=== PATIENT | female | born 1940 | race Caucasian/White ===

== ENCOUNTER 2018-09-03 10:21 | Inpatient (IN) | payer MEDICARE, OTHER ==
[2018-09-03] MEDS ORDERED: Metoprolol Tartrate 25 MG Tab PO ONE (10:40)
[2018-09-03] MEDS ORDERED: HYDROmorphone 0.5 MG/0.5 ML Syringe IVPUSH ONE ×4 (10:47→12:39)
--- NOTE | 2018-09-03 10:53 | EDM.PDOC ---
ED HPI GENERAL MEDICAL PROBLEM - General Chief Complaint: Abdominal Pain Stated Complaint: STOMACH PAIN Time Seen by Provider: 09/03/18 10:35 Source of Information: Reports: Patient, Old Records, RN History Limitations: Reports: No Limitations - History of Present Illness INITIAL COMMENTS - FREE TEXT/NARRATIVE: 77 yo female presents with fairly constant low abd pain for the past ~36 hrs. No fever or nausea. Pain is worse with movement. No hx of any abdominal surgeries. Has tried Peptobismol and LEE ANN's without relief. No urinary sx's. Got partial relief with IV analgesia in the ambulance. Onset: Sudden Onset Date: 09/02/18 Duration: Day(s): (1.5), Constant Location: Reports: Abdomen Quality: Reports: Ache Severity: Severe Improves with: Reports: Medication Worsens with: Reports: Movement Context: Reports: Other (See HPI) Associated Symptoms: Reports: Fever/Chills (chills, no fever). Denies: Nausea/ Vomiting Treatments KNIFER UP: Reports: Other (see below) (antacids with no relief) abd Pain Score (Numeric/FACES): 7 - Related Data Allergies Allergy/AdvReac Type Severity Reaction Status Date / Time naproxen [From Aleve] Allergy Nausea and Verified 09/03/18 10:51 Vomiting Home Meds: Home Meds Alendronate Sodium 70 mg PO DAILY 09/03/18 [History] Benazepril [Lotensin] 40 mg PO ASDIRECTED 09/03/18 [History] Citalopram [Citalopram HBr] 20 mg PO DAILY 09/03/18 [History] Metoprolol Tartrate 25 mg PO BID 09/03/18 [History] Past Medical History Cardiovascular History: Reports: Hypertension 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 Denies: Fever HEENT: Reports: No Symptoms Respiratory: Reports: No Symptoms Cardiovascular: Reports: No Symptoms Endocrine: Reports: No Symptoms GI/Abdominal: Reports: Abdominal Pain. Denies: Black Stool, Bloody Stool, Constipation, Diarrhea, Distension, Hematemesis, Hematochezia, Melena, Vomiting : Reports: No Symptoms Musculoskeletal: Reports: No Symptoms Skin: Reports: No Symptoms Neurological: Reports: No Symptoms ED EXAM, GI/ABD - Physical Exam Exam: See Below Exam Limited By: No Limitations General Appearance: Alert, WD/WN, Mild Distress, Thin Eyes: Bilateral: Normal Appearance Ears: Normal External Exam, Normal Canal, Hearing Grossly Normal Nose: Normal Inspection, No Blood Throat/Mouth: Normal Inspection, Normal Lips, Normal Oropharynx, Normal Voice, No Airway Compromise Head: Atraumatic, Normocephalic Neck: Normal Inspection Respiratory/Chest: No Respiratory Distress, Lungs Clear, Normal Breath Sounds, No Accessory Muscle Use Cardiovascular: Regular Rate, Rhythm, No Edema GI/Abdominal Exam: Soft, Tender (lower abdominal tenderness.), Abnormal Bowel Sounds (decreased). No: Non-Tender, No Distention, Distended, Guarding, Rigid, Rebound Back Exam: Normal Inspection. No: CVA Tenderness (R), CVA Tenderness (L) Extremities: Normal Inspection, Normal Range of Motion, Non-Tender, No Pedal Edema Neurological: Alert, Oriented, CN II-XII Intact, Normal Cognition, No Motor/ Sensory Deficits Psychiatric: Normal Affect, Normal Mood Skin Exam: Warm, Dry, Intact, Normal Color, No Rash Course - Vital Signs Text/Narrative:: Dr. Estrada called @ 12:35p Dr. Cunningham called @ 12:44p Last Recorded V/S: Last Vital Signs Temp 35.8 C 09/03/18 10:27 Pulse 106 H 09/03/18 11:00 Resp 16 09/03/18 11:12 BP 141/64 H 09/03/18 11:12 Pulse Ox 98 09/03/18 11:12 - Orders/Labs/Meds Orders: Active Orders 24 hr Category Date Time Status Abdomen Pelvis wo Cont [CT] Stat Exams 09/03/18 11:19 Taken CULTURE BLOOD [BC] Stat Lab 09/03/18 12:10 Received CULTURE BLOOD [BC] Stat Lab 09/03/18 12:20 Received Piperacillin/Tazobactam [Zosyn] 4.5 gm Med 09/03/18 12:37 Ordered Sodium Chloride 0.9% [Normal Saline] 100 ml IV ONETIME Labs: Laboratory Tests 09/03/18 09/03/18 09/03/18 Range/Units 10:57 10:57 12:10 WBC 1.9 L (4.5-11.0) K/uL RBC 3.19 L (3.30-5.50) M/uL Hgb 11.2 L (12.0-15.0) g/dL Hct 33.0 L (36.0-48.0) % MCV 103 H (80-98) fL MCH 35 H (27-31) pg MCHC 34 (32-36) % Plt Count 285 (150-400) K/uL Sodium 130 L (140-148) mmol/L Potassium 3.9 (3.6-5.2) mmol/L Chloride 91 L (100-108) mmol/L Carbon Dioxide 24 (21-32) mmol/L Anion Gap 18.9 H (5.0-14.0) mmol/L BUN 24 H (7-18) mg/dL Creatinine 1.6 H (0.6-1.0) mg/dL Est Cr Clr Drug Dosing 20.75 mL/min Estimated GFR (MDRD) 31 L (>60) Glucose 111 H (74-106) mg/dL Lactic Acid 4.3 H (0.7-2.1) mmol/L Calcium 9.5 (8.5-10.1) mg/dL C-Reactive Protein 27.96 H (0.0-0.3) mg/dL Meds: Medications Discontinued Medications Generic Name Dose Route Start Last Admin Trade Name Freq PRN Reason Stop Dose Admin Benazepril HCl 40 mg 09/03/18 10:40 09/03/18 11:00 Lotensin PO 09/03/18 10:41 40 mg ONETIME ONE Administration Hydromorphone HCl 0.5 mg 09/03/18 10:47 09/03/18 11:00 Dilaudid IVPUSH 09/03/18 10:48 0.5 mg ONETIME ONE Administration Hydromorphone HCl 0.5 mg 09/03/18 11:21 09/03/18 11:25 Dilaudid IVPUSH 09/03/18 11:22 0.5 mg ONETIME ONE Administration Hydromorphone HCl 0.5 mg 09/03/18 12:09 09/03/18 12:12 Dilaudid IVPUSH 09/03/18 12:10 0.5 mg ONETIME ONE Administration Sodium Chloride 1,000 mls @ 1,000 mls/hr 09/03/18 11:18 09/03/18 11:25 Normal Saline IV 09/03/18 12:17 1,000 mls/hr .BOLUS ONE Administration Metoprolol Tartrate 25 mg 09/03/18 10:40 09/03/18 11:00 Lopressor PO 09/03/18 10:41 25 mg ONETIME ONE Administration - Radiology Interpretation Free Text/Narrative:: CT abd/pelvis with IV contrast-small amt of free air LUQ, stranding diffusely. CT Results Date: 09/03/18 Departure - Departure Time of Disposition: 13:00 Disposition: Admitted As Inpatient 65 Condition: Serious Clinical Impression: Hyponatremia Diverticulitis of colon with perforation Qualifiers: Diverticulitis bleeding: without bleeding Qualified Code(s): K57.20 - Diverticulitis of large intestine with perforation and abscess without bleeding Sepsis Qualifiers: Sepsis type: sepsis due to unspecified organism Qualified Code(s): A41.9 - Sepsis, unspecified organism Leukopenia Qualifiers: Leukopenia type: neutropenia Neutropenia type: other Qualified Code(s): D70.8 - Other neutropenia - Discharge Information *PRESCRIPTION DRUG MONITORING PROGRAM REVIEWED*: No *COPY OF PRESCRIPTION DRUG MONITORING REPORT IN PATIENT ESTIVEN: No Referrals: PCP,None [Primary Care Provider] - Forms: ED Department Discharge - My Orders Last 24 Hours: My Active Orders 09/03/18 11:19 Abdomen Pelvis wo Cont [CT] Stat 09/03/18 12:10 CULTURE BLOOD [BC] Stat 09/03/18 12:20 CULTURE BLOOD [BC] Stat 09/03/18 12:37 Piperacillin/Tazobactam [Zosyn] 4.5 gm Sodium Chloride 0.9% [Normal Saline] 100 ml IV ONETIME - Assessment/Plan Last 24 Hours: My Active Orders 09/03/18 11:19 Abdomen Pelvis wo Cont [CT] Stat 09/03/18 12:10 CULTURE BLOOD [BC] Stat 09/03/18 12:20 CULTURE BLOOD [BC] Stat 09/03/18 12:37 Piperacillin/Tazobactam [Zosyn] 4.5 gm Sodium Chloride 0.9% [Normal Saline] 100 ml IV ONETIME
[2018-09-03] MEDS ORDERED: Sodium Chloride 0.9% 1,000 ML IV ONE (11:18)
[2018-09-03] MEDS ORDERED: Piperacillin/Tazobactam 4.5 GM in Sodium Chloride 0.9% 100 ML IV ONE (12:37)
--- NOTE | 2018-09-03 12:44 | CRLCT ---
Examination / Procedure: CT Abdomen/Pelvis Indication: Lower abdominal pain. Comparison: None available Technique: Contiguous axial CT images of the abdomen and pelvis were acquired without IV contrast. Coronal and sagittal reformations generated and reviewed. Findings: Small volume ascites. There is a few foci of free air are identified in the left upper quadrant (axial images 35-42). A few additional foci of free air are noted in the mesentery anterior to the duodenum (images 65-70). There is diverticulosis noted in the sigmoid colon. There is extensive fat stranding in the pelvis with wall thickening of the rectum and sigmoid colon (especially images 109-112). In the cul-de-sac (axial image 118 and coronal image 47), there is a small fluid collection noted. This could be a small amount of ascites. An abscess is not excluded. No pneumatosis is identified. No portal venous gas. Lack of IV contrast limits evaluation of solid abdominal organs. Liver, gallbladder, spleen, pancreas, adrenal glands, and kidneys are unremarkable for noncontrast technique. Extensive aortic atherosclerosis without aneurysm. No definite adenopathy by CT size criteria. Presence of ascites limits evaluation for subtle mesenteric lymphadenopathy. Urinary bladder is unremarkable. Uterus is normal. Limited images of the lung bases demonstrate mild bibasilar atelectasis. A few old fractures are noted in the 12, 11, and 10 posterior right ribs. There is a mild compression deformity of the T12 vertebral body which appears to be chronic. L4-L5 and L5-S1 degenerative disc disease. No acute or aggressive osseous abnormality. Impression: 1. Multiple foci of pneumoperitoneum and small volume free fluid. This is concerning for a perforated viscus. The site of perforation is not clearly identified. There is some bowel wall thickening in the rectum/sigmoid colon suggesting that this could be due to a perforated diverticulitis. 2. Small collection of fluid in the cul-de-sac. While this could be ascites, an abscess is another consideration especially considering concern for perforated diverticulitis. 3. Free air discussed with Dr. Blood at 1235. Please note that all CT scans at this facility use dose modulation, iterative reconstruction, and/or weight-based dosing when appropriate to reduce radiation dose to as low as reasonably achievable. Dictated by Kevin Cerna MD @ Sep 03 2018 12:27PM Signed by Dr. Kevin Cerna @ Sep 03 2018 12:42PM
[2018-09-03] MEDS ORDERED: HYDROmorphone 1 MG/ML Syringe IVPUSH ONE (12:56)
[2018-09-03] MEDS ORDERED: Piperacillin/Tazobactam/Dext 4.5 GM in Premix Bag 1 BAG IV ONE (13:00)
[2018-09-03] MEDS ORDERED: Sodium Chloride 0.9% 1,000 ML IV SCH (13:00)
[2018-09-03] MEDS ORDERED: fentaNYL 100 MCG/2 ML SDV IVPUSH ONE (13:56)
--- NOTE | 2018-09-03 14:09 | PCM.HP ---
H&P History of Present Illness - General Date of Service: 09/03/18 Admit Problem/Dx: Admission Diagnosis/Problem Admission Diagnosis/Problem Perforation of intestine Source of Information: Patient, Family, Provider History Limitations: Reports: No Limitations - History of Present Illness Initial Comments - Free Text/Narative: Tina presents to the emergency room via ambulance with abdominal pain. She reports 36 hours of progressive continuous achy lower abdominal pain. Initially started out as fairly mild but has progressed to the point that it's severe. The pain radiates throughout her abdomen. It is worse with any sort of movement and was worse when the ambulance was hitting bumps. She did try Tums and Pepto- Bismol without any relief. She has never had pain like this in the past. She reports associated fevers as well as shaking chills. She has had nausea and dry heaving. She's had diarrhea for the past day and a half. She hasn't had anything to eat for 2 days. No complaints of chest pain or shortness of breath. No obvious sick contacts. No history of diverticulitis. She has had surgery in the past has never had difficulty with anesthesia. Workup in the emergency room was suggestive of sepsis with tachycardia, acute kidney injury and CT scan suggested perforated abdominal viscus. She will be admitted to the intensive care unit with surgery planned for later in the day. 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: Reports: Chronic Constipation 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 Pertinent positives and negatives are noted in the history of present illness. All other systems were reviewed and were negative except as noted. Exam - Exam Exam: See Below - Vital Signs Vital Signs: Last Vital Signs Temp 35.8 C 09/03/18 10:27 Pulse 107 H 09/03/18 13:09 Resp 18 09/03/18 13:09 BP 93/54 L 09/03/18 13:09 Pulse Ox 92 L 09/03/18 13:09 Weight: 45.359 kg - Exam Quality Assessment: Supplemental Oxygen General: Alert, Oriented, Cooperative, Mild Distress HEENT: Conjunctiva Clear. No: Mucosa Moist & Glide (dry), Scleral Icterus Neck: Supple, Trachea Midline. No: Lymphadenopathy Lungs: Clear to Auscultation, Normal Respiratory Effort Cardiovascular: Regular Rate, Regular Rhythm. No: Systolic Murmur GI/Abdominal Exam: Guarding, Tender, Abnormal Bowel Sounds (hypoactive). No: Distended Back Exam: Normal Inspection, Full Range of Motion Extremities: No Pedal Edema. No: Increased Warmth Peripheral Pulses: 2+: Dorsalis Pedis (L), Dorsalis Pedis (R) Skin: Warm, Dry Neuro Extensive - Mental Status: Alert, Oriented x3, Nl Response to Commands Neuro Extensive - Motor, Sensory, Reflexes: No: Dysarthria, Abnormal Motor, Tremor Psychiatric: Alert, Normal Affect - Patient Data Lab Results Last 24 hrs: Laboratory Results - last 24 hr 09/03/18 09/03/18 09/03/18 Range/Units 10:57 10:57 12:10 WBC 1.9 L (4.5-11.0) K/uL RBC 3.19 L (3.30-5.50) M/uL Hgb 11.2 L (12.0-15.0) g/dL Hct 33.0 L (36.0-48.0) % MCV 103 H (80-98) fL MCH 35 H (27-31) pg MCHC 34 (32-36) % Plt Count 285 (150-400) K/uL Sodium 130 L (140-148) mmol/L Potassium 3.9 (3.6-5.2) mmol/L Chloride 91 L (100-108) mmol/L Carbon Dioxide 24 (21-32) mmol/L Anion Gap 18.9 H (5.0-14.0) mmol/L BUN 24 H (7-18) mg/dL Creatinine 1.6 H (0.6-1.0) mg/dL Est Cr Clr Drug Dosing 20.75 mL/min Estimated GFR (MDRD) 31 L (>60) Glucose 111 H (74-106) mg/dL Lactic Acid 4.3 H (0.7-2.1) mmol/L Calcium 9.5 (8.5-10.1) mg/dL C-Reactive Protein 27.96 H (0.0-0.3) mg/dL Result Diagrams: 09/03/18 10:57 09/03/18 10:57 Joseph Results Last 24 hrs: Microbiology 09/03/18 10:47 Stool Occult Blood (JOSEPH) - Final Stool / Feces - Stool, Formed NEGATIVE OCCULT BLOOD Imaging Impressions Last 24 hrs: CT scan of the abdomen and pelvis - these images were personally reviewed - there is evidence for pneumoperitoneum with multiple air bubbles noted in the left upper quadrant area. There is stranding around the rectum and sigmoid colon in the left lower abdomen. There is a small amount of fluid in the cul-de- sac. *Q Meaningful Use (ADM) - VTE *Q VTE Pharmacological Contraindications *Q: Patient Scheduled Surgery - VTE Risk Assess *Q Each Risk Factor Represents 1 Point: None Total Score 1 Point Risk Factors: 0 Each Risk Factor Represents 2 Points: Malignancy (present or previous), Major surgery greater than 45 minutes Total Score 2 Point Risk Factors: 4 Each Risk Factor Represents 3 Points: Age 75 Years or Greater Total Score 3 Point Risk Factors: 3 Each Risk Factor Represents 5 Points: None Total Score 5 Point Risk Factors: 0 Venous Thromboembolism Risk Factor Score *Q: 7 - Problem List (1) Diverticulitis of colon with perforation SNOMED Code(s): 16585450 ICD Code: K57.20 - DVTRCLI OF LG INT W PERFORATION AND ABSCESS W/O BLEEDING Status: Acute Current Visit: Yes Qualifiers: Diverticulitis bleeding: without bleeding Qualified Code(s): K57.20 - Diverticulitis of large intestine with perforation and abscess without bleeding (2) Sepsis SNOMED Code(s): 68490060 ICD Code: A41.9 - SEPSIS, UNSPECIFIED ORGANISM Status: Acute Current Visit: Yes Qualifiers: Sepsis type: sepsis due to unspecified organism Qualified Code(s): A41.9 - Sepsis, unspecified organism (3) Acute kidney injury SNOMED Code(s): 29504688 ICD Code: N17.9 - ACUTE KIDNEY FAILURE, UNSPECIFIED Status: Acute Current Visit: Yes (4) Leukopenia SNOMED Code(s): 40676946, 673270999 ICD Code: D72.819 - DECREASED WHITE BLOOD CELL COUNT, UNSPECIFIED Status: Acute Current Visit: Yes Qualifiers: Leukopenia type: neutropenia Neutropenia type: other Qualified Code(s): D70.8 - Other neutropenia Problem List Initiated/Reviewed/Updated: Yes Orders Last 24hrs: Active Orders 24 hr Category Date Time Status Patient Status Manage Transfer [TRANSFER] Routine ADT 09/03/18 13:57 Ordered CULTURE BLOOD [BC] Stat Lab 09/03/18 12:10 Received CULTURE BLOOD [BC] Stat Lab 09/03/18 12:20 Received UA W/MICROSCOPIC [URIN] Stat Lab 09/03/18 13:14 Ordered Sodium Chloride 0.9% [Normal Saline] 1,000 ml Med 09/03/18 13:00 Active IV ASDIRECTED Resuscitation Status Routine Resus Stat 09/03/18 13:59 Ordered Medication Orders Sodium Chloride (Normal Saline) 1,000 mls @ 500 mls/hr IV ASDIRECTED NAHED Last Admin: 09/03/18 13:00 Dose: 500 mls/hr Assessment/Plan Comment:: ASSESSMENT AND PLAN - Perforated abdominal viscus with sepsis - perforated diverticulitis is suspected. Evidence for sepsis includes tachycardia, lactic acidosis and acute kidney injury. With the ruptured viscus somewhat urgent surgery will be required. She has received her 30 mL/kg bolus of IV fluids and has received broad-spectrum antibiotics. Cultures have been obtained. -Continue Pip/Tazo -Continue IV fluids -Repeat lactic acid level -Surgical consultation for intervention later this afternoon -Pain control with fentanyl -Follow-up cultures Acute kidney injury - likely related to sepsis and should improve with IV fluids. -Repeat labs in the morning Leukopenia - probably related to sepsis. 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 Maintenance issues - - DVT prophylaxis - mechanical - GI prophylaxis - PPI - Nutrition - nothing by mouth - Rubin catheter - will be placed for strict intake and output monitoring and a critical patient CODE STATUS - full code Admission justification - This patient will be admitted for inpatient services and is medically appropriate meeting medical necessity for inpatient admission as outlined in my documentation. I reasonably expect the patient will require inpatient services that span a period time over 2 midnights. I reasonably expect this patient to be discharged or transferred within 96 hours [address] admission to the [facility]. Disposition - I would anticipate discharge home after the hospital stay Primary care physician - Suzanne Cunningham M.D.
[2018-09-03] MEDS ORDERED: Acetaminophen 650 MG Supp RECTAL PRN (14:37)
[2018-09-03] MEDS ORDERED: Albuterol 0.083% 2.5 MG/3 ML Neb Soln NEB PRN (14:37)
[2018-09-03] MEDS ORDERED: Ondansetron 4 MG Tab.DIS PO PRN (14:37)
[2018-09-03] MEDS ORDERED: Acetaminophen 325 MG Tab PO PRN (14:37)
[2018-09-03] MEDS ORDERED: LORazepam 2 MG/ML SDV IVPUSH PRN (14:37)
[2018-09-03] MEDS ORDERED: Lactated Ringers 1,000 ML IV SCH ×2 (14:37→22:00)
[2018-09-03] MEDS ORDERED: Ondansetron 4 MG/2 ML SDV IV PRN (14:37)
[2018-09-03] MEDS ORDERED: fentaNYL 100 MCG/2 ML SDV IVPUSH PRN (14:37)
[2018-09-03] MEDS ORDERED: Succinylcholine 200 MG/10 ML MDV ONE (14:40)
[2018-09-03] MEDS ORDERED: Ondansetron 4 MG/2 ML SDV ONE (14:40)
[2018-09-03] MEDS ORDERED: fentaNYL 250 MCG/5 ML SDV ONE (14:40)
[2018-09-03] MEDS ORDERED: Glycopyrrolate 0.2 MG/ML 5 ML MDV ONE (14:40)
[2018-09-03] MEDS ORDERED: Propofol 200 MG/20 ML SDV ONE (14:40)
[2018-09-03] MEDS ORDERED: Rocuronium 50 MG/5 ML Vial ONE (14:40)
[2018-09-03] MEDS ORDERED: Dexamethasone 4 MG/ML SDV ONE (14:40)
[2018-09-03] MEDS ORDERED: Neostigmine Methylsulfate 1 MG/ML 5 ML Syringe ONE (14:40)
[2018-09-03] MEDS ORDERED: Aztreonam 2 GM in Sodium Chloride 0.9% 100 ML IV ONE (15:00)
[2018-09-03] MEDS ORDERED: Naloxone 0.4 MG/ML SDV IV PRN (15:15)
[2018-09-03] MEDS: HYDROmorphone/Normal Saline 15 MG/30 ML PCA IV PRN (15:28)
[2018-09-03] MEDS ORDERED: Pantoprazole 40 MG Vial IV SCH (16:00)
[2018-09-03] MEDS ORDERED: Meropenem 500 MG in Sodium Chloride 0.9% 50 ML IV ONE (17:00)
[2018-09-03] MEDS ORDERED: Albuterol/Ipratropium 3.0-0.5 MG/3 ML Neb Soln INH ONE (17:00)
[2018-09-03] MEDS ORDERED: Ropivacaine 22 ML, dexAMETHasone 8 MG, EPINEPHrine 0.4 MG, Sodium Chloride 0.9% 55.6 ML NERVRT SCH ×4 (17:00)
[2018-09-03] MEDS ORDERED: Meropenem 500 MG SDV ONE ×3 (17:53→18:17)
[2018-09-03] MEDS ORDERED: Heparin Sodium 5,000 Units/ML Vial ONE (18:31)
[2018-09-03] MEDS ORDERED: Sodium Chloride 0.9% 500 ML ONE (18:32)
[2018-09-03] MEDS ORDERED: Piperacillin/Tazobactam 3.375 GM in Sodium Chloride 0.9% 50 ML IV SCH (20:00)
[2018-09-03] MEDS ORDERED: Piperacillin/Tazobactam/Dext 3.375 GM in Premix Bag 1 BAG IV SCH (20:00)
--- NOTE | 2018-09-03 21:19 | CRLCR ---
INDICATION: assess ett [facility] INDICATION: Assess ET tube position TECHNIQUE: Chest 1 view. 8:44 p.m. COMPARISON: 11:51 a.m. FINDINGS: Cardiovascular and mediastinum: Heart size and vasculature are normal in caliber and appearance. Mediastinum is within normal limits. Lungs and pleural space: Lungs are clear. No sign of infiltrate or mass. Small bilateral pleural effusions. No pneumothorax. Bones and soft tissues: No significant findings. Lines and tubes: ET tube in place with the tip 2.5 centimeters from the pham. Enteric tube courses past the GE junction, the tip is not seen. IMPRESSION: ETT in place with the tip 2.5 centimeters from the pham. Small bilateral pleural effusions. Dictated by Vlad Kline MD @ 09/03/2018 9:17:33 PM Dictated by: Vlad Kline MD @ 09/03/2018 21:17:52 (Electronically Signed)
[2018-09-03] MEDS ORDERED: hydrOXYzine HCl 100 MG/2 ML SDV IM PRN (21:38)
[2018-09-03] MEDS ORDERED: Aztreonam/Dextrose-Water 1 GM in Premix Bag 1 BAG IV SCH (22:00)
[2018-09-03] MEDS ORDERED: Sodium Chloride 0.9% 50 ML ONE (22:00)
[2018-09-03] MEDS: Aztreonam/Dextrose-Water 1 GM in Premix Bag 1 BAG IV SCH (22:18)
[2018-09-03] MEDS ORDERED: Dextrose 5%-Lactated Ringers 1,000 ML IV PRN (22:41)
[2018-09-03] MEDS: Meropenem 500 MG in Sodium Chloride 0.9% 50 ML IV SCH (22:50)
[2018-09-03] MEDS: Pantoprazole 40 MG Vial IV SCH (22:50)
[2018-09-04] MEDS ORDERED: Lactated Ringers 500 ML IV SCH ×4 (01:15→16:45)
[2018-09-04] MEDS: Dextrose 5%-Lactated Ringers 1,000 ML IV SCH (04:19)
--- NOTE | 2018-09-04 05:21 | CRLCR ---
INDICATION: Intubation TECHNIQUE: Chest 1 views COMPARISON: Chest x-ray 09/03/2018 FINDINGS: Cardiovascular and mediastinum: Normal heart size with atherosclerotic calcification. Endotracheal tube at the mid to distal trachea. Nasogastric tube extends below the hemidiaphragm. Lungs and pleural spaces: Trace bilateral pleural fluid with minimal bibasilar airspace disease. Bones and soft tissues: Old right-sided rib fractures. IMPRESSION: 1. Endotracheal tube at the mid to distal trachea. Nasogastric tube extends below the hemidiaphragm. 2. Trace bilateral pleural effusions with minimal bibasilar airspace disease. Dictated by Keven Cronin MD @ Sep 04 2018 5:14AM Signed by Dr. Keven Cronin @ Sep 04 2018 5:19AM
[2018-09-04] MEDS: Meropenem 500 MG in Sodium Chloride 0.9% 50 ML IV SCH ×3 (05:23→21:09)
[2018-09-04] MEDS: Aztreonam/Dextrose-Water 1 GM in Premix Bag 1 BAG IV SCH ×3 (07:30→17:05)
--- NOTE | 2018-09-04 09:07 | PCM.PN ---
- General Info Date of Service: 09/04/18 Subjective Update: The patient underwent exploratory laparotomy and had a sigmoid colon resection and colostomy formation last night for perforated diverticulitis. She remained intubated overnight and is alert and interactive but disoriented. She appears to be uncomfortable with abdominal pain. She did not have fevers overnight. Gram stain from the fluid sampled from her abdomen has a few gram-positive cocci and gram-negative rods. She is currently requiring minimal ventilatory support. She is mildly tachycardic. Blood pressure stable. Functional Status: Reports: Pain Controlled - Review of Systems General: Reports: Other (intubated ). Denies: Fever - Patient Data Vitals - Most Recent: Last Vital Signs Temp 37.2 C 09/04/18 08:00 Pulse 113 H 09/04/18 08:00 Resp 14 09/04/18 08:00 BP 108/39 L 09/04/18 08:00 Pulse Ox 97 09/04/18 08:00 Weight - Most Recent: 45.359 kg I&O - Last 24 Hours: Intake & Output 09/03/18 09/04/18 09/04/18 22:59 06:59 14:59 Intake Total 1200 2810 Output Total 125 135 25 Balance 1075 2675 -25 Lab Results Last 24 Hours: Laboratory Results - last 24 hr 09/03/18 09/03/18 09/03/18 Range/Units 10:57 10:57 12:10 WBC 1.9 L (4.5-11.0) K/uL RBC 3.19 L (3.30-5.50) M/uL Hgb 11.2 L (12.0-15.0) g/dL Hct 33.0 L (36.0-48.0) % MCV 103 H (80-98) fL MCH 35 H (27-31) pg MCHC 34 (32-36) % Plt Count 285 (150-400) K/uL Puncture Site ABG pH (7.350-7.450) ABG pCO2 (35.0-42.0) mmHg ABG pO2 (75.0-100.0) mmHg ABG HCO3 (22.0-26.0) mmol/L ABG Total CO2 (21.0-25.0) mmol/L ABG O2 Saturation (95.0-98.0) % ABG O2 Content (15.0-23.0) %vol ABG Base Excess mm/L ABG Hemoglobin (12.0-16.0) g/dL ABG Oxyhemoglobin % ABG Carboxyhemoglobin (0.0-1.6) % ABG Methemoglobin % Woody Test O2 Delivery Device Oxygen Flow Rate L Sodium 130 L (140-148) mmol/L Potassium 3.9 (3.6-5.2) mmol/L Chloride 91 L (100-108) mmol/L Carbon Dioxide 24 (21-32) mmol/L Anion Gap 18.9 H (5.0-14.0) mmol/L BUN 24 H (7-18) mg/dL Creatinine 1.6 H (0.6-1.0) mg/dL Est Cr Clr Drug Dosing 20.75 mL/min Estimated GFR (MDRD) 31 L (>60) Glucose 111 H (74-106) mg/dL Lactic Acid 4.3 H (0.7-2.1) mmol/L Calcium 9.5 (8.5-10.1) mg/dL Phosphorus (2.5-4.9) mg/dL Magnesium (1.8-2.4) mg/dL Total Bilirubin (0.2-1.0) mg/dL Direct Bilirubin (0.0-0.2) mg/dL Indirect Bilirubin AST (15-37) U/L ALT (12-78) U/L Alkaline Phosphatase (46-116) U/L Lactate Dehydrogenase (82-234) U/L C-Reactive Protein 27.96 H (0.0-0.3) mg/dL NT-Pro-B Natriuret Pep (5-450) pg/mL Total Protein (6.4-8.2) g/dL Albumin (3.4-5.0) g/dL Globulin (2.3-3.5) g/dL Albumin/Globulin Ratio (1.2-2.2) 09/03/18 09/03/18 09/03/18 Range/Units 15:54 20:40 22:00 WBC (4.5-11.0) K/uL RBC (3.30-5.50) M/uL Hgb (12.0-15.0) g/dL Hct (36.0-48.0) % MCV (80-98) fL MCH (27-31) pg MCHC (32-36) % Plt Count (150-400) K/uL Puncture Site A-line ABG pH 7.331 L (7.350-7.450) ABG pCO2 39.2 (35.0-42.0) mmHg ABG pO2 103.0 H (75.0-100.0) mmHg ABG HCO3 20.2 L (22.0-26.0) mmol/L ABG Total CO2 18.7 L (21.0-25.0) mmol/L ABG O2 Saturation 97.0 (95.0-98.0) % ABG O2 Content 15.1 (15.0-23.0) %vol ABG Base Excess -4.8 mm/L ABG Hemoglobin 11.1 L (12.0-16.0) g/dL ABG Oxyhemoglobin 95.9 % ABG Carboxyhemoglobin 0.6 (0.0-1.6) % ABG Methemoglobin 0.5 % Woody Test Passed O2 Delivery Device Ventilator Oxygen Flow Rate L Sodium (140-148) mmol/L Potassium (3.6-5.2) mmol/L Chloride (100-108) mmol/L Carbon Dioxide (21-32) mmol/L Anion Gap (5.0-14.0) mmol/L BUN (7-18) mg/dL Creatinine (0.6-1.0) mg/dL Est Cr Clr Drug Dosing mL/min Estimated GFR (MDRD) (>60) Glucose (74-106) mg/dL Lactic Acid 2.4 H 2.0 (0.7-2.1) mmol/L Calcium (8.5-10.1) mg/dL Phosphorus (2.5-4.9) mg/dL Magnesium (1.8-2.4) mg/dL Total Bilirubin (0.2-1.0) mg/dL Direct Bilirubin (0.0-0.2) mg/dL Indirect Bilirubin AST (15-37) U/L ALT (12-78) U/L Alkaline Phosphatase (46-116) U/L Lactate Dehydrogenase (82-234) U/L C-Reactive Protein (0.0-0.3) mg/dL NT-Pro-B Natriuret Pep (5-450) pg/mL Total Protein (6.4-8.2) g/dL Albumin (3.4-5.0) g/dL Globulin (2.3-3.5) g/dL Albumin/Globulin Ratio (1.2-2.2) 09/04/18 09/04/18 09/04/18 Range/Units 04:59 04:59 04:59 WBC 2.9 L (4.5-11.0) K/uL RBC 2.65 L (3.30-5.50) M/uL Hgb 9.3 L (12.0-15.0) g/dL Hct 27.6 L (36.0-48.0) % MCV 104 H (80-98) fL MCH 35 H (27-31) pg MCHC 34 (32-36) % Plt Count 244 (150-400) K/uL Puncture Site ABG pH (7.350-7.450) ABG pCO2 (35.0-42.0) mmHg ABG pO2 (75.0-100.0) mmHg ABG HCO3 (22.0-26.0) mmol/L ABG Total CO2 (21.0-25.0) mmol/L ABG O2 Saturation (95.0-98.0) % ABG O2 Content (15.0-23.0) %vol ABG Base Excess mm/L ABG Hemoglobin (12.0-16.0) g/dL ABG Oxyhemoglobin % ABG Carboxyhemoglobin (0.0-1.6) % ABG Methemoglobin % Woody Test O2 Delivery Device Oxygen Flow Rate L Sodium 133 L (140-148) mmol/L Potassium 3.7 (3.6-5.2) mmol/L Chloride 101 (100-108) mmol/L Carbon Dioxide 20 L (21-32) mmol/L Anion Gap 15.7 H (5.0-14.0) mmol/L BUN 30 H (7-18) mg/dL Creatinine 1.6 H (0.6-1.0) mg/dL Est Cr Clr Drug Dosing 20.75 mL/min Estimated GFR (MDRD) 31 L (>60) Glucose 97 (74-106) mg/dL Lactic Acid (0.7-2.1) mmol/L Calcium 7.8 L D (8.5-10.1) mg/dL Phosphorus (2.5-4.9) mg/dL Magnesium (1.8-2.4) mg/dL Total Bilirubin (0.2-1.0) mg/dL Direct Bilirubin (0.0-0.2) mg/dL Indirect Bilirubin AST (15-37) U/L ALT (12-78) U/L Alkaline Phosphatase (46-116) U/L Lactate Dehydrogenase 131 (82-234) U/L C-Reactive Protein (0.0-0.3) mg/dL NT-Pro-B Natriuret Pep (5-450) pg/mL Total Protein (6.4-8.2) g/dL Albumin (3.4-5.0) g/dL Globulin (2.3-3.5) g/dL Albumin/Globulin Ratio (1.2-2.2) 09/04/18 09/04/18 09/04/18 Range/Units 04:59 05:54 05:55 WBC (4.5-11.0) K/uL RBC (3.30-5.50) M/uL Hgb (12.0-15.0) g/dL Hct (36.0-48.0) % MCV (80-98) fL MCH (27-31) pg MCHC (32-36) % Plt Count (150-400) K/uL Puncture Site A-line ABG pH 7.365 (7.350-7.450) ABG pCO2 36.5 (35.0-42.0) mmHg ABG pO2 91.2 (75.0-100.0) mmHg ABG HCO3 20.4 L (22.0-26.0) mmol/L ABG Total CO2 18.7 L (21.0-25.0) mmol/L ABG O2 Saturation 96.7 (95.0-98.0) % ABG O2 Content 15.6 (15.0-23.0) %vol ABG Base Excess -3.9 mm/L ABG Hemoglobin 11.5 L (12.0-16.0) g/dL ABG Oxyhemoglobin 95.5 % ABG Carboxyhemoglobin 0.5 (0.0-1.6) % ABG Methemoglobin 0.7 % Woody Test A-line O2 Delivery Device Ventilator Oxygen Flow Rate L Sodium (140-148) mmol/L Potassium (3.6-5.2) mmol/L Chloride (100-108) mmol/L Carbon Dioxide (21-32) mmol/L Anion Gap (5.0-14.0) mmol/L BUN (7-18) mg/dL Creatinine (0.6-1.0) mg/dL Est Cr Clr Drug Dosing mL/min Estimated GFR (MDRD) (>60) Glucose (74-106) mg/dL Lactic Acid (0.7-2.1) mmol/L Calcium (8.5-10.1) mg/dL Phosphorus 3.1 (2.5-4.9) mg/dL Magnesium 1.0 L (1.8-2.4) mg/dL Total Bilirubin 0.4 (0.2-1.0) mg/dL Direct Bilirubin 0.16 (0.0-0.2) mg/dL Indirect Bilirubin 0.24 AST 42 H (15-37) U/L ALT 18 (12-78) U/L Alkaline Phosphatase 64 (46-116) U/L Lactate Dehydrogenase (82-234) U/L C-Reactive Protein (0.0-0.3) mg/dL NT-Pro-B Natriuret Pep (5-450) pg/mL Total Protein 5.0 L (6.4-8.2) g/dL Albumin 1.7 L (3.4-5.0) g/dL Globulin 3.3 (2.3-3.5) g/dL Albumin/Globulin Ratio 0.5 L (1.2-2.2) 09/04/18 09/04/18 Range/Units 05:55 05:59 WBC (4.5-11.0) K/uL RBC (3.30-5.50) M/uL Hgb (12.0-15.0) g/dL Hct (36.0-48.0) % MCV (80-98) fL MCH (27-31) pg MCHC (32-36) % Plt Count (150-400) K/uL Puncture Site ABG pH (7.350-7.450) ABG pCO2 (35.0-42.0) mmHg ABG pO2 (75.0-100.0) mmHg ABG HCO3 (22.0-26.0) mmol/L ABG Total CO2 (21.0-25.0) mmol/L ABG O2 Saturation (95.0-98.0) % ABG O2 Content (15.0-23.0) %vol ABG Base Excess mm/L ABG Hemoglobin (12.0-16.0) g/dL ABG Oxyhemoglobin % ABG Carboxyhemoglobin (0.0-1.6) % ABG Methemoglobin % Woody Test O2 Delivery Device Oxygen Flow Rate L Sodium (140-148) mmol/L Potassium (3.6-5.2) mmol/L Chloride (100-108) mmol/L Carbon Dioxide (21-32) mmol/L Anion Gap (5.0-14.0) mmol/L BUN (7-18) mg/dL Creatinine (0.6-1.0) mg/dL Est Cr Clr Drug Dosing mL/min Estimated GFR (MDRD) (>60) Glucose (74-106) mg/dL Lactic Acid 3.0 H (0.7-2.1) mmol/L Calcium (8.5-10.1) mg/dL Phosphorus (2.5-4.9) mg/dL Magnesium (1.8-2.4) mg/dL Total Bilirubin (0.2-1.0) mg/dL Direct Bilirubin (0.0-0.2) mg/dL Indirect Bilirubin AST (15-37) U/L ALT (12-78) U/L Alkaline Phosphatase (46-116) U/L Lactate Dehydrogenase (82-234) U/L C-Reactive Protein (0.0-0.3) mg/dL NT-Pro-B Natriuret Pep 01788 H (5-450) pg/mL Total Protein (6.4-8.2) g/dL Albumin (3.4-5.0) g/dL Globulin (2.3-3.5) g/dL Albumin/Globulin Ratio (1.2-2.2) Joseph Results Last 24 Hours: Microbiology 09/03/18 18:31 Gram Stain - Final Peritoneal Fluid 09/03/18 18:31 Gram Stain - Final Peritoneal Fluid 09/03/18 10:47 Stool Occult Blood (JOSEPH) - Final Stool / Feces - Stool, Formed NEGATIVE OCCULT BLOOD Med Orders - Current: Current Medications Ropivacaine 22 ml/Dexamethasone 8 mg/Epinephrine HCl 0.4 mg/ Sodium Chloride 55.6 ml 0 ml NERVRT ASDIRECTED NAHED Hydromorphone HCl (Dilaudid Staff Pharmacist 15 Mg In Ns 30 Ml) 0 mg IV ASDIRECTED PRN; Protocol PRN Reason: [employer]OURCE [employer]IST 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 Last Admin: 09/03/18 15:28 Dose: 15 mg Hydroxyzine HCl (Vistaril) 50 mg IM Q4H PRN PRN Reason: Pain Meropenem 500 mg/ Sodium (Chloride) 50 mls @ 100 mls/hr IV Q8H [facility] Last Admin: 09/04/18 05:23 Dose: 100 mls/hr Dextrose/Lactated Ringer's (Dextrose 5%-Lactated Ringers) 1,000 mls @ 100 mls/ hr IV ASDIRECTED NAHED Last Admin: 09/04/18 04:19 Dose: 100 mls/hr Lactated Ringer's (Ringers, Lactated) 1,000 mls @ 100 mls/hr IV ASDIRECTED [facility] Last Admin: 09/04/18 04:20 Dose: 100 mls/hr Propofol (Diprivan 100 Ml) 100 mls @ 1.361 mls/hr IV TITRATE [facility]; Protocol Last Titration: 09/04/18 07:52 Dose: 14 mcg/kg/min, 3.81 mls/hr Lactated Ringer's (Ringers, Lactated) 500 mls @ 999 mls/hr IV .BOLUS [facility] Last Admin: 09/04/18 06:10 Dose: 999 mls/hr Aztreonam/Dextrose 1 gm/ (Premix) 50 mls @ 100 mls/hr IV Q8H [facility] Last Admin: 09/04/18 08:29 Dose: 100 mls/hr Naloxone HCl (Narcan) 0.1 mg IV ASDIRECTED PRN PRN Reason: decreased respiratory rate Pantoprazole Sodium (Protonix Iv) 40 mg IV Q24H [facility] Last Admin: 09/03/18 22:50 Dose: 40 mg Discontinued Medications Acetaminophen (Tylenol) 650 mg PO Q4H PRN PRN Reason: Pain (Mild 1-3)/fever Acetaminophen (Tylenol) 650 mg RECTAL Q4H PRN PRN Reason: Mild pain/fever Albuterol (Proventil Neb Soln) 2.5 mg NEB Q4H PRN PRN Reason: Shortness Of Breath/wheezing Albuterol/Ipratropium (Duoneb 3.0-0.5 Mg/3 Ml) 3 ml INH PREPRO ONE Stop: 09/03/18 17:01 Last Admin: 09/03/18 16:25 Dose: 3 ml Aztreonam (Azactam) Confirm Administered Dose 1 gm .ROUTE .STK-MED ONE Stop: 09/03/18 21:44 Last Admin: 09/03/18 22:15 Dose: Not Given Benazepril HCl (Lotensin) 40 mg PO ONETIME ONE Stop: 09/03/18 10:41 Last Admin: 09/03/18 11:00 Dose: 40 mg Ropivacaine 22 ml/Dexamethasone 8 mg/Epinephrine HCl 0.4 mg/ Sodium Chloride 55.6 ml 0 ml NERVRT ASDIRECTED [facility] Last Admin: 09/03/18 18:00 Dose: 80 syringe Dexamethasone (Dexamethasone) Confirm Administered Dose 4 mg .ROUTE .STK-MED ONE Stop: 09/03/18 14:41 Fentanyl (Sublimaze) 25 mcg IVPUSH ONETIME ONE Stop: 09/03/18 13:57 Last Admin: 09/03/18 14:16 Dose: 25 mcg Fentanyl (Sublimaze) 25 mcg IVPUSH Q2H PRN PRN Reason: Pain (severe 7-10) Fentanyl (Sublimaze) Confirm Administered Dose 250 mcg .ROUTE .STK-MED ONE Stop: 09/03/18 14:41 Glycopyrrolate (Robinul) Confirm Administered Dose 1 mg .ROUTE .STK-MED ONE Stop: 09/03/18 14:41 Heparin Sodium (Porcine) (Heparin Sodium) Confirm Administered Dose 5,000 units .ROUTE .STK-MED ONE Stop: 09/03/18 18:32 Hydromorphone HCl (Dilaudid) 0.5 mg IVPUSH ONETIME ONE Stop: 09/03/18 10:48 Last Admin: 09/03/18 11:00 Dose: 0.5 mg Hydromorphone HCl (Dilaudid) 0.5 mg IVPUSH ONETIME ONE Stop: 09/03/18 11:22 Last Admin: 09/03/18 11:25 Dose: 0.5 mg Hydromorphone HCl (Dilaudid) 0.5 mg IVPUSH ONETIME ONE Stop: 09/03/18 12:10 Last Admin: 09/03/18 12:12 Dose: 0.5 mg Hydromorphone HCl (Dilaudid) 0.5 mg IVPUSH ONETIME ONE Stop: 09/03/18 12:40 Last Admin: 09/03/18 12:44 Dose: 0.5 mg Hydromorphone HCl (Dilaudid) 1 mg IVPUSH ONETIME ONE Stop: 09/03/18 12:57 Last Admin: 09/03/18 13:00 Dose: 1 mg Sodium Chloride (Normal Saline) 1,000 mls @ 1,000 mls/hr IV .BOLUS ONE Stop: 09/03/18 12:17 Last Admin: 09/03/18 11:25 Dose: 1,000 mls/hr Piperacillin/Tazobactam/ (Dextrose 4.5 gm/ Premix) 100 mls @ 200 mls/hr IV ONETIME ONE Stop: 09/03/18 13:29 Last Admin: 09/03/18 13:04 Dose: 200 mls/hr Sodium Chloride (Normal Saline) 1,000 mls @ 500 mls/hr IV ASDIRECTED [facility] Last Admin: 09/03/18 13:00 Dose: 500 mls/hr Lactated Ringer's (Ringers, Lactated) 1,000 mls @ 125 mls/hr IV ASDIRECTED [facility] Last Admin: 09/03/18 16:07 Dose: 125 mls/hr Aztreonam 2 gm/ Sodium (Chloride) 100 mls @ 200 mls/hr IV NOW ONE Stop: 09/03/18 15:29 Last Admin: 09/03/18 14:56 Dose: 200 mls/hr Meropenem 500 mg/ Sodium (Chloride) 50 mls @ 100 mls/hr IV ONCALL ONE Stop: 09/03/18 17:29 Last Admin: 09/03/18 16:25 Dose: 100 mls/hr Piperacillin/Tazobactam/ (Dextrose 3.375 gm/ Premix) 50 mls @ 100 mls/hr IV Q6H [facility] Last Admin: 09/03/18 22:15 Dose: Not Given Sodium Chloride (Normal Saline) Confirm Administered Dose 500 mls @ as directed .ROUTE .STK-MED ONE Stop: 09/03/18 18:33 Aztreonam/Dextrose 1 gm/ (Premix) 50 mls @ 100 mls/hr IV Q8HR [facility]HED Sodium Chloride (Normal Saline) Confirm Administered Dose 50 mls @ as directed .ROUTE .STK-MED ONE Stop: 09/03/18 22:01 Last Admin: 09/03/18 22:21 Dose: Not Given Aztreonam/Dextrose 1 gm/ (Premix) 50 mls @ 100 mls/hr IV Q8H [facility] Last Admin: 09/04/18 07:30 Dose: Not Given Dextrose/Lactated Ringer's (Dextrose 5%-Lactated Ringers) 1,000 mls @ 100 mls/ hr IV ASDIRECTED PRN PRN Reason: Hypotension Lactated Ringer's (Ringers, Lactated) 500 mls @ 500 mls/hr IV .BOLUS NAHED Last Admin: 09/04/18 01:10 Dose: 500 mls/hr Lactated Ringer's (Ringers, Lactated) 500 mls @ 500 mls/hr IV .BOLUS NAHED Last Admin: 09/04/18 03:13 Dose: 500 mls/hr Propofol (Diprivan 100 Ml) Confirm Administered Dose 100 mls @ as directed .ROUTE .STK-MED ONE Stop: 09/04/18 03:45 Last Admin: 09/04/18 03:59 Dose: Not Given Lorazepam (Ativan) 0.5 mg IVPUSH Q4H PRN PRN Reason: Nausea/Vomiting Meropenem (Merrem) Confirm Administered Dose 1,000 mg .ROUTE .STK-MED ONE Stop: 09/03/18 17:54 Last Admin: 09/03/18 18:32 Dose: 3,500 mg Meropenem (Merrem) Confirm Administered Dose 1,000 mg .ROUTE .STK-MED ONE Stop: 09/03/18 18:04 Meropenem (Merrem) Confirm Administered Dose 2,000 mg .ROUTE .STK-MED ONE Stop: 09/03/18 18:18 Metoprolol Tartrate (Lopressor) 25 mg PO ONETIME ONE Stop: 09/03/18 10:41 Last Admin: 09/03/18 11:00 Dose: 25 mg Neostigmine Methylsulfate (Neostigmine) Confirm Administered Dose 5 mg .ROUTE .STK-MED ONE Stop: 09/03/18 14:41 Ondansetron HCl (Zofran Odt) 4 mg PO Q6H PRN PRN Reason: Nausea able to take PO Ondansetron HCl (Zofran) 4 mg IV Q6H PRN PRN Reason: Nausea/Vomiting Ondansetron HCl (Zofran) Confirm Administered Dose 4 mg .ROUTE .STK-MED ONE Stop: 09/03/18 14:41 Pantoprazole Sodium (Protonix Iv) 40 mg IV Q12H NAH[facility] Last Admin: 09/03/18 16:07 Dose: 40 mg Propofol (Diprivan 20 Ml) Confirm Administered Dose 200 mg .ROUTE .STK-MED ONE Stop: 09/03/18 14:41 Rocuronium [place] (Zemuron) Confirm Administered Dose 50 mg .ROUTE .STK-MED ONE Stop: 09/03/18 14:41 Succinylcholine Chloride (Quelicin) Confirm Administered Dose 200 mg .ROUTE .STK -MED ONE Stop: 09/03/18 14:41 - Exam Quality Assessment: Supplemental Oxygen, Urine Catheter, DVT Prophylaxis, Restraints General: Alert, Cooperative, No Acute Distress HEENT: Pupils Equal Lungs: Clear to Auscultation, Normal Respiratory Effort Cardiovascular: Regular Rhythm, Tachycardia GI/Abdominal Exam: No Distention, Abnormal Bowel Sounds Extremities: No Pedal Edema. No: Increased Warmth Skin: Warm, Dry Psy/Mental Status: Alert, Normal Affect - Problem List & Annotations (1) Diverticulitis of colon with perforation SNOMED Code(s): 89118265 Code(s): K57.20 - DVTRCLI OF LG INT W PERFORATION AND ABSCESS W/O BLEEDING Status: Acute Current Visit: Yes Qualifiers: Diverticulitis bleeding: without bleeding Qualified Code(s): K57.20 - Diverticulitis of large intestine with perforation and abscess without bleeding (2) Sepsis SNOMED Code(s): 86348928 Code(s): A41.9 - SEPSIS, UNSPECIFIED ORGANISM Status: Acute Current Visit : Yes Qualifiers: Sepsis type: sepsis due to unspecified organism Qualified Code(s): A41.9 - Sepsis, unspecified organism (3) Acute kidney injury SNOMED Code(s): 84035737 Code(s): N17.9 - ACUTE KIDNEY FAILURE, UNSPECIFIED Status: Acute Current Visit: Yes (4) Leukopenia SNOMED Code(s): 85901824, 577740428 Code(s): D72.819 - DECREASED WHITE BLOOD CELL COUNT, UNSPECIFIED Status: Acute Current Visit: Yes Qualifiers: Leukopenia type: neutropenia Neutropenia type: other Qualified Code(s): D70.8 - Other neutropenia - Problem List Review Problem List Initiated/Reviewed/Updated: Yes - My Orders Last 24 Hours: My Active Orders 09/03/18 13:59 Resuscitation Status Routine 09/03/18 14:37 Patient Status [ADT] Routine Antiembolic Devices [RC] .Routine Cardiac Monitoring [RC] Q6H Notify Provider Vital Signs [RC] ASDIRECTED RT Aerosol Therapy [RC] ASDIRECTED Consult to Physician [CONS] Routine Sequential Compression Device [OM.PC] Per Unit Routine VTE Pharmacological Contraindications [AST] Per Unit Routine 09/03/18 20:00 Intake and Output [RC] Q1H 09/03/18 21:38 hydrOXYzine HCl [Vistaril] 50 mg IM Q4H PRN 09/03/18 22:00 Lactated Ringers [Ringers, Lactated] 1,000 ml IV ASDIRECTED Meropenem [Merrem] 500 mg Sodium Chloride 0.9% [Normal Saline] 50 ml IV Q8H Pantoprazole [ProTONIX IV] 40 mg IV Q24H 09/03/18 22:45 Dextrose 5%-Lactated Ringers 1,000 ml IV ASDIRECTED 09/03/18 Lunch Nothing per Oral Now Diet [DIET] 09/04/18 09:00 Aztreonam/Dextrose-Water [Azactam in Dextrose,Iso-Osmotic 1 GM/50 ML] 1 gm Premix Bag 1 bag IV Q8H - Plan Plan:: ASSESSMENT AND PLAN - Perforated sigmoid colon with sepsis - sepsis has been improving with surgical intervention last night lactic acid level remains mildly elevated this morning. She is mildly tachycardic. Urine output has been on the low side of normal. Gram stain of intra-abdominal fluid showed gram-positive cocci in small quantities and moderate gram-negative rods. Patient has been intubated and sedated postoperatively. Plan to maintain intubation at least until her second look surgery today. She is currently requiring minimal support from the ventilator. -Continue Pip/Tazo -Continue IV fluids -Repeat lactic acid level -Second Look laparotomy planned for today -Pain control with fentanyl -Follow-up cultures Acute kidney injury - likely related to sepsis and function has remained stable but urine output is borderline. -Management as above -Repeat labs in the morning Leukopenia - probably related to sepsis and level is slightly better today. Maintenance issues - - DVT prophylaxis - mechanical - GI prophylaxis - PPI - Nutrition - nothing by mouth - Rubin catheter - placed for strict intake and output monitoring and a critical patient Disposition - I would anticipate discharge home after the hospital stay Santana Cunningham M.D.
[2018-09-04] MEDS ORDERED: fentaNYL 250 MCG/5 ML SDV ONE ×2 (09:45→13:56)
[2018-09-04] MEDS ORDERED: Ondansetron 4 MG/2 ML SDV ONE (09:46)
[2018-09-04] MEDS ORDERED: Rocuronium 50 MG/5 ML Vial ONE (09:46)
[2018-09-04] MEDS ORDERED: Propofol 200 MG/20 ML SDV ONE (09:46)
[2018-09-04] MEDS ORDERED: Glycopyrrolate 0.2 MG/ML 5 ML MDV ONE (09:46)
[2018-09-04] MEDS ORDERED: Dexamethasone 4 MG/ML SDV ONE (09:46)
[2018-09-04] MEDS ORDERED: Succinylcholine 200 MG/10 ML MDV ONE (09:46)
[2018-09-04] MEDS ORDERED: Neostigmine Methylsulfate 1 MG/ML 5 ML Syringe ONE (09:46)
[2018-09-04] MEDS: Lactated Ringers 500 ML IV SCH ×2 (10:29→21:04)
[2018-09-04] MEDS ORDERED: Ropivacaine 22 ML, dexAMETHasone 8 MG, EPINEPHrine 0.4 MG, Sodium Chloride 0.9% 55.6 ML NERVRT SCH ×4 (11:00)
[2018-09-04] MEDS ORDERED: Lactated Ringers 1,000 ML ONE ×2 (13:10)
[2018-09-04] MEDS ORDERED: Sodium Chloride 0.9% 10 ML ONE (13:14)
[2018-09-04] MEDS ORDERED: Furosemide 20 MG/2 ML VIAL IVPUSH ONE (15:09)
[2018-09-04] MEDS: Metoprolol Tartrate 5 MG/5 ML SDV IVPUSH SCH ×2 (15:26→21:08)
--- NOTE | 2018-09-04 15:32 | CRLCR ---
INDICATION: Line placement COMPARISON: Portable chest performed on 09/04/2018 at 4:04 a.m. TECHNIQUE: Portable AP semi-erect chest performed at 2:54 p.m. FINDINGS: There has been insertion of a left subclavian central venous catheter which deflects superiorly into the internal jugular vein with the tip beyond the superior margin of the image. The patient has been extubated. The NG tube remains in place. The heart and pulmonary vessels are within normal range in size. There is no evidence of pneumothorax or mediastinal hematoma. IMPRESSION: Abnormal positioning of the new left subclavian venous catheter which has deflected superiorly into the internal jugular vein. No pneumothorax. Dictated by Yg Meneses MD @ 09/04/2018 3:30:54 PM Dictated by: Yg Meneses MD @ 09/04/2018 15:31:01 (Electronically Signed)
[2018-09-04] MEDS: LORazepam 2 MG/ML SDV IVPUSH PRN ×3 (16:30→23:39)
[2018-09-04] MEDS: Magnesium Sulfate/Water 2 GM in Premix Bag 1 BAG IV SCH ×2 (17:02→21:09)
[2018-09-04] MEDS: Heparin Sodium 5,000 UNITS in Sodium Chloride 0.9% 500 ML IV SCH (17:08)
[2018-09-04] MEDS ORDERED: Lactated Ringers 500 ML IV ONE ×2 (18:30→23:01)
[2018-09-04] MEDS: Pantoprazole 40 MG Vial IV SCH (21:09)
[2018-09-05] MEDS: Aztreonam/Dextrose-Water 1 GM in Premix Bag 1 BAG IV SCH ×3 (00:58→17:09)
[2018-09-05] MEDS ORDERED: Lactated Ringers 500 ML IV ONE ×2 (01:15→03:09)
[2018-09-05] MEDS: Lactated Ringers 1,000 ML IV SCH ×2 (01:35→02:13)
[2018-09-05] MEDS: Dextrose 5%-Lactated Ringers 1,000 ML IV SCH (02:13)
[2018-09-05] MEDS: Metoprolol Tartrate 5 MG/5 ML SDV IVPUSH SCH ×4 (03:20→21:31)
[2018-09-05] MEDS: Magnesium Sulfate/Water 2 GM in Premix Bag 1 BAG IV SCH ×4 (03:26→21:31)
[2018-09-05] MEDS: LORazepam 2 MG/ML SDV IVPUSH PRN (03:50)
[2018-09-05] MEDS: Meropenem 500 MG in Sodium Chloride 0.9% 50 ML IV SCH ×3 (05:17→21:31)
--- NOTE | 2018-09-05 10:00 | PCM.PN ---
- General Info Date of Service: 09/05/18 Subjective Update: Overnight the patient had some difficulty with hypotension and low urine output. Central venous pressures were around 5 so she has responded to fluid challenges though her urine output remains on the low side. She is alert and somewhat agitated but not interactive this morning. She does not appear to be in significant pain. She has not had fevers. She does have blood cultures which are positive for gram-negative rods and gram-positive rods. Second look laparotomy yesterday revealed additional area of necrosis in the small intestine and a small bowel resection was performed in addition to a washout. Lactic acid level has been trending down. Hemoglobin is on the low side today and she will be receiving a unit of blood. Functional Status: Denies: Pain Controlled - Review of Systems General: Reports: Fever Gastrointestinal: Reports: Abdominal Pain Neurological: Reports: Confusion - Patient Data Vitals - Most Recent: Last Vital Signs Temp 35.8 C 09/05/18 09:45 Pulse 112 H 09/05/18 09:23 Resp 9 L 09/05/18 09:45 BP 119/50 L 09/05/18 09:45 Pulse Ox 95 09/05/18 09:45 Weight - Most Recent: 45.359 kg I&O - Last 24 Hours: Intake & Output 09/04/18 09/05/18 09/05/18 22:59 06:59 14:59 Intake Total 2896 4664 0 Output Total 237 286 15 Balance 2659 4378 -15 Lab Results Last 24 Hours: Laboratory Results - last 24 hr 09/04/18 09/04/18 09/04/18 Range/Units 15:00 16:00 16:01 WBC (4.5-11.0) K/uL RBC (3.30-5.50) M/uL Hgb (12.0-15.0) g/dL Hct (36.0-48.0) % MCV (80-98) fL MCH (27-31) pg MCHC (32-36) % Plt Count (150-400) K/uL Puncture Site Line Line ABG pH 7.202 L* 7.284 L (7.350-7.450) ABG pCO2 56.6 H 44.9 H (35.0-42.0) mmHg ABG pO2 71.3 L 104.0 H (75.0-100.0) mmHg ABG HCO3 21.4 L 20.6 L (22.0-26.0) mmol/L ABG Total CO2 20.9 L 20.0 L (21.0-25.0) mmol/L ABG O2 Saturation 89.2 L 97.1 (95.0-98.0) % ABG O2 Content 11.7 L 11.9 L (15.0-23.0) %vol ABG Base Excess -6.2 -5.2 mm/L ABG Hemoglobin 9.4 L 8.7 L (12.0-16.0) g/dL ABG Oxyhemoglobin 88.4 95.4 % ABG Carboxyhemoglobin 0.2 1.0 (0.0-1.6) % ABG Methemoglobin 0.7 0.7 % Woody Test TNP TNP O2 Delivery Device Nasal cannula Nasal cannula Oxygen Flow Rate 6 3 L Sodium 135 L (140-148) mmol/L Potassium 4.2 (3.6-5.2) mmol/L Chloride 103 (100-108) mmol/L Carbon Dioxide 22 (21-32) mmol/L Anion Gap 14.2 H (5.0-14.0) mmol/L BUN 31 H (7-18) mg/dL Creatinine 1.7 H (0.6-1.0) mg/dL Est Cr Clr Drug Dosing 19.53 mL/min Estimated GFR (MDRD) 29 L (>60) Glucose 84 (74-106) mg/dL Lactic Acid (0.4-2.0) mmol/L Calcium 7.6 L (8.5-10.1) mg/dL Phosphorus (2.5-4.9) mg/dL Total Bilirubin (0.2-1.0) mg/dL AST (15-37) U/L ALT (12-78) U/L Alkaline Phosphatase (46-116) U/L NT-Pro-B Natriuret Pep 54923 H (5-450) pg/mL Total Protein (6.4-8.2) g/dL Albumin (3.4-5.0) g/dL Globulin (2.3-3.5) g/dL Albumin/Globulin Ratio (1.2-2.2) Blood Type Gel Antibody Screen Crossmatch 09/04/18 09/04/18 09/05/18 Range/Units 16:01 18:00 04:25 WBC 11.5 H (4.5-11.0) K/uL RBC 2.26 L (3.30-5.50) M/uL Hgb 7.8 L (12.0-15.0) g/dL Hct 23.6 L (36.0-48.0) % MCV 104 H (80-98) fL MCH 35 H (27-31) pg MCHC 33 (32-36) % Plt Count 231 (150-400) K/uL Puncture Site Line ABG pH 7.317 L (7.350-7.450) ABG pCO2 42.8 H (35.0-42.0) mmHg ABG pO2 78.2 (75.0-100.0) mmHg ABG HCO3 21.2 L (22.0-26.0) mmol/L ABG Total CO2 20.6 L (21.0-25.0) mmol/L ABG O2 Saturation 95.1 (95.0-98.0) % ABG O2 Content 10.6 L (15.0-23.0) %vol ABG Base Excess -4.0 mm/L ABG Hemoglobin 8.0 L (12.0-16.0) g/dL ABG Oxyhemoglobin 93.7 % ABG Carboxyhemoglobin 1.0 (0.0-1.6) % ABG Methemoglobin 0.5 % Woody Test TNP O2 Delivery Device Nasal cannula Oxygen Flow Rate 3 L Sodium (140-148) mmol/L Potassium (3.6-5.2) mmol/L Chloride (100-108) mmol/L Carbon Dioxide (21-32) mmol/L Anion Gap (5.0-14.0) mmol/L BUN (7-18) mg/dL Creatinine (0.6-1.0) mg/dL Est Cr Clr Drug Dosing mL/min Estimated GFR (MDRD) (>60) Glucose (74-106) mg/dL Lactic Acid 2.7 H (0.4-2.0) mmol/L Calcium (8.5-10.1) mg/dL Phosphorus (2.5-4.9) mg/dL Total Bilirubin (0.2-1.0) mg/dL AST (15-37) U/L ALT (12-78) U/L Alkaline Phosphatase (46-116) U/L NT-Pro-B Natriuret Pep (5-450) pg/mL Total Protein (6.4-8.2) g/dL Albumin (3.4-5.0) g/dL Globulin (2.3-3.5) g/dL Albumin/Globulin Ratio (1.2-2.2) Blood Type Gel Antibody Screen Crossmatch 09/05/18 09/05/18 09/05/18 Range/Units 04:25 04:25 06:36 WBC (4.5-11.0) K/uL RBC (3.30-5.50) M/uL Hgb (12.0-15.0) g/dL Hct (36.0-48.0) % MCV (80-98) fL MCH (27-31) pg MCHC (32-36) % Plt Count (150-400) K/uL Puncture Site A-line ABG pH 7.323 L (7.350-7.450) ABG pCO2 43.7 H (35.0-42.0) mmHg ABG pO2 71.9 L (75.0-100.0) mmHg ABG HCO3 22.1 (22.0-26.0) mmol/L ABG Total CO2 21.3 (21.0-25.0) mmol/L ABG O2 Saturation 93.1 L (95.0-98.0) % ABG O2 Content 10.6 L (15.0-23.0) %vol ABG Base Excess -3.2 mm/L ABG Hemoglobin 8.2 L (12.0-16.0) g/dL ABG Oxyhemoglobin 91.8 % ABG Carboxyhemoglobin 0.7 (0.0-1.6) % ABG Methemoglobin 0.7 % Woody Test A-line O2 Delivery Device Nasal cannula Oxygen Flow Rate 3 L Sodium 134 L (140-148) mmol/L Potassium 4.0 (3.6-5.2) mmol/L Chloride 102 (100-108) mmol/L Carbon Dioxide 22 (21-32) mmol/L Anion Gap 14.0 (5.0-14.0) mmol/L BUN 32 H (7-18) mg/dL Creatinine 1.6 H (0.6-1.0) mg/dL Est Cr Clr Drug Dosing 20.75 mL/min Estimated GFR (MDRD) 31 L (>60) Glucose 116 H (74-106) mg/dL Lactic Acid 2.0 (0.4-2.0) mmol/L Calcium 7.7 L (8.5-10.1) mg/dL Phosphorus 3.2 (2.5-4.9) mg/dL Total Bilirubin 0.3 (0.2-1.0) mg/dL AST 64 H (15-37) U/L ALT 21 (12-78) U/L Alkaline Phosphatase 74 (46-116) U/L NT-Pro-B Natriuret Pep 05727 H (5-450) pg/mL Total Protein 5.0 L (6.4-8.2) g/dL Albumin 1.5 L (3.4-5.0) g/dL Globulin 3.5 (2.3-3.5) g/dL Albumin/Globulin Ratio 0.4 L (1.2-2.2) Blood Type Gel Antibody Screen Crossmatch 09/05/18 Range/Units 07:04 WBC (4.5-11.0) K/uL RBC (3.30-5.50) M/uL Hgb (12.0-15.0) g/dL Hct (36.0-48.0) % MCV (80-98) fL MCH (27-31) pg MCHC (32-36) % Plt Count (150-400) K/uL Puncture Site ABG pH (7.350-7.450) ABG pCO2 (35.0-42.0) mmHg ABG pO2 (75.0-100.0) mmHg ABG HCO3 (22.0-26.0) mmol/L ABG Total CO2 (21.0-25.0) mmol/L ABG O2 Saturation (95.0-98.0) % ABG O2 Content (15.0-23.0) %vol ABG Base Excess mm/L ABG Hemoglobin (12.0-16.0) g/dL ABG Oxyhemoglobin % ABG Carboxyhemoglobin (0.0-1.6) % ABG Methemoglobin % Woody Test O2 Delivery Device Oxygen Flow Rate L Sodium (140-148) mmol/L Potassium (3.6-5.2) mmol/L Chloride (100-108) mmol/L Carbon Dioxide (21-32) mmol/L Anion Gap (5.0-14.0) mmol/L BUN (7-18) mg/dL Creatinine (0.6-1.0) mg/dL Est Cr Clr Drug Dosing mL/min Estimated GFR (MDRD) (>60) Glucose (74-106) mg/dL Lactic Acid (0.4-2.0) mmol/L Calcium (8.5-10.1) mg/dL Phosphorus (2.5-4.9) mg/dL Total Bilirubin (0.2-1.0) mg/dL AST (15-37) U/L ALT (12-78) U/L Alkaline Phosphatase (46-116) U/L NT-Pro-B Natriuret Pep (5-450) pg/mL Total Protein (6.4-8.2) g/dL Albumin (3.4-5.0) g/dL Globulin (2.3-3.5) g/dL Albumin/Globulin Ratio (1.2-2.2) Blood Type O POSITIVE Gel Antibody Screen Negative Crossmatch See Detail Joseph Results Last 24 Hours: Microbiology 09/03/18 12:20 Aerobic Blood Culture - Preliminary Blood - Arm, Left NO GROWTH AFTER 1 DAY Anaerobic Blood Culture - Preliminary 09/03/18 12:10 Aerobic Blood Culture - Preliminary Blood - Venous NO GROWTH AFTER 1 DAY Anaerobic Blood Culture - Preliminary 09/04/18 13:32 Gram Stain - Final Abdomen - Drainage Wound Culture - Preliminary 09/04/18 13:33 Gram Stain - Final Abdominal Fluid - Drainage Wound Culture - Preliminary 09/03/18 18:31 Gram Stain - Final Peritoneal Fluid Wound Culture - Preliminary 09/03/18 18:31 Gram Stain - Final Peritoneal Fluid Wound Culture - Preliminary Med Orders - Current: Current Medications Hydromorphone HCl (Dilaudid [employer] 15 Mg In Ns 30 Ml) 0 mg IV ASDIRECTED PRN; Protocol PRN Reason: CLINICAL DATA ABSTRACTOR 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 Last Admin: 09/03/18 15:28 Dose: 15 mg Hydroxyzine HCl (Vistaril) 50 mg IM Q4H PRN PRN Reason: Pain Meropenem 500 mg/ Sodium (Chloride) 50 mls @ 100 mls/hr IV Q8H [facility]HED Last Admin: 09/05/18 05:17 Dose: 100 mls/hr Dextrose/Lactated Ringer's (Dextrose 5%-Lactated Ringers) 1,000 mls @ 100 mls/ hr IV ASDIRECTED [facility] Last Admin: 09/05/18 02:13 Dose: 100 mls/hr Aztreonam/Dextrose 1 gm/ (Premix) 50 mls @ 100 mls/hr IV Q8H [facility] Last Admin: 09/05/18 09:30 Dose: 100 mls/hr Lactated Ringer's (Ringers, Lactated) 500 mls @ 500 mls/hr IV ASDIRECTED [facility] Last Admin: 09/04/18 21:04 Dose: 500 mls/hr Magnesium Sulfate 2 gm/ Premix 50 mls @ 25 mls/hr IV Q6H [facility] Stop: 09/06/18 11:59 Last Admin: 09/05/18 09:31 Dose: 25 mls/hr Heparin Sodium (Porcine) 5,000 (units/ Sodium Chloride) 501 mls @ 5 mls/hr IV ASDIRECTED [facility] Last Admin: 09/04/18 17:08 Dose: 5 mls/hr Lactated Ringer's (Ringers, Lactated) 1,000 mls @ 150 mls/hr IV ASDIRECTED [facility] Last Admin: 09/05/18 02:13 Dose: 150 mls/hr Multivitamins/Minerals 10 ml/Chromium/Copper/Manganese/Seleni/Zn 1 ml/ Amino Ac/ Electrol/Dextrose/Calcium 2,011 mls @ 82 mls/hr IV .BY DURATION [facility] Amino Ac/Electrol/Dextrose/Calcium (Clinimix E 15) 2,000 mls @ 82 mls/hr IV .BY DURATION [facility] Lorazepam (Ativan) 0.5 mg IVPUSH Q3H PRN PRN Reason: AGITATION Last Admin: 09/05/18 03:50 Dose: 0.25 mg Metoprolol Tartrate (Lopressor) 5 mg IVPUSH Q6H [facility] Last Admin: 09/05/18 09:23 Dose: 5 mg Naloxone HCl (Narcan) 0.1 mg IV ASDIRECTED PRN PRN Reason: decreased respiratory rate Pantoprazole Sodium (Protonix Iv) 40 mg IV Q24H [facility] Last Admin: 09/04/18 21:09 Dose: 40 mg Discontinued Medications Acetaminophen (Tylenol) 650 mg PO Q4H PRN PRN Reason: Pain (Mild 1-3)/fever Acetaminophen (Tylenol) 650 mg RECTAL Q4H PRN PRN Reason: Mild pain/fever Albuterol (Proventil Neb Soln) 2.5 mg NEB Q4H PRN PRN Reason: Shortness Of Breath/wheezing Albuterol/Ipratropium (Duoneb 3.0-0.5 Mg/3 Ml) 3 ml INH PREPRO ONE Stop: 09/03/18 17:01 Last Admin: 09/03/18 16:25 Dose: 3 ml Aztreonam (Azactam) Confirm Administered Dose 1 gm .ROUTE .STK-MED ONE Stop: 09/03/18 21:44 Last Admin: 09/03/18 22:15 Dose: Not Given Benazepril HCl (Lotensin) 40 mg PO ONETIME ONE Stop: 09/03/18 10:41 Last Admin: 09/03/18 11:00 Dose: 40 mg Ropivacaine 22 ml/Dexamethasone 8 mg/Epinephrine HCl 0.4 mg/ Sodium Chloride 55.6 ml 0 ml NERVRT ASDIRECTED [facility] Ropivacaine 22 ml/Dexamethasone 8 mg/Epinephrine HCl 0.4 mg/ Sodium Chloride 55.6 ml 0 ml NERVRT ASDIRECTED [facility] Last Admin: 09/04/18 14:03 Dose: 80 syringe Dexamethasone (Dexamethasone) Confirm Administered Dose 4 mg .ROUTE .STK-MED ONE Stop: 09/03/18 14:41 Dexamethasone (Dexamethasone) Confirm Administered Dose 4 mg .ROUTE .STK-MED ONE Stop: 09/04/18 09:47 Fentanyl (Sublimaze) 25 mcg IVPUSH ONETIME ONE Stop: 09/03/18 13:57 Last Admin: 09/03/18 14:16 Dose: 25 mcg Fentanyl (Sublimaze) 25 mcg IVPUSH Q2H PRN PRN Reason: Pain (severe 7-10) Fentanyl (Sublimaze) Confirm Administered Dose 250 mcg .ROUTE .STK-MED ONE Stop: 09/03/18 14:41 Fentanyl (Sublimaze) Confirm Administered Dose 250 mcg .ROUTE .STK-MED ONE Stop: 09/04/18 09:46 Fentanyl (Sublimaze) Confirm Administered Dose 250 mcg .ROUTE .STK-MED ONE Stop: 09/04/18 13:57 Furosemide (Lasix) 20 mg IVPUSH ONETIME ONE Stop: 09/04/18 15:10 Last Admin: 09/04/18 15:18 Dose: 20 mg Glycopyrrolate (Robinul) Confirm Administered Dose 1 mg .ROUTE .STK-MED ONE Stop: 09/03/18 14:41 Glycopyrrolate (Robinul) Confirm Administered Dose 1 mg .ROUTE .STK-MED ONE Stop: 09/04/18 09:47 Heparin Sodium (Porcine) (Heparin Sodium) Confirm Administered Dose 5,000 units .ROUTE .STK-MED ONE Stop: 09/03/18 18:32 Heparin Sodium (Porcine) (Heparin Lock Flush 100 Units/Ml) Confirm Administered Dose 500 units .ROUTE .STK-MED ONE Stop: 09/04/18 13:14 Hydromorphone HCl (Dilaudid) 0.5 mg IVPUSH ONETIME ONE Stop: 09/03/18 10:48 Last Admin: 09/03/18 11:00 Dose: 0.5 mg Hydromorphone HCl (Dilaudid) 0.5 mg IVPUSH ONETIME ONE Stop: 09/03/18 11:22 Last Admin: 09/03/18 11:25 Dose: 0.5 mg Hydromorphone HCl (Dilaudid) 0.5 mg IVPUSH ONETIME ONE Stop: 09/03/18 12:10 Last Admin: 09/03/18 12:12 Dose: 0.5 mg Hydromorphone HCl (Dilaudid) 0.5 mg IVPUSH ONETIME ONE Stop: 09/03/18 12:40 Last Admin: 09/03/18 12:44 Dose: 0.5 mg Hydromorphone HCl (Dilaudid) 1 mg IVPUSH ONETIME ONE Stop: 09/03/18 12:57 Last Admin: 09/03/18 13:00 Dose: 1 mg Sodium Chloride (Normal Saline) 1,000 mls @ 1,000 mls/hr IV .BOLUS ONE Stop: 09/03/18 12:17 Last Admin: 09/03/18 11:25 Dose: 1,000 mls/hr Piperacillin/Tazobactam/ (Dextrose 4.5 gm/ Premix) 100 mls @ 200 mls/hr IV ONETIME ONE Stop: 09/03/18 13:29 Last Admin: 09/03/18 13:04 Dose: 200 mls/hr Sodium Chloride (Normal Saline) 1,000 mls @ 500 mls/hr IV ASDIRECTED [facility] Last Admin: 09/03/18 13:00 Dose: 500 mls/hr Lactated Ringer's (Ringers, Lactated) 1,000 mls @ 125 mls/hr IV ASDIRECTED [facility] Last Admin: 09/03/18 16:07 Dose: 125 mls/hr Aztreonam 2 gm/ Sodium (Chloride) 100 mls @ 200 mls/hr IV NOW ONE Stop: 09/03/18 15:29 Last Admin: 09/03/18 14:56 Dose: 200 mls/hr Meropenem 500 mg/ Sodium (Chloride) 50 mls @ 100 mls/hr IV ONCALL ONE Stop: 09/03/18 17:29 Last Admin: 09/03/18 16:25 Dose: 100 mls/hr Piperacillin/Tazobactam/ (Dextrose 3.375 gm/ Premix) 50 mls @ 100 mls/hr IV Q6H [facility] Last Admin: 09/03/18 22:15 Dose: Not Given Sodium Chloride (Normal Saline) Confirm Administered Dose 500 mls @ as directed .ROUTE .STK-MED ONE Stop: 09/03/18 18:33 Aztreonam/Dextrose 1 gm/ (Premix) 50 mls @ 100 mls/hr IV Q8HR [facility] Sodium Chloride (Normal Saline) Confirm Administered Dose 50 mls @ as directed .ROUTE .STK-MED ONE Stop: 09/03/18 22:01 Last Admin: 09/03/18 22:21 Dose: Not Given Aztreonam/Dextrose 1 gm/ (Premix) 50 mls @ 100 mls/hr IV Q8H [facility] Last Admin: 09/04/18 07:30 Dose: Not Given Dextrose/Lactated Ringer's (Dextrose 5%-Lactated Ringers) 1,000 mls @ 100 mls/ hr IV ASDIRECTED PRN PRN Reason: Hypotension Lactated Ringer's (Ringers, Lactated) 1,000 mls @ 100 mls/hr IV ASDIRECTED [facility] Last Admin: 09/04/18 04:20 Dose: 100 mls/hr Lactated Ringer's (Ringers, Lactated) 500 mls @ 500 mls/hr IV .BOLUS NAHED Last Admin: 09/04/18 01:10 Dose: 500 mls/hr Lactated Ringer's (Ringers, Lactated) 500 mls @ 500 mls/hr IV .BOLUS NAHED Last Admin: 09/04/18 03:13 Dose: 500 mls/hr Propofol (Diprivan 100 Ml) 100 mls @ 1.361 mls/hr IV TITRATE NAHED; Protocol Last Titration: 09/04/18 07:52 Dose: 14 mcg/kg/min, 3.81 mls/hr Propofol (Diprivan 100 Ml) Confirm Administered Dose 100 mls @ as directed .ROUTE .[facility] ONE Stop: 09/04/18 03:45 Last Admin: 09/04/18 03:59 Dose: Not Given Lactated Ringer's (Ringers, Lactated) 500 mls @ 999 mls/hr IV .BOLUS NAHED Last Admin: 09/04/18 06:10 Dose: 999 mls/hr Lactated Ringer's (Ringers, Lactated) Confirm Administered Dose 1,000 mls @ as directed .ROUTE .[facility] ONE Stop: 09/04/18 13:11 Lactated Ringer's (Ringers, Lactated) Confirm Administered Dose 1,000 mls @ as directed .ROUTE .[facility] ONE Stop: 09/04/18 13:11 Sodium Chloride (Normal Saline) Confirm Administered Dose 10 mls @ as directed .ROUTE .[facility] ONE Stop: 09/04/18 13:15 Lactated Ringer's (Ringers, Lactated) 500 mls @ 500 mls/hr IV ASDIRECTED [facility] Stop: 09/04/18 17:46 Lactated Ringer's (Ringers, Lactated) 500 mls @ 500 mls/hr IV ONETIME ONE Stop: 09/04/18 19:29 Last Admin: 09/04/18 18:37 Dose: 500 mls/hr Lactated Ringer's (Ringers, Lactated) 500 mls @ 1,000 mls/hr IV ONETIME ONE Stop: 09/04/18 23:30 Last Admin: 09/04/18 23:18 Dose: 1,000 mls/hr Lactated Ringer's (Ringers, Lactated) 500 mls @ 1,000 mls/hr IV ONETIME ONE Stop: 09/05/18 01:44 Last Admin: 09/05/18 01:15 Dose: 1,000 mls/hr Lactated Ringer's (Ringers, Lactated) 500 mls @ 1,000 mls/hr IV ONETIME ONE Stop: 09/05/18 03:38 Last Admin: 09/05/18 03:15 Dose: 1,000 mls/hr Lorazepam (Ativan) 0.5 mg IVPUSH Q4H PRN PRN Reason: Nausea/Vomiting Meropenem (Merrem) Confirm Administered Dose 1,000 mg .ROUTE .STK-MED ONE Stop: 09/03/18 17:54 Last Admin: 09/03/18 18:32 Dose: 3,500 mg Meropenem (Merrem) Confirm Administered Dose 1,000 mg .ROUTE .STK-MED ONE Stop: 09/03/18 18:04 Meropenem (Merrem) Confirm Administered Dose 2,000 mg .ROUTE .STK-MED ONE Stop: 09/03/18 18:18 Metoprolol Tartrate (Lopressor) 25 mg PO ONETIME ONE Stop: 09/03/18 10:41 Last Admin: 09/03/18 11:00 Dose: 25 mg Neostigmine Methylsulfate (Neostigmine) Confirm Administered Dose 5 mg .ROUTE .STK-MED ONE Stop: 09/03/18 14:41 Neostigmine Methylsulfate (Neostigmine) Confirm Administered Dose 5 mg .ROUTE .STK-MED ONE Stop: 09/04/18 09:47 Ondansetron HCl (Zofran Odt) 4 mg PO Q6H PRN PRN Reason: Nausea able to take PO Ondansetron HCl (Zofran) 4 mg IV Q6H PRN PRN Reason: Nausea/Vomiting Ondansetron HCl (Zofran) Confirm Administered Dose 4 mg .ROUTE .STK-MED ONE Stop: 09/03/18 14:41 Ondansetron HCl (Zofran) Confirm Administered Dose 4 mg .ROUTE .STK-MED ONE Stop: 09/04/18 09:47 Pantoprazole Sodium (Protonix Iv) 40 mg IV Q12H [facility] Last Admin: 09/03/18 16:07 Dose: 40 mg Piperacillin Sod/Tazobactam Sod (Zosyn) 10.125 gm .XX ASDIRECTED [facility] Stop: 09/04/18 15:00 Last Admin: 09/04/18 14:04 Dose: 10.125 gm Propofol (Diprivan 20 Ml) Confirm Administered Dose 200 mg .ROUTE .STK-MED ONE Stop: 09/03/18 14:41 Propofol (Diprivan 20 Ml) Confirm Administered Dose 200 mg .ROUTE .STK-MED ONE Stop: 09/04/18 09:47 Rocuronium [place] (Zemuron) Confirm Administered Dose 50 mg .ROUTE .STK-MED ONE Stop: 09/03/18 14:41 Rocuronium [place] (Zemuron) Confirm Administered Dose 50 mg .ROUTE .STK-MED ONE Stop: 09/04/18 09:47 Succinylcholine Chloride (Quelicin) Confirm Administered Dose 200 mg .ROUTE .STK -MED ONE Stop: 09/03/18 14:41 Succinylcholine Chloride (Quelicin) Confirm Administered Dose 200 mg .ROUTE .STK -MED ONE Stop: 09/04/18 09:47 - Exam Quality Assessment: Supplemental Oxygen General: Mild Distress. No: Alert, Oriented Lungs: Clear to Auscultation, Normal Respiratory Effort Cardiovascular: Regular Rhythm, Tachycardia GI/Abdominal Exam: No Distention, Guarding Extremities: No Pedal Edema. No: Increased Warmth Skin: Warm, Dry Psy/Mental Status: Agitated. No: Alert - Problem List & Annotations (1) Diverticulitis of colon with perforation SNOMED Code(s): 24585662 Code(s): K57.20 - DVTRCLI OF LG INT W PERFORATION AND ABSCESS W/O BLEEDING Status: Acute Current Visit: Yes Qualifiers: Diverticulitis bleeding: without bleeding Qualified Code(s): K57.20 - Diverticulitis of large intestine with perforation and abscess without bleeding (2) Sepsis SNOMED Code(s): 44607136 Code(s): A41.9 - SEPSIS, UNSPECIFIED ORGANISM Status: Acute Current Visit : Yes Qualifiers: Sepsis type: sepsis due to unspecified organism Qualified Code(s): A41.9 - Sepsis, unspecified organism (3) Acute kidney injury SNOMED Code(s): 25108165 Code(s): N17.9 - ACUTE KIDNEY FAILURE, UNSPECIFIED Status: Acute Current Visit: Yes (4) Leukopenia SNOMED Code(s): 09349777, 668721599 Code(s): D72.819 - DECREASED WHITE BLOOD CELL COUNT, UNSPECIFIED Status: Acute Current Visit: Yes Qualifiers: Leukopenia type: neutropenia Neutropenia type: other Qualified Code(s): D70.8 - Other neutropenia - Problem List Review Problem List Initiated/Reviewed/Updated: Yes - My Orders Last 24 Hours: My Active Orders 09/04/18 09:00 Aztreonam/Dextrose-Water [Azactam in Dextrose,Iso-Osmotic 1 GM/50 ML] 1 gm Premix Bag 1 bag IV Q8H 09/04/18 10:30 Lactated Ringers [Ringers, Lactated] 500 ml IV ASDIRECTED 09/04/18 16:52 CVP Monitoring [Monitor Central Venous Pressure] [OM.PC] Routine 09/04/18 17:00 Heparin Sodium 5,000 units Sodium Chloride 0.9% [Normal Saline] 500 ml IV ASDIRECTED 09/05/18 10:00 Vancomycin 0.75 gm Sodium Chloride 0.9% [Normal Saline] 250 ml IV Q24H - Plan Plan:: ASSESSMENT AND PLAN - Perforated sigmoid colon with sepsis - sepsis has been improving. Initial surgical resection on 09/03 and Second Look laparotomy on 09/04. Sepsis seems to be improving but has not quite resolved. She has positive blood cultures and wound cultures are also pending but we don't have identification of any organisms at this time. Cultures currently growing gram negative rods and gram- positive rods. Central venous pressures now are around 9. Bedside ultrasound shows normal to borderline hyperdynamic left ventricle. She is now on TPN. -Continue Meropenem, aztreonam and add vancomycin until cultures are complete -Continue IV fluids -Repeat lactic acid in the morning -Pain control with CLINICAL DATA ABSTRACTOR -Follow-up cultures Acute kidney injury - likely related to sepsis and function has remained stable but not improved as expected. Urine output is borderline/low. -Management as above -Repeat labs in the morning Hyperactive delirium - probably combination of infection and anesthesia as well as a medications. Patient has not been able to communicate very effectively and is somewhat agitated. -Symptomatically management and treatment of the above conditions Leukopenia - probably related to sepsis and level has been improving. Maintenance issues - - DVT prophylaxis - mechanical - GI prophylaxis - PPI - Nutrition - nothing by mouth - Rubin catheter - placed for strict intake and output monitoring and a critical patient Disposition - I would anticipate discharge home after the hospital stay Santana Cunningham M.D.
[2018-09-05] MEDS: 1: AA 5%/Calcium/D15W/Lytes 2,000 ML with MVI, Adult with Vitamin K 10 ML, Chromium/Copp IV SCH ×9 (10:50→13:32)
[2018-09-05] MEDS ORDERED: Sodium Chloride 0.9% 1,000 ML IV SCH (12:15)
[2018-09-05] MEDS ORDERED: Sodium Chloride 0.9% 500 ML IV ONE (15:30)
[2018-09-05] MEDS: HYDROmorphone/Normal Saline 15 MG/30 ML PCA IV PRN (16:37)
[2018-09-05] MEDS: Pantoprazole 40 MG Vial IV SCH (21:31)
[2018-09-06] MEDS: Metoprolol Tartrate 5 MG/5 ML SDV IVPUSH SCH ×4 (03:00→21:36)
[2018-09-06] MEDS: Sodium Chloride 0.9% 1,000 ML IV SCH (03:30)
[2018-09-06] MEDS: Meropenem 500 MG in Sodium Chloride 0.9% 50 ML IV SCH ×3 (05:30→21:37)
--- NOTE | 2018-09-06 06:39 | CRLCR ---
INDICATION: Lobe PH and blood gases. TECHNIQUE: Chest 1 views COMPARISON: Chest x-ray 09/04/2018 FINDINGS: Cardiovascular and mediastinum: Cardiomegaly with atherosclerotic calcification and nasogastric tube extending below the hemidiaphragm. Left subclavian line with tip extending into the left jugular vein. Lungs and pleural spaces: Small bilateral pleural effusions with mild patchy bilateral airspace disease. Bones and soft tissues: No significant findings. IMPRESSION: 1. Left subclavian line, abnormal position, with tip extending into the left jugular vein, similar to the prior exam. 2. Small bilateral pleural effusions and bibasilar patchy airspace disease, worsened compared to the prior exam. Dictated by Keven Cronin MD @ Sep 06 2018 6:34AM Signed by Dr. Keven Cronin @ Sep 06 2018 6:38AM
[2018-09-06] MEDS ORDERED: Propofol 200 MG/20 ML SDV ONE (07:00)
[2018-09-06] MEDS ORDERED: Succinylcholine 200 MG/10 ML MDV ONE (07:00)
--- NOTE | 2018-09-06 08:11 | CRLCR ---
INDICATION: Post intubation. TECHNIQUE: Semi upright portable AP image of the chest. COMPARISON: X-ray from 6:18 a.m. today. FINDINGS: Endotracheal tube now in place with tip at the pham. NG tube again in place and runs off the field of view. Lungs better inflated than on the previous exam but patchy opacity in both lungs and pleural effusions bilaterally. IMPRESSION: Interval endotracheal tube placement with tip at the pham. Dictated by Kevin Chao MD @ Sep 06 2018 8:07AM Signed by Dr. Kevin Chao @ Sep 06 2018 8:09AM
[2018-09-06] MEDS ORDERED: Ropivacaine 22 ML, dexAMETHasone 8 MG, EPINEPHrine 0.4 MG, Sodium Chloride 0.9% 55.6 ML NERVRT SCH ×4 (08:15)
[2018-09-06] MEDS ORDERED: Furosemide 40 MG/4 ML VIAL IV ONE (08:15)
[2018-09-06] MEDS: Heparin Sodium 5,000 UNITS in Sodium Chloride 0.9% 500 ML IV SCH ×2 (08:23→08:24)
[2018-09-06] MEDS: Aztreonam/Dextrose-Water 1 GM in Premix Bag 1 BAG IV SCH ×3 (08:45→16:58)
[2018-09-06] MEDS: Magnesium Sulfate/Water 2 GM in Premix Bag 1 BAG IV SCH ×2 (08:49→10:17)
--- NOTE | 2018-09-06 10:01 | PCM.PN ---
- General Info Date of Service: 09/06/18 Subjective Update: Overnight there were difficulties with tachycardia and some agitation. Blood gases this morning showed significant respiratory acidosis and CO2 retention. The patient was intubated this morning. She is resting calmly with the ventilator at this time. Blood gases steadily improving and respiratory status stable. Mild agitation responds well to administration of pain medication. Kidney function slightly better today. Blood pressure has been stable. No fevers. Wound cultures are growing Klebsiella and Escherichia coli as well as an anaerobic gram-negative cuco and anaerobic gram-negative cocci. - Review of Systems General: Denies: Fever - Patient Data Vitals - Most Recent: Last Vital Signs Temp 35.4 C 09/06/18 07:00 Pulse 95 09/06/18 09:35 Resp 16 09/06/18 09:00 BP 157/79 H 09/06/18 09:35 Pulse Ox 97 09/06/18 09:00 Weight - Most Recent: 45.359 kg I&O - Last 24 Hours: Intake & Output 09/05/18 09/06/18 09/06/18 22:59 06:59 14:59 Intake Total 2808 Output Total 344 150 515 Balance -344 2658 -515 Lab Results Last 24 Hours: Laboratory Results - last 24 hr 09/05/18 09/06/18 09/06/18 Range/Units 07:04 04:40 05:00 WBC 18.7 H (4.5-11.0) K/uL RBC 3.07 L (3.30-5.50) M/uL Hgb 10.5 L D (12.0-15.0) g/dL Hct 31.4 L (36.0-48.0) % MCV 102 H (80-98) fL MCH 34 H (27-31) pg MCHC 33 (32-36) % Plt Count 222 (150-400) K/uL Puncture Site ABG pH (7.350-7.450) ABG pCO2 (35.0-42.0) mmHg ABG pO2 (75.0-100.0) mmHg ABG HCO3 (22.0-26.0) mmol/L ABG Total CO2 (21.0-25.0) mmol/L ABG O2 Saturation (95.0-98.0) % ABG O2 Content (15.0-23.0) %vol ABG Base Excess mm/L ABG Hemoglobin (12.0-16.0) g/dL ABG Oxyhemoglobin % ABG Carboxyhemoglobin (0.0-1.6) % ABG Methemoglobin % Woody Test O2 Delivery Device Oxygen Flow Rate L Sodium 136 L (140-148) mmol/L Potassium 4.3 (3.6-5.2) mmol/L Chloride 104 (100-108) mmol/L Carbon Dioxide 23 (21-32) mmol/L Anion Gap 13.3 (5.0-14.0) mmol/L BUN 43 H (7-18) mg/dL Creatinine 1.4 H (0.6-1.0) mg/dL Est Cr Clr Drug Dosing 23.71 mL/min Estimated GFR (MDRD) 36 L (>60) Glucose 141 H (74-106) mg/dL Lactic Acid (0.4-2.0) mmol/L Calcium 7.9 L (8.5-10.1) mg/dL Phosphorus 3.8 (2.5-4.9) mg/dL Total Bilirubin 0.2 (0.2-1.0) mg/dL AST 49 H (15-37) U/L ALT 26 (12-78) U/L Alkaline Phosphatase 105 (46-116) U/L NT-Pro-B Natriuret Pep 15292 H (5-450) pg/mL Total Protein 5.5 L (6.4-8.2) g/dL Albumin 1.6 L (3.4-5.0) g/dL Globulin 3.9 H (2.3-3.5) g/dL Albumin/Globulin Ratio 0.4 L (1.2-2.2) Crossmatch See Detail 09/06/18 09/06/18 09/06/18 Range/Units 05:00 05:40 07:30 WBC (4.5-11.0) K/uL RBC (3.30-5.50) M/uL Hgb (12.0-15.0) g/dL Hct (36.0-48.0) % MCV (80-98) fL MCH (27-31) pg MCHC (32-36) % Plt Count (150-400) K/uL Puncture Site L radial Lt radial ABG pH 7.174 L* 7.274 L (7.350-7.450) ABG pCO2 65.6 H 48.1 H (35.0-42.0) mmHg ABG pO2 64.3 L 107.0 H (75.0-100.0) mmHg ABG HCO3 23.2 21.5 L (22.0-26.0) mmol/L ABG Total CO2 22.5 20.5 L (21.0-25.0) mmol/L ABG O2 Saturation 88.1 L 97.8 (95.0-98.0) % ABG O2 Content 13.4 L 14.2 L (15.0-23.0) %vol ABG Base Excess -5.6 -4.7 mm/L ABG Hemoglobin 10.9 L 10.4 L (12.0-16.0) g/dL ABG Oxyhemoglobin 87.0 96.1 % ABG Carboxyhemoglobin 0.5 1.2 (0.0-1.6) % ABG Methemoglobin 0.7 0.5 % Woody Test Ok Passed O2 Delivery Device Nasal cannula Ventilator Oxygen Flow Rate 4 L Sodium (140-148) mmol/L Potassium (3.6-5.2) mmol/L Chloride (100-108) mmol/L Carbon Dioxide (21-32) mmol/L Anion Gap (5.0-14.0) mmol/L BUN (7-18) mg/dL Creatinine (0.6-1.0) mg/dL Est Cr Clr Drug Dosing mL/min Estimated GFR (MDRD) (>60) Glucose (74-106) mg/dL Lactic Acid 1.0 (0.4-2.0) mmol/L Calcium (8.5-10.1) mg/dL Phosphorus (2.5-4.9) mg/dL Total Bilirubin (0.2-1.0) mg/dL AST (15-37) U/L ALT (12-78) U/L Alkaline Phosphatase (46-116) U/L NT-Pro-B Natriuret Pep (5-450) pg/mL Total Protein (6.4-8.2) g/dL Albumin (3.4-5.0) g/dL Globulin (2.3-3.5) g/dL Albumin/Globulin Ratio (1.2-2.2) Crossmatch 09/06/18 Range/Units 09:00 WBC (4.5-11.0) K/uL RBC (3.30-5.50) M/uL Hgb (12.0-15.0) g/dL Hct (36.0-48.0) % MCV (80-98) fL MCH (27-31) pg MCHC (32-36) % Plt Count (150-400) K/uL Puncture Site Lt radial ABG pH 7.333 L (7.350-7.450) ABG pCO2 40.9 (35.0-42.0) mmHg ABG pO2 87.3 (75.0-100.0) mmHg ABG HCO3 21.1 L (22.0-26.0) mmol/L ABG Total CO2 19.7 L (21.0-25.0) mmol/L ABG O2 Saturation 97.0 (95.0-98.0) % ABG O2 Content 14.6 L (15.0-23.0) %vol ABG Base Excess -3.9 mm/L ABG Hemoglobin 10.8 L (12.0-16.0) g/dL ABG Oxyhemoglobin 95.4 % ABG Carboxyhemoglobin 1.2 (0.0-1.6) % ABG Methemoglobin 0.4 % Woody Test Passed O2 Delivery Device Ventilator Oxygen Flow Rate L Sodium (140-148) mmol/L Potassium (3.6-5.2) mmol/L Chloride (100-108) mmol/L Carbon Dioxide (21-32) mmol/L Anion Gap (5.0-14.0) mmol/L BUN (7-18) mg/dL Creatinine (0.6-1.0) mg/dL Est Cr Clr Drug Dosing mL/min Estimated GFR (MDRD) (>60) Glucose (74-106) mg/dL Lactic Acid (0.4-2.0) mmol/L Calcium (8.5-10.1) mg/dL Phosphorus (2.5-4.9) mg/dL Total Bilirubin (0.2-1.0) mg/dL AST (15-37) U/L ALT (12-78) U/L Alkaline Phosphatase (46-116) U/L NT-Pro-B Natriuret Pep (5-450) pg/mL Total Protein (6.4-8.2) g/dL Albumin (3.4-5.0) g/dL Globulin (2.3-3.5) g/dL Albumin/Globulin Ratio (1.2-2.2) Crossmatch Joseph Results Last 24 Hours: Microbiology 09/03/18 12:10 Aerobic Blood Culture - Preliminary Blood - Venous NO GROWTH AFTER 2 DAYS Anaerobic Blood Culture - Preliminary Anaerobic Gram Negative Cuco 09/03/18 12:20 Aerobic Blood Culture - Preliminary Blood - Arm, Left NO GROWTH AFTER 2 DAYS Anaerobic Blood Culture - Preliminary Anaerobic Gram Negative Cuco 09/03/18 18:31 Anaerobic Culture - Preliminary Peritoneal Fluid Anaerobic Gram Negative Cuco Anaerobic Gram Negative Cocci 09/03/18 18:31 Anaerobic Culture - Preliminary Peritoneal Fluid Anaerobic Gram Negative Cuco Anaerobic Gram Negative Cocci 09/04/18 13:33 Gram Stain - Final Abdominal Fluid - Drainage Wound Culture - Final Klebsiella Pneumonia Ss Pneumo Anaerobic Culture - Preliminary NO GROWTH AFTER 2 DAYS 09/04/18 13:32 Gram Stain - Final Abdomen - Drainage Wound Culture - Final Klebsiella Pneumonia Ss Pneumo Anaerobic Culture - Preliminary NO GROWTH AFTER 2 DAYS 09/03/18 18:31 Gram Stain - Final Peritoneal Fluid Wound Culture - Final Escherichia Coli Klebsiella Pneumoniae 09/03/18 18:31 Gram Stain - Final Peritoneal Fluid Wound Culture - Final Escherichia Coli Klebsiella Pneumonia Ss Pneumo Med Orders - Current: Current Medications Ropivacaine 22 ml/Dexamethasone 8 mg/Epinephrine HCl 0.4 mg/ Sodium Chloride 55.6 ml 0 ml NERVRT ASDIRECTED NAHED Hydromorphone HCl (Dilaudid Development Technician 15 Mg In Ns 30 Ml) 0 mg IV ASDIRECTED PRN; Protocol PRN Reason: MECH[employer] 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 [employer] 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 Last Admin: 09/05/18 16:37 Dose: 15 mg Hydroxyzine HCl (Vistaril) 50 mg IM Q4H PRN PRN Reason: Pain Meropenem 500 mg/ Sodium (Chloride) 50 mls @ 100 mls/hr IV Q8H [facility] Last Admin: 09/06/18 05:30 Dose: 100 mls/hr Aztreonam/Dextrose 1 gm/ (Premix) 50 mls @ 100 mls/hr IV Q8H [facility] Last Admin: 09/06/18 09:35 Dose: 100 mls/hr Magnesium Sulfate 2 gm/ Premix 50 mls @ 25 mls/hr IV Q6H [facility] Stop: 09/06/18 11:59 Last Admin: 09/06/18 08:49 Dose: 25 mls/hr Heparin Sodium (Porcine) 5,000 (units/ Sodium Chloride) 501 mls @ 5 mls/hr IV ASDIRECTED [facility] Last Admin: 09/06/18 08:23 Dose: 5 mls/hr Multivitamins/Minerals 10 ml/Chromium/Copper/Manganese/Seleni/Zn 1 ml/ Amino Ac/ Electrol/Dextrose/Calcium 2,011 mls @ 82 mls/hr IV .BY DURATION [facility] Last Admin: 09/05/18 13:32 Dose: 82 mls/hr Amino Ac/Electrol/Dextrose/Calcium (Clinimix E 15) 2,000 mls @ 82 mls/hr IV .BY DURATION [facility] Vancomycin HCl 1 gm/ Sodium (Chloride) 250 mls @ 167 mls/hr IV Q24H [facility] Sodium Chloride (Normal Saline) 1,000 mls @ 100 mls/hr IV ASDIRECTED [facility] Last Admin: 09/06/18 03:30 Dose: 100 mls/hr Heparin Sodium (Porcine) 5,000 (units/ Sodium Chloride) 501 mls @ 5 mls/hr IV ASDIRECTED [facility] Last Admin: 09/06/18 08:24 Dose: 5 mls/hr Propofol (Diprivan 100 Ml) 100 mls @ 1.361 mls/hr IV TITRATE [facility]; Protocol Last Admin: 09/06/18 09:48 Dose: 5 mcg/kg/min, 1.361 mls/hr Lorazepam (Ativan) 0.5 mg IVPUSH Q3H PRN PRN Reason: AGITATION Last Admin: 09/05/18 03:50 Dose: 0.25 mg Metoprolol Tartrate (Lopressor) 5 mg IVPUSH Q6H [facility] Last Admin: 09/06/18 09:35 Dose: 5 mg Naloxone HCl (Narcan) 0.1 mg IV ASDIRECTED PRN PRN Reason: decreased respiratory rate Pantoprazole Sodium (Protonix Iv) 40 mg IV Q24H [facility] Last Admin: 09/05/18 21:31 Dose: 40 mg Discontinued Medications Acetaminophen (Tylenol) 650 mg PO Q4H PRN PRN Reason: Pain (Mild 1-3)/fever Acetaminophen (Tylenol) 650 mg RECTAL Q4H PRN PRN Reason: Mild pain/fever Albuterol (Proventil Neb Soln) 2.5 mg NEB Q4H PRN PRN Reason: Shortness Of Breath/wheezing Albuterol/Ipratropium (Duoneb 3.0-0.5 Mg/3 Ml) 3 ml INH PREPRO ONE Stop: 09/03/18 17:01 Last Admin: 09/03/18 16:25 Dose: 3 ml Aztreonam (Azactam) Confirm Administered Dose 1 gm .ROUTE .STK-MED ONE Stop: 09/03/18 21:44 Last Admin: 09/03/18 22:15 Dose: Not Given Benazepril HCl (Lotensin) 40 mg PO ONETIME ONE Stop: 09/03/18 10:41 Last Admin: 09/03/18 11:00 Dose: 40 mg Ropivacaine 22 ml/Dexamethasone 8 mg/Epinephrine HCl 0.4 mg/ Sodium Chloride 55.6 ml 0 ml NERVRT ASDIRECTED NAHED Ropivacaine 22 ml/Dexamethasone 8 mg/Epinephrine HCl 0.4 mg/ Sodium Chloride 55.6 ml 0 ml NERVRT ASDIRECTED NAHED Last Admin: 09/04/18 14:03 Dose: 80 syringe Dexamethasone (Dexamethasone) Confirm Administered Dose 4 mg .ROUTE .STK-MED ONE Stop: 09/03/18 14:41 Dexamethasone (Dexamethasone) Confirm Administered Dose 4 mg .ROUTE .STK-MED ONE Stop: 09/04/18 09:47 Fentanyl (Sublimaze) 25 mcg IVPUSH ONETIME ONE Stop: 09/03/18 13:57 Last Admin: 09/03/18 14:16 Dose: 25 mcg Fentanyl (Sublimaze) 25 mcg IVPUSH Q2H PRN PRN Reason: Pain (severe 7-10) Fentanyl (Sublimaze) Confirm Administered Dose 250 mcg .ROUTE .STK-MED ONE Stop: 09/03/18 14:41 Fentanyl (Sublimaze) Confirm Administered Dose 250 mcg .ROUTE .STK-MED ONE Stop: 09/04/18 09:46 Fentanyl (Sublimaze) Confirm Administered Dose 250 mcg .ROUTE .STK-MED ONE Stop: 09/04/18 13:57 Furosemide (Lasix) 20 mg IVPUSH ONETIME ONE Stop: 09/04/18 15:10 Last Admin: 09/04/18 15:18 Dose: 20 mg Furosemide (Lasix) 40 mg IV ONETIME ONE Stop: 09/06/18 08:16 Last Admin: 09/06/18 08:26 Dose: 40 mg Glycopyrrolate (Robinul) Confirm Administered Dose 1 mg .ROUTE .STK-MED ONE Stop: 09/03/18 14:41 Glycopyrrolate (Robinul) Confirm Administered Dose 1 mg .ROUTE .STK-MED ONE Stop: 09/04/18 09:47 Heparin Sodium (Porcine) (Heparin Sodium) Confirm Administered Dose 5,000 units .ROUTE .STK-MED ONE Stop: 09/03/18 18:32 Heparin Sodium (Porcine) (Heparin Lock Flush 100 Units/Ml) Confirm Administered Dose 500 units .ROUTE .STK-MED ONE Stop: 09/04/18 13:14 Hydromorphone HCl (Dilaudid) 0.5 mg IVPUSH ONETIME ONE Stop: 09/03/18 10:48 Last Admin: 09/03/18 11:00 Dose: 0.5 mg Hydromorphone HCl (Dilaudid) 0.5 mg IVPUSH ONETIME ONE Stop: 09/03/18 11:22 Last Admin: 09/03/18 11:25 Dose: 0.5 mg Hydromorphone HCl (Dilaudid) 0.5 mg IVPUSH ONETIME ONE Stop: 09/03/18 12:10 Last Admin: 09/03/18 12:12 Dose: 0.5 mg Hydromorphone HCl (Dilaudid) 0.5 mg IVPUSH ONETIME ONE Stop: 09/03/18 12:40 Last Admin: 09/03/18 12:44 Dose: 0.5 mg Hydromorphone HCl (Dilaudid) 1 mg IVPUSH ONETIME ONE Stop: 09/03/18 12:57 Last Admin: 09/03/18 13:00 Dose: 1 mg Sodium Chloride (Normal Saline) 1,000 mls @ 1,000 mls/hr IV .BOLUS ONE Stop: 09/03/18 12:17 Last Admin: 09/03/18 11:25 Dose: 1,000 mls/hr Piperacillin/Tazobactam/ (Dextrose 4.5 gm/ Premix) 100 mls @ 200 mls/hr IV ONETIME ONE Stop: 09/03/18 13:29 Last Admin: 09/03/18 13:04 Dose: 200 mls/hr Sodium Chloride (Normal Saline) 1,000 mls @ 500 mls/hr IV ASDIRECTED [facility] Last Admin: 09/03/18 13:00 Dose: 500 mls/hr Lactated Ringer's (Ringers, Lactated) 1,000 mls @ 125 mls/hr IV ASDIRECTED [facility] Last Admin: 09/03/18 16:07 Dose: 125 mls/hr Aztreonam 2 gm/ Sodium (Chloride) 100 mls @ 200 mls/hr IV NOW ONE Stop: 09/03/18 15:29 Last Admin: 09/03/18 14:56 Dose: 200 mls/hr Meropenem 500 mg/ Sodium (Chloride) 50 mls @ 100 mls/hr IV ONCALL ONE Stop: 09/03/18 17:29 Last Admin: 09/03/18 16:25 Dose: 100 mls/hr Piperacillin/Tazobactam/ (Dextrose 3.375 gm/ Premix) 50 mls @ 100 mls/hr IV Q6H [facility] Last Admin: 09/03/18 22:15 Dose: Not Given Sodium Chloride (Normal Saline) Confirm Administered Dose 500 mls @ as directed .ROUTE .STK-MED ONE Stop: 09/03/18 18:33 Aztreonam/Dextrose 1 gm/ (Premix) 50 mls @ 100 mls/hr IV Q8HR [facility] Sodium Chloride (Normal Saline) Confirm Administered Dose 50 mls @ as directed .ROUTE .STK-MED ONE Stop: 09/03/18 22:01 Last Admin: 09/03/18 22:21 Dose: Not Given Aztreonam/Dextrose 1 gm/ (Premix) 50 mls @ 100 mls/hr IV Q8H [facility] Last Admin: 09/04/18 07:30 Dose: Not Given Dextrose/Lactated Ringer's (Dextrose 5%-Lactated Ringers) 1,000 mls @ 100 mls/ hr IV ASDIRECTED PRN PRN Reason: Hypotension Dextrose/Lactated Ringer's (Dextrose 5%-Lactated Ringers) 1,000 mls @ 100 mls/ hr IV ASDIRECTED [facility] Last Admin: 09/05/18 02:13 Dose: 100 mls/hr Lactated Ringer's (Ringers, Lactated) 1,000 mls @ 100 mls/hr IV ASDIRECTED NAHED Last Admin: 09/04/18 04:20 Dose: 100 mls/hr Lactated Ringer's (Ringers, Lactated) 500 mls @ 500 mls/hr IV .BOLUS NAHED Last Admin: 09/04/18 01:10 Dose: 500 mls/hr Lactated Ringer's (Ringers, Lactated) 500 mls @ 500 mls/hr IV .BOLUS NAHED Last Admin: 09/04/18 03:13 Dose: 500 mls/hr Propofol (Diprivan 100 Ml) 100 mls @ 1.361 mls/hr IV TITRATE NAHED; Protocol Last Titration: 09/04/18 07:52 Dose: 14 mcg/kg/min, 3.81 mls/hr Propofol (Diprivan 100 Ml) Confirm Administered Dose 100 mls @ as directed .ROUTE .STK-MED ONE Stop: 09/04/18 03:45 Last Admin: 09/04/18 03:59 Dose: Not Given Lactated Ringer's (Ringers, Lactated) 500 mls @ 999 mls/hr IV .BOLUS NAHED Last Admin: 09/04/18 06:10 Dose: 999 mls/hr Lactated Ringer's (Ringers, Lactated) 500 mls @ 500 mls/hr IV ASDIRECTED NAHED Last Admin: 09/04/18 21:04 Dose: 500 mls/hr Lactated Ringer's (Ringers, Lactated) Confirm Administered Dose 1,000 mls @ as directed .ROUTE .STK-MED ONE Stop: 09/04/18 13:11 Lactated Ringer's (Ringers, Lactated) Confirm Administered Dose 1,000 mls @ as directed .ROUTE .STK-MED ONE Stop: 09/04/18 13:11 Sodium Chloride (Normal Saline) Confirm Administered Dose 10 mls @ as directed .ROUTE .STK-MED ONE Stop: 09/04/18 13:15 Lactated Ringer's (Ringers, Lactated) 500 mls @ 500 mls/hr IV ASDIRECTED NAHED Stop: 09/04/18 17:46 Lactated Ringer's (Ringers, Lactated) 500 mls @ 500 mls/hr IV ONETIME ONE Stop: 09/04/18 19:29 Last Admin: 09/04/18 18:37 Dose: 500 mls/hr Lactated Ringer's (Ringers, Lactated) 500 mls @ 1,000 mls/hr IV ONETIME ONE Stop: 09/04/18 23:30 Last Admin: 09/04/18 23:18 Dose: 1,000 mls/hr Lactated Ringer's (Ringers, Lactated) 500 mls @ 1,000 mls/hr IV ONETIME ONE Stop: 09/05/18 01:44 Last Admin: 09/05/18 01:15 Dose: 1,000 mls/hr Lactated Ringer's (Ringers, Lactated) 1,000 mls @ 150 mls/hr IV ASDIRECTED [facility] Last Admin: 09/05/18 02:13 Dose: 150 mls/hr Lactated Ringer's (Ringers, Lactated) 500 mls @ 1,000 mls/hr IV ONETIME ONE Stop: 09/05/18 03:38 Last Admin: 09/05/18 03:15 Dose: 1,000 mls/hr Multivitamins/Minerals 10 ml/Chromium/Copper/Manganese/Seleni/Zn 1 ml/ Amino Ac/ Electrol/Dextrose/Calcium 2,011 mls @ 82 mls/hr IV .BY DURATION [facility] Stop: 09/05/18 13:25 Last Admin: 09/05/18 13:32 Dose: Not Given Amino Ac/Electrol/Dextrose/Calcium (Clinimix E 5/15) 2,000 mls @ 82 mls/hr IV .BY DURATION [facility] Stop: 09/05/18 13:25 Vancomycin HCl 1 gm/ Sodium (Chloride) 250 mls @ 167 mls/hr IV Q24H [facility] Last Admin: 09/05/18 12:34 Dose: 167 mls/hr Sodium Chloride (Normal Saline) 1,000 mls @ 50 mls/hr IV ASDIRECTED [facility] Last Admin: 09/05/18 12:51 Dose: 50 mls/hr Sodium Chloride (Normal Saline) 500 mls @ 500 mls/hr IV ASDIRECTED ONE Stop: 09/05/18 16:29 Last Admin: 09/05/18 15:40 Dose: 500 mls/hr Lorazepam (Ativan) 0.5 mg IVPUSH Q4H PRN PRN Reason: Nausea/Vomiting Meropenem (Merrem) Confirm Administered Dose 1,000 mg .ROUTE .STK-MED ONE Stop: 09/03/18 17:54 Last Admin: 09/03/18 18:32 Dose: 3,500 mg Meropenem (Merrem) Confirm Administered Dose 1,000 mg .ROUTE .STK-MED ONE Stop: 09/03/18 18:04 Meropenem (Merrem) Confirm Administered Dose 2,000 mg .ROUTE .STK-MED ONE Stop: 09/03/18 18:18 Metoprolol Tartrate (Lopressor) 25 mg PO ONETIME ONE Stop: 09/03/18 10:41 Last Admin: 09/03/18 11:00 Dose: 25 mg Neostigmine Methylsulfate (Neostigmine) Confirm Administered Dose 5 mg .ROUTE .STK-MED ONE Stop: 09/03/18 14:41 Neostigmine Methylsulfate (Neostigmine) Confirm Administered Dose 5 mg .ROUTE .STK-MED ONE Stop: 09/04/18 09:47 Ondansetron HCl (Zofran Odt) 4 mg PO Q6H PRN PRN Reason: Nausea able to take PO Ondansetron HCl (Zofran) 4 mg IV Q6H PRN PRN Reason: Nausea/Vomiting Ondansetron HCl (Zofran) Confirm Administered Dose 4 mg .ROUTE .STK-MED ONE Stop: 09/03/18 14:41 Ondansetron HCl (Zofran) Confirm Administered Dose 4 mg .ROUTE .STK-MED ONE Stop: 09/04/18 09:47 Pantoprazole Sodium (Protonix Iv) 40 mg IV Q12H [facility] Last Admin: 09/03/18 16:07 Dose: 40 mg Piperacillin Sod/Tazobactam Sod (Zosyn) 10.125 gm .XX ASDIRECTED [facility] Stop: 09/04/18 15:00 Last Admin: 09/04/18 14:04 Dose: 10.125 gm Propofol (Diprivan 20 Ml) Confirm Administered Dose 200 mg .ROUTE .STK-MED ONE Stop: 09/03/18 14:41 Propofol (Diprivan 20 Ml) Confirm Administered Dose 200 mg .ROUTE .STK-MED ONE Stop: 09/04/18 09:47 Propofol (Diprivan 20 Ml) Confirm Administered Dose 200 mg .ROUTE .STK-MED ONE Stop: 09/06/18 07:01 Rocuronium [place] (Zemuron) Confirm Administered Dose 50 mg .ROUTE .STK-MED ONE Stop: 09/03/18 14:41 Rocuronium [place] (Zemuron) Confirm Administered Dose 50 mg .ROUTE .STK-MED ONE Stop: 09/04/18 09:47 Succinylcholine Chloride (Quelicin) Confirm Administered Dose 200 mg .ROUTE .STK -MED ONE Stop: 09/03/18 14:41 Succinylcholine Chloride (Quelicin) Confirm Administered Dose 200 mg .ROUTE .STK -MED ONE Stop: 09/04/18 09:47 Succinylcholine Chloride (Quelicin) Confirm Administered Dose 200 mg .ROUTE .STK -MED ONE Stop: 09/06/18 07:01 - Exam Quality Assessment: Supplemental Oxygen General: Alert, No Acute Distress, Sedated HEENT: Pupils Equal Lungs: Normal Respiratory Effort, Decreased Breath Sounds (both bases), Crackles (both bases) Cardiovascular: Regular Rate, Regular Rhythm GI/Abdominal Exam: No Distention, Guarding, Abnormal Bowel Sounds (hypoactive) Extremities: Pedal Edema, Other (edema both arms) Skin: Warm, Dry Psy/Mental Status: Alert. No: Agitated - Problem List & Annotations (1) Diverticulitis of colon with perforation SNOMED Code(s): 02751136 Code(s): K57.20 - DVTRCLI OF LG INT W PERFORATION AND ABSCESS W/O BLEEDING Status: Acute Current Visit: Yes Qualifiers: Diverticulitis bleeding: without bleeding Qualified Code(s): K57.20 - Diverticulitis of large intestine with perforation and abscess without bleeding (2) Sepsis SNOMED Code(s): 87661415 Code(s): A41.9 - SEPSIS, UNSPECIFIED ORGANISM Status: Acute Current Visit : Yes Qualifiers: Sepsis type: sepsis due to unspecified organism Qualified Code(s): A41.9 - Sepsis, unspecified organism (3) Acute kidney injury SNOMED Code(s): 38916701 Code(s): N17.9 - ACUTE KIDNEY FAILURE, UNSPECIFIED Status: Acute Current Visit: Yes (4) Leukopenia SNOMED Code(s): 13707629, 578441757 Code(s): D72.819 - DECREASED WHITE BLOOD CELL COUNT, UNSPECIFIED Status: Acute Current Visit: Yes Qualifiers: Leukopenia type: neutropenia Neutropenia type: other Qualified Code(s): D70.8 - Other neutropenia - Problem List Review Problem List Initiated/Reviewed/Updated: Yes - My Orders Last 24 Hours: My Active Orders 09/05/18 15:30 Sodium Chloride 0.9% [Normal Saline] 1,000 ml IV ASDIRECTED 09/06/18 09:12 RASS Sedation Scale [RC] ASDIRECTED Desired Level of Sedation (RASS) [AST] Click to Edit 09/06/18 09:14 Nrsg Assess Restraint Init/Mon [RC] Q1H 09/06/18 09:15 Initiate/Renew Non-Violent Restraints (All Ages) Q24H 09/06/18 09:45 Propofol [Diprivan 100 ML] 100 ml IV TITRATE 09/06/18 12:30 Vancomycin 1 gm Sodium Chloride 0.9% [Normal Saline] 250 ml IV Q24H 09/07/18 09:14 Nrsg NV Restr Reassessment [RC] Q24H - Plan Plan:: ASSESSMENT AND PLAN - Perforated sigmoid colon with sepsis - Initial surgical resection on 09/03 and Second Look laparotomy on 09/04. Sepsis has resolved. Cultures growing Klebsiella , Escherichia coli and anaerobic bacteria. No fevers. No return of bowel function as of yet. -Continue Meropenem, aztreonam and add vancomycin until cultures are complete -Continue IV fluids -Pain control with [employer] DRAWING [employer] -Follow-up cultures Acute respiratory failure with hypoxia and hypercapnia - likely multifactorial with fatigue, hypoventilation and possible component of fluid. She is now intubated and mechanically ventilated. She is stable with mechanical ventilation. CVP is currently 18 and she will be receiving furosemide. BNP is quite elevated but there is no history of congestive heart failure. -Continue mechanical ventilation -Sedation is needed to avoid significant agitation -Soft wrist restraints -Optimize volume status -Echo in the morning Acute kidney injury - likely related to sepsis and function has finally started to improve. -Management as above -Repeat labs in the morning Hyperactive delirium - probably combination of infection and anesthesia as well as a medications. She is now lightly sedated with her intubation. -Symptomatically management and treatment of the above conditions Leukopenia - probably related to sepsis and level has been improving. Maintenance issues - - DVT prophylaxis - mechanical - GI prophylaxis - PPI - Nutrition - nothing by mouth - Rubin catheter - placed for strict intake and output monitoring and a critical patient Disposition - I would anticipate discharge home after the hospital stay Santana Cunningham M.D.
[2018-09-06] MEDS: 1: AA 5%/Calcium/D15W/Lytes 2,000 ML with MVI, Adult with Vitamin K 10 ML, Chromium/Copp IV SCH ×3 (14:19)
--- NOTE | 2018-09-06 16:40 | PN ---
CORRECTED REPORT DATE OF SERVICE: 09/04/2018 The patient has been doing clinically reasonably stable. Overnight, she has required some additional IV fluids for lower urine outputs. She appeared to be comfortable and ventilating well without development of ARDS or significant oxygenation issues. The blood pressures have been satisfactory. Generally, urine output has been reasonably good. Blood gases look satisfactory. There is a little bit concerning with regard to low white count and some slight elevation of lactate. We will plan to proceed with second-look laparotomy with additional washout. The patient also remained inflammatory fluid collection in the abdomen then we will check bowel status at that point as well. Central line will be inserted as we likely want to begin some TPN probably by Friday i.e., tomorrow and certainly the operation will be done earlier this afternoon. Potential risks of the procedure were reviewed with the and earlier with son last night and wishes to proceed. Otherwise, we will continue the present antibiotic regimen. Christiano Estrada MD /[id number]
--- NOTE | 2018-09-06 17:26 | ANES ---
DATE OF SERVICE: 09/06/2018 INDICATION: Tina is a 77-year-old female, patient of Dr. Santana Cunningham, in our intensive care unit. I was requested to intubate the patient in a stat manner. On arrival to the room, I found a 77-year-old female, who has well aware with history and allergies and lab work, in respiratory distress. DESCRIPTION OF PROCEDURE: I oxygenated her with an Ambu bag. Saturations were 97%, blood pressure 137/80, heart rate 110. After 100 mg of propofol, I was able to access her oral cavity. I was able to visualize the posterior oropharynx as well as the epiglottis, and I found some exudate over the vocal cords. Throughout the procedure, I had cricoid pressure being held. 7.5 endotracheal tube was then placed between the vocal cords after suction and ventilated per Ambu bag. Equal chest rise, a fog in the tube. Bilateral lung sounds per auscultation and saturation 200%, and vitals within normal limits. Please refer to nurse's notes. I reported off to nurse. The tube was secured by [facility], and the patient was started on the ventilator, tolerated it quite well. Haile Doe CRNA /[id number]
--- NOTE | 2018-09-06 18:04 | PN ---
DATE OF SERVICE: 09/06/2018 The patient appeared to have reasonably stable night. On blood gases this morning, she was noted to be markedly acidotic with pH of 7.17 and pCO2 of 65, and she remained afebrile. did intubate the patient. She has a patchy airspace disease on the chest x-ray with small bilateral pleural effusions. The secretions appeared to be very scant, so I think we are probably dealing with ARDS. Of note, her BNP is down somewhat from previous levels although it has remained 22,600 mL. Otherwise, urine output has been satisfactory, level of consciousness remains somewhat impaired related to probably the pain medications and such. Otherwise, we are planning to close her wound tomorrow and we are planning to do that tomorrow morning at the bedside as we are allowing the things settle down somewhat today. We will continue present antibiotics and TPN. Christiano Estrada MD /[id number]
--- NOTE | 2018-09-06 19:49 | ANES ---
DATE OF SERVICE: 09/06/2018 INDICATION: A 77-year-old female, patient of Dr. Santana Cunningham in our intensive care unit. I was requested to replace the arterial line, I guess it was removed on positioning patient. Upon arrival, the patient is intubated. Vitals within normal limits. Please refer to nurse's notes for vital signs and neuro status, which were unchanged. With sterile prep to the left radial art line, it was noted there were multiple access attempts prior to my arrival. On third attempt, I was able to access the left radial artery. I had significant blood flow and good waveform on the art line after catheter was secured. It was sutured in place, again it was done with sterile technique. She tolerated the procedure quite well. I informed the nurse how I secured it. Haile Doe CRNA /[id number]
[2018-09-06] MEDS: Pantoprazole 40 MG Vial IV SCH (21:36)
[2018-09-07] MEDS: Aztreonam/Dextrose-Water 1 GM in Premix Bag 1 BAG IV SCH ×2 (01:13→08:15)
[2018-09-07] MEDS: Metoprolol Tartrate 5 MG/5 ML SDV IVPUSH SCH ×4 (03:30→21:46)
--- NOTE | 2018-09-07 04:57 | CRLCR ---
INDICATION: Intubated TECHNIQUE: Chest 1 views COMPARISON: Chest x-ray 09/06/2018 FINDINGS: Cardiovascular and mediastinum: Normal heart size with atherosclerotic calcification. Endotracheal tube at the midtrachea level. Nasogastric tube extends below the hemidiaphragm. Left subclavian line with tip extending cephalad into the jugular vein. Lungs and pleural spaces: Small bilateral pleural effusions with patchy bilateral airspace opacities. Bones and soft tissues: No significant findings. IMPRESSION: 1. Small bilateral pleural effusions with patchy airspace disease fairly similar to the prior exam. 2. Life support devices as described above with note again made of abnormal position of a left subclavian line with tip extending into the jugular vein. Dictated by Keven Cronin MD @ Sep 07 2018 4:52AM Signed by Dr. Keven Cronin @ Sep 07 2018 4:54AM
[2018-09-07] MEDS: Meropenem 500 MG in Sodium Chloride 0.9% 50 ML IV SCH ×3 (05:34→21:47)
[2018-09-07] MEDS ORDERED: Meropenem 500 MG SDV ONE (06:47)
[2018-09-07] MEDS ORDERED: Lidocaine 1% with EPINEPHrine 1:100,000 50 ML MDV ONE (06:47)
[2018-09-07] MEDS ORDERED: Bupivacaine 0.5% 50 ML MDV ONE (06:47)
[2018-09-07] MEDS: Sodium Chloride 0.9% 1,000 ML IV SCH (07:31)
[2018-09-07] MEDS ORDERED: Ropivacaine 22 ML, dexAMETHasone 8 MG, EPINEPHrine 0.4 MG, Sodium Chloride 0.9% 55.6 ML NERVRT SCH ×4 (08:00)
[2018-09-07] MEDS: Furosemide 20 MG/2 ML VIAL IV SCH ×2 (08:25→20:10)
[2018-09-07] MEDS: Potassium Phosphates 20 MMOLE in Sodium Chloride 0.9% 100 ML IV SCH ×3 (09:03→15:01)
--- NOTE | 2018-09-07 10:30 | PCM.PN ---
- General Info Date of Service: 09/07/18 Subjective Update: Ms. Muniz is a 77-year-old woman who was admitted through the emergency department with sigmoid colon perforation requiring surgery with partial colon resection and creation of a colostomy. Postoperative course complicated by hypercapnic respiratory failure, requiring reintubation yesterday morning. She' s been relatively stable since then, continues to have an elevated white blood cell count. Currently undergoing delayed primary closure. Echocardiogram obtained this morning shows low normal left ventricular function. She is unable to provide significant information concerning symptoms or review of systems because respiratory failure with intubation and mechanical ventilation. - Patient Data Vitals - Most Recent: Last Vital Signs Temp 97.2 F 09/07/18 07:57 Pulse 113 H 09/07/18 07:57 Resp 20 09/07/18 07:57 BP 154/88 H 09/07/18 07:57 Pulse Ox 95 09/07/18 07:57 Weight - Most Recent: 100 lb I&O - Last 24 Hours: Intake & Output 09/06/18 09/07/18 09/07/18 22:59 06:59 14:59 Intake Total 2419 2451 156 Output Total 1200 760 500 Balance 1219 1691 -344 Lab Results Last 24 Hours: Laboratory Results - last 24 hr 09/06/18 09/06/18 09/07/18 Range/Units 16:59 17:00 04:50 WBC 21.9 H (4.5-11.0) K/uL RBC 2.87 L (3.30-5.50) M/uL Hgb 9.7 L (12.0-15.0) g/dL Hct 28.0 L (36.0-48.0) % MCV 98 (80-98) fL MCH 34 H (27-31) pg MCHC 35 (32-36) % Plt Count 215 (150-400) K/uL Puncture Site Line ABG pH 7.412 (7.350-7.450) ABG pCO2 37.9 (35.0-42.0) mmHg ABG pO2 92.7 (75.0-100.0) mmHg ABG HCO3 23.6 (22.0-26.0) mmol/L ABG Total CO2 21.9 (21.0-25.0) mmol/L ABG O2 Saturation 97.6 (95.0-98.0) % ABG O2 Content 13.5 L (15.0-23.0) %vol ABG Base Excess -0.3 mm/L ABG Hemoglobin 10.0 L (12.0-16.0) g/dL ABG Oxyhemoglobin 95.8 % ABG Carboxyhemoglobin 1.3 (0.0-1.6) % ABG Methemoglobin 0.5 % Woody Test TNP O2 Delivery Device Ventilator Oxygen Flow Rate L Sodium 137 L (140-148) mmol/L Potassium 3.7 (3.6-5.2) mmol/L Chloride 105 (100-108) mmol/L Carbon Dioxide 24 (21-32) mmol/L Anion Gap 11.7 (5.0-14.0) mmol/L BUN 49 H (7-18) mg/dL Creatinine 1.2 H (0.6-1.0) mg/dL Est Cr Clr Drug Dosing 27.67 mL/min Estimated GFR (MDRD) 43 L (>60) Glucose 148 H (74-106) mg/dL Calcium 7.7 L (8.5-10.1) mg/dL Phosphorus 2.5 (2.5-4.9) mg/dL Total Bilirubin (0.2-1.0) mg/dL AST (15-37) U/L ALT (12-78) U/L Alkaline Phosphatase (46-116) U/L NT-Pro-B Natriuret Pep 53448 H (5-450) pg/mL Total Protein (6.4-8.2) g/dL Albumin (3.4-5.0) g/dL Globulin (2.3-3.5) g/dL Albumin/Globulin Ratio (1.2-2.2) 09/07/18 09/07/18 Range/Units 04:50 04:50 WBC (4.5-11.0) K/uL RBC (3.30-5.50) M/uL Hgb (12.0-15.0) g/dL Hct (36.0-48.0) % MCV (80-98) fL MCH (27-31) pg MCHC (32-36) % Plt Count (150-400) K/uL Puncture Site Line ABG pH 7.428 (7.350-7.450) ABG pCO2 38.3 (35.0-42.0) mmHg ABG pO2 103.0 H (75.0-100.0) mmHg ABG HCO3 24.9 (22.0-26.0) mmol/L ABG Total CO2 23.0 (21.0-25.0) mmol/L ABG O2 Saturation 98.2 H (95.0-98.0) % ABG O2 Content 13.5 L (15.0-23.0) %vol ABG Base Excess 1.1 mm/L ABG Hemoglobin 9.8 L (12.0-16.0) g/dL ABG Oxyhemoglobin 96.5 % ABG Carboxyhemoglobin 1.1 (0.0-1.6) % ABG Methemoglobin 0.6 % Woody Test O2 Delivery Device Ventilator Oxygen Flow Rate L Sodium 139 L (140-148) mmol/L Potassium 3.3 L (3.6-5.2) mmol/L Chloride 106 (100-108) mmol/L Carbon Dioxide 25 (21-32) mmol/L Anion Gap 11.3 (5.0-14.0) mmol/L BUN 49 H (7-18) mg/dL Creatinine 1.0 (0.6-1.0) mg/dL Est Cr Clr Drug Dosing 33.20 mL/min Estimated GFR (MDRD) 54 L (>60) Glucose 129 H (74-106) mg/dL Calcium 7.5 L (8.5-10.1) mg/dL Phosphorus 2.3 L (2.5-4.9) mg/dL Total Bilirubin 0.2 (0.2-1.0) mg/dL AST 29 (15-37) U/L ALT 20 (12-78) U/L Alkaline Phosphatase 108 (46-116) U/L NT-Pro-B Natriuret Pep 15238 H (5-450) pg/mL Total Protein 4.7 L (6.4-8.2) g/dL Albumin 1.2 L (3.4-5.0) g/dL Globulin 3.5 (2.3-3.5) g/dL Albumin/Globulin Ratio 0.3 L (1.2-2.2) Joseph Results Last 24 Hours: Microbiology 09/04/18 13:33 Gram Stain - Final Abdominal Fluid - Drainage Wound Culture - Final Klebsiella Pneumonia Ss Pneumo Anaerobic Culture - Final NO GROWTH AFTER 3 DAYS 09/04/18 13:32 Gram Stain - Final Abdomen - Drainage Wound Culture - Final Klebsiella Pneumonia Ss Pneumo Anaerobic Culture - Final NO GROWTH AFTER 3 DAYS 09/03/18 18:31 Anaerobic Culture - Final Peritoneal Fluid Anaerobic Gram Negative Cuco Anaerobic Gram Negative Cocci 09/03/18 18:31 Anaerobic Culture - Final Peritoneal Fluid Anaerobic Gram Negative Cuco Anaerobic Gram Negative Cocci 09/03/18 12:10 Aerobic Blood Culture - Preliminary Blood - Venous NO GROWTH AFTER 3 DAYS Anaerobic Blood Culture - Final Anaerobic Gram Negative Cuco 09/03/18 12:20 Aerobic Blood Culture - Preliminary Blood - Arm, Left NO GROWTH AFTER 3 DAYS Anaerobic Blood Culture - Final Anaerobic Gram Negative Cuco 09/07/18 05:22 Gram Stain - Final Endotrachial Tube 09/03/18 18:31 Gram Stain - Final Peritoneal Fluid Wound Culture - Final Escherichia Coli Klebsiella Pneumoniae 09/03/18 18:31 Gram Stain - Final Peritoneal Fluid Wound Culture - Final Escherichia Coli Klebsiella Pneumonia Ss Pneumo Med Orders - Current: Current Medications Ropivacaine 22 ml/Dexamethasone 8 mg/Epinephrine HCl 0.4 mg/ Sodium Chloride 55.6 ml 0 ml NERVRT ASDIRECTED [facility] Furosemide (Lasix) 20 mg IV Q12H [facility] Stop: 09/07/18 20:01 Last Admin: 09/07/18 08:25 Dose: 20 mg Hydromorphone HCl (Dilaudid Plant Control Aide 15 Mg In Ns 30 Ml) 0 mg IV ASDIRECTED PRN; Protocol PRN Reason: DATA ANALYTICS ANALYST 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 Last Admin: 09/05/18 16:37 Dose: 15 mg Hydroxyzine HCl (Vistaril) 50 mg IM Q4H PRN PRN Reason: Pain Meropenem 500 mg/ Sodium (Chloride) 50 mls @ 100 mls/hr IV Q8H [facility] Last Admin: 09/07/18 05:34 Dose: 100 mls/hr Aztreonam/Dextrose 1 gm/ (Premix) 50 mls @ 100 mls/hr IV Q8H [facility] Last Admin: 09/07/18 08:15 Dose: 100 mls/hr Heparin Sodium (Porcine) 5,000 (units/ Sodium Chloride) 501 mls @ 5 mls/hr IV ASDIRECTED [facility] Last Admin: 09/06/18 08:23 Dose: 5 mls/hr Multivitamins/Minerals 10 ml/Chromium/Copper/Manganese/Seleni/Zn 1 ml/ Amino Ac/ Electrol/Dextrose/Calcium 2,011 mls @ 82 mls/hr IV .BY DURATION [facility] Last Admin: 09/06/18 14:19 Dose: 82 mls/hr Amino Ac/Electrol/Dextrose/Calcium (Clinimix E 09/23) 2,000 mls @ 82 mls/hr IV .BY DURATION [facility] Vancomycin HCl 1 gm/ Sodium (Chloride) 250 mls @ 167 mls/hr IV Q24H [facility] Last Admin: 09/06/18 12:00 Dose: 167 mls/hr Heparin Sodium (Porcine) 5,000 (units/ Sodium Chloride) 501 mls @ 5 mls/hr IV ASDIRECTED [facility] Last Admin: 09/06/18 08:24 Dose: 5 mls/hr Propofol (Diprivan 100 Ml) 100 mls @ 1.361 mls/hr IV TITRATE [facility]; Protocol Last Admin: 09/07/18 10:06 Dose: 35 mcg/kg/min, 9.525 mls/hr Potassium Phosphate 20 mmole/ (Sodium Chloride) 106.6667 mls @ 35 mls/hr IV Q3H [facility] Stop: 09/07/18 17:29 Last Admin: 09/07/18 09:03 Dose: 35 mls/hr Albumin Human (Albumin 25%) 25 gm in 100 mls @ 25 mls/hr IV DAILY [facility] Stop: 09/09/18 12:59 Albumin Human (Albumin 25%) 25 gm in 100 mls @ 25 mls/hr IV Q24H [facility] Stop: 09/09/18 17:59 Sodium Chloride (Normal Saline) 1,000 mls @ 0 mls/hr IV ASDIRECTED [facility] Lorazepam (Ativan) 0.5 mg IVPUSH Q3H PRN PRN Reason: AGITATION Last Admin: 09/05/18 03:50 Dose: 0.25 mg Metoprolol Tartrate (Lopressor) 5 mg IVPUSH Q6H [facility] Last Admin: 09/07/18 03:30 Dose: 5 mg Naloxone HCl (Narcan) 0.1 mg IV ASDIRECTED PRN PRN Reason: decreased respiratory rate Pantoprazole Sodium (Protonix Iv) 40 mg IV Q24H [facility] Last Admin: 09/06/18 21:36 Dose: 40 mg Discontinued Medications Acetaminophen (Tylenol) 650 mg PO Q4H PRN PRN Reason: Pain (Mild 1-3)/fever Acetaminophen (Tylenol) 650 mg RECTAL Q4H PRN PRN Reason: Mild pain/fever Albuterol (Proventil Neb Soln) 2.5 mg NEB Q4H PRN PRN Reason: Shortness Of Breath/wheezing Albuterol/Ipratropium (Duoneb 3.0-0.5 Mg/3 Ml) 3 ml INH PREPRO ONE Stop: 09/03/18 17:01 Last Admin: 09/03/18 16:25 Dose: 3 ml Aztreonam (Azactam) Confirm Administered Dose 1 gm .ROUTE .STK-MED ONE Stop: 09/03/18 21:44 Last Admin: 09/03/18 22:15 Dose: Not Given Benazepril HCl (Lotensin) 40 mg PO ONETIME ONE Stop: 09/03/18 10:41 Last Admin: 09/03/18 11:00 Dose: 40 mg Bupivacaine HCl (Marcaine 0.5%) Confirm Administered Dose 50 ml .ROUTE .STK-MED ONE Stop: 09/07/18 06:48 Ropivacaine 22 ml/Dexamethasone 8 mg/Epinephrine HCl 0.4 mg/ Sodium Chloride 55.6 ml 0 ml NERVRT ASDIRECTED [facility] Ropivacaine 22 ml/Dexamethasone 8 mg/Epinephrine HCl 0.4 mg/ Sodium Chloride 55.6 ml 0 ml NERVRT ASDIRECTED [facility] Last Admin: 09/04/18 14:03 Dose: 80 syringe Dexamethasone (Dexamethasone) Confirm Administered Dose 4 mg .ROUTE .STK-MED ONE Stop: 09/03/18 14:41 Dexamethasone (Dexamethasone) Confirm Administered Dose 4 mg .ROUTE .STK-MED ONE Stop: 09/04/18 09:47 Fentanyl (Sublimaze) 25 mcg IVPUSH ONETIME ONE Stop: 09/03/18 13:57 Last Admin: 09/03/18 14:16 Dose: 25 mcg Fentanyl (Sublimaze) 25 mcg IVPUSH Q2H PRN PRN Reason: Pain (severe 7-10) Fentanyl (Sublimaze) Confirm Administered Dose 250 mcg .ROUTE .STK-MED ONE Stop: 09/03/18 14:41 Fentanyl (Sublimaze) Confirm Administered Dose 250 mcg .ROUTE .STK-MED ONE Stop: 09/04/18 09:46 Fentanyl (Sublimaze) Confirm Administered Dose 250 mcg .ROUTE .STK-MED ONE Stop: 09/04/18 13:57 Furosemide (Lasix) 20 mg IVPUSH ONETIME ONE Stop: 09/04/18 15:10 Last Admin: 09/04/18 15:18 Dose: 20 mg Furosemide (Lasix) 40 mg IV ONETIME ONE Stop: 09/06/18 08:16 Last Admin: 09/06/18 08:26 Dose: 40 mg Glycopyrrolate (Robinul) Confirm Administered Dose 1 mg .ROUTE .STK-MED ONE Stop: 09/03/18 14:41 Glycopyrrolate (Robinul) Confirm Administered Dose 1 mg .ROUTE .STK-MED ONE Stop: 09/04/18 09:47 Heparin Sodium (Porcine) (Heparin Sodium) Confirm Administered Dose 5,000 units .ROUTE .STK-MED ONE Stop: 09/03/18 18:32 Heparin Sodium (Porcine) (Heparin Lock Flush 100 Units/Ml) Confirm Administered Dose 500 units .ROUTE .STK-MED ONE Stop: 09/04/18 13:14 Hydromorphone HCl (Dilaudid) 0.5 mg IVPUSH ONETIME ONE Stop: 09/03/18 10:48 Last Admin: 09/03/18 11:00 Dose: 0.5 mg Hydromorphone HCl (Dilaudid) 0.5 mg IVPUSH ONETIME ONE Stop: 09/03/18 11:22 Last Admin: 09/03/18 11:25 Dose: 0.5 mg Hydromorphone HCl (Dilaudid) 0.5 mg IVPUSH ONETIME ONE Stop: 09/03/18 12:10 Last Admin: 09/03/18 12:12 Dose: 0.5 mg Hydromorphone HCl (Dilaudid) 0.5 mg IVPUSH ONETIME ONE Stop: 09/03/18 12:40 Last Admin: 09/03/18 12:44 Dose: 0.5 mg Hydromorphone HCl (Dilaudid) 1 mg IVPUSH ONETIME ONE Stop: 09/03/18 12:57 Last Admin: 09/03/18 13:00 Dose: 1 mg Sodium Chloride (Normal Saline) 1,000 mls @ 1,000 mls/hr IV .BOLUS ONE Stop: 09/03/18 12:17 Last Admin: 09/03/18 11:25 Dose: 1,000 mls/hr Piperacillin/Tazobactam/ (Dextrose 4.5 gm/ Premix) 100 mls @ 200 mls/hr IV ONETIME ONE Stop: 09/03/18 13:29 Last Admin: 09/03/18 13:04 Dose: 200 mls/hr Sodium Chloride (Normal Saline) 1,000 mls @ 500 mls/hr IV ASDIRECTED [facility] Last Admin: 09/03/18 13:00 Dose: 500 mls/hr Lactated Ringer's (Ringers, Lactated) 1,000 mls @ 125 mls/hr IV ASDIRECTED [facility] Last Admin: 09/03/18 16:07 Dose: 125 mls/hr Aztreonam 2 gm/ Sodium (Chloride) 100 mls @ 200 mls/hr IV NOW ONE Stop: 09/03/18 15:29 Last Admin: 09/03/18 14:56 Dose: 200 mls/hr Meropenem 500 mg/ Sodium (Chloride) 50 mls @ 100 mls/hr IV ONCALL ONE Stop: 09/03/18 17:29 Last Admin: 09/03/18 16:25 Dose: 100 mls/hr Piperacillin/Tazobactam/ (Dextrose 3.375 gm/ Premix) 50 mls @ 100 mls/hr IV Q6H [facility] Last Admin: 09/03/18 22:15 Dose: Not Given Sodium Chloride (Normal Saline) Confirm Administered Dose 500 mls @ as directed .ROUTE .STK-MED ONE Stop: 09/03/18 18:33 Aztreonam/Dextrose 1 gm/ (Premix) 50 mls @ 100 mls/hr IV Q8HR [facility] Sodium Chloride (Normal Saline) Confirm Administered Dose 50 mls @ as directed .ROUTE .STK-MED ONE Stop: 09/03/18 22:01 Last Admin: 09/03/18 22:21 Dose: Not Given Aztreonam/Dextrose 1 gm/ (Premix) 50 mls @ 100 mls/hr IV Q8H [facility] Last Admin: 09/04/18 07:30 Dose: Not Given Dextrose/Lactated Ringer's (Dextrose 5%-Lactated Ringers) 1,000 mls @ 100 mls/ hr IV ASDIRECTED PRN PRN Reason: Hypotension Dextrose/Lactated Ringer's (Dextrose 5%-Lactated Ringers) 1,000 mls @ 100 mls/ hr IV ASDIRECTED [facility] Last Admin: 09/05/18 02:13 Dose: 100 mls/hr Lactated Ringer's (Ringers, Lactated) 1,000 mls @ 100 mls/hr IV ASDIRECTED [facility] Last Admin: 09/04/18 04:20 Dose: 100 mls/hr Lactated Ringer's (Ringers, Lactated) 500 mls @ 500 mls/hr IV .BOLUS [facility] Last Admin: 09/04/18 01:10 Dose: 500 mls/hr Lactated Ringer's (Ringers, Lactated) 500 mls @ 500 mls/hr IV .BOLUS [facility] Last Admin: 09/04/18 03:13 Dose: 500 mls/hr Propofol (Diprivan 100 Ml) 100 mls @ 1.361 mls/hr IV TITRATE [facility]; Protocol Last Titration: 09/04/18 07:52 Dose: 14 mcg/kg/min, 3.81 mls/hr Propofol (Diprivan 100 Ml) Confirm Administered Dose 100 mls @ as directed .ROUTE .[facility]-MED ONE Stop: 09/04/18 03:45 Last Admin: 09/04/18 03:59 Dose: Not Given Lactated Ringer's (Ringers, Lactated) 500 mls @ 999 mls/hr IV .BOLUS [facility] Last Admin: 09/04/18 06:10 Dose: 999 mls/hr Lactated Ringer's (Ringers, Lactated) 500 mls @ 500 mls/hr IV ASDIRECTED [facility] Last Admin: 09/04/18 21:04 Dose: 500 mls/hr Lactated Ringer's (Ringers, Lactated) Confirm Administered Dose 1,000 mls @ as directed .ROUTE .ST-MED ONE Stop: 09/04/18 13:11 Lactated Ringer's (Ringers, Lactated) Confirm Administered Dose 1,000 mls @ as directed .ROUTE .STK-MED ONE Stop: 09/04/18 13:11 Sodium Chloride (Normal Saline) Confirm Administered Dose 10 mls @ as directed .ROUTE .STK-MED ONE Stop: 09/04/18 13:15 Magnesium Sulfate 2 gm/ Premix 50 mls @ 25 mls/hr IV Q6H [facility] Stop: 09/06/18 11:59 Last Admin: 09/06/18 10:17 Dose: 25 mls/hr Lactated Ringer's (Ringers, Lactated) 500 mls @ 500 mls/hr IV ASDIRECTED [facility] Stop: 09/04/18 17:46 Lactated Ringer's (Ringers, Lactated) 500 mls @ 500 mls/hr IV ONETIME ONE Stop: 09/04/18 19:29 Last Admin: 09/04/18 18:37 Dose: 500 mls/hr Lactated Ringer's (Ringers, Lactated) 500 mls @ 1,000 mls/hr IV ONETIME ONE Stop: 09/04/18 23:30 Last Admin: 09/04/18 23:18 Dose: 1,000 mls/hr Lactated Ringer's (Ringers, Lactated) 500 mls @ 1,000 mls/hr IV ONETIME ONE Stop: 09/05/18 01:44 Last Admin: 09/05/18 01:15 Dose: 1,000 mls/hr Lactated Ringer's (Ringers, Lactated) 1,000 mls @ 150 mls/hr IV ASDIRECTED [facility] Last Admin: 09/05/18 02:13 Dose: 150 mls/hr Lactated Ringer's (Ringers, Lactated) 500 mls @ 1,000 mls/hr IV ONETIME ONE Stop: 09/05/18 03:38 Last Admin: 09/05/18 03:15 Dose: 1,000 mls/hr Multivitamins/Minerals 10 ml/Chromium/Copper/Manganese/Seleni/Zn 1 ml/ Amino Ac/ Electrol/Dextrose/Calcium 2,011 mls @ 82 mls/hr IV .BY DURATION [facility] Stop: 09/05/18 13:25 Last Admin: 09/05/18 13:32 Dose: Not Given Amino Ac/Electrol/Dextrose/Calcium (Clinimix E 15) 2,000 mls @ 82 mls/hr IV .BY DURATION [facility] Stop: 09/05/18 13:25 Vancomycin HCl 1 gm/ Sodium (Chloride) 250 mls @ 167 mls/hr IV Q24H [facility] Last Admin: 09/05/18 12:34 Dose: 167 mls/hr Sodium Chloride (Normal Saline) 1,000 mls @ 50 mls/hr IV ASDIRECTED [facility] Last Admin: 09/05/18 12:51 Dose: 50 mls/hr Sodium Chloride (Normal Saline) 500 mls @ 500 mls/hr IV ASDIRECTED ONE Stop: 09/05/18 16:29 Last Admin: 09/05/18 15:40 Dose: 500 mls/hr Sodium Chloride (Normal Saline) 1,000 mls @ 100 mls/hr IV ASDIRECTED [facility] Last Admin: 09/07/18 07:31 Dose: 100 mls/hr Lidocaine/Epinephrine (Xylocaine 1% With Epinephrine 1:100,000) Confirm Administered Dose 50 ml .ROUTE .STK-MED ONE Stop: 09/07/18 06:48 Lorazepam (Ativan) 0.5 mg IVPUSH Q4H PRN PRN Reason: Nausea/Vomiting Meropenem (Merrem) Confirm Administered Dose 1,000 mg .ROUTE .STK-MED ONE Stop: 09/03/18 17:54 Last Admin: 09/03/18 18:32 Dose: 3,500 mg Meropenem (Merrem) Confirm Administered Dose 1,000 mg .ROUTE .STK-MED ONE Stop: 09/03/18 18:04 Meropenem (Merrem) Confirm Administered Dose 2,000 mg .ROUTE .STK-MED ONE Stop: 09/03/18 18:18 Meropenem (Merrem) Confirm Administered Dose 500 mg .ROUTE .STK-MED ONE Stop: 09/07/18 06:48 Metoprolol Tartrate (Lopressor) 25 mg PO ONETIME ONE Stop: 09/03/18 10:41 Last Admin: 09/03/18 11:00 Dose: 25 mg Neostigmine Methylsulfate (Neostigmine) Confirm Administered Dose 5 mg .ROUTE .STK-MED ONE Stop: 09/03/18 14:41 Neostigmine Methylsulfate (Neostigmine) Confirm Administered Dose 5 mg .ROUTE .STK-MED ONE Stop: 09/04/18 09:47 Ondansetron HCl (Zofran Odt) 4 mg PO Q6H PRN PRN Reason: Nausea able to take PO Ondansetron HCl (Zofran) 4 mg IV Q6H PRN PRN Reason: Nausea/Vomiting Ondansetron HCl (Zofran) Confirm Administered Dose 4 mg .ROUTE .STK-MED ONE Stop: 09/03/18 14:41 Ondansetron HCl (Zofran) Confirm Administered Dose 4 mg .ROUTE .STK-MED ONE Stop: 09/04/18 09:47 Pantoprazole Sodium (Protonix Iv) 40 mg IV Q12H [facility] Last Admin: 09/03/18 16:07 Dose: 40 mg Piperacillin Sod/Tazobactam Sod (Zosyn) 10.125 gm .XX ASDIRECTED [facility] Stop: 09/04/18 15:00 Last Admin: 09/04/18 14:04 Dose: 10.125 gm Propofol (Diprivan 20 Ml) Confirm Administered Dose 200 mg .ROUTE .STK-MED ONE Stop: 09/03/18 14:41 Propofol (Diprivan 20 Ml) Confirm Administered Dose 200 mg .ROUTE .STK-MED ONE Stop: 09/04/18 09:47 Propofol (Diprivan 20 Ml) Confirm Administered Dose 200 mg .ROUTE .STK-MED ONE Stop: 09/06/18 07:01 Rocuronium [place] (Zemuron) Confirm Administered Dose 50 mg .ROUTE .STK-MED ONE Stop: 09/03/18 14:41 Rocuronium [place] (Zemuron) Confirm Administered Dose 50 mg .ROUTE .STK-MED ONE Stop: 09/04/18 09:47 Succinylcholine Chloride (Quelicin) Confirm Administered Dose 200 mg .ROUTE .STK -MED ONE Stop: 09/03/18 14:41 Succinylcholine Chloride (Quelicin) Confirm Administered Dose 200 mg .ROUTE .STK -MED ONE Stop: 09/04/18 09:47 Succinylcholine Chloride (Quelicin) Confirm Administered Dose 200 mg .ROUTE .STK -MED ONE Stop: 09/06/18 07:01 - Exam Quality Assessment: Supplemental Oxygen (Ventilator), Central Line/PICC, Urine Catheter, DVT Prophylaxis General: Sedated Neck: Supple Lungs: Clear to Auscultation, Normal Respiratory Effort Cardiovascular: Regular Rate, Regular Rhythm, No Murmurs GI/Abdominal Exam: Soft, No Organomegaly Extremities: Non-Tender - Problem List Review Problem List Initiated/Reviewed/Updated: Yes - My Orders Last 24 Hours: My Active Orders 09/07/18 10:19 Mechanical Ventilation [RT Ventilator, Adult] [RC] ASDIRECTED - Plan Plan:: ASSESSMENT AND PLAN - Perforated sigmoid colon with sepsis - Initial surgical resection on 09/03 and Second Look laparotomy on 09/04. Sepsis has resolved. Cultures growing Klebsiella , Escherichia coli and anaerobic bacteria. No fevers. No return of bowel function as of yet. White blood cell count remains elevated at 20,000 -Continue Meropenem, aztreonam and add vancomycin until cultures are complete -Continue IV fluids -Pain control with DATA ANALYTICS ANALYST -Follow-up cultures Acute respiratory failure with hypoxia and hypercapnia - likely multifactorial with fatigue, hypoventilation and possible component of fluid. She is now intubated and mechanically ventilated. She is stable with mechanical ventilation. BNP is quite elevated but there is no history of congestive heart failure. Echocardiogram shows low normal left ventricular function, mild LVH. -Continue mechanical ventilation -Sedation is needed to avoid significant agitation -Soft wrist restraints -Optimize volume status -Spontaneous breathing trial in a.m. Acute kidney injury - likely related to sepsis and function has finally started to improve. -Management as above -Repeat labs in the morning Hyperactive delirium - probably combination of infection and anesthesia as well as a medications. She is now lightly sedated with her intubation. -Symptomatically management and treatment of the above conditions Maintenance issues - - DVT prophylaxis - mechanical - GI prophylaxis - PPI - Nutrition - nothing by mouth - Rubin catheter - placed for strict intake and output monitoring and a critical patient Disposition - I would anticipate discharge home after the hospital stay
--- NOTE | 2018-09-07 12:30 | PCM.PN ---
- General Info Date of Service: 09/08/18 Admission Dx/Problem (Free Text): Tina Muniz is a 77 year old female who is currently postoperatively intubated with mechanical ventilation. She is not able to discuss new symptoms or review of systems. Her total intake is 4870 mL and output is 3970 mL. IV intake is 4870 mL. Urine output through Ruibn catheter is 3670 mL. REMY drain 1 output is 40 mL, REMY drain 2 output is 150 mL. Gastric output is 75 mL. She is currently tachycardic. She is sedated. - Patient Data Vitals - Most Recent: Last Vital Signs Temp 36.2 C 09/07/18 07:57 Pulse 109 H 09/07/18 11:39 Resp 17 09/07/18 11:00 BP 130/64 09/07/18 11:39 Pulse Ox 94 L 09/07/18 11:00 Weight - Most Recent: 45.359 kg I&O - Last 24 Hours: Intake & Output 09/06/18 09/07/18 09/07/18 22:59 06:59 14:59 Intake Total 2419 2451 362 Output Total 5458 462 8517 Balance 1219 1691 -948 Lab Results Last 24 Hours: Laboratory Results - last 24 hr 09/06/18 09/06/18 09/07/18 Range/Units 16:59 17:00 04:50 WBC 21.9 H (4.5-11.0) K/uL RBC 2.87 L (3.30-5.50) M/uL Hgb 9.7 L (12.0-15.0) g/dL Hct 28.0 L (36.0-48.0) % MCV 98 (80-98) fL MCH 34 H (27-31) pg MCHC 35 (32-36) % Plt Count 215 (150-400) K/uL Puncture Site Line ABG pH 7.412 (7.350-7.450) ABG pCO2 37.9 (35.0-42.0) mmHg ABG pO2 92.7 (75.0-100.0) mmHg ABG HCO3 23.6 (22.0-26.0) mmol/L ABG Total CO2 21.9 (21.0-25.0) mmol/L ABG O2 Saturation 97.6 (95.0-98.0) % ABG O2 Content 13.5 L (15.0-23.0) %vol ABG Base Excess -0.3 mm/L ABG Hemoglobin 10.0 L (12.0-16.0) g/dL ABG Oxyhemoglobin 95.8 % ABG Carboxyhemoglobin 1.3 (0.0-1.6) % ABG Methemoglobin 0.5 % Woody Test TNP O2 Delivery Device Ventilator Oxygen Flow Rate L Sodium 137 L (140-148) mmol/L Potassium 3.7 (3.6-5.2) mmol/L Chloride 105 (100-108) mmol/L Carbon Dioxide 24 (21-32) mmol/L Anion Gap 11.7 (5.0-14.0) mmol/L BUN 49 H (7-18) mg/dL Creatinine 1.2 H (0.6-1.0) mg/dL Est Cr Clr Drug Dosing 27.67 mL/min Estimated GFR (MDRD) 43 L (>60) Glucose 148 H (74-106) mg/dL Calcium 7.7 L (8.5-10.1) mg/dL Phosphorus 2.5 (2.5-4.9) mg/dL Total Bilirubin (0.2-1.0) mg/dL AST (15-37) U/L ALT (12-78) U/L Alkaline Phosphatase (46-116) U/L NT-Pro-B Natriuret Pep 53140 H (5-450) pg/mL Total Protein (6.4-8.2) g/dL Albumin (3.4-5.0) g/dL Globulin (2.3-3.5) g/dL Albumin/Globulin Ratio (1.2-2.2) 09/07/18 09/07/18 Range/Units 04:50 04:50 WBC (4.5-11.0) K/uL RBC (3.30-5.50) M/uL Hgb (12.0-15.0) g/dL Hct (36.0-48.0) % MCV (80-98) fL MCH (27-31) pg MCHC (32-36) % Plt Count (150-400) K/uL Puncture Site Line ABG pH 7.428 (7.350-7.450) ABG pCO2 38.3 (35.0-42.0) mmHg ABG pO2 103.0 H (75.0-100.0) mmHg ABG HCO3 24.9 (22.0-26.0) mmol/L ABG Total CO2 23.0 (21.0-25.0) mmol/L ABG O2 Saturation 98.2 H (95.0-98.0) % ABG O2 Content 13.5 L (15.0-23.0) %vol ABG Base Excess 1.1 mm/L ABG Hemoglobin 9.8 L (12.0-16.0) g/dL ABG Oxyhemoglobin 96.5 % ABG Carboxyhemoglobin 1.1 (0.0-1.6) % ABG Methemoglobin 0.6 % Woody Test O2 Delivery Device Ventilator Oxygen Flow Rate L Sodium 139 L (140-148) mmol/L Potassium 3.3 L (3.6-5.2) mmol/L Chloride 106 (100-108) mmol/L Carbon Dioxide 25 (21-32) mmol/L Anion Gap 11.3 (5.0-14.0) mmol/L BUN 49 H (7-18) mg/dL Creatinine 1.0 (0.6-1.0) mg/dL Est Cr Clr Drug Dosing 33.20 mL/min Estimated GFR (MDRD) 54 L (>60) Glucose 129 H (74-106) mg/dL Calcium 7.5 L (8.5-10.1) mg/dL Phosphorus 2.3 L (2.5-4.9) mg/dL Total Bilirubin 0.2 (0.2-1.0) mg/dL AST 29 (15-37) U/L ALT 20 (12-78) U/L Alkaline Phosphatase 108 (46-116) U/L NT-Pro-B Natriuret Pep 19684 H (5-450) pg/mL Total Protein 4.7 L (6.4-8.2) g/dL Albumin 1.2 L (3.4-5.0) g/dL Globulin 3.5 (2.3-3.5) g/dL Albumin/Globulin Ratio 0.3 L (1.2-2.2) Joseph Results Last 24 Hours: Microbiology 09/03/18 12:10 Aerobic Blood Culture - Preliminary Blood - Venous NO GROWTH AFTER 4 DAYS Anaerobic Blood Culture - Final Anaerobic Gram Negative Cuco 09/03/18 12:20 Aerobic Blood Culture - Preliminary Blood - Arm, Left NO GROWTH AFTER 4 DAYS Anaerobic Blood Culture - Final Anaerobic Gram Negative Cuco 09/04/18 13:33 Gram Stain - Final Abdominal Fluid - Drainage Wound Culture - Final Klebsiella Pneumonia Ss Pneumo Anaerobic Culture - Final NO GROWTH AFTER 3 DAYS 09/04/18 13:32 Gram Stain - Final Abdomen - Drainage Wound Culture - Final Klebsiella Pneumonia Ss Pneumo Anaerobic Culture - Final NO GROWTH AFTER 3 DAYS 09/03/18 18:31 Anaerobic Culture - Final Peritoneal Fluid Anaerobic Gram Negative Cuco Anaerobic Gram Negative Cocci 09/03/18 18:31 Anaerobic Culture - Final Peritoneal Fluid Anaerobic Gram Negative Cuco Anaerobic Gram Negative Cocci 09/07/18 05:22 Gram Stain - Final Endotrachial Tube Med Orders - Current: Current Medications Ropivacaine 22 ml/Dexamethasone 8 mg/Epinephrine HCl 0.4 mg/ Sodium Chloride 55.6 ml 0 ml NERVRT ASDIRECTED [facility] Last Admin: 09/07/18 11:07 Dose: 80 syringe Furosemide (Lasix) 20 mg IV Q12H [facility] Stop: 09/07/18 20:01 Last Admin: 09/07/18 08:25 Dose: 20 mg Hydromorphone HCl (Dilaudid Custodial Aide 15 Mg In Ns 30 Ml) 0 mg IV ASDIRECTED PRN; Protocol 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 Last Admin: 09/05/18 16:37 Dose: 15 mg Hydroxyzine HCl (Vistaril) 50 mg IM Q4H PRN PRN Reason: Pain Meropenem 500 mg/ Sodium (Chloride) 50 mls @ 100 mls/hr IV Q8H [facility] Last Admin: 09/07/18 05:34 Dose: 100 mls/hr Aztreonam/Dextrose 1 gm/ (Premix) 50 mls @ 100 mls/hr IV Q8H [facility] Last Admin: 09/07/18 08:15 Dose: 100 mls/hr Heparin Sodium (Porcine) 5,000 (units/ Sodium Chloride) 501 mls @ 5 mls/hr IV ASDIRECTED [facility] Last Admin: 09/06/18 08:23 Dose: 5 mls/hr Multivitamins/Minerals 10 ml/Chromium/Copper/Manganese/Seleni/Zn 1 ml/ Amino Ac/ Electrol/Dextrose/Calcium 2,011 mls @ 82 mls/hr IV .BY DURATION [facility] Last Admin: 09/06/18 14:19 Dose: 82 mls/hr Amino Ac/Electrol/Dextrose/Calcium (Clinimix E 09/23) 2,000 mls @ 82 mls/hr IV .BY DURATION [facility] Vancomycin HCl 1 gm/ Sodium (Chloride) 250 mls @ 167 mls/hr IV Q24H [facility] Last Admin: 09/06/18 12:00 Dose: 167 mls/hr Heparin Sodium (Porcine) 5,000 (units/ Sodium Chloride) 501 mls @ 5 mls/hr IV ASDIRECTED [facility] Last Admin: 09/06/18 08:24 Dose: 5 mls/hr Propofol (Diprivan 100 Ml) 100 mls @ 1.361 mls/hr IV TITRATE [facility]; Protocol Last Admin: 09/07/18 10:06 Dose: 35 mcg/kg/min, 9.525 mls/hr Potassium Phosphate 20 mmole/ (Sodium Chloride) 106.6667 mls @ 35 mls/hr IV Q3H [facility] Stop: 09/07/18 17:29 Last Admin: 09/07/18 11:57 Dose: 35 mls/hr Albumin Human (Albumin 25%) 25 gm in 100 mls @ 25 mls/hr IV DAILY [facility] Stop: 09/09/18 12:59 Last Admin: 09/07/18 11:03 Dose: 25 mls/hr Albumin Human (Albumin 25%) 25 gm in 100 mls @ 25 mls/hr IV Q24H [facility] Stop: 09/09/18 17:59 Sodium Chloride (Normal Saline) 1,000 mls @ 0 mls/hr IV ASDIRECTED [facility] Lorazepam (Ativan) 0.5 mg IVPUSH Q3H PRN PRN Reason: AGITATION Last Admin: 09/05/18 03:50 Dose: 0.25 mg Metoprolol Tartrate (Lopressor) 5 mg IVPUSH Q6H [facility] Last Admin: 09/07/18 11:39 Dose: 5 mg Naloxone HCl (Narcan) 0.1 mg IV ASDIRECTED PRN PRN Reason: decreased respiratory rate Pantoprazole Sodium (Protonix Iv) 40 mg IV Q24H [facility] Last Admin: 09/06/18 21:36 Dose: 40 mg Discontinued Medications Acetaminophen (Tylenol) 650 mg PO Q4H PRN PRN Reason: Pain (Mild 1-3)/fever Acetaminophen (Tylenol) 650 mg RECTAL Q4H PRN PRN Reason: Mild pain/fever Albuterol (Proventil Neb Soln) 2.5 mg NEB Q4H PRN PRN Reason: Shortness Of Breath/wheezing Albuterol/Ipratropium (Duoneb 3.0-0.5 Mg/3 Ml) 3 ml INH PREPRO ONE Stop: 09/03/18 17:01 Last Admin: 09/03/18 16:25 Dose: 3 ml Aztreonam (Azactam) Confirm Administered Dose 1 gm .ROUTE .STK-MED ONE Stop: 09/03/18 21:44 Last Admin: 09/03/18 22:15 Dose: Not Given Benazepril HCl (Lotensin) 40 mg PO ONETIME ONE Stop: 09/03/18 10:41 Last Admin: 09/03/18 11:00 Dose: 40 mg Bupivacaine HCl (Marcaine 0.5%) Confirm Administered Dose 50 ml .ROUTE .STK-MED ONE Stop: 09/07/18 06:48 Last Admin: 09/07/18 10:53 Dose: 18 ml Ropivacaine 22 ml/Dexamethasone 8 mg/Epinephrine HCl 0.4 mg/ Sodium Chloride 55.6 ml 0 ml NERVRT ASDIRECTED [facility] Ropivacaine 22 ml/Dexamethasone 8 mg/Epinephrine HCl 0.4 mg/ Sodium Chloride 55.6 ml 0 ml NERVRT ASDIRECTED [facility] Last Admin: 09/04/18 14:03 Dose: 80 syringe Dexamethasone (Dexamethasone) Confirm Administered Dose 4 mg .ROUTE .STK-MED ONE Stop: 09/03/18 14:41 Dexamethasone (Dexamethasone) Confirm Administered Dose 4 mg .ROUTE .STK-MED ONE Stop: 09/04/18 09:47 Fentanyl (Sublimaze) 25 mcg IVPUSH ONETIME ONE Stop: 09/03/18 13:57 Last Admin: 09/03/18 14:16 Dose: 25 mcg Fentanyl (Sublimaze) 25 mcg IVPUSH Q2H PRN PRN Reason: Pain (severe 7-10) Fentanyl (Sublimaze) Confirm Administered Dose 250 mcg .ROUTE .STK-MED ONE Stop: 09/03/18 14:41 Fentanyl (Sublimaze) Confirm Administered Dose 250 mcg .ROUTE .STK-MED ONE Stop: 09/04/18 09:46 Fentanyl (Sublimaze) Confirm Administered Dose 250 mcg .ROUTE .STK-MED ONE Stop: 09/04/18 13:57 Furosemide (Lasix) 20 mg IVPUSH ONETIME ONE Stop: 09/04/18 15:10 Last Admin: 09/04/18 15:18 Dose: 20 mg Furosemide (Lasix) 40 mg IV ONETIME ONE Stop: 09/06/18 08:16 Last Admin: 09/06/18 08:26 Dose: 40 mg Glycopyrrolate (Robinul) Confirm Administered Dose 1 mg .ROUTE .STK-MED ONE Stop: 09/03/18 14:41 Glycopyrrolate (Robinul) Confirm Administered Dose 1 mg .ROUTE .STK-MED ONE Stop: 09/04/18 09:47 Heparin Sodium (Porcine) (Heparin Sodium) Confirm Administered Dose 5,000 units .ROUTE .STK-MED ONE Stop: 09/03/18 18:32 Heparin Sodium (Porcine) (Heparin Lock Flush 100 Units/Ml) Confirm Administered Dose 500 units .ROUTE .STK-MED ONE Stop: 09/04/18 13:14 Hydromorphone HCl (Dilaudid) 0.5 mg IVPUSH ONETIME ONE Stop: 09/03/18 10:48 Last Admin: 09/03/18 11:00 Dose: 0.5 mg Hydromorphone HCl (Dilaudid) 0.5 mg IVPUSH ONETIME ONE Stop: 09/03/18 11:22 Last Admin: 09/03/18 11:25 Dose: 0.5 mg Hydromorphone HCl (Dilaudid) 0.5 mg IVPUSH ONETIME ONE Stop: 09/03/18 12:10 Last Admin: 09/03/18 12:12 Dose: 0.5 mg Hydromorphone HCl (Dilaudid) 0.5 mg IVPUSH ONETIME ONE Stop: 09/03/18 12:40 Last Admin: 09/03/18 12:44 Dose: 0.5 mg Hydromorphone HCl (Dilaudid) 1 mg IVPUSH ONETIME ONE Stop: 09/03/18 12:57 Last Admin: 09/03/18 13:00 Dose: 1 mg Sodium Chloride (Normal Saline) 1,000 mls @ 1,000 mls/hr IV .BOLUS ONE Stop: 09/03/18 12:17 Last Admin: 09/03/18 11:25 Dose: 1,000 mls/hr Piperacillin/Tazobactam/ (Dextrose 4.5 gm/ Premix) 100 mls @ 200 mls/hr IV ONETIME ONE Stop: 09/03/18 13:29 Last Admin: 09/03/18 13:04 Dose: 200 mls/hr Sodium Chloride (Normal Saline) 1,000 mls @ 500 mls/hr IV ASDIRECTED [facility] Last Admin: 09/03/18 13:00 Dose: 500 mls/hr Lactated Ringer's (Ringers, Lactated) 1,000 mls @ 125 mls/hr IV ASDIRECTED [facility] Last Admin: 09/03/18 16:07 Dose: 125 mls/hr Aztreonam 2 gm/ Sodium (Chloride) 100 mls @ 200 mls/hr IV NOW ONE Stop: 09/03/18 15:29 Last Admin: 09/03/18 14:56 Dose: 200 mls/hr Meropenem 500 mg/ Sodium (Chloride) 50 mls @ 100 mls/hr IV ONCALL ONE Stop: 09/03/18 17:29 Last Admin: 09/03/18 16:25 Dose: 100 mls/hr Piperacillin/Tazobactam/ (Dextrose 3.375 gm/ Premix) 50 mls @ 100 mls/hr IV Q6H [facility] Last Admin: 09/03/18 22:15 Dose: Not Given Sodium Chloride (Normal Saline) Confirm Administered Dose 500 mls @ as directed .ROUTE .STK-MED ONE Stop: 09/03/18 18:33 Aztreonam/Dextrose 1 gm/ (Premix) 50 mls @ 100 mls/hr IV Q8HR [facility] Sodium Chloride (Normal Saline) Confirm Administered Dose 50 mls @ as directed .ROUTE .STK-MED ONE Stop: 09/03/18 22:01 Last Admin: 09/03/18 22:21 Dose: Not Given Aztreonam/Dextrose 1 gm/ (Premix) 50 mls @ 100 mls/hr IV Q8H [facility] Last Admin: 09/04/18 07:30 Dose: Not Given Dextrose/Lactated Ringer's (Dextrose 5%-Lactated Ringers) 1,000 mls @ 100 mls/ hr IV ASDIRECTED PRN PRN Reason: Hypotension Dextrose/Lactated Ringer's (Dextrose 5%-Lactated Ringers) 1,000 mls @ 100 mls/ hr IV ASDIRECTED [facility] Last Admin: 09/05/18 02:13 Dose: 100 mls/hr Lactated Ringer's (Ringers, Lactated) 1,000 mls @ 100 mls/hr IV ASDIRECTED [facility] Last Admin: 09/04/18 04:20 Dose: 100 mls/hr Lactated Ringer's (Ringers, Lactated) 500 mls @ 500 mls/hr IV .BOLUS [facility] Last Admin: 09/04/18 01:10 Dose: 500 mls/hr Lactated Ringer's (Ringers, Lactated) 500 mls @ 500 mls/hr IV .BOLUS [facility] Last Admin: 09/04/18 03:13 Dose: 500 mls/hr Propofol (Diprivan 100 Ml) 100 mls @ 1.361 mls/hr IV TITRATE [facility]; Protocol Last Titration: 09/04/18 07:52 Dose: 14 mcg/kg/min, 3.81 mls/hr Propofol (Diprivan 100 Ml) Confirm Administered Dose 100 mls @ as directed .ROUTE .ST-MED ONE Stop: 09/04/18 03:45 Last Admin: 09/04/18 03:59 Dose: Not Given Lactated Ringer's (Ringers, Lactated) 500 mls @ 999 mls/hr IV .BOLUS [facility] Last Admin: 09/04/18 06:10 Dose: 999 mls/hr Lactated Ringer's (Ringers, Lactated) 500 mls @ 500 mls/hr IV ASDIRECTED [facility] Last Admin: 09/04/18 21:04 Dose: 500 mls/hr Lactated Ringer's (Ringers, Lactated) Confirm Administered Dose 1,000 mls @ as directed .ROUTE .STK-MED ONE Stop: 09/04/18 13:11 Lactated Ringer's (Ringers, Lactated) Confirm Administered Dose 1,000 mls @ as directed .ROUTE .STK-MED ONE Stop: 09/04/18 13:11 Sodium Chloride (Normal Saline) Confirm Administered Dose 10 mls @ as directed .ROUTE .STK-MED ONE Stop: 09/04/18 13:15 Magnesium Sulfate 2 gm/ Premix 50 mls @ 25 mls/hr IV Q6H [facility] Stop: 09/06/18 11:59 Last Admin: 09/06/18 10:17 Dose: 25 mls/hr Lactated Ringer's (Ringers, Lactated) 500 mls @ 500 mls/hr IV ASDIRECTED [facility] Stop: 09/04/18 17:46 Lactated Ringer's (Ringers, Lactated) 500 mls @ 500 mls/hr IV ONETIME ONE Stop: 09/04/18 19:29 Last Admin: 09/04/18 18:37 Dose: 500 mls/hr Lactated Ringer's (Ringers, Lactated) 500 mls @ 1,000 mls/hr IV ONETIME ONE Stop: 09/04/18 23:30 Last Admin: 09/04/18 23:18 Dose: 1,000 mls/hr Lactated Ringer's (Ringers, Lactated) 500 mls @ 1,000 mls/hr IV ONETIME ONE Stop: 09/05/18 01:44 Last Admin: 09/05/18 01:15 Dose: 1,000 mls/hr Lactated Ringer's (Ringers, Lactated) 1,000 mls @ 150 mls/hr IV ASDIRECTED [facility] Last Admin: 09/05/18 02:13 Dose: 150 mls/hr Lactated Ringer's (Ringers, Lactated) 500 mls @ 1,000 mls/hr IV ONETIME ONE Stop: 09/05/18 03:38 Last Admin: 09/05/18 03:15 Dose: 1,000 mls/hr Multivitamins/Minerals 10 ml/Chromium/Copper/Manganese/Seleni/Zn 1 ml/ Amino Ac/ Electrol/Dextrose/Calcium 2,011 mls @ 82 mls/hr IV .BY DURATION [facility] Stop: 09/05/18 13:25 Last Admin: 09/05/18 13:32 Dose: Not Given Amino Ac/Electrol/Dextrose/Calcium (Clinimix E 15) 2,000 mls @ 82 mls/hr IV .BY DURATION [facility] Stop: 09/05/18 13:25 Vancomycin HCl 1 gm/ Sodium (Chloride) 250 mls @ 167 mls/hr IV Q24H [facility] Last Admin: 09/05/18 12:34 Dose: 167 mls/hr Sodium Chloride (Normal Saline) 1,000 mls @ 50 mls/hr IV ASDIRECTED [facility] Last Admin: 09/05/18 12:51 Dose: 50 mls/hr Sodium Chloride (Normal Saline) 500 mls @ 500 mls/hr IV ASDIRECTED ONE Stop: 09/05/18 16:29 Last Admin: 09/05/18 15:40 Dose: 500 mls/hr Sodium Chloride (Normal Saline) 1,000 mls @ 100 mls/hr IV ASDIRECTED [facility] Last Admin: 09/07/18 07:31 Dose: 100 mls/hr Lidocaine/Epinephrine (Xylocaine 1% With Epinephrine 1:100,000) Confirm Administered Dose 50 ml .ROUTE .STK-MED ONE Stop: 09/07/18 06:48 Last Admin: 09/07/18 10:54 Dose: 18 ml Lorazepam (Ativan) 0.5 mg IVPUSH Q4H PRN PRN Reason: Nausea/Vomiting Meropenem (Merrem) Confirm Administered Dose 1,000 mg .ROUTE .STK-MED ONE Stop: 09/03/18 17:54 Last Admin: 09/03/18 18:32 Dose: 3,500 mg Meropenem (Merrem) Confirm Administered Dose 1,000 mg .ROUTE .STK-MED ONE Stop: 09/03/18 18:04 Meropenem (Merrem) Confirm Administered Dose 2,000 mg .ROUTE .STK-MED ONE Stop: 09/03/18 18:18 Meropenem (Merrem) Confirm Administered Dose 500 mg .ROUTE .STK-MED ONE Stop: 09/07/18 06:48 Last Admin: 09/07/18 10:53 Dose: 500 mg Metoprolol Tartrate (Lopressor) 25 mg PO ONETIME ONE Stop: 09/03/18 10:41 Last Admin: 09/03/18 11:00 Dose: 25 mg Neostigmine Methylsulfate (Neostigmine) Confirm Administered Dose 5 mg .ROUTE .STK-MED ONE Stop: 09/03/18 14:41 Neostigmine Methylsulfate (Neostigmine) Confirm Administered Dose 5 mg .ROUTE .STK-MED ONE Stop: 09/04/18 09:47 Ondansetron HCl (Zofran Odt) 4 mg PO Q6H PRN PRN Reason: Nausea able to take PO Ondansetron HCl (Zofran) 4 mg IV Q6H PRN PRN Reason: Nausea/Vomiting Ondansetron HCl (Zofran) Confirm Administered Dose 4 mg .ROUTE .STK-MED ONE Stop: 09/03/18 14:41 Ondansetron HCl (Zofran) Confirm Administered Dose 4 mg .ROUTE .STK-MED ONE Stop: 09/04/18 09:47 Pantoprazole Sodium (Protonix Iv) 40 mg IV Q12H [facility] Last Admin: 09/03/18 16:07 Dose: 40 mg Piperacillin Sod/Tazobactam Sod (Zosyn) 10.125 gm .XX ASDIRECTED [facility] Stop: 09/04/18 15:00 Last Admin: 09/04/18 14:04 Dose: 10.125 gm Propofol (Diprivan 20 Ml) Confirm Administered Dose 200 mg .ROUTE .STK-MED ONE Stop: 09/03/18 14:41 Propofol (Diprivan 20 Ml) Confirm Administered Dose 200 mg .ROUTE .STK-MED ONE Stop: 09/04/18 09:47 Propofol (Diprivan 20 Ml) Confirm Administered Dose 200 mg .ROUTE .STK-MED ONE Stop: 09/06/18 07:01 Rocuronium [place] (Zemuron) Confirm Administered Dose 50 mg .ROUTE .STK-MED ONE Stop: 09/03/18 14:41 Rocuronium [place] (Zemuron) Confirm Administered Dose 50 mg .ROUTE .STK-MED ONE Stop: 09/04/18 09:47 Succinylcholine Chloride (Quelicin) Confirm Administered Dose 200 mg .ROUTE .STK -MED ONE Stop: 09/03/18 14:41 Succinylcholine Chloride (Quelicin) Confirm Administered Dose 200 mg .ROUTE .STK -MED ONE Stop: 09/04/18 09:47 Succinylcholine Chloride (Quelicin) Confirm Administered Dose 200 mg .ROUTE .STK -MED ONE Stop: 09/06/18 07:01 - Exam Quality Assessment: Central Line/PICC, Urine Catheter General: Sedated, Lethargic Neck: Supple Lungs: Clear to Auscultation, Normal Respiratory Effort Cardiovascular: Regular Rate, Regular Rhythm Wound/Incisions: Dressing Dry and Intact, Other (REMY drains show serous fluid) - Problem List Review Problem List Initiated/Reviewed/Updated: Yes - Assessment Assessment:: 1. 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 Exploratory laparotomy with a. sigmoid colon resection with end colotomy plus Rosa procedure b. drainage of pericolonic abscess plus diffuse peritoneal cavity washout c. small bowel resection Date of procedure: 09/03/2018, Surgeon Christiano Estrada MD 3.Indication of central venous access 4. Diffuse feculent perforation with second look laparotomy showing: a. pelvic right subphrenic with fluid collection b. segment small bowel with increasing necrosis adjacent mesentery 5. Insertion Left subclavian triple-lumen catheter 6. Second look laparotomy with: a. drainage peritoneal inflammatory fluid collection b. drainage right subphrenic inflammatory fluid collection d. plus small bowel resection 7. Date of procedure: 09/04/2018, Surgeon, Christiano Estrada MD 8. Hypoalbuminemia 9. Ventilator dependence - Plan Plan:: 1. Initiate Albumin 50 g daily for 3 days. Recheck. 2. Continue current rate and content of TPN. 3. Initiate Lasix 20 mg IV push every [address] Vazquez to manage ventilation 5. Administer 60 millimoles of potassium phosphate through proximal central line. 6. Restraints PRN 7. Labs: CBC, CMP, Phosphate, ABG in the AM 8. Will recheck as needed or in the AM 9. Assess for possible weaning trial of ventilator
[2018-09-07] MEDS: 1: AA 5%/Calcium/D15W/Lytes 2,000 ML with MVI, Adult with Vitamin K 10 ML, Chromium/Copp IV SCH ×3 (15:09)
[2018-09-07] MEDS: Sodium Chloride 0.9% 1,000 ML IV ONE ×2 (16:45→17:26)
[2018-09-07] MEDS: Pantoprazole 40 MG Vial IV SCH (21:47)
[2018-09-08] MEDS: Metoprolol Tartrate 5 MG/5 ML SDV IVPUSH SCH ×3 (03:02→21:55)
--- NOTE | 2018-09-08 04:29 | CRLCR ---
Indication: Respiratory Technique: Chest 1 view Comparison: September 07, 2018 Findings/Impression: A left subclavian central venous catheter extends along the course of the left internal jugular vein and will need to be adjusted. Endotracheal tube tip terminates 3.8 cm above the level of the pham. A gastric drainage tube tip courses below the level of the left hemidiaphragm. The cardiac size is stable. There are small bilateral pleural effusions, unchanged. Increased scattered opacities in the right upper lobe, left perihilar region, and retrocardiac region may represent atelectasis or infection. There is no pneumothorax. These findings were discussed with Eliu Cheng RN, at 4:28 a.m. on September 08, 2018. Dictated by Suzanne Melendez MD @ Sep 08 2018 4:20AM (Electronically Signed)
[2018-09-08] MEDS: Meropenem 500 MG in Sodium Chloride 0.9% 50 ML IV SCH ×3 (05:06→21:33)
--- NOTE | 2018-09-08 08:08 | PN ---
DATE OF SERVICE: 09/05/2018 The patient has been afebrile, and vital signs generally have been stable. Her lactate has normalized overnight down to 2.0, and she is less restless than previously. We had to give her quite a bit of extra fluid overnight. Her hemoglobin this morning is 7.8, and we will give her a unit of packed RBCs, which closely in the blood streaming quite a bit better than the crystalloids. Otherwise, we will begin some TPN today and plan delayed primary closure. The NG tube will stay in for today. Christiano Estrada MD /[id number]
[2018-09-08] MEDS: Furosemide 20 MG/2 ML VIAL IVPUSH SCH ×2 (08:35→19:50)
--- NOTE | 2018-09-08 10:57 | PCM.PN ---
- General Info Date of Service: 09/08/18 Subjective Update: Ms. Muniz did undergo spontaneous breathing trial earlier this morning and failed. CT scan abdomen and pelvis has been obtained showing no obvious intra- abdominal abscess, CT scan did document bilateral pulmonary infiltrates consistent with pneumonia. Patient is currently unable to provide information concerning symptoms or review of systems because of sedation and intubation. - Patient Data Vitals - Most Recent: Last Vital Signs Temp 96.4 F 09/08/18 08:00 Pulse 64 09/08/18 10:51 Resp 17 09/08/18 10:51 BP 67/26 L 09/08/18 10:51 Pulse Ox 93 L 09/08/18 10:51 Weight - Most Recent: 100 lb I&O - Last 24 Hours: Intake & Output 09/07/18 09/08/18 09/08/18 22:59 06:59 14:59 Intake Total 2761 1706 270 Output Total 1475 1175 1020 Balance 1286 531 -750 Lab Results Last 24 Hours: Laboratory Results - last 24 hr 09/07/18 09/08/18 09/08/18 Range/Units 12:10 03:40 03:40 WBC 23.5 H (4.5-11.0) K/uL RBC 2.71 L (3.30-5.50) M/uL Hgb 9.0 L (12.0-15.0) g/dL Hct 26.5 L (36.0-48.0) % MCV 98 (80-98) fL MCH 33 H (27-31) pg MCHC 34 (32-36) % Plt Count 229 (150-400) K/uL Puncture Site A-line ABG pH 7.415 (7.350-7.450) ABG pCO2 42.3 H (35.0-42.0) mmHg ABG pO2 125.0 H (75.0-100.0) mmHg ABG HCO3 26.6 H (22.0-26.0) mmol/L ABG Total CO2 24.8 (21.0-25.0) mmol/L ABG O2 Saturation 98.6 H (95.0-98.0) % ABG O2 Content 13.1 L (15.0-23.0) %vol ABG Base Excess 2.3 mm/L ABG Hemoglobin 9.5 L (12.0-16.0) g/dL ABG Oxyhemoglobin 96.6 % ABG Carboxyhemoglobin 1.7 H (0.0-1.6) % ABG Methemoglobin 0.3 % Woody Test A-line O2 Delivery Device Ventilator Oxygen Flow Rate L Sodium (140-148) mmol/L Potassium (3.6-5.2) mmol/L Chloride (100-108) mmol/L Carbon Dioxide (21-32) mmol/L Anion Gap (5.0-14.0) mmol/L BUN (7-18) mg/dL Creatinine (0.6-1.0) mg/dL Est Cr Clr Drug Dosing mL/min Estimated GFR (MDRD) (>60) Glucose (74-106) mg/dL Calcium (8.5-10.1) mg/dL Phosphorus (2.5-4.9) mg/dL Total Bilirubin (0.2-1.0) mg/dL AST (15-37) U/L ALT (12-78) U/L Alkaline Phosphatase (46-116) U/L NT-Pro-B Natriuret Pep (5-450) pg/mL Total Protein (6.4-8.2) g/dL Albumin (3.4-5.0) g/dL Globulin (2.3-3.5) g/dL Albumin/Globulin Ratio (1.2-2.2) Vancomycin Trough 12.8 (10.0-20.0) ug/mL 09/08/18 Range/Units 03:40 WBC (4.5-11.0) K/uL RBC (3.30-5.50) M/uL Hgb (12.0-15.0) g/dL Hct (36.0-48.0) % MCV (80-98) fL MCH (27-31) pg MCHC (32-36) % Plt Count (150-400) K/uL Puncture Site ABG pH (7.350-7.450) ABG pCO2 (35.0-42.0) mmHg ABG pO2 (75.0-100.0) mmHg ABG HCO3 (22.0-26.0) mmol/L ABG Total CO2 (21.0-25.0) mmol/L ABG O2 Saturation (95.0-98.0) % ABG O2 Content (15.0-23.0) %vol ABG Base Excess mm/L ABG Hemoglobin (12.0-16.0) g/dL ABG Oxyhemoglobin % ABG Carboxyhemoglobin (0.0-1.6) % ABG Methemoglobin % Woody Test O2 Delivery Device Oxygen Flow Rate L Sodium 143 (140-148) mmol/L Potassium 4.0 (3.6-5.2) mmol/L Chloride 106 (100-108) mmol/L Carbon Dioxide 27 (21-32) mmol/L Anion Gap 9.8 (5.0-14.0) mmol/L BUN 51 H (7-18) mg/dL Creatinine 0.9 (0.6-1.0) mg/dL Est Cr Clr Drug Dosing 36.89 mL/min Estimated GFR (MDRD) > 60 (>60) Glucose 163 H (74-106) mg/dL Calcium 7.6 L (8.5-10.1) mg/dL Phosphorus 5.0 H (2.5-4.9) mg/dL Total Bilirubin 0.4 D (0.2-1.0) mg/dL AST 20 (15-37) U/L ALT 20 (12-78) U/L Alkaline Phosphatase 130 H (46-116) U/L NT-Pro-B Natriuret Pep 87810 H (5-450) pg/mL Total Protein 5.5 L (6.4-8.2) g/dL Albumin 2.1 L (3.4-5.0) g/dL Globulin 3.4 (2.3-3.5) g/dL Albumin/Globulin Ratio 0.6 L (1.2-2.2) Vancomycin Trough (10.0-20.0) ug/mL Joseph Results Last 24 Hours: Microbiology 09/07/18 05:22 Gram Stain - Final Endotrachial Tube Respiratory Culture - Preliminary 09/03/18 12:10 Aerobic Blood Culture - Preliminary Blood - Venous NO GROWTH AFTER 4 DAYS Anaerobic Blood Culture - Final Anaerobic Gram Negative Cuco 09/03/18 12:20 Aerobic Blood Culture - Preliminary Blood - Arm, Left NO GROWTH AFTER 4 DAYS Anaerobic Blood Culture - Final Anaerobic Gram Negative Cuco 09/04/18 13:33 Gram Stain - Final Abdominal Fluid - Drainage Wound Culture - Final Klebsiella Pneumonia Ss Pneumo Anaerobic Culture - Final NO GROWTH AFTER 3 DAYS 09/04/18 13:32 Gram Stain - Final Abdomen - Drainage Wound Culture - Final Klebsiella Pneumonia Ss Pneumo Anaerobic Culture - Final NO GROWTH AFTER 3 DAYS 09/03/18 18:31 Anaerobic Culture - Final Peritoneal Fluid Anaerobic Gram Negative Cuco Anaerobic Gram Negative Cocci 09/03/18 18:31 Anaerobic Culture - Final Peritoneal Fluid Anaerobic Gram Negative Cuco Anaerobic Gram Negative Cocci Med Orders - Current: Current Medications Furosemide (Lasix) 20 mg IVPUSH Q12H [facility] Stop: 09/08/18 19:01 Last Admin: 09/08/18 08:35 Dose: 20 mg Hydralazine HCl (Apresoline) 5 mg IVPUSH Q4H PRN PRN Reason: Hypertension Hydromorphone HCl (Dilaudid Blockman 15 Mg In Ns 30 Ml) 0 mg IV ASDIRECTED PRN; Protocol PRN 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: INVESTOR 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 Last Admin: 09/05/18 16:37 Dose: 15 mg Hydroxyzine HCl (Vistaril) 50 mg IM Q4H PRN PRN Reason: Pain Meropenem 500 mg/ Sodium (Chloride) 50 mls @ 100 mls/hr IV Q8H [facility] Last Admin: 09/08/18 05:06 Dose: 100 mls/hr Heparin Sodium (Porcine) 5,000 (units/ Sodium Chloride) 501 mls @ 5 mls/hr IV ASDIRECTED [facility] Last Admin: 09/06/18 08:23 Dose: 5 mls/hr Multivitamins/Minerals 10 ml/Chromium/Copper/Manganese/Seleni/Zn 1 ml/ Amino Ac/ Electrol/Dextrose/Calcium 2,011 mls @ 82 mls/hr IV .BY DURATION [facility] Stop: 09/08/18 13:20 Last Admin: 09/07/18 15:09 Dose: 82 mls/hr Amino Ac/Electrol/Dextrose/Calcium (Clinimix E 5/15) 2,000 mls @ 82 mls/hr IV .BY DURATION [facility] Stop: 09/08/18 13:20 Heparin Sodium (Porcine) 5,000 (units/ Sodium Chloride) 501 mls @ 5 mls/hr IV ASDIRECTED [facility] Last Admin: 09/06/18 08:24 Dose: 5 mls/hr Propofol (Diprivan 100 Ml) 100 mls @ 1.361 mls/hr IV TITRATE [facility]; Protocol Last Admin: 09/08/18 07:47 Dose: 35 mcg/kg/min, 9.525 mls/hr Albumin Human (Albumin 25%) 25 gm in 100 mls @ 25 mls/hr IV DAILY [facility] Stop: 09/09/18 12:59 Last Admin: 09/08/18 09:31 Dose: 25 mls/hr Albumin Human (Albumin 25%) 25 gm in 100 mls @ 25 mls/hr IV Q24H [facility] Stop: 09/09/18 17:59 Last Admin: 09/07/18 14:30 Dose: 25 mls/hr Sodium Chloride (Normal Saline) 1,000 mls @ 0 mls/hr IV ASDIRECTED [facility] Aztreonam 1 gm/ Sodium (Chloride) 50 mls @ 100 mls/hr IV Q8H [facility] Last Admin: 09/08/18 09:41 Dose: 100 mls/hr Vancomycin HCl 1 gm/ Sodium (Chloride) 250 mls @ 167 mls/hr IV Q18H [facility] Last Admin: 09/08/18 06:03 Dose: 167 mls/hr Potassium Acetate 40 meq/ (Sodium Chloride) 120 mls @ 30 mls/hr IV ONETIME ONE Stop: 09/08/18 13:59 Last Admin: 09/08/18 09:44 Dose: 30 mls/hr Multivitamins/Minerals 10 ml/Chromium/Copper/Manganese/Seleni/Zn 1 ml/ Amino Ac/ Electrol/Dextrose/Calcium 1,011 mls @ 62 mls/hr IV .BY D[facility]ATION [facility] Amino Ac/Electrol/Dextrose/Calcium (Clinimix E 20) 1,000 mls @ 62 mls/hr IV .BY DURATION [facility] Lorazepam (Ativan) 0.5 mg IVPUSH Q3H PRN PRN Reason: AGITATION Last Admin: 09/05/18 03:50 Dose: 0.25 mg Naloxone HCl (Narcan) 0.1 mg IV ASDIRECTED PRN PRN Reason: decreased respiratory rate Pantoprazole Sodium (Protonix Iv) 40 mg IV Q24H [facility] Last Admin: 09/07/18 21:47 Dose: 40 mg Discontinued Medications Acetaminophen (Tylenol) 650 mg PO Q4H PRN PRN Reason: Pain (Mild 1-3)/fever Acetaminophen (Tylenol) 650 mg RECTAL Q4H PRN PRN Reason: Mild pain/fever Albuterol (Proventil Neb Soln) 2.5 mg NEB Q4H PRN PRN Reason: Shortness Of Breath/wheezing Albuterol/Ipratropium (Duoneb 3.0-0.5 Mg/3 Ml) 3 ml INH PREPRO ONE Stop: 09/03/18 17:01 Last Admin: 09/03/18 16:25 Dose: 3 ml Aztreonam (Azactam) Confirm Administered Dose 1 gm .ROUTE .STK-MED ONE Stop: 09/03/18 21:44 Last Admin: 09/03/18 22:15 Dose: Not Given Benazepril HCl (Lotensin) 40 mg PO ONETIME ONE Stop: 09/03/18 10:41 Last Admin: 09/03/18 11:00 Dose: 40 mg Bupivacaine HCl (Marcaine 0.5%) Confirm Administered Dose 50 ml .ROUTE .STK-MED ONE Stop: 09/07/18 06:48 Last Admin: 09/07/18 10:53 Dose: 18 ml Ropivacaine 22 ml/Dexamethasone 8 mg/Epinephrine HCl 0.4 mg/ Sodium Chloride 55.6 ml 0 ml NERVRT ASDIRECTED [facility] Ropivacaine 22 ml/Dexamethasone 8 mg/Epinephrine HCl 0.4 mg/ Sodium Chloride 55.6 ml 0 ml NERVRT ASDIRECTED [facility] Last Admin: 09/04/18 14:03 Dose: 80 syringe Ropivacaine 22 ml/Dexamethasone 8 mg/Epinephrine HCl 0.4 mg/ Sodium Chloride 55.6 ml 0 ml NERVRT ASDIRECTED [facility] Last Admin: 09/07/18 11:07 Dose: 80 syringe Dexamethasone (Dexamethasone) Confirm Administered Dose 4 mg .ROUTE .STK-MED ONE Stop: 09/03/18 14:41 Dexamethasone (Dexamethasone) Confirm Administered Dose 4 mg .ROUTE .STK-MED ONE Stop: 09/04/18 09:47 Fentanyl (Sublimaze) 25 mcg IVPUSH ONETIME ONE Stop: 09/03/18 13:57 Last Admin: 09/03/18 14:16 Dose: 25 mcg Fentanyl (Sublimaze) 25 mcg IVPUSH Q2H PRN PRN Reason: Pain (severe 7-10) Fentanyl (Sublimaze) Confirm Administered Dose 250 mcg .ROUTE .STK-MED ONE Stop: 09/03/18 14:41 Fentanyl (Sublimaze) Confirm Administered Dose 250 mcg .ROUTE .STK-MED ONE Stop: 09/04/18 09:46 Fentanyl (Sublimaze) Confirm Administered Dose 250 mcg .ROUTE .STK-MED ONE Stop: 09/04/18 13:57 Furosemide (Lasix) 20 mg IVPUSH ONETIME ONE Stop: 09/04/18 15:10 Last Admin: 09/04/18 15:18 Dose: 20 mg Furosemide (Lasix) 40 mg IV ONETIME ONE Stop: 09/06/18 08:16 Last Admin: 09/06/18 08:26 Dose: 40 mg Furosemide (Lasix) 20 mg IV Q12H [facility] Stop: 09/07/18 20:01 Last Admin: 09/07/18 20:10 Dose: 20 mg Glycopyrrolate (Robinul) Confirm Administered Dose 1 mg .ROUTE .STK-MED ONE Stop: 09/03/18 14:41 Glycopyrrolate (Robinul) Confirm Administered Dose 1 mg .ROUTE .STK-MED ONE Stop: 09/04/18 09:47 Heparin Sodium (Porcine) (Heparin Sodium) Confirm Administered Dose 5,000 units .ROUTE .STK-MED ONE Stop: 09/03/18 18:32 Heparin Sodium (Porcine) (Heparin Lock Flush 100 Units/Ml) Confirm Administered Dose 500 units .ROUTE .STK-MED ONE Stop: 09/04/18 13:14 Hydromorphone HCl (Dilaudid) 0.5 mg IVPUSH ONETIME ONE Stop: 09/03/18 10:48 Last Admin: 09/03/18 11:00 Dose: 0.5 mg Hydromorphone HCl (Dilaudid) 0.5 mg IVPUSH ONETIME ONE Stop: 09/03/18 11:22 Last Admin: 09/03/18 11:25 Dose: 0.5 mg Hydromorphone HCl (Dilaudid) 0.5 mg IVPUSH ONETIME ONE Stop: 09/03/18 12:10 Last Admin: 09/03/18 12:12 Dose: 0.5 mg Hydromorphone HCl (Dilaudid) 0.5 mg IVPUSH ONETIME ONE Stop: 09/03/18 12:40 Last Admin: 09/03/18 12:44 Dose: 0.5 mg Hydromorphone HCl (Dilaudid) 1 mg IVPUSH ONETIME ONE Stop: 09/03/18 12:57 Last Admin: 09/03/18 13:00 Dose: 1 mg Sodium Chloride (Normal Saline) 1,000 mls @ 1,000 mls/hr IV .BOLUS ONE Stop: 09/03/18 12:17 Last Admin: 09/03/18 11:25 Dose: 1,000 mls/hr Piperacillin/Tazobactam/ (Dextrose 4.5 gm/ Premix) 100 mls @ 200 mls/hr IV ONETIME ONE Stop: 09/03/18 13:29 Last Admin: 09/03/18 13:04 Dose: 200 mls/hr Sodium Chloride (Normal Saline) 1,000 mls @ 500 mls/hr IV ASDIRECTED [facility] Last Admin: 09/03/18 13:00 Dose: 500 mls/hr Lactated Ringer's (Ringers, Lactated) 1,000 mls @ 125 mls/hr IV ASDIRECTED [facility] Last Admin: 09/03/18 16:07 Dose: 125 mls/hr Aztreonam 2 gm/ Sodium (Chloride) 100 mls @ 200 mls/hr IV NOW ONE Stop: 09/03/18 15:29 Last Admin: 09/03/18 14:56 Dose: 200 mls/hr Meropenem 500 mg/ Sodium (Chloride) 50 mls @ 100 mls/hr IV ONCALL ONE Stop: 09/03/18 17:29 Last Admin: 09/03/18 16:25 Dose: 100 mls/hr Piperacillin/Tazobactam/ (Dextrose 3.375 gm/ Premix) 50 mls @ 100 mls/hr IV Q6H [facility] Last Admin: 09/03/18 22:15 Dose: Not Given Sodium Chloride (Normal Saline) Confirm Administered Dose 500 mls @ as directed .ROUTE .STK-MED ONE Stop: 09/03/18 18:33 Aztreonam/Dextrose 1 gm/ (Premix) 50 mls @ 100 mls/hr IV Q8HR [facility] Sodium Chloride (Normal Saline) Confirm Administered Dose 50 mls @ as directed .ROUTE .STK-MED ONE Stop: 09/03/18 22:01 Last Admin: 09/03/18 22:21 Dose: Not Given Aztreonam/Dextrose 1 gm/ (Premix) 50 mls @ 100 mls/hr IV Q8H [facility] Last Admin: 09/04/18 07:30 Dose: Not Given Dextrose/Lactated Ringer's (Dextrose 5%-Lactated Ringers) 1,000 mls @ 100 mls/ hr IV ASDIRECTED PRN PRN Reason: Hypotension Dextrose/Lactated Ringer's (Dextrose 5%-Lactated Ringers) 1,000 mls @ 100 mls/ hr IV ASDIRECTED [facility] Last Admin: 09/05/18 02:13 Dose: 100 mls/hr Lactated Ringer's (Ringers, Lactated) 1,000 mls @ 100 mls/hr IV ASDIRECTED [facility] Last Admin: 09/04/18 04:20 Dose: 100 mls/hr Lactated Ringer's (Ringers, Lactated) 500 mls @ 500 mls/hr IV .BOLUS [facility] Last Admin: 09/04/18 01:10 Dose: 500 mls/hr Lactated Ringer's (Ringers, Lactated) 500 mls @ 500 mls/hr IV .BOLUS NAHED Last Admin: 09/04/18 03:13 Dose: 500 mls/hr Propofol (Diprivan 100 Ml) 100 mls @ 1.361 mls/hr IV TITRATE [facility]; Protocol Last Titration: 09/04/18 07:52 Dose: 14 mcg/kg/min, 3.81 mls/hr Propofol (Diprivan 100 Ml) Confirm Administered Dose 100 mls @ as directed .ROUTE .K-MED ONE Stop: 09/04/18 03:45 Last Admin: 09/04/18 03:59 Dose: Not Given Lactated Ringer's (Ringers, Lactated) 500 mls @ 999 mls/hr IV .BOLUS [facility]HED Last Admin: 09/04/18 06:10 Dose: 999 mls/hr Aztreonam/Dextrose 1 gm/ (Premix) 50 mls @ 100 mls/hr IV Q8H [facility] Last Admin: 09/07/18 08:15 Dose: 100 mls/hr Lactated Ringer's (Ringers, Lactated) 500 mls @ 500 mls/hr IV ASDIRECTED [facility] Last Admin: 09/04/18 21:04 Dose: 500 mls/hr Lactated Ringer's (Ringers, Lactated) Confirm Administered Dose 1,000 mls @ as directed .ROUTE .[facility] ONE Stop: 09/04/18 13:11 Lactated Ringer's (Ringers, Lactated) Confirm Administered Dose 1,000 mls @ as directed .ROUTE .[facility] ONE Stop: 09/04/18 13:11 Sodium Chloride (Normal Saline) Confirm Administered Dose 10 mls @ as directed .ROUTE .[facility] ONE Stop: 09/04/18 13:15 Magnesium Sulfate 2 gm/ Premix 50 mls @ 25 mls/hr IV Q6H [facility] Stop: 09/06/18 11:59 Last Admin: 09/06/18 10:17 Dose: 25 mls/hr Lactated Ringer's (Ringers, Lactated) 500 mls @ 500 mls/hr IV ASDIRECTED [facility] Stop: 09/04/18 17:46 Lactated Ringer's (Ringers, Lactated) 500 mls @ 500 mls/hr IV ONETIME ONE Stop: 09/04/18 19:29 Last Admin: 09/04/18 18:37 Dose: 500 mls/hr Lactated Ringer's (Ringers, Lactated) 500 mls @ 1,000 mls/hr IV ONETIME ONE Stop: 09/04/18 23:30 Last Admin: 09/04/18 23:18 Dose: 1,000 mls/hr Lactated Ringer's (Ringers, Lactated) 500 mls @ 1,000 mls/hr IV ONETIME ONE Stop: 09/05/18 01:44 Last Admin: 09/05/18 01:15 Dose: 1,000 mls/hr Lactated Ringer's (Ringers, Lactated) 1,000 mls @ 150 mls/hr IV ASDIRECTED [facility] Last Admin: 09/05/18 02:13 Dose: 150 mls/hr Lactated Ringer's (Ringers, Lactated) 500 mls @ 1,000 mls/hr IV ONETIME ONE Stop: 09/05/18 03:38 Last Admin: 09/05/18 03:15 Dose: 1,000 mls/hr Multivitamins/Minerals 10 ml/Chromium/Copper/Manganese/Seleni/Zn 1 ml/ Amino Ac/ Electrol/Dextrose/Calcium 2,011 mls @ 82 mls/hr IV .BY DURATION [facility] Stop: 09/05/18 13:25 Last Admin: 09/05/18 13:32 Dose: Not Given Amino Ac/Electrol/Dextrose/Calcium (Clinimix E 15) 2,000 mls @ 82 mls/hr IV .BY DURATION [facility] Stop: 09/05/18 13:25 Vancomycin HCl 1 gm/ Sodium (Chloride) 250 mls @ 167 mls/hr IV Q24H [facility] Last Admin: 09/05/18 12:34 Dose: 167 mls/hr Sodium Chloride (Normal Saline) 1,000 mls @ 50 mls/hr IV ASDIRECTED [facility] Last Admin: 09/05/18 12:51 Dose: 50 mls/hr Vancomycin HCl 1 gm/ Sodium (Chloride) 250 mls @ 167 mls/hr IV Q24H [facility] Last Admin: 09/06/18 12:00 Dose: 167 mls/hr Sodium Chloride (Normal Saline) 500 mls @ 500 mls/hr IV ASDIRECTED ONE Stop: 09/05/18 16:29 Last Admin: 09/05/18 15:40 Dose: 500 mls/hr Sodium Chloride (Normal Saline) 1,000 mls @ 100 mls/hr IV ASDIRECTED [facility] Last Admin: 09/07/18 07:31 Dose: 100 mls/hr Potassium Phosphate 20 mmole/ (Sodium Chloride) 106.6667 mls @ 35 mls/hr IV Q3H [facility] Stop: 09/07/18 17:29 Last Admin: 09/07/18 15:01 Dose: 35 mls/hr Sodium Chloride (Normal Saline) 1,000 mls @ 999 mls/hr IV .BOLUS ONE Stop: 09/07/18 17:39 Last Admin: 09/07/18 17:26 Dose: 999 mls/hr Lidocaine/Epinephrine (Xylocaine 1% With Epinephrine 1:100,000) Confirm Administered Dose 50 ml .ROUTE .STK-MED ONE Stop: 09/07/18 06:48 Last Admin: 09/07/18 10:54 Dose: 18 ml Lorazepam (Ativan) 0.5 mg IVPUSH Q4H PRN PRN Reason: Nausea/Vomiting Meropenem (Merrem) Confirm Administered Dose 1,000 mg .ROUTE .STK-MED ONE Stop: 09/03/18 17:54 Last Admin: 09/03/18 18:32 Dose: 3,500 mg Meropenem (Merrem) Confirm Administered Dose 1,000 mg .ROUTE .STK-MED ONE Stop: 09/03/18 18:04 Meropenem (Merrem) Confirm Administered Dose 2,000 mg .ROUTE .STK-MED ONE Stop: 09/03/18 18:18 Meropenem (Merrem) Confirm Administered Dose 500 mg .ROUTE .STK-MED ONE Stop: 09/07/18 06:48 Last Admin: 09/07/18 10:53 Dose: 500 mg Metoprolol Tartrate (Lopressor) 25 mg PO ONETIME ONE Stop: 09/03/18 10:41 Last Admin: 09/03/18 11:00 Dose: 25 mg Metoprolol Tartrate (Lopressor) 5 mg IVPUSH Q6H [facility] Last Admin: 09/08/18 09:25 Dose: 5 mg Neostigmine Methylsulfate (Neostigmine) Confirm Administered Dose 5 mg .ROUTE .STK-MED ONE Stop: 09/03/18 14:41 Neostigmine Methylsulfate (Neostigmine) Confirm Administered Dose 5 mg .ROUTE .STK-MED ONE Stop: 09/04/18 09:47 Ondansetron HCl (Zofran Odt) 4 mg PO Q6H PRN PRN Reason: Nausea able to take PO Ondansetron HCl (Zofran) 4 mg IV Q6H PRN PRN Reason: Nausea/Vomiting Ondansetron HCl (Zofran) Confirm Administered Dose 4 mg .ROUTE .STK-MED ONE Stop: 09/03/18 14:41 Ondansetron HCl (Zofran) Confirm Administered Dose 4 mg .ROUTE .STK-MED ONE Stop: 09/04/18 09:47 Pantoprazole Sodium (Protonix Iv) 40 mg IV Q12H [facility] Last Admin: 09/03/18 16:07 Dose: 40 mg Piperacillin Sod/Tazobactam Sod (Zosyn) 10.125 gm .XX ASDIRECTED [facility] Stop: 09/04/18 15:00 Last Admin: 09/04/18 14:04 Dose: 10.125 gm Propofol (Diprivan 20 Ml) Confirm Administered Dose 200 mg .ROUTE .STK-MED ONE Stop: 09/03/18 14:41 Propofol (Diprivan 20 Ml) Confirm Administered Dose 200 mg .ROUTE .STK-MED ONE Stop: 09/04/18 09:47 Propofol (Diprivan 20 Ml) Confirm Administered Dose 200 mg .ROUTE .STK-MED ONE Stop: 09/06/18 07:01 Rocuronium Lynch (Zemuron) Confirm Administered Dose 50 mg .ROUTE .STK-MED ONE Stop: 09/03/18 14:41 Rocuronium Lynch (Zemuron) Confirm Administered Dose 50 mg .ROUTE .STK-MED ONE Stop: 09/04/18 09:47 Succinylcholine Chloride (Quelicin) Confirm Administered Dose 200 mg .ROUTE .STK -MED ONE Stop: 09/03/18 14:41 Succinylcholine Chloride (Quelicin) Confirm Administered Dose 200 mg .ROUTE .STK -MED ONE Stop: 09/04/18 09:47 Succinylcholine Chloride (Quelicin) Confirm Administered Dose 200 mg .ROUTE .STK -MED ONE Stop: 09/06/18 07:01 - Exam Quality Assessment: Supplemental Oxygen (Ventilator), DVT Prophylaxis General: Sedated, Lethargic Lungs: Decreased Breath Sounds, Rales. No: Rhonchi, Rub, Wheezing Cardiovascular: Regular Rate, No Murmurs, Tachycardia GI/Abdominal Exam: Soft, No Organomegaly, Tender. No: Distended, Guarding, Rigid, Rebound Extremities: Non-Tender, Pedal Edema Skin: Warm, Dry - Problem List Review Problem List Initiated/Reviewed/Updated: Yes - My Orders Last 24 Hours: My Active Orders 09/07/18 10:19 Mechanical Ventilation [RT Ventilator, Adult] [RC] Q2H 09/08/18 10:53 hydrALAZINE [Apresoline] 5 mg IVPUSH Q4H PRN 09/08/18 10:55 Abdomen Pelvis w Cont [CT] Stat - Plan Plan:: ASSESSMENT AND PLAN - Perforated sigmoid colon with sepsis - Initial surgical resection on 09/03 and Second Look laparotomy on 09/04. Sepsis has resolved. Cultures growing Klebsiella , Escherichia coli and anaerobic bacteria. No fevers white blood cell count elevated at 23,000. CT scan abdomen and pelvis shows no evidence of abscess present. -Continue Meropenem, and vancomycin, pending culture results -Pain control with INVESTOR -Follow-up cultures Acute respiratory failure with hypoxia and hypercapnia - likely multifactorial with fatigue, hypoventilation and possible component of fluid. She is now intubated and mechanically ventilated. She is stable with mechanical ventilation. BNP is quite elevated but there is no history of congestive heart failure. Echocardiogram shows low normal left ventricular function, mild LVH. CT scan obtained today does show evidence of bilateral pulmonary infiltrates consistent with pneumonia. She failed spontaneous breathing trial earlier today. -Discontinue aztreonam -Add gentamicin and azithromycin to current regimen -Continue mechanical ventilation -Sedation is needed to avoid significant agitation -Soft wrist restraints -Optimize volume status -Spontaneous breathing trial in a.m. Acute kidney injury - renal function improved over the past few days -Management as above -Repeat labs in the morning Hyperactive delirium - probably combination of infection and anesthesia as well as a medications. She is now lightly sedated with her intubation. -Symptomatically management and treatment of the above conditions Maintenance issues - - DVT prophylaxis - mechanical - GI prophylaxis - PPI - Nutrition - nothing by mouth - Rubin catheter - placed for strict intake and output monitoring and a critical patient Disposition - I would anticipate discharge home after the hospital stay
[2018-09-08] MEDS ORDERED: Iopamidol 612 MG/ML 100 ML Bottle IV PRN (11:02)
[2018-09-08] MEDS ORDERED: Sodium Chloride 0.9% 100 ML IV SCH (11:15)
[2018-09-08] MEDS: Sodium Chloride 0.9% 1,000 ML IV SCH (11:20)
--- NOTE | 2018-09-08 11:48 | PCM.SURGPN ---
- General Info Date of Service: 09/08/18 POD#: other (From original exploratory laparotomy) - Review of Systems Systems Review Comment:: Tina Muniz is currently on postoperative day #5 from the original exploratory laparotomy surgery. She is currently on a mechanical ventilator. Vital signs show a pulse rate of 105, blood pressure of 172/76, and a respiratory rate of 22. She has not produced anything from the ostomy. She is oxygenating well on the ventilator. Her output on a Rubin catheter is 4310 mL. Nasogastric output amount is 50 mL. 2 REMY drains totals 100. There is mild shadowing on the Aquacel. The REMY drains are producing serous fluid. Incision sites appear to be healing well. - Patient Data Vitals - Most Recent: Last Vital Signs Temp 35.8 C 09/08/18 08:00 Pulse 98 09/08/18 11:06 Resp 19 09/08/18 11:06 BP 134/76 09/08/18 11:06 Pulse Ox 95 09/08/18 11:06 Weight - Most Recent: 45.359 kg I&O - Last 24 Hours: Intake & Output 09/07/18 09/08/18 09/08/18 22:59 06:59 14:59 Intake Total 2761 1706 270 Output Total 1475 1175 1020 Balance 1286 531 -750 Lab Results Last 24 Hrs: Laboratory Results - last 24 hr 09/07/18 09/08/18 09/08/18 Range/Units 12:10 03:40 03:40 WBC 23.5 H (4.5-11.0) K/uL RBC 2.71 L (3.30-5.50) M/uL Hgb 9.0 L (12.0-15.0) g/dL Hct 26.5 L (36.0-48.0) % MCV 98 (80-98) fL MCH 33 H (27-31) pg MCHC 34 (32-36) % Plt Count 229 (150-400) K/uL Puncture Site A-line ABG pH 7.415 (7.350-7.450) ABG pCO2 42.3 H (35.0-42.0) mmHg ABG pO2 125.0 H (75.0-100.0) mmHg ABG HCO3 26.6 H (22.0-26.0) mmol/L ABG Total CO2 24.8 (21.0-25.0) mmol/L ABG O2 Saturation 98.6 H (95.0-98.0) % ABG O2 Content 13.1 L (15.0-23.0) %vol ABG Base Excess 2.3 mm/L ABG Hemoglobin 9.5 L (12.0-16.0) g/dL ABG Oxyhemoglobin 96.6 % ABG Carboxyhemoglobin 1.7 H (0.0-1.6) % ABG Methemoglobin 0.3 % Woody Test A-line O2 Delivery Device Ventilator Oxygen Flow Rate L Sodium (140-148) mmol/L Potassium (3.6-5.2) mmol/L Chloride (100-108) mmol/L Carbon Dioxide (21-32) mmol/L Anion Gap (5.0-14.0) mmol/L BUN (7-18) mg/dL Creatinine (0.6-1.0) mg/dL Est Cr Clr Drug Dosing mL/min Estimated GFR (MDRD) (>60) Glucose (74-106) mg/dL Calcium (8.5-10.1) mg/dL Phosphorus (2.5-4.9) mg/dL Total Bilirubin (0.2-1.0) mg/dL AST (15-37) U/L ALT (12-78) U/L Alkaline Phosphatase (46-116) U/L NT-Pro-B Natriuret Pep (5-450) pg/mL Total Protein (6.4-8.2) g/dL Albumin (3.4-5.0) g/dL Globulin (2.3-3.5) g/dL Albumin/Globulin Ratio (1.2-2.2) Vancomycin Trough 12.8 (10.0-20.0) ug/mL 09/08/18 Range/Units 03:40 WBC (4.5-11.0) K/uL RBC (3.30-5.50) M/uL Hgb (12.0-15.0) g/dL Hct (36.0-48.0) % MCV (80-98) fL MCH (27-31) pg MCHC (32-36) % Plt Count (150-400) K/uL Puncture Site ABG pH (7.350-7.450) ABG pCO2 (35.0-42.0) mmHg ABG pO2 (75.0-100.0) mmHg ABG HCO3 (22.0-26.0) mmol/L ABG Total CO2 (21.0-25.0) mmol/L ABG O2 Saturation (95.0-98.0) % ABG O2 Content (15.0-23.0) %vol ABG Base Excess mm/L ABG Hemoglobin (12.0-16.0) g/dL ABG Oxyhemoglobin % ABG Carboxyhemoglobin (0.0-1.6) % ABG Methemoglobin % Woody Test O2 Delivery Device Oxygen Flow Rate L Sodium 143 (140-148) mmol/L Potassium 4.0 (3.6-5.2) mmol/L Chloride 106 (100-108) mmol/L Carbon Dioxide 27 (21-32) mmol/L Anion Gap 9.8 (5.0-14.0) mmol/L BUN 51 H (7-18) mg/dL Creatinine 0.9 (0.6-1.0) mg/dL Est Cr Clr Drug Dosing 36.89 mL/min Estimated GFR (MDRD) > 60 (>60) Glucose 163 H (74-106) mg/dL Calcium 7.6 L (8.5-10.1) mg/dL Phosphorus 5.0 H (2.5-4.9) mg/dL Total Bilirubin 0.4 D (0.2-1.0) mg/dL AST 20 (15-37) U/L ALT 20 (12-78) U/L Alkaline Phosphatase 130 H (46-116) U/L NT-Pro-B Natriuret Pep 66319 H (5-450) pg/mL Total Protein 5.5 L (6.4-8.2) g/dL Albumin 2.1 L (3.4-5.0) g/dL Globulin 3.4 (2.3-3.5) g/dL Albumin/Globulin Ratio 0.6 L (1.2-2.2) Vancomycin Trough (10.0-20.0) ug/mL Joseph Results Last 24 Hrs: Microbiology 09/07/18 05:22 Gram Stain - Final Endotrachial Tube Respiratory Culture - Preliminary 09/03/18 12:10 Aerobic Blood Culture - Preliminary Blood - Venous NO GROWTH AFTER 4 DAYS Anaerobic Blood Culture - Final Anaerobic Gram Negative Cuco 09/03/18 12:20 Aerobic Blood Culture - Preliminary Blood - Arm, Left NO GROWTH AFTER 4 DAYS Anaerobic Blood Culture - Final Anaerobic Gram Negative Cuco Med Orders - Current: Current Medications Furosemide (Lasix) 20 mg IVPUSH Q12H [facility] Stop: 09/08/18 19:01 Last Admin: 09/08/18 08:35 Dose: 20 mg Hydralazine HCl (Apresoline) 5 mg IVPUSH Q4H PRN PRN Reason: Hypertension Hydromorphone HCl (Dilaudid Economic Research Assistant 15 Mg In Ns 30 Ml) 0 mg IV ASDIRECTED PRN; Protocol PRN Reason: COOKING IN[employer] 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 Last Admin: 09/05/18 16:37 Dose: 15 mg Hydroxyzine HCl (Vistaril) 50 mg IM Q4H PRN PRN Reason: Pain Meropenem 500 mg/ Sodium (Chloride) 50 mls @ 100 mls/hr IV Q8H [facility] Last Admin: 09/08/18 05:06 Dose: 100 mls/hr Heparin Sodium (Porcine) 5,000 (units/ Sodium Chloride) 501 mls @ 5 mls/hr IV ASDIRECTED [facility] Last Admin: 09/06/18 08:23 Dose: 5 mls/hr Multivitamins/Minerals 10 ml/Chromium/Copper/Manganese/Seleni/Zn 1 ml/ Amino Ac/ Electrol/Dextrose/Calcium 2,011 mls @ 82 mls/hr IV .BY DURATION [facility] Stop: 09/08/18 13:20 Last Admin: 09/07/18 15:09 Dose: 82 mls/hr Amino Ac/Electrol/Dextrose/Calcium (Clinimix E 15) 2,000 mls @ 82 mls/hr IV .BY DURATION [facility] Stop: 09/08/18 13:20 Heparin Sodium (Porcine) 5,000 (units/ Sodium Chloride) 501 mls @ 5 mls/hr IV ASDIRECTED [facility] Last Admin: 09/06/18 08:24 Dose: 5 mls/hr Propofol (Diprivan 100 Ml) 100 mls @ 1.361 mls/hr IV TITRATE NAHED; Protocol Last Titration: 09/08/18 11:08 Dose: 35 mcg/kg/min, 9.525 mls/hr Albumin Human (Albumin 25%) 25 gm in 100 mls @ 25 mls/hr IV DAILY [facility] Stop: 09/09/18 12:59 Last Admin: 09/08/18 09:31 Dose: 25 mls/hr Albumin Human (Albumin 25%) 25 gm in 100 mls @ 25 mls/hr IV Q24H [facility] Stop: 09/09/18 17:59 Last Admin: 09/07/18 14:30 Dose: 25 mls/hr Sodium Chloride (Normal Saline) 1,000 mls @ 0 mls/hr IV ASDIRECTED [facility] Last Admin: 09/08/18 11:20 Dose: 12.5 mls/hr Aztreonam 1 gm/ Sodium (Chloride) 50 mls @ 100 mls/hr IV Q8H [facility] Last Admin: 09/08/18 09:41 Dose: 100 mls/hr Vancomycin HCl 1 gm/ Sodium (Chloride) 250 mls @ 167 mls/hr IV Q18H [facility] Last Admin: 09/08/18 06:03 Dose: 167 mls/hr Potassium Acetate 40 meq/ (Sodium Chloride) 120 mls @ 30 mls/hr IV ONETIME ONE Stop: 09/08/18 13:59 Last Admin: 09/08/18 09:44 Dose: 30 mls/hr Multivitamins/Minerals 10 ml/Chromium/Copper/Manganese/Seleni/Zn 1 ml/ Amino Ac/ Electrol/Dextrose/Calcium 1,011 mls @ 62 mls/hr IV .BY DURATION [facility] Amino Ac/Electrol/Dextrose/Calcium (Clinimix E 5/20) 1,000 mls @ 62 mls/hr IV .BY DURATION [facility] Sodium Chloride (Normal Saline) 100 mls @ 3 mls/sec IV ASDIRECTED [facility] Stop: 09/08/18 15:00 Iopamidol (Isovue-300 (61%)) 100 ml IV . DIRECTED PRN PRN Reason: RADIOLOGY EXAM Stop: 09/09/18 11:03 Lorazepam (Ativan) 0.5 mg IVPUSH Q3H PRN PRN Reason: AGITATION Last Admin: 09/05/18 03:50 Dose: 0.25 mg Naloxone HCl (Narcan) 0.1 mg IV ASDIRECTED PRN PRN Reason: decreased respiratory rate Pantoprazole Sodium (Protonix Iv) 40 mg IV Q24H [facility] Last Admin: 09/07/18 21:47 Dose: 40 mg Discontinued Medications Acetaminophen (Tylenol) 650 mg PO Q4H PRN PRN Reason: Pain (Mild 1-3)/fever Acetaminophen (Tylenol) 650 mg RECTAL Q4H PRN PRN Reason: Mild pain/fever Albuterol (Proventil Neb Soln) 2.5 mg NEB Q4H PRN PRN Reason: Shortness Of Breath/wheezing Albuterol/Ipratropium (Duoneb 3.0-0.5 Mg/3 Ml) 3 ml INH PREPRO ONE Stop: 09/03/18 17:01 Last Admin: 09/03/18 16:25 Dose: 3 ml Aztreonam (Azactam) Confirm Administered Dose 1 gm .ROUTE .STK-MED ONE Stop: 09/03/18 21:44 Last Admin: 09/03/18 22:15 Dose: Not Given Benazepril HCl (Lotensin) 40 mg PO ONETIME ONE Stop: 09/03/18 10:41 Last Admin: 09/03/18 11:00 Dose: 40 mg Bupivacaine HCl (Marcaine 0.5%) Confirm Administered Dose 50 ml .ROUTE .STK-MED ONE Stop: 09/07/18 06:48 Last Admin: 09/07/18 10:53 Dose: 18 ml Ropivacaine 22 ml/Dexamethasone 8 mg/Epinephrine HCl 0.4 mg/ Sodium Chloride 55.6 ml 0 ml NERVRT ASDIRECTED [facility] Ropivacaine 22 ml/Dexamethasone 8 mg/Epinephrine HCl 0.4 mg/ Sodium Chloride 55.6 ml 0 ml NERVRT ASDIRECTED [facility] Last Admin: 09/04/18 14:03 Dose: 80 syringe Ropivacaine 22 ml/Dexamethasone 8 mg/Epinephrine HCl 0.4 mg/ Sodium Chloride 55.6 ml 0 ml NERVRT ASDIRECTED [facility] Last Admin: 09/07/18 11:07 Dose: 80 syringe Dexamethasone (Dexamethasone) Confirm Administered Dose 4 mg .ROUTE .STK-MED ONE Stop: 09/03/18 14:41 Dexamethasone (Dexamethasone) Confirm Administered Dose 4 mg .ROUTE .STK-MED ONE Stop: 09/04/18 09:47 Fentanyl (Sublimaze) 25 mcg IVPUSH ONETIME ONE Stop: 09/03/18 13:57 Last Admin: 09/03/18 14:16 Dose: 25 mcg Fentanyl (Sublimaze) 25 mcg IVPUSH Q2H PRN PRN Reason: Pain (severe 7-10) Fentanyl (Sublimaze) Confirm Administered Dose 250 mcg .ROUTE .STK-MED ONE Stop: 09/03/18 14:41 Fentanyl (Sublimaze) Confirm Administered Dose 250 mcg .ROUTE .STK-MED ONE Stop: 09/04/18 09:46 Fentanyl (Sublimaze) Confirm Administered Dose 250 mcg .ROUTE .STK-MED ONE Stop: 09/04/18 13:57 Furosemide (Lasix) 20 mg IVPUSH ONETIME ONE Stop: 09/04/18 15:10 Last Admin: 09/04/18 15:18 Dose: 20 mg Furosemide (Lasix) 40 mg IV ONETIME ONE Stop: 09/06/18 08:16 Last Admin: 09/06/18 08:26 Dose: 40 mg Furosemide (Lasix) 20 mg IV Q12H NAHED Stop: 09/07/18 20:01 Last Admin: 09/07/18 20:10 Dose: 20 mg Glycopyrrolate (Robinul) Confirm Administered Dose 1 mg .ROUTE .STK-MED ONE Stop: 09/03/18 14:41 Glycopyrrolate (Robinul) Confirm Administered Dose 1 mg .ROUTE .STK-MED ONE Stop: 09/04/18 09:47 Heparin Sodium (Porcine) (Heparin Sodium) Confirm Administered Dose 5,000 units .ROUTE .STK-MED ONE Stop: 09/03/18 18:32 Heparin Sodium (Porcine) (Heparin Lock Flush 100 Units/Ml) Confirm Administered Dose 500 units .ROUTE .STK-MED ONE Stop: 09/04/18 13:14 Hydromorphone HCl (Dilaudid) 0.5 mg IVPUSH ONETIME ONE Stop: 09/03/18 10:48 Last Admin: 09/03/18 11:00 Dose: 0.5 mg Hydromorphone HCl (Dilaudid) 0.5 mg IVPUSH ONETIME ONE Stop: 09/03/18 11:22 Last Admin: 09/03/18 11:25 Dose: 0.5 mg Hydromorphone HCl (Dilaudid) 0.5 mg IVPUSH ONETIME ONE Stop: 09/03/18 12:10 Last Admin: 09/03/18 12:12 Dose: 0.5 mg Hydromorphone HCl (Dilaudid) 0.5 mg IVPUSH ONETIME ONE Stop: 09/03/18 12:40 Last Admin: 09/03/18 12:44 Dose: 0.5 mg Hydromorphone HCl (Dilaudid) 1 mg IVPUSH ONETIME ONE Stop: 09/03/18 12:57 Last Admin: 09/03/18 13:00 Dose: 1 mg Sodium Chloride (Normal Saline) 1,000 mls @ 1,000 mls/hr IV .BOLUS ONE Stop: 09/03/18 12:17 Last Admin: 09/03/18 11:25 Dose: 1,000 mls/hr Piperacillin/Tazobactam/ (Dextrose 4.5 gm/ Premix) 100 mls @ 200 mls/hr IV ONETIME ONE Stop: 09/03/18 13:29 Last Admin: 09/03/18 13:04 Dose: 200 mls/hr Sodium Chloride (Normal Saline) 1,000 mls @ 500 mls/hr IV ASDIRECTED [facility] Last Admin: 09/03/18 13:00 Dose: 500 mls/hr Lactated Ringer's (Ringers, Lactated) 1,000 mls @ 125 mls/hr IV ASDIRECTED [facility] Last Admin: 09/03/18 16:07 Dose: 125 mls/hr Aztreonam 2 gm/ Sodium (Chloride) 100 mls @ 200 mls/hr IV NOW ONE Stop: 09/03/18 15:29 Last Admin: 09/03/18 14:56 Dose: 200 mls/hr Meropenem 500 mg/ Sodium (Chloride) 50 mls @ 100 mls/hr IV ONCALL ONE Stop: 09/03/18 17:29 Last Admin: 09/03/18 16:25 Dose: 100 mls/hr Piperacillin/Tazobactam/ (Dextrose 3.375 gm/ Premix) 50 mls @ 100 mls/hr IV Q6H [facility] Last Admin: 09/03/18 22:15 Dose: Not Given Sodium Chloride (Normal Saline) Confirm Administered Dose 500 mls @ as directed .ROUTE .STK-MED ONE Stop: 09/03/18 18:33 Aztreonam/Dextrose 1 gm/ (Premix) 50 mls @ 100 mls/hr IV Q8HR NAHED Sodium Chloride (Normal Saline) Confirm Administered Dose 50 mls @ as directed .ROUTE .K-MED ONE Stop: 09/03/18 22:01 Last Admin: 09/03/18 22:21 Dose: Not Given Aztreonam/Dextrose 1 gm/ (Premix) 50 mls @ 100 mls/hr IV Q8H NAHED Last Admin: 09/04/18 07:30 Dose: Not Given Dextrose/Lactated Ringer's (Dextrose 5%-Lactated Ringers) 1,000 mls @ 100 mls/ hr IV ASDIRECTED PRN PRN Reason: Hypotension Dextrose/Lactated Ringer's (Dextrose 5%-Lactated Ringers) 1,000 mls @ 100 mls/ hr IV ASDIRECTED NAHED Last Admin: 09/05/18 02:13 Dose: 100 mls/hr Lactated Ringer's (Ringers, Lactated) 1,000 mls @ 100 mls/hr IV ASDIRECTED NAHED Last Admin: 09/04/18 04:20 Dose: 100 mls/hr Lactated Ringer's (Ringers, Lactated) 500 mls @ 500 mls/hr IV .BOLUS NAHED Last Admin: 09/04/18 01:10 Dose: 500 mls/hr Lactated Ringer's (Ringers, Lactated) 500 mls @ 500 mls/hr IV .BOLUS NAHED Last Admin: 09/04/18 03:13 Dose: 500 mls/hr Propofol (Diprivan 100 Ml) 100 mls @ 1.361 mls/hr IV TITRATE NAHED; Protocol Last Titration: 09/04/18 07:52 Dose: 14 mcg/kg/min, 3.81 mls/hr Propofol (Diprivan 100 Ml) Confirm Administered Dose 100 mls @ as directed .ROUTE .[facility] ONE Stop: 09/04/18 03:45 Last Admin: 09/04/18 03:59 Dose: Not Given Lactated Ringer's (Ringers, Lactated) 500 mls @ 999 mls/hr IV .BOLUS NAHED Last Admin: 09/04/18 06:10 Dose: 999 mls/hr Aztreonam/Dextrose 1 gm/ (Premix) 50 mls @ 100 mls/hr IV Q8H NAHED Last Admin: 09/07/18 08:15 Dose: 100 mls/hr Lactated Ringer's (Ringers, Lactated) 500 mls @ 500 mls/hr IV ASDIRECTED [facility] Last Admin: 09/04/18 21:04 Dose: 500 mls/hr Lactated Ringer's (Ringers, Lactated) Confirm Administered Dose 1,000 mls @ as directed .ROUTE .STK-MED ONE Stop: 09/04/18 13:11 Lactated Ringer's (Ringers, Lactated) Confirm Administered Dose 1,000 mls @ as directed .ROUTE .STK-[facility] ONE Stop: 09/04/18 13:11 Sodium Chloride (Normal Saline) Confirm Administered Dose 10 mls @ as directed .ROUTE .K-[facility] ONE Stop: 09/04/18 13:15 Magnesium Sulfate 2 gm/ Premix 50 mls @ 25 mls/hr IV Q6H [facility] Stop: 09/06/18 11:59 Last Admin: 09/06/18 10:17 Dose: 25 mls/hr Lactated Ringer's (Ringers, Lactated) 500 mls @ 500 mls/hr IV ASDIRECTED [facility] Stop: 09/04/18 17:46 Lactated Ringer's (Ringers, Lactated) 500 mls @ 500 mls/hr IV ONETIME ONE Stop: 09/04/18 19:29 Last Admin: 09/04/18 18:37 Dose: 500 mls/hr Lactated Ringer's (Ringers, Lactated) 500 mls @ 1,000 mls/hr IV ONETIME ONE Stop: 09/04/18 23:30 Last Admin: 09/04/18 23:18 Dose: 1,000 mls/hr Lactated Ringer's (Ringers, Lactated) 500 mls @ 1,000 mls/hr IV ONETIME ONE Stop: 09/05/18 01:44 Last Admin: 09/05/18 01:15 Dose: 1,000 mls/hr Lactated Ringer's (Ringers, Lactated) 1,000 mls @ 150 mls/hr IV ASDIRECTED [facility] Last Admin: 09/05/18 02:13 Dose: 150 mls/hr Lactated Ringer's (Ringers, Lactated) 500 mls @ 1,000 mls/hr IV ONETIME ONE Stop: 09/05/18 03:38 Last Admin: 09/05/18 03:15 Dose: 1,000 mls/hr Multivitamins/Minerals 10 ml/Chromium/Copper/Manganese/Seleni/Zn 1 ml/ Amino Ac/ Electrol/Dextrose/Calcium 2,011 mls @ 82 mls/hr IV .BY DURATION [facility] Stop: 09/05/18 13:25 Last Admin: 09/05/18 13:32 Dose: Not Given Amino Ac/Electrol/Dextrose/Calcium (Clinimix E 09/23) 2,000 mls @ 82 mls/hr IV .BY DURATION [facility] Stop: 09/05/18 13:25 Vancomycin HCl 1 gm/ Sodium (Chloride) 250 mls @ 167 mls/hr IV Q24H [facility] Last Admin: 09/05/18 12:34 Dose: 167 mls/hr Sodium Chloride (Normal Saline) 1,000 mls @ 50 mls/hr IV ASDIRECTED [facility] Last Admin: 09/05/18 12:51 Dose: 50 mls/hr Vancomycin HCl 1 gm/ Sodium (Chloride) 250 mls @ 167 mls/hr IV Q24H [facility] Last Admin: 09/06/18 12:00 Dose: 167 mls/hr Sodium Chloride (Normal Saline) 500 mls @ 500 mls/hr IV ASDIRECTED ONE Stop: 09/05/18 16:29 Last Admin: 09/05/18 15:40 Dose: 500 mls/hr Sodium Chloride (Normal Saline) 1,000 mls @ 100 mls/hr IV ASDIRECTED [facility] Last Admin: 09/07/18 07:31 Dose: 100 mls/hr Potassium Phosphate 20 mmole/ (Sodium Chloride) 106.6667 mls @ 35 mls/hr IV Q3H [facility] Stop: 09/07/18 17:29 Last Admin: 09/07/18 15:01 Dose: 35 mls/hr Sodium Chloride (Normal Saline) 1,000 mls @ 999 mls/hr IV .BOLUS ONE Stop: 09/07/18 17:39 Last Admin: 09/07/18 17:26 Dose: 999 mls/hr Lidocaine/Epinephrine (Xylocaine 1% With Epinephrine 1:100,000) Confirm Administered Dose 50 ml .ROUTE .STK-MED ONE Stop: 09/07/18 06:48 Last Admin: 09/07/18 10:54 Dose: 18 ml Lorazepam (Ativan) 0.5 mg IVPUSH Q4H PRN PRN Reason: Nausea/Vomiting Meropenem (Merrem) Confirm Administered Dose 1,000 mg .ROUTE .STK-MED ONE Stop: 09/03/18 17:54 Last Admin: 09/03/18 18:32 Dose: 3,500 mg Meropenem (Merrem) Confirm Administered Dose 1,000 mg .ROUTE .STK-MED ONE Stop: 09/03/18 18:04 Meropenem (Merrem) Confirm Administered Dose 2,000 mg .ROUTE .STK-MED ONE Stop: 09/03/18 18:18 Meropenem (Merrem) Confirm Administered Dose 500 mg .ROUTE .STK-MED ONE Stop: 09/07/18 06:48 Last Admin: 09/07/18 10:53 Dose: 500 mg Metoprolol Tartrate (Lopressor) 25 mg PO ONETIME ONE Stop: 09/03/18 10:41 Last Admin: 09/03/18 11:00 Dose: 25 mg Metoprolol Tartrate (Lopressor) 5 mg IVPUSH Q6H [facility] Last Admin: 09/08/18 09:25 Dose: 5 mg Neostigmine Methylsulfate (Neostigmine) Confirm Administered Dose 5 mg .ROUTE .STK-MED ONE Stop: 09/03/18 14:41 Neostigmine Methylsulfate (Neostigmine) Confirm Administered Dose 5 mg .ROUTE .STK-MED ONE Stop: 09/04/18 09:47 Ondansetron HCl (Zofran Odt) 4 mg PO Q6H PRN PRN Reason: Nausea able to take PO Ondansetron HCl (Zofran) 4 mg IV Q6H PRN PRN Reason: Nausea/Vomiting Ondansetron HCl (Zofran) Confirm Administered Dose 4 mg .ROUTE .STK-MED ONE Stop: 09/03/18 14:41 Ondansetron HCl (Zofran) Confirm Administered Dose 4 mg .ROUTE .STK-MED ONE Stop: 09/04/18 09:47 Pantoprazole Sodium (Protonix Iv) 40 mg IV Q12H NAHED Last Admin: 09/03/18 16:07 Dose: 40 mg Piperacillin Sod/Tazobactam Sod (Zosyn) 10.125 gm .XX ASDIRECTED [facility] Stop: 09/04/18 15:00 Last Admin: 09/04/18 14:04 Dose: 10.125 gm Propofol (Diprivan 20 Ml) Confirm Administered Dose 200 mg .ROUTE .STK-MED ONE Stop: 09/03/18 14:41 Propofol (Diprivan 20 Ml) Confirm Administered Dose 200 mg .ROUTE .STK-MED ONE Stop: 09/04/18 09:47 Propofol (Diprivan 20 Ml) Confirm Administered Dose 200 mg .ROUTE .STK-MED ONE Stop: 09/06/18 07:01 Rocuronium [place] (Zemuron) Confirm Administered Dose 50 mg .ROUTE .STK-MED ONE Stop: 09/03/18 14:41 Rocuronium [place] (Zemuron) Confirm Administered Dose 50 mg .ROUTE .STK-MED ONE Stop: 09/04/18 09:47 Succinylcholine Chloride (Quelicin) Confirm Administered Dose 200 mg .ROUTE .STK -MED ONE Stop: 09/03/18 14:41 Succinylcholine Chloride (Quelicin) Confirm Administered Dose 200 mg .ROUTE .STK -MED ONE Stop: 09/04/18 09:47 Succinylcholine Chloride (Quelicin) Confirm Administered Dose 200 mg .ROUTE .STK -MED ONE Stop: 09/06/18 07:01 - Exam Wound/Incisions: Other (Mild shadowing of Aquacel) Quality Assessment: Supplemental Oxygen, Central Line/PICC, Urine Catheter General: Sedated, Lethargic Neck: Supple Lungs: Normal Respiratory Effort Cardiovascular: Regular Rate, Regular Rhythm GI/Abdominal Exam: No Distention Extremities: Other (Mild edema) Skin: Warm - Problem List Review Problem List Initiated/Reviewed/Updated: Yes - My Orders Last 24 Hours: Active Orders 24 hr Category Date Time Status Abdomen Pelvis w Cont [CT] Stat Exams 09/08/18 10:55 Ordered Chest 1V Frontal [CR] DAILY Exams 09/08/18 22:45 Stop Req Chest 1V Frontal [CR] DAILY Exams 09/09/18 04:00 Ordered Chest 1V Frontal [CR] DAILY Exams 09/09/18 22:45 Stop Req Chest 1V Frontal [CR] DAILY Exams 09/10/18 04:00 Ordered Chest 1V Frontal [CR] DAILY Exams 09/11/18 04:00 Ordered Chest 1V Frontal [CR] DAILY Exams 09/12/18 04:00 Ordered Chest 1V Frontal [CR] DAILY Exams 09/13/18 04:00 Ordered Chest 1V Frontal [CR] DAILY Exams 09/14/18 04:00 Ordered ABG [BLOOD GAS ARTERIAL] [BG] Routine Lab 09/09/18 04:00 Ordered CBC W/O DIFF,HEMOGRAM [HEME] Routine Lab 09/09/18 04:00 Ordered COMPREHENSIVE METABOLIC PN,CMP [CHEM] Routine Lab 09/09/18 04:00 Ordered MAGNESIUM [CHEM] Routine Lab 09/09/18 04:00 Ordered PHOSPHORUS [CHEM] Routine Lab 09/09/18 04:00 Ordered PRO B-TYPE NATRIUR PEPT,BNPPRO [CHEM] Routine Lab 09/09/18 04:00 Ordered RED BLOOD CELLS LP [BBK] Routine Lab 09/09/18 04:00 Ordered ALT Order Med 09/08/18 13:30 Active Albumin Human [Albumin 25%] Med 09/07/18 14:00 Active 25 gm in 100 ml IV Q24H Aztreonam [Azactam] 1 gm Med 09/07/18 17:00 Active Sodium Chloride 0.9% [Normal Saline] 50 ml IV Q8H Furosemide [Lasix] Med 09/08/18 07:00 Active 20 mg IVPUSH Q12H Iopamidol [Isovue-300 (61%)] Med 09/08/18 11:02 Active 100 ml IV . DIRECTED PRN Potassium Acetate 40 meq Med 09/08/18 10:00 Active Sodium Chloride 0.9% [Normal Saline] 100 ml IV ONETIME Sodium Chloride 0.9% [Normal Saline] 100 ml Med 09/08/18 11:15 Active IV ASDIRECTED Vancomycin 1 gm Med 09/07/18 13:00 Active Sodium Chloride 0.9% [Normal Saline] 250 ml IV Q18H hydrALAZINE [Apresoline] Med 09/08/18 10:53 Active 5 mg IVPUSH Q4H PRN Medication Orders Furosemide (Lasix) 20 mg IVPUSH Q12H NAHED Stop: 09/08/18 19:01 Last Admin: 09/08/18 08:35 Dose: 20 mg Hydralazine HCl (Apresoline) 5 mg IVPUSH Q4H PRN PRN Reason: Hypertension Hydromorphone HCl (Dilaudid [employer] Research Assistant 15 Mg In Ns 30 Ml) 0 mg IV ASDIRECTED PRN; Protocol PRN Reason: [employer]ING IN[employer] 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 Last Admin: 09/05/18 16:37 Dose: 15 mg Admin: 09/03/18 15:28 Dose: 15 mg Hydroxyzine HCl (Vistaril) 50 mg IM Q4H PRN PRN Reason: Pain Meropenem 500 mg/ Sodium (Chloride) 50 mls @ 100 mls/hr IV Q8H [facility] Last Admin: 09/08/18 05:06 Dose: 100 mls/hr Admin: 09/07/18 21:47 Dose: 100 mls/hr Admin: 09/07/18 14:17 Dose: 100 mls/hr Admin: 09/07/18 05:34 Dose: 100 mls/hr Admin: 09/06/18 21:37 Dose: 100 mls/hr Admin: 09/06/18 13:42 Dose: 100 mls/hr Admin: 09/06/18 05:30 Dose: 100 mls/hr Admin: 09/05/18 21:31 Dose: 100 mls/hr Admin: 09/05/18 14:59 Dose: 100 mls/hr Admin: 09/05/18 05:17 Dose: 100 mls/hr Admin: 09/04/18 21:09 Dose: 100 mls/hr Admin: 09/04/18 16:31 Dose: 100 mls/hr Admin: 09/04/18 05:23 Dose: 100 mls/hr Admin: 09/03/18 22:50 Dose: 100 mls/hr Heparin Sodium (Porcine) 5,000 (units/ Sodium Chloride) 501 mls @ 5 mls/hr IV ASDIRECTED [facility] Last Admin: 09/06/18 08:23 Dose: 5 mls/hr Infusion: 09/06/18 08:23 Dose: 5 mls/hr Admin: 09/04/18 17:08 Dose: 5 mls/hr Multivitamins/Minerals 10 ml/Chromium/Copper/Manganese/Seleni/Zn 1 ml/ Amino Ac/ Electrol/Dextrose/Calcium 2,011 mls @ 82 mls/hr IV .BY DURATION [facility] Stop: 09/08/18 13:20 Last Admin: 09/07/18 15:09 Dose: 82 mls/hr Infusion: 09/07/18 14:51 Dose: 82 mls/hr Admin: 09/06/18 14:19 Dose: 82 mls/hr Infusion: 09/06/18 14:04 Dose: 82 mls/hr Admin: 09/05/18 13:32 Dose: 82 mls/hr Amino Ac/Electrol/Dextrose/Calcium (Clinimix E 5/15) 2,000 mls @ 82 mls/hr IV .BY DURATION NAHED Stop: 09/08/18 13:20 Heparin Sodium (Porcine) 5,000 (units/ Sodium Chloride) 501 mls @ 5 mls/hr IV ASDIRECTED NAHED Last Admin: 09/06/18 08:24 Dose: 5 mls/hr Propofol (Diprivan 100 Ml) 100 mls @ 1.361 mls/hr IV TITRATE NAHED; Protocol Last Titration: 09/08/18 11:08 Dose: 35 mcg/kg/min, 9.525 mls/hr Titration: 09/08/18 11:05 Dose: 15 mcg/kg/min, 4.082 mls/hr Admin: 09/08/18 07:47 Dose: 35 mcg/kg/min, 9.525 mls/hr Titration: 09/08/18 07:47 Dose: 35 mcg/kg/min, 9.525 mls/hr Admin: 09/08/18 03:23 Dose: 35 mcg/kg/min, 9.525 mls/hr Titration: 09/08/18 03:23 Dose: 35 mcg/kg/min, 9.525 mls/hr Admin: 09/07/18 18:34 Dose: 35 mcg/kg/min, 9.525 mls/hr Titration: 09/07/18 18:34 Dose: 25 mcg/kg/min, 6.804 mls/hr Titration: 09/07/18 18:00 Dose: 25 mcg/kg/min, 6.804 mls/hr Titration: 09/07/18 17:15 Dose: 0 mcg/kg/min, 0 mls/hr Admin: 09/07/18 10:06 Dose: 35 mcg/kg/min, 9.525 mls/hr Titration: 09/07/18 10:06 Dose: 35 mcg/kg/min, 9.525 mls/hr Titration: 09/07/18 06:01 Dose: 35 mcg/kg/min, 9.525 mls/hr Titration: 09/07/18 04:43 Dose: 30 mcg/kg/min, 8.165 mls/hr Titration: 09/07/18 04:30 Dose: 35 mcg/kg/min, 9.525 mls/hr Titration: 09/07/18 03:14 Dose: 40 mcg/kg/min, 10.886 mls/hr Admin: 09/07/18 01:13 Dose: 35 mcg/kg/min, 9.525 mls/hr Titration: 09/07/18 01:13 Dose: 35 mcg/kg/min, 9.525 mls/hr Titration: 09/07/18 01:09 Dose: 35 mcg/kg/min, 9.525 mls/hr Titration: 09/06/18 22:02 Dose: 30 mcg/kg/min, 8.165 mls/hr Titration: 09/06/18 21:05 Dose: 35 mcg/kg/min, 9.525 mls/hr Titration: 09/06/18 20:11 Dose: 30 mcg/kg/min, 8.165 mls/hr Titration: 09/06/18 20:02 Dose: 25 mcg/kg/min, 6.804 mls/hr Titration: 09/06/18 17:52 Dose: 20 mcg/kg/min, 5.443 mls/hr Titration: 09/06/18 13:43 Dose: 15 mcg/kg/min, 4.082 mls/hr Titration: 09/06/18 13:32 Dose: 10 mcg/kg/min, 2.722 mls/hr Titration: 09/06/18 12:04 Dose: 7 mcg/kg/min, 1.905 mls/hr Admin: 09/06/18 09:48 Dose: 5 mcg/kg/min, 1.361 mls/hr Albumin Human (Albumin 25%) 25 gm in 100 mls @ 25 mls/hr IV DAILY NAHED Stop: 09/09/18 12:59 Last Admin: 09/08/18 09:31 Dose: 25 mls/hr Infusion: 09/07/18 15:03 Dose: 25 mls/hr Admin: 09/07/18 11:03 Dose: 25 mls/hr Albumin Human (Albumin 25%) 25 gm in 100 mls @ 25 mls/hr IV Q24H [facility] Stop: 09/09/18 17:59 Last Admin: 09/07/18 14:30 Dose: 25 mls/hr Sodium Chloride (Normal Saline) 1,000 mls @ 0 mls/hr IV ASDIRECTED [facility] Last Admin: 09/08/18 11:20 Dose: 12.5 mls/hr Aztreonam 1 gm/ Sodium (Chloride) 50 mls @ 100 mls/hr IV Q8H [facility] Last Admin: 09/08/18 09:41 Dose: 100 mls/hr Infusion: 09/08/18 01:33 Dose: 100 mls/hr Admin: 09/08/18 01:03 Dose: 100 mls/hr Infusion: 09/07/18 17:33 Dose: 100 mls/hr Admin: 09/07/18 17:03 Dose: 100 mls/hr Vancomycin HCl 1 gm/ Sodium (Chloride) 250 mls @ 167 mls/hr IV Q18H [facility] Last Admin: 09/08/18 06:03 Dose: 167 mls/hr Admin: 09/07/18 13:35 Dose: 167 mls/hr Potassium Acetate 40 meq/ (Sodium Chloride) 120 mls @ 30 mls/hr IV ONETIME ONE Stop: 09/08/18 13:59 Last Admin: 09/08/18 09:44 Dose: 30 mls/hr Multivitamins/Minerals 10 ml/Chromium/Copper/Manganese/Seleni/Zn 1 ml/ Amino Ac/ Electrol/Dextrose/Calcium 1,011 mls @ 62 mls/hr IV .BY DURATION [facility] Amino Ac/Electrol/Dextrose/Calcium (Clinimix E 5/20) 1,000 mls @ 62 mls/hr IV .BY DURATION [facility] Sodium Chloride (Normal Saline) 100 mls @ 3 mls/sec IV ASDIRECTED [facility] Stop: 09/08/18 15:00 Iopamidol (Isovue-300 (61%)) 100 ml IV . DIRECTED PRN PRN Reason: RADIOLOGY EXAM Stop: 09/09/18 11:03 Lorazepam (Ativan) 0.5 mg IVPUSH Q3H PRN PRN Reason: AGITATION Last Admin: 09/05/18 03:50 Dose: 0.25 mg Admin: 09/04/18 23:39 Dose: 0.25 mg Admin: 09/04/18 20:15 Dose: 0.25 mg Admin: 09/04/18 16:30 Dose: 0.5 mg Naloxone HCl (Narcan) 0.1 mg IV ASDIRECTED PRN PRN Reason: decreased respiratory rate Pantoprazole Sodium (Protonix Iv) 40 mg IV Q24H NAHED Last Admin: 09/07/18 21:47 Dose: 40 mg Admin: 09/06/18 21:36 Dose: 40 mg Admin: 09/05/18 21:31 Dose: 40 mg Admin: 09/04/18 21:09 Dose: 40 mg Admin: 09/03/18 22:50 Dose: 40 mg - Assessment Assessment (Free Text/Narrative):: 1. 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 Exploratory laparotomy with a. sigmoid colon resection with end colotomy plus Rosa procedure b. drainage of pericolonic abscess plus diffuse peritoneal cavity washout c. small bowel resection Date of procedure: 09/03/2018, Surgeon Christiano Estrada MD 3.Indication of central venous access 4. Diffuse feculent perforation with second look laparotomy showing: a. pelvic right subphrenic with fluid collection b. segment small bowel with increasing necrosis adjacent mesentery 5. Insertion Left subclavian triple-lumen catheter 6. Second look laparotomy with: a. drainage peritoneal inflammatory fluid collection b. drainage right subphrenic inflammatory fluid collection d. plus small bowel resection 7. Date of procedure: 09/04/2018, Surgeon, Christiano Estrada MD 8. Hypoalbuminemia 9. Ventilator dependence - Plan Plan (Free Text/Narrative):: 1. Type and cross- 2 unites packed red blood cells 2. Administer Lasix 20 mg IV push at 7 AM and 7 PM to facilitate diuresis 3. Decrease TPN to 62 cc/hr 4. Administer 40 milliequivalents of potassium acetate IVF 5. CBC, CMP, Phosphorus, BNP and ABG in the AM 6. Recheck in AM or as needed 7. Daily assessment for ventilator weaning trial; maintain sedation for avoidance of agitation secondary to ventilation/ET tube
--- NOTE | 2018-09-08 14:09 | CRLCT ---
INDICATION: Status post exploratory laparotomy for colonic perforation; increasing white blood cell count; further assessment. COMPARISON: CT abdomen and pelvis September 03, 2018. TECHNIQUE: CT abdomen and pelvis with intravenous contrast; coronal and sagittal reformats. FINDINGS: Bilateral pleural effusion with compression atelectasis both lower lobes more on the left. Normal size cardiac silhouette without any evidence of pericardial effusion. Patchy area of consolidation right middle lobe and left lingula; relatively new. No focal hepatic or splenic pathology. No pancreatic pathology. Gallbladder is distended without any obvious de la torre cholecystic fluid collections or inflammatory changes. No adrenal pathology. No kidney stones or obstructive uropathy. No retroperitoneal lymphadenopathy. Anasarca. 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 Surgical drains identified in the pelvis. No discrete abnormal intra-abdominal fluid collections are identified. No pneumoperitoneum. total hip arthroplasty on the left. Impression : 1. 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 2. Postop changes abdomen and pelvis with surgical drains in the pelvis. 3. No discrete intra-abdominal or pelvic abscess. 4. Anasarca. 5. Distended gallbladder without any pericholecystic fluid collections. 6. Small amount of abdominal ascites. 7. Total hip arthroplasty on the left. 8. Bilateral pleural effusion with compression atelectasis both lower lobes. 9. Infiltrates right middle lobe and left lingula. Please note that all CT scans at this facility use dose modulation, iterative reconstruction, and/or weight-based dosing when appropriate to reduce radiation dose to as low as reasonably achievable. Dictated by Lorelei Dominguez MD @ Sep 08 2018 2:00PM Signed by Dr. Lorelei Dominguez @ Sep 08 2018 2:07PM
[2018-09-08] MEDS ORDERED: Gentamicin 40 MG/ML 2 ML Vial IV SCH (14:30)
[2018-09-08] MEDS: Azithromycin 500 MG in Sodium Chloride 0.9% 250 ML IV SCH (15:06)
[2018-09-08] MEDS: 1: AA 5%/Calcium/D20W/Lytes 1,000 ML with MVI, Adult with Vitamin K 10 ML, Chromium/Copp IV SCH ×3 (15:49)
[2018-09-08] MEDS ORDERED: GENTAMICIN IV ONE (16:00)
[2018-09-08] MEDS ORDERED: SODIUM CHLORIDE 0.9% IV ONE (16:00)
[2018-09-08] MEDS: hydrALAZINE 20 MG/ML SDV IVPUSH PRN (21:26)
[2018-09-08] MEDS: Pantoprazole 40 MG Vial IV SCH (21:33)
[2018-09-08] MEDS ORDERED: Metoprolol Tartrate 5 MG/5 ML SDV ONE (21:52)
--- NOTE | 2018-09-09 03:55 | CRLCR ---
Indication: Intubation Technique: Chest 1 view Comparison: September 08, 2018 Findings/Impression: Endotracheal tube tip terminates 4.7 cm above the level of the pham. A left subclavian central venous catheter tip courses along the left internal jugular vein. This needs to be adjusted. There is no pneumothorax. Patchy bilateral lung infiltrates are unchanged. Likely small bilateral pleural effusions, stable. A gastric drainage tube has been removed. These findings were discussed with Officer at 3:52 a.m. on September 09, 2018. Dictated by Suzanne Melendez MD @ Sep 09 2018 3:47AM (Electronically Signed)
[2018-09-09] MEDS: Metoprolol Tartrate 5 MG/5 ML SDV IVPUSH SCH ×4 (04:16→21:04)
[2018-09-09] MEDS: Meropenem 500 MG in Sodium Chloride 0.9% 50 ML IV SCH ×3 (05:10→21:10)
[2018-09-09] MEDS: HYDROmorphone/Normal Saline 15 MG/30 ML PCA IV PRN (05:52)
[2018-09-09] MEDS ORDERED: Furosemide 20 MG/2 ML VIAL IVPUSH ONE ×3 (07:00→20:00)
[2018-09-09] MEDS: 1: AA 5%/Calcium/D20W/Lytes 1,000 ML with MVI, Adult with Vitamin K 10 ML, Chromium/Copp IV SCH ×6 (08:13→22:36)
--- NOTE | 2018-09-09 08:56 | PCM.SURGPN ---
- General Info Date of Service: 09/09/18 POD#: 6 - Review of Systems Systems Review Comment:: Tina Muniz is currently on postoperative day #6 from the original exploratory laparotomy surgery. She continues to be on a mechanical ventilator. BP continues to be around 181/84. REMY drain 1 produced 90 mL, REMY drain 2 produced 70 mL. Central venous pressures are around 18-19. She is sedated and not able to provide symptoms or review of systems. Total intake has been 4390 mL, total output was 3800 mL, total intake through IV was 4390 mL. Urine output through Rubin catheter is 3405 mL. Nasogastric tube produced 175 mL. - Patient Data Vitals - Most Recent: Last Vital Signs Temp 36.0 C 09/09/18 07:00 Pulse 133 H 09/09/18 08:00 Resp 22 H 09/09/18 08:00 BP 170/88 H 09/09/18 08:00 Pulse Ox 93 L 09/09/18 08:00 Weight - Most Recent: 45.359 kg I&O - Last 24 Hours: Intake & Output 09/08/18 09/09/18 09/09/18 22:59 06:59 14:59 Intake Total 2625 1345 100 Output Total 1350 1195 295 Balance 1275 150 -195 Lab Results Last 24 Hrs: Laboratory Results - last 24 hr 09/05/18 09/09/18 09/09/18 Range/Units 07:04 03:00 04:00 WBC 22.0 H (4.5-11.0) K/uL RBC 2.57 L (3.30-5.50) M/uL Hgb 8.5 L (12.0-15.0) g/dL Hct 25.5 L (36.0-48.0) % MCV 99 H (80-98) fL MCH 33 H (27-31) pg MCHC 33 (32-36) % Plt Count 268 (150-400) K/uL Puncture Site ABG pH (7.350-7.450) ABG pCO2 (35.0-42.0) mmHg ABG pO2 (75.0-100.0) mmHg ABG HCO3 (22.0-26.0) mmol/L ABG Total CO2 (21.0-25.0) mmol/L ABG O2 Saturation (95.0-98.0) % ABG O2 Content (15.0-23.0) %vol ABG Base Excess mm/L ABG Hemoglobin (12.0-16.0) g/dL ABG Oxyhemoglobin % ABG Carboxyhemoglobin (0.0-1.6) % ABG Methemoglobin % Woody Test O2 Delivery Device Sodium (140-148) mmol/L Potassium (3.6-5.2) mmol/L Chloride (100-108) mmol/L Carbon Dioxide (21-32) mmol/L Anion Gap (5.0-14.0) mmol/L BUN (7-18) mg/dL Creatinine (0.6-1.0) mg/dL Est Cr Clr Drug Dosing mL/min Estimated GFR (MDRD) (>60) Glucose (74-106) mg/dL Calcium (8.5-10.1) mg/dL Phosphorus (2.5-4.9) mg/dL Magnesium (1.8-2.4) mg/dL Total Bilirubin (0.2-1.0) mg/dL AST (15-37) U/L ALT (12-78) U/L Alkaline Phosphatase (46-116) U/L NT-Pro-B Natriuret Pep (5-450) pg/mL Total Protein (6.4-8.2) g/dL Albumin (3.4-5.0) g/dL Globulin (2.3-3.5) g/dL Albumin/Globulin Ratio (1.2-2.2) Random Gentamicin 4.4 (0.0-12.0) ug/mL Blood Type Gel Antibody Screen Crossmatch See Detail 09/09/18 09/09/18 09/09/18 Range/Units 04:00 04:00 04:00 WBC (4.5-11.0) K/uL RBC (3.30-5.50) M/uL Hgb (12.0-15.0) g/dL Hct (36.0-48.0) % MCV (80-98) fL MCH (27-31) pg MCHC (32-36) % Plt Count (150-400) K/uL Puncture Site A-line ABG pH 7.512 H (7.350-7.450) ABG pCO2 36.0 (35.0-42.0) mmHg ABG pO2 104.0 H (75.0-100.0) mmHg ABG HCO3 28.7 H (22.0-26.0) mmol/L ABG Total CO2 26.6 H (21.0-25.0) mmol/L ABG O2 Saturation 98.2 H (95.0-98.0) % ABG O2 Content 11.8 L (15.0-23.0) %vol ABG Base Excess 5.6 mm/L ABG Hemoglobin 8.6 L (12.0-16.0) g/dL ABG Oxyhemoglobin 95.5 % ABG Carboxyhemoglobin 2.1 H (0.0-1.6) % ABG Methemoglobin 0.6 % Woody Test Not performed O2 Delivery Device Ventilator Sodium 146 (140-148) mmol/L Potassium 3.9 (3.6-5.2) mmol/L Chloride 109 H (100-108) mmol/L Carbon Dioxide 29 (21-32) mmol/L Anion Gap 11.9 (5.0-14.0) mmol/L BUN 51 H (7-18) mg/dL Creatinine 0.8 (0.6-1.0) mg/dL Est Cr Clr Drug Dosing 41.50 mL/min Estimated GFR (MDRD) > 60 (>60) Glucose 135 H (74-106) mg/dL Calcium 7.9 L (8.5-10.1) mg/dL Phosphorus 3.7 (2.5-4.9) mg/dL Magnesium 2.3 D (1.8-2.4) mg/dL Total Bilirubin 0.6 (0.2-1.0) mg/dL AST 24 (15-37) U/L ALT 24 (12-78) U/L Alkaline Phosphatase 128 H (46-116) U/L NT-Pro-B Natriuret Pep 32092 H (5-450) pg/mL Total Protein 5.3 L (6.4-8.2) g/dL Albumin 2.3 L (3.4-5.0) g/dL Globulin 3.0 (2.3-3.5) g/dL Albumin/Globulin Ratio 0.8 L (1.2-2.2) Random Gentamicin (0.0-12.0) ug/mL Blood Type O POSITIVE Gel Antibody Screen Negative Crossmatch See Detail Joseph Results Last 24 Hrs: Microbiology 09/07/18 05:22 Gram Stain - Final Endotrachial Tube Respiratory Culture - Final Yeast 09/03/18 12:20 Aerobic Blood Culture - Final Blood - Arm, Left NO GROWTH AFTER 5 DAYS Anaerobic Blood Culture - Final Anaerobic Gram Negative Cuco 09/03/18 12:10 Aerobic Blood Culture - Final Blood - Venous NO GROWTH AFTER 5 DAYS Anaerobic Blood Culture - Final Anaerobic Gram Negative Cuco Med Orders - Current: Current Medications Furosemide (Lasix) 20 mg IVPUSH ONETIME ONE Stop: 09/09/18 11:01 Furosemide (Lasix) 20 mg IVPUSH ONETIME ONE Stop: 09/09/18 20:01 Hydralazine HCl (Apresoline) 5 mg IVPUSH Q4H PRN PRN Reason: Hypertension Last Admin: 09/08/18 21:26 Dose: 5 mg Hydromorphone HCl (Dilaudid Typing Teacher 15 Mg In Ns 30 Ml) 0 mg IV ASDIRECTED PRN; Protocol PRN 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 Last Admin: 09/09/18 05:52 Dose: 15 mg Hydroxyzine HCl (Vistaril) 50 mg IM Q4H PRN PRN Reason: Pain Meropenem 500 mg/ Sodium (Chloride) 50 mls @ 100 mls/hr IV Q8H [facility] Last Admin: 09/09/18 05:10 Dose: 100 mls/hr Heparin Sodium (Porcine) 5,000 (units/ Sodium Chloride) 501 mls @ 5 mls/hr IV ASDIRECTED [facility] Last Admin: 09/06/18 08:23 Dose: 5 mls/hr Heparin Sodium (Porcine) 5,000 (units/ Sodium Chloride) 501 mls @ 5 mls/hr IV ASDIRECTED [facility] Last Admin: 09/06/18 08:24 Dose: 5 mls/hr Propofol (Diprivan 100 Ml) 100 mls @ 1.361 mls/hr IV TITRATE [facility]; Protocol Last Admin: 09/09/18 03:14 Dose: 35 mcg/kg/min, 9.525 mls/hr Albumin Human (Albumin 25%) 25 gm in 100 mls @ 25 mls/hr IV DAILY [facility] Stop: 09/09/18 12:59 Last Admin: 09/09/18 08:25 Dose: 25 mls/hr Albumin Human (Albumin 25%) 25 gm in 100 mls @ 25 mls/hr IV Q24H [facility] Stop: 09/09/18 17:59 Last Admin: 09/08/18 14:11 Dose: 25 mls/hr Sodium Chloride (Normal Saline) 1,000 mls @ 0 mls/hr IV ASDIRECTED [facility] Last Admin: 09/08/18 11:20 Dose: 12.5 mls/hr Vancomycin HCl 1 gm/ Sodium (Chloride) 250 mls @ 167 mls/hr IV Q18H [facility] Last Admin: 09/09/18 00:03 Dose: 167 mls/hr Multivitamins/Minerals 10 ml/Chromium/Copper/Manganese/Seleni/Zn 1 ml/ Amino Ac/ Electrol/Dextrose/Calcium 1,011 mls @ 62 mls/hr IV .BY DURATION [facility] Last Admin: 09/08/18 15:49 Dose: 62 mls/hr Amino Ac/Electrol/Dextrose/Calcium (Clinimix E 5/20) 1,000 mls @ 62 mls/hr IV .BY DURATION [facility] Last Admin: 09/09/18 08:13 Dose: 62 mls/hr Azithromycin 500 mg/ Sodium (Chloride) 250 mls @ 250 mls/hr IV Q24H [facility] Last Admin: 09/08/18 15:06 Dose: 250 mls/hr Potassium Phosphate 15 mmole/ (Sodium Chloride) 105 mls @ 55 mls/hr IV Q2H [facility] Stop: 09/09/18 12:55 Gentamicin Sulfate 228 mg/ (Sodium Chloride) 105.7 mls @ 100 mls/hr IV Q36H [facility] Lorazepam (Ativan) 0.5 mg IVPUSH Q3H PRN PRN Reason: AGITATION Last Admin: 09/05/18 03:50 Dose: 0.25 mg Metoprolol Tartrate (Lopressor) 2.5 mg IVPUSH Q6H [facility] Last Admin: 09/09/18 04:16 Dose: 2.5 mg Naloxone HCl (Narcan) 0.1 mg IV ASDIRECTED PRN PRN Reason: decreased respiratory rate Pantoprazole Sodium (Protonix Iv) 40 mg IV Q24H [facility] Last Admin: 09/08/18 21:33 Dose: 40 mg Discontinued Medications Acetaminophen (Tylenol) 650 mg PO Q4H PRN PRN Reason: Pain (Mild 1-3)/fever Acetaminophen (Tylenol) 650 mg RECTAL Q4H PRN PRN Reason: Mild pain/fever Albuterol (Proventil Neb Soln) 2.5 mg NEB Q4H PRN PRN Reason: Shortness Of Breath/wheezing Albuterol/Ipratropium (Duoneb 3.0-0.5 Mg/3 Ml) 3 ml INH PREPRO ONE Stop: 09/03/18 17:01 Last Admin: 09/03/18 16:25 Dose: 3 ml Aztreonam (Azactam) Confirm Administered Dose 1 gm .ROUTE .STK-MED ONE Stop: 09/03/18 21:44 Last Admin: 09/03/18 22:15 Dose: Not Given Benazepril HCl (Lotensin) 40 mg PO ONETIME ONE Stop: 09/03/18 10:41 Last Admin: 09/03/18 11:00 Dose: 40 mg Bupivacaine HCl (Marcaine 0.5%) Confirm Administered Dose 50 ml .ROUTE .STK-MED ONE Stop: 09/07/18 06:48 Last Admin: 09/07/18 10:53 Dose: 18 ml Ropivacaine 22 ml/Dexamethasone 8 mg/Epinephrine HCl 0.4 mg/ Sodium Chloride 55.6 ml 0 ml NERVRT ASDIRECTED [facility] Ropivacaine 22 ml/Dexamethasone 8 mg/Epinephrine HCl 0.4 mg/ Sodium Chloride 55.6 ml 0 ml NERVRT ASDIRECTED [facility] Last Admin: 09/04/18 14:03 Dose: 80 syringe Ropivacaine 22 ml/Dexamethasone 8 mg/Epinephrine HCl 0.4 mg/ Sodium Chloride 55.6 ml 0 ml NERVRT ASDIRECTED [facility] Last Admin: 09/07/18 11:07 Dose: 80 syringe Dexamethasone (Dexamethasone) Confirm Administered Dose 4 mg .ROUTE .STK-MED ONE Stop: 09/03/18 14:41 Dexamethasone (Dexamethasone) Confirm Administered Dose 4 mg .ROUTE .STK-MED ONE Stop: 09/04/18 09:47 Fentanyl (Sublimaze) 25 mcg IVPUSH ONETIME ONE Stop: 09/03/18 13:57 Last Admin: 09/03/18 14:16 Dose: 25 mcg Fentanyl (Sublimaze) 25 mcg IVPUSH Q2H PRN PRN Reason: Pain (severe 7-10) Fentanyl (Sublimaze) Confirm Administered Dose 250 mcg .ROUTE .STK-MED ONE Stop: 09/03/18 14:41 Fentanyl (Sublimaze) Confirm Administered Dose 250 mcg .ROUTE .[facility] ONE Stop: 09/04/18 09:46 Fentanyl (Sublimaze) Confirm Administered Dose 250 mcg .ROUTE .[facility] ONE Stop: 09/04/18 13:57 Furosemide (Lasix) 20 mg IVPUSH ONETIME ONE Stop: 09/04/18 15:10 Last Admin: 09/04/18 15:18 Dose: 20 mg Furosemide (Lasix) 40 mg IV ONETIME ONE Stop: 09/06/18 08:16 Last Admin: 09/06/18 08:26 Dose: 40 mg Furosemide (Lasix) 20 mg IV Q12H [facility] Stop: 09/07/18 20:01 Last Admin: 09/07/18 20:10 Dose: 20 mg Furosemide (Lasix) 20 mg IVPUSH Q12H [facility] Stop: 09/08/18 19:01 Last Admin: 09/08/18 19:50 Dose: 20 mg Furosemide (Lasix) 20 mg IVPUSH ONETIME ONE Stop: 09/09/18 07:01 Last Admin: 09/09/18 08:14 Dose: 20 mg Gentamicin Sulfate (Gentamicin) 1 mg IV .Pharmacy to Dose [facility] Stop: 09/08/18 14:31 Glycopyrrolate (Robinul) Confirm Administered Dose 1 mg .ROUTE .[facility] ONE Stop: 09/03/18 14:41 Glycopyrrolate (Robinul) Confirm Administered Dose 1 mg .ROUTE .[facility] ONE Stop: 09/04/18 09:47 Heparin Sodium (Porcine) (Heparin Sodium) Confirm Administered Dose 5,000 units .ROUTE .STK-MED ONE Stop: 09/03/18 18:32 Heparin Sodium (Porcine) (Heparin Lock Flush 100 Units/Ml) Confirm Administered Dose 500 units .ROUTE .STK-MED ONE Stop: 09/04/18 13:14 Hydromorphone HCl (Dilaudid) 0.5 mg IVPUSH ONETIME ONE Stop: 09/03/18 10:48 Last Admin: 09/03/18 11:00 Dose: 0.5 mg Hydromorphone HCl (Dilaudid) 0.5 mg IVPUSH ONETIME ONE Stop: 09/03/18 11:22 Last Admin: 09/03/18 11:25 Dose: 0.5 mg Hydromorphone HCl (Dilaudid) 0.5 mg IVPUSH ONETIME ONE Stop: 09/03/18 12:10 Last Admin: 09/03/18 12:12 Dose: 0.5 mg Hydromorphone HCl (Dilaudid) 0.5 mg IVPUSH ONETIME ONE Stop: 09/03/18 12:40 Last Admin: 09/03/18 12:44 Dose: 0.5 mg Hydromorphone HCl (Dilaudid) 1 mg IVPUSH ONETIME ONE Stop: 09/03/18 12:57 Last Admin: 09/03/18 13:00 Dose: 1 mg Sodium Chloride (Normal Saline) 1,000 mls @ 1,000 mls/hr IV .BOLUS ONE Stop: 09/03/18 12:17 Last Admin: 09/03/18 11:25 Dose: 1,000 mls/hr Piperacillin/Tazobactam/ (Dextrose 4.5 gm/ Premix) 100 mls @ 200 mls/hr IV ONETIME ONE Stop: 09/03/18 13:29 Last Admin: 09/03/18 13:04 Dose: 200 mls/hr Sodium Chloride (Normal Saline) 1,000 mls @ 500 mls/hr IV ASDIRECTED [facility] Last Admin: 09/03/18 13:00 Dose: 500 mls/hr Lactated Ringer's (Ringers, Lactated) 1,000 mls @ 125 mls/hr IV ASDIRECTED [facility] Last Admin: 09/03/18 16:07 Dose: 125 mls/hr Aztreonam 2 gm/ Sodium (Chloride) 100 mls @ 200 mls/hr IV NOW ONE Stop: 09/03/18 15:29 Last Admin: 09/03/18 14:56 Dose: 200 mls/hr Meropenem 500 mg/ Sodium (Chloride) 50 mls @ 100 mls/hr IV ONCALL ONE Stop: 09/03/18 17:29 Last Admin: 09/03/18 16:25 Dose: 100 mls/hr Piperacillin/Tazobactam/ (Dextrose 3.375 gm/ Premix) 50 mls @ 100 mls/hr IV Q6H [facility] Last Admin: 09/03/18 22:15 Dose: Not Given Sodium Chloride (Normal Saline) Confirm Administered Dose 500 mls @ as directed .ROUTE .[facility] ONE Stop: 09/03/18 18:33 Aztreonam/Dextrose 1 gm/ (Premix) 50 mls @ 100 mls/hr IV Q8HR NAHED Sodium Chloride (Normal Saline) Confirm Administered Dose 50 mls @ as directed .ROUTE .[facility] ONE Stop: 09/03/18 22:01 Last Admin: 09/03/18 22:21 Dose: Not Given Aztreonam/Dextrose 1 gm/ (Premix) 50 mls @ 100 mls/hr IV Q8H NAHED Last Admin: 09/04/18 07:30 Dose: Not Given Dextrose/Lactated Ringer's (Dextrose 5%-Lactated Ringers) 1,000 mls @ 100 mls/ hr IV ASDIRECTED PRN PRN Reason: Hypotension Dextrose/Lactated Ringer's (Dextrose 5%-Lactated Ringers) 1,000 mls @ 100 mls/ hr IV ASDIRECTED NAHED Last Admin: 09/05/18 02:13 Dose: 100 mls/hr Lactated Ringer's (Ringers, Lactated) 1,000 mls @ 100 mls/hr IV ASDIRECTED NAHED Last Admin: 09/04/18 04:20 Dose: 100 mls/hr Lactated Ringer's (Ringers, Lactated) 500 mls @ 500 mls/hr IV .BOLUS NAHED Last Admin: 09/04/18 01:10 Dose: 500 mls/hr Lactated Ringer's (Ringers, Lactated) 500 mls @ 500 mls/hr IV .BOLUS NAHED Last Admin: 09/04/18 03:13 Dose: 500 mls/hr Propofol (Diprivan 100 Ml) 100 mls @ 1.361 mls/hr IV TITRATE NAHED; Protocol Last Titration: 09/04/18 07:52 Dose: 14 mcg/kg/min, 3.81 mls/hr Propofol (Diprivan 100 Ml) Confirm Administered Dose 100 mls @ as directed .ROUTE .[facility] ONE Stop: 09/04/18 03:45 Last Admin: 09/04/18 03:59 Dose: Not Given Lactated Ringer's (Ringers, Lactated) 500 mls @ 999 mls/hr IV .[facility] Last Admin: 09/04/18 06:10 Dose: 999 mls/hr Aztreonam/Dextrose 1 gm/ (Premix) 50 mls @ 100 mls/hr IV Q8H [facility] Last Admin: 09/07/18 08:15 Dose: 100 mls/hr Lactated Ringer's (Ringers, Lactated) 500 mls @ 500 mls/hr IV ASDIRECTED [facility] Last Admin: 09/04/18 21:04 Dose: 500 mls/hr Lactated Ringer's (Ringers, Lactated) Confirm Administered Dose 1,000 mls @ as directed .ROUTE .[facility] ONE Stop: 09/04/18 13:11 Lactated Ringer's (Ringers, Lactated) Confirm Administered Dose 1,000 mls @ as directed .ROUTE .[facility] ONE Stop: 09/04/18 13:11 Sodium Chloride (Normal Saline) Confirm Administered Dose 10 mls @ as directed .ROUTE .[facility] ONE Stop: 09/04/18 13:15 Magnesium Sulfate 2 gm/ Premix 50 mls @ 25 mls/hr IV Q6H [facility] Stop: 09/06/18 11:59 Last Admin: 09/06/18 10:17 Dose: 25 mls/hr Lactated Ringer's (Ringers, Lactated) 500 mls @ 500 mls/hr IV ASDIRECTED [facility] Stop: 09/04/18 17:46 Lactated Ringer's (Ringers, Lactated) 500 mls @ 500 mls/hr IV ONETIME ONE Stop: 09/04/18 19:29 Last Admin: 09/04/18 18:37 Dose: 500 mls/hr Lactated Ringer's (Ringers, Lactated) 500 mls @ 1,000 mls/hr IV ONETIME ONE Stop: 09/04/18 23:30 Last Admin: 09/04/18 23:18 Dose: 1,000 mls/hr Lactated Ringer's (Ringers, Lactated) 500 mls @ 1,000 mls/hr IV ONETIME ONE Stop: 09/05/18 01:44 Last Admin: 09/05/18 01:15 Dose: 1,000 mls/hr Lactated Ringer's (Ringers, Lactated) 1,000 mls @ 150 mls/hr IV ASDIRECTED [facility] Last Admin: 09/05/18 02:13 Dose: 150 mls/hr Lactated Ringer's (Ringers, Lactated) 500 mls @ 1,000 mls/hr IV ONETIME ONE Stop: 09/05/18 03:38 Last Admin: 09/05/18 03:15 Dose: 1,000 mls/hr Multivitamins/Minerals 10 ml/Chromium/Copper/Manganese/Seleni/Zn 1 ml/ Amino Ac/ Electrol/Dextrose/Calcium 2,011 mls @ 82 mls/hr IV .BY DURATION [facility] Stop: 09/05/18 13:25 Last Admin: 09/05/18 13:32 Dose: Not Given Amino Ac/Electrol/Dextrose/Calcium (Clinimix E 5/15) 2,000 mls @ 82 mls/hr IV .BY DURATION [facility] Stop: 09/05/18 13:25 Vancomycin HCl 1 gm/ Sodium (Chloride) 250 mls @ 167 mls/hr IV Q24H [facility] Last Admin: 09/05/18 12:34 Dose: 167 mls/hr Sodium Chloride (Normal Saline) 1,000 mls @ 50 mls/hr IV ASDIRECTED [facility] Last Admin: 09/05/18 12:51 Dose: 50 mls/hr Multivitamins/Minerals 10 ml/Chromium/Copper/Manganese/Seleni/Zn 1 ml/ Amino Ac/ Electrol/Dextrose/Calcium 2,011 mls @ 82 mls/hr IV .BY DURATION [facility] Stop: 09/08/18 13:20 Last Admin: 09/07/18 15:09 Dose: 82 mls/hr Amino Ac/Electrol/Dextrose/Calcium (Clinimix E 5/15) 2,000 mls @ 82 mls/hr IV .BY DURATION [facility] Stop: 09/08/18 13:20 Vancomycin HCl 1 gm/ Sodium (Chloride) 250 mls @ 167 mls/hr IV Q24H [facility] Last Admin: 09/06/18 12:00 Dose: 167 mls/hr Sodium Chloride (Normal Saline) 500 mls @ 500 mls/hr IV ASDIRECTED ONE Stop: 09/05/18 16:29 Last Admin: 09/05/18 15:40 Dose: 500 mls/hr Sodium Chloride (Normal Saline) 1,000 mls @ 100 mls/hr IV ASDIRECTED [facility] Last Admin: 09/07/18 07:31 Dose: 100 mls/hr Potassium Phosphate 20 mmole/ (Sodium Chloride) 106.6667 mls @ 35 mls/hr IV Q3H [facility] Stop: 09/07/18 17:29 Last Admin: 09/07/18 15:01 Dose: 35 mls/hr Aztreonam 1 gm/ Sodium (Chloride) 50 mls @ 100 mls/hr IV Q8H [facility] Last Admin: 09/08/18 09:41 Dose: 100 mls/hr Sodium Chloride (Normal Saline) 1,000 mls @ 999 mls/hr IV .BOLUS ONE Stop: 09/07/18 17:39 Last Admin: 09/07/18 17:26 Dose: 999 mls/hr Potassium Acetate 40 meq/ (Sodium Chloride) 120 mls @ 30 mls/hr IV ONETIME ONE Stop: 09/08/18 13:59 Last Admin: 09/08/18 09:44 Dose: 30 mls/hr Sodium Chloride (Normal Saline) 100 mls @ 3 mls/sec IV ASDIRECTED [facility] Stop: 09/08/18 15:00 Last Admin: 09/08/18 14:17 Dose: 3 mls/sec Gentamicin Sulfate 228 mg/ (Sodium Chloride) 105.7 mls @ 100 mls/hr IV ONETIME ONE Stop: 09/08/18 17:03 Last Admin: 09/08/18 16:19 Dose: 100 mls/hr Iopamidol (Isovue-300 (61%)) 100 ml IV . DIRECTED PRN PRN Reason: RADIOLOGY EXAM Stop: 09/09/18 11:03 Last Admin: 09/08/18 14:16 Dose: 100 ml Lidocaine/Epinephrine (Xylocaine 1% With Epinephrine 1:100,000) Confirm Administered Dose 50 ml .ROUTE .STK-MED ONE Stop: 09/07/18 06:48 Last Admin: 09/07/18 10:54 Dose: 18 ml Lorazepam (Ativan) 0.5 mg IVPUSH Q4H PRN PRN Reason: Nausea/Vomiting Meropenem (Merrem) Confirm Administered Dose 1,000 mg .ROUTE .STK-MED ONE Stop: 09/03/18 17:54 Last Admin: 09/03/18 18:32 Dose: 3,500 mg Meropenem (Merrem) Confirm Administered Dose 1,000 mg .ROUTE .STK-MED ONE Stop: 09/03/18 18:04 Meropenem (Merrem) Confirm Administered Dose 2,000 mg .ROUTE .STK-MED ONE Stop: 09/03/18 18:18 Meropenem (Merrem) Confirm Administered Dose 500 mg .ROUTE .STK-MED ONE Stop: 09/07/18 06:48 Last Admin: 09/07/18 10:53 Dose: 500 mg Metoprolol Tartrate (Lopressor) 25 mg PO ONETIME ONE Stop: 09/03/18 10:41 Last Admin: 09/03/18 11:00 Dose: 25 mg Metoprolol Tartrate (Lopressor) 5 mg IVPUSH Q6H [facility] Last Admin: 09/08/18 09:25 Dose: 5 mg Metoprolol Tartrate (Lopressor) Confirm Administered Dose 5 mg .ROUTE .STK-MED ONE Stop: 09/08/18 21:53 Last Admin: 09/08/18 22:19 Dose: Not Given Neostigmine Methylsulfate (Neostigmine) Confirm Administered Dose 5 mg .ROUTE .STK-MED ONE Stop: 09/03/18 14:41 Neostigmine Methylsulfate (Neostigmine) Confirm Administered Dose 5 mg .ROUTE .STK-MED ONE Stop: 09/04/18 09:47 Ondansetron HCl (Zofran Odt) 4 mg PO Q6H PRN PRN Reason: Nausea able to take PO Ondansetron HCl (Zofran) 4 mg IV Q6H PRN PRN Reason: Nausea/Vomiting Ondansetron HCl (Zofran) Confirm Administered Dose 4 mg .ROUTE .STK-MED ONE Stop: 09/03/18 14:41 Ondansetron HCl (Zofran) Confirm Administered Dose 4 mg .ROUTE .STK-MED ONE Stop: 09/04/18 09:47 Pantoprazole Sodium (Protonix Iv) 40 mg IV Q12H [facility] Last Admin: 09/03/18 16:07 Dose: 40 mg Piperacillin Sod/Tazobactam Sod (Zosyn) 10.125 gm .XX ASDIRECTED [facility] Stop: 09/04/18 15:00 Last Admin: 09/04/18 14:04 Dose: 10.125 gm Propofol (Diprivan 20 Ml) Confirm Administered Dose 200 mg .ROUTE .STK-MED ONE Stop: 09/03/18 14:41 Propofol (Diprivan 20 Ml) Confirm Administered Dose 200 mg .ROUTE .STK-MED ONE Stop: 09/04/18 09:47 Propofol (Diprivan 20 Ml) Confirm Administered Dose 200 mg .ROUTE .STK-MED ONE Stop: 09/06/18 07:01 Rocuronium [place] (Zemuron) Confirm Administered Dose 50 mg .ROUTE .STK-MED ONE Stop: 09/03/18 14:41 Rocuronium [place] (Zemuron) Confirm Administered Dose 50 mg .ROUTE .STK-MED ONE Stop: 09/04/18 09:47 Succinylcholine Chloride (Quelicin) Confirm Administered Dose 200 mg .ROUTE .STK -MED ONE Stop: 09/03/18 14:41 Succinylcholine Chloride (Quelicin) Confirm Administered Dose 200 mg .ROUTE .STK -MED ONE Stop: 09/04/18 09:47 Succinylcholine Chloride (Quelicin) Confirm Administered Dose 200 mg .ROUTE .STK -MED ONE Stop: 09/06/18 07:01 - Exam Wound/Incisions: Dressing Dry and Intact, Other (Moderate shadowing of aquacel bandage) Quality Assessment: Central Line/PICC, Urine Catheter General: Sedated Neck: Supple Lungs: Normal Respiratory Effort, Other (mild crackles in lung keyes) Cardiovascular: Regular Rate, Regular Rhythm, No Murmurs GI/Abdominal Exam: No Distention Extremities: Other (mild bilateral lower leg edema) Skin: Warm - Problem List Review Problem List Initiated/Reviewed/Updated: Yes - My Orders Last 24 Hours: Active Orders 24 hr Category Date Time Status Communication Order [RC] Q4H Care 09/09/18 06:33 Active Dietary Supplements [RC] BIDMEALS Care 09/08/18 14:24 Active Chest 1V Frontal [CR] DAILY Exams 09/10/18 04:00 Ordered Chest 1V Frontal [CR] DAILY Exams 09/10/18 04:00 Stop Req Chest 1V Frontal [CR] DAILY Exams 09/11/18 04:00 Ordered Chest 1V Frontal [CR] DAILY Exams 09/11/18 04:00 Stop Req Chest 1V Frontal [CR] DAILY Exams 09/12/18 04:00 Ordered Chest 1V Frontal [CR] DAILY Exams 09/12/18 04:00 Stop Req Chest 1V Frontal [CR] DAILY Exams 09/13/18 04:00 Ordered Chest 1V Frontal [CR] DAILY Exams 09/13/18 04:00 Stop Req Chest 1V Frontal [CR] DAILY Exams 09/14/18 04:00 Ordered Chest 1V Frontal [CR] DAILY Exams 09/14/18 04:00 Stop Req ABG [BLOOD GAS ARTERIAL] [BG] Routine Lab 09/10/18 04:00 Ordered CBC W/O DIFF,HEMOGRAM [HEME] Routine Lab 09/10/18 04:00 Ordered COMPREHENSIVE METABOLIC PN,CMP [CHEM] Routine Lab 09/10/18 04:00 Ordered MAGNESIUM [CHEM] Routine Lab 09/10/18 04:00 Ordered PHOSPHORUS [CHEM] Routine Lab 09/10/18 04:00 Ordered RED BLOOD CELLS LP [BBK] Routine Lab 09/09/18 04:00 Results TYPE AND SCREEN [BBK] Routine Lab 09/09/18 04:00 Results ALT Order Med 09/08/18 13:30 Active Azithromycin [Zithromax] 500 mg Med 09/08/18 15:00 Active Sodium Chloride 0.9% [Normal Saline] 250 ml IV Q24H Furosemide [Lasix] Med 09/09/18 11:00 Once 20 mg IVPUSH ONETIME ONE Furosemide [Lasix] Med 09/09/18 20:00 Once 20 mg IVPUSH ONETIME ONE Gentamicin 228 mg Med 09/10/18 04:00 Active Sodium Chloride 0.9% [Normal Saline] 100 ml IV Q36H Metoprolol Tartrate [Lopressor] Med 09/08/18 22:00 Active 2.5 mg IVPUSH Q6H Potassium Phosphates 15 mmole Med 09/09/18 09:00 Active Sodium Chloride 0.9% [Normal Saline] 100 ml IV Q2H hydrALAZINE [Apresoline] Med 09/08/18 10:53 Active 5 mg IVPUSH Q4H PRN Transfuse Red Blood Cells [COMM] Routine Oth 09/09/18 06:29 Ordered Medication Orders Furosemide (Lasix) 20 mg IVPUSH ONETIME ONE Stop: 09/09/18 11:01 Furosemide (Lasix) 20 mg IVPUSH ONETIME ONE Stop: 09/09/18 20:01 Hydralazine HCl (Apresoline) 5 mg IVPUSH Q4H PRN PRN Reason: Hypertension Last Admin: 09/08/18 21:26 Dose: 5 mg Hydromorphone HCl (Dilaudid Typing Teacher 15 Mg In Ns 30 Ml) 0 mg IV ASDIRECTED PRN; Protocol PRN 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 Last Admin: 09/09/18 05:52 Dose: 15 mg Admin: 09/05/18 16:37 Dose: 15 mg Admin: 09/03/18 15:28 Dose: 15 mg Hydroxyzine HCl (Vistaril) 50 mg IM Q4H PRN PRN Reason: Pain Meropenem 500 mg/ Sodium (Chloride) 50 mls @ 100 mls/hr IV Q8H [facility] Last Admin: 09/09/18 05:10 Dose: 100 mls/hr Admin: 09/08/18 21:33 Dose: 100 mls/hr Admin: 09/08/18 14:05 Dose: 100 mls/hr Admin: 09/08/18 05:06 Dose: 100 mls/hr Admin: 09/07/18 21:47 Dose: 100 mls/hr Admin: 09/07/18 14:17 Dose: 100 mls/hr Admin: 09/07/18 05:34 Dose: 100 mls/hr Admin: 09/06/18 21:37 Dose: 100 mls/hr Admin: 09/06/18 13:42 Dose: 100 mls/hr Admin: 09/06/18 05:30 Dose: 100 mls/hr Admin: 09/05/18 21:31 Dose: 100 mls/hr Admin: 09/05/18 14:59 Dose: 100 mls/hr Admin: 09/05/18 05:17 Dose: 100 mls/hr Admin: 09/04/18 21:09 Dose: 100 mls/hr Admin: 09/04/18 16:31 Dose: 100 mls/hr Admin: 09/04/18 05:23 Dose: 100 mls/hr Admin: 09/03/18 22:50 Dose: 100 mls/hr Heparin Sodium (Porcine) 5,000 (units/ Sodium Chloride) 501 mls @ 5 mls/hr IV ASDIRECTED [facility] Last Admin: 09/06/18 08:23 Dose: 5 mls/hr Infusion: 09/06/18 08:23 Dose: 5 mls/hr Admin: 09/04/18 17:08 Dose: 5 mls/hr Heparin Sodium (Porcine) 5,000 (units/ Sodium Chloride) 501 mls @ 5 mls/hr IV ASDIRECTED NAHED Last Admin: 09/06/18 08:24 Dose: 5 mls/hr Propofol (Diprivan 100 Ml) 100 mls @ 1.361 mls/hr IV TITRATE NAH[facility]; Protocol Last Admin: 09/09/18 03:14 Dose: 35 mcg/kg/min, 9.525 mls/hr Titration: 09/09/18 03:14 Dose: 35 mcg/kg/min, 9.525 mls/hr Admin: 09/08/18 18:39 Dose: 35 mcg/kg/min, 9.525 mls/hr Titration: 09/08/18 18:23 Dose: 35 mcg/kg/min, 9.525 mls/hr Titration: 09/08/18 11:08 Dose: 35 mcg/kg/min, 9.525 mls/hr Titration: 09/08/18 11:05 Dose: 15 mcg/kg/min, 4.082 mls/hr Admin: 09/08/18 07:47 Dose: 35 mcg/kg/min, 9.525 mls/hr Titration: 09/08/18 07:47 Dose: 35 mcg/kg/min, 9.525 mls/hr Admin: 09/08/18 03:23 Dose: 35 mcg/kg/min, 9.525 mls/hr Titration: 09/08/18 03:23 Dose: 35 mcg/kg/min, 9.525 mls/hr Admin: 09/07/18 18:34 Dose: 35 mcg/kg/min, 9.525 mls/hr Titration: 09/07/18 18:34 Dose: 25 mcg/kg/min, 6.804 mls/hr Titration: 09/07/18 18:00 Dose: 25 mcg/kg/min, 6.804 mls/hr Titration: 09/07/18 17:15 Dose: 0 mcg/kg/min, 0 mls/hr Admin: 09/07/18 10:06 Dose: 35 mcg/kg/min, 9.525 mls/hr Titration: 09/07/18 10:06 Dose: 35 mcg/kg/min, 9.525 mls/hr Titration: 09/07/18 06:01 Dose: 35 mcg/kg/min, 9.525 mls/hr Titration: 09/07/18 04:43 Dose: 30 mcg/kg/min, 8.165 mls/hr Titration: 09/07/18 04:30 Dose: 35 mcg/kg/min, 9.525 mls/hr Titration: 09/07/18 03:14 Dose: 40 mcg/kg/min, 10.886 mls/hr Admin: 09/07/18 01:13 Dose: 35 mcg/kg/min, 9.525 mls/hr Titration: 09/07/18 01:13 Dose: 35 mcg/kg/min, 9.525 mls/hr Titration: 09/07/18 01:09 Dose: 35 mcg/kg/min, 9.525 mls/hr Titration: 09/06/18 22:02 Dose: 30 mcg/kg/min, 8.165 mls/hr Titration: 09/06/18 21:05 Dose: 35 mcg/kg/min, 9.525 mls/hr Titration: 09/06/18 20:11 Dose: 30 mcg/kg/min, 8.165 mls/hr Titration: 09/06/18 20:02 Dose: 25 mcg/kg/min, 6.804 mls/hr Titration: 09/06/18 17:52 Dose: 20 mcg/kg/min, 5.443 mls/hr Titration: 09/06/18 13:43 Dose: 15 mcg/kg/min, 4.082 mls/hr Titration: 09/06/18 13:32 Dose: 10 mcg/kg/min, 2.722 mls/hr Titration: 09/06/18 12:04 Dose: 7 mcg/kg/min, 1.905 mls/hr Admin: 09/06/18 09:48 Dose: 5 mcg/kg/min, 1.361 mls/hr Albumin Human (Albumin 25%) 25 gm in 100 mls @ 25 mls/hr IV DAILY NAHED Stop: 09/09/18 12:59 Last Admin: 09/09/18 08:25 Dose: 25 mls/hr Infusion: 09/08/18 13:31 Dose: 25 mls/hr Admin: 09/08/18 09:31 Dose: 25 mls/hr Infusion: 09/07/18 15:03 Dose: 25 mls/hr Admin: 09/07/18 11:03 Dose: 25 mls/hr Albumin Human (Albumin 25%) 25 gm in 100 mls @ 25 mls/hr IV Q24H [facility] Stop: 09/09/18 17:59 Last Admin: 09/08/18 14:11 Dose: 25 mls/hr Infusion: 09/07/18 18:30 Dose: 25 mls/hr Admin: 09/07/18 14:30 Dose: 25 mls/hr Sodium Chloride (Normal Saline) 1,000 mls @ 0 mls/hr IV ASDIRECTED [facility] Last Admin: 09/08/18 11:20 Dose: 12.5 mls/hr Vancomycin HCl 1 gm/ Sodium (Chloride) 250 mls @ 167 mls/hr IV Q18H [facility] Last Admin: 09/09/18 00:03 Dose: 167 mls/hr Admin: 09/08/18 06:03 Dose: 167 mls/hr Admin: 09/07/18 13:35 Dose: 167 mls/hr Multivitamins/Minerals 10 ml/Chromium/Copper/Manganese/Seleni/Zn 1 ml/ Amino Ac/ Electrol/Dextrose/Calcium 1,011 mls @ 62 mls/hr IV .BY DURATION [facility] Last Admin: 09/08/18 15:49 Dose: 62 mls/hr Amino Ac/Electrol/Dextrose/Calcium (Clinimix E 20) 1,000 mls @ 62 mls/hr IV .BY DURATION [facility] Last Admin: 09/09/18 08:13 Dose: 62 mls/hr Azithromycin 500 mg/ Sodium (Chloride) 250 mls @ 250 mls/hr IV Q24H [facility] Last Admin: 09/08/18 15:06 Dose: 250 mls/hr Potassium Phosphate 15 mmole/ (Sodium Chloride) 105 mls @ 55 mls/hr IV Q2H [facility] Stop: 09/09/18 12:55 Gentamicin Sulfate 228 mg/ (Sodium Chloride) 105.7 mls @ 100 mls/hr IV Q36H [facility] Lorazepam (Ativan) 0.5 mg IVPUSH Q3H PRN PRN Reason: AGITATION Last Admin: 09/05/18 03:50 Dose: 0.25 mg Admin: 09/04/18 23:39 Dose: 0.25 mg Admin: 09/04/18 20:15 Dose: 0.25 mg Admin: 09/04/18 16:30 Dose: 0.5 mg Metoprolol Tartrate (Lopressor) 2.5 mg IVPUSH Q6H NAH[facility] Last Admin: 09/09/18 04:16 Dose: 2.5 mg Admin: 09/08/18 21:55 Dose: 2.5 mg Naloxone HCl (Narcan) 0.1 mg IV ASDIRECTED PRN PRN Reason: decreased respiratory rate Pantoprazole Sodium (Protonix Iv) 40 mg IV Q24H [facility] Last Admin: 09/08/18 21:33 Dose: 40 mg Admin: 09/07/18 21:47 Dose: 40 mg Admin: 09/06/18 21:36 Dose: 40 mg Admin: 09/05/18 21:31 Dose: 40 mg Admin: 09/04/18 21:09 Dose: 40 mg Admin: 09/03/18 22:50 Dose: 40 mg - Assessment Assessment (Free Text/Narrative):: 1. 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 Exploratory laparotomy with a. sigmoid colon resection with end colotomy plus Rosa procedure b. drainage of pericolonic abscess plus diffuse peritoneal cavity washout c. small bowel resection Date of procedure: 09/03/2018, Surgeon Christiano Estrada MD 3.Indication of central venous access 4. Diffuse feculent perforation with second look laparotomy showing: a. pelvic right subphrenic with fluid collection b. segment small bowel with increasing necrosis adjacent mesentery 5. Insertion Left subclavian triple-lumen catheter 6. Second look laparotomy with: a. drainage peritoneal inflammatory fluid collection b. drainage right subphrenic inflammatory fluid collection d. plus small bowel resection 7. Date of procedure: 09/04/2018, Surgeon, Christiano Estrada MD 8. Ventilator dependence - Plan Plan (Free Text/Narrative):: 1. Administer 1 unit of packed red blood cells this AM 2. Administer Lasix 20 mg IV push now, then another dose after transfusion to facilitate diuresis and another at 8 PM. 3. Administer 30 millimoles of potassium phosphate now 4. Continue current TPN rate and content 5. Perform range of motion on upper and lower extremities 6. Labs: CBC, CMP, Mg, BNP, ABG in AM 7. Will recheck in AM or as needed 8. Patient does not look ready for ventilator weaning; extensive daily assessments and weaning trial as indicated; continue sedation as needed for ventilator tolerance
--- NOTE | 2018-09-09 10:00 | PCM.PN ---
- General Info Date of Service: 09/09/18 Subjective Update: Ms. Muniz has been somewhat less stable over the past 24 hours with persistent tachycardia and progressive decline in oxygenation. She quickly failed spontaneous breathing trial earlier this morning. She is required increased FiO2 as well as PEEP to maintain adequate oxygenation. She is currently intubated and sedated, unable to provide meaningful information concerning symptoms or review of systems. - Patient Data Vitals - Most Recent: Last Vital Signs Temp 96.8 F 09/09/18 07:00 Pulse 121 H 09/09/18 09:00 Resp 20 09/09/18 09:00 BP 169/81 H 09/09/18 09:00 Pulse Ox 90 L 09/09/18 09:00 Weight - Most Recent: 100 lb I&O - Last 24 Hours: Intake & Output 09/08/18 09/09/18 09/09/18 22:59 06:59 14:59 Intake Total 2625 1345 100 Output Total 1350 1195 620 Balance 1275 150 -520 Lab Results Last 24 Hours: Laboratory Results - last 24 hr 09/05/18 09/09/18 09/09/18 Range/Units 07:04 03:00 04:00 WBC 22.0 H (4.5-11.0) K/uL RBC 2.57 L (3.30-5.50) M/uL Hgb 8.5 L (12.0-15.0) g/dL Hct 25.5 L (36.0-48.0) % MCV 99 H (80-98) fL MCH 33 H (27-31) pg MCHC 33 (32-36) % Plt Count 268 (150-400) K/uL Puncture Site ABG pH (7.350-7.450) ABG pCO2 (35.0-42.0) mmHg ABG pO2 (75.0-100.0) mmHg ABG HCO3 (22.0-26.0) mmol/L ABG Total CO2 (21.0-25.0) mmol/L ABG O2 Saturation (95.0-98.0) % ABG O2 Content (15.0-23.0) %vol ABG Base Excess mm/L ABG Hemoglobin (12.0-16.0) g/dL ABG Oxyhemoglobin % ABG Carboxyhemoglobin (0.0-1.6) % ABG Methemoglobin % Woody Test O2 Delivery Device Sodium (140-148) mmol/L Potassium (3.6-5.2) mmol/L Chloride (100-108) mmol/L Carbon Dioxide (21-32) mmol/L Anion Gap (5.0-14.0) mmol/L BUN (7-18) mg/dL Creatinine (0.6-1.0) mg/dL Est Cr Clr Drug Dosing mL/min Estimated GFR (MDRD) (>60) Glucose (74-106) mg/dL Calcium (8.5-10.1) mg/dL Phosphorus (2.5-4.9) mg/dL Magnesium (1.8-2.4) mg/dL Total Bilirubin (0.2-1.0) mg/dL AST (15-37) U/L ALT (12-78) U/L Alkaline Phosphatase (46-116) U/L NT-Pro-B Natriuret Pep (5-450) pg/mL Total Protein (6.4-8.2) g/dL Albumin (3.4-5.0) g/dL Globulin (2.3-3.5) g/dL Albumin/Globulin Ratio (1.2-2.2) Random Gentamicin 4.4 (0.0-12.0) ug/mL Blood Type Gel Antibody Screen Crossmatch See Detail 09/09/18 09/09/18 09/09/18 Range/Units 04:00 04:00 04:00 WBC (4.5-11.0) K/uL RBC (3.30-5.50) M/uL Hgb (12.0-15.0) g/dL Hct (36.0-48.0) % MCV (80-98) fL MCH (27-31) pg MCHC (32-36) % Plt Count (150-400) K/uL Puncture Site A-line ABG pH 7.512 H (7.350-7.450) ABG pCO2 36.0 (35.0-42.0) mmHg ABG pO2 104.0 H (75.0-100.0) mmHg ABG HCO3 28.7 H (22.0-26.0) mmol/L ABG Total CO2 26.6 H (21.0-25.0) mmol/L ABG O2 Saturation 98.2 H (95.0-98.0) % ABG O2 Content 11.8 L (15.0-23.0) %vol ABG Base Excess 5.6 mm/L ABG Hemoglobin 8.6 L (12.0-16.0) g/dL ABG Oxyhemoglobin 95.5 % ABG Carboxyhemoglobin 2.1 H (0.0-1.6) % ABG Methemoglobin 0.6 % Woody Test Not performed O2 Delivery Device Ventilator Sodium 146 (140-148) mmol/L Potassium 3.9 (3.6-5.2) mmol/L Chloride 109 H (100-108) mmol/L Carbon Dioxide 29 (21-32) mmol/L Anion Gap 11.9 (5.0-14.0) mmol/L BUN 51 H (7-18) mg/dL Creatinine 0.8 (0.6-1.0) mg/dL Est Cr Clr Drug Dosing 41.50 mL/min Estimated GFR (MDRD) > 60 (>60) Glucose 135 H (74-106) mg/dL Calcium 7.9 L (8.5-10.1) mg/dL Phosphorus 3.7 (2.5-4.9) mg/dL Magnesium 2.3 D (1.8-2.4) mg/dL Total Bilirubin 0.6 (0.2-1.0) mg/dL AST 24 (15-37) U/L ALT 24 (12-78) U/L Alkaline Phosphatase 128 H (46-116) U/L NT-Pro-B Natriuret Pep 60086 H (5-450) pg/mL Total Protein 5.3 L (6.4-8.2) g/dL Albumin 2.3 L (3.4-5.0) g/dL Globulin 3.0 (2.3-3.5) g/dL Albumin/Globulin Ratio 0.8 L (1.2-2.2) Random Gentamicin (0.0-12.0) ug/mL Blood Type O POSITIVE Gel Antibody Screen Negative Crossmatch See Detail Joseph Results Last 24 Hours: Microbiology 09/07/18 05:22 Gram Stain - Final Endotrachial Tube Respiratory Culture - Final Yeast 09/03/18 12:20 Aerobic Blood Culture - Final Blood - Arm, Left NO GROWTH AFTER 5 DAYS Anaerobic Blood Culture - Final Anaerobic Gram Negative Cuco 09/03/18 12:10 Aerobic Blood Culture - Final Blood - Venous NO GROWTH AFTER 5 DAYS Anaerobic Blood Culture - Final Anaerobic Gram Negative Cuco Med Orders - Current: Current Medications Furosemide (Lasix) 20 mg IVPUSH ONETIME ONE Stop: 09/09/18 11:01 Furosemide (Lasix) 20 mg IVPUSH ONETIME ONE Stop: 09/09/18 20:01 Hydralazine HCl (Apresoline) 5 mg IVPUSH Q4H PRN PRN Reason: Hypertension Last Admin: 09/08/18 21:26 Dose: 5 mg Hydromorphone HCl (Dilaudid Booking Supervisor 15 Mg In Ns 30 Ml) 0 mg IV ASDIRECTED PRN; Protocol PRN Reason: EPIT[employer]OR [employer] 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 Last Admin: 09/09/18 05:52 Dose: 15 mg Hydroxyzine HCl (Vistaril) 50 mg IM Q4H PRN PRN Reason: Pain Meropenem 500 mg/ Sodium (Chloride) 50 mls @ 100 mls/hr IV Q8H [facility] Last Admin: 09/09/18 05:10 Dose: 100 mls/hr Heparin Sodium (Porcine) 5,000 (units/ Sodium Chloride) 501 mls @ 5 mls/hr IV ASDIRECTED NAHED Last Admin: 09/06/18 08:23 Dose: 5 mls/hr Heparin Sodium (Porcine) 5,000 (units/ Sodium Chloride) 501 mls @ 5 mls/hr IV ASDIRECTED NAHED Last Admin: 09/06/18 08:24 Dose: 5 mls/hr Propofol (Diprivan 100 Ml) 100 mls @ 1.361 mls/hr IV TITRATE NAHED; Protocol Last Admin: 09/09/18 03:14 Dose: 35 mcg/kg/min, 9.525 mls/hr Albumin Human (Albumin 25%) 25 gm in 100 mls @ 25 mls/hr IV DAILY NAHED Stop: 09/09/18 12:59 Last Admin: 09/09/18 08:25 Dose: 25 mls/hr Albumin Human (Albumin 25%) 25 gm in 100 mls @ 25 mls/hr IV Q24H NAHED Stop: 09/09/18 17:59 Last Admin: 09/08/18 14:11 Dose: 25 mls/hr Sodium Chloride (Normal Saline) 1,000 mls @ 0 mls/hr IV ASDIRECTED [facility] Last Admin: 09/08/18 11:20 Dose: 12.5 mls/hr Vancomycin HCl 1 gm/ Sodium (Chloride) 250 mls @ 167 mls/hr IV Q18H [facility] Last Admin: 09/09/18 00:03 Dose: 167 mls/hr Multivitamins/Minerals 10 ml/Chromium/Copper/Manganese/Seleni/Zn 1 ml/ Amino Ac/ Electrol/Dextrose/Calcium 1,011 mls @ 62 mls/hr IV .BY DURATION [facility] Last Admin: 09/08/18 15:49 Dose: 62 mls/hr Amino Ac/Electrol/Dextrose/Calcium (Clinimix E 09/28) 1,000 mls @ 62 mls/hr IV .BY DURATION [facility] Last Admin: 09/09/18 08:13 Dose: 62 mls/hr Azithromycin 500 mg/ Sodium (Chloride) 250 mls @ 250 mls/hr IV Q24H [facility] Last Admin: 09/08/18 15:06 Dose: 250 mls/hr Potassium Phosphate 15 mmole/ (Sodium Chloride) 105 mls @ 55 mls/hr IV Q2H [facility] Stop: 09/09/18 12:55 Gentamicin Sulfate 228 mg/ (Sodium Chloride) 105.7 mls @ 100 mls/hr IV Q36H [facility] Lorazepam (Ativan) 0.5 mg IVPUSH Q3H PRN PRN Reason: AGITATION Last Admin: 09/05/18 03:50 Dose: 0.25 mg Metoprolol Tartrate (Lopressor) 2.5 mg IVPUSH Q6H [facility] Last Admin: 09/09/18 04:16 Dose: 2.5 mg Naloxone HCl (Narcan) 0.1 mg IV ASDIRECTED PRN PRN Reason: decreased respiratory rate Pantoprazole Sodium (Protonix Iv) 40 mg IV Q24H [facility] Last Admin: 09/08/18 21:33 Dose: 40 mg Discontinued Medications Acetaminophen (Tylenol) 650 mg PO Q4H PRN PRN Reason: Pain (Mild 1-3)/fever Acetaminophen (Tylenol) 650 mg RECTAL Q4H PRN PRN Reason: Mild pain/fever Albuterol (Proventil Neb Soln) 2.5 mg NEB Q4H PRN PRN Reason: Shortness Of Breath/wheezing Albuterol/Ipratropium (Duoneb 3.0-0.5 Mg/3 Ml) 3 ml INH PREPRO ONE Stop: 09/03/18 17:01 Last Admin: 09/03/18 16:25 Dose: 3 ml Aztreonam (Azactam) Confirm Administered Dose 1 gm .ROUTE .STK-MED ONE Stop: 09/03/18 21:44 Last Admin: 09/03/18 22:15 Dose: Not Given Benazepril HCl (Lotensin) 40 mg PO ONETIME ONE Stop: 09/03/18 10:41 Last Admin: 09/03/18 11:00 Dose: 40 mg Bupivacaine HCl (Marcaine 0.5%) Confirm Administered Dose 50 ml .ROUTE .STK-MED ONE Stop: 09/07/18 06:48 Last Admin: 09/07/18 10:53 Dose: 18 ml Ropivacaine 22 ml/Dexamethasone 8 mg/Epinephrine HCl 0.4 mg/ Sodium Chloride 55.6 ml 0 ml NERVRT ASDIRECTED [facility] Ropivacaine 22 ml/Dexamethasone 8 mg/Epinephrine HCl 0.4 mg/ Sodium Chloride 55.6 ml 0 ml NERVRT ASDIRECTED [facility] Last Admin: 09/04/18 14:03 Dose: 80 syringe Ropivacaine 22 ml/Dexamethasone 8 mg/Epinephrine HCl 0.4 mg/ Sodium Chloride 55.6 ml 0 ml NERVRT ASDIRECTED [facility] Last Admin: 09/07/18 11:07 Dose: 80 syringe Dexamethasone (Dexamethasone) Confirm Administered Dose 4 mg .ROUTE .STK-MED ONE Stop: 09/03/18 14:41 Dexamethasone (Dexamethasone) Confirm Administered Dose 4 mg .ROUTE .STK-MED ONE Stop: 09/04/18 09:47 Fentanyl (Sublimaze) 25 mcg IVPUSH ONETIME ONE Stop: 09/03/18 13:57 Last Admin: 09/03/18 14:16 Dose: 25 mcg Fentanyl (Sublimaze) 25 mcg IVPUSH Q2H PRN PRN Reason: Pain (severe 7-10) Fentanyl (Sublimaze) Confirm Administered Dose 250 mcg .ROUTE .STK-MED ONE Stop: 09/03/18 14:41 Fentanyl (Sublimaze) Confirm Administered Dose 250 mcg .ROUTE .STK-MED ONE Stop: 09/04/18 09:46 Fentanyl (Sublimaze) Confirm Administered Dose 250 mcg .ROUTE .STK-MED ONE Stop: 09/04/18 13:57 Furosemide (Lasix) 20 mg IVPUSH ONETIME ONE Stop: 09/04/18 15:10 Last Admin: 09/04/18 15:18 Dose: 20 mg Furosemide (Lasix) 40 mg IV ONETIME ONE Stop: 09/06/18 08:16 Last Admin: 09/06/18 08:26 Dose: 40 mg Furosemide (Lasix) 20 mg IV Q12H NAHED Stop: 09/07/18 20:01 Last Admin: 09/07/18 20:10 Dose: 20 mg Furosemide (Lasix) 20 mg IVPUSH Q12H NAHED Stop: 09/08/18 19:01 Last Admin: 09/08/18 19:50 Dose: 20 mg Furosemide (Lasix) 20 mg IVPUSH ONETIME ONE Stop: 09/09/18 07:01 Last Admin: 09/09/18 08:14 Dose: 20 mg Gentamicin Sulfate (Gentamicin) 1 mg IV .Pharmacy to Dose [facility] Stop: 09/08/18 14:31 Glycopyrrolate (Robinul) Confirm Administered Dose 1 mg .ROUTE .STK-MED ONE Stop: 09/03/18 14:41 Glycopyrrolate (Robinul) Confirm Administered Dose 1 mg .ROUTE .STK-MED ONE Stop: 09/04/18 09:47 Heparin Sodium (Porcine) (Heparin Sodium) Confirm Administered Dose 5,000 units .ROUTE .STK-MED ONE Stop: 09/03/18 18:32 Heparin Sodium (Porcine) (Heparin Lock Flush 100 Units/Ml) Confirm Administered Dose 500 units .ROUTE .STK-MED ONE Stop: 09/04/18 13:14 Hydromorphone HCl (Dilaudid) 0.5 mg IVPUSH ONETIME ONE Stop: 09/03/18 10:48 Last Admin: 09/03/18 11:00 Dose: 0.5 mg Hydromorphone HCl (Dilaudid) 0.5 mg IVPUSH ONETIME ONE Stop: 09/03/18 11:22 Last Admin: 09/03/18 11:25 Dose: 0.5 mg Hydromorphone HCl (Dilaudid) 0.5 mg IVPUSH ONETIME ONE Stop: 09/03/18 12:10 Last Admin: 09/03/18 12:12 Dose: 0.5 mg Hydromorphone HCl (Dilaudid) 0.5 mg IVPUSH ONETIME ONE Stop: 09/03/18 12:40 Last Admin: 09/03/18 12:44 Dose: 0.5 mg Hydromorphone HCl (Dilaudid) 1 mg IVPUSH ONETIME ONE Stop: 09/03/18 12:57 Last Admin: 09/03/18 13:00 Dose: 1 mg Sodium Chloride (Normal Saline) 1,000 mls @ 1,000 mls/hr IV .BOLUS ONE Stop: 09/03/18 12:17 Last Admin: 09/03/18 11:25 Dose: 1,000 mls/hr Piperacillin/Tazobactam/ (Dextrose 4.5 gm/ Premix) 100 mls @ 200 mls/hr IV ONETIME ONE Stop: 09/03/18 13:29 Last Admin: 09/03/18 13:04 Dose: 200 mls/hr Sodium Chloride (Normal Saline) 1,000 mls @ 500 mls/hr IV ASDIRECTED [facility] Last Admin: 09/03/18 13:00 Dose: 500 mls/hr Lactated Ringer's (Ringers, Lactated) 1,000 mls @ 125 mls/hr IV ASDIRECTED [facility] Last Admin: 09/03/18 16:07 Dose: 125 mls/hr Aztreonam 2 gm/ Sodium (Chloride) 100 mls @ 200 mls/hr IV NOW ONE Stop: 09/03/18 15:29 Last Admin: 09/03/18 14:56 Dose: 200 mls/hr Meropenem 500 mg/ Sodium (Chloride) 50 mls @ 100 mls/hr IV ONCALL ONE Stop: 09/03/18 17:29 Last Admin: 09/03/18 16:25 Dose: 100 mls/hr Piperacillin/Tazobactam/ (Dextrose 3.375 gm/ Premix) 50 mls @ 100 mls/hr IV Q6H [facility] Last Admin: 09/03/18 22:15 Dose: Not Given Sodium Chloride (Normal Saline) Confirm Administered Dose 500 mls @ as directed .ROUTE .STK-MED ONE Stop: 09/03/18 18:33 Aztreonam/Dextrose 1 gm/ (Premix) 50 mls @ 100 mls/hr IV Q8HR NAHED Sodium Chloride (Normal Saline) Confirm Administered Dose 50 mls @ as directed .ROUTE .RUST-MED ONE Stop: 09/03/18 22:01 Last Admin: 09/03/18 22:21 Dose: Not Given Aztreonam/Dextrose 1 gm/ (Premix) 50 mls @ 100 mls/hr IV Q8H NAHED Last Admin: 09/04/18 07:30 Dose: Not Given Dextrose/Lactated Ringer's (Dextrose 5%-Lactated Ringers) 1,000 mls @ 100 mls/ hr IV ASDIRECTED PRN PRN Reason: Hypotension Dextrose/Lactated Ringer's (Dextrose 5%-Lactated Ringers) 1,000 mls @ 100 mls/ hr IV ASDIRECTED NAHED Last Admin: 09/05/18 02:13 Dose: 100 mls/hr Lactated Ringer's (Ringers, Lactated) 1,000 mls @ 100 mls/hr IV ASDIRECTED NAHED Last Admin: 09/04/18 04:20 Dose: 100 mls/hr Lactated Ringer's (Ringers, Lactated) 500 mls @ 500 mls/hr IV .BOLUS NAHED Last Admin: 09/04/18 01:10 Dose: 500 mls/hr Lactated Ringer's (Ringers, Lactated) 500 mls @ 500 mls/hr IV .BOLUS NAHED Last Admin: 09/04/18 03:13 Dose: 500 mls/hr Propofol (Diprivan 100 Ml) 100 mls @ 1.361 mls/hr IV TITRATE NAHED; Protocol Last Titration: 09/04/18 07:52 Dose: 14 mcg/kg/min, 3.81 mls/hr Propofol (Diprivan 100 Ml) Confirm Administered Dose 100 mls @ as directed .ROUTE .RUST-MED ONE Stop: 09/04/18 03:45 Last Admin: 09/04/18 03:59 Dose: Not Given Lactated Ringer's (Ringers, Lactated) 500 mls @ 999 mls/hr IV .BOLUS NAHED Last Admin: 09/04/18 06:10 Dose: 999 mls/hr Aztreonam/Dextrose 1 gm/ (Premix) 50 mls @ 100 mls/hr IV Q8H NAHED Last Admin: 09/07/18 08:15 Dose: 100 mls/hr Lactated Ringer's (Ringers, Lactated) 500 mls @ 500 mls/hr IV ASDIRECTED [facility] Last Admin: 09/04/18 21:04 Dose: 500 mls/hr Lactated Ringer's (Ringers, Lactated) Confirm Administered Dose 1,000 mls @ as directed .ROUTE .STK-[facility] ONE Stop: 09/04/18 13:11 Lactated Ringer's (Ringers, Lactated) Confirm Administered Dose 1,000 mls @ as directed .ROUTE .RUST-[facility] ONE Stop: 09/04/18 13:11 Sodium Chloride (Normal Saline) Confirm Administered Dose 10 mls @ as directed .ROUTE .RUST-[facility] ONE Stop: 09/04/18 13:15 Magnesium Sulfate 2 gm/ Premix 50 mls @ 25 mls/hr IV Q6H [facility] Stop: 09/06/18 11:59 Last Admin: 09/06/18 10:17 Dose: 25 mls/hr Lactated Ringer's (Ringers, Lactated) 500 [facility]ls [facility] Stop: 09/04/18 17:46 Lactated Ringer's (Ringers, Lactated) 500 mls @ 500 mls/hr IV ONETIME ONE Stop: 09/04/18 19:29 Last Admin: 09/04/18 18:37 Dose: 500 mls/hr Lactated Ringer's (Ringers, Lactated) 500 mls @ 1,000 mls/hr IV ONETIME ONE Stop: 09/04/18 23:30 Last Admin: 09/04/18 23:18 Dose: 1,000 mls/hr Lactated Ringer's (Ringers, Lactated) 500 mls @ 1,000 mls/hr IV ONETIME ONE Stop: 09/05/18 01:44 Last Admin: 09/05/18 01:15 Dose: 1,000 mls/hr Lactated Ringer's (Ringers, Lactated) 1,000 mls @ 150 mls/hr IV ASDIRECTED [facility] Last Admin: 09/05/18 02:13 Dose: 150 mls/hr Lactated Ringer's (Ringers, Lactated) 500 mls @ 1,000 mls/hr IV ONETIME ONE Stop: 09/05/18 03:38 Last Admin: 09/05/18 03:15 Dose: 1,000 mls/hr Multivitamins/Minerals 10 ml/Chromium/Copper/Manganese/Seleni/Zn 1 ml/ Amino Ac/ Electrol/Dextrose/Calcium 2,011 mls @ 82 mls/hr IV .BY DURATION NAHED Stop: 09/05/18 13:25 Last Admin: 09/05/18 13:32 Dose: Not Given Amino Ac/Electrol/Dextrose/Calcium (Clinimix E 5/15) 2,000 mls @ 82 mls/hr IV .BY DURATION [facility] Stop: 09/05/18 13:25 Vancomycin HCl 1 gm/ Sodium (Chloride) 250 mls @ 167 mls/hr IV Q24H [facility] Last Admin: 09/05/18 12:34 Dose: 167 mls/hr Sodium Chloride (Normal Saline) 1,000 mls @ 50 mls/hr IV ASDIRECTED [facility] Last Admin: 09/05/18 12:51 Dose: 50 mls/hr Multivitamins/Minerals 10 ml/Chromium/Copper/Manganese/Seleni/Zn 1 ml/ Amino Ac/ Electrol/Dextrose/Calcium 2,011 mls @ 82 mls/hr IV .BY DURATION [facility] Stop: 09/08/18 13:20 Last Admin: 09/07/18 15:09 Dose: 82 mls/hr Amino Ac/Electrol/Dextrose/Calcium (Clinimix E 5/15) 2,000 mls @ 82 mls/hr IV .BY DURATION [facility] Stop: 09/08/18 13:20 Vancomycin HCl 1 gm/ Sodium (Chloride) 250 mls @ 167 mls/hr IV Q24H [facility] Last Admin: 09/06/18 12:00 Dose: 167 mls/hr Sodium Chloride (Normal Saline) 500 mls @ 500 mls/hr IV ASDIRECTED ONE Stop: 09/05/18 16:29 Last Admin: 09/05/18 15:40 Dose: 500 mls/hr Sodium Chloride (Normal Saline) 1,000 mls @ 100 mls/hr IV ASDIRECTED [facility] Last Admin: 09/07/18 07:31 Dose: 100 mls/hr Potassium Phosphate 20 mmole/ (Sodium Chloride) 106.6667 mls @ 35 mls/hr IV Q3H NAHED Stop: 09/07/18 17:29 Last Admin: 09/07/18 15:01 Dose: 35 mls/hr Aztreonam 1 gm/ Sodium (Chloride) 50 mls @ 100 mls/hr IV Q8H [facility] Last Admin: 09/08/18 09:41 Dose: 100 mls/hr Sodium Chloride (Normal Saline) 1,000 mls @ 999 mls/hr IV .BOLUS ONE Stop: 09/07/18 17:39 Last Admin: 09/07/18 17:26 Dose: 999 mls/hr Potassium Acetate 40 meq/ (Sodium Chloride) 120 mls @ 30 mls/hr IV ONETIME ONE Stop: 09/08/18 13:59 Last Admin: 09/08/18 09:44 Dose: 30 mls/hr Sodium Chloride (Normal Saline) 100 mls @ 3 mls/sec IV ASDIRECTED [facility] Stop: 09/08/18 15:00 Last Admin: 09/08/18 14:17 Dose: 3 mls/sec Gentamicin Sulfate 228 mg/ (Sodium Chloride) 105.7 mls @ 100 mls/hr IV ONETIME ONE Stop: 09/08/18 17:03 Last Admin: 09/08/18 16:19 Dose: 100 mls/hr Iopamidol (Isovue-300 (61%)) 100 ml IV . DIRECTED PRN PRN Reason: RADIOLOGY EXAM Stop: 09/09/18 11:03 Last Admin: 09/08/18 14:16 Dose: 100 ml Lidocaine/Epinephrine (Xylocaine 1% With Epinephrine 1:100,000) Confirm Administered Dose 50 ml .ROUTE .STK-MED ONE Stop: 09/07/18 06:48 Last Admin: 09/07/18 10:54 Dose: 18 ml Lorazepam (Ativan) 0.5 mg IVPUSH Q4H PRN PRN Reason: Nausea/Vomiting Meropenem (Merrem) Confirm Administered Dose 1,000 mg .ROUTE .STK-MED ONE Stop: 09/03/18 17:54 Last Admin: 09/03/18 18:32 Dose: 3,500 mg Meropenem (Merrem) Confirm Administered Dose 1,000 mg .ROUTE .STK-MED ONE Stop: 09/03/18 18:04 Meropenem (Merrem) Confirm Administered Dose 2,000 mg .ROUTE .STK-MED ONE Stop: 09/03/18 18:18 Meropenem (Merrem) Confirm Administered Dose 500 mg .ROUTE .STK-MED ONE Stop: 09/07/18 06:48 Last Admin: 09/07/18 10:53 Dose: 500 mg Metoprolol Tartrate (Lopressor) 25 mg PO ONETIME ONE Stop: 09/03/18 10:41 Last Admin: 09/03/18 11:00 Dose: 25 mg Metoprolol Tartrate (Lopressor) 5 mg IVPUSH Q6H [facility] Last Admin: 09/08/18 09:25 Dose: 5 mg Metoprolol Tartrate (Lopressor) Confirm Administered Dose 5 mg .ROUTE .STK-MED ONE Stop: 09/08/18 21:53 Last Admin: 09/08/18 22:19 Dose: Not Given Neostigmine Methylsulfate (Neostigmine) Confirm Administered Dose 5 mg .ROUTE .STK-MED ONE Stop: 09/03/18 14:41 Neostigmine Methylsulfate (Neostigmine) Confirm Administered Dose 5 mg .ROUTE .STK-MED ONE Stop: 09/04/18 09:47 Ondansetron HCl (Zofran Odt) 4 mg PO Q6H PRN PRN Reason: Nausea able to take PO Ondansetron HCl (Zofran) 4 mg IV Q6H PRN PRN Reason: Nausea/Vomiting Ondansetron HCl (Zofran) Confirm Administered Dose 4 mg .ROUTE .STK-MED ONE Stop: 09/03/18 14:41 Ondansetron HCl (Zofran) Confirm Administered Dose 4 mg .ROUTE .STK-MED ONE Stop: 09/04/18 09:47 Pantoprazole Sodium (Protonix Iv) 40 mg IV Q12H [facility] Last Admin: 09/03/18 16:07 Dose: 40 mg Piperacillin Sod/Tazobactam Sod (Zosyn) 10.125 gm .XX ASDIRECTED [facility] Stop: 09/04/18 15:00 Last Admin: 09/04/18 14:04 Dose: 10.125 gm Propofol (Diprivan 20 Ml) Confirm Administered Dose 200 mg .ROUTE .STK-MED ONE Stop: 09/03/18 14:41 Propofol (Diprivan 20 Ml) Confirm Administered Dose 200 mg .ROUTE .STK-MED ONE Stop: 09/04/18 09:47 Propofol (Diprivan 20 Ml) Confirm Administered Dose 200 mg .ROUTE .RUST-MED ONE Stop: 09/06/18 07:01 Rocuronium [place] (Zemuron) Confirm Administered Dose 50 mg .ROUTE .RUST-MED ONE Stop: 09/03/18 14:41 Rocuronium [place] (Zemuron) Confirm Administered Dose 50 mg .ROUTE .RUST-MED ONE Stop: 09/04/18 09:47 Succinylcholine Chloride (Quelicin) Confirm Administered Dose 200 mg .ROUTE .RUST -MED ONE Stop: 09/03/18 14:41 Succinylcholine Chloride (Quelicin) Confirm Administered Dose 200 mg .ROUTE .RUST -[facility] ONE Stop: 09/04/18 09:47 Succinylcholine Chloride (Quelicin) Confirm Administered Dose 200 mg .ROUTE .[facility] ONE Stop: 09/06/18 07:01 - Exam Quality Assessment: Supplemental Oxygen (Ventilator), Central Line/PICC, Urine Catheter, DVT Prophylaxis General: Sedated, Lethargic Lungs: Decreased Breath Sounds, Rales Cardiovascular: Regular Rhythm, No Murmurs, Tachycardia GI/Abdominal Exam: Soft, No Organomegaly. No: Distended, Rigid Extremities: Non-Tender, Pedal Edema Skin: Warm, Dry - Problem List Review Problem List Initiated/Reviewed/Updated: Yes - My Orders Last 24 Hours: My Active Orders 09/08/18 10:53 hydrALAZINE [Apresoline] 5 mg IVPUSH Q4H PRN 09/08/18 14:24 Dietary Supplements [RC] BIDMEALS 09/08/18 15:00 Azithromycin [Zithromax] 500 mg Sodium Chloride 0.9% [Normal Saline] 250 ml IV Q24H 09/08/18 22:00 Metoprolol Tartrate [Lopressor] 2.5 mg IVPUSH Q6H 09/10/18 04:00 Chest 1V Frontal [CR] DAILY Gentamicin 228 mg Sodium Chloride 0.9% [Normal Saline] 100 ml IV Q36H 09/11/18 04:00 Chest 1V Frontal [CR] DAILY 09/12/18 04:00 Chest 1V Frontal [CR] DAILY 09/13/18 04:00 Chest 1V Frontal [CR] DAILY 09/14/18 04:00 Chest 1V Frontal [CR] DAILY - Plan Plan:: ASSESSMENT AND PLAN - Perforated sigmoid colon with sepsis - Initial surgical resection on 09/03 and Second Look laparotomy on 09/04. Sepsis has resolved. Cultures growing Klebsiella , Escherichia coli and anaerobic bacteria. No fevers white blood cell count elevated at 22,000. CT scan abdomen and pelvis shows no evidence of abscess present. -Continue Meropenem, and vancomycin, pending culture results -Pain control with [employer] -Follow-up cultures Acute respiratory failure with hypoxia and hypercapnia - CT scan abdomen and pelvis obtained yesterday shows evidence of bilateral pulmonary infiltrates consistent with infection, antibiotics have been changed to cover for pulmonary infection. There may also be component of ARDS developing. -Continue gentamicin and azithromycin to current regimen -Continue mechanical ventilation, she has required increased level of supplemental oxygen as well as PEEP maintain adequate oxygenation -Sedation is needed to avoid significant agitation -Soft wrist restraints -Optimize volume status -Old and further spontaneous breathing trials until respiratory status has stabilized Acute kidney injury - renal function improved and stable -Management as above -Repeat labs in the morning Hyperactive delirium - probably combination of infection and anesthesia as well as a medications. She is now lightly sedated with her intubation. -Symptomatically management and treatment of the above conditions Maintenance issues - - DVT prophylaxis - mechanical - GI prophylaxis - PPI - Nutrition - nothing by mouth - Rubin catheter - placed for strict intake and output monitoring and a critical patient Disposition - I would anticipate discharge home after the hospital stay
[2018-09-09] MEDS: Potassium Phosphates 15 MMOLE in Sodium Chloride 0.9% 100 ML IV SCH ×2 (12:54→15:27)
[2018-09-09] MEDS: Azithromycin 500 MG in Sodium Chloride 0.9% 250 ML IV SCH (15:27)
[2018-09-09] MEDS ORDERED: Sodium Chloride 0.9% 500 ML IV ONE ×2 (16:04→17:05)
[2018-09-09] MEDS: Sodium Chloride 0.9% 1,000 ML IV SCH (17:51)
[2018-09-09] MEDS: Pantoprazole 40 MG Vial IV SCH (21:04)
[2018-09-10] MEDS: Sodium Chloride 0.9% 1,000 ML IV SCH ×2 (01:41→14:57)
[2018-09-10] MEDS: Metoprolol Tartrate 5 MG/5 ML SDV IVPUSH SCH ×6 (03:55→23:51)
[2018-09-10] MEDS ORDERED: GENTAMICIN IV SCH (04:00)
[2018-09-10] MEDS ORDERED: SODIUM CHLORIDE 0.9% IV SCH (04:00)
--- NOTE | 2018-09-10 04:20 | CRLCR ---
Indication: Intubation Technique: Chest 1 view Comparison: September 09, 2018 Findings/Impression: Endotracheal tube tip terminates 2.2 cm above the level of the pham. A gastric drainage tube tip courses below the level of the left hemidiaphragm. No change in position of a left-sided subclavian central venous catheter with the tip coursing into the left neck. This has been discussed with the clinical service on two occasions and the provider is aware of the abnormal position of the central line. Patchy bilateral infiltrates again noted, increased in the left lower lobe compared to the prior study. Small bilateral pleural effusions. No pneumothorax. Dictated by Suzanne Melendez MD @ Sep 10 2018 4:19AM Signed by Dr. Suzanne Melendez @ Sep 10 2018 4:19AM
[2018-09-10] MEDS: Meropenem 500 MG in Sodium Chloride 0.9% 50 ML IV SCH (05:17)
--- NOTE | 2018-09-10 07:24 | PCM.SURGPN ---
- General Info Date of Service: 09/10/18 POD#: 7 - Review of Systems Systems Review Comment:: Tina Muniz is currently on postoperative day #7 from the original exploratory laparotomy surgery. She continues to be on a mechanical ventilator. She has failed previous weaning trials. Central venous pressures are around 23-25. She is sedated in order to tolerate ventilation and is not able to provide symptoms or a review of systems. Labs show ALT 126, AST 203 and total bilirubin at 1.2. Chloride is 112. Total intake was 6267 mL, total output was 3544 mL. Output through Rubin catheter 2639 mL. Output through NG tube was 450 mL. Vital signs show tachycardia and hypertension. - Patient Data Vitals - Most Recent: Last Vital Signs Temp 35.5 C 09/10/18 04:00 Pulse 119 H 09/10/18 05:55 Resp 27 H 09/10/18 05:55 BP 182/91 H 09/10/18 05:55 Pulse Ox 91 L 09/10/18 05:55 Weight - Most Recent: 45.359 kg I&O - Last 24 Hours: Intake & Output 09/09/18 09/10/18 09/10/18 22:59 06:59 14:59 Intake Total 2919 2603 Output Total 955 759 Balance 1964 1844 Lab Results Last 24 Hrs: Laboratory Results - last 24 hr 09/09/18 09/10/18 09/10/18 Range/Units 04:00 04:25 04:25 WBC 22.5 H (4.5-11.0) K/uL RBC 3.20 L (3.30-5.50) M/uL Hgb 10.4 L (12.0-15.0) g/dL Hct 31.5 L (36.0-48.0) % MCV 98 (80-98) fL MCH 33 H (27-31) pg MCHC 33 (32-36) % Plt Count 298 (150-400) K/uL Puncture Site Line ABG pH 7.442 (7.350-7.450) ABG pCO2 37.6 (35.0-42.0) mmHg ABG pO2 81.3 (75.0-100.0) mmHg ABG HCO3 25.3 (22.0-26.0) mmol/L ABG Total CO2 23.1 (21.0-25.0) mmol/L ABG O2 Saturation 95.6 (95.0-98.0) % ABG O2 Content 14.0 L (15.0-23.0) %vol ABG Base Excess 1.7 mm/L ABG Hemoglobin 10.6 L (12.0-16.0) g/dL ABG Oxyhemoglobin 93.8 % ABG Carboxyhemoglobin 1.4 (0.0-1.6) % ABG Methemoglobin 0.5 % O2 Delivery Device Ventilator Oxygen Flow Rate L Sodium (140-148) mmol/L Potassium (3.6-5.2) mmol/L Chloride (100-108) mmol/L Carbon Dioxide (21-32) mmol/L Anion Gap (5.0-14.0) mmol/L BUN (7-18) mg/dL Creatinine (0.6-1.0) mg/dL Est Cr Clr Drug Dosing mL/min Estimated GFR (MDRD) (>60) Glucose (74-106) mg/dL Calcium (8.5-10.1) mg/dL Phosphorus (2.5-4.9) mg/dL Magnesium (1.8-2.4) mg/dL Total Bilirubin (0.2-1.0) mg/dL AST (15-37) U/L ALT (12-78) U/L Alkaline Phosphatase (46-116) U/L Total Protein (6.4-8.2) g/dL Albumin (3.4-5.0) g/dL Globulin (2.3-3.5) g/dL Albumin/Globulin Ratio (1.2-2.2) Blood Type O POSITIVE Gel Antibody Screen Negative Crossmatch See Detail 09/10/18 Range/Units 04:25 WBC (4.5-11.0) K/uL RBC (3.30-5.50) M/uL Hgb (12.0-15.0) g/dL Hct (36.0-48.0) % MCV (80-98) fL MCH (27-31) pg MCHC (32-36) % Plt Count (150-400) K/uL Puncture Site ABG pH (7.350-7.450) ABG pCO2 (35.0-42.0) mmHg ABG pO2 (75.0-100.0) mmHg ABG HCO3 (22.0-26.0) mmol/L ABG Total CO2 (21.0-25.0) mmol/L ABG O2 Saturation (95.0-98.0) % ABG O2 Content (15.0-23.0) %vol ABG Base Excess mm/L ABG Hemoglobin (12.0-16.0) g/dL ABG Oxyhemoglobin % ABG Carboxyhemoglobin (0.0-1.6) % ABG Methemoglobin % O2 Delivery Device Oxygen Flow Rate L Sodium 148 (140-148) mmol/L Potassium 4.2 (3.6-5.2) mmol/L Chloride 112 H (100-108) mmol/L Carbon Dioxide 25 (21-32) mmol/L Anion Gap 15.2 H (5.0-14.0) mmol/L BUN 49 H (7-18) mg/dL Creatinine 0.8 (0.6-1.0) mg/dL Est Cr Clr Drug Dosing 41.50 mL/min Estimated GFR (MDRD) > 60 (>60) Glucose 160 H (74-106) mg/dL Calcium 7.8 L (8.5-10.1) mg/dL Phosphorus 4.4 (2.5-4.9) mg/dL Magnesium 1.8 (1.8-2.4) mg/dL Total Bilirubin 1.2 H D (0.2-1.0) mg/dL AST 203 H D (15-37) U/L ALT 126 H (12-78) U/L Alkaline Phosphatase 125 H (46-116) U/L Total Protein 5.6 L (6.4-8.2) g/dL Albumin 2.5 L (3.4-5.0) g/dL Globulin 3.1 (2.3-3.5) g/dL Albumin/Globulin Ratio 0.8 L (1.2-2.2) Blood Type Gel Antibody Screen Crossmatch Joseph Results Last 24 Hrs: Microbiology 09/07/18 05:22 Gram Stain - Final Endotrachial Tube Respiratory Culture - Final Yeast Med Orders - Current: Current Medications Hydralazine HCl (Apresoline) 5 mg IVPUSH Q4H PRN PRN Reason: Hypertension Last Admin: 09/08/18 21:26 Dose: 5 mg Hydromorphone HCl (Dilaudid Painter Tumbling Barrel 15 Mg In Ns 30 Ml) 0 mg IV ASDIRECTED PRN; Protocol PRN 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 Last Admin: 09/09/18 05:52 Dose: 15 mg Hydroxyzine HCl (Vistaril) 50 mg IM Q4H PRN PRN Reason: Pain Meropenem 500 mg/ Sodium (Chloride) 50 mls @ 100 mls/hr IV Q8H [facility] Last Admin: 09/10/18 05:17 Dose: 100 mls/hr Heparin Sodium (Porcine) 5,000 (units/ Sodium Chloride) 501 mls @ 5 mls/hr IV ASDIRECTED [facility] Last Admin: 09/06/18 08:23 Dose: 5 mls/hr Heparin Sodium (Porcine) 5,000 (units/ Sodium Chloride) 501 mls @ 5 mls/hr IV ASDIRECTED [facility] Last Admin: 09/06/18 08:24 Dose: 5 mls/hr Propofol (Diprivan 100 Ml) 100 mls @ 1.361 mls/hr IV TITRATE [facility]; Protocol Last Admin: 09/09/18 23:55 Dose: 30 mcg/kg/min, 8.165 mls/hr Sodium Chloride (Normal Saline) 1,000 mls @ 0 mls/hr IV ASDIRECTED [facility] Last Admin: 09/08/18 11:20 Dose: 12.5 mls/hr Vancomycin HCl 1 gm/ Sodium (Chloride) 250 mls @ 167 mls/hr IV Q18H [facility] Last Admin: 09/09/18 18:42 Dose: 167 mls/hr Multivitamins/Minerals 10 ml/Chromium/Copper/Manganese/Seleni/Zn 1 ml/ Amino Ac/ Electrol/Dextrose/Calcium 1,011 mls @ 62 mls/hr IV .BY DURATION [facility] Last Admin: 09/09/18 22:36 Dose: 62 mls/hr Amino Ac/Electrol/Dextrose/Calcium (Clinimix E 09/28) 1,000 mls @ 62 mls/hr IV .BY DURATION [facility] Last Admin: 09/09/18 08:13 Dose: 62 mls/hr Azithromycin 500 mg/ Sodium (Chloride) 250 mls @ 250 mls/hr IV Q24H [facility] Last Admin: 09/09/18 15:27 Dose: 250 mls/hr Gentamicin Sulfate 228 mg/ (Sodium Chloride) 105.7 mls @ 100 mls/hr IV Q36H [facility] Last Admin: 09/10/18 03:55 Dose: 100 mls/hr Sodium Chloride (Normal Saline) 1,000 mls @ 125 mls/hr IV ASDIRECTED [facility] Last Admin: 09/10/18 01:41 Dose: 125 mls/hr Lorazepam (Ativan) 0.5 mg IVPUSH Q3H PRN PRN Reason: AGITATION Last Admin: 09/05/18 03:50 Dose: 0.25 mg Metoprolol Tartrate (Lopressor) 2.5 mg IVPUSH Q6H [facility] Last Admin: 09/10/18 03:55 Dose: 2.5 mg Naloxone HCl (Narcan) 0.1 mg IV ASDIRECTED PRN PRN Reason: decreased respiratory rate Pantoprazole Sodium (Protonix Iv) 40 mg IV Q24H [facility] Last Admin: 09/09/18 21:04 Dose: 40 mg Discontinued Medications Acetaminophen (Tylenol) 650 mg PO Q4H PRN PRN Reason: Pain (Mild 1-3)/fever Acetaminophen (Tylenol) 650 mg RECTAL Q4H PRN PRN Reason: Mild pain/fever Albuterol (Proventil Neb Soln) 2.5 mg NEB Q4H PRN PRN Reason: Shortness Of Breath/wheezing Albuterol/Ipratropium (Duoneb 3.0-0.5 Mg/3 Ml) 3 ml INH PREPRO ONE Stop: 09/03/18 17:01 Last Admin: 09/03/18 16:25 Dose: 3 ml Aztreonam (Azactam) Confirm Administered Dose 1 gm .ROUTE .STK-MED ONE Stop: 09/03/18 21:44 Last Admin: 09/03/18 22:15 Dose: Not Given Benazepril HCl (Lotensin) 40 mg PO ONETIME ONE Stop: 09/03/18 10:41 Last Admin: 09/03/18 11:00 Dose: 40 mg Bupivacaine HCl (Marcaine 0.5%) Confirm Administered Dose 50 ml .ROUTE .STK-MED ONE Stop: 09/07/18 06:48 Last Admin: 09/07/18 10:53 Dose: 18 ml Ropivacaine 22 ml/Dexamethasone 8 mg/Epinephrine HCl 0.4 mg/ Sodium Chloride 55.6 ml 0 ml NERVRT ASDIRECTED [facility] Ropivacaine 22 ml/Dexamethasone 8 mg/Epinephrine HCl 0.4 mg/ Sodium Chloride 55.6 ml 0 ml NERVRT ASDIRECTED [facility] Last Admin: 09/04/18 14:03 Dose: 80 syringe Ropivacaine 22 ml/Dexamethasone 8 mg/Epinephrine HCl 0.4 mg/ Sodium Chloride 55.6 ml 0 ml NERVRT ASDIRECTED [facility] Last Admin: 09/07/18 11:07 Dose: 80 syringe Dexamethasone (Dexamethasone) Confirm Administered Dose 4 mg .ROUTE .STK-MED ONE Stop: 09/03/18 14:41 Dexamethasone (Dexamethasone) Confirm Administered Dose 4 mg .ROUTE .STK-MED ONE Stop: 09/04/18 09:47 Fentanyl (Sublimaze) 25 mcg IVPUSH ONETIME ONE Stop: 09/03/18 13:57 Last Admin: 09/03/18 14:16 Dose: 25 mcg Fentanyl (Sublimaze) 25 mcg IVPUSH Q2H PRN PRN Reason: Pain (severe 7-10) Fentanyl (Sublimaze) Confirm Administered Dose 250 mcg .ROUTE .STK-MED ONE Stop: 09/03/18 14:41 Fentanyl (Sublimaze) Confirm Administered Dose 250 mcg .ROUTE .STK-MED ONE Stop: 09/04/18 09:46 Fentanyl (Sublimaze) Confirm Administered Dose 250 mcg .ROUTE .STK-MED ONE Stop: 09/04/18 13:57 Furosemide (Lasix) 20 mg IVPUSH ONETIME ONE Stop: 09/04/18 15:10 Last Admin: 09/04/18 15:18 Dose: 20 mg Furosemide (Lasix) 40 mg IV ONETIME ONE Stop: 09/06/18 08:16 Last Admin: 09/06/18 08:26 Dose: 40 mg Furosemide (Lasix) 20 mg IV Q12H [facility] Stop: 09/07/18 20:01 Last Admin: 09/07/18 20:10 Dose: 20 mg Furosemide (Lasix) 20 mg IVPUSH Q12H [facility] Stop: 09/08/18 19:01 Last Admin: 09/08/18 19:50 Dose: 20 mg Furosemide (Lasix) 20 mg IVPUSH ONETIME ONE Stop: 09/09/18 07:01 Last Admin: 09/09/18 08:14 Dose: 20 mg Furosemide (Lasix) 20 mg IVPUSH ONETIME ONE Stop: 09/09/18 11:01 Last Admin: 09/09/18 12:38 Dose: 20 mg Furosemide (Lasix) 20 mg IVPUSH ONETIME ONE Stop: 09/09/18 20:01 Gentamicin Sulfate (Gentamicin) 1 mg IV .Pharmacy to Dose [facility] Stop: 09/08/18 14:31 Glycopyrrolate (Robinul) Confirm Administered Dose 1 mg .ROUTE .STK-MED ONE Stop: 09/03/18 14:41 Glycopyrrolate (Robinul) Confirm Administered Dose 1 mg .ROUTE .STK-MED ONE Stop: 09/04/18 09:47 Heparin Sodium (Porcine) (Heparin Sodium) Confirm Administered Dose 5,000 units .ROUTE .STK-MED ONE Stop: 09/03/18 18:32 Heparin Sodium (Porcine) (Heparin Lock Flush 100 Units/Ml) Confirm Administered Dose 500 units .ROUTE .STK-MED ONE Stop: 09/04/18 13:14 Hydromorphone HCl (Dilaudid) 0.5 mg IVPUSH ONETIME ONE Stop: 09/03/18 10:48 Last Admin: 09/03/18 11:00 Dose: 0.5 mg Hydromorphone HCl (Dilaudid) 0.5 mg IVPUSH ONETIME ONE Stop: 09/03/18 11:22 Last Admin: 09/03/18 11:25 Dose: 0.5 mg Hydromorphone HCl (Dilaudid) 0.5 mg IVPUSH ONETIME ONE Stop: 09/03/18 12:10 Last Admin: 09/03/18 12:12 Dose: 0.5 mg Hydromorphone HCl (Dilaudid) 0.5 mg IVPUSH ONETIME ONE Stop: 09/03/18 12:40 Last Admin: 09/03/18 12:44 Dose: 0.5 mg Hydromorphone HCl (Dilaudid) 1 mg IVPUSH ONETIME ONE Stop: 09/03/18 12:57 Last Admin: 09/03/18 13:00 Dose: 1 mg Sodium Chloride (Normal Saline) 1,000 mls @ 1,000 mls/hr IV .BOLUS ONE Stop: 09/03/18 12:17 Last Admin: 09/03/18 11:25 Dose: 1,000 mls/hr Piperacillin/Tazobactam/ (Dextrose 4.5 gm/ Premix) 100 mls @ 200 mls/hr IV ONETIME ONE Stop: 09/03/18 13:29 Last Admin: 09/03/18 13:04 Dose: 200 mls/hr Sodium Chloride (Normal Saline) 1,000 mls @ 500 mls/hr IV ASDIRECTED [facility] Last Admin: 09/03/18 13:00 Dose: 500 mls/hr Lactated Ringer's (Ringers, Lactated) 1,000 mls @ 125 mls/hr IV ASDIRECTED [facility] Last Admin: 09/03/18 16:07 Dose: 125 mls/hr Aztreonam 2 gm/ Sodium (Chloride) 100 mls @ 200 mls/hr IV NOW ONE Stop: 09/03/18 15:29 Last Admin: 09/03/18 14:56 Dose: 200 mls/hr Meropenem 500 mg/ Sodium (Chloride) 50 mls @ 100 mls/hr IV ONCALL ONE Stop: 09/03/18 17:29 Last Admin: 09/03/18 16:25 Dose: 100 mls/hr Piperacillin/Tazobactam/ (Dextrose 3.375 gm/ Premix) 50 mls @ 100 mls/hr IV Q6H [facility] Last Admin: 09/03/18 22:15 Dose: Not Given Sodium Chloride (Normal Saline) Confirm Administered Dose 500 mls @ as directed .ROUTE .STK-MED ONE Stop: 09/03/18 18:33 Aztreonam/Dextrose 1 gm/ (Premix) 50 mls @ 100 mls/hr IV Q8HR [facility] Sodium Chloride (Normal Saline) Confirm Administered Dose 50 mls @ as directed .ROUTE .STK-MED ONE Stop: 09/03/18 22:01 Last Admin: 09/03/18 22:21 Dose: Not Given Aztreonam/Dextrose 1 gm/ (Premix) 50 mls @ 100 mls/hr IV Q8H [facility] Last Admin: 09/04/18 07:30 Dose: Not Given Dextrose/Lactated Ringer's (Dextrose 5%-Lactated Ringers) 1,000 mls @ 100 mls/ hr IV ASDIRECTED PRN PRN Reason: Hypotension Dextrose/Lactated Ringer's (Dextrose 5%-Lactated Ringers) 1,000 mls @ 100 mls/ hr IV ASDIRECTED [facility] Last Admin: 09/05/18 02:13 Dose: 100 mls/hr Lactated Ringer's (Ringers, Lactated) 1,000 mls @ 100 mls/hr IV ASDIRECTED [facility] Last Admin: 09/04/18 04:20 Dose: 100 mls/hr Lactated Ringer's (Ringers, Lactated) 500 mls @ 500 mls/hr IV .BOLUS [facility] Last Admin: 09/04/18 01:10 Dose: 500 mls/hr Lactated Ringer's (Ringers, Lactated) 500 mls @ 500 mls/hr IV .BOLUS [facility] Last Admin: 09/04/18 03:13 Dose: 500 mls/hr Propofol (Diprivan 100 Ml) 100 mls @ 1.361 mls/hr IV TITRATE [facility]; Protocol Last Titration: 09/04/18 07:52 Dose: 14 mcg/kg/min, 3.81 mls/hr Propofol (Diprivan 100 Ml) Confirm Administered Dose 100 mls @ as directed .ROUTE .STK-MED ONE Stop: 09/04/18 03:45 Last Admin: 09/04/18 03:59 Dose: Not Given Lactated Ringer's (Ringers, Lactated) 500 mls @ 999 mls/hr IV .BOLUS [facility] Last Admin: 09/04/18 06:10 Dose: 999 mls/hr Aztreonam/Dextrose 1 gm/ (Premix) 50 mls @ 100 mls/hr IV Q8H [facility] Last Admin: 09/07/18 08:15 Dose: 100 mls/hr Lactated Ringer's (Ringers, Lactated) 500 mls @ 500 mls/hr IV ASDIRECTED [facility] Last Admin: 09/04/18 21:04 Dose: 500 mls/hr Lactated Ringer's (Ringers, Lactated) Confirm Administered Dose 1,000 mls @ as directed .ROUTE .STK-MED ONE Stop: 09/04/18 13:11 Lactated Ringer's (Ringers, Lactated) Confirm Administered Dose 1,000 mls @ as directed .ROUTE .STK-MED ONE Stop: 09/04/18 13:11 Sodium Chloride (Normal Saline) Confirm Administered Dose 10 mls @ as directed .ROUTE .STK-MED ONE Stop: 09/04/18 13:15 Magnesium Sulfate 2 gm/ Premix 50 mls @ 25 mls/hr IV Q6H [facility] Stop: 09/06/18 11:59 Last Admin: 09/06/18 10:17 Dose: 25 mls/hr Lactated Ringer's (Ringers, Lactated) 500 mls @ 500 mls/hr IV ASDIRECTED [facility] Stop: 09/04/18 17:46 Lactated Ringer's (Ringers, Lactated) 500 mls @ 500 mls/hr IV ONETIME ONE Stop: 09/04/18 19:29 Last Admin: 09/04/18 18:37 Dose: 500 mls/hr Lactated Ringer's (Ringers, Lactated) 500 mls @ 1,000 mls/hr IV ONETIME ONE Stop: 09/04/18 23:30 Last Admin: 09/04/18 23:18 Dose: 1,000 mls/hr Lactated Ringer's (Ringers, Lactated) 500 mls @ 1,000 mls/hr IV ONETIME ONE Stop: 09/05/18 01:44 Last Admin: 09/05/18 01:15 Dose: 1,000 mls/hr Lactated Ringer's (Ringers, Lactated) 1,000 mls @ 150 mls/hr IV ASDIRECTED [facility] Last Admin: 09/05/18 02:13 Dose: 150 mls/hr Lactated Ringer's (Ringers, Lactated) 500 mls @ 1,000 mls/hr IV ONETIME ONE Stop: 09/05/18 03:38 Last Admin: 09/05/18 03:15 Dose: 1,000 mls/hr Multivitamins/Minerals 10 ml/Chromium/Copper/Manganese/Seleni/Zn 1 ml/ Amino Ac/ Electrol/Dextrose/Calcium 2,011 mls @ 82 mls/hr IV .BY DURATION [facility] Stop: 09/05/18 13:25 Last Admin: 09/05/18 13:32 Dose: Not Given Amino Ac/Electrol/Dextrose/Calcium (Clinimix E 15) 2,000 mls @ 82 mls/hr IV .BY DURATION [facility] Stop: 09/05/18 13:25 Vancomycin HCl 1 gm/ Sodium (Chloride) 250 mls @ 167 mls/hr IV Q24H [facility] Last Admin: 09/05/18 12:34 Dose: 167 mls/hr Sodium Chloride (Normal Saline) 1,000 mls @ 50 mls/hr IV ASDIRECTED [facility] Last Admin: 09/05/18 12:51 Dose: 50 mls/hr Multivitamins/Minerals 10 ml/Chromium/Copper/Manganese/Seleni/Zn 1 ml/ Amino Ac/ Electrol/Dextrose/Calcium 2,011 mls @ 82 mls/hr IV .BY DURATION [facility] Stop: 09/08/18 13:20 Last Admin: 09/07/18 15:09 Dose: 82 mls/hr Amino Ac/Electrol/Dextrose/Calcium (Clinimix E 09/23) 2,000 mls @ 82 mls/hr IV .BY DURATION [facility] Stop: 09/08/18 13:20 Vancomycin HCl 1 gm/ Sodium (Chloride) 250 mls @ 167 mls/hr IV Q24H [facility] Last Admin: 09/06/18 12:00 Dose: 167 mls/hr Sodium Chloride (Normal Saline) 500 mls @ 500 mls/hr IV ASDIRECTED ONE Stop: 09/05/18 16:29 Last Admin: 09/05/18 15:40 Dose: 500 mls/hr Sodium Chloride (Normal Saline) 1,000 mls @ 100 mls/hr IV ASDIRECTED [facility] Last Admin: 09/07/18 07:31 Dose: 100 mls/hr Potassium Phosphate 20 mmole/ (Sodium Chloride) 106.6667 mls @ 35 mls/hr IV Q3H [facility] Stop: 09/07/18 17:29 Last Admin: 09/07/18 15:01 Dose: 35 mls/hr Albumin Human (Albumin 25%) 25 gm in 100 mls @ 25 mls/hr IV DAILY [facility] Stop: 09/09/18 12:59 Last Admin: 09/09/18 08:25 Dose: 25 mls/hr Albumin Human (Albumin 25%) 25 gm in 100 mls @ 25 mls/hr IV Q24H [facility] Stop: 09/09/18 17:59 Last Admin: 09/09/18 14:32 Dose: 25 mls/hr Aztreonam 1 gm/ Sodium (Chloride) 50 mls @ 100 mls/hr IV Q8H [facility] Last Admin: 09/08/18 09:41 Dose: 100 mls/hr Sodium Chloride (Normal Saline) 1,000 mls @ 999 mls/hr IV .BOLUS ONE Stop: 09/07/18 17:39 Last Admin: 09/07/18 17:26 Dose: 999 mls/hr Potassium Acetate 40 meq/ (Sodium Chloride) 120 mls @ 30 mls/hr IV ONETIME ONE Stop: 09/08/18 13:59 Last Admin: 09/08/18 09:44 Dose: 30 mls/hr Sodium Chloride (Normal Saline) 100 mls @ 3 mls/sec IV ASDIRECTED [facility] Stop: 09/08/18 15:00 Last Admin: 09/08/18 14:17 Dose: 3 mls/sec Gentamicin Sulfate 228 mg/ (Sodium Chloride) 105.7 mls @ 100 mls/hr IV ONETIME ONE Stop: 09/08/18 17:03 Last Admin: 09/08/18 16:19 Dose: 100 mls/hr Potassium Phosphate 15 mmole/ (Sodium Chloride) 105 mls @ 55 mls/hr IV Q2H [facility] Stop: 09/09/18 12:55 Last Admin: 09/09/18 15:27 Dose: 55 mls/hr Sodium Chloride (Normal Saline) 500 mls @ 999 mls/hr IV .BOLUS ONE Stop: 09/09/18 16:34 Last Admin: 09/09/18 16:18 Dose: 999 mls/hr Sodium Chloride (Normal Saline) 500 mls @ 999 mls/hr IV .BOLUS ONE Stop: 09/09/18 17:35 Last Admin: 09/09/18 17:18 Dose: 999 mls/hr Iopamidol (Isovue-300 (61%)) 100 ml IV . DIRECTED PRN PRN Reason: RADIOLOGY EXAM Stop: 09/09/18 11:03 Last Admin: 09/08/18 14:16 Dose: 100 ml Lidocaine/Epinephrine (Xylocaine 1% With Epinephrine 1:100,000) Confirm Administered Dose 50 ml .ROUTE .STK-MED ONE Stop: 09/07/18 06:48 Last Admin: 09/07/18 10:54 Dose: 18 ml Lorazepam (Ativan) 0.5 mg IVPUSH Q4H PRN PRN Reason: Nausea/Vomiting Meropenem (Merrem) Confirm Administered Dose 1,000 mg .ROUTE .STK-MED ONE Stop: 09/03/18 17:54 Last Admin: 09/03/18 18:32 Dose: 3,500 mg Meropenem (Merrem) Confirm Administered Dose 1,000 mg .ROUTE .STK-MED ONE Stop: 09/03/18 18:04 Meropenem (Merrem) Confirm Administered Dose 2,000 mg .ROUTE .STK-MED ONE Stop: 09/03/18 18:18 Meropenem (Merrem) Confirm Administered Dose 500 mg .ROUTE .STK-MED ONE Stop: 09/07/18 06:48 Last Admin: 09/07/18 10:53 Dose: 500 mg Metoprolol Tartrate (Lopressor) 25 mg PO ONETIME ONE Stop: 09/03/18 10:41 Last Admin: 09/03/18 11:00 Dose: 25 mg Metoprolol Tartrate (Lopressor) 5 mg IVPUSH Q6H [facility] Last Admin: 09/08/18 09:25 Dose: 5 mg Metoprolol Tartrate (Lopressor) Confirm Administered Dose 5 mg .ROUTE .STK-MED ONE Stop: 09/08/18 21:53 Last Admin: 09/08/18 22:19 Dose: Not Given Neostigmine Methylsulfate (Neostigmine) Confirm Administered Dose 5 mg .ROUTE .STK-MED ONE Stop: 09/03/18 14:41 Neostigmine Methylsulfate (Neostigmine) Confirm Administered Dose 5 mg .ROUTE .STK-MED ONE Stop: 09/04/18 09:47 Ondansetron HCl (Zofran Odt) 4 mg PO Q6H PRN PRN Reason: Nausea able to take PO Ondansetron HCl (Zofran) 4 mg IV Q6H PRN PRN Reason: Nausea/Vomiting Ondansetron HCl (Zofran) Confirm Administered Dose 4 mg .ROUTE .STK-MED ONE Stop: 09/03/18 14:41 Ondansetron HCl (Zofran) Confirm Administered Dose 4 mg .ROUTE .STK-MED ONE Stop: 09/04/18 09:47 Pantoprazole Sodium (Protonix Iv) 40 mg IV Q12H [facility] Last Admin: 09/03/18 16:07 Dose: 40 mg Piperacillin Sod/Tazobactam Sod (Zosyn) 10.125 gm .XX ASDIRECTED [facility] Stop: 09/04/18 15:00 Last Admin: 09/04/18 14:04 Dose: 10.125 gm Propofol (Diprivan 20 Ml) Confirm Administered Dose 200 mg .ROUTE .STK-MED ONE Stop: 09/03/18 14:41 Propofol (Diprivan 20 Ml) Confirm Administered Dose 200 mg .ROUTE .STK-MED ONE Stop: 09/04/18 09:47 Propofol (Diprivan 20 Ml) Confirm Administered Dose 200 mg .ROUTE .STK-MED ONE Stop: 09/06/18 07:01 Rocuronium [place] (Zemuron) Confirm Administered Dose 50 mg .ROUTE .STK-MED ONE Stop: 09/03/18 14:41 Rocuronium [place] (Zemuron) Confirm Administered Dose 50 mg .ROUTE .STK-MED ONE Stop: 09/04/18 09:47 Succinylcholine Chloride (Quelicin) Confirm Administered Dose 200 mg .ROUTE .STK -MED ONE Stop: 09/03/18 14:41 Succinylcholine Chloride (Quelicin) Confirm Administered Dose 200 mg .ROUTE .STK -MED ONE Stop: 09/04/18 09:47 Succinylcholine Chloride (Quelicin) Confirm Administered Dose 200 mg .ROUTE .STK -MED ONE Stop: 09/06/18 07:01 - Exam Wound/Incisions: Other (Aquacel has shadowing on the lower 3/4 of bandage. Asked to put on a new aquacel. REMY drain sites are leaking serous fluid) Quality Assessment: Central Line/PICC, Urine Catheter, DVT Prophylaxis General: Sedated, Lethargic Neck: Supple Lungs: Normal Respiratory Effort, Other (mild crackles in lung keyes ) Cardiovascular: Regular Rhythm, Tachycardia GI/Abdominal Exam: Soft, No Distention Extremities: Other (bilateral lower extremity edema) - Problem List Review Problem List Initiated/Reviewed/Updated: Yes - My Orders Last 24 Hours: Active Orders 24 hr Category Date Time Status Communication Order [RC] Q4H Care 09/09/18 06:33 Active Chest 1V Frontal [CR] DAILY Exams 09/10/18 04:00 Stop Req Chest 1V Frontal [CR] DAILY Exams 09/11/18 04:00 Ordered Chest 1V Frontal [CR] DAILY Exams 09/11/18 04:00 Stop Req Chest 1V Frontal [CR] DAILY Exams 09/12/18 04:00 Ordered Chest 1V Frontal [CR] DAILY Exams 09/12/18 04:00 Stop Req Chest 1V Frontal [CR] DAILY Exams 09/13/18 04:00 Ordered Chest 1V Frontal [CR] DAILY Exams 09/13/18 04:00 Stop Req Chest 1V Frontal [CR] DAILY Exams 09/14/18 04:00 Ordered Chest 1V Frontal [CR] DAILY Exams 09/14/18 04:00 Stop Req ABG [BLOOD GAS ARTERIAL] [BG] Routine Lab 09/11/18 04:00 Ordered CBC W/O DIFF,HEMOGRAM [HEME] Timed Lab 09/11/18 04:00 Ordered COMPREHENSIVE METABOLIC PN,CMP [CHEM] Timed Lab 09/11/18 04:00 Ordered MAGNESIUM [CHEM] Timed Lab 09/11/18 04:00 Ordered PHOSPHORUS [CHEM] Timed Lab 09/11/18 04:00 Ordered PRO B-TYPE NATRIUR PEPT,BNPPRO [CHEM] Timed Lab 09/11/18 04:00 Ordered Gentamicin 228 mg Med 09/10/18 04:00 Active Sodium Chloride 0.9% [Normal Saline] 100 ml IV Q36H Sodium Chloride 0.9% [Normal Saline] 1,000 ml Med 09/09/18 17:15 Active IV ASDIRECTED Drain Removal [OM.PC] Routine Oth 09/10/18 06:53 Ordered Transfuse Red Blood Cells [COMM] Routine Oth 09/09/18 06:29 Ordered Medication Orders Hydralazine HCl (Apresoline) 5 mg IVPUSH Q4H PRN PRN Reason: Hypertension Last Admin: 09/08/18 21:26 Dose: 5 mg Hydromorphone HCl (Dilaudid Painter Tumbling Barrel 15 Mg In Ns 30 Ml) 0 mg IV ASDIRECTED PRN; Protocol PRN 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 Last Admin: 09/09/18 05:52 Dose: 15 mg Admin: 09/05/18 16:37 Dose: 15 mg Admin: 09/03/18 15:28 Dose: 15 mg Hydroxyzine HCl (Vistaril) 50 mg IM Q4H PRN PRN Reason: Pain Meropenem 500 mg/ Sodium (Chloride) 50 mls @ 100 mls/hr IV Q8H NAHED Last Admin: 09/10/18 05:17 Dose: 100 mls/hr Admin: 09/09/18 21:10 Dose: 100 mls/hr Admin: 09/09/18 14:31 Dose: 100 mls/hr Admin: 09/09/18 05:10 Dose: 100 mls/hr Admin: 09/08/18 21:33 Dose: 100 mls/hr Admin: 09/08/18 14:05 Dose: 100 mls/hr Admin: 09/08/18 05:06 Dose: 100 mls/hr Admin: 09/07/18 21:47 Dose: 100 mls/hr Admin: 09/07/18 14:17 Dose: 100 mls/hr Admin: 09/07/18 05:34 Dose: 100 mls/hr Admin: 09/06/18 21:37 Dose: 100 mls/hr Admin: 09/06/18 13:42 Dose: 100 mls/hr Admin: 09/06/18 05:30 Dose: 100 mls/hr Admin: 09/05/18 21:31 Dose: 100 mls/hr Admin: 09/05/18 14:59 Dose: 100 mls/hr Admin: 09/05/18 05:17 Dose: 100 mls/hr Admin: 09/04/18 21:09 Dose: 100 mls/hr Admin: 09/04/18 16:31 Dose: 100 mls/hr Admin: 09/04/18 05:23 Dose: 100 mls/hr Admin: 09/03/18 22:50 Dose: 100 mls/hr Heparin Sodium (Porcine) 5,000 (units/ Sodium Chloride) 501 mls @ 5 mls/hr IV ASDIRECTED NAHED Last Admin: 09/06/18 08:23 Dose: 5 mls/hr Infusion: 09/06/18 08:23 Dose: 5 mls/hr Admin: 09/04/18 17:08 Dose: 5 mls/hr Heparin Sodium (Porcine) 5,000 (units/ Sodium Chloride) 501 mls @ 5 mls/hr IV ASDIRECTED NAHED Last Admin: 09/06/18 08:24 Dose: 5 mls/hr Propofol (Diprivan 100 Ml) 100 mls @ 1.361 mls/hr IV TITRATE NAHED; Protocol Last Admin: 09/09/18 23:55 Dose: 30 mcg/kg/min, 8.165 mls/hr Titration: 09/09/18 23:46 Dose: 30 mcg/kg/min, 8.165 mls/hr Titration: 09/09/18 23:31 Dose: 30 mcg/kg/min, 8.165 mls/hr Titration: 09/09/18 21:53 Dose: 25 mcg/kg/min, 6.804 mls/hr Titration: 09/09/18 21:00 Dose: 30 mcg/kg/min, 8.165 mls/hr Admin: 09/09/18 12:34 Dose: 35 mcg/kg/min, 9.525 mls/hr Titration: 09/09/18 12:34 Dose: 35 mcg/kg/min, 9.525 mls/hr Admin: 09/09/18 03:14 Dose: 35 mcg/kg/min, 9.525 mls/hr Titration: 09/09/18 03:14 Dose: 35 mcg/kg/min, 9.525 mls/hr Admin: 09/08/18 18:39 Dose: 35 mcg/kg/min, 9.525 mls/hr Titration: 09/08/18 18:23 Dose: 35 mcg/kg/min, 9.525 mls/hr Titration: 09/08/18 11:08 Dose: 35 mcg/kg/min, 9.525 mls/hr Titration: 09/08/18 11:05 Dose: 15 mcg/kg/min, 4.082 mls/hr Admin: 09/08/18 07:47 Dose: 35 mcg/kg/min, 9.525 mls/hr Titration: 09/08/18 07:47 Dose: 35 mcg/kg/min, 9.525 mls/hr Admin: 09/08/18 03:23 Dose: 35 mcg/kg/min, 9.525 mls/hr Titration: 09/08/18 03:23 Dose: 35 mcg/kg/min, 9.525 mls/hr Admin: 09/07/18 18:34 Dose: 35 mcg/kg/min, 9.525 mls/hr Titration: 09/07/18 18:34 Dose: 25 mcg/kg/min, 6.804 mls/hr Titration: 09/07/18 18:00 Dose: 25 mcg/kg/min, 6.804 mls/hr Titration: 09/07/18 17:15 Dose: 0 mcg/kg/min, 0 mls/hr Admin: 09/07/18 10:06 Dose: 35 mcg/kg/min, 9.525 mls/hr Titration: 09/07/18 10:06 Dose: 35 mcg/kg/min, 9.525 mls/hr Titration: 09/07/18 06:01 Dose: 35 mcg/kg/min, 9.525 mls/hr Titration: 09/07/18 04:43 Dose: 30 mcg/kg/min, 8.165 mls/hr Titration: 09/07/18 04:30 Dose: 35 mcg/kg/min, 9.525 mls/hr Titration: 09/07/18 03:14 Dose: 40 mcg/kg/min, 10.886 mls/hr Admin: 09/07/18 01:13 Dose: 35 mcg/kg/min, 9.525 mls/hr Titration: 09/07/18 01:13 Dose: 35 mcg/kg/min, 9.525 mls/hr Titration: 09/07/18 01:09 Dose: 35 mcg/kg/min, 9.525 mls/hr Titration: 09/06/18 22:02 Dose: 30 mcg/kg/min, 8.165 mls/hr Titration: 09/06/18 21:05 Dose: 35 mcg/kg/min, 9.525 mls/hr Titration: 09/06/18 20:11 Dose: 30 mcg/kg/min, 8.165 mls/hr Titration: 09/06/18 20:02 Dose: 25 mcg/kg/min, 6.804 mls/hr Titration: 09/06/18 17:52 Dose: 20 mcg/kg/min, 5.443 mls/hr Titration: 09/06/18 13:43 Dose: 15 mcg/kg/min, 4.082 mls/hr Titration: 09/06/18 13:32 Dose: 10 mcg/kg/min, 2.722 mls/hr Titration: 09/06/18 12:04 Dose: 7 mcg/kg/min, 1.905 mls/hr Admin: 09/06/18 09:48 Dose: 5 mcg/kg/min, 1.361 mls/hr Sodium Chloride (Normal Saline) 1,000 mls @ 0 mls/hr IV ASDIRECTED [facility] Last Admin: 09/08/18 11:20 Dose: 12.5 mls/hr Vancomycin HCl 1 gm/ Sodium (Chloride) 250 mls @ 167 mls/hr IV Q18H [facility] Last Admin: 09/09/18 18:42 Dose: 167 mls/hr Admin: 09/09/18 00:03 Dose: 167 mls/hr Admin: 09/08/18 06:03 Dose: 167 mls/hr Admin: 09/07/18 13:35 Dose: 167 mls/hr Multivitamins/Minerals 10 ml/Chromium/Copper/Manganese/Seleni/Zn 1 ml/ Amino Ac/ Electrol/Dextrose/Calcium 1,011 mls @ 62 mls/hr IV .BY DURATION [facility] Last Admin: 09/09/18 22:36 Dose: 62 mls/hr Infusion: 09/09/18 08:08 Dose: 62 mls/hr Admin: 09/08/18 15:49 Dose: 62 mls/hr Amino Ac/Electrol/Dextrose/Calcium (Clinimix E 09/28) 1,000 mls @ 62 mls/hr IV .BY DURATION [facility] Last Admin: 09/09/18 08:13 Dose: 62 mls/hr Azithromycin 500 mg/ Sodium (Chloride) 250 mls @ 250 mls/hr IV Q24H [facility] Last Admin: 09/09/18 15:27 Dose: 250 mls/hr Admin: 09/08/18 15:06 Dose: 250 mls/hr Gentamicin Sulfate 228 mg/ (Sodium Chloride) 105.7 mls @ 100 mls/hr IV Q36H [facility] Last Admin: 09/10/18 03:55 Dose: 100 mls/hr Sodium Chloride (Normal Saline) 1,000 mls @ 125 mls/hr IV ASDIRECTED [facility] Last Admin: 09/10/18 01:41 Dose: 125 mls/hr Infusion: 09/10/18 01:41 Dose: 125 mls/hr Admin: 09/09/18 17:51 Dose: 125 mls/hr Lorazepam (Ativan) 0.5 mg IVPUSH Q3H PRN PRN Reason: AGITATION Last Admin: 09/05/18 03:50 Dose: 0.25 mg Admin: 09/04/18 23:39 Dose: 0.25 mg Admin: 09/04/18 20:15 Dose: 0.25 mg Admin: 09/04/18 16:30 Dose: 0.5 mg Metoprolol Tartrate (Lopressor) 2.5 mg IVPUSH Q6H [facility] Last Admin: 09/10/18 03:55 Dose: 2.5 mg Admin: 09/09/18 21:04 Dose: 2.5 mg Admin: 09/09/18 16:19 Dose: Not Given Admin: 09/09/18 11:08 Dose: 2.5 mg Admin: 09/09/18 04:16 Dose: 2.5 mg Admin: 09/08/18 21:55 Dose: 2.5 mg Naloxone HCl (Narcan) 0.1 mg IV ASDIRECTED PRN PRN Reason: decreased respiratory rate Pantoprazole Sodium (Protonix Iv) 40 mg IV Q24H [facility] Last Admin: 09/09/18 21:04 Dose: 40 mg Admin: 09/08/18 21:33 Dose: 40 mg Admin: 09/07/18 21:47 Dose: 40 mg Admin: 09/06/18 21:36 Dose: 40 mg Admin: 09/05/18 21:31 Dose: 40 mg Admin: 09/04/18 21:09 Dose: 40 mg Admin: 09/03/18 22:50 Dose: 40 mg - Assessment Assessment (Free Text/Narrative):: 1. 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 Exploratory laparotomy with a. sigmoid colon resection with end colostomy plus Rosa procedure b. drainage of pericolonic abscess plus diffuse peritoneal cavity washout c. small bowel resection Date of procedure: 09/03/2018, Surgeon Christiano Estrada MD 3.Indication of central venous access 4. Diffuse feculent peritonitis with second look laparotomy showing: a. pelvic right subphrenic with fluid collection b. segment small bowel with increasing necrosis adjacent mesentery 5. Insertion Left subclavian triple-lumen catheter 6. Second look laparotomy with: a. drainage peritoneal inflammatory fluid collection b. drainage right subphrenic inflammatory fluid collection d. plus small bowel resection 7. Date of procedure: 09/04/2018, Surgeon, Christiano Estrada MD 8. Ventilator dependence 9. Hypoalbuminemia 10. REMY drains show clear but are leaking from skin incision 11. Sputum culture showing yeast - Plan Plan (Free Text/Narrative):: 1. Discontinue the 3 REMY drains 2. Consult pharmacy to control TPN to minimize chloride content and substitute it with acetate; otherwise continue current TPN rate 3. Pharmacy consult to minimize IV fluid volume 4. Initiate Lasix 20 mg IV push now and every 8 hours to facilitate diuresis; ask in AM 5. Labs: CBC, CMP, Mg, Phosphors, ABG, BNP in AM 6. Add Diflucan 200 mg IV every day for sputum growing yeast 7. Recheck as needed or in AM
[2018-09-10] MEDS: Furosemide 20 MG/2 ML VIAL IV SCH ×3 (08:45→23:50)
[2018-09-10] MEDS: Lactated Ringers 1,000 ML IV SCH (09:10)
--- NOTE | 2018-09-10 09:36 | PCM.PN ---
- General Info Date of Service: 09/10/18 Subjective Update: Ms. Muniz is been fairly stable since yesterday, no significant worsening or significant improvement. Continues to require high level ventilatory support to maintain adequate oxygenation. Continues to experience a resting sinus tachycardia, blood pressure has been high, with intermittent episodes of hypotension. White blood cell count remains elevated, renal function has been stable. She is unable to provide meaningful history concerning symptoms or review systems because of intubation and sedation. - Patient Data Vitals - Most Recent: Last Vital Signs Temp 98.1 F 09/10/18 07:15 Pulse 123 H 09/10/18 09:18 Resp 25 H 09/10/18 08:00 BP 182/93 H 09/10/18 09:18 Pulse Ox 92 L 09/10/18 08:00 Weight - Most Recent: 100 lb I&O - Last 24 Hours: Intake & Output 09/09/18 09/10/18 09/10/18 22:59 06:59 14:59 Intake Total 2919 2603 Output Total 955 759 Balance 1964 1844 Lab Results Last 24 Hours: Laboratory Results - last 24 hr 09/09/18 09/10/18 09/10/18 Range/Units 04:00 04:25 04:25 WBC 22.5 H (4.5-11.0) K/uL RBC 3.20 L (3.30-5.50) M/uL Hgb 10.4 L (12.0-15.0) g/dL Hct 31.5 L (36.0-48.0) % MCV 98 (80-98) fL MCH 33 H (27-31) pg MCHC 33 (32-36) % Plt Count 298 (150-400) K/uL Puncture Site Line ABG pH 7.442 (7.350-7.450) ABG pCO2 37.6 (35.0-42.0) mmHg ABG pO2 81.3 (75.0-100.0) mmHg ABG HCO3 25.3 (22.0-26.0) mmol/L ABG Total CO2 23.1 (21.0-25.0) mmol/L ABG O2 Saturation 95.6 (95.0-98.0) % ABG O2 Content 14.0 L (15.0-23.0) %vol ABG Base Excess 1.7 mm/L ABG Hemoglobin 10.6 L (12.0-16.0) g/dL ABG Oxyhemoglobin 93.8 % ABG Carboxyhemoglobin 1.4 (0.0-1.6) % ABG Methemoglobin 0.5 % O2 Delivery Device Ventilator Oxygen Flow Rate L Sodium (140-148) mmol/L Potassium (3.6-5.2) mmol/L Chloride (100-108) mmol/L Carbon Dioxide (21-32) mmol/L Anion Gap (5.0-14.0) mmol/L BUN (7-18) mg/dL Creatinine (0.6-1.0) mg/dL Est Cr Clr Drug Dosing mL/min Estimated GFR (MDRD) (>60) Glucose (74-106) mg/dL Calcium (8.5-10.1) mg/dL Phosphorus (2.5-4.9) mg/dL Magnesium (1.8-2.4) mg/dL Total Bilirubin (0.2-1.0) mg/dL AST (15-37) U/L ALT (12-78) U/L Alkaline Phosphatase (46-116) U/L Total Protein (6.4-8.2) g/dL Albumin (3.4-5.0) g/dL Globulin (2.3-3.5) g/dL Albumin/Globulin Ratio (1.2-2.2) Blood Type O POSITIVE Gel Antibody Screen Negative Crossmatch See Detail 09/10/18 Range/Units 04:25 WBC (4.5-11.0) K/uL RBC (3.30-5.50) M/uL Hgb (12.0-15.0) g/dL Hct (36.0-48.0) % MCV (80-98) fL MCH (27-31) pg MCHC (32-36) % Plt Count (150-400) K/uL Puncture Site ABG pH (7.350-7.450) ABG pCO2 (35.0-42.0) mmHg ABG pO2 (75.0-100.0) mmHg ABG HCO3 (22.0-26.0) mmol/L ABG Total CO2 (21.0-25.0) mmol/L ABG O2 Saturation (95.0-98.0) % ABG O2 Content (15.0-23.0) %vol ABG Base Excess mm/L ABG Hemoglobin (12.0-16.0) g/dL ABG Oxyhemoglobin % ABG Carboxyhemoglobin (0.0-1.6) % ABG Methemoglobin % O2 Delivery Device Oxygen Flow Rate L Sodium 148 (140-148) mmol/L Potassium 4.2 (3.6-5.2) mmol/L Chloride 112 H (100-108) mmol/L Carbon Dioxide 25 (21-32) mmol/L Anion Gap 15.2 H (5.0-14.0) mmol/L BUN 49 H (7-18) mg/dL Creatinine 0.8 (0.6-1.0) mg/dL Est Cr Clr Drug Dosing 41.50 mL/min Estimated GFR (MDRD) > 60 (>60) Glucose 160 H (74-106) mg/dL Calcium 7.8 L (8.5-10.1) mg/dL Phosphorus 4.4 (2.5-4.9) mg/dL Magnesium 1.8 (1.8-2.4) mg/dL Total Bilirubin 1.2 H D (0.2-1.0) mg/dL AST 203 H D (15-37) U/L ALT 126 H (12-78) U/L Alkaline Phosphatase 125 H (46-116) U/L Total Protein 5.6 L (6.4-8.2) g/dL Albumin 2.5 L (3.4-5.0) g/dL Globulin 3.1 (2.3-3.5) g/dL Albumin/Globulin Ratio 0.8 L (1.2-2.2) Blood Type Gel Antibody Screen Crossmatch Joseph Results Last 24 Hours: Microbiology 09/07/18 05:22 Gram Stain - Final Endotrachial Tube Respiratory Culture - Final Yeast Med Orders - Current: Current Medications Furosemide (Lasix) 20 mg IV Q8H NAHED Stop: 09/11/18 00:31 Last Admin: 09/10/18 08:45 Dose: 20 mg Hydralazine HCl (Apresoline) 5 mg IVPUSH Q4H PRN PRN Reason: Hypertension Last Admin: 09/08/18 21:26 Dose: 5 mg Hydromorphone HCl (Dilaudid [employer] 15 Mg In Ns 30 Ml) 0 mg IV ASDIRECTED PRN; Protocol 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 Last Admin: 09/09/18 05:52 Dose: 15 mg Hydroxyzine HCl (Vistaril) 50 mg IM Q4H PRN PRN Reason: Pain Heparin Sodium (Porcine) 5,000 (units/ Sodium Chloride) 501 mls @ 5 mls/hr IV ASDIRECTED [facility] Last Admin: 09/06/18 08:23 Dose: 5 mls/hr Heparin Sodium (Porcine) 5,000 (units/ Sodium Chloride) 501 mls @ 5 mls/hr IV ASDIRECTED [facility] Last Admin: 09/06/18 08:24 Dose: 5 mls/hr Propofol (Diprivan 100 Ml) 100 mls @ 1.361 mls/hr IV TITRATE [facility]; Protocol Last Admin: 09/09/18 23:55 Dose: 30 mcg/kg/min, 8.165 mls/hr Sodium Chloride (Normal Saline) 1,000 mls @ 0 mls/hr IV ASDIRECTED [facility] Last Admin: 09/08/18 11:20 Dose: 12.5 mls/hr Vancomycin HCl 1 gm/ Sodium (Chloride) 250 mls @ 167 mls/hr IV Q18H [facility] Last Admin: 09/09/18 18:42 Dose: 167 mls/hr Multivitamins/Minerals 10 ml/Chromium/Copper/Manganese/Seleni/Zn 1 ml/ Amino Ac/ Electrol/Dextrose/Calcium 1,011 mls @ 62 mls/hr IV .BY DURATION [facility] Last Admin: 09/09/18 22:36 Dose: 62 mls/hr Amino Ac/Electrol/Dextrose/Calcium (Clinimix E 09/28) 1,000 mls @ 62 mls/hr IV .BY DURATION [facility] Last Admin: 09/09/18 08:13 Dose: 62 mls/hr Lactated Ringer's (Ringers, Lactated) 1,000 mls @ 125 mls/hr IV ASDIRECTED [facility] Last Admin: 09/10/18 09:10 Dose: 125 mls/hr Meropenem 500 mg/ Sodium (Chloride) 25 mls @ 50 mls/hr IV Q8H NAHED Gentamicin Sulfate 228 mg/ (Sodium Chloride) 55.7 mls @ 55 mls/hr IV Q36H [facility] Azithromycin 500 mg/ Dextrose/ (Water) 250 mls @ 250 mls/hr IV Q24H [facility] Lorazepam (Ativan) 0.5 mg IVPUSH Q3H PRN PRN Reason: AGITATION Last Admin: 09/05/18 03:50 Dose: 0.25 mg Metoprolol Tartrate (Lopressor) 2.5 mg IVPUSH Q4H [facility] Last Admin: 09/10/18 09:18 Dose: 2.5 mg Naloxone HCl (Narcan) 0.1 mg IV ASDIRECTED PRN PRN Reason: decreased respiratory rate Pantoprazole Sodium (Protonix Iv) 40 mg IV Q24H [facility] Last Admin: 09/09/18 21:04 Dose: 40 mg Discontinued Medications Acetaminophen (Tylenol) 650 mg PO Q4H PRN PRN Reason: Pain (Mild 1-3)/fever Acetaminophen (Tylenol) 650 mg RECTAL Q4H PRN PRN Reason: Mild pain/fever Albuterol (Proventil Neb Soln) 2.5 mg NEB Q4H PRN PRN Reason: Shortness Of Breath/wheezing Albuterol/Ipratropium (Duoneb 3.0-0.5 Mg/3 Ml) 3 ml INH PREPRO ONE Stop: 09/03/18 17:01 Last Admin: 09/03/18 16:25 Dose: 3 ml Aztreonam (Azactam) Confirm Administered Dose 1 gm .ROUTE .STK-MED ONE Stop: 09/03/18 21:44 Last Admin: 09/03/18 22:15 Dose: Not Given Benazepril HCl (Lotensin) 40 mg PO ONETIME ONE Stop: 09/03/18 10:41 Last Admin: 09/03/18 11:00 Dose: 40 mg Bupivacaine HCl (Marcaine 0.5%) Confirm Administered Dose 50 ml .ROUTE .STK-MED ONE Stop: 09/07/18 06:48 Last Admin: 09/07/18 10:53 Dose: 18 ml Ropivacaine 22 ml/Dexamethasone 8 mg/Epinephrine HCl 0.4 mg/ Sodium Chloride 55.6 ml 0 ml NERVRT ASDIRECTED [facility] Ropivacaine 22 ml/Dexamethasone 8 mg/Epinephrine HCl 0.4 mg/ Sodium Chloride 55.6 ml 0 ml NERVRT ASDIRECTED [facility] Last Admin: 09/04/18 14:03 Dose: 80 syringe Ropivacaine 22 ml/Dexamethasone 8 mg/Epinephrine HCl 0.4 mg/ Sodium Chloride 55.6 ml 0 ml NERVRT ASDIRECTED [facility] Last Admin: 09/07/18 11:07 Dose: 80 syringe Dexamethasone (Dexamethasone) Confirm Administered Dose 4 mg .ROUTE .STK-MED ONE Stop: 09/03/18 14:41 Dexamethasone (Dexamethasone) Confirm Administered Dose 4 mg .ROUTE .STK-MED ONE Stop: 09/04/18 09:47 Fentanyl (Sublimaze) 25 mcg IVPUSH ONETIME ONE Stop: 09/03/18 13:57 Last Admin: 09/03/18 14:16 Dose: 25 mcg Fentanyl (Sublimaze) 25 mcg IVPUSH Q2H PRN PRN Reason: Pain (severe 7-10) Fentanyl (Sublimaze) Confirm Administered Dose 250 mcg .ROUTE .STK-MED ONE Stop: 09/03/18 14:41 Fentanyl (Sublimaze) Confirm Administered Dose 250 mcg .ROUTE .STK-MED ONE Stop: 09/04/18 09:46 Fentanyl (Sublimaze) Confirm Administered Dose 250 mcg .ROUTE .STK-MED ONE Stop: 09/04/18 13:57 Furosemide (Lasix) 20 mg IVPUSH ONETIME ONE Stop: 09/04/18 15:10 Last Admin: 09/04/18 15:18 Dose: 20 mg Furosemide (Lasix) 40 mg IV ONETIME ONE Stop: 09/06/18 08:16 Last Admin: 09/06/18 08:26 Dose: 40 mg Furosemide (Lasix) 20 mg IV Q12H [facility] Stop: 09/07/18 20:01 Last Admin: 09/07/18 20:10 Dose: 20 mg Furosemide (Lasix) 20 mg IVPUSH Q12H [facility] Stop: 09/08/18 19:01 Last Admin: 09/08/18 19:50 Dose: 20 mg Furosemide (Lasix) 20 mg IVPUSH ONETIME ONE Stop: 09/09/18 07:01 Last Admin: 09/09/18 08:14 Dose: 20 mg Furosemide (Lasix) 20 mg IVPUSH ONETIME ONE Stop: 09/09/18 11:01 Last Admin: 09/09/18 12:38 Dose: 20 mg Furosemide (Lasix) 20 mg IVPUSH ONETIME ONE Stop: 09/09/18 20:01 Gentamicin Sulfate (Gentamicin) 1 mg IV .Pharmacy to Dose NAHED Stop: 09/08/18 14:31 Glycopyrrolate (Robinul) Confirm Administered Dose 1 mg .ROUTE .STK-MED ONE Stop: 09/03/18 14:41 Glycopyrrolate (Robinul) Confirm Administered Dose 1 mg .ROUTE .STK-MED ONE Stop: 09/04/18 09:47 Heparin Sodium (Porcine) (Heparin Sodium) Confirm Administered Dose 5,000 units .ROUTE .STK-MED ONE Stop: 09/03/18 18:32 Heparin Sodium (Porcine) (Heparin Lock Flush 100 Units/Ml) Confirm Administered Dose 500 units .ROUTE .STK-MED ONE Stop: 09/04/18 13:14 Hydromorphone HCl (Dilaudid) 0.5 mg IVPUSH ONETIME ONE Stop: 09/03/18 10:48 Last Admin: 09/03/18 11:00 Dose: 0.5 mg Hydromorphone HCl (Dilaudid) 0.5 mg IVPUSH ONETIME ONE Stop: 09/03/18 11:22 Last Admin: 09/03/18 11:25 Dose: 0.5 mg Hydromorphone HCl (Dilaudid) 0.5 mg IVPUSH ONETIME ONE Stop: 09/03/18 12:10 Last Admin: 09/03/18 12:12 Dose: 0.5 mg Hydromorphone HCl (Dilaudid) 0.5 mg IVPUSH ONETIME ONE Stop: 09/03/18 12:40 Last Admin: 09/03/18 12:44 Dose: 0.5 mg Hydromorphone HCl (Dilaudid) 1 mg IVPUSH ONETIME ONE Stop: 09/03/18 12:57 Last Admin: 09/03/18 13:00 Dose: 1 mg Sodium Chloride (Normal Saline) 1,000 mls @ 1,000 mls/hr IV .BOLUS ONE Stop: 09/03/18 12:17 Last Admin: 09/03/18 11:25 Dose: 1,000 mls/hr Piperacillin/Tazobactam/ (Dextrose 4.5 gm/ Premix) 100 mls @ 200 mls/hr IV ONETIME ONE Stop: 09/03/18 13:29 Last Admin: 09/03/18 13:04 Dose: 200 mls/hr Sodium Chloride (Normal Saline) 1,000 mls @ 500 mls/hr IV ASDIRECTED [facility] Last Admin: 09/03/18 13:00 Dose: 500 mls/hr Lactated Ringer's (Ringers, Lactated) 1,000 mls @ 125 mls/hr IV ASDIRECTED [facility] Last Admin: 09/03/18 16:07 Dose: 125 mls/hr Aztreonam 2 gm/ Sodium (Chloride) 100 mls @ 200 mls/hr IV NOW ONE Stop: 09/03/18 15:29 Last Admin: 09/03/18 14:56 Dose: 200 mls/hr Meropenem 500 mg/ Sodium (Chloride) 50 mls @ 100 mls/hr IV ONCALL ONE Stop: 09/03/18 17:29 Last Admin: 09/03/18 16:25 Dose: 100 mls/hr Piperacillin/Tazobactam/ (Dextrose 3.375 gm/ Premix) 50 mls @ 100 mls/hr IV Q6H [facility] Last Admin: 09/03/18 22:15 Dose: Not Given Sodium Chloride (Normal Saline) Confirm Administered Dose 500 mls @ as directed .ROUTE .STK-MED ONE Stop: 09/03/18 18:33 Aztreonam/Dextrose 1 gm/ (Premix) 50 mls @ 100 mls/hr IV Q8HR [facility] Meropenem 500 mg/ Sodium (Chloride) 50 mls @ 100 mls/hr IV Q8H [facility] Last Admin: 09/10/18 05:17 Dose: 100 mls/hr Sodium Chloride (Normal Saline) Confirm Administered Dose 50 mls @ as directed .ROUTE .STK-MED ONE Stop: 09/03/18 22:01 Last Admin: 09/03/18 22:21 Dose: Not Given Aztreonam/Dextrose 1 gm/ (Premix) 50 mls @ 100 mls/hr IV Q8H [facility] Last Admin: 09/04/18 07:30 Dose: Not Given Dextrose/Lactated Ringer's (Dextrose 5%-Lactated Ringers) 1,000 mls @ 100 mls/ hr IV ASDIRECTED PRN PRN Reason: Hypotension Dextrose/Lactated Ringer's (Dextrose 5%-Lactated Ringers) 1,000 mls @ 100 mls/ hr IV ASDIRECTED [facility] Last Admin: 09/05/18 02:13 Dose: 100 mls/hr Lactated Ringer's (Ringers, Lactated) 1,000 mls @ 100 mls/hr IV ASDIRECTED NAHED Last Admin: 09/04/18 04:20 Dose: 100 mls/hr Lactated Ringer's (Ringers, Lactated) 500 mls @ 500 mls/hr IV .BOLUS NAHED Last Admin: 09/04/18 01:10 Dose: 500 mls/hr Lactated Ringer's (Ringers, Lactated) 500 mls @ 500 mls/hr IV .BOLUS NAHED Last Admin: 09/04/18 03:13 Dose: 500 mls/hr Propofol (Diprivan 100 Ml) 100 mls @ 1.361 mls/hr IV TITRATE NAHED; Protocol Last Titration: 09/04/18 07:52 Dose: 14 mcg/kg/min, 3.81 mls/hr Propofol (Diprivan 100 Ml) Confirm Administered Dose 100 mls @ as directed .ROUTE .[facility]-MED ONE Stop: 09/04/18 03:45 Last Admin: 09/04/18 03:59 Dose: Not Given Lactated Ringer's (Ringers, Lactated) 500 mls @ 999 mls/hr IV .BOLUS NAHED Last Admin: 09/04/18 06:10 Dose: 999 mls/hr Aztreonam/Dextrose 1 gm/ (Premix) 50 mls @ 100 mls/hr IV Q8H NAHED Last Admin: 09/07/18 08:15 Dose: 100 mls/hr Lactated Ringer's (Ringers, Lactated) 500 mls @ 500 mls/hr IV ASDIRECTED NAHED Last Admin: 09/04/18 21:04 Dose: 500 mls/hr Lactated Ringer's (Ringers, Lactated) Confirm Administered Dose 1,000 mls @ as directed .ROUTE .[facility]-MED ONE Stop: 09/04/18 13:11 Lactated Ringer's (Ringers, Lactated) Confirm Administered Dose 1,000 mls @ as directed .ROUTE .STK-MED ONE Stop: 09/04/18 13:11 Sodium Chloride (Normal Saline) Confirm Administered Dose 10 mls @ as directed .ROUTE .[facility]-MED ONE Stop: 09/04/18 13:15 Magnesium Sulfate 2 gm/ Premix 50 mls @ 25 mls/hr IV Q6H [facility] Stop: 09/06/18 11:59 Last Admin: 09/06/18 10:17 Dose: 25 mls/hr Lactated Ringer's (Ringers, Lactated) 500 mls @ 500 mls/hr IV ASDIRECTED [facility] Stop: 09/04/18 17:46 Lactated Ringer's (Ringers, Lactated) 500 mls @ 500 mls/hr IV ONETIME ONE Stop: 09/04/18 19:29 Last Admin: 09/04/18 18:37 Dose: 500 mls/hr Lactated Ringer's (Ringers, Lactated) 500 mls @ 1,000 mls/hr IV ONETIME ONE Stop: 09/04/18 23:30 Last Admin: 09/04/18 23:18 Dose: 1,000 mls/hr Lactated Ringer's (Ringers, Lactated) 500 mls @ 1,000 mls/hr IV ONETIME ONE Stop: 09/05/18 01:44 Last Admin: 09/05/18 01:15 Dose: 1,000 mls/hr Lactated Ringer's (Ringers, Lactated) 1,000 mls @ 150 mls/hr IV ASDIRECTED [facility] Last Admin: 09/05/18 02:13 Dose: 150 mls/hr Lactated Ringer's (Ringers, Lactated) 500 mls @ 1,000 mls/hr IV ONETIME ONE Stop: 09/05/18 03:38 Last Admin: 09/05/18 03:15 Dose: 1,000 mls/hr Multivitamins/Minerals 10 ml/Chromium/Copper/Manganese/Seleni/Zn 1 ml/ Amino Ac/ Electrol/Dextrose/Calcium 2,011 mls @ 82 mls/hr IV .BY DURATION [facility] Stop: 09/05/18 13:25 Last Admin: 09/05/18 13:32 Dose: Not Given Amino Ac/Electrol/Dextrose/Calcium (Clinimix E 09/23) 2,000 mls @ 82 mls/hr IV .BY DURATION [facility] Stop: 09/05/18 13:25 Vancomycin HCl 1 gm/ Sodium (Chloride) 250 mls @ 167 mls/hr IV Q24H [facility] Last Admin: 09/05/18 12:34 Dose: 167 mls/hr Sodium Chloride (Normal Saline) 1,000 mls @ 50 mls/hr IV ASDIRECTED [facility] Last Admin: 09/05/18 12:51 Dose: 50 mls/hr Multivitamins/Minerals 10 ml/Chromium/Copper/Manganese/Seleni/Zn 1 ml/ Amino Ac/ Electrol/Dextrose/Calcium 2,011 mls @ 82 mls/hr IV .BY DURATION NAHED Stop: 09/08/18 13:20 Last Admin: 09/07/18 15:09 Dose: 82 mls/hr Amino Ac/Electrol/Dextrose/Calcium (Clinimix E 09/23) 2,000 mls @ 82 mls/hr IV .BY DURATION [facility] Stop: 09/08/18 13:20 Vancomycin HCl 1 gm/ Sodium (Chloride) 250 mls @ 167 mls/hr IV Q24H [facility] Last Admin: 09/06/18 12:00 Dose: 167 mls/hr Sodium Chloride (Normal Saline) 500 mls @ 500 mls/hr IV ASDIRECTED ONE Stop: 09/05/18 16:29 Last Admin: 09/05/18 15:40 Dose: 500 mls/hr Sodium Chloride (Normal Saline) 1,000 mls @ 100 mls/hr IV ASDIRECTED [facility] Last Admin: 09/07/18 07:31 Dose: 100 mls/hr Potassium Phosphate 20 mmole/ (Sodium Chloride) 106.6667 mls @ 35 mls/hr IV Q3H NAHED Stop: 09/07/18 17:29 Last Admin: 09/07/18 15:01 Dose: 35 mls/hr Albumin Human (Albumin 25%) 25 gm in 100 mls @ 25 mls/hr IV DAILY NAHED Stop: 09/09/18 12:59 Last Admin: 09/09/18 08:25 Dose: 25 mls/hr Albumin Human (Albumin 25%) 25 gm in 100 mls @ 25 mls/hr IV Q24H NAHED Stop: 09/09/18 17:59 Last Admin: 09/09/18 14:32 Dose: 25 mls/hr Aztreonam 1 gm/ Sodium (Chloride) 50 mls @ 100 mls/hr IV Q8H [facility] Last Admin: 09/08/18 09:41 Dose: 100 mls/hr Sodium Chloride (Normal Saline) 1,000 mls @ 999 mls/hr IV .BOLUS ONE Stop: 09/07/18 17:39 Last Admin: 09/07/18 17:26 Dose: 999 mls/hr Potassium Acetate 40 meq/ (Sodium Chloride) 120 mls @ 30 mls/hr IV ONETIME ONE Stop: 09/08/18 13:59 Last Admin: 09/08/18 09:44 Dose: 30 mls/hr Sodium Chloride (Normal Saline) 100 mls @ 3 mls/sec IV ASDIRECTED [facility] Stop: 09/08/18 15:00 Last Admin: 09/08/18 14:17 Dose: 3 mls/sec Azithromycin 500 mg/ Sodium (Chloride) 250 mls @ 250 mls/hr IV Q24H [facility] Last Admin: 09/09/18 15:27 Dose: 250 mls/hr Gentamicin Sulfate 228 mg/ (Sodium Chloride) 105.7 mls @ 100 mls/hr IV ONETIME ONE Stop: 09/08/18 17:03 Last Admin: 09/08/18 16:19 Dose: 100 mls/hr Potassium Phosphate 15 mmole/ (Sodium Chloride) 105 mls @ 55 mls/hr IV Q2H [facility] Stop: 09/09/18 12:55 Last Admin: 09/09/18 15:27 Dose: 55 mls/hr Gentamicin Sulfate 228 mg/ (Sodium Chloride) 105.7 mls @ 100 mls/hr IV Q36H [facility] Last Admin: 09/10/18 03:55 Dose: 100 mls/hr Sodium Chloride (Normal Saline) 500 mls @ 999 mls/hr IV .BOLUS ONE Stop: 09/09/18 16:34 Last Admin: 09/09/18 16:18 Dose: 999 mls/hr Sodium Chloride (Normal Saline) 500 mls @ 999 mls/hr IV .BOLUS ONE Stop: 09/09/18 17:35 Last Admin: 09/09/18 17:18 Dose: 999 mls/hr Sodium Chloride (Normal Saline) 1,000 mls @ 125 mls/hr IV ASDIRECTED [facility] Last Admin: 09/10/18 01:41 Dose: 125 mls/hr Iopamidol (Isovue-300 (61%)) 100 ml IV . DIRECTED PRN PRN Reason: RADIOLOGY EXAM Stop: 09/09/18 11:03 Last Admin: 09/08/18 14:16 Dose: 100 ml Lidocaine/Epinephrine (Xylocaine 1% With Epinephrine 1:100,000) Confirm Administered Dose 50 ml .ROUTE .STK-MED ONE Stop: 09/07/18 06:48 Last Admin: 09/07/18 10:54 Dose: 18 ml Lorazepam (Ativan) 0.5 mg IVPUSH Q4H PRN PRN Reason: Nausea/Vomiting Meropenem (Merrem) Confirm Administered Dose 1,000 mg .ROUTE .STK-MED ONE Stop: 09/03/18 17:54 Last Admin: 09/03/18 18:32 Dose: 3,500 mg Meropenem (Merrem) Confirm Administered Dose 1,000 mg .ROUTE .STK-MED ONE Stop: 09/03/18 18:04 Meropenem (Merrem) Confirm Administered Dose 2,000 mg .ROUTE .STK-MED ONE Stop: 09/03/18 18:18 Meropenem (Merrem) Confirm Administered Dose 500 mg .ROUTE .STK-MED ONE Stop: 09/07/18 06:48 Last Admin: 09/07/18 10:53 Dose: 500 mg Metoprolol Tartrate (Lopressor) 25 mg PO ONETIME ONE Stop: 09/03/18 10:41 Last Admin: 09/03/18 11:00 Dose: 25 mg Metoprolol Tartrate (Lopressor) 5 mg IVPUSH Q6H [facility] Last Admin: 09/08/18 09:25 Dose: 5 mg Metoprolol Tartrate (Lopressor) 2.5 mg IVPUSH Q6H [facility] Last Admin: 09/10/18 03:55 Dose: 2.5 mg Metoprolol Tartrate (Lopressor) Confirm Administered Dose 5 mg .ROUTE .STK-MED ONE Stop: 09/08/18 21:53 Last Admin: 09/08/18 22:19 Dose: Not Given Neostigmine Methylsulfate (Neostigmine) Confirm Administered Dose 5 mg .ROUTE .STK-MED ONE Stop: 09/03/18 14:41 Neostigmine Methylsulfate (Neostigmine) Confirm Administered Dose 5 mg .ROUTE .STK-MED ONE Stop: 09/04/18 09:47 Ondansetron HCl (Zofran Odt) 4 mg PO Q6H PRN PRN Reason: Nausea able to take PO Ondansetron HCl (Zofran) 4 mg IV Q6H PRN PRN Reason: Nausea/Vomiting Ondansetron HCl (Zofran) Confirm Administered Dose 4 mg .ROUTE .STK-MED ONE Stop: 09/03/18 14:41 Ondansetron HCl (Zofran) Confirm Administered Dose 4 mg .ROUTE .STK-MED ONE Stop: 09/04/18 09:47 Pantoprazole Sodium (Protonix Iv) 40 mg IV Q12H [facility] Last Admin: 09/03/18 16:07 Dose: 40 mg Piperacillin Sod/Tazobactam Sod (Zosyn) 10.125 gm .XX ASDIRECTED [facility] Stop: 09/04/18 15:00 Last Admin: 09/04/18 14:04 Dose: 10.125 gm Propofol (Diprivan 20 Ml) Confirm Administered Dose 200 mg .ROUTE .STK-MED ONE Stop: 09/03/18 14:41 Propofol (Diprivan 20 Ml) Confirm Administered Dose 200 mg .ROUTE .STK-MED ONE Stop: 09/04/18 09:47 Propofol (Diprivan 20 Ml) Confirm Administered Dose 200 mg .ROUTE .STK-MED ONE Stop: 09/06/18 07:01 Rocuronium [place] (Zemuron) Confirm Administered Dose 50 mg .ROUTE .STK-MED ONE Stop: 09/03/18 14:41 Rocuronium [place] (Zemuron) Confirm Administered Dose 50 mg .ROUTE .STK-MED ONE Stop: 09/04/18 09:47 Succinylcholine Chloride (Quelicin) Confirm Administered Dose 200 mg .ROUTE .STK -MED ONE Stop: 09/03/18 14:41 Succinylcholine Chloride (Quelicin) Confirm Administered Dose 200 mg .ROUTE .STK -MED ONE Stop: 09/04/18 09:47 Succinylcholine Chloride (Quelicin) Confirm Administered Dose 200 mg .ROUTE .STK -MED ONE Stop: 09/06/18 07:01 - Exam Quality Assessment: Supplemental Oxygen (Ventilator), Central Line/PICC, Urine Catheter, DVT Prophylaxis Lungs: Decreased Breath Sounds, Rales, Rhonchi Cardiovascular: Regular Rhythm, No Murmurs, Tachycardia GI/Abdominal Exam: Soft, No Organomegaly. No: Distended, Guarding, Rigid Extremities: Pedal Edema - Problem List Review Problem List Initiated/Reviewed/Updated: Yes - My Orders Last 24 Hours: My Active Orders 09/10/18 08:30 Metoprolol Tartrate [Lopressor] 2.5 mg IVPUSH Q4H 09/10/18 12:30 VANCOMYCIN TROUGH [CHEM] Routine 09/10/18 15:00 Azithromycin [Zithromax] 500 mg Dextrose 5% in Water 250 ml IV Q24H 09/11/18 04:00 Chest 1V Frontal [CR] DAILY 09/11/18 16:00 Gentamicin 228 mg Sodium Chloride 0.9% [Normal Saline] 50 ml IV Q36H 09/12/18 04:00 Chest 1V Frontal [CR] DAILY 09/13/18 04:00 Chest 1V Frontal [CR] DAILY 09/14/18 04:00 Chest 1V Frontal [CR] DAILY - Plan Plan:: ASSESSMENT AND PLAN Perforated sigmoid colon with sepsis - Initial surgical resection on 09/03 and Second Look laparotomy on 09/04. Sepsis has resolved. Cultures growing Klebsiella , Escherichia coli and anaerobic bacteria. No fevers white blood cell count elevated at 22,500. CT scan abdomen and pelvis shows no evidence of abscess present. -Continue Meropenem, and vancomycin, pending culture results -Pain control with POSITION DESCRIPTION MANAGER -Follow-up cultures Acute respiratory failure with hypoxia and hypercapnia - CT scan abdomen and pelvis obtained 09/08 shows evidence of bilateral pulmonary infiltrates consistent with infection, antibiotics have been changed to cover for pulmonary infection. There may also be component of ARDS developing. -Continue gentamicin and azithromycin -Continue mechanical ventilation, she has required increased level of supplemental oxygen as well as PEEP maintain adequate oxygenation -Sedation is needed to avoid significant agitation -Soft wrist restraints -Optimize volume status -Old and further spontaneous breathing trials until respiratory status has stabilized Acute kidney injury - renal function improved and stable -Management as above -Repeat labs in the morning Hyperactive delirium -She is now sedated with her intubation. -Symptomatically management and treatment of the above conditions Maintenance issues - - DVT prophylaxis - mechanical - GI prophylaxis - PPI - Nutrition - nothing by mouth - Rubin catheter - placed for strict intake and output monitoring and a critical patient Disposition - I would anticipate discharge home after the hospital stay
[2018-09-10] MEDS: SODIUM CHLORIDE 0.9% IV SCH ×2 (14:44→21:58)
[2018-09-10] MEDS: MEROPENEM IV SCH ×2 (14:44→21:58)
[2018-09-10] MEDS: 1: AA 5%/Calcium/D20W/Lytes 1,000 ML with MVI, Adult with Vitamin K 10 ML, Chromium/Copp IV SCH ×3 (14:48)
[2018-09-10] MEDS: hydrALAZINE 20 MG/ML SDV IVPUSH PRN (15:44)
[2018-09-10] MEDS: Heparin Sodium 5,000 UNITS in Sodium Chloride 0.9% 500 ML IV SCH ×2 (17:25→17:26)
[2018-09-10] MEDS: Fluconazole/Normal Saline 200 MG in Premix Bag 1 BAG IV SCH (20:03)
[2018-09-10] MEDS: Pantoprazole 40 MG Vial IV SCH (21:58)
[2018-09-11] MEDS: Lactated Ringers 1,000 ML IV SCH ×2 (01:06→17:33)
[2018-09-11] MEDS: Metoprolol Tartrate 5 MG/5 ML SDV IVPUSH SCH ×5 (04:04→21:25)
--- NOTE | 2018-09-11 05:14 | CRLCR ---
Indication: Respiratory failure Technique: Chest 1 view Comparison: September 10, 2028 Findings/Impression: Endotracheal tube tip terminates 5.6 cm above the level of the pham. A left subclavian central venous catheter tip courses along the expected location of the left internal jugular vein. This has been discussed with the provider. A gastric drainage tube tip courses below the level of the left hemidiaphragm. Slight improvement in right upper lobe patchy infiltrate. Persistent bibasilar infiltrates and small left pleural effusion. No pneumothorax. Stable cardiac size. Dictated by Suzanne Melendez MD @ Sep 11 2018 5:12AM Signed by Dr. Suzanne Melendez @ Sep 11 2018 5:12AM
[2018-09-11] MEDS: MEROPENEM IV SCH ×3 (05:36→22:45)
[2018-09-11] MEDS: SODIUM CHLORIDE 0.9% IV SCH ×4 (05:36→22:45)
[2018-09-11] MEDS: 1: AA 5%/Calcium/D20W/Lytes 1,000 ML with MVI, Adult with Vitamin K 10 ML, Chromium/Copp IV SCH ×6 (06:40→22:56)
[2018-09-11] MEDS: Furosemide 20 MG/2 ML VIAL IV SCH ×3 (08:29→23:34)
[2018-09-11] MEDS ORDERED: Bupivacaine 0.5% 50 ML MDV ONE (09:06)
[2018-09-11] MEDS ORDERED: Lidocaine 1% with EPINEPHrine 1:100,000 50 ML MDV ONE (09:06)
--- NOTE | 2018-09-11 09:43 | PCM.SURGPN ---
- General Info Date of Service: 09/11/18 POD#: 8 - Review of Systems Systems Review Comment:: Tina Muniz is currently on postoperative day #8 from the original exploratory laparotomy surgery. She is sedated in order to tolerate ventilation and is not able to provide symptoms or a review of systems. She has failed previous weaning trials. Central venous pressures are around 20. Labs show total bilirubin is stable at 1.2. Chloride is 111. Total intake was 4244 mL, total output was 3856 mL. Total intake through IV was 4244 mL. Output through Rubin catheter 3006 mL. Output through NG tube was 350 mL. Vital signs show continue to show tachycardia. - Patient Data Vitals - Most Recent: Last Vital Signs Temp 35.9 C 09/11/18 08:00 Pulse 102 H 09/11/18 09:00 Resp 24 H 09/11/18 09:00 BP 142/69 H 09/11/18 09:00 Pulse Ox 100 09/11/18 09:00 Weight - Most Recent: 45.359 kg I&O - Last 24 Hours: Intake & Output 09/10/18 09/11/18 09/11/18 22:59 06:59 14:59 Intake Total 1765 2479 Output Total 956 1840 320 Balance 809 639 -320 Lab Results Last 24 Hrs: Laboratory Results - last 24 hr 09/10/18 09/11/18 09/11/18 Range/Units 12:26 04:24 04:24 WBC 25.6 H (4.5-11.0) K/uL RBC 3.21 L (3.30-5.50) M/uL Hgb 10.4 L (12.0-15.0) g/dL Hct 31.8 L (36.0-48.0) % MCV 99 H (80-98) fL MCH 32 H (27-31) pg MCHC 33 (32-36) % Plt Count 343 (150-400) K/uL Puncture Site Line ABG pH 7.500 H (7.350-7.450) ABG pCO2 36.1 (35.0-42.0) mmHg ABG pO2 77.5 (75.0-100.0) mmHg ABG HCO3 27.9 H (22.0-26.0) mmol/L ABG Total CO2 25.2 H (21.0-25.0) mmol/L ABG O2 Saturation 95.4 (95.0-98.0) % ABG O2 Content 14.2 L (15.0-23.0) %vol ABG Base Excess 4.9 mm/L ABG Hemoglobin 10.8 L (12.0-16.0) g/dL ABG Oxyhemoglobin 93.6 % ABG Carboxyhemoglobin 1.3 (0.0-1.6) % ABG Methemoglobin 0.6 % O2 Delivery Device Ventilator Oxygen Flow Rate L Sodium (140-148) mmol/L Potassium (3.6-5.2) mmol/L Chloride (100-108) mmol/L Carbon Dioxide (21-32) mmol/L Anion Gap (5.0-14.0) mmol/L BUN (7-18) mg/dL Creatinine (0.6-1.0) mg/dL Est Cr Clr Drug Dosing mL/min Estimated GFR (MDRD) (>60) Glucose (74-106) mg/dL Calcium (8.5-10.1) mg/dL Phosphorus (2.5-4.9) mg/dL Magnesium (1.8-2.4) mg/dL Total Bilirubin (0.2-1.0) mg/dL AST (15-37) U/L ALT (12-78) U/L Alkaline Phosphatase (46-116) U/L NT-Pro-B Natriuret Pep (5-450) pg/mL Total Protein (6.4-8.2) g/dL Albumin (3.4-5.0) g/dL Globulin (2.3-3.5) g/dL Albumin/Globulin Ratio (1.2-2.2) Vancomycin Trough 19.5 (10.0-20.0) ug/mL 09/11/18 Range/Units 04:24 WBC (4.5-11.0) K/uL RBC (3.30-5.50) M/uL Hgb (12.0-15.0) g/dL Hct (36.0-48.0) % MCV (80-98) fL MCH (27-31) pg MCHC (32-36) % Plt Count (150-400) K/uL Puncture Site ABG pH (7.350-7.450) ABG pCO2 (35.0-42.0) mmHg ABG pO2 (75.0-100.0) mmHg ABG HCO3 (22.0-26.0) mmol/L ABG Total CO2 (21.0-25.0) mmol/L ABG O2 Saturation (95.0-98.0) % ABG O2 Content (15.0-23.0) %vol ABG Base Excess mm/L ABG Hemoglobin (12.0-16.0) g/dL ABG Oxyhemoglobin % ABG Carboxyhemoglobin (0.0-1.6) % ABG Methemoglobin % O2 Delivery Device Oxygen Flow Rate L Sodium 148 (140-148) mmol/L Potassium 3.6 (3.6-5.2) mmol/L Chloride 111 H (100-108) mmol/L Carbon Dioxide 28 (21-32) mmol/L Anion Gap 12.6 (5.0-14.0) mmol/L BUN 51 H (7-18) mg/dL Creatinine 0.8 (0.6-1.0) mg/dL Est Cr Clr Drug Dosing 41.50 mL/min Estimated GFR (MDRD) > 60 (>60) Glucose 145 H (74-106) mg/dL Calcium 8.5 (8.5-10.1) mg/dL Phosphorus 3.5 (2.5-4.9) mg/dL Magnesium 1.6 L (1.8-2.4) mg/dL Total Bilirubin 1.2 H (0.2-1.0) mg/dL AST 99 H (15-37) U/L ALT 124 H (12-78) U/L Alkaline Phosphatase 117 H (46-116) U/L NT-Pro-B Natriuret Pep 08821 H (5-450) pg/mL Total Protein 5.4 L (6.4-8.2) g/dL Albumin 2.0 L (3.4-5.0) g/dL Globulin 3.4 (2.3-3.5) g/dL Albumin/Globulin Ratio 0.6 L (1.2-2.2) Vancomycin Trough (10.0-20.0) ug/mL Med Orders - Current: Current Medications Furosemide (Lasix) 20 mg IV Q8H [facility] Stop: 09/12/18 00:01 Last Admin: 09/11/18 08:29 Dose: 20 mg Hydralazine HCl (Apresoline) 5 mg IVPUSH Q4H PRN PRN Reason: Hypertension Last Admin: 09/10/18 15:44 Dose: 5 mg Hydromorphone HCl (Dilaudid [employer] Aide 15 Mg In Ns 30 Ml) 0 mg IV ASDIRECTED PRN; Protocol 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 Last Admin: 09/09/18 05:52 Dose: 15 mg Hydroxyzine HCl (Vistaril) 50 mg IM Q4H PRN PRN Reason: Pain Heparin Sodium (Porcine) 5,000 (units/ Sodium Chloride) 501 mls @ 5 mls/hr IV ASDIRECTED [facility] Last Admin: 09/10/18 17:25 Dose: 5 mls/hr Heparin Sodium (Porcine) 5,000 (units/ Sodium Chloride) 501 mls @ 5 mls/hr IV ASDIRECTED [facility] Last Admin: 09/10/18 17:26 Dose: 5 mls/hr Propofol (Diprivan 100 Ml) 100 mls @ 1.361 mls/hr IV TITRATE [facility]; Protocol Last Admin: 09/11/18 01:15 Dose: 20 mcg/kg/min, 5.443 mls/hr Sodium Chloride (Normal Saline) 1,000 mls @ 0 mls/hr IV ASDIRECTED [facility] Last Admin: 09/10/18 14:57 Dose: 12.5 mls/hr Multivitamins/Minerals 10 ml/Chromium/Copper/Manganese/Seleni/Zn 1 ml/ Amino Ac/ Electrol/Dextrose/Calcium 1,011 mls @ 62 mls/hr IV .BY DURATION [facility] Last Admin: 09/11/18 06:40 Dose: 62 mls/hr Amino Ac/Electrol/Dextrose/Calcium (Clinimix E 5/20) 1,000 mls @ 62 mls/hr IV .BY DURATION [facility] Last Admin: 09/10/18 14:48 Dose: 62 mls/hr Lactated Ringer's (Ringers, Lactated) 1,000 mls @ 125 mls/hr IV ASDIRECTED [facility] Last Admin: 09/11/18 01:06 Dose: 125 mls/hr Meropenem 500 mg/ Sodium (Chloride) 25 mls @ 50 mls/hr IV Q8H [facility] Last Admin: 09/11/18 05:36 Dose: 50 mls/hr Gentamicin Sulfate 228 mg/ (Sodium Chloride) 55.7 mls @ 55 mls/hr IV Q36H [facility] Azithromycin 500 mg/ Dextrose/ (Water) 250 mls @ 250 mls/hr IV Q24H [facility] Last Admin: 09/10/18 15:33 Dose: 250 mls/hr Vancomycin HCl 1 gm/ Dextrose/ (Water) 250 mls @ 167 mls/hr IV Q24H [facility] Last Admin: 09/10/18 18:18 Dose: 167 mls/hr Fluconazole/Sodium Chloride (200 mg/ Premix) 100 mls @ 100 mls/hr IV Q24H [facility] Last Admin: 09/10/18 20:03 Dose: 100 mls/hr Magnesium Sulfate 2 gm/ Premix 50 mls @ 25 mls/hr IV Q6H [facility] Stop: 09/13/18 05:59 Potassium Phosphate 22.5 mmole (/ Dextrose/Water) 107.5 mls @ 27 mls/hr IV Q4H [facility] Stop: 09/11/18 17:29 Lorazepam (Ativan) 0.5 mg IVPUSH Q3H PRN PRN Reason: AGITATION Last Admin: 09/05/18 03:50 Dose: 0.25 mg Metoprolol Tartrate (Lopressor) 2.5 mg IVPUSH Q4H [facility] Last Admin: 09/11/18 08:41 Dose: 2.5 mg Naloxone HCl (Narcan) 0.1 mg IV ASDIRECTED PRN PRN Reason: decreased respiratory rate Pantoprazole Sodium (Protonix Iv) 40 mg IV Q24H [facility] Last Admin: 09/10/18 21:58 Dose: 40 mg Discontinued Medications Acetaminophen (Tylenol) 650 mg PO Q4H PRN PRN Reason: Pain (Mild 1-3)/fever Acetaminophen (Tylenol) 650 mg RECTAL Q4H PRN PRN Reason: Mild pain/fever Albuterol (Proventil Neb Soln) 2.5 mg NEB Q4H PRN PRN Reason: Shortness Of Breath/wheezing Albuterol/Ipratropium (Duoneb 3.0-0.5 Mg/3 Ml) 3 ml INH PREPRO ONE Stop: 09/03/18 17:01 Last Admin: 09/03/18 16:25 Dose: 3 ml Aztreonam (Azactam) Confirm Administered Dose 1 gm .ROUTE .STK-MED ONE Stop: 09/03/18 21:44 Last Admin: 09/03/18 22:15 Dose: Not Given Benazepril HCl (Lotensin) 40 mg PO ONETIME ONE Stop: 09/03/18 10:41 Last Admin: 09/03/18 11:00 Dose: 40 mg Bupivacaine HCl (Marcaine 0.5%) Confirm Administered Dose 50 ml .ROUTE .STK-MED ONE Stop: 09/07/18 06:48 Last Admin: 09/07/18 10:53 Dose: 18 ml Bupivacaine HCl (Marcaine 0.5%) Confirm Administered Dose 50 ml .ROUTE .STK-MED ONE Stop: 09/11/18 09:07 Ropivacaine 22 ml/Dexamethasone 8 mg/Epinephrine HCl 0.4 mg/ Sodium Chloride 55.6 ml 0 ml NERVRT ASDIRECTED [facility] Ropivacaine 22 ml/Dexamethasone 8 mg/Epinephrine HCl 0.4 mg/ Sodium Chloride 55.6 ml 0 ml NERVRT ASDIRECTED [facility] Last Admin: 09/04/18 14:03 Dose: 80 syringe Ropivacaine 22 ml/Dexamethasone 8 mg/Epinephrine HCl 0.4 mg/ Sodium Chloride 55.6 ml 0 ml NERVRT ASDIRECTED [facility] Last Admin: 09/07/18 11:07 Dose: 80 syringe Dexamethasone (Dexamethasone) Confirm Administered Dose 4 mg .ROUTE .STK-MED ONE Stop: 09/03/18 14:41 Dexamethasone (Dexamethasone) Confirm Administered Dose 4 mg .ROUTE .STK-MED ONE Stop: 09/04/18 09:47 Fentanyl (Sublimaze) 25 mcg IVPUSH ONETIME ONE Stop: 09/03/18 13:57 Last Admin: 09/03/18 14:16 Dose: 25 mcg Fentanyl (Sublimaze) 25 mcg IVPUSH Q2H PRN PRN Reason: Pain (severe 7-10) Fentanyl (Sublimaze) Confirm Administered Dose 250 mcg .ROUTE .STK-MED ONE Stop: 09/03/18 14:41 Fentanyl (Sublimaze) Confirm Administered Dose 250 mcg .ROUTE .STK-MED ONE Stop: 09/04/18 09:46 Fentanyl (Sublimaze) Confirm Administered Dose 250 mcg .ROUTE .STK-MED ONE Stop: 09/04/18 13:57 Furosemide (Lasix) 20 mg IVPUSH ONETIME ONE Stop: 09/04/18 15:10 Last Admin: 09/04/18 15:18 Dose: 20 mg Furosemide (Lasix) 40 mg IV ONETIME ONE Stop: 09/06/18 08:16 Last Admin: 09/06/18 08:26 Dose: 40 mg Furosemide (Lasix) 20 mg IV Q12H [facility] Stop: 09/07/18 20:01 Last Admin: 09/07/18 20:10 Dose: 20 mg Furosemide (Lasix) 20 mg IVPUSH Q12H [facility] Stop: 09/08/18 19:01 Last Admin: 09/08/18 19:50 Dose: 20 mg Furosemide (Lasix) 20 mg IVPUSH ONETIME ONE Stop: 09/09/18 07:01 Last Admin: 09/09/18 08:14 Dose: 20 mg Furosemide (Lasix) 20 mg IVPUSH ONETIME ONE Stop: 09/09/18 11:01 Last Admin: 09/09/18 12:38 Dose: 20 mg Furosemide (Lasix) 20 mg IVPUSH ONETIME ONE Stop: 09/09/18 20:01 Furosemide (Lasix) 20 mg IV Q8H [facility] Stop: 09/11/18 00:31 Last Admin: 09/10/18 23:50 Dose: 20 mg Gentamicin Sulfate (Gentamicin) 1 mg IV .Pharmacy to Dose [facility] Stop: 09/08/18 14:31 Glycopyrrolate (Robinul) Confirm Administered Dose 1 mg .ROUTE .STK-MED ONE Stop: 09/03/18 14:41 Glycopyrrolate (Robinul) Confirm Administered Dose 1 mg .ROUTE .STK-MED ONE Stop: 09/04/18 09:47 Heparin Sodium (Porcine) (Heparin Sodium) Confirm Administered Dose 5,000 units .ROUTE .STK-MED ONE Stop: 09/03/18 18:32 Heparin Sodium (Porcine) (Heparin Lock Flush 100 Units/Ml) Confirm Administered Dose 500 units .ROUTE .STK-MED ONE Stop: 09/04/18 13:14 Heparin Sodium (Porcine) (Heparin Lock Flush 100 Units/Ml) Confirm Administered Dose 1,000 units .ROUTE .STK-MED ONE Stop: 09/11/18 09:07 Hydromorphone HCl (Dilaudid) 0.5 mg IVPUSH ONETIME ONE Stop: 09/03/18 10:48 Last Admin: 09/03/18 11:00 Dose: 0.5 mg Hydromorphone HCl (Dilaudid) 0.5 mg IVPUSH ONETIME ONE Stop: 09/03/18 11:22 Last Admin: 09/03/18 11:25 Dose: 0.5 mg Hydromorphone HCl (Dilaudid) 0.5 mg IVPUSH ONETIME ONE Stop: 09/03/18 12:10 Last Admin: 09/03/18 12:12 Dose: 0.5 mg Hydromorphone HCl (Dilaudid) 0.5 mg IVPUSH ONETIME ONE Stop: 09/03/18 12:40 Last Admin: 09/03/18 12:44 Dose: 0.5 mg Hydromorphone HCl (Dilaudid) 1 mg IVPUSH ONETIME ONE Stop: 09/03/18 12:57 Last Admin: 09/03/18 13:00 Dose: 1 mg Sodium Chloride (Normal Saline) 1,000 mls @ 1,000 mls/hr IV .BOLUS ONE Stop: 09/03/18 12:17 Last Admin: 09/03/18 11:25 Dose: 1,000 mls/hr Piperacillin/Tazobactam/ (Dextrose 4.5 gm/ Premix) 100 mls @ 200 mls/hr IV ONETIME ONE Stop: 09/03/18 13:29 Last Admin: 09/03/18 13:04 Dose: 200 mls/hr Sodium Chloride (Normal Saline) 1,000 mls @ 500 mls/hr IV ASDIRECTED [facility] Last Admin: 09/03/18 13:00 Dose: 500 mls/hr Lactated Ringer's (Ringers, Lactated) 1,000 mls @ 125 mls/hr IV ASDIRECTED [facility] Last Admin: 09/03/18 16:07 Dose: 125 mls/hr Aztreonam 2 gm/ Sodium (Chloride) 100 mls @ 200 mls/hr IV NOW ONE Stop: 09/03/18 15:29 Last Admin: 09/03/18 14:56 Dose: 200 mls/hr Meropenem 500 mg/ Sodium (Chloride) 50 mls @ 100 mls/hr IV ONCALL ONE Stop: 09/03/18 17:29 Last Admin: 09/03/18 16:25 Dose: 100 mls/hr Piperacillin/Tazobactam/ (Dextrose 3.375 gm/ Premix) 50 mls @ 100 mls/hr IV Q6H [facility] Last Admin: 09/03/18 22:15 Dose: Not Given Sodium Chloride (Normal Saline) Confirm Administered Dose 500 mls @ as directed .ROUTE .STK-MED ONE Stop: 09/03/18 18:33 Aztreonam/Dextrose 1 gm/ (Premix) 50 mls @ 100 mls/hr IV Q8HR [facility] Meropenem 500 mg/ Sodium (Chloride) 50 mls @ 100 mls/hr IV Q8H [facility] Last Admin: 09/10/18 05:17 Dose: 100 mls/hr Sodium Chloride (Normal Saline) Confirm Administered Dose 50 mls @ as directed .ROUTE .[facility]-MED ONE Stop: 09/03/18 22:01 Last Admin: 09/03/18 22:21 Dose: Not Given Aztreonam/Dextrose 1 gm/ (Premix) 50 mls @ 100 mls/hr IV Q8H [facility] Last Admin: 09/04/18 07:30 Dose: Not Given Dextrose/Lactated Ringer's (Dextrose 5%-Lactated Ringers) 1,000 mls @ 100 mls/ hr IV ASDIRECTED PRN PRN Reason: Hypotension Dextrose/Lactated Ringer's (Dextrose 5%-Lactated Ringers) 1,000 mls @ 100 mls/ hr IV ASDIRECTED [facility] Last Admin: 09/05/18 02:13 Dose: 100 mls/hr Lactated Ringer's (Ringers, Lactated) 1,000 mls @ 100 mls/hr IV ASDIRECTED [facility] Last Admin: 09/04/18 04:20 Dose: 100 mls/hr Lactated Ringer's (Ringers, Lactated) 500 mls @ 500 mls/hr IV .BOLUS [facility] Last Admin: 09/04/18 01:10 Dose: 500 mls/hr Lactated Ringer's (Ringers, Lactated) 500 mls @ 500 mls/hr IV .BOLUS [facility] Last Admin: 09/04/18 03:13 Dose: 500 mls/hr Propofol (Diprivan 100 Ml) 100 mls @ 1.361 mls/hr IV TITRATE [facility]; Protocol Last Titration: 09/04/18 07:52 Dose: 14 mcg/kg/min, 3.81 mls/hr Propofol (Diprivan 100 Ml) Confirm Administered Dose 100 mls @ as directed .ROUTE .STK-MED ONE Stop: 09/04/18 03:45 Last Admin: 09/04/18 03:59 Dose: Not Given Lactated Ringer's (Ringers, Lactated) 500 mls @ 999 mls/hr IV .BOLUS [facility] Last Admin: 09/04/18 06:10 Dose: 999 mls/hr Aztreonam/Dextrose 1 gm/ (Premix) 50 mls @ 100 mls/hr IV Q8H [facility] Last Admin: 09/07/18 08:15 Dose: 100 mls/hr Lactated Ringer's (Ringers, Lactated) 500 mls @ 500 mls/hr IV ASDIRECTED [facility] Last Admin: 09/04/18 21:04 Dose: 500 mls/hr Lactated Ringer's (Ringers, Lactated) Confirm Administered Dose 1,000 mls @ as directed .ROUTE .[facility]-MED ONE Stop: 09/04/18 13:11 Lactated Ringer's (Ringers, Lactated) Confirm Administered Dose 1,000 mls @ as directed .ROUTE .K-MED ONE Stop: 09/04/18 13:11 Sodium Chloride (Normal Saline) Confirm Administered Dose 10 mls @ as directed .ROUTE .K-MED ONE Stop: 09/04/18 13:15 Magnesium Sulfate 2 gm/ Premix 50 mls @ 25 mls/hr IV Q6H [facility] Stop: 09/06/18 11:59 Last Admin: 09/06/18 10:17 Dose: 25 mls/hr Lactated Ringer's (Ringers, Lactated) 500 mls @ 500 mls/hr IV ASDIRECTED [facility] Stop: 09/04/18 17:46 Lactated Ringer's (Ringers, Lactated) 500 mls @ 500 mls/hr IV ONETIME ONE Stop: 09/04/18 19:29 Last Admin: 09/04/18 18:37 Dose: 500 mls/hr Lactated Ringer's (Ringers, Lactated) 500 mls @ 1,000 mls/hr IV ONETIME ONE Stop: 09/04/18 23:30 Last Admin: 09/04/18 23:18 Dose: 1,000 mls/hr Lactated Ringer's (Ringers, Lactated) 500 mls @ 1,000 mls/hr IV ONETIME ONE Stop: 09/05/18 01:44 Last Admin: 09/05/18 01:15 Dose: 1,000 mls/hr Lactated Ringer's (Ringers, Lactated) 1,000 mls @ 150 mls/hr IV ASDIRECTED [facility] Last Admin: 09/05/18 02:13 Dose: 150 mls/hr Lactated Ringer's (Ringers, Lactated) 500 mls @ 1,000 mls/hr IV ONETIME ONE Stop: 09/05/18 03:38 Last Admin: 09/05/18 03:15 Dose: 1,000 mls/hr Multivitamins/Minerals 10 ml/Chromium/Copper/Manganese/Seleni/Zn 1 ml/ Amino Ac/ Electrol/Dextrose/Calcium 2,011 mls @ 82 mls/hr IV .BY DURATION [facility] Stop: 09/05/18 13:25 Last Admin: 09/05/18 13:32 Dose: Not Given Amino Ac/Electrol/Dextrose/Calcium (Clinimix E 5/15) 2,000 mls @ 82 mls/hr IV .BY DURATION [facility] Stop: 09/05/18 13:25 Vancomycin HCl 1 gm/ Sodium (Chloride) 250 mls @ 167 mls/hr IV Q24H [facility] Last Admin: 09/05/18 12:34 Dose: 167 mls/hr Sodium Chloride (Normal Saline) 1,000 mls @ 50 mls/hr IV ASDIRECTED [facility] Last Admin: 09/05/18 12:51 Dose: 50 mls/hr Multivitamins/Minerals 10 ml/Chromium/Copper/Manganese/Seleni/Zn 1 ml/ Amino Ac/ Electrol/Dextrose/Calcium 2,011 mls @ 82 mls/hr IV .BY DURATION [facility] Stop: 09/08/18 13:20 Last Admin: 09/07/18 15:09 Dose: 82 mls/hr Amino Ac/Electrol/Dextrose/Calcium (Clinimix E 5/15) 2,000 mls @ 82 mls/hr IV .BY DURATION [facility] Stop: 09/08/18 13:20 Vancomycin HCl 1 gm/ Sodium (Chloride) 250 mls @ 167 mls/hr IV Q24H [facility] Last Admin: 09/06/18 12:00 Dose: 167 mls/hr Sodium Chloride (Normal Saline) 500 mls @ 500 mls/hr IV ASDIRECTED ONE Stop: 09/05/18 16:29 Last Admin: 09/05/18 15:40 Dose: 500 mls/hr Sodium Chloride (Normal Saline) 1,000 mls @ 100 mls/hr IV ASDIRECTED [facility] Last Admin: 09/07/18 07:31 Dose: 100 mls/hr Potassium Phosphate 20 mmole/ (Sodium Chloride) 106.6667 mls @ 35 mls/hr IV Q3H [facility] Stop: 09/07/18 17:29 Last Admin: 09/07/18 15:01 Dose: 35 mls/hr Albumin Human (Albumin 25%) 25 gm in 100 mls @ 25 mls/hr IV DAILY [facility] Stop: 09/09/18 12:59 Last Admin: 09/09/18 08:25 Dose: 25 mls/hr Albumin Human (Albumin 25%) 25 gm in 100 mls @ 25 mls/hr IV Q24H [facility] Stop: 09/09/18 17:59 Last Admin: 09/09/18 14:32 Dose: 25 mls/hr Aztreonam 1 gm/ Sodium (Chloride) 50 mls @ 100 mls/hr IV Q8H [facility] Last Admin: 09/08/18 09:41 Dose: 100 mls/hr Vancomycin HCl 1 gm/ Sodium (Chloride) 250 mls @ 167 mls/hr IV Q18H [facility] Last Admin: 09/09/18 18:42 Dose: 167 mls/hr Sodium Chloride (Normal Saline) 1,000 mls @ 999 mls/hr IV .BOLUS ONE Stop: 09/07/18 17:39 Last Admin: 09/07/18 17:26 Dose: 999 mls/hr Potassium Acetate 40 meq/ (Sodium Chloride) 120 mls @ 30 mls/hr IV ONETIME ONE Stop: 09/08/18 13:59 Last Admin: 09/08/18 09:44 Dose: 30 mls/hr Sodium Chloride (Normal Saline) 100 mls @ 3 mls/sec IV ASDIRECTED [facility] Stop: 09/08/18 15:00 Last Admin: 09/08/18 14:17 Dose: 3 mls/sec Azithromycin 500 mg/ Sodium (Chloride) 250 mls @ 250 mls/hr IV Q24H [facility] Last Admin: 09/09/18 15:27 Dose: 250 mls/hr Gentamicin Sulfate 228 mg/ (Sodium Chloride) 105.7 mls @ 100 mls/hr IV ONETIME ONE Stop: 09/08/18 17:03 Last Admin: 09/08/18 16:19 Dose: 100 mls/hr Potassium Phosphate 15 mmole/ (Sodium Chloride) 105 mls @ 55 mls/hr IV Q2H [facility] Stop: 09/09/18 12:55 Last Admin: 09/09/18 15:27 Dose: 55 mls/hr Gentamicin Sulfate 228 mg/ (Sodium Chloride) 105.7 mls @ 100 mls/hr IV Q36H [facility] Last Admin: 09/10/18 03:55 Dose: 100 mls/hr Sodium Chloride (Normal Saline) 500 mls @ 999 mls/hr IV .BOLUS ONE Stop: 09/09/18 16:34 Last Admin: 09/09/18 16:18 Dose: 999 mls/hr Sodium Chloride (Normal Saline) 500 mls @ 999 mls/hr IV .BOLUS ONE Stop: 09/09/18 17:35 Last Admin: 09/09/18 17:18 Dose: 999 mls/hr Sodium Chloride (Normal Saline) 1,000 mls @ 125 mls/hr IV ASDIRECTED [facility] Last Admin: 09/10/18 01:41 Dose: 125 mls/hr Iopamidol (Isovue-300 (61%)) 100 ml IV . DIRECTED PRN PRN Reason: RADIOLOGY EXAM Stop: 09/09/18 11:03 Last Admin: 09/08/18 14:16 Dose: 100 ml Lidocaine/Epinephrine (Xylocaine 1% With Epinephrine 1:100,000) Confirm Administered Dose 50 ml .ROUTE .STK-MED ONE Stop: 09/07/18 06:48 Last Admin: 09/07/18 10:54 Dose: 18 ml Lidocaine/Epinephrine (Xylocaine 1% With Epinephrine 1:100,000) Confirm Administered Dose 50 ml .ROUTE .STK-MED ONE Stop: 09/11/18 09:07 Lorazepam (Ativan) 0.5 mg IVPUSH Q4H PRN PRN Reason: Nausea/Vomiting Meropenem (Merrem) Confirm Administered Dose 1,000 mg .ROUTE .STK-MED ONE Stop: 09/03/18 17:54 Last Admin: 09/03/18 18:32 Dose: 3,500 mg Meropenem (Merrem) Confirm Administered Dose 1,000 mg .ROUTE .STK-MED ONE Stop: 09/03/18 18:04 Meropenem (Merrem) Confirm Administered Dose 2,000 mg .ROUTE .STK-MED ONE Stop: 09/03/18 18:18 Meropenem (Merrem) Confirm Administered Dose 500 mg .ROUTE .STK-MED ONE Stop: 09/07/18 06:48 Last Admin: 09/07/18 10:53 Dose: 500 mg Metoprolol Tartrate (Lopressor) 25 mg PO ONETIME ONE Stop: 09/03/18 10:41 Last Admin: 09/03/18 11:00 Dose: 25 mg Metoprolol Tartrate (Lopressor) 5 mg IVPUSH Q6H NAHED Last Admin: 09/08/18 09:25 Dose: 5 mg Metoprolol Tartrate (Lopressor) 2.5 mg IVPUSH Q6H NAHED Last Admin: 09/10/18 03:55 Dose: 2.5 mg Metoprolol Tartrate (Lopressor) Confirm Administered Dose 5 mg .ROUTE .STK-MED ONE Stop: 09/08/18 21:53 Last Admin: 09/08/18 22:19 Dose: Not Given Neostigmine Methylsulfate (Neostigmine) Confirm Administered Dose 5 mg .ROUTE .STK-MED ONE Stop: 09/03/18 14:41 Neostigmine Methylsulfate (Neostigmine) Confirm Administered Dose 5 mg .ROUTE .STK-MED ONE Stop: 09/04/18 09:47 Ondansetron HCl (Zofran Odt) 4 mg PO Q6H PRN PRN Reason: Nausea able to take PO Ondansetron HCl (Zofran) 4 mg IV Q6H PRN PRN Reason: Nausea/Vomiting Ondansetron HCl (Zofran) Confirm Administered Dose 4 mg .ROUTE .STK-MED ONE Stop: 09/03/18 14:41 Ondansetron HCl (Zofran) Confirm Administered Dose 4 mg .ROUTE .STK-MED ONE Stop: 09/04/18 09:47 Pantoprazole Sodium (Protonix Iv) 40 mg IV Q12H [facility] Last Admin: 09/03/18 16:07 Dose: 40 mg Piperacillin Sod/Tazobactam Sod (Zosyn) 10.125 gm .XX ASDIRECTED [facility] Stop: 09/04/18 15:00 Last Admin: 09/04/18 14:04 Dose: 10.125 gm Propofol (Diprivan 20 Ml) Confirm Administered Dose 200 mg .ROUTE .STK-MED ONE Stop: 09/03/18 14:41 Propofol (Diprivan 20 Ml) Confirm Administered Dose 200 mg .ROUTE .STK-MED ONE Stop: 09/04/18 09:47 Propofol (Diprivan 20 Ml) Confirm Administered Dose 200 mg .ROUTE .STK-MED ONE Stop: 09/06/18 07:01 Rocuronium [place] (Zemuron) Confirm Administered Dose 50 mg .ROUTE .STK-MED ONE Stop: 09/03/18 14:41 Rocuronium [place] (Zemuron) Confirm Administered Dose 50 mg .ROUTE .STK-MED ONE Stop: 09/04/18 09:47 Succinylcholine Chloride (Quelicin) Confirm Administered Dose 200 mg .ROUTE .STK -MED ONE Stop: 09/03/18 14:41 Succinylcholine Chloride (Quelicin) Confirm Administered Dose 200 mg .ROUTE .STK -MED ONE Stop: 09/04/18 09:47 Succinylcholine Chloride (Quelicin) Confirm Administered Dose 200 mg .ROUTE .STK -MED ONE Stop: 09/06/18 07:01 - Exam Wound/Incisions: Other (Aquacel bandage was soaked, but a new aquacel was applied and is clean/intact. REMY sites are leaking serous fluid.) Quality Assessment: Central Line/PICC, Urine Catheter, DVT Prophylaxis General: Sedated, Lethargic, Other (continues to be on mechanical ventilation ) Neck: Supple Lungs: Normal Respiratory Effort, Rhonchi Cardiovascular: Regular Rhythm, No Murmurs, Tachycardia GI/Abdominal Exam: No Distention Extremities: Other (bilateral lower extremity edema) - Problem List Review Problem List Initiated/Reviewed/Updated: Yes - My Orders Last 24 Hours: Active Orders 24 hr Category Date Time Status Chest 1V Frontal [CR] DAILY Exams 09/12/18 04:00 Ordered Chest 1V Frontal [CR] DAILY Exams 09/12/18 04:00 Stop Req Chest 1V Frontal [CR] DAILY Exams 09/13/18 04:00 Ordered Chest 1V Frontal [CR] DAILY Exams 09/13/18 04:00 Stop Req Chest 1V Frontal [CR] DAILY Exams 09/14/18 04:00 Ordered Chest 1V Frontal [CR] DAILY Exams 09/14/18 04:00 Stop Req OR [id number] Filter [CR] Routine Exams 09/11/18 10:00 Ordered ABG [BLOOD GAS ARTERIAL] [BG] Routine Lab 09/12/18 04:00 Ordered CBC W/O DIFF,HEMOGRAM [HEME] Timed Lab 09/12/18 04:00 Ordered COMPREHENSIVE METABOLIC PN,CMP [CHEM] Timed Lab 09/12/18 04:00 Ordered PHOSPHORUS [CHEM] Timed Lab 09/12/18 04:00 Ordered PRO B-TYPE NATRIUR PEPT,BNPPRO [CHEM] Timed Lab 09/12/18 04:00 Ordered Azithromycin [Zithromax] 500 mg Med 09/10/18 15:00 Active Dextrose 5% in Water 250 ml IV Q24H Fluconazole/Normal Saline [Diflucan in NS 200 MG/100 ML Med 09/10/18 20:00 Active ] 200 mg Premix Bag 1 bag IV Q24H Furosemide [Lasix] Med 09/11/18 08:00 Active 20 mg IV Q8H Gentamicin 228 mg Med 09/11/18 16:00 Active Sodium Chloride 0.9% [Normal Saline] 50 ml IV Q36H Magnesium Sulfate/Water [Magnesium Sulfate 2 GM in Med 09/11/18 10:00 Active Water 50 ML] 2 gm Premix Bag 1 bag IV Q6H Meropenem [Merrem] 500 mg Med 09/10/18 14:00 Active Sodium Chloride 0.9% [Normal Saline] 25 ml IV Q8H Potassium Phosphates 22.5 mmole Med 09/11/18 09:30 Active Dextrose 5% in Water 100 ml IV Q4H Vancomycin 1 gm Med 09/10/18 18:00 Active Dextrose 5% in Water 250 ml IV Q24H Medication Orders Furosemide (Lasix) 20 mg IV Q8H [facility] Stop: 09/12/18 00:01 Last Admin: 09/11/18 08:29 Dose: 20 mg Hydralazine HCl (Apresoline) 5 mg IVPUSH Q4H PRN PRN Reason: Hypertension Last Admin: 09/10/18 15:44 Dose: 5 mg Admin: 09/08/18 21:26 Dose: 5 mg Hydromorphone HCl (Dilaudid Kennel Aide 15 Mg In Ns 30 Ml) 0 mg IV ASDIRECTED PRN; Protocol 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 Last Admin: 09/09/18 05:52 Dose: 15 mg Admin: 09/05/18 16:37 Dose: 15 mg Admin: 09/03/18 15:28 Dose: 15 mg Hydroxyzine HCl (Vistaril) 50 mg IM Q4H PRN PRN Reason: Pain Heparin Sodium (Porcine) 5,000 (units/ Sodium Chloride) 501 mls @ 5 mls/hr IV ASDIRECTED [facility] Last Admin: 09/10/18 17:25 Dose: 5 mls/hr Infusion: 09/10/18 12:35 Dose: 5 mls/hr Admin: 09/06/18 08:23 Dose: 5 mls/hr Infusion: 09/06/18 08:23 Dose: 5 mls/hr Admin: 09/04/18 17:08 Dose: 5 mls/hr Heparin Sodium (Porcine) 5,000 (units/ Sodium Chloride) 501 mls @ 5 mls/hr IV ASDIRECTED [facility] Last Admin: 09/10/18 17:26 Dose: 5 mls/hr Infusion: 09/10/18 12:36 Dose: 5 mls/hr Admin: 09/06/18 08:24 Dose: 5 mls/hr Propofol (Diprivan 100 Ml) 100 mls @ 1.361 mls/hr IV TITRATE [facility]; Protocol Last Admin: 09/11/18 01:15 Dose: 20 mcg/kg/min, 5.443 mls/hr Titration: 09/11/18 01:15 Dose: 20 mcg/kg/min, 5.443 mls/hr Admin: 09/10/18 13:20 Dose: 20 mcg/kg/min, 5.443 mls/hr Titration: 09/10/18 13:20 Dose: 20 mcg/kg/min, 5.443 mls/hr Titration: 09/10/18 09:50 Dose: 20 mcg/kg/min, 5.443 mls/hr Admin: 09/09/18 23:55 Dose: 30 mcg/kg/min, 8.165 mls/hr Titration: 09/09/18 23:46 Dose: 30 mcg/kg/min, 8.165 mls/hr Titration: 09/09/18 23:31 Dose: 30 mcg/kg/min, 8.165 mls/hr Titration: 09/09/18 21:53 Dose: 25 mcg/kg/min, 6.804 mls/hr Titration: 09/09/18 21:00 Dose: 30 mcg/kg/min, 8.165 mls/hr Admin: 09/09/18 12:34 Dose: 35 mcg/kg/min, 9.525 mls/hr Titration: 09/09/18 12:34 Dose: 35 mcg/kg/min, 9.525 mls/hr Admin: 09/09/18 03:14 Dose: 35 mcg/kg/min, 9.525 mls/hr Titration: 09/09/18 03:14 Dose: 35 mcg/kg/min, 9.525 mls/hr Admin: 09/08/18 18:39 Dose: 35 mcg/kg/min, 9.525 mls/hr Titration: 09/08/18 18:23 Dose: 35 mcg/kg/min, 9.525 mls/hr Titration: 09/08/18 11:08 Dose: 35 mcg/kg/min, 9.525 mls/hr Titration: 09/08/18 11:05 Dose: 15 mcg/kg/min, 4.082 mls/hr Admin: 09/08/18 07:47 Dose: 35 mcg/kg/min, 9.525 mls/hr Titration: 09/08/18 07:47 Dose: 35 mcg/kg/min, 9.525 mls/hr Admin: 09/08/18 03:23 Dose: 35 mcg/kg/min, 9.525 mls/hr Titration: 09/08/18 03:23 Dose: 35 mcg/kg/min, 9.525 mls/hr Admin: 09/07/18 18:34 Dose: 35 mcg/kg/min, 9.525 mls/hr Titration: 09/07/18 18:34 Dose: 25 mcg/kg/min, 6.804 mls/hr Titration: 09/07/18 18:00 Dose: 25 mcg/kg/min, 6.804 mls/hr Titration: 09/07/18 17:15 Dose: 0 mcg/kg/min, 0 mls/hr Admin: 09/07/18 10:06 Dose: 35 mcg/kg/min, 9.525 mls/hr Titration: 09/07/18 10:06 Dose: 35 mcg/kg/min, 9.525 mls/hr Titration: 09/07/18 06:01 Dose: 35 mcg/kg/min, 9.525 mls/hr Titration: 09/07/18 04:43 Dose: 30 mcg/kg/min, 8.165 mls/hr Titration: 09/07/18 04:30 Dose: 35 mcg/kg/min, 9.525 mls/hr Titration: 09/07/18 03:14 Dose: 40 mcg/kg/min, 10.886 mls/hr Admin: 09/07/18 01:13 Dose: 35 mcg/kg/min, 9.525 mls/hr Titration: 09/07/18 01:13 Dose: 35 mcg/kg/min, 9.525 mls/hr Titration: 09/07/18 01:09 Dose: 35 mcg/kg/min, 9.525 mls/hr Titration: 09/06/18 22:02 Dose: 30 mcg/kg/min, 8.165 mls/hr Titration: 09/06/18 21:05 Dose: 35 mcg/kg/min, 9.525 mls/hr Titration: 09/06/18 20:11 Dose: 30 mcg/kg/min, 8.165 mls/hr Titration: 09/06/18 20:02 Dose: 25 mcg/kg/min, 6.804 mls/hr Titration: 09/06/18 17:52 Dose: 20 mcg/kg/min, 5.443 mls/hr Titration: 09/06/18 13:43 Dose: 15 mcg/kg/min, 4.082 mls/hr Titration: 09/06/18 13:32 Dose: 10 mcg/kg/min, 2.722 mls/hr Titration: 09/06/18 12:04 Dose: 7 mcg/kg/min, 1.905 mls/hr Admin: 09/06/18 09:48 Dose: 5 mcg/kg/min, 1.361 mls/hr Sodium Chloride (Normal Saline) 1,000 mls @ 0 mls/hr IV ASDIRECTED [facility] Last Admin: 09/10/18 14:57 Dose: 12.5 mls/hr Infusion: 09/10/18 14:57 Dose: 12.5 mls/hr Admin: 09/08/18 11:20 Dose: 12.5 mls/hr Multivitamins/Minerals 10 ml/Chromium/Copper/Manganese/Seleni/Zn 1 ml/ Amino Ac/ Electrol/Dextrose/Calcium 1,011 mls @ 62 mls/hr IV .BY DURATION [facility] Last Admin: 09/11/18 06:40 Dose: 62 mls/hr Infusion: 09/10/18 14:55 Dose: 62 mls/hr Admin: 09/09/18 22:36 Dose: 62 mls/hr Infusion: 09/09/18 08:08 Dose: 62 mls/hr Admin: 09/08/18 15:49 Dose: 62 mls/hr Amino Ac/Electrol/Dextrose/Calcium (Clinimix E 09/28) 1,000 mls @ 62 mls/hr IV .BY DURATION [facility] Last Admin: 09/10/18 14:48 Dose: 62 mls/hr Infusion: 09/10/18 00:21 Dose: 62 mls/hr Admin: 09/09/18 08:13 Dose: 62 mls/hr Lactated Ringer's (Ringers, Lactated) 1,000 mls @ 125 mls/hr IV ASDIRECTED [facility] Last Admin: 09/11/18 01:06 Dose: 125 mls/hr Infusion: 09/10/18 17:10 Dose: 125 mls/hr Admin: 09/10/18 09:10 Dose: 125 mls/hr Meropenem 500 mg/ Sodium (Chloride) 25 mls @ 50 mls/hr IV Q8H [facility] Last Admin: 09/11/18 05:36 Dose: 50 mls/hr Admin: 09/10/18 21:58 Dose: 50 mls/hr Admin: 09/10/18 14:44 Dose: 50 mls/hr Gentamicin Sulfate 228 mg/ (Sodium Chloride) 55.7 mls @ 55 mls/hr IV Q36H [facility] Azithromycin 500 mg/ Dextrose/ (Water) 250 mls @ 250 mls/hr IV Q24H [facility] Last Admin: 09/10/18 15:33 Dose: 250 mls/hr Vancomycin HCl 1 gm/ Dextrose/ (Water) 250 mls @ 167 mls/hr IV Q24H [facility] Last Admin: 09/10/18 18:18 Dose: 167 mls/hr Fluconazole/Sodium Chloride (200 mg/ Premix) 100 mls @ 100 mls/hr IV Q24H [facility] Last Admin: 09/10/18 20:03 Dose: 100 mls/hr Magnesium Sulfate 2 gm/ Premix 50 mls @ 25 mls/hr IV Q6H [facility] Stop: 09/13/18 05:59 Potassium Phosphate 22.5 mmole (/ Dextrose/Water) 107.5 mls @ 27 mls/hr IV Q4H [facility] Stop: 09/11/18 17:29 Lorazepam (Ativan) 0.5 mg IVPUSH Q3H PRN PRN Reason: AGITATION Last Admin: 09/05/18 03:50 Dose: 0.25 mg Admin: 09/04/18 23:39 Dose: 0.25 mg Admin: 09/04/18 20:15 Dose: 0.25 mg Admin: 09/04/18 16:30 Dose: 0.5 mg Metoprolol Tartrate (Lopressor) 2.5 mg IVPUSH Q4H [facility] Last Admin: 09/11/18 08:41 Dose: 2.5 mg Admin: 09/11/18 04:04 Dose: 2.5 mg Admin: 09/10/18 23:51 Dose: 2.5 mg Admin: 09/10/18 20:03 Dose: 2.5 mg Admin: 09/10/18 17:00 Dose: 2.5 mg Admin: 09/10/18 11:54 Dose: 2.5 mg Admin: 09/10/18 09:18 Dose: 2.5 mg Naloxone HCl (Narcan) 0.1 mg IV ASDIRECTED PRN PRN Reason: decreased respiratory rate Pantoprazole Sodium (Protonix Iv) 40 mg IV Q24H [facility] Last Admin: 09/10/18 21:58 Dose: 40 mg Admin: 09/09/18 21:04 Dose: 40 mg Admin: 09/08/18 21:33 Dose: 40 mg Admin: 09/07/18 21:47 Dose: 40 mg Admin: 09/06/18 21:36 Dose: 40 mg Admin: 09/05/18 21:31 Dose: 40 mg Admin: 09/04/18 21:09 Dose: 40 mg Admin: 09/03/18 22:50 Dose: 40 mg - Assessment Assessment (Free Text/Narrative):: 1. 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 Exploratory laparotomy with a. sigmoid colon resection with end colostomy plus Rosa procedure b. drainage of pericolonic abscess plus diffuse peritoneal cavity washout c. small bowel resection Date of procedure: 09/03/2018, Surgeon Christiano Estrada MD 3.Indication of central venous access 4. Diffuse feculent peritonitis with second look laparotomy showing: a. pelvic right subphrenic with fluid collection b. segment small bowel with increasing necrosis adjacent mesentery 5. Insertion Left subclavian triple-lumen catheter 6. Second look laparotomy with: a. drainage peritoneal inflammatory fluid collection b. drainage right subphrenic inflammatory fluid collection d. plus small bowel resection 7. Date of procedure: 09/04/2018, Surgeon, Christiano Estrada MD 8. Ventilator dependence 9. Hypoalbuminemia 10. Hypomagnesemia 11. REMY drains show clear but are leaking from skin incision: removed REMY drains; serous fluid continues to leak, will suture in OR today 09/11/2018 12. Sputum culture showing yeast - Plan Plan (Free Text/Narrative):: 1. Continue current TPN rate and content 2. Administer Lasix 20 mg every 8 hours, IV push, to facilitate diuresis 3. Administer potassium phosphorous 45 millimoles IV piggyback; minimize IV fluids in central line 4. Administer magnesium sulfate, 2 g, IV piggyback every 6 hours for 48 hours 5. AM labs: CBC, CMP, Phosphorous, BNP, ABGs 6. Will recheck in AM or as needed 7. Daily assessment for ventilator weaning; maintain sedation for avoidance secondary to ventilation
[2018-09-11] MEDS: WATER IV SCH ×4 (09:53→14:45)
[2018-09-11] MEDS: POTASSIUM PHOSPHATES IV SCH ×4 (09:53→14:45)
[2018-09-11] MEDS: DEXTROSE IV SCH ×4 (09:53→14:45)
--- NOTE | 2018-09-11 10:14 | PCM.PN ---
- General Info Date of Service: 09/11/18 Subjective Update: Ms. Muniz is showing modest improvement since yesterday, improved oxygenation allowing decrease in FiO2. Tachycardia has been under better control and she has been more dynamically stable. White blood cell count up from yesterday, she remains afebrile. Unable to provide meaningful information concerning symptoms or review systems because of sedation and intubation. - Patient Data Vitals - Most Recent: Last Vital Signs Temp 96.7 F 09/11/18 08:00 Pulse 102 H 09/11/18 09:00 Resp 24 H 09/11/18 09:00 BP 142/69 H 09/11/18 09:00 Pulse Ox 100 09/11/18 09:00 Weight - Most Recent: 100 lb I&O - Last 24 Hours: Intake & Output 09/10/18 09/11/18 09/11/18 22:59 06:59 14:59 Intake Total 1765 2479 Output Total 956 1840 320 Balance 809 639 -320 Lab Results Last 24 Hours: Laboratory Results - last 24 hr 09/10/18 09/11/18 09/11/18 Range/Units 12:26 04:24 04:24 WBC 25.6 H (4.5-11.0) K/uL RBC 3.21 L (3.30-5.50) M/uL Hgb 10.4 L (12.0-15.0) g/dL Hct 31.8 L (36.0-48.0) % MCV 99 H (80-98) fL MCH 32 H (27-31) pg MCHC 33 (32-36) % Plt Count 343 (150-400) K/uL Puncture Site Line ABG pH 7.500 H (7.350-7.450) ABG pCO2 36.1 (35.0-42.0) mmHg ABG pO2 77.5 (75.0-100.0) mmHg ABG HCO3 27.9 H (22.0-26.0) mmol/L ABG Total CO2 25.2 H (21.0-25.0) mmol/L ABG O2 Saturation 95.4 (95.0-98.0) % ABG O2 Content 14.2 L (15.0-23.0) %vol ABG Base Excess 4.9 mm/L ABG Hemoglobin 10.8 L (12.0-16.0) g/dL ABG Oxyhemoglobin 93.6 % ABG Carboxyhemoglobin 1.3 (0.0-1.6) % ABG Methemoglobin 0.6 % O2 Delivery Device Ventilator Oxygen Flow Rate L Sodium (140-148) mmol/L Potassium (3.6-5.2) mmol/L Chloride (100-108) mmol/L Carbon Dioxide (21-32) mmol/L Anion Gap (5.0-14.0) mmol/L BUN (7-18) mg/dL Creatinine (0.6-1.0) mg/dL Est Cr Clr Drug Dosing mL/min Estimated GFR (MDRD) (>60) Glucose (74-106) mg/dL Calcium (8.5-10.1) mg/dL Phosphorus (2.5-4.9) mg/dL Magnesium (1.8-2.4) mg/dL Total Bilirubin (0.2-1.0) mg/dL AST (15-37) U/L ALT (12-78) U/L Alkaline Phosphatase (46-116) U/L NT-Pro-B Natriuret Pep (5-450) pg/mL Total Protein (6.4-8.2) g/dL Albumin (3.4-5.0) g/dL Globulin (2.3-3.5) g/dL Albumin/Globulin Ratio (1.2-2.2) Vancomycin Trough 19.5 (10.0-20.0) ug/mL 09/11/18 Range/Units 04:24 WBC (4.5-11.0) K/uL RBC (3.30-5.50) M/uL Hgb (12.0-15.0) g/dL Hct (36.0-48.0) % MCV (80-98) fL MCH (27-31) pg MCHC (32-36) % Plt Count (150-400) K/uL Puncture Site ABG pH (7.350-7.450) ABG pCO2 (35.0-42.0) mmHg ABG pO2 (75.0-100.0) mmHg ABG HCO3 (22.0-26.0) mmol/L ABG Total CO2 (21.0-25.0) mmol/L ABG O2 Saturation (95.0-98.0) % ABG O2 Content (15.0-23.0) %vol ABG Base Excess mm/L ABG Hemoglobin (12.0-16.0) g/dL ABG Oxyhemoglobin % ABG Carboxyhemoglobin (0.0-1.6) % ABG Methemoglobin % O2 Delivery Device Oxygen Flow Rate L Sodium 148 (140-148) mmol/L Potassium 3.6 (3.6-5.2) mmol/L Chloride 111 H (100-108) mmol/L Carbon Dioxide 28 (21-32) mmol/L Anion Gap 12.6 (5.0-14.0) mmol/L BUN 51 H (7-18) mg/dL Creatinine 0.8 (0.6-1.0) mg/dL Est Cr Clr Drug Dosing 41.50 mL/min Estimated GFR (MDRD) > 60 (>60) Glucose 145 H (74-106) mg/dL Calcium 8.5 (8.5-10.1) mg/dL Phosphorus 3.5 (2.5-4.9) mg/dL Magnesium 1.6 L (1.8-2.4) mg/dL Total Bilirubin 1.2 H (0.2-1.0) mg/dL AST 99 H (15-37) U/L ALT 124 H (12-78) U/L Alkaline Phosphatase 117 H (46-116) U/L NT-Pro-B Natriuret Pep 18804 H (5-450) pg/mL Total Protein 5.4 L (6.4-8.2) g/dL Albumin 2.0 L (3.4-5.0) g/dL Globulin 3.4 (2.3-3.5) g/dL Albumin/Globulin Ratio 0.6 L (1.2-2.2) Vancomycin Trough (10.0-20.0) ug/mL Med Orders - Current: Current Medications Furosemide (Lasix) 20 mg IV Q8H [facility] Stop: 09/12/18 00:01 Last Admin: 09/11/18 08:29 Dose: 20 mg Hydralazine HCl (Apresoline) 5 mg IVPUSH Q4H PRN PRN Reason: Hypertension Last Admin: 09/10/18 15:44 Dose: 5 mg Hydromorphone HCl (Dilaudid Functional Director 15 Mg In Ns 30 Ml) 0 mg IV ASDIRECTED PRN; Protocol PRN Reason: PATIENT PARTNER 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 Last Admin: 09/09/18 05:52 Dose: 15 mg Hydroxyzine HCl (Vistaril) 50 mg IM Q4H PRN PRN Reason: Pain Heparin Sodium (Porcine) 5,000 (units/ Sodium Chloride) 501 mls @ 5 mls/hr IV ASDIRECTED [facility] Last Admin: 09/10/18 17:25 Dose: 5 mls/hr Heparin Sodium (Porcine) 5,000 (units/ Sodium Chloride) 501 mls @ 5 mls/hr IV ASDIRECTED [facility] Last Admin: 09/10/18 17:26 Dose: 5 mls/hr Propofol (Diprivan 100 Ml) 100 mls @ 1.361 mls/hr IV TITRATE [facility]; Protocol Last Admin: 09/11/18 01:15 Dose: 20 mcg/kg/min, 5.443 mls/hr Sodium Chloride (Normal Saline) 1,000 mls @ 0 mls/hr IV ASDIRECTED [facility] Last Admin: 09/10/18 14:57 Dose: 12.5 mls/hr Multivitamins/Minerals 10 ml/Chromium/Copper/Manganese/Seleni/Zn 1 ml/ Amino Ac/ Electrol/Dextrose/Calcium 1,011 mls @ 62 mls/hr IV .BY DURATION [facility] Last Admin: 09/11/18 06:40 Dose: 62 mls/hr Amino Ac/Electrol/Dextrose/Calcium (Clinimix E 5/20) 1,000 mls @ 62 mls/hr IV .BY DURATION [facility] Last Admin: 09/10/18 14:48 Dose: 62 mls/hr Meropenem 500 mg/ Sodium (Chloride) 25 mls @ 50 mls/hr IV Q8H [facility] Last Admin: 09/11/18 05:36 Dose: 50 mls/hr Gentamicin Sulfate 228 mg/ (Sodium Chloride) 55.7 mls @ 55 mls/hr IV Q36H [facility] Azithromycin 500 mg/ Dextrose/ (Water) 250 mls @ 250 mls/hr IV Q24H [facility] Last Admin: 09/10/18 15:33 Dose: 250 mls/hr Vancomycin HCl 1 gm/ Dextrose/ (Water) 250 mls @ 167 mls/hr IV Q24H [facility] Last Admin: 09/10/18 18:18 Dose: 167 mls/hr Fluconazole/Sodium Chloride (200 mg/ Premix) 100 mls @ 100 mls/hr IV Q24H [facility] Last Admin: 09/10/18 20:03 Dose: 100 mls/hr Magnesium Sulfate 2 gm/ Premix 50 mls @ 25 mls/hr IV Q6H [facility] Stop: 09/13/18 05:59 Potassium Phosphate 22.5 mmole (/ Dextrose/Water) 107.5 mls @ 27 mls/hr IV Q4H [facility] Stop: 09/11/18 17:29 Last Admin: 09/11/18 09:53 Dose: 27 mls/hr Lactated Ringer's (Ringers, Lactated) 1,000 mls @ 75 mls/hr IV ASDIRECTED [facility] Lorazepam (Ativan) 0.5 mg IVPUSH Q3H PRN PRN Reason: AGITATION Last Admin: 09/05/18 03:50 Dose: 0.25 mg Metoprolol Tartrate (Lopressor) 2.5 mg IVPUSH Q4H [facility] Last Admin: 09/11/18 08:41 Dose: 2.5 mg Naloxone HCl (Narcan) 0.1 mg IV ASDIRECTED PRN PRN Reason: decreased respiratory rate Pantoprazole Sodium (Protonix Iv) 40 mg IV Q24H [facility] Last Admin: 09/10/18 21:58 Dose: 40 mg Discontinued Medications Acetaminophen (Tylenol) 650 mg PO Q4H PRN PRN Reason: Pain (Mild 1-3)/fever Acetaminophen (Tylenol) 650 mg RECTAL Q4H PRN PRN Reason: Mild pain/fever Albuterol (Proventil Neb Soln) 2.5 mg NEB Q4H PRN PRN Reason: Shortness Of Breath/wheezing Albuterol/Ipratropium (Duoneb 3.0-0.5 Mg/3 Ml) 3 ml INH PREPRO ONE Stop: 09/03/18 17:01 Last Admin: 09/03/18 16:25 Dose: 3 ml Aztreonam (Azactam) Confirm Administered Dose 1 gm .ROUTE .STK-MED ONE Stop: 09/03/18 21:44 Last Admin: 09/03/18 22:15 Dose: Not Given Benazepril HCl (Lotensin) 40 mg PO ONETIME ONE Stop: 09/03/18 10:41 Last Admin: 09/03/18 11:00 Dose: 40 mg Bupivacaine HCl (Marcaine 0.5%) Confirm Administered Dose 50 ml .ROUTE .STK-MED ONE Stop: 09/07/18 06:48 Last Admin: 09/07/18 10:53 Dose: 18 ml Bupivacaine HCl (Marcaine 0.5%) Confirm Administered Dose 50 ml .ROUTE .STK-MED ONE Stop: 09/11/18 09:07 Ropivacaine 22 ml/Dexamethasone 8 mg/Epinephrine HCl 0.4 mg/ Sodium Chloride 55.6 ml 0 ml NERVRT ASDIRECTED [facility] Ropivacaine 22 ml/Dexamethasone 8 mg/Epinephrine HCl 0.4 mg/ Sodium Chloride 55.6 ml 0 ml NERVRT ASDIRECTED [facility] Last Admin: 09/04/18 14:03 Dose: 80 syringe Ropivacaine 22 ml/Dexamethasone 8 mg/Epinephrine HCl 0.4 mg/ Sodium Chloride 55.6 ml 0 ml NERVRT ASDIRECTED [facility] Last Admin: 09/07/18 11:07 Dose: 80 syringe Dexamethasone (Dexamethasone) Confirm Administered Dose 4 mg .ROUTE .STK-MED ONE Stop: 09/03/18 14:41 Dexamethasone (Dexamethasone) Confirm Administered Dose 4 mg .ROUTE .STK-MED ONE Stop: 09/04/18 09:47 Fentanyl (Sublimaze) 25 mcg IVPUSH ONETIME ONE Stop: 09/03/18 13:57 Last Admin: 09/03/18 14:16 Dose: 25 mcg Fentanyl (Sublimaze) 25 mcg IVPUSH Q2H PRN PRN Reason: Pain (severe 7-10) Fentanyl (Sublimaze) Confirm Administered Dose 250 mcg .ROUTE .STK-MED ONE Stop: 09/03/18 14:41 Fentanyl (Sublimaze) Confirm Administered Dose 250 mcg .ROUTE .STK-MED ONE Stop: 09/04/18 09:46 Fentanyl (Sublimaze) Confirm Administered Dose 250 mcg .ROUTE .STK-MED ONE Stop: 09/04/18 13:57 Furosemide (Lasix) 20 mg IVPUSH ONETIME ONE Stop: 09/04/18 15:10 Last Admin: 09/04/18 15:18 Dose: 20 mg Furosemide (Lasix) 40 mg IV ONETIME ONE Stop: 09/06/18 08:16 Last Admin: 09/06/18 08:26 Dose: 40 mg Furosemide (Lasix) 20 mg IV Q12H [facility] Stop: 09/07/18 20:01 Last Admin: 09/07/18 20:10 Dose: 20 mg Furosemide (Lasix) 20 mg IVPUSH Q12H [facility] Stop: 09/08/18 19:01 Last Admin: 09/08/18 19:50 Dose: 20 mg Furosemide (Lasix) 20 mg IVPUSH ONETIME ONE Stop: 09/09/18 07:01 Last Admin: 09/09/18 08:14 Dose: 20 mg Furosemide (Lasix) 20 mg IVPUSH ONETIME ONE Stop: 09/09/18 11:01 Last Admin: 09/09/18 12:38 Dose: 20 mg Furosemide (Lasix) 20 mg IVPUSH ONETIME ONE Stop: 09/09/18 20:01 Furosemide (Lasix) 20 mg IV Q8H [facility] Stop: 09/11/18 00:31 Last Admin: 09/10/18 23:50 Dose: 20 mg Gentamicin Sulfate (Gentamicin) 1 mg IV .Pharmacy to Dose [facility] Stop: 09/08/18 14:31 Glycopyrrolate (Robinul) Confirm Administered Dose 1 mg .ROUTE .STK-MED ONE Stop: 09/03/18 14:41 Glycopyrrolate (Robinul) Confirm Administered Dose 1 mg .ROUTE .STK-MED ONE Stop: 09/04/18 09:47 Heparin Sodium (Porcine) (Heparin Sodium) Confirm Administered Dose 5,000 units .ROUTE .STK-MED ONE Stop: 09/03/18 18:32 Heparin Sodium (Porcine) (Heparin Lock Flush 100 Units/Ml) Confirm Administered Dose 500 units .ROUTE .STK-MED ONE Stop: 09/04/18 13:14 Heparin Sodium (Porcine) (Heparin Lock Flush 100 Units/Ml) Confirm Administered Dose 1,000 units .ROUTE .STK-MED ONE Stop: 09/11/18 09:07 Hydromorphone HCl (Dilaudid) 0.5 mg IVPUSH ONETIME ONE Stop: 09/03/18 10:48 Last Admin: 09/03/18 11:00 Dose: 0.5 mg Hydromorphone HCl (Dilaudid) 0.5 mg IVPUSH ONETIME ONE Stop: 09/03/18 11:22 Last Admin: 09/03/18 11:25 Dose: 0.5 mg Hydromorphone HCl (Dilaudid) 0.5 mg IVPUSH ONETIME ONE Stop: 09/03/18 12:10 Last Admin: 09/03/18 12:12 Dose: 0.5 mg Hydromorphone HCl (Dilaudid) 0.5 mg IVPUSH ONETIME ONE Stop: 09/03/18 12:40 Last Admin: 09/03/18 12:44 Dose: 0.5 mg Hydromorphone HCl (Dilaudid) 1 mg IVPUSH ONETIME ONE Stop: 09/03/18 12:57 Last Admin: 09/03/18 13:00 Dose: 1 mg Sodium Chloride (Normal Saline) 1,000 mls @ 1,000 mls/hr IV .BOLUS ONE Stop: 09/03/18 12:17 Last Admin: 09/03/18 11:25 Dose: 1,000 mls/hr Piperacillin/Tazobactam/ (Dextrose 4.5 gm/ Premix) 100 mls @ 200 mls/hr IV ONETIME ONE Stop: 09/03/18 13:29 Last Admin: 09/03/18 13:04 Dose: 200 mls/hr Sodium Chloride (Normal Saline) 1,000 mls @ 500 mls/hr IV ASDIRECTED [facility] Last Admin: 09/03/18 13:00 Dose: 500 mls/hr Lactated Ringer's (Ringers, Lactated) 1,000 mls @ 125 mls/hr IV ASDIRECTED [facility] Last Admin: 09/03/18 16:07 Dose: 125 mls/hr Aztreonam 2 gm/ Sodium (Chloride) 100 mls @ 200 mls/hr IV NOW ONE Stop: 09/03/18 15:29 Last Admin: 09/03/18 14:56 Dose: 200 mls/hr Meropenem 500 mg/ Sodium (Chloride) 50 mls @ 100 mls/hr IV ONCALL ONE Stop: 09/03/18 17:29 Last Admin: 09/03/18 16:25 Dose: 100 mls/hr Piperacillin/Tazobactam/ (Dextrose 3.375 gm/ Premix) 50 mls @ 100 mls/hr IV Q6H [facility] Last Admin: 09/03/18 22:15 Dose: Not Given Sodium Chloride (Normal Saline) Confirm Administered Dose 500 mls @ as directed .ROUTE .STK-MED ONE Stop: 09/03/18 18:33 Aztreonam/Dextrose 1 gm/ (Premix) 50 mls @ 100 mls/hr IV Q8HR [facility] Meropenem 500 mg/ Sodium (Chloride) 50 mls @ 100 mls/hr IV Q8H [facility] Last Admin: 09/10/18 05:17 Dose: 100 mls/hr Sodium Chloride (Normal Saline) Confirm Administered Dose 50 mls @ as directed .ROUTE .STK-MED ONE Stop: 09/03/18 22:01 Last Admin: 09/03/18 22:21 Dose: Not Given Aztreonam/Dextrose 1 gm/ (Premix) 50 mls @ 100 mls/hr IV Q8H [facility] Last Admin: 09/04/18 07:30 Dose: Not Given Dextrose/Lactated Ringer's (Dextrose 5%-Lactated Ringers) 1,000 mls @ 100 mls/ hr IV ASDIRECTED PRN PRN Reason: Hypotension Dextrose/Lactated Ringer's (Dextrose 5%-Lactated Ringers) 1,000 mls @ 100 mls/ hr IV ASDIRECTED [facility] Last Admin: 09/05/18 02:13 Dose: 100 mls/hr Lactated Ringer's (Ringers, Lactated) 1,000 mls @ 100 mls/hr IV ASDIRECTED [facility] Last Admin: 09/04/18 04:20 Dose: 100 mls/hr Lactated Ringer's (Ringers, Lactated) 500 mls @ 500 mls/hr IV .BOLUS [facility] Last Admin: 09/04/18 01:10 Dose: 500 mls/hr Lactated Ringer's (Ringers, Lactated) 500 mls @ 500 mls/hr IV .BOLUS [facility] Last Admin: 09/04/18 03:13 Dose: 500 mls/hr Propofol (Diprivan 100 Ml) 100 mls @ 1.361 mls/hr IV TITRATE [facility]; Protocol Last Titration: 09/04/18 07:52 Dose: 14 mcg/kg/min, 3.81 mls/hr Propofol (Diprivan 100 Ml) Confirm Administered Dose 100 mls @ as directed .ROUTE .STK-MED ONE Stop: 09/04/18 03:45 Last Admin: 09/04/18 03:59 Dose: Not Given Lactated Ringer's (Ringers, Lactated) 500 mls @ 999 mls/hr IV .BOLUS [facility] Last Admin: 09/04/18 06:10 Dose: 999 mls/hr Aztreonam/Dextrose 1 gm/ (Premix) 50 mls @ 100 mls/hr IV Q8H [facility] Last Admin: 09/07/18 08:15 Dose: 100 mls/hr Lactated Ringer's (Ringers, Lactated) 500 mls @ 500 mls/hr IV ASDIRECTED [facility] Last Admin: 09/04/18 21:04 Dose: 500 mls/hr Lactated Ringer's (Ringers, Lactated) Confirm Administered Dose 1,000 mls @ as directed .ROUTE .STK-MED ONE Stop: 09/04/18 13:11 Lactated Ringer's (Ringers, Lactated) Confirm Administered Dose 1,000 mls @ as directed .ROUTE .STK-MED ONE Stop: 09/04/18 13:11 Sodium Chloride (Normal Saline) Confirm Administered Dose 10 mls @ as directed .ROUTE .STK-MED ONE Stop: 09/04/18 13:15 Magnesium Sulfate 2 gm/ Premix 50 mls @ 25 mls/hr IV Q6H [facility] Stop: 09/06/18 11:59 Last Admin: 09/06/18 10:17 Dose: 25 mls/hr Lactated Ringer's (Ringers, Lactated) 500 mls @ 500 mls/hr IV ASDIRECTED [facility] Stop: 09/04/18 17:46 Lactated Ringer's (Ringers, Lactated) 500 mls @ 500 mls/hr IV ONETIME ONE Stop: 09/04/18 19:29 Last Admin: 09/04/18 18:37 Dose: 500 mls/hr Lactated Ringer's (Ringers, Lactated) 500 mls @ 1,000 mls/hr IV ONETIME ONE Stop: 09/04/18 23:30 Last Admin: 09/04/18 23:18 Dose: 1,000 mls/hr Lactated Ringer's (Ringers, Lactated) 500 mls @ 1,000 mls/hr IV ONETIME ONE Stop: 09/05/18 01:44 Last Admin: 09/05/18 01:15 Dose: 1,000 mls/hr Lactated Ringer's (Ringers, Lactated) 1,000 mls @ 150 mls/hr IV ASDIRECTED [facility] Last Admin: 09/05/18 02:13 Dose: 150 mls/hr Lactated Ringer's (Ringers, Lactated) 500 mls @ 1,000 mls/hr IV ONETIME ONE Stop: 09/05/18 03:38 Last Admin: 09/05/18 03:15 Dose: 1,000 mls/hr Multivitamins/Minerals 10 ml/Chromium/Copper/Manganese/Seleni/Zn 1 ml/ Amino Ac/ Electrol/Dextrose/Calcium 2,011 mls @ 82 mls/hr IV .BY DURATION [facility] Stop: 09/05/18 13:25 Last Admin: 09/05/18 13:32 Dose: Not Given Amino Ac/Electrol/Dextrose/Calcium (Clinimix E 5/15) 2,000 mls @ 82 mls/hr IV .BY DURATION [facility] Stop: 09/05/18 13:25 Vancomycin HCl 1 gm/ Sodium (Chloride) 250 mls @ 167 mls/hr IV Q24H [facility] Last Admin: 09/05/18 12:34 Dose: 167 mls/hr Sodium Chloride (Normal Saline) 1,000 mls @ 50 mls/hr IV ASDIRECTED [facility] Last Admin: 09/05/18 12:51 Dose: 50 mls/hr Multivitamins/Minerals 10 ml/Chromium/Copper/Manganese/Seleni/Zn 1 ml/ Amino Ac/ Electrol/Dextrose/Calcium 2,011 mls @ 82 mls/hr IV .BY DURATION [facility] Stop: 09/08/18 13:20 Last Admin: 09/07/18 15:09 Dose: 82 mls/hr Amino Ac/Electrol/Dextrose/Calcium (Clinimix E 5/15) 2,000 mls @ 82 mls/hr IV .BY DURATION [facility] Stop: 09/08/18 13:20 Vancomycin HCl 1 gm/ Sodium (Chloride) 250 mls @ 167 mls/hr IV Q24H [facility] Last Admin: 09/06/18 12:00 Dose: 167 mls/hr Sodium Chloride (Normal Saline) 500 mls @ 500 mls/hr IV ASDIRECTED ONE Stop: 09/05/18 16:29 Last Admin: 09/05/18 15:40 Dose: 500 mls/hr Sodium Chloride (Normal Saline) 1,000 mls @ 100 mls/hr IV ASDIRECTED [facility] Last Admin: 09/07/18 07:31 Dose: 100 mls/hr Potassium Phosphate 20 mmole/ (Sodium Chloride) 106.6667 mls @ 35 mls/hr IV Q3H [facility] Stop: 09/07/18 17:29 Last Admin: 09/07/18 15:01 Dose: 35 mls/hr Albumin Human (Albumin 25%) 25 gm in 100 mls @ 25 mls/hr IV DAILY [facility] Stop: 09/09/18 12:59 Last Admin: 09/09/18 08:25 Dose: 25 mls/hr Albumin Human (Albumin 25%) 25 gm in 100 mls @ 25 mls/hr IV Q24H [facility] Stop: 09/09/18 17:59 Last Admin: 09/09/18 14:32 Dose: 25 mls/hr Aztreonam 1 gm/ Sodium (Chloride) 50 mls @ 100 mls/hr IV Q8H [facility] Last Admin: 09/08/18 09:41 Dose: 100 mls/hr Vancomycin HCl 1 gm/ Sodium (Chloride) 250 mls @ 167 mls/hr IV Q18H [facility] Last Admin: 09/09/18 18:42 Dose: 167 mls/hr Sodium Chloride (Normal Saline) 1,000 mls @ 999 mls/hr IV .BOLUS ONE Stop: 09/07/18 17:39 Last Admin: 09/07/18 17:26 Dose: 999 mls/hr Potassium Acetate 40 meq/ (Sodium Chloride) 120 mls @ 30 mls/hr IV ONETIME ONE Stop: 09/08/18 13:59 Last Admin: 09/08/18 09:44 Dose: 30 mls/hr Sodium Chloride (Normal Saline) 100 mls @ 3 mls/sec IV ASDIRECTED [facility] Stop: 09/08/18 15:00 Last Admin: 09/08/18 14:17 Dose: 3 mls/sec Azithromycin 500 mg/ Sodium (Chloride) 250 mls @ 250 mls/hr IV Q24H [facility] Last Admin: 09/09/18 15:27 Dose: 250 mls/hr Gentamicin Sulfate 228 mg/ (Sodium Chloride) 105.7 mls @ 100 mls/hr IV ONETIME ONE Stop: 09/08/18 17:03 Last Admin: 09/08/18 16:19 Dose: 100 mls/hr Potassium Phosphate 15 mmole/ (Sodium Chloride) 105 mls @ 55 mls/hr IV Q2H [facility] Stop: 09/09/18 12:55 Last Admin: 09/09/18 15:27 Dose: 55 mls/hr Gentamicin Sulfate 228 mg/ (Sodium Chloride) 105.7 mls @ 100 mls/hr IV Q36H [facility] Last Admin: 09/10/18 03:55 Dose: 100 mls/hr Sodium Chloride (Normal Saline) 500 mls @ 999 mls/hr IV .BOLUS ONE Stop: 09/09/18 16:34 Last Admin: 09/09/18 16:18 Dose: 999 mls/hr Sodium Chloride (Normal Saline) 500 mls @ 999 mls/hr IV .BOLUS ONE Stop: 09/09/18 17:35 Last Admin: 09/09/18 17:18 Dose: 999 mls/hr Sodium Chloride (Normal Saline) 1,000 mls @ 125 mls/hr IV ASDIRECTED [facility] Last Admin: 09/10/18 01:41 Dose: 125 mls/hr Lactated Ringer's (Ringers, Lactated) 1,000 mls @ 125 mls/hr IV ASDIRECTED [facility] Last Admin: 09/11/18 01:06 Dose: 125 mls/hr Iopamidol (Isovue-300 (61%)) 100 ml IV . DIRECTED PRN PRN Reason: RADIOLOGY EXAM Stop: 09/09/18 11:03 Last Admin: 09/08/18 14:16 Dose: 100 ml Lidocaine/Epinephrine (Xylocaine 1% With Epinephrine 1:100,000) Confirm Administered Dose 50 ml .ROUTE .STK-MED ONE Stop: 09/07/18 06:48 Last Admin: 09/07/18 10:54 Dose: 18 ml Lidocaine/Epinephrine (Xylocaine 1% With Epinephrine 1:100,000) Confirm Administered Dose 50 ml .ROUTE .STK-MED ONE Stop: 09/11/18 09:07 Lorazepam (Ativan) 0.5 mg IVPUSH Q4H PRN PRN Reason: Nausea/Vomiting Meropenem (Merrem) Confirm Administered Dose 1,000 mg .ROUTE .STK-MED ONE Stop: 09/03/18 17:54 Last Admin: 09/03/18 18:32 Dose: 3,500 mg Meropenem (Merrem) Confirm Administered Dose 1,000 mg .ROUTE .STK-MED ONE Stop: 09/03/18 18:04 Meropenem (Merrem) Confirm Administered Dose 2,000 mg .ROUTE .STK-MED ONE Stop: 09/03/18 18:18 Meropenem (Merrem) Confirm Administered Dose 500 mg .ROUTE .STK-MED ONE Stop: 09/07/18 06:48 Last Admin: 09/07/18 10:53 Dose: 500 mg Metoprolol Tartrate (Lopressor) 25 mg PO ONETIME ONE Stop: 09/03/18 10:41 Last Admin: 09/03/18 11:00 Dose: 25 mg Metoprolol Tartrate (Lopressor) 5 mg IVPUSH Q6H [facility] Last Admin: 09/08/18 09:25 Dose: 5 mg Metoprolol Tartrate (Lopressor) 2.5 mg IVPUSH Q6H [facility] Last Admin: 09/10/18 03:55 Dose: 2.5 mg Metoprolol Tartrate (Lopressor) Confirm Administered Dose 5 mg .ROUTE .STK-MED ONE Stop: 09/08/18 21:53 Last Admin: 09/08/18 22:19 Dose: Not Given Neostigmine Methylsulfate (Neostigmine) Confirm Administered Dose 5 mg .ROUTE .STK-MED ONE Stop: 09/03/18 14:41 Neostigmine Methylsulfate (Neostigmine) Confirm Administered Dose 5 mg .ROUTE .STK-MED ONE Stop: 09/04/18 09:47 Ondansetron HCl (Zofran Odt) 4 mg PO Q6H PRN PRN Reason: Nausea able to take PO Ondansetron HCl (Zofran) 4 mg IV Q6H PRN PRN Reason: Nausea/Vomiting Ondansetron HCl (Zofran) Confirm Administered Dose 4 mg .ROUTE .STK-MED ONE Stop: 09/03/18 14:41 Ondansetron HCl (Zofran) Confirm Administered Dose 4 mg .ROUTE .STK-MED ONE Stop: 09/04/18 09:47 Pantoprazole Sodium (Protonix Iv) 40 mg IV Q12H [facility] Last Admin: 09/03/18 16:07 Dose: 40 mg Piperacillin Sod/Tazobactam Sod (Zosyn) 10.125 gm .XX ASDIRECTED [facility] Stop: 09/04/18 15:00 Last Admin: 09/04/18 14:04 Dose: 10.125 gm Propofol (Diprivan 20 Ml) Confirm Administered Dose 200 mg .ROUTE .STK-MED ONE Stop: 09/03/18 14:41 Propofol (Diprivan 20 Ml) Confirm Administered Dose 200 mg .ROUTE .STK-MED ONE Stop: 09/04/18 09:47 Propofol (Diprivan 20 Ml) Confirm Administered Dose 200 mg .ROUTE .STK-MED ONE Stop: 09/06/18 07:01 Rocuronium [place] (Zemuron) Confirm Administered Dose 50 mg .ROUTE .STK-MED ONE Stop: 09/03/18 14:41 Rocuronium [place] (Zemuron) Confirm Administered Dose 50 mg .ROUTE .STK-MED ONE Stop: 09/04/18 09:47 Succinylcholine Chloride (Quelicin) Confirm Administered Dose 200 mg .ROUTE .STK -MED ONE Stop: 09/03/18 14:41 Succinylcholine Chloride (Quelicin) Confirm Administered Dose 200 mg .ROUTE .STK -MED ONE Stop: 09/04/18 09:47 Succinylcholine Chloride (Quelicin) Confirm Administered Dose 200 mg .ROUTE .STK -MED ONE Stop: 09/06/18 07:01 - Exam Quality Assessment: Supplemental Oxygen (Ventilator), Central Line/PICC, Urine Catheter, DVT Prophylaxis General: Sedated, Lethargic Lungs: Clear to Auscultation, Decreased Breath Sounds. No: Rhonchi, Wheezing Cardiovascular: Regular Rhythm, No Murmurs, Tachycardia GI/Abdominal Exam: Soft, No Organomegaly, No Distention Extremities: Non-Tender, Pedal Edema - Problem List Review Problem List Initiated/Reviewed/Updated: Yes - My Orders Last 24 Hours: My Active Orders 09/10/18 15:00 Azithromycin [Zithromax] 500 mg Dextrose 5% in Water 250 ml IV Q24H 09/11/18 10:15 Lactated Ringers [Ringers, Lactated] 1,000 ml IV ASDIRECTED 09/11/18 16:00 Gentamicin 228 mg Sodium Chloride 0.9% [Normal Saline] 50 ml IV Q36H 09/12/18 04:00 Chest 1V Frontal [CR] DAILY 09/13/18 04:00 Chest 1V Frontal [CR] DAILY 09/14/18 04:00 Chest 1V Frontal [CR] DAILY - Plan Plan:: ASSESSMENT AND PLAN Perforated sigmoid colon with sepsis - Initial surgical resection on 09/03 and Second Look laparotomy on 09/04. Sepsis has resolved. Cultures growing Klebsiella , Escherichia coli and anaerobic bacteria. No fevers white blood cell count elevated at 25,000. CT scan abdomen and pelvis shows no evidence of abscess present. -Continue Meropenem, and vancomycin, culture results of the grown out Klebsiella -Pain control with PATIENT PARTNER -Follow-up cultures Acute respiratory failure with hypoxia and hypercapnia - CT scan abdomen and pelvis obtained 09/08 shows evidence of bilateral pulmonary infiltrates consistent with infection, antibiotics have been changed to cover for pulmonary infection. Oxygenation modestly improved over the last 24 hours, allowing decrease in FiO2 -Continue gentamicin and azithromycin -Continue mechanical ventilation -Sedation is needed to avoid significant agitation -Soft wrist restraints -Optimize volume status -Hold on further spontaneous breathing trials until respiratory status has stabilized Acute kidney injury - renal function improved and stable -Management as above -Repeat labs in the morning Hyperactive delirium -She is now sedated with her intubation. -Symptomatically management and treatment of the above conditions Maintenance issues - - DVT prophylaxis - mechanical - GI prophylaxis - PPI - Nutrition - nothing by mouth - Rubin catheter - placed for strict intake and output monitoring and a critical patient Disposition - I would anticipate discharge home after the hospital stayASSESSMENT AND PLAN
[2018-09-11] MEDS ORDERED: fentaNYL 100 MCG/2 ML SDV ONE (10:35)
[2018-09-11] MEDS ORDERED: Sodium Chloride 0.9% 10 ML ONE (10:40)
[2018-09-11] MEDS: Magnesium Sulfate/Water 2 GM in Premix Bag 1 BAG IV SCH ×3 (11:10→22:45)
[2018-09-11] MEDS: GENTAMICIN IV SCH (16:35)
[2018-09-11] MEDS: Fluconazole/Normal Saline 200 MG in Premix Bag 1 BAG IV SCH (20:21)
[2018-09-11] MEDS: Pantoprazole 40 MG Vial IV SCH (22:57)
[2018-09-12] MEDS: Metoprolol Tartrate 5 MG/5 ML SDV IVPUSH PRN (02:33)
--- NOTE | 2018-09-12 03:39 | CRLCR ---
Indication: Intubation Technique: Chest 1 view Comparison: September 11, 2018 Findings/Impression: Endotracheal tube tip terminates 3.8 cm above the level of the pham. Right subclavian central venous catheter tip terminates at the level of the cavoatrial junction. No pneumothorax. Gastric drainage tube tip courses below the level of the left hemidiaphragm. Persistent patchy opacity at the left lung base likely reflects a combination of atelectasis/infiltrate and pleural fluid, slightly increased compared to the prior study. Persistent atelectasis or infiltrate at the right lung base. Cardiac size appears grossly stable. Dictated by Suzanne Melendez MD @ Sep 12 2018 3:22AM Signed by Dr. Suzanne Melendez @ Sep 12 2018 3:23AM
[2018-09-12] MEDS: Magnesium Sulfate/Water 2 GM in Premix Bag 1 BAG IV SCH ×4 (03:42→22:29)
[2018-09-12] MEDS: MEROPENEM IV SCH ×3 (05:50→22:31)
[2018-09-12] MEDS: SODIUM CHLORIDE 0.9% IV SCH ×3 (05:50→22:31)
[2018-09-12] MEDS: Lactated Ringers 1,000 ML IV SCH ×2 (06:50→19:51)
--- NOTE | 2018-09-12 08:01 | PN ---
DATE OF SERVICE: 09/12/2018 SUBJECTIVE: Tina is managed by Haile Vazquez MD. She has been sleepy during the night, has increased amount of subcutaneous fluid which has kept her dressing moist, over edematous. Blood pressure has been low. Afebrile. Urine output via Rubin catheter is 3007. LABORATORY DATA: White count is 23.4, hemoglobin is 9.5, and BNP 7779 down from [address]11. OBJECTIVE: GENERAL: Tina is a 77-year-old female. VITAL SIGNS: TPR 94.9, 88, 18. Blood pressure 100/44. Overall edematous. HEART: Regular rate and rhythm. LUNGS: Clear. ABDOMEN: Dressings are dry and intact, recently changed by nursing staff. ASSESSMENT: 1. Perforated sigmoid colon diverticulitis with pericolonic abscess plus diffuse abdomen and diffuse soilage peritonitis area, partially necrotic small bowel. 2. Exploratory laparotomy with: a. 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 b. Drainage of pericolonic abscess plus diffuse peritoneal cavity washout. c. Small bowel resection. Date of procedure 09/03/2018. Surgeon, Christiano Estrada MD. Diffuse feculent peritonitis with second-look laparotomy showing: A. Pelvic right subphrenic with fluid collection. B. Segment small bowel with increasing necrosis adjacent mesentery. 1. Insertion of left subclavian triple lumen. 2. Ventilator dependence. 3. Hypoalbuminemia. 4. Hypomagnesium. PLAN: Orders to be written per Haile Vazquez MD. Aleta Harper PA-C /[id number]
--- NOTE | 2018-09-12 10:25 | PCM.PN ---
- General Info Date of Service: 09/12/18 Subjective Update: Ms. Muniz is had a modest increase in respiratory compromise since yesterday although her PEEP was decreased from 8 to 5. PEEP was increased back up to eat this morning and oxygenation has improved, increased infiltrate noted in the left lung. Hemodynamically she has been fairly stable and has remained afebrile. Unable to provide meaningful information concerning symptoms or review of systems because of sedation and intubation. - Patient Data Vitals - Most Recent: Last Vital Signs Temp 95 F L 09/12/18 07:30 Pulse 105 H 09/12/18 09:45 Resp 26 H 09/12/18 09:45 BP 139/66 09/12/18 09:45 Pulse Ox 92 L 09/12/18 09:45 Weight - Most Recent: 100 lb I&O - Last 24 Hours: Intake & Output 09/11/18 09/12/18 09/12/18 22:59 06:59 14:59 Intake Total 4560 Output Total 980 1417 180 Balance -980 3143 -180 Lab Results Last 24 Hours: Laboratory Results - last 24 hr 09/12/18 09/12/18 09/12/18 Range/Units 03:50 03:50 03:50 WBC 23.3 H (4.5-11.0) K/uL RBC 2.84 L (3.30-5.50) M/uL Hgb 9.0 L (12.0-15.0) g/dL Hct 28.4 L (36.0-48.0) % MCV 100 H (80-98) fL MCH 32 H (27-31) pg MCHC 32 (32-36) % Plt Count 291 (150-400) K/uL Puncture Site A-line ABG pH 7.466 H (7.350-7.450) ABG pCO2 41.4 (35.0-42.0) mmHg ABG pO2 132.0 H (75.0-100.0) mmHg ABG HCO3 29.5 H (22.0-26.0) mmol/L ABG Total CO2 27.3 H (21.0-25.0) mmol/L ABG O2 Saturation 98.7 H (95.0-98.0) % ABG O2 Content 13.1 L (15.0-23.0) %vol ABG Base Excess 5.7 mm/L ABG Hemoglobin 9.5 L (12.0-16.0) g/dL ABG Oxyhemoglobin 96.3 % ABG Carboxyhemoglobin 1.7 H (0.0-1.6) % ABG Methemoglobin 0.7 % Woody Test A-line O2 Delivery Device Ventilator Sodium 146 (140-148) mmol/L Potassium 3.9 (3.6-5.2) mmol/L Chloride 110 H (100-108) mmol/L Carbon Dioxide 30 (21-32) mmol/L Anion Gap 9.9 (5.0-14.0) mmol/L BUN 56 H (7-18) mg/dL Creatinine 0.8 (0.6-1.0) mg/dL Est Cr Clr Drug Dosing 41.50 mL/min Estimated GFR (MDRD) > 60 (>60) Glucose 128 H (74-106) mg/dL Calcium 8.2 L (8.5-10.1) mg/dL Phosphorus 5.2 H (2.5-4.9) mg/dL Total Bilirubin 0.7 (0.2-1.0) mg/dL AST 115 H (15-37) U/L ALT 150 H (12-78) U/L Alkaline Phosphatase 110 (46-116) U/L NT-Pro-B Natriuret Pep 7779 H (5-450) pg/mL Total Protein 4.5 L (6.4-8.2) g/dL Albumin 1.5 L (3.4-5.0) g/dL Globulin 3.0 (2.3-3.5) g/dL Albumin/Globulin Ratio 0.5 L (1.2-2.2) Med Orders - Current: Current Medications Furosemide (Lasix) 20 mg IVPUSH Q8H [facility] Stop: 09/13/18 02:16 Hydralazine HCl (Apresoline) 5 mg IVPUSH Q4H PRN PRN Reason: Hypertension Last Admin: 09/10/18 15:44 Dose: 5 mg Hydromorphone HCl (Dilaudid Nick Setter 15 Mg In Ns 30 Ml) 0 mg IV ASDIRECTED PRN; Protocol PRN Reason: COMPONENT LAB TECH 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 Last Admin: 09/09/18 05:52 Dose: 15 mg Hydroxyzine HCl (Vistaril) 50 mg IM Q4H PRN PRN Reason: Pain Heparin Sodium (Porcine) 5,000 (units/ Sodium Chloride) 501 mls @ 5 mls/hr IV ASDIRECTED [facility] Last Admin: 09/10/18 17:25 Dose: 5 mls/hr Heparin Sodium (Porcine) 5,000 (units/ Sodium Chloride) 501 mls @ 5 mls/hr IV ASDIRECTED [facility] Last Admin: 09/10/18 17:26 Dose: 5 mls/hr Propofol (Diprivan 100 Ml) 100 mls @ 1.361 mls/hr IV TITRATE [facility]; Protocol Last Admin: 09/12/18 03:40 Dose: 30 mcg/kg/min, 8.165 mls/hr Sodium Chloride (Normal Saline) 1,000 mls @ 0 mls/hr IV ASDIRECTED [facility] Last Admin: 09/10/18 14:57 Dose: 12.5 mls/hr Multivitamins/Minerals 10 ml/Chromium/Copper/Manganese/Seleni/Zn 1 ml/ Amino Ac/ Electrol/Dextrose/Calcium 1,011 mls @ 62 mls/hr IV .BY DURATION [facility] Last Admin: 09/11/18 06:40 Dose: 62 mls/hr Amino Ac/Electrol/Dextrose/Calcium (Clinimix E 09/28) 1,000 mls @ 62 mls/hr IV .BY DURATION [facility] Last Admin: 09/11/18 22:56 Dose: 62 mls/hr Meropenem 500 mg/ Sodium (Chloride) 25 mls @ 50 mls/hr IV Q8H [facility] Last Admin: 09/12/18 05:50 Dose: 50 mls/hr Gentamicin Sulfate 228 mg/ (Sodium Chloride) 55.7 mls @ 55 mls/hr IV Q36H [facility] Last Admin: 09/11/18 16:35 Dose: 55 mls/hr Azithromycin 500 mg/ Dextrose/ (Water) 250 mls @ 250 mls/hr IV Q24H [facility] Last Admin: 09/11/18 15:07 Dose: 250 mls/hr Vancomycin HCl 1 gm/ Dextrose/ (Water) 250 mls @ 167 mls/hr IV Q24H [facility] Last Admin: 09/11/18 18:06 Dose: 167 mls/hr Fluconazole/Sodium Chloride (200 mg/ Premix) 100 mls @ 100 mls/hr IV Q24H [facility] Last Admin: 09/11/18 20:21 Dose: 100 mls/hr Magnesium Sulfate 2 gm/ Premix 50 mls @ 25 mls/hr IV Q6H [facility] Stop: 09/13/18 05:59 Last Admin: 09/12/18 09:24 Dose: 25 mls/hr Lactated Ringer's (Ringers, Lactated) 1,000 mls @ 75 mls/hr IV ASDIRECTED [facility] Last Admin: 09/12/18 06:50 Dose: 75 mls/hr Lorazepam (Ativan) 0.5 mg IVPUSH Q3H PRN PRN Reason: AGITATION Last Admin: 09/05/18 03:50 Dose: 0.25 mg Metoprolol Tartrate (Lopressor) 2.5 mg IVPUSH Q4H PRN PRN Reason: Hypertension Last Admin: 09/12/18 02:33 Dose: 2.5 mg Naloxone HCl (Narcan) 0.1 mg IV ASDIRECTED PRN PRN Reason: decreased respiratory rate Pantoprazole Sodium (Protonix Iv) 40 mg IV Q24H [facility] Last Admin: 09/11/18 22:57 Dose: 40 mg Discontinued Medications Acetaminophen (Tylenol) 650 mg PO Q4H PRN PRN Reason: Pain (Mild 1-3)/fever Acetaminophen (Tylenol) 650 mg RECTAL Q4H PRN PRN Reason: Mild pain/fever Albuterol (Proventil Neb Soln) 2.5 mg NEB Q4H PRN PRN Reason: Shortness Of Breath/wheezing Albuterol/Ipratropium (Duoneb 3.0-0.5 Mg/3 Ml) 3 ml INH PREPRO ONE Stop: 09/03/18 17:01 Last Admin: 09/03/18 16:25 Dose: 3 ml Aztreonam (Azactam) Confirm Administered Dose 1 gm .ROUTE .STK-MED ONE Stop: 09/03/18 21:44 Last Admin: 09/03/18 22:15 Dose: Not Given Benazepril HCl (Lotensin) 40 mg PO ONETIME ONE Stop: 09/03/18 10:41 Last Admin: 09/03/18 11:00 Dose: 40 mg Bupivacaine HCl (Marcaine 0.5%) Confirm Administered Dose 50 ml .ROUTE .STK-MED ONE Stop: 09/07/18 06:48 Last Admin: 09/07/18 10:53 Dose: 18 ml Bupivacaine HCl (Marcaine 0.5%) Confirm Administered Dose 50 ml .ROUTE .STK-MED ONE Stop: 09/11/18 09:07 Last Admin: 09/11/18 10:49 Dose: 2 ml Ropivacaine 22 ml/Dexamethasone 8 mg/Epinephrine HCl 0.4 mg/ Sodium Chloride 55.6 ml 0 ml NERVRT ASDIRECTED [facility] Ropivacaine 22 ml/Dexamethasone 8 mg/Epinephrine HCl 0.4 mg/ Sodium Chloride 55.6 ml 0 ml NERVRT ASDIRECTED [facility] Last Admin: 09/04/18 14:03 Dose: 80 syringe Ropivacaine 22 ml/Dexamethasone 8 mg/Epinephrine HCl 0.4 mg/ Sodium Chloride 55.6 ml 0 ml NERVRT ASDIRECTED [facility] Last Admin: 09/07/18 11:07 Dose: 80 syringe Dexamethasone (Dexamethasone) Confirm Administered Dose 4 mg .ROUTE .STK-MED ONE Stop: 09/03/18 14:41 Dexamethasone (Dexamethasone) Confirm Administered Dose 4 mg .ROUTE .STK-MED ONE Stop: 09/04/18 09:47 Fentanyl (Sublimaze) 25 mcg IVPUSH ONETIME ONE Stop: 09/03/18 13:57 Last Admin: 09/03/18 14:16 Dose: 25 mcg Fentanyl (Sublimaze) 25 mcg IVPUSH Q2H PRN PRN Reason: Pain (severe 7-10) Fentanyl (Sublimaze) Confirm Administered Dose 250 mcg .ROUTE .STK-MED ONE Stop: 09/03/18 14:41 Fentanyl (Sublimaze) Confirm Administered Dose 250 mcg .ROUTE .STK-MED ONE Stop: 09/04/18 09:46 Fentanyl (Sublimaze) Confirm Administered Dose 250 mcg .ROUTE .STK-MED ONE Stop: 09/04/18 13:57 Fentanyl (Sublimaze) Confirm Administered Dose 100 mcg .ROUTE .STK-MED ONE Stop: 09/11/18 10:36 Furosemide (Lasix) 20 mg IVPUSH ONETIME ONE Stop: 09/04/18 15:10 Last Admin: 09/04/18 15:18 Dose: 20 mg Furosemide (Lasix) 40 mg IV ONETIME ONE Stop: 09/06/18 08:16 Last Admin: 09/06/18 08:26 Dose: 40 mg Furosemide (Lasix) 20 mg IV Q12H [facility] Stop: 09/07/18 20:01 Last Admin: 09/07/18 20:10 Dose: 20 mg Furosemide (Lasix) 20 mg IVPUSH Q12H [facility] Stop: 09/08/18 19:01 Last Admin: 09/08/18 19:50 Dose: 20 mg Furosemide (Lasix) 20 mg IVPUSH ONETIME ONE Stop: 09/09/18 07:01 Last Admin: 09/09/18 08:14 Dose: 20 mg Furosemide (Lasix) 20 mg IVPUSH ONETIME ONE Stop: 09/09/18 11:01 Last Admin: 09/09/18 12:38 Dose: 20 mg Furosemide (Lasix) 20 mg IVPUSH ONETIME ONE Stop: 09/09/18 20:01 Furosemide (Lasix) 20 mg IV Q8H [facility] Stop: 09/11/18 00:31 Last Admin: 09/10/18 23:50 Dose: 20 mg Furosemide (Lasix) 20 mg IV Q8H [facility] Stop: 09/12/18 00:01 Last Admin: 09/11/18 23:34 Dose: 20 mg Gentamicin Sulfate (Gentamicin) 1 mg IV .Pharmacy to Dose [facility] Stop: 09/08/18 14:31 Glycopyrrolate (Robinul) Confirm Administered Dose 1 mg .ROUTE .STK-MED ONE Stop: 09/03/18 14:41 Glycopyrrolate (Robinul) Confirm Administered Dose 1 mg .ROUTE .STK-MED ONE Stop: 09/04/18 09:47 Heparin Sodium (Porcine) (Heparin Sodium) Confirm Administered Dose 5,000 units .ROUTE .STK-MED ONE Stop: 09/03/18 18:32 Heparin Sodium (Porcine) (Heparin Lock Flush 100 Units/Ml) Confirm Administered Dose 500 units .ROUTE .STK-MED ONE Stop: 09/04/18 13:14 Heparin Sodium (Porcine) (Heparin Lock Flush 100 Units/Ml) Confirm Administered Dose 1,000 units .ROUTE .STK-MED ONE Stop: 09/11/18 09:07 Last Admin: 09/11/18 10:58 Dose: 1,000 units Heparin Sodium (Porcine) (Heparin Lock Flush 100 Units/Ml) Confirm Administered Dose 500 units .ROUTE .STK-MED ONE Stop: 09/11/18 10:44 Last Admin: 09/11/18 10:58 Dose: 500 units Hydromorphone HCl (Dilaudid) 0.5 mg IVPUSH ONETIME ONE Stop: 09/03/18 10:48 Last Admin: 09/03/18 11:00 Dose: 0.5 mg Hydromorphone HCl (Dilaudid) 0.5 mg IVPUSH ONETIME ONE Stop: 09/03/18 11:22 Last Admin: 09/03/18 11:25 Dose: 0.5 mg Hydromorphone HCl (Dilaudid) 0.5 mg IVPUSH ONETIME ONE Stop: 09/03/18 12:10 Last Admin: 09/03/18 12:12 Dose: 0.5 mg Hydromorphone HCl (Dilaudid) 0.5 mg IVPUSH ONETIME ONE Stop: 09/03/18 12:40 Last Admin: 09/03/18 12:44 Dose: 0.5 mg Hydromorphone HCl (Dilaudid) 1 mg IVPUSH ONETIME ONE Stop: 09/03/18 12:57 Last Admin: 09/03/18 13:00 Dose: 1 mg Sodium Chloride (Normal Saline) 1,000 mls @ 1,000 mls/hr IV .BOLUS ONE Stop: 09/03/18 12:17 Last Admin: 09/03/18 11:25 Dose: 1,000 mls/hr Piperacillin/Tazobactam/ (Dextrose 4.5 gm/ Premix) 100 mls @ 200 mls/hr IV ONETIME ONE Stop: 09/03/18 13:29 Last Admin: 09/03/18 13:04 Dose: 200 mls/hr Sodium Chloride (Normal Saline) 1,000 mls @ 500 mls/hr IV ASDIRECTED [facility] Last Admin: 09/03/18 13:00 Dose: 500 mls/hr Lactated Ringer's (Ringers, Lactated) 1,000 mls @ 125 mls/hr IV ASDIRECTED [facility] Last Admin: 09/03/18 16:07 Dose: 125 mls/hr Aztreonam 2 gm/ Sodium (Chloride) 100 mls @ 200 mls/hr IV NOW ONE Stop: 09/03/18 15:29 Last Admin: 09/03/18 14:56 Dose: 200 mls/hr Meropenem 500 mg/ Sodium (Chloride) 50 mls @ 100 mls/hr IV ONCALL ONE Stop: 09/03/18 17:29 Last Admin: 09/03/18 16:25 Dose: 100 mls/hr Piperacillin/Tazobactam/ (Dextrose 3.375 gm/ Premix) 50 mls @ 100 mls/hr IV Q6H [facility] Last Admin: 09/03/18 22:15 Dose: Not Given Sodium Chloride (Normal Saline) Confirm Administered Dose 500 mls @ as directed .ROUTE .STK-MED ONE Stop: 09/03/18 18:33 Aztreonam/Dextrose 1 gm/ (Premix) 50 mls @ 100 mls/hr IV Q8HR [facility] Meropenem 500 mg/ Sodium (Chloride) 50 mls @ 100 mls/hr IV Q8H [facility] Last Admin: 09/10/18 05:17 Dose: 100 mls/hr Sodium Chloride (Normal Saline) Confirm Administered Dose 50 mls @ as directed .ROUTE .STK-MED ONE Stop: 09/03/18 22:01 Last Admin: 09/03/18 22:21 Dose: Not Given Aztreonam/Dextrose 1 gm/ (Premix) 50 mls @ 100 mls/hr IV Q8H [facility] Last Admin: 09/04/18 07:30 Dose: Not Given Dextrose/Lactated Ringer's (Dextrose 5%-Lactated Ringers) 1,000 mls @ 100 mls/ hr IV ASDIRECTED PRN PRN Reason: Hypotension Dextrose/Lactated Ringer's (Dextrose 5%-Lactated Ringers) 1,000 mls @ 100 mls/ hr IV ASDIRECTED [facility] Last Admin: 09/05/18 02:13 Dose: 100 mls/hr Lactated Ringer's (Ringers, Lactated) 1,000 mls @ 100 mls/hr IV ASDIRECTED [facility] Last Admin: 09/04/18 04:20 Dose: 100 mls/hr Lactated Ringer's (Ringers, Lactated) 500 mls @ 500 mls/hr IV .BOLUS [facility] Last Admin: 09/04/18 01:10 Dose: 500 mls/hr Lactated Ringer's (Ringers, Lactated) 500 mls @ 500 mls/hr IV .BOLUS [facility] Last Admin: 09/04/18 03:13 Dose: 500 mls/hr Propofol (Diprivan 100 Ml) 100 mls @ 1.361 mls/hr IV TITRATE [facility]; Protocol Last Titration: 09/04/18 07:52 Dose: 14 mcg/kg/min, 3.81 mls/hr Propofol (Diprivan 100 Ml) Confirm Administered Dose 100 mls @ as directed .ROUTE .[facility] ONE Stop: 09/04/18 03:45 Last Admin: 09/04/18 03:59 Dose: Not Given Lactated Ringer's (Ringers, Lactated) 500 mls @ 999 mls/hr IV .BOLUS [facility] Last Admin: 09/04/18 06:10 Dose: 999 mls/hr Aztreonam/Dextrose 1 gm/ (Premix) 50 mls @ 100 mls/hr IV Q8H [facility] Last Admin: 09/07/18 08:15 Dose: 100 mls/hr Lactated Ringer's (Ringers, Lactated) 500 mls @ 500 mls/hr IV ASDIRECTED [facility] Last Admin: 09/04/18 21:04 Dose: 500 mls/hr Lactated Ringer's (Ringers, Lactated) Confirm Administered Dose 1,000 mls @ as directed .ROUTE .[facility] ONE Stop: 09/04/18 13:11 Lactated Ringer's (Ringers, Lactated) Confirm Administered Dose 1,000 mls @ as directed .ROUTE .[facility] ONE Stop: 09/04/18 13:11 Sodium Chloride (Normal Saline) Confirm Administered Dose 10 mls @ as directed .ROUTE .[facility] ONE Stop: 09/04/18 13:15 Magnesium Sulfate 2 gm/ Premix 50 mls @ 25 mls/hr IV Q6H [facility] Stop: 09/06/18 11:59 Last Admin: 09/06/18 10:17 Dose: 25 mls/hr Lactated Ringer's (Ringers, Lactated) 500 mls @ 500 mls/hr IV ASDIRECTED [facility] Stop: 09/04/18 17:46 Lactated Ringer's (Ringers, Lactated) 500 mls @ 500 mls/hr IV ONETIME ONE Stop: 09/04/18 19:29 Last Admin: 09/04/18 18:37 Dose: 500 mls/hr Lactated Ringer's (Ringers, Lactated) 500 mls @ 1,000 mls/hr IV ONETIME ONE Stop: 09/04/18 23:30 Last Admin: 09/04/18 23:18 Dose: 1,000 mls/hr Lactated Ringer's (Ringers, Lactated) 500 mls @ 1,000 mls/hr IV ONETIME ONE Stop: 09/05/18 01:44 Last Admin: 09/05/18 01:15 Dose: 1,000 mls/hr Lactated Ringer's (Ringers, Lactated) 1,000 mls @ 150 mls/hr IV ASDIRECTED [facility] Last Admin: 09/05/18 02:13 Dose: 150 mls/hr Lactated Ringer's (Ringers, Lactated) 500 mls @ 1,000 mls/hr IV ONETIME ONE Stop: 09/05/18 03:38 Last Admin: 09/05/18 03:15 Dose: 1,000 mls/hr Multivitamins/Minerals 10 ml/Chromium/Copper/Manganese/Seleni/Zn 1 ml/ Amino Ac/ Electrol/Dextrose/Calcium 2,011 mls @ 82 mls/hr IV .BY DURATION [facility] Stop: 09/05/18 13:25 Last Admin: 09/05/18 13:32 Dose: Not Given Amino Ac/Electrol/Dextrose/Calcium (Clinimix E 09/23) 2,000 mls @ 82 mls/hr IV .BY DURATION [facility] Stop: 09/05/18 13:25 Vancomycin HCl 1 gm/ Sodium (Chloride) 250 mls @ 167 mls/hr IV Q24H [facility] Last Admin: 09/05/18 12:34 Dose: 167 mls/hr Sodium Chloride (Normal Saline) 1,000 mls @ 50 mls/hr IV ASDIRECTED [facility] Last Admin: 09/05/18 12:51 Dose: 50 mls/hr Multivitamins/Minerals 10 ml/Chromium/Copper/Manganese/Seleni/Zn 1 ml/ Amino Ac/ Electrol/Dextrose/Calcium 2,011 mls @ 82 mls/hr IV .BY DURATION [facility] Stop: 09/08/18 13:20 Last Admin: 09/07/18 15:09 Dose: 82 mls/hr Amino Ac/Electrol/Dextrose/Calcium (Clinimix E /15) 2,000 mls @ 82 mls/hr IV .BY DURATION [facility] Stop: 09/08/18 13:20 Vancomycin HCl 1 gm/ Sodium (Chloride) 250 mls @ 167 mls/hr IV Q24H [facility] Last Admin: 09/06/18 12:00 Dose: 167 mls/hr Sodium Chloride (Normal Saline) 500 mls @ 500 mls/hr IV ASDIRECTED ONE Stop: 09/05/18 16:29 Last Admin: 09/05/18 15:40 Dose: 500 mls/hr Sodium Chloride (Normal Saline) 1,000 mls @ 100 mls/hr IV ASDIRECTED [facility] Last Admin: 09/07/18 07:31 Dose: 100 mls/hr Potassium Phosphate 20 mmole/ (Sodium Chloride) 106.6667 mls @ 35 mls/hr IV Q3H [facility] Stop: 09/07/18 17:29 Last Admin: 09/07/18 15:01 Dose: 35 mls/hr Albumin Human (Albumin 25%) 25 gm in 100 mls @ 25 mls/hr IV DAILY [facility] Stop: 09/09/18 12:59 Last Admin: 09/09/18 08:25 Dose: 25 mls/hr Albumin Human (Albumin 25%) 25 gm in 100 mls @ 25 mls/hr IV Q24H [facility] Stop: 09/09/18 17:59 Last Admin: 09/09/18 14:32 Dose: 25 mls/hr Aztreonam 1 gm/ Sodium (Chloride) 50 mls @ 100 mls/hr IV Q8H [facility] Last Admin: 09/08/18 09:41 Dose: 100 mls/hr Vancomycin HCl 1 gm/ Sodium (Chloride) 250 mls @ 167 mls/hr IV Q18H [facility] Last Admin: 09/09/18 18:42 Dose: 167 mls/hr Sodium Chloride (Normal Saline) 1,000 mls @ 999 mls/hr IV .BOLUS ONE Stop: 09/07/18 17:39 Last Admin: 09/07/18 17:26 Dose: 999 mls/hr Potassium Acetate 40 meq/ (Sodium Chloride) 120 mls @ 30 mls/hr IV ONETIME ONE Stop: 09/08/18 13:59 Last Admin: 09/08/18 09:44 Dose: 30 mls/hr Sodium Chloride (Normal Saline) 100 mls @ 3 mls/sec IV ASDIRECTED [facility] Stop: 09/08/18 15:00 Last Admin: 09/08/18 14:17 Dose: 3 mls/sec Azithromycin 500 mg/ Sodium (Chloride) 250 mls @ 250 mls/hr IV Q24H [facility] Last Admin: 09/09/18 15:27 Dose: 250 mls/hr Gentamicin Sulfate 228 mg/ (Sodium Chloride) 105.7 mls @ 100 mls/hr IV ONETIME ONE Stop: 09/08/18 17:03 Last Admin: 09/08/18 16:19 Dose: 100 mls/hr Potassium Phosphate 15 mmole/ (Sodium Chloride) 105 mls @ 55 mls/hr IV Q2H [facility] Stop: 09/09/18 12:55 Last Admin: 09/09/18 15:27 Dose: 55 mls/hr Gentamicin Sulfate 228 mg/ (Sodium Chloride) 105.7 mls @ 100 mls/hr IV Q36H [facility] Last Admin: 09/10/18 03:55 Dose: 100 mls/hr Sodium Chloride (Normal Saline) 500 mls @ 999 mls/hr IV .BOLUS ONE Stop: 09/09/18 16:34 Last Admin: 09/09/18 16:18 Dose: 999 mls/hr Sodium Chloride (Normal Saline) 500 mls @ 999 mls/hr IV .BOLUS ONE Stop: 09/09/18 17:35 Last Admin: 09/09/18 17:18 Dose: 999 mls/hr Sodium Chloride (Normal Saline) 1,000 mls @ 125 mls/hr IV ASDIRECTED [facility] Last Admin: 09/10/18 01:41 Dose: 125 mls/hr Lactated Ringer's (Ringers, Lactated) 1,000 mls @ 125 mls/hr IV ASDIRECTED [facility] Last Admin: 09/11/18 01:06 Dose: 125 mls/hr Potassium Phosphate 22.5 mmole (/ Dextrose/Water) 107.5 mls @ 27 mls/hr IV Q4H [facility] Stop: 09/11/18 17:29 Last Admin: 09/11/18 14:45 Dose: 27 mls/hr Sodium Chloride (Normal Saline) Confirm Administered Dose 10 mls @ as directed .ROUTE .STK-MED ONE Stop: 09/11/18 10:41 Iopamidol (Isovue-300 (61%)) 100 ml IV . DIRECTED PRN PRN Reason: RADIOLOGY EXAM Stop: 09/09/18 11:03 Last Admin: 09/08/18 14:16 Dose: 100 ml Lidocaine/Epinephrine (Xylocaine 1% With Epinephrine 1:100,000) Confirm Administered Dose 50 ml .ROUTE .STK-MED ONE Stop: 09/07/18 06:48 Last Admin: 09/07/18 10:54 Dose: 18 ml Lidocaine/Epinephrine (Xylocaine 1% With Epinephrine 1:100,000) Confirm Administered Dose 50 ml .ROUTE .STK-MED ONE Stop: 09/11/18 09:07 Last Admin: 09/11/18 10:49 Dose: 2 ml Lorazepam (Ativan) 0.5 mg IVPUSH Q4H PRN PRN Reason: Nausea/Vomiting Meropenem (Merrem) Confirm Administered Dose 1,000 mg .ROUTE .STK-MED ONE Stop: 09/03/18 17:54 Last Admin: 09/03/18 18:32 Dose: 3,500 mg Meropenem (Merrem) Confirm Administered Dose 1,000 mg .ROUTE .STK-MED ONE Stop: 09/03/18 18:04 Meropenem (Merrem) Confirm Administered Dose 2,000 mg .ROUTE .STK-MED ONE Stop: 09/03/18 18:18 Meropenem (Merrem) Confirm Administered Dose 500 mg .ROUTE .STK-MED ONE Stop: 09/07/18 06:48 Last Admin: 09/07/18 10:53 Dose: 500 mg Metoprolol Tartrate (Lopressor) 25 mg PO ONETIME ONE Stop: 09/03/18 10:41 Last Admin: 09/03/18 11:00 Dose: 25 mg Metoprolol Tartrate (Lopressor) 5 mg IVPUSH Q6H [facility] Last Admin: 09/08/18 09:25 Dose: 5 mg Metoprolol Tartrate (Lopressor) 2.5 mg IVPUSH Q6H [facility] Last Admin: 09/10/18 03:55 Dose: 2.5 mg Metoprolol Tartrate (Lopressor) Confirm Administered Dose 5 mg .ROUTE .STK-MED ONE Stop: 09/08/18 21:53 Last Admin: 09/08/18 22:19 Dose: Not Given Metoprolol Tartrate (Lopressor) 2.5 mg IVPUSH Q4H [facility] Last Admin: 09/11/18 21:25 Dose: Not Given Neostigmine Methylsulfate (Neostigmine) Confirm Administered Dose 5 mg .ROUTE .STK-MED ONE Stop: 09/03/18 14:41 Neostigmine Methylsulfate (Neostigmine) Confirm Administered Dose 5 mg .ROUTE .STK-MED ONE Stop: 09/04/18 09:47 Ondansetron HCl (Zofran Odt) 4 mg PO Q6H PRN PRN Reason: Nausea able to take PO Ondansetron HCl (Zofran) 4 mg IV Q6H PRN PRN Reason: Nausea/Vomiting Ondansetron HCl (Zofran) Confirm Administered Dose 4 mg .ROUTE .STK-MED ONE Stop: 09/03/18 14:41 Ondansetron HCl (Zofran) Confirm Administered Dose 4 mg .ROUTE .STK-MED ONE Stop: 09/04/18 09:47 Pantoprazole Sodium (Protonix Iv) 40 mg IV Q12H [facility] Last Admin: 09/03/18 16:07 Dose: 40 mg Piperacillin Sod/Tazobactam Sod (Zosyn) 10.125 gm .XX ASDIRECTED [facility] Stop: 09/04/18 15:00 Last Admin: 09/04/18 14:04 Dose: 10.125 gm Propofol (Diprivan 20 Ml) Confirm Administered Dose 200 mg .ROUTE .STK-MED ONE Stop: 09/03/18 14:41 Propofol (Diprivan 20 Ml) Confirm Administered Dose 200 mg .ROUTE .STK-MED ONE Stop: 09/04/18 09:47 Propofol (Diprivan 20 Ml) Confirm Administered Dose 200 mg .ROUTE .STK-MED ONE Stop: 09/06/18 07:01 Rocuronium [place] (Zemuron) Confirm Administered Dose 50 mg .ROUTE .STK-MED ONE Stop: 09/03/18 14:41 Rocuronium [place] (Zemuron) Confirm Administered Dose 50 mg .ROUTE .STK-MED ONE Stop: 09/04/18 09:47 Succinylcholine Chloride (Quelicin) Confirm Administered Dose 200 mg .ROUTE .STK -MED ONE Stop: 09/03/18 14:41 Succinylcholine Chloride (Quelicin) Confirm Administered Dose 200 mg .ROUTE .STK -MED ONE Stop: 09/04/18 09:47 Succinylcholine Chloride (Quelicin) Confirm Administered Dose 200 mg .ROUTE .STK -MED ONE Stop: 09/06/18 07:01 - Exam Quality Assessment: Supplemental Oxygen (Ventilator), Central Line/PICC, Urine Catheter, DVT Prophylaxis General: Sedated, Lethargic Lungs: Rales, Rhonchi. No: Crackles, Wheezing Cardiovascular: Regular Rate, Regular Rhythm, No Murmurs GI/Abdominal Exam: Soft, No Organomegaly, Tender. No: Distended, Guarding, Rigid, Rebound Extremities: Non-Tender, Pedal Edema - Problem List Review Problem List Initiated/Reviewed/Updated: Yes - My Orders Last 24 Hours: My Active Orders 09/11/18 10:15 Lactated Ringers [Ringers, Lactated] 1,000 ml IV ASDIRECTED 09/11/18 16:00 Gentamicin 228 mg Sodium Chloride 0.9% [Normal Saline] 50 ml IV Q36H 09/11/18 21:27 Metoprolol Tartrate [Lopressor] 2.5 mg IVPUSH Q4H PRN 09/12/18 10:15 Furosemide [Lasix] 20 mg IVPUSH Q8H 09/13/18 04:00 Chest 1V Frontal [CR] DAILY 09/13/18 05:00 BLOOD GAS ARTERIAL [BG] Timed CBC WITH AUTO DIFF [HEME] Timed COMPREHENSIVE METABOLIC PN,CMP [CHEM] Timed MAGNESIUM [CHEM] Timed 09/14/18 04:00 Chest 1V Frontal [CR] DAILY - Plan Plan:: ASSESSMENT AND PLAN Perforated sigmoid colon with sepsis - Initial surgical resection on 09/03 and Second Look laparotomy on 09/04. Sepsis has resolved. Cultures growing Klebsiella , Escherichia coli and anaerobic bacteria. No fevers white blood cell count elevated at 23,000. CT scan abdomen and pelvis shows no evidence of abscess present. -Continue Meropenem -Discontinue IV vancomycin -Pain control with COMPONENT LAB TECH -Follow-up cultures Acute respiratory failure with hypoxia and hypercapnia - CT scan abdomen and pelvis obtained 09/08 shows evidence of bilateral pulmonary infiltrates consistent with infection, antibiotics have been changed to cover for pulmonary infection. Oxygenation modestly worse this morning, mild increase in left lung infiltrate. -Therapeutic bronchoscopy this morning by Dr. Julian off -Continue gentamicin and azithromycin -Continue mechanical ventilation -Sedation is needed to avoid significant agitation -Soft wrist restraints -Optimize volume status -Hold on further spontaneous breathing trials until respiratory status has stabilized Acute kidney injury - renal function improved and stable -Management as above -Repeat labs in the morning Hyperactive delirium -She is now sedated with her intubation. -Symptomatically management and treatment of the above conditions Maintenance issues - - DVT prophylaxis - mechanical - GI prophylaxis - PPI - Nutrition - nothing by mouth - Rubin catheter - placed for strict intake and output monitoring and a critical patient Disposition - I would anticipate discharge home after the hospital stay
[2018-09-12] MEDS: Furosemide 20 MG/2 ML VIAL IVPUSH SCH ×2 (10:41→19:11)
[2018-09-12] MEDS ORDERED: Lidocaine 2% Viscous Solution 15 ML Cup ONE (11:14)
[2018-09-12] MEDS ORDERED: Lidocaine 4% Top Soln 50 ML Bottle ONE (11:14)
[2018-09-12] MEDS ORDERED: Central Total Parenteral Nutrition Bag IV SCH (13:30)
[2018-09-12] MEDS: 1: AA 5%/Calcium/D20W/Lytes 1,000 ML with MVI, Adult with Vitamin K 10 ML, Chromium/Copp IV SCH ×3 (15:38)
[2018-09-12] MEDS: Fluconazole/Normal Saline 200 MG in Premix Bag 1 BAG IV SCH (20:48)
[2018-09-12] MEDS: Pantoprazole 40 MG Vial IV SCH (22:30)
[2018-09-13] MEDS: Furosemide 20 MG/2 ML VIAL IVPUSH SCH ×3 (02:39→17:54)
[2018-09-13] MEDS: Magnesium Sulfate/Water 2 GM in Premix Bag 1 BAG IV SCH (03:31)
[2018-09-13] MEDS: GENTAMICIN IV SCH (03:33)
[2018-09-13] MEDS: SODIUM CHLORIDE 0.9% IV SCH ×4 (03:33→23:59)
--- NOTE | 2018-09-13 05:30 | CRLCR ---
Indication: Intubation Technique: Chest 1 view Comparison: September 12, 2018 Findings/Impression: Endotracheal tube tip terminates 4.8 cm above the level of the pham. A gastric drainage tube tip courses below the level of the left hemidiaphragm. Right subclavian central venous catheter tip terminates at the level of the cavoatrial junction. Stable cardiac size. Persistent patchy opacities at both lung bases and in the right upper lobe concerning for atelectasis or infection. There is some improvement in aeration of the left upper lobe. Likely small bilateral pleural effusions. No pneumothorax. Dictated by Suzanne Melendez MD @ Sep 13 2018 5:27AM Signed by Dr. Suzanne Melendez @ Sep 13 2018 5:27AM
[2018-09-13] MEDS: MEROPENEM IV SCH ×3 (05:39→23:59)
[2018-09-13] MEDS: 1: AA 5%/Calcium/D20W/Lytes 1,000 ML with MVI, Adult with Vitamin K 10 ML, Chromium/Copp IV SCH ×3 (08:11)
[2018-09-13] MEDS ORDERED: Potassium Chloride Riders 40 MEQ in Premix Bag 1 BAG IV ONE ×2 (09:00→14:00)
[2018-09-13] MEDS: Lactated Ringers 1,000 ML IV SCH ×2 (09:14→22:27)
--- NOTE | 2018-09-13 09:53 | PN ---
DATE OF SERVICE: 09/13/2018 SUBJECTIVE: Tina had a very good night. She had a bronchoscopy yesterday and has been breathing better since that time. Her incision looks good. Dressings dry and intact. She does have some stool in her colostomy and is resting much more comfortably. REVIEW OF SYSTEMS: Remainder of review of systems negative for any pertinent positives and negatives. OBJECTIVE: GENERAL: Tina Muniz is a 77-year-old female. She is not alert or she is not able to converse. VITAL SIGNS: TPR is 95.2, 92, 20, blood pressure 128/44. HEART: Regular rate and rhythm. LUNGS: Continue to reveal decreased breath sounds, but difficult to auscultate fully. ABDOMEN: Dressings dry and intact. Rubin catheter in place. EXTREMITIES: Remains to have overall generalized edema. Urine output was 3215. ASSESSMENT: 1. SP bronchoscopy. Vicente Olson MD on 09/12/2018. a. 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 b. Drainage of pericolonic abscess plus diffuse peritoneal cavity washout. c. Small bowel resection. Date of procedure 09/03/2018. Surgeon, Christiano Estrada MD. 2. Laparotomy showing right pelvic subphrenic fluid collection, segment small bowel with increasing necrosis adjacent to mesentery and insertion of left subclavian triple- lumen. 3. Ventilator dependent. 4. Hypoalbuminemia. 5. Hypomagnesemia. PLAN: 1. Orders to be written per Haile Vazquez MD. 2. We will evaluate p.r.n. or in a.m. Aleta Harper PA-C /[id number]
[2018-09-13] MEDS ORDERED: Furosemide 40 MG/4 ML VIAL IVPUSH SCH (10:45)
--- NOTE | 2018-09-13 10:51 | PCM.PN ---
- General Info Date of Service: 09/13/18 Subjective Update: Ms. Muniz has shown modest improvement since yesterday with improved oxygenation and modest improvement in infiltrates on chest x-ray. She has been more hemodynamically stable and has remained afebrile. Currently unable to provide significant information concerning symptoms or review of systems because of intubation and sedation. - Patient Data Vitals - Most Recent: Last Vital Signs Temp 95.2 F L 09/13/18 05:51 Pulse 92 09/13/18 05:51 Resp 20 09/13/18 05:51 BP 128/44 L 09/13/18 05:51 Pulse Ox 98 09/13/18 05:51 Weight - Most Recent: 100 lb I&O - Last 24 Hours: Intake & Output 09/12/18 09/13/18 09/13/18 22:59 06:59 14:59 Intake Total 3522 Output Total 1040 1802 270 Balance -1040 1717 -270 Lab Results Last 24 Hours: Laboratory Results - last 24 hr 09/09/18 09/13/18 09/13/18 Range/Units 04:00 05:40 05:40 WBC 20.0 H (4.5-11.0) K/uL RBC 2.75 L (3.30-5.50) M/uL Hgb 9.0 L (12.0-15.0) g/dL Hct 27.2 L (36.0-48.0) % MCV 99 H (80-98) fL MCH 33 H (27-31) pg MCHC 33 (32-36) % Plt Count 319 (150-400) K/uL Neut % (Auto) 94 H (36-66) % Lymph % (Auto) 2 L (24-44) % Gillespie % (Auto) 4 (2-6) % Eos % (Auto) 1 L (2-4) % Baso % (Auto) 0 (0-1) % Puncture Site A-line ABG pH 7.509 H (7.350-7.450) ABG pCO2 38.9 (35.0-42.0) mmHg ABG pO2 104.0 H (75.0-100.0) mmHg ABG HCO3 30.7 H (22.0-26.0) mmol/L ABG Total CO2 28.3 H (21.0-25.0) mmol/L ABG O2 Saturation 98.0 (95.0-98.0) % ABG O2 Content 12.6 L (15.0-23.0) %vol ABG Base Excess 7.4 mm/L ABG Hemoglobin 9.2 L (12.0-16.0) g/dL ABG Oxyhemoglobin 95.8 % ABG Carboxyhemoglobin 1.6 (0.0-1.6) % ABG Methemoglobin 0.6 % Woody Test A-line O2 Delivery Device Ventilator Oxygen Flow Rate L Sodium (140-148) mmol/L Potassium (3.6-5.2) mmol/L Chloride (100-108) mmol/L Carbon Dioxide (21-32) mmol/L Anion Gap (5.0-14.0) mmol/L BUN (7-18) mg/dL Creatinine (0.6-1.0) mg/dL Est Cr Clr Drug Dosing mL/min Estimated GFR (MDRD) (>60) Glucose (74-106) mg/dL Calcium (8.5-10.1) mg/dL Magnesium (1.8-2.4) mg/dL Total Bilirubin (0.2-1.0) mg/dL AST (15-37) U/L ALT (12-78) U/L Alkaline Phosphatase (46-116) U/L Total Protein (6.4-8.2) g/dL Albumin (3.4-5.0) g/dL Globulin (2.3-3.5) g/dL Albumin/Globulin Ratio (1.2-2.2) Crossmatch See Detail 09/13/18 Range/Units 05:40 WBC (4.5-11.0) K/uL RBC (3.30-5.50) M/uL Hgb (12.0-15.0) g/dL Hct (36.0-48.0) % MCV (80-98) fL MCH (27-31) pg MCHC (32-36) % Plt Count (150-400) K/uL Neut % (Auto) (36-66) % Lymph % (Auto) (24-44) % Gillespie % (Auto) (2-6) % Eos % (Auto) (2-4) % Baso % (Auto) (0-1) % Puncture Site ABG pH (7.350-7.450) ABG pCO2 (35.0-42.0) mmHg ABG pO2 (75.0-100.0) mmHg ABG HCO3 (22.0-26.0) mmol/L ABG Total CO2 (21.0-25.0) mmol/L ABG O2 Saturation (95.0-98.0) % ABG O2 Content (15.0-23.0) %vol ABG Base Excess mm/L ABG Hemoglobin (12.0-16.0) g/dL ABG Oxyhemoglobin % ABG Carboxyhemoglobin (0.0-1.6) % ABG Methemoglobin % Woody Test O2 Delivery Device Oxygen Flow Rate L Sodium 144 (140-148) mmol/L Potassium 3.5 L (3.6-5.2) mmol/L Chloride 108 (100-108) mmol/L Carbon Dioxide 29 (21-32) mmol/L Anion Gap 10.5 (5.0-14.0) mmol/L BUN 53 H (7-18) mg/dL Creatinine 0.8 (0.6-1.0) mg/dL Est Cr Clr Drug Dosing 41.50 mL/min Estimated GFR (MDRD) > 60 (>60) Glucose 115 H (74-106) mg/dL Calcium 8.3 L (8.5-10.1) mg/dL Magnesium 3.9 H D (1.8-2.4) mg/dL Total Bilirubin 0.6 (0.2-1.0) mg/dL AST 60 H (15-37) U/L ALT 125 H (12-78) U/L Alkaline Phosphatase 113 (46-116) U/L Total Protein 4.7 L (6.4-8.2) g/dL Albumin 1.3 L (3.4-5.0) g/dL Globulin 3.4 (2.3-3.5) g/dL Albumin/Globulin Ratio 0.4 L (1.2-2.2) Crossmatch Joseph Results Last 24 Hours: Microbiology 09/13/18 10:20 Gram Stain - Final Other - Bronchial 09/12/18 12:57 ADRY Preparation - Final Other - Bronchial 09/12/18 12:57 Gram Stain - Final Bronchial Aspirate - Mixed Med Orders - Current: Current Medications Furosemide (Lasix) 20 mg IVPUSH Q8H [facility] Stop: 09/14/18 02:46 Hydralazine HCl (Apresoline) 5 mg IVPUSH Q4H PRN PRN Reason: Hypertension Last Admin: 09/10/18 15:44 Dose: 5 mg Hydromorphone HCl (Dilaudid [employer] Services Case Manager 15 Mg In Ns 30 Ml) 0 mg IV ASDIRECTED PRN; Protocol PRN Reason: 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 Last Admin: 09/09/18 05:52 Dose: 15 mg Hydroxyzine HCl (Vistaril) 50 mg IM Q4H PRN PRN Reason: Pain Heparin Sodium (Porcine) 5,000 (units/ Sodium Chloride) 501 mls @ 5 mls/hr IV ASDIRECTED [facility] Last Admin: 09/10/18 17:25 Dose: 5 mls/hr Heparin Sodium (Porcine) 5,000 (units/ Sodium Chloride) 501 mls @ 5 mls/hr IV ASDIRECTED [facility] Last Admin: 09/10/18 17:26 Dose: 5 mls/hr Propofol (Diprivan 100 Ml) 100 mls @ 1.361 mls/hr IV TITRATE [facility]; Protocol Last Admin: 09/13/18 05:05 Dose: 22 mcg/kg/min, 5.987 mls/hr Sodium Chloride (Normal Saline) 1,000 mls @ 0 mls/hr IV ASDIRECTED [facility] Last Admin: 09/10/18 14:57 Dose: 12.5 mls/hr Multivitamins/Minerals 10 ml/Chromium/Copper/Manganese/Seleni/Zn 1 ml/ Amino Ac/ Electrol/Dextrose/Calcium 1,011 mls @ 62 mls/hr IV .BY DURATION [facility] Last Admin: 09/12/18 15:38 Dose: 62 mls/hr Amino Ac/Electrol/Dextrose/Calcium (Clinimix E 20) 1,000 mls @ 62 mls/hr IV .BY DURATION [facility] Last Admin: 09/13/18 08:11 Dose: 62 mls/hr Meropenem 500 mg/ Sodium (Chloride) 25 mls @ 50 mls/hr IV Q8H [facility] Last Admin: 09/13/18 05:39 Dose: 50 mls/hr Gentamicin Sulfate 228 mg/ (Sodium Chloride) 55.7 mls @ 55 mls/hr IV Q36H [facility] Last Admin: 09/13/18 03:33 Dose: 55 mls/hr Azithromycin 500 mg/ Dextrose/ (Water) 250 mls @ 250 mls/hr IV Q24H [facility] Last Admin: 09/12/18 15:15 Dose: 250 mls/hr Vancomycin HCl 1 gm/ Dextrose/ (Water) 250 mls @ 167 mls/hr IV Q24H [facility] Last Admin: 09/12/18 19:05 Dose: 167 mls/hr Fluconazole/Sodium Chloride (200 mg/ Premix) 100 mls @ 100 mls/hr IV Q24H [facility] Last Admin: 09/12/18 20:48 Dose: 100 mls/hr Lactated Ringer's (Ringers, Lactated) 1,000 mls @ 75 mls/hr IV ASDIRECTED [facility] Last Admin: 09/13/18 09:14 Dose: 75 mls/hr Potassium Chloride 40 meq/ (Premix) 100 mls @ 25 mls/hr IV ONETIME ONE Stop: 09/13/18 12:59 Last Admin: 09/13/18 09:31 Dose: 25 mls/hr Potassium Chloride 40 meq/ (Premix) 100 mls @ 25 mls/hr IV ONETIME ONE Stop: 09/13/18 17:59 Lorazepam (Ativan) 0.5 mg IVPUSH Q3H PRN PRN Reason: AGITATION Last Admin: 09/05/18 03:50 Dose: 0.25 mg Metoprolol Tartrate (Lopressor) 2.5 mg IVPUSH Q4H PRN PRN Reason: Hypertension Last Admin: 09/12/18 02:33 Dose: 2.5 mg Naloxone HCl (Narcan) 0.1 mg IV ASDIRECTED PRN PRN Reason: decreased respiratory rate Pantoprazole Sodium (Protonix Iv) 40 mg IV Q24H [facility] Last Admin: 09/12/18 22:30 Dose: 40 mg Discontinued Medications Acetaminophen (Tylenol) 650 mg PO Q4H PRN PRN Reason: Pain (Mild 1-3)/fever Acetaminophen (Tylenol) 650 mg RECTAL Q4H PRN PRN Reason: Mild pain/fever Albuterol (Proventil Neb Soln) 2.5 mg NEB Q4H PRN PRN Reason: Shortness Of Breath/wheezing Albuterol/Ipratropium (Duoneb 3.0-0.5 Mg/3 Ml) 3 ml INH PREPRO ONE Stop: 09/03/18 17:01 Last Admin: 09/03/18 16:25 Dose: 3 ml Aztreonam (Azactam) Confirm Administered Dose 1 gm .ROUTE .STK-MED ONE Stop: 09/03/18 21:44 Last Admin: 09/03/18 22:15 Dose: Not Given Benazepril HCl (Lotensin) 40 mg PO ONETIME ONE Stop: 09/03/18 10:41 Last Admin: 09/03/18 11:00 Dose: 40 mg Bupivacaine HCl (Marcaine 0.5%) Confirm Administered Dose 50 ml .ROUTE .STK-MED ONE Stop: 09/07/18 06:48 Last Admin: 09/07/18 10:53 Dose: 18 ml Bupivacaine HCl (Marcaine 0.5%) Confirm Administered Dose 50 ml .ROUTE .STK-MED ONE Stop: 09/11/18 09:07 Last Admin: 09/11/18 10:49 Dose: 2 ml Ropivacaine 22 ml/Dexamethasone 8 mg/Epinephrine HCl 0.4 mg/ Sodium Chloride 55.6 ml 0 ml NERVRT ASDIRECTED [facility] Ropivacaine 22 ml/Dexamethasone 8 mg/Epinephrine HCl 0.4 mg/ Sodium Chloride 55.6 ml 0 ml NERVRT ASDIRECTED [facility] Last Admin: 09/04/18 14:03 Dose: 80 syringe Ropivacaine 22 ml/Dexamethasone 8 mg/Epinephrine HCl 0.4 mg/ Sodium Chloride 55.6 ml 0 ml NERVRT ASDIRECTED [facility] Last Admin: 09/07/18 11:07 Dose: 80 syringe Dexamethasone (Dexamethasone) Confirm Administered Dose 4 mg .ROUTE .STK-MED ONE Stop: 09/03/18 14:41 Dexamethasone (Dexamethasone) Confirm Administered Dose 4 mg .ROUTE .STK-MED ONE Stop: 09/04/18 09:47 Fentanyl (Sublimaze) 25 mcg IVPUSH ONETIME ONE Stop: 09/03/18 13:57 Last Admin: 09/03/18 14:16 Dose: 25 mcg Fentanyl (Sublimaze) 25 mcg IVPUSH Q2H PRN PRN Reason: Pain (severe 7-10) Fentanyl (Sublimaze) Confirm Administered Dose 250 mcg .ROUTE .STK-MED ONE Stop: 09/03/18 14:41 Fentanyl (Sublimaze) Confirm Administered Dose 250 mcg .ROUTE .STK-MED ONE Stop: 09/04/18 09:46 Fentanyl (Sublimaze) Confirm Administered Dose 250 mcg .ROUTE .STK-MED ONE Stop: 09/04/18 13:57 Fentanyl (Sublimaze) Confirm Administered Dose 100 mcg .ROUTE .STK-MED ONE Stop: 09/11/18 10:36 Furosemide (Lasix) 20 mg IVPUSH ONETIME ONE Stop: 09/04/18 15:10 Last Admin: 09/04/18 15:18 Dose: 20 mg Furosemide (Lasix) 40 mg IV ONETIME ONE Stop: 09/06/18 08:16 Last Admin: 09/06/18 08:26 Dose: 40 mg Furosemide (Lasix) 20 mg IV Q12H [facility] Stop: 09/07/18 20:01 Last Admin: 09/07/18 20:10 Dose: 20 mg Furosemide (Lasix) 20 mg IVPUSH Q12H [facility] Stop: 09/08/18 19:01 Last Admin: 09/08/18 19:50 Dose: 20 mg Furosemide (Lasix) 20 mg IVPUSH ONETIME ONE Stop: 09/09/18 07:01 Last Admin: 09/09/18 08:14 Dose: 20 mg Furosemide (Lasix) 20 mg IVPUSH ONETIME ONE Stop: 09/09/18 11:01 Last Admin: 09/09/18 12:38 Dose: 20 mg Furosemide (Lasix) 20 mg IVPUSH ONETIME ONE Stop: 09/09/18 20:01 Furosemide (Lasix) 20 mg IV Q8H [facility] Stop: 09/11/18 00:31 Last Admin: 09/10/18 23:50 Dose: 20 mg Furosemide (Lasix) 20 mg IV Q8H [facility] Stop: 09/12/18 00:01 Last Admin: 09/11/18 23:34 Dose: 20 mg Furosemide (Lasix) 20 mg IVPUSH Q8H [facility] Stop: 09/13/18 02:31 Last Admin: 09/13/18 02:39 Dose: 20 mg Gentamicin Sulfate (Gentamicin) 1 mg IV .Pharmacy to Dose [facility] Stop: 09/08/18 14:31 Glycopyrrolate (Robinul) Confirm Administered Dose 1 mg .ROUTE .STK-MED ONE Stop: 09/03/18 14:41 Glycopyrrolate (Robinul) Confirm Administered Dose 1 mg .ROUTE .STK-MED ONE Stop: 09/04/18 09:47 Heparin Sodium (Porcine) (Heparin Sodium) Confirm Administered Dose 5,000 units .ROUTE .STK-MED ONE Stop: 09/03/18 18:32 Heparin Sodium (Porcine) (Heparin Lock Flush 100 Units/Ml) Confirm Administered Dose 500 units .ROUTE .STK-MED ONE Stop: 09/04/18 13:14 Heparin Sodium (Porcine) (Heparin Lock Flush 100 Units/Ml) Confirm Administered Dose 1,000 units .ROUTE .STK-MED ONE Stop: 09/11/18 09:07 Last Admin: 09/11/18 10:58 Dose: 1,000 units Heparin Sodium (Porcine) (Heparin Lock Flush 100 Units/Ml) Confirm Administered Dose 500 units .ROUTE .STK-MED ONE Stop: 09/11/18 10:44 Last Admin: 09/11/18 10:58 Dose: 500 units Hydromorphone HCl (Dilaudid) 0.5 mg IVPUSH ONETIME ONE Stop: 09/03/18 10:48 Last Admin: 09/03/18 11:00 Dose: 0.5 mg Hydromorphone HCl (Dilaudid) 0.5 mg IVPUSH ONETIME ONE Stop: 09/03/18 11:22 Last Admin: 09/03/18 11:25 Dose: 0.5 mg Hydromorphone HCl (Dilaudid) 0.5 mg IVPUSH ONETIME ONE Stop: 09/03/18 12:10 Last Admin: 09/03/18 12:12 Dose: 0.5 mg Hydromorphone HCl (Dilaudid) 0.5 mg IVPUSH ONETIME ONE Stop: 09/03/18 12:40 Last Admin: 09/03/18 12:44 Dose: 0.5 mg Hydromorphone HCl (Dilaudid) 1 mg IVPUSH ONETIME ONE Stop: 09/03/18 12:57 Last Admin: 09/03/18 13:00 Dose: 1 mg Sodium Chloride (Normal Saline) 1,000 mls @ 1,000 mls/hr IV .BOLUS ONE Stop: 09/03/18 12:17 Last Admin: 09/03/18 11:25 Dose: 1,000 mls/hr Piperacillin/Tazobactam/ (Dextrose 4.5 gm/ Premix) 100 mls @ 200 mls/hr IV ONETIME ONE Stop: 09/03/18 13:29 Last Admin: 09/03/18 13:04 Dose: 200 mls/hr Sodium Chloride (Normal Saline) 1,000 mls @ 500 mls/hr IV ASDIRECTED [facility] Last Admin: 09/03/18 13:00 Dose: 500 mls/hr Lactated Ringer's (Ringers, Lactated) 1,000 mls @ 125 mls/hr IV ASDIRECTED [facility] Last Admin: 09/03/18 16:07 Dose: 125 mls/hr Aztreonam 2 gm/ Sodium (Chloride) 100 mls @ 200 mls/hr IV NOW ONE Stop: 09/03/18 15:29 Last Admin: 09/03/18 14:56 Dose: 200 mls/hr Meropenem 500 mg/ Sodium (Chloride) 50 mls @ 100 mls/hr IV ONCALL ONE Stop: 09/03/18 17:29 Last Admin: 09/03/18 16:25 Dose: 100 mls/hr Piperacillin/Tazobactam/ (Dextrose 3.375 gm/ Premix) 50 mls @ 100 mls/hr IV Q6H [facility] Last Admin: 09/03/18 22:15 Dose: Not Given Sodium Chloride (Normal Saline) Confirm Administered Dose 500 mls @ as directed .ROUTE .STK-MED ONE Stop: 09/03/18 18:33 Aztreonam/Dextrose 1 gm/ (Premix) 50 mls @ 100 mls/hr IV Q8HR [facility] Meropenem 500 mg/ Sodium (Chloride) 50 mls @ 100 mls/hr IV Q8H [facility] Last Admin: 09/10/18 05:17 Dose: 100 mls/hr Sodium Chloride (Normal Saline) Confirm Administered Dose 50 mls @ as directed .ROUTE .STK-MED ONE Stop: 09/03/18 22:01 Last Admin: 09/03/18 22:21 Dose: Not Given Aztreonam/Dextrose 1 gm/ (Premix) 50 mls @ 100 mls/hr IV Q8H [facility] Last Admin: 09/04/18 07:30 Dose: Not Given Dextrose/Lactated Ringer's (Dextrose 5%-Lactated Ringers) 1,000 mls @ 100 mls/ hr IV ASDIRECTED PRN PRN Reason: Hypotension Dextrose/Lactated Ringer's (Dextrose 5%-Lactated Ringers) 1,000 mls @ 100 mls/ hr IV ASDIRECTED [facility] Last Admin: 09/05/18 02:13 Dose: 100 mls/hr Lactated Ringer's (Ringers, Lactated) 1,000 mls @ 100 mls/hr IV ASDIRECTED [facility] Last Admin: 09/04/18 04:20 Dose: 100 mls/hr Lactated Ringer's (Ringers, Lactated) 500 mls @ 500 mls/hr IV .BOLUS [facility] Last Admin: 09/04/18 01:10 Dose: 500 mls/hr Lactated Ringer's (Ringers, Lactated) 500 mls @ 500 mls/hr IV .BOLUS [facility] Last Admin: 09/04/18 03:13 Dose: 500 mls/hr Propofol (Diprivan 100 Ml) 100 mls @ 1.361 mls/hr IV TITRATE [facility]; Protocol Last Titration: 09/04/18 07:52 Dose: 14 mcg/kg/min, 3.81 mls/hr Propofol (Diprivan 100 Ml) Confirm Administered Dose 100 mls @ as directed .ROUTE .STK-MED ONE Stop: 09/04/18 03:45 Last Admin: 09/04/18 03:59 Dose: Not Given Lactated Ringer's (Ringers, Lactated) 500 mls @ 999 mls/hr IV .BOLUS [facility] Last Admin: 09/04/18 06:10 Dose: 999 mls/hr Aztreonam/Dextrose 1 gm/ (Premix) 50 mls @ 100 mls/hr IV Q8H [facility] Last Admin: 09/07/18 08:15 Dose: 100 mls/hr Lactated Ringer's (Ringers, Lactated) 500 mls @ 500 mls/hr IV ASDIRECTED [facility] Last Admin: 09/04/18 21:04 Dose: 500 mls/hr Lactated Ringer's (Ringers, Lactated) Confirm Administered Dose 1,000 mls @ as directed .ROUTE .STK-MED ONE Stop: 09/04/18 13:11 Lactated Ringer's (Ringers, Lactated) Confirm Administered Dose 1,000 mls @ as directed .ROUTE .STK-MED ONE Stop: 09/04/18 13:11 Sodium Chloride (Normal Saline) Confirm Administered Dose 10 mls @ as directed .ROUTE .STK-MED ONE Stop: 09/04/18 13:15 Magnesium Sulfate 2 gm/ Premix 50 mls @ 25 mls/hr IV Q6H [facility] Stop: 09/06/18 11:59 Last Admin: 09/06/18 10:17 Dose: 25 mls/hr Lactated Ringer's (Ringers, Lactated) 500 mls @ 500 mls/hr IV ASDIRECTED [facility] Stop: 09/04/18 17:46 Lactated Ringer's (Ringers, Lactated) 500 mls @ 500 mls/hr IV ONETIME ONE Stop: 09/04/18 19:29 Last Admin: 09/04/18 18:37 Dose: 500 mls/hr Lactated Ringer's (Ringers, Lactated) 500 mls @ 1,000 mls/hr IV ONETIME ONE Stop: 09/04/18 23:30 Last Admin: 09/04/18 23:18 Dose: 1,000 mls/hr Lactated Ringer's (Ringers, Lactated) 500 mls @ 1,000 mls/hr IV ONETIME ONE Stop: 09/05/18 01:44 Last Admin: 09/05/18 01:15 Dose: 1,000 mls/hr Lactated Ringer's (Ringers, Lactated) 1,000 mls @ 150 mls/hr IV ASDIRECTED [facility] Last Admin: 09/05/18 02:13 Dose: 150 mls/hr Lactated Ringer's (Ringers, Lactated) 500 mls @ 1,000 mls/hr IV ONETIME ONE Stop: 09/05/18 03:38 Last Admin: 09/05/18 03:15 Dose: 1,000 mls/hr Multivitamins/Minerals 10 ml/Chromium/Copper/Manganese/Seleni/Zn 1 ml/ Amino Ac/ Electrol/Dextrose/Calcium 2,011 mls @ 82 mls/hr IV .BY DURATION [facility] Stop: 09/05/18 13:25 Last Admin: 09/05/18 13:32 Dose: Not Given Amino Ac/Electrol/Dextrose/Calcium (Clinimix E 5/15) 2,000 mls @ 82 mls/hr IV .BY DURATION [facility] Stop: 09/05/18 13:25 Vancomycin HCl 1 gm/ Sodium (Chloride) 250 mls @ 167 mls/hr IV Q24H [facility] Last Admin: 09/05/18 12:34 Dose: 167 mls/hr Sodium Chloride (Normal Saline) 1,000 mls @ 50 mls/hr IV ASDIRECTED [facility] Last Admin: 09/05/18 12:51 Dose: 50 mls/hr Multivitamins/Minerals 10 ml/Chromium/Copper/Manganese/Seleni/Zn 1 ml/ Amino Ac/ Electrol/Dextrose/Calcium 2,011 mls @ 82 mls/hr IV .BY DURATION [facility] Stop: 09/08/18 13:20 Last Admin: 09/07/18 15:09 Dose: 82 mls/hr Amino Ac/Electrol/Dextrose/Calcium (Clinimix E 5/15) 2,000 mls @ 82 mls/hr IV .BY DURATION [facility] Stop: 09/08/18 13:20 Vancomycin HCl 1 gm/ Sodium (Chloride) 250 mls @ 167 mls/hr IV Q24H [facility] Last Admin: 09/06/18 12:00 Dose: 167 mls/hr Sodium Chloride (Normal Saline) 500 mls @ 500 mls/hr IV ASDIRECTED ONE Stop: 09/05/18 16:29 Last Admin: 09/05/18 15:40 Dose: 500 mls/hr Sodium Chloride (Normal Saline) 1,000 mls @ 100 mls/hr IV ASDIRECTED [facility] Last Admin: 09/07/18 07:31 Dose: 100 mls/hr Potassium Phosphate 20 mmole/ (Sodium Chloride) 106.6667 mls @ 35 mls/hr IV Q3H [facility] Stop: 09/07/18 17:29 Last Admin: 09/07/18 15:01 Dose: 35 mls/hr Albumin Human (Albumin 25%) 25 gm in 100 mls @ 25 mls/hr IV DAILY [facility] Stop: 09/09/18 12:59 Last Admin: 09/09/18 08:25 Dose: 25 mls/hr Albumin Human (Albumin 25%) 25 gm in 100 mls @ 25 mls/hr IV Q24H [facility] Stop: 09/09/18 17:59 Last Admin: 09/09/18 14:32 Dose: 25 mls/hr Aztreonam 1 gm/ Sodium (Chloride) 50 mls @ 100 mls/hr IV Q8H [facility] Last Admin: 09/08/18 09:41 Dose: 100 mls/hr Vancomycin HCl 1 gm/ Sodium (Chloride) 250 mls @ 167 mls/hr IV Q18H [facility] Last Admin: 09/09/18 18:42 Dose: 167 mls/hr Sodium Chloride (Normal Saline) 1,000 mls @ 999 mls/hr IV .BOLUS ONE Stop: 09/07/18 17:39 Last Admin: 09/07/18 17:26 Dose: 999 mls/hr Potassium Acetate 40 meq/ (Sodium Chloride) 120 mls @ 30 mls/hr IV ONETIME ONE Stop: 09/08/18 13:59 Last Admin: 09/08/18 09:44 Dose: 30 mls/hr Sodium Chloride (Normal Saline) 100 mls @ 3 mls/sec IV ASDIRECTED [facility] Stop: 09/08/18 15:00 Last Admin: 09/08/18 14:17 Dose: 3 mls/sec Azithromycin 500 mg/ Sodium (Chloride) 250 mls @ 250 mls/hr IV Q24H [facility] Last Admin: 09/09/18 15:27 Dose: 250 mls/hr Gentamicin Sulfate 228 mg/ (Sodium Chloride) 105.7 mls @ 100 mls/hr IV ONETIME ONE Stop: 09/08/18 17:03 Last Admin: 09/08/18 16:19 Dose: 100 mls/hr Potassium Phosphate 15 mmole/ (Sodium Chloride) 105 mls @ 55 mls/hr IV Q2H [facility] Stop: 09/09/18 12:55 Last Admin: 09/09/18 15:27 Dose: 55 mls/hr Gentamicin Sulfate 228 mg/ (Sodium Chloride) 105.7 mls @ 100 mls/hr IV Q36H [facility] Last Admin: 09/10/18 03:55 Dose: 100 mls/hr Sodium Chloride (Normal Saline) 500 mls @ 999 mls/hr IV .BOLUS ONE Stop: 09/09/18 16:34 Last Admin: 09/09/18 16:18 Dose: 999 mls/hr Sodium Chloride (Normal Saline) 500 mls @ 999 mls/hr IV .BOLUS ONE Stop: 09/09/18 17:35 Last Admin: 09/09/18 17:18 Dose: 999 mls/hr Sodium Chloride (Normal Saline) 1,000 mls @ 125 mls/hr IV ASDIRECTED [facility] Last Admin: 09/10/18 01:41 Dose: 125 mls/hr Lactated Ringer's (Ringers, Lactated) 1,000 mls @ 125 mls/hr IV ASDIRECTED [facility] Last Admin: 09/11/18 01:06 Dose: 125 mls/hr Magnesium Sulfate 2 gm/ Premix 50 mls @ 25 mls/hr IV Q6H [facility] Stop: 09/13/18 05:59 Last Admin: 09/13/18 03:31 Dose: 25 mls/hr Potassium Phosphate 22.5 mmole (/ Dextrose/Water) 107.5 mls @ 27 mls/hr IV Q4H [facility] Stop: 09/11/18 17:29 Last Admin: 09/11/18 14:45 Dose: 27 mls/hr Sodium Chloride (Normal Saline) Confirm Administered Dose 10 mls @ as directed .ROUTE .STK-MED ONE Stop: 09/11/18 10:41 Iopamidol (Isovue-300 (61%)) 100 ml IV . DIRECTED PRN PRN Reason: RADIOLOGY EXAM Stop: 09/09/18 11:03 Last Admin: 09/08/18 14:16 Dose: 100 ml Lidocaine HCl (Xylocaine 2% Viscous) Confirm Administered Dose 15 ml .ROUTE .STK -MED ONE Stop: 09/12/18 11:15 Lidocaine HCl (Xylocaine 4% Top Soln) Confirm Administered Dose 50 ml .ROUTE .STK-MED ONE Stop: 09/12/18 11:15 Lidocaine/Epinephrine (Xylocaine 1% With Epinephrine 1:100,000) Confirm Administered Dose 50 ml .ROUTE .STK-MED ONE Stop: 09/07/18 06:48 Last Admin: 09/07/18 10:54 Dose: 18 ml Lidocaine/Epinephrine (Xylocaine 1% With Epinephrine 1:100,000) Confirm Administered Dose 50 ml .ROUTE .STK-MED ONE Stop: 09/11/18 09:07 Last Admin: 09/11/18 10:49 Dose: 2 ml Lorazepam (Ativan) 0.5 mg IVPUSH Q4H PRN PRN Reason: Nausea/Vomiting Meropenem (Merrem) Confirm Administered Dose 1,000 mg .ROUTE .STK-MED ONE Stop: 09/03/18 17:54 Last Admin: 09/03/18 18:32 Dose: 3,500 mg Meropenem (Merrem) Confirm Administered Dose 1,000 mg .ROUTE .STK-MED ONE Stop: 09/03/18 18:04 Meropenem (Merrem) Confirm Administered Dose 2,000 mg .ROUTE .STK-MED ONE Stop: 09/03/18 18:18 Meropenem (Merrem) Confirm Administered Dose 500 mg .ROUTE .STK-MED ONE Stop: 09/07/18 06:48 Last Admin: 09/07/18 10:53 Dose: 500 mg Metoprolol Tartrate (Lopressor) 25 mg PO ONETIME ONE Stop: 09/03/18 10:41 Last Admin: 09/03/18 11:00 Dose: 25 mg Metoprolol Tartrate (Lopressor) 5 mg IVPUSH Q6H [facility] Last Admin: 09/08/18 09:25 Dose: 5 mg Metoprolol Tartrate (Lopressor) 2.5 mg IVPUSH Q6H [facility] Last Admin: 09/10/18 03:55 Dose: 2.5 mg Metoprolol Tartrate (Lopressor) Confirm Administered Dose 5 mg .ROUTE .STK-MED ONE Stop: 09/08/18 21:53 Last Admin: 09/08/18 22:19 Dose: Not Given Metoprolol Tartrate (Lopressor) 2.5 mg IVPUSH Q4H [facility] Last Admin: 09/11/18 21:25 Dose: Not Given Neostigmine Methylsulfate (Neostigmine) Confirm Administered Dose 5 mg .ROUTE .STK-MED ONE Stop: 09/03/18 14:41 Neostigmine Methylsulfate (Neostigmine) Confirm Administered Dose 5 mg .ROUTE .STK-MED ONE Stop: 09/04/18 09:47 Non-Formulary Medication (Total Parenteral Nutrition, Central) 0 ml IV ASDIRECTED [facility] Stop: 09/12/18 13:31 Ondansetron HCl (Zofran Odt) 4 mg PO Q6H PRN PRN Reason: Nausea able to take PO Ondansetron HCl (Zofran) 4 mg IV Q6H PRN PRN Reason: Nausea/Vomiting Ondansetron HCl (Zofran) Confirm Administered Dose 4 mg .ROUTE .STK-MED ONE Stop: 09/03/18 14:41 Ondansetron HCl (Zofran) Confirm Administered Dose 4 mg .ROUTE .STK-MED ONE Stop: 09/04/18 09:47 Pantoprazole Sodium (Protonix Iv) 40 mg IV Q12H [facility] Last Admin: 09/03/18 16:07 Dose: 40 mg Piperacillin Sod/Tazobactam Sod (Zosyn) 10.125 gm .XX ASDIRECTED [facility] Stop: 09/04/18 15:00 Last Admin: 09/04/18 14:04 Dose: 10.125 gm Propofol (Diprivan 20 Ml) Confirm Administered Dose 200 mg .ROUTE .STK-MED ONE Stop: 09/03/18 14:41 Propofol (Diprivan 20 Ml) Confirm Administered Dose 200 mg .ROUTE .STK-MED ONE Stop: 09/04/18 09:47 Propofol (Diprivan 20 Ml) Confirm Administered Dose 200 mg .ROUTE .STK-MED ONE Stop: 09/06/18 07:01 Rocuronium Lyman (Zemuron) Confirm Administered Dose 50 mg .ROUTE .STK-MED ONE Stop: 09/03/18 14:41 Rocuronium Lyman (Zemuron) Confirm Administered Dose 50 mg .ROUTE .STK-MED ONE Stop: 09/04/18 09:47 Succinylcholine Chloride (Quelicin) Confirm Administered Dose 200 mg .ROUTE .STK -MED ONE Stop: 09/03/18 14:41 Succinylcholine Chloride (Quelicin) Confirm Administered Dose 200 mg .ROUTE .STK -MED ONE Stop: 09/04/18 09:47 Succinylcholine Chloride (Quelicin) Confirm Administered Dose 200 mg .ROUTE .STK -MED ONE Stop: 09/06/18 07:01 - Exam General: Sedated, Lethargic Lungs: Decreased Breath Sounds. No: Rales, Rhonchi, Wheezing Cardiovascular: Regular Rate, Regular Rhythm, No Murmurs GI/Abdominal Exam: Soft, No Organomegaly, No Distention Extremities: Non-Tender, Pedal Edema Skin: Warm, Dry - Problem List Review Problem List Initiated/Reviewed/Updated: Yes - My Orders Last 24 Hours: My Active Orders 05/05/19 04:00 Chest 1V Frontal [CR] DAILY 09/13/18 09:00 Potassium Chloride Riders [KCL 40 MEQ in Water 100 ML] 40 meq Premix Bag 1 bag IV ONETIME 09/13/18 10:45 Furosemide [Lasix] 20 mg IVPUSH Q8H 09/13/18 14:00 GENTAMICIN RANDOM [CHEM] Routine Potassium Chloride Riders [KCL 40 MEQ in Water 100 ML] 40 meq Premix Bag 1 bag IV ONETIME 09/14/18 04:00 Chest 1V Frontal [CR] DAILY 09/14/18 05:00 BLOOD GAS ARTERIAL [BG] Timed CBC WITH AUTO DIFF [HEME] Timed COMPREHENSIVE METABOLIC PN,CMP [CHEM] Timed MAGNESIUM [CHEM] Timed PHOSPHORUS [CHEM] Timed - Plan Plan:: ASSESSMENT AND PLAN Perforated sigmoid colon with sepsis - Initial surgical resection on 09/03 and Second Look laparotomy on 09/04. Sepsis has resolved. Cultures growing Klebsiella , Escherichia coli and anaerobic bacteria. No fevers white blood cell count elevated at 20,000. CT scan abdomen and pelvis from earlier in the week, shows no evidence of abscess present. -Continue Meropenem -Pain control with [employer] -Follow-up cultures Acute respiratory failure with hypoxia and hypercapnia - CT scan abdomen and pelvis obtained 09/08 shows evidence of bilateral pulmonary infiltrates consistent with infection, antibiotics have been changed to cover for pulmonary infection. Oxygenation is improved over the past 24 hours. Follow-up bronchoscopy performed this morning by Dr. Olson showed improvement in degree of mucous plugging -Therapeutic bronchoscopy, repeat in a.m. -Continue gentamicin and azithromycin -Continue mechanical ventilation -Sedation is needed to avoid significant agitation -Soft wrist restraints -Optimize volume status -Hold on further spontaneous breathing trials until respiratory status has stabilized Acute kidney injury - renal function improved and stable -Management as above -Repeat labs in the morning Hyperactive delirium -She is now sedated with her intubation. -Symptomatically management and treatment of the above conditions Maintenance issues - - DVT prophylaxis - mechanical - GI prophylaxis - PPI - Nutrition - nothing by mouth - Rubin catheter - placed for strict intake and output monitoring and a critical patient Disposition - discharge plan depending on needs at the time of discharge
[2018-09-13] MEDS ORDERED: Central Total Parenteral Nutrition Bag IV SCH (12:00)
[2018-09-13] MEDS: Heparin Sodium 5,000 UNITS in Sodium Chloride 0.9% 500 ML IV SCH ×2 (13:59→14:03)
[2018-09-13] MEDS ORDERED: Albuterol 0.083% 2.5 MG/3 ML Neb Soln NEB PRN (18:08)
[2018-09-13] MEDS: Fluconazole/Normal Saline 200 MG in Premix Bag 1 BAG IV SCH (20:23)
[2018-09-13] MEDS: Acetylcysteine 20% 200 MG/ML 4 ML Nebulizer Soln SDV NEB SCH (21:10)
[2018-09-13] MEDS ORDERED: Albuterol/Ipratropium 3.0-0.5 MG/3 ML Neb Soln NEB SCH (22:00)
[2018-09-14] MEDS: Pantoprazole 40 MG Vial IV SCH ×2 (00:02→21:27)
[2018-09-14] MEDS: 1: AA 5%/Calcium/D20W/Lytes 1,000 ML with MVI, Adult with Vitamin K 10 ML, Chromium/Copp IV SCH ×6 (00:30→16:24)
[2018-09-14] MEDS: Furosemide 20 MG/2 ML VIAL IVPUSH SCH (02:29)
--- NOTE | 2018-09-14 04:58 | CRLCR ---
Indication: Intubation Technique: Chest 1 view Comparison: September 13, 2018 Findings/Impression: Endotracheal tube tip terminates 6.1 cm above the level of the pham. Right subclavian central venous catheter tip terminates at the level of the cavoatrial junction. No significant interval change in patchy bibasilar infiltrates. No pneumothorax. Likely small bilateral pleural effusions. Stable cardiac size. Dictated by Suzanne Melendez MD @ Sep 14 2018 4:55AM Signed by Dr. Suzanne Melendez @ Sep 14 2018 4:56AM
[2018-09-14] MEDS: SODIUM CHLORIDE 0.9% IV SCH ×4 (05:18→21:24)
[2018-09-14] MEDS: MEROPENEM IV SCH ×3 (05:18→21:24)
[2018-09-14] MEDS ORDERED: Lidocaine 4% Top Soln 50 ML Bottle ONE (06:56)
--- NOTE | 2018-09-14 07:13 | PCM.PN ---
- General Info Date of Service: 09/14/18 Admission Dx/Problem (Free Text): Tina Muniz is a 77 year old female who is on postoperative day #11 from the original exploratory laparotomy surgery. Mental status: Sedated and on mechanical ventilation. She has shown slight improvement being that she opens her eyes when she hears her name. She is not able to provide symptoms or a review of systems. She has failed previous weaning trials. Central venous pressures are around 13. Labs show that albumin continues to be low at 1.3, and alkaline phosphatase at 191. Total intake was 4823 mL, total output was 3685 mL. Total intake through IV was 4823 mL. Output through Rubin catheter 3230 mL. Vital signs are stable. Incision site appears to be healing well with yassine intact. She will have a bronchoscopy today and sputum will be sent in for a gram stain, culture and sensitivity. - Patient Data Vitals - Most Recent: Last Vital Signs Temp 36.8 C 09/14/18 06:00 Pulse 97 09/14/18 06:00 Resp 22 H 09/14/18 06:00 BP 104/39 L 09/14/18 06:00 Pulse Ox 99 09/14/18 06:00 Weight - Most Recent: 45.359 kg I&O - Last 24 Hours: Intake & Output 09/13/18 09/14/18 09/14/18 22:59 06:59 14:59 Intake Total 2686 2137 Output Total 1625 1180 Balance 1061 957 Lab Results Last 24 Hours: Laboratory Results - last 24 hr 09/13/18 09/14/18 09/14/18 Range/Units 14:00 04:40 05:00 WBC 17.0 H (4.5-11.0) K/uL RBC 2.52 L (3.30-5.50) M/uL Hgb 8.2 L (12.0-15.0) g/dL Hct 25.2 L (36.0-48.0) % MCV 100 H (80-98) fL MCH 33 H (27-31) pg MCHC 33 (32-36) % Plt Count 310 (150-400) K/uL Neut % (Auto) 92 H (36-66) % Lymph % (Auto) 2 L (24-44) % [place] % (Auto) 5 (2-6) % Eos % (Auto) 1 L (2-4) % Baso % (Auto) 0 (0-1) % Puncture Site Line ABG pH 7.499 H (7.350-7.450) ABG pCO2 37.6 (35.0-42.0) mmHg ABG pO2 94.8 (75.0-100.0) mmHg ABG HCO3 29.1 H (22.0-26.0) mmol/L ABG Total CO2 27.1 H (21.0-25.0) mmol/L ABG O2 Saturation 97.6 (95.0-98.0) % ABG O2 Content 11.5 L (15.0-23.0) %vol ABG Base Excess 5.8 mm/L ABG Hemoglobin 8.5 L (12.0-16.0) g/dL ABG Oxyhemoglobin 95.4 % ABG Carboxyhemoglobin 1.6 (0.0-1.6) % ABG Methemoglobin 0.7 % O2 Delivery Device Ventilator Oxygen Flow Rate L Sodium (140-148) mmol/L Potassium (3.6-5.2) mmol/L Chloride (100-108) mmol/L Carbon Dioxide (21-32) mmol/L Anion Gap (5.0-14.0) mmol/L BUN (7-18) mg/dL Creatinine (0.6-1.0) mg/dL Est Cr Clr Drug Dosing mL/min Estimated GFR (MDRD) (>60) Glucose (74-106) mg/dL Calcium (8.5-10.1) mg/dL Phosphorus (2.5-4.9) mg/dL Magnesium (1.8-2.4) mg/dL Total Bilirubin (0.2-1.0) mg/dL AST (15-37) U/L ALT (12-78) U/L Alkaline Phosphatase (46-116) U/L Total Protein (6.4-8.2) g/dL Albumin (3.4-5.0) g/dL Globulin (2.3-3.5) g/dL Albumin/Globulin Ratio (1.2-2.2) Random Gentamicin 4.9 (0.0-12.0) ug/mL 09/14/18 Range/Units 05:00 WBC (4.5-11.0) K/uL RBC (3.30-5.50) M/uL Hgb (12.0-15.0) g/dL Hct (36.0-48.0) % MCV (80-98) fL MCH (27-31) pg MCHC (32-36) % Plt Count (150-400) K/uL Neut % (Auto) (36-66) % Lymph % (Auto) (24-44) % [place] % (Auto) (2-6) % Eos % (Auto) (2-4) % Baso % (Auto) (0-1) % Puncture Site ABG pH (7.350-7.450) ABG pCO2 (35.0-42.0) mmHg ABG pO2 (75.0-100.0) mmHg ABG HCO3 (22.0-26.0) mmol/L ABG Total CO2 (21.0-25.0) mmol/L ABG O2 Saturation (95.0-98.0) % ABG O2 Content (15.0-23.0) %vol ABG Base Excess mm/L ABG Hemoglobin (12.0-16.0) g/dL ABG Oxyhemoglobin % ABG Carboxyhemoglobin (0.0-1.6) % ABG Methemoglobin % O2 Delivery Device Oxygen Flow Rate L Sodium 142 (140-148) mmol/L Potassium 4.7 (3.6-5.2) mmol/L Chloride 107 (100-108) mmol/L Carbon Dioxide 30 (21-32) mmol/L Anion Gap 4.7 L (5.0-14.0) mmol/L BUN 50 H (7-18) mg/dL Creatinine 0.8 (0.6-1.0) mg/dL Est Cr Clr Drug Dosing 41.50 mL/min Estimated GFR (MDRD) > 60 (>60) Glucose 111 H (74-106) mg/dL Calcium 8.3 L (8.5-10.1) mg/dL Phosphorus 4.4 (2.5-4.9) mg/dL Magnesium 2.6 H D (1.8-2.4) mg/dL Total Bilirubin 0.6 (0.2-1.0) mg/dL AST 65 H (15-37) U/L ALT 104 H (12-78) U/L Alkaline Phosphatase 191 H (46-116) U/L Total Protein 4.7 L (6.4-8.2) g/dL Albumin 1.3 L (3.4-5.0) g/dL Globulin 3.4 (2.3-3.5) g/dL Albumin/Globulin Ratio 0.4 L (1.2-2.2) Random Gentamicin (0.0-12.0) ug/mL Joseph Results Last 24 Hours: Microbiology 09/12/18 12:57 Gram Stain - Final Bronchial Aspirate - Mixed Respiratory Culture - Preliminary Yeast Isolated 09/13/18 10:20 Gram Stain - Final Other - Bronchial Wound Culture - Preliminary NO GROWTH AFTER 1 DAY Anaerobic Culture - Preliminary NO GROWTH AFTER 1 DAY Med Orders - Current: Current Medications Acetylcysteine (Mucomyst 20%) 200 mg NEB QIDRT NAHED Last Admin: 09/13/18 21:10 Dose: 200 mg Albuterol (Proventil Neb Soln) 2.5 mg NEB Q4H PRN PRN Reason: Dyspnea Albuterol/Ipratropium (Duoneb 3.0-0.5 Mg/3 Ml) 3 ml NEB QIDRT NAHED Hydralazine HCl (Apresoline) 5 mg IVPUSH Q4H PRN PRN Reason: Hypertension Last Admin: 09/10/18 15:44 Dose: 5 mg Hydromorphone HCl (Dilaudid Senior Manager 15 Mg In Ns 30 Ml) 0 mg IV ASDIRECTED PRN; Protocol PRN Reason: [employer] 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 Last Admin: 09/09/18 05:52 Dose: 15 mg Hydroxyzine HCl (Vistaril) 50 mg IM Q4H PRN PRN Reason: Pain Heparin Sodium (Porcine) 5,000 (units/ Sodium Chloride) 501 mls @ 5 mls/hr IV ASDIRECTED NAHED Last Admin: 09/13/18 14:03 Dose: 5 mls/hr Heparin Sodium (Porcine) 5,000 (units/ Sodium Chloride) 501 mls @ 5 mls/hr IV ASDIRECTED NAHED Last Admin: 09/13/18 13:59 Dose: 5 mls/hr Propofol (Diprivan 100 Ml) 100 mls @ 1.361 mls/hr IV TITRATE NAHED; Protocol Last Titration: 09/14/18 00:05 Dose: 25 mcg/kg/min, 6.804 mls/hr Sodium Chloride (Normal Saline) 1,000 mls @ 0 mls/hr IV ASDIRECTED [facility] Last Admin: 09/10/18 14:57 Dose: 12.5 mls/hr Multivitamins/Minerals 10 ml/Chromium/Copper/Manganese/Seleni/Zn 1 ml/ Amino Ac/ Electrol/Dextrose/Calcium 1,011 mls @ 62 mls/hr IV .BY DURATION [facility] Last Admin: 09/14/18 00:30 Dose: 62 mls/hr Amino Ac/Electrol/Dextrose/Calcium (Clinimix E 09/28) 1,000 mls @ 62 mls/hr IV .BY DURATION [facility] Last Admin: 09/13/18 08:11 Dose: 62 mls/hr Meropenem 500 mg/ Sodium (Chloride) 25 mls @ 50 mls/hr IV Q8H [facility] Last Admin: 09/14/18 05:18 Dose: 50 mls/hr Gentamicin Sulfate 228 mg/ (Sodium Chloride) 55.7 mls @ 55 mls/hr IV Q36H [facility] Last Admin: 09/13/18 03:33 Dose: 55 mls/hr Azithromycin 500 mg/ Dextrose/ (Water) 250 mls @ 250 mls/hr IV Q24H [facility] Last Admin: 09/13/18 15:55 Dose: 250 mls/hr Vancomycin HCl 1 gm/ Dextrose/ (Water) 250 mls @ 167 mls/hr IV Q24H [facility] Last Admin: 09/13/18 17:48 Dose: 167 mls/hr Fluconazole/Sodium Chloride (200 mg/ Premix) 100 mls @ 100 mls/hr IV Q24H [facility] Last Admin: 09/13/18 20:23 Dose: 100 mls/hr Lactated Ringer's (Ringers, Lactated) 1,000 mls @ 75 mls/hr IV ASDIRECTED [facility] Last Admin: 09/13/18 22:27 Dose: 75 mls/hr Lorazepam (Ativan) 0.5 mg IVPUSH Q3H PRN PRN Reason: AGITATION Last Admin: 09/05/18 03:50 Dose: 0.25 mg Metoprolol Tartrate (Lopressor) 2.5 mg IVPUSH Q4H PRN PRN Reason: Hypertension Last Admin: 09/12/18 02:33 Dose: 2.5 mg Naloxone HCl (Narcan) 0.1 mg IV ASDIRECTED PRN PRN Reason: decreased respiratory rate Pantoprazole Sodium (Protonix Iv) 40 mg IV Q24H [facility] Last Admin: 09/14/18 00:02 Dose: 40 mg Discontinued Medications Acetaminophen (Tylenol) 650 mg PO Q4H PRN PRN Reason: Pain (Mild 1-3)/fever Acetaminophen (Tylenol) 650 mg RECTAL Q4H PRN PRN Reason: Mild pain/fever Albuterol (Proventil Neb Soln) 2.5 mg NEB Q4H PRN PRN Reason: Shortness Of Breath/wheezing Albuterol/Ipratropium (Duoneb 3.0-0.5 Mg/3 Ml) 3 ml INH PREPRO ONE Stop: 09/03/18 17:01 Last Admin: 09/03/18 16:25 Dose: 3 ml Albuterol/Ipratropium (Duoneb 3.0-0.5 Mg/3 Ml) 3 ml NEB QID [facility] Last Admin: 09/13/18 21:11 Dose: 3 ml Aztreonam (Azactam) Confirm Administered Dose 1 gm .ROUTE .STK-MED ONE Stop: 09/03/18 21:44 Last Admin: 09/03/18 22:15 Dose: Not Given Benazepril HCl (Lotensin) 40 mg PO ONETIME ONE Stop: 09/03/18 10:41 Last Admin: 09/03/18 11:00 Dose: 40 mg Bupivacaine HCl (Marcaine 0.5%) Confirm Administered Dose 50 ml .ROUTE .STK-MED ONE Stop: 09/07/18 06:48 Last Admin: 09/07/18 10:53 Dose: 18 ml Bupivacaine HCl (Marcaine 0.5%) Confirm Administered Dose 50 ml .ROUTE .STK-MED ONE Stop: 09/11/18 09:07 Last Admin: 09/11/18 10:49 Dose: 2 ml Ropivacaine 22 ml/Dexamethasone 8 mg/Epinephrine HCl 0.4 mg/ Sodium Chloride 55.6 ml 0 ml NERVRT ASDIRECTED [facility] Ropivacaine 22 ml/Dexamethasone 8 mg/Epinephrine HCl 0.4 mg/ Sodium Chloride 55.6 ml 0 ml NERVRT ASDIRECTED [facility] Last Admin: 09/04/18 14:03 Dose: 80 syringe Ropivacaine 22 ml/Dexamethasone 8 mg/Epinephrine HCl 0.4 mg/ Sodium Chloride 55.6 ml 0 ml NERVRT ASDIRECTED [facility] Last Admin: 09/07/18 11:07 Dose: 80 syringe Dexamethasone (Dexamethasone) Confirm Administered Dose 4 mg .ROUTE .STK-MED ONE Stop: 09/03/18 14:41 Dexamethasone (Dexamethasone) Confirm Administered Dose 4 mg .ROUTE .STK-MED ONE Stop: 09/04/18 09:47 Fentanyl (Sublimaze) 25 mcg IVPUSH ONETIME ONE Stop: 09/03/18 13:57 Last Admin: 09/03/18 14:16 Dose: 25 mcg Fentanyl (Sublimaze) 25 mcg IVPUSH Q2H PRN PRN Reason: Pain (severe 7-10) Fentanyl (Sublimaze) Confirm Administered Dose 250 mcg .ROUTE .STK-MED ONE Stop: 09/03/18 14:41 Fentanyl (Sublimaze) Confirm Administered Dose 250 mcg .ROUTE .STK-MED ONE Stop: 09/04/18 09:46 Fentanyl (Sublimaze) Confirm Administered Dose 250 mcg .ROUTE .STK-MED ONE Stop: 09/04/18 13:57 Fentanyl (Sublimaze) Confirm Administered Dose 100 mcg .ROUTE .STK-MED ONE Stop: 09/11/18 10:36 Furosemide (Lasix) 20 mg IVPUSH ONETIME ONE Stop: 09/04/18 15:10 Last Admin: 09/04/18 15:18 Dose: 20 mg Furosemide (Lasix) 40 mg IV ONETIME ONE Stop: 09/06/18 08:16 Last Admin: 09/06/18 08:26 Dose: 40 mg Furosemide (Lasix) 20 mg IV Q12H [facility] Stop: 09/07/18 20:01 Last Admin: 09/07/18 20:10 Dose: 20 mg Furosemide (Lasix) 20 mg IVPUSH Q12H [facility] Stop: 09/08/18 19:01 Last Admin: 09/08/18 19:50 Dose: 20 mg Furosemide (Lasix) 20 mg IVPUSH ONETIME ONE Stop: 09/09/18 07:01 Last Admin: 09/09/18 08:14 Dose: 20 mg Furosemide (Lasix) 20 mg IVPUSH ONETIME ONE Stop: 09/09/18 11:01 Last Admin: 09/09/18 12:38 Dose: 20 mg Furosemide (Lasix) 20 mg IVPUSH ONETIME ONE Stop: 09/09/18 20:01 Furosemide (Lasix) 20 mg IV Q8H [facility] Stop: 09/11/18 00:31 Last Admin: 09/10/18 23:50 Dose: 20 mg Furosemide (Lasix) 20 mg IV Q8H [facility] Stop: 09/12/18 00:01 Last Admin: 09/11/18 23:34 Dose: 20 mg Furosemide (Lasix) 20 mg IVPUSH Q8H [facility] Stop: 09/13/18 02:31 Last Admin: 09/13/18 02:39 Dose: 20 mg Furosemide (Lasix) 20 mg IVPUSH Q8H [facility] Stop: 09/14/18 02:31 Last Admin: 09/14/18 02:29 Dose: 20 mg Gentamicin Sulfate (Gentamicin) 1 mg IV .Pharmacy to Dose [facility] Stop: 09/08/18 14:31 Glycopyrrolate (Robinul) Confirm Administered Dose 1 mg .ROUTE .STK-MED ONE Stop: 09/03/18 14:41 Glycopyrrolate (Robinul) Confirm Administered Dose 1 mg .ROUTE .STK-MED ONE Stop: 09/04/18 09:47 Heparin Sodium (Porcine) (Heparin Sodium) Confirm Administered Dose 5,000 units .ROUTE .STK-MED ONE Stop: 09/03/18 18:32 Heparin Sodium (Porcine) (Heparin Lock Flush 100 Units/Ml) Confirm Administered Dose 500 units .ROUTE .STK-MED ONE Stop: 09/04/18 13:14 Heparin Sodium (Porcine) (Heparin Lock Flush 100 Units/Ml) Confirm Administered Dose 1,000 units .ROUTE .STK-MED ONE Stop: 09/11/18 09:07 Last Admin: 09/11/18 10:58 Dose: 1,000 units Heparin Sodium (Porcine) (Heparin Lock Flush 100 Units/Ml) Confirm Administered Dose 500 units .ROUTE .STK-MED ONE Stop: 09/11/18 10:44 Last Admin: 09/11/18 10:58 Dose: 500 units Hydromorphone HCl (Dilaudid) 0.5 mg IVPUSH ONETIME ONE Stop: 09/03/18 10:48 Last Admin: 09/03/18 11:00 Dose: 0.5 mg Hydromorphone HCl (Dilaudid) 0.5 mg IVPUSH ONETIME ONE Stop: 09/03/18 11:22 Last Admin: 09/03/18 11:25 Dose: 0.5 mg Hydromorphone HCl (Dilaudid) 0.5 mg IVPUSH ONETIME ONE Stop: 09/03/18 12:10 Last Admin: 09/03/18 12:12 Dose: 0.5 mg Hydromorphone HCl (Dilaudid) 0.5 mg IVPUSH ONETIME ONE Stop: 09/03/18 12:40 Last Admin: 09/03/18 12:44 Dose: 0.5 mg Hydromorphone HCl (Dilaudid) 1 mg IVPUSH ONETIME ONE Stop: 09/03/18 12:57 Last Admin: 09/03/18 13:00 Dose: 1 mg Sodium Chloride (Normal Saline) 1,000 mls @ 1,000 mls/hr IV .BOLUS ONE Stop: 09/03/18 12:17 Last Admin: 09/03/18 11:25 Dose: 1,000 mls/hr Piperacillin/Tazobactam/ (Dextrose 4.5 gm/ Premix) 100 mls @ 200 mls/hr IV ONETIME ONE Stop: 09/03/18 13:29 Last Admin: 09/03/18 13:04 Dose: 200 mls/hr Sodium Chloride (Normal Saline) 1,000 mls @ 500 mls/hr IV ASDIRECTED [facility] Last Admin: 09/03/18 13:00 Dose: 500 mls/hr Lactated Ringer's (Ringers, Lactated) 1,000 mls @ 125 mls/hr IV ASDIRECTED [facility] Last Admin: 09/03/18 16:07 Dose: 125 mls/hr Aztreonam 2 gm/ Sodium (Chloride) 100 mls @ 200 mls/hr IV NOW ONE Stop: 09/03/18 15:29 Last Admin: 09/03/18 14:56 Dose: 200 mls/hr Meropenem 500 mg/ Sodium (Chloride) 50 mls @ 100 mls/hr IV ONCALL ONE Stop: 09/03/18 17:29 Last Admin: 09/03/18 16:25 Dose: 100 mls/hr Piperacillin/Tazobactam/ (Dextrose 3.375 gm/ Premix) 50 mls @ 100 mls/hr IV Q6H NAHED Last Admin: 09/03/18 22:15 Dose: Not Given Sodium Chloride (Normal Saline) Confirm Administered Dose 500 mls @ as directed .ROUTE .ST-MED ONE Stop: 09/03/18 18:33 Aztreonam/Dextrose 1 gm/ (Premix) 50 mls @ 100 mls/hr IV Q8HR NAHED Meropenem 500 mg/ Sodium (Chloride) 50 mls @ 100 mls/hr IV Q8H NAHED Last Admin: 09/10/18 05:17 Dose: 100 mls/hr Sodium Chloride (Normal Saline) Confirm Administered Dose 50 mls @ as directed .ROUTE .[facility] ONE Stop: 09/03/18 22:01 Last Admin: 09/03/18 22:21 Dose: Not Given Aztreonam/Dextrose 1 gm/ (Premix) 50 mls @ 100 mls/hr IV Q8H NAHED Last Admin: 09/04/18 07:30 Dose: Not Given Dextrose/Lactated Ringer's (Dextrose 5%-Lactated Ringers) 1,000 mls @ 100 mls/ hr IV ASDIRECTED PRN PRN Reason: Hypotension Dextrose/Lactated Ringer's (Dextrose 5%-Lactated Ringers) 1,000 mls @ 100 mls/ hr IV ASDIRECTED NAHED Last Admin: 09/05/18 02:13 Dose: 100 mls/hr Lactated Ringer's (Ringers, Lactated) 1,000 mls @ 100 mls/hr IV ASDIRECTED NAHED Last Admin: 09/04/18 04:20 Dose: 100 mls/hr Lactated Ringer's (Ringers, Lactated) 500 mls @ 500 mls/hr IV .BOLUS NAHED Last Admin: 09/04/18 01:10 Dose: 500 mls/hr Lactated Ringer's (Ringers, Lactated) 500 mls @ 500 mls/hr IV .BOLUS NAHED Last Admin: 09/04/18 03:13 Dose: 500 mls/hr Propofol (Diprivan 100 Ml) 100 mls @ 1.361 mls/hr IV TITRATE NAHED; Protocol Last Titration: 09/04/18 07:52 Dose: 14 mcg/kg/min, 3.81 mls/hr Propofol (Diprivan 100 Ml) Confirm Administered Dose 100 mls @ as directed .ROUTE .[facility] ONE Stop: 09/04/18 03:45 Last Admin: 09/04/18 03:59 Dose: Not Given Lactated Ringer's (Ringers, Lactated) 500 mls @ 999 mls/hr IV .BOLUS [facility] Last Admin: 09/04/18 06:10 Dose: 999 mls/hr Aztreonam/Dextrose 1 gm/ (Premix) 50 mls @ 100 mls/hr IV Q8H [facility] Last Admin: 09/07/18 08:15 Dose: 100 mls/hr Lactated Ringer's (Ringers, Lactated) 500 mls @ 500 mls/hr IV ASDIRECTED [facility] Last Admin: 09/04/18 21:04 Dose: 500 mls/hr Lactated Ringer's (Ringers, Lactated) Confirm Administered Dose 1,000 mls @ as directed .ROUTE .[facility] ONE Stop: 09/04/18 13:11 Lactated Ringer's (Ringers, Lactated) Confirm Administered Dose 1,000 mls @ as directed .ROUTE .[facility] ONE Stop: 09/04/18 13:11 Sodium Chloride (Normal Saline) Confirm Administered Dose 10 mls @ as directed .ROUTE .[facility] ONE Stop: 09/04/18 13:15 Magnesium Sulfate 2 gm/ Premix 50 mls @ 25 mls/hr IV Q6H [facility] Stop: 09/06/18 11:59 Last Admin: 09/06/18 10:17 Dose: 25 mls/hr Lactated Ringer's (Ringers, Lactated) 500 mls @ 500 mls/hr IV ASDIRECTED [facility] Stop: 09/04/18 17:46 Lactated Ringer's (Ringers, Lactated) 500 mls @ 500 mls/hr IV ONETIME ONE Stop: 09/04/18 19:29 Last Admin: 09/04/18 18:37 Dose: 500 mls/hr Lactated Ringer's (Ringers, Lactated) 500 mls @ 1,000 mls/hr IV ONETIME ONE Stop: 09/04/18 23:30 Last Admin: 09/04/18 23:18 Dose: 1,000 mls/hr Lactated Ringer's (Ringers, Lactated) 500 mls @ 1,000 mls/hr IV ONETIME ONE Stop: 09/05/18 01:44 Last Admin: 09/05/18 01:15 Dose: 1,000 mls/hr Lactated Ringer's (Ringers, Lactated) 1,000 mls @ 150 mls/hr IV ASDIRECTED [facility] Last Admin: 09/05/18 02:13 Dose: 150 mls/hr Lactated Ringer's (Ringers, Lactated) 500 mls @ 1,000 mls/hr IV ONETIME ONE Stop: 09/05/18 03:38 Last Admin: 09/05/18 03:15 Dose: 1,000 mls/hr Multivitamins/Minerals 10 ml/Chromium/Copper/Manganese/Seleni/Zn 1 ml/ Amino Ac/ Electrol/Dextrose/Calcium 2,011 mls @ 82 mls/hr IV .BY DURATION [facility] Stop: 09/05/18 13:25 Last Admin: 09/05/18 13:32 Dose: Not Given Amino Ac/Electrol/Dextrose/Calcium (Clinimix E 5/15) 2,000 mls @ 82 mls/hr IV .BY DURATION [facility] Stop: 09/05/18 13:25 Vancomycin HCl 1 gm/ Sodium (Chloride) 250 mls @ 167 mls/hr IV Q24H [facility] Last Admin: 09/05/18 12:34 Dose: 167 mls/hr Sodium Chloride (Normal Saline) 1,000 mls @ 50 mls/hr IV ASDIRECTED [facility] Last Admin: 09/05/18 12:51 Dose: 50 mls/hr Multivitamins/Minerals 10 ml/Chromium/Copper/Manganese/Seleni/Zn 1 ml/ Amino Ac/ Electrol/Dextrose/Calcium 2,011 mls @ 82 mls/hr IV .BY DURATION [facility] Stop: 09/08/18 13:20 Last Admin: 09/07/18 15:09 Dose: 82 mls/hr Amino Ac/Electrol/Dextrose/Calcium (Clinimix E 5/15) 2,000 mls @ 82 mls/hr IV .BY DURATION [facility] Stop: 09/08/18 13:20 Vancomycin HCl 1 gm/ Sodium (Chloride) 250 mls @ 167 mls/hr IV Q24H [facility] Last Admin: 09/06/18 12:00 Dose: 167 mls/hr Sodium Chloride (Normal Saline) 500 mls @ 500 mls/hr IV ASDIRECTED ONE Stop: 09/05/18 16:29 Last Admin: 09/05/18 15:40 Dose: 500 mls/hr Sodium Chloride (Normal Saline) 1,000 mls @ 100 mls/hr IV ASDIRECTED [facility] Last Admin: 09/07/18 07:31 Dose: 100 mls/hr Potassium Phosphate 20 mmole/ (Sodium Chloride) 106.6667 mls @ 35 mls/hr IV Q3H [facility] Stop: 09/07/18 17:29 Last Admin: 09/07/18 15:01 Dose: 35 mls/hr Albumin Human (Albumin 25%) 25 gm in 100 mls @ 25 mls/hr IV DAILY [facility] Stop: 09/09/18 12:59 Last Admin: 09/09/18 08:25 Dose: 25 mls/hr Albumin Human (Albumin 25%) 25 gm in 100 mls @ 25 mls/hr IV Q24H [facility] Stop: 09/09/18 17:59 Last Admin: 09/09/18 14:32 Dose: 25 mls/hr Aztreonam 1 gm/ Sodium (Chloride) 50 mls @ 100 mls/hr IV Q8H [facility] Last Admin: 09/08/18 09:41 Dose: 100 mls/hr Vancomycin HCl 1 gm/ Sodium (Chloride) 250 mls @ 167 mls/hr IV Q18H [facility] Last Admin: 09/09/18 18:42 Dose: 167 mls/hr Sodium Chloride (Normal Saline) 1,000 mls @ 999 mls/hr IV .BOLUS ONE Stop: 09/07/18 17:39 Last Admin: 09/07/18 17:26 Dose: 999 mls/hr Potassium Acetate 40 meq/ (Sodium Chloride) 120 mls @ 30 mls/hr IV ONETIME ONE Stop: 09/08/18 13:59 Last Admin: 09/08/18 09:44 Dose: 30 mls/hr Sodium Chloride (Normal Saline) 100 mls @ 3 mls/sec IV ASDIRECTED NAHED Stop: 09/08/18 15:00 Last Admin: 09/08/18 14:17 Dose: 3 mls/sec Azithromycin 500 mg/ Sodium (Chloride) 250 mls @ 250 mls/hr IV Q24H [facility] Last Admin: 09/09/18 15:27 Dose: 250 mls/hr Gentamicin Sulfate 228 mg/ (Sodium Chloride) 105.7 mls @ 100 mls/hr IV ONETIME ONE Stop: 09/08/18 17:03 Last Admin: 09/08/18 16:19 Dose: 100 mls/hr Potassium Phosphate 15 mmole/ (Sodium Chloride) 105 mls @ 55 mls/hr IV Q2H [facility] Stop: 09/09/18 12:55 Last Admin: 09/09/18 15:27 Dose: 55 mls/hr Gentamicin Sulfate 228 mg/ (Sodium Chloride) 105.7 mls @ 100 mls/hr IV Q36H [facility] Last Admin: 09/10/18 03:55 Dose: 100 mls/hr Sodium Chloride (Normal Saline) 500 mls @ 999 mls/hr IV .BOLUS ONE Stop: 09/09/18 16:34 Last Admin: 09/09/18 16:18 Dose: 999 mls/hr Sodium Chloride (Normal Saline) 500 mls @ 999 mls/hr IV .BOLUS ONE Stop: 09/09/18 17:35 Last Admin: 09/09/18 17:18 Dose: 999 mls/hr Sodium Chloride (Normal Saline) 1,000 mls @ 125 mls/hr IV ASDIRECTED [facility] Last Admin: 09/10/18 01:41 Dose: 125 mls/hr Lactated Ringer's (Ringers, Lactated) 1,000 mls @ 125 mls/hr IV ASDIRECTED [facility] Last Admin: 09/11/18 01:06 Dose: 125 mls/hr Magnesium Sulfate 2 gm/ Premix 50 mls @ 25 mls/hr IV Q6H [facility] Stop: 09/13/18 05:59 Last Admin: 09/13/18 03:31 Dose: 25 mls/hr Potassium Phosphate 22.5 mmole (/ Dextrose/Water) 107.5 mls @ 27 mls/hr IV Q4H [facility] Stop: 09/11/18 17:29 Last Admin: 09/11/18 14:45 Dose: 27 mls/hr Sodium Chloride (Normal Saline) Confirm Administered Dose 10 mls @ as directed .ROUTE .STK-MED ONE Stop: 09/11/18 10:41 Potassium Chloride 40 meq/ (Premix) 100 mls @ 25 mls/hr IV ONETIME ONE Stop: 09/13/18 12:59 Last Admin: 09/13/18 09:31 Dose: 25 mls/hr Potassium Chloride 40 meq/ (Premix) 100 mls @ 25 mls/hr IV ONETIME ONE Stop: 09/13/18 17:59 Last Admin: 09/13/18 13:11 Dose: 25 mls/hr Iopamidol (Isovue-300 (61%)) 100 ml IV . DIRECTED PRN PRN Reason: RADIOLOGY EXAM Stop: 09/09/18 11:03 Last Admin: 09/08/18 14:16 Dose: 100 ml Lidocaine HCl (Xylocaine 2% Viscous) Confirm Administered Dose 15 ml .ROUTE .STK -MED ONE Stop: 09/12/18 11:15 Lidocaine HCl (Xylocaine 4% Top Soln) Confirm Administered Dose 50 ml .ROUTE .STK-MED ONE Stop: 09/12/18 11:15 Lidocaine HCl (Xylocaine 4% Top Soln) Confirm Administered Dose 50 ml .ROUTE .STK-MED ONE Stop: 09/14/18 06:57 Lidocaine/Epinephrine (Xylocaine 1% With Epinephrine 1:100,000) Confirm Administered Dose 50 ml .ROUTE .STK-MED ONE Stop: 09/07/18 06:48 Last Admin: 09/07/18 10:54 Dose: 18 ml Lidocaine/Epinephrine (Xylocaine 1% With Epinephrine 1:100,000) Confirm Administered Dose 50 ml .ROUTE .STK-MED ONE Stop: 09/11/18 09:07 Last Admin: 09/11/18 10:49 Dose: 2 ml Lorazepam (Ativan) 0.5 mg IVPUSH Q4H PRN PRN Reason: Nausea/Vomiting Meropenem (Merrem) Confirm Administered Dose 1,000 mg .ROUTE .STK-MED ONE Stop: 09/03/18 17:54 Last Admin: 09/03/18 18:32 Dose: 3,500 mg Meropenem (Merrem) Confirm Administered Dose 1,000 mg .ROUTE .STK-MED ONE Stop: 09/03/18 18:04 Meropenem (Merrem) Confirm Administered Dose 2,000 mg .ROUTE .STK-MED ONE Stop: 09/03/18 18:18 Meropenem (Merrem) Confirm Administered Dose 500 mg .ROUTE .STK-MED ONE Stop: 09/07/18 06:48 Last Admin: 09/07/18 10:53 Dose: 500 mg Metoprolol Tartrate (Lopressor) 25 mg PO ONETIME ONE Stop: 09/03/18 10:41 Last Admin: 09/03/18 11:00 Dose: 25 mg Metoprolol Tartrate (Lopressor) 5 mg IVPUSH Q6H [facility] Last Admin: 09/08/18 09:25 Dose: 5 mg Metoprolol Tartrate (Lopressor) 2.5 mg IVPUSH Q6H [facility] Last Admin: 09/10/18 03:55 Dose: 2.5 mg Metoprolol Tartrate (Lopressor) Confirm Administered Dose 5 mg .ROUTE .STK-MED ONE Stop: 09/08/18 21:53 Last Admin: 09/08/18 22:19 Dose: Not Given Metoprolol Tartrate (Lopressor) 2.5 mg IVPUSH Q4H [facility] Last Admin: 09/11/18 21:25 Dose: Not Given Neostigmine Methylsulfate (Neostigmine) Confirm Administered Dose 5 mg .ROUTE .STK-MED ONE Stop: 09/03/18 14:41 Neostigmine Methylsulfate (Neostigmine) Confirm Administered Dose 5 mg .ROUTE .STK-MED ONE Stop: 09/04/18 09:47 Non-Formulary Medication (Total Parenteral Nutrition, Central) 0 ml IV ASDIRECTED [facility] Stop: 09/12/18 13:31 Non-Formulary Medication (Total Parenteral Nutrition, Central) 0 ml IV ASDIRECTED [facility] Stop: 09/13/18 13:00 Ondansetron HCl (Zofran Odt) 4 mg PO Q6H PRN PRN Reason: Nausea able to take PO Ondansetron HCl (Zofran) 4 mg IV Q6H PRN PRN Reason: Nausea/Vomiting Ondansetron HCl (Zofran) Confirm Administered Dose 4 mg .ROUTE .STK-MED ONE Stop: 09/03/18 14:41 Ondansetron HCl (Zofran) Confirm Administered Dose 4 mg .ROUTE .STK-MED ONE Stop: 09/04/18 09:47 Pantoprazole Sodium (Protonix Iv) 40 mg IV Q12H [facility] Last Admin: 09/03/18 16:07 Dose: 40 mg Piperacillin Sod/Tazobactam Sod (Zosyn) 10.125 gm .XX ASDIRECTED NAHED Stop: 09/04/18 15:00 Last Admin: 09/04/18 14:04 Dose: 10.125 gm Propofol (Diprivan 20 Ml) Confirm Administered Dose 200 mg .ROUTE .STK-MED ONE Stop: 09/03/18 14:41 Propofol (Diprivan 20 Ml) Confirm Administered Dose 200 mg .ROUTE .STK-MED ONE Stop: 09/04/18 09:47 Propofol (Diprivan 20 Ml) Confirm Administered Dose 200 mg .ROUTE .STK-MED ONE Stop: 09/06/18 07:01 Rocuronium [place] (Zemuron) Confirm Administered Dose 50 mg .ROUTE .STK-MED ONE Stop: 09/03/18 14:41 Rocuronium [place] (Zemuron) Confirm Administered Dose 50 mg .ROUTE .STK-MED ONE Stop: 09/04/18 09:47 Succinylcholine Chloride (Quelicin) Confirm Administered Dose 200 mg .ROUTE .STK -MED ONE Stop: 09/03/18 14:41 Succinylcholine Chloride (Quelicin) Confirm Administered Dose 200 mg .ROUTE .STK -MED ONE Stop: 09/04/18 09:47 Succinylcholine Chloride (Quelicin) Confirm Administered Dose 200 mg .ROUTE .STK -MED ONE Stop: 09/06/18 07:01 - Exam Quality Assessment: Central Line/PICC, Urine Catheter, DVT Prophylaxis General: Sedated, Lethargic Neck: Supple Lungs: Normal Respiratory Effort, Decreased Breath Sounds Cardiovascular: Regular Rate, Regular Rhythm GI/Abdominal Exam: No Distention, Other (Colostomy bag produced an output of 205 mL) Extremities: Other (peripheral edema present) Skin: Warm Wound/Incisions: Dressing Dry and Intact - Problem List Review Problem List Initiated/Reviewed/Updated: Yes - Assessment Assessment:: 1. 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 Exploratory laparotomy with a. sigmoid colon resection with end colotomy plus Rosa procedure b. drainage of pericolonic abscess plus diffuse peritoneal cavity washout c. small bowel resection Date of procedure: 09/03/2018, Surgeon Christiano Estrada MD 3.Indication of central venous access 4. Diffuse feculent perforation with second look laparotomy showing: a. pelvic right subphrenic with fluid collection b. segment small bowel with increasing necrosis adjacent mesentery 5. Insertion Left subclavian triple-lumen catheter 6. Second look laparotomy with: a. drainage peritoneal inflammatory fluid collection b. drainage right subphrenic inflammatory fluid collection d. plus small bowel resection 7. Date of procedure: 09/04/2018, Surgeon, Christiano Estrada MD 8. Hypoalbuminemia 9. Ventilator dependence 10. SP Bronchoscopy. Bony Olson MD on 09/12/2018 11. Large volume mucoid pulmonary secretions, cleaned by bronchoscopy; Mucomyst started yesterday - Plan Plan:: 1. Type and cross, 2 unit packed red blood cells, transfuse 1 unit today 2. Continue current TPN rate and content 3. Administer Lasix 20 mg IV push 2 times a day, give 1 dose after transfusion 4. Administer Albumin 50g IV piggyback 1 time a day for 3 days 5. Obtain a sputum gram stain and culture + sensitivity on a bronchoscopy specimen 6. Continue present antibiotics while awaiting culture + sensitivity results 7. AM labs: CBC, CMP, Mg, Phosphorous, BNP and ABG in AM 8. Continue Mucomyst; consider re-bronchoscopy tomorrow AM 9. Weaning trial today
[2018-09-14] MEDS: Acetylcysteine 20% 200 MG/ML 4 ML Nebulizer Soln SDV NEB SCH ×4 (07:38→21:17)
[2018-09-14] MEDS: Albuterol/Ipratropium 3.0-0.5 MG/3 ML Neb Soln NEB SCH ×4 (07:38→21:17)
--- NOTE | 2018-09-14 09:31 | PCM.PN ---
- General Info Date of Service: 09/14/18 Subjective Update: there were no acute events overnight. She remains intubated and sedated. FiO2 is down to 35%. She is alert but not able to track movement around the room or interact. She has not had any fevers. No new positive culture results. Urine output has been acceptable. Functional Status: Reports: Pain Controlled - Review of Systems General: Denies: Fever - Patient Data Vitals - Most Recent: Last Vital Signs Temp 36.0 C 09/14/18 08:00 Pulse 139 H 09/14/18 08:00 Resp 30 H 09/14/18 08:00 BP 104/39 L 09/14/18 06:00 Pulse Ox 97 09/14/18 08:00 Weight - Most Recent: 45.359 kg I&O - Last 24 Hours: Intake & Output 09/13/18 09/14/18 09/14/18 22:59 06:59 14:59 Intake Total 2686 2137 100 Output Total 1625 1180 110 Balance 1061 957 -10 Lab Results Last 24 Hours: Laboratory Results - last 24 hr 09/13/18 09/14/18 09/14/18 Range/Units 14:00 04:40 05:00 WBC 17.0 H (4.5-11.0) K/uL RBC 2.52 L (3.30-5.50) M/uL Hgb 8.2 L (12.0-15.0) g/dL Hct 25.2 L (36.0-48.0) % MCV 100 H (80-98) fL MCH 33 H (27-31) pg MCHC 33 (32-36) % Plt Count 310 (150-400) K/uL Neut % (Auto) 92 H (36-66) % Lymph % (Auto) 2 L (24-44) % Cache % (Auto) 5 (2-6) % Eos % (Auto) 1 L (2-4) % Baso % (Auto) 0 (0-1) % Puncture Site Line ABG pH 7.499 H (7.350-7.450) ABG pCO2 37.6 (35.0-42.0) mmHg ABG pO2 94.8 (75.0-100.0) mmHg ABG HCO3 29.1 H (22.0-26.0) mmol/L ABG Total CO2 27.1 H (21.0-25.0) mmol/L ABG O2 Saturation 97.6 (95.0-98.0) % ABG O2 Content 11.5 L (15.0-23.0) %vol ABG Base Excess 5.8 mm/L ABG Hemoglobin 8.5 L (12.0-16.0) g/dL ABG Oxyhemoglobin 95.4 % ABG Carboxyhemoglobin 1.6 (0.0-1.6) % ABG Methemoglobin 0.7 % O2 Delivery Device Ventilator Oxygen Flow Rate L Sodium (140-148) mmol/L Potassium (3.6-5.2) mmol/L Chloride (100-108) mmol/L Carbon Dioxide (21-32) mmol/L Anion Gap (5.0-14.0) mmol/L BUN (7-18) mg/dL Creatinine (0.6-1.0) mg/dL Est Cr Clr Drug Dosing mL/min Estimated GFR (MDRD) (>60) Glucose (74-106) mg/dL Calcium (8.5-10.1) mg/dL Phosphorus (2.5-4.9) mg/dL Magnesium (1.8-2.4) mg/dL Total Bilirubin (0.2-1.0) mg/dL AST (15-37) U/L ALT (12-78) U/L Alkaline Phosphatase (46-116) U/L Total Protein (6.4-8.2) g/dL Albumin (3.4-5.0) g/dL Globulin (2.3-3.5) g/dL Albumin/Globulin Ratio (1.2-2.2) Random Gentamicin 4.9 (0.0-12.0) ug/mL Blood Type Gel Antibody Screen Crossmatch 09/14/18 09/14/18 Range/Units 05:00 06:45 WBC (4.5-11.0) K/uL RBC (3.30-5.50) M/uL Hgb (12.0-15.0) g/dL Hct (36.0-48.0) % MCV (80-98) fL MCH (27-31) pg MCHC (32-36) % Plt Count (150-400) K/uL Neut % (Auto) (36-66) % Lymph % (Auto) (24-44) % Cache % (Auto) (2-6) % Eos % (Auto) (2-4) % Baso % (Auto) (0-1) % Puncture Site ABG pH (7.350-7.450) ABG pCO2 (35.0-42.0) mmHg ABG pO2 (75.0-100.0) mmHg ABG HCO3 (22.0-26.0) mmol/L ABG Total CO2 (21.0-25.0) mmol/L ABG O2 Saturation (95.0-98.0) % ABG O2 Content (15.0-23.0) %vol ABG Base Excess mm/L ABG Hemoglobin (12.0-16.0) g/dL ABG Oxyhemoglobin % ABG Carboxyhemoglobin (0.0-1.6) % ABG Methemoglobin % O2 Delivery Device Oxygen Flow Rate L Sodium 142 (140-148) mmol/L Potassium 4.7 (3.6-5.2) mmol/L Chloride 107 (100-108) mmol/L Carbon Dioxide 30 (21-32) mmol/L Anion Gap 4.7 L (5.0-14.0) mmol/L BUN 50 H (7-18) mg/dL Creatinine 0.8 (0.6-1.0) mg/dL Est Cr Clr Drug Dosing 41.50 mL/min Estimated GFR (MDRD) > 60 (>60) Glucose 111 H (74-106) mg/dL Calcium 8.3 L (8.5-10.1) mg/dL Phosphorus 4.4 (2.5-4.9) mg/dL Magnesium 2.6 H D (1.8-2.4) mg/dL Total Bilirubin 0.6 (0.2-1.0) mg/dL AST 65 H (15-37) U/L ALT 104 H (12-78) U/L Alkaline Phosphatase 191 H (46-116) U/L Total Protein 4.7 L (6.4-8.2) g/dL Albumin 1.3 L (3.4-5.0) g/dL Globulin 3.4 (2.3-3.5) g/dL Albumin/Globulin Ratio 0.4 L (1.2-2.2) Random Gentamicin (0.0-12.0) ug/mL Blood Type O POSITIVE Gel Antibody Screen Negative Crossmatch See Detail Joseph Results Last 24 Hours: Microbiology 09/14/18 08:06 ADRY Preparation - Final Other 09/14/18 07:40 Gram Stain - Final Bronchial Aspirate 09/12/18 12:57 Gram Stain - Final Bronchial Aspirate - Mixed Respiratory Culture - Preliminary Yeast Isolated 09/13/18 10:20 Gram Stain - Final Other - Bronchial Wound Culture - Preliminary NO GROWTH AFTER 1 DAY Anaerobic Culture - Preliminary NO GROWTH AFTER 1 DAY Med Orders - Current: Current Medications Acetylcysteine (Mucomyst 20%) 200 mg NEB QIDRT NAHED Last Admin: 09/14/18 07:38 Dose: 200 mg Albuterol (Proventil Neb Soln) 2.5 mg NEB Q4H PRN PRN Reason: Dyspnea Albuterol/Ipratropium (Duoneb 3.0-0.5 Mg/3 Ml) 3 ml NEB QIDRT NAHED Last Admin: 09/14/18 07:38 Dose: 3 ml Furosemide (Lasix) 40 mg IVPUSH ONETIME ONE Stop: 09/14/18 09:29 Hydralazine HCl (Apresoline) 5 mg IVPUSH Q4H PRN PRN Reason: Hypertension Last Admin: 09/10/18 15:44 Dose: 5 mg Hydromorphone HCl (Dilaudid [employer]ill [employer] 15 Mg In Ns 30 Ml) 0 mg IV ASDIRECTED PRN; 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 Last Admin: 09/09/18 05:52 Dose: 15 mg Hydroxyzine HCl (Vistaril) 50 mg IM Q4H PRN PRN Reason: Pain Heparin Sodium (Porcine) 5,000 (units/ Sodium Chloride) 501 mls @ 5 mls/hr IV ASDIRECTED NAHED Last Admin: 09/13/18 14:03 Dose: 5 mls/hr Heparin Sodium (Porcine) 5,000 (units/ Sodium Chloride) 501 mls @ 5 mls/hr IV ASDIRECTED [facility]HED Last Admin: 09/13/18 13:59 Dose: 5 mls/hr Propofol (Diprivan 100 Ml) 100 mls @ 1.361 mls/hr IV TITRATE [facility]; Protocol Last Titration: 09/14/18 00:05 Dose: 25 mcg/kg/min, 6.804 mls/hr Sodium Chloride (Normal Saline) 1,000 mls @ 0 mls/hr IV ASDIRECTED [facility] Last Admin: 09/10/18 14:57 Dose: 12.5 mls/hr Multivitamins/Minerals 10 ml/Chromium/Copper/Manganese/Seleni/Zn 1 ml/ Amino Ac/ Electrol/Dextrose/Calcium 1,011 mls @ 62 mls/hr IV .BY DURATION [facility] Last Admin: 09/14/18 00:30 Dose: 62 mls/hr Amino Ac/Electrol/Dextrose/Calcium (Clinimix E 09/28) 1,000 mls @ 62 mls/hr IV .BY DURATION [facility] Last Admin: 09/13/18 08:11 Dose: 62 mls/hr Meropenem 500 mg/ Sodium (Chloride) 25 mls @ 50 mls/hr IV Q8H [facility] Last Admin: 09/14/18 05:18 Dose: 50 mls/hr Gentamicin Sulfate 228 mg/ (Sodium Chloride) 55.7 mls @ 55 mls/hr IV Q36H [facility] Last Admin: 09/13/18 03:33 Dose: 55 mls/hr Azithromycin 500 mg/ Dextrose/ (Water) 250 mls @ 250 mls/hr IV Q24H [facility] Last Admin: 09/13/18 15:55 Dose: 250 mls/hr Vancomycin HCl 1 gm/ Dextrose/ (Water) 250 mls @ 167 mls/hr IV Q24H [facility] Last Admin: 09/13/18 17:48 Dose: 167 mls/hr Fluconazole/Sodium Chloride (200 mg/ Premix) 100 mls @ 100 mls/hr IV Q24H [facility] Last Admin: 09/13/18 20:23 Dose: 100 mls/hr Albumin Human (Albumin 25%) 25 gm in 100 mls @ 25 mls/hr IV Q24H [facility] Stop: 09/16/18 11:59 Last Admin: 09/14/18 08:19 Dose: 25 mls/hr Albumin Human (Albumin 25%) 25 gm in 100 mls @ 25 mls/hr IV Q24H [facility] Stop: 09/16/18 15:59 Lactated Ringer's (Ringers, Lactated) 1,000 mls @ 25 mls/hr IV ASDIRECTED [facility] Lorazepam (Ativan) 0.5 mg IVPUSH Q3H PRN PRN Reason: AGITATION Last Admin: 09/05/18 03:50 Dose: 0.25 mg Metoprolol Tartrate (Lopressor) 2.5 mg IVPUSH Q4H PRN PRN Reason: Hypertension Last Admin: 09/12/18 02:33 Dose: 2.5 mg Naloxone HCl (Narcan) 0.1 mg IV ASDIRECTED PRN PRN Reason: decreased respiratory rate Pantoprazole Sodium (Protonix Iv) 40 mg IV Q24H [facility] Last Admin: 09/14/18 00:02 Dose: 40 mg Discontinued Medications Acetaminophen (Tylenol) 650 mg PO Q4H PRN PRN Reason: Pain (Mild 1-3)/fever Acetaminophen (Tylenol) 650 mg RECTAL Q4H PRN PRN Reason: Mild pain/fever Albuterol (Proventil Neb Soln) 2.5 mg NEB Q4H PRN PRN Reason: Shortness Of Breath/wheezing Albuterol/Ipratropium (Duoneb 3.0-0.5 Mg/3 Ml) 3 ml INH PREPRO ONE Stop: 09/03/18 17:01 Last Admin: 09/03/18 16:25 Dose: 3 ml Albuterol/Ipratropium (Duoneb 3.0-0.5 Mg/3 Ml) 3 ml NEB QID NAHED Last Admin: 09/13/18 21:11 Dose: 3 ml Aztreonam (Azactam) Confirm Administered Dose 1 gm .ROUTE .STK-MED ONE Stop: 09/03/18 21:44 Last Admin: 09/03/18 22:15 Dose: Not Given Benazepril HCl (Lotensin) 40 mg PO ONETIME ONE Stop: 09/03/18 10:41 Last Admin: 09/03/18 11:00 Dose: 40 mg Bupivacaine HCl (Marcaine 0.5%) Confirm Administered Dose 50 ml .ROUTE .STK-MED ONE Stop: 09/07/18 06:48 Last Admin: 09/07/18 10:53 Dose: 18 ml Bupivacaine HCl (Marcaine 0.5%) Confirm Administered Dose 50 ml .ROUTE .STK-MED ONE Stop: 09/11/18 09:07 Last Admin: 09/11/18 10:49 Dose: 2 ml Ropivacaine 22 ml/Dexamethasone 8 mg/Epinephrine HCl 0.4 mg/ Sodium Chloride 55.6 ml 0 ml NERVRT ASDIRECTED [facility] Ropivacaine 22 ml/Dexamethasone 8 mg/Epinephrine HCl 0.4 mg/ Sodium Chloride 55.6 ml 0 ml NERVRT ASDIRECTED [facility] Last Admin: 09/04/18 14:03 Dose: 80 syringe Ropivacaine 22 ml/Dexamethasone 8 mg/Epinephrine HCl 0.4 mg/ Sodium Chloride 55.6 ml 0 ml NERVRT ASDIRECTED [facility] Last Admin: 09/07/18 11:07 Dose: 80 syringe Dexamethasone (Dexamethasone) Confirm Administered Dose 4 mg .ROUTE .STK-MED ONE Stop: 09/03/18 14:41 Dexamethasone (Dexamethasone) Confirm Administered Dose 4 mg .ROUTE .STK-MED ONE Stop: 09/04/18 09:47 Fentanyl (Sublimaze) 25 mcg IVPUSH ONETIME ONE Stop: 09/03/18 13:57 Last Admin: 09/03/18 14:16 Dose: 25 mcg Fentanyl (Sublimaze) 25 mcg IVPUSH Q2H PRN PRN Reason: Pain (severe 7-10) Fentanyl (Sublimaze) Confirm Administered Dose 250 mcg .ROUTE .STK-MED ONE Stop: 09/03/18 14:41 Fentanyl (Sublimaze) Confirm Administered Dose 250 mcg .ROUTE .STK-MED ONE Stop: 09/04/18 09:46 Fentanyl (Sublimaze) Confirm Administered Dose 250 mcg .ROUTE .STK-MED ONE Stop: 09/04/18 13:57 Fentanyl (Sublimaze) Confirm Administered Dose 100 mcg .ROUTE .STK-MED ONE Stop: 09/11/18 10:36 Furosemide (Lasix) 20 mg IVPUSH ONETIME ONE Stop: 09/04/18 15:10 Last Admin: 09/04/18 15:18 Dose: 20 mg Furosemide (Lasix) 40 mg IV ONETIME ONE Stop: 09/06/18 08:16 Last Admin: 09/06/18 08:26 Dose: 40 mg Furosemide (Lasix) 20 mg IV Q12H [facility] Stop: 09/07/18 20:01 Last Admin: 09/07/18 20:10 Dose: 20 mg Furosemide (Lasix) 20 mg IVPUSH Q12H [facility] Stop: 09/08/18 19:01 Last Admin: 09/08/18 19:50 Dose: 20 mg Furosemide (Lasix) 20 mg IVPUSH ONETIME ONE Stop: 09/09/18 07:01 Last Admin: 09/09/18 08:14 Dose: 20 mg Furosemide (Lasix) 20 mg IVPUSH ONETIME ONE Stop: 09/09/18 11:01 Last Admin: 09/09/18 12:38 Dose: 20 mg Furosemide (Lasix) 20 mg IVPUSH ONETIME ONE Stop: 09/09/18 20:01 Furosemide (Lasix) 20 mg IV Q8H [facility] Stop: 09/11/18 00:31 Last Admin: 09/10/18 23:50 Dose: 20 mg Furosemide (Lasix) 20 mg IV Q8H [facility] Stop: 09/12/18 00:01 Last Admin: 09/11/18 23:34 Dose: 20 mg Furosemide (Lasix) 20 mg IVPUSH Q8H [facility] Stop: 09/13/18 02:31 Last Admin: 09/13/18 02:39 Dose: 20 mg Furosemide (Lasix) 20 mg IVPUSH Q8H [facility] Stop: 09/14/18 02:31 Last Admin: 09/14/18 02:29 Dose: 20 mg Gentamicin Sulfate (Gentamicin) 1 mg IV .Pharmacy to Dose [facility] Stop: 09/08/18 14:31 Glycopyrrolate (Robinul) Confirm Administered Dose 1 mg .ROUTE .STK-[facility] ONE Stop: 09/03/18 14:41 Glycopyrrolate (Robinul) Confirm Administered Dose 1 mg .ROUTE .[facility] ONE Stop: 09/04/18 09:47 Heparin Sodium (Porcine) (Heparin Sodium) Confirm Administered Dose 5,000 units .ROUTE .[facility] ONE Stop: 09/03/18 18:32 Heparin Sodium (Porcine) (Heparin Lock Flush 100 Units/Ml) Confirm Administered Dose 500 units .ROUTE .[facility] Stop: 09/04/18 13:14 Heparin Sodium (Porcine) (Heparin Lock Flush 100 Units/Ml) Confirm Administered Dose 1,000 units .ROUTE .[facility] ONE Stop: 09/11/18 09:07 Last Admin: 09/11/18 10:58 Dose: 1,000 units Heparin Sodium (Porcine) (Heparin Lock Flush 100 Units/Ml) Confirm Administered Dose 500 units .ROUTE .[facility]-MED ONE Stop: 09/11/18 10:44 Last Admin: 09/11/18 10:58 Dose: 500 units Hydromorphone HCl (Dilaudid) 0.5 mg IVPUSH ONETIME ONE Stop: 09/03/18 10:48 Last Admin: 09/03/18 11:00 Dose: 0.5 mg Hydromorphone HCl (Dilaudid) 0.5 mg IVPUSH ONETIME ONE Stop: 09/03/18 11:22 Last Admin: 09/03/18 11:25 Dose: 0.5 mg Hydromorphone HCl (Dilaudid) 0.5 mg IVPUSH ONETIME ONE Stop: 09/03/18 12:10 Last Admin: 09/03/18 12:12 Dose: 0.5 mg Hydromorphone HCl (Dilaudid) 0.5 mg IVPUSH ONETIME ONE Stop: 09/03/18 12:40 Last Admin: 09/03/18 12:44 Dose: 0.5 mg Hydromorphone HCl (Dilaudid) 1 mg IVPUSH ONETIME ONE Stop: 09/03/18 12:57 Last Admin: 09/03/18 13:00 Dose: 1 mg Sodium Chloride (Normal Saline) 1,000 mls @ 1,000 mls/hr IV .BOLUS ONE Stop: 09/03/18 12:17 Last Admin: 09/03/18 11:25 Dose: 1,000 mls/hr Piperacillin/Tazobactam/ (Dextrose 4.5 gm/ Premix) 100 mls @ 200 mls/hr IV ONETIME ONE Stop: 09/03/18 13:29 Last Admin: 09/03/18 13:04 Dose: 200 mls/hr Sodium Chloride (Normal Saline) 1,000 mls @ 500 mls/hr IV ASDIRECTED [facility] Last Admin: 09/03/18 13:00 Dose: 500 mls/hr Lactated Ringer's (Ringers, Lactated) 1,000 mls @ 125 mls/hr IV ASDIRECTED [facility] Last Admin: 09/03/18 16:07 Dose: 125 mls/hr Aztreonam 2 gm/ Sodium (Chloride) 100 mls @ 200 mls/hr IV NOW ONE Stop: 09/03/18 15:29 Last Admin: 09/03/18 14:56 Dose: 200 mls/hr Meropenem 500 mg/ Sodium (Chloride) 50 mls @ 100 mls/hr IV ONCALL ONE Stop: 09/03/18 17:29 Last Admin: 09/03/18 16:25 Dose: 100 mls/hr Piperacillin/Tazobactam/ (Dextrose 3.375 gm/ Premix) 50 mls @ 100 mls/hr IV Q6H [facility] Last Admin: 09/03/18 22:15 Dose: Not Given Sodium Chloride (Normal Saline) Confirm Administered Dose 500 mls @ as directed .ROUTE .STK-MED ONE Stop: 09/03/18 18:33 Aztreonam/Dextrose 1 gm/ (Premix) 50 mls @ 100 mls/hr IV Q8HR NAHED Meropenem 500 mg/ Sodium (Chloride) 50 mls @ 100 mls/hr IV Q8H [facility] Last Admin: 09/10/18 05:17 Dose: 100 mls/hr Sodium Chloride (Normal Saline) Confirm Administered Dose 50 mls @ as directed .ROUTE .STK-MED ONE Stop: 09/03/18 22:01 Last Admin: 09/03/18 22:21 Dose: Not Given Aztreonam/Dextrose 1 gm/ (Premix) 50 mls @ 100 mls/hr IV Q8H [facility] Last Admin: 09/04/18 07:30 Dose: Not Given Dextrose/Lactated Ringer's (Dextrose 5%-Lactated Ringers) 1,000 mls @ 100 mls/ hr IV ASDIRECTED PRN PRN Reason: Hypotension Dextrose/Lactated Ringer's (Dextrose 5%-Lactated Ringers) 1,000 mls @ 100 mls/ hr IV ASDIRECTED NAHED Last Admin: 09/05/18 02:13 Dose: 100 mls/hr Lactated Ringer's (Ringers, Lactated) 1,000 mls @ 100 mls/hr IV ASDIRECTED [facility] Last Admin: 09/04/18 04:20 Dose: 100 mls/hr Lactated Ringer's (Ringers, Lactated) 500 mls @ 500 mls/hr IV .BOLUS NAHED Last Admin: 09/04/18 01:10 Dose: 500 mls/hr Lactated Ringer's (Ringers, Lactated) 500 mls @ 500 mls/hr IV .BOLUS NAHED Last Admin: 09/04/18 03:13 Dose: 500 mls/hr Propofol (Diprivan 100 Ml) 100 mls @ 1.361 mls/hr IV TITRATE [facility]; Protocol Last Titration: 09/04/18 07:52 Dose: 14 mcg/kg/min, 3.81 mls/hr Propofol (Diprivan 100 Ml) Confirm Administered Dose 100 mls @ as directed .ROUTE .[facility] ONE Stop: 09/04/18 03:45 Last Admin: 09/04/18 03:59 Dose: Not Given Lactated Ringer's (Ringers, Lactated) 500 mls @ 999 mls/hr IV .BOLUS NAHED Last Admin: 09/04/18 06:10 Dose: 999 mls/hr Aztreonam/Dextrose 1 gm/ (Premix) 50 mls @ 100 mls/hr IV Q8H [facility] Last Admin: 09/07/18 08:15 Dose: 100 mls/hr Lactated Ringer's (Ringers, Lactated) 500 mls @ 500 mls/hr IV ASDIRECTED [facility] Last Admin: 09/04/18 21:04 Dose: 500 mls/hr Lactated Ringer's (Ringers, Lactated) Confirm Administered Dose 1,000 mls @ as directed .ROUTE .[facility] ONE Stop: 09/04/18 13:11 Lactated Ringer's (Ringers, Lactated) Confirm Administered Dose 1,000 mls @ as directed .ROUTE .[facility] ONE Stop: 09/04/18 13:11 Sodium Chloride (Normal Saline) Confirm Administered Dose 10 mls @ as directed .ROUTE .[facility] ONE Stop: 09/04/18 13:15 Magnesium Sulfate 2 gm/ Premix 50 mls @ 25 mls/hr IV Q6H [facility] Stop: 09/06/18 11:59 Last Admin: 09/06/18 10:17 Dose: 25 mls/hr Lactated Ringer's (Ringers, Lactated) 500 mls @ 500 mls/hr IV ASDIRECTED [facility] Stop: 09/04/18 17:46 Lactated Ringer's (Ringers, Lactated) 500 mls @ 500 mls/hr IV ONETIME ONE Stop: 09/04/18 19:29 Last Admin: 09/04/18 18:37 Dose: 500 mls/hr Lactated Ringer's (Ringers, Lactated) 500 mls @ 1,000 mls/hr IV ONETIME ONE Stop: 09/04/18 23:30 Last Admin: 09/04/18 23:18 Dose: 1,000 mls/hr Lactated Ringer's (Ringers, Lactated) 500 mls @ 1,000 mls/hr IV ONETIME ONE Stop: 09/05/18 01:44 Last Admin: 09/05/18 01:15 Dose: 1,000 mls/hr Lactated Ringer's (Ringers, Lactated) 1,000 mls @ 150 mls/hr IV ASDIRECTED [facility] Last Admin: 09/05/18 02:13 Dose: 150 mls/hr Lactated Ringer's (Ringers, Lactated) 500 mls @ 1,000 mls/hr IV ONETIME ONE Stop: 09/05/18 03:38 Last Admin: 09/05/18 03:15 Dose: 1,000 mls/hr Multivitamins/Minerals 10 ml/Chromium/Copper/Manganese/Seleni/Zn 1 ml/ Amino Ac/ Electrol/Dextrose/Calcium 2,011 mls @ 82 mls/hr IV .BY DURATION [facility] Stop: 09/05/18 13:25 Last Admin: 09/05/18 13:32 Dose: Not Given Amino Ac/Electrol/Dextrose/Calcium (Clinimix E 15) 2,000 mls @ 82 mls/hr IV .BY DURATION [facility] Stop: 09/05/18 13:25 Vancomycin HCl 1 gm/ Sodium (Chloride) 250 mls @ 167 mls/hr IV Q24H [facility] Last Admin: 09/05/18 12:34 Dose: 167 mls/hr Sodium Chloride (Normal Saline) 1,000 mls @ 50 mls/hr IV ASDIRECTED [facility] Last Admin: 09/05/18 12:51 Dose: 50 mls/hr Multivitamins/Minerals 10 ml/Chromium/Copper/Manganese/Seleni/Zn 1 ml/ Amino Ac/ Electrol/Dextrose/Calcium 2,011 mls @ 82 mls/hr IV .BY DURATION [facility] Stop: 09/08/18 13:20 Last Admin: 09/07/18 15:09 Dose: 82 mls/hr Amino Ac/Electrol/Dextrose/Calcium (Clinimix E 5/15) 2,000 mls @ 82 mls/hr IV .BY DURATION [facility] Stop: 09/08/18 13:20 Vancomycin HCl 1 gm/ Sodium (Chloride) 250 mls @ 167 mls/hr IV Q24H [facility] Last Admin: 09/06/18 12:00 Dose: 167 mls/hr Sodium Chloride (Normal Saline) 500 mls @ 500 mls/hr IV ASDIRECTED ONE Stop: 09/05/18 16:29 Last Admin: 09/05/18 15:40 Dose: 500 mls/hr Sodium Chloride (Normal Saline) 1,000 mls @ 100 mls/hr IV ASDIRECTED [facility] Last Admin: 09/07/18 07:31 Dose: 100 mls/hr Potassium Phosphate 20 mmole/ (Sodium Chloride) 106.6667 mls @ 35 mls/hr IV Q3H [facility] Stop: 09/07/18 17:29 Last Admin: 09/07/18 15:01 Dose: 35 mls/hr Albumin Human (Albumin 25%) 25 gm in 100 mls @ 25 mls/hr IV DAILY [facility] Stop: 09/09/18 12:59 Last Admin: 09/09/18 08:25 Dose: 25 mls/hr Albumin Human (Albumin 25%) 25 gm in 100 mls @ 25 mls/hr IV Q24H [facility] Stop: 09/09/18 17:59 Last Admin: 09/09/18 14:32 Dose: 25 mls/hr Aztreonam 1 gm/ Sodium (Chloride) 50 mls @ 100 mls/hr IV Q8H [facility] Last Admin: 09/08/18 09:41 Dose: 100 mls/hr Vancomycin HCl 1 gm/ Sodium (Chloride) 250 mls @ 167 mls/hr IV Q18H [facility] Last Admin: 09/09/18 18:42 Dose: 167 mls/hr Sodium Chloride (Normal Saline) 1,000 mls @ 999 mls/hr IV .BOLUS ONE Stop: 09/07/18 17:39 Last Admin: 09/07/18 17:26 Dose: 999 mls/hr Potassium Acetate 40 meq/ (Sodium Chloride) 120 mls @ 30 mls/hr IV ONETIME ONE Stop: 09/08/18 13:59 Last Admin: 09/08/18 09:44 Dose: 30 mls/hr Sodium Chloride (Normal Saline) 100 mls @ 3 mls/sec IV ASDIRECTED [facility] Stop: 09/08/18 15:00 Last Admin: 09/08/18 14:17 Dose: 3 mls/sec Azithromycin 500 mg/ Sodium (Chloride) 250 mls @ 250 mls/hr IV Q24H [facility] Last Admin: 09/09/18 15:27 Dose: 250 mls/hr Gentamicin Sulfate 228 mg/ (Sodium Chloride) 105.7 mls @ 100 mls/hr IV ONETIME ONE Stop: 09/08/18 17:03 Last Admin: 09/08/18 16:19 Dose: 100 mls/hr Potassium Phosphate 15 mmole/ (Sodium Chloride) 105 mls @ 55 mls/hr IV Q2H [facility] Stop: 09/09/18 12:55 Last Admin: 09/09/18 15:27 Dose: 55 mls/hr Gentamicin Sulfate 228 mg/ (Sodium Chloride) 105.7 mls @ 100 mls/hr IV Q36H [facility] Last Admin: 09/10/18 03:55 Dose: 100 mls/hr Sodium Chloride (Normal Saline) 500 mls @ 999 mls/hr IV .BOLUS ONE Stop: 09/09/18 16:34 Last Admin: 09/09/18 16:18 Dose: 999 mls/hr Sodium Chloride (Normal Saline) 500 mls @ 999 mls/hr IV .BOLUS ONE Stop: 09/09/18 17:35 Last Admin: 09/09/18 17:18 Dose: 999 mls/hr Sodium Chloride (Normal Saline) 1,000 mls @ 125 mls/hr IV ASDIRECTED [facility] Last Admin: 09/10/18 01:41 Dose: 125 mls/hr Lactated Ringer's (Ringers, Lactated) 1,000 mls @ 125 mls/hr IV ASDIRECTED [facility] Last Admin: 09/11/18 01:06 Dose: 125 mls/hr Magnesium Sulfate 2 gm/ Premix 50 mls @ 25 mls/hr IV Q6H [facility] Stop: 09/13/18 05:59 Last Admin: 09/13/18 03:31 Dose: 25 mls/hr Potassium Phosphate 22.5 mmole (/ Dextrose/Water) 107.5 mls @ 27 mls/hr IV Q4H [facility] Stop: 09/11/18 17:29 Last Admin: 09/11/18 14:45 Dose: 27 mls/hr Lactated Ringer's (Ringers, Lactated) 1,000 mls @ 75 mls/hr IV ASDIRECTED [facility] Last Admin: 09/13/18 22:27 Dose: 75 mls/hr Sodium Chloride (Normal Saline) Confirm Administered Dose 10 mls @ as directed .ROUTE .STK-MED ONE Stop: 09/11/18 10:41 Potassium Chloride 40 meq/ (Premix) 100 mls @ 25 mls/hr IV ONETIME ONE Stop: 09/13/18 12:59 Last Admin: 09/13/18 09:31 Dose: 25 mls/hr Potassium Chloride 40 meq/ (Premix) 100 mls @ 25 mls/hr IV ONETIME ONE Stop: 09/13/18 17:59 Last Admin: 09/13/18 13:11 Dose: 25 mls/hr Iopamidol (Isovue-300 (61%)) 100 ml IV . DIRECTED PRN PRN Reason: RADIOLOGY EXAM Stop: 09/09/18 11:03 Last Admin: 09/08/18 14:16 Dose: 100 ml Lidocaine HCl (Xylocaine 2% Viscous) Confirm Administered Dose 15 ml .ROUTE .STK -MED ONE Stop: 09/12/18 11:15 Lidocaine HCl (Xylocaine 4% Top Soln) Confirm Administered Dose 50 ml .ROUTE .STK-MED ONE Stop: 09/12/18 11:15 Lidocaine HCl (Xylocaine 4% Top Soln) Confirm Administered Dose 50 ml .ROUTE .STK-MED ONE Stop: 09/14/18 06:57 Last Admin: 09/14/18 07:20 Dose: 20 ml Lidocaine/Epinephrine (Xylocaine 1% With Epinephrine 1:100,000) Confirm Administered Dose 50 ml .ROUTE .STK-MED ONE Stop: 09/07/18 06:48 Last Admin: 09/07/18 10:54 Dose: 18 ml Lidocaine/Epinephrine (Xylocaine 1% With Epinephrine 1:100,000) Confirm Administered Dose 50 ml .ROUTE .STK-MED ONE Stop: 09/11/18 09:07 Last Admin: 09/11/18 10:49 Dose: 2 ml Lorazepam (Ativan) 0.5 mg IVPUSH Q4H PRN PRN Reason: Nausea/Vomiting Meropenem (Merrem) Confirm Administered Dose 1,000 mg .ROUTE .STK-MED ONE Stop: 09/03/18 17:54 Last Admin: 09/03/18 18:32 Dose: 3,500 mg Meropenem (Merrem) Confirm Administered Dose 1,000 mg .ROUTE .STK-MED ONE Stop: 09/03/18 18:04 Meropenem (Merrem) Confirm Administered Dose 2,000 mg .ROUTE .STK-MED ONE Stop: 09/03/18 18:18 Meropenem (Merrem) Confirm Administered Dose 500 mg .ROUTE .STK-MED ONE Stop: 09/07/18 06:48 Last Admin: 09/07/18 10:53 Dose: 500 mg Metoprolol Tartrate (Lopressor) 25 mg PO ONETIME ONE Stop: 09/03/18 10:41 Last Admin: 09/03/18 11:00 Dose: 25 mg Metoprolol Tartrate (Lopressor) 5 mg IVPUSH Q6H [facility] Last Admin: 09/08/18 09:25 Dose: 5 mg Metoprolol Tartrate (Lopressor) 2.5 mg IVPUSH Q6H [facility] Last Admin: 09/10/18 03:55 Dose: 2.5 mg Metoprolol Tartrate (Lopressor) Confirm Administered Dose 5 mg .ROUTE .STK-MED ONE Stop: 09/08/18 21:53 Last Admin: 09/08/18 22:19 Dose: Not Given Metoprolol Tartrate (Lopressor) 2.5 mg IVPUSH Q4H [facility] Last Admin: 09/11/18 21:25 Dose: Not Given Neostigmine Methylsulfate (Neostigmine) Confirm Administered Dose 5 mg .ROUTE .STK-MED ONE Stop: 09/03/18 14:41 Neostigmine Methylsulfate (Neostigmine) Confirm Administered Dose 5 mg .ROUTE .STK-MED ONE Stop: 09/04/18 09:47 Non-Formulary Medication (Total Parenteral Nutrition, Central) 0 ml IV ASDIRECTED [facility] Stop: 09/12/18 13:31 Non-Formulary Medication (Total Parenteral Nutrition, Central) 0 ml IV ASDIRECTED [facility] Stop: 09/13/18 13:00 Ondansetron HCl (Zofran Odt) 4 mg PO Q6H PRN PRN Reason: Nausea able to take PO Ondansetron HCl (Zofran) 4 mg IV Q6H PRN PRN Reason: Nausea/Vomiting Ondansetron HCl (Zofran) Confirm Administered Dose 4 mg .ROUTE .STK-MED ONE Stop: 09/03/18 14:41 Ondansetron HCl (Zofran) Confirm Administered Dose 4 mg .ROUTE .STK-MED ONE Stop: 09/04/18 09:47 Pantoprazole Sodium (Protonix Iv) 40 mg IV Q12H [facility] Last Admin: 09/03/18 16:07 Dose: 40 mg Piperacillin Sod/Tazobactam Sod (Zosyn) 10.125 gm .XX ASDIRECTED [facility] Stop: 09/04/18 15:00 Last Admin: 09/04/18 14:04 Dose: 10.125 gm Propofol (Diprivan 20 Ml) Confirm Administered Dose 200 mg .ROUTE .STK-MED ONE Stop: 09/03/18 14:41 Propofol (Diprivan 20 Ml) Confirm Administered Dose 200 mg .ROUTE .STK-MED ONE Stop: 09/04/18 09:47 Propofol (Diprivan 20 Ml) Confirm Administered Dose 200 mg .ROUTE .STK-MED ONE Stop: 09/06/18 07:01 Rocuronium [place] (Zemuron) Confirm Administered Dose 50 mg .ROUTE .STK-MED ONE Stop: 09/03/18 14:41 Rocuronium [place] (Zemuron) Confirm Administered Dose 50 mg .ROUTE .STK-MED ONE Stop: 09/04/18 09:47 Succinylcholine Chloride (Quelicin) Confirm Administered Dose 200 mg .ROUTE .STK -MED ONE Stop: 09/03/18 14:41 Succinylcholine Chloride (Quelicin) Confirm Administered Dose 200 mg .ROUTE .STK -MED ONE Stop: 09/04/18 09:47 Succinylcholine Chloride (Quelicin) Confirm Administered Dose 200 mg .ROUTE .STK -MED ONE Stop: 09/06/18 07:01 - Exam Quality Assessment: Supplemental Oxygen General: Alert, No Acute Distress, Sedated. No: Oriented, Cooperative HEENT: Pupils Equal Lungs: Decreased Breath Sounds (both bases). No: Normal Respiratory Effort ( tachypnea ) Cardiovascular: Regular Rhythm, Tachycardia GI/Abdominal Exam: Soft, No Distention, Abnormal Bowel Sounds Extremities: Pedal Edema (to the waist ). No: Increased Warmth Skin: Warm, Dry Psy/Mental Status: Alert. No: Agitated - Problem List & Annotations (1) Diverticulitis of colon with perforation SNOMED Code(s): 53349320 Code(s): K57.20 - DVTRCLI OF LG INT W PERFORATION AND ABSCESS W/O BLEEDING Status: Acute Current Visit: Yes Qualifiers: Diverticulitis bleeding: without bleeding Qualified Code(s): K57.20 - Diverticulitis of large intestine with perforation and abscess without bleeding (2) Sepsis SNOMED Code(s): 25298036 Code(s): A41.9 - SEPSIS, UNSPECIFIED ORGANISM Status: Acute Current Visit : Yes Qualifiers: Sepsis type: sepsis due to unspecified organism Qualified Code(s): A41.9 - Sepsis, unspecified organism (3) Acute kidney injury SNOMED Code(s): 38802292, 70281955 Code(s): N17.9 - ACUTE KIDNEY FAILURE, UNSPECIFIED Status: Acute Current Visit: Yes (4) Leukopenia SNOMED Code(s): 75614277, 858080197 Code(s): D72.819 - DECREASED WHITE BLOOD CELL COUNT, UNSPECIFIED Status: Acute Current Visit: Yes Qualifiers: Leukopenia type: neutropenia Neutropenia type: other Qualified Code(s): D70.8 - Other neutropenia - Problem List Review Problem List Initiated/Reviewed/Updated: Yes - My Orders Last 24 Hours: My Active Orders 09/14/18 09:26 Weight Daily [Height and Weight] [RC] DAILY 09/14/18 09:28 Furosemide [Lasix] 40 mg IVPUSH ONETIME ONE 09/14/18 09:30 Lactated Ringers [Ringers, Lactated] 1,000 ml IV ASDIRECTED - Plan Plan:: ASSESSMENT AND PLAN Perforated sigmoid colon with sepsis - Initial surgical resection on 09/03 and Second Look laparotomy on 09/04. Sepsis has resolved. Cultures growing Klebsiella , Escherichia coli and anaerobic bacteria. stable from the standpoint. -Continue Meropenem -Pain control with DINING ROOM HOST -Follow-up cultures -TPN Acute respiratory failure with hypoxia and hypercapnia - CT scan abdomen and pelvis obtained 09/08 shows evidence of bilateral pulmonary infiltrates consistent with infection, antibiotics have been changed to cover for pulmonary infection. Oxygenation has continued to improve with serial bronchoscopies. Secretions have been decreasing. mental status seems to be the largest limiting factor for extubation at this time. patient has significant edema and would benefit from more aggressive diuresis. -Therapeutic bronchoscopy completed this morning -furosemide 40 mg 1 and re-dose based on response -Continue gentamicin and azithromycin -Continue mechanical ventilation -Sedation is needed to avoid significant agitation -Soft wrist restraints -repeat weaning trial again in the morning Anemia of critical illness - slow decline in hemoglobin. She is scheduled to receive 1 unit of packed red blood cells this morning. Acute kidney injury - renal function improved and stable. -Management as above -Repeat labs in the morning Hyperactive delirium -She is now sedated with her intubation. -Symptomatically management and treatment of the above conditions Maintenance issues - - DVT prophylaxis - mechanical - GI prophylaxis - PPI - Nutrition - nothing by mouth - Rubin catheter - placed for strict intake and output monitoring and a critical patient Disposition - discharge plan depending on needs at the time of discharge Santana Cunningham M.D.
[2018-09-14] MEDS ORDERED: Furosemide 40 MG/4 ML VIAL IVPUSH ONE (10:00)
[2018-09-14] MEDS: Lactated Ringers 1,000 ML IV SCH (11:48)
--- NOTE | 2018-09-14 13:20 | OR ---
DATE OF PROCEDURE: 09/07/2018 PREOPERATIVE DIAGNOSIS: Open abdominal incision. POSTOPERATIVE DIAGNOSIS: Open abdominal incision. OPERATIVE PROCEDURE: Delayed primary closure of open abdominal incision. ANESTHESIA: IV sedation plus local. INDICATION FOR PROCEDURE: A 77-year-old status post perforated diverticulitis and increased soilage with initial operation followed by second look operation as well as involving some contamination of the underlying subcutaneous tissue. Plan is to proceed with primary closure at this time. Potential risks of the procedure were reviewed with the patient's son, Lito Muniz, and he wishes to proceed. DETAILS OF THE PROCEDURE: The patient was placed in a semi-sitting position in the intensive care unit and being mechanically ventilated. some additional propofol dosing was then initiated and the previous dressing was taken down and wound was found to be intact. The area was then prepped and draped. Anesthetized with 1% lidocaine and irrigated with meropenem-containing saline solution. The incision was then closed with some 2 layers of 3-0 and 4-0 Vicryl stitch deep and yassine for the skin. Bilateral transversus abdominis plane blocks were then placed using ultrasound guidance and procedure was concluded. Dressing was applied. The patient was taken to the recovery room in satisfactory condition. Christiano Estrada MD /[id number]
[2018-09-14] MEDS ORDERED: Furosemide 20 MG/2 ML VIAL IVPUSH SCH (14:00)
--- NOTE | 2018-09-14 14:23 | OR ---
DATE OF PROCEDURE: 09/13/2018 PREOPERATIVE DIAGNOSIS: Bronchial mucus plugging. POSTOPERATIVE DIAGNOSIS: Bronchial mucus plugging. PROCEDURE: Flexible bronchoscopy with aspiration of the mucus. ANESTHESIA: None. SURGEON: Vicente Olson MD INDICATION: This 77-year-old white female is on a ventilator after suffering perforated sigmoid diverticulitis. Yesterday, problems with hypoxia were occurring. A request was made for bronchoscopy. We removed multiple mucus plugs. A request to repeat this today was made. She is doing better than she was. I counseled her son, Lito for this, and he gave his informed consent to proceed with a bronchoscopy. DESCRIPTION OF PROCEDURE: The bronchoscopy access port was attached to the endotracheal tube. Time-out was held. The flexible video Olympus bronchoscope was then passed through the access tube down the endotracheal tube to the pham. The pham was sharp. There was some mucus present. We aspirated this free. The scope was passed down the left mainstem bronchus. Residual mucus was encountered, but we did not see any obvious bronchial plugging. The scope was brought back up into the area of the pham and down the right mainstem bronchus. We encountered more mucus which was removed and there was one segmental bronchus that was plugged. This was aspirated free. When no more mucus could be obtained, the scope was removed. She tolerated the procedure well. We will send this for Gram stain and culture. Vicente Olson MD /[id number] MTDD
--- NOTE | 2018-09-14 14:23 | OR ---
DATE OF PROCEDURE: 09/12/2018 PREOPERATIVE DIAGNOSES: Pneumonia, hypoxia. POSTOPERATIVE DIAGNOSES: Pneumonia, hypoxia, mucus plugging. PROCEDURE: Flexible bronchoscopy with removal of mucus plugging, right greater than left. ANESTHESIA: None. SURGEON: Vicente Olson MD INDICATION: This 77-year-old white female suffered a perforated sigmoid diverticulitis. She had gross stool in her abdomen. She is critically ill. She is on a ventilator. There are problems with hypoxia, a request was made for bronchoscopy to evaluate for pneumonia and to remove any mucus plugging encountered. Informed consent for this was obtained from her son. DESCRIPTION OF PROCEDURE: The ventilator was placed to 100% oxygen from 50. The flexible bronchoscopy access port was attached to the endotracheal tube. The flexible fiberoptic video bronchoscope was passed through the access port down into the trachea. The pham appeared sharp. We went down into the left side first. We encountered some minor mucus plugging which was aspirated free. The scope was then brought back to the pham and down into the right mainstem bronchus with quite extensive mucus plugging encountered with aspiration of the mucus plugging and having to relieve obstruction in the scope by removing it and flushing it. We were able to clear all the mucus plugging on the right side. We then washed with saline on both sides and aspirated this free. The scope was removed. She tolerated the procedure well. She will be placed back on her prior ventilator settings including an 0.5 FiO2. We will send the material for routine bronchoscopy evaluation including cultures. Vicente Olson MD /[id number]
--- NOTE | 2018-09-14 14:50 | OR ---
DATE OF PROCEDURE: 09/03/2018 SURGEON: Christiano Estrada MD PREOPERATIVE DIAGNOSES: Probable perforated sigmoid diverticulitis with free intraperitoneal air. POSTOPERATIVE DIAGNOSES: 1. Perforated sigmoid diverticulitis with pericolonic abscess and diffuse abdominal and pelvic soilage/peritonitis. 2. Area of small bowel and adjacent small bowel mesentery partially necrotic. OPERATIVE PROCEDURES: Exploratory laparotomy with: 1. 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 2. Drainage of pericolonic abscess and diffuse peritoneal cavity washout (97958). 3. Small bowel resection (25387). ANESTHESIA: General. DANCE COACH: PABLO Ross INDICATION FOR PROCEDURE: The patient presents with obvious quite severe sepsis and abdominal pain. The history of this abdominal pain goes back somewhere in the range of 3 days, and on CT scan, she was noted to have what appeared to most likely be a perforated sigmoid diverticulitis and a large amount of fluid and air in the pelvis, as well as to a lesser extent throughout the remaining abdomen. Plan is to proceed with an exploratory laparotomy with bowel resection. The need for colostomy was reviewed with patient, as well as son, who is present. Potential risks otherwise including bleeding, infection, and leaks from various GI tract closures were all reviewed along with possibility of cardiopulmonary, septic, or hemorrhagic complications leading to , and the patient and son wished to proceed. DETAILS OF PROCEDURE: The patient was taken to the operating room and placed in a supine position. After general endotracheal anesthesia was induced, she was converted to a lithotomy position. Rubin catheter was inserted and the abdomen prepped and draped. Nasogastric tube had also been placed at that time. A midline incision, which eventually extended from a handsbreadth above the umbilicus to the pubis, was made and carried down through the full-thickness of the abdominal wall. On entering the peritoneal cavity, there was obviously some green purulent material present. As one dissected downwards further into the pelvis, it revealed more of a well-defined abscess in that location. Cultures of that were obtained and abscess cavity evacuated. Exploration did confirm that the primary pathology appeared to be a perforated sigmoid colon diverticulitis. At that point, a stitch was placed in the site of perforation to avoid any additional soilage, and we then commenced with an extensive washout. There was quite a bit of green staining of the peritoneal surfaces, including the viscera and non-visceral peritoneum, and this extended up to the diaphragms on both sides. In the supracolic area of the abdomen, the intensity of the contamination was certainly quite a bit less than the lower abdomen, but it was present in all areas to some extent. Several liters of meropenem- containing saline solution were used to carefully wash out all areas of the peritoneal cavity. The patient had some omentum present that was not amenable to being washed out, and the soilage was more or less drained, and that portion of the omentum was excised with a GRACE stapler. It was also noted that one area of small bowel had some necrosis of the wall along the adjacent mesentery and that needed to be resected as well. At this point, the junction of the descending and sigmoid colon was divided with a GRACE stapler, as was the upper rectum. Any mesentery between those 2 points was divided with GRACE yassine and the sigmoid colon specimen delivered from the field. Small-bowel resection was then also accomplished, dividing the bowel proximally and distally with GRACE stapler, as was the underlying mesentery, and small bowel was then reconnected using an internal firing of 60 mm followed by a 30 mm GRACE stapler, and the common opening then closed transversely. The angles of anastomosis and mesenteric defect were approximated using 3-0 Vicryl stitch. At this point, it was felt that we would need to do a second-look type procedure on this patient tomorrow to rewash things out to minimize chances of subsequent abscess formation, and therefore, no drains were placed. In the left mid abdomen, in what appeared to be a fairly smooth area, a disk of skin and subcutaneous tissue was incised, and a cross-type incision placed in the rectus sheath, which allowed spreading of the musculature and division and spreading of the underlying peritoneum. The descending colon was then freed up from the lateral peritoneal attachments and then brought out through the colostomy site without difficulty. It was affixed within with some 3-0 Vicryl stitch to the underlying peritoneum and to the fascia as it passed through the rectus sheath. It was also affixed to the colon at that point, and following this, the midline fascia was approximated with #2 Vicryl stitch and packed open with iodoform gauze. Colostomy was then matured using 3-0 Vicryl stitch at the excision of the staple line. Mucosa of the colostomy appeared to be viable. The patient was then returned to the intensive care unit. We did maintain a ventilated state in this case, as there was quite a high risk for developing septic complications, such as ARDS over the ensuing hours, and we will be planning to proceed with a second-look procedure tomorrow with a general anesthetic as well. Christiano Estrada MD /[id number]
--- NOTE | 2018-09-14 15:24 | OR ---
DATE OF PROCEDURE: 09/11/2018 SURGEON: Christiano Estrada MD PREOPERATIVE DIAGNOSIS: Indication for long-term central venous access. POSTOPERATIVE DIAGNOSIS: Indication for long-term central venous access. PROCEDURE: Insertion of double-lumen Wilkinson catheter via right subclavian vein approach ([id number]). ANESTHESIA: Local plus IV sedation. SALES REPRESENTATIVE CONSULTANT: PABLO Ross. INDICATION FOR PROCEDURE: This is a 77-year-old female, presently being treated for critical illness with persistent element of sepsis following a diffuse feculent peritonitis- related perforated diverticulitis. At this point, it appears she is going to need a relatively long-term venous access, and Wilkinson catheter will be placed. This will allow an adequate central venous access and limit problems with infectious issues due to the fibrous cuff of the Wilkinson catheter. Potential risks of the procedure were reviewed with the patient's son, Lito Muniz, and he wishes to proceed. Additionally, the patient is having some leakage from her REMY drain sites, which had been removed yesterday, and these will be sutured to stop that leaking problem. DETAILS OF PROCEDURE: The patient was taken to the operating room and placed in supine position. IV sedation was administered. The patient already had an endotracheal tube in place, and the upper chest and neck areas were prepped and draped. The right subclavian area was then anesthetized with 1% lidocaine. The right subclavian vein was then cannulated and guidewire was manipulated from there into the superior vena cava. The area extending roughly 3 fingerbreadths inferior to the original puncture site was then anesthetized and a second stab wound placed and the Wilkinson catheter then tunneled between those 2 incisions and then cut off, such that the tip would lie in the superior vena cava/right atrial junction. Over the original needle, then introducer and peel-away catheter positioned, and over this, then the Wilkinson catheter deployed without difficulty. Good in and outflow was noted. Ports were flushed with heparinized saline. The Wilkinson catheter was sutured externally with 3-0 Vicryl stitch and the skin closed at the puncture site with a 4-0 Vicryl skin stitch. Dressing was applied. The 2 points of leaking in the abdominal wall, where the REMY drain had been placed, were then also prepped and draped and the [id number] stitches placed with 3-0 Vicryl, which occluded the leakage. These were also reinforced with Dermabond, as was the third REMY site, which at this point was not leaking, and at that point, the patient was taken back to the intensive care unit. There were no evident complications. Christiano Estrada MD /[id number]
[2018-09-14] MEDS: GENTAMICIN IV SCH (16:49)
[2018-09-14] MEDS: Fluconazole/Normal Saline 200 MG in Premix Bag 1 BAG IV SCH (20:06)
[2018-09-14] MEDS ORDERED: Pantoprazole 40 MG Tab.CR PO ONE (22:43)
--- NOTE | 2018-09-15 05:19 | CRLCR ---
INDICATION: Endotracheal tube placement TECHNIQUE: Chest 1 views COMPARISON: Chest x-ray 09/14/2018 FINDINGS: Cardiovascular and mediastinum: The heart size is within normal limits with atherosclerotic calcification. Right subclavian line extends to the mid superior vena cava. Endotracheal tube extends to the distal trachea, 3 centimeters above the pham. Enteric tube extends below the hemidiaphragm. Lungs and pleural spaces: Small left and trace right pleural effusion with bibasilar airspace consolidation. Diffuse bilateral interstitial and alveolar opacities. Bones and soft tissues: Skin yassine at the upper abdomen. IMPRESSION: 1. Endotracheal tube at the distal trachea, 3 centimeters above the pham. Other life support devices as described above. 2. Bilateral pleural effusions with bibasilar atelectasis and pulmonary edema pattern showing interval worsening compared to the study of 1 day prior. Dictated by Keven Cronin MD @ Sep 15 2018 5:16AM Signed by Dr. Keven Cronin @ Sep 15 2018 5:18AM
[2018-09-15] MEDS: SODIUM CHLORIDE 0.9% IV SCH ×3 (05:21→21:41)
[2018-09-15] MEDS: MEROPENEM IV SCH ×3 (05:21→21:41)
[2018-09-15] MEDS ORDERED: Furosemide 20 MG/2 ML VIAL IVPUSH ONE (06:33)
[2018-09-15] MEDS: Albuterol/Ipratropium 3.0-0.5 MG/3 ML Neb Soln NEB SCH ×4 (07:43→21:39)
[2018-09-15] MEDS: Acetylcysteine 20% 200 MG/ML 4 ML Nebulizer Soln SDV NEB SCH ×4 (07:43→21:39)
[2018-09-15] MEDS: 1: AA 5%/Calcium/D20W/Lytes 1,000 ML with MVI, Adult with Vitamin K 10 ML, Chromium/Copp IV SCH ×3 (08:40)
--- NOTE | 2018-09-15 09:27 | PCM.PN ---
- General Info Date of Service: 09/15/18 Subjective Update: There were no acute events overnight. She has remained mildly tachycardic but otherwise stable. Requiring only 35% FiO2 on the ventilator. Secretions little better today. Weaning trial this morning did not go well and she very quickly became tachypneic, tachycardic and hypertensive. She is lightly sedated and has her eyes open but does not interact today. She appears comfortable. Good response to diuresis yesterday but fluid was still on the positive side. - Review of Systems General: Reports: Other (intubated and sedated). Denies: Fever - Patient Data Vitals - Most Recent: Last Vital Signs Temp 37.2 C 09/15/18 09:15 Pulse 99 09/15/18 07:43 Resp 25 H 09/15/18 09:15 BP 168/58 H 09/15/18 09:15 Pulse Ox 98 09/15/18 09:15 Weight - Most Recent: 45.359 kg I&O - Last 24 Hours: Intake & Output 09/14/18 09/15/18 09/15/18 22:59 06:59 14:59 Intake Total 1490 1545 0 Output Total 1530 645 Balance -40 900 0 Lab Results Last 24 Hours: Laboratory Results - last 24 hr 09/14/18 09/15/18 09/15/18 Range/Units 06:45 04:20 04:25 WBC 13.3 H (4.5-11.0) K/uL RBC 2.58 L (3.30-5.50) M/uL Hgb 8.5 L (12.0-15.0) g/dL Hct 25.9 L (36.0-48.0) % MCV 100 H (80-98) fL MCH 33 H (27-31) pg MCHC 33 (32-36) % Plt Count 280 (150-400) K/uL Puncture Site Line ABG pH 7.459 H (7.350-7.450) ABG pCO2 40.7 (35.0-42.0) mmHg ABG pO2 115.0 H (75.0-100.0) mmHg ABG HCO3 28.5 H (22.0-26.0) mmol/L ABG Total CO2 26.7 H (21.0-25.0) mmol/L ABG O2 Saturation 98.7 H (95.0-98.0) % ABG O2 Content 11.9 L (15.0-23.0) %vol ABG Base Excess 4.7 mm/L ABG Hemoglobin 8.6 L (12.0-16.0) g/dL ABG Oxyhemoglobin 96.1 % ABG Carboxyhemoglobin 2.1 H (0.0-1.6) % ABG Methemoglobin 0.5 % O2 Delivery Device Ventilator Oxygen Flow Rate L Sodium (140-148) mmol/L Potassium (3.6-5.2) mmol/L Chloride (100-108) mmol/L Carbon Dioxide (21-32) mmol/L Anion Gap (5.0-14.0) mmol/L BUN (7-18) mg/dL Creatinine (0.6-1.0) mg/dL Est Cr Clr Drug Dosing mL/min Estimated GFR (MDRD) (>60) Glucose (74-106) mg/dL Calcium (8.5-10.1) mg/dL Phosphorus (2.5-4.9) mg/dL Magnesium (1.8-2.4) mg/dL Total Bilirubin (0.2-1.0) mg/dL AST (15-37) U/L ALT (12-78) U/L Alkaline Phosphatase (46-116) U/L NT-Pro-B Natriuret Pep (5-450) pg/mL Total Protein (6.4-8.2) g/dL Albumin (3.4-5.0) g/dL Globulin (2.3-3.5) g/dL Albumin/Globulin Ratio (1.2-2.2) Blood Type O POSITIVE Gel Antibody Screen Negative Crossmatch See Detail 09/15/18 Range/Units 04:25 WBC (4.5-11.0) K/uL RBC (3.30-5.50) M/uL Hgb (12.0-15.0) g/dL Hct (36.0-48.0) % MCV (80-98) fL MCH (27-31) pg MCHC (32-36) % Plt Count (150-400) K/uL Puncture Site ABG pH (7.350-7.450) ABG pCO2 (35.0-42.0) mmHg ABG pO2 (75.0-100.0) mmHg ABG HCO3 (22.0-26.0) mmol/L ABG Total CO2 (21.0-25.0) mmol/L ABG O2 Saturation (95.0-98.0) % ABG O2 Content (15.0-23.0) %vol ABG Base Excess mm/L ABG Hemoglobin (12.0-16.0) g/dL ABG Oxyhemoglobin % ABG Carboxyhemoglobin (0.0-1.6) % ABG Methemoglobin % O2 Delivery Device Oxygen Flow Rate L Sodium 140 (140-148) mmol/L Potassium 4.6 (3.6-5.2) mmol/L Chloride 105 (100-108) mmol/L Carbon Dioxide 29 (21-32) mmol/L Anion Gap 6.5 (5.0-14.0) mmol/L BUN 52 H (7-18) mg/dL Creatinine 0.8 (0.6-1.0) mg/dL Est Cr Clr Drug Dosing 41.50 mL/min Estimated GFR (MDRD) > 60 (>60) Glucose 112 H (74-106) mg/dL Calcium 8.6 (8.5-10.1) mg/dL Phosphorus 5.2 H (2.5-4.9) mg/dL Magnesium 2.1 (1.8-2.4) mg/dL Total Bilirubin 1.1 H D (0.2-1.0) mg/dL AST 42 H (15-37) U/L ALT 73 (12-78) U/L Alkaline Phosphatase 181 H (46-116) U/L NT-Pro-B Natriuret Pep 3759 H (5-450) pg/mL Total Protein 4.9 L (6.4-8.2) g/dL Albumin 1.9 L (3.4-5.0) g/dL Globulin 3.0 (2.3-3.5) g/dL Albumin/Globulin Ratio 0.6 L (1.2-2.2) Blood Type Gel Antibody Screen Crossmatch Joseph Results Last 24 Hours: Microbiology 09/14/18 07:40 Gram Stain - Final Bronchial Aspirate Respiratory Culture - Preliminary 09/13/18 10:20 Gram Stain - Final Other - Bronchial Wound Culture - Preliminary Anaerobic Culture - Preliminary NO GROWTH AFTER 2 DAYS 09/12/18 12:57 Gram Stain - Final Bronchial Aspirate - Mixed Respiratory Culture - Final Yeast Isolated 09/14/18 08:06 ADRY Preparation - Final Other Med Orders - Current: Current Medications Acetylcysteine (Mucomyst 20%) 200 mg NEB QIDRT [facility] Last Admin: 09/15/18 07:43 Dose: 200 mg Albuterol (Proventil Neb Soln) 2.5 mg NEB Q4H PRN PRN Reason: Dyspnea Albuterol/Ipratropium (Duoneb 3.0-0.5 Mg/3 Ml) 3 ml NEB QIDRT [facility] Last Admin: 09/15/18 07:43 Dose: 3 ml Hydralazine HCl (Apresoline) 5 mg IVPUSH Q4H PRN PRN Reason: Hypertension Last Admin: 09/10/18 15:44 Dose: 5 mg Hydromorphone HCl (Dilaudid [employer] 15 Mg In Ns 30 Ml) 0 mg IV ASDIRECTED PRN; Protocol PRN Reason: 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 Last Admin: 09/09/18 05:52 Dose: 15 mg Hydroxyzine HCl (Vistaril) 50 mg IM Q4H PRN PRN Reason: Pain Heparin Sodium (Porcine) 5,000 (units/ Sodium Chloride) 501 mls @ 5 mls/hr IV ASDIRECTED [facility] Last Admin: 09/13/18 14:03 Dose: 5 mls/hr Heparin Sodium (Porcine) 5,000 (units/ Sodium Chloride) 501 mls @ 5 mls/hr IV ASDIRECTED [facility] Last Admin: 09/13/18 13:59 Dose: 5 mls/hr Propofol (Diprivan 100 Ml) 100 mls @ 1.361 mls/hr IV TITRATE [facility]; Protocol Last Admin: 09/14/18 21:16 Dose: 25 mcg/kg/min, 6.804 mls/hr Sodium Chloride (Normal Saline) 1,000 mls @ 0 mls/hr IV ASDIRECTED [facility] Last Admin: 09/10/18 14:57 Dose: 12.5 mls/hr Multivitamins/Minerals 10 ml/Chromium/Copper/Manganese/Seleni/Zn 1 ml/ Amino Ac/ Electrol/Dextrose/Calcium 1,011 mls @ 62 mls/hr IV .BY DURATION [facility] Last Admin: 09/15/18 08:40 Dose: 62 mls/hr Amino Ac/Electrol/Dextrose/Calcium (Clinimix E 09/28) 1,000 mls @ 62 mls/hr IV .BY DURATION [facility] Last Admin: 09/14/18 16:24 Dose: 62 mls/hr Meropenem 500 mg/ Sodium (Chloride) 25 mls @ 50 mls/hr IV Q8H [facility] Last Admin: 09/15/18 05:21 Dose: 50 mls/hr Azithromycin 500 mg/ Dextrose/ (Water) 250 mls @ 250 mls/hr IV Q24H [facility] Stop: 09/17/18 17:00 Last Admin: 09/14/18 15:42 Dose: 250 mls/hr Fluconazole/Sodium Chloride (200 mg/ Premix) 100 mls @ 100 mls/hr IV Q24H [facility] Last Admin: 09/14/18 20:06 Dose: 100 mls/hr Albumin Human (Albumin 25%) 25 gm in 100 mls @ 25 mls/hr IV Q24H [facility] Stop: 09/16/18 11:59 Last Admin: 09/15/18 09:16 Dose: 25 mls/hr Albumin Human (Albumin 25%) 25 gm in 100 mls @ 25 mls/hr IV Q24H [facility] Stop: 09/16/18 15:59 Last Admin: 09/14/18 11:43 Dose: 25 mls/hr Lactated Ringer's (Ringers, Lactated) 1,000 mls @ 25 mls/hr IV ASDIRECTED [facility] Last Admin: 09/14/18 11:48 Dose: 25 mls/hr Lorazepam (Ativan) 0.5 mg IVPUSH Q3H PRN PRN Reason: AGITATION Last Admin: 09/05/18 03:50 Dose: 0.25 mg Metoprolol Tartrate (Lopressor) 2.5 mg IVPUSH Q4H PRN PRN Reason: Hypertension Last Admin: 09/12/18 02:33 Dose: 2.5 mg Naloxone HCl (Narcan) 0.1 mg IV ASDIRECTED PRN PRN Reason: decreased respiratory rate Pantoprazole Sodium (Protonix Iv) 40 mg IV Q24H [facility] Last Admin: 09/14/18 21:27 Dose: 40 mg Discontinued Medications Acetaminophen (Tylenol) 650 mg PO Q4H PRN PRN Reason: Pain (Mild 1-3)/fever Acetaminophen (Tylenol) 650 mg RECTAL Q4H PRN PRN Reason: Mild pain/fever Albuterol (Proventil Neb Soln) 2.5 mg NEB Q4H PRN PRN Reason: Shortness Of Breath/wheezing Albuterol/Ipratropium (Duoneb 3.0-0.5 Mg/3 Ml) 3 ml INH PREPRO ONE Stop: 09/03/18 17:01 Last Admin: 09/03/18 16:25 Dose: 3 ml Albuterol/Ipratropium (Duoneb 3.0-0.5 Mg/3 Ml) 3 ml NEB QID [facility] Last Admin: 09/13/18 21:11 Dose: 3 ml Aztreonam (Azactam) Confirm Administered Dose 1 gm .ROUTE .STK-MED ONE Stop: 09/03/18 21:44 Last Admin: 09/03/18 22:15 Dose: Not Given Benazepril HCl (Lotensin) 40 mg PO ONETIME ONE Stop: 09/03/18 10:41 Last Admin: 09/03/18 11:00 Dose: 40 mg Bupivacaine HCl (Marcaine 0.5%) Confirm Administered Dose 50 ml .ROUTE .STK-MED ONE Stop: 09/07/18 06:48 Last Admin: 09/07/18 10:53 Dose: 18 ml Bupivacaine HCl (Marcaine 0.5%) Confirm Administered Dose 50 ml .ROUTE .STK-MED ONE Stop: 09/11/18 09:07 Last Admin: 09/11/18 10:49 Dose: 2 ml Ropivacaine 22 ml/Dexamethasone 8 mg/Epinephrine HCl 0.4 mg/ Sodium Chloride 55.6 ml 0 ml NERVRT ASDIRECTED [facility] Ropivacaine 22 ml/Dexamethasone 8 mg/Epinephrine HCl 0.4 mg/ Sodium Chloride 55.6 ml 0 ml NERVRT ASDIRECTED [facility] Last Admin: 09/04/18 14:03 Dose: 80 syringe Ropivacaine 22 ml/Dexamethasone 8 mg/Epinephrine HCl 0.4 mg/ Sodium Chloride 55.6 ml 0 ml NERVRT ASDIRECTED [facility] Last Admin: 09/07/18 11:07 Dose: 80 syringe Dexamethasone (Dexamethasone) Confirm Administered Dose 4 mg .ROUTE .STK-MED ONE Stop: 09/03/18 14:41 Dexamethasone (Dexamethasone) Confirm Administered Dose 4 mg .ROUTE .STK-MED ONE Stop: 09/04/18 09:47 Fentanyl (Sublimaze) 25 mcg IVPUSH ONETIME ONE Stop: 09/03/18 13:57 Last Admin: 09/03/18 14:16 Dose: 25 mcg Fentanyl (Sublimaze) 25 mcg IVPUSH Q2H PRN PRN Reason: Pain (severe 7-10) Fentanyl (Sublimaze) Confirm Administered Dose 250 mcg .ROUTE .STK-MED ONE Stop: 09/03/18 14:41 Fentanyl (Sublimaze) Confirm Administered Dose 250 mcg .ROUTE .STK-MED ONE Stop: 09/04/18 09:46 Fentanyl (Sublimaze) Confirm Administered Dose 250 mcg .ROUTE .STK-MED ONE Stop: 09/04/18 13:57 Fentanyl (Sublimaze) Confirm Administered Dose 100 mcg .ROUTE .STK-MED ONE Stop: 09/11/18 10:36 Furosemide (Lasix) 20 mg IVPUSH ONETIME ONE Stop: 09/04/18 15:10 Last Admin: 09/04/18 15:18 Dose: 20 mg Furosemide (Lasix) 40 mg IV ONETIME ONE Stop: 09/06/18 08:16 Last Admin: 09/06/18 08:26 Dose: 40 mg Furosemide (Lasix) 20 mg IV Q12H [facility] Stop: 09/07/18 20:01 Last Admin: 09/07/18 20:10 Dose: 20 mg Furosemide (Lasix) 20 mg IVPUSH Q12H [facility] Stop: 09/08/18 19:01 Last Admin: 09/08/18 19:50 Dose: 20 mg Furosemide (Lasix) 20 mg IVPUSH ONETIME ONE Stop: 09/09/18 07:01 Last Admin: 09/09/18 08:14 Dose: 20 mg Furosemide (Lasix) 20 mg IVPUSH ONETIME ONE Stop: 09/09/18 11:01 Last Admin: 09/09/18 12:38 Dose: 20 mg Furosemide (Lasix) 20 mg IVPUSH ONETIME ONE Stop: 09/09/18 20:01 Furosemide (Lasix) 20 mg IV Q8H [facility] Stop: 09/11/18 00:31 Last Admin: 09/10/18 23:50 Dose: 20 mg Furosemide (Lasix) 20 mg IV Q8H [facility] Stop: 09/12/18 00:01 Last Admin: 09/11/18 23:34 Dose: 20 mg Furosemide (Lasix) 20 mg IVPUSH Q8H [facility] Stop: 09/13/18 02:31 Last Admin: 09/13/18 02:39 Dose: 20 mg Furosemide (Lasix) 20 mg IVPUSH Q8H [facility] Stop: 09/14/18 02:31 Last Admin: 09/14/18 02:29 Dose: 20 mg Furosemide (Lasix) 40 mg IVPUSH ONETIME ONE Stop: 09/14/18 10:01 Last Admin: 09/14/18 13:28 Dose: 40 mg Furosemide (Lasix) 20 mg IVPUSH BID [facility] Furosemide (Lasix) 20 mg IVPUSH ONETIME ONE Stop: 09/15/18 06:34 Last Admin: 09/15/18 06:48 Dose: 20 mg Gentamicin Sulfate (Gentamicin) 1 mg IV .Pharmacy to Dose [facility] Stop: 09/08/18 14:31 Glycopyrrolate (Robinul) Confirm Administered Dose 1 mg .ROUTE .STK-MED ONE Stop: 09/03/18 14:41 Glycopyrrolate (Robinul) Confirm Administered Dose 1 mg .ROUTE .STK-MED ONE Stop: 09/04/18 09:47 Heparin Sodium (Porcine) (Heparin Sodium) Confirm Administered Dose 5,000 units .ROUTE .STK-MED ONE Stop: 09/03/18 18:32 Heparin Sodium (Porcine) (Heparin Lock Flush 100 Units/Ml) Confirm Administered Dose 500 units .ROUTE .STK-MED ONE Stop: 09/04/18 13:14 Heparin Sodium (Porcine) (Heparin Lock Flush 100 Units/Ml) Confirm Administered Dose 1,000 units .ROUTE .STK-MED ONE Stop: 09/11/18 09:07 Last Admin: 09/11/18 10:58 Dose: 1,000 units Heparin Sodium (Porcine) (Heparin Lock Flush 100 Units/Ml) Confirm Administered Dose 500 units .ROUTE .STK-MED ONE Stop: 09/11/18 10:44 Last Admin: 09/11/18 10:58 Dose: 500 units Hydromorphone HCl (Dilaudid) 0.5 mg IVPUSH ONETIME ONE Stop: 09/03/18 10:48 Last Admin: 09/03/18 11:00 Dose: 0.5 mg Hydromorphone HCl (Dilaudid) 0.5 mg IVPUSH ONETIME ONE Stop: 09/03/18 11:22 Last Admin: 09/03/18 11:25 Dose: 0.5 mg Hydromorphone HCl (Dilaudid) 0.5 mg IVPUSH ONETIME ONE Stop: 09/03/18 12:10 Last Admin: 09/03/18 12:12 Dose: 0.5 mg Hydromorphone HCl (Dilaudid) 0.5 mg IVPUSH ONETIME ONE Stop: 09/03/18 12:40 Last Admin: 09/03/18 12:44 Dose: 0.5 mg Hydromorphone HCl (Dilaudid) 1 mg IVPUSH ONETIME ONE Stop: 09/03/18 12:57 Last Admin: 09/03/18 13:00 Dose: 1 mg Sodium Chloride (Normal Saline) 1,000 mls @ 1,000 mls/hr IV .BOLUS ONE Stop: 09/03/18 12:17 Last Admin: 09/03/18 11:25 Dose: 1,000 mls/hr Piperacillin/Tazobactam/ (Dextrose 4.5 gm/ Premix) 100 mls @ 200 mls/hr IV ONETIME ONE Stop: 09/03/18 13:29 Last Admin: 09/03/18 13:04 Dose: 200 mls/hr Sodium Chloride (Normal Saline) 1,000 mls @ 500 mls/hr IV ASDIRECTED [facility] Last Admin: 09/03/18 13:00 Dose: 500 mls/hr Lactated Ringer's (Ringers, Lactated) 1,000 mls @ 125 mls/hr IV ASDIRECTED [facility] Last Admin: 09/03/18 16:07 Dose: 125 mls/hr Aztreonam 2 gm/ Sodium (Chloride) 100 mls @ 200 mls/hr IV NOW ONE Stop: 09/03/18 15:29 Last Admin: 09/03/18 14:56 Dose: 200 mls/hr Meropenem 500 mg/ Sodium (Chloride) 50 mls @ 100 mls/hr IV ONCALL ONE Stop: 09/03/18 17:29 Last Admin: 09/03/18 16:25 Dose: 100 mls/hr Piperacillin/Tazobactam/ (Dextrose 3.375 gm/ Premix) 50 mls @ 100 mls/hr IV Q6H [facility] Last Admin: 09/03/18 22:15 Dose: Not Given Sodium Chloride (Normal Saline) Confirm Administered Dose 500 mls @ as directed .ROUTE .STK-MED ONE Stop: 09/03/18 18:33 Aztreonam/Dextrose 1 gm/ (Premix) 50 mls @ 100 mls/hr IV Q8HR [facility] Meropenem 500 mg/ Sodium (Chloride) 50 mls @ 100 mls/hr IV Q8H [facility] Last Admin: 09/10/18 05:17 Dose: 100 mls/hr Sodium Chloride (Normal Saline) Confirm Administered Dose 50 mls @ as directed .ROUTE .STK-MED ONE Stop: 09/03/18 22:01 Last Admin: 09/03/18 22:21 Dose: Not Given Aztreonam/Dextrose 1 gm/ (Premix) 50 mls @ 100 mls/hr IV Q8H [facility] Last Admin: 09/04/18 07:30 Dose: Not Given Dextrose/Lactated Ringer's (Dextrose 5%-Lactated Ringers) 1,000 mls @ 100 mls/ hr IV ASDIRECTED PRN PRN Reason: Hypotension Dextrose/Lactated Ringer's (Dextrose 5%-Lactated Ringers) 1,000 mls @ 100 mls/ hr IV ASDIRECTED [facility] Last Admin: 09/05/18 02:13 Dose: 100 mls/hr Lactated Ringer's (Ringers, Lactated) 1,000 mls @ 100 mls/hr IV ASDIRECTED [facility] Last Admin: 09/04/18 04:20 Dose: 100 mls/hr Lactated Ringer's (Ringers, Lactated) 500 mls @ 500 mls/hr IV .BOLUS [facility] Last Admin: 09/04/18 01:10 Dose: 500 mls/hr Lactated Ringer's (Ringers, Lactated) 500 mls @ 500 mls/hr IV .BOLUS [facility] Last Admin: 09/04/18 03:13 Dose: 500 mls/hr Propofol (Diprivan 100 Ml) 100 mls @ 1.361 mls/hr IV TITRATE [facility]; Protocol Last Titration: 09/04/18 07:52 Dose: 14 mcg/kg/min, 3.81 mls/hr Propofol (Diprivan 100 Ml) Confirm Administered Dose 100 mls @ as directed .ROUTE .[facility] ONE Stop: 09/04/18 03:45 Last Admin: 09/04/18 03:59 Dose: Not Given Lactated Ringer's (Ringers, Lactated) 500 mls @ 999 mls/hr IV .BOLUS [facility] Last Admin: 09/04/18 06:10 Dose: 999 mls/hr Aztreonam/Dextrose 1 gm/ (Premix) 50 mls @ 100 mls/hr IV Q8H [facility] Last Admin: 09/07/18 08:15 Dose: 100 mls/hr Lactated Ringer's (Ringers, Lactated) 500 mls @ 500 mls/hr IV ASDIRECTED [facility] Last Admin: 09/04/18 21:04 Dose: 500 mls/hr Lactated Ringer's (Ringers, Lactated) Confirm Administered Dose 1,000 mls @ as directed .ROUTE .[facility] ONE Stop: 09/04/18 13:11 Lactated Ringer's (Ringers, Lactated) Confirm Administered Dose 1,000 mls @ as directed .ROUTE .[facility] ONE Stop: 09/04/18 13:11 Sodium Chloride (Normal Saline) Confirm Administered Dose 10 mls @ as directed .ROUTE .[facility] ONE Stop: 09/04/18 13:15 Magnesium Sulfate 2 gm/ Premix 50 mls @ 25 mls/hr IV Q6H [facility] Stop: 09/06/18 11:59 Last Admin: 09/06/18 10:17 Dose: 25 mls/hr Lactated Ringer's (Ringers, Lactated) 500 mls @ 500 mls/hr IV ASDIRECTED [facility] Stop: 09/04/18 17:46 Lactated Ringer's (Ringers, Lactated) 500 mls @ 500 mls/hr IV ONETIME ONE Stop: 09/04/18 19:29 Last Admin: 09/04/18 18:37 Dose: 500 mls/hr Lactated Ringer's (Ringers, Lactated) 500 mls @ 1,000 mls/hr IV ONETIME ONE Stop: 09/04/18 23:30 Last Admin: 09/04/18 23:18 Dose: 1,000 mls/hr Lactated Ringer's (Ringers, Lactated) 500 mls @ 1,000 mls/hr IV ONETIME ONE Stop: 09/05/18 01:44 Last Admin: 09/05/18 01:15 Dose: 1,000 mls/hr Lactated Ringer's (Ringers, Lactated) 1,000 mls @ 150 mls/hr IV ASDIRECTED [facility] Last Admin: 09/05/18 02:13 Dose: 150 mls/hr Lactated Ringer's (Ringers, Lactated) 500 mls @ 1,000 mls/hr IV ONETIME ONE Stop: 09/05/18 03:38 Last Admin: 09/05/18 03:15 Dose: 1,000 mls/hr Multivitamins/Minerals 10 ml/Chromium/Copper/Manganese/Seleni/Zn 1 ml/ Amino Ac/ Electrol/Dextrose/Calcium 2,011 mls @ 82 mls/hr IV .BY DURATION [facility] Stop: 09/05/18 13:25 Last Admin: 09/05/18 13:32 Dose: Not Given Amino Ac/Electrol/Dextrose/Calcium (Clinimix E 5/15) 2,000 mls @ 82 mls/hr IV .BY DURATION [facility] Stop: 09/05/18 13:25 Vancomycin HCl 1 gm/ Sodium (Chloride) 250 mls @ 167 mls/hr IV Q24H [facility] Last Admin: 09/05/18 12:34 Dose: 167 mls/hr Sodium Chloride (Normal Saline) 1,000 mls @ 50 mls/hr IV ASDIRECTED [facility] Last Admin: 09/05/18 12:51 Dose: 50 mls/hr Multivitamins/Minerals 10 ml/Chromium/Copper/Manganese/Seleni/Zn 1 ml/ Amino Ac/ Electrol/Dextrose/Calcium 2,011 mls @ 82 mls/hr IV .BY DURATION [facility] Stop: 09/08/18 13:20 Last Admin: 09/07/18 15:09 Dose: 82 mls/hr Amino Ac/Electrol/Dextrose/Calcium (Clinimix E 5/15) 2,000 mls @ 82 mls/hr IV .BY DURATION [facility] Stop: 09/08/18 13:20 Vancomycin HCl 1 gm/ Sodium (Chloride) 250 mls @ 167 mls/hr IV Q24H [facility] Last Admin: 09/06/18 12:00 Dose: 167 mls/hr Sodium Chloride (Normal Saline) 500 mls @ 500 mls/hr IV ASDIRECTED ONE Stop: 09/05/18 16:29 Last Admin: 09/05/18 15:40 Dose: 500 mls/hr Sodium Chloride (Normal Saline) 1,000 mls @ 100 mls/hr IV ASDIRECTED [facility] Last Admin: 09/07/18 07:31 Dose: 100 mls/hr Potassium Phosphate 20 mmole/ (Sodium Chloride) 106.6667 mls @ 35 mls/hr IV Q3H [facility] Stop: 09/07/18 17:29 Last Admin: 09/07/18 15:01 Dose: 35 mls/hr Albumin Human (Albumin 25%) 25 gm in 100 mls @ 25 mls/hr IV DAILY [facility] Stop: 09/09/18 12:59 Last Admin: 09/09/18 08:25 Dose: 25 mls/hr Albumin Human (Albumin 25%) 25 gm in 100 mls @ 25 mls/hr IV Q24H [facility] Stop: 09/09/18 17:59 Last Admin: 09/09/18 14:32 Dose: 25 mls/hr Aztreonam 1 gm/ Sodium (Chloride) 50 mls @ 100 mls/hr IV Q8H [facility] Last Admin: 09/08/18 09:41 Dose: 100 mls/hr Vancomycin HCl 1 gm/ Sodium (Chloride) 250 mls @ 167 mls/hr IV Q18H [facility] Last Admin: 09/09/18 18:42 Dose: 167 mls/hr Sodium Chloride (Normal Saline) 1,000 mls @ 999 mls/hr IV .BOLUS ONE Stop: 09/07/18 17:39 Last Admin: 09/07/18 17:26 Dose: 999 mls/hr Potassium Acetate 40 meq/ (Sodium Chloride) 120 mls @ 30 mls/hr IV ONETIME ONE Stop: 09/08/18 13:59 Last Admin: 09/08/18 09:44 Dose: 30 mls/hr Sodium Chloride (Normal Saline) 100 mls @ 3 mls/sec IV ASDIRECTED [facility] Stop: 09/08/18 15:00 Last Admin: 09/08/18 14:17 Dose: 3 mls/sec Azithromycin 500 mg/ Sodium (Chloride) 250 mls @ 250 mls/hr IV Q24H [facility] Last Admin: 09/09/18 15:27 Dose: 250 mls/hr Gentamicin Sulfate 228 mg/ (Sodium Chloride) 105.7 mls @ 100 mls/hr IV ONETIME ONE Stop: 09/08/18 17:03 Last Admin: 09/08/18 16:19 Dose: 100 mls/hr Potassium Phosphate 15 mmole/ (Sodium Chloride) 105 mls @ 55 mls/hr IV Q2H [facility] Stop: 09/09/18 12:55 Last Admin: 09/09/18 15:27 Dose: 55 mls/hr Gentamicin Sulfate 228 mg/ (Sodium Chloride) 105.7 mls @ 100 mls/hr IV Q36H [facility] Last Admin: 09/10/18 03:55 Dose: 100 mls/hr Sodium Chloride (Normal Saline) 500 mls @ 999 mls/hr IV .BOLUS ONE Stop: 09/09/18 16:34 Last Admin: 09/09/18 16:18 Dose: 999 mls/hr Sodium Chloride (Normal Saline) 500 mls @ 999 mls/hr IV .BOLUS ONE Stop: 09/09/18 17:35 Last Admin: 09/09/18 17:18 Dose: 999 mls/hr Sodium Chloride (Normal Saline) 1,000 mls @ 125 mls/hr IV ASDIRECTED [facility] Last Admin: 09/10/18 01:41 Dose: 125 mls/hr Lactated Ringer's (Ringers, Lactated) 1,000 mls @ 125 mls/hr IV ASDIRECTED [facility] Last Admin: 09/11/18 01:06 Dose: 125 mls/hr Gentamicin Sulfate 228 mg/ (Sodium Chloride) 55.7 mls @ 55 mls/hr IV Q36H [facility] Last Admin: 09/14/18 16:49 Dose: 55 mls/hr Vancomycin HCl 1 gm/ Dextrose/ (Water) 250 mls @ 167 mls/hr IV Q24H [facility] Last Admin: 09/13/18 17:48 Dose: 167 mls/hr Magnesium Sulfate 2 gm/ Premix 50 mls @ 25 mls/hr IV Q6H [facility] Stop: 09/13/18 05:59 Last Admin: 09/13/18 03:31 Dose: 25 mls/hr Potassium Phosphate 22.5 mmole (/ Dextrose/Water) 107.5 mls @ 27 mls/hr IV Q4H [facility] Stop: 09/11/18 17:29 Last Admin: 09/11/18 14:45 Dose: 27 mls/hr Lactated Ringer's (Ringers, Lactated) 1,000 mls @ 75 mls/hr IV ASDIRECTED [facility] Last Admin: 09/13/18 22:27 Dose: 75 mls/hr Sodium Chloride (Normal Saline) Confirm Administered Dose 10 mls @ as directed .ROUTE .STK-MED ONE Stop: 09/11/18 10:41 Potassium Chloride 40 meq/ (Premix) 100 mls @ 25 mls/hr IV ONETIME ONE Stop: 09/13/18 12:59 Last Admin: 09/13/18 09:31 Dose: 25 mls/hr Potassium Chloride 40 meq/ (Premix) 100 mls @ 25 mls/hr IV ONETIME ONE Stop: 09/13/18 17:59 Last Admin: 09/13/18 13:11 Dose: 25 mls/hr Iopamidol (Isovue-300 (61%)) 100 ml IV . DIRECTED PRN PRN Reason: RADIOLOGY EXAM Stop: 09/09/18 11:03 Last Admin: 09/08/18 14:16 Dose: 100 ml Lidocaine HCl (Xylocaine 2% Viscous) Confirm Administered Dose 15 ml .ROUTE .STK -MED ONE Stop: 09/12/18 11:15 Lidocaine HCl (Xylocaine 4% Top Soln) Confirm Administered Dose 50 ml .ROUTE .STK-MED ONE Stop: 09/12/18 11:15 Lidocaine HCl (Xylocaine 4% Top Soln) Confirm Administered Dose 50 ml .ROUTE .STK-MED ONE Stop: 09/14/18 06:57 Last Admin: 09/14/18 07:20 Dose: 20 ml Lidocaine/Epinephrine (Xylocaine 1% With Epinephrine 1:100,000) Confirm Administered Dose 50 ml .ROUTE .STK-MED ONE Stop: 09/07/18 06:48 Last Admin: 09/07/18 10:54 Dose: 18 ml Lidocaine/Epinephrine (Xylocaine 1% With Epinephrine 1:100,000) Confirm Administered Dose 50 ml .ROUTE .STK-MED ONE Stop: 09/11/18 09:07 Last Admin: 09/11/18 10:49 Dose: 2 ml Lorazepam (Ativan) 0.5 mg IVPUSH Q4H PRN PRN Reason: Nausea/Vomiting Meropenem (Merrem) Confirm Administered Dose 1,000 mg .ROUTE .STK-MED ONE Stop: 09/03/18 17:54 Last Admin: 09/03/18 18:32 Dose: 3,500 mg Meropenem (Merrem) Confirm Administered Dose 1,000 mg .ROUTE .STK-MED ONE Stop: 09/03/18 18:04 Meropenem (Merrem) Confirm Administered Dose 2,000 mg .ROUTE .STK-MED ONE Stop: 09/03/18 18:18 Meropenem (Merrem) Confirm Administered Dose 500 mg .ROUTE .STK-MED ONE Stop: 09/07/18 06:48 Last Admin: 09/07/18 10:53 Dose: 500 mg Metoprolol Tartrate (Lopressor) 25 mg PO ONETIME ONE Stop: 09/03/18 10:41 Last Admin: 09/03/18 11:00 Dose: 25 mg Metoprolol Tartrate (Lopressor) 5 mg IVPUSH Q6H [facility] Last Admin: 09/08/18 09:25 Dose: 5 mg Metoprolol Tartrate (Lopressor) 2.5 mg IVPUSH Q6H [facility] Last Admin: 09/10/18 03:55 Dose: 2.5 mg Metoprolol Tartrate (Lopressor) Confirm Administered Dose 5 mg .ROUTE .STK-MED ONE Stop: 09/08/18 21:53 Last Admin: 09/08/18 22:19 Dose: Not Given Metoprolol Tartrate (Lopressor) 2.5 mg IVPUSH Q4H [facility] Last Admin: 09/11/18 21:25 Dose: Not Given Neostigmine Methylsulfate (Neostigmine) Confirm Administered Dose 5 mg .ROUTE .STK-MED ONE Stop: 09/03/18 14:41 Neostigmine Methylsulfate (Neostigmine) Confirm Administered Dose 5 mg .ROUTE .STK-MED ONE Stop: 09/04/18 09:47 Non-Formulary Medication (Total Parenteral Nutrition, Central) 0 ml IV ASDIRECTED [facility] Stop: 09/12/18 13:31 Non-Formulary Medication (Total Parenteral Nutrition, Central) 0 ml IV ASDIRECTED [facility] Stop: 09/13/18 13:00 Ondansetron HCl (Zofran Odt) 4 mg PO Q6H PRN PRN Reason: Nausea able to take PO Ondansetron HCl (Zofran) 4 mg IV Q6H PRN PRN Reason: Nausea/Vomiting Ondansetron HCl (Zofran) Confirm Administered Dose 4 mg .ROUTE .STK-MED ONE Stop: 09/03/18 14:41 Ondansetron HCl (Zofran) Confirm Administered Dose 4 mg .ROUTE .STK-MED ONE Stop: 09/04/18 09:47 Pantoprazole Sodium (Protonix Iv) 40 mg IV Q12H [facility] Last Admin: 09/03/18 16:07 Dose: 40 mg Piperacillin Sod/Tazobactam Sod (Zosyn) 10.125 gm .XX ASDIRECTED [facility] Stop: 09/04/18 15:00 Last Admin: 09/04/18 14:04 Dose: 10.125 gm Propofol (Diprivan 20 Ml) Confirm Administered Dose 200 mg .ROUTE .STK-MED ONE Stop: 09/03/18 14:41 Propofol (Diprivan 20 Ml) Confirm Administered Dose 200 mg .ROUTE .STK-MED ONE Stop: 09/04/18 09:47 Propofol (Diprivan 20 Ml) Confirm Administered Dose 200 mg .ROUTE .STK-MED ONE Stop: 09/06/18 07:01 Rocuronium [place] (Zemuron) Confirm Administered Dose 50 mg .ROUTE .STK-MED ONE Stop: 09/03/18 14:41 Rocuronium [place] (Zemuron) Confirm Administered Dose 50 mg .ROUTE .STK-MED ONE Stop: 09/04/18 09:47 Succinylcholine Chloride (Quelicin) Confirm Administered Dose 200 mg .ROUTE .STK -MED ONE Stop: 09/03/18 14:41 Succinylcholine Chloride (Quelicin) Confirm Administered Dose 200 mg .ROUTE .STK -MED ONE Stop: 09/04/18 09:47 Succinylcholine Chloride (Quelicin) Confirm Administered Dose 200 mg .ROUTE .STK -MED ONE Stop: 09/06/18 07:01 - Exam Quality Assessment: Supplemental Oxygen, Urine Catheter, Restraints General: Alert, No Acute Distress, Lethargic. No: Oriented, Cooperative HEENT: Pupils Equal Lungs: Normal Respiratory Effort, Rhonchi (mild diffuse rhonchi ) Cardiovascular: Regular Rhythm, Tachycardia GI/Abdominal Exam: Soft, No Distention, Abnormal Bowel Sounds (hypoactive) Extremities: Pedal Edema (from foot to lower abdomen ), Other (edema of both arms) Skin: Warm, Dry Psy/Mental Status: Alert. No: Agitated - Problem List & Annotations (1) Diverticulitis of colon with perforation SNOMED Code(s): 85888538 Code(s): K57.20 - DVTRCLI OF LG INT W PERFORATION AND ABSCESS W/O BLEEDING Status: Acute Current Visit: Yes Qualifiers: Diverticulitis bleeding: without bleeding Qualified Code(s): K57.20 - Diverticulitis of large intestine with perforation and abscess without bleeding (2) Sepsis SNOMED Code(s): 77769767 Code(s): A41.9 - SEPSIS, UNSPECIFIED ORGANISM Status: Acute Current Visit : Yes Qualifiers: Sepsis type: sepsis due to unspecified organism Qualified Code(s): A41.9 - Sepsis, unspecified organism (3) Acute kidney injury SNOMED Code(s): 84420224, 47348657 Code(s): N17.9 - ACUTE KIDNEY FAILURE, UNSPECIFIED Status: Acute Current Visit: Yes (4) Leukopenia SNOMED Code(s): 06224541, 032851835 Code(s): D72.819 - DECREASED WHITE BLOOD CELL COUNT, UNSPECIFIED Status: Acute Current Visit: Yes Qualifiers: Leukopenia type: neutropenia Neutropenia type: other Qualified Code(s): D70.8 - Other neutropenia - Problem List Review Problem List Initiated/Reviewed/Updated: Yes - My Orders Last 24 Hours: My Active Orders 09/14/18 09:26 Weight Daily [Height and Weight] [RC] DAILY 09/14/18 09:30 Lactated Ringers [Ringers, Lactated] 1,000 ml IV ASDIRECTED 09/15/18 12:30 Furosemide [Lasix] 40 mg IVPUSH Q8H - Plan Plan:: ASSESSMENT AND PLAN Acute respiratory failure with hypoxia and hypercapnia - CT scan abdomen and pelvis obtained 09/08 shows evidence of bilateral pulmonary infiltrates consistent with infection, antibiotics have been changed to cover for pulmonary infection. Cultures to date have only grown out yeast from her respiratory specimens. Oxygenation has continued to improve with serial bronchoscopies. Secretions have been decreasing. mental status seems to be the largest limiting factor for extubation at this time. patient has significant edema and would benefit from ongoing diuresis. -furosemide 40 mg 2 doses today -Continue meropenem and fluconazole -Continue mechanical ventilation (changes made to RR, TV and peep) -Sedation is needed to avoid significant agitation -Soft wrist restraints -repeat weaning trial again in the morning (mental status/agitation limiting extubation at this time) Perforated sigmoid colon with sepsis - Initial surgical resection on 09/03 and Second Look laparotomy on 09/04. Sepsis has resolved. Cultures growing Klebsiella , Escherichia coli and anaerobic bacteria. stable from this standpoint. -Patient has completed adequate antibiotics -Pain control with STRUCTURAL TEST ENGINEER -TPN Anemia of critical illness - slow decline in hemoglobin. She is scheduled to receive 1 unit of packed red blood cells again this morning. Acute kidney injury - renal function improved and stable. -Management as above -Repeat labs in the morning Hyperactive delirium - She is now sedated with her intubation. -Symptomatically management and treatment of the above conditions Maintenance issues - - DVT prophylaxis - mechanical - GI prophylaxis - PPI - Nutrition - nothing by mouth - Rubin catheter - placed for strict intake and output monitoring and a critical patient Disposition - discharge plan depending on needs at the time of discharge Santana Cunningham M.D.
--- NOTE | 2018-09-15 11:15 | OR ---
DATE OF PROCEDURE: 09/04/2018 SURGEON: Christiano Estrada MD PREOPERATIVE DIAGNOSES: 1. Indication for central venous access. 2. Status post diffuse feculent peritonitis necessitating a second-look laparotomy and additional washout. POSTOPERATIVE DIAGNOSES: 1. Indication for central venous access. 2. Status post diffuse feculent peritonitis with second-look laparotomy showing: a. Pelvic and right subphrenic inflammatory fluid collections. b. Segment of small bowel with increased necrosis of the adjacent mesentery. OPERATIVE PROCEDURE: 1. Insertion of left subclavian vein triple-lumen catheter (46680). 2. Second-look laparotomy (63359) with: a. Drainage of pelvic peritoneal inflammatory fluid collection (02443). b. Drainage of right subphrenic inflammatory fluid collection (92050). c. Small bowel resection (52187). d. Mobilization of omentum into pelvis to limit adhesion formation between pelvic wall and adjacent viscera (37548). ANESTHESIA: General. ASSISTANTS: 1. Aleta Harper PA-C. 2. PABLO Ross. INDICATION FOR PROCEDURE: Please see the operative note and findings from yesterday. The plan is to proceed with a second-look laparotomy, given the extensive fecal soilage of the entire peritoneal cavity, with irrigation and drainage of any additional collections that might have developed, as well as evaluate the viscera, as there had been some areas of partial necrosis of the small bowel mesentery, at one point, requiring resection yesterday. Central line is also being placed for monitoring purposes, as well as initiation of IV hyperalimentation. Potential risks of procedure including bleeding, infection, leaks from various GI tract closures, and such were reviewed, and the patient's son wishes to proceed. The patient herself was not lucid enough to provide meaningful consent. DESCRIPTION OF PROCEDURE: The patient was taken to the operating room and then placed in a supine position. After general endotracheal anesthesia was induced, the upper chest and neck areas were then prepped and draped. Left subclavian vein was cannulated and guidewire passed. Over the guidewire, a triple-lumen catheter was positioned. Good in and out flow was noted. Ports were flushed with heparinized saline. The catheter sutured to skin with some 3-0 Vicryl stitch. Subsequent chest x-ray showed the catheter passing up into the jugular vein, and the position of the proximal port appeared to be adequate, however, for IV hyperalimentation, as well as monitoring of the central venous pressure, as long as a satisfactory waveform is maintained during those pressure measurements. The abdomen was then prepped and draped and the previous midline fascia then opened. Two fairly well-defined fluid collections had developed overnight. Both were thinly purulent and obviously associated with quite a bit of inflammatory response around them. The first one was in the pelvis more or less centered above the Rosa's pouch at the divided rectum. This was evacuated and cultures were obtained. Further exploration showed another well-defined somewhat walled off fluid collection in the right subphrenic area. This was also thinly purulent, and this was evacuated and cultures likewise obtained. At that point, the abdomen was irrigated with several liters of meropenem and cefazolin containing saline solution. One additional area of small bowel appeared to be not satisfactory to leave in placed, in terms of some of the bowel wall being necrotic in its adjacent mesentery. Additional small bowel resection was then accomplished at that level with the bowel proximally and distally being divided with the GRACE stapler. The common opening then closed likewise with the GRACE stapler as well. The angles were anastomosed and mesenteric defect was approximated with some 3-0 Vicryl stitch, and the anastomosis was reinforced with some fibrin sealant. At that point, 3 Jesus-Chavarria drains, two on the left and one on the right, were then placed, and the omentum was then mobilized downward into the pelvis to displace the viscera away from the pelvic sidewalls, to facilitate separate colostomy closure, as well as in general preventing adhesions between the small bowel and the pelvic structures. The omentum was tacked down there with some 3-0 Vicryl stitch. At that point, the midline fascia was approximated with a #2 Vicryl stitch. TAP blocks were then placed bilaterally, and the skin and subcutaneous tissue were then packed open for a planned delayed primary closure in 48 to 72 hours. The patient was taken back to the intensive care unit in reasonably stable condition. She was extubated at the conclusion of the procedure, then we will initiate some blood gas measurements over the ensuing hours, to make sure that adequate ventilatory function is being maintained. Physician embalmer assistant, Aleta Harper, played an essential role in assisting in this case, helping to position the patient, retract structures as needed, as well as suturing and cutting sutures when indicated. Her presence improved the patient's safety and decreased the operative time. Christiano Estrada MD /[id number]
[2018-09-15] MEDS: Furosemide 40 MG/4 ML VIAL IVPUSH SCH ×2 (12:43→20:39)
--- NOTE | 2018-09-15 13:50 | PCM.PN ---
- General Info Date of Service: 09/15/18 - Review of Systems Systems Review Comment:: Tina Muniz is a 77 year old female who is on postoperative day #12 from the original exploratory laparotomy surgery. Mental status: Sedated and on mechanical ventilation. She is not able to provide symptoms or a review of systems. Central venous pressures are around 16 to 17. Labs show that albumin is 1.9, and alkaline phosphatase at 181. Total intake through IV is 3285 mL, total output was 2863 mL. Output through Rubin catheter 2638 mL. Incision site appears to be healing well. - Patient Data Vitals - Most Recent: Last Vital Signs Temp 36.8 C 09/15/18 11:32 Pulse 90 09/15/18 10:54 Resp 24 H 09/15/18 13:00 BP 164/59 H 09/15/18 13:00 Pulse Ox 98 09/15/18 13:00 Weight - Most Recent: 45.359 kg I&O - Last 24 Hours: Intake & Output 09/14/18 09/15/18 09/15/18 22:59 06:59 14:59 Intake Total 1490 1545 325 Output Total 3657 405 1608 Balance -40 900 -725 Lab Results Last 24 Hours: Laboratory Results - last 24 hr 09/14/18 09/15/18 09/15/18 Range/Units 06:45 04:20 04:25 WBC 13.3 H (4.5-11.0) K/uL RBC 2.58 L (3.30-5.50) M/uL Hgb 8.5 L (12.0-15.0) g/dL Hct 25.9 L (36.0-48.0) % MCV 100 H (80-98) fL MCH 33 H (27-31) pg MCHC 33 (32-36) % Plt Count 280 (150-400) K/uL Puncture Site Line ABG pH 7.459 H (7.350-7.450) ABG pCO2 40.7 (35.0-42.0) mmHg ABG pO2 115.0 H (75.0-100.0) mmHg ABG HCO3 28.5 H (22.0-26.0) mmol/L ABG Total CO2 26.7 H (21.0-25.0) mmol/L ABG O2 Saturation 98.7 H (95.0-98.0) % ABG O2 Content 11.9 L (15.0-23.0) %vol ABG Base Excess 4.7 mm/L ABG Hemoglobin 8.6 L (12.0-16.0) g/dL ABG Oxyhemoglobin 96.1 % ABG Carboxyhemoglobin 2.1 H (0.0-1.6) % ABG Methemoglobin 0.5 % O2 Delivery Device Ventilator Oxygen Flow Rate L Sodium (140-148) mmol/L Potassium (3.6-5.2) mmol/L Chloride (100-108) mmol/L Carbon Dioxide (21-32) mmol/L Anion Gap (5.0-14.0) mmol/L BUN (7-18) mg/dL Creatinine (0.6-1.0) mg/dL Est Cr Clr Drug Dosing mL/min Estimated GFR (MDRD) (>60) Glucose (74-106) mg/dL Calcium (8.5-10.1) mg/dL Phosphorus (2.5-4.9) mg/dL Magnesium (1.8-2.4) mg/dL Total Bilirubin (0.2-1.0) mg/dL AST (15-37) U/L ALT (12-78) U/L Alkaline Phosphatase (46-116) U/L NT-Pro-B Natriuret Pep (5-450) pg/mL Total Protein (6.4-8.2) g/dL Albumin (3.4-5.0) g/dL Globulin (2.3-3.5) g/dL Albumin/Globulin Ratio (1.2-2.2) Blood Type O POSITIVE Gel Antibody Screen Negative Crossmatch See Detail 09/15/18 Range/Units 04:25 WBC (4.5-11.0) K/uL RBC (3.30-5.50) M/uL Hgb (12.0-15.0) g/dL Hct (36.0-48.0) % MCV (80-98) fL MCH (27-31) pg MCHC (32-36) % Plt Count (150-400) K/uL Puncture Site ABG pH (7.350-7.450) ABG pCO2 (35.0-42.0) mmHg ABG pO2 (75.0-100.0) mmHg ABG HCO3 (22.0-26.0) mmol/L ABG Total CO2 (21.0-25.0) mmol/L ABG O2 Saturation (95.0-98.0) % ABG O2 Content (15.0-23.0) %vol ABG Base Excess mm/L ABG Hemoglobin (12.0-16.0) g/dL ABG Oxyhemoglobin % ABG Carboxyhemoglobin (0.0-1.6) % ABG Methemoglobin % O2 Delivery Device Oxygen Flow Rate L Sodium 140 (140-148) mmol/L Potassium 4.6 (3.6-5.2) mmol/L Chloride 105 (100-108) mmol/L Carbon Dioxide 29 (21-32) mmol/L Anion Gap 6.5 (5.0-14.0) mmol/L BUN 52 H (7-18) mg/dL Creatinine 0.8 (0.6-1.0) mg/dL Est Cr Clr Drug Dosing 41.50 mL/min Estimated GFR (MDRD) > 60 (>60) Glucose 112 H (74-106) mg/dL Calcium 8.6 (8.5-10.1) mg/dL Phosphorus 5.2 H (2.5-4.9) mg/dL Magnesium 2.1 (1.8-2.4) mg/dL Total Bilirubin 1.1 H D (0.2-1.0) mg/dL AST 42 H (15-37) U/L ALT 73 (12-78) U/L Alkaline Phosphatase 181 H (46-116) U/L NT-Pro-B Natriuret Pep 3759 H (5-450) pg/mL Total Protein 4.9 L (6.4-8.2) g/dL Albumin 1.9 L (3.4-5.0) g/dL Globulin 3.0 (2.3-3.5) g/dL Albumin/Globulin Ratio 0.6 L (1.2-2.2) Blood Type Gel Antibody Screen Crossmatch Joseph Results Last 24 Hours: Microbiology 09/14/18 07:40 Gram Stain - Final Bronchial Aspirate Respiratory Culture - Preliminary Yeast Isolated 09/13/18 10:20 Gram Stain - Final Other - Bronchial Wound Culture - Preliminary Yeast Isolated Anaerobic Culture - Preliminary NO GROWTH AFTER 2 DAYS 09/12/18 12:57 Gram Stain - Final Bronchial Aspirate - Mixed Respiratory Culture - Final Yeast Isolated Med Orders - Current: Current Medications Acetylcysteine (Mucomyst 20%) 200 mg NEB QIDRT [facility] Last Admin: 09/15/18 10:54 Dose: 200 mg Albuterol (Proventil Neb Soln) 2.5 mg NEB Q4H PRN PRN Reason: Dyspnea Albuterol/Ipratropium (Duoneb 3.0-0.5 Mg/3 Ml) 3 ml NEB QIDRT [facility] Last Admin: 09/15/18 10:54 Dose: 3 ml Furosemide (Lasix) 40 mg IVPUSH Q8H [facility] Stop: 09/15/18 20:31 Last Admin: 09/15/18 12:43 Dose: 40 mg Hydralazine HCl (Apresoline) 5 mg IVPUSH Q4H PRN PRN Reason: Hypertension Last Admin: 09/10/18 15:44 Dose: 5 mg Hydromorphone HCl (Dilaudid [employer] 15 Mg In Ns 30 Ml) 0 mg IV ASDIRECTED PRN; Protocol PRN Reason: UPPER CUTTER 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 Last Admin: 09/09/18 05:52 Dose: 15 mg Hydroxyzine HCl (Vistaril) 50 mg IM Q4H PRN PRN Reason: Pain Heparin Sodium (Porcine) 5,000 (units/ Sodium Chloride) 501 mls @ 5 mls/hr IV ASDIRECTED [facility] Last Admin: 09/13/18 14:03 Dose: 5 mls/hr Heparin Sodium (Porcine) 5,000 (units/ Sodium Chloride) 501 mls @ 5 mls/hr IV ASDIRECTED [facility] Last Admin: 09/13/18 13:59 Dose: 5 mls/hr Propofol (Diprivan 100 Ml) 100 mls @ 1.361 mls/hr IV TITRATE [facility]; Protocol Last Admin: 09/15/18 11:06 Dose: 25 mcg/kg/min, 6.804 mls/hr Sodium Chloride (Normal Saline) 1,000 mls @ 0 mls/hr IV ASDIRECTED [facility] Last Admin: 09/10/18 14:57 Dose: 12.5 mls/hr Multivitamins/Minerals 10 ml/Chromium/Copper/Manganese/Seleni/Zn 1 ml/ Amino Ac/ Electrol/Dextrose/Calcium 1,011 mls @ 62 mls/hr IV .BY DURATION [facility] Last Admin: 09/15/18 08:40 Dose: 62 mls/hr Amino Ac/Electrol/Dextrose/Calcium (Clinimix E 09/28) 1,000 mls @ 62 mls/hr IV .BY DURATION [facility] Last Admin: 09/14/18 16:24 Dose: 62 mls/hr Meropenem 500 mg/ Sodium (Chloride) 25 mls @ 50 mls/hr IV Q8H [facility] Last Admin: 09/15/18 05:21 Dose: 50 mls/hr Azithromycin 500 mg/ Dextrose/ (Water) 250 mls @ 250 mls/hr IV Q24H [facility] Stop: 09/17/18 17:00 Last Admin: 09/14/18 15:42 Dose: 250 mls/hr Fluconazole/Sodium Chloride (200 mg/ Premix) 100 mls @ 100 mls/hr IV Q24H [facility] Last Admin: 09/14/18 20:06 Dose: 100 mls/hr Albumin Human (Albumin 25%) 25 gm in 100 mls @ 25 mls/hr IV Q24H [facility] Stop: 09/16/18 11:59 Last Admin: 09/15/18 09:16 Dose: 25 mls/hr Albumin Human (Albumin 25%) 25 gm in 100 mls @ 25 mls/hr IV Q24H [facility] Stop: 09/16/18 15:59 Last Admin: 09/15/18 12:48 Dose: 25 mls/hr Lactated Ringer's (Ringers, Lactated) 1,000 mls @ 25 mls/hr IV ASDIRECTED [facility] Last Admin: 09/14/18 11:48 Dose: 25 mls/hr Lorazepam (Ativan) 0.5 mg IVPUSH Q3H PRN PRN Reason: AGITATION Last Admin: 09/05/18 03:50 Dose: 0.25 mg Metoprolol Tartrate (Lopressor) 2.5 mg IVPUSH Q4H PRN PRN Reason: Hypertension Last Admin: 09/12/18 02:33 Dose: 2.5 mg Naloxone HCl (Narcan) 0.1 mg IV ASDIRECTED PRN PRN Reason: decreased respiratory rate Pantoprazole Sodium (Protonix Iv) 40 mg IV Q24H [facility] Last Admin: 09/14/18 21:27 Dose: 40 mg Discontinued Medications Acetaminophen (Tylenol) 650 mg PO Q4H PRN PRN Reason: Pain (Mild 1-3)/fever Acetaminophen (Tylenol) 650 mg RECTAL Q4H PRN PRN Reason: Mild pain/fever Albuterol (Proventil Neb Soln) 2.5 mg NEB Q4H PRN PRN Reason: Shortness Of Breath/wheezing Albuterol/Ipratropium (Duoneb 3.0-0.5 Mg/3 Ml) 3 ml INH PREPRO ONE Stop: 09/03/18 17:01 Last Admin: 09/03/18 16:25 Dose: 3 ml Albuterol/Ipratropium (Duoneb 3.0-0.5 Mg/3 Ml) 3 ml NEB QID [facility] Last Admin: 09/13/18 21:11 Dose: 3 ml Aztreonam (Azactam) Confirm Administered Dose 1 gm .ROUTE .STK-MED ONE Stop: 09/03/18 21:44 Last Admin: 09/03/18 22:15 Dose: Not Given Benazepril HCl (Lotensin) 40 mg PO ONETIME ONE Stop: 09/03/18 10:41 Last Admin: 09/03/18 11:00 Dose: 40 mg Bupivacaine HCl (Marcaine 0.5%) Confirm Administered Dose 50 ml .ROUTE .STK-MED ONE Stop: 09/07/18 06:48 Last Admin: 09/07/18 10:53 Dose: 18 ml Bupivacaine HCl (Marcaine 0.5%) Confirm Administered Dose 50 ml .ROUTE .STK-MED ONE Stop: 09/11/18 09:07 Last Admin: 09/11/18 10:49 Dose: 2 ml Ropivacaine 22 ml/Dexamethasone 8 mg/Epinephrine HCl 0.4 mg/ Sodium Chloride 55.6 ml 0 ml NERVRT ASDIRECTED [facility] Ropivacaine 22 ml/Dexamethasone 8 mg/Epinephrine HCl 0.4 mg/ Sodium Chloride 55.6 ml 0 ml NERVRT ASDIRECTED [facility] Last Admin: 09/04/18 14:03 Dose: 80 syringe Ropivacaine 22 ml/Dexamethasone 8 mg/Epinephrine HCl 0.4 mg/ Sodium Chloride 55.6 ml 0 ml NERVRT ASDIRECTED [facility] Last Admin: 09/07/18 11:07 Dose: 80 syringe Dexamethasone (Dexamethasone) Confirm Administered Dose 4 mg .ROUTE .STK-MED ONE Stop: 09/03/18 14:41 Dexamethasone (Dexamethasone) Confirm Administered Dose 4 mg .ROUTE .STK-MED ONE Stop: 09/04/18 09:47 Fentanyl (Sublimaze) 25 mcg IVPUSH ONETIME ONE Stop: 09/03/18 13:57 Last Admin: 09/03/18 14:16 Dose: 25 mcg Fentanyl (Sublimaze) 25 mcg IVPUSH Q2H PRN PRN Reason: Pain (severe 7-10) Fentanyl (Sublimaze) Confirm Administered Dose 250 mcg .ROUTE .STK-MED ONE Stop: 09/03/18 14:41 Fentanyl (Sublimaze) Confirm Administered Dose 250 mcg .ROUTE .STK-MED ONE Stop: 09/04/18 09:46 Fentanyl (Sublimaze) Confirm Administered Dose 250 mcg .ROUTE .STK-MED ONE Stop: 09/04/18 13:57 Fentanyl (Sublimaze) Confirm Administered Dose 100 mcg .ROUTE .STK-MED ONE Stop: 09/11/18 10:36 Furosemide (Lasix) 20 mg IVPUSH ONETIME ONE Stop: 09/04/18 15:10 Last Admin: 09/04/18 15:18 Dose: 20 mg Furosemide (Lasix) 40 mg IV ONETIME ONE Stop: 09/06/18 08:16 Last Admin: 09/06/18 08:26 Dose: 40 mg Furosemide (Lasix) 20 mg IV Q12H [facility] Stop: 09/07/18 20:01 Last Admin: 09/07/18 20:10 Dose: 20 mg Furosemide (Lasix) 20 mg IVPUSH Q12H [facility] Stop: 09/08/18 19:01 Last Admin: 09/08/18 19:50 Dose: 20 mg Furosemide (Lasix) 20 mg IVPUSH ONETIME ONE Stop: 09/09/18 07:01 Last Admin: 09/09/18 08:14 Dose: 20 mg Furosemide (Lasix) 20 mg IVPUSH ONETIME ONE Stop: 09/09/18 11:01 Last Admin: 09/09/18 12:38 Dose: 20 mg Furosemide (Lasix) 20 mg IVPUSH ONETIME ONE Stop: 09/09/18 20:01 Furosemide (Lasix) 20 mg IV Q8H [facility] Stop: 09/11/18 00:31 Last Admin: 09/10/18 23:50 Dose: 20 mg Furosemide (Lasix) 20 mg IV Q8H [facility] Stop: 09/12/18 00:01 Last Admin: 09/11/18 23:34 Dose: 20 mg Furosemide (Lasix) 20 mg IVPUSH Q8H [facility] Stop: 09/13/18 02:31 Last Admin: 09/13/18 02:39 Dose: 20 mg Furosemide (Lasix) 20 mg IVPUSH Q8H [facility] Stop: 09/14/18 02:31 Last Admin: 09/14/18 02:29 Dose: 20 mg Furosemide (Lasix) 40 mg IVPUSH ONETIME ONE Stop: 09/14/18 10:01 Last Admin: 09/14/18 13:28 Dose: 40 mg Furosemide (Lasix) 20 mg IVPUSH BID [facility] Furosemide (Lasix) 20 mg IVPUSH ONETIME ONE Stop: 09/15/18 06:34 Last Admin: 09/15/18 06:48 Dose: 20 mg Gentamicin Sulfate (Gentamicin) 1 mg IV .Pharmacy to Dose [facility] Stop: 09/08/18 14:31 Glycopyrrolate (Robinul) Confirm Administered Dose 1 mg .ROUTE .STK-MED ONE Stop: 09/03/18 14:41 Glycopyrrolate (Robinul) Confirm Administered Dose 1 mg .ROUTE .STK-MED ONE Stop: 09/04/18 09:47 Heparin Sodium (Porcine) (Heparin Sodium) Confirm Administered Dose 5,000 units .ROUTE .STK-MED ONE Stop: 09/03/18 18:32 Heparin Sodium (Porcine) (Heparin Lock Flush 100 Units/Ml) Confirm Administered Dose 500 units .ROUTE .STK-MED ONE Stop: 09/04/18 13:14 Heparin Sodium (Porcine) (Heparin Lock Flush 100 Units/Ml) Confirm Administered Dose 1,000 units .ROUTE .STK-MED ONE Stop: 09/11/18 09:07 Last Admin: 09/11/18 10:58 Dose: 1,000 units Heparin Sodium (Porcine) (Heparin Lock Flush 100 Units/Ml) Confirm Administered Dose 500 units .ROUTE .STK-MED ONE Stop: 09/11/18 10:44 Last Admin: 09/11/18 10:58 Dose: 500 units Hydromorphone HCl (Dilaudid) 0.5 mg IVPUSH ONETIME ONE Stop: 09/03/18 10:48 Last Admin: 09/03/18 11:00 Dose: 0.5 mg Hydromorphone HCl (Dilaudid) 0.5 mg IVPUSH ONETIME ONE Stop: 09/03/18 11:22 Last Admin: 09/03/18 11:25 Dose: 0.5 mg Hydromorphone HCl (Dilaudid) 0.5 mg IVPUSH ONETIME ONE Stop: 09/03/18 12:10 Last Admin: 09/03/18 12:12 Dose: 0.5 mg Hydromorphone HCl (Dilaudid) 0.5 mg IVPUSH ONETIME ONE Stop: 09/03/18 12:40 Last Admin: 09/03/18 12:44 Dose: 0.5 mg Hydromorphone HCl (Dilaudid) 1 mg IVPUSH ONETIME ONE Stop: 09/03/18 12:57 Last Admin: 09/03/18 13:00 Dose: 1 mg Sodium Chloride (Normal Saline) 1,000 mls @ 1,000 mls/hr IV .BOLUS ONE Stop: 09/03/18 12:17 Last Admin: 09/03/18 11:25 Dose: 1,000 mls/hr Piperacillin/Tazobactam/ (Dextrose 4.5 gm/ Premix) 100 mls @ 200 mls/hr IV ONETIME ONE Stop: 09/03/18 13:29 Last Admin: 09/03/18 13:04 Dose: 200 mls/hr Sodium Chloride (Normal Saline) 1,000 mls @ 500 mls/hr IV ASDIRECTED [facility] Last Admin: 09/03/18 13:00 Dose: 500 mls/hr Lactated Ringer's (Ringers, Lactated) 1,000 mls @ 125 mls/hr IV ASDIRECTED [facility] Last Admin: 09/03/18 16:07 Dose: 125 mls/hr Aztreonam 2 gm/ Sodium (Chloride) 100 mls @ 200 mls/hr IV NOW ONE Stop: 09/03/18 15:29 Last Admin: 09/03/18 14:56 Dose: 200 mls/hr Meropenem 500 mg/ Sodium (Chloride) 50 mls @ 100 mls/hr IV ONCALL ONE Stop: 09/03/18 17:29 Last Admin: 09/03/18 16:25 Dose: 100 mls/hr Piperacillin/Tazobactam/ (Dextrose 3.375 gm/ Premix) 50 mls @ 100 mls/hr IV Q6H [facility] Last Admin: 09/03/18 22:15 Dose: Not Given Sodium Chloride (Normal Saline) Confirm Administered Dose 500 mls @ as directed .ROUTE .STK-MED ONE Stop: 09/03/18 18:33 Aztreonam/Dextrose 1 gm/ (Premix) 50 mls @ 100 mls/hr IV Q8HR [facility] Meropenem 500 mg/ Sodium (Chloride) 50 mls @ 100 mls/hr IV Q8H [facility] Last Admin: 09/10/18 05:17 Dose: 100 mls/hr Sodium Chloride (Normal Saline) Confirm Administered Dose 50 mls @ as directed .ROUTE .STK-MED ONE Stop: 09/03/18 22:01 Last Admin: 09/03/18 22:21 Dose: Not Given Aztreonam/Dextrose 1 gm/ (Premix) 50 mls @ 100 mls/hr IV Q8H [facility] Last Admin: 09/04/18 07:30 Dose: Not Given Dextrose/Lactated Ringer's (Dextrose 5%-Lactated Ringers) 1,000 mls @ 100 mls/ hr IV ASDIRECTED PRN PRN Reason: Hypotension Dextrose/Lactated Ringer's (Dextrose 5%-Lactated Ringers) 1,000 mls @ 100 mls/ hr IV ASDIRECTED [facility] Last Admin: 09/05/18 02:13 Dose: 100 mls/hr Lactated Ringer's (Ringers, Lactated) 1,000 mls @ 100 mls/hr IV ASDIRECTED [facility] Last Admin: 09/04/18 04:20 Dose: 100 mls/hr Lactated Ringer's (Ringers, Lactated) 500 mls @ 500 mls/hr IV .BOLUS [facility] Last Admin: 09/04/18 01:10 Dose: 500 mls/hr Lactated Ringer's (Ringers, Lactated) 500 mls @ 500 mls/hr IV .BOLUS [facility] Last Admin: 09/04/18 03:13 Dose: 500 mls/hr Propofol (Diprivan 100 Ml) 100 mls @ 1.361 mls/hr IV TITRATE [facility]; Protocol Last Titration: 09/04/18 07:52 Dose: 14 mcg/kg/min, 3.81 mls/hr Propofol (Diprivan 100 Ml) Confirm Administered Dose 100 mls @ as directed .ROUTE .STK-MED ONE Stop: 09/04/18 03:45 Last Admin: 09/04/18 03:59 Dose: Not Given Lactated Ringer's (Ringers, Lactated) 500 mls @ 999 mls/hr IV .BOLUS NAHED Last Admin: 09/04/18 06:10 Dose: 999 mls/hr Aztreonam/Dextrose 1 gm/ (Premix) 50 mls @ 100 mls/hr IV Q8H [facility] Last Admin: 09/07/18 08:15 Dose: 100 mls/hr Lactated Ringer's (Ringers, Lactated) 500 mls @ 500 mls/hr IV ASDIRECTED [facility] Last Admin: 09/04/18 21:04 Dose: 500 mls/hr Lactated Ringer's (Ringers, Lactated) Confirm Administered Dose 1,000 mls @ as directed .ROUTE .ST-MED ONE Stop: 09/04/18 13:11 Lactated Ringer's (Ringers, Lactated) Confirm Administered Dose 1,000 mls @ as directed .ROUTE .ST-MED ONE Stop: 09/04/18 13:11 Sodium Chloride (Normal Saline) Confirm Administered Dose 10 mls @ as directed .ROUTE .[facility]-MED ONE Stop: 09/04/18 13:15 Magnesium Sulfate 2 gm/ Premix 50 mls @ 25 mls/hr IV Q6H [facility] Stop: 09/06/18 11:59 Last Admin: 09/06/18 10:17 Dose: 25 mls/hr Lactated Ringer's (Ringers, Lactated) 500 mls @ 500 mls/hr IV ASDIRECTED [facility] Stop: 09/04/18 17:46 Lactated Ringer's (Ringers, Lactated) 500 mls @ 500 mls/hr IV ONETIME ONE Stop: 09/04/18 19:29 Last Admin: 09/04/18 18:37 Dose: 500 mls/hr Lactated Ringer's (Ringers, Lactated) 500 mls @ 1,000 mls/hr IV ONETIME ONE Stop: 09/04/18 23:30 Last Admin: 09/04/18 23:18 Dose: 1,000 mls/hr Lactated Ringer's (Ringers, Lactated) 500 mls @ 1,000 mls/hr IV ONETIME ONE Stop: 09/05/18 01:44 Last Admin: 09/05/18 01:15 Dose: 1,000 mls/hr Lactated Ringer's (Ringers, Lactated) 1,000 mls @ 150 mls/hr IV ASDIRECTED [facility] Last Admin: 09/05/18 02:13 Dose: 150 mls/hr Lactated Ringer's (Ringers, Lactated) 500 mls @ 1,000 mls/hr IV ONETIME ONE Stop: 09/05/18 03:38 Last Admin: 09/05/18 03:15 Dose: 1,000 mls/hr Multivitamins/Minerals 10 ml/Chromium/Copper/Manganese/Seleni/Zn 1 ml/ Amino Ac/ Electrol/Dextrose/Calcium 2,011 mls @ 82 mls/hr IV .BY DURATION [facility] Stop: 09/05/18 13:25 Last Admin: 09/05/18 13:32 Dose: Not Given Amino Ac/Electrol/Dextrose/Calcium (Clinimix E 5/15) 2,000 mls @ 82 mls/hr IV .BY DURATION [facility] Stop: 09/05/18 13:25 Vancomycin HCl 1 gm/ Sodium (Chloride) 250 mls @ 167 mls/hr IV Q24H [facility] Last Admin: 09/05/18 12:34 Dose: 167 mls/hr Sodium Chloride (Normal Saline) 1,000 mls @ 50 mls/hr IV ASDIRECTED [facility] Last Admin: 09/05/18 12:51 Dose: 50 mls/hr Multivitamins/Minerals 10 ml/Chromium/Copper/Manganese/Seleni/Zn 1 ml/ Amino Ac/ Electrol/Dextrose/Calcium 2,011 mls @ 82 mls/hr IV .BY DURATION [facility] Stop: 09/08/18 13:20 Last Admin: 09/07/18 15:09 Dose: 82 mls/hr Amino Ac/Electrol/Dextrose/Calcium (Clinimix E 5/15) 2,000 mls @ 82 mls/hr IV .BY DURATION [facility] Stop: 09/08/18 13:20 Vancomycin HCl 1 gm/ Sodium (Chloride) 250 mls @ 167 mls/hr IV Q24H [facility] Last Admin: 09/06/18 12:00 Dose: 167 mls/hr Sodium Chloride (Normal Saline) 500 mls @ 500 mls/hr IV ASDIRECTED ONE Stop: 09/05/18 16:29 Last Admin: 09/05/18 15:40 Dose: 500 mls/hr Sodium Chloride (Normal Saline) 1,000 mls @ 100 mls/hr IV ASDIRECTED [facility] Last Admin: 09/07/18 07:31 Dose: 100 mls/hr Potassium Phosphate 20 mmole/ (Sodium Chloride) 106.6667 mls @ 35 mls/hr IV Q3H [facility] Stop: 09/07/18 17:29 Last Admin: 09/07/18 15:01 Dose: 35 mls/hr Albumin Human (Albumin 25%) 25 gm in 100 mls @ 25 mls/hr IV DAILY [facility] Stop: 09/09/18 12:59 Last Admin: 09/09/18 08:25 Dose: 25 mls/hr Albumin Human (Albumin 25%) 25 gm in 100 mls @ 25 mls/hr IV Q24H [facility] Stop: 09/09/18 17:59 Last Admin: 09/09/18 14:32 Dose: 25 mls/hr Aztreonam 1 gm/ Sodium (Chloride) 50 mls @ 100 mls/hr IV Q8H [facility] Last Admin: 09/08/18 09:41 Dose: 100 mls/hr Vancomycin HCl 1 gm/ Sodium (Chloride) 250 mls @ 167 mls/hr IV Q18H [facility] Last Admin: 09/09/18 18:42 Dose: 167 mls/hr Sodium Chloride (Normal Saline) 1,000 mls @ 999 mls/hr IV .BOLUS ONE Stop: 09/07/18 17:39 Last Admin: 09/07/18 17:26 Dose: 999 mls/hr Potassium Acetate 40 meq/ (Sodium Chloride) 120 mls @ 30 mls/hr IV ONETIME ONE Stop: 09/08/18 13:59 Last Admin: 09/08/18 09:44 Dose: 30 mls/hr Sodium Chloride (Normal Saline) 100 mls @ 3 mls/sec IV ASDIRECTED [facility] Stop: 09/08/18 15:00 Last Admin: 09/08/18 14:17 Dose: 3 mls/sec Azithromycin 500 mg/ Sodium (Chloride) 250 mls @ 250 mls/hr IV Q24H [facility] Last Admin: 09/09/18 15:27 Dose: 250 mls/hr Gentamicin Sulfate 228 mg/ (Sodium Chloride) 105.7 mls @ 100 mls/hr IV ONETIME ONE Stop: 09/08/18 17:03 Last Admin: 09/08/18 16:19 Dose: 100 mls/hr Potassium Phosphate 15 mmole/ (Sodium Chloride) 105 mls @ 55 mls/hr IV Q2H [facility] Stop: 09/09/18 12:55 Last Admin: 09/09/18 15:27 Dose: 55 mls/hr Gentamicin Sulfate 228 mg/ (Sodium Chloride) 105.7 mls @ 100 mls/hr IV Q36H [facility] Last Admin: 09/10/18 03:55 Dose: 100 mls/hr Sodium Chloride (Normal Saline) 500 mls @ 999 mls/hr IV .BOLUS ONE Stop: 09/09/18 16:34 Last Admin: 09/09/18 16:18 Dose: 999 mls/hr Sodium Chloride (Normal Saline) 500 mls @ 999 mls/hr IV .BOLUS ONE Stop: 09/09/18 17:35 Last Admin: 09/09/18 17:18 Dose: 999 mls/hr Sodium Chloride (Normal Saline) 1,000 mls @ 125 mls/hr IV ASDIRECTED [facility] Last Admin: 09/10/18 01:41 Dose: 125 mls/hr Lactated Ringer's (Ringers, Lactated) 1,000 mls @ 125 mls/hr IV ASDIRECTED [facility] Last Admin: 09/11/18 01:06 Dose: 125 mls/hr Gentamicin Sulfate 228 mg/ (Sodium Chloride) 55.7 mls @ 55 mls/hr IV Q36H [facility] Last Admin: 09/14/18 16:49 Dose: 55 mls/hr Vancomycin HCl 1 gm/ Dextrose/ (Water) 250 mls @ 167 mls/hr IV Q24H [facility] Last Admin: 09/13/18 17:48 Dose: 167 mls/hr Magnesium Sulfate 2 gm/ Premix 50 mls @ 25 mls/hr IV Q6H [facility] Stop: 09/13/18 05:59 Last Admin: 09/13/18 03:31 Dose: 25 mls/hr Potassium Phosphate 22.5 mmole (/ Dextrose/Water) 107.5 mls @ 27 mls/hr IV Q4H [facility] Stop: 09/11/18 17:29 Last Admin: 09/11/18 14:45 Dose: 27 mls/hr Lactated Ringer's (Ringers, Lactated) 1,000 mls @ 75 mls/hr IV ASDIRECTED [facility] Last Admin: 09/13/18 22:27 Dose: 75 mls/hr Sodium Chloride (Normal Saline) Confirm Administered Dose 10 mls @ as directed .ROUTE .STK-MED ONE Stop: 09/11/18 10:41 Potassium Chloride 40 meq/ (Premix) 100 mls @ 25 mls/hr IV ONETIME ONE Stop: 09/13/18 12:59 Last Admin: 09/13/18 09:31 Dose: 25 mls/hr Potassium Chloride 40 meq/ (Premix) 100 mls @ 25 mls/hr IV ONETIME ONE Stop: 09/13/18 17:59 Last Admin: 09/13/18 13:11 Dose: 25 mls/hr Iopamidol (Isovue-300 (61%)) 100 ml IV . DIRECTED PRN PRN Reason: RADIOLOGY EXAM Stop: 09/09/18 11:03 Last Admin: 09/08/18 14:16 Dose: 100 ml Lidocaine HCl (Xylocaine 2% Viscous) Confirm Administered Dose 15 ml .ROUTE .STK -MED ONE Stop: 09/12/18 11:15 Lidocaine HCl (Xylocaine 4% Top Soln) Confirm Administered Dose 50 ml .ROUTE .STK-MED ONE Stop: 09/12/18 11:15 Lidocaine HCl (Xylocaine 4% Top Soln) Confirm Administered Dose 50 ml .ROUTE .STK-MED ONE Stop: 09/14/18 06:57 Last Admin: 09/14/18 07:20 Dose: 20 ml Lidocaine/Epinephrine (Xylocaine 1% With Epinephrine 1:100,000) Confirm Administered Dose 50 ml .ROUTE .STK-MED ONE Stop: 09/07/18 06:48 Last Admin: 09/07/18 10:54 Dose: 18 ml Lidocaine/Epinephrine (Xylocaine 1% With Epinephrine 1:100,000) Confirm Administered Dose 50 ml .ROUTE .STK-MED ONE Stop: 09/11/18 09:07 Last Admin: 09/11/18 10:49 Dose: 2 ml Lorazepam (Ativan) 0.5 mg IVPUSH Q4H PRN PRN Reason: Nausea/Vomiting Meropenem (Merrem) Confirm Administered Dose 1,000 mg .ROUTE .STK-MED ONE Stop: 09/03/18 17:54 Last Admin: 09/03/18 18:32 Dose: 3,500 mg Meropenem (Merrem) Confirm Administered Dose 1,000 mg .ROUTE .STK-MED ONE Stop: 09/03/18 18:04 Meropenem (Merrem) Confirm Administered Dose 2,000 mg .ROUTE .STK-MED ONE Stop: 09/03/18 18:18 Meropenem (Merrem) Confirm Administered Dose 500 mg .ROUTE .STK-MED ONE Stop: 09/07/18 06:48 Last Admin: 09/07/18 10:53 Dose: 500 mg Metoprolol Tartrate (Lopressor) 25 mg PO ONETIME ONE Stop: 09/03/18 10:41 Last Admin: 09/03/18 11:00 Dose: 25 mg Metoprolol Tartrate (Lopressor) 5 mg IVPUSH Q6H [facility] Last Admin: 09/08/18 09:25 Dose: 5 mg Metoprolol Tartrate (Lopressor) 2.5 mg IVPUSH Q6H [facility] Last Admin: 09/10/18 03:55 Dose: 2.5 mg Metoprolol Tartrate (Lopressor) Confirm Administered Dose 5 mg .ROUTE .STK-MED ONE Stop: 09/08/18 21:53 Last Admin: 09/08/18 22:19 Dose: Not Given Metoprolol Tartrate (Lopressor) 2.5 mg IVPUSH Q4H [facility] Last Admin: 09/11/18 21:25 Dose: Not Given Neostigmine Methylsulfate (Neostigmine) Confirm Administered Dose 5 mg .ROUTE .STK-MED ONE Stop: 09/03/18 14:41 Neostigmine Methylsulfate (Neostigmine) Confirm Administered Dose 5 mg .ROUTE .STK-MED ONE Stop: 09/04/18 09:47 Non-Formulary Medication (Total Parenteral Nutrition, Central) 0 ml IV ASDIRECTED [facility] Stop: 09/12/18 13:31 Non-Formulary Medication (Total Parenteral Nutrition, Central) 0 ml IV ASDIRECTED [facility] Stop: 09/13/18 13:00 Ondansetron HCl (Zofran Odt) 4 mg PO Q6H PRN PRN Reason: Nausea able to take PO Ondansetron HCl (Zofran) 4 mg IV Q6H PRN PRN Reason: Nausea/Vomiting Ondansetron HCl (Zofran) Confirm Administered Dose 4 mg .ROUTE .STK-MED ONE Stop: 09/03/18 14:41 Ondansetron HCl (Zofran) Confirm Administered Dose 4 mg .ROUTE .STK-MED ONE Stop: 09/04/18 09:47 Pantoprazole Sodium (Protonix Iv) 40 mg IV Q12H [facility] Last Admin: 09/03/18 16:07 Dose: 40 mg Piperacillin Sod/Tazobactam Sod (Zosyn) 10.125 gm [facility] Stop: 09/04/18 15:00 Last Admin: 09/04/18 14:04 Dose: 10.125 gm Propofol (Diprivan 20 Ml) Confirm Administered Dose 200 mg .ROUTE .STK-MED ONE Stop: 09/03/18 14:41 Propofol (Diprivan 20 Ml) Confirm Administered Dose 200 mg .ROUTE .STK-MED ONE Stop: 09/04/18 09:47 Propofol (Diprivan 20 Ml) Confirm Administered Dose 200 mg .ROUTE .STK-MED ONE Stop: 09/06/18 07:01 Rocuronium [place] (Zemuron) Confirm Administered Dose 50 mg .ROUTE .STK-MED ONE Stop: 09/03/18 14:41 Rocuronium [place] (Zemuron) Confirm Administered Dose 50 mg .ROUTE .STK-MED ONE Stop: 09/04/18 09:47 Succinylcholine Chloride (Quelicin) Confirm Administered Dose 200 mg .ROUTE .STK -MED ONE Stop: 09/03/18 14:41 Succinylcholine Chloride (Quelicin) Confirm Administered Dose 200 mg .ROUTE .STK -MED ONE Stop: 09/04/18 09:47 Succinylcholine Chloride (Quelicin) Confirm Administered Dose 200 mg .ROUTE .STK -MED ONE Stop: 09/06/18 07:01 - Exam Quality Assessment: Supplemental Oxygen, Central Line/PICC, Urine Catheter General: Sedated Lungs: Normal Respiratory Effort, Rhonchi Cardiovascular: Regular Rhythm, Tachycardia GI/Abdominal Exam: No Distention Skin: Warm Wound/Incisions: Dressing Dry and Intact, No Drainage - Problem List Review Problem List Initiated/Reviewed/Updated: Yes - Assessment Assessment:: 1. 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 Exploratory laparotomy with a. sigmoid colon resection with end colotomy plus Rosa procedure b. drainage of pericolonic abscess plus diffuse peritoneal cavity washout c. small bowel resection Date of procedure: 09/03/2018, Surgeon Christiano Estrada MD 3.Indication of central venous access 4. Diffuse feculent perforation with second look laparotomy showing: a. pelvic right subphrenic with fluid collection b. segment small bowel with increasing necrosis adjacent mesentery 5. Insertion Left subclavian triple-lumen catheter 6. Second look laparotomy with: a. drainage peritoneal inflammatory fluid collection b. drainage right subphrenic inflammatory fluid collection d. plus small bowel resection 7. Date of procedure: 09/04/2018, Surgeon, Christiano Estrada MD 8. Hypoalbuminemia 9. Ventilator dependence 10. SP Bronchoscopy. Bony Olson MD on 09/12/2018 11. Large volume mucoid pulmonary secretions, cleaned by bronchoscopy; Mucomyst started yesterday - Plan Plan:: 1. Transfuse 1 unit of packed red blood cells today 2. Administer Lasix 20 mg at 8 AM and after transfusion to facilitate diuresis 3. Continue current TPN rate and content 4. AM labs: CBC, CMP, Phosphorous and ABG 5. Recheck in AM or as needed 6. Weaning trial later today
[2018-09-15] MEDS: Lactated Ringers 1,000 ML IV SCH (16:06)
[2018-09-15] MEDS: Sodium Chloride 0.9% 1,000 ML IV SCH (16:07)
[2018-09-15] MEDS: Fluconazole/Normal Saline 200 MG in Premix Bag 1 BAG IV SCH (20:38)
[2018-09-15] MEDS: Pantoprazole 40 MG Vial IV SCH (21:51)
[2018-09-15] MEDS: HYDROmorphone 0.5 MG/0.5 ML Syringe IVPUSH PRN (23:30)
[2018-09-16] MEDS: 1: AA 5%/Calcium/D20W/Lytes 1,000 ML with MVI, Adult with Vitamin K 10 ML, Chromium/Copp IV SCH ×6 (01:02→17:32)
--- NOTE | 2018-09-16 05:19 | CRLCR ---
INDICATION: Endotracheal tube TECHNIQUE: Chest 1 views COMPARISON: Chest x-ray 09/15/2018 FINDINGS: Cardiovascular and mediastinum: Normal heart size with endotracheal tube at the mid to distal trachea. Nasogastric tube extends below the hemidiaphragm. Right subclavian line extends to the cavoatrial junction. Atherosclerosis. Lungs and pleural spaces: Small right pleural effusion with the linear pocket of air overlying the right midlung. Patchy bibasilar airspace disease with trace left pleural effusion. Mild pulmonary cephalization. Bones and soft tissues: Skin yassine overlie the pelvis. IMPRESSION: 1. Trace left and small right pleural effusion with bibasilar atelectasis and bilateral interstitial opacities. Compared to the prior examination this is mildly improved. Dictated by Keven Cronin MD @ Sep 16 2018 5:14AM Signed by Dr. Keven Cronin @ Sep 16 2018 5:16AM
[2018-09-16] MEDS: SODIUM CHLORIDE 0.9% IV SCH ×3 (05:45→22:20)
[2018-09-16] MEDS: MEROPENEM IV SCH ×3 (05:45→22:20)
[2018-09-16] MEDS: Acetylcysteine 20% 200 MG/ML 4 ML Nebulizer Soln SDV NEB SCH ×4 (07:30→21:10)
[2018-09-16] MEDS: Albuterol/Ipratropium 3.0-0.5 MG/3 ML Neb Soln NEB SCH ×4 (07:30→21:10)
[2018-09-16] MEDS ORDERED: Potassium Chloride Riders 40 MEQ in Premix Bag 1 BAG IV ONE (08:00)
--- NOTE | 2018-09-16 08:15 | PCM.PN ---
- General Info Date of Service: 09/16/18 - Review of Systems Systems Review Comment:: Tina Muniz is a 77 year old female who is on postoperative day #13 from the original exploratory laparotomy surgery. Mental status: Sedated and on mechanical ventilation. She is not able to provide symptoms or a review of systems. Central venous pressures are around 8 to 12. Labs show that albumin is 2.4, and alkaline phosphatase at 235. Potassium is 3.9 and Phosphorous is 5.2. Total intake is 3354 mL, total output was 5825 mL. Output through Rubin catheter 5750 mL. Incision site appears to be healing well. - Patient Data Vitals - Most Recent: Last Vital Signs Temp 36.6 C 09/16/18 05:00 Pulse 99 09/16/18 07:30 Resp 24 H 09/16/18 06:00 BP 156/67 H 09/16/18 06:00 Pulse Ox 99 09/16/18 07:30 Weight - Most Recent: 78.471 kg I&O - Last 24 Hours: Intake & Output 09/15/18 09/16/18 09/16/18 22:59 06:59 14:59 Intake Total 1625 1404 Output Total 2475 2300 Balance -850 -896 Lab Results Last 24 Hours: Laboratory Results - last 24 hr 09/14/18 09/16/18 09/16/18 Range/Units 06:45 04:20 04:20 WBC 12.4 H (4.5-11.0) K/uL RBC 3.18 L (3.30-5.50) M/uL Hgb 9.9 L (12.0-15.0) g/dL Hct 30.9 L (36.0-48.0) % MCV 97 (80-98) fL MCH 31 (27-31) pg MCHC 32 (32-36) % Plt Count 286 (150-400) K/uL Puncture Site Line ABG pH 7.499 H (7.350-7.450) ABG pCO2 37.9 (35.0-42.0) mmHg ABG pO2 83.9 (75.0-100.0) mmHg ABG HCO3 29.2 H (22.0-26.0) mmol/L ABG Total CO2 26.6 H (21.0-25.0) mmol/L ABG O2 Saturation 97.1 (95.0-98.0) % ABG O2 Content 13.4 L (15.0-23.0) %vol ABG Base Excess 6.0 mm/L ABG Hemoglobin 10.1 L (12.0-16.0) g/dL ABG Oxyhemoglobin 94.1 % ABG Carboxyhemoglobin 2.5 H (0.0-1.6) % ABG Methemoglobin 0.6 % O2 Delivery Device Ventilator Oxygen Flow Rate L Sodium (140-148) mmol/L Potassium (3.6-5.2) mmol/L Chloride (100-108) mmol/L Carbon Dioxide (21-32) mmol/L Anion Gap (5.0-14.0) mmol/L BUN (7-18) mg/dL Creatinine (0.6-1.0) mg/dL Est Cr Clr Drug Dosing mL/min Estimated GFR (MDRD) (>60) Glucose (74-106) mg/dL Calcium (8.5-10.1) mg/dL Phosphorus (2.5-4.9) mg/dL Magnesium (1.8-2.4) mg/dL Total Bilirubin (0.2-1.0) mg/dL AST (15-37) U/L ALT (12-78) U/L Alkaline Phosphatase (46-116) U/L NT-Pro-B Natriuret Pep (5-450) pg/mL Total Protein (6.4-8.2) g/dL Albumin (3.4-5.0) g/dL Globulin (2.3-3.5) g/dL Albumin/Globulin Ratio (1.2-2.2) Blood Type O POSITIVE Gel Antibody Screen Negative Crossmatch See Detail 09/16/18 Range/Units 05:00 WBC (4.5-11.0) K/uL RBC (3.30-5.50) M/uL Hgb (12.0-15.0) g/dL Hct (36.0-48.0) % MCV (80-98) fL MCH (27-31) pg MCHC (32-36) % Plt Count (150-400) K/uL Puncture Site ABG pH (7.350-7.450) ABG pCO2 (35.0-42.0) mmHg ABG pO2 (75.0-100.0) mmHg ABG HCO3 (22.0-26.0) mmol/L ABG Total CO2 (21.0-25.0) mmol/L ABG O2 Saturation (95.0-98.0) % ABG O2 Content (15.0-23.0) %vol ABG Base Excess mm/L ABG Hemoglobin (12.0-16.0) g/dL ABG Oxyhemoglobin % ABG Carboxyhemoglobin (0.0-1.6) % ABG Methemoglobin % O2 Delivery Device Oxygen Flow Rate L Sodium 140 (140-148) mmol/L Potassium 3.9 (3.6-5.2) mmol/L Chloride 102 (100-108) mmol/L Carbon Dioxide 31 (21-32) mmol/L Anion Gap 7.4 (5.0-14.0) mmol/L BUN 51 H (7-18) mg/dL Creatinine 0.8 (0.6-1.0) mg/dL Est Cr Clr Drug Dosing 41.50 mL/min Estimated GFR (MDRD) > 60 (>60) Glucose 112 H (74-106) mg/dL Calcium 9.0 (8.5-10.1) mg/dL Phosphorus 5.2 H (2.5-4.9) mg/dL Magnesium 1.8 (1.8-2.4) mg/dL Total Bilirubin 1.1 H (0.2-1.0) mg/dL AST 53 H (15-37) U/L ALT 79 H (12-78) U/L Alkaline Phosphatase 235 H (46-116) U/L NT-Pro-B Natriuret Pep 5711 H (5-450) pg/mL Total Protein 5.4 L (6.4-8.2) g/dL Albumin 2.4 L (3.4-5.0) g/dL Globulin 3.0 (2.3-3.5) g/dL Albumin/Globulin Ratio 0.8 L (1.2-2.2) Blood Type Gel Antibody Screen Crossmatch Joseph Results Last 24 Hours: Microbiology 09/14/18 07:40 Gram Stain - Final Bronchial Aspirate Respiratory Culture - Final Yeast Isolated 09/13/18 10:20 Gram Stain - Final Other - Bronchial Wound Culture - Final Yeast Isolated Anaerobic Culture - Final NO GROWTH AFTER 3 DAYS Med Orders - Current: Current Medications Acetylcysteine (Mucomyst 20%) 200 mg NEB QIDRT [facility] Last Admin: 09/16/18 07:30 Dose: 200 mg Albuterol (Proventil Neb Soln) 2.5 mg NEB Q4H PRN PRN Reason: Dyspnea Albuterol/Ipratropium (Duoneb 3.0-0.5 Mg/3 Ml) 3 ml NEB QIDRT [facility] Last Admin: 09/16/18 07:30 Dose: 3 ml Furosemide (Lasix) 40 mg IV BID [facility] Stop: 09/16/18 21:01 Hydralazine HCl (Apresoline) 5 mg IVPUSH Q4H PRN PRN Reason: Hypertension Last Admin: 09/10/18 15:44 Dose: 5 mg Hydromorphone HCl (Dilaudid) 0.5 mg IVPUSH Q2H PRN PRN Reason: Pain Last Admin: 09/15/18 23:30 Dose: 0.5 mg Hydroxyzine HCl (Vistaril) 50 mg IM Q4H PRN PRN Reason: Pain Heparin Sodium (Porcine) 5,000 (units/ Sodium Chloride) 501 mls @ 5 mls/hr IV ASDIRECTED [facility] Last Admin: 09/13/18 14:03 Dose: 5 mls/hr Heparin Sodium (Porcine) 5,000 (units/ Sodium Chloride) 501 mls @ 5 mls/hr IV ASDIRECTED [facility] Last Admin: 09/13/18 13:59 Dose: 5 mls/hr Propofol (Diprivan 100 Ml) 100 mls @ 1.361 mls/hr IV TITRATE [facility]; Protocol Last Titration: 09/16/18 05:51 Dose: 45 mcg/kg/min, 12.247 mls/hr Sodium Chloride (Normal Saline) 1,000 mls @ 0 mls/hr IV ASDIRECTED [facility] Last Admin: 09/15/18 16:07 Dose: 12.5 mls/hr Multivitamins/Minerals 10 ml/Chromium/Copper/Manganese/Seleni/Zn 1 ml/ Amino Ac/ Electrol/Dextrose/Calcium 1,011 mls @ 62 mls/hr IV .BY DURATION [facility] Last Admin: 09/15/18 08:40 Dose: 62 mls/hr Amino Ac/Electrol/Dextrose/Calcium (Clinimix E 5/20) 1,000 mls @ 62 mls/hr IV .BY DURATION [facility] Last Admin: 09/16/18 01:02 Dose: 62 mls/hr Meropenem 500 mg/ Sodium (Chloride) 25 mls @ 50 mls/hr IV Q8H [facility] Last Admin: 09/16/18 05:45 Dose: 50 mls/hr Albumin Human (Albumin 25%) 25 gm in 100 mls @ 25 mls/hr IV Q24H [facility] Stop: 09/16/18 11:59 Last Admin: 09/15/18 09:16 Dose: 25 mls/hr Albumin Human (Albumin 25%) 25 gm in 100 mls @ 25 mls/hr IV Q24H [facility] Stop: 09/16/18 15:59 Last Admin: 09/15/18 12:48 Dose: 25 mls/hr Lactated Ringer's (Ringers, Lactated) 1,000 mls @ 25 mls/hr IV ASDIRECTED [facility] Last Admin: 09/15/18 16:06 Dose: 25 mls/hr Fluconazole/Sodium Chloride (400 mg/ Premix) 200 mls @ 100 mls/hr IV Q24H [facility] Potassium Chloride 40 meq/ (Premix) 100 mls @ 25 mls/hr IV ONETIME ONE Stop: 09/16/18 11:59 Last Admin: 09/16/18 08:02 Dose: 25 mls/hr Potassium Chloride 20 meq/ (Premix) 100 mls @ 50 mls/hr IV ONETIME ONE Stop: 09/16/18 13:59 Lorazepam (Ativan) 0.5 mg IVPUSH Q3H PRN PRN Reason: AGITATION Last Admin: 09/05/18 03:50 Dose: 0.25 mg Metoprolol Tartrate (Lopressor) 2.5 mg IVPUSH Q4H PRN PRN Reason: Hypertension Last Admin: 09/12/18 02:33 Dose: 2.5 mg Naloxone HCl (Narcan) 0.1 mg IV ASDIRECTED PRN PRN Reason: decreased respiratory rate Pantoprazole Sodium (Protonix Iv) 40 mg IV Q24H [facility] Last Admin: 09/15/18 21:51 Dose: 40 mg Discontinued Medications Acetaminophen (Tylenol) 650 mg PO Q4H PRN PRN Reason: Pain (Mild 1-3)/fever Acetaminophen (Tylenol) 650 mg RECTAL Q4H PRN PRN Reason: Mild pain/fever Albuterol (Proventil Neb Soln) 2.5 mg NEB Q4H PRN PRN Reason: Shortness Of Breath/wheezing Albuterol/Ipratropium (Duoneb 3.0-0.5 Mg/3 Ml) 3 ml INH PREPRO ONE Stop: 09/03/18 17:01 Last Admin: 09/03/18 16:25 Dose: 3 ml Albuterol/Ipratropium (Duoneb 3.0-0.5 Mg/3 Ml) 3 ml NEB QID NAHED Last Admin: 09/13/18 21:11 Dose: 3 ml Aztreonam (Azactam) Confirm Administered Dose 1 gm .ROUTE .STK-MED ONE Stop: 09/03/18 21:44 Last Admin: 09/03/18 22:15 Dose: Not Given Benazepril HCl (Lotensin) 40 mg PO ONETIME ONE Stop: 09/03/18 10:41 Last Admin: 09/03/18 11:00 Dose: 40 mg Bupivacaine HCl (Marcaine 0.5%) Confirm Administered Dose 50 ml .ROUTE .STK-MED ONE Stop: 09/07/18 06:48 Last Admin: 09/07/18 10:53 Dose: 18 ml Bupivacaine HCl (Marcaine 0.5%) Confirm Administered Dose 50 ml .ROUTE .STK-MED ONE Stop: 09/11/18 09:07 Last Admin: 09/11/18 10:49 Dose: 2 ml Ropivacaine 22 ml/Dexamethasone 8 mg/Epinephrine HCl 0.4 mg/ Sodium Chloride 55.6 ml 0 ml NERVRT ASDIRECTED [facility] Ropivacaine 22 ml/Dexamethasone 8 mg/Epinephrine HCl 0.4 mg/ Sodium Chloride 55.6 ml 0 ml NERVRT ASDIRECTED [facility] Last Admin: 09/04/18 14:03 Dose: 80 syringe Ropivacaine 22 ml/Dexamethasone 8 mg/Epinephrine HCl 0.4 mg/ Sodium Chloride 55.6 ml 0 ml NERVRT ASDIRECTED [facility] Last Admin: 09/07/18 11:07 Dose: 80 syringe Dexamethasone (Dexamethasone) Confirm Administered Dose 4 mg .ROUTE .STK-MED ONE Stop: 09/03/18 14:41 Dexamethasone (Dexamethasone) Confirm Administered Dose 4 mg .ROUTE .STK-MED ONE Stop: 09/04/18 09:47 Fentanyl (Sublimaze) 25 mcg IVPUSH ONETIME ONE Stop: 09/03/18 13:57 Last Admin: 09/03/18 14:16 Dose: 25 mcg Fentanyl (Sublimaze) 25 mcg IVPUSH Q2H PRN PRN Reason: Pain (severe 7-10) Fentanyl (Sublimaze) Confirm Administered Dose 250 mcg .ROUTE .STK-MED ONE Stop: 09/03/18 14:41 Fentanyl (Sublimaze) Confirm Administered Dose 250 mcg .ROUTE .STK-MED ONE Stop: 09/04/18 09:46 Fentanyl (Sublimaze) Confirm Administered Dose 250 mcg .ROUTE .STK-MED ONE Stop: 09/04/18 13:57 Fentanyl (Sublimaze) Confirm Administered Dose 100 mcg .ROUTE .STK-MED ONE Stop: 09/11/18 10:36 Furosemide (Lasix) 20 mg IVPUSH ONETIME ONE Stop: 09/04/18 15:10 Last Admin: 09/04/18 15:18 Dose: 20 mg Furosemide (Lasix) 40 mg IV ONETIME ONE Stop: 09/06/18 08:16 Last Admin: 09/06/18 08:26 Dose: 40 mg Furosemide (Lasix) 20 mg IV Q12H [facility] Stop: 09/07/18 20:01 Last Admin: 09/07/18 20:10 Dose: 20 mg Furosemide (Lasix) 20 mg IVPUSH Q12H [facility] Stop: 09/08/18 19:01 Last Admin: 09/08/18 19:50 Dose: 20 mg Furosemide (Lasix) 20 mg IVPUSH ONETIME ONE Stop: 09/09/18 07:01 Last Admin: 09/09/18 08:14 Dose: 20 mg Furosemide (Lasix) 20 mg IVPUSH ONETIME ONE Stop: 09/09/18 11:01 Last Admin: 09/09/18 12:38 Dose: 20 mg Furosemide (Lasix) 20 mg IVPUSH ONETIME ONE Stop: 09/09/18 20:01 Furosemide (Lasix) 20 mg IV Q8H [facility] Stop: 09/11/18 00:31 Last Admin: 09/10/18 23:50 Dose: 20 mg Furosemide (Lasix) 20 mg IV Q8H NAHED Stop: 09/12/18 00:01 Last Admin: 09/11/18 23:34 Dose: 20 mg Furosemide (Lasix) 20 mg IVPUSH Q8H [facility] Stop: 09/13/18 02:31 Last Admin: 09/13/18 02:39 Dose: 20 mg Furosemide (Lasix) 20 mg IVPUSH Q8H [facility] Stop: 09/14/18 02:31 Last Admin: 09/14/18 02:29 Dose: 20 mg Furosemide (Lasix) 40 mg IVPUSH ONETIME ONE Stop: 09/14/18 10:01 Last Admin: 09/14/18 13:28 Dose: 40 mg Furosemide (Lasix) 20 mg IVPUSH BID [facility] Furosemide (Lasix) 20 mg IVPUSH ONETIME ONE Stop: 09/15/18 06:34 Last Admin: 09/15/18 06:48 Dose: 20 mg Furosemide (Lasix) 40 mg IVPUSH Q8H [facility] Stop: 09/15/18 20:31 Last Admin: 09/15/18 20:39 Dose: 40 mg Gentamicin Sulfate (Gentamicin) 1 mg IV .Pharmacy to Dose [facility] Stop: 09/08/18 14:31 Glycopyrrolate (Robinul) Confirm Administered Dose 1 mg .ROUTE .STK-MED ONE Stop: 09/03/18 14:41 Glycopyrrolate (Robinul) Confirm Administered Dose 1 mg .ROUTE .STK-MED ONE Stop: 09/04/18 09:47 Heparin Sodium (Porcine) (Heparin Sodium) Confirm Administered Dose 5,000 units .ROUTE .STK-MED ONE Stop: 09/03/18 18:32 Heparin Sodium (Porcine) (Heparin Lock Flush 100 Units/Ml) Confirm Administered Dose 500 units .ROUTE .STK-MED ONE Stop: 09/04/18 13:14 Heparin Sodium (Porcine) (Heparin Lock Flush 100 Units/Ml) Confirm Administered Dose 1,000 units .ROUTE .STK-MED ONE Stop: 09/11/18 09:07 Last Admin: 09/11/18 10:58 Dose: 1,000 units Heparin Sodium (Porcine) (Heparin Lock Flush 100 Units/Ml) Confirm Administered Dose 500 units .ROUTE .STK-MED ONE Stop: 09/11/18 10:44 Last Admin: 09/11/18 10:58 Dose: 500 units Hydromorphone HCl (Dilaudid) 0.5 mg IVPUSH ONETIME ONE Stop: 09/03/18 10:48 Last Admin: 09/03/18 11:00 Dose: 0.5 mg Hydromorphone HCl (Dilaudid) 0.5 mg IVPUSH ONETIME ONE Stop: 09/03/18 11:22 Last Admin: 09/03/18 11:25 Dose: 0.5 mg Hydromorphone HCl (Dilaudid) 0.5 mg IVPUSH ONETIME ONE Stop: 09/03/18 12:10 Last Admin: 09/03/18 12:12 Dose: 0.5 mg Hydromorphone HCl (Dilaudid) 0.5 mg IVPUSH ONETIME ONE Stop: 09/03/18 12:40 Last Admin: 09/03/18 12:44 Dose: 0.5 mg Hydromorphone HCl (Dilaudid) 1 mg IVPUSH ONETIME ONE Stop: 09/03/18 12:57 Last Admin: 09/03/18 13:00 Dose: 1 mg Hydromorphone HCl (Dilaudid [employer] 15 Mg In Ns 30 Ml) 0 mg IV ASDIRECTED PRN; Protocol 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 Last Admin: 09/09/18 05:52 Dose: 15 mg Sodium Chloride (Normal Saline) 1,000 mls @ 1,000 mls/hr IV .BOLUS ONE Stop: 09/03/18 12:17 Last Admin: 09/03/18 11:25 Dose: 1,000 mls/hr Piperacillin/Tazobactam/ (Dextrose 4.5 gm/ Premix) 100 mls @ 200 mls/hr IV ONETIME ONE Stop: 09/03/18 13:29 Last Admin: 09/03/18 13:04 Dose: 200 mls/hr Sodium Chloride (Normal Saline) 1,000 mls @ 500 mls/hr IV ASDIRECTED [facility] Last Admin: 09/03/18 13:00 Dose: 500 mls/hr Lactated Ringer's (Ringers, Lactated) 1,000 mls @ 125 mls/hr IV ASDIRECTED [facility] Last Admin: 09/03/18 16:07 Dose: 125 mls/hr Aztreonam 2 gm/ Sodium (Chloride) 100 mls @ 200 mls/hr IV NOW ONE Stop: 09/03/18 15:29 Last Admin: 09/03/18 14:56 Dose: 200 mls/hr Meropenem 500 mg/ Sodium (Chloride) 50 mls @ 100 mls/hr IV ONCALL ONE Stop: 09/03/18 17:29 Last Admin: 09/03/18 16:25 Dose: 100 mls/hr Piperacillin/Tazobactam/ (Dextrose 3.375 gm/ Premix) 50 mls @ 100 mls/hr IV Q6H [facility] Last Admin: 09/03/18 22:15 Dose: Not Given Sodium Chloride (Normal Saline) Confirm Administered Dose 500 mls @ as directed .ROUTE .STK-MED ONE Stop: 09/03/18 18:33 Aztreonam/Dextrose 1 gm/ (Premix) 50 mls @ 100 mls/hr IV Q8HR [facility] Meropenem 500 mg/ Sodium (Chloride) 50 mls @ 100 mls/hr IV Q8H [facility] Last Admin: 09/10/18 05:17 Dose: 100 mls/hr Sodium Chloride (Normal Saline) Confirm Administered Dose 50 mls @ as directed .ROUTE .STK-MED ONE Stop: 09/03/18 22:01 Last Admin: 09/03/18 22:21 Dose: Not Given Aztreonam/Dextrose 1 gm/ (Premix) 50 mls @ 100 mls/hr IV Q8H [facility] Last Admin: 09/04/18 07:30 Dose: Not Given Dextrose/Lactated Ringer's (Dextrose 5%-Lactated Ringers) 1,000 mls @ 100 mls/ hr IV ASDIRECTED PRN PRN Reason: Hypotension Dextrose/Lactated Ringer's (Dextrose 5%-Lactated Ringers) 1,000 mls @ 100 mls/ hr IV ASDIRECTED [facility] Last Admin: 09/05/18 02:13 Dose: 100 mls/hr Lactated Ringer's (Ringers, Lactated) 1,000 mls @ 100 mls/hr IV ASDIRECTED [facility] Last Admin: 09/04/18 04:20 Dose: 100 mls/hr Lactated Ringer's (Ringers, Lactated) 500 mls @ 500 mls/hr IV .BOLUS [facility] Last Admin: 09/04/18 01:10 Dose: 500 mls/hr Lactated Ringer's (Ringers, Lactated) 500 mls @ 500 mls/hr IV .BOLUS NAHED Last Admin: 09/04/18 03:13 Dose: 500 mls/hr Propofol (Diprivan 100 Ml) 100 mls @ 1.361 mls/hr IV TITRATE NAHED; Protocol Last Titration: 09/04/18 07:52 Dose: 14 mcg/kg/min, 3.81 mls/hr Propofol (Diprivan 100 Ml) Confirm Administered Dose 100 mls @ as directed .ROUTE .STK-MED ONE Stop: 09/04/18 03:45 Last Admin: 09/04/18 03:59 Dose: Not Given Lactated Ringer's (Ringers, Lactated) 500 mls @ 999 mls/hr IV .BOLUS NAHED Last Admin: 09/04/18 06:10 Dose: 999 mls/hr Aztreonam/Dextrose 1 gm/ (Premix) 50 mls @ 100 mls/hr IV Q8H NAHED Last Admin: 09/07/18 08:15 Dose: 100 mls/hr Lactated Ringer's (Ringers, Lactated) 500 mls @ 500 mls/hr IV ASDIRECTED [facility] Last Admin: 09/04/18 21:04 Dose: 500 mls/hr Lactated Ringer's (Ringers, Lactated) Confirm Administered Dose 1,000 mls @ as directed .ROUTE .STK-MED ONE Stop: 09/04/18 13:11 Lactated Ringer's (Ringers, Lactated) Confirm Administered Dose 1,000 mls @ as directed .ROUTE .STK-MED ONE Stop: 09/04/18 13:11 Sodium Chloride (Normal Saline) Confirm Administered Dose 10 mls @ as directed .ROUTE .STK-MED ONE Stop: 09/04/18 13:15 Magnesium Sulfate 2 gm/ Premix 50 mls @ 25 mls/hr IV Q6H NAHED Stop: 09/06/18 11:59 Last Admin: 09/06/18 10:17 Dose: 25 mls/hr Lactated Ringer's (Ringers, Lactated) 500 mls @ 500 mls/hr IV ASDIRECTED NAHED Stop: 09/04/18 17:46 Lactated Ringer's (Ringers, Lactated) 500 mls @ 500 mls/hr IV ONETIME ONE Stop: 09/04/18 19:29 Last Admin: 09/04/18 18:37 Dose: 500 mls/hr Lactated Ringer's (Ringers, Lactated) 500 mls @ 1,000 mls/hr IV ONETIME ONE Stop: 09/04/18 23:30 Last Admin: 09/04/18 23:18 Dose: 1,000 mls/hr Lactated Ringer's (Ringers, Lactated) 500 mls @ 1,000 mls/hr IV ONETIME ONE Stop: 09/05/18 01:44 Last Admin: 09/05/18 01:15 Dose: 1,000 mls/hr Lactated Ringer's (Ringers, Lactated) 1,000 mls @ 150 mls/hr IV ASDIRECTED [facility] Last Admin: 09/05/18 02:13 Dose: 150 mls/hr Lactated Ringer's (Ringers, Lactated) 500 mls @ 1,000 mls/hr IV ONETIME ONE Stop: 09/05/18 03:38 Last Admin: 09/05/18 03:15 Dose: 1,000 mls/hr Multivitamins/Minerals 10 ml/Chromium/Copper/Manganese/Seleni/Zn 1 ml/ Amino Ac/ Electrol/Dextrose/Calcium 2,011 mls @ 82 mls/hr IV .BY DURATION [facility] Stop: 09/05/18 13:25 Last Admin: 09/05/18 13:32 Dose: Not Given Amino Ac/Electrol/Dextrose/Calcium (Clinimix E 15) 2,000 mls @ 82 mls/hr IV .BY DURATION [facility] Stop: 09/05/18 13:25 Vancomycin HCl 1 gm/ Sodium (Chloride) 250 mls @ 167 mls/hr IV Q24H [facility] Last Admin: 09/05/18 12:34 Dose: 167 mls/hr Sodium Chloride (Normal Saline) 1,000 mls @ 50 mls/hr IV ASDIRECTED [facility] Last Admin: 09/05/18 12:51 Dose: 50 mls/hr Multivitamins/Minerals 10 ml/Chromium/Copper/Manganese/Seleni/Zn 1 ml/ Amino Ac/ Electrol/Dextrose/Calcium 2,011 mls @ 82 mls/hr IV .BY DURATION [facility] Stop: 09/08/18 13:20 Last Admin: 09/07/18 15:09 Dose: 82 mls/hr Amino Ac/Electrol/Dextrose/Calcium (Clinimix E 09/23) 2,000 mls @ 82 mls/hr IV .BY DURATION [facility] Stop: 09/08/18 13:20 Vancomycin HCl 1 gm/ Sodium (Chloride) 250 mls @ 167 mls/hr IV Q24H [facility] Last Admin: 09/06/18 12:00 Dose: 167 mls/hr Sodium Chloride (Normal Saline) 500 mls @ 500 mls/hr IV ASDIRECTED ONE Stop: 09/05/18 16:29 Last Admin: 09/05/18 15:40 Dose: 500 mls/hr Sodium Chloride (Normal Saline) 1,000 mls @ 100 mls/hr IV ASDIRECTED [facility] Last Admin: 09/07/18 07:31 Dose: 100 mls/hr Potassium Phosphate 20 mmole/ (Sodium Chloride) 106.6667 mls @ 35 mls/hr IV Q3H [facility] Stop: 09/07/18 17:29 Last Admin: 09/07/18 15:01 Dose: 35 mls/hr Albumin Human (Albumin 25%) 25 gm in 100 mls @ 25 mls/hr IV DAILY NAHED Stop: 09/09/18 12:59 Last Admin: 09/09/18 08:25 Dose: 25 mls/hr Albumin Human (Albumin 25%) 25 gm in 100 mls @ 25 mls/hr IV Q24H [facility] Stop: 09/09/18 17:59 Last Admin: 09/09/18 14:32 Dose: 25 mls/hr Aztreonam 1 gm/ Sodium (Chloride) 50 mls @ 100 mls/hr IV Q8H [facility] Last Admin: 09/08/18 09:41 Dose: 100 mls/hr Vancomycin HCl 1 gm/ Sodium (Chloride) 250 mls @ 167 mls/hr IV Q18H [facility] Last Admin: 09/09/18 18:42 Dose: 167 mls/hr Sodium Chloride (Normal Saline) 1,000 mls @ 999 mls/hr IV .BOLUS ONE Stop: 09/07/18 17:39 Last Admin: 09/07/18 17:26 Dose: 999 mls/hr Potassium Acetate 40 meq/ (Sodium Chloride) 120 mls @ 30 mls/hr IV ONETIME ONE Stop: 09/08/18 13:59 Last Admin: 09/08/18 09:44 Dose: 30 mls/hr Sodium Chloride (Normal Saline) 100 mls @ 3 mls/sec IV ASDIRECTED [facility] Stop: 09/08/18 15:00 Last Admin: 09/08/18 14:17 Dose: 3 mls/sec Azithromycin 500 mg/ Sodium (Chloride) 250 mls @ 250 mls/hr IV Q24H [facility] Last Admin: 09/09/18 15:27 Dose: 250 mls/hr Gentamicin Sulfate 228 mg/ (Sodium Chloride) 105.7 mls @ 100 mls/hr IV ONETIME ONE Stop: 09/08/18 17:03 Last Admin: 09/08/18 16:19 Dose: 100 mls/hr Potassium Phosphate 15 mmole/ (Sodium Chloride) 105 mls @ 55 mls/hr IV Q2H [facility] Stop: 09/09/18 12:55 Last Admin: 09/09/18 15:27 Dose: 55 mls/hr Gentamicin Sulfate 228 mg/ (Sodium Chloride) 105.7 mls @ 100 mls/hr IV Q36H [facility] Last Admin: 09/10/18 03:55 Dose: 100 mls/hr Sodium Chloride (Normal Saline) 500 mls @ 999 mls/hr IV .BOLUS ONE Stop: 09/09/18 16:34 Last Admin: 09/09/18 16:18 Dose: 999 mls/hr Sodium Chloride (Normal Saline) 500 mls @ 999 mls/hr IV .BOLUS ONE Stop: 09/09/18 17:35 Last Admin: 09/09/18 17:18 Dose: 999 mls/hr Sodium Chloride (Normal Saline) 1,000 mls @ 125 mls/hr IV ASDIRECTED [facility] Last Admin: 09/10/18 01:41 Dose: 125 mls/hr Lactated Ringer's (Ringers, Lactated) 1,000 mls @ 125 mls/hr IV ASDIRECTED [facility] Last Admin: 09/11/18 01:06 Dose: 125 mls/hr Gentamicin Sulfate 228 mg/ (Sodium Chloride) 55.7 mls @ 55 mls/hr IV Q36H [facility] Last Admin: 09/14/18 16:49 Dose: 55 mls/hr Azithromycin 500 mg/ Dextrose/ (Water) 250 mls @ 250 mls/hr IV Q24H [facility] Stop: 09/17/18 17:00 Last Admin: 09/14/18 15:42 Dose: 250 mls/hr Vancomycin HCl 1 gm/ Dextrose/ (Water) 250 mls @ 167 mls/hr IV Q24H [facility] Last Admin: 09/13/18 17:48 Dose: 167 mls/hr Fluconazole/Sodium Chloride (200 mg/ Premix) 100 mls @ 100 mls/hr IV Q24H [facility] Last Admin: 09/15/18 20:38 Dose: 100 mls/hr Magnesium Sulfate 2 gm/ Premix 50 mls @ 25 mls/hr IV Q6H [facility] Stop: 09/13/18 05:59 Last Admin: 09/13/18 03:31 Dose: 25 mls/hr Potassium Phosphate 22.5 mmole (/ Dextrose/Water) 107.5 mls @ 27 mls/hr IV Q4H [facility] Stop: 09/11/18 17:29 Last Admin: 09/11/18 14:45 Dose: 27 mls/hr Lactated Ringer's (Ringers, Lactated) 1,000 mls @ 75 mls/hr IV ASDIRECTED [facility] Last Admin: 09/13/18 22:27 Dose: 75 mls/hr Sodium Chloride (Normal Saline) Confirm Administered Dose 10 mls @ as directed .ROUTE .STK-MED ONE Stop: 09/11/18 10:41 Potassium Chloride 40 meq/ (Premix) 100 mls @ 25 mls/hr IV ONETIME ONE Stop: 09/13/18 12:59 Last Admin: 09/13/18 09:31 Dose: 25 mls/hr Potassium Chloride 40 meq/ (Premix) 100 mls @ 25 mls/hr IV ONETIME ONE Stop: 09/13/18 17:59 Last Admin: 09/13/18 13:11 Dose: 25 mls/hr Iopamidol (Isovue-300 (61%)) 100 ml IV . DIRECTED PRN PRN Reason: RADIOLOGY EXAM Stop: 09/09/18 11:03 Last Admin: 09/08/18 14:16 Dose: 100 ml Lidocaine HCl (Xylocaine 2% Viscous) Confirm Administered Dose 15 ml .ROUTE .STK -MED ONE Stop: 09/12/18 11:15 Lidocaine HCl (Xylocaine 4% Top Soln) Confirm Administered Dose 50 ml .ROUTE .STK-MED ONE Stop: 09/12/18 11:15 Lidocaine HCl (Xylocaine 4% Top Soln) Confirm Administered Dose 50 ml .ROUTE .STK-MED ONE Stop: 09/14/18 06:57 Last Admin: 09/14/18 07:20 Dose: 20 ml Lidocaine/Epinephrine (Xylocaine 1% With Epinephrine 1:100,000) Confirm Administered Dose 50 ml .ROUTE .STK-MED ONE Stop: 09/07/18 06:48 Last Admin: 09/07/18 10:54 Dose: 18 ml Lidocaine/Epinephrine (Xylocaine 1% With Epinephrine 1:100,000) Confirm Administered Dose 50 ml .ROUTE .STK-MED ONE Stop: 09/11/18 09:07 Last Admin: 09/11/18 10:49 Dose: 2 ml Lorazepam (Ativan) 0.5 mg IVPUSH Q4H PRN PRN Reason: Nausea/Vomiting Meropenem (Merrem) Confirm Administered Dose 1,000 mg .ROUTE .STK-MED ONE Stop: 09/03/18 17:54 Last Admin: 09/03/18 18:32 Dose: 3,500 mg Meropenem (Merrem) Confirm Administered Dose 1,000 mg .ROUTE .STK-MED ONE Stop: 09/03/18 18:04 Meropenem (Merrem) Confirm Administered Dose 2,000 mg .ROUTE .STK-MED ONE Stop: 09/03/18 18:18 Meropenem (Merrem) Confirm Administered Dose 500 mg .ROUTE .STK-MED ONE Stop: 09/07/18 06:48 Last Admin: 09/07/18 10:53 Dose: 500 mg Metoprolol Tartrate (Lopressor) 25 mg PO ONETIME ONE Stop: 09/03/18 10:41 Last Admin: 09/03/18 11:00 Dose: 25 mg Metoprolol Tartrate (Lopressor) 5 mg IVPUSH Q6H NAHED Last Admin: 09/08/18 09:25 Dose: 5 mg Metoprolol Tartrate (Lopressor) 2.5 mg IVPUSH Q6H NAHED Last Admin: 09/10/18 03:55 Dose: 2.5 mg Metoprolol Tartrate (Lopressor) Confirm Administered Dose 5 mg .ROUTE .STK-MED ONE Stop: 09/08/18 21:53 Last Admin: 09/08/18 22:19 Dose: Not Given Metoprolol Tartrate (Lopressor) 2.5 mg IVPUSH Q4H [facility] Last Admin: 09/11/18 21:25 Dose: Not Given Neostigmine Methylsulfate (Neostigmine) Confirm Administered Dose 5 mg .ROUTE .STK-MED ONE Stop: 09/03/18 14:41 Neostigmine Methylsulfate (Neostigmine) Confirm Administered Dose 5 mg .ROUTE .STK-MED ONE Stop: 09/04/18 09:47 Non-Formulary Medication (Total Parenteral Nutrition, Central) 0 ml IV ASDIRECTED [facility] Stop: 09/12/18 13:31 Non-Formulary Medication (Total Parenteral Nutrition, Central) [facility] Stop: 09/13/18 13:00 Ondansetron HCl (Zofran Odt) 4 mg PO Q6H PRN PRN Reason: Nausea able to take PO Ondansetron HCl (Zofran) 4 mg IV Q6H PRN PRN Reason: Nausea/Vomiting Ondansetron HCl (Zofran) Confirm Administered Dose 4 mg .ROUTE .STK-MED ONE Stop: 09/03/18 14:41 Ondansetron HCl (Zofran) Confirm Administered Dose 4 mg .ROUTE .STK-MED ONE Stop: 09/04/18 09:47 Pantoprazole Sodium (Protonix Iv) 40 mg IV Q12H [facility] Last Admin: 09/03/18 16:07 Dose: 40 mg Piperacillin Sod/Tazobactam Sod (Zosyn) 10.125 gm .XX ASDIRECTED [facility] Stop: 09/04/18 15:00 Last Admin: 09/04/18 14:04 Dose: 10.125 gm Propofol (Diprivan 20 Ml) Confirm Administered Dose 200 mg .ROUTE .STK-MED ONE Stop: 09/03/18 14:41 Propofol (Diprivan 20 Ml) Confirm Administered Dose 200 mg .ROUTE .STK-MED ONE Stop: 09/04/18 09:47 Propofol (Diprivan 20 Ml) Confirm Administered Dose 200 mg .ROUTE .STK-MED ONE Stop: 09/06/18 07:01 Rocuronium [place] (Zemuron) Confirm Administered Dose 50 mg .ROUTE .STK-MED ONE Stop: 09/03/18 14:41 Rocuronium [place] (Zemuron) Confirm Administered Dose 50 mg .ROUTE .STK-MED ONE Stop: 09/04/18 09:47 Succinylcholine Chloride (Quelicin) Confirm Administered Dose 200 mg .ROUTE .STK -MED ONE Stop: 09/03/18 14:41 Succinylcholine Chloride (Quelicin) Confirm Administered Dose 200 mg .ROUTE .STK -MED ONE Stop: 09/04/18 09:47 Succinylcholine Chloride (Quelicin) Confirm Administered Dose 200 mg .ROUTE .STK -MED ONE Stop: 09/06/18 07:01 - Exam General: Sedated, Lethargic Lungs: Normal Respiratory Effort, Decreased Breath Sounds Cardiovascular: Regular Rate, Regular Rhythm GI/Abdominal Exam: No Distention Extremities: Other (Edema of bilateral arms, Erythematous, pitting edema of bilateral thigh area, edema of bilateral feet ) Wound/Incisions: Dressing Dry and Intact - Problem List Review Problem List Initiated/Reviewed/Updated: Yes - Assessment Assessment:: 1. 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 Exploratory laparotomy with a. sigmoid colon resection with end colotomy plus Rosa procedure b. drainage of pericolonic abscess plus diffuse peritoneal cavity washout c. small bowel resection Date of procedure: 09/03/2018, Surgeon Christiano Estrada MD 3.Indication of central venous access 4. Diffuse feculent perforation with second look laparotomy showing: a. pelvic right subphrenic with fluid collection b. segment small bowel with increasing necrosis adjacent mesentery 5. Insertion Left subclavian triple-lumen catheter 6. Second look laparotomy with: a. drainage peritoneal inflammatory fluid collection b. drainage right subphrenic inflammatory fluid collection d. plus small bowel resection 7. Date of procedure: 09/04/2018, Surgeon, Christiano Estrada MD 8. Hypoalbuminemia 9. Ventilator dependence: appears close to be weaned from ventilator 10. SP Bronchoscopy. Bony Olson MD on 09/12/2018 11. Large volume mucoid pulmonary secretions, cleaned by bronchoscopy; Mucomyst started yesterday 12. Bronchial sputum culture: yeast isolated - Plan Plan:: 1. Continue current TPN content and rate 2. Administer Lasix 40 mg IV push every 12 hours to facilitate diuresis 3. Administer Potassium Chloride, 60 milliequivalents; minimize IV fluid via central line 4. AM labs: CBC, CMP, Mg, Phosphorous, BNP and ABG 5. Increase Fluconazole/Sodium Chloride to 400 mg for bronchial culture that showed yeast 6. Check a sputum culture tomorrow 7. Recheck as needed or in the AM 9. Weaning trial; if fails to be liberated from ventilation, may need to consider tracheostomy
[2018-09-16] MEDS: LORazepam 2 MG/ML SDV IVPUSH PRN (09:09)
--- NOTE | 2018-09-16 09:16 | PCM.PN ---
- General Info Date of Service: 09/16/18 Subjective Update: There were no acute events overnight. She has remained stable on the ventilator. No new culture results. Cultures are showing yeast and she is on fluconazole. Urine output has been good. Blood pressures have been stable. Weaning trial went better today and was terminated after about 1 hour because of tachypnea, tachycardia and hypertension. Hemoglobin improved today after transfusion with no evidence for active bleeding. - Review of Systems General: Reports: Other (intubated. Sedation is off but not interactive ). Denies: Fever - Patient Data Vitals - Most Recent: Last Vital Signs Temp 37.1 C 09/16/18 08:00 Pulse 100 09/16/18 08:00 Resp 18 09/16/18 07:00 BP 160/70 H 09/16/18 08:00 Pulse Ox 99 09/16/18 07:30 Weight - Most Recent: 78.471 kg I&O - Last 24 Hours: Intake & Output 09/15/18 09/16/18 09/16/18 22:59 06:59 14:59 Intake Total 1625 1404 Output Total 2475 2300 270 Balance -852 -896 -270 Lab Results Last 24 Hours: Laboratory Results - last 24 hr 09/14/18 09/16/18 09/16/18 Range/Units 06:45 04:20 04:20 WBC 12.4 H (4.5-11.0) K/uL RBC 3.18 L (3.30-5.50) M/uL Hgb 9.9 L (12.0-15.0) g/dL Hct 30.9 L (36.0-48.0) % MCV 97 (80-98) fL MCH 31 (27-31) pg MCHC 32 (32-36) % Plt Count 286 (150-400) K/uL Puncture Site Line ABG pH 7.499 H (7.350-7.450) ABG pCO2 37.9 (35.0-42.0) mmHg ABG pO2 83.9 (75.0-100.0) mmHg ABG HCO3 29.2 H (22.0-26.0) mmol/L ABG Total CO2 26.6 H (21.0-25.0) mmol/L ABG O2 Saturation 97.1 (95.0-98.0) % ABG O2 Content 13.4 L (15.0-23.0) %vol ABG Base Excess 6.0 mm/L ABG Hemoglobin 10.1 L (12.0-16.0) g/dL ABG Oxyhemoglobin 94.1 % ABG Carboxyhemoglobin 2.5 H (0.0-1.6) % ABG Methemoglobin 0.6 % O2 Delivery Device Ventilator Oxygen Flow Rate L Sodium (140-148) mmol/L Potassium (3.6-5.2) mmol/L Chloride (100-108) mmol/L Carbon Dioxide (21-32) mmol/L Anion Gap (5.0-14.0) mmol/L BUN (7-18) mg/dL Creatinine (0.6-1.0) mg/dL Est Cr Clr Drug Dosing mL/min Estimated GFR (MDRD) (>60) Glucose (74-106) mg/dL Calcium (8.5-10.1) mg/dL Phosphorus (2.5-4.9) mg/dL Magnesium (1.8-2.4) mg/dL Total Bilirubin (0.2-1.0) mg/dL AST (15-37) U/L ALT (12-78) U/L Alkaline Phosphatase (46-116) U/L NT-Pro-B Natriuret Pep (5-450) pg/mL Total Protein (6.4-8.2) g/dL Albumin (3.4-5.0) g/dL Globulin (2.3-3.5) g/dL Albumin/Globulin Ratio (1.2-2.2) Blood Type O POSITIVE Gel Antibody Screen Negative Crossmatch See Detail 09/16/18 Range/Units 05:00 WBC (4.5-11.0) K/uL RBC (3.30-5.50) M/uL Hgb (12.0-15.0) g/dL Hct (36.0-48.0) % MCV (80-98) fL MCH (27-31) pg MCHC (32-36) % Plt Count (150-400) K/uL Puncture Site ABG pH (7.350-7.450) ABG pCO2 (35.0-42.0) mmHg ABG pO2 (75.0-100.0) mmHg ABG HCO3 (22.0-26.0) mmol/L ABG Total CO2 (21.0-25.0) mmol/L ABG O2 Saturation (95.0-98.0) % ABG O2 Content (15.0-23.0) %vol ABG Base Excess mm/L ABG Hemoglobin (12.0-16.0) g/dL ABG Oxyhemoglobin % ABG Carboxyhemoglobin (0.0-1.6) % ABG Methemoglobin % O2 Delivery Device Oxygen Flow Rate L Sodium 140 (140-148) mmol/L Potassium 3.9 (3.6-5.2) mmol/L Chloride 102 (100-108) mmol/L Carbon Dioxide 31 (21-32) mmol/L Anion Gap 7.4 (5.0-14.0) mmol/L BUN 51 H (7-18) mg/dL Creatinine 0.8 (0.6-1.0) mg/dL Est Cr Clr Drug Dosing 41.50 mL/min Estimated GFR (MDRD) > 60 (>60) Glucose 112 H (74-106) mg/dL Calcium 9.0 (8.5-10.1) mg/dL Phosphorus 5.2 H (2.5-4.9) mg/dL Magnesium 1.8 (1.8-2.4) mg/dL Total Bilirubin 1.1 H (0.2-1.0) mg/dL AST 53 H (15-37) U/L ALT 79 H (12-78) U/L Alkaline Phosphatase 235 H (46-116) U/L NT-Pro-B Natriuret Pep 5711 H (5-450) pg/mL Total Protein 5.4 L (6.4-8.2) g/dL Albumin 2.4 L (3.4-5.0) g/dL Globulin 3.0 (2.3-3.5) g/dL Albumin/Globulin Ratio 0.8 L (1.2-2.2) Blood Type Gel Antibody Screen Crossmatch Joseph Results Last 24 Hours: Microbiology 09/14/18 07:40 Gram Stain - Final Bronchial Aspirate Respiratory Culture - Final Yeast Isolated 09/13/18 10:20 Gram Stain - Final Other - Bronchial Wound Culture - Final Yeast Isolated Anaerobic Culture - Final NO GROWTH AFTER 3 DAYS Med Orders - Current: Current Medications Acetylcysteine (Mucomyst 20%) 200 mg NEB QIDRT NAHED Last Admin: 09/16/18 07:30 Dose: 200 mg Albuterol (Proventil Neb Soln) 2.5 mg NEB Q4H PRN PRN Reason: Dyspnea Albuterol/Ipratropium (Duoneb 3.0-0.5 Mg/3 Ml) 3 ml NEB QIDRT [facility] Last Admin: 09/16/18 07:30 Dose: 3 ml Furosemide (Lasix) 40 mg IV BID NAHED Stop: 09/16/18 21:01 Hydralazine HCl (Apresoline) 5 mg IVPUSH Q4H PRN PRN Reason: Hypertension Last Admin: 09/10/18 15:44 Dose: 5 mg Hydromorphone HCl (Dilaudid) 0.5 mg IVPUSH Q2H PRN PRN Reason: Pain Last Admin: 09/15/18 23:30 Dose: 0.5 mg Hydroxyzine HCl (Vistaril) 50 mg IM Q4H PRN PRN Reason: Pain Heparin Sodium (Porcine) 5,000 (units/ Sodium Chloride) 501 mls @ 5 mls/hr IV ASDIRECTED [facility] Last Admin: 09/13/18 14:03 Dose: 5 mls/hr Heparin Sodium (Porcine) 5,000 (units/ Sodium Chloride) 501 mls @ 5 mls/hr IV ASDIRECTED [facility] Last Admin: 09/13/18 13:59 Dose: 5 mls/hr Propofol (Diprivan 100 Ml) 100 mls @ 1.361 mls/hr IV TITRATE [facility]; Protocol Last Titration: 09/16/18 05:51 Dose: 45 mcg/kg/min, 12.247 mls/hr Sodium Chloride (Normal Saline) 1,000 mls @ 0 mls/hr IV ASDIRECTED [facility] Last Admin: 09/15/18 16:07 Dose: 12.5 mls/hr Multivitamins/Minerals 10 ml/Chromium/Copper/Manganese/Seleni/Zn 1 ml/ Amino Ac/ Electrol/Dextrose/Calcium 1,011 mls @ 62 mls/hr IV .BY DURATION [facility] Last Admin: 09/15/18 08:40 Dose: 62 mls/hr Amino Ac/Electrol/Dextrose/Calcium (Clinimix E 09/28) 1,000 mls @ 62 mls/hr IV .BY DURATION [facility] Last Admin: 09/16/18 01:02 Dose: 62 mls/hr Meropenem 500 mg/ Sodium (Chloride) 25 mls @ 50 mls/hr IV Q8H [facility] Last Admin: 09/16/18 05:45 Dose: 50 mls/hr Albumin Human (Albumin 25%) 25 gm in 100 mls @ 25 mls/hr IV Q24H [facility] Stop: 09/16/18 11:59 Last Admin: 09/16/18 09:02 Dose: 25 mls/hr Albumin Human (Albumin 25%) 25 gm in 100 mls @ 25 mls/hr IV Q24H [facility] Stop: 09/16/18 15:59 Last Admin: 09/15/18 12:48 Dose: 25 mls/hr Lactated Ringer's (Ringers, Lactated) 1,000 mls @ 25 mls/hr IV ASDIRECTED [facility] Last Admin: 09/15/18 16:06 Dose: 25 mls/hr Fluconazole/Sodium Chloride (400 mg/ Premix) 200 mls @ 100 mls/hr IV Q24H [facility] Potassium Chloride 40 meq/ (Premix) 100 mls @ 25 mls/hr IV ONETIME ONE Stop: 09/16/18 11:59 Last Admin: 09/16/18 08:02 Dose: 25 mls/hr Potassium Chloride 20 meq/ (Premix) 100 mls @ 50 mls/hr IV ONETIME ONE Stop: 09/16/18 13:59 Lorazepam (Ativan) 0.5 mg IVPUSH Q3H PRN PRN Reason: AGITATION Last Admin: 09/05/18 03:50 Dose: 0.25 mg Metoprolol Tartrate (Lopressor) 2.5 mg IVPUSH Q4H PRN PRN Reason: Hypertension Last Admin: 09/12/18 02:33 Dose: 2.5 mg Naloxone HCl (Narcan) 0.1 mg IV ASDIRECTED PRN PRN Reason: decreased respiratory rate Pantoprazole Sodium (Protonix Iv) 40 mg IV Q24H [facility] Last Admin: 09/15/18 21:51 Dose: 40 mg Discontinued Medications Acetaminophen (Tylenol) 650 mg PO Q4H PRN PRN Reason: Pain (Mild 1-3)/fever Acetaminophen (Tylenol) 650 mg RECTAL Q4H PRN PRN Reason: Mild pain/fever Albuterol (Proventil Neb Soln) 2.5 mg NEB Q4H PRN PRN Reason: Shortness Of Breath/wheezing Albuterol/Ipratropium (Duoneb 3.0-0.5 Mg/3 Ml) 3 ml INH PREPRO ONE Stop: 09/03/18 17:01 Last Admin: 09/03/18 16:25 Dose: 3 ml Albuterol/Ipratropium (Duoneb 3.0-0.5 Mg/3 Ml) 3 ml NEB QID NAHED Last Admin: 09/13/18 21:11 Dose: 3 ml Aztreonam (Azactam) Confirm Administered Dose 1 gm .ROUTE .STK-MED ONE Stop: 09/03/18 21:44 Last Admin: 09/03/18 22:15 Dose: Not Given Benazepril HCl (Lotensin) 40 mg PO ONETIME ONE Stop: 09/03/18 10:41 Last Admin: 09/03/18 11:00 Dose: 40 mg Bupivacaine HCl (Marcaine 0.5%) Confirm Administered Dose 50 ml .ROUTE .STK-MED ONE Stop: 09/07/18 06:48 Last Admin: 09/07/18 10:53 Dose: 18 ml Bupivacaine HCl (Marcaine 0.5%) Confirm Administered Dose 50 ml .ROUTE .STK-MED ONE Stop: 09/11/18 09:07 Last Admin: 09/11/18 10:49 Dose: 2 ml Ropivacaine 22 ml/Dexamethasone 8 mg/Epinephrine HCl 0.4 mg/ Sodium Chloride 55.6 ml 0 ml NERVRT ASDIRECTED [facility] Ropivacaine 22 ml/Dexamethasone 8 mg/Epinephrine HCl 0.4 mg/ Sodium Chloride 55.6 ml 0 ml NERVRT ASDIRECTED [facility] Last Admin: 09/04/18 14:03 Dose: 80 syringe Ropivacaine 22 ml/Dexamethasone 8 mg/Epinephrine HCl 0.4 mg/ Sodium Chloride 55.6 ml 0 ml NERVRT ASDIRECTED [facility] Last Admin: 09/07/18 11:07 Dose: 80 syringe Dexamethasone (Dexamethasone) Confirm Administered Dose 4 mg .ROUTE .STK-MED ONE Stop: 09/03/18 14:41 Dexamethasone (Dexamethasone) Confirm Administered Dose 4 mg .ROUTE .STK-MED ONE Stop: 09/04/18 09:47 Fentanyl (Sublimaze) 25 mcg IVPUSH ONETIME ONE Stop: 09/03/18 13:57 Last Admin: 09/03/18 14:16 Dose: 25 mcg Fentanyl (Sublimaze) 25 mcg IVPUSH Q2H PRN PRN Reason: Pain (severe 7-10) Fentanyl (Sublimaze) Confirm Administered Dose 250 mcg .ROUTE .STK-MED ONE Stop: 09/03/18 14:41 Fentanyl (Sublimaze) Confirm Administered Dose 250 mcg .ROUTE .STK-MED ONE Stop: 09/04/18 09:46 Fentanyl (Sublimaze) Confirm Administered Dose 250 mcg .ROUTE .STK-MED ONE Stop: 09/04/18 13:57 Fentanyl (Sublimaze) Confirm Administered Dose 100 mcg .ROUTE .STK-MED ONE Stop: 09/11/18 10:36 Furosemide (Lasix) 20 mg IVPUSH ONETIME ONE Stop: 09/04/18 15:10 Last Admin: 09/04/18 15:18 Dose: 20 mg Furosemide (Lasix) 40 mg IV ONETIME ONE Stop: 09/06/18 08:16 Last Admin: 09/06/18 08:26 Dose: 40 mg Furosemide (Lasix) 20 mg IV Q12H [facility] Stop: 09/07/18 20:01 Last Admin: 09/07/18 20:10 Dose: 20 mg Furosemide (Lasix) 20 mg IVPUSH Q12H [facility] Stop: 09/08/18 19:01 Last Admin: 09/08/18 19:50 Dose: 20 mg Furosemide (Lasix) 20 mg IVPUSH ONETIME ONE Stop: 09/09/18 07:01 Last Admin: 09/09/18 08:14 Dose: 20 mg Furosemide (Lasix) 20 mg IVPUSH ONETIME ONE Stop: 09/09/18 11:01 Last Admin: 09/09/18 12:38 Dose: 20 mg Furosemide (Lasix) 20 mg IVPUSH ONETIME ONE Stop: 09/09/18 20:01 Furosemide (Lasix) 20 mg IV Q8H [facility] Stop: 09/11/18 00:31 Last Admin: 09/10/18 23:50 Dose: 20 mg Furosemide (Lasix) 20 mg IV Q8H [facility] Stop: 09/12/18 00:01 Last Admin: 09/11/18 23:34 Dose: 20 mg Furosemide (Lasix) 20 mg IVPUSH Q8H [facility] Stop: 09/13/18 02:31 Last Admin: 09/13/18 02:39 Dose: 20 mg Furosemide (Lasix) 20 mg IVPUSH Q8H [facility] Stop: 09/14/18 02:31 Last Admin: 09/14/18 02:29 Dose: 20 mg Furosemide (Lasix) 40 mg IVPUSH ONETIME ONE Stop: 09/14/18 10:01 Last Admin: 09/14/18 13:28 Dose: 40 mg Furosemide (Lasix) 20 mg IVPUSH BID [facility] Furosemide (Lasix) 20 mg IVPUSH ONETIME ONE Stop: 09/15/18 06:34 Last Admin: 09/15/18 06:48 Dose: 20 mg Furosemide (Lasix) 40 mg IVPUSH Q8H [facility] Stop: 09/15/18 20:31 Last Admin: 09/15/18 20:39 Dose: 40 mg Gentamicin Sulfate (Gentamicin) 1 mg IV .Pharmacy to Dose [facility] Stop: 09/08/18 14:31 Glycopyrrolate (Robinul) Confirm Administered Dose 1 mg .ROUTE .STK-MED ONE Stop: 09/03/18 14:41 Glycopyrrolate (Robinul) Confirm Administered Dose 1 mg .ROUTE .STK-MED ONE Stop: 09/04/18 09:47 Heparin Sodium (Porcine) (Heparin Sodium) Confirm Administered Dose 5,000 units .ROUTE .STK-MED ONE Stop: 09/03/18 18:32 Heparin Sodium (Porcine) (Heparin Lock Flush 100 Units/Ml) Confirm Administered Dose 500 units .ROUTE .STK-MED ONE Stop: 09/04/18 13:14 Heparin Sodium (Porcine) (Heparin Lock Flush 100 Units/Ml) Confirm Administered Dose 1,000 units .ROUTE .STK-MED ONE Stop: 09/11/18 09:07 Last Admin: 09/11/18 10:58 Dose: 1,000 units Heparin Sodium (Porcine) (Heparin Lock Flush 100 Units/Ml) Confirm Administered Dose 500 units .ROUTE .STK-MED ONE Stop: 09/11/18 10:44 Last Admin: 09/11/18 10:58 Dose: 500 units Hydromorphone HCl (Dilaudid) 0.5 mg IVPUSH ONETIME ONE Stop: 09/03/18 10:48 Last Admin: 09/03/18 11:00 Dose: 0.5 mg Hydromorphone HCl (Dilaudid) 0.5 mg IVPUSH ONETIME ONE Stop: 09/03/18 11:22 Last Admin: 09/03/18 11:25 Dose: 0.5 mg Hydromorphone HCl (Dilaudid) 0.5 mg IVPUSH ONETIME ONE Stop: 09/03/18 12:10 Last Admin: 09/03/18 12:12 Dose: 0.5 mg Hydromorphone HCl (Dilaudid) 0.5 mg IVPUSH ONETIME ONE Stop: 09/03/18 12:40 Last Admin: 09/03/18 12:44 Dose: 0.5 mg Hydromorphone HCl (Dilaudid) 1 mg IVPUSH ONETIME ONE Stop: 09/03/18 12:57 Last Admin: 09/03/18 13:00 Dose: 1 mg Hydromorphone HCl (Dilaudid Draw Frame Tender 15 Mg In Ns 30 Ml) 0 mg IV ASDIRECTED PRN; Protocol PRN Reason: 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 Last Admin: 09/09/18 05:52 Dose: 15 mg Sodium Chloride (Normal Saline) 1,000 mls @ 1,000 mls/hr IV .BOLUS ONE Stop: 09/03/18 12:17 Last Admin: 09/03/18 11:25 Dose: 1,000 mls/hr Piperacillin/Tazobactam/ (Dextrose 4.5 gm/ Premix) 100 mls @ 200 mls/hr IV ONETIME ONE Stop: 09/03/18 13:29 Last Admin: 09/03/18 13:04 Dose: 200 mls/hr Sodium Chloride (Normal Saline) 1,000 mls @ 500 mls/hr IV ASDIRECTED NAHED Last Admin: 09/03/18 13:00 Dose: 500 mls/hr Lactated Ringer's (Ringers, Lactated) 1,000 mls @ 125 mls/hr IV ASDIRECTED NAHED Last Admin: 09/03/18 16:07 Dose: 125 mls/hr Aztreonam 2 gm/ Sodium (Chloride) 100 mls @ 200 mls/hr IV NOW ONE Stop: 09/03/18 15:29 Last Admin: 09/03/18 14:56 Dose: 200 mls/hr Meropenem 500 mg/ Sodium (Chloride) 50 mls @ 100 mls/hr IV ONCALL ONE Stop: 09/03/18 17:29 Last Admin: 09/03/18 16:25 Dose: 100 mls/hr Piperacillin/Tazobactam/ (Dextrose 3.375 gm/ Premix) 50 mls @ 100 mls/hr IV Q6H [facility] Last Admin: 09/03/18 22:15 Dose: Not Given Sodium Chloride (Normal Saline) Confirm Administered Dose 500 mls @ as directed .ROUTE .STK-MED ONE Stop: 09/03/18 18:33 Aztreonam/Dextrose 1 gm/ (Premix) 50 mls @ 100 mls/hr IV Q8HR NAHED Meropenem 500 mg/ Sodium (Chloride) 50 mls @ 100 mls/hr IV Q8H [facility] Last Admin: 09/10/18 05:17 Dose: 100 mls/hr Sodium Chloride (Normal Saline) Confirm Administered Dose 50 mls @ as directed .ROUTE .STK-MED ONE Stop: 09/03/18 22:01 Last Admin: 09/03/18 22:21 Dose: Not Given Aztreonam/Dextrose 1 gm/ (Premix) 50 mls @ 100 mls/hr IV Q8H [facility] Last Admin: 09/04/18 07:30 Dose: Not Given Dextrose/Lactated Ringer's (Dextrose 5%-Lactated Ringers) 1,000 mls @ 100 mls/ hr IV ASDIRECTED PRN PRN Reason: Hypotension Dextrose/Lactated Ringer's (Dextrose 5%-Lactated Ringers) 1,000 mls @ 100 mls/ hr IV ASDIRECTED [facility] Last Admin: 09/05/18 02:13 Dose: 100 mls/hr Lactated Ringer's (Ringers, Lactated) 1,000 mls @ 100 mls/hr IV ASDIRECTED [facility] Last Admin: 09/04/18 04:20 Dose: 100 mls/hr Lactated Ringer's (Ringers, Lactated) 500 mls @ 500 mls/hr IV .BOLUS [facility] Last Admin: 09/04/18 01:10 Dose: 500 mls/hr Lactated Ringer's (Ringers, Lactated) 500 mls @ 500 mls/hr IV .BOLUS NAHED Last Admin: 09/04/18 03:13 Dose: 500 mls/hr Propofol (Diprivan 100 Ml) 100 mls @ 1.361 mls/hr IV TITRATE NAHED; Protocol Last Titration: 09/04/18 07:52 Dose: 14 mcg/kg/min, 3.81 mls/hr Propofol (Diprivan 100 Ml) Confirm Administered Dose 100 mls @ as directed .ROUTE .[facility] ONE Stop: 09/04/18 03:45 Last Admin: 09/04/18 03:59 Dose: Not Given Lactated Ringer's (Ringers, Lactated) 500 mls @ 999 mls/hr IV .BOLUS NAHDE Last Admin: 09/04/18 06:10 Dose: 999 mls/hr Aztreonam/Dextrose 1 gm/ (Premix) 50 mls @ 100 mls/hr IV Q8H NAHED Last Admin: 09/07/18 08:15 Dose: 100 mls/hr Lactated Ringer's (Ringers, Lactated) 500 mls @ 500 mls/hr IV ASDIRECTED [facility] Last Admin: 09/04/18 21:04 Dose: 500 mls/hr Lactated Ringer's (Ringers, Lactated) Confirm Administered Dose 1,000 mls @ as directed .ROUTE .[facility] ONE Stop: 09/04/18 13:11 Lactated Ringer's (Ringers, Lactated) Confirm Administered Dose 1,000 mls @ as directed .ROUTE .[facility] ONE Stop: 09/04/18 13:11 Sodium Chloride (Normal Saline) Confirm Administered Dose 10 mls @ as directed .ROUTE .[facility] ONE Stop: 09/04/18 13:15 Magnesium Sulfate 2 gm/ Premix 50 mls @ 25 mls/hr IV Q6H NAHED Stop: 09/06/18 11:59 Last Admin: 09/06/18 10:17 Dose: 25 mls/hr Lactated Ringer's (Ringers, Lactated) 500 mls @ 500 mls/hr IV ASDIRECTED NAHED Stop: 09/04/18 17:46 Lactated Ringer's (Ringers, Lactated) 500 mls @ 500 mls/hr IV ONETIME ONE Stop: 09/04/18 19:29 Last Admin: 09/04/18 18:37 Dose: 500 mls/hr Lactated Ringer's (Ringers, Lactated) 500 mls @ 1,000 mls/hr IV ONETIME ONE Stop: 09/04/18 23:30 Last Admin: 09/04/18 23:18 Dose: 1,000 mls/hr Lactated Ringer's (Ringers, Lactated) 500 mls @ 1,000 mls/hr IV ONETIME ONE Stop: 09/05/18 01:44 Last Admin: 09/05/18 01:15 Dose: 1,000 mls/hr Lactated Ringer's (Ringers, Lactated) 1,000 mls @ 150 mls/hr IV ASDIRECTED [facility] Last Admin: 09/05/18 02:13 Dose: 150 mls/hr Lactated Ringer's (Ringers, Lactated) 500 mls @ 1,000 mls/hr IV ONETIME ONE Stop: 09/05/18 03:38 Last Admin: 09/05/18 03:15 Dose: 1,000 mls/hr Multivitamins/Minerals 10 ml/Chromium/Copper/Manganese/Seleni/Zn 1 ml/ Amino Ac/ Electrol/Dextrose/Calcium 2,011 mls @ 82 mls/hr IV .BY DURATION [facility] Stop: 09/05/18 13:25 Last Admin: 09/05/18 13:32 Dose: Not Given Amino Ac/Electrol/Dextrose/Calcium (Clinimix E 09/23) 2,000 mls @ 82 mls/hr IV .BY DURATION [facility] Stop: 09/05/18 13:25 Vancomycin HCl 1 gm/ Sodium (Chloride) 250 mls @ 167 mls/hr IV Q24H [facility] Last Admin: 09/05/18 12:34 Dose: 167 mls/hr Sodium Chloride (Normal Saline) 1,000 mls @ 50 mls/hr IV ASDIRECTED [facility] Last Admin: 09/05/18 12:51 Dose: 50 mls/hr Multivitamins/Minerals 10 ml/Chromium/Copper/Manganese/Seleni/Zn 1 ml/ Amino Ac/ Electrol/Dextrose/Calcium 2,011 mls @ 82 mls/hr IV .BY DURATION [facility] Stop: 09/08/18 13:20 Last Admin: 09/07/18 15:09 Dose: 82 mls/hr Amino Ac/Electrol/Dextrose/Calcium (Clinimix E /15) 2,000 mls @ 82 mls/hr IV .BY DURATION [facility] Stop: 09/08/18 13:20 Vancomycin HCl 1 gm/ Sodium (Chloride) 250 mls @ 167 mls/hr IV Q24H [facility] Last Admin: 09/06/18 12:00 Dose: 167 mls/hr Sodium Chloride (Normal Saline) 500 mls @ 500 mls/hr IV ASDIRECTED ONE Stop: 09/05/18 16:29 Last Admin: 09/05/18 15:40 Dose: 500 mls/hr Sodium Chloride (Normal Saline) 1,000 mls @ 100 mls/hr IV ASDIRECTED [facility] Last Admin: 09/07/18 07:31 Dose: 100 mls/hr Potassium Phosphate 20 mmole/ (Sodium Chloride) 106.6667 mls @ 35 mls/hr IV Q3H [facility] Stop: 09/07/18 17:29 Last Admin: 09/07/18 15:01 Dose: 35 mls/hr Albumin Human (Albumin 25%) 25 gm in 100 mls @ 25 mls/hr IV DAILY NAHED Stop: 09/09/18 12:59 Last Admin: 09/09/18 08:25 Dose: 25 mls/hr Albumin Human (Albumin 25%) 25 gm in 100 mls @ 25 mls/hr IV Q24H [facility] Stop: 09/09/18 17:59 Last Admin: 09/09/18 14:32 Dose: 25 mls/hr Aztreonam 1 gm/ Sodium (Chloride) 50 mls @ 100 mls/hr IV Q8H [facility] Last Admin: 09/08/18 09:41 Dose: 100 mls/hr Vancomycin HCl 1 gm/ Sodium (Chloride) 250 mls @ 167 mls/hr IV Q18H [facility] Last Admin: 09/09/18 18:42 Dose: 167 mls/hr Sodium Chloride (Normal Saline) 1,000 mls @ 999 mls/hr IV .BOLUS ONE Stop: 09/07/18 17:39 Last Admin: 09/07/18 17:26 Dose: 999 mls/hr Potassium Acetate 40 meq/ (Sodium Chloride) 120 mls @ 30 mls/hr IV ONETIME ONE Stop: 09/08/18 13:59 Last Admin: 09/08/18 09:44 Dose: 30 mls/hr Sodium Chloride (Normal Saline) 100 mls @ 3 mls/sec IV ASDIRECTED [facility] Stop: 09/08/18 15:00 Last Admin: 09/08/18 14:17 Dose: 3 mls/sec Azithromycin 500 mg/ Sodium (Chloride) 250 mls @ 250 mls/hr IV Q24H [facility] Last Admin: 09/09/18 15:27 Dose: 250 mls/hr Gentamicin Sulfate 228 mg/ (Sodium Chloride) 105.7 mls @ 100 mls/hr IV ONETIME ONE Stop: 09/08/18 17:03 Last Admin: 09/08/18 16:19 Dose: 100 mls/hr Potassium Phosphate 15 mmole/ (Sodium Chloride) 105 mls @ 55 mls/hr IV Q2H [facility] Stop: 09/09/18 12:55 Last Admin: 09/09/18 15:27 Dose: 55 mls/hr Gentamicin Sulfate 228 mg/ (Sodium Chloride) 105.7 mls @ 100 mls/hr IV Q36H [facility] Last Admin: 09/10/18 03:55 Dose: 100 mls/hr Sodium Chloride (Normal Saline) 500 mls @ 999 mls/hr IV .BOLUS ONE Stop: 09/09/18 16:34 Last Admin: 09/09/18 16:18 Dose: 999 mls/hr Sodium Chloride (Normal Saline) 500 mls @ 999 mls/hr IV .BOLUS ONE Stop: 09/09/18 17:35 Last Admin: 09/09/18 17:18 Dose: 999 mls/hr Sodium Chloride (Normal Saline) 1,000 mls @ 125 mls/hr IV ASDIRECTED [facility] Last Admin: 09/10/18 01:41 Dose: 125 mls/hr Lactated Ringer's (Ringers, Lactated) 1,000 mls @ 125 mls/hr IV ASDIRECTED [facility] Last Admin: 09/11/18 01:06 Dose: 125 mls/hr Gentamicin Sulfate 228 mg/ (Sodium Chloride) 55.7 mls @ 55 mls/hr IV Q36H [facility] Last Admin: 09/14/18 16:49 Dose: 55 mls/hr Azithromycin 500 mg/ Dextrose/ (Water) 250 mls @ 250 mls/hr IV Q24H [facility] Stop: 09/17/18 17:00 Last Admin: 09/14/18 15:42 Dose: 250 mls/hr Vancomycin HCl 1 gm/ Dextrose/ (Water) 250 mls @ 167 mls/hr IV Q24H [facility] Last Admin: 09/13/18 17:48 Dose: 167 mls/hr Fluconazole/Sodium Chloride (200 mg/ Premix) 100 mls @ 100 mls/hr IV Q24H [facility] Last Admin: 09/15/18 20:38 Dose: 100 mls/hr Magnesium Sulfate 2 gm/ Premix 50 mls @ 25 mls/hr IV Q6H [facility] Stop: 09/13/18 05:59 Last Admin: 09/13/18 03:31 Dose: 25 mls/hr Potassium Phosphate 22.5 mmole (/ Dextrose/Water) 107.5 mls @ 27 mls/hr IV Q4H [facility] Stop: 09/11/18 17:29 Last Admin: 09/11/18 14:45 Dose: 27 mls/hr Lactated Ringer's (Ringers, Lactated) 1,000 mls @ 75 mls/hr IV ASDIRECTED [facility] Last Admin: 09/13/18 22:27 Dose: 75 mls/hr Sodium Chloride (Normal Saline) Confirm Administered Dose 10 mls @ as directed .ROUTE .STK-MED ONE Stop: 09/11/18 10:41 Potassium Chloride 40 meq/ (Premix) 100 mls @ 25 mls/hr IV ONETIME ONE Stop: 09/13/18 12:59 Last Admin: 09/13/18 09:31 Dose: 25 mls/hr Potassium Chloride 40 meq/ (Premix) 100 mls @ 25 mls/hr IV ONETIME ONE Stop: 09/13/18 17:59 Last Admin: 09/13/18 13:11 Dose: 25 mls/hr Iopamidol (Isovue-300 (61%)) 100 ml IV . DIRECTED PRN PRN Reason: RADIOLOGY EXAM Stop: 09/09/18 11:03 Last Admin: 09/08/18 14:16 Dose: 100 ml Lidocaine HCl (Xylocaine 2% Viscous) Confirm Administered Dose 15 ml .ROUTE .STK -MED ONE Stop: 09/12/18 11:15 Lidocaine HCl (Xylocaine 4% Top Soln) Confirm Administered Dose 50 ml .ROUTE .STK-MED ONE Stop: 09/12/18 11:15 Lidocaine HCl (Xylocaine 4% Top Soln) Confirm Administered Dose 50 ml .ROUTE .STK-MED ONE Stop: 09/14/18 06:57 Last Admin: 09/14/18 07:20 Dose: 20 ml Lidocaine/Epinephrine (Xylocaine 1% With Epinephrine 1:100,000) Confirm Administered Dose 50 ml .ROUTE .STK-MED ONE Stop: 09/07/18 06:48 Last Admin: 09/07/18 10:54 Dose: 18 ml Lidocaine/Epinephrine (Xylocaine 1% With Epinephrine 1:100,000) Confirm Administered Dose 50 ml .ROUTE .STK-MED ONE Stop: 09/11/18 09:07 Last Admin: 09/11/18 10:49 Dose: 2 ml Lorazepam (Ativan) 0.5 mg IVPUSH Q4H PRN PRN Reason: Nausea/Vomiting Meropenem (Merrem) Confirm Administered Dose 1,000 mg .ROUTE .STK-MED ONE Stop: 09/03/18 17:54 Last Admin: 09/03/18 18:32 Dose: 3,500 mg Meropenem (Merrem) Confirm Administered Dose 1,000 mg .ROUTE .STK-MED ONE Stop: 09/03/18 18:04 Meropenem (Merrem) Confirm Administered Dose 2,000 mg .ROUTE .STK-MED ONE Stop: 09/03/18 18:18 Meropenem (Merrem) Confirm Administered Dose 500 mg .ROUTE .STK-MED ONE Stop: 09/07/18 06:48 Last Admin: 09/07/18 10:53 Dose: 500 mg Metoprolol Tartrate (Lopressor) 25 mg PO ONETIME ONE Stop: 09/03/18 10:41 Last Admin: 09/03/18 11:00 Dose: 25 mg Metoprolol Tartrate (Lopressor) 5 mg IVPUSH Q6H NAHED Last Admin: 09/08/18 09:25 Dose: 5 mg Metoprolol Tartrate (Lopressor) 2.5 mg IVPUSH Q6H NAHED Last Admin: 09/10/18 03:55 Dose: 2.5 mg Metoprolol Tartrate (Lopressor) Confirm Administered Dose 5 mg .ROUTE .STK-MED ONE Stop: 09/08/18 21:53 Last Admin: 09/08/18 22:19 Dose: Not Given Metoprolol Tartrate (Lopressor) 2.5 mg IVPUSH Q4H [facility] Last Admin: 09/11/18 21:25 Dose: Not Given Neostigmine Methylsulfate (Neostigmine) Confirm Administered Dose 5 mg .ROUTE .STK-MED ONE Stop: 09/03/18 14:41 Neostigmine Methylsulfate (Neostigmine) Confirm Administered Dose 5 mg .ROUTE .STK-MED ONE Stop: 09/04/18 09:47 Non-Formulary Medication (Total Parenteral Nutrition, Central) 0 ml IV ASDIRECTED [facility] Stop: 09/12/18 13:31 Non-Formulary Medication (Total Parenteral Nutrition, Central) [facility] Stop: 09/13/18 13:00 Ondansetron HCl (Zofran Odt) 4 mg PO Q6H PRN PRN Reason: Nausea able to take PO Ondansetron HCl (Zofran) 4 mg IV Q6H PRN PRN Reason: Nausea/Vomiting Ondansetron HCl (Zofran) Confirm Administered Dose 4 mg .ROUTE .STK-MED ONE Stop: 09/03/18 14:41 Ondansetron HCl (Zofran) Confirm Administered Dose 4 mg .ROUTE .STK-MED ONE Stop: 09/04/18 09:47 Pantoprazole Sodium (Protonix Iv) 40 mg IV Q12H [facility] Last Admin: 09/03/18 16:07 Dose: 40 mg Piperacillin Sod/Tazobactam Sod (Zosyn) 10.125 gm .XX ASDIRECTED [facility] Stop: 09/04/18 15:00 Last Admin: 09/04/18 14:04 Dose: 10.125 gm Propofol (Diprivan 20 Ml) Confirm Administered Dose 200 mg .ROUTE .STK-MED ONE Stop: 09/03/18 14:41 Propofol (Diprivan 20 Ml) Confirm Administered Dose 200 mg .ROUTE .STK-MED ONE Stop: 09/04/18 09:47 Propofol (Diprivan 20 Ml) Confirm Administered Dose 200 mg .ROUTE .STK-MED ONE Stop: 09/06/18 07:01 Rocuronium Irrigon (Zemuron) Confirm Administered Dose 50 mg .ROUTE .STK-MED ONE Stop: 09/03/18 14:41 Rocuronium Irrigon (Zemuron) Confirm Administered Dose 50 mg .ROUTE .STK-MED ONE Stop: 09/04/18 09:47 Succinylcholine Chloride (Quelicin) Confirm Administered Dose 200 mg .ROUTE .STK -MED ONE Stop: 09/03/18 14:41 Succinylcholine Chloride (Quelicin) Confirm Administered Dose 200 mg .ROUTE .STK -MED ONE Stop: 09/04/18 09:47 Succinylcholine Chloride (Quelicin) Confirm Administered Dose 200 mg .ROUTE .STK -MED ONE Stop: 09/06/18 07:01 - Exam Quality Assessment: Supplemental Oxygen, Central Line/PICC, Urine Catheter, Restraints General: Alert, Lethargic. No: Oriented, Cooperative HEENT: Pupils Equal Lungs: Clear to Auscultation, Normal Respiratory Effort Cardiovascular: Regular Rhythm, Tachycardia GI/Abdominal Exam: Soft, No Distention, Abnormal Bowel Sounds (hypoactive) Extremities: Pedal Edema, Other (arm edema) Skin: Warm, Dry Psy/Mental Status: Alert, Anxious. No: Agitated - Problem List & Annotations (1) Diverticulitis of colon with perforation SNOMED Code(s): 55028987 Code(s): K57.20 - DVTRCLI OF LG INT W PERFORATION AND ABSCESS W/O BLEEDING Status: Acute Current Visit: Yes Qualifiers: Diverticulitis bleeding: without bleeding Qualified Code(s): K57.20 - Diverticulitis of large intestine with perforation and abscess without bleeding (2) Sepsis SNOMED Code(s): 32807287 Code(s): A41.9 - SEPSIS, UNSPECIFIED ORGANISM Status: Acute Current Visit : Yes Qualifiers: Sepsis type: sepsis due to unspecified organism Qualified Code(s): A41.9 - Sepsis, unspecified organism (3) Acute kidney injury SNOMED Code(s): 36835354, 29601481 Code(s): N17.9 - ACUTE KIDNEY FAILURE, UNSPECIFIED Status: Acute Current Visit: Yes (4) Leukopenia SNOMED Code(s): 75438895, 596975374 Code(s): D72.819 - DECREASED WHITE BLOOD CELL COUNT, UNSPECIFIED Status: Acute Current Visit: Yes Qualifiers: Leukopenia type: neutropenia Neutropenia type: other Qualified Code(s): D70.8 - Other neutropenia - Problem List Review Problem List Initiated/Reviewed/Updated: Yes - My Orders Last 24 Hours: My Active Orders 09/15/18 17:41 HYDROmorphone [Dilaudid] 0.5 mg IVPUSH Q2H PRN - Plan Plan:: ASSESSMENT AND PLAN Acute respiratory failure with hypoxia and hypercapnia - CT scan abdomen and pelvis obtained 09/08 shows evidence of bilateral pulmonary infiltrates consistent with infection. Cultures to date have only grown out yeast from her respiratory specimens. Oxygenation has continued to improve with serial bronchoscopies. Secretions have been decreasing. she did better with her weaning trial today but is still not ready for extubation. Good diuresis yesterday. Hopefully with a little more diuresis we will be able to extubate the patient in the next day or 2. -furosemide 40 mg 2 doses today -Continue meropenem and fluconazole -Continue mechanical ventilation (no changes made today) -Sedation is needed to avoid significant agitation -Soft wrist restraints -repeat weaning trial again in the morning (mental status/agitation limiting extubation at this time) Perforated sigmoid colon with sepsis - Initial surgical resection on 09/03 and Second Look laparotomy on 09/04. Sepsis has resolved. Cultures growing Klebsiella , Escherichia coli and anaerobic bacteria. stable from this standpoint and she has completed adequate anabiotic for this infection. -Pain control as indicated -TPN Anemia of critical illness - slow decline in hemoglobin with good response to transfusion yesterday. -Transfuse if less than 7 since she is currently hemodynamically stable and oxygenating well Acute kidney injury - renal function back to normal and stable. She does have an elevated BUN out of proportion to her creatinine. -Management as above -Repeat labs in the morning Hyperactive delirium - She is now sedated with her intubation. -Symptomatically management and treatment of the above conditions Maintenance issues - - DVT prophylaxis - mechanical - GI prophylaxis - PPI - Nutrition - nothing by mouth - Rubin catheter - placed for strict intake and output monitoring and a critical patient Disposition - discharge plan depending on needs at the time of discharge Santana Cunningham M.D.
[2018-09-16] MEDS: Furosemide 40 MG/4 ML VIAL IV SCH ×2 (09:30→21:19)
[2018-09-16] MEDS ORDERED: Potassium Chloride 20 MEQ in Premix Bag 1 BAG IV ONE (12:00)
[2018-09-16] MEDS: Heparin Sodium 5,000 UNITS in Sodium Chloride 0.9% 500 ML IV SCH ×2 (14:00→14:02)
[2018-09-16] MEDS: HYDROmorphone 0.5 MG/0.5 ML Syringe IVPUSH PRN ×2 (15:53→21:28)
[2018-09-16] MEDS: Fluconazole/Normal Saline 400 MG in Premix Bag 1 BAG IV SCH (20:01)
[2018-09-16] MEDS: Pantoprazole 40 MG Vial IV SCH (22:21)
[2018-09-17] MEDS: Metoprolol Tartrate 5 MG/5 ML SDV IVPUSH PRN (01:24)
[2018-09-17] MEDS: HYDROmorphone 0.5 MG/0.5 ML Syringe IVPUSH PRN ×5 (04:17→22:14)
[2018-09-17] MEDS: Lactated Ringers 1,000 ML IV SCH (05:17)
[2018-09-17] MEDS: SODIUM CHLORIDE 0.9% IV SCH ×3 (06:29→22:06)
[2018-09-17] MEDS: MEROPENEM IV SCH ×3 (06:29→22:06)
[2018-09-17] MEDS: Albuterol/Ipratropium 3.0-0.5 MG/3 ML Neb Soln NEB SCH ×4 (07:19→21:11)
[2018-09-17] MEDS: Acetylcysteine 20% 200 MG/ML 4 ML Nebulizer Soln SDV NEB SCH ×4 (07:19→21:11)
--- NOTE | 2018-09-17 07:28 | CRLCR ---
Final Report: INDICATION: Endotracheal tube TECHNIQUE: Chest 1 views COMPARISON: Chest x-ray 09/16/2018 FINDINGS: Cardiovascular and mediastinum: Normal heart size with endotracheal tube at the midtrachea level. Right-sided central line with tip at the distal superior vena cava. Enteric tube extends below the hemidiaphragm. Lungs and pleural spaces: Trace bilateral pleural effusions with slight interstitial prominence as well as bibasilar airspace disease. Bones and soft tissues: No significant findings. IMPRESSION: Trace bilateral pleural effusions with interstitial prominence and bibasilar airspace disease, similar to the prior exam. Dictated by Keven Cronin MD @ Sep 17 2018 4:17AM Signed by: Keven Cronin MD @09/17/2018 4:19:17 AM (Electronic Signature) [facility]USLuis
[2018-09-17] MEDS ORDERED: Potassium Chloride Riders 40 MEQ in Premix Bag 1 BAG IV ONE (08:00)
--- NOTE | 2018-09-17 08:35 | PCM.PN ---
- General Info Date of Service: 09/17/18 - Review of Systems Systems Review Comment:: Tina Muniz is a 77 year old female who is on postoperative day #14 from the original exploratory laparotomy surgery. Mental status: Sedated and on mechanical ventilation. She is able to open her eyes and indicated yes/no answers. She is not able to provide symptoms or a review of systems. Labs show that albumin is 2.6, and alkaline phosphatase at 221. Potassium is 3.8 and BNP is 7777. Total intake through IV is 2727 mL, total output was 5445 mL. Output through Rubin catheter 5370 mL. Gastrointestinal ostomy output it 25 mL. Incision site appears to be healing well. - Patient Data Vitals - Most Recent: Last Vital Signs Temp 36.9 C 09/17/18 05:56 Pulse 92 09/17/18 07:19 Resp 17 09/17/18 05:56 BP 119/46 L 09/17/18 05:56 Pulse Ox 98 09/17/18 05:56 Weight - Most Recent: 78.471 kg I&O - Last 24 Hours: Intake & Output 09/16/18 09/17/18 09/17/18 22:59 06:59 14:59 Intake Total 1392 1335 Output Total 1425 1890 Balance -33 -555 Lab Results Last 24 Hours: Laboratory Results - last 24 hr 09/17/18 09/17/18 09/17/18 Range/Units 04:00 04:00 04:00 WBC 10.2 (4.5-11.0) K/uL RBC 3.05 L (3.30-5.50) M/uL Hgb 9.6 L (12.0-15.0) g/dL Hct 30.0 L (36.0-48.0) % MCV 98 (80-98) fL MCH 32 H (27-31) pg MCHC 32 (32-36) % Plt Count 297 (150-400) K/uL Puncture Site A-line ABG pH 7.221 L (7.350-7.450) ABG pCO2 62.0 H (35.0-42.0) mmHg ABG pO2 120.0 H (75.0-100.0) mmHg ABG HCO3 24.5 (22.0-26.0) mmol/L ABG Total CO2 23.7 (21.0-25.0) mmol/L ABG O2 Saturation 97.1 (95.0-98.0) % ABG O2 Content 13.2 L (15.0-23.0) %vol ABG Base Excess -3.3 mm/L ABG Hemoglobin 9.8 L (12.0-16.0) g/dL ABG Oxyhemoglobin 94.4 % ABG Carboxyhemoglobin 2.1 H (0.0-1.6) % ABG Methemoglobin 0.7 % Woody Test Not performed O2 Delivery Device Ventilator Oxygen Flow Rate L Sodium 141 (140-148) mmol/L Potassium 3.8 (3.6-5.2) mmol/L Chloride 103 (100-108) mmol/L Carbon Dioxide 32 (21-32) mmol/L Anion Gap 6.4 (5.0-14.0) mmol/L BUN 47 H (7-18) mg/dL Creatinine 0.8 (0.6-1.0) mg/dL Est Cr Clr Drug Dosing 44.61 mL/min Estimated GFR (MDRD) > 60 (>60) Glucose 122 H (74-106) mg/dL Calcium 9.2 (8.5-10.1) mg/dL Phosphorus 4.5 (2.5-4.9) mg/dL Magnesium 1.6 L (1.8-2.4) mg/dL Total Bilirubin 1.2 H (0.2-1.0) mg/dL AST 48 H (15-37) U/L ALT 71 (12-78) U/L Alkaline Phosphatase 221 H (46-116) U/L NT-Pro-B Natriuret Pep 7777 H (5-450) pg/mL Total Protein 5.6 L (6.4-8.2) g/dL Albumin 2.6 L (3.4-5.0) g/dL Globulin 3.0 (2.3-3.5) g/dL Albumin/Globulin Ratio 0.9 L (1.2-2.2) 09/17/18 Range/Units 06:24 WBC (4.5-11.0) K/uL RBC (3.30-5.50) M/uL Hgb (12.0-15.0) g/dL Hct (36.0-48.0) % MCV (80-98) fL MCH (27-31) pg MCHC (32-36) % Plt Count (150-400) K/uL Puncture Site A-line ABG pH 7.452 H (7.350-7.450) ABG pCO2 43.8 H (35.0-42.0) mmHg ABG pO2 89.5 (75.0-100.0) mmHg ABG HCO3 30.1 H (22.0-26.0) mmol/L ABG Total CO2 27.8 H (21.0-25.0) mmol/L ABG O2 Saturation 97.0 (95.0-98.0) % ABG O2 Content 13.1 L (15.0-23.0) %vol ABG Base Excess 5.9 mm/L ABG Hemoglobin 9.7 L (12.0-16.0) g/dL ABG Oxyhemoglobin 95.3 % ABG Carboxyhemoglobin 1.1 (0.0-1.6) % ABG Methemoglobin 0.7 % Woody Test A-line O2 Delivery Device Ventilator Oxygen Flow Rate L Sodium (140-148) mmol/L Potassium (3.6-5.2) mmol/L Chloride (100-108) mmol/L Carbon Dioxide (21-32) mmol/L Anion Gap (5.0-14.0) mmol/L BUN (7-18) mg/dL Creatinine (0.6-1.0) mg/dL Est Cr Clr Drug Dosing mL/min Estimated GFR (MDRD) (>60) Glucose (74-106) mg/dL Calcium (8.5-10.1) mg/dL Phosphorus (2.5-4.9) mg/dL Magnesium (1.8-2.4) mg/dL Total Bilirubin (0.2-1.0) mg/dL AST (15-37) U/L ALT (12-78) U/L Alkaline Phosphatase (46-116) U/L NT-Pro-B Natriuret Pep (5-450) pg/mL Total Protein (6.4-8.2) g/dL Albumin (3.4-5.0) g/dL Globulin (2.3-3.5) g/dL Albumin/Globulin Ratio (1.2-2.2) Joseph Results Last 24 Hours: Microbiology 09/17/18 05:06 Gram Stain - Final Endotrachael Aspirate 09/12/18 12:57 AFB Specimen Processing Tissue - Final Bronchial Aspirate - Mixed Acid Fast Bacilli Smear - Final Acid Fast Bacilli Culture - Preliminary 09/14/18 07:25 AFB Specimen Processing Tissue - Final Transbronchial Aspirate Acid Fast Bacilli Smear - Final Acid Fast Bacilli Culture - Preliminary 09/14/18 07:40 Gram Stain - Final Bronchial Aspirate Respiratory Culture - Final Yeast Isolated 09/13/18 10:20 Gram Stain - Final Other - Bronchial Wound Culture - Final Yeast Isolated Anaerobic Culture - Final NO GROWTH AFTER 3 DAYS Med Orders - Current: Current Medications Acetylcysteine (Mucomyst 20%) 200 mg NEB QIDRT [facility] Last Admin: 09/17/18 07:19 Dose: 200 mg Albuterol (Proventil Neb Soln) 2.5 mg NEB Q4H PRN PRN Reason: Dyspnea Albuterol/Ipratropium (Duoneb 3.0-0.5 Mg/3 Ml) 3 ml NEB QIDRT [facility] Last Admin: 09/17/18 07:19 Dose: 3 ml Furosemide (Lasix) 40 mg IV Q12H [facility] Stop: 09/17/18 21:01 Hydralazine HCl (Apresoline) 5 mg IVPUSH Q4H PRN PRN Reason: Hypertension Last Admin: 09/10/18 15:44 Dose: 5 mg Hydromorphone HCl (Dilaudid) 0.5 mg IVPUSH Q2H PRN PRN Reason: Pain Last Admin: 09/17/18 04:17 Dose: 0.5 mg Hydroxyzine HCl (Vistaril) 50 mg IM Q4H PRN PRN Reason: Pain Heparin Sodium (Porcine) 5,000 (units/ Sodium Chloride) 501 mls @ 5 mls/hr IV ASDIRECTED [facility] Last Admin: 09/16/18 14:00 Dose: 5 mls/hr Heparin Sodium (Porcine) 5,000 (units/ Sodium Chloride) 501 mls @ 5 mls/hr IV ASDIRECTED [facility] Last Admin: 09/16/18 14:02 Dose: 5 mls/hr Propofol (Diprivan 100 Ml) 100 mls @ 1.361 mls/hr IV TITRATE [facility]; Protocol Last Titration: 09/17/18 03:30 Dose: 25 mcg/kg/min, 6.804 mls/hr Sodium Chloride (Normal Saline) 1,000 mls @ 0 mls/hr IV ASDIRECTED [facility] Last Admin: 09/15/18 16:07 Dose: 12.5 mls/hr Multivitamins/Minerals 10 ml/Chromium/Copper/Manganese/Seleni/Zn 1 ml/ Amino Ac/ Electrol/Dextrose/Calcium 1,011 mls @ 62 mls/hr IV .BY DURATION [facility] Last Admin: 09/16/18 17:32 Dose: 62 mls/hr Amino Ac/Electrol/Dextrose/Calcium (Clinimix E 09/28) 1,000 mls @ 62 mls/hr IV .BY DURATION [facility] Last Admin: 09/16/18 01:02 Dose: 62 mls/hr Meropenem 500 mg/ Sodium (Chloride) 25 mls @ 50 mls/hr IV Q8H [facility] Last Admin: 09/17/18 06:29 Dose: 50 mls/hr Lactated Ringer's (Ringers, Lactated) 1,000 mls @ 25 mls/hr IV ASDIRECTED [facility] Last Admin: 09/17/18 05:17 Dose: 25 mls/hr Fluconazole/Sodium Chloride (400 mg/ Premix) 200 mls @ 100 mls/hr IV Q24H [facility] Last Admin: 09/16/18 20:01 Dose: 100 mls/hr Potassium Chloride 40 meq/ (Premix) 100 mls @ 25 mls/hr IV ONETIME ONE Stop: 09/17/18 11:59 Magnesium Sulfate 2 gm/ Premix 50 mls @ 25 mls/hr IV Q6H [facility] Stop: 09/19/18 05:59 Ketoconazole (Nizoral 2% Crm) 0 gm TOP TID [facility] Lorazepam (Ativan) 0.5 mg IVPUSH Q3H PRN PRN Reason: AGITATION Last Admin: 09/05/18 03:50 Dose: 0.25 mg Metoprolol Tartrate (Lopressor) 2.5 mg IVPUSH Q4H PRN PRN Reason: Hypertension Last Admin: 09/17/18 01:24 Dose: 2.5 mg Naloxone HCl (Narcan) 0.1 mg IV ASDIRECTED PRN PRN Reason: decreased respiratory rate Pantoprazole Sodium (Protonix Iv) 40 mg IV Q24H [facility] Last Admin: 09/16/18 22:21 Dose: 40 mg Discontinued Medications Acetaminophen (Tylenol) 650 mg PO Q4H PRN PRN Reason: Pain (Mild 1-3)/fever Acetaminophen (Tylenol) 650 mg RECTAL Q4H PRN PRN Reason: Mild pain/fever Albuterol (Proventil Neb Soln) 2.5 mg NEB Q4H PRN PRN Reason: Shortness Of Breath/wheezing Albuterol/Ipratropium (Duoneb 3.0-0.5 Mg/3 Ml) 3 ml INH PREPRO ONE Stop: 09/03/18 17:01 Last Admin: 09/03/18 16:25 Dose: 3 ml Albuterol/Ipratropium (Duoneb 3.0-0.5 Mg/3 Ml) 3 ml NEB QID [facility] Last Admin: 09/13/18 21:11 Dose: 3 ml Aztreonam (Azactam) Confirm Administered Dose 1 gm .ROUTE .STK-MED ONE Stop: 09/03/18 21:44 Last Admin: 09/03/18 22:15 Dose: Not Given Benazepril HCl (Lotensin) 40 mg PO ONETIME ONE Stop: 09/03/18 10:41 Last Admin: 09/03/18 11:00 Dose: 40 mg Bupivacaine HCl (Marcaine 0.5%) Confirm Administered Dose 50 ml .ROUTE .STK-MED ONE Stop: 09/07/18 06:48 Last Admin: 09/07/18 10:53 Dose: 18 ml Bupivacaine HCl (Marcaine 0.5%) Confirm Administered Dose 50 ml .ROUTE .STK-MED ONE Stop: 09/11/18 09:07 Last Admin: 09/11/18 10:49 Dose: 2 ml Ropivacaine 22 ml/Dexamethasone 8 mg/Epinephrine HCl 0.4 mg/ Sodium Chloride 55.6 ml 0 ml NERVRT ASDIRECTED [facility] Ropivacaine 22 ml/Dexamethasone 8 mg/Epinephrine HCl 0.4 mg/ Sodium Chloride 55.6 ml 0 ml NERVRT ASDIRECTED [facility] Last Admin: 09/04/18 14:03 Dose: 80 syringe Ropivacaine 22 ml/Dexamethasone 8 mg/Epinephrine HCl 0.4 mg/ Sodium Chloride 55.6 ml 0 ml NERVRT ASDIRECTED [facility] Last Admin: 09/07/18 11:07 Dose: 80 syringe Dexamethasone (Dexamethasone) Confirm Administered Dose 4 mg .ROUTE .STK-MED ONE Stop: 09/03/18 14:41 Dexamethasone (Dexamethasone) Confirm Administered Dose 4 mg .ROUTE .STK-MED ONE Stop: 09/04/18 09:47 Fentanyl (Sublimaze) 25 mcg IVPUSH ONETIME ONE Stop: 09/03/18 13:57 Last Admin: 09/03/18 14:16 Dose: 25 mcg Fentanyl (Sublimaze) 25 mcg IVPUSH Q2H PRN PRN Reason: Pain (severe 7-10) Fentanyl (Sublimaze) Confirm Administered Dose 250 mcg .ROUTE .STK-MED ONE Stop: 09/03/18 14:41 Fentanyl (Sublimaze) Confirm Administered Dose 250 mcg .ROUTE .STK-MED ONE Stop: 09/04/18 09:46 Fentanyl (Sublimaze) Confirm Administered Dose 250 mcg .ROUTE .STK-MED ONE Stop: 09/04/18 13:57 Fentanyl (Sublimaze) Confirm Administered Dose 100 mcg .ROUTE .STK-MED ONE Stop: 09/11/18 10:36 Furosemide (Lasix) 20 mg IVPUSH ONETIME ONE Stop: 09/04/18 15:10 Last Admin: 09/04/18 15:18 Dose: 20 mg Furosemide (Lasix) 40 mg IV ONETIME ONE Stop: 09/06/18 08:16 Last Admin: 09/06/18 08:26 Dose: 40 mg Furosemide (Lasix) 20 mg IV Q12H [facility] Stop: 09/07/18 20:01 Last Admin: 09/07/18 20:10 Dose: 20 mg Furosemide (Lasix) 20 mg IVPUSH Q12H [facility] Stop: 09/08/18 19:01 Last Admin: 09/08/18 19:50 Dose: 20 mg Furosemide (Lasix) 20 mg IVPUSH ONETIME ONE Stop: 09/09/18 07:01 Last Admin: 09/09/18 08:14 Dose: 20 mg Furosemide (Lasix) 20 mg IVPUSH ONETIME ONE Stop: 09/09/18 11:01 Last Admin: 09/09/18 12:38 Dose: 20 mg Furosemide (Lasix) 20 mg IVPUSH ONETIME ONE Stop: 09/09/18 20:01 Furosemide (Lasix) 20 mg IV Q8H [facility] Stop: 09/11/18 00:31 Last Admin: 09/10/18 23:50 Dose: 20 mg Furosemide (Lasix) 20 mg IV Q8H [facility] Stop: 09/12/18 00:01 Last Admin: 09/11/18 23:34 Dose: 20 mg Furosemide (Lasix) 20 mg IVPUSH Q8H [facility] Stop: 09/13/18 02:31 Last Admin: 09/13/18 02:39 Dose: 20 mg Furosemide (Lasix) 20 mg IVPUSH Q8H [facility] Stop: 09/14/18 02:31 Last Admin: 09/14/18 02:29 Dose: 20 mg Furosemide (Lasix) 40 mg IVPUSH ONETIME ONE Stop: 09/14/18 10:01 Last Admin: 09/14/18 13:28 Dose: 40 mg Furosemide (Lasix) 20 mg IVPUSH BID [facility] Furosemide (Lasix) 20 mg IVPUSH ONETIME ONE Stop: 09/15/18 06:34 Last Admin: 09/15/18 06:48 Dose: 20 mg Furosemide (Lasix) 40 mg IVPUSH Q8H [facility] Stop: 09/15/18 20:31 Last Admin: 09/15/18 20:39 Dose: 40 mg Furosemide (Lasix) 40 mg IV BID [facility] Stop: 09/16/18 21:01 Last Admin: 09/16/18 21:19 Dose: 40 mg Gentamicin Sulfate (Gentamicin) 1 mg IV .Pharmacy to Dose [facility] Stop: 09/08/18 14:31 Glycopyrrolate (Robinul) Confirm Administered Dose 1 mg .ROUTE .STK-MED ONE Stop: 09/03/18 14:41 Glycopyrrolate (Robinul) Confirm Administered Dose 1 mg .ROUTE .STK-MED ONE Stop: 09/04/18 09:47 Heparin Sodium (Porcine) (Heparin Sodium) Confirm Administered Dose 5,000 units .ROUTE .STK-MED ONE Stop: 09/03/18 18:32 Heparin Sodium (Porcine) (Heparin Lock Flush 100 Units/Ml) Confirm Administered Dose 500 units .ROUTE .STK-MED ONE Stop: 09/04/18 13:14 Heparin Sodium (Porcine) (Heparin Lock Flush 100 Units/Ml) Confirm Administered Dose 1,000 units .ROUTE .STK-MED ONE Stop: 09/11/18 09:07 Last Admin: 09/11/18 10:58 Dose: 1,000 units Heparin Sodium (Porcine) (Heparin Lock Flush 100 Units/Ml) Confirm Administered Dose 500 units .ROUTE .STK-MED ONE Stop: 09/11/18 10:44 Last Admin: 09/11/18 10:58 Dose: 500 units Hydromorphone HCl (Dilaudid) 0.5 mg IVPUSH ONETIME ONE Stop: 09/03/18 10:48 Last Admin: 09/03/18 11:00 Dose: 0.5 mg Hydromorphone HCl (Dilaudid) 0.5 mg IVPUSH ONETIME ONE Stop: 09/03/18 11:22 Last Admin: 09/03/18 11:25 Dose: 0.5 mg Hydromorphone HCl (Dilaudid) 0.5 mg IVPUSH ONETIME ONE Stop: 09/03/18 12:10 Last Admin: 09/03/18 12:12 Dose: 0.5 mg Hydromorphone HCl (Dilaudid) 0.5 mg IVPUSH ONETIME ONE Stop: 09/03/18 12:40 Last Admin: 09/03/18 12:44 Dose: 0.5 mg Hydromorphone HCl (Dilaudid) 1 mg IVPUSH ONETIME ONE Stop: 09/03/18 12:57 Last Admin: 09/03/18 13:00 Dose: 1 mg Hydromorphone HCl (Dilaudid [employer] 15 Mg In Ns 30 Ml) 0 mg IV ASDIRECTED PRN; Protocol PRN Reason: 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 Last Admin: 09/09/18 05:52 Dose: 15 mg Sodium Chloride (Normal Saline) 1,000 mls @ 1,000 mls/hr IV .BOLUS ONE Stop: 09/03/18 12:17 Last Admin: 09/03/18 11:25 Dose: 1,000 mls/hr Piperacillin/Tazobactam/ (Dextrose 4.5 gm/ Premix) 100 mls @ 200 mls/hr IV ONETIME ONE Stop: 09/03/18 13:29 Last Admin: 09/03/18 13:04 Dose: 200 mls/hr Sodium Chloride (Normal Saline) 1,000 mls @ 500 mls/hr IV ASDIRECTED [facility] Last Admin: 09/03/18 13:00 Dose: 500 mls/hr Lactated Ringer's (Ringers, Lactated) 1,000 mls @ 125 mls/hr IV ASDIRECTED [facility] Last Admin: 09/03/18 16:07 Dose: 125 mls/hr Aztreonam 2 gm/ Sodium (Chloride) 100 mls @ 200 mls/hr IV NOW ONE Stop: 09/03/18 15:29 Last Admin: 09/03/18 14:56 Dose: 200 mls/hr Meropenem 500 mg/ Sodium (Chloride) 50 mls @ 100 mls/hr IV ONCALL ONE Stop: 09/03/18 17:29 Last Admin: 09/03/18 16:25 Dose: 100 mls/hr Piperacillin/Tazobactam/ (Dextrose 3.375 gm/ Premix) 50 mls @ 100 mls/hr IV Q6H [facility] Last Admin: 09/03/18 22:15 Dose: Not Given Sodium Chloride (Normal Saline) Confirm Administered Dose 500 mls @ as directed .ROUTE .STK-MED ONE Stop: 09/03/18 18:33 Aztreonam/Dextrose 1 gm/ (Premix) 50 mls @ 100 mls/hr IV Q8HR [facility] Meropenem 500 mg/ Sodium (Chloride) 50 mls @ 100 mls/hr IV Q8H [facility] Last Admin: 09/10/18 05:17 Dose: 100 mls/hr Sodium Chloride (Normal Saline) Confirm Administered Dose 50 mls @ as directed .ROUTE .STK-MED ONE Stop: 09/03/18 22:01 Last Admin: 09/03/18 22:21 Dose: Not Given Aztreonam/Dextrose 1 gm/ (Premix) 50 mls @ 100 mls/hr IV Q8H [facility] Last Admin: 09/04/18 07:30 Dose: Not Given Dextrose/Lactated Ringer's (Dextrose 5%-Lactated Ringers) 1,000 mls @ 100 mls/ hr IV ASDIRECTED PRN PRN Reason: Hypotension Dextrose/Lactated Ringer's (Dextrose 5%-Lactated Ringers) 1,000 mls @ 100 mls/ hr IV ASDIRECTED [facility] Last Admin: 09/05/18 02:13 Dose: 100 mls/hr Lactated Ringer's (Ringers, Lactated) 1,000 mls @ 100 mls/hr IV ASDIRECTED [facility] Last Admin: 09/04/18 04:20 Dose: 100 mls/hr Lactated Ringer's (Ringers, Lactated) 500 mls @ 500 mls/hr IV .BOLUS [facility] Last Admin: 09/04/18 01:10 Dose: 500 mls/hr Lactated Ringer's (Ringers, Lactated) 500 mls @ 500 mls/hr IV .BOLUS [facility] Last Admin: 09/04/18 03:13 Dose: 500 mls/hr Propofol (Diprivan 100 Ml) 100 mls @ 1.361 mls/hr IV TITRATE [facility]; Protocol Last Titration: 09/04/18 07:52 Dose: 14 mcg/kg/min, 3.81 mls/hr Propofol (Diprivan 100 Ml) Confirm Administered Dose 100 mls @ as directed .ROUTE .STK-MED ONE Stop: 09/04/18 03:45 Last Admin: 09/04/18 03:59 Dose: Not Given Lactated Ringer's (Ringers, Lactated) 500 mls @ 999 mls/hr IV .BOLUS [facility] Last Admin: 09/04/18 06:10 Dose: 999 mls/hr Aztreonam/Dextrose 1 gm/ (Premix) 50 mls @ 100 mls/hr IV Q8H [facility] Last Admin: 09/07/18 08:15 Dose: 100 mls/hr Lactated Ringer's (Ringers, Lactated) 500 mls @ 500 mls/hr IV ASDIRECTED [facility] Last Admin: 09/04/18 21:04 Dose: 500 mls/hr Lactated Ringer's (Ringers, Lactated) Confirm Administered Dose 1,000 mls @ as directed .ROUTE .STK-MED ONE Stop: 09/04/18 13:11 Lactated Ringer's (Ringers, Lactated) Confirm Administered Dose 1,000 mls @ as directed .ROUTE .STK-MED ONE Stop: 09/04/18 13:11 Sodium Chloride (Normal Saline) Confirm Administered Dose 10 mls @ as directed .ROUTE .STK-MED ONE Stop: 09/04/18 13:15 Magnesium Sulfate 2 gm/ Premix 50 mls @ 25 mls/hr IV Q6H [facility] Stop: 09/06/18 11:59 Last Admin: 09/06/18 10:17 Dose: 25 mls/hr Lactated Ringer's (Ringers, Lactated) 500 mls @ 500 mls/hr IV ASDIRECTED [facility] Stop: 09/04/18 17:46 Lactated Ringer's (Ringers, Lactated) 500 mls @ 500 mls/hr IV ONETIME ONE Stop: 09/04/18 19:29 Last Admin: 09/04/18 18:37 Dose: 500 mls/hr Lactated Ringer's (Ringers, Lactated) 500 mls @ 1,000 mls/hr IV ONETIME ONE Stop: 09/04/18 23:30 Last Admin: 09/04/18 23:18 Dose: 1,000 mls/hr Lactated Ringer's (Ringers, Lactated) 500 mls @ 1,000 mls/hr IV ONETIME ONE Stop: 09/05/18 01:44 Last Admin: 09/05/18 01:15 Dose: 1,000 mls/hr Lactated Ringer's (Ringers, Lactated) 1,000 mls @ 150 mls/hr IV ASDIRECTED [facility] Last Admin: 09/05/18 02:13 Dose: 150 mls/hr Lactated Ringer's (Ringers, Lactated) 500 mls @ 1,000 mls/hr IV ONETIME ONE Stop: 09/05/18 03:38 Last Admin: 09/05/18 03:15 Dose: 1,000 mls/hr Multivitamins/Minerals 10 ml/Chromium/Copper/Manganese/Seleni/Zn 1 ml/ Amino Ac/ Electrol/Dextrose/Calcium 2,011 mls @ 82 mls/hr IV .BY DURATION [facility] Stop: 09/05/18 13:25 Last Admin: 09/05/18 13:32 Dose: Not Given Amino Ac/Electrol/Dextrose/Calcium (Clinimix E 09/23) 2,000 mls @ 82 mls/hr IV .BY DURATION [facility] Stop: 09/05/18 13:25 Vancomycin HCl 1 gm/ Sodium (Chloride) 250 mls @ 167 mls/hr IV Q24H [facility] Last Admin: 09/05/18 12:34 Dose: 167 mls/hr Sodium Chloride (Normal Saline) 1,000 mls @ 50 mls/hr IV ASDIRECTED [facility] Last Admin: 09/05/18 12:51 Dose: 50 mls/hr Multivitamins/Minerals 10 ml/Chromium/Copper/Manganese/Seleni/Zn 1 ml/ Amino Ac/ Electrol/Dextrose/Calcium 2,011 mls @ 82 mls/hr IV .BY DURATION [facility] Stop: 09/08/18 13:20 Last Admin: 09/07/18 15:09 Dose: 82 mls/hr Amino Ac/Electrol/Dextrose/Calcium (Clinimix E 15) 2,000 mls @ 82 mls/hr IV .BY DURATION [facility] Stop: 09/08/18 13:20 Vancomycin HCl 1 gm/ Sodium (Chloride) 250 mls @ 167 mls/hr IV Q24H [facility] Last Admin: 09/06/18 12:00 Dose: 167 mls/hr Sodium Chloride (Normal Saline) 500 mls @ 500 mls/hr IV ASDIRECTED ONE Stop: 09/05/18 16:29 Last Admin: 09/05/18 15:40 Dose: 500 mls/hr Sodium Chloride (Normal Saline) 1,000 mls @ 100 mls/hr IV ASDIRECTED [facility] Last Admin: 09/07/18 07:31 Dose: 100 mls/hr Potassium Phosphate 20 mmole/ (Sodium Chloride) 106.6667 mls @ 35 mls/hr IV Q3H [facility] Stop: 09/07/18 17:29 Last Admin: 09/07/18 15:01 Dose: 35 mls/hr Albumin Human (Albumin 25%) 25 gm in 100 mls @ 25 mls/hr IV DAILY [facility] Stop: 09/09/18 12:59 Last Admin: 09/09/18 08:25 Dose: 25 mls/hr Albumin Human (Albumin 25%) 25 gm in 100 mls @ 25 mls/hr IV Q24H [facility] Stop: 09/09/18 17:59 Last Admin: 09/09/18 14:32 Dose: 25 mls/hr Aztreonam 1 gm/ Sodium (Chloride) 50 mls @ 100 mls/hr IV Q8H [facility] Last Admin: 09/08/18 09:41 Dose: 100 mls/hr Vancomycin HCl 1 gm/ Sodium (Chloride) 250 mls @ 167 mls/hr IV Q18H [facility] Last Admin: 09/09/18 18:42 Dose: 167 mls/hr Sodium Chloride (Normal Saline) 1,000 mls @ 999 mls/hr IV .BOLUS ONE Stop: 09/07/18 17:39 Last Admin: 09/07/18 17:26 Dose: 999 mls/hr Potassium Acetate 40 meq/ (Sodium Chloride) 120 mls @ 30 mls/hr IV ONETIME ONE Stop: 09/08/18 13:59 Last Admin: 09/08/18 09:44 Dose: 30 mls/hr Sodium Chloride (Normal Saline) 100 mls @ 3 mls/sec IV ASDIRECTED [facility] Stop: 09/08/18 15:00 Last Admin: 09/08/18 14:17 Dose: 3 mls/sec Azithromycin 500 mg/ Sodium (Chloride) 250 mls @ 250 mls/hr IV Q24H [facility] Last Admin: 09/09/18 15:27 Dose: 250 mls/hr Gentamicin Sulfate 228 mg/ (Sodium Chloride) 105.7 mls @ 100 mls/hr IV ONETIME ONE Stop: 09/08/18 17:03 Last Admin: 09/08/18 16:19 Dose: 100 mls/hr Potassium Phosphate 15 mmole/ (Sodium Chloride) 105 mls @ 55 mls/hr IV Q2H [facility] Stop: 09/09/18 12:55 Last Admin: 09/09/18 15:27 Dose: 55 mls/hr Gentamicin Sulfate 228 mg/ (Sodium Chloride) 105.7 mls @ 100 mls/hr IV Q36H [facility] Last Admin: 09/10/18 03:55 Dose: 100 mls/hr Sodium Chloride (Normal Saline) 500 mls @ 999 mls/hr IV .BOLUS ONE Stop: 09/09/18 16:34 Last Admin: 09/09/18 16:18 Dose: 999 mls/hr Sodium Chloride (Normal Saline) 500 mls @ 999 mls/hr IV .BOLUS ONE Stop: 09/09/18 17:35 Last Admin: 09/09/18 17:18 Dose: 999 mls/hr Sodium Chloride (Normal Saline) 1,000 mls @ 125 mls/hr IV ASDIRECTED [facility] Last Admin: 09/10/18 01:41 Dose: 125 mls/hr Lactated Ringer's (Ringers, Lactated) 1,000 mls @ 125 mls/hr IV ASDIRECTED [facility] Last Admin: 09/11/18 01:06 Dose: 125 mls/hr Gentamicin Sulfate 228 mg/ (Sodium Chloride) 55.7 mls @ 55 mls/hr IV Q36H [facility] Last Admin: 09/14/18 16:49 Dose: 55 mls/hr Azithromycin 500 mg/ Dextrose/ (Water) 250 mls @ 250 mls/hr IV Q24H [facility] Stop: 09/17/18 17:00 Last Admin: 09/14/18 15:42 Dose: 250 mls/hr Vancomycin HCl 1 gm/ Dextrose/ (Water) 250 mls @ 167 mls/hr IV Q24H [facility] Last Admin: 09/13/18 17:48 Dose: 167 mls/hr Fluconazole/Sodium Chloride (200 mg/ Premix) 100 mls @ 100 mls/hr IV Q24H [facility] Last Admin: 09/15/18 20:38 Dose: 100 mls/hr Magnesium Sulfate 2 gm/ Premix 50 mls @ 25 mls/hr IV Q6H [facility] Stop: 09/13/18 05:59 Last Admin: 09/13/18 03:31 Dose: 25 mls/hr Potassium Phosphate 22.5 mmole (/ Dextrose/Water) 107.5 mls @ 27 mls/hr IV Q4H [facility] Stop: 09/11/18 17:29 Last Admin: 09/11/18 14:45 Dose: 27 mls/hr Lactated Ringer's (Ringers, Lactated) 1,000 mls @ 75 mls/hr IV ASDIRECTED [facility] Last Admin: 09/13/18 22:27 Dose: 75 mls/hr Sodium Chloride (Normal Saline) Confirm Administered Dose 10 mls @ as directed .ROUTE .STK-MED ONE Stop: 09/11/18 10:41 Potassium Chloride 40 meq/ (Premix) 100 mls @ 25 mls/hr IV ONETIME ONE Stop: 09/13/18 12:59 Last Admin: 09/13/18 09:31 Dose: 25 mls/hr Potassium Chloride 40 meq/ (Premix) 100 mls @ 25 mls/hr IV ONETIME ONE Stop: 09/13/18 17:59 Last Admin: 09/13/18 13:11 Dose: 25 mls/hr Albumin Human (Albumin 25%) 25 gm in 100 mls @ 25 mls/hr IV Q24H [facility] Stop: 09/16/18 11:59 Last Admin: 09/16/18 09:02 Dose: 25 mls/hr Albumin Human (Albumin 25%) 25 gm in 100 mls @ 25 mls/hr IV Q24H [facility] Stop: 09/16/18 15:59 Last Admin: 09/16/18 12:33 Dose: 25 mls/hr Potassium Chloride 40 meq/ (Premix) 100 mls @ 25 mls/hr IV ONETIME ONE Stop: 09/16/18 11:59 Last Admin: 09/16/18 08:02 Dose: 25 mls/hr Potassium Chloride 20 meq/ (Premix) 100 mls @ 50 mls/hr IV ONETIME ONE Stop: 09/16/18 13:59 Last Admin: 09/16/18 11:36 Dose: 50 mls/hr Iopamidol (Isovue-300 (61%)) 100 ml IV . DIRECTED PRN PRN Reason: RADIOLOGY EXAM Stop: 09/09/18 11:03 Last Admin: 09/08/18 14:16 Dose: 100 ml Lidocaine HCl (Xylocaine 2% Viscous) Confirm Administered Dose 15 ml .ROUTE .STK -MED ONE Stop: 09/12/18 11:15 Lidocaine HCl (Xylocaine 4% Top Soln) Confirm Administered Dose 50 ml .ROUTE .STK-MED ONE Stop: 09/12/18 11:15 Lidocaine HCl (Xylocaine 4% Top Soln) Confirm Administered Dose 50 ml .ROUTE .STK-MED ONE Stop: 09/14/18 06:57 Last Admin: 09/14/18 07:20 Dose: 20 ml Lidocaine HCl (Xylocaine-Mpf 1%) 5 ml INJECT ONETIME ONE Stop: 09/17/18 06:31 Last Admin: 09/17/18 06:52 Dose: 5 ml Lidocaine/Epinephrine (Xylocaine 1% With Epinephrine 1:100,000) Confirm Administered Dose 50 ml .ROUTE .STK-MED ONE Stop: 09/07/18 06:48 Last Admin: 09/07/18 10:54 Dose: 18 ml Lidocaine/Epinephrine (Xylocaine 1% With Epinephrine 1:100,000) Confirm Administered Dose 50 ml .ROUTE .STK-MED ONE Stop: 09/11/18 09:07 Last Admin: 09/11/18 10:49 Dose: 2 ml Lorazepam (Ativan) 0.5 mg IVPUSH Q4H PRN PRN Reason: Nausea/Vomiting Meropenem (Merrem) Confirm Administered Dose 1,000 mg .ROUTE .STK-MED ONE Stop: 09/03/18 17:54 Last Admin: 09/03/18 18:32 Dose: 3,500 mg Meropenem (Merrem) Confirm Administered Dose 1,000 mg .ROUTE .STK-MED ONE Stop: 09/03/18 18:04 Meropenem (Merrem) Confirm Administered Dose 2,000 mg .ROUTE .STK-MED ONE Stop: 09/03/18 18:18 Meropenem (Merrem) Confirm Administered Dose 500 mg .ROUTE .STK-MED ONE Stop: 09/07/18 06:48 Last Admin: 09/07/18 10:53 Dose: 500 mg Metoprolol Tartrate (Lopressor) 25 mg PO ONETIME ONE Stop: 09/03/18 10:41 Last Admin: 09/03/18 11:00 Dose: 25 mg Metoprolol Tartrate (Lopressor) 5 mg IVPUSH Q6H [facility] Last Admin: 09/08/18 09:25 Dose: 5 mg Metoprolol Tartrate (Lopressor) 2.5 mg IVPUSH Q6H [facility] Last Admin: 09/10/18 03:55 Dose: 2.5 mg Metoprolol Tartrate (Lopressor) Confirm Administered Dose 5 mg .ROUTE .STK-MED ONE Stop: 09/08/18 21:53 Last Admin: 09/08/18 22:19 Dose: Not Given Metoprolol Tartrate (Lopressor) 2.5 mg IVPUSH Q4H [facility] Last Admin: 09/11/18 21:25 Dose: Not Given Neostigmine Methylsulfate (Neostigmine) Confirm Administered Dose 5 mg .ROUTE .STK-MED ONE Stop: 09/03/18 14:41 Neostigmine Methylsulfate (Neostigmine) Confirm Administered Dose 5 mg .ROUTE .STK-MED ONE Stop: 09/04/18 09:47 Non-Formulary Medication (Total Parenteral Nutrition, Central) 0 ml IV ASDIRECTED NAHED Stop: 09/12/18 13:31 Non-Formulary Medication (Total Parenteral Nutrition, Central) 0 ml IV ASDIRECTED NAHED Stop: 09/13/18 13:00 Ondansetron HCl (Zofran Odt) 4 mg PO Q6H PRN PRN Reason: Nausea able to take PO Ondansetron HCl (Zofran) 4 mg IV Q6H PRN PRN Reason: Nausea/Vomiting Ondansetron HCl (Zofran) Confirm Administered Dose 4 mg .ROUTE .STK-MED ONE Stop: 09/03/18 14:41 Ondansetron HCl (Zofran) Confirm Administered Dose 4 mg .ROUTE .STK-MED ONE Stop: 09/04/18 09:47 Pantoprazole Sodium (Protonix Iv) 40 mg IV Q12H [facility] Last Admin: 09/03/18 16:07 Dose: 40 mg Piperacillin Sod/Tazobactam Sod (Zosyn) 10.125 gm .XX ASDIRECTED [facility] Stop: 09/04/18 15:00 Last Admin: 09/04/18 14:04 Dose: 10.125 gm Propofol (Diprivan 20 Ml) Confirm Administered Dose 200 mg .ROUTE .STK-MED ONE Stop: 09/03/18 14:41 Propofol (Diprivan 20 Ml) Confirm Administered Dose 200 mg .ROUTE .STK-MED ONE Stop: 09/04/18 09:47 Propofol (Diprivan 20 Ml) Confirm Administered Dose 200 mg .ROUTE .STK-MED ONE Stop: 09/06/18 07:01 Rocuronium Whitman (Zemuron) Confirm Administered Dose 50 mg .ROUTE .STK-MED ONE Stop: 09/03/18 14:41 Rocuronium Whitman (Zemuron) Confirm Administered Dose 50 mg .ROUTE .STK-MED ONE Stop: 09/04/18 09:47 Succinylcholine Chloride (Quelicin) Confirm Administered Dose 200 mg .ROUTE .STK -MED ONE Stop: 09/03/18 14:41 Succinylcholine Chloride (Quelicin) Confirm Administered Dose 200 mg .ROUTE .STK -MED ONE Stop: 09/04/18 09:47 Succinylcholine Chloride (Quelicin) Confirm Administered Dose 200 mg .ROUTE .STK -MED ONE Stop: 09/06/18 07:01 - Exam General: Sedated, Lethargic Lungs: Clear to Auscultation, Normal Respiratory Effort Cardiovascular: Regular Rhythm GI/Abdominal Exam: Soft, No Distention Extremities: Other (Lower extremity edema, marked erythema on bilateral thighs and pelvis area) Skin: Warm Wound/Incisions: Other Neurological: No New Focal Deficit - Problem List Review Problem List Initiated/Reviewed/Updated: Yes - Assessment Assessment:: 1. 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 Exploratory laparotomy with a. sigmoid colon resection with end colotomy plus Rosa procedure b. drainage of pericolonic abscess plus diffuse peritoneal cavity washout c. small bowel resection Date of procedure: 09/03/2018, Surgeon Christiano Estrada MD 3.Indication of central venous access 4. Diffuse feculent perforation with second look laparotomy showing: a. pelvic right subphrenic with fluid collection b. segment small bowel with increasing necrosis adjacent mesentery 5. Insertion Left subclavian triple-lumen catheter 6. Second look laparotomy with: a. drainage peritoneal inflammatory fluid collection b. drainage right subphrenic inflammatory fluid collection d. plus small bowel resection 7. Date of procedure: 09/04/2018, Surgeon, Christiano Estrada MD 8. Hypoalbuminemia 9. Ventilator dependence: appears close to be weaned from ventilator 10. SP Bronchoscopy. Brain MD Wesley on 09/12/2018 11. Large volume mucoid pulmonary secretions, cleaned by bronchoscopy; Mucomyst started yesterday 12. Bronchial sputum culture: yeast isolated 13. Hypomagnesemia - Plan Plan:: 1. Continue current TPN content and rate 2. Administer Lasix 40 mg IV push at 9AM and 9PM to facilitate diuresis 3. Administer Potassium Chloride, 40 milliequivalents; minimize IV fluid via central line 4. AM labs: CBC, CMP, Mg, Phosphorous, BNP and ABG 5. Administer Ketoconazole cream to affected erythematous areas of the pelvis perineum area and bilateral thighs, three times a day for presumed fungal skin infection 6. Administer Magnesium Sulfate, 2 gm IV piggyback every 6 hours for 48 hours 7. Recheck as needed or in the AM 8. Weaning trial today; change to SIMV ventilator mode as tolerated
--- NOTE | 2018-09-17 08:50 | PCM.PN ---
- General Info Date of Service: 09/17/18 Subjective Update: There were no acute events overnight. The patient rested well on the ventilator. She did not have any fevers. Excellent response to diuresis again yesterday. So far this morning she has done well with her breathing trial. She had good weaning parameters and did not develop significant tachypnea or tachycardia but she did have some hypertension. She has been on SIMV and has been doing quite well with this throughout the morning and into the afternoon. She is alert and will follow you with her eyes and her head. She is wiggling toes but does not follow commands such as squeeze my fingers or wiggle your toes. Functional Status: Denies: Ambulating - Review of Systems General: Denies: Fever - Patient Data Vitals - Most Recent: Last Vital Signs Temp 36.9 C 09/17/18 05:56 Pulse 92 09/17/18 07:19 Resp 17 09/17/18 05:56 BP 119/46 L 09/17/18 05:56 Pulse Ox 98 09/17/18 05:56 Weight - Most Recent: 78.471 kg I&O - Last 24 Hours: Intake & Output 09/16/18 09/17/18 09/17/18 22:59 06:59 14:59 Intake Total 1392 1335 Output Total 1425 1890 Balance -33 -555 Lab Results Last 24 Hours: Laboratory Results - last 24 hr 09/17/18 09/17/18 09/17/18 Range/Units 04:00 04:00 04:00 WBC 10.2 (4.5-11.0) K/uL RBC 3.05 L (3.30-5.50) M/uL Hgb 9.6 L (12.0-15.0) g/dL Hct 30.0 L (36.0-48.0) % MCV 98 (80-98) fL MCH 32 H (27-31) pg MCHC 32 (32-36) % Plt Count 297 (150-400) K/uL Puncture Site A-line ABG pH 7.221 L (7.350-7.450) ABG pCO2 62.0 H (35.0-42.0) mmHg ABG pO2 120.0 H (75.0-100.0) mmHg ABG HCO3 24.5 (22.0-26.0) mmol/L ABG Total CO2 23.7 (21.0-25.0) mmol/L ABG O2 Saturation 97.1 (95.0-98.0) % ABG O2 Content 13.2 L (15.0-23.0) %vol ABG Base Excess -3.3 mm/L ABG Hemoglobin 9.8 L (12.0-16.0) g/dL ABG Oxyhemoglobin 94.4 % ABG Carboxyhemoglobin 2.1 H (0.0-1.6) % ABG Methemoglobin 0.7 % Woody Test Not performed O2 Delivery Device Ventilator Oxygen Flow Rate L Sodium 141 (140-148) mmol/L Potassium 3.8 (3.6-5.2) mmol/L Chloride 103 (100-108) mmol/L Carbon Dioxide 32 (21-32) mmol/L Anion Gap 6.4 (5.0-14.0) mmol/L BUN 47 H (7-18) mg/dL Creatinine 0.8 (0.6-1.0) mg/dL Est Cr Clr Drug Dosing 44.61 mL/min Estimated GFR (MDRD) > 60 (>60) Glucose 122 H (74-106) mg/dL Calcium 9.2 (8.5-10.1) mg/dL Phosphorus 4.5 (2.5-4.9) mg/dL Magnesium 1.6 L (1.8-2.4) mg/dL Total Bilirubin 1.2 H (0.2-1.0) mg/dL AST 48 H (15-37) U/L ALT 71 (12-78) U/L Alkaline Phosphatase 221 H (46-116) U/L NT-Pro-B Natriuret Pep 7777 H (5-450) pg/mL Total Protein 5.6 L (6.4-8.2) g/dL Albumin 2.6 L (3.4-5.0) g/dL Globulin 3.0 (2.3-3.5) g/dL Albumin/Globulin Ratio 0.9 L (1.2-2.2) 09/17/18 Range/Units 06:24 WBC (4.5-11.0) K/uL RBC (3.30-5.50) M/uL Hgb (12.0-15.0) g/dL Hct (36.0-48.0) % MCV (80-98) fL MCH (27-31) pg MCHC (32-36) % Plt Count (150-400) K/uL Puncture Site A-line ABG pH 7.452 H (7.350-7.450) ABG pCO2 43.8 H (35.0-42.0) mmHg ABG pO2 89.5 (75.0-100.0) mmHg ABG HCO3 30.1 H (22.0-26.0) mmol/L ABG Total CO2 27.8 H (21.0-25.0) mmol/L ABG O2 Saturation 97.0 (95.0-98.0) % ABG O2 Content 13.1 L (15.0-23.0) %vol ABG Base Excess 5.9 mm/L ABG Hemoglobin 9.7 L (12.0-16.0) g/dL ABG Oxyhemoglobin 95.3 % ABG Carboxyhemoglobin 1.1 (0.0-1.6) % ABG Methemoglobin 0.7 % Woody Test A-line O2 Delivery Device Ventilator Oxygen Flow Rate L Sodium (140-148) mmol/L Potassium (3.6-5.2) mmol/L Chloride (100-108) mmol/L Carbon Dioxide (21-32) mmol/L Anion Gap (5.0-14.0) mmol/L BUN (7-18) mg/dL Creatinine (0.6-1.0) mg/dL Est Cr Clr Drug Dosing mL/min Estimated GFR (MDRD) (>60) Glucose (74-106) mg/dL Calcium (8.5-10.1) mg/dL Phosphorus (2.5-4.9) mg/dL Magnesium (1.8-2.4) mg/dL Total Bilirubin (0.2-1.0) mg/dL AST (15-37) U/L ALT (12-78) U/L Alkaline Phosphatase (46-116) U/L NT-Pro-B Natriuret Pep (5-450) pg/mL Total Protein (6.4-8.2) g/dL Albumin (3.4-5.0) g/dL Globulin (2.3-3.5) g/dL Albumin/Globulin Ratio (1.2-2.2) Joseph Results Last 24 Hours: Microbiology 09/17/18 05:06 Gram Stain - Final Endotrachael Aspirate 09/12/18 12:57 AFB Specimen Processing Tissue - Final Bronchial Aspirate - Mixed Acid Fast Bacilli Smear - Final Acid Fast Bacilli Culture - Preliminary 09/14/18 07:25 AFB Specimen Processing Tissue - Final Transbronchial Aspirate Acid Fast Bacilli Smear - Final Acid Fast Bacilli Culture - Preliminary 09/14/18 07:40 Gram Stain - Final Bronchial Aspirate Respiratory Culture - Final Yeast Isolated 09/13/18 10:20 Gram Stain - Final Other - Bronchial Wound Culture - Final Yeast Isolated Anaerobic Culture - Final NO GROWTH AFTER 3 DAYS Med Orders - Current: Current Medications Acetylcysteine (Mucomyst 20%) 200 mg NEB QIDRT [facility] Last Admin: 09/17/18 07:19 Dose: 200 mg Albuterol (Proventil Neb Soln) 2.5 mg NEB Q4H PRN PRN Reason: Dyspnea Albuterol/Ipratropium (Duoneb 3.0-0.5 Mg/3 Ml) 3 ml NEB QIDRT [facility] Last Admin: 09/17/18 07:19 Dose: 3 ml Furosemide (Lasix) 40 mg IV Q12H [facility] Stop: 09/17/18 21:01 Hydralazine HCl (Apresoline) 5 mg IVPUSH Q4H PRN PRN Reason: Hypertension Last Admin: 09/10/18 15:44 Dose: 5 mg Hydromorphone HCl (Dilaudid) 0.5 mg IVPUSH Q2H PRN PRN Reason: Pain Last Admin: 09/17/18 04:17 Dose: 0.5 mg Hydroxyzine HCl (Vistaril) 50 mg IM Q4H PRN PRN Reason: Pain Heparin Sodium (Porcine) 5,000 (units/ Sodium Chloride) 501 mls @ 5 mls/hr IV ASDIRECTED [facility] Last Admin: 09/16/18 14:00 Dose: 5 mls/hr Heparin Sodium (Porcine) 5,000 (units/ Sodium Chloride) 501 mls @ 5 mls/hr IV ASDIRECTED [facility] Last Admin: 09/16/18 14:02 Dose: 5 mls/hr Propofol (Diprivan 100 Ml) 100 mls @ 1.361 mls/hr IV TITRATE [facility]; Protocol Last Titration: 09/17/18 03:30 Dose: 25 mcg/kg/min, 6.804 mls/hr Sodium Chloride (Normal Saline) 1,000 mls @ 0 mls/hr IV ASDIRECTED [facility] Last Admin: 09/15/18 16:07 Dose: 12.5 mls/hr Multivitamins/Minerals 10 ml/Chromium/Copper/Manganese/Seleni/Zn 1 ml/ Amino Ac/ Electrol/Dextrose/Calcium 1,011 mls @ 62 mls/hr IV .BY DURATION [facility] Last Admin: 09/16/18 17:32 Dose: 62 mls/hr Amino Ac/Electrol/Dextrose/Calcium (Clinimix E 09/28) 1,000 mls @ 62 mls/hr IV .BY DURATION [facility] Last Admin: 09/16/18 01:02 Dose: 62 mls/hr Meropenem 500 mg/ Sodium (Chloride) 25 mls @ 50 mls/hr IV Q8H [facility] Last Admin: 09/17/18 06:29 Dose: 50 mls/hr Lactated Ringer's (Ringers, Lactated) 1,000 mls @ 25 mls/hr IV ASDIRECTED [facility] Last Admin: 09/17/18 05:17 Dose: 25 mls/hr Fluconazole/Sodium Chloride (400 mg/ Premix) 200 mls @ 100 mls/hr IV Q24H [facility] Last Admin: 09/16/18 20:01 Dose: 100 mls/hr Potassium Chloride 40 meq/ (Premix) 100 mls @ 25 mls/hr IV ONETIME ONE Stop: 09/17/18 11:59 Last Admin: 09/17/18 08:43 Dose: 25 mls/hr Magnesium Sulfate 2 gm/ Premix 50 mls @ 25 mls/hr IV Q6H [facility] Stop: 09/19/18 05:59 Ketoconazole (Nizoral 2% Crm) 0 gm TOP TID [facility] Lorazepam (Ativan) 0.5 mg IVPUSH Q3H PRN PRN Reason: AGITATION Last Admin: 09/05/18 03:50 Dose: 0.25 mg Metoprolol Tartrate (Lopressor) 2.5 mg IVPUSH Q4H PRN PRN Reason: Hypertension Last Admin: 09/17/18 01:24 Dose: 2.5 mg Naloxone HCl (Narcan) 0.1 mg IV ASDIRECTED PRN PRN Reason: decreased respiratory rate Pantoprazole Sodium (Protonix Iv) 40 mg IV Q24H [facility] Last Admin: 09/16/18 22:21 Dose: 40 mg Discontinued Medications Acetaminophen (Tylenol) 650 mg PO Q4H PRN PRN Reason: Pain (Mild 1-3)/fever Acetaminophen (Tylenol) 650 mg RECTAL Q4H PRN PRN Reason: Mild pain/fever Albuterol (Proventil Neb Soln) 2.5 mg NEB Q4H PRN PRN Reason: Shortness Of Breath/wheezing Albuterol/Ipratropium (Duoneb 3.0-0.5 Mg/3 Ml) 3 ml INH PREPRO ONE Stop: 09/03/18 17:01 Last Admin: 09/03/18 16:25 Dose: 3 ml Albuterol/Ipratropium (Duoneb 3.0-0.5 Mg/3 Ml) 3 ml NEB QID [facility] Last Admin: 09/13/18 21:11 Dose: 3 ml Aztreonam (Azactam) Confirm Administered Dose 1 gm .ROUTE .STK-MED ONE Stop: 09/03/18 21:44 Last Admin: 09/03/18 22:15 Dose: Not Given Benazepril HCl (Lotensin) 40 mg PO ONETIME ONE Stop: 09/03/18 10:41 Last Admin: 09/03/18 11:00 Dose: 40 mg Bupivacaine HCl (Marcaine 0.5%) Confirm Administered Dose 50 ml .ROUTE .STK-MED ONE Stop: 09/07/18 06:48 Last Admin: 09/07/18 10:53 Dose: 18 ml Bupivacaine HCl (Marcaine 0.5%) Confirm Administered Dose 50 ml .ROUTE .STK-MED ONE Stop: 09/11/18 09:07 Last Admin: 09/11/18 10:49 Dose: 2 ml Ropivacaine 22 ml/Dexamethasone 8 mg/Epinephrine HCl 0.4 mg/ Sodium Chloride 55.6 ml 0 ml NERVRT ASDIRECTED [facility] Ropivacaine 22 ml/Dexamethasone 8 mg/Epinephrine HCl 0.4 mg/ Sodium Chloride 55.6 ml 0 ml NERVRT ASDIRECTED [facility] Last Admin: 09/04/18 14:03 Dose: 80 syringe Ropivacaine 22 ml/Dexamethasone 8 mg/Epinephrine HCl 0.4 mg/ Sodium Chloride 55.6 ml 0 ml NERVRT ASDIRECTED [facility] Last Admin: 09/07/18 11:07 Dose: 80 syringe Dexamethasone (Dexamethasone) Confirm Administered Dose 4 mg .ROUTE .STK-MED ONE Stop: 09/03/18 14:41 Dexamethasone (Dexamethasone) Confirm Administered Dose 4 mg .ROUTE .STK-MED ONE Stop: 09/04/18 09:47 Fentanyl (Sublimaze) 25 mcg IVPUSH ONETIME ONE Stop: 09/03/18 13:57 Last Admin: 09/03/18 14:16 Dose: 25 mcg Fentanyl (Sublimaze) 25 mcg IVPUSH Q2H PRN PRN Reason: Pain (severe 7-10) Fentanyl (Sublimaze) Confirm Administered Dose 250 mcg .ROUTE .STK-MED ONE Stop: 09/03/18 14:41 Fentanyl (Sublimaze) Confirm Administered Dose 250 mcg .ROUTE .STK-MED ONE Stop: 09/04/18 09:46 Fentanyl (Sublimaze) Confirm Administered Dose 250 mcg .ROUTE .STK-MED ONE Stop: 09/04/18 13:57 Fentanyl (Sublimaze) Confirm Administered Dose 100 mcg .ROUTE .STK-MED ONE Stop: 09/11/18 10:36 Furosemide (Lasix) 20 mg IVPUSH ONETIME ONE Stop: 09/04/18 15:10 Last Admin: 09/04/18 15:18 Dose: 20 mg Furosemide (Lasix) 40 mg IV ONETIME ONE Stop: 09/06/18 08:16 Last Admin: 09/06/18 08:26 Dose: 40 mg Furosemide (Lasix) 20 mg IV Q12H [facility] Stop: 09/07/18 20:01 Last Admin: 09/07/18 20:10 Dose: 20 mg Furosemide (Lasix) 20 mg IVPUSH Q12H [facility] Stop: 09/08/18 19:01 Last Admin: 09/08/18 19:50 Dose: 20 mg Furosemide (Lasix) 20 mg IVPUSH ONETIME ONE Stop: 09/09/18 07:01 Last Admin: 09/09/18 08:14 Dose: 20 mg Furosemide (Lasix) 20 mg IVPUSH ONETIME ONE Stop: 09/09/18 11:01 Last Admin: 09/09/18 12:38 Dose: 20 mg Furosemide (Lasix) 20 mg IVPUSH ONETIME ONE Stop: 09/09/18 20:01 Furosemide (Lasix) 20 mg IV Q8H [facility] Stop: 09/11/18 00:31 Last Admin: 09/10/18 23:50 Dose: 20 mg Furosemide (Lasix) 20 mg IV Q8H [facility] Stop: 09/12/18 00:01 Last Admin: 09/11/18 23:34 Dose: 20 mg Furosemide (Lasix) 20 mg IVPUSH Q8H [facility] Stop: 09/13/18 02:31 Last Admin: 09/13/18 02:39 Dose: 20 mg Furosemide (Lasix) 20 mg IVPUSH Q8H [facility] Stop: 09/14/18 02:31 Last Admin: 09/14/18 02:29 Dose: 20 mg Furosemide (Lasix) 40 mg IVPUSH ONETIME ONE Stop: 09/14/18 10:01 Last Admin: 09/14/18 13:28 Dose: 40 mg Furosemide (Lasix) 20 mg IVPUSH BID [facility] Furosemide (Lasix) 20 mg IVPUSH ONETIME ONE Stop: 09/15/18 06:34 Last Admin: 09/15/18 06:48 Dose: 20 mg Furosemide (Lasix) 40 mg IVPUSH Q8H [facility] Stop: 09/15/18 20:31 Last Admin: 09/15/18 20:39 Dose: 40 mg Furosemide (Lasix) 40 mg IV BID [facility] Stop: 09/16/18 21:01 Last Admin: 09/16/18 21:19 Dose: 40 mg Gentamicin Sulfate (Gentamicin) 1 mg IV .Pharmacy to Dose [facility] Stop: 09/08/18 14:31 Glycopyrrolate (Robinul) Confirm Administered Dose 1 mg .ROUTE .STK-MED ONE Stop: 09/03/18 14:41 Glycopyrrolate (Robinul) Confirm Administered Dose 1 mg .ROUTE .STK-MED ONE Stop: 09/04/18 09:47 Heparin Sodium (Porcine) (Heparin Sodium) Confirm Administered Dose 5,000 units .ROUTE .STK-MED ONE Stop: 09/03/18 18:32 Heparin Sodium (Porcine) (Heparin Lock Flush 100 Units/Ml) Confirm Administered Dose 500 units .ROUTE .STK-MED ONE Stop: 09/04/18 13:14 Heparin Sodium (Porcine) (Heparin Lock Flush 100 Units/Ml) Confirm Administered Dose 1,000 units .ROUTE .STK-MED ONE Stop: 09/11/18 09:07 Last Admin: 09/11/18 10:58 Dose: 1,000 units Heparin Sodium (Porcine) (Heparin Lock Flush 100 Units/Ml) Confirm Administered Dose 500 units .ROUTE .STK-MED ONE Stop: 09/11/18 10:44 Last Admin: 09/11/18 10:58 Dose: 500 units Hydromorphone HCl (Dilaudid) 0.5 mg IVPUSH ONETIME ONE Stop: 09/03/18 10:48 Last Admin: 09/03/18 11:00 Dose: 0.5 mg Hydromorphone HCl (Dilaudid) 0.5 mg IVPUSH ONETIME ONE Stop: 09/03/18 11:22 Last Admin: 09/03/18 11:25 Dose: 0.5 mg Hydromorphone HCl (Dilaudid) 0.5 mg IVPUSH ONETIME ONE Stop: 09/03/18 12:10 Last Admin: 09/03/18 12:12 Dose: 0.5 mg Hydromorphone HCl (Dilaudid) 0.5 mg IVPUSH ONETIME ONE Stop: 09/03/18 12:40 Last Admin: 09/03/18 12:44 Dose: 0.5 mg Hydromorphone HCl (Dilaudid) 1 mg IVPUSH ONETIME ONE Stop: 09/03/18 12:57 Last Admin: 09/03/18 13:00 Dose: 1 mg Hydromorphone HCl (Dilaudid Dismantler 15 Mg In Ns 30 Ml) 0 mg IV ASDIRECTED PRN; Protocol PRN Reason: 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 Last Admin: 09/09/18 05:52 Dose: 15 mg Sodium Chloride (Normal Saline) 1,000 mls @ 1,000 mls/hr IV .BOLUS ONE Stop: 09/03/18 12:17 Last Admin: 09/03/18 11:25 Dose: 1,000 mls/hr Piperacillin/Tazobactam/ (Dextrose 4.5 gm/ Premix) 100 mls @ 200 mls/hr IV ONETIME ONE Stop: 09/03/18 13:29 Last Admin: 09/03/18 13:04 Dose: 200 mls/hr Sodium Chloride (Normal Saline) 1,000 mls @ 500 mls/hr IV ASDIRECTED [facility] Last Admin: 09/03/18 13:00 Dose: 500 mls/hr Lactated Ringer's (Ringers, Lactated) 1,000 mls @ 125 mls/hr IV ASDIRECTED [facility] Last Admin: 09/03/18 16:07 Dose: 125 mls/hr Aztreonam 2 gm/ Sodium (Chloride) 100 mls @ 200 mls/hr IV NOW ONE Stop: 09/03/18 15:29 Last Admin: 09/03/18 14:56 Dose: 200 mls/hr Meropenem 500 mg/ Sodium (Chloride) 50 mls @ 100 mls/hr IV ONCALL ONE Stop: 09/03/18 17:29 Last Admin: 09/03/18 16:25 Dose: 100 mls/hr Piperacillin/Tazobactam/ (Dextrose 3.375 gm/ Premix) 50 mls @ 100 mls/hr IV Q6H [facility] Last Admin: 09/03/18 22:15 Dose: Not Given Sodium Chloride (Normal Saline) Confirm Administered Dose 500 mls @ as directed .ROUTE .STK-MED ONE Stop: 09/03/18 18:33 Aztreonam/Dextrose 1 gm/ (Premix) 50 mls @ 100 mls/hr IV Q8HR [facility] Meropenem 500 mg/ Sodium (Chloride) 50 mls @ 100 mls/hr IV Q8H [facility] Last Admin: 09/10/18 05:17 Dose: 100 mls/hr Sodium Chloride (Normal Saline) Confirm Administered Dose 50 mls @ as directed .ROUTE .STK-MED ONE Stop: 09/03/18 22:01 Last Admin: 09/03/18 22:21 Dose: Not Given Aztreonam/Dextrose 1 gm/ (Premix) 50 mls @ 100 mls/hr IV Q8H [facility] Last Admin: 09/04/18 07:30 Dose: Not Given Dextrose/Lactated Ringer's (Dextrose 5%-Lactated Ringers) 1,000 mls @ 100 mls/ hr IV ASDIRECTED PRN PRN Reason: Hypotension Dextrose/Lactated Ringer's (Dextrose 5%-Lactated Ringers) 1,000 mls @ 100 mls/ hr IV ASDIRECTED [facility] Last Admin: 09/05/18 02:13 Dose: 100 mls/hr Lactated Ringer's (Ringers, Lactated) 1,000 mls @ 100 mls/hr IV ASDIRECTED [facility] Last Admin: 09/04/18 04:20 Dose: 100 mls/hr Lactated Ringer's (Ringers, Lactated) 500 mls @ 500 mls/hr IV .BOLUS [facility] Last Admin: 09/04/18 01:10 Dose: 500 mls/hr Lactated Ringer's (Ringers, Lactated) 500 mls @ 500 mls/hr IV .BOLUS [facility] Last Admin: 09/04/18 03:13 Dose: 500 mls/hr Propofol (Diprivan 100 Ml) 100 mls @ 1.361 mls/hr IV TITRATE [facility]; Protocol Last Titration: 09/04/18 07:52 Dose: 14 mcg/kg/min, 3.81 mls/hr Propofol (Diprivan 100 Ml) Confirm Administered Dose 100 mls @ as directed .ROUTE .ST-MED ONE Stop: 09/04/18 03:45 Last Admin: 09/04/18 03:59 Dose: Not Given Lactated Ringer's (Ringers, Lactated) 500 mls @ 999 mls/hr IV .BOLUS [facility]ED Last Admin: 09/04/18 06:10 Dose: 999 mls/hr Aztreonam/Dextrose 1 gm/ (Premix) 50 mls @ 100 mls/hr IV Q8H [facility] Last Admin: 09/07/18 08:15 Dose: 100 mls/hr Lactated Ringer's (Ringers, Lactated) 500 mls @ 500 mls/hr IV ASDIRECTED [facility] Last Admin: 09/04/18 21:04 Dose: 500 mls/hr Lactated Ringer's (Ringers, Lactated) Confirm Administered Dose 1,000 mls @ as directed .ROUTE .ST-MED ONE Stop: 09/04/18 13:11 Lactated Ringer's (Ringers, Lactated) Confirm Administered Dose 1,000 mls @ as directed .ROUTE .STK-MED ONE Stop: 09/04/18 13:11 Sodium Chloride (Normal Saline) Confirm Administered Dose 10 mls @ as directed .ROUTE .[facility]-MED ONE Stop: 09/04/18 13:15 Magnesium Sulfate 2 gm/ Premix 50 mls @ 25 mls/hr IV Q6H [facility] Stop: 09/06/18 11:59 Last Admin: 09/06/18 10:17 Dose: 25 mls/hr Lactated Ringer's (Ringers, Lactated) 500 mls @ 500 mls/hr IV ASDIRECTED [facility] Stop: 09/04/18 17:46 Lactated Ringer's (Ringers, Lactated) 500 mls @ 500 mls/hr IV ONETIME ONE Stop: 09/04/18 19:29 Last Admin: 09/04/18 18:37 Dose: 500 mls/hr Lactated Ringer's (Ringers, Lactated) 500 mls @ 1,000 mls/hr IV ONETIME ONE Stop: 09/04/18 23:30 Last Admin: 09/04/18 23:18 Dose: 1,000 mls/hr Lactated Ringer's (Ringers, Lactated) 500 mls @ 1,000 mls/hr IV ONETIME ONE Stop: 09/05/18 01:44 Last Admin: 09/05/18 01:15 Dose: 1,000 mls/hr Lactated Ringer's (Ringers, Lactated) 1,000 mls @ 150 mls/hr IV ASDIRECTED [facility] Last Admin: 09/05/18 02:13 Dose: 150 mls/hr Lactated Ringer's (Ringers, Lactated) 500 mls @ 1,000 mls/hr IV ONETIME ONE Stop: 09/05/18 03:38 Last Admin: 09/05/18 03:15 Dose: 1,000 mls/hr Multivitamins/Minerals 10 ml/Chromium/Copper/Manganese/Seleni/Zn 1 ml/ Amino Ac/ Electrol/Dextrose/Calcium 2,011 mls @ 82 mls/hr IV .BY DURATION [facility] Stop: 09/05/18 13:25 Last Admin: 09/05/18 13:32 Dose: Not Given Amino Ac/Electrol/Dextrose/Calcium (Clinimix E 09/23) 2,000 mls @ 82 mls/hr IV .BY DURATION [facility] Stop: 09/05/18 13:25 Vancomycin HCl 1 gm/ Sodium (Chloride) 250 mls @ 167 mls/hr IV Q24H [facility] Last Admin: 09/05/18 12:34 Dose: 167 mls/hr Sodium Chloride (Normal Saline) 1,000 mls @ 50 mls/hr IV ASDIRECTED [facility] Last Admin: 09/05/18 12:51 Dose: 50 mls/hr Multivitamins/Minerals 10 ml/Chromium/Copper/Manganese/Seleni/Zn 1 ml/ Amino Ac/ Electrol/Dextrose/Calcium 2,011 mls @ 82 mls/hr IV .BY DURATION [facility] Stop: 09/08/18 13:20 Last Admin: 09/07/18 15:09 Dose: 82 mls/hr Amino Ac/Electrol/Dextrose/Calcium (Clinimix E 09/23) 2,000 mls @ 82 mls/hr IV .BY DURATION [facility] Stop: 09/08/18 13:20 Vancomycin HCl 1 gm/ Sodium (Chloride) 250 mls @ 167 mls/hr IV Q24H [facility] Last Admin: 09/06/18 12:00 Dose: 167 mls/hr Sodium Chloride (Normal Saline) 500 mls @ 500 mls/hr IV ASDIRECTED ONE Stop: 09/05/18 16:29 Last Admin: 09/05/18 15:40 Dose: 500 mls/hr Sodium Chloride (Normal Saline) 1,000 mls @ 100 mls/hr IV ASDIRECTED [facility] Last Admin: 09/07/18 07:31 Dose: 100 mls/hr Potassium Phosphate 20 mmole/ (Sodium Chloride) 106.6667 mls @ 35 mls/hr IV Q3H [facility] Stop: 09/07/18 17:29 Last Admin: 09/07/18 15:01 Dose: 35 mls/hr Albumin Human (Albumin 25%) 25 gm in 100 mls @ 25 mls/hr IV DAILY [facility] Stop: 09/09/18 12:59 Last Admin: 09/09/18 08:25 Dose: 25 mls/hr Albumin Human (Albumin 25%) 25 gm in 100 mls @ 25 mls/hr IV Q24H [facility] Stop: 09/09/18 17:59 Last Admin: 09/09/18 14:32 Dose: 25 mls/hr Aztreonam 1 gm/ Sodium (Chloride) 50 mls @ 100 mls/hr IV Q8H [facility] Last Admin: 09/08/18 09:41 Dose: 100 mls/hr Vancomycin HCl 1 gm/ Sodium (Chloride) 250 mls @ 167 mls/hr IV Q18H [facility] Last Admin: 09/09/18 18:42 Dose: 167 mls/hr Sodium Chloride (Normal Saline) 1,000 mls @ 999 mls/hr IV .BOLUS ONE Stop: 09/07/18 17:39 Last Admin: 09/07/18 17:26 Dose: 999 mls/hr Potassium Acetate 40 meq/ (Sodium Chloride) 120 mls @ 30 mls/hr IV ONETIME ONE Stop: 09/08/18 13:59 Last Admin: 09/08/18 09:44 Dose: 30 mls/hr Sodium Chloride (Normal Saline) 100 mls @ 3 mls/sec IV ASDIRECTED [facility] Stop: 09/08/18 15:00 Last Admin: 09/08/18 14:17 Dose: 3 mls/sec Azithromycin 500 mg/ Sodium (Chloride) 250 mls @ 250 mls/hr IV Q24H [facility] Last Admin: 09/09/18 15:27 Dose: 250 mls/hr Gentamicin Sulfate 228 mg/ (Sodium Chloride) 105.7 mls @ 100 mls/hr IV ONETIME ONE Stop: 09/08/18 17:03 Last Admin: 09/08/18 16:19 Dose: 100 mls/hr Potassium Phosphate 15 mmole/ (Sodium Chloride) 105 mls @ 55 mls/hr IV Q2H [facility] Stop: 09/09/18 12:55 Last Admin: 09/09/18 15:27 Dose: 55 mls/hr Gentamicin Sulfate 228 mg/ (Sodium Chloride) 105.7 mls @ 100 mls/hr IV Q36H [facility] Last Admin: 09/10/18 03:55 Dose: 100 mls/hr Sodium Chloride (Normal Saline) 500 mls @ 999 mls/hr IV .BOLUS ONE Stop: 09/09/18 16:34 Last Admin: 09/09/18 16:18 Dose: 999 mls/hr Sodium Chloride (Normal Saline) 500 mls @ 999 mls/hr IV .BOLUS ONE Stop: 09/09/18 17:35 Last Admin: 09/09/18 17:18 Dose: 999 mls/hr Sodium Chloride (Normal Saline) 1,000 mls @ 125 mls/hr IV ASDIRECTED [facility] Last Admin: 09/10/18 01:41 Dose: 125 mls/hr Lactated Ringer's (Ringers, Lactated) 1,000 mls @ 125 mls/hr IV ASDIRECTED [facility] Last Admin: 09/11/18 01:06 Dose: 125 mls/hr Gentamicin Sulfate 228 mg/ (Sodium Chloride) 55.7 mls @ 55 mls/hr IV Q36H [facility] Last Admin: 09/14/18 16:49 Dose: 55 mls/hr Azithromycin 500 mg/ Dextrose/ (Water) 250 mls @ 250 mls/hr IV Q24H [facility] Stop: 09/17/18 17:00 Last Admin: 09/14/18 15:42 Dose: 250 mls/hr Vancomycin HCl 1 gm/ Dextrose/ (Water) 250 mls @ 167 mls/hr IV Q24H [facility] Last Admin: 09/13/18 17:48 Dose: 167 mls/hr Fluconazole/Sodium Chloride (200 mg/ Premix) 100 mls @ 100 mls/hr IV Q24H [facility] Last Admin: 09/15/18 20:38 Dose: 100 mls/hr Magnesium Sulfate 2 gm/ Premix 50 mls @ 25 mls/hr IV Q6H [facility] Stop: 09/13/18 05:59 Last Admin: 09/13/18 03:31 Dose: 25 mls/hr Potassium Phosphate 22.5 mmole (/ Dextrose/Water) 107.5 mls @ 27 mls/hr IV Q4H [facility] Stop: 09/11/18 17:29 Last Admin: 09/11/18 14:45 Dose: 27 mls/hr Lactated Ringer's (Ringers, Lactated) 1,000 mls @ 75 mls/hr IV ASDIRECTED [facility] Last Admin: 09/13/18 22:27 Dose: 75 mls/hr Sodium Chloride (Normal Saline) Confirm Administered Dose 10 mls @ as directed .ROUTE .STK-MED ONE Stop: 09/11/18 10:41 Potassium Chloride 40 meq/ (Premix) 100 mls @ 25 mls/hr IV ONETIME ONE Stop: 09/13/18 12:59 Last Admin: 09/13/18 09:31 Dose: 25 mls/hr Potassium Chloride 40 meq/ (Premix) 100 mls @ 25 mls/hr IV ONETIME ONE Stop: 09/13/18 17:59 Last Admin: 09/13/18 13:11 Dose: 25 mls/hr Albumin Human (Albumin 25%) 25 gm in 100 mls @ 25 mls/hr IV Q24H [facility] Stop: 09/16/18 11:59 Last Admin: 09/16/18 09:02 Dose: 25 mls/hr Albumin Human (Albumin 25%) 25 gm in 100 mls @ 25 mls/hr IV Q24H [facility] Stop: 09/16/18 15:59 Last Admin: 09/16/18 12:33 Dose: 25 mls/hr Potassium Chloride 40 meq/ (Premix) 100 mls @ 25 mls/hr IV ONETIME ONE Stop: 09/16/18 11:59 Last Admin: 09/16/18 08:02 Dose: 25 mls/hr Potassium Chloride 20 meq/ (Premix) 100 mls @ 50 mls/hr IV ONETIME ONE Stop: 09/16/18 13:59 Last Admin: 09/16/18 11:36 Dose: 50 mls/hr Iopamidol (Isovue-300 (61%)) 100 ml IV . DIRECTED PRN PRN Reason: RADIOLOGY EXAM Stop: 09/09/18 11:03 Last Admin: 09/08/18 14:16 Dose: 100 ml Lidocaine HCl (Xylocaine 2% Viscous) Confirm Administered Dose 15 ml .ROUTE .STK -MED ONE Stop: 09/12/18 11:15 Lidocaine HCl (Xylocaine 4% Top Soln) Confirm Administered Dose 50 ml .ROUTE .STK-MED ONE Stop: 09/12/18 11:15 Lidocaine HCl (Xylocaine 4% Top Soln) Confirm Administered Dose 50 ml .ROUTE .STK-MED ONE Stop: 09/14/18 06:57 Last Admin: 09/14/18 07:20 Dose: 20 ml Lidocaine HCl (Xylocaine-Mpf 1%) 5 ml INJECT ONETIME ONE Stop: 09/17/18 06:31 Last Admin: 09/17/18 06:52 Dose: 5 ml Lidocaine/Epinephrine (Xylocaine 1% With Epinephrine 1:100,000) Confirm Administered Dose 50 ml .ROUTE .STK-MED ONE Stop: 09/07/18 06:48 Last Admin: 09/07/18 10:54 Dose: 18 ml Lidocaine/Epinephrine (Xylocaine 1% With Epinephrine 1:100,000) Confirm Administered Dose 50 ml .ROUTE .STK-MED ONE Stop: 09/11/18 09:07 Last Admin: 09/11/18 10:49 Dose: 2 ml Lorazepam (Ativan) 0.5 mg IVPUSH Q4H PRN PRN Reason: Nausea/Vomiting Meropenem (Merrem) Confirm Administered Dose 1,000 mg .ROUTE .STK-MED ONE Stop: 09/03/18 17:54 Last Admin: 09/03/18 18:32 Dose: 3,500 mg Meropenem (Merrem) Confirm Administered Dose 1,000 mg .ROUTE .STK-MED ONE Stop: 09/03/18 18:04 Meropenem (Merrem) Confirm Administered Dose 2,000 mg .ROUTE .STK-MED ONE Stop: 09/03/18 18:18 Meropenem (Merrem) Confirm Administered Dose 500 mg .ROUTE .STK-MED ONE Stop: 09/07/18 06:48 Last Admin: 09/07/18 10:53 Dose: 500 mg Metoprolol Tartrate (Lopressor) 25 mg PO ONETIME ONE Stop: 09/03/18 10:41 Last Admin: 09/03/18 11:00 Dose: 25 mg Metoprolol Tartrate (Lopressor) 5 mg IVPUSH Q6H [facility] Last Admin: 09/08/18 09:25 Dose: 5 mg Metoprolol Tartrate (Lopressor) 2.5 mg IVPUSH Q6H [facility] Last Admin: 09/10/18 03:55 Dose: 2.5 mg Metoprolol Tartrate (Lopressor) Confirm Administered Dose 5 mg .ROUTE .STK-MED ONE Stop: 09/08/18 21:53 Last Admin: 09/08/18 22:19 Dose: Not Given Metoprolol Tartrate (Lopressor) 2.5 mg IVPUSH Q4H [facility] Last Admin: 09/11/18 21:25 Dose: Not Given Neostigmine Methylsulfate (Neostigmine) Confirm Administered Dose 5 mg .ROUTE .STK-MED ONE Stop: 09/03/18 14:41 Neostigmine Methylsulfate (Neostigmine) Confirm Administered Dose 5 mg .ROUTE .STK-MED ONE Stop: 09/04/18 09:47 Non-Formulary Medication (Total Parenteral Nutrition, Central) [facility] Stop: 09/12/18 13:31 Non-Formulary Medication (Total Parenteral Nutrition, Central) 0 ml IV [facility] Stop: 09/13/18 13:00 Ondansetron HCl (Zofran Odt) 4 mg PO Q6H PRN PRN Reason: Nausea able to take PO Ondansetron HCl (Zofran) 4 mg IV Q6H PRN PRN Reason: Nausea/Vomiting Ondansetron HCl (Zofran) Confirm Administered Dose 4 mg .ROUTE .STK-MED ONE Stop: 09/03/18 14:41 Ondansetron HCl (Zofran) Confirm Administered Dose 4 mg .ROUTE .STK-MED ONE Stop: 09/04/18 09:47 Pantoprazole Sodium (Protonix Iv) 40 mg IV Q12H [facility] Last Admin: 09/03/18 16:07 Dose: 40 mg Piperacillin Sod/Tazobactam Sod (Zosyn) 10.125 gm [facility] Stop: 09/04/18 15:00 Last Admin: 09/04/18 14:04 Dose: 10.125 gm Propofol (Diprivan 20 Ml) Confirm Administered Dose 200 mg .ROUTE .STK-MED ONE Stop: 09/03/18 14:41 Propofol (Diprivan 20 Ml) Confirm Administered Dose 200 mg .ROUTE .STK-MED ONE Stop: 09/04/18 09:47 Propofol (Diprivan 20 Ml) Confirm Administered Dose 200 mg .ROUTE .STK-MED ONE Stop: 09/06/18 07:01 Rocuronium [place] (Zemuron) Confirm Administered Dose 50 mg .ROUTE .STK-MED ONE Stop: 09/03/18 14:41 Rocuronium [place] (Zemuron) Confirm Administered Dose 50 mg .ROUTE .STK-MED ONE Stop: 09/04/18 09:47 Succinylcholine Chloride (Quelicin) Confirm Administered Dose 200 mg .ROUTE .STK -MED ONE Stop: 09/03/18 14:41 Succinylcholine Chloride (Quelicin) Confirm Administered Dose 200 mg .ROUTE .STK -MED ONE Stop: 09/04/18 09:47 Succinylcholine Chloride (Quelicin) Confirm Administered Dose 200 mg .ROUTE .STK -MED ONE Stop: 09/06/18 07:01 - Exam Quality Assessment: Supplemental Oxygen, Central Line/PICC, Urine Catheter, Restraints General: Alert, No Acute Distress. No: Oriented, Cooperative HEENT: Pupils Equal. No: Scleral Icterus Neck: Supple. No: Lymphadenopathy Lungs: Normal Respiratory Effort, Decreased Breath Sounds (both bases), Crackles (few at bases ). No: Wheezing Cardiovascular: Regular Rhythm, No Murmurs, Tachycardia GI/Abdominal Exam: Soft, No Distention, Abnormal Bowel Sounds (hypoactive) Extremities: Pedal Edema. No: Increased Warmth Skin: Warm, Dry Psy/Mental Status: Alert. No: Agitated - Problem List & Annotations (1) Diverticulitis of colon with perforation SNOMED Code(s): 14100637 Code(s): K57.20 - DVTRCLI OF LG INT W PERFORATION AND ABSCESS W/O BLEEDING Status: Acute Current Visit: Yes Qualifiers: Diverticulitis bleeding: without bleeding Qualified Code(s): K57.20 - Diverticulitis of large intestine with perforation and abscess without bleeding (2) Sepsis SNOMED Code(s): 58474547 Code(s): A41.9 - SEPSIS, UNSPECIFIED ORGANISM Status: Acute Current Visit : Yes Qualifiers: Sepsis type: sepsis due to unspecified organism Qualified Code(s): A41.9 - Sepsis, unspecified organism (3) Acute kidney injury SNOMED Code(s): 34284425, 38599400 Code(s): N17.9 - ACUTE KIDNEY FAILURE, UNSPECIFIED Status: Acute Current Visit: Yes (4) Leukopenia SNOMED Code(s): 38041211, 881029775 Code(s): D72.819 - DECREASED WHITE BLOOD CELL COUNT, UNSPECIFIED Status: Acute Current Visit: Yes Qualifiers: Leukopenia type: neutropenia Neutropenia type: other Qualified Code(s): D70.8 - Other neutropenia - Problem List Review Problem List Initiated/Reviewed/Updated: Yes - Plan Plan:: ASSESSMENT AND PLAN Acute respiratory failure with hypoxia and hypercapnia - CT scan abdomen and pelvis obtained 09/08 shows evidence of bilateral pulmonary infiltrates consistent with infection. Cultures to date have only grown out germ tube negative yeast from her respiratory specimens. Oxygenation has continued to improve with serial bronchoscopies. Secretions have nearly resolved. She did excellent with her weaning trial this morning and has been on SIMV much of the day. I would expect that with a little more diuresis we will able to successfully extubate her in one or 2 days. -furosemide 40 mg 2 doses today -Continue meropenem and fluconazole -Continue mechanical ventilation (no changes made today) -Light sedation -Soft wrist restraints -repeat weaning trial again in the morning (fluid limiting extubation at this time) Perforated sigmoid colon with sepsis - Initial surgical resection on 09/03 and Second Look laparotomy on 09/04. Sepsis has resolved. Cultures grew out Klebsiella, Escherichia coli and anaerobic bacteria. stable from this standpoint and she has completed adequate anabiotic for this infection. -Pain control as indicated -TPN Anemia of critical illness - hemoglobin now stable with no evidence for bleeding. -Transfuse if less than 7 since she is currently hemodynamically stable and oxygenating well Acute kidney injury - renal function back to normal and stable. She does have an elevated BUN out of proportion to her creatinine. -Management as above -Repeat labs in the morning Mixed delirium - She is is alert and will track but does not follow commands at this time. -Symptomatically management and treatment of the above conditions -Minimize sedation as able Maintenance issues - - DVT prophylaxis - mechanical - GI prophylaxis - PPI - Nutrition - nothing by mouth - Rubin catheter - placed for strict intake and output monitoring and a critical patient Disposition - discharge plan depending on needs at the time of discharge Santana Cunningham M.D.
[2018-09-17] MEDS: Furosemide 40 MG/4 ML VIAL IV SCH ×2 (08:53→21:11)
[2018-09-17] MEDS: Ketoconazole 2% Crm 30 GM Tube TOP SCH ×3 (08:55→21:17)
[2018-09-17] MEDS: hydrALAZINE 20 MG/ML SDV IVPUSH PRN (09:02)
[2018-09-17] MEDS: Magnesium Sulfate/Water 2 GM in Premix Bag 1 BAG IV SCH ×3 (10:09→22:07)
[2018-09-17] MEDS: 1: AA 5%/Calcium/D20W/Lytes 1,000 ML with MVI, Adult with Vitamin K 10 ML, Chromium/Copp IV SCH ×3 (10:26)
[2018-09-17] MEDS: Dimethicone 20%/Zinc Oxide 25% 56 GM Spray Bottle TOP PRN ×2 (13:50→21:34)
[2018-09-17] MEDS: Fluconazole/Normal Saline 400 MG in Premix Bag 1 BAG IV SCH (19:54)
[2018-09-17] MEDS: Pantoprazole 40 MG Vial IV SCH (22:06)
[2018-09-18] MEDS: HYDROmorphone 0.5 MG/0.5 ML Syringe IVPUSH PRN ×5 (00:51→23:34)
[2018-09-18] MEDS: 1: AA 5%/Calcium/D20W/Lytes 1,000 ML with MVI, Adult with Vitamin K 10 ML, Chromium/Copp IV SCH ×6 (02:08→17:08)
[2018-09-18] MEDS: Magnesium Sulfate/Water 2 GM in Premix Bag 1 BAG IV SCH ×4 (04:24→22:03)
[2018-09-18] MEDS: Dimethicone 20%/Zinc Oxide 25% 56 GM Spray Bottle TOP PRN ×2 (05:01→14:17)
[2018-09-18] MEDS: MEROPENEM IV SCH ×3 (05:10→22:03)
[2018-09-18] MEDS: SODIUM CHLORIDE 0.9% IV SCH ×3 (05:10→22:03)
--- NOTE | 2018-09-18 05:54 | CRLCR ---
Indication: Intubation Technique: Chest 1 view Comparison: September 17, 2018 Findings/Impression: Cardiovascular and mediastinum: Endotracheal tube is 2 cm above the pham. NG tube and central catheter are unchanged. Heart size remains normal. Lungs and pleural space: Stable bilateral pleural effusions with bibasilar atelectasis likely. Small patchy opacities in the upper lobes could represent pneumonia. No pneumothorax. No other changes. Bones and soft tissues: No acute findings. Dictated by Tohm Ramos MD @ 09/18/2018 5:53:22 AM Dictated by: Thom Ramos MD @ 09/18/2018 05:53:28 (Electronically Signed)
[2018-09-18] MEDS: Albuterol/Ipratropium 3.0-0.5 MG/3 ML Neb Soln NEB SCH ×4 (07:09→20:59)
[2018-09-18] MEDS: Acetylcysteine 20% 200 MG/ML 4 ML Nebulizer Soln SDV NEB SCH ×4 (07:09→20:59)
[2018-09-18] MEDS: Furosemide 40 MG/4 ML VIAL IV SCH ×2 (08:13→16:00)
[2018-09-18] MEDS: Ketoconazole 2% Crm 30 GM Tube TOP SCH ×3 (08:16→20:59)
[2018-09-18] MEDS ORDERED: Potassium Chloride Riders 40 MEQ in Premix Bag 1 BAG IV ONE (09:00)
[2018-09-18] MEDS: Metoprolol Tartrate 5 MG/5 ML SDV IVPUSH PRN ×3 (09:09→20:37)
[2018-09-18] MEDS: LORazepam 2 MG/ML SDV IVPUSH PRN ×5 (09:11→23:33)
--- NOTE | 2018-09-18 09:17 | PCM.PN ---
- General Info Date of Service: 09/18/18 Subjective Update: There were no acute events overnight. Patient rested well. She has been on CPAP for 2 hours prior to me evaluating her. She is alert and able to nod her head or shake her head to answer questions. She is able to provide a light squeeze on my fingers when requested today. She is able to wiggle fingers and toes. Heart rate and blood pressure have remained stable. Respiratory rate is only around 20. The patient was extubated this morning and has been stable on room air since that time. Respiratory cultures continued to grow germ tube negative yeast. Functional Status: Reports: Pain Controlled - Review of Systems General: Denies: Fever - Patient Data Vitals - Most Recent: Last Vital Signs Temp 36.3 C 09/18/18 07:00 Pulse 109 H 09/18/18 09:09 Resp 19 09/18/18 08:00 BP 170/77 H 09/18/18 09:09 Pulse Ox 100 09/18/18 08:00 Weight - Most Recent: 78.471 kg I&O - Last 24 Hours: Intake & Output 09/17/18 09/18/18 09/18/18 22:59 06:59 14:59 Intake Total 1743 1054 Output Total 1620 1570 255 Balance 123 -516 -255 Lab Results Last 24 Hours: Laboratory Results - last 24 hr 09/17/18 09/18/18 09/18/18 Range/Units 04:00 04:00 04:00 WBC 11.3 H (4.5-11.0) K/uL RBC 3.27 L (3.30-5.50) M/uL Hgb 10.5 L (12.0-15.0) g/dL Hct 31.9 L (36.0-48.0) % MCV 98 (80-98) fL MCH 32 H (27-31) pg MCHC 33 (32-36) % Plt Count 320 (150-400) K/uL Neut % (Auto) 86 H (36-66) % Lymph % (Auto) 3 L (24-44) % Early % (Auto) 10 H (2-6) % Eos % (Auto) 2 (2-4) % Baso % (Auto) 0 (0-1) % Puncture Site Cancelled ABG pH Cancelled ABG pCO2 Cancelled ABG pO2 Cancelled ABG HCO3 Cancelled ABG Total CO2 Cancelled ABG O2 Saturation Cancelled ABG O2 Content Cancelled ABG Base Excess Cancelled ABG Hemoglobin Cancelled ABG Oxyhemoglobin Cancelled ABG Carboxyhemoglobin Cancelled ABG Methemoglobin Cancelled Woody Test Cancelled O2 Delivery Device Cancelled Oxygen Flow Rate Cancelled Sodium 139 L (140-148) mmol/L Potassium 3.5 L (3.6-5.2) mmol/L Chloride 101 (100-108) mmol/L Carbon Dioxide 30 (21-32) mmol/L Anion Gap 11.5 (5.0-14.0) mmol/L BUN 43 H (7-18) mg/dL Creatinine 0.8 (0.6-1.0) mg/dL Est Cr Clr Drug Dosing 44.61 mL/min Estimated GFR (MDRD) > 60 (>60) Glucose 125 H (74-106) mg/dL Calcium 9.1 (8.5-10.1) mg/dL Phosphorus 4.1 (2.5-4.9) mg/dL Total Bilirubin 1.0 (0.2-1.0) mg/dL AST 62 H (15-37) U/L ALT 96 H (12-78) U/L Alkaline Phosphatase 251 H (46-116) U/L NT-Pro-B Natriuret Pep 9066 H (5-450) pg/mL Total Protein 5.8 L (6.4-8.2) g/dL Albumin 2.3 L (3.4-5.0) g/dL Globulin 3.5 (2.3-3.5) g/dL Albumin/Globulin Ratio 0.7 L (1.2-2.2) 09/18/18 Range/Units 06:10 WBC (4.5-11.0) K/uL RBC (3.30-5.50) M/uL Hgb (12.0-15.0) g/dL Hct (36.0-48.0) % MCV (80-98) fL MCH (27-31) pg MCHC (32-36) % Plt Count (150-400) K/uL Neut % (Auto) (36-66) % Lymph % (Auto) (24-44) % Early % (Auto) (2-6) % Eos % (Auto) (2-4) % Baso % (Auto) (0-1) % Puncture Site A-line ABG pH 7.465 H ABG pCO2 44.3 H ABG pO2 93.3 ABG HCO3 31.5 H ABG Total CO2 28.9 H ABG O2 Saturation 97.3 ABG O2 Content 13.5 L ABG Base Excess 7.3 ABG Hemoglobin 9.9 L ABG Oxyhemoglobin 95.8 ABG Carboxyhemoglobin 0.9 ABG Methemoglobin 0.6 Woody Test A-line O2 Delivery Device Ventilator Oxygen Flow Rate Sodium (140-148) mmol/L Potassium (3.6-5.2) mmol/L Chloride (100-108) mmol/L Carbon Dioxide (21-32) mmol/L Anion Gap (5.0-14.0) mmol/L BUN (7-18) mg/dL Creatinine (0.6-1.0) mg/dL Est Cr Clr Drug Dosing mL/min Estimated GFR (MDRD) (>60) Glucose (74-106) mg/dL Calcium (8.5-10.1) mg/dL Phosphorus (2.5-4.9) mg/dL Total Bilirubin (0.2-1.0) mg/dL AST (15-37) U/L ALT (12-78) U/L Alkaline Phosphatase (46-116) U/L NT-Pro-B Natriuret Pep (5-450) pg/mL Total Protein (6.4-8.2) g/dL Albumin (3.4-5.0) g/dL Globulin (2.3-3.5) g/dL Albumin/Globulin Ratio (1.2-2.2) Joseph Results Last 24 Hours: Microbiology 09/17/18 05:06 Gram Stain - Final Endotrachael Aspirate Respiratory Culture - Preliminary Med Orders - Current: Current Medications Acetylcysteine (Mucomyst 20%) 200 mg NEB QIDRT [facility] Last Admin: 09/18/18 07:09 Dose: 200 mg Albuterol (Proventil Neb Soln) 2.5 mg NEB Q4H PRN PRN Reason: Dyspnea Albuterol/Ipratropium (Duoneb 3.0-0.5 Mg/3 Ml) 3 ml NEB QIDRT [facility] Last Admin: 09/18/18 07:09 Dose: 3 ml Benazepril HCl (Lotensin) 40 mg NGTUBE DAILY [facility] Last Admin: 09/18/18 08:19 Dose: 40 mg Dimethicone/Zinc Oxide (Rash Relief-Zinc Oxide [place]) 0 gm TOP ASDIRECTED PRN PRN Reason: Inflammation Last Admin: 09/18/18 05:01 Dose: 5 spray Furosemide (Lasix) 40 mg IV Q8H [facility] Stop: 09/18/18 16:01 Last Admin: 09/18/18 08:13 Dose: 40 mg Hydralazine HCl (Apresoline) 5 mg IVPUSH Q4H PRN PRN Reason: Hypertension Last Admin: 09/17/18 09:02 Dose: 5 mg Hydromorphone HCl (Dilaudid) 0.5 mg IVPUSH Q2H PRN PRN Reason: Pain Last Admin: 09/18/18 05:10 Dose: 0.5 mg Hydroxyzine HCl (Vistaril) 50 mg IM Q4H PRN PRN Reason: Pain Heparin Sodium (Porcine) 5,000 (units/ Sodium Chloride) 501 mls @ 5 mls/hr IV ASDIRECTED [facility] Last Admin: 09/16/18 14:00 Dose: 5 mls/hr Heparin Sodium (Porcine) 5,000 (units/ Sodium Chloride) 501 mls @ 5 mls/hr IV ASDIRECTED [facility] Last Admin: 09/16/18 14:02 Dose: 5 mls/hr Sodium Chloride (Normal Saline) 1,000 mls @ 0 mls/hr IV ASDIRECTED [facility] Last Admin: 09/15/18 16:07 Dose: 12.5 mls/hr Multivitamins/Minerals 10 ml/Chromium/Copper/Manganese/Seleni/Zn 1 ml/ Amino Ac/ Electrol/Dextrose/Calcium 1,011 mls @ 62 mls/hr IV .BY DURATION [facility] Last Admin: 09/18/18 02:08 Dose: 62 mls/hr Amino Ac/Electrol/Dextrose/Calcium (Clinimix E 09/28) 1,000 mls @ 62 mls/hr IV .BY DURATION [facility] Last Admin: 09/17/18 10:26 Dose: 62 mls/hr Meropenem 500 mg/ Sodium (Chloride) 25 mls @ 50 mls/hr IV Q8H [facility] Last Admin: 09/18/18 05:10 Dose: 50 mls/hr Lactated Ringer's (Ringers, Lactated) 1,000 mls @ 25 mls/hr IV ASDIRECTED [facility] Last Admin: 09/17/18 05:17 Dose: 25 mls/hr Fluconazole/Sodium Chloride (400 mg/ Premix) 200 mls @ 100 mls/hr IV Q24H [facility] Last Admin: 09/17/18 19:54 Dose: 100 mls/hr Magnesium Sulfate 2 gm/ Premix 50 mls @ 25 mls/hr IV Q6H [facility] Stop: 09/19/18 05:59 Last Admin: 09/18/18 09:15 Dose: 25 mls/hr Potassium Chloride 40 meq/ (Premix) 100 mls @ 25 mls/hr IV ONETIME ONE Stop: 09/18/18 12:59 Last Admin: 09/18/18 08:34 Dose: 25 mls/hr Ketoconazole (Nizoral 2% Crm) 0 gm TOP TID [facility] Last Admin: 09/18/18 08:16 Dose: 1 applic Lorazepam (Ativan) 0.5 mg IVPUSH Q3H PRN PRN Reason: AGITATION Last Admin: 09/18/18 09:11 Dose: 0.5 mg Metoprolol Tartrate (Lopressor) 2.5 mg IVPUSH Q4H PRN PRN Reason: Hypertension Last Admin: 09/18/18 09:09 Dose: 2.5 mg Naloxone HCl (Narcan) 0.1 mg IV ASDIRECTED PRN PRN Reason: decreased respiratory rate Pantoprazole Sodium (Protonix Iv) 40 mg IV Q24H [facility] Last Admin: 09/17/18 22:06 Dose: 40 mg Discontinued Medications Acetaminophen (Tylenol) 650 mg PO Q4H PRN PRN Reason: Pain (Mild 1-3)/fever Acetaminophen (Tylenol) 650 mg RECTAL Q4H PRN PRN Reason: Mild pain/fever Albuterol (Proventil Neb Soln) 2.5 mg NEB Q4H PRN PRN Reason: Shortness Of Breath/wheezing Albuterol/Ipratropium (Duoneb 3.0-0.5 Mg/3 Ml) 3 ml INH PREPRO ONE Stop: 09/03/18 17:01 Last Admin: 09/03/18 16:25 Dose: 3 ml Albuterol/Ipratropium (Duoneb 3.0-0.5 Mg/3 Ml) 3 ml NEB QID [facility] Last Admin: 09/13/18 21:11 Dose: 3 ml Aztreonam (Azactam) Confirm Administered Dose 1 gm .ROUTE .STK-MED ONE Stop: 09/03/18 21:44 Last Admin: 09/03/18 22:15 Dose: Not Given Benazepril HCl (Lotensin) 40 mg PO ONETIME ONE Stop: 09/03/18 10:41 Last Admin: 09/03/18 11:00 Dose: 40 mg Bupivacaine HCl (Marcaine 0.5%) Confirm Administered Dose 50 ml .ROUTE .STK-MED ONE Stop: 09/07/18 06:48 Last Admin: 09/07/18 10:53 Dose: 18 ml Bupivacaine HCl (Marcaine 0.5%) Confirm Administered Dose 50 ml .ROUTE .STK-MED ONE Stop: 09/11/18 09:07 Last Admin: 09/11/18 10:49 Dose: 2 ml Ropivacaine 22 ml/Dexamethasone 8 mg/Epinephrine HCl 0.4 mg/ Sodium Chloride 55.6 ml 0 ml NERVRT ASDIRECTED [facility] Ropivacaine 22 ml/Dexamethasone 8 mg/Epinephrine HCl 0.4 mg/ Sodium Chloride 55.6 ml 0 ml NERVRT ASDIRECTED [facility] Last Admin: 09/04/18 14:03 Dose: 80 syringe Ropivacaine 22 ml/Dexamethasone 8 mg/Epinephrine HCl 0.4 mg/ Sodium Chloride 55.6 ml 0 ml NERVRT ASDIRECTED [facility] Last Admin: 09/07/18 11:07 Dose: 80 syringe Dexamethasone (Dexamethasone) Confirm Administered Dose 4 mg .ROUTE .STK-MED ONE Stop: 09/03/18 14:41 Dexamethasone (Dexamethasone) Confirm Administered Dose 4 mg .ROUTE .STK-MED ONE Stop: 09/04/18 09:47 Fentanyl (Sublimaze) 25 mcg IVPUSH ONETIME ONE Stop: 09/03/18 13:57 Last Admin: 09/03/18 14:16 Dose: 25 mcg Fentanyl (Sublimaze) 25 mcg IVPUSH Q2H PRN PRN Reason: Pain (severe 7-10) Fentanyl (Sublimaze) Confirm Administered Dose 250 mcg .ROUTE .STK-MED ONE Stop: 09/03/18 14:41 Fentanyl (Sublimaze) Confirm Administered Dose 250 mcg .ROUTE .STK-MED ONE Stop: 09/04/18 09:46 Fentanyl (Sublimaze) Confirm Administered Dose 250 mcg .ROUTE .STK-MED ONE Stop: 09/04/18 13:57 Fentanyl (Sublimaze) Confirm Administered Dose 100 mcg .ROUTE .STK-MED ONE Stop: 09/11/18 10:36 Furosemide (Lasix) 20 mg IVPUSH ONETIME ONE Stop: 09/04/18 15:10 Last Admin: 09/04/18 15:18 Dose: 20 mg Furosemide (Lasix) 40 mg IV ONETIME ONE Stop: 09/06/18 08:16 Last Admin: 09/06/18 08:26 Dose: 40 mg Furosemide (Lasix) 20 mg IV Q12H [facility] Stop: 09/07/18 20:01 Last Admin: 09/07/18 20:10 Dose: 20 mg Furosemide (Lasix) 20 mg IVPUSH Q12H [facility] Stop: 09/08/18 19:01 Last Admin: 09/08/18 19:50 Dose: 20 mg Furosemide (Lasix) 20 mg IVPUSH ONETIME ONE Stop: 09/09/18 07:01 Last Admin: 09/09/18 08:14 Dose: 20 mg Furosemide (Lasix) 20 mg IVPUSH ONETIME ONE Stop: 09/09/18 11:01 Last Admin: 09/09/18 12:38 Dose: 20 mg Furosemide (Lasix) 20 mg IVPUSH ONETIME ONE Stop: 09/09/18 20:01 Furosemide (Lasix) 20 mg IV Q8H [facility] Stop: 09/11/18 00:31 Last Admin: 09/10/18 23:50 Dose: 20 mg Furosemide (Lasix) 20 mg IV Q8H [facility] Stop: 09/12/18 00:01 Last Admin: 09/11/18 23:34 Dose: 20 mg Furosemide (Lasix) 20 mg IVPUSH Q8H [facility] Stop: 09/13/18 02:31 Last Admin: 09/13/18 02:39 Dose: 20 mg Furosemide (Lasix) 20 mg IVPUSH Q8H [facility] Stop: 09/14/18 02:31 Last Admin: 09/14/18 02:29 Dose: 20 mg Furosemide (Lasix) 40 mg IVPUSH ONETIME ONE Stop: 09/14/18 10:01 Last Admin: 09/14/18 13:28 Dose: 40 mg Furosemide (Lasix) 20 mg IVPUSH BID [facility] Furosemide (Lasix) 20 mg IVPUSH ONETIME ONE Stop: 09/15/18 06:34 Last Admin: 09/15/18 06:48 Dose: 20 mg Furosemide (Lasix) 40 mg IVPUSH Q8H [facility] Stop: 09/15/18 20:31 Last Admin: 09/15/18 20:39 Dose: 40 mg Furosemide (Lasix) 40 mg IV BID [facility] Stop: 09/16/18 21:01 Last Admin: 09/16/18 21:19 Dose: 40 mg Furosemide (Lasix) 40 mg IV Q12H [facility] Stop: 09/17/18 21:01 Last Admin: 09/17/18 21:11 Dose: 40 mg Gentamicin Sulfate (Gentamicin) 1 mg IV .Pharmacy to Dose [facility] Stop: 09/08/18 14:31 Glycopyrrolate (Robinul) Confirm Administered Dose 1 mg .ROUTE .STK-MED ONE Stop: 09/03/18 14:41 Glycopyrrolate (Robinul) Confirm Administered Dose 1 mg .ROUTE .STK-MED ONE Stop: 09/04/18 09:47 Heparin Sodium (Porcine) (Heparin Sodium) Confirm Administered Dose 5,000 units .ROUTE .STK-MED ONE Stop: 09/03/18 18:32 Heparin Sodium (Porcine) (Heparin Lock Flush 100 Units/Ml) Confirm Administered Dose 500 units .ROUTE .STK-MED ONE Stop: 09/04/18 13:14 Heparin Sodium (Porcine) (Heparin Lock Flush 100 Units/Ml) Confirm Administered Dose 1,000 units .ROUTE .STK-MED ONE Stop: 09/11/18 09:07 Last Admin: 09/11/18 10:58 Dose: 1,000 units Heparin Sodium (Porcine) (Heparin Lock Flush 100 Units/Ml) Confirm Administered Dose 500 units .ROUTE .STK-MED ONE Stop: 09/11/18 10:44 Last Admin: 09/11/18 10:58 Dose: 500 units Hydromorphone HCl (Dilaudid) 0.5 mg IVPUSH ONETIME ONE Stop: 09/03/18 10:48 Last Admin: 09/03/18 11:00 Dose: 0.5 mg Hydromorphone HCl (Dilaudid) 0.5 mg IVPUSH ONETIME ONE Stop: 09/03/18 11:22 Last Admin: 09/03/18 11:25 Dose: 0.5 mg Hydromorphone HCl (Dilaudid) 0.5 mg IVPUSH ONETIME ONE Stop: 09/03/18 12:10 Last Admin: 09/03/18 12:12 Dose: 0.5 mg Hydromorphone HCl (Dilaudid) 0.5 mg IVPUSH ONETIME ONE Stop: 09/03/18 12:40 Last Admin: 09/03/18 12:44 Dose: 0.5 mg Hydromorphone HCl (Dilaudid) 1 mg IVPUSH ONETIME ONE Stop: 09/03/18 12:57 Last Admin: 09/03/18 13:00 Dose: 1 mg Hydromorphone HCl (Dilaudid Sexer 15 Mg In Ns 30 Ml) 0 mg IV ASDIRECTED PRN; Protocol PRN Reason: 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 Last Admin: 09/09/18 05:52 Dose: 15 mg Sodium Chloride (Normal Saline) 1,000 mls @ 1,000 mls/hr IV .BOLUS ONE Stop: 09/03/18 12:17 Last Admin: 09/03/18 11:25 Dose: 1,000 mls/hr Piperacillin/Tazobactam/ (Dextrose 4.5 gm/ Premix) 100 mls @ 200 mls/hr IV ONETIME ONE Stop: 09/03/18 13:29 Last Admin: 09/03/18 13:04 Dose: 200 mls/hr Sodium Chloride (Normal Saline) 1,000 mls @ 500 mls/hr IV ASDIRECTED [facility] Last Admin: 09/03/18 13:00 Dose: 500 mls/hr Lactated Ringer's (Ringers, Lactated) 1,000 mls @ 125 mls/hr IV ASDIRECTED [facility] Last Admin: 09/03/18 16:07 Dose: 125 mls/hr Aztreonam 2 gm/ Sodium (Chloride) 100 mls @ 200 mls/hr IV NOW ONE Stop: 09/03/18 15:29 Last Admin: 09/03/18 14:56 Dose: 200 mls/hr Meropenem 500 mg/ Sodium (Chloride) 50 mls @ 100 mls/hr IV ONCALL ONE Stop: 09/03/18 17:29 Last Admin: 09/03/18 16:25 Dose: 100 mls/hr Piperacillin/Tazobactam/ (Dextrose 3.375 gm/ Premix) 50 mls @ 100 mls/hr IV Q6H [facility] Last Admin: 09/03/18 22:15 Dose: Not Given Sodium Chloride (Normal Saline) Confirm Administered Dose 500 mls @ as directed .ROUTE .STK-MED ONE Stop: 09/03/18 18:33 Aztreonam/Dextrose 1 gm/ (Premix) 50 mls @ 100 mls/hr IV Q8HR [facility] Meropenem 500 mg/ Sodium (Chloride) 50 mls @ 100 mls/hr IV Q8H [facility] Last Admin: 09/10/18 05:17 Dose: 100 mls/hr Sodium Chloride (Normal Saline) Confirm Administered Dose 50 mls @ as directed .ROUTE .[facility]-MED ONE Stop: 09/03/18 22:01 Last Admin: 09/03/18 22:21 Dose: Not Given Aztreonam/Dextrose 1 gm/ (Premix) 50 mls @ 100 mls/hr IV Q8H [facility] Last Admin: 09/04/18 07:30 Dose: Not Given Dextrose/Lactated Ringer's (Dextrose 5%-Lactated Ringers) 1,000 mls @ 100 mls/ hr IV ASDIRECTED PRN PRN Reason: Hypotension Dextrose/Lactated Ringer's (Dextrose 5%-Lactated Ringers) 1,000 mls @ 100 mls/ hr IV ASDIRECTED [facility] Last Admin: 09/05/18 02:13 Dose: 100 mls/hr Lactated Ringer's (Ringers, Lactated) 1,000 mls @ 100 mls/hr IV ASDIRECTED [facility] Last Admin: 09/04/18 04:20 Dose: 100 mls/hr Lactated Ringer's (Ringers, Lactated) 500 mls @ 500 mls/hr IV .BOLUS [facility] Last Admin: 09/04/18 01:10 Dose: 500 mls/hr Lactated Ringer's (Ringers, Lactated) 500 mls @ 500 mls/hr IV .BOLUS [facility] Last Admin: 09/04/18 03:13 Dose: 500 mls/hr Propofol (Diprivan 100 Ml) 100 mls @ 1.361 mls/hr IV TITRATE [facility]; Protocol Last Titration: 09/04/18 07:52 Dose: 14 mcg/kg/min, 3.81 mls/hr Propofol (Diprivan 100 Ml) Confirm Administered Dose 100 mls @ as directed .ROUTE .K-MED ONE Stop: 09/04/18 03:45 Last Admin: 09/04/18 03:59 Dose: Not Given Lactated Ringer's (Ringers, Lactated) 500 mls @ 999 mls/hr IV .BOLUS [facility] Last Admin: 09/04/18 06:10 Dose: 999 mls/hr Aztreonam/Dextrose 1 gm/ (Premix) 50 mls @ 100 mls/hr IV Q8H [facility] Last Admin: 09/07/18 08:15 Dose: 100 mls/hr Lactated Ringer's (Ringers, Lactated) 500 mls @ 500 mls/hr IV ASDIRECTED [facility] Last Admin: 09/04/18 21:04 Dose: 500 mls/hr Lactated Ringer's (Ringers, Lactated) Confirm Administered Dose 1,000 mls @ as directed .ROUTE .[facility]-MED ONE Stop: 09/04/18 13:11 Lactated Ringer's (Ringers, Lactated) Confirm Administered Dose 1,000 mls @ as directed .ROUTE .[facility]-MED ONE Stop: 09/04/18 13:11 Sodium Chloride (Normal Saline) Confirm Administered Dose 10 mls @ as directed .ROUTE .[facility] ONE Stop: 09/04/18 13:15 Magnesium Sulfate 2 gm/ Premix 50 mls @ 25 mls/hr IV Q6H [facility] Stop: 09/06/18 11:59 Last Admin: 09/06/18 10:17 Dose: 25 mls/hr Lactated Ringer's (Ringers, Lactated) 500 mls @ 500 mls/hr IV ASDIRECTED [facility] Stop: 09/04/18 17:46 Lactated Ringer's (Ringers, Lactated) 500 mls @ 500 mls/hr IV ONETIME ONE Stop: 09/04/18 19:29 Last Admin: 09/04/18 18:37 Dose: 500 mls/hr Lactated Ringer's (Ringers, Lactated) 500 mls @ 1,000 mls/hr IV ONETIME ONE Stop: 09/04/18 23:30 Last Admin: 09/04/18 23:18 Dose: 1,000 mls/hr Lactated Ringer's (Ringers, Lactated) 500 mls @ 1,000 mls/hr IV ONETIME ONE Stop: 09/05/18 01:44 Last Admin: 09/05/18 01:15 Dose: 1,000 mls/hr Lactated Ringer's (Ringers, Lactated) 1,000 mls @ 150 mls/hr IV ASDIRECTED [facility] Last Admin: 09/05/18 02:13 Dose: 150 mls/hr Lactated Ringer's (Ringers, Lactated) 500 mls @ 1,000 mls/hr IV ONETIME ONE Stop: 09/05/18 03:38 Last Admin: 09/05/18 03:15 Dose: 1,000 mls/hr Multivitamins/Minerals 10 ml/Chromium/Copper/Manganese/Seleni/Zn 1 ml/ Amino Ac/ Electrol/Dextrose/Calcium 2,011 mls @ 82 mls/hr IV .BY DURATION [facility] Stop: 09/05/18 13:25 Last Admin: 09/05/18 13:32 Dose: Not Given Amino Ac/Electrol/Dextrose/Calcium (Clinimix E 5/15) 2,000 mls @ 82 mls/hr IV .BY DURATION [facility] Stop: 09/05/18 13:25 Vancomycin HCl 1 gm/ Sodium (Chloride) 250 mls @ 167 mls/hr IV Q24H [facility] Last Admin: 09/05/18 12:34 Dose: 167 mls/hr Sodium Chloride (Normal Saline) 1,000 mls @ 50 mls/hr IV ASDIRECTED [facility] Last Admin: 09/05/18 12:51 Dose: 50 mls/hr Multivitamins/Minerals 10 ml/Chromium/Copper/Manganese/Seleni/Zn 1 ml/ Amino Ac/ Electrol/Dextrose/Calcium 2,011 mls @ 82 mls/hr IV .BY DURATION [facility] Stop: 09/08/18 13:20 Last Admin: 09/07/18 15:09 Dose: 82 mls/hr Amino Ac/Electrol/Dextrose/Calcium (Clinimix E 5/15) 2,000 mls @ 82 mls/hr IV .BY DURATION [facility] Stop: 09/08/18 13:20 Vancomycin HCl 1 gm/ Sodium (Chloride) 250 mls @ 167 mls/hr IV Q24H [facility] Last Admin: 09/06/18 12:00 Dose: 167 mls/hr Sodium Chloride (Normal Saline) 500 mls @ 500 mls/hr IV ASDIRECTED ONE Stop: 09/05/18 16:29 Last Admin: 09/05/18 15:40 Dose: 500 mls/hr Sodium Chloride (Normal Saline) 1,000 mls @ 100 mls/hr IV ASDIRECTED [facility] Last Admin: 09/07/18 07:31 Dose: 100 mls/hr Propofol (Diprivan 100 Ml) 100 mls @ 1.361 mls/hr IV TITRATE [facility]; Protocol Last Titration: 09/17/18 03:30 Dose: 25 mcg/kg/min, 6.804 mls/hr Potassium Phosphate 20 mmole/ (Sodium Chloride) 106.6667 mls @ 35 mls/hr IV Q3H [facility] Stop: 09/07/18 17:29 Last Admin: 09/07/18 15:01 Dose: 35 mls/hr Albumin Human (Albumin 25%) 25 gm in 100 mls @ 25 mls/hr IV DAILY [facility] Stop: 09/09/18 12:59 Last Admin: 09/09/18 08:25 Dose: 25 mls/hr Albumin Human (Albumin 25%) 25 gm in 100 mls @ 25 mls/hr IV Q24H [facility] Stop: 09/09/18 17:59 Last Admin: 09/09/18 14:32 Dose: 25 mls/hr Aztreonam 1 gm/ Sodium (Chloride) 50 mls @ 100 mls/hr IV Q8H [facility] Last Admin: 09/08/18 09:41 Dose: 100 mls/hr Vancomycin HCl 1 gm/ Sodium (Chloride) 250 mls @ 167 mls/hr IV Q18H [facility] Last Admin: 09/09/18 18:42 Dose: 167 mls/hr Sodium Chloride (Normal Saline) 1,000 mls @ 999 mls/hr IV .BOLUS ONE Stop: 09/07/18 17:39 Last Admin: 09/07/18 17:26 Dose: 999 mls/hr Potassium Acetate 40 meq/ (Sodium Chloride) 120 mls @ 30 mls/hr IV ONETIME ONE Stop: 09/08/18 13:59 Last Admin: 09/08/18 09:44 Dose: 30 mls/hr Sodium Chloride (Normal Saline) 100 mls @ 3 mls/sec IV ASDIRECTED [facility] Stop: 09/08/18 15:00 Last Admin: 09/08/18 14:17 Dose: 3 mls/sec Azithromycin 500 mg/ Sodium (Chloride) 250 mls @ 250 mls/hr IV Q24H [facility] Last Admin: 09/09/18 15:27 Dose: 250 mls/hr Gentamicin Sulfate 228 mg/ (Sodium Chloride) 105.7 mls @ 100 mls/hr IV ONETIME ONE Stop: 09/08/18 17:03 Last Admin: 09/08/18 16:19 Dose: 100 mls/hr Potassium Phosphate 15 mmole/ (Sodium Chloride) 105 mls @ 55 mls/hr IV Q2H [facility] Stop: 09/09/18 12:55 Last Admin: 09/09/18 15:27 Dose: 55 mls/hr Gentamicin Sulfate 228 mg/ (Sodium Chloride) 105.7 mls @ 100 mls/hr IV Q36H [facility] Last Admin: 09/10/18 03:55 Dose: 100 mls/hr Sodium Chloride (Normal Saline) 500 mls @ 999 mls/hr IV .BOLUS ONE Stop: 09/09/18 16:34 Last Admin: 09/09/18 16:18 Dose: 999 mls/hr Sodium Chloride (Normal Saline) 500 mls @ 999 mls/hr IV .BOLUS ONE Stop: 09/09/18 17:35 Last Admin: 09/09/18 17:18 Dose: 999 mls/hr Sodium Chloride (Normal Saline) 1,000 mls @ 125 mls/hr IV ASDIRECTED [facility] Last Admin: 09/10/18 01:41 Dose: 125 mls/hr Lactated Ringer's (Ringers, Lactated) 1,000 mls @ 125 mls/hr IV ASDIRECTED [facility] Last Admin: 09/11/18 01:06 Dose: 125 mls/hr Gentamicin Sulfate 228 mg/ (Sodium Chloride) 55.7 mls @ 55 mls/hr IV Q36H [facility] Last Admin: 09/14/18 16:49 Dose: 55 mls/hr Azithromycin 500 mg/ Dextrose/ (Water) 250 mls @ 250 mls/hr IV Q24H [facility] Stop: 09/17/18 17:00 Last Admin: 09/14/18 15:42 Dose: 250 mls/hr Vancomycin HCl 1 gm/ Dextrose/ (Water) 250 mls @ 167 mls/hr IV Q24H [facility] Last Admin: 09/13/18 17:48 Dose: 167 mls/hr Fluconazole/Sodium Chloride (200 mg/ Premix) 100 mls @ 100 mls/hr IV Q24H [facility] Last Admin: 09/15/18 20:38 Dose: 100 mls/hr Magnesium Sulfate 2 gm/ Premix 50 mls @ 25 mls/hr IV Q6H [facility] Stop: 09/13/18 05:59 Last Admin: 09/13/18 03:31 Dose: 25 mls/hr Potassium Phosphate 22.5 mmole (/ Dextrose/Water) 107.5 mls @ 27 mls/hr IV Q4H [facility] Stop: 09/11/18 17:29 Last Admin: 09/11/18 14:45 Dose: 27 mls/hr Lactated Ringer's (Ringers, Lactated) 1,000 mls @ 75 mls/hr IV ASDIRECTED [facility] Last Admin: 09/13/18 22:27 Dose: 75 mls/hr Sodium Chloride (Normal Saline) Confirm Administered Dose 10 mls @ as directed .ROUTE .STK-MED ONE Stop: 09/11/18 10:41 Potassium Chloride 40 meq/ (Premix) 100 mls @ 25 mls/hr IV ONETIME ONE Stop: 09/13/18 12:59 Last Admin: 09/13/18 09:31 Dose: 25 mls/hr Potassium Chloride 40 meq/ (Premix) 100 mls @ 25 mls/hr IV ONETIME ONE Stop: 09/13/18 17:59 Last Admin: 09/13/18 13:11 Dose: 25 mls/hr Albumin Human (Albumin 25%) 25 gm in 100 mls @ 25 mls/hr IV Q24H [facility] Stop: 09/16/18 11:59 Last Admin: 09/16/18 09:02 Dose: 25 mls/hr Albumin Human (Albumin 25%) 25 gm in 100 mls @ 25 mls/hr IV Q24H [facility] Stop: 09/16/18 15:59 Last Admin: 09/16/18 12:33 Dose: 25 mls/hr Potassium Chloride 40 meq/ (Premix) 100 mls @ 25 mls/hr IV ONETIME ONE Stop: 09/16/18 11:59 Last Admin: 09/16/18 08:02 Dose: 25 mls/hr Potassium Chloride 20 meq/ (Premix) 100 mls @ 50 mls/hr IV ONETIME ONE Stop: 09/16/18 13:59 Last Admin: 09/16/18 11:36 Dose: 50 mls/hr Potassium Chloride 40 meq/ (Premix) 100 mls @ 25 mls/hr IV ONETIME ONE Stop: 09/17/18 11:59 Last Admin: 09/17/18 08:43 Dose: 25 mls/hr Iopamidol (Isovue-300 (61%)) 100 ml IV . DIRECTED PRN PRN Reason: RADIOLOGY EXAM Stop: 09/09/18 11:03 Last Admin: 09/08/18 14:16 Dose: 100 ml Lidocaine HCl (Xylocaine 2% Viscous) Confirm Administered Dose 15 ml .ROUTE .STK -MED ONE Stop: 09/12/18 11:15 Lidocaine HCl (Xylocaine 4% Top Soln) Confirm Administered Dose 50 ml .ROUTE .STK-MED ONE Stop: 09/12/18 11:15 Lidocaine HCl (Xylocaine 4% Top Soln) Confirm Administered Dose 50 ml .ROUTE .STK-MED ONE Stop: 09/14/18 06:57 Last Admin: 09/14/18 07:20 Dose: 20 ml Lidocaine HCl (Xylocaine-Mpf 1%) 5 ml INJECT ONETIME ONE Stop: 09/17/18 06:31 Last Admin: 09/17/18 06:52 Dose: 5 ml Lidocaine/Epinephrine (Xylocaine 1% With Epinephrine 1:100,000) Confirm Administered Dose 50 ml .ROUTE .STK-MED ONE Stop: 09/07/18 06:48 Last Admin: 09/07/18 10:54 Dose: 18 ml Lidocaine/Epinephrine (Xylocaine 1% With Epinephrine 1:100,000) Confirm Administered Dose 50 ml .ROUTE .STK-MED ONE Stop: 09/11/18 09:07 Last Admin: 09/11/18 10:49 Dose: 2 ml Lorazepam (Ativan) 0.5 mg IVPUSH Q4H PRN PRN Reason: Nausea/Vomiting Meropenem (Merrem) Confirm Administered Dose 1,000 mg .ROUTE .STK-MED ONE Stop: 09/03/18 17:54 Last Admin: 09/03/18 18:32 Dose: 3,500 mg Meropenem (Merrem) Confirm Administered Dose 1,000 mg .ROUTE .STK-MED ONE Stop: 09/03/18 18:04 Meropenem (Merrem) Confirm Administered Dose 2,000 mg .ROUTE .STK-MED ONE Stop: 09/03/18 18:18 Meropenem (Merrem) Confirm Administered Dose 500 mg .ROUTE .STK-MED ONE Stop: 09/07/18 06:48 Last Admin: 09/07/18 10:53 Dose: 500 mg Metoprolol Tartrate (Lopressor) 25 mg PO ONETIME ONE Stop: 09/03/18 10:41 Last Admin: 09/03/18 11:00 Dose: 25 mg Metoprolol Tartrate (Lopressor) 5 mg IVPUSH Q6H [facility] Last Admin: 09/08/18 09:25 Dose: 5 mg Metoprolol Tartrate (Lopressor) 2.5 mg IVPUSH Q6H [facility] Last Admin: 09/10/18 03:55 Dose: 2.5 mg Metoprolol Tartrate (Lopressor) Confirm Administered Dose 5 mg .ROUTE .STK-MED ONE Stop: 09/08/18 21:53 Last Admin: 09/08/18 22:19 Dose: Not Given Metoprolol Tartrate (Lopressor) 2.5 mg IVPUSH Q4H [facility] Last Admin: 09/11/18 21:25 Dose: Not Given Neostigmine Methylsulfate (Neostigmine) Confirm Administered Dose 5 mg .ROUTE .STK-MED ONE Stop: 09/03/18 14:41 Neostigmine Methylsulfate (Neostigmine) Confirm Administered Dose 5 mg .ROUTE .STK-MED ONE Stop: 09/04/18 09:47 Non-Formulary Medication (Total Parenteral Nutrition, Central) 0 ml IV ASDIRECTED NAHED Stop: 09/12/18 13:31 Non-Formulary Medication (Total Parenteral Nutrition, Central) 0 ml IV ASDIRECTED NAHED Stop: 09/13/18 13:00 Ondansetron HCl (Zofran Odt) 4 mg PO Q6H PRN PRN Reason: Nausea able to take PO Ondansetron HCl (Zofran) 4 mg IV Q6H PRN PRN Reason: Nausea/Vomiting Ondansetron HCl (Zofran) Confirm Administered Dose 4 mg .ROUTE .STK-MED ONE Stop: 09/03/18 14:41 Ondansetron HCl (Zofran) Confirm Administered Dose 4 mg .ROUTE .STK-MED ONE Stop: 09/04/18 09:47 Pantoprazole Sodium (Protonix Iv) 40 mg IV Q12H [facility] Last Admin: 09/03/18 16:07 Dose: 40 mg Piperacillin Sod/Tazobactam Sod (Zosyn) 10.125 gm .XX ASDIRECTED [facility] Stop: 09/04/18 15:00 Last Admin: 09/04/18 14:04 Dose: 10.125 gm Propofol (Diprivan 20 Ml) Confirm Administered Dose 200 mg .ROUTE .STK-MED ONE Stop: 09/03/18 14:41 Propofol (Diprivan 20 Ml) Confirm Administered Dose 200 mg .ROUTE .STK-MED ONE Stop: 09/04/18 09:47 Propofol (Diprivan 20 Ml) Confirm Administered Dose 200 mg .ROUTE .STK-MED ONE Stop: 09/06/18 07:01 Rocuronium [place] (Zemuron) Confirm Administered Dose 50 mg .ROUTE .STK-MED ONE Stop: 09/03/18 14:41 Rocuronium [place] (Zemuron) Confirm Administered Dose 50 mg .ROUTE .STK-MED ONE Stop: 09/04/18 09:47 Succinylcholine Chloride (Quelicin) Confirm Administered Dose 200 mg .ROUTE .STK -MED ONE Stop: 09/03/18 14:41 Succinylcholine Chloride (Quelicin) Confirm Administered Dose 200 mg .ROUTE .STK -MED ONE Stop: 09/04/18 09:47 Succinylcholine Chloride (Quelicin) Confirm Administered Dose 200 mg .ROUTE .STK -MED ONE Stop: 09/06/18 07:01 - Exam Quality Assessment: Supplemental Oxygen General: Alert, Cooperative, No Acute Distress HEENT: Pupils Equal Lungs: Clear to Auscultation, Normal Respiratory Effort, Decreased Breath Sounds (mild both bases) Cardiovascular: Regular Rhythm, Tachycardia GI/Abdominal Exam: Normal Bowel Sounds, Soft, No Distention Extremities: Pedal Edema. No: Increased Warmth Skin: Warm, Dry Psy/Mental Status: Alert, Anxious - Problem List & Annotations (1) Diverticulitis of colon with perforation SNOMED Code(s): 40990002 Code(s): K57.20 - DVTRCLI OF LG INT W PERFORATION AND ABSCESS W/O BLEEDING Status: Acute Current Visit: Yes Qualifiers: Diverticulitis bleeding: without bleeding Qualified Code(s): K57.20 - Diverticulitis of large intestine with perforation and abscess without bleeding (2) Sepsis SNOMED Code(s): 08025301 Code(s): A41.9 - SEPSIS, UNSPECIFIED ORGANISM Status: Acute Current Visit : Yes Qualifiers: Sepsis type: sepsis due to unspecified organism Qualified Code(s): A41.9 - Sepsis, unspecified organism (3) Acute kidney injury SNOMED Code(s): 09191092, 21675122 Code(s): N17.9 - ACUTE KIDNEY FAILURE, UNSPECIFIED Status: Acute Current Visit: Yes (4) Leukopenia SNOMED Code(s): 84823483, 828881364 Code(s): D72.819 - DECREASED WHITE BLOOD CELL COUNT, UNSPECIFIED Status: Acute Current Visit: Yes Qualifiers: Leukopenia type: neutropenia Neutropenia type: other Qualified Code(s): D70.8 - Other neutropenia - Problem List Review Problem List Initiated/Reviewed/Updated: Yes - My Orders Last 24 Hours: My Active Orders 09/17/18 09:00 Benazepril [Lotensin] 40 mg NGTUBE DAILY 09/17/18 13:15 Dimethicone/Zinc Oxide [Rash Relief-Zinc Oxide [place]] 0 gm TOP ASDIRECTED PRN - Plan Plan:: ASSESSMENT AND PLAN Acute respiratory failure with hypoxia and hypercapnia - oxygenation has been stable and weaning parameters were favorable this morning so the patient was extubated. Still evidence for hypervolemia but this has been steadily improving. She has had multiple respiratory cultures positive for a germ tube negative yeast. She is not having fevers. Unclear if this is respiratory contaminant/overgrowth with lots of antibiotics recently or if this represents a true infection. -furosemide 40 mg 2 doses today -Continue meropenem and fluconazole -Supplement oxygen, patient may require noninvasive ventilation if she wears out -Light sedation Perforated sigmoid colon with sepsis - Initial surgical resection on 09/03 and Second Look laparotomy on 09/04. Sepsis has resolved. Cultures grew out Klebsiella, Escherichia coli and anaerobic bacteria. stable from this standpoint and she has completed adequate anabiotic for this infection. Malnourished with essentially no oral intake in the last 2 weeks. -Pain control as indicated -TPN Anemia of critical illness - hemoglobin now stable with no evidence for bleeding. -Transfuse if less than 7 since she is currently hemodynamically stable and oxygenating well Acute kidney injury - renal function back to normal and stable. She does have an elevated BUN out of proportion to her creatinine. -Management as above -Repeat labs in the morning Mixed delirium - She is is alert and able to follow commands but very weak. -Symptomatically management and treatment of the above conditions -Minimize sedation as able Maintenance issues - - DVT prophylaxis - mechanical - GI prophylaxis - PPI - Nutrition - nothing by mouth - Rubin catheter - placed for strict intake and output monitoring and a critical patient Disposition - discharge plan depending on needs at the time of discharge Santana Cunningham M.D.
[2018-09-18] MEDS: hydrALAZINE 20 MG/ML SDV IVPUSH PRN (11:23)
--- NOTE | 2018-09-18 11:35 | PCM.PN ---
- General Info Date of Service: 09/18/18 - Review of Systems Systems Review Comment:: Tina Muniz is a 77 year old female who is on postoperative day #15 from the original exploratory laparotomy surgery. Mental status: Sedated and on mechanical ventilation. She is able to open her eyes and indicated yes/no answers. She is not able to provide symptoms or a review of systems. Labs show that albumin is 2.3 and BNP is 9066. Total intake is 2797 mL, total output through Rubin catheter is 5635 mL. Gastrointestinal ostomy output it 15 mL. Incision site appears to be healing well. - Patient Data Vitals - Most Recent: Last Vital Signs Temp 36.3 C 09/18/18 07:00 Pulse 111 H 09/18/18 11:08 Resp 32 H 09/18/18 11:00 BP 164/79 H 09/18/18 11:00 Pulse Ox 97 09/18/18 11:00 Weight - Most Recent: 78.471 kg I&O - Last 24 Hours: Intake & Output 09/17/18 09/18/18 09/18/18 22:59 06:59 14:59 Intake Total 1743 1054 Output Total 1620 1570 1255 Balance 123 516 -1255 Lab Results Last 24 Hours: Laboratory Results - last 24 hr 09/18/18 09/18/18 09/18/18 Range/Units 04:00 04:00 06:10 WBC 11.3 H (4.5-11.0) K/uL RBC 3.27 L (3.30-5.50) M/uL Hgb 10.5 L (12.0-15.0) g/dL Hct 31.9 L (36.0-48.0) % MCV 98 (80-98) fL MCH 32 H (27-31) pg MCHC 33 (32-36) % Plt Count 320 (150-400) K/uL Neut % (Auto) 86 H (36-66) % Lymph % (Auto) 3 L (24-44) % Gladwin % (Auto) 10 H (2-6) % Eos % (Auto) 2 (2-4) % Baso % (Auto) 0 (0-1) % Puncture Site A-line ABG pH 7.465 H (7.350-7.450) ABG pCO2 44.3 H (35.0-42.0) mmHg ABG pO2 93.3 (75.0-100.0) mmHg ABG HCO3 31.5 H (22.0-26.0) mmol/L ABG Total CO2 28.9 H (21.0-25.0) mmol/L ABG O2 Saturation 97.3 (95.0-98.0) % ABG O2 Content 13.5 L (15.0-23.0) %vol ABG Base Excess 7.3 mm/L ABG Hemoglobin 9.9 L (12.0-16.0) g/dL ABG Oxyhemoglobin 95.8 % ABG Carboxyhemoglobin 0.9 (0.0-1.6) % ABG Methemoglobin 0.6 % Woody Test A-line O2 Delivery Device Ventilator Oxygen Flow Rate L Sodium 139 L (140-148) mmol/L Potassium 3.5 L (3.6-5.2) mmol/L Chloride 101 (100-108) mmol/L Carbon Dioxide 30 (21-32) mmol/L Anion Gap 11.5 (5.0-14.0) mmol/L BUN 43 H (7-18) mg/dL Creatinine 0.8 (0.6-1.0) mg/dL Est Cr Clr Drug Dosing 44.61 mL/min Estimated GFR (MDRD) > 60 (>60) Glucose 125 H (74-106) mg/dL Calcium 9.1 (8.5-10.1) mg/dL Phosphorus 4.1 (2.5-4.9) mg/dL Total Bilirubin 1.0 (0.2-1.0) mg/dL AST 62 H (15-37) U/L ALT 96 H (12-78) U/L Alkaline Phosphatase 251 H (46-116) U/L NT-Pro-B Natriuret Pep 9066 H (5-450) pg/mL Total Protein 5.8 L (6.4-8.2) g/dL Albumin 2.3 L (3.4-5.0) g/dL Globulin 3.5 (2.3-3.5) g/dL Albumin/Globulin Ratio 0.7 L (1.2-2.2) Joseph Results Last 24 Hours: Microbiology 09/17/18 05:06 Gram Stain - Final Endotrachael Aspirate Respiratory Culture - Preliminary Yeast Isolated Med Orders - Current: Current Medications Acetylcysteine (Mucomyst 20%) 200 mg NEB QIDRT [facility] Last Admin: 09/18/18 11:07 Dose: 200 mg Albuterol (Proventil Neb Soln) 2.5 mg NEB Q4H PRN PRN Reason: Dyspnea Albuterol/Ipratropium (Duoneb 3.0-0.5 Mg/3 Ml) 3 ml NEB QIDRT [facility] Last Admin: 09/18/18 11:07 Dose: 3 ml Benazepril HCl (Lotensin) 40 mg NGTUBE DAILY [facility] Last Admin: 09/18/18 08:19 Dose: 40 mg Dimethicone/Zinc Oxide (Rash Relief-Zinc Oxide [place]) 0 gm TOP ASDIRECTED PRN PRN Reason: Inflammation Last Admin: 09/18/18 05:01 Dose: 5 spray Furosemide (Lasix) 40 mg IV Q8H [facility] Stop: 09/18/18 16:01 Last Admin: 09/18/18 08:13 Dose: 40 mg Hydralazine HCl (Apresoline) 5 mg IVPUSH Q4H PRN PRN Reason: Hypertension Last Admin: 09/17/18 09:02 Dose: 5 mg Hydromorphone HCl (Dilaudid) 0.5 mg IVPUSH Q2H PRN PRN Reason: Pain Last Admin: 09/18/18 05:10 Dose: 0.5 mg Hydroxyzine HCl (Vistaril) 50 mg IM Q4H PRN PRN Reason: Pain Heparin Sodium (Porcine) 5,000 (units/ Sodium Chloride) 501 mls @ 5 mls/hr IV ASDIRECTED [facility] Last Admin: 09/16/18 14:00 Dose: 5 mls/hr Heparin Sodium (Porcine) 5,000 (units/ Sodium Chloride) 501 mls @ 5 mls/hr IV ASDIRECTED [facility] Last Admin: 09/16/18 14:02 Dose: 5 mls/hr Sodium Chloride (Normal Saline) 1,000 mls @ 0 mls/hr IV ASDIRECTED [facility] Last Admin: 09/15/18 16:07 Dose: 12.5 mls/hr Multivitamins/Minerals 10 ml/Chromium/Copper/Manganese/Seleni/Zn 1 ml/ Amino Ac/ Electrol/Dextrose/Calcium 1,011 mls @ 62 mls/hr IV .BY DURATION [facility] Last Admin: 09/18/18 02:08 Dose: 62 mls/hr Amino Ac/Electrol/Dextrose/Calcium (Clinimix E 09/28) 1,000 mls @ 62 mls/hr IV .BY DURATION [facility] Last Admin: 09/17/18 10:26 Dose: 62 mls/hr Meropenem 500 mg/ Sodium (Chloride) 25 mls @ 50 mls/hr IV Q8H [facility] Last Admin: 09/18/18 05:10 Dose: 50 mls/hr Lactated Ringer's (Ringers, Lactated) 1,000 mls @ 25 mls/hr IV ASDIRECTED [facility] Last Admin: 09/17/18 05:17 Dose: 25 mls/hr Fluconazole/Sodium Chloride (400 mg/ Premix) 200 mls @ 100 mls/hr IV Q24H [facility] Last Admin: 09/17/18 19:54 Dose: 100 mls/hr Magnesium Sulfate 2 gm/ Premix 50 mls @ 25 mls/hr IV Q6H [facility] Stop: 09/19/18 05:59 Last Admin: 09/18/18 09:15 Dose: 25 mls/hr Potassium Chloride 40 meq/ (Premix) 100 mls @ 25 mls/hr IV ONETIME ONE Stop: 09/18/18 12:59 Last Admin: 09/18/18 08:34 Dose: 25 mls/hr Ketoconazole (Nizoral 2% Crm) 0 gm TOP TID [facility] Last Admin: 09/18/18 08:16 Dose: 1 applic Lorazepam (Ativan) 0.5 mg IVPUSH Q3H PRN PRN Reason: AGITATION Last Admin: 09/18/18 09:11 Dose: 0.5 mg Metoprolol Tartrate (Lopressor) 2.5 mg IVPUSH Q4H PRN PRN Reason: Hypertension Last Admin: 09/18/18 09:09 Dose: 2.5 mg Naloxone HCl (Narcan) 0.1 mg IV ASDIRECTED PRN PRN Reason: decreased respiratory rate Pantoprazole Sodium (Protonix Iv) 40 mg IV Q24H [facility] Last Admin: 09/17/18 22:06 Dose: 40 mg Discontinued Medications Acetaminophen (Tylenol) 650 mg PO Q4H PRN PRN Reason: Pain (Mild 1-3)/fever Acetaminophen (Tylenol) 650 mg RECTAL Q4H PRN PRN Reason: Mild pain/fever Albuterol (Proventil Neb Soln) 2.5 mg NEB Q4H PRN PRN Reason: Shortness Of Breath/wheezing Albuterol/Ipratropium (Duoneb 3.0-0.5 Mg/3 Ml) 3 ml INH PREPRO ONE Stop: 09/03/18 17:01 Last Admin: 09/03/18 16:25 Dose: 3 ml Albuterol/Ipratropium (Duoneb 3.0-0.5 Mg/3 Ml) 3 ml NEB QID [facility] Last Admin: 09/13/18 21:11 Dose: 3 ml Aztreonam (Azactam) Confirm Administered Dose 1 gm .ROUTE .STK-MED ONE Stop: 09/03/18 21:44 Last Admin: 09/03/18 22:15 Dose: Not Given Benazepril HCl (Lotensin) 40 mg PO ONETIME ONE Stop: 09/03/18 10:41 Last Admin: 09/03/18 11:00 Dose: 40 mg Bupivacaine HCl (Marcaine 0.5%) Confirm Administered Dose 50 ml .ROUTE .STK-MED ONE Stop: 09/07/18 06:48 Last Admin: 09/07/18 10:53 Dose: 18 ml Bupivacaine HCl (Marcaine 0.5%) Confirm Administered Dose 50 ml .ROUTE .STK-MED ONE Stop: 09/11/18 09:07 Last Admin: 09/11/18 10:49 Dose: 2 ml Ropivacaine 22 ml/Dexamethasone 8 mg/Epinephrine HCl 0.4 mg/ Sodium Chloride 55.6 ml 0 ml NERVRT ASDIRECTED [facility] Ropivacaine 22 ml/Dexamethasone 8 mg/Epinephrine HCl 0.4 mg/ Sodium Chloride 55.6 ml 0 ml NERVRT ASDIRECTED [facility] Last Admin: 09/04/18 14:03 Dose: 80 syringe Ropivacaine 22 ml/Dexamethasone 8 mg/Epinephrine HCl 0.4 mg/ Sodium Chloride 55.6 ml 0 ml NERVRT ASDIRECTED [facility] Last Admin: 09/07/18 11:07 Dose: 80 syringe Dexamethasone (Dexamethasone) Confirm Administered Dose 4 mg .ROUTE .STK-MED ONE Stop: 09/03/18 14:41 Dexamethasone (Dexamethasone) Confirm Administered Dose 4 mg .ROUTE .STK-MED ONE Stop: 09/04/18 09:47 Fentanyl (Sublimaze) 25 mcg IVPUSH ONETIME ONE Stop: 09/03/18 13:57 Last Admin: 09/03/18 14:16 Dose: 25 mcg Fentanyl (Sublimaze) 25 mcg IVPUSH Q2H PRN PRN Reason: Pain (severe 7-10) Fentanyl (Sublimaze) Confirm Administered Dose 250 mcg .ROUTE .STK-MED ONE Stop: 09/03/18 14:41 Fentanyl (Sublimaze) Confirm Administered Dose 250 mcg .ROUTE .STK-MED ONE Stop: 09/04/18 09:46 Fentanyl (Sublimaze) Confirm Administered Dose 250 mcg .ROUTE .STK-MED ONE Stop: 09/04/18 13:57 Fentanyl (Sublimaze) Confirm Administered Dose 100 mcg .ROUTE .STK-MED ONE Stop: 09/11/18 10:36 Furosemide (Lasix) 20 mg IVPUSH ONETIME ONE Stop: 09/04/18 15:10 Last Admin: 09/04/18 15:18 Dose: 20 mg Furosemide (Lasix) 40 mg IV ONETIME ONE Stop: 09/06/18 08:16 Last Admin: 09/06/18 08:26 Dose: 40 mg Furosemide (Lasix) 20 mg IV Q12H [facility] Stop: 09/07/18 20:01 Last Admin: 09/07/18 20:10 Dose: 20 mg Furosemide (Lasix) 20 mg IVPUSH Q12H [facility] Stop: 09/08/18 19:01 Last Admin: 09/08/18 19:50 Dose: 20 mg Furosemide (Lasix) 20 mg IVPUSH ONETIME ONE Stop: 09/09/18 07:01 Last Admin: 09/09/18 08:14 Dose: 20 mg Furosemide (Lasix) 20 mg IVPUSH ONETIME ONE Stop: 09/09/18 11:01 Last Admin: 09/09/18 12:38 Dose: 20 mg Furosemide (Lasix) 20 mg IVPUSH ONETIME ONE Stop: 09/09/18 20:01 Furosemide (Lasix) 20 mg IV Q8H [facility] Stop: 09/11/18 00:31 Last Admin: 09/10/18 23:50 Dose: 20 mg Furosemide (Lasix) 20 mg IV Q8H [facility] Stop: 09/12/18 00:01 Last Admin: 09/11/18 23:34 Dose: 20 mg Furosemide (Lasix) 20 mg IVPUSH Q8H [facility] Stop: 09/13/18 02:31 Last Admin: 09/13/18 02:39 Dose: 20 mg Furosemide (Lasix) 20 mg IVPUSH Q8H [facility] Stop: 09/14/18 02:31 Last Admin: 09/14/18 02:29 Dose: 20 mg Furosemide (Lasix) 40 mg IVPUSH ONETIME ONE Stop: 09/14/18 10:01 Last Admin: 09/14/18 13:28 Dose: 40 mg Furosemide (Lasix) 20 mg IVPUSH BID [facility] Furosemide (Lasix) 20 mg IVPUSH ONETIME ONE Stop: 09/15/18 06:34 Last Admin: 09/15/18 06:48 Dose: 20 mg Furosemide (Lasix) 40 mg IVPUSH Q8H [facility] Stop: 09/15/18 20:31 Last Admin: 09/15/18 20:39 Dose: 40 mg Furosemide (Lasix) 40 mg IV BID [facility] Stop: 09/16/18 21:01 Last Admin: 09/16/18 21:19 Dose: 40 mg Furosemide (Lasix) 40 mg IV Q12H [facility] Stop: 09/17/18 21:01 Last Admin: 09/17/18 21:11 Dose: 40 mg Gentamicin Sulfate (Gentamicin) 1 mg IV .Pharmacy to Dose [facility] Stop: 09/08/18 14:31 Glycopyrrolate (Robinul) Confirm Administered Dose 1 mg .ROUTE .STK-MED ONE Stop: 09/03/18 14:41 Glycopyrrolate (Robinul) Confirm Administered Dose 1 mg .ROUTE .STK-MED ONE Stop: 09/04/18 09:47 Heparin Sodium (Porcine) (Heparin Sodium) Confirm Administered Dose 5,000 units .ROUTE .STK-MED ONE Stop: 09/03/18 18:32 Heparin Sodium (Porcine) (Heparin Lock Flush 100 Units/Ml) Confirm Administered Dose 500 units .ROUTE .STK-MED ONE Stop: 09/04/18 13:14 Heparin Sodium (Porcine) (Heparin Lock Flush 100 Units/Ml) Confirm Administered Dose 1,000 units .ROUTE .STK-MED ONE Stop: 09/11/18 09:07 Last Admin: 09/11/18 10:58 Dose: 1,000 units Heparin Sodium (Porcine) (Heparin Lock Flush 100 Units/Ml) Confirm Administered Dose 500 units .ROUTE .STK-MED ONE Stop: 09/11/18 10:44 Last Admin: 09/11/18 10:58 Dose: 500 units Hydromorphone HCl (Dilaudid) 0.5 mg IVPUSH ONETIME ONE Stop: 09/03/18 10:48 Last Admin: 09/03/18 11:00 Dose: 0.5 mg Hydromorphone HCl (Dilaudid) 0.5 mg IVPUSH ONETIME ONE Stop: 09/03/18 11:22 Last Admin: 09/03/18 11:25 Dose: 0.5 mg Hydromorphone HCl (Dilaudid) 0.5 mg IVPUSH ONETIME ONE Stop: 09/03/18 12:10 Last Admin: 09/03/18 12:12 Dose: 0.5 mg Hydromorphone HCl (Dilaudid) 0.5 mg IVPUSH ONETIME ONE Stop: 09/03/18 12:40 Last Admin: 09/03/18 12:44 Dose: 0.5 mg Hydromorphone HCl (Dilaudid) 1 mg IVPUSH ONETIME ONE Stop: 09/03/18 12:57 Last Admin: 09/03/18 13:00 Dose: 1 mg Hydromorphone HCl (Dilaudid [facility] 15 Mg In Ns 30 Ml) 0 mg IV ASDIRECTED PRN; Protocol PRN Reason: 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 Last Admin: 09/09/18 05:52 Dose: 15 mg Sodium Chloride (Normal Saline) 1,000 mls @ 1,000 mls/hr IV .BOLUS ONE Stop: 09/03/18 12:17 Last Admin: 09/03/18 11:25 Dose: 1,000 mls/hr Piperacillin/Tazobactam/ (Dextrose 4.5 gm/ Premix) 100 mls @ 200 mls/hr IV ONETIME ONE Stop: 09/03/18 13:29 Last Admin: 09/03/18 13:04 Dose: 200 mls/hr Sodium Chloride (Normal Saline) 1,000 mls @ 500 mls/hr IV ASDIRECTED [facility] Last Admin: 09/03/18 13:00 Dose: 500 mls/hr Lactated Ringer's (Ringers, Lactated) 1,000 mls @ 125 mls/hr IV ASDIRECTED [facility] Last Admin: 09/03/18 16:07 Dose: 125 mls/hr Aztreonam 2 gm/ Sodium (Chloride) 100 mls @ 200 mls/hr IV NOW ONE Stop: 09/03/18 15:29 Last Admin: 09/03/18 14:56 Dose: 200 mls/hr Meropenem 500 mg/ Sodium (Chloride) 50 mls @ 100 mls/hr IV ONCALL ONE Stop: 09/03/18 17:29 Last Admin: 09/03/18 16:25 Dose: 100 mls/hr Piperacillin/Tazobactam/ (Dextrose 3.375 gm/ Premix) 50 mls @ 100 mls/hr IV Q6H [facility] Last Admin: 09/03/18 22:15 Dose: Not Given Sodium Chloride (Normal Saline) Confirm Administered Dose 500 mls @ as directed .ROUTE .[facility]-MED ONE Stop: 09/03/18 18:33 Aztreonam/Dextrose 1 gm/ (Premix) 50 mls @ 100 mls/hr IV Q8HR [facility] Meropenem 500 mg/ Sodium (Chloride) 50 mls @ 100 mls/hr IV Q8H [facility] Last Admin: 09/10/18 05:17 Dose: 100 mls/hr Sodium Chloride (Normal Saline) Confirm Administered Dose 50 mls @ as directed .ROUTE .STK-MED ONE Stop: 09/03/18 22:01 Last Admin: 09/03/18 22:21 Dose: Not Given Aztreonam/Dextrose 1 gm/ (Premix) 50 mls @ 100 mls/hr IV Q8H [facility] Last Admin: 09/04/18 07:30 Dose: Not Given Dextrose/Lactated Ringer's (Dextrose 5%-Lactated Ringers) 1,000 mls @ 100 mls/ hr IV ASDIRECTED PRN PRN Reason: Hypotension Dextrose/Lactated Ringer's (Dextrose 5%-Lactated Ringers) 1,000 mls @ 100 mls/ hr IV ASDIRECTED [facility] Last Admin: 09/05/18 02:13 Dose: 100 mls/hr Lactated Ringer's (Ringers, Lactated) 1,000 mls @ 100 mls/hr IV ASDIRECTED [facility] Last Admin: 09/04/18 04:20 Dose: 100 mls/hr Lactated Ringer's (Ringers, Lactated) 500 mls @ 500 mls/hr IV .BOLUS [facility] Last Admin: 09/04/18 01:10 Dose: 500 mls/hr Lactated Ringer's (Ringers, Lactated) 500 mls @ 500 mls/hr IV .BOLUS [facility] Last Admin: 09/04/18 03:13 Dose: 500 mls/hr Propofol (Diprivan 100 Ml) 100 mls @ 1.361 mls/hr IV TITRATE [facility]; Protocol Last Titration: 09/04/18 07:52 Dose: 14 mcg/kg/min, 3.81 mls/hr Propofol (Diprivan 100 Ml) Confirm Administered Dose 100 mls @ as directed .ROUTE .STK-MED ONE Stop: 09/04/18 03:45 Last Admin: 09/04/18 03:59 Dose: Not Given Lactated Ringer's (Ringers, Lactated) 500 mls @ 999 mls/hr IV .BOLUS [facility] Last Admin: 09/04/18 06:10 Dose: 999 mls/hr Aztreonam/Dextrose 1 gm/ (Premix) 50 mls @ 100 mls/hr IV Q8H [facility] Last Admin: 09/07/18 08:15 Dose: 100 mls/hr Lactated Ringer's (Ringers, Lactated) 500 mls @ 500 mls/hr IV ASDIRECTED [facility] Last Admin: 09/04/18 21:04 Dose: 500 mls/hr Lactated Ringer's (Ringers, Lactated) Confirm Administered Dose 1,000 mls @ as directed .ROUTE .STK-MED ONE Stop: 09/04/18 13:11 Lactated Ringer's (Ringers, Lactated) Confirm Administered Dose 1,000 mls @ as directed .ROUTE .STK-MED ONE Stop: 09/04/18 13:11 Sodium Chloride (Normal Saline) Confirm Administered Dose 10 mls @ as directed .ROUTE .STK-MED ONE Stop: 09/04/18 13:15 Magnesium Sulfate 2 gm/ Premix 50 mls @ 25 mls/hr IV Q6H [facility] Stop: 09/06/18 11:59 Last Admin: 09/06/18 10:17 Dose: 25 mls/hr Lactated Ringer's (Ringers, Lactated) 500 mls @ 500 mls/hr IV ASDIRECTED [facility] Stop: 09/04/18 17:46 Lactated Ringer's (Ringers, Lactated) 500 mls @ 500 mls/hr IV ONETIME ONE Stop: 09/04/18 19:29 Last Admin: 09/04/18 18:37 Dose: 500 mls/hr Lactated Ringer's (Ringers, Lactated) 500 mls @ 1,000 mls/hr IV ONETIME ONE Stop: 09/04/18 23:30 Last Admin: 09/04/18 23:18 Dose: 1,000 mls/hr Lactated Ringer's (Ringers, Lactated) 500 mls @ 1,000 mls/hr IV ONETIME ONE Stop: 09/05/18 01:44 Last Admin: 09/05/18 01:15 Dose: 1,000 mls/hr Lactated Ringer's (Ringers, Lactated) 1,000 mls @ 150 mls/hr IV ASDIRECTED [facility] Last Admin: 09/05/18 02:13 Dose: 150 mls/hr Lactated Ringer's (Ringers, Lactated) 500 mls @ 1,000 mls/hr IV ONETIME ONE Stop: 09/05/18 03:38 Last Admin: 09/05/18 03:15 Dose: 1,000 mls/hr Multivitamins/Minerals 10 ml/Chromium/Copper/Manganese/Seleni/Zn 1 ml/ Amino Ac/ Electrol/Dextrose/Calcium 2,011 mls @ 82 mls/hr IV .BY DURATION [facility] Stop: 09/05/18 13:25 Last Admin: 09/05/18 13:32 Dose: Not Given Amino Ac/Electrol/Dextrose/Calcium (Clinimix E 09/23) 2,000 mls @ 82 mls/hr IV .BY DURATION [facility] Stop: 09/05/18 13:25 Vancomycin HCl 1 gm/ Sodium (Chloride) 250 mls @ 167 mls/hr IV Q24H [facility] Last Admin: 09/05/18 12:34 Dose: 167 mls/hr Sodium Chloride (Normal Saline) 1,000 mls @ 50 mls/hr IV ASDIRECTED [facility] Last Admin: 09/05/18 12:51 Dose: 50 mls/hr Multivitamins/Minerals 10 ml/Chromium/Copper/Manganese/Seleni/Zn 1 ml/ Amino Ac/ Electrol/Dextrose/Calcium 2,011 mls @ 82 mls/hr IV .BY DURATION [facility] Stop: 09/08/18 13:20 Last Admin: 09/07/18 15:09 Dose: 82 mls/hr Amino Ac/Electrol/Dextrose/Calcium (Clinimix E 09/23) 2,000 mls @ 82 mls/hr IV .BY DURATION [facility] Stop: 09/08/18 13:20 Vancomycin HCl 1 gm/ Sodium (Chloride) 250 mls @ 167 mls/hr IV Q24H [facility] Last Admin: 09/06/18 12:00 Dose: 167 mls/hr Sodium Chloride (Normal Saline) 500 mls @ 500 mls/hr IV ASDIRECTED ONE Stop: 09/05/18 16:29 Last Admin: 09/05/18 15:40 Dose: 500 mls/hr Sodium Chloride (Normal Saline) 1,000 mls @ 100 mls/hr IV ASDIRECTED [facility] Last Admin: 09/07/18 07:31 Dose: 100 mls/hr Propofol (Diprivan 100 Ml) 100 mls @ 1.361 mls/hr IV TITRATE [facility]; Protocol Last Titration: 09/17/18 03:30 Dose: 25 mcg/kg/min, 6.804 mls/hr Potassium Phosphate 20 mmole/ (Sodium Chloride) 106.6667 mls @ 35 mls/hr IV Q3H [facility] Stop: 09/07/18 17:29 Last Admin: 09/07/18 15:01 Dose: 35 mls/hr Albumin Human (Albumin 25%) 25 gm in 100 mls @ 25 mls/hr IV DAILY [facility] Stop: 09/09/18 12:59 Last Admin: 09/09/18 08:25 Dose: 25 mls/hr Albumin Human (Albumin 25%) 25 gm in 100 mls @ 25 mls/hr IV Q24H [facility] Stop: 09/09/18 17:59 Last Admin: 09/09/18 14:32 Dose: 25 mls/hr Aztreonam 1 gm/ Sodium (Chloride) 50 mls @ 100 mls/hr IV Q8H [facility] Last Admin: 09/08/18 09:41 Dose: 100 mls/hr Vancomycin HCl 1 gm/ Sodium (Chloride) 250 mls @ 167 mls/hr IV Q18H [facility] Last Admin: 09/09/18 18:42 Dose: 167 mls/hr Sodium Chloride (Normal Saline) 1,000 mls @ 999 mls/hr IV .BOLUS ONE Stop: 09/07/18 17:39 Last Admin: 09/07/18 17:26 Dose: 999 mls/hr Potassium Acetate 40 meq/ (Sodium Chloride) 120 mls @ 30 mls/hr IV ONETIME ONE Stop: 09/08/18 13:59 Last Admin: 09/08/18 09:44 Dose: 30 mls/hr Sodium Chloride (Normal Saline) 100 mls @ 3 mls/sec IV ASDIRECTED [facility] Stop: 09/08/18 15:00 Last Admin: 09/08/18 14:17 Dose: 3 mls/sec Azithromycin 500 mg/ Sodium (Chloride) 250 mls @ 250 mls/hr IV Q24H [facility] Last Admin: 09/09/18 15:27 Dose: 250 mls/hr Gentamicin Sulfate 228 mg/ (Sodium Chloride) 105.7 mls @ 100 mls/hr IV ONETIME ONE Stop: 09/08/18 17:03 Last Admin: 09/08/18 16:19 Dose: 100 mls/hr Potassium Phosphate 15 mmole/ (Sodium Chloride) 105 mls @ 55 mls/hr IV Q2H [facility] Stop: 09/09/18 12:55 Last Admin: 09/09/18 15:27 Dose: 55 mls/hr Gentamicin Sulfate 228 mg/ (Sodium Chloride) 105.7 mls @ 100 mls/hr IV Q36H [facility] Last Admin: 09/10/18 03:55 Dose: 100 mls/hr Sodium Chloride (Normal Saline) 500 mls @ 999 mls/hr IV .BOLUS ONE Stop: 09/09/18 16:34 Last Admin: 09/09/18 16:18 Dose: 999 mls/hr Sodium Chloride (Normal Saline) 500 mls @ 999 mls/hr IV .BOLUS ONE Stop: 09/09/18 17:35 Last Admin: 09/09/18 17:18 Dose: 999 mls/hr Sodium Chloride (Normal Saline) 1,000 mls @ 125 mls/hr IV ASDIRECTED [facility] Last Admin: 09/10/18 01:41 Dose: 125 mls/hr Lactated Ringer's (Ringers, Lactated) 1,000 mls @ 125 mls/hr IV ASDIRECTED [facility] Last Admin: 09/11/18 01:06 Dose: 125 mls/hr Gentamicin Sulfate 228 mg/ (Sodium Chloride) 55.7 mls @ 55 mls/hr IV Q36H [facility] Last Admin: 09/14/18 16:49 Dose: 55 mls/hr Azithromycin 500 mg/ Dextrose/ (Water) 250 mls @ 250 mls/hr IV Q24H [facility] Stop: 09/17/18 17:00 Last Admin: 09/14/18 15:42 Dose: 250 mls/hr Vancomycin HCl 1 gm/ Dextrose/ (Water) 250 mls @ 167 mls/hr IV Q24H [facility] Last Admin: 09/13/18 17:48 Dose: 167 mls/hr Fluconazole/Sodium Chloride (200 mg/ Premix) 100 mls @ 100 mls/hr IV Q24H [facility] Last Admin: 09/15/18 20:38 Dose: 100 mls/hr Magnesium Sulfate 2 gm/ Premix 50 mls @ 25 mls/hr IV Q6H [facility] Stop: 09/13/18 05:59 Last Admin: 09/13/18 03:31 Dose: 25 mls/hr Potassium Phosphate 22.5 mmole (/ Dextrose/Water) 107.5 mls @ 27 mls/hr IV Q4H [facility] Stop: 09/11/18 17:29 Last Admin: 09/11/18 14:45 Dose: 27 mls/hr Lactated Ringer's (Ringers, Lactated) 1,000 mls @ 75 mls/hr IV ASDIRECTED [facility] Last Admin: 09/13/18 22:27 Dose: 75 mls/hr Sodium Chloride (Normal Saline) Confirm Administered Dose 10 mls @ as directed .ROUTE .STK-MED ONE Stop: 09/11/18 10:41 Potassium Chloride 40 meq/ (Premix) 100 mls @ 25 mls/hr IV ONETIME ONE Stop: 09/13/18 12:59 Last Admin: 09/13/18 09:31 Dose: 25 mls/hr Potassium Chloride 40 meq/ (Premix) 100 mls @ 25 mls/hr IV ONETIME ONE Stop: 09/13/18 17:59 Last Admin: 09/13/18 13:11 Dose: 25 mls/hr Albumin Human (Albumin 25%) 25 gm in 100 mls @ 25 mls/hr IV Q24H [facility] Stop: 09/16/18 11:59 Last Admin: 09/16/18 09:02 Dose: 25 mls/hr Albumin Human (Albumin 25%) 25 gm in 100 mls @ 25 mls/hr IV Q24H [facility] Stop: 09/16/18 15:59 Last Admin: 09/16/18 12:33 Dose: 25 mls/hr Potassium Chloride 40 meq/ (Premix) 100 mls @ 25 mls/hr IV ONETIME ONE Stop: 09/16/18 11:59 Last Admin: 09/16/18 08:02 Dose: 25 mls/hr Potassium Chloride 20 meq/ (Premix) 100 mls @ 50 mls/hr IV ONETIME ONE Stop: 09/16/18 13:59 Last Admin: 09/16/18 11:36 Dose: 50 mls/hr Potassium Chloride 40 meq/ (Premix) 100 mls @ 25 mls/hr IV ONETIME ONE Stop: 09/17/18 11:59 Last Admin: 09/17/18 08:43 Dose: 25 mls/hr Iopamidol (Isovue-300 (61%)) 100 ml IV . DIRECTED PRN PRN Reason: RADIOLOGY EXAM Stop: 09/09/18 11:03 Last Admin: 09/08/18 14:16 Dose: 100 ml Lidocaine HCl (Xylocaine 2% Viscous) Confirm Administered Dose 15 ml .ROUTE .STK -MED ONE Stop: 09/12/18 11:15 Lidocaine HCl (Xylocaine 4% Top Soln) Confirm Administered Dose 50 ml .ROUTE .STK-MED ONE Stop: 09/12/18 11:15 Lidocaine HCl (Xylocaine 4% Top Soln) Confirm Administered Dose 50 ml .ROUTE .STK-MED ONE Stop: 09/14/18 06:57 Last Admin: 09/14/18 07:20 Dose: 20 ml Lidocaine HCl (Xylocaine-Mpf 1%) 5 ml INJECT ONETIME ONE Stop: 09/17/18 06:31 Last Admin: 09/17/18 06:52 Dose: 5 ml Lidocaine/Epinephrine (Xylocaine 1% With Epinephrine 1:100,000) Confirm Administered Dose 50 ml .ROUTE .STK-MED ONE Stop: 09/07/18 06:48 Last Admin: 09/07/18 10:54 Dose: 18 ml Lidocaine/Epinephrine (Xylocaine 1% With Epinephrine 1:100,000) Confirm Administered Dose 50 ml .ROUTE .STK-MED ONE Stop: 09/11/18 09:07 Last Admin: 09/11/18 10:49 Dose: 2 ml Lorazepam (Ativan) 0.5 mg IVPUSH Q4H PRN PRN Reason: Nausea/Vomiting Meropenem (Merrem) Confirm Administered Dose 1,000 mg .ROUTE .STK-MED ONE Stop: 09/03/18 17:54 Last Admin: 09/03/18 18:32 Dose: 3,500 mg Meropenem (Merrem) Confirm Administered Dose 1,000 mg .ROUTE .STK-MED ONE Stop: 09/03/18 18:04 Meropenem (Merrem) Confirm Administered Dose 2,000 mg .ROUTE .STK-MED ONE Stop: 09/03/18 18:18 Meropenem (Merrem) Confirm Administered Dose 500 mg .ROUTE .STK-MED ONE Stop: 09/07/18 06:48 Last Admin: 09/07/18 10:53 Dose: 500 mg Metoprolol Tartrate (Lopressor) 25 mg PO ONETIME ONE Stop: 09/03/18 10:41 Last Admin: 09/03/18 11:00 Dose: 25 mg Metoprolol Tartrate (Lopressor) 5 mg IVPUSH Q6H [facility] Last Admin: 09/08/18 09:25 Dose: 5 mg Metoprolol Tartrate (Lopressor) 2.5 mg IVPUSH Q6H [facility] Last Admin: 09/10/18 03:55 Dose: 2.5 mg Metoprolol Tartrate (Lopressor) Confirm Administered Dose 5 mg .ROUTE .STK-MED ONE Stop: 09/08/18 21:53 Last Admin: 09/08/18 22:19 Dose: Not Given Metoprolol Tartrate (Lopressor) 2.5 mg IVPUSH Q4H [facility] Last Admin: 09/11/18 21:25 Dose: Not Given Neostigmine Methylsulfate (Neostigmine) Confirm Administered Dose 5 mg .ROUTE .STK-MED ONE Stop: 09/03/18 14:41 Neostigmine Methylsulfate (Neostigmine) Confirm Administered Dose 5 mg .ROUTE .STK-MED ONE Stop: 09/04/18 09:47 Non-Formulary Medication (Total Parenteral Nutrition, Central) 0 ml IV [facility] Stop: 09/12/18 13:31 Non-Formulary Medication (Total Parenteral Nutrition, Central) 0 ml IV [facility] Stop: 09/13/18 13:00 Ondansetron HCl (Zofran Odt) 4 mg PO Q6H PRN PRN Reason: Nausea able to take PO Ondansetron HCl (Zofran) 4 mg IV Q6H PRN PRN Reason: Nausea/Vomiting Ondansetron HCl (Zofran) Confirm Administered Dose 4 mg .ROUTE .STK-MED ONE Stop: 09/03/18 14:41 Ondansetron HCl (Zofran) Confirm Administered Dose 4 mg .ROUTE .STK-MED ONE Stop: 09/04/18 09:47 Pantoprazole Sodium (Protonix Iv) 40 mg IV Q12H [facility] Last Admin: 09/03/18 16:07 Dose: 40 mg Piperacillin Sod/Tazobactam Sod (Zosyn) 10.125 gm [facility] Stop: 09/04/18 15:00 Last Admin: 09/04/18 14:04 Dose: 10.125 gm Propofol (Diprivan 20 Ml) Confirm Administered Dose 200 mg .ROUTE .STK-MED ONE Stop: 09/03/18 14:41 Propofol (Diprivan 20 Ml) Confirm Administered Dose 200 mg .ROUTE .STK-MED ONE Stop: 09/04/18 09:47 Propofol (Diprivan 20 Ml) Confirm Administered Dose 200 mg .ROUTE .STK-MED ONE Stop: 09/06/18 07:01 Rocuronium [place] (Zemuron) Confirm Administered Dose 50 mg .ROUTE .STK-MED ONE Stop: 09/03/18 14:41 Rocuronium [place] (Zemuron) Confirm Administered Dose 50 mg .ROUTE .STK-MED ONE Stop: 09/04/18 09:47 Succinylcholine Chloride (Quelicin) Confirm Administered Dose 200 mg .ROUTE .STK -MED ONE Stop: 09/03/18 14:41 Succinylcholine Chloride (Quelicin) Confirm Administered Dose 200 mg .ROUTE .STK -MED ONE Stop: 09/04/18 09:47 Succinylcholine Chloride (Quelicin) Confirm Administered Dose 200 mg .ROUTE .STK -MED ONE Stop: 09/06/18 07:01 - Exam General: Sedated, Lethargic Lungs: Clear to Auscultation, Normal Respiratory Effort Cardiovascular: Regular Rate, Regular Rhythm GI/Abdominal Exam: Soft, No Distention Extremities: Other (bilateral lower extremity edema) - Problem List Review Problem List Initiated/Reviewed/Updated: Yes - Assessment Assessment:: 1. 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 Exploratory laparotomy with a. sigmoid colon resection with end colotomy plus Rosa procedure b. drainage of pericolonic abscess plus diffuse peritoneal cavity washout c. small bowel resection Date of procedure: 09/03/2018, Surgeon Christiano Estrada MD 3.Indication of central venous access 4. Diffuse feculent perforation with second look laparotomy showing: a. pelvic right subphrenic with fluid collection b. segment small bowel with increasing necrosis adjacent mesentery 5. Insertion Left subclavian triple-lumen catheter 6. Second look laparotomy with: a. drainage peritoneal inflammatory fluid collection b. drainage right subphrenic inflammatory fluid collection d. plus small bowel resection 7. Date of procedure: 09/04/2018, Surgeon, Christiano Estrada MD 8. Hypoalbuminemia 9. Ventilator dependence: anticipate weaning trial today with extubation 10. SP Bronchoscopy. Bony Olson MD on 09/12/2018 11. Large volume mucoid pulmonary secretions, cleaned by bronchoscopy; Mucomyst started yesterday 12. Bronchial sputum culture: yeast isolated 13. Hypomagnesemia - Plan Plan:: 1. Continue current TPN content and rate 2. Administer Lasix 40 mg IV push now, repeat in 8 hours 3. Administer Potassium Chloride, 40 milliequivalents; minimize IV fluid via central line 4. AM labs: CBC, CMP, Mg, Phosphorous, BNP and ABG 5. Continue to administer Ketoconazole cream to affected erythematous areas of the pelvis perineum area and bilateral thighs, three times a day for presumed fungal skin infection 6. Recheck as needed or in the AM 7. Weaning trial today; change to SIMV ventilator mode as tolerated; anticipate weaning trial today with extubation
[2018-09-18] MEDS: Fluconazole/Normal Saline 400 MG in Premix Bag 1 BAG IV SCH (19:55)
[2018-09-18] MEDS: Lactated Ringers 1,000 ML IV SCH (21:11)
[2018-09-18] MEDS: Pantoprazole 40 MG Vial IV SCH (22:03)
[2018-09-19] MEDS: Dimethicone 20%/Zinc Oxide 25% 56 GM Spray Bottle TOP PRN (01:16)
[2018-09-19] MEDS: LORazepam 2 MG/ML SDV IVPUSH PRN ×3 (01:33→11:20)
[2018-09-19] MEDS: HYDROmorphone 0.5 MG/0.5 ML Syringe IVPUSH PRN ×2 (01:55→04:40)
[2018-09-19] MEDS: Magnesium Sulfate/Water 2 GM in Premix Bag 1 BAG IV SCH (03:26)
[2018-09-19] MEDS: Metoprolol Tartrate 5 MG/5 ML SDV IVPUSH PRN ×2 (04:40→11:44)
[2018-09-19] MEDS: Sodium Chloride 0.9% 1,000 ML IV SCH (05:15)
[2018-09-19] MEDS: MEROPENEM IV SCH ×3 (05:16→21:47)
[2018-09-19] MEDS: SODIUM CHLORIDE 0.9% IV SCH ×3 (05:16→21:47)
[2018-09-19] MEDS: Acetylcysteine 20% 200 MG/ML 4 ML Nebulizer Soln SDV NEB SCH ×4 (07:05→20:38)
[2018-09-19] MEDS: Albuterol/Ipratropium 3.0-0.5 MG/3 ML Neb Soln NEB SCH ×4 (07:05→20:38)
[2018-09-19] MEDS ORDERED: Potassium Chloride Riders 40 MEQ in Premix Bag 1 BAG IV ONE (08:00)
[2018-09-19] MEDS: Furosemide 40 MG/4 ML VIAL IV SCH ×2 (08:22→19:23)
[2018-09-19] MEDS: Ketoconazole 2% Crm 30 GM Tube TOP SCH ×3 (08:28→20:38)
[2018-09-19] MEDS: 1: AA 5%/Calcium/D20W/Lytes 1,000 ML with MVI, Adult with Vitamin K 10 ML, Chromium/Copp IV SCH ×3 (09:10)
--- NOTE | 2018-09-19 10:35 | PCM.PN ---
- General Info Date of Service: 09/19/18 Subjective Update: There were no acute events overnight. The patient did require noninvasive ventilation much of the night with only short rest. Throughout the morning today she became more tachypnea. Oxygen saturations have remained stable. She has had increasing anxiety. Respiratory rate climbed into the 40s. The patient was electively intubated before she developed worsening respiratory failure. She 's been stable since return to the ventilator. She has not had any fevers. Cultures continued to grow a germ tube negative yeast. Functional Status: Reports: Pain Controlled - Review of Systems General: Reports: Weakness Pulmonary: Reports: Shortness of Breath Psychiatric: Reports: Anxiety - Patient Data Vitals - Most Recent: Last Vital Signs Temp 35.8 C 09/19/18 08:00 Pulse 114 H 09/19/18 10:00 Resp 38 H 09/19/18 10:00 BP 157/81 H 09/19/18 10:00 Pulse Ox 98 09/19/18 10:00 Weight - Most Recent: 78.471 kg I&O - Last 24 Hours: Intake & Output 09/18/18 09/19/18 09/19/18 22:59 06:59 14:59 Intake Total 1478 1377 Output Total 2795 1012 Balance -1317 365 Lab Results Last 24 Hours: Laboratory Results - last 24 hr 09/18/18 09/19/18 09/19/18 Range/Units 14:44 04:55 04:55 WBC 10.7 (4.5-11.0) K/uL RBC 3.32 (3.30-5.50) M/uL Hgb 10.3 L (12.0-15.0) g/dL Hct 32.6 L (36.0-48.0) % MCV 98 (80-98) fL MCH 31 (27-31) pg MCHC 32 (32-36) % Plt Count 343 (150-400) K/uL Puncture Site Line Line ABG pH 7.413 7.476 H (7.350-7.450) ABG pCO2 51.0 H 42.9 H (35.0-42.0) mmHg ABG pO2 67.5 L 101.0 H (75.0-100.0) mmHg ABG HCO3 31.9 H 31.3 H (22.0-26.0) mmol/L ABG Total CO2 29.1 H 28.4 H (21.0-25.0) mmol/L ABG O2 Saturation 91.7 L 97.9 (95.0-98.0) % ABG O2 Content 14.4 L 14.7 L (15.0-23.0) %vol ABG Base Excess 6.6 7.3 mm/L ABG Hemoglobin 11.3 L 10.8 L (12.0-16.0) g/dL ABG Oxyhemoglobin 90.0 96.0 % ABG Carboxyhemoglobin 1.0 1.3 (0.0-1.6) % ABG Methemoglobin 0.8 0.6 % Woody Test TNP O2 Delivery Device Nasal cannula Ventilator Oxygen Flow Rate 2 L Sodium (140-148) mmol/L Potassium (3.6-5.2) mmol/L Chloride (100-108) mmol/L Carbon Dioxide (21-32) mmol/L Anion Gap (5.0-14.0) mmol/L BUN (7-18) mg/dL Creatinine (0.6-1.0) mg/dL Est Cr Clr Drug Dosing mL/min Estimated GFR (MDRD) (>60) Glucose (74-106) mg/dL Calcium (8.5-10.1) mg/dL Phosphorus (2.5-4.9) mg/dL Magnesium (1.8-2.4) mg/dL Total Bilirubin (0.2-1.0) mg/dL AST (15-37) U/L ALT (12-78) U/L Alkaline Phosphatase (46-116) U/L NT-Pro-B Natriuret Pep (5-450) pg/mL Total Protein (6.4-8.2) g/dL Albumin (3.4-5.0) g/dL Globulin (2.3-3.5) g/dL Albumin/Globulin Ratio (1.2-2.2) 09/19/18 Range/Units 04:55 WBC (4.5-11.0) K/uL RBC (3.30-5.50) M/uL Hgb (12.0-15.0) g/dL Hct (36.0-48.0) % MCV (80-98) fL MCH (27-31) pg MCHC (32-36) % Plt Count (150-400) K/uL Puncture Site ABG pH (7.350-7.450) ABG pCO2 (35.0-42.0) mmHg ABG pO2 (75.0-100.0) mmHg ABG HCO3 (22.0-26.0) mmol/L ABG Total CO2 (21.0-25.0) mmol/L ABG O2 Saturation (95.0-98.0) % ABG O2 Content (15.0-23.0) %vol ABG Base Excess mm/L ABG Hemoglobin (12.0-16.0) g/dL ABG Oxyhemoglobin % ABG Carboxyhemoglobin (0.0-1.6) % ABG Methemoglobin % Woody Test O2 Delivery Device Oxygen Flow Rate L Sodium 139 L (140-148) mmol/L Potassium 3.4 L (3.6-5.2) mmol/L Chloride 101 (100-108) mmol/L Carbon Dioxide 33 H (21-32) mmol/L Anion Gap 8.4 (5.0-14.0) mmol/L BUN 43 H (7-18) mg/dL Creatinine 0.7 (0.6-1.0) mg/dL Est Cr Clr Drug Dosing 50.98 mL/min Estimated GFR (MDRD) > 60 (>60) Glucose 131 H (74-106) mg/dL Calcium 9.2 (8.5-10.1) mg/dL Phosphorus 4.1 (2.5-4.9) mg/dL Magnesium 4.0 H D (1.8-2.4) mg/dL Total Bilirubin 0.9 (0.2-1.0) mg/dL AST 35 (15-37) U/L ALT 76 (12-78) U/L Alkaline Phosphatase 219 H (46-116) U/L NT-Pro-B Natriuret Pep 7517 H (5-450) pg/mL Total Protein 5.9 L (6.4-8.2) g/dL Albumin 2.2 L (3.4-5.0) g/dL Globulin 3.7 H (2.3-3.5) g/dL Albumin/Globulin Ratio 0.6 L (1.2-2.2) Joseph Results Last 24 Hours: Microbiology 09/17/18 05:06 Gram Stain - Final Endotrachael Aspirate Respiratory Culture - Final Yeast Isolated Med Orders - Current: Current Medications Acetylcysteine (Mucomyst 20%) 200 mg NEB QIDRT [facility] Last Admin: 09/19/18 07:05 Dose: 200 mg Albuterol (Proventil Neb Soln) 2.5 mg NEB Q4H PRN PRN Reason: Dyspnea Albuterol/Ipratropium (Duoneb 3.0-0.5 Mg/3 Ml) 3 ml NEB QIDRT [facility] Last Admin: 09/19/18 07:05 Dose: 3 ml Benazepril HCl (Lotensin) 40 mg NGTUBE DAILY [facility] Last Admin: 09/19/18 08:24 Dose: 40 mg Dimethicone/Zinc Oxide (Rash Relief-Zinc Oxide [place]) 0 gm TOP ASDIRECTED PRN PRN Reason: Inflammation Last Admin: 09/19/18 01:16 Dose: 1 spray Furosemide (Lasix) 40 mg IV Q12H [facility] Stop: 09/19/18 20:01 Last Admin: 09/19/18 08:22 Dose: 40 mg Hydralazine HCl (Apresoline) 5 mg IVPUSH Q4H PRN PRN Reason: Hypertension Last Admin: 09/18/18 11:23 Dose: 5 mg Hydromorphone HCl (Dilaudid) 0.5 mg IVPUSH Q2H PRN PRN Reason: Pain Last Admin: 09/19/18 04:40 Dose: 0.5 mg Hydroxyzine HCl (Vistaril) 50 mg IM Q4H PRN PRN Reason: Pain Heparin Sodium (Porcine) 5,000 (units/ Sodium Chloride) 501 mls @ 5 mls/hr IV ASDIRECTED [facility] Last Admin: 09/16/18 14:00 Dose: 5 mls/hr Heparin Sodium (Porcine) 5,000 (units/ Sodium Chloride) 501 mls @ 5 mls/hr IV ASDIRECTED [facility] Last Admin: 09/16/18 14:02 Dose: 5 mls/hr Sodium Chloride (Normal Saline) 1,000 mls @ 0 mls/hr IV ASDIRECTED [facility] Last Admin: 09/19/18 05:15 Dose: 12.5 mls/hr Multivitamins/Minerals 10 ml/Chromium/Copper/Manganese/Seleni/Zn 1 ml/ Amino Ac/ Electrol/Dextrose/Calcium 1,011 mls @ 62 mls/hr IV .BY DURATION [facility] Last Admin: 09/19/18 09:10 Dose: 62 mls/hr Amino Ac/Electrol/Dextrose/Calcium (Clinimix E 09/28) 1,000 mls @ 62 mls/hr IV .BY DURATION [facility] Last Admin: 09/18/18 17:08 Dose: 62 mls/hr Meropenem 500 mg/ Sodium (Chloride) 25 mls @ 50 mls/hr IV Q8H [facility] Last Admin: 09/19/18 05:16 Dose: 50 mls/hr Lactated Ringer's (Ringers, Lactated) 1,000 mls @ 25 mls/hr IV ASDIRECTED [facility] Last Admin: 09/18/18 21:11 Dose: 25 mls/hr Fluconazole/Sodium Chloride (400 mg/ Premix) 200 mls @ 100 mls/hr IV Q24H [facility] Last Admin: 09/18/18 19:55 Dose: 100 mls/hr Potassium Chloride 40 meq/ (Premix) 100 mls @ 25 mls/hr IV ONETIME ONE Stop: 09/19/18 11:59 Last Admin: 09/19/18 08:19 Dose: 25 mls/hr Potassium Chloride 20 meq/ (Premix) 100 mls @ 50 mls/hr IV ONETIME ONE Stop: 09/19/18 13:59 Ketoconazole (Nizoral 2% Crm) 0 gm TOP TID [facility] Last Admin: 09/19/18 08:28 Dose: 1 applic Lorazepam (Ativan) 0.5 mg IVPUSH Q1H PRN PRN Reason: Anxiety Last Admin: 09/19/18 09:39 Dose: 0.5 mg Metoprolol Tartrate (Lopressor) 2.5 mg IVPUSH Q4H PRN PRN Reason: Hypertension Last Admin: 09/19/18 04:40 Dose: 2.5 mg Naloxone HCl (Narcan) 0.1 mg IV ASDIRECTED PRN PRN Reason: decreased respiratory rate Pantoprazole Sodium (Protonix Iv) 40 mg IV Q24H [facility] Last Admin: 09/18/18 22:03 Dose: 40 mg Discontinued Medications Acetaminophen (Tylenol) 650 mg PO Q4H PRN PRN Reason: Pain (Mild 1-3)/fever Acetaminophen (Tylenol) 650 mg RECTAL Q4H PRN PRN Reason: Mild pain/fever Albuterol (Proventil Neb Soln) 2.5 mg NEB Q4H PRN PRN Reason: Shortness Of Breath/wheezing Albuterol/Ipratropium (Duoneb 3.0-0.5 Mg/3 Ml) 3 ml INH PREPRO ONE Stop: 09/03/18 17:01 Last Admin: 09/03/18 16:25 Dose: 3 ml Albuterol/Ipratropium (Duoneb 3.0-0.5 Mg/3 Ml) 3 ml NEB QID [facility] Last Admin: 09/13/18 21:11 Dose: 3 ml Aztreonam (Azactam) Confirm Administered Dose 1 gm .ROUTE .STK-MED ONE Stop: 09/03/18 21:44 Last Admin: 09/03/18 22:15 Dose: Not Given Benazepril HCl (Lotensin) 40 mg PO ONETIME ONE Stop: 09/03/18 10:41 Last Admin: 09/03/18 11:00 Dose: 40 mg Bupivacaine HCl (Marcaine 0.5%) Confirm Administered Dose 50 ml .ROUTE .STK-MED ONE Stop: 09/07/18 06:48 Last Admin: 09/07/18 10:53 Dose: 18 ml Bupivacaine HCl (Marcaine 0.5%) Confirm Administered Dose 50 ml .ROUTE .STK-MED ONE Stop: 09/11/18 09:07 Last Admin: 09/11/18 10:49 Dose: 2 ml Ropivacaine 22 ml/Dexamethasone 8 mg/Epinephrine HCl 0.4 mg/ Sodium Chloride 55.6 ml 0 ml NERVRT ASDIRECTED [facility] Ropivacaine 22 ml/Dexamethasone 8 mg/Epinephrine HCl 0.4 mg/ Sodium Chloride 55.6 ml 0 ml NERVRT ASDIRECTED [facility] Last Admin: 09/04/18 14:03 Dose: 80 syringe Ropivacaine 22 ml/Dexamethasone 8 mg/Epinephrine HCl 0.4 mg/ Sodium Chloride 55.6 ml 0 ml NERVRT ASDIRECTED [facility] Last Admin: 09/07/18 11:07 Dose: 80 syringe Dexamethasone (Dexamethasone) Confirm Administered Dose 4 mg .ROUTE .STK-MED ONE Stop: 09/03/18 14:41 Dexamethasone (Dexamethasone) Confirm Administered Dose 4 mg .ROUTE .STK-MED ONE Stop: 09/04/18 09:47 Fentanyl (Sublimaze) 25 mcg IVPUSH ONETIME ONE Stop: 09/03/18 13:57 Last Admin: 09/03/18 14:16 Dose: 25 mcg Fentanyl (Sublimaze) 25 mcg IVPUSH Q2H PRN PRN Reason: Pain (severe 7-10) Fentanyl (Sublimaze) Confirm Administered Dose 250 mcg .ROUTE .STK-MED ONE Stop: 09/03/18 14:41 Fentanyl (Sublimaze) Confirm Administered Dose 250 mcg .ROUTE .STK-MED ONE Stop: 09/04/18 09:46 Fentanyl (Sublimaze) Confirm Administered Dose 250 mcg .ROUTE .STK-MED ONE Stop: 09/04/18 13:57 Fentanyl (Sublimaze) Confirm Administered Dose 100 mcg .ROUTE .STK-MED ONE Stop: 09/11/18 10:36 Furosemide (Lasix) 20 mg IVPUSH ONETIME ONE Stop: 09/04/18 15:10 Last Admin: 09/04/18 15:18 Dose: 20 mg Furosemide (Lasix) 40 mg IV ONETIME ONE Stop: 09/06/18 08:16 Last Admin: 09/06/18 08:26 Dose: 40 mg Furosemide (Lasix) 20 mg IV Q12H [facility] Stop: 09/07/18 20:01 Last Admin: 09/07/18 20:10 Dose: 20 mg Furosemide (Lasix) 20 mg IVPUSH Q12H [facility] Stop: 09/08/18 19:01 Last Admin: 09/08/18 19:50 Dose: 20 mg Furosemide (Lasix) 20 mg IVPUSH ONETIME ONE Stop: 09/09/18 07:01 Last Admin: 09/09/18 08:14 Dose: 20 mg Furosemide (Lasix) 20 mg IVPUSH ONETIME ONE Stop: 09/09/18 11:01 Last Admin: 09/09/18 12:38 Dose: 20 mg Furosemide (Lasix) 20 mg IVPUSH ONETIME ONE Stop: 09/09/18 20:01 Furosemide (Lasix) 20 mg IV Q8H [facility] Stop: 09/11/18 00:31 Last Admin: 09/10/18 23:50 Dose: 20 mg Furosemide (Lasix) 20 mg IV Q8H [facility] Stop: 09/12/18 00:01 Last Admin: 09/11/18 23:34 Dose: 20 mg Furosemide (Lasix) 20 mg IVPUSH Q8H [facility] Stop: 09/13/18 02:31 Last Admin: 09/13/18 02:39 Dose: 20 mg Furosemide (Lasix) 20 mg IVPUSH Q8H [facility] Stop: 09/14/18 02:31 Last Admin: 09/14/18 02:29 Dose: 20 mg Furosemide (Lasix) 40 mg IVPUSH ONETIME ONE Stop: 09/14/18 10:01 Last Admin: 09/14/18 13:28 Dose: 40 mg Furosemide (Lasix) 20 mg IVPUSH BID [facility] Furosemide (Lasix) 20 mg IVPUSH ONETIME ONE Stop: 09/15/18 06:34 Last Admin: 09/15/18 06:48 Dose: 20 mg Furosemide (Lasix) 40 mg IVPUSH Q8H [facility] Stop: 09/15/18 20:31 Last Admin: 09/15/18 20:39 Dose: 40 mg Furosemide (Lasix) 40 mg IV BID [facility] Stop: 09/16/18 21:01 Last Admin: 09/16/18 21:19 Dose: 40 mg Furosemide (Lasix) 40 mg IV Q12H [facility] Stop: 09/17/18 21:01 Last Admin: 09/17/18 21:11 Dose: 40 mg Furosemide (Lasix) 40 mg IV Q8H [facility] Stop: 09/18/18 16:01 Last Admin: 09/18/18 16:00 Dose: 40 mg Gentamicin Sulfate (Gentamicin) 1 mg IV .Pharmacy to Dose [facility] Stop: 09/08/18 14:31 Glycopyrrolate (Robinul) Confirm Administered Dose 1 mg .ROUTE .STK-MED ONE Stop: 09/03/18 14:41 Glycopyrrolate (Robinul) Confirm Administered Dose 1 mg .ROUTE .STK-MED ONE Stop: 09/04/18 09:47 Heparin Sodium (Porcine) (Heparin Sodium) Confirm Administered Dose 5,000 units .ROUTE .STK-MED ONE Stop: 09/03/18 18:32 Heparin Sodium (Porcine) (Heparin Lock Flush 100 Units/Ml) Confirm Administered Dose 500 units .ROUTE .STK-MED ONE Stop: 09/04/18 13:14 Heparin Sodium (Porcine) (Heparin Lock Flush 100 Units/Ml) Confirm Administered Dose 1,000 units .ROUTE .STK-MED ONE Stop: 09/11/18 09:07 Last Admin: 09/11/18 10:58 Dose: 1,000 units Heparin Sodium (Porcine) (Heparin Lock Flush 100 Units/Ml) Confirm Administered Dose 500 units .ROUTE .STK-MED ONE Stop: 09/11/18 10:44 Last Admin: 09/11/18 10:58 Dose: 500 units Hydromorphone HCl (Dilaudid) 0.5 mg IVPUSH ONETIME ONE Stop: 09/03/18 10:48 Last Admin: 09/03/18 11:00 Dose: 0.5 mg Hydromorphone HCl (Dilaudid) 0.5 mg IVPUSH ONETIME ONE Stop: 09/03/18 11:22 Last Admin: 09/03/18 11:25 Dose: 0.5 mg Hydromorphone HCl (Dilaudid) 0.5 mg IVPUSH ONETIME ONE Stop: 09/03/18 12:10 Last Admin: 09/03/18 12:12 Dose: 0.5 mg Hydromorphone HCl (Dilaudid) 0.5 mg IVPUSH ONETIME ONE Stop: 09/03/18 12:40 Last Admin: 09/03/18 12:44 Dose: 0.5 mg Hydromorphone HCl (Dilaudid) 1 mg IVPUSH ONETIME ONE Stop: 09/03/18 12:57 Last Admin: 09/03/18 13:00 Dose: 1 mg Hydromorphone HCl (Dilaudid [employer] 15 Mg In Ns 30 Ml) 0 mg IV ASDIRECTED PRN; Protocol PRN 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 [employer] 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 Last Admin: 09/09/18 05:52 Dose: 15 mg Sodium Chloride (Normal Saline) 1,000 mls @ 1,000 mls/hr IV .BOLUS ONE Stop: 09/03/18 12:17 Last Admin: 09/03/18 11:25 Dose: 1,000 mls/hr Piperacillin/Tazobactam/ (Dextrose 4.5 gm/ Premix) 100 mls @ 200 mls/hr IV ONETIME ONE Stop: 09/03/18 13:29 Last Admin: 09/03/18 13:04 Dose: 200 mls/hr Sodium Chloride (Normal Saline) 1,000 mls @ 500 mls/hr IV ASDIRECTED [facility] Last Admin: 09/03/18 13:00 Dose: 500 mls/hr Lactated Ringer's (Ringers, Lactated) 1,000 mls @ 125 mls/hr IV ASDIRECTED [facility] Last Admin: 09/03/18 16:07 Dose: 125 mls/hr Aztreonam 2 gm/ Sodium (Chloride) 100 mls @ 200 mls/hr IV NOW ONE Stop: 09/03/18 15:29 Last Admin: 09/03/18 14:56 Dose: 200 mls/hr Meropenem 500 mg/ Sodium (Chloride) 50 mls @ 100 mls/hr IV ONCALL ONE Stop: 09/03/18 17:29 Last Admin: 09/03/18 16:25 Dose: 100 mls/hr Piperacillin/Tazobactam/ (Dextrose 3.375 gm/ Premix) 50 mls @ 100 mls/hr IV Q6H [facility] Last Admin: 09/03/18 22:15 Dose: Not Given Sodium Chloride (Normal Saline) Confirm Administered Dose 500 mls @ as directed .ROUTE .STK-MED ONE Stop: 09/03/18 18:33 Aztreonam/Dextrose 1 gm/ (Premix) 50 mls @ 100 mls/hr IV Q8HR [facility] Meropenem 500 mg/ Sodium (Chloride) 50 mls @ 100 mls/hr IV Q8H [facility] Last Admin: 09/10/18 05:17 Dose: 100 mls/hr Sodium Chloride (Normal Saline) Confirm Administered Dose 50 mls @ as directed .ROUTE .STK-MED ONE Stop: 09/03/18 22:01 Last Admin: 09/03/18 22:21 Dose: Not Given Aztreonam/Dextrose 1 gm/ (Premix) 50 mls @ 100 mls/hr IV Q8H [facility] Last Admin: 09/04/18 07:30 Dose: Not Given Dextrose/Lactated Ringer's (Dextrose 5%-Lactated Ringers) 1,000 mls @ 100 mls/ hr IV ASDIRECTED PRN PRN Reason: Hypotension Dextrose/Lactated Ringer's (Dextrose 5%-Lactated Ringers) 1,000 mls @ 100 mls/ hr IV ASDIRECTED [facility] Last Admin: 09/05/18 02:13 Dose: 100 mls/hr Lactated Ringer's (Ringers, Lactated) 1,000 mls @ 100 mls/hr IV ASDIRECTED [facility] Last Admin: 09/04/18 04:20 Dose: 100 mls/hr Lactated Ringer's (Ringers, Lactated) 500 mls @ 500 mls/hr IV .BOLUS [facility] Last Admin: 09/04/18 01:10 Dose: 500 mls/hr Lactated Ringer's (Ringers, Lactated) 500 mls @ 500 mls/hr IV .BOLUS [facility] Last Admin: 09/04/18 03:13 Dose: 500 mls/hr Propofol (Diprivan 100 Ml) 100 mls @ 1.361 mls/hr IV TITRATE [facility]; Protocol Last Titration: 09/04/18 07:52 Dose: 14 mcg/kg/min, 3.81 mls/hr Propofol (Diprivan 100 Ml) Confirm Administered Dose 100 mls @ as directed .ROUTE .ST-MED ONE Stop: 09/04/18 03:45 Last Admin: 09/04/18 03:59 Dose: Not Given Lactated Ringer's (Ringers, Lactated) 500 mls @ 999 mls/hr IV .BOLUS [facility] Last Admin: 09/04/18 06:10 Dose: 999 mls/hr Aztreonam/Dextrose 1 gm/ (Premix) 50 mls @ 100 mls/hr IV Q8H [facility] Last Admin: 09/07/18 08:15 Dose: 100 mls/hr Lactated Ringer's (Ringers, Lactated) 500 mls @ 500 mls/hr IV ASDIRECTED [facility] Last Admin: 09/04/18 21:04 Dose: 500 mls/hr Lactated Ringer's (Ringers, Lactated) Confirm Administered Dose 1,000 mls @ as directed .ROUTE .ST-MED ONE Stop: 09/04/18 13:11 Lactated Ringer's (Ringers, Lactated) Confirm Administered Dose 1,000 mls @ as directed .ROUTE .STK-MED ONE Stop: 09/04/18 13:11 Sodium Chloride (Normal Saline) Confirm Administered Dose 10 mls @ as directed .ROUTE .ST-MED ONE Stop: 09/04/18 13:15 Magnesium Sulfate 2 gm/ Premix 50 mls @ 25 mls/hr IV Q6H [facility] Stop: 09/06/18 11:59 Last Admin: 09/06/18 10:17 Dose: 25 mls/hr Lactated Ringer's (Ringers, Lactated) 500 mls @ 500 mls/hr IV ASDIRECTED [facility] Stop: 09/04/18 17:46 Lactated Ringer's (Ringers, Lactated) 500 mls @ 500 mls/hr IV ONETIME ONE Stop: 09/04/18 19:29 Last Admin: 09/04/18 18:37 Dose: 500 mls/hr Lactated Ringer's (Ringers, Lactated) 500 mls @ 1,000 mls/hr IV ONETIME ONE Stop: 09/04/18 23:30 Last Admin: 09/04/18 23:18 Dose: 1,000 mls/hr Lactated Ringer's (Ringers, Lactated) 500 mls @ 1,000 mls/hr IV ONETIME ONE Stop: 09/05/18 01:44 Last Admin: 09/05/18 01:15 Dose: 1,000 mls/hr Lactated Ringer's (Ringers, Lactated) 1,000 mls @ 150 mls/hr IV ASDIRECTED [facility] Last Admin: 09/05/18 02:13 Dose: 150 mls/hr Lactated Ringer's (Ringers, Lactated) 500 mls @ 1,000 mls/hr IV ONETIME ONE Stop: 09/05/18 03:38 Last Admin: 09/05/18 03:15 Dose: 1,000 mls/hr Multivitamins/Minerals 10 ml/Chromium/Copper/Manganese/Seleni/Zn 1 ml/ Amino Ac/ Electrol/Dextrose/Calcium 2,011 mls @ 82 mls/hr IV .BY DURATION [facility] Stop: 09/05/18 13:25 Last Admin: 09/05/18 13:32 Dose: Not Given Amino Ac/Electrol/Dextrose/Calcium (Clinimix E 09/23) 2,000 mls @ 82 mls/hr IV .BY DURATION [facility] Stop: 09/05/18 13:25 Vancomycin HCl 1 gm/ Sodium (Chloride) 250 mls @ 167 mls/hr IV Q24H [facility] Last Admin: 09/05/18 12:34 Dose: 167 mls/hr Sodium Chloride (Normal Saline) 1,000 mls @ 50 mls/hr IV ASDIRECTED [facility] Last Admin: 09/05/18 12:51 Dose: 50 mls/hr Multivitamins/Minerals 10 ml/Chromium/Copper/Manganese/Seleni/Zn 1 ml/ Amino Ac/ Electrol/Dextrose/Calcium 2,011 mls @ 82 mls/hr IV .BY DURATION [facility] Stop: 09/08/18 13:20 Last Admin: 09/07/18 15:09 Dose: 82 mls/hr Amino Ac/Electrol/Dextrose/Calcium (Clinimix E 09/23) 2,000 mls @ 82 mls/hr IV .BY DURATION [facility] Stop: 09/08/18 13:20 Vancomycin HCl 1 gm/ Sodium (Chloride) 250 mls @ 167 mls/hr IV Q24H [facility] Last Admin: 09/06/18 12:00 Dose: 167 mls/hr Sodium Chloride (Normal Saline) 500 mls @ 500 mls/hr IV ASDIRECTED ONE Stop: 09/05/18 16:29 Last Admin: 09/05/18 15:40 Dose: 500 mls/hr Sodium Chloride (Normal Saline) 1,000 mls @ 100 mls/hr IV ASDIRECTED [facility] Last Admin: 09/07/18 07:31 Dose: 100 mls/hr Propofol (Diprivan 100 Ml) 100 mls @ 1.361 mls/hr IV TITRATE [facility]; Protocol Last Titration: 09/17/18 03:30 Dose: 25 mcg/kg/min, 6.804 mls/hr Potassium Phosphate 20 mmole/ (Sodium Chloride) 106.6667 mls @ 35 mls/hr IV Q3H [facility] Stop: 09/07/18 17:29 Last Admin: 09/07/18 15:01 Dose: 35 mls/hr Albumin Human (Albumin 25%) 25 gm in 100 mls @ 25 mls/hr IV DAILY [facility] Stop: 09/09/18 12:59 Last Admin: 09/09/18 08:25 Dose: 25 mls/hr Albumin Human (Albumin 25%) 25 gm in 100 mls @ 25 mls/hr IV Q24H [facility] Stop: 09/09/18 17:59 Last Admin: 09/09/18 14:32 Dose: 25 mls/hr Aztreonam 1 gm/ Sodium (Chloride) 50 mls @ 100 mls/hr IV Q8H [facility] Last Admin: 09/08/18 09:41 Dose: 100 mls/hr Vancomycin HCl 1 gm/ Sodium (Chloride) 250 mls @ 167 mls/hr IV Q18H [facility] Last Admin: 09/09/18 18:42 Dose: 167 mls/hr Sodium Chloride (Normal Saline) 1,000 mls @ 999 mls/hr IV .BOLUS ONE Stop: 09/07/18 17:39 Last Admin: 09/07/18 17:26 Dose: 999 mls/hr Potassium Acetate 40 meq/ (Sodium Chloride) 120 mls @ 30 mls/hr IV ONETIME ONE Stop: 09/08/18 13:59 Last Admin: 09/08/18 09:44 Dose: 30 mls/hr Sodium Chloride (Normal Saline) 100 mls @ 3 mls/sec IV ASDIRECTED [facility] Stop: 09/08/18 15:00 Last Admin: 09/08/18 14:17 Dose: 3 mls/sec Azithromycin 500 mg/ Sodium (Chloride) 250 mls @ 250 mls/hr IV Q24H [facility] Last Admin: 09/09/18 15:27 Dose: 250 mls/hr Gentamicin Sulfate 228 mg/ (Sodium Chloride) 105.7 mls @ 100 mls/hr IV ONETIME ONE Stop: 09/08/18 17:03 Last Admin: 09/08/18 16:19 Dose: 100 mls/hr Potassium Phosphate 15 mmole/ (Sodium Chloride) 105 mls @ 55 mls/hr IV Q2H [facility] Stop: 09/09/18 12:55 Last Admin: 09/09/18 15:27 Dose: 55 mls/hr Gentamicin Sulfate 228 mg/ (Sodium Chloride) 105.7 mls @ 100 mls/hr IV Q36H [facility] Last Admin: 09/10/18 03:55 Dose: 100 mls/hr Sodium Chloride (Normal Saline) 500 mls @ 999 mls/hr IV .BOLUS ONE Stop: 09/09/18 16:34 Last Admin: 09/09/18 16:18 Dose: 999 mls/hr Sodium Chloride (Normal Saline) 500 mls @ 999 mls/hr IV .BOLUS ONE Stop: 09/09/18 17:35 Last Admin: 09/09/18 17:18 Dose: 999 mls/hr Sodium Chloride (Normal Saline) 1,000 mls @ 125 mls/hr IV ASDIRECTED [facility] Last Admin: 09/10/18 01:41 Dose: 125 mls/hr Lactated Ringer's (Ringers, Lactated) 1,000 mls @ 125 mls/hr IV ASDIRECTED [facility] Last Admin: 09/11/18 01:06 Dose: 125 mls/hr Gentamicin Sulfate 228 mg/ (Sodium Chloride) 55.7 mls @ 55 mls/hr IV Q36H [facility] Last Admin: 09/14/18 16:49 Dose: 55 mls/hr Azithromycin 500 mg/ Dextrose/ (Water) 250 mls @ 250 mls/hr IV Q24H [facility] Stop: 09/17/18 17:00 Last Admin: 09/14/18 15:42 Dose: 250 mls/hr Vancomycin HCl 1 gm/ Dextrose/ (Water) 250 mls @ 167 mls/hr IV Q24H [facility] Last Admin: 09/13/18 17:48 Dose: 167 mls/hr Fluconazole/Sodium Chloride (200 mg/ Premix) 100 mls @ 100 mls/hr IV Q24H [facility] Last Admin: 09/15/18 20:38 Dose: 100 mls/hr Magnesium Sulfate 2 gm/ Premix 50 mls @ 25 mls/hr IV Q6H [facility] Stop: 09/13/18 05:59 Last Admin: 09/13/18 03:31 Dose: 25 mls/hr Potassium Phosphate 22.5 mmole (/ Dextrose/Water) 107.5 mls @ 27 mls/hr IV Q4H [facility] Stop: 09/11/18 17:29 Last Admin: 09/11/18 14:45 Dose: 27 mls/hr Lactated Ringer's (Ringers, Lactated) 1,000 mls @ 75 mls/hr IV ASDIRECTED [facility] Last Admin: 09/13/18 22:27 Dose: 75 mls/hr Sodium Chloride (Normal Saline) Confirm Administered Dose 10 mls @ as directed .ROUTE .STK-MED ONE Stop: 09/11/18 10:41 Potassium Chloride 40 meq/ (Premix) 100 mls @ 25 mls/hr IV ONETIME ONE Stop: 09/13/18 12:59 Last Admin: 09/13/18 09:31 Dose: 25 mls/hr Potassium Chloride 40 meq/ (Premix) 100 mls @ 25 mls/hr IV ONETIME ONE Stop: 09/13/18 17:59 Last Admin: 09/13/18 13:11 Dose: 25 mls/hr Albumin Human (Albumin 25%) 25 gm in 100 mls @ 25 mls/hr IV Q24H [facility] Stop: 09/16/18 11:59 Last Admin: 09/16/18 09:02 Dose: 25 mls/hr Albumin Human (Albumin 25%) 25 gm in 100 mls @ 25 mls/hr IV Q24H [facility] Stop: 09/16/18 15:59 Last Admin: 09/16/18 12:33 Dose: 25 mls/hr Potassium Chloride 40 meq/ (Premix) 100 mls @ 25 mls/hr IV ONETIME ONE Stop: 09/16/18 11:59 Last Admin: 09/16/18 08:02 Dose: 25 mls/hr Potassium Chloride 20 meq/ (Premix) 100 mls @ 50 mls/hr IV ONETIME ONE Stop: 09/16/18 13:59 Last Admin: 09/16/18 11:36 Dose: 50 mls/hr Potassium Chloride 40 meq/ (Premix) 100 mls @ 25 mls/hr IV ONETIME ONE Stop: 09/17/18 11:59 Last Admin: 09/17/18 08:43 Dose: 25 mls/hr Magnesium Sulfate 2 gm/ Premix 50 mls @ 25 mls/hr IV Q6H [facility] Stop: 09/19/18 05:59 Last Admin: 09/19/18 03:26 Dose: 25 mls/hr Potassium Chloride 40 meq/ (Premix) 100 mls @ 25 mls/hr IV ONETIME ONE Stop: 09/18/18 12:59 Last Admin: 09/18/18 08:34 Dose: 25 mls/hr Iopamidol (Isovue-300 (61%)) 100 ml IV . DIRECTED PRN PRN Reason: RADIOLOGY EXAM Stop: 09/09/18 11:03 Last Admin: 09/08/18 14:16 Dose: 100 ml Lidocaine HCl (Xylocaine 2% Viscous) Confirm Administered Dose 15 ml .ROUTE .STK -MED ONE Stop: 09/12/18 11:15 Lidocaine HCl (Xylocaine 4% Top Soln) Confirm Administered Dose 50 ml .ROUTE .STK-MED ONE Stop: 09/12/18 11:15 Lidocaine HCl (Xylocaine 4% Top Soln) Confirm Administered Dose 50 ml .ROUTE .STK-MED ONE Stop: 09/14/18 06:57 Last Admin: 09/14/18 07:20 Dose: 20 ml Lidocaine HCl (Xylocaine-Mpf 1%) 5 ml INJECT ONETIME ONE Stop: 09/17/18 06:31 Last Admin: 09/17/18 06:52 Dose: 5 ml Lidocaine/Epinephrine (Xylocaine 1% With Epinephrine 1:100,000) Confirm Administered Dose 50 ml .ROUTE .STK-MED ONE Stop: 09/07/18 06:48 Last Admin: 09/07/18 10:54 Dose: 18 ml Lidocaine/Epinephrine (Xylocaine 1% With Epinephrine 1:100,000) Confirm Administered Dose 50 ml .ROUTE .STK-MED ONE Stop: 09/11/18 09:07 Last Admin: 09/11/18 10:49 Dose: 2 ml Lorazepam (Ativan) 0.5 mg IVPUSH Q4H PRN PRN Reason: Nausea/Vomiting Lorazepam (Ativan) 0.5 mg IVPUSH Q3H PRN PRN Reason: AGITATION Last Admin: 09/18/18 13:47 Dose: 0.5 mg Meropenem (Merrem) Confirm Administered Dose 1,000 mg .ROUTE .STK-MED ONE Stop: 09/03/18 17:54 Last Admin: 09/03/18 18:32 Dose: 3,500 mg Meropenem (Merrem) Confirm Administered Dose 1,000 mg .ROUTE .STK-MED ONE Stop: 09/03/18 18:04 Meropenem (Merrem) Confirm Administered Dose 2,000 mg .ROUTE .STK-MED ONE Stop: 09/03/18 18:18 Meropenem (Merrem) Confirm Administered Dose 500 mg .ROUTE .STK-MED ONE Stop: 09/07/18 06:48 Last Admin: 09/07/18 10:53 Dose: 500 mg Metoprolol Tartrate (Lopressor) 25 mg PO ONETIME ONE Stop: 09/03/18 10:41 Last Admin: 09/03/18 11:00 Dose: 25 mg Metoprolol Tartrate (Lopressor) 5 mg IVPUSH Q6H [facility] Last Admin: 09/08/18 09:25 Dose: 5 mg Metoprolol Tartrate (Lopressor) 2.5 mg IVPUSH Q6H [facility] Last Admin: 09/10/18 03:55 Dose: 2.5 mg Metoprolol Tartrate (Lopressor) Confirm Administered Dose 5 mg .ROUTE .STK-MED ONE Stop: 09/08/18 21:53 Last Admin: 09/08/18 22:19 Dose: Not Given Metoprolol Tartrate (Lopressor) 2.5 mg IVPUSH Q4H [facility] Last Admin: 09/11/18 21:25 Dose: Not Given Neostigmine Methylsulfate (Neostigmine) Confirm Administered Dose 5 mg .ROUTE .STK-MED ONE Stop: 09/03/18 14:41 Neostigmine Methylsulfate (Neostigmine) Confirm Administered Dose 5 mg .ROUTE .STK-MED ONE Stop: 09/04/18 09:47 Non-Formulary Medication (Total Parenteral Nutrition, Central) 0 ml IV [facility] Stop: 09/12/18 13:31 Non-Formulary Medication (Total Parenteral Nutrition, Central) 0 ml IV ASD[facility] Stop: 09/13/18 13:00 Ondansetron HCl (Zofran Odt) 4 mg PO Q6H PRN PRN Reason: Nausea able to take PO Ondansetron HCl (Zofran) 4 mg IV Q6H PRN PRN Reason: Nausea/Vomiting Ondansetron HCl (Zofran) Confirm Administered Dose 4 mg .ROUTE .STK-MED ONE Stop: 09/03/18 14:41 Ondansetron HCl (Zofran) Confirm Administered Dose 4 mg .ROUTE .STK-MED ONE Stop: 09/04/18 09:47 Pantoprazole Sodium (Protonix Iv) 40 mg IV Q12H [facility] Last Admin: 09/03/18 16:07 Dose: 40 mg Piperacillin Sod/Tazobactam Sod (Zosyn) 10.125 gm .XX ASDIRECTED [facility] Stop: 09/04/18 15:00 Last Admin: 09/04/18 14:04 Dose: 10.125 gm Propofol (Diprivan 20 Ml) Confirm Administered Dose 200 mg .ROUTE .STK-MED ONE Stop: 09/03/18 14:41 Propofol (Diprivan 20 Ml) Confirm Administered Dose 200 mg .ROUTE .STK-MED ONE Stop: 09/04/18 09:47 Propofol (Diprivan 20 Ml) Confirm Administered Dose 200 mg .ROUTE .STK-MED ONE Stop: 09/06/18 07:01 Rocuronium Taiban (Zemuron) Confirm Administered Dose 50 mg .ROUTE .STK-MED ONE Stop: 09/03/18 14:41 Rocuronium Taiban (Zemuron) Confirm Administered Dose 50 mg .ROUTE .STK-MED ONE Stop: 09/04/18 09:47 Succinylcholine Chloride (Quelicin) Confirm Administered Dose 200 mg .ROUTE .STK -MED ONE Stop: 09/03/18 14:41 Succinylcholine Chloride (Quelicin) Confirm Administered Dose 200 mg .ROUTE .STK -MED ONE Stop: 09/04/18 09:47 Succinylcholine Chloride (Quelicin) Confirm Administered Dose 200 mg .ROUTE .STK -MED ONE Stop: 09/06/18 07:01 - Exam Quality Assessment: Supplemental Oxygen, Urine Catheter General: Alert, Mild Distress. No: Oriented Lungs: Clear to Auscultation. No: Normal Respiratory Effort (increased work of breathing ) Cardiovascular: Regular Rhythm, Tachycardia GI/Abdominal Exam: Soft, No Distention, Abnormal Bowel Sounds (hypoactive ) Extremities: Pedal Edema. No: Increased Warmth Skin: Warm, Dry, Rash (indurated erythematous rash in the groin and proximal thighs ) Psy/Mental Status: Alert, Anxious - Problem List & Annotations (1) Diverticulitis of colon with perforation SNOMED Code(s): 28853405 Code(s): K57.20 - DVTRCLI OF LG INT W PERFORATION AND ABSCESS W/O BLEEDING Status: Acute Current Visit: Yes Qualifiers: Diverticulitis bleeding: without bleeding Qualified Code(s): K57.20 - Diverticulitis of large intestine with perforation and abscess without bleeding (2) Sepsis SNOMED Code(s): 70591419 Code(s): A41.9 - SEPSIS, UNSPECIFIED ORGANISM Status: Acute Current Visit : Yes Qualifiers: Sepsis type: sepsis due to unspecified organism Qualified Code(s): A41.9 - Sepsis, unspecified organism (3) Acute kidney injury SNOMED Code(s): 87578343, 17716653 Code(s): N17.9 - ACUTE KIDNEY FAILURE, UNSPECIFIED Status: Acute Current Visit: Yes (4) Leukopenia SNOMED Code(s): 02313337, 499249576 Code(s): D72.819 - DECREASED WHITE BLOOD CELL COUNT, UNSPECIFIED Status: Acute Current Visit: Yes Qualifiers: Leukopenia type: neutropenia Neutropenia type: other Qualified Code(s): D70.8 - Other neutropenia - Problem List Review Problem List Initiated/Reviewed/Updated: Yes - My Orders Last 24 Hours: My Active Orders 09/18/18 14:48 BIPAP Adult [RT BiPAP/CPAP] [RC] ASDIRECTED 09/18/18 14:53 LORazepam [Ativan] 0.5 mg IVPUSH Q1H PRN 09/20/18 05:11 CXR [Chest 1V Frontal] [CR] AM - Plan Plan:: ASSESSMENT AND PLAN Acute respiratory failure with hypoxia and hypercapnia - patient was extubated yesterday but those of profound weakness required reintubation today. Fluid status has been steadily improving. Possible contribution from pneumonia though I'm skeptical that the yeast that is isolated is a true pathogen causing her respiratory difficulties. -furosemide 40 mg 2 doses today, reassess volume status tomorrow -Continue meropenem and fluconazole -Mechanical ventilation -Light sedation -Daily chest x-rays -Tracheostomy planned for tomorrow morning with recent prolonged intubation Perforated sigmoid colon with sepsis - Initial surgical resection on 09/03 and Second Look laparotomy on 09/04. Sepsis has resolved. Cultures grew out Klebsiella, Escherichia coli and anaerobic bacteria. stable from this standpoint and she has completed adequate anabiotic for this infection. Malnourished with essentially no oral intake in the last 2 weeks. -Pain control as indicated -TPN Anemia of critical illness - hemoglobin now stable with no evidence for bleeding. -Transfuse if less than 7 since she is currently hemodynamically stable and oxygenating well Acute kidney injury - renal function back to normal and stable. She does have an elevated BUN out of proportion to her creatinine but this is slowly trending down. -Management as above -Repeat labs in the morning Mixed delirium - She was more lethargic this morning. -Symptomatically management and treatment of the above conditions -Minimize sedation as able Maintenance issues - - DVT prophylaxis - mechanical - GI prophylaxis - PPI - Nutrition - nothing by mouth - Rubin catheter - placed for strict intake and output monitoring and a critical patient Disposition - discharge plan depending on needs at the time of discharge Santana Cunningham M.D.
[2018-09-19] MEDS ORDERED: Potassium Chloride 20 MEQ in Premix Bag 1 BAG IV ONE (12:00)
[2018-09-19] MEDS: Morphine 2 MG/ML Syringe IVPUSH PRN ×2 (13:35→16:04)
[2018-09-19] MEDS: hydrALAZINE 20 MG/ML SDV IVPUSH PRN (13:41)
[2018-09-19] MEDS ORDERED: Propofol 200 MG/20 ML SDV ONE (14:21)
--- NOTE | 2018-09-19 15:16 | ANES ---
DATE OF SERVICE: 09/19/2018 TIME: 1430. INDICATIONS: I was called to the intensive care unit by Dr. Cunningham to evaluate Ms. Muniz for an intubation. She had been intubated last week, and I think they extubated her on Friday, and now, she is not doing so well and needs intubation. It was discussed with her son, and he wished to proceed with intubation. TECHNIQUE: I did give her 200 mg propofol, and an 8.0 endotracheal tube was inserted after a good laryngoscopy with a 3 MAC. There was positive breath sounds equally and bilaterally, although diminished. There was positive end-tidal CO2. The endotracheal tube was taped per the respiratory therapy staff, and she was adequately ventilated. She remained stable throughout the procedure. I do believe, they are going to plan on doing a tracheostomy tomorrow at 8 o'clock. Orville Wright CRNA /[id number]
--- NOTE | 2018-09-19 15:46 | CRLCR ---
INDICATION: Intubation. TECHNIQUE: Semi upright portable AP image of the chest. COMPARISON: Portable chest x-ray performed yesterday. FINDINGS: Increased infiltrate in the right upper lobe. No other change. Endotracheal tube tip 2.5 cm above the pham. NG tube running off the field of view. Central line in the SVC. IMPRESSION: Increased right upper lobe infiltrate. Otherwise unchanged. Dictated by Kevin Chao MD @ Sep 19 2018 3:42PM Signed by Dr. Kevin Chao @ Sep 19 2018 3:44PM
[2018-09-19] MEDS: Fluconazole/Normal Saline 400 MG in Premix Bag 1 BAG IV SCH (19:22)
[2018-09-19] MEDS: Heparin Sodium 5,000 UNITS in Sodium Chloride 0.9% 500 ML IV SCH (21:38)
[2018-09-19] MEDS: Pantoprazole 40 MG Vial IV SCH (21:46)
[2018-09-20] MEDS: 1: AA 5%/Calcium/D20W/Lytes 1,000 ML with MVI, Adult with Vitamin K 10 ML, Chromium/Copp IV SCH ×3 (01:21)
[2018-09-20] MEDS: HYDROmorphone 0.5 MG/0.5 ML Syringe IVPUSH PRN ×5 (03:33→22:20)
[2018-09-20] MEDS: Dimethicone 20%/Zinc Oxide 25% 56 GM Spray Bottle TOP PRN (04:02)
[2018-09-20] MEDS: SODIUM CHLORIDE 0.9% IV SCH ×2 (05:35→13:05)
[2018-09-20] MEDS: MEROPENEM IV SCH ×2 (05:35→13:05)
--- NOTE | 2018-09-20 06:03 | CRLCR ---
INDICATION: Intubation follow-up TECHNIQUE: Chest 1 views COMPARISON: Chest x-ray 09/19/2018 FINDINGS: Cardiovascular and mediastinum: Normal heart size with endotracheal tube at the distal trachea. Nasogastric tube extends below the hemidiaphragm. Right subclavian line extends to the distal superior vena cava. Lungs and pleural spaces: Small bilateral pleural effusions with retrocardiac airspace disease as well some patchy right mid-upper lung opacities. Bones and soft tissues: Abdominal skin yassine. IMPRESSION: Small bilateral pleural effusions with retrocardiac and right upper lung airspace opacities. Compared to the prior examination, right upper lung airspace opacities are mildly improved. Dictated by Keven Cronin MD @ Sep 20 2018 5:59AM Signed by Dr. Keven Cronin @ Sep 20 2018 6:01AM
[2018-09-20] MEDS ORDERED: Lidocaine 2% Viscous Solution 15 ML Cup ONE (06:36)
[2018-09-20] MEDS ORDERED: Lidocaine 4% Top Soln 50 ML Bottle ONE (06:37)
[2018-09-20] MEDS ORDERED: Lidocaine 1% with EPINEPHrine 1:100,000 50 ML MDV ONE (06:37)
[2018-09-20] MEDS: Albuterol/Ipratropium 3.0-0.5 MG/3 ML Neb Soln NEB SCH ×4 (07:00→20:53)
[2018-09-20] MEDS: Acetylcysteine 20% 200 MG/ML 4 ML Nebulizer Soln SDV NEB SCH (07:00)
[2018-09-20] MEDS ORDERED: fentaNYL 250 MCG/5 ML SDV ONE (07:49)
[2018-09-20] MEDS ORDERED: Rocuronium 50 MG/5 ML Vial ONE (07:49)
[2018-09-20] MEDS: Ketoconazole 2% Crm 30 GM Tube TOP SCH ×3 (09:54→20:54)
[2018-09-20] MEDS: Furosemide 20 MG/2 ML VIAL IVPUSH SCH ×2 (10:23→21:52)
--- NOTE | 2018-09-20 10:32 | PCM.PN ---
- General Info Date of Service: 09/20/18 Subjective Update: there were no acute events overnight. The patient remains intubated and is lethargic today as she just returned from her tracheostomy procedure. She is not able to follow commands or try to answer questions at this time. She is requiring minimal support from the ventilator. Good response to diuresis yesterday and edema has improved significantly. She has not had any fevers. Seems to be tolerating current medications including antibiotics. Functional Status: Reports: Other (sedated) - Review of Systems General: Denies: Fever - Patient Data Vitals - Most Recent: Last Vital Signs Temp 37.0 C 09/20/18 04:00 Pulse 93 09/20/18 09:00 Resp 16 09/20/18 09:00 BP 135/50 L 09/20/18 09:00 Pulse Ox 99 09/20/18 09:00 Weight - Most Recent: 78.471 kg I&O - Last 24 Hours: Intake & Output 09/19/18 09/20/18 09/20/18 22:59 06:59 14:59 Intake Total 970 1437 Output Total 2580 520 45 Balance -1610 917 -45 Lab Results Last 24 Hours: Laboratory Results - last 24 hr 09/19/18 09/20/18 09/20/18 Range/Units 16:00 04:25 04:25 WBC 9.0 (4.5-11.0) K/uL RBC 2.98 L (3.30-5.50) M/uL Hgb 9.2 L (12.0-15.0) g/dL Hct 29.2 L (36.0-48.0) % MCV 98 (80-98) fL MCH 31 (27-31) pg MCHC 32 (32-36) % Plt Count 335 (150-400) K/uL Puncture Site Line ABG pH 7.498 H (7.350-7.450) ABG pCO2 40.9 (35.0-42.0) mmHg ABG pO2 94.2 (75.0-100.0) mmHg ABG HCO3 31.5 H (22.0-26.0) mmol/L ABG Total CO2 28.5 H (21.0-25.0) mmol/L ABG O2 Saturation 97.5 (95.0-98.0) % ABG O2 Content 14.5 L (15.0-23.0) %vol ABG Base Excess 7.9 mm/L ABG Hemoglobin 10.6 L (12.0-16.0) g/dL ABG Oxyhemoglobin 96.2 % ABG Carboxyhemoglobin 0.7 (0.0-1.6) % ABG Methemoglobin 0.6 % Woody Test TNP O2 Delivery Device Ventilator Oxygen Flow Rate L Sodium 140 (140-148) mmol/L Potassium 3.8 (3.6-5.2) mmol/L Chloride 102 (100-108) mmol/L Carbon Dioxide 32 (21-32) mmol/L Anion Gap 5.6 (5.0-14.0) mmol/L BUN 47 H (7-18) mg/dL Creatinine 0.8 (0.6-1.0) mg/dL Est Cr Clr Drug Dosing 44.61 mL/min Estimated GFR (MDRD) > 60 (>60) Glucose 119 H (74-106) mg/dL Calcium 9.1 (8.5-10.1) mg/dL Phosphorus 4.5 (2.5-4.9) mg/dL Magnesium 2.6 H D (1.8-2.4) mg/dL Total Bilirubin 1.0 (0.2-1.0) mg/dL AST 59 H (15-37) U/L ALT 95 H (12-78) U/L Alkaline Phosphatase 274 H (46-116) U/L NT-Pro-B Natriuret Pep 5631 H (5-450) pg/mL Total Protein 5.6 L (6.4-8.2) g/dL Albumin 1.9 L (3.4-5.0) g/dL Globulin 3.7 H (2.3-3.5) g/dL Albumin/Globulin Ratio 0.5 L (1.2-2.2) 09/20/18 Range/Units 04:25 WBC (4.5-11.0) K/uL RBC (3.30-5.50) M/uL Hgb (12.0-15.0) g/dL Hct (36.0-48.0) % MCV (80-98) fL MCH (27-31) pg MCHC (32-36) % Plt Count (150-400) K/uL Puncture Site Line ABG pH 7.538 H (7.350-7.450) ABG pCO2 36.7 (35.0-42.0) mmHg ABG pO2 114.0 H (75.0-100.0) mmHg ABG HCO3 31.1 H (22.0-26.0) mmol/L ABG Total CO2 28.4 H (21.0-25.0) mmol/L ABG O2 Saturation 98.7 H (95.0-98.0) % ABG O2 Content 13.1 L (15.0-23.0) %vol ABG Base Excess 8.1 mm/L ABG Hemoglobin 9.5 L (12.0-16.0) g/dL ABG Oxyhemoglobin 96.4 % ABG Carboxyhemoglobin 1.9 H (0.0-1.6) % ABG Methemoglobin 0.4 % Woody Test O2 Delivery Device Ventilator Oxygen Flow Rate L Sodium (140-148) mmol/L Potassium (3.6-5.2) mmol/L Chloride (100-108) mmol/L Carbon Dioxide (21-32) mmol/L Anion Gap (5.0-14.0) mmol/L BUN (7-18) mg/dL Creatinine (0.6-1.0) mg/dL Est Cr Clr Drug Dosing mL/min Estimated GFR (MDRD) (>60) Glucose (74-106) mg/dL Calcium (8.5-10.1) mg/dL Phosphorus (2.5-4.9) mg/dL Magnesium (1.8-2.4) mg/dL Total Bilirubin (0.2-1.0) mg/dL AST (15-37) U/L ALT (12-78) U/L Alkaline Phosphatase (46-116) U/L NT-Pro-B Natriuret Pep (5-450) pg/mL Total Protein (6.4-8.2) g/dL Albumin (3.4-5.0) g/dL Globulin (2.3-3.5) g/dL Albumin/Globulin Ratio (1.2-2.2) Joseph Results Last 24 Hours: Microbiology 09/17/18 05:06 Gram Stain - Final Endotrachael Aspirate Respiratory Culture - Final Yeast Isolated Med Orders - Current: Current Medications Albuterol (Proventil Neb Soln) 2.5 mg NEB Q4H PRN PRN Reason: Dyspnea Albuterol/Ipratropium (Duoneb 3.0-0.5 Mg/3 Ml) 3 ml NEB QIDRT [facility] Last Admin: 09/20/18 07:00 Dose: 3 ml Dimethicone/Zinc Oxide (Rash Relief-Zinc Oxide Addison) 0 gm TOP ASDIRECTED PRN PRN Reason: Inflammation Last Admin: 09/20/18 04:02 Dose: 1 spray Furosemide (Lasix) 20 mg IVPUSH Q12H [facility] Stop: 09/20/18 22:01 Last Admin: 09/20/18 10:23 Dose: 20 mg Hydralazine HCl (Apresoline) 5 mg IVPUSH Q4H PRN PRN Reason: Hypertension Last Admin: 09/19/18 13:41 Dose: 5 mg Hydromorphone HCl (Dilaudid) 0.5 mg IVPUSH Q2H PRN PRN Reason: Pain Last Admin: 09/20/18 03:33 Dose: 0.5 mg Hydroxyzine HCl (Vistaril) 50 mg IM Q4H PRN PRN Reason: Pain Heparin Sodium (Porcine) 5,000 (units/ Sodium Chloride) 501 mls @ 5 mls/hr IV ASDIRECTED [facility] Last Admin: 09/16/18 14:00 Dose: 5 mls/hr Heparin Sodium (Porcine) 5,000 (units/ Sodium Chloride) 501 mls @ 5 mls/hr IV ASDIRECTED [facility] Last Admin: 09/19/18 21:38 Dose: 5 mls/hr Sodium Chloride (Normal Saline) 1,000 mls @ 0 mls/hr IV ASDIRECTED [facility] Last Admin: 09/19/18 05:15 Dose: 12.5 mls/hr Multivitamins/Minerals 10 ml/Chromium/Copper/Manganese/Seleni/Zn 1 ml/ Amino Ac/ Electrol/Dextrose/Calcium 1,011 mls @ 62 mls/hr IV .BY DURATION [facility] Last Admin: 09/19/18 09:10 Dose: 62 mls/hr Amino Ac/Electrol/Dextrose/Calcium (Clinimix E 09/28) 1,000 mls @ 62 mls/hr IV .BY DURATION [facility] Last Admin: 09/20/18 01:21 Dose: 62 mls/hr Meropenem 500 mg/ Sodium (Chloride) 25 mls @ 50 mls/hr IV Q8H [facility] Last Admin: 09/20/18 05:35 Dose: 50 mls/hr Lactated Ringer's (Ringers, Lactated) 1,000 mls @ 25 mls/hr IV ASDIRECTED [facility] Last Admin: 09/18/18 21:11 Dose: 25 mls/hr Fluconazole/Sodium Chloride (400 mg/ Premix) 200 mls @ 100 mls/hr IV Q24H [facility] Last Admin: 09/19/18 19:22 Dose: 100 mls/hr Propofol (Diprivan 100 Ml) 100 mls @ 2.354 mls/hr IV TITRATE [facility]; Protocol Last Admin: 09/20/18 05:35 Dose: 15 mcg/kg/min, 7.062 mls/hr Ketoconazole (Nizoral 2% Crm) 0 gm TOP TID [facility] Last Admin: 09/20/18 09:54 Dose: 1 applic Lorazepam (Ativan) 0.5 mg IVPUSH Q1H PRN PRN Reason: Anxiety Last Admin: 09/19/18 11:20 Dose: 0.5 mg Metoprolol Tartrate (Lopressor) 2.5 mg IVPUSH Q4H PRN PRN Reason: Hypertension Last Admin: 09/19/18 11:44 Dose: 2.5 mg Naloxone HCl (Narcan) 0.1 mg IV ASDIRECTED PRN PRN Reason: decreased respiratory rate Pantoprazole Sodium (Protonix Iv) 40 mg IV Q24H [facility] Last Admin: 09/19/18 21:46 Dose: 40 mg Discontinued Medications Acetaminophen (Tylenol) 650 mg PO Q4H PRN PRN Reason: Pain (Mild 1-3)/fever Acetaminophen (Tylenol) 650 mg RECTAL Q4H PRN PRN Reason: Mild pain/fever Acetylcysteine (Mucomyst 20%) 200 mg NEB QIDRT [facility] Last Admin: 09/20/18 07:00 Dose: 200 mg Albuterol (Proventil Neb Soln) 2.5 mg NEB Q4H PRN PRN Reason: Shortness Of Breath/wheezing Albuterol/Ipratropium (Duoneb 3.0-0.5 Mg/3 Ml) 3 ml INH PREPRO ONE Stop: 09/03/18 17:01 Last Admin: 09/03/18 16:25 Dose: 3 ml Albuterol/Ipratropium (Duoneb 3.0-0.5 Mg/3 Ml) 3 ml NEB QID NAHED Last Admin: 09/13/18 21:11 Dose: 3 ml Aztreonam (Azactam) Confirm Administered Dose 1 gm .ROUTE .STK-MED ONE Stop: 09/03/18 21:44 Last Admin: 09/03/18 22:15 Dose: Not Given Benazepril HCl (Lotensin) 40 mg PO ONETIME ONE Stop: 09/03/18 10:41 Last Admin: 09/03/18 11:00 Dose: 40 mg Benazepril HCl (Lotensin) 40 mg NGTUBE DAILY [facility] Last Admin: 09/20/18 09:55 Dose: Not Given Bupivacaine HCl (Marcaine 0.5%) Confirm Administered Dose 50 ml .ROUTE .STK-MED ONE Stop: 09/07/18 06:48 Last Admin: 09/07/18 10:53 Dose: 18 ml Bupivacaine HCl (Marcaine 0.5%) Confirm Administered Dose 50 ml .ROUTE .STK-MED ONE Stop: 09/11/18 09:07 Last Admin: 09/11/18 10:49 Dose: 2 ml Ropivacaine 22 ml/Dexamethasone 8 mg/Epinephrine HCl 0.4 mg/ Sodium Chloride 55.6 ml 0 ml NERVRT ASDIRECTED NAHED Ropivacaine 22 ml/Dexamethasone 8 mg/Epinephrine HCl 0.4 mg/ Sodium Chloride 55.6 ml 0 ml NERVRT ASDIRECTED [facility] Last Admin: 09/04/18 14:03 Dose: 80 syringe Ropivacaine 22 ml/Dexamethasone 8 mg/Epinephrine HCl 0.4 mg/ Sodium Chloride 55.6 ml 0 ml NERVRT ASDIRECTED [facility] Last Admin: 09/07/18 11:07 Dose: 80 syringe Dexamethasone (Dexamethasone) Confirm Administered Dose 4 mg .ROUTE .STK-MED ONE Stop: 09/03/18 14:41 Dexamethasone (Dexamethasone) Confirm Administered Dose 4 mg .ROUTE .STK-MED ONE Stop: 09/04/18 09:47 Fentanyl (Sublimaze) 25 mcg IVPUSH ONETIME ONE Stop: 09/03/18 13:57 Last Admin: 09/03/18 14:16 Dose: 25 mcg Fentanyl (Sublimaze) 25 mcg IVPUSH Q2H PRN PRN Reason: Pain (severe 7-10) Fentanyl (Sublimaze) Confirm Administered Dose 250 mcg .ROUTE .STK-MED ONE Stop: 09/03/18 14:41 Fentanyl (Sublimaze) Confirm Administered Dose 250 mcg .ROUTE .STK-MED ONE Stop: 09/04/18 09:46 Fentanyl (Sublimaze) Confirm Administered Dose 250 mcg .ROUTE .STK-MED ONE Stop: 09/04/18 13:57 Fentanyl (Sublimaze) Confirm Administered Dose 100 mcg .ROUTE .STK-MED ONE Stop: 09/11/18 10:36 Fentanyl (Sublimaze) Confirm Administered Dose 250 mcg .ROUTE .STK-MED ONE Stop: 09/20/18 07:50 Furosemide (Lasix) 20 mg IVPUSH ONETIME ONE Stop: 09/04/18 15:10 Last Admin: 09/04/18 15:18 Dose: 20 mg Furosemide (Lasix) 40 mg IV ONETIME ONE Stop: 09/06/18 08:16 Last Admin: 09/06/18 08:26 Dose: 40 mg Furosemide (Lasix) 20 mg IV Q12H [facility] Stop: 09/07/18 20:01 Last Admin: 09/07/18 20:10 Dose: 20 mg Furosemide (Lasix) 20 mg IVPUSH Q12H [facility] Stop: 09/08/18 19:01 Last Admin: 09/08/18 19:50 Dose: 20 mg Furosemide (Lasix) 20 mg IVPUSH ONETIME ONE Stop: 09/09/18 07:01 Last Admin: 09/09/18 08:14 Dose: 20 mg Furosemide (Lasix) 20 mg IVPUSH ONETIME ONE Stop: 09/09/18 11:01 Last Admin: 09/09/18 12:38 Dose: 20 mg Furosemide (Lasix) 20 mg IVPUSH ONETIME ONE Stop: 09/09/18 20:01 Furosemide (Lasix) 20 mg IV Q8H [facility] Stop: 09/11/18 00:31 Last Admin: 09/10/18 23:50 Dose: 20 mg Furosemide (Lasix) 20 mg IV Q8H NAHED Stop: 09/12/18 00:01 Last Admin: 09/11/18 23:34 Dose: 20 mg Furosemide (Lasix) 20 mg IVPUSH Q8H [facility] Stop: 09/13/18 02:31 Last Admin: 09/13/18 02:39 Dose: 20 mg Furosemide (Lasix) 20 mg IVPUSH Q8H [facility] Stop: 09/14/18 02:31 Last Admin: 09/14/18 02:29 Dose: 20 mg Furosemide (Lasix) 40 mg IVPUSH ONETIME ONE Stop: 09/14/18 10:01 Last Admin: 09/14/18 13:28 Dose: 40 mg Furosemide (Lasix) 20 mg IVPUSH BID [facility] Furosemide (Lasix) 20 mg IVPUSH ONETIME ONE Stop: 09/15/18 06:34 Last Admin: 09/15/18 06:48 Dose: 20 mg Furosemide (Lasix) 40 mg IVPUSH Q8H [facility] Stop: 09/15/18 20:31 Last Admin: 09/15/18 20:39 Dose: 40 mg Furosemide (Lasix) 40 mg IV BID [facility] Stop: 09/16/18 21:01 Last Admin: 09/16/18 21:19 Dose: 40 mg Furosemide (Lasix) 40 mg IV Q12H [facility] Stop: 09/17/18 21:01 Last Admin: 09/17/18 21:11 Dose: 40 mg Furosemide (Lasix) 40 mg IV Q8H [facility] Stop: 09/18/18 16:01 Last Admin: 09/18/18 16:00 Dose: 40 mg Furosemide (Lasix) 40 mg IV Q12H [facility] Stop: 09/19/18 20:01 Last Admin: 09/19/18 19:23 Dose: 40 mg Gentamicin Sulfate (Gentamicin) 1 mg IV .Pharmacy to Dose [facility] Stop: 09/08/18 14:31 Glycopyrrolate (Robinul) Confirm Administered Dose 1 mg .ROUTE .STK-MED [facility] Stop: 09/03/18 14:41 Glycopyrrolate (Robinul) Confirm Administered Dose 1 mg .ROUTE .STK-MED ONE Stop: 09/04/18 09:47 Heparin Sodium (Porcine) (Heparin Sodium) Confirm Administered Dose 5,000 units .ROUTE .STK-MED [facility] Stop: 09/03/18 18:32 Heparin Sodium (Porcine) (Heparin Lock Flush 100 Units/Ml) Confirm Administered Dose 500 units .ROUTE .STK-MED ONE Stop: 09/04/18 13:14 Heparin Sodium (Porcine) (Heparin Lock Flush 100 Units/Ml) Confirm Administered Dose 1,000 units .ROUTE .STK-MED ONE Stop: 09/11/18 09:07 Last Admin: 09/11/18 10:58 Dose: 1,000 units Heparin Sodium (Porcine) (Heparin Lock Flush 100 Units/Ml) Confirm Administered Dose 500 units .ROUTE .STK-MED ONE Stop: 09/11/18 10:44 Last Admin: 09/11/18 10:58 Dose: 500 units Hydromorphone HCl (Dilaudid) 0.5 mg IVPUSH ONETIME ONE Stop: 09/03/18 10:48 Last Admin: 09/03/18 11:00 Dose: 0.5 mg Hydromorphone HCl (Dilaudid) 0.5 mg IVPUSH ONETIME ONE Stop: 09/03/18 11:22 Last Admin: 09/03/18 11:25 Dose: 0.5 mg Hydromorphone HCl (Dilaudid) 0.5 mg IVPUSH ONETIME ONE Stop: 09/03/18 12:10 Last Admin: 09/03/18 12:12 Dose: 0.5 mg Hydromorphone HCl (Dilaudid) 0.5 mg IVPUSH ONETIME ONE Stop: 09/03/18 12:40 Last Admin: 09/03/18 12:44 Dose: 0.5 mg Hydromorphone HCl (Dilaudid) 1 mg IVPUSH ONETIME ONE Stop: 09/03/18 12:57 Last Admin: 09/03/18 13:00 Dose: 1 mg Hydromorphone HCl (Dilaudid [employer] 15 Mg In Ns 30 Ml) 0 mg IV ASDIRECTED PRN; Protocol PRN Reason: 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 Last Admin: 09/09/18 05:52 Dose: 15 mg Sodium Chloride (Normal Saline) 1,000 mls @ 1,000 mls/hr IV .BOLUS ONE Stop: 09/03/18 12:17 Last Admin: 09/03/18 11:25 Dose: 1,000 mls/hr Piperacillin/Tazobactam/ (Dextrose 4.5 gm/ Premix) 100 mls @ 200 mls/hr IV ONETIME ONE Stop: 04/25/19 13:29 Last Admin: 09/03/18 13:04 Dose: 200 mls/hr Sodium Chloride (Normal Saline) 1,000 mls @ 500 mls/hr IV ASDIRECTED [facility] Last Admin: 09/03/18 13:00 Dose: 500 mls/hr Lactated Ringer's (Ringers, Lactated) 1,000 mls @ 125 mls/hr IV ASDIRECTED [facility] Last Admin: 09/03/18 16:07 Dose: 125 mls/hr Aztreonam 2 gm/ Sodium (Chloride) 100 mls @ 200 mls/hr IV NOW ONE Stop: 09/03/18 15:29 Last Admin: 09/03/18 14:56 Dose: 200 mls/hr Meropenem 500 mg/ Sodium (Chloride) 50 mls @ 100 mls/hr IV ONCALL ONE Stop: 09/03/18 17:29 Last Admin: 09/03/18 16:25 Dose: 100 mls/hr Piperacillin/Tazobactam/ (Dextrose 3.375 gm/ Premix) 50 mls @ 100 mls/hr IV Q6H [facility] Last Admin: 09/03/18 22:15 Dose: Not Given Sodium Chloride (Normal Saline) Confirm Administered Dose 500 mls @ as directed .ROUTE .STK-MED ONE Stop: 09/03/18 18:33 Aztreonam/Dextrose 1 gm/ (Premix) 50 mls @ 100 mls/hr IV Q8HR [facility] Meropenem 500 mg/ Sodium (Chloride) 50 mls @ 100 mls/hr IV Q8H [facility] Last Admin: 09/10/18 05:17 Dose: 100 mls/hr Sodium Chloride (Normal Saline) Confirm Administered Dose 50 mls @ as directed .ROUTE .STK-MED ONE Stop: 09/03/18 22:01 Last Admin: 09/03/18 22:21 Dose: Not Given Aztreonam/Dextrose 1 gm/ (Premix) 50 mls @ 100 mls/hr IV Q8H [facility] Last Admin: 09/04/18 07:30 Dose: Not Given Dextrose/Lactated Ringer's (Dextrose 5%-Lactated Ringers) 1,000 mls @ 100 mls/ hr IV ASDIRECTED PRN PRN Reason: Hypotension Dextrose/Lactated Ringer's (Dextrose 5%-Lactated Ringers) 1,000 mls @ 100 mls/ hr IV ASDIRECTED [facility] Last Admin: 09/05/18 02:13 Dose: 100 mls/hr Lactated Ringer's (Ringers, Lactated) 1,000 mls @ 100 mls/hr IV ASDIRECTED ANH[facility] Last Admin: 09/04/18 04:20 Dose: 100 mls/hr Lactated Ringer's (Ringers, Lactated) 500 mls @ 500 mls/hr IV .BOLUS NAHED Last Admin: 09/04/18 01:10 Dose: 500 mls/hr Lactated Ringer's (Ringers, Lactated) 500 mls @ 500 mls/hr IV .BOLUS NAHED Last Admin: 09/04/18 03:13 Dose: 500 mls/hr Propofol (Diprivan 100 Ml) 100 mls @ 1.361 mls/hr IV TITRATE [facility]; Protocol Last Titration: 09/04/18 07:52 Dose: 14 mcg/kg/min, 3.81 mls/hr Propofol (Diprivan 100 Ml) Confirm Administered Dose 100 mls @ as directed .ROUTE .STK-MED ONE Stop: 09/04/18 03:45 Last Admin: 09/04/18 03:59 Dose: Not Given Lactated Ringer's (Ringers, Lactated) 500 mls @ 999 mls/hr IV .BOLUS NAHED Last Admin: 09/04/18 06:10 Dose: 999 mls/hr Aztreonam/Dextrose 1 gm/ (Premix) 50 mls @ 100 mls/hr IV Q8H NA[facility] Last Admin: 09/07/18 08:15 Dose: 100 mls/hr Lactated Ringer's (Ringers, Lactated) 500 mls @ 500 mls/hr IV ASDIRECTED [facility] Last Admin: 09/04/18 21:04 Dose: 500 mls/hr Lactated Ringer's (Ringers, Lactated) Confirm Administered Dose 1,000 mls @ as directed .ROUTE .STK-MED ONE Stop: 09/04/18 13:11 Lactated Ringer's (Ringers, Lactated) Confirm Administered Dose 1,000 mls @ as directed .ROUTE .STK-MED ONE Stop: 09/04/18 13:11 Sodium Chloride (Normal Saline) Confirm Administered Dose 10 mls @ as directed .ROUTE .STK-MED ONE Stop: 09/04/18 13:15 Magnesium Sulfate 2 gm/ Premix 50 mls @ 25 mls/hr IV Q6H [facility] Stop: 09/06/18 11:59 Last Admin: 09/06/18 10:17 Dose: 25 mls/hr Lactated Ringer's (Ringers, Lactated) 500 mls @ 500 mls/hr IV ASDIRECTED [facility] Stop: 09/04/18 17:46 Lactated Ringer's (Ringers, Lactated) 500 mls @ 500 mls/hr IV ONETIME ONE Stop: 09/04/18 19:29 Last Admin: 09/04/18 18:37 Dose: 500 mls/hr Lactated Ringer's (Ringers, Lactated) 500 mls @ 1,000 mls/hr IV ONETIME ONE Stop: 09/04/18 23:30 Last Admin: 09/04/18 23:18 Dose: 1,000 mls/hr Lactated Ringer's (Ringers, Lactated) 500 mls @ 1,000 mls/hr IV ONETIME ONE Stop: 09/05/18 01:44 Last Admin: 09/05/18 01:15 Dose: 1,000 mls/hr Lactated Ringer's (Ringers, Lactated) 1,000 mls @ 150 mls/hr IV ASDIRECTED [facility] Last Admin: 09/05/18 02:13 Dose: 150 mls/hr Lactated Ringer's (Ringers, Lactated) 500 mls @ 1,000 mls/hr IV ONETIME ONE Stop: 09/05/18 03:38 Last Admin: 09/05/18 03:15 Dose: 1,000 mls/hr Multivitamins/Minerals 10 ml/Chromium/Copper/Manganese/Seleni/Zn 1 ml/ Amino Ac/ Electrol/Dextrose/Calcium 2,011 mls @ 82 mls/hr IV .BY DURATION [facility] Stop: 09/05/18 13:25 Last Admin: 09/05/18 13:32 Dose: Not Given Amino Ac/Electrol/Dextrose/Calcium (Clinimix E 15) 2,000 mls @ 82 mls/hr IV .BY DURATION [facility] Stop: 09/05/18 13:25 Vancomycin HCl 1 gm/ Sodium (Chloride) 250 mls @ 167 mls/hr IV Q24H [facility] Last Admin: 09/05/18 12:34 Dose: 167 mls/hr Sodium Chloride (Normal Saline) 1,000 mls @ 50 mls/hr IV ASDIRECTED [facility] Last Admin: 09/05/18 12:51 Dose: 50 mls/hr Multivitamins/Minerals 10 ml/Chromium/Copper/Manganese/Seleni/Zn 1 ml/ Amino Ac/ Electrol/Dextrose/Calcium 2,011 mls @ 82 mls/hr IV .BY DURATION NAHED Stop: 09/08/18 13:20 Last Admin: 09/07/18 15:09 Dose: 82 mls/hr Amino Ac/Electrol/Dextrose/Calcium (Clinimix E 09/23) 2,000 mls @ 82 mls/hr IV .BY DURATION [facility] Stop: 09/08/18 13:20 Vancomycin HCl 1 gm/ Sodium (Chloride) 250 mls @ 167 mls/hr IV Q24H [facility] Last Admin: 09/06/18 12:00 Dose: 167 mls/hr Sodium Chloride (Normal Saline) 500 mls @ 500 mls/hr IV ASDIRECTED ONE Stop: 09/05/18 16:29 Last Admin: 09/05/18 15:40 Dose: 500 mls/hr Sodium Chloride (Normal Saline) 1,000 mls @ 100 mls/hr IV ASDIRECTED [facility] Last Admin: 09/07/18 07:31 Dose: 100 mls/hr Propofol (Diprivan 100 Ml) 100 mls @ 1.361 mls/hr IV TITRATE NAH[facility]; Protocol Last Titration: 09/17/18 03:30 Dose: 25 mcg/kg/min, 6.804 mls/hr Potassium Phosphate 20 mmole/ (Sodium Chloride) 106.6667 mls @ 35 mls/hr IV Q3H [facility] Stop: 09/07/18 17:29 Last Admin: 09/07/18 15:01 Dose: 35 mls/hr Albumin Human (Albumin 25%) 25 gm in 100 mls @ 25 mls/hr IV DAILY NAHED Stop: 09/09/18 12:59 Last Admin: 09/09/18 08:25 Dose: 25 mls/hr Albumin Human (Albumin 25%) 25 gm in 100 mls @ 25 mls/hr IV Q24H [facility] Stop: 09/09/18 17:59 Last Admin: 09/09/18 14:32 Dose: 25 mls/hr Aztreonam 1 gm/ Sodium (Chloride) 50 mls @ 100 mls/hr IV Q8H [facility] Last Admin: 09/08/18 09:41 Dose: 100 mls/hr Vancomycin HCl 1 gm/ Sodium (Chloride) 250 mls @ 167 mls/hr IV Q18H [facility] Last Admin: 09/09/18 18:42 Dose: 167 mls/hr Sodium Chloride (Normal Saline) 1,000 mls @ 999 mls/hr IV .BOLUS ONE Stop: 09/07/18 17:39 Last Admin: 09/07/18 17:26 Dose: 999 mls/hr Potassium Acetate 40 meq/ (Sodium Chloride) 120 mls @ 30 mls/hr IV ONETIME ONE Stop: 09/08/18 13:59 Last Admin: 09/08/18 09:44 Dose: 30 mls/hr Sodium Chloride (Normal Saline) 100 mls @ 3 mls/sec IV [facility] Stop: 09/08/18 15:00 Last Admin: 09/08/18 14:17 Dose: 3 mls/sec Azithromycin 500 mg/ Sodium (Chloride) 250 mls @ 250 mls/hr IV Q24H [facility] Last Admin: 09/09/18 15:27 Dose: 250 mls/hr Gentamicin Sulfate 228 mg/ (Sodium Chloride) 105.7 mls @ 100 mls/hr IV ONETIME ONE Stop: 09/08/18 17:03 Last Admin: 09/08/18 16:19 Dose: 100 mls/hr Potassium Phosphate 15 mmole/ (Sodium Chloride) 105 mls @ 55 mls/hr IV Q2H [facility] Stop: 09/09/18 12:55 Last Admin: 09/09/18 15:27 Dose: 55 mls/hr Gentamicin Sulfate 228 mg/ (Sodium Chloride) 105.7 mls @ 100 mls/hr IV Q36H [facility] Last Admin: 09/10/18 03:55 Dose: 100 mls/hr Sodium Chloride (Normal Saline) 500 mls @ 999 mls/hr IV .BOLUS ONE Stop: 09/09/18 16:34 Last Admin: 09/09/18 16:18 Dose: 999 mls/hr Sodium Chloride (Normal Saline) 500 mls @ 999 mls/hr IV .BOLUS ONE Stop: 09/09/18 17:35 Last Admin: 09/09/18 17:18 Dose: 999 mls/hr Sodium Chloride (Normal Saline) 1,000 mls @ 125 mls/hr IV [facility] Last Admin: 09/10/18 01:41 Dose: 125 mls/hr Lactated Ringer's (Ringers, Lactated) 1,000 mls @ 125 mls/hr IV [facility]RECTED [facility] Last Admin: 09/11/18 01:06 Dose: 125 mls/hr Gentamicin Sulfate 228 mg/ (Sodium Chloride) 55.7 mls @ 55 mls/hr IV Q36H [facility] Last Admin: 09/14/18 16:49 Dose: 55 mls/hr Azithromycin 500 mg/ Dextrose/ (Water) 250 mls @ 250 mls/hr IV Q24H [facility] Stop: 09/17/18 17:00 Last Admin: 09/14/18 15:42 Dose: 250 mls/hr Vancomycin HCl 1 gm/ Dextrose/ (Water) 250 mls @ 167 mls/hr IV Q24H [facility] Last Admin: 09/13/18 17:48 Dose: 167 mls/hr Fluconazole/Sodium Chloride (200 mg/ Premix) 100 mls @ 100 mls/hr IV Q24H [facility] Last Admin: 09/15/18 20:38 Dose: 100 mls/hr Magnesium Sulfate 2 gm/ Premix 50 mls @ 25 mls/hr IV Q6H [facility] Stop: 09/13/18 05:59 Last Admin: 09/13/18 03:31 Dose: 25 mls/hr Potassium Phosphate 22.5 mmole (/ Dextrose/Water) 107.5 mls @ 27 mls/hr IV Q4H [facility] Stop: 09/11/18 17:29 Last Admin: 09/11/18 14:45 Dose: 27 mls/hr Lactated Ringer's (Ringers, Lactated) 1,000 mls @ 75 mls/hr IV [facility]RECTED [facility] Last Admin: 09/13/18 22:27 Dose: 75 mls/hr Sodium Chloride (Normal Saline) Confirm Administered Dose 10 mls @ as directed .ROUTE .STK-MED ONE Stop: 09/11/18 10:41 Potassium Chloride 40 meq/ (Premix) 100 mls @ 25 mls/hr IV ONETIME ONE Stop: 09/13/18 12:59 Last Admin: 09/13/18 09:31 Dose: 25 mls/hr Potassium Chloride 40 meq/ (Premix) 100 mls @ 25 mls/hr IV ONETIME ONE Stop: 09/13/18 17:59 Last Admin: 09/13/18 13:11 Dose: 25 mls/hr Albumin Human (Albumin 25%) 25 gm in 100 mls @ 25 mls/hr IV Q24H [facility] Stop: 09/16/18 11:59 Last Admin: 09/16/18 09:02 Dose: 25 mls/hr Albumin Human (Albumin 25%) 25 gm in 100 mls @ 25 mls/hr IV Q24H [facility] Stop: 09/16/18 15:59 Last Admin: 09/16/18 12:33 Dose: 25 mls/hr Potassium Chloride 40 meq/ (Premix) 100 mls @ 25 mls/hr IV ONETIME ONE Stop: 09/16/18 11:59 Last Admin: 09/16/18 08:02 Dose: 25 mls/hr Potassium Chloride 20 meq/ (Premix) 100 mls @ 50 mls/hr IV ONETIME ONE Stop: 09/16/18 13:59 Last Admin: 09/16/18 11:36 Dose: 50 mls/hr Potassium Chloride 40 meq/ (Premix) 100 mls @ 25 mls/hr IV ONETIME ONE Stop: 09/17/18 11:59 Last Admin: 09/17/18 08:43 Dose: 25 mls/hr Magnesium Sulfate 2 gm/ Premix 50 mls @ 25 mls/hr IV Q6H [facility] Stop: 09/19/18 05:59 Last Admin: 09/19/18 03:26 Dose: 25 mls/hr Potassium Chloride 40 meq/ (Premix) 100 mls @ 25 mls/hr IV ONETIME ONE Stop: 09/18/18 12:59 Last Admin: 09/18/18 08:34 Dose: 25 mls/hr Potassium Chloride 40 meq/ (Premix) 100 mls @ 25 mls/hr IV ONETIME ONE Stop: 09/19/18 11:59 Last Admin: 09/19/18 08:19 Dose: 25 mls/hr Potassium Chloride 20 meq/ (Premix) 100 mls @ 50 mls/hr IV ONETIME ONE Stop: 09/19/18 13:59 Last Admin: 09/19/18 11:05 Dose: 50 mls/hr Iopamidol (Isovue-300 (61%)) 100 ml IV . DIRECTED PRN PRN Reason: RADIOLOGY EXAM Stop: 09/09/18 11:03 Last Admin: 09/08/18 14:16 Dose: 100 ml Lidocaine HCl (Xylocaine 2% Viscous) Confirm Administered Dose 15 ml .ROUTE .STK -MED ONE Stop: 09/12/18 11:15 Lidocaine HCl (Xylocaine 4% Top Soln) Confirm Administered Dose 50 ml .ROUTE .STK-MED ONE Stop: 09/12/18 11:15 Lidocaine HCl (Xylocaine 4% Top Soln) Confirm Administered Dose 50 ml .ROUTE .STK-MED ONE Stop: 09/14/18 06:57 Last Admin: 09/14/18 07:20 Dose: 20 ml Lidocaine HCl (Xylocaine-Mpf 1%) 5 ml INJECT ONETIME ONE Stop: 09/17/18 06:31 Last Admin: 09/17/18 06:52 Dose: 5 ml Lidocaine HCl (Xylocaine 2% Viscous) Confirm Administered Dose 15 ml .ROUTE .STK -MED ONE Stop: 09/20/18 06:37 Lidocaine HCl (Xylocaine 4% Top Soln) Confirm Administered Dose 50 ml .ROUTE .STK-MED ONE Stop: 09/20/18 06:38 Last Admin: 09/20/18 09:05 Dose: 50 ml Lidocaine/Epinephrine (Xylocaine 1% With Epinephrine 1:100,000) Confirm Administered Dose 50 ml .ROUTE .STK-MED ONE Stop: 09/07/18 06:48 Last Admin: 09/07/18 10:54 Dose: 18 ml Lidocaine/Epinephrine (Xylocaine 1% With Epinephrine 1:100,000) Confirm Administered Dose 50 ml .ROUTE .STK-MED ONE Stop: 09/11/18 09:07 Last Admin: 09/11/18 10:49 Dose: 2 ml Lidocaine/Epinephrine (Xylocaine 1% With Epinephrine 1:100,000) Confirm Administered Dose 50 ml .ROUTE .STK-MED ONE Stop: 09/20/18 06:38 Lorazepam (Ativan) 0.5 mg IVPUSH Q4H PRN PRN Reason: Nausea/Vomiting Lorazepam (Ativan) 0.5 mg IVPUSH Q3H PRN PRN Reason: AGITATION Last Admin: 09/18/18 13:47 Dose: 0.5 mg Meropenem (Merrem) Confirm Administered Dose 1,000 mg .ROUTE .STK-MED ONE Stop: 09/03/18 17:54 Last Admin: 09/03/18 18:32 Dose: 3,500 mg Meropenem (Merrem) Confirm Administered Dose 1,000 mg .ROUTE .STK-MED ONE Stop: 09/03/18 18:04 Meropenem (Merrem) Confirm Administered Dose 2,000 mg .ROUTE .STK-MED ONE Stop: 09/03/18 18:18 Meropenem (Merrem) Confirm Administered Dose 500 mg .ROUTE .STK-MED ONE Stop: 09/07/18 06:48 Last Admin: 09/07/18 10:53 Dose: 500 mg Metoprolol Tartrate (Lopressor) 25 mg PO ONETIME ONE Stop: 09/03/18 10:41 Last Admin: 09/03/18 11:00 Dose: 25 mg Metoprolol Tartrate (Lopressor) 5 mg IVPUSH Q6H NAHED Last Admin: 09/08/18 09:25 Dose: 5 mg Metoprolol Tartrate (Lopressor) 2.5 mg IVPUSH Q6H NAHED Last Admin: 09/10/18 03:55 Dose: 2.5 mg Metoprolol Tartrate (Lopressor) Confirm Administered Dose 5 mg .ROUTE .STK-MED ONE Stop: 09/08/18 21:53 Last Admin: 09/08/18 22:19 Dose: Not Given Metoprolol Tartrate (Lopressor) 2.5 mg IVPUSH Q4H NAHED Last Admin: 09/11/18 21:25 Dose: Not Given Morphine Sulfate (Morphine) 2 mg IVPUSH Q1H PRN PRN Reason: Anxiety Last Admin: 09/19/18 16:04 Dose: 2 mg Neostigmine Methylsulfate (Neostigmine) Confirm Administered Dose 5 mg .ROUTE .STK-MED ONE Stop: 09/03/18 14:41 Neostigmine Methylsulfate (Neostigmine) Confirm Administered Dose 5 mg .ROUTE .STK-MED ONE Stop: 09/04/18 09:47 Non-Formulary Medication (Total Parenteral Nutrition, Central) 0 ml IV [facility] Stop: 09/12/18 13:31 Non-Formulary Medication (Total Parenteral Nutrition, Central) 0 ml IV [facility] Stop: 09/13/18 13:00 Ondansetron HCl (Zofran Odt) 4 mg PO Q6H PRN PRN Reason: Nausea able to take PO Ondansetron HCl (Zofran) 4 mg IV Q6H PRN PRN Reason: Nausea/Vomiting Ondansetron HCl (Zofran) Confirm Administered Dose 4 mg .ROUTE .STK-MED ONE Stop: 09/03/18 14:41 Ondansetron HCl (Zofran) Confirm Administered Dose 4 mg .ROUTE .STK-MED ONE Stop: 09/04/18 09:47 Pantoprazole Sodium (Protonix Iv) 40 mg IV Q12H [facility] Last Admin: 09/03/18 16:07 Dose: 40 mg Piperacillin Sod/Tazobactam Sod (Zosyn) 10.125 gm .XX [facility] Stop: 09/04/18 15:00 Last Admin: 09/04/18 14:04 Dose: 10.125 gm Propofol (Diprivan 20 Ml) Confirm Administered Dose 200 mg .ROUTE .STK-MED ONE Stop: 09/03/18 14:41 Propofol (Diprivan 20 Ml) Confirm Administered Dose 200 mg .ROUTE .STK-MED ONE Stop: 09/04/18 09:47 Propofol (Diprivan 20 Ml) Confirm Administered Dose 200 mg .ROUTE .STK-MED ONE Stop: 09/06/18 07:01 Propofol (Diprivan 20 Ml) Confirm Administered Dose 200 mg .ROUTE .STK-MED ONE Stop: 09/19/18 14:22 Rocuronium Christine (Zemuron) Confirm Administered Dose 50 mg .ROUTE .STK-MED ONE Stop: 09/03/18 14:41 Rocuronium Christine (Zemuron) Confirm Administered Dose 50 mg .ROUTE .STK-MED ONE Stop: 09/04/18 09:47 Rocuronium Christine (Zemuron) Confirm Administered Dose 50 mg .ROUTE .STK-MED ONE Stop: 09/20/18 07:50 Succinylcholine Chloride (Quelicin) Confirm Administered Dose 200 mg .ROUTE .STK -MED ONE Stop: 09/03/18 14:41 Succinylcholine Chloride (Quelicin) Confirm Administered Dose 200 mg .ROUTE .STK -MED ONE Stop: 09/04/18 09:47 Succinylcholine Chloride (Quelicin) Confirm Administered Dose 200 mg .ROUTE .STK -MED ONE Stop: 09/06/18 07:01 - Exam Quality Assessment: Supplemental Oxygen, Urine Catheter General: No Acute Distress, Sedated. No: Alert HEENT: Pupils Equal Neck: Supple Lungs: Clear to Auscultation, Normal Respiratory Effort Cardiovascular: Regular Rhythm, Tachycardia GI/Abdominal Exam: Soft, No Distention, Other (ostomy LLQ) Extremities: Other (dependent edema of the posterior thighs ). No: No Pedal Edema Skin: Warm, Dry Psy/Mental Status: No: Alert, Agitated - Problem List & Annotations (1) Diverticulitis of colon with perforation SNOMED Code(s): 16741885 Code(s): K57.20 - DVTRCLI OF LG INT W PERFORATION AND ABSCESS W/O BLEEDING Status: Acute Current Visit: Yes Qualifiers: Diverticulitis bleeding: without bleeding Qualified Code(s): K57.20 - Diverticulitis of large intestine with perforation and abscess without bleeding (2) Sepsis SNOMED Code(s): 53250222 Code(s): A41.9 - SEPSIS, UNSPECIFIED ORGANISM Status: Acute Current Visit : Yes Qualifiers: Sepsis type: sepsis due to unspecified organism Qualified Code(s): A41.9 - Sepsis, unspecified organism (3) Acute kidney injury SNOMED Code(s): 17094810, 30258241 Code(s): N17.9 - ACUTE KIDNEY FAILURE, UNSPECIFIED Status: Acute Current Visit: Yes (4) Leukopenia SNOMED Code(s): 88208097, 656121588 Code(s): D72.819 - DECREASED WHITE BLOOD CELL COUNT, UNSPECIFIED Status: Acute Current Visit: Yes Qualifiers: Leukopenia type: neutropenia Neutropenia type: other Qualified Code(s): D70.8 - Other neutropenia - Problem List Review Problem List Initiated/Reviewed/Updated: Yes - My Orders Last 24 Hours: My Active Orders 09/19/18 13:59 Mechanical Ventilation [RT Ventilator, Adult] [RC] Q2H RASS Sedation Scale [RC] ASDIRECTED Desired Level of Sedation (RASS) [AST] Click to Edit 09/19/18 14:00 Initiate/Renew Non-Violent Restraints (All Ages) Q24H Nrsg Assess Restraint Init/Mon [RC] Q1H Propofol [Diprivan 100 ML] 100 ml IV TITRATE 09/20/18 14:00 Initiate/Renew Non-Violent Restraints (All Ages) Q24H Nrsg NV Restr Reassessment [RC] Q24H 09/21/18 05:11 Chest 1V Frontal [CR] AM 09/22/18 05:11 Chest 1V Frontal [CR] AM - Plan Plan:: ASSESSMENT AND PLAN Acute respiratory failure with hypoxia and hypercapnia - patient was reintubated yesterday with tachypnea. She is now status post tracheostomy. Volume status seems to be improving and we made be nearing the end of diuresis. Respiratory cultures growing yeast but it's not clear if this is a pathogen or just a colonizer with extensive antibiotic use recently. -furosemide 20 mg 2 doses today, reassess volume status tomorrow -Continue fluconazole -discontinue meropenem -Mechanical ventilation with tracheostomy -treat anxiety as indicated -Daily chest x-rays Perforated sigmoid colon with sepsis - Initial surgical resection on 09/03 and Second Look laparotomy on 09/04. Sepsis has resolved. Cultures grew out Klebsiella, Escherichia coli and anaerobic bacteria. stable from this standpoint and she has completed adequate anabiotic for this infection. Malnourished with essentially no oral intake in the last 2 weeks. -Pain control as indicated -TPN Hypertension - no longer has NG. blood pressure has been stable. -discontinue enalapril -PRN meds if SBP >175 Anemia of critical illness - hemoglobin now stable with no evidence for bleeding. -Transfuse if less than 7 since she is currently hemodynamically stable and oxygenating well Acute kidney injury - renal function back to normal and stable. She does have an elevated BUN out of proportion to her creatinine but this is slowly trending down. -Management as above -Repeat labs in the morning Mixed delirium - She remains lethargic with recent sedation but sedation will be off now that she has a tracheostomy. -Symptomatically management and treatment of the above conditions Maintenance issues - - DVT prophylaxis - mechanical - GI prophylaxis - PPI - Nutrition - nothing by mouth - Rubin catheter - placed for strict intake and output monitoring and a critical patient Disposition - I would anticipate discharge to an LTAC for ventilator weaning Santana Cunningham M.D.
[2018-09-20] MEDS ORDERED: LYTES IV SCH ×9 (17:00→17:01)
[2018-09-20] MEDS ORDERED: MVI IV SCH ×9 (17:00→17:01)
[2018-09-20] MEDS ORDERED: VITAMIN K IV SCH ×9 (17:00→17:01)
[2018-09-20] MEDS ORDERED: CALCIUM IV SCH ×9 (17:00→17:01)
[2018-09-20] MEDS ORDERED: [UNRECOGNIZED DRUG - OTHER] IV SCH ×9 (17:00→17:01)
[2018-09-20] MEDS: Fluconazole/Normal Saline 400 MG in Premix Bag 1 BAG IV SCH (19:31)
[2018-09-20] MEDS: Pantoprazole 40 MG Vial IV SCH (21:52)
[2018-09-21] MEDS: HYDROmorphone 0.5 MG/0.5 ML Syringe IVPUSH PRN (02:16)
[2018-09-21] MEDS: Dimethicone 20%/Zinc Oxide 25% 56 GM Spray Bottle TOP PRN ×3 (03:14→15:28)
[2018-09-21] MEDS: Albuterol/Ipratropium 3.0-0.5 MG/3 ML Neb Soln NEB SCH ×4 (07:35→21:03)
--- NOTE | 2018-09-21 08:42 | OR ---
DATE OF PROCEDURE: 09/14/2018 SURGEON: Christiano Estrada MD PREOPERATIVE DIAGNOSIS: Mucoid pulmonary secretions. POSTOPERATIVE DIAGNOSIS: Mucoid pulmonary secretions. OPERATIVE PROCEDURE: Flexible bronchoscopy for clearance of mucoid pulmonary secretions (18227). ANESTHESIA: IV sedation. INDICATION FOR PROCEDURE: The patient remains in a ventilated mode. Over the weekend, she was noted to have some mucoid secretions evacuated by bronchoscopy by Dr. Olson, and she is to have a followup bronchoscopy with tracheobronchial toilet at this time. Potential risks of the procedure were reviewed with the patient's son, and he wishes to proceed. DETAILS TO PROCEDURE: In the intensive care unit, the patient had her Propofol infusion increased somewhat, and the flexible bronchoscope was passed through the endotracheal tube. This was then passed down to the level of the pham. The tube was noted to be somewhat more lobed in the upper lobe and was pulled back up to the point further above the pham. Using topical lidocaine and saline, the mucoid secretions, which were diffusely present, were gradually cleared. These appeared to be somewhat improved from what was reported over the weekend, with the patient having been started on Mucomyst last evening. Otherwise, all of the secretions were quite clear and not likely infected per se. Once all of the mucoid secretions were cleared from the tracheobronchial tree, the procedure was concluded and the patient tolerated the procedure well. Christiano Estrada MD /[id number]
[2018-09-21] MEDS ORDERED: Potassium Chloride Riders 40 MEQ in Premix Bag 1 BAG IV ONE (09:00)
--- NOTE | 2018-09-21 09:02 | PCM.PN ---
- General Info Date of Service: 09/21/18 Subjective Update: Ms. Muniz underwent tracheostomy placement yesterday and has been stable since that time. Currently requiring fairly minimal amount of ventilatory support. Overall weakness seems to be the main problem in her respiratory compromise. Because of current tracheostomy she is unable to communicate concerning symptoms or review of systems. - Patient Data Vitals - Most Recent: Last Vital Signs Temp 96.7 F 09/21/18 08:00 Pulse 117 H 09/21/18 08:00 Resp 8 L 09/21/18 08:00 BP 168/72 H 09/21/18 08:00 Pulse Ox 100 09/21/18 08:00 Weight - Most Recent: 173 lb I&O - Last 24 Hours: Intake & Output 09/20/18 09/21/18 09/21/18 22:59 06:59 14:59 Output Total 268 792 65 Balance -809 -792 -65 Lab Results Last 24 Hours: Laboratory Results - last 24 hr 09/21/18 09/21/18 09/21/18 Range/Units 05:12 05:12 05:12 WBC 7.6 (4.5-11.0) K/uL RBC 2.77 L (3.30-5.50) M/uL Hgb 8.5 L (12.0-15.0) g/dL Hct 27.1 L (36.0-48.0) % MCV 98 (80-98) fL MCH 31 (27-31) pg MCHC 31 L (32-36) % Plt Count 326 (150-400) K/uL Puncture Site Line ABG pH 7.525 H (7.350-7.450) ABG pCO2 37.4 (35.0-42.0) mmHg ABG pO2 121.0 H (75.0-100.0) mmHg ABG HCO3 30.7 H (22.0-26.0) mmol/L ABG Total CO2 28.3 H (21.0-25.0) mmol/L ABG O2 Saturation 98.8 H (95.0-98.0) % ABG O2 Content 12.6 L (15.0-23.0) %vol ABG Base Excess 7.6 mm/L ABG Hemoglobin 9.1 L (12.0-16.0) g/dL ABG Oxyhemoglobin 96.6 % ABG Carboxyhemoglobin 1.6 (0.0-1.6) % ABG Methemoglobin 0.6 % O2 Delivery Device Ventilator Oxygen Flow Rate L Sodium 141 (140-148) mmol/L Potassium 3.7 (3.6-5.2) mmol/L Chloride 102 (100-108) mmol/L Carbon Dioxide 31 (21-32) mmol/L Anion Gap 8.3 (5.0-14.0) mmol/L BUN 48 H (7-18) mg/dL Creatinine 0.9 (0.6-1.0) mg/dL Est Cr Clr Drug Dosing 39.65 mL/min Estimated GFR (MDRD) > 60 (>60) Glucose 118 H (74-106) mg/dL Calcium 9.4 (8.5-10.1) mg/dL Phosphorus 4.8 (2.5-4.9) mg/dL Magnesium 1.9 D (1.8-2.4) mg/dL Total Bilirubin 1.0 (0.2-1.0) mg/dL AST 85 H (15-37) U/L ALT 116 H (12-78) U/L Alkaline Phosphatase 405 H (46-116) U/L NT-Pro-B Natriuret Pep 4146 H (5-450) pg/mL Total Protein 5.7 L (6.4-8.2) g/dL Albumin 1.9 L (3.4-5.0) g/dL Globulin 3.8 H (2.3-3.5) g/dL Albumin/Globulin Ratio 0.5 L (1.2-2.2) Blood Type Gel Antibody Screen Crossmatch 09/21/18 Range/Units 06:48 WBC (4.5-11.0) K/uL RBC (3.30-5.50) M/uL Hgb (12.0-15.0) g/dL Hct (36.0-48.0) % MCV (80-98) fL MCH (27-31) pg MCHC (32-36) % Plt Count (150-400) K/uL Puncture Site ABG pH (7.350-7.450) ABG pCO2 (35.0-42.0) mmHg ABG pO2 (75.0-100.0) mmHg ABG HCO3 (22.0-26.0) mmol/L ABG Total CO2 (21.0-25.0) mmol/L ABG O2 Saturation (95.0-98.0) % ABG O2 Content (15.0-23.0) %vol ABG Base Excess mm/L ABG Hemoglobin (12.0-16.0) g/dL ABG Oxyhemoglobin % ABG Carboxyhemoglobin (0.0-1.6) % ABG Methemoglobin % O2 Delivery Device Oxygen Flow Rate L Sodium (140-148) mmol/L Potassium (3.6-5.2) mmol/L Chloride (100-108) mmol/L Carbon Dioxide (21-32) mmol/L Anion Gap (5.0-14.0) mmol/L BUN (7-18) mg/dL Creatinine (0.6-1.0) mg/dL Est Cr Clr Drug Dosing mL/min Estimated GFR (MDRD) (>60) Glucose (74-106) mg/dL Calcium (8.5-10.1) mg/dL Phosphorus (2.5-4.9) mg/dL Magnesium (1.8-2.4) mg/dL Total Bilirubin (0.2-1.0) mg/dL AST (15-37) U/L ALT (12-78) U/L Alkaline Phosphatase (46-116) U/L NT-Pro-B Natriuret Pep (5-450) pg/mL Total Protein (6.4-8.2) g/dL Albumin (3.4-5.0) g/dL Globulin (2.3-3.5) g/dL Albumin/Globulin Ratio (1.2-2.2) Blood Type O POSITIVE Gel Antibody Screen Negative Crossmatch See Detail Joseph Results Last 24 Hours: Microbiology 09/14/18 08:06 Fungal Culture - Preliminary Transbronchial Aspirate 09/12/18 12:57 Fungal Culture - Preliminary Bronchial Aspirate - Mixed Med Orders - Current: Current Medications Albuterol (Proventil Neb Soln) 2.5 mg NEB Q4H PRN PRN Reason: Dyspnea Albuterol/Ipratropium (Duoneb 3.0-0.5 Mg/3 Ml) 3 ml NEB QIDRT [facility] Last Admin: 09/21/18 07:35 Dose: 3 ml Dimethicone/Zinc Oxide (Rash Relief-Zinc Oxide Moro) 0 gm TOP ASDIRECTED PRN PRN Reason: Inflammation Last Admin: 09/21/18 03:14 Dose: 2 spray Furosemide (Lasix) 20 mg IVPUSH Q8H [facility] Stop: 09/21/18 20:01 Hydralazine HCl (Apresoline) 5 mg IVPUSH Q4H PRN PRN Reason: Hypertension Last Admin: 09/19/18 13:41 Dose: 5 mg Hydromorphone HCl (Dilaudid) 0.5 mg IVPUSH Q2H PRN PRN Reason: Pain Last Admin: 09/21/18 02:16 Dose: 0.5 mg Hydroxyzine HCl (Vistaril) 50 mg IM Q4H PRN PRN Reason: Pain Heparin Sodium (Porcine) 5,000 (units/ Sodium Chloride) 501 mls @ 5 mls/hr IV ASDIRECTED [facility] Last Admin: 09/16/18 14:00 Dose: 5 mls/hr Heparin Sodium (Porcine) 5,000 (units/ Sodium Chloride) 501 mls @ 5 mls/hr IV ASDIRECTED [facility] Last Admin: 09/19/18 21:38 Dose: 5 mls/hr Sodium Chloride (Normal Saline) 1,000 mls @ 0 mls/hr IV ASDIRECTED [facility] Last Admin: 09/19/18 05:15 Dose: 12.5 mls/hr Lactated Ringer's (Ringers, Lactated) 1,000 mls @ 25 mls/hr IV ASDIRECTED [facility] Last Admin: 09/18/18 21:11 Dose: 25 mls/hr Fluconazole/Sodium Chloride (400 mg/ Premix) 200 mls @ 100 mls/hr IV Q24H [facility] Last Admin: 09/20/18 19:31 Dose: 100 mls/hr Propofol (Diprivan 100 Ml) 100 mls @ 2.354 mls/hr IV TITRATE [facility]; Protocol Last Admin: 09/20/18 05:35 Dose: 15 mcg/kg/min, 7.062 mls/hr Multivitamins/Minerals 10 ml/Chromium/Copper/Manganese/Seleni/Zn 1 ml/ Amino Ac/ Electrol/Dextrose/Calcium 2,011 mls @ 62 mls/hr IV .BY DURATION [facility] Last Admin: 09/20/18 17:31 Dose: 62 mls/hr Amino Ac/Electrol/Dextrose/Calcium (Clinimix E 09/28) 2,000 mls @ 62 mls/hr IV .BY DURATION [facility] Potassium Chloride 40 meq/ (Premix) 100 mls @ 25 mls/hr IV ONETIME ONE Stop: 09/21/18 12:59 Ketoconazole (Nizoral 2% Crm) 0 gm TOP TID [facility] Last Admin: 09/20/18 20:54 Dose: 1 applic Lorazepam (Ativan) 0.5 mg IVPUSH Q1H PRN PRN Reason: Anxiety Last Admin: 09/19/18 11:20 Dose: 0.5 mg Metoprolol Tartrate (Lopressor) 2.5 mg IVPUSH Q4H PRN PRN Reason: Hypertension Last Admin: 09/19/18 11:44 Dose: 2.5 mg Naloxone HCl (Narcan) 0.1 mg IV ASDIRECTED PRN PRN Reason: decreased respiratory rate Pantoprazole Sodium (Protonix Iv) 40 mg IV Q24H [facility] Last Admin: 09/20/18 21:52 Dose: 40 mg Discontinued Medications Acetaminophen (Tylenol) 650 mg PO Q4H PRN PRN Reason: Pain (Mild 1-3)/fever Acetaminophen (Tylenol) 650 mg RECTAL Q4H PRN PRN Reason: Mild pain/fever Acetylcysteine (Mucomyst 20%) 200 mg NEB QIDRT [facility] Last Admin: 09/20/18 07:00 Dose: 200 mg Albuterol (Proventil Neb Soln) 2.5 mg NEB Q4H PRN PRN Reason: Shortness Of Breath/wheezing Albuterol/Ipratropium (Duoneb 3.0-0.5 Mg/3 Ml) 3 ml INH PREPRO ONE Stop: 09/03/18 17:01 Last Admin: 09/03/18 16:25 Dose: 3 ml Albuterol/Ipratropium (Duoneb 3.0-0.5 Mg/3 Ml) 3 ml NEB QID [facility] Last Admin: 09/13/18 21:11 Dose: 3 ml Aztreonam (Azactam) Confirm Administered Dose 1 gm .ROUTE .STK-MED ONE Stop: 09/03/18 21:44 Last Admin: 09/03/18 22:15 Dose: Not Given Benazepril HCl (Lotensin) 40 mg PO ONETIME ONE Stop: 09/03/18 10:41 Last Admin: 09/03/18 11:00 Dose: 40 mg Benazepril HCl (Lotensin) 40 mg NGTUBE DAILY [facility] Last Admin: 09/20/18 09:55 Dose: Not Given Bupivacaine HCl (Marcaine 0.5%) Confirm Administered Dose 50 ml .ROUTE .STK-MED ONE Stop: 09/07/18 06:48 Last Admin: 09/07/18 10:53 Dose: 18 ml Bupivacaine HCl (Marcaine 0.5%) Confirm Administered Dose 50 ml .ROUTE .STK-MED ONE Stop: 09/11/18 09:07 Last Admin: 09/11/18 10:49 Dose: 2 ml Ropivacaine 22 ml/Dexamethasone 8 mg/Epinephrine HCl 0.4 mg/ Sodium Chloride 55.6 ml 0 ml NERVRT ASDIRECTED [facility] Ropivacaine 22 ml/Dexamethasone 8 mg/Epinephrine HCl 0.4 mg/ Sodium Chloride 55.6 ml 0 ml NERVRT ASDIRECTED [facility] Last Admin: 09/04/18 14:03 Dose: 80 syringe Ropivacaine 22 ml/Dexamethasone 8 mg/Epinephrine HCl 0.4 mg/ Sodium Chloride 55.6 ml 0 ml NERVRT ASDIRECTED [facility] Last Admin: 09/07/18 11:07 Dose: 80 syringe Dexamethasone (Dexamethasone) Confirm Administered Dose 4 mg .ROUTE .STK-MED ONE Stop: 09/03/18 14:41 Dexamethasone (Dexamethasone) Confirm Administered Dose 4 mg .ROUTE .STK-MED ONE Stop: 09/04/18 09:47 Fentanyl (Sublimaze) 25 mcg IVPUSH ONETIME ONE Stop: 09/03/18 13:57 Last Admin: 09/03/18 14:16 Dose: 25 mcg Fentanyl (Sublimaze) 25 mcg IVPUSH Q2H PRN PRN Reason: Pain (severe 7-10) Fentanyl (Sublimaze) Confirm Administered Dose 250 mcg .ROUTE .STK-MED ONE Stop: 09/03/18 14:41 Fentanyl (Sublimaze) Confirm Administered Dose 250 mcg .ROUTE .STK-MED ONE Stop: 09/04/18 09:46 Fentanyl (Sublimaze) Confirm Administered Dose 250 mcg .ROUTE .STK-MED ONE Stop: 09/04/18 13:57 Fentanyl (Sublimaze) Confirm Administered Dose 100 mcg .ROUTE .STK-MED ONE Stop: 09/11/18 10:36 Fentanyl (Sublimaze) Confirm Administered Dose 250 mcg .ROUTE .STK-MED ONE Stop: 09/20/18 07:50 Furosemide (Lasix) 20 mg IVPUSH ONETIME ONE Stop: 09/04/18 15:10 Last Admin: 09/04/18 15:18 Dose: 20 mg Furosemide (Lasix) 40 mg IV ONETIME ONE Stop: 09/06/18 08:16 Last Admin: 09/06/18 08:26 Dose: 40 mg Furosemide (Lasix) 20 mg IV Q12H [facility] Stop: 09/07/18 20:01 Last Admin: 09/07/18 20:10 Dose: 20 mg Furosemide (Lasix) 20 mg IVPUSH Q12H [facility] Stop: 09/08/18 19:01 Last Admin: 09/08/18 19:50 Dose: 20 mg Furosemide (Lasix) 20 mg IVPUSH ONETIME ONE Stop: 09/09/18 07:01 Last Admin: 09/09/18 08:14 Dose: 20 mg Furosemide (Lasix) 20 mg IVPUSH ONETIME ONE Stop: 09/09/18 11:01 Last Admin: 09/09/18 12:38 Dose: 20 mg Furosemide (Lasix) 20 mg IVPUSH ONETIME ONE Stop: 09/09/18 20:01 Furosemide (Lasix) 20 mg IV Q8H [facility] Stop: 09/11/18 00:31 Last Admin: 09/10/18 23:50 Dose: 20 mg Furosemide (Lasix) 20 mg IV Q8H [facility] Stop: 09/12/18 00:01 Last Admin: 09/11/18 23:34 Dose: 20 mg Furosemide (Lasix) 20 mg IVPUSH Q8H [facility] Stop: 09/13/18 02:31 Last Admin: 09/13/18 02:39 Dose: 20 mg Furosemide (Lasix) 20 mg IVPUSH Q8H [facility] Stop: 09/14/18 02:31 Last Admin: 09/14/18 02:29 Dose: 20 mg Furosemide (Lasix) 40 mg IVPUSH ONETIME ONE Stop: 09/14/18 10:01 Last Admin: 09/14/18 13:28 Dose: 40 mg Furosemide (Lasix) 20 mg IVPUSH BID [facility] Furosemide (Lasix) 20 mg IVPUSH ONETIME ONE Stop: 09/15/18 06:34 Last Admin: 09/15/18 06:48 Dose: 20 mg Furosemide (Lasix) 40 mg IVPUSH Q8H [facility] Stop: 09/15/18 20:31 Last Admin: 09/15/18 20:39 Dose: 40 mg Furosemide (Lasix) 40 mg IV BID [facility] Stop: 09/16/18 21:01 Last Admin: 09/16/18 21:19 Dose: 40 mg Furosemide (Lasix) 40 mg IV Q12H [facility] Stop: 09/17/18 21:01 Last Admin: 09/17/18 21:11 Dose: 40 mg Furosemide (Lasix) 40 mg IV Q8H [facility] Stop: 09/18/18 16:01 Last Admin: 09/18/18 16:00 Dose: 40 mg Furosemide (Lasix) 40 mg IV Q12H [facility] Stop: 09/19/18 20:01 Last Admin: 09/19/18 19:23 Dose: 40 mg Furosemide (Lasix) 20 mg IVPUSH Q12H [facility] Stop: 09/20/18 22:01 Last Admin: 09/20/18 21:52 Dose: 20 mg Gentamicin Sulfate (Gentamicin) 1 mg IV .Pharmacy to Dose [facility] Stop: 09/08/18 14:31 Glycopyrrolate (Robinul) Confirm Administered Dose 1 mg .ROUTE .STK-MED ONE Stop: 09/03/18 14:41 Glycopyrrolate (Robinul) Confirm Administered Dose 1 mg .ROUTE .STK-MED ONE Stop: 09/04/18 09:47 Heparin Sodium (Porcine) (Heparin Sodium) Confirm Administered Dose 5,000 units .ROUTE .STK-MED [facility] Stop: 09/03/18 18:32 Heparin Sodium (Porcine) (Heparin Lock Flush 100 Units/Ml) Confirm Administered Dose 500 units .ROUTE .STK-MED [facility] Stop: 09/04/18 13:14 Heparin Sodium (Porcine) (Heparin Lock Flush 100 Units/Ml) Confirm Administered Dose 1,000 units .ROUTE .STK-MED ONE Stop: 09/11/18 09:07 Last Admin: 09/11/18 10:58 Dose: 1,000 units Heparin Sodium (Porcine) (Heparin Lock Flush 100 Units/Ml) Confirm Administered Dose 500 units .ROUTE .STK-MED ONE Stop: 09/11/18 10:44 Last Admin: 09/11/18 10:58 Dose: 500 units Hydromorphone HCl (Dilaudid) 0.5 mg IVPUSH ONETIME ONE Stop: 09/03/18 10:48 Last Admin: 09/03/18 11:00 Dose: 0.5 mg Hydromorphone HCl (Dilaudid) 0.5 mg IVPUSH ONETIME ONE Stop: 09/03/18 11:22 Last Admin: 09/03/18 11:25 Dose: 0.5 mg Hydromorphone HCl (Dilaudid) 0.5 mg IVPUSH ONETIME ONE Stop: 09/03/18 12:10 Last Admin: 09/03/18 12:12 Dose: 0.5 mg Hydromorphone HCl (Dilaudid) 0.5 mg IVPUSH ONETIME ONE Stop: 09/03/18 12:40 Last Admin: 09/03/18 12:44 Dose: 0.5 mg Hydromorphone HCl (Dilaudid) 1 mg IVPUSH ONETIME ONE Stop: 09/03/18 12:57 Last Admin: 09/03/18 13:00 Dose: 1 mg Hydromorphone HCl (Dilaudid [employer] 15 Mg In Ns 30 Ml) 0 mg IV ASDIRECTED PRN; Protocol PRN Reason: 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 Last Admin: 09/09/18 05:52 Dose: 15 mg Sodium Chloride (Normal Saline) 1,000 mls @ 1,000 mls/hr IV .BOLUS ONE Stop: 09/03/18 12:17 Last Admin: 09/03/18 11:25 Dose: 1,000 mls/hr Piperacillin/Tazobactam/ (Dextrose 4.5 gm/ Premix) 100 mls @ 200 mls/hr IV ONETIME ONE Stop: 09/03/18 13:29 Last Admin: 09/03/18 13:04 Dose: 200 mls/hr Sodium Chloride (Normal Saline) 1,000 mls @ 500 mls/hr IV ASDIRECTED [facility] Last Admin: 09/03/18 13:00 Dose: 500 mls/hr Lactated Ringer's (Ringers, Lactated) 1,000 mls @ 125 mls/hr IV ASDIRECTED [facility] Last Admin: 09/03/18 16:07 Dose: 125 mls/hr Aztreonam 2 gm/ Sodium (Chloride) 100 mls @ 200 mls/hr IV NOW ONE Stop: 09/03/18 15:29 Last Admin: 09/03/18 14:56 Dose: 200 mls/hr Meropenem 500 mg/ Sodium (Chloride) 50 mls @ 100 mls/hr IV ONCALL ONE Stop: 09/03/18 17:29 Last Admin: 09/03/18 16:25 Dose: 100 mls/hr Piperacillin/Tazobactam/ (Dextrose 3.375 gm/ Premix) 50 mls @ 100 mls/hr IV Q6H [facility] Last Admin: 09/03/18 22:15 Dose: Not Given Sodium Chloride (Normal Saline) Confirm Administered Dose 500 mls @ as directed .ROUTE .STK-MED ONE Stop: 09/03/18 18:33 Aztreonam/Dextrose 1 gm/ (Premix) 50 mls @ 100 mls/hr IV Q8HR [facility] Meropenem 500 mg/ Sodium (Chloride) 50 mls @ 100 mls/hr IV Q8H [facility] Last Admin: 09/10/18 05:17 Dose: 100 mls/hr Sodium Chloride (Normal Saline) Confirm Administered Dose 50 mls @ as directed .ROUTE .STK-MED ONE Stop: 09/03/18 22:01 Last Admin: 09/03/18 22:21 Dose: Not Given Aztreonam/Dextrose 1 gm/ (Premix) 50 mls @ 100 mls/hr IV Q8H [facility] Last Admin: 09/04/18 07:30 Dose: Not Given Dextrose/Lactated Ringer's (Dextrose 5%-Lactated Ringers) 1,000 mls @ 100 mls/ hr IV ASDIRECTED PRN PRN Reason: Hypotension Dextrose/Lactated Ringer's (Dextrose 5%-Lactated Ringers) 1,000 mls @ 100 mls/ hr IV ASDIRECTED [facility] Last Admin: 09/05/18 02:13 Dose: 100 mls/hr Lactated Ringer's (Ringers, Lactated) 1,000 mls @ 100 mls/hr IV ASDIRECTED [facility] Last Admin: 09/04/18 04:20 Dose: 100 mls/hr Lactated Ringer's (Ringers, Lactated) 500 mls @ 500 mls/hr IV .BOLUS [facility] Last Admin: 09/04/18 01:10 Dose: 500 mls/hr Lactated Ringer's (Ringers, Lactated) 500 mls @ 500 mls/hr IV .BOLUS [facility] Last Admin: 09/04/18 03:13 Dose: 500 mls/hr Propofol (Diprivan 100 Ml) 100 mls @ 1.361 mls/hr IV TITRATE [facility]; Protocol Last Titration: 09/04/18 07:52 Dose: 14 mcg/kg/min, 3.81 mls/hr Propofol (Diprivan 100 Ml) Confirm Administered Dose 100 mls @ as directed .ROUTE .ST-MED ONE Stop: 09/04/18 03:45 Last Admin: 09/04/18 03:59 Dose: Not Given Lactated Ringer's (Ringers, Lactated) 500 mls @ 999 mls/hr IV .BOLUS [facility] Last Admin: 09/04/18 06:10 Dose: 999 mls/hr Aztreonam/Dextrose 1 gm/ (Premix) 50 mls @ 100 mls/hr IV Q8H [facility] Last Admin: 09/07/18 08:15 Dose: 100 mls/hr Lactated Ringer's (Ringers, Lactated) 500 mls @ 500 mls/hr IV ASDIRECTED [facility] Last Admin: 09/04/18 21:04 Dose: 500 mls/hr Lactated Ringer's (Ringers, Lactated) Confirm Administered Dose 1,000 mls @ as directed .ROUTE .ST-MED ONE Stop: 09/04/18 13:11 Lactated Ringer's (Ringers, Lactated) Confirm Administered Dose 1,000 mls @ as directed .ROUTE .STK-MED ONE Stop: 09/04/18 13:11 Sodium Chloride (Normal Saline) Confirm Administered Dose 10 mls @ as directed .ROUTE .STK-MED ONE Stop: 09/04/18 13:15 Magnesium Sulfate 2 gm/ Premix 50 mls @ 25 mls/hr IV Q6H [facility] Stop: 09/06/18 11:59 Last Admin: 09/06/18 10:17 Dose: 25 mls/hr Lactated Ringer's (Ringers, Lactated) 500 mls @ 500 mls/hr IV ASDIRECTED [facility] Stop: 09/04/18 17:46 Lactated Ringer's (Ringers, Lactated) 500 mls @ 500 mls/hr IV ONETIME ONE Stop: 09/04/18 19:29 Last Admin: 09/04/18 18:37 Dose: 500 mls/hr Lactated Ringer's (Ringers, Lactated) 500 mls @ 1,000 mls/hr IV ONETIME ONE Stop: 09/04/18 23:30 Last Admin: 09/04/18 23:18 Dose: 1,000 mls/hr Lactated Ringer's (Ringers, Lactated) 500 mls @ 1,000 mls/hr IV ONETIME ONE Stop: 09/05/18 01:44 Last Admin: 09/05/18 01:15 Dose: 1,000 mls/hr Lactated Ringer's (Ringers, Lactated) 1,000 mls @ 150 mls/hr IV ASDIRECTED [facility] Last Admin: 09/05/18 02:13 Dose: 150 mls/hr Lactated Ringer's (Ringers, Lactated) 500 mls @ 1,000 mls/hr IV ONETIME ONE Stop: 09/05/18 03:38 Last Admin: 09/05/18 03:15 Dose: 1,000 mls/hr Multivitamins/Minerals 10 ml/Chromium/Copper/Manganese/Seleni/Zn 1 ml/ Amino Ac/ Electrol/Dextrose/Calcium 2,011 mls @ 82 mls/hr IV .BY DURATION [facility] Stop: 09/05/18 13:25 Last Admin: 09/05/18 13:32 Dose: Not Given Amino Ac/Electrol/Dextrose/Calcium (Clinimix E 09/23) 2,000 mls @ 82 mls/hr IV .BY DURATION [facility] Stop: 09/05/18 13:25 Vancomycin HCl 1 gm/ Sodium (Chloride) 250 mls @ 167 mls/hr IV Q24H [facility] Last Admin: 09/05/18 12:34 Dose: 167 mls/hr Sodium Chloride (Normal Saline) 1,000 mls @ 50 mls/hr IV ASDIRECTED [facility] Last Admin: 09/05/18 12:51 Dose: 50 mls/hr Multivitamins/Minerals 10 ml/Chromium/Copper/Manganese/Seleni/Zn 1 ml/ Amino Ac/ Electrol/Dextrose/Calcium 2,011 mls @ 82 mls/hr IV .BY DURATION [facility] Stop: 09/08/18 13:20 Last Admin: 09/07/18 15:09 Dose: 82 mls/hr Amino Ac/Electrol/Dextrose/Calcium (Clinimix E 09/23) 2,000 mls @ 82 mls/hr IV .BY DURATION [facility] Stop: 09/08/18 13:20 Vancomycin HCl 1 gm/ Sodium (Chloride) 250 mls @ 167 mls/hr IV Q24H [facility] Last Admin: 09/06/18 12:00 Dose: 167 mls/hr Sodium Chloride (Normal Saline) 500 mls @ 500 mls/hr IV ASDIRECTED ONE Stop: 09/05/18 16:29 Last Admin: 09/05/18 15:40 Dose: 500 mls/hr Sodium Chloride (Normal Saline) 1,000 mls @ 100 mls/hr IV ASDIRECTED [facility] Last Admin: 09/07/18 07:31 Dose: 100 mls/hr Propofol (Diprivan 100 Ml) 100 mls @ 1.361 mls/hr IV TITRATE [facility]; Protocol Last Titration: 09/17/18 03:30 Dose: 25 mcg/kg/min, 6.804 mls/hr Potassium Phosphate 20 mmole/ (Sodium Chloride) 106.6667 mls @ 35 mls/hr IV Q3H [facility] Stop: 09/07/18 17:29 Last Admin: 09/07/18 15:01 Dose: 35 mls/hr Albumin Human (Albumin 25%) 25 gm in 100 mls @ 25 mls/hr IV DAILY [facility] Stop: 09/09/18 12:59 Last Admin: 09/09/18 08:25 Dose: 25 mls/hr Albumin Human (Albumin 25%) 25 gm in 100 mls @ 25 mls/hr IV Q24H [facility] Stop: 09/09/18 17:59 Last Admin: 09/09/18 14:32 Dose: 25 mls/hr Aztreonam 1 gm/ Sodium (Chloride) 50 mls @ 100 mls/hr IV Q8H [facility] Last Admin: 09/08/18 09:41 Dose: 100 mls/hr Vancomycin HCl 1 gm/ Sodium (Chloride) 250 mls @ 167 mls/hr IV Q18H [facility] Last Admin: 09/09/18 18:42 Dose: 167 mls/hr Sodium Chloride (Normal Saline) 1,000 mls @ 999 mls/hr IV .BOLUS ONE Stop: 09/07/18 17:39 Last Admin: 09/07/18 17:26 Dose: 999 mls/hr Potassium Acetate 40 meq/ (Sodium Chloride) 120 mls @ 30 mls/hr IV ONETIME ONE Stop: 09/08/18 13:59 Last Admin: 09/08/18 09:44 Dose: 30 mls/hr Multivitamins/Minerals 10 ml/Chromium/Copper/Manganese/Seleni/Zn 1 ml/ Amino Ac/ Electrol/Dextrose/Calcium 1,011 mls @ 62 mls/hr IV .BY DURATION [facility] Stop: 09/20/18 17:00 Last Admin: 09/19/18 09:10 Dose: 62 mls/hr Amino Ac/Electrol/Dextrose/Calcium (Clinimix E 20) 1,000 mls @ 62 mls/hr IV .BY DURATION [facility] Stop: 09/20/18 17:00 Last Admin: 09/20/18 01:21 Dose: 62 mls/hr Sodium Chloride (Normal Saline) 100 mls @ 3 mls/sec IV ASDIRECTED [facility] Stop: 09/08/18 15:00 Last Admin: 09/08/18 14:17 Dose: 3 mls/sec Azithromycin 500 mg/ Sodium (Chloride) 250 mls @ 250 mls/hr IV Q24H [facility] Last Admin: 09/09/18 15:27 Dose: 250 mls/hr Gentamicin Sulfate 228 mg/ (Sodium Chloride) 105.7 mls @ 100 mls/hr IV ONETIME ONE Stop: 09/08/18 17:03 Last Admin: 09/08/18 16:19 Dose: 100 mls/hr Potassium Phosphate 15 mmole/ (Sodium Chloride) 105 mls @ 55 mls/hr IV Q2H [facility] Stop: 09/09/18 12:55 Last Admin: 09/09/18 15:27 Dose: 55 mls/hr Gentamicin Sulfate 228 mg/ (Sodium Chloride) 105.7 mls @ 100 mls/hr IV Q36H [facility] Last Admin: 09/10/18 03:55 Dose: 100 mls/hr Sodium Chloride (Normal Saline) 500 mls @ 999 mls/hr IV .BOLUS ONE Stop: 09/09/18 16:34 Last Admin: 09/09/18 16:18 Dose: 999 mls/hr Sodium Chloride (Normal Saline) 500 mls @ 999 mls/hr IV .BOLUS ONE Stop: 09/09/18 17:35 Last Admin: 09/09/18 17:18 Dose: 999 mls/hr Sodium Chloride (Normal Saline) 1,000 mls @ 125 mls/hr IV ASDIRECTED [facility] Last Admin: 09/10/18 01:41 Dose: 125 mls/hr Lactated Ringer's (Ringers, Lactated) 1,000 mls @ 125 mls/hr IV ASDIRECTED [facility] Last Admin: 09/11/18 01:06 Dose: 125 mls/hr Meropenem 500 mg/ Sodium (Chloride) 25 mls @ 50 mls/hr IV Q8H [facility] Last Admin: 09/20/18 13:05 Dose: 50 mls/hr Gentamicin Sulfate 228 mg/ (Sodium Chloride) 55.7 mls @ 55 mls/hr IV Q36H [facility] Last Admin: 09/14/18 16:49 Dose: 55 mls/hr Azithromycin 500 mg/ Dextrose/ (Water) 250 mls @ 250 mls/hr IV Q24H [facility] Stop: 09/17/18 17:00 Last Admin: 09/14/18 15:42 Dose: 250 mls/hr Vancomycin HCl 1 gm/ Dextrose/ (Water) 250 mls @ 167 mls/hr IV Q24H [facility] Last Admin: 09/13/18 17:48 Dose: 167 mls/hr Fluconazole/Sodium Chloride (200 mg/ Premix) 100 mls @ 100 mls/hr IV Q24H [facility] Last Admin: 09/15/18 20:38 Dose: 100 mls/hr Magnesium Sulfate 2 gm/ Premix 50 mls @ 25 mls/hr IV Q6H [facility] Stop: 09/13/18 05:59 Last Admin: 09/13/18 03:31 Dose: 25 mls/hr Potassium Phosphate 22.5 mmole (/ Dextrose/Water) 107.5 mls @ 27 mls/hr IV Q4H [facility] Stop: 09/11/18 17:29 Last Admin: 09/11/18 14:45 Dose: 27 mls/hr Lactated Ringer's (Ringers, Lactated) 1,000 mls @ 75 mls/hr IV ASDIRECTED [facility] Last Admin: 09/13/18 22:27 Dose: 75 mls/hr Sodium Chloride (Normal Saline) Confirm Administered Dose 10 mls @ as directed .ROUTE .STK-MED ONE Stop: 09/11/18 10:41 Potassium Chloride 40 meq/ (Premix) 100 mls @ 25 mls/hr IV ONETIME ONE Stop: 09/13/18 12:59 Last Admin: 09/13/18 09:31 Dose: 25 mls/hr Potassium Chloride 40 meq/ (Premix) 100 mls @ 25 mls/hr IV ONETIME ONE Stop: 09/13/18 17:59 Last Admin: 09/13/18 13:11 Dose: 25 mls/hr Albumin Human (Albumin 25%) 25 gm in 100 mls @ 25 mls/hr IV Q24H [facility] Stop: 09/16/18 11:59 Last Admin: 09/16/18 09:02 Dose: 25 mls/hr Albumin Human (Albumin 25%) 25 gm in 100 mls @ 25 mls/hr IV Q24H [facility] Stop: 09/16/18 15:59 Last Admin: 09/16/18 12:33 Dose: 25 mls/hr Potassium Chloride 40 meq/ (Premix) 100 mls @ 25 mls/hr IV ONETIME ONE Stop: 09/16/18 11:59 Last Admin: 09/16/18 08:02 Dose: 25 mls/hr Potassium Chloride 20 meq/ (Premix) 100 mls @ 50 mls/hr IV ONETIME ONE Stop: 09/16/18 13:59 Last Admin: 09/16/18 11:36 Dose: 50 mls/hr Potassium Chloride 40 meq/ (Premix) 100 mls @ 25 mls/hr IV ONETIME ONE Stop: 09/17/18 11:59 Last Admin: 09/17/18 08:43 Dose: 25 mls/hr Magnesium Sulfate 2 gm/ Premix 50 mls @ 25 mls/hr IV Q6H [facility] Stop: 09/19/18 05:59 Last Admin: 09/19/18 03:26 Dose: 25 mls/hr Potassium Chloride 40 meq/ (Premix) 100 mls @ 25 mls/hr IV ONETIME ONE Stop: 09/18/18 12:59 Last Admin: 09/18/18 08:34 Dose: 25 mls/hr Potassium Chloride 40 meq/ (Premix) 100 mls @ 25 mls/hr IV ONETIME ONE Stop: 09/19/18 11:59 Last Admin: 09/19/18 08:19 Dose: 25 mls/hr Potassium Chloride 20 meq/ (Premix) 100 mls @ 50 mls/hr IV ONETIME ONE Stop: 09/19/18 13:59 Last Admin: 09/19/18 11:05 Dose: 50 mls/hr Multivitamins/Minerals 10 ml/Chromium/Copper/Manganese/Seleni/Zn 1 ml/ Amino Ac/ Electrol/Dextrose/Calcium 2,011 mls @ 100 mls/hr IV .BY DURATION NAHED Amino Ac/Electrol/Dextrose/Calcium (Clinimix E 5/20) 2,000 mls @ 100 mls/hr IV .BY DURATION NAHED Iopamidol (Isovue-300 (61%)) 100 ml IV . DIRECTED PRN PRN Reason: RADIOLOGY EXAM Stop: 09/09/18 11:03 Last Admin: 09/08/18 14:16 Dose: 100 ml Lidocaine HCl (Xylocaine 2% Viscous) Confirm Administered Dose 15 ml .ROUTE .STK -MED ONE Stop: 09/12/18 11:15 Lidocaine HCl (Xylocaine 4% Top Soln) Confirm Administered Dose 50 ml .ROUTE .STK-MED ONE Stop: 09/12/18 11:15 Lidocaine HCl (Xylocaine 4% Top Soln) Confirm Administered Dose 50 ml .ROUTE .STK-MED ONE Stop: 09/14/18 06:57 Last Admin: 09/14/18 07:20 Dose: 20 ml Lidocaine HCl (Xylocaine-Mpf 1%) 5 ml INJECT ONETIME ONE Stop: 09/17/18 06:31 Last Admin: 09/17/18 06:52 Dose: 5 ml Lidocaine HCl (Xylocaine 2% Viscous) Confirm Administered Dose 15 ml .ROUTE .STK -MED ONE Stop: 09/20/18 06:37 Lidocaine HCl (Xylocaine 4% Top Soln) Confirm Administered Dose 50 ml .ROUTE .STK-MED ONE Stop: 09/20/18 06:38 Last Admin: 09/20/18 09:05 Dose: 50 ml Lidocaine/Epinephrine (Xylocaine 1% With Epinephrine 1:100,000) Confirm Administered Dose 50 ml .ROUTE .STK-MED ONE Stop: 09/07/18 06:48 Last Admin: 09/07/18 10:54 Dose: 18 ml Lidocaine/Epinephrine (Xylocaine 1% With Epinephrine 1:100,000) Confirm Administered Dose 50 ml .ROUTE .STK-MED ONE Stop: 09/11/18 09:07 Last Admin: 09/11/18 10:49 Dose: 2 ml Lidocaine/Epinephrine (Xylocaine 1% With Epinephrine 1:100,000) Confirm Administered Dose 50 ml .ROUTE .STK-MED ONE Stop: 09/20/18 06:38 Lorazepam (Ativan) 0.5 mg IVPUSH Q4H PRN PRN Reason: Nausea/Vomiting Lorazepam (Ativan) 0.5 mg IVPUSH Q3H PRN PRN Reason: AGITATION Last Admin: 09/18/18 13:47 Dose: 0.5 mg Meropenem (Merrem) Confirm Administered Dose 1,000 mg .ROUTE .STK-MED ONE Stop: 09/03/18 17:54 Last Admin: 09/03/18 18:32 Dose: 3,500 mg Meropenem (Merrem) Confirm Administered Dose 1,000 mg .ROUTE .STK-MED ONE Stop: 09/03/18 18:04 Meropenem (Merrem) Confirm Administered Dose 2,000 mg .ROUTE .STK-MED ONE Stop: 09/03/18 18:18 Meropenem (Merrem) Confirm Administered Dose 500 mg .ROUTE .STK-MED ONE Stop: 09/07/18 06:48 Last Admin: 09/07/18 10:53 Dose: 500 mg Metoprolol Tartrate (Lopressor) 25 mg PO ONETIME ONE Stop: 09/03/18 10:41 Last Admin: 09/03/18 11:00 Dose: 25 mg Metoprolol Tartrate (Lopressor) 5 mg IVPUSH Q6H [facility] Last Admin: 09/08/18 09:25 Dose: 5 mg Metoprolol Tartrate (Lopressor) 2.5 mg IVPUSH Q6H NAHED Last Admin: 09/10/18 03:55 Dose: 2.5 mg Metoprolol Tartrate (Lopressor) Confirm Administered Dose 5 mg .ROUTE .STK-MED ONE Stop: 09/08/18 21:53 Last Admin: 09/08/18 22:19 Dose: Not Given Metoprolol Tartrate (Lopressor) 2.5 mg IVPUSH Q4H [facility] Last Admin: 09/11/18 21:25 Dose: Not Given Morphine Sulfate (Morphine) 2 mg IVPUSH Q1H PRN PRN Reason: Anxiety Last Admin: 09/19/18 16:04 Dose: 2 mg Neostigmine Methylsulfate (Neostigmine) Confirm Administered Dose 5 mg .ROUTE .STK-MED ONE Stop: 09/03/18 14:41 Neostigmine Methylsulfate (Neostigmine) Confirm Administered Dose 5 mg .ROUTE .STK-MED ONE Stop: 09/04/18 09:47 Non-Formulary Medication (Total Parenteral Nutrition, Central) 0 ml [facility] Stop: 09/12/18 13:31 Non-Formulary Medication (Total Parenteral Nutrition, Central) 0 ml IV [facility] Stop: 09/13/18 13:00 Ondansetron HCl (Zofran Odt) 4 mg PO Q6H PRN PRN Reason: Nausea able to take PO Ondansetron HCl (Zofran) 4 mg IV Q6H PRN PRN Reason: Nausea/Vomiting Ondansetron HCl (Zofran) Confirm Administered Dose 4 mg .ROUTE .STK-MED ONE Stop: 09/03/18 14:41 Ondansetron HCl (Zofran) Confirm Administered Dose 4 mg .ROUTE .STK-MED ONE Stop: 09/04/18 09:47 Pantoprazole Sodium (Protonix Iv) 40 mg IV Q12H [facility] Last Admin: 09/03/18 16:07 Dose: 40 mg Piperacillin Sod/Tazobactam Sod (Zosyn) 10.125 gm .XX ASDIRECTED [facility] Stop: 09/04/18 15:00 Last Admin: 09/04/18 14:04 Dose: 10.125 gm Propofol (Diprivan 20 Ml) Confirm Administered Dose 200 mg .ROUTE .STK-MED ONE Stop: 09/03/18 14:41 Propofol (Diprivan 20 Ml) Confirm Administered Dose 200 mg .ROUTE .STK-MED ONE Stop: 09/04/18 09:47 Propofol (Diprivan 20 Ml) Confirm Administered Dose 200 mg .ROUTE .STK-MED ONE Stop: 09/06/18 07:01 Propofol (Diprivan 20 Ml) Confirm Administered Dose 200 mg .ROUTE .STK-MED ONE Stop: 09/19/18 14:22 Rocuronium [place] (Zemuron) Confirm Administered Dose 50 mg .ROUTE .STK-MED ONE Stop: 09/03/18 14:41 Rocuronium [place] (Zemuron) Confirm Administered Dose 50 mg .ROUTE .STK-MED ONE Stop: 09/04/18 09:47 Rocuronium [place] (Zemuron) Confirm Administered Dose 50 mg .ROUTE .STK-MED ONE Stop: 09/20/18 07:50 Succinylcholine Chloride (Quelicin) Confirm Administered Dose 200 mg .ROUTE .STK -MED ONE Stop: 09/03/18 14:41 Succinylcholine Chloride (Quelicin) Confirm Administered Dose 200 mg .ROUTE .STK -MED ONE Stop: 09/04/18 09:47 Succinylcholine Chloride (Quelicin) Confirm Administered Dose 200 mg .ROUTE .STK -MED ONE Stop: 09/06/18 07:01 - Exam Quality Assessment: Supplemental Oxygen (Ventilator), Central Line/PICC, DVT Prophylaxis General: Alert, Cooperative, Mild Distress Lungs: Clear to Auscultation, Normal Respiratory Effort Cardiovascular: Regular Rhythm, Tachycardia GI/Abdominal Exam: Soft, Non-Tender, No Organomegaly, No Distention Extremities: Non-Tender, No Pedal Edema Skin: Warm, Dry - Problem List Review Problem List Initiated/Reviewed/Updated: Yes - Plan Plan:: ASSESSMENT AND PLAN Acute respiratory failure with hypoxia and hypercapnia - status post placement of tracheostomy yesterday, stable since then, currently requiring fairly minimal ventilatory support. She remains very weak -furosemide 20 mg -Up to chair 4 times daily -Physical therapy -Continue fluconazole -discontinue meropenem -Mechanical ventilation with tracheostomy -treat anxiety as indicated -Daily chest x-rays Perforated sigmoid colon with sepsis - Initial surgical resection on 09/03 and Second Look laparotomy on 09/04. Sepsis has resolved. Cultures grew out Klebsiella, Escherichia coli and anaerobic bacteria. stable from this standpoint and she has completed adequate anabiotic for this infection. Malnourished with essentially no oral intake in the last 2 weeks. -Pain control as indicated -TPN Hypertension - no longer has NG. blood pressure has been stable. -discontinue enalapril -Metoprolol 25 mg by mouth twice a day -PRN meds if SBP >175 Anemia of critical illness - hemoglobin now stable with no evidence for bleeding. -Transfuse if less than 7 since she is currently hemodynamically stable and oxygenating well Acute kidney injury - renal function back to normal and stable. She does have an elevated BUN out of proportion to her creatinine but this is slowly trending down. -Management as above -Repeat labs in the morning Mixed delirium - She remains lethargic with recent sedation but sedation will be off now that she has a tracheostomy. -Symptomatically management and treatment of the above conditions Maintenance issues - - DVT prophylaxis - mechanical - GI prophylaxis - PPI - Nutrition - nothing by mouth - Rubin catheter - placed for strict intake and output monitoring and a critical patient Disposition - I would anticipate discharge to an LTAC for ventilator weaning
--- NOTE | 2018-09-21 09:12 | PN ---
DATE OF SERVICE: 09/19/2018 SUBJECTIVE: The patient has been clinically stable with x-ray yesterday. Through the night has been on BiPAP. She has relatively scant secretions, but appears to be tolerating the BiPAP and has maintained good blood gases and oxygenation on the BiPAP. She continues to diurese nicely with measured diuresis of over 3 L. At this point, ostomy is functioning, but I don't think we would want to feed her anything necessarily at this point. We will continue the TPN and present antibiotics and general support. We will try getting her up in the chair a little bit today. Potassium is marginally low, and that will be supplemented. Christiano Estrada MD /[id number]
[2018-09-21] MEDS: Ketoconazole 2% Crm 30 GM Tube TOP SCH ×3 (09:43→21:13)
[2018-09-21] MEDS: Citalopram 20 MG Tab PO SCH (09:43)
[2018-09-21] MEDS: Metoprolol Tartrate 25 MG Tab PO SCH ×2 (09:44→21:06)
--- NOTE | 2018-09-21 10:42 | PN ---
DATE OF SERVICE: 09/20/2018 The patient has been afebrile with stable vital signs. Blood pressure and heart rate are down somewhat from what they have been running. She eventually started out yesterday on BiPAP, and we will re-intubate. We will plan to proceed with a tracheostomy today. Otherwise, from a cardiovascular standpoint, she would be getting somewhat less in the way of fluid on board. The BNP is down to 5600 from 7500 yesterday, and CVP is running right around around 7. Her I and O over the last 24 hours continues to have a nice diuresis of around 1500 mL measured, which would rate to typically about 2 L given on measured losses. The colostomy seems to have some output. Her NG output has been almost 0. The hemoglobin is down a little bit to 9.2, it may be related to some fluid shifting, and we will recheck that tomorrow and perhaps consider a transfusion at that point. Otherwise, tracheostomy today and continue the present TPN for nutritional status. Christiano Estrada MD /[id number]
[2018-09-21] MEDS: Furosemide 20 MG/2 ML VIAL IVPUSH SCH ×2 (12:25→19:37)
--- NOTE | 2018-09-21 12:55 | OR ---
DATE OF PROCEDURE: 09/20/2018 PREOPERATIVE DIAGNOSIS: Persistent ventilator dependence. POSTOPERATIVE DIAGNOSES: 1. Persistent ventilator dependence. 2. Scattered tracheobronchial secretions. OPERATIVE PROCEDURES: 1. Percutaneous tracheostomy (25064). 2. Bronchoscopy for tracheobronchial toilet (71597). ANESTHESIA: General. INDICATION FOR PROCEDURE: A 77-year-old who has been maintained on ventilator persistently for now over a week. She failed weaning trial yesterday and was re-intubated and after discussion with the family members, the plan is to proceed with a tracheostomy. Potential risks of the procedure have been reviewed with the patient's sons including bleeding, infection, injury to the surrounding area, and possible tracheal stenosis, and they wished to proceed. DETAILS OF PROCEDURE: The patient was taken from the intensive care unit into the operating room and placed in a supine position. The patient already was intubated and initial general anesthetic was then induced. The upper chest and neck areas were then prepped and draped. The endotracheal tube was brought back up to the level of cords and with continuous visualization of the lungs throughout the entirety of the procedure. Initially, the transverse incision was made roughly 1 fingerbreadth above the sternal notch. Through this and the center of the trachea between the 2nd and 3rd tracheal rings, a needle was placed, the area aspirated, and guidewire was then passed. The trachea was then sequentially dilated up to the largest size dilator. Over the largest dilator, then an 8-Faroese Shiley tracheostomy tube was placed, and this was positioned under direct vision without difficulty, and the cuff was then inflated upon removal of the wire and dilator. At this point, the patient was noted to have moderate amount of secretions. Bronchoscopy was then performed through the new tracheostomy, and a small amount of blood along with scattered tracheal secretions were evacuated until everything was cleared. At that point, the tracheostomy was secured to the skin with some 2-0 nylon stitch and along with tracheostomy ties. The patient's procedure was then concluded. There were no evident complications. The patient taken back to the intensive care unit in stable condition. Christiano Estrada MD /[id number]
--- NOTE | 2018-09-21 13:27 | PN ---
DATE OF SERVICE: 09/21/2018 The patient's temperature is running in the 97-98 range, heart rates running around 100-110, blood pressures 140s/60s, and CVPs in the 6 range. She has quite clear lungs and is tolerating the tracheostomy quite well. 35% FiO2 on assist-control mode, pH is 7.52, pCO2 of 37, pO2 of 121, and O2 sats or 98.8. Secretions are quite minimal. Her ostomy continues to function to some extent, and I think we will begin a full liquid diet today. Prior to NG tube removal yesterday, she had very minimal out. She continues to diurese with diuresis of 2.2 L yesterday. She is now quite alert, and with the tracheostomy placed, she does not require any sedation. Her labs show hemoglobin 8.5, potassium marginal at 3.7. We will give some extra KCl today IV in anticipation of some diuresis. We will also give her 1 unit of packed RBCs. Continue present TPN, but she can begin a full liquid diet. We will begin TPN infusion, although take orally if satisfactory tomorrow. Ventilator weaning will be re- commenced with Dr. Kerns later today. We will have her try to stand and get out of bed at least 3 times a day. Christiano Estrada MD /[id number]
[2018-09-21] MEDS: MVI IV SCH ×4 (19:30)
[2018-09-21] MEDS: VITAMIN K IV SCH ×4 (19:30)
[2018-09-21] MEDS: CALCIUM IV SCH ×4 (19:30)
[2018-09-21] MEDS: LYTES IV SCH ×4 (19:30)
[2018-09-21] MEDS: [UNRECOGNIZED DRUG - OTHER] IV SCH ×4 (19:30)
[2018-09-21] MEDS: Fluconazole/Normal Saline 400 MG in Premix Bag 1 BAG IV SCH (19:39)
[2018-09-21] MEDS: Pantoprazole 40 MG Vial IV SCH (21:45)
[2018-09-22] MEDS: HYDROmorphone 0.5 MG/0.5 ML Syringe IVPUSH PRN ×2 (03:29→20:56)
[2018-09-22] MEDS: Albuterol/Ipratropium 3.0-0.5 MG/3 ML Neb Soln NEB SCH ×4 (07:14→20:44)
--- NOTE | 2018-09-22 07:39 | PCM.PN ---
- General Info Date of Service: 09/22/18 Functional Status: Reports: Pain Controlled - Review of Systems Systems Review Comment:: Tina Muniz is a 77 year old female who is on postoperative day #19 from the original exploratory laparotomy surgery. Labs show Hemoglobin at 9.2 and potassium at 3.6. BNP is 5235. Total intake is 2816 mL, intake through IV is 2786 and oral intake is 30 mL, total output through Rubin catheter is 1510 mL. Incision site appears to be healing well. Mental status: Alert and communicative. SpO2 is around 99-100%. CVP was 9 last evening and has increased to 12 now. - Patient Data Vitals - Most Recent: Last Vital Signs Temp 36.3 C 09/22/18 05:52 Pulse 97 09/22/18 07:13 Resp 15 09/22/18 05:52 BP 121/46 L 09/22/18 05:52 Pulse Ox 99 09/22/18 05:52 Weight - Most Recent: 74.843 kg I&O - Last 24 Hours: Intake & Output 09/21/18 09/22/18 09/22/18 22:59 06:59 14:59 Intake Total 1740 1056 Output Total 575 695 Balance 1165 361 Lab Results Last 24 Hours: Laboratory Results - last 24 hr 09/21/18 09/22/18 09/22/18 Range/Units 06:48 04:15 04:15 WBC 6.0 (4.5-11.0) K/uL RBC 2.98 L (3.30-5.50) M/uL Hgb 9.2 L (12.0-15.0) g/dL Hct 29.0 L (36.0-48.0) % MCV 97 (80-98) fL MCH 31 (27-31) pg MCHC 32 (32-36) % Plt Count 298 (150-400) K/uL Puncture Site ABG pH (7.350-7.450) ABG pCO2 (35.0-42.0) mmHg ABG pO2 (75.0-100.0) mmHg ABG HCO3 (22.0-26.0) mmol/L ABG Total CO2 (21.0-25.0) mmol/L ABG O2 Saturation (95.0-98.0) % ABG O2 Content (15.0-23.0) %vol ABG Base Excess mm/L ABG Hemoglobin (12.0-16.0) g/dL ABG Oxyhemoglobin % ABG Carboxyhemoglobin (0.0-1.6) % ABG Methemoglobin % O2 Delivery Device Oxygen Flow Rate L Sodium 142 (140-148) mmol/L Potassium 3.6 (3.6-5.2) mmol/L Chloride 105 (100-108) mmol/L Carbon Dioxide 31 (21-32) mmol/L Anion Gap 5.7 (5.0-14.0) mmol/L BUN 45 H (7-18) mg/dL Creatinine 0.8 (0.6-1.0) mg/dL Est Cr Clr Drug Dosing 44.61 mL/min Estimated GFR (MDRD) > 60 (>60) Glucose 123 H (74-106) mg/dL Calcium 9.4 (8.5-10.1) mg/dL Phosphorus 4.3 (2.5-4.9) mg/dL Magnesium 1.8 (1.8-2.4) mg/dL Total Bilirubin 1.0 (0.2-1.0) mg/dL AST 139 H (15-37) U/L ALT 199 H (12-78) U/L Alkaline Phosphatase 458 H (46-116) U/L NT-Pro-B Natriuret Pep 5235 H (5-450) pg/mL Total Protein 5.7 L (6.4-8.2) g/dL Albumin 1.9 L (3.4-5.0) g/dL Globulin 3.8 H (2.3-3.5) g/dL Albumin/Globulin Ratio 0.5 L (1.2-2.2) Blood Type O POSITIVE Gel Antibody Screen Negative Crossmatch See Detail 09/22/18 Range/Units 04:40 WBC (4.5-11.0) K/uL RBC (3.30-5.50) M/uL Hgb (12.0-15.0) g/dL Hct (36.0-48.0) % MCV (80-98) fL MCH (27-31) pg MCHC (32-36) % Plt Count (150-400) K/uL Puncture Site Line ABG pH 7.472 H (7.350-7.450) ABG pCO2 42.2 H (35.0-42.0) mmHg ABG pO2 102.0 H (75.0-100.0) mmHg ABG HCO3 30.5 H (22.0-26.0) mmol/L ABG Total CO2 28.2 H (21.0-25.0) mmol/L ABG O2 Saturation 98.0 (95.0-98.0) % ABG O2 Content 12.8 L (15.0-23.0) %vol ABG Base Excess 6.6 mm/L ABG Hemoglobin 9.4 L (12.0-16.0) g/dL ABG Oxyhemoglobin 95.6 % ABG Carboxyhemoglobin 1.7 H (0.0-1.6) % ABG Methemoglobin 0.7 % O2 Delivery Device Ventilator Oxygen Flow Rate L Sodium (140-148) mmol/L Potassium (3.6-5.2) mmol/L Chloride (100-108) mmol/L Carbon Dioxide (21-32) mmol/L Anion Gap (5.0-14.0) mmol/L BUN (7-18) mg/dL Creatinine (0.6-1.0) mg/dL Est Cr Clr Drug Dosing mL/min Estimated GFR (MDRD) (>60) Glucose (74-106) mg/dL Calcium (8.5-10.1) mg/dL Phosphorus (2.5-4.9) mg/dL Magnesium (1.8-2.4) mg/dL Total Bilirubin (0.2-1.0) mg/dL AST (15-37) U/L ALT (12-78) U/L Alkaline Phosphatase (46-116) U/L NT-Pro-B Natriuret Pep (5-450) pg/mL Total Protein (6.4-8.2) g/dL Albumin (3.4-5.0) g/dL Globulin (2.3-3.5) g/dL Albumin/Globulin Ratio (1.2-2.2) Blood Type Gel Antibody Screen Crossmatch Joseph Results Last 24 Hours: Microbiology 09/12/18 12:57 Fungal Culture - Preliminary Bronchial Aspirate - Mixed YEAST 09/14/18 08:06 Fungal Culture - Preliminary Transbronchial Aspirate YEAST Med Orders - Current: Current Medications Albuterol (Proventil Neb Soln) 2.5 mg NEB Q4H PRN PRN Reason: Dyspnea Albuterol/Ipratropium (Duoneb 3.0-0.5 Mg/3 Ml) 3 ml NEB QIDRT [facility] Last Admin: 09/22/18 07:14 Dose: 3 ml Citalopram Hydrobromide (Celexa) 20 mg PO DAILY [facility] Last Admin: 09/21/18 09:43 Dose: 20 mg Dimethicone/Zinc Oxide (Rash Relief-Zinc Oxide [place]) 0 gm TOP ASDIRECTED PRN PRN Reason: Inflammation Last Admin: 09/21/18 15:28 Dose: 2 spray Furosemide (Lasix) 20 mg IVPUSH Q6H [facility] Stop: 09/22/18 14:01 Hydralazine HCl (Apresoline) 5 mg IVPUSH Q4H PRN PRN Reason: Hypertension Last Admin: 09/19/18 13:41 Dose: 5 mg Hydromorphone HCl (Dilaudid) 0.5 mg IVPUSH Q2H PRN PRN Reason: Pain Last Admin: 09/22/18 03:29 Dose: 0.5 mg Hydroxyzine HCl (Vistaril) 50 mg IM Q4H PRN PRN Reason: Pain Heparin Sodium (Porcine) 5,000 (units/ Sodium Chloride) 501 mls @ 5 mls/hr IV ASDIRECTED [facility] Last Admin: 09/16/18 14:00 Dose: 5 mls/hr Heparin Sodium (Porcine) 5,000 (units/ Sodium Chloride) 501 mls @ 5 mls/hr IV ASDIRECTED [facility] Last Admin: 09/19/18 21:38 Dose: 5 mls/hr Sodium Chloride (Normal Saline) 1,000 mls @ 0 mls/hr IV ASDIRECTED [facility] Last Admin: 09/19/18 05:15 Dose: 12.5 mls/hr Lactated Ringer's (Ringers, Lactated) 1,000 mls @ 25 mls/hr IV ASDIRECTED [facility] Last Admin: 09/18/18 21:11 Dose: 25 mls/hr Fluconazole/Sodium Chloride (400 mg/ Premix) 200 mls @ 100 mls/hr IV Q24H [facility] Last Admin: 09/21/18 19:39 Dose: 100 mls/hr Multivitamins/Minerals 10 ml/Chromium/Copper/Manganese/Seleni/Zn 1 ml/ Amino Ac/ Electrol/Dextrose/Calcium 2,011 mls @ 62 mls/hr IV .BY DURATION [facility] Last Admin: 09/21/18 19:30 Dose: 62 mls/hr Amino Ac/Electrol/Dextrose/Calcium (Clinimix E 09/28) 2,000 mls @ 62 mls/hr IV .BY DURATION [facility] Ketoconazole (Nizoral 2% Crm) 0 gm TOP TID [facility] Last Admin: 09/21/18 21:13 Dose: 1 applic Lorazepam (Ativan) 0.5 mg IVPUSH Q1H PRN PRN Reason: Anxiety Last Admin: 09/19/18 11:20 Dose: 0.5 mg Metoprolol Tartrate (Lopressor) 2.5 mg IVPUSH Q4H PRN PRN Reason: Hypertension Last Admin: 09/19/18 11:44 Dose: 2.5 mg Metoprolol Tartrate (Lopressor) 25 mg PO Q12H [facility] Last Admin: 09/21/18 21:06 Dose: 25 mg Pantoprazole Sodium (Protonix Iv) 40 mg IV Q24H [facility] Last Admin: 09/21/18 21:45 Dose: 40 mg Discontinued Medications Acetaminophen (Tylenol) 650 mg PO Q4H PRN PRN Reason: Pain (Mild 1-3)/fever Acetaminophen (Tylenol) 650 mg RECTAL Q4H PRN PRN Reason: Mild pain/fever Acetylcysteine (Mucomyst 20%) 200 mg NEB QIDRT [facility] Last Admin: 09/20/18 07:00 Dose: 200 mg Albuterol (Proventil Neb Soln) 2.5 mg NEB Q4H PRN PRN Reason: Shortness Of Breath/wheezing Albuterol/Ipratropium (Duoneb 3.0-0.5 Mg/3 Ml) 3 ml INH PREPRO ONE Stop: 09/03/18 17:01 Last Admin: 09/03/18 16:25 Dose: 3 ml Albuterol/Ipratropium (Duoneb 3.0-0.5 Mg/3 Ml) 3 ml NEB QID [facility] Last Admin: 09/13/18 21:11 Dose: 3 ml Aztreonam (Azactam) Confirm Administered Dose 1 gm .ROUTE .STK-MED ONE Stop: 09/03/18 21:44 Last Admin: 09/03/18 22:15 Dose: Not Given Benazepril HCl (Lotensin) 40 mg PO ONETIME ONE Stop: 09/03/18 10:41 Last Admin: 09/03/18 11:00 Dose: 40 mg Benazepril HCl (Lotensin) 40 mg NGTUBE DAILY [facility] Last Admin: 09/20/18 09:55 Dose: Not Given Bupivacaine HCl (Marcaine 0.5%) Confirm Administered Dose 50 ml .ROUTE .STK-MED ONE Stop: 09/07/18 06:48 Last Admin: 09/07/18 10:53 Dose: 18 ml Bupivacaine HCl (Marcaine 0.5%) Confirm Administered Dose 50 ml .ROUTE .STK-MED ONE Stop: 09/11/18 09:07 Last Admin: 09/11/18 10:49 Dose: 2 ml Ropivacaine 22 ml/Dexamethasone 8 mg/Epinephrine HCl 0.4 mg/ Sodium Chloride 55.6 ml 0 ml NERVRT ASDIRECTED [facility] Ropivacaine 22 ml/Dexamethasone 8 mg/Epinephrine HCl 0.4 mg/ Sodium Chloride 55.6 ml 0 ml NERVRT ASDIRECTED [facility] Last Admin: 09/04/18 14:03 Dose: 80 syringe Ropivacaine 22 ml/Dexamethasone 8 mg/Epinephrine HCl 0.4 mg/ Sodium Chloride 55.6 ml 0 ml NERVRT ASDIRECTED [facility] Last Admin: 09/07/18 11:07 Dose: 80 syringe Dexamethasone (Dexamethasone) Confirm Administered Dose 4 mg .ROUTE .STK-MED ONE Stop: 09/03/18 14:41 Dexamethasone (Dexamethasone) Confirm Administered Dose 4 mg .ROUTE .STK-MED ONE Stop: 09/04/18 09:47 Fentanyl (Sublimaze) 25 mcg IVPUSH ONETIME ONE Stop: 09/03/18 13:57 Last Admin: 09/03/18 14:16 Dose: 25 mcg Fentanyl (Sublimaze) 25 mcg IVPUSH Q2H PRN PRN Reason: Pain (severe 7-10) Fentanyl (Sublimaze) Confirm Administered Dose 250 mcg .ROUTE .STK-MED ONE Stop: 09/03/18 14:41 Fentanyl (Sublimaze) Confirm Administered Dose 250 mcg .ROUTE .STK-MED ONE Stop: 09/04/18 09:46 Fentanyl (Sublimaze) Confirm Administered Dose 250 mcg .ROUTE .STK-MED ONE Stop: 09/04/18 13:57 Fentanyl (Sublimaze) Confirm Administered Dose 100 mcg .ROUTE .STK-MED ONE Stop: 09/11/18 10:36 Fentanyl (Sublimaze) Confirm Administered Dose 250 mcg .ROUTE .STK-MED ONE Stop: 09/20/18 07:50 Furosemide (Lasix) 20 mg IVPUSH ONETIME ONE Stop: 09/04/18 15:10 Last Admin: 09/04/18 15:18 Dose: 20 mg Furosemide (Lasix) 40 mg IV ONETIME ONE Stop: 09/06/18 08:16 Last Admin: 09/06/18 08:26 Dose: 40 mg Furosemide (Lasix) 20 mg IV Q12H [facility] Stop: 09/07/18 20:01 Last Admin: 09/07/18 20:10 Dose: 20 mg Furosemide (Lasix) 20 mg IVPUSH Q12H [facility] Stop: 09/08/18 19:01 Last Admin: 09/08/18 19:50 Dose: 20 mg Furosemide (Lasix) 20 mg IVPUSH ONETIME ONE Stop: 09/09/18 07:01 Last Admin: 09/09/18 08:14 Dose: 20 mg Furosemide (Lasix) 20 mg IVPUSH ONETIME ONE Stop: 09/09/18 11:01 Last Admin: 09/09/18 12:38 Dose: 20 mg Furosemide (Lasix) 20 mg IVPUSH ONETIME ONE Stop: 09/09/18 20:01 Furosemide (Lasix) 20 mg IV Q8H [facility] Stop: 09/11/18 00:31 Last Admin: 09/10/18 23:50 Dose: 20 mg Furosemide (Lasix) 20 mg IV Q8H [facility] Stop: 09/12/18 00:01 Last Admin: 09/11/18 23:34 Dose: 20 mg Furosemide (Lasix) 20 mg IVPUSH Q8H [facility] Stop: 09/13/18 02:31 Last Admin: 09/13/18 02:39 Dose: 20 mg Furosemide (Lasix) 20 mg IVPUSH Q8H [facility] Stop: 09/14/18 02:31 Last Admin: 09/14/18 02:29 Dose: 20 mg Furosemide (Lasix) 40 mg IVPUSH ONETIME ONE Stop: 09/14/18 10:01 Last Admin: 09/14/18 13:28 Dose: 40 mg Furosemide (Lasix) 20 mg IVPUSH BID [facility] Furosemide (Lasix) 20 mg IVPUSH ONETIME ONE Stop: 09/15/18 06:34 Last Admin: 09/15/18 06:48 Dose: 20 mg Furosemide (Lasix) 40 mg IVPUSH Q8H [facility] Stop: 09/15/18 20:31 Last Admin: 09/15/18 20:39 Dose: 40 mg Furosemide (Lasix) 40 mg IV BID [facility] Stop: 09/16/18 21:01 Last Admin: 09/16/18 21:19 Dose: 40 mg Furosemide (Lasix) 40 mg IV Q12H [facility] Stop: 09/17/18 21:01 Last Admin: 09/17/18 21:11 Dose: 40 mg Furosemide (Lasix) 40 mg IV Q8H [facility] Stop: 09/18/18 16:01 Last Admin: 09/18/18 16:00 Dose: 40 mg Furosemide (Lasix) 40 mg IV Q12H [facility] Stop: 09/19/18 20:01 Last Admin: 09/19/18 19:23 Dose: 40 mg Furosemide (Lasix) 20 mg IVPUSH Q12H [facility] Stop: 09/20/18 22:01 Last Admin: 09/20/18 21:52 Dose: 20 mg Furosemide (Lasix) 20 mg IVPUSH Q8H [facility] Stop: 09/21/18 20:01 Last Admin: 09/21/18 19:37 Dose: 20 mg Gentamicin Sulfate (Gentamicin) 1 mg IV .Pharmacy to Dose [facility] Stop: 09/08/18 14:31 Glycopyrrolate (Robinul) Confirm Administered Dose 1 mg .ROUTE .STK-MED ONE Stop: 09/03/18 14:41 Glycopyrrolate (Robinul) Confirm Administered Dose 1 mg .ROUTE .STK-MED ONE Stop: 09/04/18 09:47 Heparin Sodium (Porcine) (Heparin Sodium) Confirm Administered Dose 5,000 units .ROUTE .STK-MED ONE Stop: 09/03/18 18:32 Heparin Sodium (Porcine) (Heparin Lock Flush 100 Units/Ml) Confirm Administered Dose 500 units .ROUTE .STK-MED ONE Stop: 09/04/18 13:14 Heparin Sodium (Porcine) (Heparin Lock Flush 100 Units/Ml) Confirm Administered Dose 1,000 units .ROUTE .STK-MED ONE Stop: 09/11/18 09:07 Last Admin: 09/11/18 10:58 Dose: 1,000 units Heparin Sodium (Porcine) (Heparin Lock Flush 100 Units/Ml) Confirm Administered Dose 500 units .ROUTE .STK-MED ONE Stop: 09/11/18 10:44 Last Admin: 09/11/18 10:58 Dose: 500 units Hydromorphone HCl (Dilaudid) 0.5 mg IVPUSH ONETIME ONE Stop: 09/03/18 10:48 Last Admin: 09/03/18 11:00 Dose: 0.5 mg Hydromorphone HCl (Dilaudid) 0.5 mg IVPUSH ONETIME ONE Stop: 09/03/18 11:22 Last Admin: 09/03/18 11:25 Dose: 0.5 mg Hydromorphone HCl (Dilaudid) 0.5 mg IVPUSH ONETIME ONE Stop: 09/03/18 12:10 Last Admin: 09/03/18 12:12 Dose: 0.5 mg Hydromorphone HCl (Dilaudid) 0.5 mg IVPUSH ONETIME ONE Stop: 09/03/18 12:40 Last Admin: 09/03/18 12:44 Dose: 0.5 mg Hydromorphone HCl (Dilaudid) 1 mg IVPUSH ONETIME ONE Stop: 09/03/18 12:57 Last Admin: 09/03/18 13:00 Dose: 1 mg Hydromorphone HCl (Dilaudid [employer] 15 Mg In Ns 30 Ml) 0 mg IV ASDIRECTED PRN; Protocol PRN 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: 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 Last Admin: 09/09/18 05:52 Dose: 15 mg Sodium Chloride (Normal Saline) 1,000 mls @ 1,000 mls/hr IV .BOLUS ONE Stop: 09/03/18 12:17 Last Admin: 09/03/18 11:25 Dose: 1,000 mls/hr Piperacillin/Tazobactam/ (Dextrose 4.5 gm/ Premix) 100 mls @ 200 mls/hr IV ONETIME ONE Stop: 09/03/18 13:29 Last Admin: 09/03/18 13:04 Dose: 200 mls/hr Sodium Chloride (Normal Saline) 1,000 mls @ 500 mls/hr IV ASDIRECTED [facility] Last Admin: 09/03/18 13:00 Dose: 500 mls/hr Lactated Ringer's (Ringers, Lactated) 1,000 mls @ 125 mls/hr IV ASDIRECTED [facility] Last Admin: 09/03/18 16:07 Dose: 125 mls/hr Aztreonam 2 gm/ Sodium (Chloride) 100 mls @ 200 mls/hr IV NOW ONE Stop: 09/03/18 15:29 Last Admin: 09/03/18 14:56 Dose: 200 mls/hr Meropenem 500 mg/ Sodium (Chloride) 50 mls @ 100 mls/hr IV ONCALL ONE Stop: 09/03/18 17:29 Last Admin: 09/03/18 16:25 Dose: 100 mls/hr Piperacillin/Tazobactam/ (Dextrose 3.375 gm/ Premix) 50 mls @ 100 mls/hr IV Q6H [facility] Last Admin: 09/03/18 22:15 Dose: Not Given Sodium Chloride (Normal Saline) Confirm Administered Dose 500 mls @ as directed .ROUTE .STK-MED ONE Stop: 09/03/18 18:33 Aztreonam/Dextrose 1 gm/ (Premix) 50 mls @ 100 mls/hr IV Q8HR [facility] Meropenem 500 mg/ Sodium (Chloride) 50 mls @ 100 mls/hr IV Q8H [facility] Last Admin: 09/10/18 05:17 Dose: 100 mls/hr Sodium Chloride (Normal Saline) Confirm Administered Dose 50 mls @ as directed .ROUTE .STK-MED ONE Stop: 09/03/18 22:01 Last Admin: 09/03/18 22:21 Dose: Not Given Aztreonam/Dextrose 1 gm/ (Premix) 50 mls @ 100 mls/hr IV Q8H [facility] Last Admin: 09/04/18 07:30 Dose: Not Given Dextrose/Lactated Ringer's (Dextrose 5%-Lactated Ringers) 1,000 mls @ 100 mls/ hr IV ASDIRECTED PRN PRN Reason: Hypotension Dextrose/Lactated Ringer's (Dextrose 5%-Lactated Ringers) 1,000 mls @ 100 mls/ hr IV ASDIRECTED [facility] Last Admin: 09/05/18 02:13 Dose: 100 mls/hr Lactated Ringer's (Ringers, Lactated) 1,000 mls @ 100 mls/hr IV ASDIRECTED [facility] Last Admin: 09/04/18 04:20 Dose: 100 mls/hr Lactated Ringer's (Ringers, Lactated) 500 mls @ 500 mls/hr IV .BOLUS [facility] Last Admin: 09/04/18 01:10 Dose: 500 mls/hr Lactated Ringer's (Ringers, Lactated) 500 mls @ 500 mls/hr IV .BOLUS [facility] Last Admin: 09/04/18 03:13 Dose: 500 mls/hr Propofol (Diprivan 100 Ml) 100 mls @ 1.361 mls/hr IV TITRATE [facility]; Protocol Last Titration: 09/04/18 07:52 Dose: 14 mcg/kg/min, 3.81 mls/hr Propofol (Diprivan 100 Ml) Confirm Administered Dose 100 mls @ as directed .ROUTE .[facility]-MED ONE Stop: 09/04/18 03:45 Last Admin: 09/04/18 03:59 Dose: Not Given Lactated Ringer's (Ringers, Lactated) 500 mls @ 999 mls/hr IV .BOLUS [facility] Last Admin: 09/04/18 06:10 Dose: 999 mls/hr Aztreonam/Dextrose 1 gm/ (Premix) 50 mls @ 100 mls/hr IV Q8H [facility] Last Admin: 09/07/18 08:15 Dose: 100 mls/hr Lactated Ringer's (Ringers, Lactated) 500 mls @ 500 mls/hr IV ASDIRECTED [facility] Last Admin: 09/04/18 21:04 Dose: 500 mls/hr Lactated Ringer's (Ringers, Lactated) Confirm Administered Dose 1,000 mls @ as directed .ROUTE .[facility]-MED ONE Stop: 09/04/18 13:11 Lactated Ringer's (Ringers, Lactated) Confirm Administered Dose 1,000 mls @ as directed .ROUTE .STK-MED ONE Stop: 09/04/18 13:11 Sodium Chloride (Normal Saline) Confirm Administered Dose 10 mls @ as directed .ROUTE .[facility]-MED ONE Stop: 09/04/18 13:15 Magnesium Sulfate 2 gm/ Premix 50 mls @ 25 mls/hr IV Q6H [facility] Stop: 09/06/18 11:59 Last Admin: 09/06/18 10:17 Dose: 25 mls/hr Lactated Ringer's (Ringers, Lactated) 500 mls @ 500 mls/hr IV ASDIRECTED [facility] Stop: 09/04/18 17:46 Lactated Ringer's (Ringers, Lactated) 500 mls @ 500 mls/hr IV ONETIME ONE Stop: 09/04/18 19:29 Last Admin: 09/04/18 18:37 Dose: 500 mls/hr Lactated Ringer's (Ringers, Lactated) 500 mls @ 1,000 mls/hr IV ONETIME ONE Stop: 09/04/18 23:30 Last Admin: 09/04/18 23:18 Dose: 1,000 mls/hr Lactated Ringer's (Ringers, Lactated) 500 mls @ 1,000 mls/hr IV ONETIME ONE Stop: 09/05/18 01:44 Last Admin: 09/05/18 01:15 Dose: 1,000 mls/hr Lactated Ringer's (Ringers, Lactated) 1,000 mls @ 150 mls/hr IV ASDIRECTED [facility] Last Admin: 09/05/18 02:13 Dose: 150 mls/hr Lactated Ringer's (Ringers, Lactated) 500 mls @ 1,000 mls/hr IV ONETIME ONE Stop: 09/05/18 03:38 Last Admin: 09/05/18 03:15 Dose: 1,000 mls/hr Multivitamins/Minerals 10 ml/Chromium/Copper/Manganese/Seleni/Zn 1 ml/ Amino Ac/ Electrol/Dextrose/Calcium 2,011 mls @ 82 mls/hr IV .BY DURATION [facility] Stop: 09/05/18 13:25 Last Admin: 09/05/18 13:32 Dose: Not Given Amino Ac/Electrol/Dextrose/Calcium (Clinimix E 09/23) 2,000 mls @ 82 mls/hr IV .BY DURATION [facility] Stop: 09/05/18 13:25 Vancomycin HCl 1 gm/ Sodium (Chloride) 250 mls @ 167 mls/hr IV Q24H [facility] Last Admin: 09/05/18 12:34 Dose: 167 mls/hr Sodium Chloride (Normal Saline) 1,000 mls @ 50 mls/hr IV ASDIRECTED [facility] Last Admin: 09/05/18 12:51 Dose: 50 mls/hr Multivitamins/Minerals 10 ml/Chromium/Copper/Manganese/Seleni/Zn 1 ml/ Amino Ac/ Electrol/Dextrose/Calcium 2,011 mls @ 82 mls/hr IV .BY DURATION [facility] Stop: 09/08/18 13:20 Last Admin: 09/07/18 15:09 Dose: 82 mls/hr Amino Ac/Electrol/Dextrose/Calcium (Clinimix E 09/23) 2,000 mls @ 82 mls/hr IV .BY DURATION [facility] Stop: 09/08/18 13:20 Vancomycin HCl 1 gm/ Sodium (Chloride) 250 mls @ 167 mls/hr IV Q24H [facility] Last Admin: 09/06/18 12:00 Dose: 167 mls/hr Sodium Chloride (Normal Saline) 500 mls @ 500 mls/hr IV ASDIRECTED ONE Stop: 09/05/18 16:29 Last Admin: 09/05/18 15:40 Dose: 500 mls/hr Sodium Chloride (Normal Saline) 1,000 mls @ 100 mls/hr IV ASDIRECTED [facility] Last Admin: 09/07/18 07:31 Dose: 100 mls/hr Propofol (Diprivan 100 Ml) 100 mls @ 1.361 mls/hr IV TITRATE [facility]; Protocol Last Titration: 09/17/18 03:30 Dose: 25 mcg/kg/min, 6.804 mls/hr Potassium Phosphate 20 mmole/ (Sodium Chloride) 106.6667 mls @ 35 mls/hr IV Q3H [facility] Stop: 09/07/18 17:29 Last Admin: 09/07/18 15:01 Dose: 35 mls/hr Albumin Human (Albumin 25%) 25 gm in 100 mls @ 25 mls/hr IV DAILY [facility] Stop: 09/09/18 12:59 Last Admin: 09/09/18 08:25 Dose: 25 mls/hr Albumin Human (Albumin 25%) 25 gm in 100 mls @ 25 mls/hr IV Q24H [facility] Stop: 09/09/18 17:59 Last Admin: 09/09/18 14:32 Dose: 25 mls/hr Aztreonam 1 gm/ Sodium (Chloride) 50 mls @ 100 mls/hr IV Q8H [facility] Last Admin: 09/08/18 09:41 Dose: 100 mls/hr Vancomycin HCl 1 gm/ Sodium (Chloride) 250 mls @ 167 mls/hr IV Q18H [facility] Last Admin: 09/09/18 18:42 Dose: 167 mls/hr Sodium Chloride (Normal Saline) 1,000 mls @ 999 mls/hr IV .BOLUS ONE Stop: 09/07/18 17:39 Last Admin: 09/07/18 17:26 Dose: 999 mls/hr Potassium Acetate 40 meq/ (Sodium Chloride) 120 mls @ 30 mls/hr IV ONETIME ONE Stop: 09/08/18 13:59 Last Admin: 09/08/18 09:44 Dose: 30 mls/hr Multivitamins/Minerals 10 ml/Chromium/Copper/Manganese/Seleni/Zn 1 ml/ Amino Ac/ Electrol/Dextrose/Calcium 1,011 mls @ 62 mls/hr IV .BY DURATION [facility] Stop: 09/20/18 17:00 Last Admin: 09/19/18 09:10 Dose: 62 mls/hr Amino Ac/Electrol/Dextrose/Calcium (Clinimix E 09/28) 1,000 mls @ 62 mls/hr IV .BY DURATION [facility] Stop: 09/20/18 17:00 Last Admin: 09/20/18 01:21 Dose: 62 mls/hr Sodium Chloride (Normal Saline) 100 mls @ 3 mls/sec IV ASDIRECTED [facility] Stop: 09/08/18 15:00 Last Admin: 09/08/18 14:17 Dose: 3 mls/sec Azithromycin 500 mg/ Sodium (Chloride) 250 mls @ 250 mls/hr IV Q24H [facility] Last Admin: 09/09/18 15:27 Dose: 250 mls/hr Gentamicin Sulfate 228 mg/ (Sodium Chloride) 105.7 mls @ 100 mls/hr IV ONETIME ONE Stop: 09/08/18 17:03 Last Admin: 09/08/18 16:19 Dose: 100 mls/hr Potassium Phosphate 15 mmole/ (Sodium Chloride) 105 mls @ 55 mls/hr IV Q2H [facility] Stop: 09/09/18 12:55 Last Admin: 09/09/18 15:27 Dose: 55 mls/hr Gentamicin Sulfate 228 mg/ (Sodium Chloride) 105.7 mls @ 100 mls/hr IV Q36H [facility] Last Admin: 09/10/18 03:55 Dose: 100 mls/hr Sodium Chloride (Normal Saline) 500 mls @ 999 mls/hr IV .BOLUS ONE Stop: 09/09/18 16:34 Last Admin: 09/09/18 16:18 Dose: 999 mls/hr Sodium Chloride (Normal Saline) 500 mls @ 999 mls/hr IV .BOLUS ONE Stop: 09/09/18 17:35 Last Admin: 09/09/18 17:18 Dose: 999 mls/hr Sodium Chloride (Normal Saline) 1,000 mls @ 125 mls/hr IV ASDIRECTED [facility] Last Admin: 09/10/18 01:41 Dose: 125 mls/hr Lactated Ringer's (Ringers, Lactated) 1,000 mls @ 125 mls/hr IV ASDIRECTED [facility] Last Admin: 09/11/18 01:06 Dose: 125 mls/hr Meropenem 500 mg/ Sodium (Chloride) 25 mls @ 50 mls/hr IV Q8H [facility] Last Admin: 09/20/18 13:05 Dose: 50 mls/hr Gentamicin Sulfate 228 mg/ (Sodium Chloride) 55.7 mls @ 55 mls/hr IV Q36H [facility] Last Admin: 09/14/18 16:49 Dose: 55 mls/hr Azithromycin 500 mg/ Dextrose/ (Water) 250 mls @ 250 mls/hr IV Q24H [facility] Stop: 09/17/18 17:00 Last Admin: 09/14/18 15:42 Dose: 250 mls/hr Vancomycin HCl 1 gm/ Dextrose/ (Water) 250 mls @ 167 mls/hr IV Q24H [facility] Last Admin: 09/13/18 17:48 Dose: 167 mls/hr Fluconazole/Sodium Chloride (200 mg/ Premix) 100 mls @ 100 mls/hr IV Q24H [facility] Last Admin: 09/15/18 20:38 Dose: 100 mls/hr Magnesium Sulfate 2 gm/ Premix 50 mls @ 25 mls/hr IV Q6H [facility] Stop: 09/13/18 05:59 Last Admin: 09/13/18 03:31 Dose: 25 mls/hr Potassium Phosphate 22.5 mmole (/ Dextrose/Water) 107.5 mls @ 27 mls/hr IV Q4H [facility] Stop: 09/11/18 17:29 Last Admin: 09/11/18 14:45 Dose: 27 mls/hr Lactated Ringer's (Ringers, Lactated) 1,000 mls @ 75 mls/hr IV ASDIRECTED [facility] Last Admin: 09/13/18 22:27 Dose: 75 mls/hr Sodium Chloride (Normal Saline) Confirm Administered Dose 10 mls @ as directed .ROUTE .STK-MED ONE Stop: 09/11/18 10:41 Potassium Chloride 40 meq/ (Premix) 100 mls @ 25 mls/hr IV ONETIME ONE Stop: 09/13/18 12:59 Last Admin: 09/13/18 09:31 Dose: 25 mls/hr Potassium Chloride 40 meq/ (Premix) 100 mls @ 25 mls/hr IV ONETIME ONE Stop: 09/13/18 17:59 Last Admin: 09/13/18 13:11 Dose: 25 mls/hr Albumin Human (Albumin 25%) 25 gm in 100 mls @ 25 mls/hr IV Q24H [facility] Stop: 09/16/18 11:59 Last Admin: 09/16/18 09:02 Dose: 25 mls/hr Albumin Human (Albumin 25%) 25 gm in 100 mls @ 25 mls/hr IV Q24H [facility] Stop: 09/16/18 15:59 Last Admin: 09/16/18 12:33 Dose: 25 mls/hr Potassium Chloride 40 meq/ (Premix) 100 mls @ 25 mls/hr IV ONETIME ONE Stop: 09/16/18 11:59 Last Admin: 09/16/18 08:02 Dose: 25 mls/hr Potassium Chloride 20 meq/ (Premix) 100 mls @ 50 mls/hr IV ONETIME ONE Stop: 09/16/18 13:59 Last Admin: 09/16/18 11:36 Dose: 50 mls/hr Potassium Chloride 40 meq/ (Premix) 100 mls @ 25 mls/hr IV ONETIME ONE Stop: 09/17/18 11:59 Last Admin: 09/17/18 08:43 Dose: 25 mls/hr Magnesium Sulfate 2 gm/ Premix 50 mls @ 25 mls/hr IV Q6H [facility] Stop: 09/19/18 05:59 Last Admin: 09/19/18 03:26 Dose: 25 mls/hr Potassium Chloride 40 meq/ (Premix) 100 mls @ 25 mls/hr IV ONETIME ONE Stop: 09/18/18 12:59 Last Admin: 09/18/18 08:34 Dose: 25 mls/hr Potassium Chloride 40 meq/ (Premix) 100 mls @ 25 mls/hr IV ONETIME ONE Stop: 09/19/18 11:59 Last Admin: 09/19/18 08:19 Dose: 25 mls/hr Potassium Chloride 20 meq/ (Premix) 100 mls @ 50 mls/hr IV ONETIME ONE Stop: 09/19/18 13:59 Last Admin: 09/19/18 11:05 Dose: 50 mls/hr Propofol (Diprivan 100 Ml) 100 mls @ 2.354 mls/hr IV TITRATE NAHED; Protocol Last Admin: 09/20/18 05:35 Dose: 15 mcg/kg/min, 7.062 mls/hr Multivitamins/Minerals 10 ml/Chromium/Copper/Manganese/Seleni/Zn 1 ml/ Amino Ac/ Electrol/Dextrose/Calcium 2,011 mls @ 100 mls/hr IV .BY DURATION NAHED Amino Ac/Electrol/Dextrose/Calcium (Clinimix E 5/20) 2,000 mls @ 100 mls/hr IV .BY DURATION NA[facility] Multivitamins/Minerals 10 ml/Chromium/Copper/Manganese/Seleni/Zn 1 ml/ Amino Ac/ Electrol/Dextrose/Calcium 2,011 mls @ 62 mls/hr IV .BY DURATION NAHED Stop: 09/21/18 16:50 Last Admin: 09/20/18 17:31 Dose: 62 mls/hr Amino Ac/Electrol/Dextrose/Calcium (Clinimix E 5/20) 2,000 mls @ 62 mls/hr IV .BY DURATION NAHED Stop: 09/21/18 16:50 Potassium Chloride 40 meq/ (Premix) 100 mls @ 25 mls/hr IV ONETIME ONE Stop: 09/21/18 12:59 Last Admin: 09/21/18 09:38 Dose: 25 mls/hr Iopamidol (Isovue-300 (61%)) 100 ml IV . DIRECTED PRN PRN Reason: RADIOLOGY EXAM Stop: 09/09/18 11:03 Last Admin: 09/08/18 14:16 Dose: 100 ml Lidocaine HCl (Xylocaine 2% Viscous) Confirm Administered Dose 15 ml .ROUTE .STK -MED ONE Stop: 09/12/18 11:15 Lidocaine HCl (Xylocaine 4% Top Soln) Confirm Administered Dose 50 ml .ROUTE .STK-MED ONE Stop: 09/12/18 11:15 Lidocaine HCl (Xylocaine 4% Top Soln) Confirm Administered Dose 50 ml .ROUTE .STK-MED ONE Stop: 09/14/18 06:57 Last Admin: 09/14/18 07:20 Dose: 20 ml Lidocaine HCl (Xylocaine-Mpf 1%) 5 ml INJECT ONETIME ONE Stop: 09/17/18 06:31 Last Admin: 09/17/18 06:52 Dose: 5 ml Lidocaine HCl (Xylocaine 2% Viscous) Confirm Administered Dose 15 ml .ROUTE .STK -MED ONE Stop: 09/20/18 06:37 Lidocaine HCl (Xylocaine 4% Top Soln) Confirm Administered Dose 50 ml .ROUTE .STK-MED ONE Stop: 09/20/18 06:38 Last Admin: 09/20/18 09:05 Dose: 50 ml Lidocaine/Epinephrine (Xylocaine 1% With Epinephrine 1:100,000) Confirm Administered Dose 50 ml .ROUTE .STK-MED ONE Stop: 09/07/18 06:48 Last Admin: 09/07/18 10:54 Dose: 18 ml Lidocaine/Epinephrine (Xylocaine 1% With Epinephrine 1:100,000) Confirm Administered Dose 50 ml .ROUTE .STK-MED ONE Stop: 09/11/18 09:07 Last Admin: 09/11/18 10:49 Dose: 2 ml Lidocaine/Epinephrine (Xylocaine 1% With Epinephrine 1:100,000) Confirm Administered Dose 50 ml .ROUTE .STK-MED ONE Stop: 09/20/18 06:38 Lorazepam (Ativan) 0.5 mg IVPUSH Q4H PRN PRN Reason: Nausea/Vomiting Lorazepam (Ativan) 0.5 mg IVPUSH Q3H PRN PRN Reason: AGITATION Last Admin: 09/18/18 13:47 Dose: 0.5 mg Meropenem (Merrem) Confirm Administered Dose 1,000 mg .ROUTE .STK-MED ONE Stop: 09/03/18 17:54 Last Admin: 09/03/18 18:32 Dose: 3,500 mg Meropenem (Merrem) Confirm Administered Dose 1,000 mg .ROUTE .STK-MED ONE Stop: 09/03/18 18:04 Meropenem (Merrem) Confirm Administered Dose 2,000 mg .ROUTE .STK-MED ONE Stop: 09/03/18 18:18 Meropenem (Merrem) Confirm Administered Dose 500 mg .ROUTE .STK-MED ONE Stop: 09/07/18 06:48 Last Admin: 09/07/18 10:53 Dose: 500 mg Metoprolol Tartrate (Lopressor) 25 mg PO ONETIME ONE Stop: 09/03/18 10:41 Last Admin: 09/03/18 11:00 Dose: 25 mg Metoprolol Tartrate (Lopressor) 5 mg IVPUSH Q6H [facility] Last Admin: 09/08/18 09:25 Dose: 5 mg Metoprolol Tartrate (Lopressor) 2.5 mg IVPUSH Q6H [facility] Last Admin: 09/10/18 03:55 Dose: 2.5 mg Metoprolol Tartrate (Lopressor) Confirm Administered Dose 5 mg .ROUTE .STK-MED ONE Stop: 09/08/18 21:53 Last Admin: 09/08/18 22:19 Dose: Not Given Metoprolol Tartrate (Lopressor) 2.5 mg IVPUSH Q4H [facility] Last Admin: 09/11/18 21:25 Dose: Not Given Morphine Sulfate (Morphine) 2 mg IVPUSH Q1H PRN PRN Reason: Anxiety Last Admin: 09/19/18 16:04 Dose: 2 mg Naloxone HCl (Narcan) 0.1 mg IV ASDIRECTED PRN PRN Reason: decreased respiratory rate Neostigmine Methylsulfate (Neostigmine) Confirm Administered Dose 5 mg .ROUTE .STK-MED ONE Stop: 09/03/18 14:41 Neostigmine Methylsulfate (Neostigmine) Confirm Administered Dose 5 mg .ROUTE .STK-MED ONE Stop: 09/04/18 09:47 Non-Formulary Medication (Total Parenteral Nutrition, Central) 0 ml IV ASDIRECTED NAHED Stop: 09/12/18 13:31 Non-Formulary Medication (Total Parenteral Nutrition, Central) 0 ml IV ASDIRECTED [facility] Stop: 09/13/18 13:00 Ondansetron HCl (Zofran Odt) 4 mg PO Q6H PRN PRN Reason: Nausea able to take PO Ondansetron HCl (Zofran) 4 mg IV Q6H PRN PRN Reason: Nausea/Vomiting Ondansetron HCl (Zofran) Confirm Administered Dose 4 mg .ROUTE .STK-MED ONE Stop: 09/03/18 14:41 Ondansetron HCl (Zofran) Confirm Administered Dose 4 mg .ROUTE .STK-MED ONE Stop: 09/04/18 09:47 Pantoprazole Sodium (Protonix Iv) 40 mg IV Q12H [facility] Last Admin: 09/03/18 16:07 Dose: 40 mg Piperacillin Sod/Tazobactam Sod (Zosyn) 10.125 gm .XX ASDIRECTED [facility] Stop: 09/04/18 15:00 Last Admin: 09/04/18 14:04 Dose: 10.125 gm Propofol (Diprivan 20 Ml) Confirm Administered Dose 200 mg .ROUTE .STK-MED ONE Stop: 09/03/18 14:41 Propofol (Diprivan 20 Ml) Confirm Administered Dose 200 mg .ROUTE .STK-MED ONE Stop: 09/04/18 09:47 Propofol (Diprivan 20 Ml) Confirm Administered Dose 200 mg .ROUTE .STK-MED ONE Stop: 09/06/18 07:01 Propofol (Diprivan 20 Ml) Confirm Administered Dose 200 mg .ROUTE .STK-MED ONE Stop: 09/19/18 14:22 Rocuronium [place] (Zemuron) Confirm Administered Dose 50 mg .ROUTE .STK-MED ONE Stop: 09/03/18 14:41 Rocuronium [place] (Zemuron) Confirm Administered Dose 50 mg .ROUTE .STK-MED ONE Stop: 09/04/18 09:47 Rocuronium [place] (Zemuron) Confirm Administered Dose 50 mg .ROUTE .STK-MED ONE Stop: 09/20/18 07:50 Succinylcholine Chloride (Quelicin) Confirm Administered Dose 200 mg .ROUTE .STK -MED ONE Stop: 09/03/18 14:41 Succinylcholine Chloride (Quelicin) Confirm Administered Dose 200 mg .ROUTE .STK -MED ONE Stop: 09/04/18 09:47 Succinylcholine Chloride (Quelicin) Confirm Administered Dose 200 mg .ROUTE .STK -MED ONE Stop: 09/06/18 07:01 - Exam Lungs: Clear to Auscultation, Normal Respiratory Effort Cardiovascular: Regular Rate, Regular Rhythm GI/Abdominal Exam: No Distention Skin: Warm, Dry, Other (Erythematous rash located on bilateral thighs and pelvic area) Wound/Incisions: Healing Well - Problem List Review Problem List Initiated/Reviewed/Updated: Yes - Assessment Assessment:: 1. 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 Exploratory laparotomy with a. sigmoid colon resection with end colotomy plus Rosa procedure b. drainage of pericolonic abscess plus diffuse peritoneal cavity washout c. small bowel resection Date of procedure: 09/03/2018, Surgeon Christiano Estrada MD 3.Indication of central venous access 4. Diffuse feculent perforation with second look laparotomy showing: a. pelvic right subphrenic with fluid collection b. segment small bowel with increasing necrosis adjacent mesentery 5. Insertion Left subclavian triple-lumen catheter 6. Second look laparotomy with: a. drainage peritoneal inflammatory fluid collection b. drainage right subphrenic inflammatory fluid collection d. plus small bowel resection 7. Date of procedure: 09/04/2018, Surgeon, Christiano Estrada MD 8. Hypoalbuminemia 9. Ventilator dependence: remains ventilator dependent 10. SP Bronchoscopy. Bony Olson MD on 09/12/2018 11. Large volume mucoid pulmonary secretions, cleaned by bronchoscopy; scant 12. Bronchial sputum culture: yeast isolated 13. Hypomagnesemia 14. Permanent ventilator dependence with: I. Placement of percutaneous 8 [place] tracheostomy tube. Date of surgery 09/20. Surgeon, Christiano Estrada MD 16. Hyperkalemia - Plan Plan:: 1. Continue current TPN content and rate 2. Transfuse 1 unit of packed red blood cells today due to hemoglobin of 9.2. 3. Administer Lasix 20 mg IV push now and after transfusion to facilitate diuresis 4. Administer Potassium Phosphate, 45 millimoles IV piggyback today to manage hypokalemia. 5. Administer sips of full liquids as tolerated 6. AM labs: CBC, CMP, Phosphorous, BNP and ABG 7. Continue to administer Ketoconazole cream to affected erythematous areas of the pelvis perineum area and bilateral thighs, three times a day for presumed fungal skin infection 8. Recheck in AM or as needed 9. Gradual increase in activity 10. Ventilator weaning as tolerated 11. May benefit from transfer to a environmental programs specialist critical care facility in the near future
[2018-09-22] MEDS: Furosemide 20 MG/2 ML VIAL IVPUSH SCH ×2 (08:23→13:54)
[2018-09-22] MEDS: Citalopram 20 MG Tab PO SCH (08:27)
[2018-09-22] MEDS: Metoprolol Tartrate 25 MG Tab PO SCH ×2 (08:27→20:44)
[2018-09-22] MEDS: Ketoconazole 2% Crm 30 GM Tube TOP SCH ×3 (08:28→21:18)
--- NOTE | 2018-09-22 11:15 | PCM.PN ---
- General Info Date of Service: 09/22/18 Subjective Update: Ms. Muniz has remained stable since yesterday. Respiratory status is essentially unchanged, continues to require moderate level of ventilatory support. Hemodynamics have been stable and she has been afebrile. Oral intake marginal, remains on TPN. Unable to provide meaningful history concerning symptoms or review of systems because of tracheostomy - Patient Data Vitals - Most Recent: Last Vital Signs Temp 97.6 F 09/22/18 10:40 Pulse 88 09/22/18 10:50 Resp 11 L 09/22/18 10:40 BP 155/64 H 09/22/18 10:40 Pulse Ox 17 L 09/22/18 09:40 Weight - Most Recent: 165 lb I&O - Last 24 Hours: Intake & Output 09/21/18 09/22/18 09/22/18 22:59 06:59 14:59 Intake Total 1740 1056 0 Output Total 575 695 Balance 1165 361 0 Lab Results Last 24 Hours: Laboratory Results - last 24 hr 09/21/18 09/22/18 09/22/18 Range/Units 06:48 04:15 04:15 WBC 6.0 (4.5-11.0) K/uL RBC 2.98 L (3.30-5.50) M/uL Hgb 9.2 L (12.0-15.0) g/dL Hct 29.0 L (36.0-48.0) % MCV 97 (80-98) fL MCH 31 (27-31) pg MCHC 32 (32-36) % Plt Count 298 (150-400) K/uL Puncture Site ABG pH (7.350-7.450) ABG pCO2 (35.0-42.0) mmHg ABG pO2 (75.0-100.0) mmHg ABG HCO3 (22.0-26.0) mmol/L ABG Total CO2 (21.0-25.0) mmol/L ABG O2 Saturation (95.0-98.0) % ABG O2 Content (15.0-23.0) %vol ABG Base Excess mm/L ABG Hemoglobin (12.0-16.0) g/dL ABG Oxyhemoglobin % ABG Carboxyhemoglobin (0.0-1.6) % ABG Methemoglobin % O2 Delivery Device Oxygen Flow Rate L Sodium 142 (140-148) mmol/L Potassium 3.6 (3.6-5.2) mmol/L Chloride 105 (100-108) mmol/L Carbon Dioxide 31 (21-32) mmol/L Anion Gap 5.7 (5.0-14.0) mmol/L BUN 45 H (7-18) mg/dL Creatinine 0.8 (0.6-1.0) mg/dL Est Cr Clr Drug Dosing 44.61 mL/min Estimated GFR (MDRD) > 60 (>60) Glucose 123 H (74-106) mg/dL Calcium 9.4 (8.5-10.1) mg/dL Phosphorus 4.3 (2.5-4.9) mg/dL Magnesium 1.8 (1.8-2.4) mg/dL Total Bilirubin 1.0 (0.2-1.0) mg/dL AST 139 H (15-37) U/L ALT 199 H (12-78) U/L Alkaline Phosphatase 458 H (46-116) U/L NT-Pro-B Natriuret Pep 5235 H (5-450) pg/mL Total Protein 5.7 L (6.4-8.2) g/dL Albumin 1.9 L (3.4-5.0) g/dL Globulin 3.8 H (2.3-3.5) g/dL Albumin/Globulin Ratio 0.5 L (1.2-2.2) Blood Type O POSITIVE Gel Antibody Screen Negative Crossmatch See Detail 09/22/18 Range/Units 04:40 WBC (4.5-11.0) K/uL RBC (3.30-5.50) M/uL Hgb (12.0-15.0) g/dL Hct (36.0-48.0) % MCV (80-98) fL MCH (27-31) pg MCHC (32-36) % Plt Count (150-400) K/uL Puncture Site Line ABG pH 7.472 H (7.350-7.450) ABG pCO2 42.2 H (35.0-42.0) mmHg ABG pO2 102.0 H (75.0-100.0) mmHg ABG HCO3 30.5 H (22.0-26.0) mmol/L ABG Total CO2 28.2 H (21.0-25.0) mmol/L ABG O2 Saturation 98.0 (95.0-98.0) % ABG O2 Content 12.8 L (15.0-23.0) %vol ABG Base Excess 6.6 mm/L ABG Hemoglobin 9.4 L (12.0-16.0) g/dL ABG Oxyhemoglobin 95.6 % ABG Carboxyhemoglobin 1.7 H (0.0-1.6) % ABG Methemoglobin 0.7 % O2 Delivery Device Ventilator Oxygen Flow Rate L Sodium (140-148) mmol/L Potassium (3.6-5.2) mmol/L Chloride (100-108) mmol/L Carbon Dioxide (21-32) mmol/L Anion Gap (5.0-14.0) mmol/L BUN (7-18) mg/dL Creatinine (0.6-1.0) mg/dL Est Cr Clr Drug Dosing mL/min Estimated GFR (MDRD) (>60) Glucose (74-106) mg/dL Calcium (8.5-10.1) mg/dL Phosphorus (2.5-4.9) mg/dL Magnesium (1.8-2.4) mg/dL Total Bilirubin (0.2-1.0) mg/dL AST (15-37) U/L ALT (12-78) U/L Alkaline Phosphatase (46-116) U/L NT-Pro-B Natriuret Pep (5-450) pg/mL Total Protein (6.4-8.2) g/dL Albumin (3.4-5.0) g/dL Globulin (2.3-3.5) g/dL Albumin/Globulin Ratio (1.2-2.2) Blood Type Gel Antibody Screen Crossmatch Joseph Results Last 24 Hours: Microbiology 09/12/18 12:57 Fungal Culture - Preliminary Bronchial Aspirate - Mixed YEAST 09/14/18 08:06 Fungal Culture - Preliminary Transbronchial Aspirate YEAST Med Orders - Current: Current Medications Albuterol (Proventil Neb Soln) 2.5 mg NEB Q4H PRN PRN Reason: Dyspnea Albuterol/Ipratropium (Duoneb 3.0-0.5 Mg/3 Ml) 3 ml NEB QIDRT NAHED Last Admin: 09/22/18 10:51 Dose: 3 ml Citalopram Hydrobromide (Celexa) 20 mg PO DAILY [facility] Last Admin: 09/22/18 08:27 Dose: 20 mg Dimethicone/Zinc Oxide (Rash Relief-Zinc Oxide [place]) 0 gm TOP ASDIRECTED PRN PRN Reason: Inflammation Last Admin: 09/21/18 15:28 Dose: 2 spray Furosemide (Lasix) 20 mg IVPUSH Q6H [facility] Stop: 09/22/18 14:01 Last Admin: 09/22/18 08:23 Dose: 20 mg Hydralazine HCl (Apresoline) 5 mg IVPUSH Q4H PRN PRN Reason: Hypertension Last Admin: 09/19/18 13:41 Dose: 5 mg Hydromorphone HCl (Dilaudid) 0.5 mg IVPUSH Q2H PRN PRN Reason: Pain Last Admin: 09/22/18 03:29 Dose: 0.5 mg Hydroxyzine HCl (Vistaril) 50 mg IM Q4H PRN PRN Reason: Pain Heparin Sodium (Porcine) 5,000 (units/ Sodium Chloride) 501 mls @ 5 mls/hr IV ASDIRECTED [facility] Last Admin: 09/19/18 21:38 Dose: 5 mls/hr Sodium Chloride (Normal Saline) 1,000 mls @ 0 mls/hr IV ASDIRECTED [facility] Last Admin: 09/19/18 05:15 Dose: 12.5 mls/hr Lactated Ringer's (Ringers, Lactated) 1,000 mls @ 25 mls/hr IV ASDIRECTED [facility] Last Admin: 09/18/18 21:11 Dose: 25 mls/hr Fluconazole/Sodium Chloride (400 mg/ Premix) 200 mls @ 100 mls/hr IV Q24H [facility] Last Admin: 09/21/18 19:39 Dose: 100 mls/hr Multivitamins/Minerals 10 ml/Chromium/Copper/Manganese/Seleni/Zn 1 ml/ Amino Ac/ Electrol/Dextrose/Calcium 2,011 mls @ 62 mls/hr IV .BY DURATION [facility] Last Admin: 09/21/18 19:30 Dose: 62 mls/hr Amino Ac/Electrol/Dextrose/Calcium (Clinimix E 09/28) 2,000 mls @ 62 mls/hr IV .BY DURATION [facility] Potassium Phosphate 22.5 mmole (/ Sodium Chloride) 257.5 mls @ 86 mls/hr IV Q3H [facility] Stop: 09/22/18 20:59 Ketoconazole (Nizoral 2% Crm) 0 gm TOP TID [facility] Last Admin: 09/22/18 08:28 Dose: 1 applic Lorazepam (Ativan) 0.5 mg IVPUSH Q1H PRN PRN Reason: Anxiety Last Admin: 09/19/18 11:20 Dose: 0.5 mg Metoprolol Tartrate (Lopressor) 2.5 mg IVPUSH Q4H PRN PRN Reason: Hypertension Last Admin: 09/19/18 11:44 Dose: 2.5 mg Metoprolol Tartrate (Lopressor) 25 mg PO Q12H [facility] Last Admin: 09/22/18 08:27 Dose: 25 mg Pantoprazole Sodium (Protonix Iv) 40 mg IV Q24H [facility] Last Admin: 09/21/18 21:45 Dose: 40 mg Discontinued Medications Acetaminophen (Tylenol) 650 mg PO Q4H PRN PRN Reason: Pain (Mild 1-3)/fever Acetaminophen (Tylenol) 650 mg RECTAL Q4H PRN PRN Reason: Mild pain/fever Acetylcysteine (Mucomyst 20%) 200 mg NEB QIDRT [facility] Last Admin: 09/20/18 07:00 Dose: 200 mg Albuterol (Proventil Neb Soln) 2.5 mg NEB Q4H PRN PRN Reason: Shortness Of Breath/wheezing Albuterol/Ipratropium (Duoneb 3.0-0.5 Mg/3 Ml) 3 ml INH PREPRO ONE Stop: 09/03/18 17:01 Last Admin: 09/03/18 16:25 Dose: 3 ml Albuterol/Ipratropium (Duoneb 3.0-0.5 Mg/3 Ml) 3 ml NEB QID [facility] Last Admin: 09/13/18 21:11 Dose: 3 ml Aztreonam (Azactam) Confirm Administered Dose 1 gm .ROUTE .STK-MED ONE Stop: 09/03/18 21:44 Last Admin: 09/03/18 22:15 Dose: Not Given Benazepril HCl (Lotensin) 40 mg PO ONETIME ONE Stop: 09/03/18 10:41 Last Admin: 09/03/18 11:00 Dose: 40 mg Benazepril HCl (Lotensin) 40 mg NGTUBE DAILY [facility] Last Admin: 09/20/18 09:55 Dose: Not Given Bupivacaine HCl (Marcaine 0.5%) Confirm Administered Dose 50 ml .ROUTE .STK-MED ONE Stop: 09/07/18 06:48 Last Admin: 09/07/18 10:53 Dose: 18 ml Bupivacaine HCl (Marcaine 0.5%) Confirm Administered Dose 50 ml .ROUTE .STK-MED ONE Stop: 09/11/18 09:07 Last Admin: 09/11/18 10:49 Dose: 2 ml Ropivacaine 22 ml/Dexamethasone 8 mg/Epinephrine HCl 0.4 mg/ Sodium Chloride 55.6 ml 0 ml NERVRT ASDIRECTED [facility] Ropivacaine 22 ml/Dexamethasone 8 mg/Epinephrine HCl 0.4 mg/ Sodium Chloride 55.6 ml 0 ml NERVRT ASDIRECTED [facility] Last Admin: 09/04/18 14:03 Dose: 80 syringe Ropivacaine 22 ml/Dexamethasone 8 mg/Epinephrine HCl 0.4 mg/ Sodium Chloride 55.6 ml 0 ml NERVRT ASDIRECTED [facility] Last Admin: 09/07/18 11:07 Dose: 80 syringe Dexamethasone (Dexamethasone) Confirm Administered Dose 4 mg .ROUTE .STK-MED ONE Stop: 09/03/18 14:41 Dexamethasone (Dexamethasone) Confirm Administered Dose 4 mg .ROUTE .STK-MED ONE Stop: 09/04/18 09:47 Fentanyl (Sublimaze) 25 mcg IVPUSH ONETIME ONE Stop: 09/03/18 13:57 Last Admin: 09/03/18 14:16 Dose: 25 mcg Fentanyl (Sublimaze) 25 mcg IVPUSH Q2H PRN PRN Reason: Pain (severe 7-10) Fentanyl (Sublimaze) Confirm Administered Dose 250 mcg .ROUTE .STK-MED ONE Stop: 09/03/18 14:41 Fentanyl (Sublimaze) Confirm Administered Dose 250 mcg .ROUTE .STK-MED ONE Stop: 09/04/18 09:46 Fentanyl (Sublimaze) Confirm Administered Dose 250 mcg .ROUTE .STK-MED ONE Stop: 09/04/18 13:57 Fentanyl (Sublimaze) Confirm Administered Dose 100 mcg .ROUTE .STK-MED ONE Stop: 09/11/18 10:36 Fentanyl (Sublimaze) Confirm Administered Dose 250 mcg .ROUTE .STK-MED ONE Stop: 09/20/18 07:50 Furosemide (Lasix) 20 mg IVPUSH ONETIME ONE Stop: 09/04/18 15:10 Last Admin: 09/04/18 15:18 Dose: 20 mg Furosemide (Lasix) 40 mg IV ONETIME ONE Stop: 09/06/18 08:16 Last Admin: 09/06/18 08:26 Dose: 40 mg Furosemide (Lasix) 20 mg IV Q12H [facility] Stop: 09/07/18 20:01 Last Admin: 09/07/18 20:10 Dose: 20 mg Furosemide (Lasix) 20 mg IVPUSH Q12H [facility] Stop: 09/08/18 19:01 Last Admin: 09/08/18 19:50 Dose: 20 mg Furosemide (Lasix) 20 mg IVPUSH ONETIME ONE Stop: 09/09/18 07:01 Last Admin: 09/09/18 08:14 Dose: 20 mg Furosemide (Lasix) 20 mg IVPUSH ONETIME ONE Stop: 09/09/18 11:01 Last Admin: 09/09/18 12:38 Dose: 20 mg Furosemide (Lasix) 20 mg IVPUSH ONETIME ONE Stop: 09/09/18 20:01 Furosemide (Lasix) 20 mg IV Q8H [facility] Stop: 09/11/18 00:31 Last Admin: 09/10/18 23:50 Dose: 20 mg Furosemide (Lasix) 20 mg IV Q8H [facility] Stop: 09/12/18 00:01 Last Admin: 09/11/18 23:34 Dose: 20 mg Furosemide (Lasix) 20 mg IVPUSH Q8H [facility] Stop: 09/13/18 02:31 Last Admin: 09/13/18 02:39 Dose: 20 mg Furosemide (Lasix) 20 mg IVPUSH Q8H [facility] Stop: 09/14/18 02:31 Last Admin: 09/14/18 02:29 Dose: 20 mg Furosemide (Lasix) 40 mg IVPUSH ONETIME ONE Stop: 09/14/18 10:01 Last Admin: 09/14/18 13:28 Dose: 40 mg Furosemide (Lasix) 20 mg IVPUSH BID NAHED Furosemide (Lasix) 20 mg IVPUSH ONETIME ONE Stop: 09/15/18 06:34 Last Admin: 09/15/18 06:48 Dose: 20 mg Furosemide (Lasix) 40 mg IVPUSH Q8H [facility] Stop: 09/15/18 20:31 Last Admin: 09/15/18 20:39 Dose: 40 mg Furosemide (Lasix) 40 mg IV BID [facility] Stop: 09/16/18 21:01 Last Admin: 09/16/18 21:19 Dose: 40 mg Furosemide (Lasix) 40 mg IV Q12H [facility] Stop: 09/17/18 21:01 Last Admin: 09/17/18 21:11 Dose: 40 mg Furosemide (Lasix) 40 mg IV Q8H [facility] Stop: 09/18/18 16:01 Last Admin: 09/18/18 16:00 Dose: 40 mg Furosemide (Lasix) 40 mg IV Q12H [facility] Stop: 09/19/18 20:01 Last Admin: 09/19/18 19:23 Dose: 40 mg Furosemide (Lasix) 20 mg IVPUSH Q12H [facility] Stop: 09/20/18 22:01 Last Admin: 09/20/18 21:52 Dose: 20 mg Furosemide (Lasix) 20 mg IVPUSH Q8H [facility] Stop: 09/21/18 20:01 Last Admin: 09/21/18 19:37 Dose: 20 mg Gentamicin Sulfate (Gentamicin) 1 mg IV .Pharmacy to Dose [facility] Stop: 09/08/18 14:31 Glycopyrrolate (Robinul) Confirm Administered Dose 1 mg .ROUTE .STK-MED [facility] Stop: 09/03/18 14:41 Glycopyrrolate (Robinul) Confirm Administered Dose 1 mg .ROUTE .ST-MED [facility] Stop: 09/04/18 09:47 Heparin Sodium (Porcine) (Heparin Sodium) Confirm Administered Dose 5,000 units .ROUTE .STK-MED [facility] Stop: 09/03/18 18:32 Heparin Sodium (Porcine) (Heparin Lock Flush 100 Units/Ml) Confirm Administered Dose 500 units .ROUTE .STK-MED ONE Stop: 09/04/18 13:14 Heparin Sodium (Porcine) (Heparin Lock Flush 100 Units/Ml) Confirm Administered Dose 1,000 units .ROUTE .STK-MED ONE Stop: 09/11/18 09:07 Last Admin: 09/11/18 10:58 Dose: 1,000 units Heparin Sodium (Porcine) (Heparin Lock Flush 100 Units/Ml) Confirm Administered Dose 500 units .ROUTE .STK-MED ONE Stop: 09/11/18 10:44 Last Admin: 09/11/18 10:58 Dose: 500 units Hydromorphone HCl (Dilaudid) 0.5 mg IVPUSH ONETIME ONE Stop: 09/03/18 10:48 Last Admin: 09/03/18 11:00 Dose: 0.5 mg Hydromorphone HCl (Dilaudid) 0.5 mg IVPUSH ONETIME ONE Stop: 09/03/18 11:22 Last Admin: 09/03/18 11:25 Dose: 0.5 mg Hydromorphone HCl (Dilaudid) 0.5 mg IVPUSH ONETIME ONE Stop: 09/03/18 12:10 Last Admin: 09/03/18 12:12 Dose: 0.5 mg Hydromorphone HCl (Dilaudid) 0.5 mg IVPUSH ONETIME ONE Stop: 09/03/18 12:40 Last Admin: 09/03/18 12:44 Dose: 0.5 mg Hydromorphone HCl (Dilaudid) 1 mg IVPUSH ONETIME ONE Stop: 09/03/18 12:57 Last Admin: 09/03/18 13:00 Dose: 1 mg Hydromorphone HCl (Dilaudid [employer] 15 Mg In Ns 30 Ml) 0 mg IV ASDIRECTED PRN; Protocol PRN Reason: 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 Last Admin: 09/09/18 05:52 Dose: 15 mg Sodium Chloride (Normal Saline) 1,000 mls @ 1,000 mls/hr IV .BOLUS ONE Stop: 09/03/18 12:17 Last Admin: 09/03/18 11:25 Dose: 1,000 mls/hr Piperacillin/Tazobactam/ (Dextrose 4.5 gm/ Premix) 100 mls @ 200 mls/hr IV ONETIME ONE Stop: 09/03/18 13:29 Last Admin: 09/03/18 13:04 Dose: 200 mls/hr Sodium Chloride (Normal Saline) 1,000 mls @ 500 mls/hr IV ASDIRECTED [facility] Last Admin: 09/03/18 13:00 Dose: 500 mls/hr Lactated Ringer's (Ringers, Lactated) 1,000 mls @ 125 mls/hr IV ASDIRECTED [facility] Last Admin: 09/03/18 16:07 Dose: 125 mls/hr Aztreonam 2 gm/ Sodium (Chloride) 100 mls @ 200 mls/hr IV NOW ONE Stop: 09/03/18 15:29 Last Admin: 09/03/18 14:56 Dose: 200 mls/hr Meropenem 500 mg/ Sodium (Chloride) 50 mls @ 100 mls/hr IV ONCALL ONE Stop: 09/03/18 17:29 Last Admin: 09/03/18 16:25 Dose: 100 mls/hr Piperacillin/Tazobactam/ (Dextrose 3.375 gm/ Premix) 50 mls @ 100 mls/hr IV Q6H [facility] Last Admin: 09/03/18 22:15 Dose: Not Given Sodium Chloride (Normal Saline) Confirm Administered Dose 500 mls @ as directed .ROUTE .[facility]-MED ONE Stop: 09/03/18 18:33 Aztreonam/Dextrose 1 gm/ (Premix) 50 mls @ 100 mls/hr IV Q8HR [facility] Meropenem 500 mg/ Sodium (Chloride) 50 mls @ 100 mls/hr IV Q8H [facility] Last Admin: 09/10/18 05:17 Dose: 100 mls/hr Sodium Chloride (Normal Saline) Confirm Administered Dose 50 mls @ as directed .ROUTE .STK-MED ONE Stop: 09/03/18 22:01 Last Admin: 09/03/18 22:21 Dose: Not Given Aztreonam/Dextrose 1 gm/ (Premix) 50 mls @ 100 mls/hr IV Q8H [facility] Last Admin: 09/04/18 07:30 Dose: Not Given Dextrose/Lactated Ringer's (Dextrose 5%-Lactated Ringers) 1,000 mls @ 100 mls/ hr IV ASDIRECTED PRN PRN Reason: Hypotension Dextrose/Lactated Ringer's (Dextrose 5%-Lactated Ringers) 1,000 mls @ 100 mls/ hr IV ASDIRECTED [facility] Last Admin: 09/05/18 02:13 Dose: 100 mls/hr Lactated Ringer's (Ringers, Lactated) 1,000 mls @ 100 mls/hr IV ASDIRECTED [facility] Last Admin: 09/04/18 04:20 Dose: 100 mls/hr Lactated Ringer's (Ringers, Lactated) 500 mls @ 500 mls/hr IV .BOLUS NAHED Last Admin: 09/04/18 01:10 Dose: 500 mls/hr Lactated Ringer's (Ringers, Lactated) 500 mls @ 500 mls/hr IV .BOLUS NAHED Last Admin: 09/04/18 03:13 Dose: 500 mls/hr Propofol (Diprivan 100 Ml) 100 mls @ 1.361 mls/hr IV TITRATE NAH[facility]; Protocol Last Titration: 09/04/18 07:52 Dose: 14 mcg/kg/min, 3.81 mls/hr Propofol (Diprivan 100 Ml) Confirm Administered Dose 100 mls @ as directed .ROUTE .STK-MED ONE Stop: 09/04/18 03:45 Last Admin: 09/04/18 03:59 Dose: Not Given Lactated Ringer's (Ringers, Lactated) 500 mls @ 999 mls/hr IV .BOLUS NAHED Last Admin: 09/04/18 06:10 Dose: 999 mls/hr Aztreonam/Dextrose 1 gm/ (Premix) 50 mls @ 100 mls/hr IV Q8H [facility] Last Admin: 09/07/18 08:15 Dose: 100 mls/hr Lactated Ringer's (Ringers, Lactated) 500 mls @ 500 mls/hr IV ASDIRECTED [facility] Last Admin: 09/04/18 21:04 Dose: 500 mls/hr Lactated Ringer's (Ringers, Lactated) Confirm Administered Dose 1,000 mls @ as directed .ROUTE .STK-MED ONE Stop: 09/04/18 13:11 Lactated Ringer's (Ringers, Lactated) Confirm Administered Dose 1,000 mls @ as directed .ROUTE .STK-MED ONE Stop: 09/04/18 13:11 Sodium Chloride (Normal Saline) Confirm Administered Dose 10 mls @ as directed .ROUTE .STK-MED ONE Stop: 09/04/18 13:15 Magnesium Sulfate 2 gm/ Premix 50 mls @ 25 mls/hr IV Q6H [facility] Stop: 09/06/18 11:59 Last Admin: 09/06/18 10:17 Dose: 25 mls/hr Lactated Ringer's (Ringers, Lactated) 500 mls @ 500 mls/hr IV ASDIRECTED [facility] Stop: 09/04/18 17:46 Heparin Sodium (Porcine) 5,000 (units/ Sodium Chloride) 501 mls @ 5 mls/hr IV ASDIRECTED [facility] Last Admin: 09/16/18 14:00 Dose: 5 mls/hr Lactated Ringer's (Ringers, Lactated) 500 mls @ 500 mls/hr IV ONETIME ONE Stop: 09/04/18 19:29 Last Admin: 09/04/18 18:37 Dose: 500 mls/hr Lactated Ringer's (Ringers, Lactated) 500 mls @ 1,000 mls/hr IV ONETIME ONE Stop: 09/04/18 23:30 Last Admin: 09/04/18 23:18 Dose: 1,000 mls/hr Lactated Ringer's (Ringers, Lactated) 500 mls @ 1,000 mls/hr IV ONETIME ONE Stop: 09/05/18 01:44 Last Admin: 09/05/18 01:15 Dose: 1,000 mls/hr Lactated Ringer's (Ringers, Lactated) 1,000 mls @ 150 mls/hr IV ASDIRECTED [facility] Last Admin: 09/05/18 02:13 Dose: 150 mls/hr Lactated Ringer's (Ringers, Lactated) 500 mls @ 1,000 mls/hr IV ONETIME ONE Stop: 09/05/18 03:38 Last Admin: 09/05/18 03:15 Dose: 1,000 mls/hr Multivitamins/Minerals 10 ml/Chromium/Copper/Manganese/Seleni/Zn 1 ml/ Amino Ac/ Electrol/Dextrose/Calcium 2,011 mls @ 82 mls/hr IV .BY DURATION [facility] Stop: 09/05/18 13:25 Last Admin: 09/05/18 13:32 Dose: Not Given Amino Ac/Electrol/Dextrose/Calcium (Clinimix E 09/23) 2,000 mls @ 82 mls/hr IV .BY DURATION [facility] Stop: 09/05/18 13:25 Vancomycin HCl 1 gm/ Sodium (Chloride) 250 mls @ 167 mls/hr IV Q24H [facility] Last Admin: 09/05/18 12:34 Dose: 167 mls/hr Sodium Chloride (Normal Saline) 1,000 mls @ 50 mls/hr IV ASDIRECTED [facility] Last Admin: 09/05/18 12:51 Dose: 50 mls/hr Multivitamins/Minerals 10 ml/Chromium/Copper/Manganese/Seleni/Zn 1 ml/ Amino Ac/ Electrol/Dextrose/Calcium 2,011 mls @ 82 mls/hr IV .BY DURATION [facility] Stop: 09/08/18 13:20 Last Admin: 09/07/18 15:09 Dose: 82 mls/hr Amino Ac/Electrol/Dextrose/Calcium (Clinimix E 09/23) 2,000 mls @ 82 mls/hr IV .BY DURATION [facility] Stop: 09/08/18 13:20 Vancomycin HCl 1 gm/ Sodium (Chloride) 250 mls @ 167 mls/hr IV Q24H [facility] Last Admin: 09/06/18 12:00 Dose: 167 mls/hr Sodium Chloride (Normal Saline) 500 mls @ 500 mls/hr IV ASDIRECTED ONE Stop: 09/05/18 16:29 Last Admin: 09/05/18 15:40 Dose: 500 mls/hr Sodium Chloride (Normal Saline) 1,000 mls @ 100 mls/hr IV ASDIRECTED [facility] Last Admin: 09/07/18 07:31 Dose: 100 mls/hr Propofol (Diprivan 100 Ml) 100 mls @ 1.361 mls/hr IV TITRATE NAH[facility]; Protocol Last Titration: 09/17/18 03:30 Dose: 25 mcg/kg/min, 6.804 mls/hr Potassium Phosphate 20 mmole/ (Sodium Chloride) 106.6667 mls @ 35 mls/hr IV Q3H [facility] Stop: 09/07/18 17:29 Last Admin: 09/07/18 15:01 Dose: 35 mls/hr Albumin Human (Albumin 25%) 25 gm in 100 mls @ 25 mls/hr IV DAILY [facility] Stop: 09/09/18 12:59 Last Admin: 09/09/18 08:25 Dose: 25 mls/hr Albumin Human (Albumin 25%) 25 gm in 100 mls @ 25 mls/hr IV Q24H [facility] Stop: 09/09/18 17:59 Last Admin: 09/09/18 14:32 Dose: 25 mls/hr Aztreonam 1 gm/ Sodium (Chloride) 50 mls @ 100 mls/hr IV Q8H [facility] Last Admin: 09/08/18 09:41 Dose: 100 mls/hr Vancomycin HCl 1 gm/ Sodium (Chloride) 250 mls @ 167 mls/hr IV Q18H [facility] Last Admin: 09/09/18 18:42 Dose: 167 mls/hr Sodium Chloride (Normal Saline) 1,000 mls @ 999 mls/hr IV .BOLUS ONE Stop: 09/07/18 17:39 Last Admin: 09/07/18 17:26 Dose: 999 mls/hr Potassium Acetate 40 meq/ (Sodium Chloride) 120 mls @ 30 mls/hr IV ONETIME ONE Stop: 09/08/18 13:59 Last Admin: 09/08/18 09:44 Dose: 30 mls/hr Multivitamins/Minerals 10 ml/Chromium/Copper/Manganese/Seleni/Zn 1 ml/ Amino Ac/ Electrol/Dextrose/Calcium 1,011 mls @ 62 mls/hr IV .BY DURATION [facility] Stop: 09/20/18 17:00 Last Admin: 09/19/18 09:10 Dose: 62 mls/hr Amino Ac/Electrol/Dextrose/Calcium (Clinimix E 5/20) 1,000 mls @ 62 mls/hr IV .BY DURATION [facility] Stop: 09/20/18 17:00 Last Admin: 09/20/18 01:21 Dose: 62 mls/hr Sodium Chloride (Normal Saline) 100 mls @ 3 mls/sec IV ASDIRECTED [facility] Stop: 09/08/18 15:00 Last Admin: 09/08/18 14:17 Dose: 3 mls/sec Azithromycin 500 mg/ Sodium (Chloride) 250 mls @ 250 mls/hr IV Q24H [facility] Last Admin: 09/09/18 15:27 Dose: 250 mls/hr Gentamicin Sulfate 228 mg/ (Sodium Chloride) 105.7 mls @ 100 mls/hr IV ONETIME ONE Stop: 09/08/18 17:03 Last Admin: 09/08/18 16:19 Dose: 100 mls/hr Potassium Phosphate 15 mmole/ (Sodium Chloride) 105 mls @ 55 mls/hr IV Q2H [facility] Stop: 09/09/18 12:55 Last Admin: 09/09/18 15:27 Dose: 55 mls/hr Gentamicin Sulfate 228 mg/ (Sodium Chloride) 105.7 mls @ 100 mls/hr IV Q36H [facility] Last Admin: 09/10/18 03:55 Dose: 100 mls/hr Sodium Chloride (Normal Saline) 500 mls @ 999 mls/hr IV .BOLUS ONE Stop: 09/09/18 16:34 Last Admin: 09/09/18 16:18 Dose: 999 mls/hr Sodium Chloride (Normal Saline) 500 mls @ 999 mls/hr IV .BOLUS ONE Stop: 09/09/18 17:35 Last Admin: 09/09/18 17:18 Dose: 999 mls/hr Sodium Chloride (Normal Saline) 1,000 mls @ 125 mls/hr IV ASDIRECTED [facility] Last Admin: 09/10/18 01:41 Dose: 125 mls/hr Lactated Ringer's (Ringers, Lactated) 1,000 mls @ 125 mls/hr IV ASDIRECTED [facility] Last Admin: 09/11/18 01:06 Dose: 125 mls/hr Meropenem 500 mg/ Sodium (Chloride) 25 mls @ 50 mls/hr IV Q8H [facility] Last Admin: 09/20/18 13:05 Dose: 50 mls/hr Gentamicin Sulfate 228 mg/ (Sodium Chloride) 55.7 mls @ 55 mls/hr IV Q36H [facility] Last Admin: 09/14/18 16:49 Dose: 55 mls/hr Azithromycin 500 mg/ Dextrose/ (Water) 250 mls @ 250 mls/hr IV Q24H [facility] Stop: 09/17/18 17:00 Last Admin: 09/14/18 15:42 Dose: 250 mls/hr Vancomycin HCl 1 gm/ Dextrose/ (Water) 250 mls @ 167 mls/hr IV Q24H [facility] Last Admin: 09/13/18 17:48 Dose: 167 mls/hr Fluconazole/Sodium Chloride (200 mg/ Premix) 100 mls @ 100 mls/hr IV Q24H [facility] Last Admin: 09/15/18 20:38 Dose: 100 mls/hr Magnesium Sulfate 2 gm/ Premix 50 mls @ 25 mls/hr IV Q6H [facility] Stop: 09/13/18 05:59 Last Admin: 09/13/18 03:31 Dose: 25 mls/hr Potassium Phosphate 22.5 mmole (/ Dextrose/Water) 107.5 mls @ 27 mls/hr IV Q4H [facility] Stop: 09/11/18 17:29 Last Admin: 09/11/18 14:45 Dose: 27 mls/hr Lactated Ringer's (Ringers, Lactated) 1,000 mls @ 75 mls/hr IV ASDIRECTED [facility] Last Admin: 09/13/18 22:27 Dose: 75 mls/hr Sodium Chloride (Normal Saline) Confirm Administered Dose 10 mls @ as directed .ROUTE .STK-MED ONE Stop: 09/11/18 10:41 Potassium Chloride 40 meq/ (Premix) 100 mls @ 25 mls/hr IV ONETIME ONE Stop: 09/13/18 12:59 Last Admin: 09/13/18 09:31 Dose: 25 mls/hr Potassium Chloride 40 meq/ (Premix) 100 mls @ 25 mls/hr IV ONETIME ONE Stop: 09/13/18 17:59 Last Admin: 09/13/18 13:11 Dose: 25 mls/hr Albumin Human (Albumin 25%) 25 gm in 100 mls @ 25 mls/hr IV Q24H [facility] Stop: 09/16/18 11:59 Last Admin: 09/16/18 09:02 Dose: 25 mls/hr Albumin Human (Albumin 25%) 25 gm in 100 mls @ 25 mls/hr IV Q24H [facility] Stop: 09/16/18 15:59 Last Admin: 09/16/18 12:33 Dose: 25 mls/hr Potassium Chloride 40 meq/ (Premix) 100 mls @ 25 mls/hr IV ONETIME ONE Stop: 09/16/18 11:59 Last Admin: 09/16/18 08:02 Dose: 25 mls/hr Potassium Chloride 20 meq/ (Premix) 100 mls @ 50 mls/hr IV ONETIME ONE Stop: 09/16/18 13:59 Last Admin: 09/16/18 11:36 Dose: 50 mls/hr Potassium Chloride 40 meq/ (Premix) 100 mls @ 25 mls/hr IV ONETIME ONE Stop: 09/17/18 11:59 Last Admin: 09/17/18 08:43 Dose: 25 mls/hr Magnesium Sulfate 2 gm/ Premix 50 mls @ 25 mls/hr IV Q6H NAHED Stop: 09/19/18 05:59 Last Admin: 09/19/18 03:26 Dose: 25 mls/hr Potassium Chloride 40 meq/ (Premix) 100 mls @ 25 mls/hr IV ONETIME ONE Stop: 09/18/18 12:59 Last Admin: 09/18/18 08:34 Dose: 25 mls/hr Potassium Chloride 40 meq/ (Premix) 100 mls @ 25 mls/hr IV ONETIME ONE Stop: 09/19/18 11:59 Last Admin: 09/19/18 08:19 Dose: 25 mls/hr Potassium Chloride 20 meq/ (Premix) 100 mls @ 50 mls/hr IV ONETIME ONE Stop: 09/19/18 13:59 Last Admin: 09/19/18 11:05 Dose: 50 mls/hr Propofol (Diprivan 100 Ml) 100 mls @ 2.354 mls/hr IV TITRATE NAHED; Protocol Last Admin: 09/20/18 05:35 Dose: 15 mcg/kg/min, 7.062 mls/hr Multivitamins/Minerals 10 ml/Chromium/Copper/Manganese/Seleni/Zn 1 ml/ Amino Ac/ Electrol/Dextrose/Calcium 2,011 mls @ 100 mls/hr IV .BY DURATION NAHED Amino Ac/Electrol/Dextrose/Calcium (Clinimix E 5/20) 2,000 mls @ 100 mls/hr IV .BY DURATION NAHED Multivitamins/Minerals 10 ml/Chromium/Copper/Manganese/Seleni/Zn 1 ml/ Amino Ac/ Electrol/Dextrose/Calcium 2,011 mls @ 62 mls/hr IV .BY DURATION NAHED Stop: 09/21/18 16:50 Last Admin: 09/20/18 17:31 Dose: 62 mls/hr Amino Ac/Electrol/Dextrose/Calcium (Clinimix E 5/20) 2,000 mls @ 62 mls/hr IV .BY DURATION NAHED Stop: 09/21/18 16:50 Potassium Chloride 40 meq/ (Premix) 100 mls @ 25 mls/hr IV ONETIME ONE Stop: 09/21/18 12:59 Last Admin: 09/21/18 09:38 Dose: 25 mls/hr Iopamidol (Isovue-300 (61%)) 100 ml IV . DIRECTED PRN PRN Reason: RADIOLOGY EXAM Stop: 09/09/18 11:03 Last Admin: 09/08/18 14:16 Dose: 100 ml Lidocaine HCl (Xylocaine 2% Viscous) Confirm Administered Dose 15 ml .ROUTE .STK -MED ONE Stop: 09/12/18 11:15 Lidocaine HCl (Xylocaine 4% Top Soln) Confirm Administered Dose 50 ml .ROUTE .STK-MED ONE Stop: 09/12/18 11:15 Lidocaine HCl (Xylocaine 4% Top Soln) Confirm Administered Dose 50 ml .ROUTE .STK-MED ONE Stop: 09/14/18 06:57 Last Admin: 09/14/18 07:20 Dose: 20 ml Lidocaine HCl (Xylocaine-Mpf 1%) 5 ml INJECT ONETIME ONE Stop: 09/17/18 06:31 Last Admin: 09/17/18 06:52 Dose: 5 ml Lidocaine HCl (Xylocaine 2% Viscous) Confirm Administered Dose 15 ml .ROUTE .STK -MED ONE Stop: 09/20/18 06:37 Lidocaine HCl (Xylocaine 4% Top Soln) Confirm Administered Dose 50 ml .ROUTE .STK-MED ONE Stop: 09/20/18 06:38 Last Admin: 09/20/18 09:05 Dose: 50 ml Lidocaine/Epinephrine (Xylocaine 1% With Epinephrine 1:100,000) Confirm Administered Dose 50 ml .ROUTE .STK-MED ONE Stop: 09/07/18 06:48 Last Admin: 09/07/18 10:54 Dose: 18 ml Lidocaine/Epinephrine (Xylocaine 1% With Epinephrine 1:100,000) Confirm Administered Dose 50 ml .ROUTE .STK-MED ONE Stop: 09/11/18 09:07 Last Admin: 09/11/18 10:49 Dose: 2 ml Lidocaine/Epinephrine (Xylocaine 1% With Epinephrine 1:100,000) Confirm Administered Dose 50 ml .ROUTE .STK-MED ONE Stop: 09/20/18 06:38 Lorazepam (Ativan) 0.5 mg IVPUSH Q4H PRN PRN Reason: Nausea/Vomiting Lorazepam (Ativan) 0.5 mg IVPUSH Q3H PRN PRN Reason: AGITATION Last Admin: 09/18/18 13:47 Dose: 0.5 mg Meropenem (Merrem) Confirm Administered Dose 1,000 mg .ROUTE .STK-MED ONE Stop: 09/03/18 17:54 Last Admin: 09/03/18 18:32 Dose: 3,500 mg Meropenem (Merrem) Confirm Administered Dose 1,000 mg .ROUTE .STK-MED ONE Stop: 09/03/18 18:04 Meropenem (Merrem) Confirm Administered Dose 2,000 mg .ROUTE .STK-MED ONE Stop: 09/03/18 18:18 Meropenem (Merrem) Confirm Administered Dose 500 mg .ROUTE .STK-MED ONE Stop: 09/07/18 06:48 Last Admin: 09/07/18 10:53 Dose: 500 mg Metoprolol Tartrate (Lopressor) 25 mg PO ONETIME ONE Stop: 09/03/18 10:41 Last Admin: 09/03/18 11:00 Dose: 25 mg Metoprolol Tartrate (Lopressor) 5 mg IVPUSH Q6H [facility] Last Admin: 09/08/18 09:25 Dose: 5 mg Metoprolol Tartrate (Lopressor) 2.5 mg IVPUSH Q6H [facility] Last Admin: 09/10/18 03:55 Dose: 2.5 mg Metoprolol Tartrate (Lopressor) Confirm Administered Dose 5 mg .ROUTE .STK-MED ONE Stop: 09/08/18 21:53 Last Admin: 09/08/18 22:19 Dose: Not Given Metoprolol Tartrate (Lopressor) 2.5 mg IVPUSH Q4H [facility] Last Admin: 09/11/18 21:25 Dose: Not Given Morphine Sulfate (Morphine) 2 mg IVPUSH Q1H PRN PRN Reason: Anxiety Last Admin: 09/19/18 16:04 Dose: 2 mg Naloxone HCl (Narcan) 0.1 mg IV ASDIRECTED PRN PRN Reason: decreased respiratory rate Neostigmine Methylsulfate (Neostigmine) Confirm Administered Dose 5 mg .ROUTE .STK-MED ONE Stop: 09/03/18 14:41 Neostigmine Methylsulfate (Neostigmine) Confirm Administered Dose 5 mg .ROUTE .STK-MED ONE Stop: 09/04/18 09:47 Non-Formulary Medication (Total Parenteral Nutrition, Central) 0 ml IV ASDIRECTED NAHED Stop: 09/12/18 13:31 Non-Formulary Medication (Total Parenteral Nutrition, Central) 0 ml IV ASDIRECTED [facility] Stop: 09/13/18 13:00 Ondansetron HCl (Zofran Odt) 4 mg PO Q6H PRN PRN Reason: Nausea able to take PO Ondansetron HCl (Zofran) 4 mg IV Q6H PRN PRN Reason: Nausea/Vomiting Ondansetron HCl (Zofran) Confirm Administered Dose 4 mg .ROUTE .STK-MED ONE Stop: 09/03/18 14:41 Ondansetron HCl (Zofran) Confirm Administered Dose 4 mg .ROUTE .STK-MED ONE Stop: 09/04/18 09:47 Pantoprazole Sodium (Protonix Iv) 40 mg IV Q12H [facility] Last Admin: 09/03/18 16:07 Dose: 40 mg Piperacillin Sod/Tazobactam Sod (Zosyn) 10.125 gm .XX ASDIRECTED [facility] Stop: 09/04/18 15:00 Last Admin: 09/04/18 14:04 Dose: 10.125 gm Propofol (Diprivan 20 Ml) Confirm Administered Dose 200 mg .ROUTE .STK-MED ONE Stop: 09/03/18 14:41 Propofol (Diprivan 20 Ml) Confirm Administered Dose 200 mg .ROUTE .STK-MED ONE Stop: 09/04/18 09:47 Propofol (Diprivan 20 Ml) Confirm Administered Dose 200 mg .ROUTE .STK-MED ONE Stop: 09/06/18 07:01 Propofol (Diprivan 20 Ml) Confirm Administered Dose 200 mg .ROUTE .STK-MED ONE Stop: 09/19/18 14:22 Rocuronium Rogers (Zemuron) Confirm Administered Dose 50 mg .ROUTE .STK-MED ONE Stop: 09/03/18 14:41 Rocuronium Rogers (Zemuron) Confirm Administered Dose 50 mg .ROUTE .STK-MED ONE Stop: 09/04/18 09:47 Rocuronium Rogers (Zemuron) Confirm Administered Dose 50 mg .ROUTE .STK-MED ONE Stop: 09/20/18 07:50 Succinylcholine Chloride (Quelicin) Confirm Administered Dose 200 mg .ROUTE .STK -MED ONE Stop: 09/03/18 14:41 Succinylcholine Chloride (Quelicin) Confirm Administered Dose 200 mg .ROUTE .STK -MED ONE Stop: 09/04/18 09:47 Succinylcholine Chloride (Quelicin) Confirm Administered Dose 200 mg .ROUTE .STK -MED ONE Stop: 09/06/18 07:01 - Exam Quality Assessment: Supplemental Oxygen (ventilator), Central Line/PICC, Urine Catheter, DVT Prophylaxis General: Alert, Cooperative, Mild Distress Lungs: Clear to Auscultation, Normal Respiratory Effort Cardiovascular: Regular Rate, Regular Rhythm, No Murmurs GI/Abdominal Exam: Soft, Non-Tender, No Organomegaly, No Distention Extremities: Non-Tender, No Pedal Edema - Problem List Review Problem List Initiated/Reviewed/Updated: Yes - Assessment Assessment:: - Plan Plan:: ASSESSMENT AND PLAN Acute respiratory failure with hypoxia and hypercapnia - status post placement of tracheostomy 09/20, stable since then, currently requiring moderate ventilatory support -continue daily furosemide -Up to chair 4 times daily -Physical therapy -Continue fluconazole -Mechanical ventilation with tracheostomy -treat anxiety as indicated -Daily chest x-rays Perforated sigmoid colon with sepsis - Initial surgical resection on 09/03 and Second Look laparotomy on 09/04. Sepsis has resolved. Cultures grew out Klebsiella, Escherichia coli and anaerobic bacteria. stable from this standpoint and she has completed adequate anabiotic for this infection. Malnourished with essentially no oral intake in the last 2 weeks. -Pain control as indicated -TPN Hypertension - no longer has NG. blood pressure has been stable. -Metoprolol 25 mg by mouth twice a day -PRN meds if SBP >175 Anemia of critical illness - hemoglobin now stable with no evidence for bleeding. -Transfuse if less than 7 since she is currently hemodynamically stable and oxygenating well Acute kidney injury - renal function back to normal and stable. She does have an elevated BUN out of proportion to her creatinine but this is slowly trending down. -Management as above -Repeat labs in the morning Mixed delirium - She remains lethargic with recent sedation but sedation will be off now that she has a tracheostomy. -Symptomatically management and treatment of the above conditions Maintenance issues - - DVT prophylaxis - mechanical - GI prophylaxis - PPI - Nutrition - nothing by mouth - Rubin catheter - placed for strict intake and output monitoring and a critical patient Disposition - I would anticipate discharge to an LTAC for ventilator weaning
[2018-09-22] MEDS: Heparin Sodium 5,000 UNITS in Sodium Chloride 0.9% 500 ML IV SCH ×2 (12:58→14:59)
[2018-09-22] MEDS: Potassium Phosphates 22.5 MMOLE in Sodium Chloride 0.9% 250 ML IV SCH ×2 (15:40→17:50)
[2018-09-22] MEDS: CALCIUM IV SCH ×4 (16:14)
[2018-09-22] MEDS: [UNRECOGNIZED DRUG - OTHER] IV SCH ×4 (16:14)
[2018-09-22] MEDS: MVI IV SCH ×4 (16:14)
[2018-09-22] MEDS: LYTES IV SCH ×4 (16:14)
[2018-09-22] MEDS: VITAMIN K IV SCH ×4 (16:14)
[2018-09-22] MEDS: Fluconazole/Normal Saline 400 MG in Premix Bag 1 BAG IV SCH (20:02)
[2018-09-22] MEDS: Pantoprazole 40 MG Vial IV SCH (22:21)
[2018-09-23] MEDS: LORazepam 2 MG/ML SDV IVPUSH PRN ×3 (00:01→07:29)
[2018-09-23] MEDS: HYDROmorphone 0.5 MG/0.5 ML Syringe IVPUSH PRN ×3 (00:20→23:51)
[2018-09-23] MEDS ORDERED: Furosemide 40 MG/4 ML VIAL ONE (06:18)
[2018-09-23] MEDS ORDERED: Furosemide 40 MG/4 ML VIAL IVPUSH ONE ×2 (06:20→18:00)
--- NOTE | 2018-09-23 06:45 | CRLCR ---
INDICATION: Increase shortness of breath. TECHNIQUE: AP portable upright chest. COMPARISON: September 20, 2018. FINDINGS: Tracheostomy tube. The previous identified endotracheal tube has been removed. Interval removal of the enteric tube. Stable right-sided central venous access catheter with its tip in the mid superior vena cava. No pneumothorax. Small bilateral effusions similar to the prior study left minimally greater than the right. Overall heart size is within normal limits. Interstitial edema right lung base greater than left progressed compared to the prior study. IMPRESSION: 1. Mild congestive heart failure/fluid overload. There is more interstitial edema in the lower lobes compared to the prior study. 2. Interval extubation. Tracheostomy tube. Stable right sided central venous access catheter. Dictated by Haile Welch MD @ Sep 23 2018 6:41AM Signed by Dr. Haile Welch @ Sep 23 2018 6:43AM
[2018-09-23] MEDS: Albuterol/Ipratropium 3.0-0.5 MG/3 ML Neb Soln NEB SCH ×4 (07:10→21:13)
--- NOTE | 2018-09-23 08:31 | PCM.PN ---
- General Info Date of Service: 09/23/18 Functional Status: Reports: Pain Controlled - Review of Systems Systems Review Comment:: Tina Muniz is a 77 year old female who is on postoperative day #20 from the original exploratory laparotomy surgery. She has been experiencing an increase of anxiety over the night. CVP has climbed to 15-16. She appears as if she is not getting enough ventilation. She is normothermic and wbc count has stayed relatively the same and is 6.3 today. Magnesium is 1.7, BNP is 5768 and alkaline phosphatase is 427. Incision site appears to be healing well. Vital signs show tachycardia. She is unable to provide symptoms or a review of systems due to her tracheostomy. - Patient Data Vitals - Most Recent: Last Vital Signs Temp 36.4 C 09/23/18 05:32 Pulse 105 H 09/23/18 07:49 Resp 30 H 09/23/18 07:49 BP 143/69 H 09/23/18 07:49 Pulse Ox 94 L 09/23/18 07:49 Weight - Most Recent: 74.843 kg I&O - Last 24 Hours: Intake & Output 09/22/18 09/23/18 09/23/18 22:59 06:59 14:59 Intake Total 1721 1050 Output Total 1325 500 Balance 396 550 Lab Results Last 24 Hours: Laboratory Results - last 24 hr 09/21/18 09/23/18 09/23/18 Range/Units 06:48 04:00 04:32 WBC 6.3 (4.5-11.0) K/uL RBC 3.52 (3.30-5.50) M/uL Hgb 10.9 L (12.0-15.0) g/dL Hct 34.5 L (36.0-48.0) % MCV 98 (80-98) fL MCH 31 (27-31) pg MCHC 32 (32-36) % Plt Count 285 (150-400) K/uL Neut % (Auto) 71 H (36-66) % Lymph % (Auto) 5 L (24-44) % Boyle % (Auto) 13 H (2-6) % Eos % (Auto) 9 H (2-4) % Baso % (Auto) 1 (0-1) % Puncture Site ABG pH (7.350-7.450) ABG pCO2 (35.0-42.0) mmHg ABG pO2 (75.0-100.0) mmHg ABG HCO3 (22.0-26.0) mmol/L ABG Total CO2 (21.0-25.0) mmol/L ABG O2 Saturation (95.0-98.0) % ABG O2 Content (15.0-23.0) %vol ABG Base Excess mm/L ABG Hemoglobin (12.0-16.0) g/dL ABG Oxyhemoglobin % ABG Carboxyhemoglobin (0.0-1.6) % ABG Methemoglobin % Woody Test O2 Delivery Device Oxygen Flow Rate L Sodium 142 (140-148) mmol/L Potassium 3.8 (3.6-5.2) mmol/L Chloride 106 (100-108) mmol/L Carbon Dioxide 32 (21-32) mmol/L Anion Gap 4.1 L (5.0-14.0) mmol/L BUN 44 H (7-18) mg/dL Creatinine 0.8 (0.6-1.0) mg/dL Est Cr Clr Drug Dosing 44.61 mL/min Estimated GFR (MDRD) > 60 (>60) Glucose 132 H (74-106) mg/dL Calcium 9.3 (8.5-10.1) mg/dL Magnesium 1.7 L (1.8-2.4) mg/dL Total Bilirubin 0.8 (0.2-1.0) mg/dL AST 113 H (15-37) U/L ALT 194 H (12-78) U/L Alkaline Phosphatase 427 H (46-116) U/L NT-Pro-B Natriuret Pep 5768 H (5-450) pg/mL Total Protein 6.2 L (6.4-8.2) g/dL Albumin 2.0 L (3.4-5.0) g/dL Globulin 4.2 H (2.3-3.5) g/dL Albumin/Globulin Ratio 0.5 L (1.2-2.2) Blood Type O POSITIVE Gel Antibody Screen Negative Crossmatch See Detail 09/23/18 Range/Units 04:38 WBC (4.5-11.0) K/uL RBC (3.30-5.50) M/uL Hgb (12.0-15.0) g/dL Hct (36.0-48.0) % MCV (80-98) fL MCH (27-31) pg MCHC (32-36) % Plt Count (150-400) K/uL Neut % (Auto) (36-66) % Lymph % (Auto) (24-44) % Boyle % (Auto) (2-6) % Eos % (Auto) (2-4) % Baso % (Auto) (0-1) % Puncture Site Rt radial ABG pH 7.469 H (7.350-7.450) ABG pCO2 40.9 (35.0-42.0) mmHg ABG pO2 73.2 L (75.0-100.0) mmHg ABG HCO3 29.3 H (22.0-26.0) mmol/L ABG Total CO2 26.4 H (21.0-25.0) mmol/L ABG O2 Saturation 95.0 (95.0-98.0) % ABG O2 Content 15.1 (15.0-23.0) %vol ABG Base Excess 5.5 mm/L ABG Hemoglobin 11.4 L (12.0-16.0) g/dL ABG Oxyhemoglobin 93.8 % ABG Carboxyhemoglobin 0.8 (0.0-1.6) % ABG Methemoglobin 0.5 % Woody Test Pass O2 Delivery Device Ventilator Oxygen Flow Rate L Sodium (140-148) mmol/L Potassium (3.6-5.2) mmol/L Chloride (100-108) mmol/L Carbon Dioxide (21-32) mmol/L Anion Gap (5.0-14.0) mmol/L BUN (7-18) mg/dL Creatinine (0.6-1.0) mg/dL Est Cr Clr Drug Dosing mL/min Estimated GFR (MDRD) (>60) Glucose (74-106) mg/dL Calcium (8.5-10.1) mg/dL Magnesium (1.8-2.4) mg/dL Total Bilirubin (0.2-1.0) mg/dL AST (15-37) U/L ALT (12-78) U/L Alkaline Phosphatase (46-116) U/L NT-Pro-B Natriuret Pep (5-450) pg/mL Total Protein (6.4-8.2) g/dL Albumin (3.4-5.0) g/dL Globulin (2.3-3.5) g/dL Albumin/Globulin Ratio (1.2-2.2) Blood Type Gel Antibody Screen Crossmatch Med Orders - Current: Current Medications Albuterol (Proventil Neb Soln) 2.5 mg NEB Q4H PRN PRN Reason: Dyspnea Albuterol/Ipratropium (Duoneb 3.0-0.5 Mg/3 Ml) 3 ml NEB QIDRT [facility] Last Admin: 09/23/18 07:10 Dose: 3 ml Citalopram Hydrobromide (Celexa) 20 mg PO DAILY [facility] Last Admin: 09/22/18 08:27 Dose: 20 mg Dimethicone/Zinc Oxide (Rash Relief-Zinc Oxide [place]) 0 gm TOP ASDIRECTED PRN PRN Reason: Inflammation Last Admin: 09/21/18 15:28 Dose: 2 spray Furosemide (Lasix) 40 mg IV ONETIME ONE Stop: 09/23/18 14:31 Hydralazine HCl (Apresoline) 5 mg IVPUSH Q4H PRN PRN Reason: Hypertension Last Admin: 09/19/18 13:41 Dose: 5 mg Hydromorphone HCl (Dilaudid) 0.5 mg IVPUSH Q2H PRN PRN Reason: Pain Last Admin: 09/23/18 00:20 Dose: 0.5 mg Hydroxyzine HCl (Vistaril) 50 mg IM Q4H PRN PRN Reason: Pain Heparin Sodium (Porcine) 5,000 (units/ Sodium Chloride) 501 mls @ 5 mls/hr IV ASDIRECTED [facility] Last Admin: 09/22/18 14:59 Dose: 5 mls/hr Sodium Chloride (Normal Saline) 1,000 mls @ 0 mls/hr IV ASDIRECTED [facility] Last Admin: 09/19/18 05:15 Dose: 12.5 mls/hr Lactated Ringer's (Ringers, Lactated) 1,000 mls @ 25 mls/hr IV ASDIRECTED [facility] Last Admin: 09/18/18 21:11 Dose: 25 mls/hr Fluconazole/Sodium Chloride (400 mg/ Premix) 200 mls @ 100 mls/hr IV Q24H [facility] Last Admin: 09/22/18 20:02 Dose: 100 mls/hr Multivitamins/Minerals 10 ml/Chromium/Copper/Manganese/Seleni/Zn 1 ml/ Amino Ac/ Electrol/Dextrose/Calcium 2,011 mls @ 62 mls/hr IV .BY DURATION [facility] Last Admin: 09/22/18 16:14 Dose: 62 mls/hr Amino Ac/Electrol/Dextrose/Calcium (Clinimix E 20) 2,000 mls @ 62 mls/hr IV .BY DURATION [facility] Magnesium Sulfate 2 gm/ Premix 50 mls @ 25 mls/hr IV Q6H [facility] Stop: 09/25/18 05:59 Ketoconazole (Nizoral 2% Crm) 0 gm TOP TID [facility] Last Admin: 09/22/18 21:18 Dose: 1 applic Lorazepam (Ativan) 0.5 mg IVPUSH Q1H PRN PRN Reason: Anxiety Last Admin: 09/23/18 07:29 Dose: 0.5 mg Metoprolol Tartrate (Lopressor) 2.5 mg IVPUSH Q4H PRN PRN Reason: Hypertension Last Admin: 09/19/18 11:44 Dose: 2.5 mg Metoprolol Tartrate (Lopressor) 25 mg PO Q12H [facility] Last Admin: 09/22/18 20:44 Dose: 25 mg Pantoprazole Sodium (Protonix Iv) 40 mg IV Q24H [facility] Last Admin: 09/22/18 22:21 Dose: 40 mg Discontinued Medications Acetaminophen (Tylenol) 650 mg PO Q4H PRN PRN Reason: Pain (Mild 1-3)/fever Acetaminophen (Tylenol) 650 mg RECTAL Q4H PRN PRN Reason: Mild pain/fever Acetylcysteine (Mucomyst 20%) 200 mg NEB QIDRT [facility] Last Admin: 09/20/18 07:00 Dose: 200 mg Albuterol (Proventil Neb Soln) 2.5 mg NEB Q4H PRN PRN Reason: Shortness Of Breath/wheezing Albuterol/Ipratropium (Duoneb 3.0-0.5 Mg/3 Ml) 3 ml INH PREPRO ONE Stop: 09/03/18 17:01 Last Admin: 09/03/18 16:25 Dose: 3 ml Albuterol/Ipratropium (Duoneb 3.0-0.5 Mg/3 Ml) 3 ml NEB QID [facility] Last Admin: 09/13/18 21:11 Dose: 3 ml Aztreonam (Azactam) Confirm Administered Dose 1 gm .ROUTE .STK-MED ONE Stop: 09/03/18 21:44 Last Admin: 09/03/18 22:15 Dose: Not Given Benazepril HCl (Lotensin) 40 mg PO ONETIME ONE Stop: 09/03/18 10:41 Last Admin: 09/03/18 11:00 Dose: 40 mg Benazepril HCl (Lotensin) 40 mg NGTUBE DAILY [facility] Last Admin: 09/20/18 09:55 Dose: Not Given Bupivacaine HCl (Marcaine 0.5%) Confirm Administered Dose 50 ml .ROUTE .STK-MED ONE Stop: 09/07/18 06:48 Last Admin: 09/07/18 10:53 Dose: 18 ml Bupivacaine HCl (Marcaine 0.5%) Confirm Administered Dose 50 ml .ROUTE .STK-MED ONE Stop: 09/11/18 09:07 Last Admin: 09/11/18 10:49 Dose: 2 ml Ropivacaine 22 ml/Dexamethasone 8 mg/Epinephrine HCl 0.4 mg/ Sodium Chloride 55.6 ml 0 ml NERVRT ASDIRECTED [facility] Ropivacaine 22 ml/Dexamethasone 8 mg/Epinephrine HCl 0.4 mg/ Sodium Chloride 55.6 ml 0 ml NERVRT ASDIRECTED [facility] Last Admin: 09/04/18 14:03 Dose: 80 syringe Ropivacaine 22 ml/Dexamethasone 8 mg/Epinephrine HCl 0.4 mg/ Sodium Chloride 55.6 ml 0 ml NERVRT ASDIRECTED [facility] Last Admin: 09/07/18 11:07 Dose: 80 syringe Dexamethasone (Dexamethasone) Confirm Administered Dose 4 mg .ROUTE .STK-MED ONE Stop: 09/03/18 14:41 Dexamethasone (Dexamethasone) Confirm Administered Dose 4 mg .ROUTE .STK-MED ONE Stop: 09/04/18 09:47 Fentanyl (Sublimaze) 25 mcg IVPUSH ONETIME ONE Stop: 09/03/18 13:57 Last Admin: 09/03/18 14:16 Dose: 25 mcg Fentanyl (Sublimaze) 25 mcg IVPUSH Q2H PRN PRN Reason: Pain (severe 7-10) Fentanyl (Sublimaze) Confirm Administered Dose 250 mcg .ROUTE .STK-MED ONE Stop: 09/03/18 14:41 Fentanyl (Sublimaze) Confirm Administered Dose 250 mcg .ROUTE .STK-MED ONE Stop: 09/04/18 09:46 Fentanyl (Sublimaze) Confirm Administered Dose 250 mcg .ROUTE .STK-MED ONE Stop: 09/04/18 13:57 Fentanyl (Sublimaze) Confirm Administered Dose 100 mcg .ROUTE .STK-MED ONE Stop: 09/11/18 10:36 Fentanyl (Sublimaze) Confirm Administered Dose 250 mcg .ROUTE .STK-MED ONE Stop: 09/20/18 07:50 Furosemide (Lasix) 20 mg IVPUSH ONETIME ONE Stop: 09/04/18 15:10 Last Admin: 09/04/18 15:18 Dose: 20 mg Furosemide (Lasix) 40 mg IV ONETIME ONE Stop: 09/06/18 08:16 Last Admin: 09/06/18 08:26 Dose: 40 mg Furosemide (Lasix) 20 mg IV Q12H [facility] Stop: 09/07/18 20:01 Last Admin: 09/07/18 20:10 Dose: 20 mg Furosemide (Lasix) 20 mg IVPUSH Q12H [facility] Stop: 09/08/18 19:01 Last Admin: 09/08/18 19:50 Dose: 20 mg Furosemide (Lasix) 20 mg IVPUSH ONETIME ONE Stop: 09/09/18 07:01 Last Admin: 09/09/18 08:14 Dose: 20 mg Furosemide (Lasix) 20 mg IVPUSH ONETIME ONE Stop: 09/09/18 11:01 Last Admin: 09/09/18 12:38 Dose: 20 mg Furosemide (Lasix) 20 mg IVPUSH ONETIME ONE Stop: 09/09/18 20:01 Furosemide (Lasix) 20 mg IV Q8H [facility] Stop: 09/11/18 00:31 Last Admin: 09/10/18 23:50 Dose: 20 mg Furosemide (Lasix) 20 mg IV Q8H [facility] Stop: 09/12/18 00:01 Last Admin: 09/11/18 23:34 Dose: 20 mg Furosemide (Lasix) 20 mg IVPUSH Q8H [facility] Stop: 09/13/18 02:31 Last Admin: 09/13/18 02:39 Dose: 20 mg Furosemide (Lasix) 20 mg IVPUSH Q8H [facility] Stop: 09/14/18 02:31 Last Admin: 09/14/18 02:29 Dose: 20 mg Furosemide (Lasix) 40 mg IVPUSH ONETIME ONE Stop: 09/14/18 10:01 Last Admin: 09/14/18 13:28 Dose: 40 mg Furosemide (Lasix) 20 mg IVPUSH BID [facility] Furosemide (Lasix) 20 mg IVPUSH ONETIME ONE Stop: 09/15/18 06:34 Last Admin: 09/15/18 06:48 Dose: 20 mg Furosemide (Lasix) 40 mg IVPUSH Q8H [facility] Stop: 09/15/18 20:31 Last Admin: 09/15/18 20:39 Dose: 40 mg Furosemide (Lasix) 40 mg IV BID [facility] Stop: 09/16/18 21:01 Last Admin: 09/16/18 21:19 Dose: 40 mg Furosemide (Lasix) 40 mg IV Q12H [facility] Stop: 09/17/18 21:01 Last Admin: 09/17/18 21:11 Dose: 40 mg Furosemide (Lasix) 40 mg IV Q8H [facility] Stop: 09/18/18 16:01 Last Admin: 09/18/18 16:00 Dose: 40 mg Furosemide (Lasix) 40 mg IV Q12H [facility] Stop: 09/19/18 20:01 Last Admin: 09/19/18 19:23 Dose: 40 mg Furosemide (Lasix) 20 mg IVPUSH Q12H [facility] Stop: 09/20/18 22:01 Last Admin: 09/20/18 21:52 Dose: 20 mg Furosemide (Lasix) 20 mg IVPUSH Q8H [facility] Stop: 09/21/18 20:01 Last Admin: 09/21/18 19:37 Dose: 20 mg Furosemide (Lasix) 20 mg IVPUSH Q6H [facility] Stop: 09/22/18 14:01 Last Admin: 09/22/18 13:54 Dose: 20 mg Furosemide (Lasix) Confirm Administered Dose 40 mg .ROUTE .STK-MED ONE Stop: 09/23/18 06:19 Last Admin: 09/23/18 07:04 Dose: Not Given Furosemide (Lasix) 40 mg IVPUSH ONETIME ONE Stop: 09/23/18 06:21 Last Admin: 09/23/18 06:15 Dose: 40 mg Gentamicin Sulfate (Gentamicin) 1 mg IV .Pharmacy to Dose [facility] Stop: 09/08/18 14:31 Glycopyrrolate (Robinul) Confirm Administered Dose 1 mg .ROUTE .STK-MED ONE Stop: 09/03/18 14:41 Glycopyrrolate (Robinul) Confirm Administered Dose 1 mg .ROUTE .STK-MED ONE Stop: 09/04/18 09:47 Heparin Sodium (Porcine) (Heparin Sodium) Confirm Administered Dose 5,000 units .ROUTE .STK-MED ONE Stop: 09/03/18 18:32 Heparin Sodium (Porcine) (Heparin Lock Flush 100 Units/Ml) Confirm Administered Dose 500 units .ROUTE .STK-MED ONE Stop: 09/04/18 13:14 Heparin Sodium (Porcine) (Heparin Lock Flush 100 Units/Ml) Confirm Administered Dose 1,000 units .ROUTE .STK-MED ONE Stop: 09/11/18 09:07 Last Admin: 09/11/18 10:58 Dose: 1,000 units Heparin Sodium (Porcine) (Heparin Lock Flush 100 Units/Ml) Confirm Administered Dose 500 units .ROUTE .STK-MED ONE Stop: 09/11/18 10:44 Last Admin: 09/11/18 10:58 Dose: 500 units Hydromorphone HCl (Dilaudid) 0.5 mg IVPUSH ONETIME ONE Stop: 09/03/18 10:48 Last Admin: 09/03/18 11:00 Dose: 0.5 mg Hydromorphone HCl (Dilaudid) 0.5 mg IVPUSH ONETIME ONE Stop: 09/03/18 11:22 Last Admin: 09/03/18 11:25 Dose: 0.5 mg Hydromorphone HCl (Dilaudid) 0.5 mg IVPUSH ONETIME ONE Stop: 09/03/18 12:10 Last Admin: 09/03/18 12:12 Dose: 0.5 mg Hydromorphone HCl (Dilaudid) 0.5 mg IVPUSH ONETIME ONE Stop: 09/03/18 12:40 Last Admin: 09/03/18 12:44 Dose: 0.5 mg Hydromorphone HCl (Dilaudid) 1 mg IVPUSH ONETIME ONE Stop: 09/03/18 12:57 Last Admin: 09/03/18 13:00 Dose: 1 mg Hydromorphone HCl (Dilaudid Insole Presser 15 Mg In Ns 30 Ml) 0 mg IV ASDIRECTED PRN; Protocol PRN Reason: OBSTETRICS SCRUB NURSE 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 Last Admin: 09/09/18 05:52 Dose: 15 mg Sodium Chloride (Normal Saline) 1,000 mls @ 1,000 mls/hr IV .BOLUS ONE Stop: 09/03/18 12:17 Last Admin: 09/03/18 11:25 Dose: 1,000 mls/hr Piperacillin/Tazobactam/ (Dextrose 4.5 gm/ Premix) 100 mls @ 200 mls/hr IV ONETIME ONE Stop: 09/03/18 13:29 Last Admin: 09/03/18 13:04 Dose: 200 mls/hr Sodium Chloride (Normal Saline) 1,000 mls @ 500 mls/hr IV ASDIRECTED [facility] Last Admin: 09/03/18 13:00 Dose: 500 mls/hr Lactated Ringer's (Ringers, Lactated) 1,000 mls @ 125 mls/hr IV ASDIRECTED [facility] Last Admin: 09/03/18 16:07 Dose: 125 mls/hr Aztreonam 2 gm/ Sodium (Chloride) 100 mls @ 200 mls/hr IV NOW ONE Stop: 09/03/18 15:29 Last Admin: 09/03/18 14:56 Dose: 200 mls/hr Meropenem 500 mg/ Sodium (Chloride) 50 mls @ 100 mls/hr IV ONCALL ONE Stop: 09/03/18 17:29 Last Admin: 09/03/18 16:25 Dose: 100 mls/hr Piperacillin/Tazobactam/ (Dextrose 3.375 gm/ Premix) 50 mls @ 100 mls/hr IV Q6H [facility] Last Admin: 09/03/18 22:15 Dose: Not Given Sodium Chloride (Normal Saline) Confirm Administered Dose 500 mls @ as directed .ROUTE .STK-MED ONE Stop: 09/03/18 18:33 Aztreonam/Dextrose 1 gm/ (Premix) 50 mls @ 100 mls/hr IV Q8HR [facility] Meropenem 500 mg/ Sodium (Chloride) 50 mls @ 100 mls/hr IV Q8H [facility] Last Admin: 09/10/18 05:17 Dose: 100 mls/hr Sodium Chloride (Normal Saline) Confirm Administered Dose 50 mls @ as directed .ROUTE .[facility]-MED ONE Stop: 09/03/18 22:01 Last Admin: 09/03/18 22:21 Dose: Not Given Aztreonam/Dextrose 1 gm/ (Premix) 50 mls @ 100 mls/hr IV Q8H [facility] Last Admin: 09/04/18 07:30 Dose: Not Given Dextrose/Lactated Ringer's (Dextrose 5%-Lactated Ringers) 1,000 mls @ 100 mls/ hr IV ASDIRECTED PRN PRN Reason: Hypotension Dextrose/Lactated Ringer's (Dextrose 5%-Lactated Ringers) 1,000 mls @ 100 mls/ hr IV ASDIRECTED [facility] Last Admin: 09/05/18 02:13 Dose: 100 mls/hr Lactated Ringer's (Ringers, Lactated) 1,000 mls @ 100 mls/hr IV ASDIRECTED [facility] Last Admin: 09/04/18 04:20 Dose: 100 mls/hr Lactated Ringer's (Ringers, Lactated) 500 mls @ 500 mls/hr IV .BOLUS [facility] Last Admin: 09/04/18 01:10 Dose: 500 mls/hr Lactated Ringer's (Ringers, Lactated) 500 mls @ 500 mls/hr IV .BOLUS [facility] Last Admin: 09/04/18 03:13 Dose: 500 mls/hr Propofol (Diprivan 100 Ml) 100 mls @ 1.361 mls/hr IV TITRATE [facility]; Protocol Last Titration: 09/04/18 07:52 Dose: 14 mcg/kg/min, 3.81 mls/hr Propofol (Diprivan 100 Ml) Confirm Administered Dose 100 mls @ as directed .ROUTE .STK-MED ONE Stop: 09/04/18 03:45 Last Admin: 09/04/18 03:59 Dose: Not Given Lactated Ringer's (Ringers, Lactated) 500 mls @ 999 mls/hr IV .BOLUS [facility] Last Admin: 09/04/18 06:10 Dose: 999 mls/hr Aztreonam/Dextrose 1 gm/ (Premix) 50 mls @ 100 mls/hr IV Q8H [facility] Last Admin: 09/07/18 08:15 Dose: 100 mls/hr Lactated Ringer's (Ringers, Lactated) 500 mls @ 500 mls/hr IV ASDIRECTED [facility] Last Admin: 09/04/18 21:04 Dose: 500 mls/hr Lactated Ringer's (Ringers, Lactated) Confirm Administered Dose 1,000 mls @ as directed .ROUTE .[facility] ONE Stop: 09/04/18 13:11 Lactated Ringer's (Ringers, Lactated) Confirm Administered Dose 1,000 mls @ as directed .ROUTE .[facility] ONE Stop: 09/04/18 13:11 Sodium Chloride (Normal Saline) Confirm Administered Dose 10 mls @ as directed .ROUTE .[facility] ONE Stop: 09/04/18 13:15 Magnesium Sulfate 2 gm/ Premix 50 mls @ 25 mls/hr IV Q6H [facility] Stop: 09/06/18 11:59 Last Admin: 09/06/18 10:17 Dose: 25 mls/hr Lactated Ringer's (Ringers, Lactated) 500 mls @ [facility]: 09/04/18 17:46 Heparin Sodium (Porcine) 5,000 (units/ Sodium Chloride) 501 mls @ 5 [facility]ls[facility] Last Admin: 09/22/18 12:58 Dose: 5 mls/hr Lactated Ringer's (Ringers, Lactated) 500 mls @ 500 mls/hr IV ONETIME ONE Stop: 09/04/18 19:29 Last Admin: 09/04/18 18:37 Dose: 500 mls/hr Lactated Ringer's (Ringers, Lactated) 500 mls @ 1,000 mls/hr IV ONETIME ONE Stop: 09/04/18 23:30 Last Admin: 09/04/18 23:18 Dose: 1,000 mls/hr Lactated Ringer's (Ringers, Lactated) 500 mls @ 1,000 mls/hr IV ONETIME ONE Stop: 09/05/18 01:44 Last Admin: 09/05/18 01:15 Dose: 1,000 mls/hr Lactated Ringer's (Ringers, Lactated) 1,000 mls @ 150 [facility] Last Admin: 09/05/18 02:13 Dose: 150 mls/hr Lactated Ringer's (Ringers, Lactated) 500 mls @ 1,000 mls/hr IV ONETIME ONE Stop: 09/05/18 03:38 Last Admin: 09/05/18 03:15 Dose: 1,000 mls/hr Multivitamins/Minerals 10 ml/Chromium/Copper/Manganese/Seleni/Zn 1 ml/ Amino Ac/ Electrol/Dextrose/Calcium 2,011 mls @ 82 mls/hr IV .BY DURATION [facility] Stop: 09/05/18 13:25 Last Admin: 09/05/18 13:32 Dose: Not Given Amino Ac/Electrol/Dextrose/Calcium (Clinimix E 5/15) 2,000 mls @ 82 mls/hr IV .BY DURATION [facility] Stop: 09/05/18 13:25 Vancomycin HCl 1 gm/ Sodium (Chloride) 250 mls @ 167 mls/hr IV Q24H [facility] Last Admin: 09/05/18 12:34 Dose: 167 mls/hr Sodium Chloride (Normal Saline) 1,000 mls @ 50 mls/hr IV ASDIRECTED [facility] Last Admin: 09/05/18 12:51 Dose: 50 mls/hr Multivitamins/Minerals 10 ml/Chromium/Copper/Manganese/Seleni/Zn 1 ml/ Amino Ac/ Electrol/Dextrose/Calcium 2,011 mls @ 82 mls/hr IV .BY DURATION [facility] Stop: 09/08/18 13:20 Last Admin: 09/07/18 15:09 Dose: 82 mls/hr Amino Ac/Electrol/Dextrose/Calcium (Clinimix E 5/15) 2,000 mls @ 82 mls/hr IV .BY DURATION [facility] Stop: 09/08/18 13:20 Vancomycin HCl 1 gm/ Sodium (Chloride) 250 mls @ 167 mls/hr IV Q24H [facility] Last Admin: 09/06/18 12:00 Dose: 167 mls/hr Sodium Chloride (Normal Saline) 500 mls @ 500 mls/hr IV ASDIRECTED ONE Stop: 09/05/18 16:29 Last Admin: 09/05/18 15:40 Dose: 500 mls/hr Sodium Chloride (Normal Saline) 1,000 mls @ 100 mls/hr IV ASDIRECTED [facility] Last Admin: 09/07/18 07:31 Dose: 100 mls/hr Propofol (Diprivan 100 Ml) 100 mls @ 1.361 mls/hr IV TITRATE [facility]; Protocol Last Titration: 09/17/18 03:30 Dose: 25 mcg/kg/min, 6.804 mls/hr Potassium Phosphate 20 mmole/ (Sodium Chloride) 106.6667 mls @ 35 mls/hr IV Q3H [facility] Stop: 09/07/18 17:29 Last Admin: 09/07/18 15:01 Dose: 35 mls/hr Albumin Human (Albumin 25%) 25 gm in 100 mls @ 25 mls/hr IV DAILY [facility] Stop: 09/09/18 12:59 Last Admin: 09/09/18 08:25 Dose: 25 mls/hr Albumin Human (Albumin 25%) 25 gm in 100 mls @ 25 mls/hr IV Q24H [facility] Stop: 09/09/18 17:59 Last Admin: 09/09/18 14:32 Dose: 25 mls/hr Aztreonam 1 gm/ Sodium (Chloride) 50 mls @ 100 mls/hr IV Q8H [facility] Last Admin: 09/08/18 09:41 Dose: 100 mls/hr Vancomycin HCl 1 gm/ Sodium (Chloride) 250 mls @ 167 mls/hr IV Q18H [facility] Last Admin: 09/09/18 18:42 Dose: 167 mls/hr Sodium Chloride (Normal Saline) 1,000 mls @ 999 mls/hr IV .BOLUS ONE Stop: 09/07/18 17:39 Last Admin: 09/07/18 17:26 Dose: 999 mls/hr Potassium Acetate 40 meq/ (Sodium Chloride) 120 mls @ 30 mls/hr IV ONETIME ONE Stop: 09/08/18 13:59 Last Admin: 09/08/18 09:44 Dose: 30 mls/hr Multivitamins/Minerals 10 ml/Chromium/Copper/Manganese/Seleni/Zn 1 ml/ Amino Ac/ Electrol/Dextrose/Calcium 1,011 mls @ 62 mls/hr IV .BY DURATION [facility] Stop: 09/20/18 17:00 Last Admin: 09/19/18 09:10 Dose: 62 mls/hr Amino Ac/Electrol/Dextrose/Calcium (Clinimix E /20) 1,000 mls @ 62 mls/hr IV .BY DURATION [facility] Stop: 09/20/18 17:00 Last Admin: 09/20/18 01:21 Dose: 62 mls/hr Sodium Chloride (Normal Saline) 100 mls @ 3 mls/sec IV ASDIRECTED [facility] Stop: 09/08/18 15:00 Last Admin: 09/08/18 14:17 Dose: 3 mls/sec Azithromycin 500 mg/ Sodium (Chloride) 250 mls @ 250 mls/hr IV Q24H [facility] Last Admin: 09/09/18 15:27 Dose: 250 mls/hr Gentamicin Sulfate 228 mg/ (Sodium Chloride) 105.7 mls @ 100 mls/hr IV ONETIME ONE Stop: 09/08/18 17:03 Last Admin: 09/08/18 16:19 Dose: 100 mls/hr Potassium Phosphate 15 mmole/ (Sodium Chloride) 105 mls @ 55 mls/hr IV Q2H [facility] Stop: 09/09/18 12:55 Last Admin: 09/09/18 15:27 Dose: 55 mls/hr Gentamicin Sulfate 228 mg/ (Sodium Chloride) 105.7 mls @ 100 mls/hr IV Q36H [facility] Last Admin: 09/10/18 03:55 Dose: 100 mls/hr Sodium Chloride (Normal Saline) 500 mls @ 999 mls/hr IV .BOLUS ONE Stop: 09/09/18 16:34 Last Admin: 09/09/18 16:18 Dose: 999 mls/hr Sodium Chloride (Normal Saline) 500 mls @ 999 mls/hr IV .BOLUS ONE Stop: 09/09/18 17:35 Last Admin: 09/09/18 17:18 Dose: 999 mls/hr Sodium Chloride (Normal Saline) 1,000 mls @ 125 mls/hr IV ASDIRECTED [facility] Last Admin: 09/10/18 01:41 Dose: 125 mls/hr Lactated Ringer's (Ringers, Lactated) 1,000 mls @ 125 mls/hr IV ASDIRECTED [facility] Last Admin: 09/11/18 01:06 Dose: 125 mls/hr Meropenem 500 mg/ Sodium (Chloride) 25 mls @ 50 mls/hr IV Q8H [facility] Last Admin: 09/20/18 13:05 Dose: 50 mls/hr Gentamicin Sulfate 228 mg/ (Sodium Chloride) 55.7 mls @ 55 mls/hr IV Q36H [facility] Last Admin: 09/14/18 16:49 Dose: 55 mls/hr Azithromycin 500 mg/ Dextrose/ (Water) 250 mls @ 250 mls/hr IV Q24H [facility] Stop: 09/17/18 17:00 Last Admin: 09/14/18 15:42 Dose: 250 mls/hr Vancomycin HCl 1 gm/ Dextrose/ (Water) 250 mls @ 167 mls/hr IV Q24H [facility] Last Admin: 09/13/18 17:48 Dose: 167 mls/hr Fluconazole/Sodium Chloride (200 mg/ Premix) 100 mls @ 100 mls/hr IV Q24H [facility] Last Admin: 09/15/18 20:38 Dose: 100 mls/hr Magnesium Sulfate 2 gm/ Premix 50 mls @ 25 mls/hr IV Q6H [facility] Stop: 09/13/18 05:59 Last Admin: 09/13/18 03:31 Dose: 25 mls/hr Potassium Phosphate 22.5 mmole (/ Dextrose/Water) 107.5 mls @ 27 mls/hr IV Q4H [facility] Stop: 09/11/18 17:29 Last Admin: 09/11/18 14:45 Dose: 27 mls/hr Lactated Ringer's (Ringers, Lactated) 1,000 mls @ 75 mls/hr IV ASDIRECTED [facility] Last Admin: 09/13/18 22:27 Dose: 75 mls/hr Sodium Chloride (Normal Saline) Confirm Administered Dose 10 mls @ as directed .ROUTE .STK-MED ONE Stop: 09/11/18 10:41 Potassium Chloride 40 meq/ (Premix) 100 mls @ 25 mls/hr IV ONETIME ONE Stop: 09/13/18 12:59 Last Admin: 09/13/18 09:31 Dose: 25 mls/hr Potassium Chloride 40 meq/ (Premix) 100 mls @ 25 mls/hr IV ONETIME ONE Stop: 09/13/18 17:59 Last Admin: 09/13/18 13:11 Dose: 25 mls/hr Albumin Human (Albumin 25%) 25 gm in 100 mls @ 25 mls/hr IV Q24H [facility] Stop: 09/16/18 11:59 Last Admin: 09/16/18 09:02 Dose: 25 mls/hr Albumin Human (Albumin 25%) 25 gm in 100 mls @ 25 mls/hr IV Q24H [facility] Stop: 09/16/18 15:59 Last Admin: 09/16/18 12:33 Dose: 25 mls/hr Potassium Chloride 40 meq/ (Premix) 100 mls @ 25 mls/hr IV ONETIME ONE Stop: 09/16/18 11:59 Last Admin: 09/16/18 08:02 Dose: 25 mls/hr Potassium Chloride 20 meq/ (Premix) 100 mls @ 50 mls/hr IV ONETIME ONE Stop: 09/16/18 13:59 Last Admin: 09/16/18 11:36 Dose: 50 mls/hr Potassium Chloride 40 meq/ (Premix) 100 mls @ 25 mls/hr IV ONETIME ONE Stop: 09/17/18 11:59 Last Admin: 09/17/18 08:43 Dose: 25 mls/hr Magnesium Sulfate 2 gm/ Premix 50 mls @ 25 mls/hr IV Q6H [facility] Stop: 09/19/18 05:59 Last Admin: 09/19/18 03:26 Dose: 25 mls/hr Potassium Chloride 40 meq/ (Premix) 100 mls @ 25 mls/hr IV ONETIME ONE Stop: 09/18/18 12:59 Last Admin: 09/18/18 08:34 Dose: 25 mls/hr Potassium Chloride 40 meq/ (Premix) 100 mls @ 25 mls/hr IV ONETIME ONE Stop: 09/19/18 11:59 Last Admin: 09/19/18 08:19 Dose: 25 mls/hr Potassium Chloride 20 meq/ (Premix) 100 mls @ 50 mls/hr IV ONETIME ONE Stop: 09/19/18 13:59 Last Admin: 09/19/18 11:05 Dose: 50 mls/hr Propofol (Diprivan 100 Ml) 100 mls @ 2.354 mls/hr IV TITRATE NAHED; Protocol Last Admin: 09/20/18 05:35 Dose: 15 mcg/kg/min, 7.062 mls/hr Multivitamins/Minerals 10 ml/Chromium/Copper/Manganese/Seleni/Zn 1 ml/ Amino Ac/ Electrol/Dextrose/Calcium 2,011 mls @ 100 mls/hr IV .BY DURATION [facility] Amino Ac/Electrol/Dextrose/Calcium (Clinimix E 5/20) 2,000 mls @ 100 mls/hr IV .BY DURATION [facility] Multivitamins/Minerals 10 ml/Chromium/Copper/Manganese/Seleni/Zn 1 ml/ Amino Ac/ Electrol/Dextrose/Calcium 2,011 mls @ 62 mls/hr IV .BY DURATION [facility] Stop: 09/21/18 16:50 Last Admin: 09/20/18 17:31 Dose: 62 mls/hr Amino Ac/Electrol/Dextrose/Calcium (Clinimix E 5/20) 2,000 mls @ 62 mls/hr IV .BY DURATION [facility] Stop: 09/21/18 16:50 Potassium Chloride 40 meq/ (Premix) 100 mls @ 25 mls/hr IV ONETIME ONE Stop: 09/21/18 12:59 Last Admin: 09/21/18 09:38 Dose: 25 mls/hr Potassium Phosphate 22.5 mmole (/ Sodium Chloride) 257.5 mls @ 86 mls/hr IV Q3H NAHED Stop: 09/22/18 20:59 Last Admin: 09/22/18 17:50 Dose: 86 mls/hr Iopamidol (Isovue-300 (61%)) 100 ml IV . DIRECTED PRN PRN Reason: RADIOLOGY EXAM Stop: 09/09/18 11:03 Last Admin: 09/08/18 14:16 Dose: 100 ml Lidocaine HCl (Xylocaine 2% Viscous) Confirm Administered Dose 15 ml .ROUTE .STK -MED ONE Stop: 09/12/18 11:15 Lidocaine HCl (Xylocaine 4% Top Soln) Confirm Administered Dose 50 ml .ROUTE .STK-MED ONE Stop: 09/12/18 11:15 Lidocaine HCl (Xylocaine 4% Top Soln) Confirm Administered Dose 50 ml .ROUTE .STK-MED ONE Stop: 09/14/18 06:57 Last Admin: 09/14/18 07:20 Dose: 20 ml Lidocaine HCl (Xylocaine-Mpf 1%) 5 ml INJECT ONETIME ONE Stop: 09/17/18 06:31 Last Admin: 09/17/18 06:52 Dose: 5 ml Lidocaine HCl (Xylocaine 2% Viscous) Confirm Administered Dose 15 ml .ROUTE .STK -MED ONE Stop: 09/20/18 06:37 Lidocaine HCl (Xylocaine 4% Top Soln) Confirm Administered Dose 50 ml .ROUTE .STK-MED ONE Stop: 09/20/18 06:38 Last Admin: 09/20/18 09:05 Dose: 50 ml Lidocaine/Epinephrine (Xylocaine 1% With Epinephrine 1:100,000) Confirm Administered Dose 50 ml .ROUTE .STK-MED ONE Stop: 09/07/18 06:48 Last Admin: 09/07/18 10:54 Dose: 18 ml Lidocaine/Epinephrine (Xylocaine 1% With Epinephrine 1:100,000) Confirm Administered Dose 50 ml .ROUTE .STK-MED ONE Stop: 09/11/18 09:07 Last Admin: 09/11/18 10:49 Dose: 2 ml Lidocaine/Epinephrine (Xylocaine 1% With Epinephrine 1:100,000) Confirm Administered Dose 50 ml .ROUTE .STK-MED ONE Stop: 09/20/18 06:38 Lorazepam (Ativan) 0.5 mg IVPUSH Q4H PRN PRN Reason: Nausea/Vomiting Lorazepam (Ativan) 0.5 mg IVPUSH Q3H PRN PRN Reason: AGITATION Last Admin: 09/18/18 13:47 Dose: 0.5 mg Meropenem (Merrem) Confirm Administered Dose 1,000 mg .ROUTE .STK-MED ONE Stop: 09/03/18 17:54 Last Admin: 09/03/18 18:32 Dose: 3,500 mg Meropenem (Merrem) Confirm Administered Dose 1,000 mg .ROUTE .STK-MED ONE Stop: 09/03/18 18:04 Meropenem (Merrem) Confirm Administered Dose 2,000 mg .ROUTE .STK-MED ONE Stop: 09/03/18 18:18 Meropenem (Merrem) Confirm Administered Dose 500 mg .ROUTE .STK-MED ONE Stop: 09/07/18 06:48 Last Admin: 09/07/18 10:53 Dose: 500 mg Metoprolol Tartrate (Lopressor) 25 mg PO ONETIME ONE Stop: 09/03/18 10:41 Last Admin: 09/03/18 11:00 Dose: 25 mg Metoprolol Tartrate (Lopressor) 5 mg IVPUSH Q6H NAHED Last Admin: 09/08/18 09:25 Dose: 5 mg Metoprolol Tartrate (Lopressor) 2.5 mg IVPUSH Q6H [facility] Last Admin: 09/10/18 03:55 Dose: 2.5 mg Metoprolol Tartrate (Lopressor) Confirm Administered Dose 5 mg .ROUTE .STK-MED ONE Stop: 09/08/18 21:53 Last Admin: 09/08/18 22:19 Dose: Not Given Metoprolol Tartrate (Lopressor) 2.5 mg IVPUSH Q4H [facility] Last Admin: 09/11/18 21:25 Dose: Not Given Morphine Sulfate (Morphine) 2 mg IVPUSH Q1H PRN PRN Reason: Anxiety Last Admin: 09/19/18 16:04 Dose: 2 mg Naloxone HCl (Narcan) 0.1 mg IV ASDIRECTED PRN PRN Reason: decreased respiratory rate Neostigmine Methylsulfate (Neostigmine) Confirm Administered Dose 5 mg .ROUTE .STK-MED ONE Stop: 09/03/18 14:41 Neostigmine Methylsulfate (Neostigmine) Confirm Administered Dose 5 mg .ROUTE .STK-MED ONE Stop: 09/04/18 09:47 Non-Formulary Medication (Total Parenteral Nutrition, Central) 0 ml IV ASDIRECTED [facility] Stop: 09/12/18 13:31 Non-Formulary Medication (Total Parenteral Nutrition, Central) 0 ml IV ASDIRECTED [facility] Stop: 09/13/18 13:00 Ondansetron HCl (Zofran Odt) 4 mg PO Q6H PRN PRN Reason: Nausea able to take PO Ondansetron HCl (Zofran) 4 mg IV Q6H PRN PRN Reason: Nausea/Vomiting Ondansetron HCl (Zofran) Confirm Administered Dose 4 mg .ROUTE .STK-MED ONE Stop: 09/03/18 14:41 Ondansetron HCl (Zofran) Confirm Administered Dose 4 mg .ROUTE .STK-MED ONE Stop: 09/04/18 09:47 Pantoprazole Sodium (Protonix Iv) 40 mg IV Q12H [facility] Last Admin: 09/03/18 16:07 Dose: 40 mg Piperacillin Sod/Tazobactam Sod (Zosyn) 10.125 gm .XX ASDIRECTED [facility] Stop: 09/04/18 15:00 Last Admin: 09/04/18 14:04 Dose: 10.125 gm Propofol (Diprivan 20 Ml) Confirm Administered Dose 200 mg .ROUTE .STK-MED ONE Stop: 09/03/18 14:41 Propofol (Diprivan 20 Ml) Confirm Administered Dose 200 mg .ROUTE .STK-MED ONE Stop: 09/04/18 09:47 Propofol (Diprivan 20 Ml) Confirm Administered Dose 200 mg .ROUTE .STK-MED ONE Stop: 09/06/18 07:01 Propofol (Diprivan 20 Ml) Confirm Administered Dose 200 mg .ROUTE .STK-MED ONE Stop: 09/19/18 14:22 Rocuronium [place] (Zemuron) Confirm Administered Dose 50 mg .ROUTE .STK-MED ONE Stop: 09/03/18 14:41 Rocuronium [place] (Zemuron) Confirm Administered Dose 50 mg .ROUTE .STK-MED ONE Stop: 09/04/18 09:47 Rocuronium [place] (Zemuron) Confirm Administered Dose 50 mg .ROUTE .STK-MED ONE Stop: 09/20/18 07:50 Succinylcholine Chloride (Quelicin) Confirm Administered Dose 200 mg .ROUTE .STK -MED ONE Stop: 09/03/18 14:41 Succinylcholine Chloride (Quelicin) Confirm Administered Dose 200 mg .ROUTE .STK -MED ONE Stop: 09/04/18 09:47 Succinylcholine Chloride (Quelicin) Confirm Administered Dose 200 mg .ROUTE .STK -MED ONE Stop: 09/06/18 07:01 - Exam General: Lethargic Lungs: Normal Respiratory Effort, Decreased Breath Sounds Cardiovascular: Regular Rhythm, No Murmurs, Tachycardia GI/Abdominal Exam: Soft, No Distention Skin: Warm, Other (Marked erythematous area of bilateral upper thighs and pelvis area) Wound/Incisions: Healing Well - Problem List Review Problem List Initiated/Reviewed/Updated: Yes - Assessment Assessment:: 1. 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 Exploratory laparotomy with a. sigmoid colon resection with end colotomy plus Rosa procedure b. drainage of pericolonic abscess plus diffuse peritoneal cavity washout c. small bowel resection Date of procedure: 09/03/2018, Surgeon Christiano Estrada MD 3.Indication of central venous access 4. Diffuse feculent perforation with second look laparotomy showing: a. pelvic right subphrenic with fluid collection b. segment small bowel with increasing necrosis adjacent mesentery 5. Insertion Left subclavian triple-lumen catheter 6. Second look laparotomy with: a. drainage peritoneal inflammatory fluid collection b. drainage right subphrenic inflammatory fluid collection d. plus small bowel resection 7. Date of procedure: 09/04/2018, Surgeon, Christiano Estrada MD 8. Hypoalbuminemia 9. Ventilator dependence: remains ventilator dependent 10. SP Bronchoscopy. Bony Olson MD on 09/12/2018 11. Large volume mucoid pulmonary secretions, cleaned by bronchoscopy; scant 12. Bronchial sputum culture: yeast isolated 13. Hypomagnesemia 14. Permanent ventilator dependence with: I. Placement of percutaneous 8 [place] tracheostomy tube. Date of surgery 09/20. Surgeon, Christiano Estrada MD 16. Hyperkalemia - Plan Plan:: 1. Continue current TPN content and rate 2. Administer Lasix 40 mg IV push now and repeat in 8 hours due to increasing CVP 3. Administer sips of full liquids as tolerated 4. AM labs: CBC, CMP, Mg, Phosphorous and BNP 5. Ventilator weaning as tolerated 6. May benefit from transfer to a [facility] intermedi[facility] critical care facility in the near future 7. Complete a portable chest x-ray this AM due to increasing of shortness of breath 8. Administer Magnesium Sulfate 2 gm IV piggyback every 6 hour for 48 hours
[2018-09-23] MEDS: Magnesium Sulfate/Water 2 GM in Premix Bag 1 BAG IV SCH ×3 (09:16→21:14)
[2018-09-23] MEDS: Metoprolol Tartrate 25 MG Tab PO SCH ×2 (09:23→21:13)
[2018-09-23] MEDS: Ketoconazole 2% Crm 30 GM Tube TOP SCH ×3 (09:24→21:13)
[2018-09-23] MEDS: Citalopram 20 MG Tab PO SCH (09:24)
--- NOTE | 2018-09-23 10:08 | PCM.PN ---
- General Info Date of Service: 09/23/18 Subjective Update: Ms. Muniz developed respiratory compromise during the night, this morning ventilator was changed back to assist control status. Since then she has stabilized with decrease in respiratory rate. Chest x-ray this morning suggest pulmonary edema and she is received furosemide 40 mg IV. Because of tracheostomy she is unable to provide meaningful information concerning symptoms or review of systems. - Patient Data Vitals - Most Recent: Last Vital Signs Temp 97.5 F 09/23/18 05:32 Pulse 93 09/23/18 09:51 Resp 26 H 09/23/18 09:51 BP 164/82 H 09/23/18 09:51 Pulse Ox 98 09/23/18 09:51 Weight - Most Recent: 165 lb I&O - Last 24 Hours: Intake & Output 09/22/18 09/23/18 09/23/18 22:59 06:59 14:59 Intake Total 1721 1050 Output Total 1325 500 800 Balance 396 550 -800 Lab Results Last 24 Hours: Laboratory Results - last 24 hr 09/21/18 09/23/18 09/23/18 Range/Units 06:48 04:00 04:32 WBC 6.3 (4.5-11.0) K/uL RBC 3.52 (3.30-5.50) M/uL Hgb 10.9 L (12.0-15.0) g/dL Hct 34.5 L (36.0-48.0) % MCV 98 (80-98) fL MCH 31 (27-31) pg MCHC 32 (32-36) % Plt Count 285 (150-400) K/uL Neut % (Auto) 71 H (36-66) % Lymph % (Auto) 5 L (24-44) % Dickenson % (Auto) 13 H (2-6) % Eos % (Auto) 9 H (2-4) % Baso % (Auto) 1 (0-1) % Puncture Site ABG pH (7.350-7.450) ABG pCO2 (35.0-42.0) mmHg ABG pO2 (75.0-100.0) mmHg ABG HCO3 (22.0-26.0) mmol/L ABG Total CO2 (21.0-25.0) mmol/L ABG O2 Saturation (95.0-98.0) % ABG O2 Content (15.0-23.0) %vol ABG Base Excess mm/L ABG Hemoglobin (12.0-16.0) g/dL ABG Oxyhemoglobin % ABG Carboxyhemoglobin (0.0-1.6) % ABG Methemoglobin % Woody Test O2 Delivery Device Oxygen Flow Rate L Sodium 142 (140-148) mmol/L Potassium 3.8 (3.6-5.2) mmol/L Chloride 106 (100-108) mmol/L Carbon Dioxide 32 (21-32) mmol/L Anion Gap 4.1 L (5.0-14.0) mmol/L BUN 44 H (7-18) mg/dL Creatinine 0.8 (0.6-1.0) mg/dL Est Cr Clr Drug Dosing 44.61 mL/min Estimated GFR (MDRD) > 60 (>60) Glucose 132 H (74-106) mg/dL Calcium 9.3 (8.5-10.1) mg/dL Magnesium 1.7 L (1.8-2.4) mg/dL Total Bilirubin 0.8 (0.2-1.0) mg/dL AST 113 H (15-37) U/L ALT 194 H (12-78) U/L Alkaline Phosphatase 427 H (46-116) U/L NT-Pro-B Natriuret Pep 5768 H (5-450) pg/mL Total Protein 6.2 L (6.4-8.2) g/dL Albumin 2.0 L (3.4-5.0) g/dL Globulin 4.2 H (2.3-3.5) g/dL Albumin/Globulin Ratio 0.5 L (1.2-2.2) Blood Type O POSITIVE Gel Antibody Screen Negative Crossmatch See Detail 09/23/18 Range/Units 04:38 WBC (4.5-11.0) K/uL RBC (3.30-5.50) M/uL Hgb (12.0-15.0) g/dL Hct (36.0-48.0) % MCV (80-98) fL MCH (27-31) pg MCHC (32-36) % Plt Count (150-400) K/uL Neut % (Auto) (36-66) % Lymph % (Auto) (24-44) % Dickenson % (Auto) (2-6) % Eos % (Auto) (2-4) % Baso % (Auto) (0-1) % Puncture Site Rt radial ABG pH 7.469 H (7.350-7.450) ABG pCO2 40.9 (35.0-42.0) mmHg ABG pO2 73.2 L (75.0-100.0) mmHg ABG HCO3 29.3 H (22.0-26.0) mmol/L ABG Total CO2 26.4 H (21.0-25.0) mmol/L ABG O2 Saturation 95.0 (95.0-98.0) % ABG O2 Content 15.1 (15.0-23.0) %vol ABG Base Excess 5.5 mm/L ABG Hemoglobin 11.4 L (12.0-16.0) g/dL ABG Oxyhemoglobin 93.8 % ABG Carboxyhemoglobin 0.8 (0.0-1.6) % ABG Methemoglobin 0.5 % Woody Test Pass O2 Delivery Device Ventilator Oxygen Flow Rate L Sodium (140-148) mmol/L Potassium (3.6-5.2) mmol/L Chloride (100-108) mmol/L Carbon Dioxide (21-32) mmol/L Anion Gap (5.0-14.0) mmol/L BUN (7-18) mg/dL Creatinine (0.6-1.0) mg/dL Est Cr Clr Drug Dosing mL/min Estimated GFR (MDRD) (>60) Glucose (74-106) mg/dL Calcium (8.5-10.1) mg/dL Magnesium (1.8-2.4) mg/dL Total Bilirubin (0.2-1.0) mg/dL AST (15-37) U/L ALT (12-78) U/L Alkaline Phosphatase (46-116) U/L NT-Pro-B Natriuret Pep (5-450) pg/mL Total Protein (6.4-8.2) g/dL Albumin (3.4-5.0) g/dL Globulin (2.3-3.5) g/dL Albumin/Globulin Ratio (1.2-2.2) Blood Type Gel Antibody Screen Crossmatch Med Orders - Current: Current Medications Albuterol (Proventil Neb Soln) 2.5 mg NEB Q4H PRN PRN Reason: Dyspnea Albuterol/Ipratropium (Duoneb 3.0-0.5 Mg/3 Ml) 3 ml NEB QIDRT NAHED Last Admin: 09/23/18 07:10 Dose: 3 ml Citalopram Hydrobromide (Celexa) 20 mg PO DAILY [facility] Last Admin: 09/23/18 09:24 Dose: 20 mg Dimethicone/Zinc Oxide (Rash Relief-Zinc Oxide Callao) 0 gm TOP ASDIRECTED PRN PRN Reason: Inflammation Last Admin: 09/21/18 15:28 Dose: 2 spray Furosemide (Lasix) 40 mg IV ONETIME ONE Stop: 09/23/18 14:31 Furosemide (Lasix) 40 mg IVPUSH NOW ONE Stop: 09/23/18 18:01 Hydralazine HCl (Apresoline) 5 mg IVPUSH Q4H PRN PRN Reason: Hypertension Last Admin: 09/19/18 13:41 Dose: 5 mg Hydromorphone HCl (Dilaudid) 0.5 mg IVPUSH Q2H PRN PRN Reason: Pain Last Admin: 09/23/18 00:20 Dose: 0.5 mg Hydroxyzine HCl (Vistaril) 50 mg IM Q4H PRN PRN Reason: Pain Heparin Sodium (Porcine) 5,000 (units/ Sodium Chloride) 501 mls @ 5 mls/hr IV ASDIRECTED [facility] Last Admin: 09/22/18 14:59 Dose: 5 mls/hr Sodium Chloride (Normal Saline) 1,000 mls @ 0 mls/hr IV ASDIRECTED [facility] Last Admin: 09/19/18 05:15 Dose: 12.5 mls/hr Lactated Ringer's (Ringers, Lactated) 1,000 mls @ 25 mls/hr IV ASDIRECTED [facility] Last Admin: 09/18/18 21:11 Dose: 25 mls/hr Fluconazole/Sodium Chloride (400 mg/ Premix) 200 mls @ 100 mls/hr IV Q24H [facility] Last Admin: 09/22/18 20:02 Dose: 100 mls/hr Multivitamins/Minerals 10 ml/Chromium/Copper/Manganese/Seleni/Zn 1 ml/ Amino Ac/ Electrol/Dextrose/Calcium 2,011 mls @ 62 mls/hr IV .BY DURATION [facility] Last Admin: 09/22/18 16:14 Dose: 62 mls/hr Amino Ac/Electrol/Dextrose/Calcium (Clinimix E 20) 2,000 mls @ 62 mls/hr IV .BY DURATION [facility] Magnesium Sulfate 2 gm/ Premix 50 mls @ 25 mls/hr IV Q6H [facility] Stop: 09/25/18 05:59 Last Admin: 09/23/18 09:16 Dose: 25 mls/hr Ketoconazole (Nizoral 2% Crm) 0 gm TOP TID [facility] Last Admin: 09/23/18 09:24 Dose: 1 applic Lorazepam (Ativan) 0.5 mg IVPUSH Q1H PRN PRN Reason: Anxiety Last Admin: 09/23/18 07:29 Dose: 0.5 mg Metoprolol Tartrate (Lopressor) 2.5 mg IVPUSH Q4H PRN PRN Reason: Hypertension Last Admin: 09/19/18 11:44 Dose: 2.5 mg Metoprolol Tartrate (Lopressor) 25 mg PO Q12H [facility] Last Admin: 09/23/18 09:23 Dose: 25 mg Pantoprazole Sodium (Protonix Iv) 40 mg IV Q24H [facility] Last Admin: 09/22/18 22:21 Dose: 40 mg Discontinued Medications Acetaminophen (Tylenol) 650 mg PO Q4H PRN PRN Reason: Pain (Mild 1-3)/fever Acetaminophen (Tylenol) 650 mg RECTAL Q4H PRN PRN Reason: Mild pain/fever Acetylcysteine (Mucomyst 20%) 200 mg NEB QIDRT [facility] Last Admin: 09/20/18 07:00 Dose: 200 mg Albuterol (Proventil Neb Soln) 2.5 mg NEB Q4H PRN PRN Reason: Shortness Of Breath/wheezing Albuterol/Ipratropium (Duoneb 3.0-0.5 Mg/3 Ml) 3 ml INH PREPRO ONE Stop: 09/03/18 17:01 Last Admin: 09/03/18 16:25 Dose: 3 ml Albuterol/Ipratropium (Duoneb 3.0-0.5 Mg/3 Ml) 3 ml NEB QID [facility] Last Admin: 09/13/18 21:11 Dose: 3 ml Aztreonam (Azactam) Confirm Administered Dose 1 gm .ROUTE .STK-MED ONE Stop: 09/03/18 21:44 Last Admin: 09/03/18 22:15 Dose: Not Given Benazepril HCl (Lotensin) 40 mg PO ONETIME ONE Stop: 09/03/18 10:41 Last Admin: 09/03/18 11:00 Dose: 40 mg Benazepril HCl (Lotensin) 40 mg NGTUBE DAILY [facility] Last Admin: 09/20/18 09:55 Dose: Not Given Bupivacaine HCl (Marcaine 0.5%) Confirm Administered Dose 50 ml .ROUTE .STK-MED ONE Stop: 09/07/18 06:48 Last Admin: 09/07/18 10:53 Dose: 18 ml Bupivacaine HCl (Marcaine 0.5%) Confirm Administered Dose 50 ml .ROUTE .STK-MED ONE Stop: 09/11/18 09:07 Last Admin: 09/11/18 10:49 Dose: 2 ml Ropivacaine 22 ml/Dexamethasone 8 mg/Epinephrine HCl 0.4 mg/ Sodium Chloride 55.6 ml 0 ml NERVRT ASDIRECTED [facility] Ropivacaine 22 ml/Dexamethasone 8 mg/Epinephrine HCl 0.4 mg/ Sodium Chloride 55.6 ml 0 ml NERVRT ASDIRECTED [facility] Last Admin: 09/04/18 14:03 Dose: 80 syringe Ropivacaine 22 ml/Dexamethasone 8 mg/Epinephrine HCl 0.4 mg/ Sodium Chloride 55.6 ml 0 ml NERVRT ASDIRECTED [facility] Last Admin: 09/07/18 11:07 Dose: 80 syringe Dexamethasone (Dexamethasone) Confirm Administered Dose 4 mg .ROUTE .STK-MED ONE Stop: 09/03/18 14:41 Dexamethasone (Dexamethasone) Confirm Administered Dose 4 mg .ROUTE .STK-MED ONE Stop: 09/04/18 09:47 Fentanyl (Sublimaze) 25 mcg IVPUSH ONETIME ONE Stop: 09/03/18 13:57 Last Admin: 09/03/18 14:16 Dose: 25 mcg Fentanyl (Sublimaze) 25 mcg IVPUSH Q2H PRN PRN Reason: Pain (severe 7-10) Fentanyl (Sublimaze) Confirm Administered Dose 250 mcg .ROUTE .STK-MED ONE Stop: 09/03/18 14:41 Fentanyl (Sublimaze) Confirm Administered Dose 250 mcg .ROUTE .STK-MED ONE Stop: 09/04/18 09:46 Fentanyl (Sublimaze) Confirm Administered Dose 250 mcg .ROUTE .STK-MED ONE Stop: 09/04/18 13:57 Fentanyl (Sublimaze) Confirm Administered Dose 100 mcg .ROUTE .STK-MED ONE Stop: 09/11/18 10:36 Fentanyl (Sublimaze) Confirm Administered Dose 250 mcg .ROUTE .STK-MED ONE Stop: 09/20/18 07:50 Furosemide (Lasix) 20 mg IVPUSH ONETIME ONE Stop: 09/04/18 15:10 Last Admin: 09/04/18 15:18 Dose: 20 mg Furosemide (Lasix) 40 mg IV ONETIME ONE Stop: 09/06/18 08:16 Last Admin: 09/06/18 08:26 Dose: 40 mg Furosemide (Lasix) 20 mg IV Q12H [facility] Stop: 09/07/18 20:01 Last Admin: 09/07/18 20:10 Dose: 20 mg Furosemide (Lasix) 20 mg IVPUSH Q12H [facility] Stop: 09/08/18 19:01 Last Admin: 09/08/18 19:50 Dose: 20 mg Furosemide (Lasix) 20 mg IVPUSH ONETIME ONE Stop: 09/09/18 07:01 Last Admin: 09/09/18 08:14 Dose: 20 mg Furosemide (Lasix) 20 mg IVPUSH ONETIME ONE Stop: 09/09/18 11:01 Last Admin: 09/09/18 12:38 Dose: 20 mg Furosemide (Lasix) 20 mg IVPUSH ONETIME ONE Stop: 09/09/18 20:01 Furosemide (Lasix) 20 mg IV Q8H [facility]HED Stop: 09/11/18 00:31 Last Admin: 09/10/18 23:50 Dose: 20 mg Furosemide (Lasix) 20 mg IV Q8H [facility] Stop: 09/12/18 00:01 Last Admin: 09/11/18 23:34 Dose: 20 mg Furosemide (Lasix) 20 mg IVPUSH Q8H [facility] Stop: 09/13/18 02:31 Last Admin: 09/13/18 02:39 Dose: 20 mg Furosemide (Lasix) 20 mg IVPUSH Q8H [facility] Stop: 09/14/18 02:31 Last Admin: 09/14/18 02:29 Dose: 20 mg Furosemide (Lasix) 40 mg IVPUSH ONETIME ONE Stop: 09/14/18 10:01 Last Admin: 09/14/18 13:28 Dose: 40 mg Furosemide (Lasix) 20 mg IVPUSH BID [facility] Furosemide (Lasix) 20 mg IVPUSH ONETIME ONE Stop: 09/15/18 06:34 Last Admin: 09/15/18 06:48 Dose: 20 mg Furosemide (Lasix) 40 mg IVPUSH Q8H [facility] Stop: 09/15/18 20:31 Last Admin: 09/15/18 20:39 Dose: 40 mg Furosemide (Lasix) 40 mg IV BID NAHED Stop: 09/16/18 21:01 Last Admin: 09/16/18 21:19 Dose: 40 mg Furosemide (Lasix) 40 mg IV Q12H [facility] Stop: 09/17/18 21:01 Last Admin: 09/17/18 21:11 Dose: 40 mg Furosemide (Lasix) 40 mg IV Q8H [facility] Stop: 09/18/18 16:01 Last Admin: 09/18/18 16:00 Dose: 40 mg Furosemide (Lasix) 40 mg IV Q12H [facility] Stop: 09/19/18 20:01 Last Admin: 09/19/18 19:23 Dose: 40 mg Furosemide (Lasix) 20 mg IVPUSH Q12H [facility] Stop: 09/20/18 22:01 Last Admin: 09/20/18 21:52 Dose: 20 mg Furosemide (Lasix) 20 mg IVPUSH Q8H [facility] Stop: 09/21/18 20:01 Last Admin: 09/21/18 19:37 Dose: 20 mg Furosemide (Lasix) 20 mg IVPUSH Q6H [facility] Stop: 09/22/18 14:01 Last Admin: 09/22/18 13:54 Dose: 20 mg Furosemide (Lasix) Confirm Administered Dose 40 mg .ROUTE .STK-MED ONE Stop: 09/23/18 06:19 Last Admin: 09/23/18 07:04 Dose: Not Given Furosemide (Lasix) 40 mg IVPUSH ONETIME ONE Stop: 09/23/18 06:21 Last Admin: 09/23/18 06:15 Dose: 40 mg Gentamicin Sulfate (Gentamicin) 1 mg IV .Pharmacy to Dose [facility] Stop: 09/08/18 14:31 Glycopyrrolate (Robinul) Confirm Administered Dose 1 mg .ROUTE .STK-MED ONE Stop: 09/03/18 14:41 Glycopyrrolate (Robinul) Confirm Administered Dose 1 mg .ROUTE .STK-MED ONE Stop: 09/04/18 09:47 Heparin Sodium (Porcine) (Heparin Sodium) Confirm Administered Dose 5,000 units .ROUTE .STK-MED ONE Stop: 09/03/18 18:32 Heparin Sodium (Porcine) (Heparin Lock Flush 100 Units/Ml) Confirm Administered Dose 500 units .ROUTE .STK-MED ONE Stop: 09/04/18 13:14 Heparin Sodium (Porcine) (Heparin Lock Flush 100 Units/Ml) Confirm Administered Dose 1,000 units .ROUTE .STK-MED ONE Stop: 09/11/18 09:07 Last Admin: 09/11/18 10:58 Dose: 1,000 units Heparin Sodium (Porcine) (Heparin Lock Flush 100 Units/Ml) Confirm Administered Dose 500 units .ROUTE .STK-MED ONE Stop: 09/11/18 10:44 Last Admin: 09/11/18 10:58 Dose: 500 units Hydromorphone HCl (Dilaudid) 0.5 mg IVPUSH ONETIME ONE Stop: 09/03/18 10:48 Last Admin: 09/03/18 11:00 Dose: 0.5 mg Hydromorphone HCl (Dilaudid) 0.5 mg IVPUSH ONETIME ONE Stop: 09/03/18 11:22 Last Admin: 09/03/18 11:25 Dose: 0.5 mg Hydromorphone HCl (Dilaudid) 0.5 mg IVPUSH ONETIME ONE Stop: 09/03/18 12:10 Last Admin: 09/03/18 12:12 Dose: 0.5 mg Hydromorphone HCl (Dilaudid) 0.5 mg IVPUSH ONETIME ONE Stop: 09/03/18 12:40 Last Admin: 09/03/18 12:44 Dose: 0.5 mg Hydromorphone HCl (Dilaudid) 1 mg IVPUSH ONETIME ONE Stop: 09/03/18 12:57 Last Admin: 09/03/18 13:00 Dose: 1 mg Hydromorphone HCl (Dilaudid Stable Cleaner 15 Mg In Ns 30 Ml) 0 mg IV ASDIRECTED PRN; Protocol PRN Reason: 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 Last Admin: 09/09/18 05:52 Dose: 15 mg Sodium Chloride (Normal Saline) 1,000 mls @ 1,000 mls/hr IV .BOLUS ONE Stop: 09/03/18 12:17 Last Admin: 09/03/18 11:25 Dose: 1,000 mls/hr Piperacillin/Tazobactam/ (Dextrose 4.5 gm/ Premix) 100 mls @ 200 mls/hr IV ONETIME ONE Stop: 09/03/18 13:29 Last Admin: 09/03/18 13:04 Dose: 200 mls/hr Sodium Chloride (Normal Saline) 1,000 mls @ 500 mls/hr IV ASDIRECTED NAHED Last Admin: 09/03/18 13:00 Dose: 500 mls/hr Lactated Ringer's (Ringers, Lactated) 1,000 mls @ 125 mls/hr IV ASDIRECTED NAHED Last Admin: 09/03/18 16:07 Dose: 125 mls/hr Aztreonam 2 gm/ Sodium (Chloride) 100 mls @ 200 mls/hr IV NOW ONE Stop: 09/03/18 15:29 Last Admin: 09/03/18 14:56 Dose: 200 mls/hr Meropenem 500 mg/ Sodium (Chloride) 50 mls @ 100 mls/hr IV ONCALL ONE Stop: 09/03/18 17:29 Last Admin: 09/03/18 16:25 Dose: 100 mls/hr Piperacillin/Tazobactam/ (Dextrose 3.375 gm/ Premix) 50 mls @ 100 mls/hr IV Q6H [facility] Last Admin: 09/03/18 22:15 Dose: Not Given Sodium Chloride (Normal Saline) Confirm Administered Dose 500 mls @ as directed .ROUTE .STK-MED ONE Stop: 09/03/18 18:33 Aztreonam/Dextrose 1 gm/ (Premix) 50 mls @ 100 mls/hr IV Q8HR [facility] Meropenem 500 mg/ Sodium (Chloride) 50 mls @ 100 mls/hr IV Q8H [facility] Last Admin: 09/10/18 05:17 Dose: 100 mls/hr Sodium Chloride (Normal Saline) Confirm Administered Dose 50 mls @ as directed .ROUTE .STK-MED ONE Stop: 09/03/18 22:01 Last Admin: 09/03/18 22:21 Dose: Not Given Aztreonam/Dextrose 1 gm/ (Premix) 50 mls @ 100 mls/hr IV Q8H [facility] Last Admin: 09/04/18 07:30 Dose: Not Given Dextrose/Lactated Ringer's (Dextrose 5%-Lactated Ringers) 1,000 mls @ 100 mls/ hr IV ASDIRECTED PRN PRN Reason: Hypotension Dextrose/Lactated Ringer's (Dextrose 5%-Lactated Ringers) 1,000 mls @ 100 mls/ hr IV ASDIRECTED [facility] Last Admin: 09/05/18 02:13 Dose: 100 mls/hr Lactated Ringer's (Ringers, Lactated) 1,000 mls @ 100 mls/hr IV ASDIRECTED [facility] Last Admin: 09/04/18 04:20 Dose: 100 mls/hr Lactated Ringer's (Ringers, Lactated) 500 mls @ 500 mls/hr IV .BOLUS NAHED Last Admin: 09/04/18 01:10 Dose: 500 mls/hr Lactated Ringer's (Ringers, Lactated) 500 mls @ 500 mls/hr IV .BOLUS NAHED Last Admin: 09/04/18 03:13 Dose: 500 mls/hr Propofol (Diprivan 100 Ml) 100 mls @ 1.361 mls/hr IV TITRATE NAHED; Protocol Last Titration: 09/04/18 07:52 Dose: 14 mcg/kg/min, 3.81 mls/hr Propofol (Diprivan 100 Ml) Confirm Administered Dose 100 mls @ as directed .ROUTE .[facility]-MED ONE Stop: 09/04/18 03:45 Last Admin: 09/04/18 03:59 Dose: Not Given Lactated Ringer's (Ringers, Lactated) 500 mls @ 999 mls/hr IV .BOLUS NAHED Last Admin: 09/04/18 06:10 Dose: 999 mls/hr Aztreonam/Dextrose 1 gm/ (Premix) 50 mls @ 100 mls/hr IV Q8H [facility] Last Admin: 09/07/18 08:15 Dose: 100 mls/hr Lactated Ringer's (Ringers, Lactated) 500 mls @ [facility] Last Admin: 09/04/18 21:04 Dose: 500 mls/hr Lactated Ringer's (Ringers, Lactated) Confirm Administered Dose 1,000 mls @ as directed .ROUTE .[facility] ONE Stop: 09/04/18 13:11 Lactated Ringer's (Ringers, Lactated) Confirm Administered Dose 1,000 mls @ as directed .ROUTE .[facility] ONE Stop: 09/04/18 13:11 Sodium Chloride (Normal Saline) Confirm Administered Dose 10 mls @ as directed .ROUTE .[facility] ONE Stop: 09/04/18 13:15 Magnesium Sulfate 2 gm/ Premix 50 mls @ 25 mls/hr IV Q6H [facility] Stop: 09/06/18 11:59 Last Admin: 09/06/18 10:17 Dose: 25 mls/hr Lactated Ringer's (Ringers, Lactated) 500 mls @ 500 [facility]ls[facility] Stop: 09/04/18 17:46 Heparin Sodium (Porcine) 5,000 (units/ Sodium Chloride) 501 mls @ 5 mls/hr [facility] Last Admin: 09/22/18 12:58 Dose: 5 mls/hr Lactated Ringer's (Ringers, Lactated) 500 mls @ 500 mls/hr IV ONETIME ONE Stop: 09/04/18 19:29 Last Admin: 09/04/18 18:37 Dose: 500 mls/hr Lactated Ringer's (Ringers, Lactated) 500 mls @ 1,000 mls/hr IV ONETIME ONE Stop: 09/04/18 23:30 Last Admin: 09/04/18 23:18 Dose: 1,000 mls/hr Lactated Ringer's (Ringers, Lactated) 500 mls @ 1,000 mls/hr IV ONETIME ONE Stop: 09/05/18 01:44 Last Admin: 09/05/18 01:15 Dose: 1,000 mls/hr Lactated Ringer's (Ringers, Lactated) 1,000 mls @ 150 mls/hr IV [facility] Last Admin: 09/05/18 02:13 Dose: 150 mls/hr Lactated Ringer's (Ringers, Lactated) 500 mls @ 1,000 mls/hr IV ONETIME ONE Stop: 09/05/18 03:38 Last Admin: 09/05/18 03:15 Dose: 1,000 mls/hr Multivitamins/Minerals 10 ml/Chromium/Copper/Manganese/Seleni/Zn 1 ml/ Amino Ac/ Electrol/Dextrose/Calcium 2,011 mls @ 82 mls/hr IV .BY DURATION [facility] Stop: 09/05/18 13:25 Last Admin: 09/05/18 13:32 Dose: Not Given Amino Ac/Electrol/Dextrose/Calcium (Clinimix E 5/15) 2,000 mls @ 82 mls/hr IV .BY DURATION [facility] Stop: 09/05/18 13:25 Vancomycin HCl 1 gm/ Sodium (Chloride) 250 mls @ 167 mls/hr IV Q24H [facility] Last Admin: 09/05/18 12:34 Dose: 167 mls/hr Sodium Chloride (Normal Saline) 1,000 mls @ 50 mls/hr IV ASDIRECTED [facility] Last Admin: 09/05/18 12:51 Dose: 50 mls/hr Multivitamins/Minerals 10 ml/Chromium/Copper/Manganese/Seleni/Zn 1 ml/ Amino Ac/ Electrol/Dextrose/Calcium 2,011 mls @ 82 mls/hr IV .BY DURATION [facility] Stop: 09/08/18 13:20 Last Admin: 09/07/18 15:09 Dose: 82 mls/hr Amino Ac/Electrol/Dextrose/Calcium (Clinimix E 515) 2,000 mls @ 82 mls/hr IV .BY DURATION [facility] Stop: 09/08/18 13:20 Vancomycin HCl 1 gm/ Sodium (Chloride) 250 mls @ 167 mls/hr IV Q24H [facility] Last Admin: 09/06/18 12:00 Dose: 167 mls/hr Sodium Chloride (Normal Saline) 500 mls @ 500 mls/hr IV ASDIRECTED ONE Stop: 09/05/18 16:29 Last Admin: 09/05/18 15:40 Dose: 500 mls/hr Sodium Chloride (Normal Saline) 1,000 mls @ 100 mls/hr IV ASDIRECTED [facility] Last Admin: 09/07/18 07:31 Dose: 100 mls/hr Propofol (Diprivan 100 Ml) 100 mls @ 1.361 mls/hr IV TITRATE NAHED; Protocol Last Titration: 09/17/18 03:30 Dose: 25 mcg/kg/min, 6.804 mls/hr Potassium Phosphate 20 mmole/ (Sodium Chloride) 106.6667 mls @ 35 mls/hr IV Q3H NAHED Stop: 09/07/18 17:29 Last Admin: 09/07/18 15:01 Dose: 35 mls/hr Albumin Human (Albumin 25%) 25 gm in 100 mls @ 25 mls/hr IV DAILY NAHED Stop: 09/09/18 12:59 Last Admin: 09/09/18 08:25 Dose: 25 mls/hr Albumin Human (Albumin 25%) 25 gm in 100 mls @ 25 mls/hr IV Q24H [facility] Stop: 09/09/18 17:59 Last Admin: 09/09/18 14:32 Dose: 25 mls/hr Aztreonam 1 gm/ Sodium (Chloride) 50 mls @ 100 mls/hr IV Q8H [facility] Last Admin: 09/08/18 09:41 Dose: 100 mls/hr Vancomycin HCl 1 gm/ Sodium (Chloride) 250 mls @ 167 mls/hr IV Q18H [facility] Last Admin: 09/09/18 18:42 Dose: 167 mls/hr Sodium Chloride (Normal Saline) 1,000 mls @ 999 mls/hr IV .BOLUS ONE Stop: 09/07/18 17:39 Last Admin: 09/07/18 17:26 Dose: 999 mls/hr Potassium Acetate 40 meq/ (Sodium Chloride) 120 mls @ 30 mls/hr IV ONETIME ONE Stop: 09/08/18 13:59 Last Admin: 09/08/18 09:44 Dose: 30 mls/hr Multivitamins/Minerals 10 ml/Chromium/Copper/Manganese/Seleni/Zn 1 ml/ Amino Ac/ Electrol/Dextrose/Calcium 1,011 mls @ 62 mls/hr IV .BY DURATION [facility] Stop: 09/20/18 17:00 Last Admin: 09/19/18 09:10 Dose: 62 mls/hr Amino Ac/Electrol/Dextrose/Calcium (Clinimix E 5/20) 1,000 mls @ 62 mls/hr IV .BY DURATION [facility] Stop: 09/20/18 17:00 Last Admin: 09/20/18 01:21 Dose: 62 mls/hr Sodium Chloride (Normal Saline) 100 mls @ 3 mls/sec IV ASDIRECTED [facility] Stop: 09/08/18 15:00 Last Admin: 09/08/18 14:17 Dose: 3 mls/sec Azithromycin 500 mg/ Sodium (Chloride) 250 mls @ 250 mls/hr IV Q24H [facility] Last Admin: 09/09/18 15:27 Dose: 250 mls/hr Gentamicin Sulfate 228 mg/ (Sodium Chloride) 105.7 mls @ 100 mls/hr IV ONETIME ONE Stop: 09/08/18 17:03 Last Admin: 09/08/18 16:19 Dose: 100 mls/hr Potassium Phosphate 15 mmole/ (Sodium Chloride) 105 mls @ 55 mls/hr IV Q2H [facility] Stop: 09/09/18 12:55 Last Admin: 09/09/18 15:27 Dose: 55 mls/hr Gentamicin Sulfate 228 mg/ (Sodium Chloride) 105.7 mls @ 100 mls/hr IV Q36H [facility] Last Admin: 09/10/18 03:55 Dose: 100 mls/hr Sodium Chloride (Normal Saline) 500 mls @ 999 mls/hr IV .BOLUS ONE Stop: 09/09/18 16:34 Last Admin: 09/09/18 16:18 Dose: 999 mls/hr Sodium Chloride (Normal Saline) 500 mls @ 999 mls/hr IV .BOLUS ONE Stop: 09/09/18 17:35 Last Admin: 09/09/18 17:18 Dose: 999 mls/hr Sodium Chloride (Normal Saline) 1,000 mls @ 125 mls/hr IV ASDIRECTED [facility] Last Admin: 09/10/18 01:41 Dose: 125 mls/hr Lactated Ringer's (Ringers, Lactated) 1,000 mls @ 125 mls/hr IV ASDIRECTED [facility] Last Admin: 09/11/18 01:06 Dose: 125 mls/hr Meropenem 500 mg/ Sodium (Chloride) 25 mls @ 50 mls/hr IV Q8H [facility] Last Admin: 09/20/18 13:05 Dose: 50 mls/hr Gentamicin Sulfate 228 mg/ (Sodium Chloride) 55.7 mls @ 55 mls/hr IV Q36H [facility] Last Admin: 09/14/18 16:49 Dose: 55 mls/hr Azithromycin 500 mg/ Dextrose/ (Water) 250 mls @ 250 mls/hr IV Q24H [facility] Stop: 09/17/18 17:00 Last Admin: 09/14/18 15:42 Dose: 250 mls/hr Vancomycin HCl 1 gm/ Dextrose/ (Water) 250 mls @ 167 mls/hr IV Q24H [facility] Last Admin: 09/13/18 17:48 Dose: 167 mls/hr Fluconazole/Sodium Chloride (200 mg/ Premix) 100 mls @ 100 mls/hr IV Q24H [facility] Last Admin: 09/15/18 20:38 Dose: 100 mls/hr Magnesium Sulfate 2 gm/ Premix 50 mls @ 25 mls/hr IV Q6H [facility] Stop: 09/13/18 05:59 Last Admin: 09/13/18 03:31 Dose: 25 mls/hr Potassium Phosphate 22.5 mmole (/ Dextrose/Water) 107.5 mls @ 27 mls/hr IV Q4H [facility] Stop: 09/11/18 17:29 Last Admin: 09/11/18 14:45 Dose: 27 mls/hr Lactated Ringer's (Ringers, Lactated) 1,000 mls @ 75 mls/hr IV ASDIRECTED [facility] Last Admin: 09/13/18 22:27 Dose: 75 mls/hr Sodium Chloride (Normal Saline) Confirm Administered Dose 10 mls @ as directed .ROUTE .STK-MED ONE Stop: 09/11/18 10:41 Potassium Chloride 40 meq/ (Premix) 100 mls @ 25 mls/hr IV ONETIME ONE Stop: 09/13/18 12:59 Last Admin: 09/13/18 09:31 Dose: 25 mls/hr Potassium Chloride 40 meq/ (Premix) 100 mls @ 25 mls/hr IV ONETIME ONE Stop: 09/13/18 17:59 Last Admin: 09/13/18 13:11 Dose: 25 mls/hr Albumin Human (Albumin 25%) 25 gm in 100 mls @ 25 mls/hr IV Q24H [facility] Stop: 09/16/18 11:59 Last Admin: 09/16/18 09:02 Dose: 25 mls/hr Albumin Human (Albumin 25%) 25 gm in 100 mls @ 25 mls/hr IV Q24H [facility] Stop: 09/16/18 15:59 Last Admin: 09/16/18 12:33 Dose: 25 mls/hr Potassium Chloride 40 meq/ (Premix) 100 mls @ 25 mls/hr IV ONETIME ONE Stop: 09/16/18 11:59 Last Admin: 09/16/18 08:02 Dose: 25 mls/hr Potassium Chloride 20 meq/ (Premix) 100 mls @ 50 mls/hr IV ONETIME ONE Stop: 09/16/18 13:59 Last Admin: 09/16/18 11:36 Dose: 50 mls/hr Potassium Chloride 40 meq/ (Premix) 100 mls @ 25 mls/hr IV ONETIME ONE Stop: 09/17/18 11:59 Last Admin: 09/17/18 08:43 Dose: 25 mls/hr Magnesium Sulfate 2 gm/ Premix 50 mls @ 25 mls/hr IV Q6H [facility] Stop: 09/19/18 05:59 Last Admin: 09/19/18 03:26 Dose: 25 mls/hr Potassium Chloride 40 meq/ (Premix) 100 mls @ 25 mls/hr IV ONETIME ONE Stop: 09/18/18 12:59 Last Admin: 09/18/18 08:34 Dose: 25 mls/hr Potassium Chloride 40 meq/ (Premix) 100 mls @ 25 mls/hr IV ONETIME ONE Stop: 09/19/18 11:59 Last Admin: 09/19/18 08:19 Dose: 25 mls/hr Potassium Chloride 20 meq/ (Premix) 100 mls @ 50 mls/hr IV ONETIME ONE Stop: 09/19/18 13:59 Last Admin: 09/19/18 11:05 Dose: 50 mls/hr Propofol (Diprivan 100 Ml) 100 mls @ 2.354 mls/hr IV TITRATE [facility]; Protocol Last Admin: 09/20/18 05:35 Dose: 15 mcg/kg/min, 7.062 mls/hr Multivitamins/Minerals 10 ml/Chromium/Copper/Manganese/Seleni/Zn 1 ml/ Amino Ac/ Electrol/Dextrose/Calcium 2,011 mls @ 100 mls/hr IV .BY DURATION NAHED Amino Ac/Electrol/Dextrose/Calcium (Clinimix E 5/20) 2,000 mls @ 100 mls/hr IV .BY DURATION [facility] Multivitamins/Minerals 10 ml/Chromium/Copper/Manganese/Seleni/Zn 1 ml/ Amino Ac/ Electrol/Dextrose/Calcium 2,011 mls @ 62 mls/hr IV .BY DURATION [facility] Stop: 09/21/18 16:50 Last Admin: 09/20/18 17:31 Dose: 62 mls/hr Amino Ac/Electrol/Dextrose/Calcium (Clinimix E 09/28) 2,000 mls @ 62 mls/hr IV .BY DURATION [facility] Stop: 09/21/18 16:50 Potassium Chloride 40 meq/ (Premix) 100 mls @ 25 mls/hr IV ONETIME ONE Stop: 09/21/18 12:59 Last Admin: 09/21/18 09:38 Dose: 25 mls/hr Potassium Phosphate 22.5 mmole (/ Sodium Chloride) 257.5 mls @ 86 mls/hr IV Q3H [facility] Stop: 09/22/18 20:59 Last Admin: 09/22/18 17:50 Dose: 86 mls/hr Iopamidol (Isovue-300 (61%)) 100 ml IV . DIRECTED PRN PRN Reason: RADIOLOGY EXAM Stop: 09/09/18 11:03 Last Admin: 09/08/18 14:16 Dose: 100 ml Lidocaine HCl (Xylocaine 2% Viscous) Confirm Administered Dose 15 ml .ROUTE .STK -MED ONE Stop: 09/12/18 11:15 Lidocaine HCl (Xylocaine 4% Top Soln) Confirm Administered Dose 50 ml .ROUTE .STK-MED ONE Stop: 09/12/18 11:15 Lidocaine HCl (Xylocaine 4% Top Soln) Confirm Administered Dose 50 ml .ROUTE .STK-MED ONE Stop: 09/14/18 06:57 Last Admin: 09/14/18 07:20 Dose: 20 ml Lidocaine HCl (Xylocaine-Mpf 1%) 5 ml INJECT ONETIME ONE Stop: 09/17/18 06:31 Last Admin: 09/17/18 06:52 Dose: 5 ml Lidocaine HCl (Xylocaine 2% Viscous) Confirm Administered Dose 15 ml .ROUTE .STK -MED ONE Stop: 09/20/18 06:37 Lidocaine HCl (Xylocaine 4% Top Soln) Confirm Administered Dose 50 ml .ROUTE .STK-MED ONE Stop: 09/20/18 06:38 Last Admin: 09/20/18 09:05 Dose: 50 ml Lidocaine/Epinephrine (Xylocaine 1% With Epinephrine 1:100,000) Confirm Administered Dose 50 ml .ROUTE .STK-MED ONE Stop: 09/07/18 06:48 Last Admin: 09/07/18 10:54 Dose: 18 ml Lidocaine/Epinephrine (Xylocaine 1% With Epinephrine 1:100,000) Confirm Administered Dose 50 ml .ROUTE .STK-MED ONE Stop: 09/11/18 09:07 Last Admin: 09/11/18 10:49 Dose: 2 ml Lidocaine/Epinephrine (Xylocaine 1% With Epinephrine 1:100,000) Confirm Administered Dose 50 ml .ROUTE .STK-MED ONE Stop: 09/20/18 06:38 Lorazepam (Ativan) 0.5 mg IVPUSH Q4H PRN PRN Reason: Nausea/Vomiting Lorazepam (Ativan) 0.5 mg IVPUSH Q3H PRN PRN Reason: AGITATION Last Admin: 09/18/18 13:47 Dose: 0.5 mg Meropenem (Merrem) Confirm Administered Dose 1,000 mg .ROUTE .STK-MED ONE Stop: 09/03/18 17:54 Last Admin: 09/03/18 18:32 Dose: 3,500 mg Meropenem (Merrem) Confirm Administered Dose 1,000 mg .ROUTE .STK-MED ONE Stop: 09/03/18 18:04 Meropenem (Merrem) Confirm Administered Dose 2,000 mg .ROUTE .STK-MED ONE Stop: 09/03/18 18:18 Meropenem (Merrem) Confirm Administered Dose 500 mg .ROUTE .STK-MED ONE Stop: 09/07/18 06:48 Last Admin: 09/07/18 10:53 Dose: 500 mg Metoprolol Tartrate (Lopressor) 25 mg PO ONETIME ONE Stop: 09/03/18 10:41 Last Admin: 09/03/18 11:00 Dose: 25 mg Metoprolol Tartrate (Lopressor) 5 mg IVPUSH Q6H [facility] Last Admin: 09/08/18 09:25 Dose: 5 mg Metoprolol Tartrate (Lopressor) 2.5 mg IVPUSH Q6H [facility] Last Admin: 09/10/18 03:55 Dose: 2.5 mg Metoprolol Tartrate (Lopressor) Confirm Administered Dose 5 mg .ROUTE .STK-MED ONE Stop: 09/08/18 21:53 Last Admin: 09/08/18 22:19 Dose: Not Given Metoprolol Tartrate (Lopressor) 2.5 mg IVPUSH Q4H [facility] Last Admin: 09/11/18 21:25 Dose: Not Given Morphine Sulfate (Morphine) 2 mg IVPUSH Q1H PRN PRN Reason: Anxiety Last Admin: 09/19/18 16:04 Dose: 2 mg Naloxone HCl (Narcan) 0.1 mg IV ASDIRECTED PRN PRN Reason: decreased respiratory rate Neostigmine Methylsulfate (Neostigmine) Confirm Administered Dose 5 mg .ROUTE .STK-MED ONE Stop: 09/03/18 14:41 Neostigmine Methylsulfate (Neostigmine) Confirm Administered Dose 5 mg .ROUTE .STK-MED ONE Stop: 09/04/18 09:47 Non-Formulary Medication (Total Parenteral Nutrition, Central) 0 ml IV ASDIRECTED [facility] Stop: 09/12/18 13:31 Non-Formulary Medication (Total Parenteral Nutrition, Central) 0 ml IV ASDIRECTED [facility] Stop: 09/13/18 13:00 Ondansetron HCl (Zofran Odt) 4 mg PO Q6H PRN PRN Reason: Nausea able to take PO Ondansetron HCl (Zofran) 4 mg IV Q6H PRN PRN Reason: Nausea/Vomiting Ondansetron HCl (Zofran) Confirm Administered Dose 4 mg .ROUTE .STK-MED ONE Stop: 09/03/18 14:41 Ondansetron HCl (Zofran) Confirm Administered Dose 4 mg .ROUTE .STK-MED ONE Stop: 09/04/18 09:47 Pantoprazole Sodium (Protonix Iv) 40 mg IV Q12H [facility] Last Admin: 09/03/18 16:07 Dose: 40 mg Piperacillin Sod/Tazobactam Sod (Zosyn) 10.125 gm .XX ASDIRECTED [facility] Stop: 09/04/18 15:00 Last Admin: 09/04/18 14:04 Dose: 10.125 gm Propofol (Diprivan 20 Ml) Confirm Administered Dose 200 mg .ROUTE .STK-MED ONE Stop: 09/03/18 14:41 Propofol (Diprivan 20 Ml) Confirm Administered Dose 200 mg .ROUTE .STK-MED ONE Stop: 09/04/18 09:47 Propofol (Diprivan 20 Ml) Confirm Administered Dose 200 mg .ROUTE .STK-MED ONE Stop: 09/06/18 07:01 Propofol (Diprivan 20 Ml) Confirm Administered Dose 200 mg .ROUTE .STK-MED ONE Stop: 09/19/18 14:22 Rocuronium [place] (Zemuron) Confirm Administered Dose 50 mg .ROUTE .STK-MED ONE Stop: 09/03/18 14:41 Rocuronium [place] (Zemuron) Confirm Administered Dose 50 mg .ROUTE .STK-MED ONE Stop: 09/04/18 09:47 Rocuronium [place] (Zemuron) Confirm Administered Dose 50 mg .ROUTE .STK-MED ONE Stop: 09/20/18 07:50 Succinylcholine Chloride (Quelicin) Confirm Administered Dose 200 mg .ROUTE .STK -MED ONE Stop: 09/03/18 14:41 Succinylcholine Chloride (Quelicin) Confirm Administered Dose 200 mg .ROUTE .STK -MED ONE Stop: 09/04/18 09:47 Succinylcholine Chloride (Quelicin) Confirm Administered Dose 200 mg .ROUTE .STK -MED ONE Stop: 09/06/18 07:01 - Exam Quality Assessment: Supplemental Oxygen (Ventilator), Central Line/PICC, Urine Catheter, DVT Prophylaxis General: Alert, Cooperative, Mild Distress Lungs: Normal Respiratory Effort, Decreased Breath Sounds, Rales Cardiovascular: Regular Rate, Regular Rhythm, No Murmurs GI/Abdominal Exam: Soft, No Organomegaly, Tender. No: Distended, Guarding, Rigid, Rebound Extremities: Non-Tender, Pedal Edema - Problem List Review Problem List Initiated/Reviewed/Updated: Yes - My Orders Last 24 Hours: My Active Orders 09/23/18 05:51 RT Communication [RC] Click to Edit 09/23/18 18:00 Furosemide [Lasix] 40 mg IVPUSH NOW ONE - Plan Plan:: ASSESSMENT AND PLAN Acute respiratory failure with hypoxia and hypercapnia - status post placement of tracheostomy 09/20, failed IMV trial, now back on assist control -Resume weaning process in a.m. after she is rested for 24 hours -Furosemide 40 mg IV twice daily today -Up to chair 4 times daily -Physical therapy -Continue fluconazole -Mechanical ventilation with tracheostomy -treat anxiety as indicated -Daily chest x-rays Perforated sigmoid colon with sepsis - Initial surgical resection on 09/03 and Second Look laparotomy on 09/04. Sepsis has resolved. Cultures grew out Klebsiella, Escherichia coli and anaerobic bacteria. stable from this standpoint and she has completed adequate anabiotic for this infection. Malnourished with essentially no oral intake in the last 2 weeks. -Pain control as indicated -TPN Hypertension - no longer has NG. blood pressure has been stable. -Metoprolol 25 mg by mouth twice a day -PRN meds if SBP >175 Anemia of critical illness - hemoglobin now stable with no evidence for bleeding. -Transfuse if less than 7 since she is currently hemodynamically stable and oxygenating well Acute kidney injury - renal function back to normal and stable. She does have an elevated BUN out of proportion to her creatinine but this is slowly trending down. -Management as above -Repeat labs in the morning Mixed delirium - She remains lethargic with recent sedation but sedation will be off now that she has a tracheostomy. -Symptomatically management and treatment of the above conditions Maintenance issues - - DVT prophylaxis - mechanical - GI prophylaxis - PPI - Nutrition - nothing by mouth - Rubin catheter - placed for strict intake and output monitoring and a critical patient Disposition - I would anticipate discharge to an LTAC for ventilator weaning
[2018-09-23] MEDS ORDERED: Furosemide 40 MG/4 ML VIAL IV ONE (14:30)
[2018-09-23] MEDS: CALCIUM IV SCH ×4 (16:06)
[2018-09-23] MEDS: [UNRECOGNIZED DRUG - OTHER] IV SCH ×4 (16:06)
[2018-09-23] MEDS: MVI IV SCH ×4 (16:06)
[2018-09-23] MEDS: LYTES IV SCH ×4 (16:06)
[2018-09-23] MEDS: VITAMIN K IV SCH ×4 (16:06)
[2018-09-23] MEDS: Fluconazole/Normal Saline 400 MG in Premix Bag 1 BAG IV SCH (19:28)
[2018-09-23] MEDS: Pantoprazole 40 MG Tab.CR PO SCH (21:13)
[2018-09-24] MEDS: Magnesium Sulfate/Water 2 GM in Premix Bag 1 BAG IV SCH ×4 (04:50→21:38)
--- NOTE | 2018-09-24 07:13 | PCM.PN ---
- General Info Date of Service: 09/24/18 - Review of Systems Systems Review Comment:: Tina Muniz is a 78 year old female who is on postoperative day #21 from the original exploratory laparotomy surgery. On 09/23/2018 she was switched to assist control status due to respiratory compromise and today she appears to be stabilized. She is unable to provide symptoms due to tracheostomy. Total intake is 2208 mL and total output is 4825 mL. Total output through Rubin catheter is 4825 mL. Labs show wbc at 8.3, arterial blood gases show pH at 7.544, pCO2 at 104, HCO3 is 30.5. Potassium is 3.0, Magnesium is 2.9, AST is 179, ALT is 280, BNP is 5334 and Albumin is 2.3. Incision site is healing well and steri strips are intact. Vital signs are stable. - Patient Data Vitals - Most Recent: Last Vital Signs Temp 36.7 C 09/24/18 04:00 Pulse 87 09/24/18 05:58 Resp 23 H 09/24/18 05:58 BP 142/70 H 09/24/18 04:00 Pulse Ox 97 09/24/18 05:58 Weight - Most Recent: 74.843 kg I&O - Last 24 Hours: Intake & Output 09/23/18 09/24/18 09/24/18 22:59 06:59 14:59 Intake Total 1194 1014 Output Total 1550 1725 Balance -356 -711 Lab Results Last 24 Hours: Laboratory Results - last 24 hr 09/24/18 09/24/18 09/24/18 Range/Units 05:00 05:00 05:00 WBC 8.3 (4.5-11.0) K/uL RBC 3.54 (3.30-5.50) M/uL Hgb 11.2 L (12.0-15.0) g/dL Hct 33.4 L (36.0-48.0) % MCV 94 (80-98) fL MCH 32 H (27-31) pg MCHC 34 (32-36) % Plt Count 155 (150-400) K/uL Neut % (Auto) 74 H (36-66) % Lymph % (Auto) 5 L (24-44) % [place] % (Auto) 13 H (2-6) % Eos % (Auto) 7 H (2-4) % Baso % (Auto) 1 (0-1) % Puncture Site R brachial ABG pH 7.610 H* (7.350-7.450) ABG pCO2 28.7 L (35.0-42.0) mmHg ABG pO2 144.0 H (75.0-100.0) mmHg ABG HCO3 29.0 H (22.0-26.0) mmol/L ABG Total CO2 25.5 H (21.0-25.0) mmol/L ABG O2 Saturation 99.2 H (95.0-98.0) % ABG O2 Content 15.8 (15.0-23.0) %vol ABG Base Excess 7.6 mm/L ABG Hemoglobin 11.4 L (12.0-16.0) g/dL ABG Oxyhemoglobin 96.7 % ABG Carboxyhemoglobin 1.9 H (0.0-1.6) % ABG Methemoglobin 0.6 % O2 Delivery Device Ventilator Oxygen Flow Rate L Sodium 141 (140-148) mmol/L Potassium 3.0 L (3.6-5.2) mmol/L Chloride 103 (100-108) mmol/L Carbon Dioxide 31 (21-32) mmol/L Anion Gap 10.0 (5.0-14.0) mmol/L BUN 45 H (7-18) mg/dL Creatinine 0.9 (0.6-1.0) mg/dL Est Cr Clr Drug Dosing 39.01 mL/min Estimated GFR (MDRD) > 60 (>60) Glucose 90 (74-106) mg/dL Calcium 10.2 H (8.5-10.1) mg/dL Phosphorus 3.9 (2.5-4.9) mg/dL Magnesium 2.9 H D (1.8-2.4) mg/dL Total Bilirubin 1.1 H (0.2-1.0) mg/dL AST 179 H (15-37) U/L ALT 280 H (12-78) U/L Alkaline Phosphatase 401 H (46-116) U/L NT-Pro-B Natriuret Pep 5334 H (5-450) pg/mL Total Protein 6.6 (6.4-8.2) g/dL Albumin 2.3 L (3.4-5.0) g/dL Globulin 4.3 H (2.3-3.5) g/dL Albumin/Globulin Ratio 0.5 L (1.2-2.2) 09/24/18 Range/Units 05:24 WBC (4.5-11.0) K/uL RBC (3.30-5.50) M/uL Hgb (12.0-15.0) g/dL Hct (36.0-48.0) % MCV (80-98) fL MCH (27-31) pg MCHC (32-36) % Plt Count (150-400) K/uL Neut % (Auto) (36-66) % Lymph % (Auto) (24-44) % [place] % (Auto) (2-6) % Eos % (Auto) (2-4) % Baso % (Auto) (0-1) % Puncture Site R brachial ABG pH 7.544 H (7.350-7.450) ABG pCO2 35.4 (35.0-42.0) mmHg ABG pO2 104.0 H (75.0-100.0) mmHg ABG HCO3 30.5 H (22.0-26.0) mmol/L ABG Total CO2 27.1 H (21.0-25.0) mmol/L ABG O2 Saturation 98.2 H (95.0-98.0) % ABG O2 Content 15.7 (15.0-23.0) %vol ABG Base Excess 7.7 mm/L ABG Hemoglobin 11.4 L (12.0-16.0) g/dL ABG Oxyhemoglobin 97.2 % ABG Carboxyhemoglobin 0.5 (0.0-1.6) % ABG Methemoglobin 0.5 % O2 Delivery Device Ventilator Oxygen Flow Rate L Sodium (140-148) mmol/L Potassium (3.6-5.2) mmol/L Chloride (100-108) mmol/L Carbon Dioxide (21-32) mmol/L Anion Gap (5.0-14.0) mmol/L BUN (7-18) mg/dL Creatinine (0.6-1.0) mg/dL Est Cr Clr Drug Dosing mL/min Estimated GFR (MDRD) (>60) Glucose (74-106) mg/dL Calcium (8.5-10.1) mg/dL Phosphorus (2.5-4.9) mg/dL Magnesium (1.8-2.4) mg/dL Total Bilirubin (0.2-1.0) mg/dL AST (15-37) U/L ALT (12-78) U/L Alkaline Phosphatase (46-116) U/L NT-Pro-B Natriuret Pep (5-450) pg/mL Total Protein (6.4-8.2) g/dL Albumin (3.4-5.0) g/dL Globulin (2.3-3.5) g/dL Albumin/Globulin Ratio (1.2-2.2) Med Orders - Current: Current Medications Albuterol (Proventil Neb Soln) 2.5 mg NEB Q4H PRN PRN Reason: Dyspnea Albuterol/Ipratropium (Duoneb 3.0-0.5 Mg/3 Ml) 3 ml NEB QIDRT [facility] Last Admin: 09/23/18 21:13 Dose: 3 ml Citalopram Hydrobromide (Celexa) 20 mg PO DAILY [facility] Last Admin: 09/23/18 09:24 Dose: 20 mg Dimethicone/Zinc Oxide (Rash Relief-Zinc Oxide [place]) 0 gm TOP ASDIRECTED PRN PRN Reason: Inflammation Last Admin: 09/21/18 15:28 Dose: 2 spray Hydralazine HCl (Apresoline) 5 mg IVPUSH Q4H PRN PRN Reason: Hypertension Last Admin: 09/19/18 13:41 Dose: 5 mg Hydromorphone HCl (Dilaudid) 0.5 mg IVPUSH Q2H PRN PRN Reason: Pain Last Admin: 09/23/18 23:51 Dose: 0.5 mg Hydroxyzine HCl (Vistaril) 50 mg IM Q4H PRN PRN Reason: Pain Heparin Sodium (Porcine) 5,000 (units/ Sodium Chloride) 501 mls @ 5 mls/hr IV ASDIRECTED [facility] Last Admin: 09/22/18 14:59 Dose: 5 mls/hr Sodium Chloride (Normal Saline) 1,000 mls @ 0 mls/hr IV ASDIRECTED [facility] Last Admin: 09/19/18 05:15 Dose: 12.5 mls/hr Lactated Ringer's (Ringers, Lactated) 1,000 mls @ 25 mls/hr IV ASDIRECTED [facility] Last Admin: 09/18/18 21:11 Dose: 25 mls/hr Fluconazole/Sodium Chloride (400 mg/ Premix) 200 mls @ 100 mls/hr IV Q24H [facility] Last Admin: 09/23/18 19:28 Dose: 100 mls/hr Multivitamins/Minerals 10 ml/Chromium/Copper/Manganese/Seleni/Zn 1 ml/ Amino Ac/ Electrol/Dextrose/Calcium 2,011 mls @ 62 mls/hr IV .BY DURATION [facility] Last Admin: 09/23/18 16:06 Dose: 62 mls/hr Amino Ac/Electrol/Dextrose/Calcium (Clinimix E 09/28) 2,000 mls @ 62 mls/hr IV .BY DURATION [facility] Magnesium Sulfate 2 gm/ Premix 50 mls @ 25 mls/hr IV Q6H [facility] Stop: 09/25/18 05:59 Last Admin: 09/24/18 04:50 Dose: 25 mls/hr Ketoconazole (Nizoral 2% Crm) 0 gm TOP TID [facility] Last Admin: 09/23/18 21:13 Dose: 1 lotion Lorazepam (Ativan) 0.5 mg IVPUSH Q1H PRN PRN Reason: Anxiety Last Admin: 09/23/18 07:29 Dose: 0.5 mg Metoprolol Tartrate (Lopressor) 2.5 mg IVPUSH Q4H PRN PRN Reason: Hypertension Last Admin: 09/19/18 11:44 Dose: 2.5 mg Metoprolol Tartrate (Lopressor) 25 mg PO Q12H [facility] Last Admin: 09/23/18 21:13 Dose: 25 mg Pantoprazole Sodium (Protonix) 40 mg PO BEDTIME [facility] Last Admin: 09/23/18 21:13 Dose: 40 mg Discontinued Medications Acetaminophen (Tylenol) 650 mg PO Q4H PRN PRN Reason: Pain (Mild 1-3)/fever Acetaminophen (Tylenol) 650 mg RECTAL Q4H PRN PRN Reason: Mild pain/fever Acetylcysteine (Mucomyst 20%) 200 mg NEB QIDRT [facility] Last Admin: 09/20/18 07:00 Dose: 200 mg Albuterol (Proventil Neb Soln) 2.5 mg NEB Q4H PRN PRN Reason: Shortness Of Breath/wheezing Albuterol/Ipratropium (Duoneb 3.0-0.5 Mg/3 Ml) 3 ml INH PREPRO ONE Stop: 09/03/18 17:01 Last Admin: 09/03/18 16:25 Dose: 3 ml Albuterol/Ipratropium (Duoneb 3.0-0.5 Mg/3 Ml) 3 ml NEB QID [facility] Last Admin: 09/13/18 21:11 Dose: 3 ml Aztreonam (Azactam) Confirm Administered Dose 1 gm .ROUTE .STK-MED ONE Stop: 09/03/18 21:44 Last Admin: 09/03/18 22:15 Dose: Not Given Benazepril HCl (Lotensin) 40 mg PO ONETIME ONE Stop: 09/03/18 10:41 Last Admin: 09/03/18 11:00 Dose: 40 mg Benazepril HCl (Lotensin) 40 mg NGTUBE DAILY [facility] Last Admin: 09/20/18 09:55 Dose: Not Given Bupivacaine HCl (Marcaine 0.5%) Confirm Administered Dose 50 ml .ROUTE .STK-MED ONE Stop: 09/07/18 06:48 Last Admin: 09/07/18 10:53 Dose: 18 ml Bupivacaine HCl (Marcaine 0.5%) Confirm Administered Dose 50 ml .ROUTE .STK-MED ONE Stop: 09/11/18 09:07 Last Admin: 09/11/18 10:49 Dose: 2 ml Ropivacaine 22 ml/Dexamethasone 8 mg/Epinephrine HCl 0.4 mg/ Sodium Chloride 55.6 ml 0 ml NERVRT ASDIRECTED [facility] Ropivacaine 22 ml/Dexamethasone 8 mg/Epinephrine HCl 0.4 mg/ Sodium Chloride 55.6 ml 0 ml NERVRT ASDIRECTED [facility] Last Admin: 09/04/18 14:03 Dose: 80 syringe Ropivacaine 22 ml/Dexamethasone 8 mg/Epinephrine HCl 0.4 mg/ Sodium Chloride 55.6 ml 0 ml NERVRT ASDIRECTED [facility] Last Admin: 09/07/18 11:07 Dose: 80 syringe Dexamethasone (Dexamethasone) Confirm Administered Dose 4 mg .ROUTE .STK-MED ONE Stop: 09/03/18 14:41 Dexamethasone (Dexamethasone) Confirm Administered Dose 4 mg .ROUTE .STK-MED ONE Stop: 09/04/18 09:47 Fentanyl (Sublimaze) 25 mcg IVPUSH ONETIME ONE Stop: 09/03/18 13:57 Last Admin: 09/03/18 14:16 Dose: 25 mcg Fentanyl (Sublimaze) 25 mcg IVPUSH Q2H PRN PRN Reason: Pain (severe 7-10) Fentanyl (Sublimaze) Confirm Administered Dose 250 mcg .ROUTE .STK-MED ONE Stop: 09/03/18 14:41 Fentanyl (Sublimaze) Confirm Administered Dose 250 mcg .ROUTE .STK-MED ONE Stop: 09/04/18 09:46 Fentanyl (Sublimaze) Confirm Administered Dose 250 mcg .ROUTE .STK-MED ONE Stop: 09/04/18 13:57 Fentanyl (Sublimaze) Confirm Administered Dose 100 mcg .ROUTE .STK-MED ONE Stop: 09/11/18 10:36 Fentanyl (Sublimaze) Confirm Administered Dose 250 mcg .ROUTE .STK-MED ONE Stop: 09/20/18 07:50 Furosemide (Lasix) 20 mg IVPUSH ONETIME ONE Stop: 09/04/18 15:10 Last Admin: 09/04/18 15:18 Dose: 20 mg Furosemide (Lasix) 40 mg IV ONETIME ONE Stop: 09/06/18 08:16 Last Admin: 09/06/18 08:26 Dose: 40 mg Furosemide (Lasix) 20 mg IV Q12H [facility] Stop: 09/07/18 20:01 Last Admin: 09/07/18 20:10 Dose: 20 mg Furosemide (Lasix) 20 mg IVPUSH Q12H [facility] Stop: 09/08/18 19:01 Last Admin: 09/08/18 19:50 Dose: 20 mg Furosemide (Lasix) 20 mg IVPUSH ONETIME ONE Stop: 09/09/18 07:01 Last Admin: 09/09/18 08:14 Dose: 20 mg Furosemide (Lasix) 20 mg IVPUSH ONETIME ONE Stop: 09/09/18 11:01 Last Admin: 09/09/18 12:38 Dose: 20 mg Furosemide (Lasix) 20 mg IVPUSH ONETIME ONE Stop: 09/09/18 20:01 Furosemide (Lasix) 20 mg IV Q8H [facility] Stop: 09/11/18 00:31 Last Admin: 09/10/18 23:50 Dose: 20 mg Furosemide (Lasix) 20 mg IV Q8H [facility] Stop: 09/12/18 00:01 Last Admin: 09/11/18 23:34 Dose: 20 mg Furosemide (Lasix) 20 mg IVPUSH Q8H [facility] Stop: 09/13/18 02:31 Last Admin: 09/13/18 02:39 Dose: 20 mg Furosemide (Lasix) 20 mg IVPUSH Q8H [facility] Stop: 09/14/18 02:31 Last Admin: 09/14/18 02:29 Dose: 20 mg Furosemide (Lasix) 40 mg IVPUSH ONETIME ONE Stop: 09/14/18 10:01 Last Admin: 09/14/18 13:28 Dose: 40 mg Furosemide (Lasix) 20 mg IVPUSH BID [facility] Furosemide (Lasix) 20 mg IVPUSH ONETIME ONE Stop: 09/15/18 06:34 Last Admin: 09/15/18 06:48 Dose: 20 mg Furosemide (Lasix) 40 mg IVPUSH Q8H [facility] Stop: 09/15/18 20:31 Last Admin: 09/15/18 20:39 Dose: 40 mg Furosemide (Lasix) 40 mg IV BID [facility] Stop: 09/16/18 21:01 Last Admin: 09/16/18 21:19 Dose: 40 mg Furosemide (Lasix) 40 mg IV Q12H [facility] Stop: 09/17/18 21:01 Last Admin: 09/17/18 21:11 Dose: 40 mg Furosemide (Lasix) 40 mg IV Q8H [facility] Stop: 09/18/18 16:01 Last Admin: 09/18/18 16:00 Dose: 40 mg Furosemide (Lasix) 40 mg IV Q12H [facility] Stop: 09/19/18 20:01 Last Admin: 09/19/18 19:23 Dose: 40 mg Furosemide (Lasix) 20 mg IVPUSH Q12H [facility] Stop: 09/20/18 22:01 Last Admin: 09/20/18 21:52 Dose: 20 mg Furosemide (Lasix) 20 mg IVPUSH Q8H [facility] Stop: 09/21/18 20:01 Last Admin: 09/21/18 19:37 Dose: 20 mg Furosemide (Lasix) 20 mg IVPUSH Q6H [facility] Stop: 09/22/18 14:01 Last Admin: 09/22/18 13:54 Dose: 20 mg Furosemide (Lasix) Confirm Administered Dose 40 mg .ROUTE .STK-MED ONE Stop: 09/23/18 06:19 Last Admin: 09/23/18 07:04 Dose: Not Given Furosemide (Lasix) 40 mg IVPUSH ONETIME ONE Stop: 09/23/18 06:21 Last Admin: 09/23/18 06:15 Dose: 40 mg Furosemide (Lasix) 40 mg IV ONETIME ONE Stop: 09/23/18 14:31 Last Admin: 09/23/18 14:05 Dose: 40 mg Furosemide (Lasix) 40 mg IVPUSH NOW ONE Stop: 09/23/18 18:01 Last Admin: 09/23/18 17:12 Dose: 40 mg Gentamicin Sulfate (Gentamicin) 1 mg IV .Pharmacy to Dose NAHED Stop: 09/08/18 14:31 Glycopyrrolate (Robinul) Confirm Administered Dose 1 mg .ROUTE .STK-MED ONE Stop: 09/03/18 14:41 Glycopyrrolate (Robinul) Confirm Administered Dose 1 mg .ROUTE .ST-MED ONE Stop: 09/04/18 09:47 Heparin Sodium (Porcine) (Heparin Sodium) Confirm Administered Dose 5,000 units .ROUTE .STK-MED ONE Stop: 09/03/18 18:32 Heparin Sodium (Porcine) (Heparin Lock Flush 100 Units/Ml) Confirm Administered Dose 500 units .ROUTE .STK-MED ONE Stop: 09/04/18 13:14 Heparin Sodium (Porcine) (Heparin Lock Flush 100 Units/Ml) Confirm Administered Dose 1,000 units .ROUTE .STK-MED ONE Stop: 09/11/18 09:07 Last Admin: 09/11/18 10:58 Dose: 1,000 units Heparin Sodium (Porcine) (Heparin Lock Flush 100 Units/Ml) Confirm Administered Dose 500 units .ROUTE .STK-MED ONE Stop: 09/11/18 10:44 Last Admin: 09/11/18 10:58 Dose: 500 units Hydromorphone HCl (Dilaudid) 0.5 mg IVPUSH ONETIME ONE Stop: 09/03/18 10:48 Last Admin: 09/03/18 11:00 Dose: 0.5 mg Hydromorphone HCl (Dilaudid) 0.5 mg IVPUSH ONETIME ONE Stop: 09/03/18 11:22 Last Admin: 09/03/18 11:25 Dose: 0.5 mg Hydromorphone HCl (Dilaudid) 0.5 mg IVPUSH ONETIME ONE Stop: 09/03/18 12:10 Last Admin: 09/03/18 12:12 Dose: 0.5 mg Hydromorphone HCl (Dilaudid) 0.5 mg IVPUSH ONETIME ONE Stop: 09/03/18 12:40 Last Admin: 09/03/18 12:44 Dose: 0.5 mg Hydromorphone HCl (Dilaudid) 1 mg IVPUSH ONETIME ONE Stop: 09/03/18 12:57 Last Admin: 09/03/18 13:00 Dose: 1 mg Hydromorphone HCl (Dilaudid Assistant Pastry Chef 15 Mg In Ns 30 Ml) 0 mg IV ASDIRECTED PRN; Protocol PRN Reason: [employer] 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 Last Admin: 09/09/18 05:52 Dose: 15 mg Sodium Chloride (Normal Saline) 1,000 mls @ 1,000 mls/hr IV .BOLUS ONE Stop: 09/03/18 12:17 Last Admin: 09/03/18 11:25 Dose: 1,000 mls/hr Piperacillin/Tazobactam/ (Dextrose 4.5 gm/ Premix) 100 mls @ 200 mls/hr IV ONETIME ONE Stop: 09/03/18 13:29 Last Admin: 09/03/18 13:04 Dose: 200 mls/hr Sodium Chloride (Normal Saline) 1,000 mls @ 500 mls/hr IV ASDIRECTED [facility] Last Admin: 09/03/18 13:00 Dose: 500 mls/hr Lactated Ringer's (Ringers, Lactated) 1,000 mls @ 125 mls/hr IV ASDIRECTED [facility] Last Admin: 09/03/18 16:07 Dose: 125 mls/hr Aztreonam 2 gm/ Sodium (Chloride) 100 mls @ 200 mls/hr IV NOW ONE Stop: 09/03/18 15:29 Last Admin: 09/03/18 14:56 Dose: 200 mls/hr Meropenem 500 mg/ Sodium (Chloride) 50 mls @ 100 mls/hr IV ONCALL ONE Stop: 09/03/18 17:29 Last Admin: 09/03/18 16:25 Dose: 100 mls/hr Piperacillin/Tazobactam/ (Dextrose 3.375 gm/ Premix) 50 mls @ 100 mls/hr IV Q6H [facility] Last Admin: 09/03/18 22:15 Dose: Not Given Sodium Chloride (Normal Saline) Confirm Administered Dose 500 mls @ as directed .ROUTE .STK-MED ONE Stop: 09/03/18 18:33 Aztreonam/Dextrose 1 gm/ (Premix) 50 mls @ 100 mls/hr IV Q8HR NAHED Meropenem 500 mg/ Sodium (Chloride) 50 mls @ 100 mls/hr IV Q8H [facility] Last Admin: 09/10/18 05:17 Dose: 100 mls/hr Sodium Chloride (Normal Saline) Confirm Administered Dose 50 mls @ as directed .ROUTE .ST-MED ONE Stop: 09/03/18 22:01 Last Admin: 09/03/18 22:21 Dose: Not Given Aztreonam/Dextrose 1 gm/ (Premix) 50 mls @ 100 mls/hr IV Q8H [facility] Last Admin: 09/04/18 07:30 Dose: Not Given Dextrose/Lactated Ringer's (Dextrose 5%-Lactated Ringers) 1,000 mls @ 100 mls/ hr IV ASDIRECTED PRN PRN Reason: Hypotension Dextrose/Lactated Ringer's (Dextrose 5%-Lactated Ringers) 1,000 mls @ 100 mls/ hr IV ASDIRECTED [facility] Last Admin: 09/05/18 02:13 Dose: 100 mls/hr Lactated Ringer's (Ringers, Lactated) 1,000 mls @ 100 mls/hr IV ASDIRECTED [facility] Last Admin: 09/04/18 04:20 Dose: 100 mls/hr Lactated Ringer's (Ringers, Lactated) 500 mls @ 500 mls/hr IV .BOLUS NAHED Last Admin: 09/04/18 01:10 Dose: 500 mls/hr Lactated Ringer's (Ringers, Lactated) 500 mls @ 500 mls/hr IV .BOLUS NAHED Last Admin: 09/04/18 03:13 Dose: 500 mls/hr Propofol (Diprivan 100 Ml) 100 mls @ 1.361 mls/hr IV TITRATE NAHED; Protocol Last Titration: 09/04/18 07:52 Dose: 14 mcg/kg/min, 3.81 mls/hr Propofol (Diprivan 100 Ml) Confirm Administered Dose 100 mls @ as directed .ROUTE .STK-MED ONE Stop: 09/04/18 03:45 Last Admin: 09/04/18 03:59 Dose: Not Given Lactated Ringer's (Ringers, Lactated) 500 mls @ 999 mls/hr IV .BOLUS NAHED Last Admin: 09/04/18 06:10 Dose: 999 mls/hr Aztreonam/Dextrose 1 gm/ (Premix) 50 mls @ 100 mls/hr IV Q8H [facility] Last Admin: 09/07/18 08:15 Dose: 100 mls/hr Lactated Ringer's (Ringers, Lactated) 500 mls @ 500 mls/hr IV ASDIRECTED NAHED Last Admin: 09/04/18 21:04 Dose: 500 mls/hr Lactated Ringer's (Ringers, Lactated) Confirm Administered Dose 1,000 mls @ as directed .ROUTE .STK-MED ONE Stop: 09/04/18 13:11 Lactated Ringer's (Ringers, Lactated) Confirm Administered Dose 1,000 mls @ as directed .ROUTE .STK-MED ONE Stop: 09/04/18 13:11 Sodium Chloride (Normal Saline) Confirm Administered Dose 10 mls @ as directed .ROUTE .STK-MED ONE Stop: 09/04/18 13:15 Magnesium Sulfate 2 gm/ Premix 50 mls @ 25 mls/hr IV Q6H [facility] Stop: 09/06/18 11:59 Last Admin: 09/06/18 10:17 Dose: 25 mls/hr Lactated Ringer's (Ringers, Lactated) 500 mls @ 500 mls/hr IV ASDIRECTED [facility] Stop: 09/04/18 17:46 Heparin Sodium (Porcine) 5,000 (units/ Sodium Chloride) 501 mls @ 5 mls/hr IV ASDIRECTED [facility] Last Admin: 09/22/18 12:58 Dose: 5 mls/hr Lactated Ringer's (Ringers, Lactated) 500 mls @ 500 mls/hr IV ONETIME ONE Stop: 09/04/18 19:29 Last Admin: 09/04/18 18:37 Dose: 500 mls/hr Lactated Ringer's (Ringers, Lactated) 500 mls @ 1,000 mls/hr IV ONETIME ONE Stop: 09/04/18 23:30 Last Admin: 09/04/18 23:18 Dose: 1,000 mls/hr Lactated Ringer's (Ringers, Lactated) 500 mls @ 1,000 mls/hr IV ONETIME ONE Stop: 09/05/18 01:44 Last Admin: 09/05/18 01:15 Dose: 1,000 mls/hr Lactated Ringer's (Ringers, Lactated) 1,000 mls @ 150 mls/hr IV ASDIRECTED [facility] Last Admin: 09/05/18 02:13 Dose: 150 mls/hr Lactated Ringer's (Ringers, Lactated) 500 mls @ 1,000 mls/hr IV ONETIME ONE Stop: 09/05/18 03:38 Last Admin: 09/05/18 03:15 Dose: 1,000 mls/hr Multivitamins/Minerals 10 ml/Chromium/Copper/Manganese/Seleni/Zn 1 ml/ Amino Ac/ Electrol/Dextrose/Calcium 2,011 mls @ 82 mls/hr IV .BY DURATION [facility] Stop: 09/05/18 13:25 Last Admin: 09/05/18 13:32 Dose: Not Given Amino Ac/Electrol/Dextrose/Calcium (Clinimix E 09/23) 2,000 mls @ 82 mls/hr IV .BY DURATION [facility] Stop: 09/05/18 13:25 Vancomycin HCl 1 gm/ Sodium (Chloride) 250 mls @ 167 mls/hr IV Q24H [facility] Last Admin: 09/05/18 12:34 Dose: 167 mls/hr Sodium Chloride (Normal Saline) 1,000 mls @ 50 mls/hr IV ASDIRECTED [facility] Last Admin: 09/05/18 12:51 Dose: 50 mls/hr Multivitamins/Minerals 10 ml/Chromium/Copper/Manganese/Seleni/Zn 1 ml/ Amino Ac/ Electrol/Dextrose/Calcium 2,011 mls @ 82 mls/hr IV .BY DURATION [facility] Stop: 09/08/18 13:20 Last Admin: 09/07/18 15:09 Dose: 82 mls/hr Amino Ac/Electrol/Dextrose/Calcium (Clinimix E 09/23) 2,000 mls @ 82 mls/hr IV .BY DURATION [facility] Stop: 09/08/18 13:20 Vancomycin HCl 1 gm/ Sodium (Chloride) 250 mls @ 167 mls/hr IV Q24H [facility] Last Admin: 09/06/18 12:00 Dose: 167 mls/hr Sodium Chloride (Normal Saline) 500 mls @ 500 mls/hr IV ASDIRECTED ONE Stop: 09/05/18 16:29 Last Admin: 09/05/18 15:40 Dose: 500 mls/hr Sodium Chloride (Normal Saline) 1,000 mls @ 100 mls/hr IV ASDIRECTED NAHED Last Admin: 09/07/18 07:31 Dose: 100 mls/hr Propofol (Diprivan 100 Ml) 100 mls @ 1.361 mls/hr IV TITRATE NAHED; Protocol Last Titration: 09/17/18 03:30 Dose: 25 mcg/kg/min, 6.804 mls/hr Potassium Phosphate 20 mmole/ (Sodium Chloride) 106.6667 mls @ 35 mls/hr IV Q3H NAHED Stop: 09/07/18 17:29 Last Admin: 09/07/18 15:01 Dose: 35 mls/hr Albumin Human (Albumin 25%) 25 gm in 100 mls @ 25 mls/hr IV DAILY NAHED Stop: 09/09/18 12:59 Last Admin: 09/09/18 08:25 Dose: 25 mls/hr Albumin Human (Albumin 25%) 25 gm in 100 mls @ 25 mls/hr IV Q24H [facility] Stop: 09/09/18 17:59 Last Admin: 09/09/18 14:32 Dose: 25 mls/hr Aztreonam 1 gm/ Sodium (Chloride) 50 mls @ 100 mls/hr IV Q8H [facility] Last Admin: 09/08/18 09:41 Dose: 100 mls/hr Vancomycin HCl 1 gm/ Sodium (Chloride) 250 mls @ 167 mls/hr IV Q18H [facility] Last Admin: 09/09/18 18:42 Dose: 167 mls/hr Sodium Chloride (Normal Saline) 1,000 mls @ 999 mls/hr IV .BOLUS ONE Stop: 09/07/18 17:39 Last Admin: 09/07/18 17:26 Dose: 999 mls/hr Potassium Acetate 40 meq/ (Sodium Chloride) 120 mls @ 30 mls/hr IV ONETIME ONE Stop: 09/08/18 13:59 Last Admin: 09/08/18 09:44 Dose: 30 mls/hr Multivitamins/Minerals 10 ml/Chromium/Copper/Manganese/Seleni/Zn 1 ml/ Amino Ac/ Electrol/Dextrose/Calcium 1,011 mls @ 62 mls/hr IV .BY DURATION NAHED Stop: 09/20/18 17:00 Last Admin: 09/19/18 09:10 Dose: 62 mls/hr Amino Ac/Electrol/Dextrose/Calcium (Clinimix E 09/28) 1,000 mls @ 62 mls/hr IV .BY DURATION [facility] Stop: 09/20/18 17:00 Last Admin: 09/20/18 01:21 Dose: 62 mls/hr Sodium Chloride (Normal Saline) 100 mls @ 3 mls/sec IV ASDIRECTED [facility] Stop: 09/08/18 15:00 Last Admin: 09/08/18 14:17 Dose: 3 mls/sec Azithromycin 500 mg/ Sodium (Chloride) 250 mls @ 250 mls/hr IV Q24H [facility] Last Admin: 09/09/18 15:27 Dose: 250 mls/hr Gentamicin Sulfate 228 mg/ (Sodium Chloride) 105.7 mls @ 100 mls/hr IV ONETIME ONE Stop: 09/08/18 17:03 Last Admin: 09/08/18 16:19 Dose: 100 mls/hr Potassium Phosphate 15 mmole/ (Sodium Chloride) 105 mls @ 55 mls/hr IV Q2H [facility] Stop: 09/09/18 12:55 Last Admin: 09/09/18 15:27 Dose: 55 mls/hr Gentamicin Sulfate 228 mg/ (Sodium Chloride) 105.7 mls @ 100 mls/hr IV Q36H [facility] Last Admin: 09/10/18 03:55 Dose: 100 mls/hr Sodium Chloride (Normal Saline) 500 mls @ 999 mls/hr IV .BOLUS ONE Stop: 09/09/18 16:34 Last Admin: 09/09/18 16:18 Dose: 999 mls/hr Sodium Chloride (Normal Saline) 500 mls @ 999 mls/hr IV .BOLUS ONE Stop: 09/09/18 17:35 Last Admin: 09/09/18 17:18 Dose: 999 mls/hr Sodium Chloride (Normal Saline) 1,000 mls @ 125 mls/hr IV ASDIRECTED [facility] Last Admin: 09/10/18 01:41 Dose: 125 mls/hr Lactated Ringer's (Ringers, Lactated) 1,000 mls @ 125 mls/hr IV ASDIRECTED [facility] Last Admin: 09/11/18 01:06 Dose: 125 mls/hr Meropenem 500 mg/ Sodium (Chloride) 25 mls @ 50 mls/hr IV Q8H [facility] Last Admin: 09/20/18 13:05 Dose: 50 mls/hr Gentamicin Sulfate 228 mg/ (Sodium Chloride) 55.7 mls @ 55 mls/hr IV Q36H [facility] Last Admin: 09/14/18 16:49 Dose: 55 mls/hr Azithromycin 500 mg/ Dextrose/ (Water) 250 mls @ 250 mls/hr IV Q24H [facility] Stop: 09/17/18 17:00 Last Admin: 09/14/18 15:42 Dose: 250 mls/hr Vancomycin HCl 1 gm/ Dextrose/ (Water) 250 mls @ 167 mls/hr IV Q24H [facility] Last Admin: 09/13/18 17:48 Dose: 167 mls/hr Fluconazole/Sodium Chloride (200 mg/ Premix) 100 mls @ 100 mls/hr IV Q24H [facility] Last Admin: 09/15/18 20:38 Dose: 100 mls/hr Magnesium Sulfate 2 gm/ Premix 50 mls @ 25 mls/hr IV Q6H [facility] Stop: 09/13/18 05:59 Last Admin: 09/13/18 03:31 Dose: 25 mls/hr Potassium Phosphate 22.5 mmole (/ Dextrose/Water) 107.5 mls @ 27 mls/hr IV Q4H [facility] Stop: 09/11/18 17:29 Last Admin: 09/11/18 14:45 Dose: 27 mls/hr Lactated Ringer's (Ringers, Lactated) 1,000 mls @ 75 mls/hr IV ASDIRECTED [facility] Last Admin: 09/13/18 22:27 Dose: 75 mls/hr Sodium Chloride (Normal Saline) Confirm Administered Dose 10 mls @ as directed .ROUTE .STK-MED ONE Stop: 09/11/18 10:41 Potassium Chloride 40 meq/ (Premix) 100 mls @ 25 mls/hr IV ONETIME ONE Stop: 09/13/18 12:59 Last Admin: 09/13/18 09:31 Dose: 25 mls/hr Potassium Chloride 40 meq/ (Premix) 100 mls @ 25 mls/hr IV ONETIME ONE Stop: 09/13/18 17:59 Last Admin: 09/13/18 13:11 Dose: 25 mls/hr Albumin Human (Albumin 25%) 25 gm in 100 mls @ 25 mls/hr IV Q24H [facility] Stop: 09/16/18 11:59 Last Admin: 09/16/18 09:02 Dose: 25 mls/hr Albumin Human (Albumin 25%) 25 gm in 100 mls @ 25 mls/hr IV Q24H [facility] Stop: 09/16/18 15:59 Last Admin: 09/16/18 12:33 Dose: 25 mls/hr Potassium Chloride 40 meq/ (Premix) 100 mls @ 25 mls/hr IV ONETIME ONE Stop: 09/16/18 11:59 Last Admin: 09/16/18 08:02 Dose: 25 mls/hr Potassium Chloride 20 meq/ (Premix) 100 mls @ 50 mls/hr IV ONETIME ONE Stop: 09/16/18 13:59 Last Admin: 09/16/18 11:36 Dose: 50 mls/hr Potassium Chloride 40 meq/ (Premix) 100 mls @ 25 mls/hr IV ONETIME ONE Stop: 09/17/18 11:59 Last Admin: 09/17/18 08:43 Dose: 25 mls/hr Magnesium Sulfate 2 gm/ Premix 50 mls @ 25 mls/hr IV Q6H [facility] Stop: 09/19/18 05:59 Last Admin: 09/19/18 03:26 Dose: 25 mls/hr Potassium Chloride 40 meq/ (Premix) 100 mls @ 25 mls/hr IV ONETIME ONE Stop: 09/18/18 12:59 Last Admin: 09/18/18 08:34 Dose: 25 mls/hr Potassium Chloride 40 meq/ (Premix) 100 mls @ 25 mls/hr IV ONETIME ONE Stop: 09/19/18 11:59 Last Admin: 09/19/18 08:19 Dose: 25 mls/hr Potassium Chloride 20 meq/ (Premix) 100 mls @ 50 mls/hr IV ONETIME ONE Stop: 09/19/18 13:59 Last Admin: 09/19/18 11:05 Dose: 50 mls/hr Propofol (Diprivan 100 Ml) 100 mls @ 2.354 mls/hr IV TITRATE NAHED; Protocol Last Admin: 09/20/18 05:35 Dose: 15 mcg/kg/min, 7.062 mls/hr Multivitamins/Minerals 10 ml/Chromium/Copper/Manganese/Seleni/Zn 1 ml/ Amino Ac/ Electrol/Dextrose/Calcium 2,011 mls @ 100 mls/hr IV .BY DURATION NAHED Amino Ac/Electrol/Dextrose/Calcium (Clinimix E 5/20) 2,000 mls @ 100 mls/hr IV .BY DURATION NAHED Multivitamins/Minerals 10 ml/Chromium/Copper/Manganese/Seleni/Zn 1 ml/ Amino Ac/ Electrol/Dextrose/Calcium 2,011 mls @ 62 mls/hr IV .BY DURATION NAHED Stop: 09/21/18 16:50 Last Admin: 09/20/18 17:31 Dose: 62 mls/hr Amino Ac/Electrol/Dextrose/Calcium (Clinimix E 5/20) 2,000 mls @ 62 mls/hr IV .BY DURATION NAHED Stop: 09/21/18 16:50 Potassium Chloride 40 meq/ (Premix) 100 mls @ 25 mls/hr IV ONETIME ONE Stop: 09/21/18 12:59 Last Admin: 09/21/18 09:38 Dose: 25 mls/hr Potassium Phosphate 22.5 mmole (/ Sodium Chloride) 257.5 mls @ 86 mls/hr IV Q3H [facility] Stop: 09/22/18 20:59 Last Admin: 09/22/18 17:50 Dose: 86 mls/hr Iopamidol (Isovue-300 (61%)) 100 ml IV . DIRECTED PRN PRN Reason: RADIOLOGY EXAM Stop: 09/09/18 11:03 Last Admin: 09/08/18 14:16 Dose: 100 ml Lidocaine HCl (Xylocaine 2% Viscous) Confirm Administered Dose 15 ml .ROUTE .STK -MED ONE Stop: 09/12/18 11:15 Lidocaine HCl (Xylocaine 4% Top Soln) Confirm Administered Dose 50 ml .ROUTE .STK-MED ONE Stop: 09/12/18 11:15 Lidocaine HCl (Xylocaine 4% Top Soln) Confirm Administered Dose 50 ml .ROUTE .STK-MED ONE Stop: 09/14/18 06:57 Last Admin: 09/14/18 07:20 Dose: 20 ml Lidocaine HCl (Xylocaine-Mpf 1%) 5 ml INJECT ONETIME ONE Stop: 09/17/18 06:31 Last Admin: 09/17/18 06:52 Dose: 5 ml Lidocaine HCl (Xylocaine 2% Viscous) Confirm Administered Dose 15 ml .ROUTE .STK -MED ONE Stop: 09/20/18 06:37 Lidocaine HCl (Xylocaine 4% Top Soln) Confirm Administered Dose 50 ml .ROUTE .STK-MED ONE Stop: 09/20/18 06:38 Last Admin: 09/20/18 09:05 Dose: 50 ml Lidocaine/Epinephrine (Xylocaine 1% With Epinephrine 1:100,000) Confirm Administered Dose 50 ml .ROUTE .STK-MED ONE Stop: 09/07/18 06:48 Last Admin: 09/07/18 10:54 Dose: 18 ml Lidocaine/Epinephrine (Xylocaine 1% With Epinephrine 1:100,000) Confirm Administered Dose 50 ml .ROUTE .STK-MED ONE Stop: 09/11/18 09:07 Last Admin: 09/11/18 10:49 Dose: 2 ml Lidocaine/Epinephrine (Xylocaine 1% With Epinephrine 1:100,000) Confirm Administered Dose 50 ml .ROUTE .STK-MED ONE Stop: 09/20/18 06:38 Lorazepam (Ativan) 0.5 mg IVPUSH Q4H PRN PRN Reason: Nausea/Vomiting Lorazepam (Ativan) 0.5 mg IVPUSH Q3H PRN PRN Reason: AGITATION Last Admin: 09/18/18 13:47 Dose: 0.5 mg Meropenem (Merrem) Confirm Administered Dose 1,000 mg .ROUTE .STK-MED ONE Stop: 09/03/18 17:54 Last Admin: 09/03/18 18:32 Dose: 3,500 mg Meropenem (Merrem) Confirm Administered Dose 1,000 mg .ROUTE .STK-MED ONE Stop: 09/03/18 18:04 Meropenem (Merrem) Confirm Administered Dose 2,000 mg .ROUTE .STK-MED ONE Stop: 09/03/18 18:18 Meropenem (Merrem) Confirm Administered Dose 500 mg .ROUTE .STK-MED ONE Stop: 09/07/18 06:48 Last Admin: 09/07/18 10:53 Dose: 500 mg Metoprolol Tartrate (Lopressor) 25 mg PO ONETIME ONE Stop: 09/03/18 10:41 Last Admin: 09/03/18 11:00 Dose: 25 mg Metoprolol Tartrate (Lopressor) 5 mg IVPUSH Q6H [facility] Last Admin: 09/08/18 09:25 Dose: 5 mg Metoprolol Tartrate (Lopressor) 2.5 mg IVPUSH Q6H [facility] Last Admin: 09/10/18 03:55 Dose: 2.5 mg Metoprolol Tartrate (Lopressor) Confirm Administered Dose 5 mg .ROUTE .STK-MED ONE Stop: 09/08/18 21:53 Last Admin: 09/08/18 22:19 Dose: Not Given Metoprolol Tartrate (Lopressor) 2.5 mg IVPUSH Q4H [facility] Last Admin: 09/11/18 21:25 Dose: Not Given Morphine Sulfate (Morphine) 2 mg IVPUSH Q1H PRN PRN Reason: Anxiety Last Admin: 09/19/18 16:04 Dose: 2 mg Naloxone HCl (Narcan) 0.1 mg IV ASDIRECTED PRN PRN Reason: decreased respiratory rate Neostigmine Methylsulfate (Neostigmine) Confirm Administered Dose 5 mg .ROUTE .STK-MED ONE Stop: 09/03/18 14:41 Neostigmine Methylsulfate (Neostigmine) Confirm Administered Dose 5 mg .ROUTE .STK-MED ONE Stop: 09/04/18 09:47 Non-Formulary Medication (Total Parenteral Nutrition, Central) 0 ml IV ASDIRECTED NAH[facility] Stop: 09/12/18 13:31 Non-Formulary Medication (Total Parenteral Nutrition, Central) 0 ml IV ASDIRECTED NAHED Stop: 09/13/18 13:00 Ondansetron HCl (Zofran Odt) 4 mg PO Q6H PRN PRN Reason: Nausea able to take PO Ondansetron HCl (Zofran) 4 mg IV Q6H PRN PRN Reason: Nausea/Vomiting Ondansetron HCl (Zofran) Confirm Administered Dose 4 mg .ROUTE .STK-MED ONE Stop: 09/03/18 14:41 Ondansetron HCl (Zofran) Confirm Administered Dose 4 mg .ROUTE .STK-MED ONE Stop: 09/04/18 09:47 Pantoprazole Sodium (Protonix Iv) 40 mg IV Q12H [facility] Last Admin: 09/03/18 16:07 Dose: 40 mg Pantoprazole Sodium (Protonix Iv) 40 mg IV Q24H [facility] Last Admin: 09/22/18 22:21 Dose: 40 mg Piperacillin Sod/Tazobactam Sod (Zosyn) 10.125 gm .XX ASDIRECTED [facility] Stop: 09/04/18 15:00 Last Admin: 09/04/18 14:04 Dose: 10.125 gm Propofol (Diprivan 20 Ml) Confirm Administered Dose 200 mg .ROUTE .ST-MED ONE Stop: 09/03/18 14:41 Propofol (Diprivan 20 Ml) Confirm Administered Dose 200 mg .ROUTE .STK-MED ONE Stop: 09/04/18 09:47 Propofol (Diprivan 20 Ml) Confirm Administered Dose 200 mg .ROUTE .STK-MED ONE Stop: 09/06/18 07:01 Propofol (Diprivan 20 Ml) Confirm Administered Dose 200 mg .ROUTE .STK-MED ONE Stop: 09/19/18 14:22 Rocuronium [place] (Zemuron) Confirm Administered Dose 50 mg .ROUTE .STK-MED ONE Stop: 09/03/18 14:41 Rocuronium [place] (Zemuron) Confirm Administered Dose 50 mg .ROUTE .STK-MED ONE Stop: 09/04/18 09:47 Rocuronium [place] (Zemuron) Confirm Administered Dose 50 mg .ROUTE .STK-MED ONE Stop: 09/20/18 07:50 Succinylcholine Chloride (Quelicin) Confirm Administered Dose 200 mg .ROUTE .STK -MED ONE Stop: 09/03/18 14:41 Succinylcholine Chloride (Quelicin) Confirm Administered Dose 200 mg .ROUTE .STK -MED ONE Stop: 09/04/18 09:47 Succinylcholine Chloride (Quelicin) Confirm Administered Dose 200 mg .ROUTE .STK -MED ONE Stop: 09/06/18 07:01 - Exam General: Sedated Lungs: Normal Respiratory Effort, Decreased Breath Sounds Cardiovascular: Regular Rate, Regular Rhythm GI/Abdominal Exam: Soft, No Distention Extremities: Other (mild edema) Wound/Incisions: Healing Well, Other (steri strips in place ) - Problem List Review Problem List Initiated/Reviewed/Updated: Yes - Assessment Assessment:: 1. 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 Exploratory laparotomy with a. sigmoid colon resection with end colotomy plus Rosa procedure b. drainage of pericolonic abscess plus diffuse peritoneal cavity washout c. small bowel resection Date of procedure: 09/03/2018, Surgeon Christiano Estrada MD 3.Indication of central venous access 4. Diffuse feculent perforation with second look laparotomy showing: a. pelvic right subphrenic with fluid collection b. segment small bowel with increasing necrosis adjacent mesentery 5. Insertion Left subclavian triple-lumen catheter 6. Second look laparotomy with: a. drainage peritoneal inflammatory fluid collection b. drainage right subphrenic inflammatory fluid collection d. plus small bowel resection 7. Date of procedure: 09/04/2018, Surgeon, Christiano Estrada MD 8. Hypoalbuminemia 9. Ventilator dependence: remains ventilator dependent 10. SP Bronchoscopy. Bony Olson MD on 09/12/2018 11. Large volume mucoid pulmonary secretions, cleaned by bronchoscopy; scant 12. Bronchial sputum culture: yeast isolated 13. Hypomagnesemia 14. Permanent ventilator dependence with: I. Placement of percutaneous 8 Telugu tracheostomy tube. Date of surgery 09/20. Surgeon, Christiano Estrada MD 16. Hyperkalemia - Plan Plan:: 1. Placement of central double lumen PICC line today, 09/24/2018. Surgeon: Christiano Estrada MD. 2. After placement of PICC line, restart TPN at same rate and content 3. Administer Lasix 40 mg IV push now and repeat in 8 hours to facilitate diuresis 4. AM labs: CBC, CMP, Mg, ABG, Phosphorous and BNP 5. Ventilator weaning as tolerated 6. May benefit from transfer to a termite treater critical care facility in the near future 7. Administer Potassium Phosphorous 45 millimoles IV piggyback today 8. Administer Potassium Chloride 40 milliequivalents, IV piggyback today 9. Recheck in AM or as needed
[2018-09-24] MEDS: Albuterol/Ipratropium 3.0-0.5 MG/3 ML Neb Soln NEB SCH ×4 (07:38→21:36)
[2018-09-24] MEDS ORDERED: Dextrose 5%-Lactated Ringers 1,000 ML IV SCH (07:45)
[2018-09-24] MEDS ORDERED: Furosemide 40 MG/4 ML VIAL IV ONE ×2 (08:00→16:00)
[2018-09-24] MEDS ORDERED: Potassium Chloride Riders 40 MEQ in Premix Bag 1 BAG IV ONE ×2 (09:00→14:00)
[2018-09-24] MEDS: Metoprolol Tartrate 25 MG Tab PO SCH ×2 (09:32→21:13)
[2018-09-24] MEDS: Citalopram 20 MG Tab PO SCH (09:32)
--- NOTE | 2018-09-24 10:07 | PCM.PN ---
- General Info Date of Service: 09/24/18 Subjective Update: Ms. Muniz is remaining fairly stable since yesterday, respiratory status is good and somewhat improved with further diuresis. She seems to be slowly regaining strength on a daily basis although still remains very weak and continues to require mechanical ventilation. Still remains somewhat lethargic with minimal interaction. Unable to provide meaningful information concerning symptoms or review of systems because of tracheostomy and weakness - Patient Data Vitals - Most Recent: Last Vital Signs Temp 97.8 F 09/24/18 08:00 Pulse 80 09/24/18 10:00 Resp 16 09/24/18 10:00 BP 147/55 H 09/24/18 10:00 Pulse Ox 98 09/24/18 10:00 Weight - Most Recent: 165 lb I&O - Last 24 Hours: Intake & Output 09/23/18 09/24/18 09/24/18 22:59 06:59 14:59 Intake Total 1194 1014 Output Total 1550 1725 350 Balance -356 -721 350 Lab Results Last 24 Hours: Laboratory Results - last 24 hr 09/24/18 09/24/18 09/24/18 Range/Units 05:00 05:00 05:00 WBC 8.3 (4.5-11.0) K/uL RBC 3.54 (3.30-5.50) M/uL Hgb 11.2 L (12.0-15.0) g/dL Hct 33.4 L (36.0-48.0) % MCV 94 (80-98) fL MCH 32 H (27-31) pg MCHC 34 (32-36) % Plt Count 155 (150-400) K/uL Neut % (Auto) 74 H (36-66) % Lymph % (Auto) 5 L (24-44) % Crosby % (Auto) 13 H (2-6) % Eos % (Auto) 7 H (2-4) % Baso % (Auto) 1 (0-1) % Puncture Site R brachial ABG pH 7.610 H* (7.350-7.450) ABG pCO2 28.7 L (35.0-42.0) mmHg ABG pO2 144.0 H (75.0-100.0) mmHg ABG HCO3 29.0 H (22.0-26.0) mmol/L ABG Total CO2 25.5 H (21.0-25.0) mmol/L ABG O2 Saturation 99.2 H (95.0-98.0) % ABG O2 Content 15.8 (15.0-23.0) %vol ABG Base Excess 7.6 mm/L ABG Hemoglobin 11.4 L (12.0-16.0) g/dL ABG Oxyhemoglobin 96.7 % ABG Carboxyhemoglobin 1.9 H (0.0-1.6) % ABG Methemoglobin 0.6 % O2 Delivery Device Ventilator Oxygen Flow Rate L Sodium 141 (140-148) mmol/L Potassium 3.0 L (3.6-5.2) mmol/L Chloride 103 (100-108) mmol/L Carbon Dioxide 31 (21-32) mmol/L Anion Gap 10.0 (5.0-14.0) mmol/L BUN 45 H (7-18) mg/dL Creatinine 0.9 (0.6-1.0) mg/dL Est Cr Clr Drug Dosing 39.01 mL/min Estimated GFR (MDRD) > 60 (>60) Glucose 90 (74-106) mg/dL Calcium 10.2 H (8.5-10.1) mg/dL Phosphorus 3.9 (2.5-4.9) mg/dL Magnesium 2.9 H D (1.8-2.4) mg/dL Total Bilirubin 1.1 H (0.2-1.0) mg/dL AST 179 H (15-37) U/L ALT 280 H (12-78) U/L Alkaline Phosphatase 401 H (46-116) U/L NT-Pro-B Natriuret Pep 5334 H (5-450) pg/mL Total Protein 6.6 (6.4-8.2) g/dL Albumin 2.3 L (3.4-5.0) g/dL Globulin 4.3 H (2.3-3.5) g/dL Albumin/Globulin Ratio 0.5 L (1.2-2.2) 09/24/18 Range/Units 05:24 WBC (4.5-11.0) K/uL RBC (3.30-5.50) M/uL Hgb (12.0-15.0) g/dL Hct (36.0-48.0) % MCV (80-98) fL MCH (27-31) pg MCHC (32-36) % Plt Count (150-400) K/uL Neut % (Auto) (36-66) % Lymph % (Auto) (24-44) % Crosby % (Auto) (2-6) % Eos % (Auto) (2-4) % Baso % (Auto) (0-1) % Puncture Site R brachial ABG pH 7.544 H (7.350-7.450) ABG pCO2 35.4 (35.0-42.0) mmHg ABG pO2 104.0 H (75.0-100.0) mmHg ABG HCO3 30.5 H (22.0-26.0) mmol/L ABG Total CO2 27.1 H (21.0-25.0) mmol/L ABG O2 Saturation 98.2 H (95.0-98.0) % ABG O2 Content 15.7 (15.0-23.0) %vol ABG Base Excess 7.7 mm/L ABG Hemoglobin 11.4 L (12.0-16.0) g/dL ABG Oxyhemoglobin 97.2 % ABG Carboxyhemoglobin 0.5 (0.0-1.6) % ABG Methemoglobin 0.5 % O2 Delivery Device Ventilator Oxygen Flow Rate L Sodium (140-148) mmol/L Potassium (3.6-5.2) mmol/L Chloride (100-108) mmol/L Carbon Dioxide (21-32) mmol/L Anion Gap (5.0-14.0) mmol/L BUN (7-18) mg/dL Creatinine (0.6-1.0) mg/dL Est Cr Clr Drug Dosing mL/min Estimated GFR (MDRD) (>60) Glucose (74-106) mg/dL Calcium (8.5-10.1) mg/dL Phosphorus (2.5-4.9) mg/dL Magnesium (1.8-2.4) mg/dL Total Bilirubin (0.2-1.0) mg/dL AST (15-37) U/L ALT (12-78) U/L Alkaline Phosphatase (46-116) U/L NT-Pro-B Natriuret Pep (5-450) pg/mL Total Protein (6.4-8.2) g/dL Albumin (3.4-5.0) g/dL Globulin (2.3-3.5) g/dL Albumin/Globulin Ratio (1.2-2.2) Med Orders - Current: Current Medications Albuterol (Proventil Neb Soln) 2.5 mg NEB Q4H PRN PRN Reason: Dyspnea Albuterol/Ipratropium (Duoneb 3.0-0.5 Mg/3 Ml) 3 ml NEB QIDRT NAHED Last Admin: 09/24/18 07:38 Dose: 3 ml Citalopram Hydrobromide (Celexa) 20 mg PO DAILY [facility] Last Admin: 09/24/18 09:32 Dose: 20 mg Dimethicone/Zinc Oxide (Rash Relief-Zinc Oxide [place]) 0 gm TOP ASDIRECTED PRN PRN Reason: Inflammation Last Admin: 09/21/18 15:28 Dose: 2 spray Furosemide (Lasix) 40 mg IV ONETIME ONE Stop: 09/24/18 16:01 Hydralazine HCl (Apresoline) 5 mg IVPUSH Q4H PRN PRN Reason: Hypertension Last Admin: 09/19/18 13:41 Dose: 5 mg Hydromorphone HCl (Dilaudid) 0.5 mg IVPUSH Q2H PRN PRN Reason: Pain Last Admin: 09/23/18 23:51 Dose: 0.5 mg Hydroxyzine HCl (Vistaril) 50 mg IM Q4H PRN PRN Reason: Pain Heparin Sodium (Porcine) 5,000 (units/ Sodium Chloride) 501 mls @ 5 mls/hr IV ASDIRECTED [facility] Last Admin: 09/22/18 14:59 Dose: 5 mls/hr Lactated Ringer's (Ringers, Lactated) 1,000 mls @ 25 mls/hr IV ASDIRECTED [facility] Last Admin: 09/18/18 21:11 Dose: 25 mls/hr Fluconazole/Sodium Chloride (400 mg/ Premix) 200 mls @ 100 mls/hr IV Q24H [facility] Last Admin: 09/23/18 19:28 Dose: 100 mls/hr Multivitamins/Minerals 10 ml/Chromium/Copper/Manganese/Seleni/Zn 1 ml/ Amino Ac/ Electrol/Dextrose/Calcium 2,011 mls @ 62 mls/hr IV .BY DURATION [facility] Last Admin: 09/23/18 16:06 Dose: 62 mls/hr Amino Ac/Electrol/Dextrose/Calcium (Clinimix E 5/20) 2,000 mls @ 62 mls/hr IV .BY DURATION [facility] Magnesium Sulfate 2 gm/ Premix 50 mls @ 25 mls/hr IV Q6H [facility] Stop: 09/25/18 05:59 Last Admin: 09/24/18 04:50 Dose: 25 mls/hr Dextrose/Lactated Ringer's (Dextrose 5%-Lactated Ringers) 1,000 mls @ 40 mls/ hr IV ASDIRECTED [facility] Last Admin: 09/24/18 07:51 Dose: 40 mls/hr Potassium Chloride 40 meq/ (Premix) 100 mls @ 25 mls/hr IV ONETIME ONE Stop: 09/24/18 17:59 Potassium Phosphate 22.5 mmole (/ Sodium Chloride) 107.5 mls @ 27 mls/hr IV Q4H [facility] Stop: 09/25/18 01:59 Lorazepam (Ativan) 0.5 mg IVPUSH Q1H PRN PRN Reason: Anxiety Last Admin: 09/23/18 07:29 Dose: 0.5 mg Metoprolol Tartrate (Lopressor) 2.5 mg IVPUSH Q4H PRN PRN Reason: Hypertension Last Admin: 09/19/18 11:44 Dose: 2.5 mg Metoprolol Tartrate (Lopressor) 25 mg PO Q12H [facility] Last Admin: 09/24/18 09:32 Dose: 25 mg Nystatin (Nystop) 0 gm TOP QID [facility] Pantoprazole Sodium (Protonix) 40 mg PO BEDTIME [facility] Last Admin: 09/23/18 21:13 Dose: 40 mg Potassium Chloride (Klor-Con M20) 40 meq PO ONETIME ONE Stop: 09/24/18 10:06 Discontinued Medications Acetaminophen (Tylenol) 650 mg PO Q4H PRN PRN Reason: Pain (Mild 1-3)/fever Acetaminophen (Tylenol) 650 mg RECTAL Q4H PRN PRN Reason: Mild pain/fever Acetylcysteine (Mucomyst 20%) 200 mg NEB QIDRT [facility] Last Admin: 09/20/18 07:00 Dose: 200 mg Albuterol (Proventil Neb Soln) 2.5 mg NEB Q4H PRN PRN Reason: Shortness Of Breath/wheezing Albuterol/Ipratropium (Duoneb 3.0-0.5 Mg/3 Ml) 3 ml INH PREPRO ONE Stop: 09/03/18 17:01 Last Admin: 09/03/18 16:25 Dose: 3 ml Albuterol/Ipratropium (Duoneb 3.0-0.5 Mg/3 Ml) 3 ml NEB QID [facility] Last Admin: 09/13/18 21:11 Dose: 3 ml Aztreonam (Azactam) Confirm Administered Dose 1 gm .ROUTE .STK-MED ONE Stop: 09/03/18 21:44 Last Admin: 09/03/18 22:15 Dose: Not Given Benazepril HCl (Lotensin) 40 mg PO ONETIME ONE Stop: 09/03/18 10:41 Last Admin: 09/03/18 11:00 Dose: 40 mg Benazepril HCl (Lotensin) 40 mg NGTUBE DAILY [facility] Last Admin: 09/20/18 09:55 Dose: Not Given Bupivacaine HCl (Marcaine 0.5%) Confirm Administered Dose 50 ml .ROUTE .STK-MED ONE Stop: 09/07/18 06:48 Last Admin: 09/07/18 10:53 Dose: 18 ml Bupivacaine HCl (Marcaine 0.5%) Confirm Administered Dose 50 ml .ROUTE .STK-MED ONE Stop: 09/11/18 09:07 Last Admin: 09/11/18 10:49 Dose: 2 ml Ropivacaine 22 ml/Dexamethasone 8 mg/Epinephrine HCl 0.4 mg/ Sodium Chloride 55.6 ml 0 ml NERVRT ASDIRECTED [facility] Ropivacaine 22 ml/Dexamethasone 8 mg/Epinephrine HCl 0.4 mg/ Sodium Chloride 55.6 ml 0 ml NERVRT ASDIRECTED [facility] Last Admin: 09/04/18 14:03 Dose: 80 syringe Ropivacaine 22 ml/Dexamethasone 8 mg/Epinephrine HCl 0.4 mg/ Sodium Chloride 55.6 ml 0 ml NERVRT ASDIRECTED [facility] Last Admin: 09/07/18 11:07 Dose: 80 syringe Dexamethasone (Dexamethasone) Confirm Administered Dose 4 mg .ROUTE .STK-MED ONE Stop: 09/03/18 14:41 Dexamethasone (Dexamethasone) Confirm Administered Dose 4 mg .ROUTE .STK-MED ONE Stop: 09/04/18 09:47 Fentanyl (Sublimaze) 25 mcg IVPUSH ONETIME ONE Stop: 09/03/18 13:57 Last Admin: 09/03/18 14:16 Dose: 25 mcg Fentanyl (Sublimaze) 25 mcg IVPUSH Q2H PRN PRN Reason: Pain (severe 7-10) Fentanyl (Sublimaze) Confirm Administered Dose 250 mcg .ROUTE .STK-MED ONE Stop: 09/03/18 14:41 Fentanyl (Sublimaze) Confirm Administered Dose 250 mcg .ROUTE .STK-MED ONE Stop: 09/04/18 09:46 Fentanyl (Sublimaze) Confirm Administered Dose 250 mcg .ROUTE .STK-MED ONE Stop: 09/04/18 13:57 Fentanyl (Sublimaze) Confirm Administered Dose 100 mcg .ROUTE .STK-MED ONE Stop: 09/11/18 10:36 Fentanyl (Sublimaze) Confirm Administered Dose 250 mcg .ROUTE .STK-MED ONE Stop: 09/20/18 07:50 Furosemide (Lasix) 20 mg IVPUSH ONETIME ONE Stop: 09/04/18 15:10 Last Admin: 09/04/18 15:18 Dose: 20 mg Furosemide (Lasix) 40 mg IV ONETIME ONE Stop: 09/06/18 08:16 Last Admin: 09/06/18 08:26 Dose: 40 mg Furosemide (Lasix) 20 mg IV Q12H [facility] Stop: 09/07/18 20:01 Last Admin: 09/07/18 20:10 Dose: 20 mg Furosemide (Lasix) 20 mg IVPUSH Q12H [facility] Stop: 09/08/18 19:01 Last Admin: 09/08/18 19:50 Dose: 20 mg Furosemide (Lasix) 20 mg IVPUSH ONETIME ONE Stop: 09/09/18 07:01 Last Admin: 09/09/18 08:14 Dose: 20 mg Furosemide (Lasix) 20 mg IVPUSH ONETIME ONE Stop: 09/09/18 11:01 Last Admin: 09/09/18 12:38 Dose: 20 mg Furosemide (Lasix) 20 mg IVPUSH ONETIME ONE Stop: 09/09/18 20:01 Furosemide (Lasix) 20 mg IV Q8H [facility] Stop: 09/11/18 00:31 Last Admin: 09/10/18 23:50 Dose: 20 mg Furosemide (Lasix) 20 mg IV Q8H [facility] Stop: 09/12/18 00:01 Last Admin: 09/11/18 23:34 Dose: 20 mg Furosemide (Lasix) 20 mg IVPUSH Q8H [facility] Stop: 09/13/18 02:31 Last Admin: 09/13/18 02:39 Dose: 20 mg Furosemide (Lasix) 20 mg IVPUSH Q8H [facility] Stop: 09/14/18 02:31 Last Admin: 09/14/18 02:29 Dose: 20 mg Furosemide (Lasix) 40 mg IVPUSH ONETIME ONE Stop: 09/14/18 10:01 Last Admin: 09/14/18 13:28 Dose: 40 mg Furosemide (Lasix) 20 mg IVPUSH BID [facility] Furosemide (Lasix) 20 mg IVPUSH ONETIME ONE Stop: 09/15/18 06:34 Last Admin: 09/15/18 06:48 Dose: 20 mg Furosemide (Lasix) 40 mg IVPUSH Q8H [facility] Stop: 09/15/18 20:31 Last Admin: 09/15/18 20:39 Dose: 40 mg Furosemide (Lasix) 40 mg IV BID [facility] Stop: 09/16/18 21:01 Last Admin: 09/16/18 21:19 Dose: 40 mg Furosemide (Lasix) 40 mg IV Q12H [facility] Stop: 09/17/18 21:01 Last Admin: 09/17/18 21:11 Dose: 40 mg Furosemide (Lasix) 40 mg IV Q8H NAHED Stop: 09/18/18 16:01 Last Admin: 09/18/18 16:00 Dose: 40 mg Furosemide (Lasix) 40 mg IV Q12H NAHED Stop: 09/19/18 20:01 Last Admin: 09/19/18 19:23 Dose: 40 mg Furosemide (Lasix) 20 mg IVPUSH Q12H [facility] Stop: 09/20/18 22:01 Last Admin: 09/20/18 21:52 Dose: 20 mg Furosemide (Lasix) 20 mg IVPUSH Q8H NAHED Stop: 09/21/18 20:01 Last Admin: 09/21/18 19:37 Dose: 20 mg Furosemide (Lasix) 20 mg IVPUSH Q6H NAHED Stop: 09/22/18 14:01 Last Admin: 09/22/18 13:54 Dose: 20 mg Furosemide (Lasix) Confirm Administered Dose 40 mg .ROUTE .[facility] ONE Stop: 09/23/18 06:19 Last Admin: 09/23/18 07:04 Dose: Not Given Furosemide (Lasix) 40 mg IVPUSH ONETIME ONE Stop: 09/23/18 06:21 Last Admin: 09/23/18 06:15 Dose: 40 mg Furosemide (Lasix) 40 mg IV ONETIME ONE Stop: 09/23/18 14:31 Last Admin: 09/23/18 14:05 Dose: 40 mg Furosemide (Lasix) 40 mg IVPUSH NOW ONE Stop: 09/23/18 18:01 Last Admin: 09/23/18 17:12 Dose: 40 mg Furosemide (Lasix) 40 mg IV NOW ONE Stop: 09/24/18 08:01 Last Admin: 09/24/18 07:57 Dose: 40 mg Gentamicin Sulfate (Gentamicin) 1 mg IV .Pharmacy to Dose NAHED Stop: 09/08/18 14:31 Glycopyrrolate (Robinul) Confirm Administered Dose 1 mg .ROUTE .[facility] ONE Stop: 09/03/18 14:41 Glycopyrrolate (Robinul) Confirm Administered Dose 1 mg .ROUTE .[facility] ONE Stop: 09/04/18 09:47 Heparin Sodium (Porcine) (Heparin Sodium) Confirm Administered Dose 5,000 units .ROUTE .[facility] ONE Stop: 09/03/18 18:32 Heparin Sodium (Porcine) (Heparin Lock Flush 100 Units/Ml) Confirm Administered Dose 500 units .ROUTE .[facility] ONE Stop: 09/04/18 13:14 Heparin Sodium (Porcine) (Heparin Lock Flush 100 Units/Ml) Confirm Administered Dose 1,000 units .ROUTE .[facility] ONE Stop: 09/11/18 09:07 Last Admin: 09/11/18 10:58 Dose: 1,000 units Heparin Sodium (Porcine) (Heparin Lock Flush 100 Units/Ml) Confirm Administered Dose 500 units .ROUTE .[facility] ONE Stop: 09/11/18 10:44 Last Admin: 09/11/18 10:58 Dose: 500 units Hydromorphone HCl (Dilaudid) 0.5 mg IVPUSH ONETIME ONE Stop: 09/03/18 10:48 Last Admin: 09/03/18 11:00 Dose: 0.5 mg Hydromorphone HCl (Dilaudid) 0.5 mg IVPUSH ONETIME ONE Stop: 09/03/18 11:22 Last Admin: 09/03/18 11:25 Dose: 0.5 mg Hydromorphone HCl (Dilaudid) 0.5 mg IVPUSH ONETIME ONE Stop: 09/03/18 12:10 Last Admin: 09/03/18 12:12 Dose: 0.5 mg Hydromorphone HCl (Dilaudid) 0.5 mg IVPUSH ONETIME ONE Stop: 09/03/18 12:40 Last Admin: 09/03/18 12:44 Dose: 0.5 mg Hydromorphone HCl (Dilaudid) 1 mg IVPUSH ONETIME ONE Stop: 09/03/18 12:57 Last Admin: 09/03/18 13:00 Dose: 1 mg Hydromorphone HCl (Dilaudid [employer] 15 Mg In Ns 30 Ml) 0 mg IV ASDIRECTED PRN; Protocol PRN Reason: 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 Last Admin: 09/09/18 05:52 Dose: 15 mg Sodium Chloride (Normal Saline) 1,000 mls @ 1,000 mls/hr IV .BOLUS ONE Stop: 09/03/18 12:17 Last Admin: 09/03/18 11:25 Dose: 1,000 mls/hr Piperacillin/Tazobactam/ (Dextrose 4.5 gm/ Premix) 100 mls @ 200 mls/hr IV ONETIME ONE Stop: 09/03/18 13:29 Last Admin: 09/03/18 13:04 Dose: 200 mls/hr Sodium Chloride (Normal Saline) 1,000 mls @ 500 mls/hr IV ASDIRECTED [facility] Last Admin: 09/03/18 13:00 Dose: 500 mls/hr Lactated Ringer's (Ringers, Lactated) 1,000 mls @ 125 mls/hr IV ASDIRECTED NAHED Last Admin: 09/03/18 16:07 Dose: 125 mls/hr Aztreonam 2 gm/ Sodium (Chloride) 100 mls @ 200 mls/hr IV NOW ONE Stop: 09/03/18 15:29 Last Admin: 09/03/18 14:56 Dose: 200 mls/hr Meropenem 500 mg/ Sodium (Chloride) 50 mls @ 100 mls/hr IV ONCALL ONE Stop: 09/03/18 17:29 Last Admin: 09/03/18 16:25 Dose: 100 mls/hr Piperacillin/Tazobactam/ (Dextrose 3.375 gm/ Premix) 50 mls @ 100 mls/hr IV Q6H [facility] Last Admin: 09/03/18 22:15 Dose: Not Given Sodium Chloride (Normal Saline) Confirm Administered Dose 500 mls @ as directed .ROUTE .STK-MED ONE Stop: 09/03/18 18:33 Aztreonam/Dextrose 1 gm/ (Premix) 50 mls @ 100 mls/hr IV Q8HR NAHED Meropenem 500 mg/ Sodium (Chloride) 50 mls @ 100 mls/hr IV Q8H [facility] Last Admin: 09/10/18 05:17 Dose: 100 mls/hr Sodium Chloride (Normal Saline) Confirm Administered Dose 50 mls @ as directed .ROUTE .STK-MED ONE Stop: 09/03/18 22:01 Last Admin: 09/03/18 22:21 Dose: Not Given Aztreonam/Dextrose 1 gm/ (Premix) 50 mls @ 100 mls/hr IV Q8H [facility] Last Admin: 09/04/18 07:30 Dose: Not Given Dextrose/Lactated Ringer's (Dextrose 5%-Lactated Ringers) 1,000 mls @ 100 mls/ hr IV ASDIRECTED PRN PRN Reason: Hypotension Dextrose/Lactated Ringer's (Dextrose 5%-Lactated Ringers) 1,000 mls @ 100 mls/ hr IV ASDIRECTED [facility] Last Admin: 09/05/18 02:13 Dose: 100 mls/hr Lactated Ringer's (Ringers, Lactated) 1,000 mls @ 100 mls/hr IV ASDIRECTED [facility] Last Admin: 09/04/18 04:20 Dose: 100 mls/hr Lactated Ringer's (Ringers, Lactated) 500 mls @ 500 mls/hr IV .BOLUS [facility] Last Admin: 09/04/18 01:10 Dose: 500 mls/hr Lactated Ringer's (Ringers, Lactated) 500 mls @ 500 mls/hr IV .BOLUS NAHED Last Admin: 09/04/18 03:13 Dose: 500 mls/hr Propofol (Diprivan 100 Ml) 100 mls @ 1.361 mls/hr IV TITRATE NAHED; Protocol Last Titration: 09/04/18 07:52 Dose: 14 mcg/kg/min, 3.81 mls/hr Propofol (Diprivan 100 Ml) Confirm Administered Dose 100 mls @ as directed .ROUTE .[facility] ONE Stop: 09/04/18 03:45 Last Admin: 09/04/18 03:59 Dose: Not Given Lactated Ringer's (Ringers, Lactated) 500 mls @ 999 mls/hr IV .BOLUS NAHED Last Admin: 09/04/18 06:10 Dose: 999 mls/hr Aztreonam/Dextrose 1 gm/ (Premix) 50 mls @ 100 mls/hr IV Q8H NAHED Last Admin: 09/07/18 08:15 Dose: 100 mls/hr Lactated Ringer's (Ringers, Lactated) 500 mls @ 500 mls/hr IV ASDIRECTED [facility] Last Admin: 09/04/18 21:04 Dose: 500 mls/hr Lactated Ringer's (Ringers, Lactated) Confirm Administered Dose 1,000 mls @ as directed .ROUTE .[facility] ONE Stop: 09/04/18 13:11 Lactated Ringer's (Ringers, Lactated) Confirm Administered Dose 1,000 mls @ as directed .ROUTE .[facility] ONE Stop: 09/04/18 13:11 Sodium Chloride (Normal Saline) Confirm Administered Dose 10 mls @ as directed .ROUTE .[facility] ONE Stop: 09/04/18 13:15 Magnesium Sulfate 2 gm/ Premix 50 mls @ 25 mls/hr IV Q6H NAHED Stop: 09/06/18 11:59 Last Admin: 09/06/18 10:17 Dose: 25 mls/hr Lactated Ringer's (Ringers, Lactated) 500 mls @ 500 mls/hr IV ASDIRECTED [facility] Stop: 09/04/18 17:46 Heparin Sodium (Porcine) 5,000 (units/ Sodium Chloride) 501 mls @ 5 mls/hr IV ASDIRECTED [facility] Last Admin: 09/22/18 12:58 Dose: 5 mls/hr Lactated Ringer's (Ringers, Lactated) 500 mls @ 500 mls/hr IV ONETIME ONE Stop: 09/04/18 19:29 Last Admin: 09/04/18 18:37 Dose: 500 mls/hr Lactated Ringer's (Ringers, Lactated) 500 mls @ 1,000 mls/hr IV ONETIME ONE Stop: 09/04/18 23:30 Last Admin: 09/04/18 23:18 Dose: 1,000 mls/hr Lactated Ringer's (Ringers, Lactated) 500 mls @ 1,000 mls/hr IV ONETIME ONE Stop: 09/05/18 01:44 Last Admin: 09/05/18 01:15 Dose: 1,000 mls/hr Lactated Ringer's (Ringers, Lactated) 1,000 mls @ 150 mls/hr IV ASDIRECTED [facility] Last Admin: 09/05/18 02:13 Dose: 150 mls/hr Lactated Ringer's (Ringers, Lactated) 500 mls @ 1,000 mls/hr IV ONETIME ONE Stop: 09/05/18 03:38 Last Admin: 09/05/18 03:15 Dose: 1,000 mls/hr Multivitamins/Minerals 10 ml/Chromium/Copper/Manganese/Seleni/Zn 1 ml/ Amino Ac/ Electrol/Dextrose/Calcium 2,011 mls @ 82 mls/hr IV .BY DURATION [facility] Stop: 09/05/18 13:25 Last Admin: 09/05/18 13:32 Dose: Not Given Amino Ac/Electrol/Dextrose/Calcium (Clinimix E 09/23) 2,000 mls @ 82 mls/hr IV .BY DURATION [facility] Stop: 09/05/18 13:25 Vancomycin HCl 1 gm/ Sodium (Chloride) 250 mls @ 167 mls/hr IV Q24H [facility] Last Admin: 09/05/18 12:34 Dose: 167 mls/hr Sodium Chloride (Normal Saline) 1,000 mls @ 50 mls/hr IV ASDIRECTED [facility] Last Admin: 09/05/18 12:51 Dose: 50 mls/hr Multivitamins/Minerals 10 ml/Chromium/Copper/Manganese/Seleni/Zn 1 ml/ Amino Ac/ Electrol/Dextrose/Calcium 2,011 mls @ 82 mls/hr IV .BY DURATION NAHED Stop: 09/08/18 13:20 Last Admin: 09/07/18 15:09 Dose: 82 mls/hr Amino Ac/Electrol/Dextrose/Calcium (Clinimix E 09/23) 2,000 mls @ 82 mls/hr IV .BY DURATION NAHED Stop: 09/08/18 13:20 Vancomycin HCl 1 gm/ Sodium (Chloride) 250 mls @ 167 mls/hr IV Q24H NAHED Last Admin: 09/06/18 12:00 Dose: 167 mls/hr Sodium Chloride (Normal Saline) 500 mls @ 500 mls/hr IV ASDIRECTED ONE Stop: 09/05/18 16:29 Last Admin: 09/05/18 15:40 Dose: 500 mls/hr Sodium Chloride (Normal Saline) 1,000 mls @ 100 mls/hr IV ASDIRECTED NAHED Last Admin: 09/07/18 07:31 Dose: 100 mls/hr Propofol (Diprivan 100 Ml) 100 mls @ 1.361 mls/hr IV TITRATE NAHED; Protocol Last Titration: 09/17/18 03:30 Dose: 25 mcg/kg/min, 6.804 mls/hr Potassium Phosphate 20 mmole/ (Sodium Chloride) 106.6667 mls @ 35 mls/hr IV Q3H NAHED Stop: 09/07/18 17:29 Last Admin: 09/07/18 15:01 Dose: 35 mls/hr Albumin Human (Albumin 25%) 25 gm in 100 mls @ 25 mls/hr IV DAILY NAHED Stop: 09/09/18 12:59 Last Admin: 09/09/18 08:25 Dose: 25 mls/hr Albumin Human (Albumin 25%) 25 gm in 100 mls @ 25 mls/hr IV Q24H NAHED Stop: 09/09/18 17:59 Last Admin: 09/09/18 14:32 Dose: 25 mls/hr Sodium Chloride (Normal Saline) 1,000 mls @ 0 mls/hr IV ASDIRECTED NAHED Last Admin: 09/19/18 05:15 Dose: 12.5 mls/hr Aztreonam 1 gm/ Sodium (Chloride) 50 mls @ 100 mls/hr IV Q8H NAHED Last Admin: 09/08/18 09:41 Dose: 100 mls/hr Vancomycin HCl 1 gm/ Sodium (Chloride) 250 mls @ 167 mls/hr IV Q18H [facility] Last Admin: 09/09/18 18:42 Dose: 167 mls/hr Sodium Chloride (Normal Saline) 1,000 mls @ 999 mls/hr IV .BOLUS ONE Stop: 09/07/18 17:39 Last Admin: 09/07/18 17:26 Dose: 999 mls/hr Potassium Acetate 40 meq/ (Sodium Chloride) 120 mls @ 30 mls/hr IV ONETIME ONE Stop: 09/08/18 13:59 Last Admin: 09/08/18 09:44 Dose: 30 mls/hr Multivitamins/Minerals 10 ml/Chromium/Copper/Manganese/Seleni/Zn 1 ml/ Amino Ac/ Electrol/Dextrose/Calcium 1,011 mls @ 62 mls/hr IV .BY DURATION [facility] Stop: 09/20/18 17:00 Last Admin: 09/19/18 09:10 Dose: 62 mls/hr Amino Ac/Electrol/Dextrose/Calcium (Clinimix E 20) 1,000 mls @ 62 mls/hr IV .BY DURATION [facility] Stop: 09/20/18 17:00 Last Admin: 09/20/18 01:21 Dose: 62 mls/hr Sodium Chloride (Normal Saline) 100 mls @ 3 mls/sec IV ASDIRECTED [facility] Stop: 09/08/18 15:00 Last Admin: 09/08/18 14:17 Dose: 3 mls/sec Azithromycin 500 mg/ Sodium (Chloride) 250 mls @ 250 mls/hr IV Q24H [facility] Last Admin: 09/09/18 15:27 Dose: 250 mls/hr Gentamicin Sulfate 228 mg/ (Sodium Chloride) 105.7 mls @ 100 mls/hr IV ONETIME ONE Stop: 09/08/18 17:03 Last Admin: 09/08/18 16:19 Dose: 100 mls/hr Potassium Phosphate 15 mmole/ (Sodium Chloride) 105 mls @ 55 mls/hr IV Q2H [facility] Stop: 09/09/18 12:55 Last Admin: 09/09/18 15:27 Dose: 55 mls/hr Gentamicin Sulfate 228 mg/ (Sodium Chloride) 105.7 mls @ 100 mls/hr IV Q36H [facility] Last Admin: 09/10/18 03:55 Dose: 100 mls/hr Sodium Chloride (Normal Saline) 500 mls @ 999 mls/hr IV .BOLUS ONE Stop: 09/09/18 16:34 Last Admin: 09/09/18 16:18 Dose: 999 mls/hr Sodium Chloride (Normal Saline) 500 mls @ 999 mls/hr IV .BOLUS ONE Stop: 09/09/18 17:35 Last Admin: 09/09/18 17:18 Dose: 999 mls/hr Sodium Chloride (Normal Saline) 1,000 mls @ 125 mls/hr IV ASDIRECTED [facility] Last Admin: 09/10/18 01:41 Dose: 125 mls/hr Lactated Ringer's (Ringers, Lactated) 1,000 mls @ 125 mls/hr IV ASDIRECTED [facility] Last Admin: 09/11/18 01:06 Dose: 125 mls/hr Meropenem 500 mg/ Sodium (Chloride) 25 mls @ 50 mls/hr IV Q8H [facility] Last Admin: 09/20/18 13:05 Dose: 50 mls/hr Gentamicin Sulfate 228 mg/ (Sodium Chloride) 55.7 mls @ 55 mls/hr IV Q36H [facility] Last Admin: 09/14/18 16:49 Dose: 55 mls/hr Azithromycin 500 mg/ Dextrose/ (Water) 250 mls @ 250 mls/hr IV Q24H [facility] Stop: 09/17/18 17:00 Last Admin: 09/14/18 15:42 Dose: 250 mls/hr Vancomycin HCl 1 gm/ Dextrose/ (Water) 250 mls @ 167 mls/hr IV Q24H [facility] Last Admin: 09/13/18 17:48 Dose: 167 mls/hr Fluconazole/Sodium Chloride (200 mg/ Premix) 100 mls @ 100 mls/hr IV Q24H [facility] Last Admin: 09/15/18 20:38 Dose: 100 mls/hr Magnesium Sulfate 2 gm/ Premix 50 mls @ 25 mls/hr IV Q6H [facility] Stop: 09/13/18 05:59 Last Admin: 09/13/18 03:31 Dose: 25 mls/hr Potassium Phosphate 22.5 mmole (/ Dextrose/Water) 107.5 mls @ 27 mls/hr IV Q4H [facility] Stop: 09/11/18 17:29 Last Admin: 09/11/18 14:45 Dose: 27 mls/hr Lactated Ringer's (Ringers, Lactated) 1,000 mls @ 75 mls/hr IV ASDIRECTED [facility] Last Admin: 09/13/18 22:27 Dose: 75 mls/hr Sodium Chloride (Normal Saline) Confirm Administered Dose 10 mls @ as directed .ROUTE .STK-MED ONE Stop: 09/11/18 10:41 Potassium Chloride 40 meq/ (Premix) 100 mls @ 25 mls/hr IV ONETIME ONE Stop: 09/13/18 12:59 Last Admin: 09/13/18 09:31 Dose: 25 mls/hr Potassium Chloride 40 meq/ (Premix) 100 mls @ 25 mls/hr IV ONETIME ONE Stop: 09/13/18 17:59 Last Admin: 09/13/18 13:11 Dose: 25 mls/hr Albumin Human (Albumin 25%) 25 gm in 100 mls @ 25 mls/hr IV Q24H [facility] Stop: 09/16/18 11:59 Last Admin: 09/16/18 09:02 Dose: 25 mls/hr Albumin Human (Albumin 25%) 25 gm in 100 mls @ 25 mls/hr IV Q24H [facility] Stop: 09/16/18 15:59 Last Admin: 09/16/18 12:33 Dose: 25 mls/hr Potassium Chloride 40 meq/ (Premix) 100 mls @ 25 mls/hr IV ONETIME ONE Stop: 09/16/18 11:59 Last Admin: 09/16/18 08:02 Dose: 25 mls/hr Potassium Chloride 20 meq/ (Premix) 100 mls @ 50 mls/hr IV ONETIME ONE Stop: 09/16/18 13:59 Last Admin: 09/16/18 11:36 Dose: 50 mls/hr Potassium Chloride 40 meq/ (Premix) 100 mls @ 25 mls/hr IV ONETIME ONE Stop: 09/17/18 11:59 Last Admin: 09/17/18 08:43 Dose: 25 mls/hr Magnesium Sulfate 2 gm/ Premix 50 mls @ 25 mls/hr IV Q6H [facility] Stop: 09/19/18 05:59 Last Admin: 09/19/18 03:26 Dose: 25 mls/hr Potassium Chloride 40 meq/ (Premix) 100 mls @ 25 mls/hr IV ONETIME ONE Stop: 09/18/18 12:59 Last Admin: 09/18/18 08:34 Dose: 25 mls/hr Potassium Chloride 40 meq/ (Premix) 100 mls @ 25 mls/hr IV ONETIME ONE Stop: 09/19/18 11:59 Last Admin: 09/19/18 08:19 Dose: 25 mls/hr Potassium Chloride 20 meq/ (Premix) 100 mls @ 50 mls/hr IV ONETIME ONE Stop: 09/19/18 13:59 Last Admin: 09/19/18 11:05 Dose: 50 mls/hr Propofol (Diprivan 100 Ml) 100 mls @ 2.354 mls/hr IV TITRATE NAHED; Protocol Last Admin: 09/20/18 05:35 Dose: 15 mcg/kg/min, 7.062 mls/hr Multivitamins/Minerals 10 ml/Chromium/Copper/Manganese/Seleni/Zn 1 ml/ Amino Ac/ Electrol/Dextrose/Calcium 2,011 mls @ 100 mls/hr IV .BY DURATION NAHED Amino Ac/Electrol/Dextrose/Calcium (Clinimix E 5/20) 2,000 mls @ 100 mls/hr IV .BY DURATION NAHED Multivitamins/Minerals 10 ml/Chromium/Copper/Manganese/Seleni/Zn 1 ml/ Amino Ac/ Electrol/Dextrose/Calcium 2,011 mls @ 62 mls/hr IV .BY DURATION NAHED Stop: 09/21/18 16:50 Last Admin: 09/20/18 17:31 Dose: 62 mls/hr Amino Ac/Electrol/Dextrose/Calcium (Clinimix E 5/20) 2,000 mls @ 62 mls/hr IV .BY DURATION NAHED Stop: 09/21/18 16:50 Potassium Chloride 40 meq/ (Premix) 100 mls @ 25 mls/hr IV ONETIME ONE Stop: 09/21/18 12:59 Last Admin: 09/21/18 09:38 Dose: 25 mls/hr Potassium Phosphate 22.5 mmole (/ Sodium Chloride) 257.5 mls @ 86 mls/hr IV Q3H NAHED Stop: 09/22/18 20:59 Last Admin: 09/22/18 17:50 Dose: 86 mls/hr Potassium Chloride 40 meq/ (Premix) 100 mls @ 25 mls/hr IV ONETIME ONE Stop: 09/24/18 12:59 Iopamidol (Isovue-300 (61%)) 100 ml IV . DIRECTED PRN PRN Reason: RADIOLOGY EXAM Stop: 09/09/18 11:03 Last Admin: 09/08/18 14:16 Dose: 100 ml Ketoconazole (Nizoral 2% Crm) 0 gm TOP TID NAHED Last Admin: 09/23/18 21:13 Dose: 1 lotion Lidocaine HCl (Xylocaine 2% Viscous) Confirm Administered Dose 15 ml .ROUTE .STK -MED ONE Stop: 09/12/18 11:15 Lidocaine HCl (Xylocaine 4% Top Soln) Confirm Administered Dose 50 ml .ROUTE .STK-MED ONE Stop: 09/12/18 11:15 Lidocaine HCl (Xylocaine 4% Top Soln) Confirm Administered Dose 50 ml .ROUTE .STK-MED ONE Stop: 09/14/18 06:57 Last Admin: 09/14/18 07:20 Dose: 20 ml Lidocaine HCl (Xylocaine-Mpf 1%) 5 ml INJECT ONETIME ONE Stop: 09/17/18 06:31 Last Admin: 09/17/18 06:52 Dose: 5 ml Lidocaine HCl (Xylocaine 2% Viscous) Confirm Administered Dose 15 ml .ROUTE .STK -MED ONE Stop: 09/20/18 06:37 Lidocaine HCl (Xylocaine 4% Top Soln) Confirm Administered Dose 50 ml .ROUTE .STK-MED ONE Stop: 09/20/18 06:38 Last Admin: 09/20/18 09:05 Dose: 50 ml Lidocaine/Epinephrine (Xylocaine 1% With Epinephrine 1:100,000) Confirm Administered Dose 50 ml .ROUTE .STK-MED ONE Stop: 09/07/18 06:48 Last Admin: 09/07/18 10:54 Dose: 18 ml Lidocaine/Epinephrine (Xylocaine 1% With Epinephrine 1:100,000) Confirm Administered Dose 50 ml .ROUTE .STK-MED ONE Stop: 09/11/18 09:07 Last Admin: 09/11/18 10:49 Dose: 2 ml Lidocaine/Epinephrine (Xylocaine 1% With Epinephrine 1:100,000) Confirm Administered Dose 50 ml .ROUTE .STK-MED ONE Stop: 09/20/18 06:38 Lorazepam (Ativan) 0.5 mg IVPUSH Q4H PRN PRN Reason: Nausea/Vomiting Lorazepam (Ativan) 0.5 mg IVPUSH Q3H PRN PRN Reason: AGITATION Last Admin: 09/18/18 13:47 Dose: 0.5 mg Meropenem (Merrem) Confirm Administered Dose 1,000 mg .ROUTE .STK-MED ONE Stop: 09/03/18 17:54 Last Admin: 09/03/18 18:32 Dose: 3,500 mg Meropenem (Merrem) Confirm Administered Dose 1,000 mg .ROUTE .STK-MED ONE Stop: 09/03/18 18:04 Meropenem (Merrem) Confirm Administered Dose 2,000 mg .ROUTE .STK-MED ONE Stop: 09/03/18 18:18 Meropenem (Merrem) Confirm Administered Dose 500 mg .ROUTE .STK-MED ONE Stop: 09/07/18 06:48 Last Admin: 09/07/18 10:53 Dose: 500 mg Metoprolol Tartrate (Lopressor) 25 mg PO ONETIME ONE Stop: 09/03/18 10:41 Last Admin: 09/03/18 11:00 Dose: 25 mg Metoprolol Tartrate (Lopressor) 5 mg IVPUSH Q6H [facility] Last Admin: 09/08/18 09:25 Dose: 5 mg Metoprolol Tartrate (Lopressor) 2.5 mg IVPUSH Q6H [facility] Last Admin: 09/10/18 03:55 Dose: 2.5 mg Metoprolol Tartrate (Lopressor) Confirm Administered Dose 5 mg .ROUTE .STK-MED ONE Stop: 09/08/18 21:53 Last Admin: 09/08/18 22:19 Dose: Not Given Metoprolol Tartrate (Lopressor) 2.5 mg IVPUSH Q4H NAHED Last Admin: 09/11/18 21:25 Dose: Not Given Morphine Sulfate (Morphine) 2 mg IVPUSH Q1H PRN PRN Reason: Anxiety Last Admin: 09/19/18 16:04 Dose: 2 mg Naloxone HCl (Narcan) 0.1 mg IV ASDIRECTED PRN PRN Reason: decreased respiratory rate Neostigmine Methylsulfate (Neostigmine) Confirm Administered Dose 5 mg .ROUTE .STK-MED ONE Stop: 09/03/18 14:41 Neostigmine Methylsulfate (Neostigmine) Confirm Administered Dose 5 mg .ROUTE .STK-MED ONE Stop: 09/04/18 09:47 Non-Formulary Medication (Total Parenteral Nutrition, Central) [facility] Stop: 09/12/18 13:31 Non-Formulary Medication (Total Parenteral Nutrition, Central) 0 ml [facility] Stop: 09/13/18 13:00 Ondansetron HCl (Zofran Odt) 4 mg PO Q6H PRN PRN Reason: Nausea able to take PO Ondansetron HCl (Zofran) 4 mg IV Q6H PRN PRN Reason: Nausea/Vomiting Ondansetron HCl (Zofran) Confirm Administered Dose 4 mg .ROUTE .STK-MED ONE Stop: 09/03/18 14:41 Ondansetron HCl (Zofran) Confirm Administered Dose 4 mg .ROUTE .STK-MED ONE Stop: 09/04/18 09:47 Pantoprazole Sodium (Protonix Iv) 40 mg IV Q12H [facility] Last Admin: 09/03/18 16:07 Dose: 40 mg Pantoprazole Sodium (Protonix Iv) 40 mg IV Q24H [facility] Last Admin: 09/22/18 22:21 Dose: 40 mg Piperacillin Sod/Tazobactam Sod (Zosyn) 10.125 gm .[facility] Stop: 09/04/18 15:00 Last Admin: 09/04/18 14:04 Dose: 10.125 gm Propofol (Diprivan 20 Ml) Confirm Administered Dose 200 mg .ROUTE .STK-MED ONE Stop: 09/03/18 14:41 Propofol (Diprivan 20 Ml) Confirm Administered Dose 200 mg .ROUTE .STK-MED ONE Stop: 09/04/18 09:47 Propofol (Diprivan 20 Ml) Confirm Administered Dose 200 mg .ROUTE .STK-MED ONE Stop: 09/06/18 07:01 Propofol (Diprivan 20 Ml) Confirm Administered Dose 200 mg .ROUTE .STK-MED ONE Stop: 09/19/18 14:22 Rocuronium [place] (Zemuron) Confirm Administered Dose 50 mg .ROUTE .STK-MED ONE Stop: 09/03/18 14:41 Rocuronium [place] (Zemuron) Confirm Administered Dose 50 mg .ROUTE .STK-MED ONE Stop: 09/04/18 09:47 Rocuronium [place] (Zemuron) Confirm Administered Dose 50 mg .ROUTE .STK-MED ONE Stop: 09/20/18 07:50 Succinylcholine Chloride (Quelicin) Confirm Administered Dose 200 mg .ROUTE .STK -MED ONE Stop: 09/03/18 14:41 Succinylcholine Chloride (Quelicin) Confirm Administered Dose 200 mg .ROUTE .STK -MED ONE Stop: 09/04/18 09:47 Succinylcholine Chloride (Quelicin) Confirm Administered Dose 200 mg .ROUTE .STK -MED ONE Stop: 09/06/18 07:01 - Exam Quality Assessment: Supplemental Oxygen (Ventilator), Central Line/PICC, Urine Catheter, DVT Prophylaxis General: Alert, Mild Distress Lungs: Clear to Auscultation, Normal Respiratory Effort, Decreased Breath Sounds Cardiovascular: Regular Rate, Regular Rhythm, No Murmurs GI/Abdominal Exam: Soft, No Organomegaly, Tender. No: Distended, Guarding, Rigid, Rebound Extremities: Non-Tender, Pedal Edema - Problem List Review Problem List Initiated/Reviewed/Updated: Yes - My Orders Last 24 Hours: My Active Orders 09/24/18 10:05 Potassium Chloride [Klor-Con M20] 40 meq PO ONETIME ONE 09/24/18 16:00 Nystatin [Nystop] See Dose Instructions TOP QID - Plan Plan:: ASSESSMENT AND PLAN Acute respiratory failure with hypoxia and hypercapnia - status post placement of tracheostomy 09/20, -To need to work towards weaning from ventilator -Furosemide 40 mg IV twice daily today -Up to chair 4 times daily -Physical therapy -Continue fluconazole -treat anxiety as indicated -Daily chest x-rays Perforated sigmoid colon with sepsis - Initial surgical resection on 09/03 and Second Look laparotomy on 09/04. Sepsis has resolved. Cultures grew out Klebsiella, Escherichia coli and anaerobic bacteria. stable from this standpoint and she has completed adequate anabiotic for this infection. Malnourished with essentially no oral intake in the last 2 weeks. -Pain control as indicated -TPN Hypertension - no longer has NG. blood pressure has been stable. -Metoprolol 25 mg by mouth twice a day -PRN meds if SBP >175 Anemia of critical illness - hemoglobin now stable with no evidence for bleeding. -Transfuse if less than 8 since she is currently hemodynamically stable and oxygenating well Acute kidney injury - renal function back to normal and stable. She does have an elevated BUN out of proportion to her creatinine but this is slowly trending down. -Management as above -Repeat labs in the morning Mixed delirium - She remains lethargic with recent sedation but sedation will be off now that she has a tracheostomy. -Symptomatically management and treatment of the above conditions Maintenance issues - - DVT prophylaxis - mechanical - GI prophylaxis - PPI - Nutrition - nothing by mouth - Rubin catheter - placed for strict intake and output monitoring and a critical patient Disposition - I would anticipate discharge to an LTAC for ventilator weaning
[2018-09-24] MEDS ORDERED: Potassium Chloride 20 MEQ Tab.ER PO ONE (10:30)
[2018-09-24] MEDS: Nystatin Topical Powder 15 GM Bottle TOP SCH ×3 (10:36→21:40)
[2018-09-24] MEDS: Ketoconazole 2% Crm 30 GM Tube TOP SCH (13:53)
[2018-09-24] MEDS ORDERED: 1: AA 5%/Calcium/D20W/Lytes 1,000 ML with MVI, Adult with Vitamin K 10 ML, Chromium/Copp IV SCH ×3 (15:00)
[2018-09-24] MEDS ORDERED: Sodium Chloride 0.9% 1,000 ML IV SCH (16:30)
[2018-09-24] MEDS: HYDROmorphone 0.5 MG/0.5 ML Syringe IVPUSH PRN (20:18)
[2018-09-24] MEDS: Fluconazole/Normal Saline 400 MG in Premix Bag 1 BAG IV SCH (20:22)
[2018-09-24] MEDS: 1: AA 5%/Calcium/D20W/Lytes 1,000 ML with MVI, Adult with Vitamin K 10 ML, Chromium/Copp IV SCH ×3 (21:03)
[2018-09-24] MEDS: Pantoprazole 40 MG Tab.CR PO SCH (21:14)
[2018-09-25] MEDS: Potassium Phosphates 22.5 MMOLE in Sodium Chloride 0.9% 100 ML IV SCH ×2 (00:53→04:43)
[2018-09-25] MEDS: HYDROmorphone 0.5 MG/0.5 ML Syringe IVPUSH PRN ×3 (03:30→21:43)
[2018-09-25] MEDS: Magnesium Sulfate/Water 2 GM in Premix Bag 1 BAG IV SCH (04:29)
[2018-09-25] MEDS: Nystatin Topical Powder 15 GM Bottle TOP SCH ×4 (05:24→21:43)
[2018-09-25] MEDS: Albuterol/Ipratropium 3.0-0.5 MG/3 ML Neb Soln NEB SCH ×4 (07:17→21:05)
--- NOTE | 2018-09-25 07:29 | PCM.PN ---
- General Info Date of Service: 09/25/18 - Review of Systems Systems Review Comment:: Tina Muniz is a 78 year old female who is on postoperative day #22 from the original exploratory laparotomy surgery. She appears to be relatively stable this morning. She is unable to provide symptoms due to tracheostomy, weakness and fatigue. Total intake is 2309 mL and total output is 3050 mL. Total output through Rubin catheter is 3050 mL. Labs show hemoglobin at 9.9, BNP 5664, magnesium 3.7 and albumin 2.2. She has not produced any stool in her ostomy bag showing an ileus. Incision site is healing well. Vital signs are stable. - Patient Data Vitals - Most Recent: Last Vital Signs Temp 35.5 C 09/25/18 00:00 Pulse 76 09/25/18 07:15 Resp 16 09/25/18 06:00 BP 126/61 09/25/18 06:00 Pulse Ox 100 09/25/18 06:00 Weight - Most Recent: 74.843 kg I&O - Last 24 Hours: Intake & Output 09/24/18 09/25/18 09/25/18 22:59 06:59 14:59 Intake Total 893 1416 Output Total 2025 675 Balance -1132 741 Lab Results Last 24 Hours: Laboratory Results - last 24 hr 09/25/18 09/25/18 09/25/18 Range/Units 05:00 05:00 05:00 WBC 7.9 (4.5-11.0) K/uL RBC 3.09 L (3.30-5.50) M/uL Hgb 9.9 L (12.0-15.0) g/dL Hct 29.8 L (36.0-48.0) % MCV 96 (80-98) fL MCH 32 H (27-31) pg MCHC 33 (32-36) % Plt Count 289 (150-400) K/uL Puncture Site R brachial ABG pH 7.462 H (7.350-7.450) ABG pCO2 42.3 H (35.0-42.0) mmHg ABG pO2 116.0 H (75.0-100.0) mmHg ABG HCO3 29.8 H (22.0-26.0) mmol/L ABG Total CO2 27.1 H (21.0-25.0) mmol/L ABG O2 Saturation 98.2 H (95.0-98.0) % ABG O2 Content 14.8 L (15.0-23.0) %vol ABG Base Excess 5.8 mm/L ABG Hemoglobin 10.7 L (12.0-16.0) g/dL ABG Oxyhemoglobin 97.1 % ABG Carboxyhemoglobin 0.5 (0.0-1.6) % ABG Methemoglobin 0.6 % O2 Delivery Device Ventilator Oxygen Flow Rate L Sodium 144 (140-148) mmol/L Potassium 4.5 (3.6-5.2) mmol/L Chloride 106 (100-108) mmol/L Carbon Dioxide 32 (21-32) mmol/L Anion Gap 6.5 (5.0-14.0) mmol/L BUN 42 H (7-18) mg/dL Creatinine 1.0 (0.6-1.0) mg/dL Est Cr Clr Drug Dosing 35.11 mL/min Estimated GFR (MDRD) 53 L (>60) Glucose 132 H (74-106) mg/dL Calcium 9.6 (8.5-10.1) mg/dL Phosphorus 6.9 H (2.5-4.9) mg/dL Magnesium 3.7 H D (1.8-2.4) mg/dL Total Bilirubin 0.7 (0.2-1.0) mg/dL AST 79 H (15-37) U/L ALT 196 H (12-78) U/L Alkaline Phosphatase 323 H (46-116) U/L NT-Pro-B Natriuret Pep 5664 H (5-450) pg/mL Total Protein 6.4 (6.4-8.2) g/dL Albumin 2.2 L (3.4-5.0) g/dL Globulin 4.2 H (2.3-3.5) g/dL Albumin/Globulin Ratio 0.5 L (1.2-2.2) Med Orders - Current: Current Medications Albuterol (Proventil Neb Soln) 2.5 mg NEB Q4H PRN PRN Reason: Dyspnea Albuterol/Ipratropium (Duoneb 3.0-0.5 Mg/3 Ml) 3 ml NEB QIDRT [facility] Last Admin: 09/25/18 07:17 Dose: 3 ml Citalopram Hydrobromide (Celexa) 20 mg PO DAILY [facility] Last Admin: 09/24/18 09:32 Dose: 20 mg Dimethicone/Zinc Oxide (Rash Relief-Zinc Oxide [place]) 0 gm TOP ASDIRECTED PRN PRN Reason: Inflammation Last Admin: 09/21/18 15:28 Dose: 2 spray Hydralazine HCl (Apresoline) 5 mg IVPUSH Q4H PRN PRN Reason: Hypertension Last Admin: 09/19/18 13:41 Dose: 5 mg Hydromorphone HCl (Dilaudid) 0.5 mg IVPUSH Q2H PRN PRN Reason: Pain Last Admin: 09/25/18 03:30 Dose: 0.5 mg Hydroxyzine HCl (Vistaril) 50 mg IM Q4H PRN PRN Reason: Pain Heparin Sodium (Porcine) 5,000 (units/ Sodium Chloride) 501 mls @ 5 mls/hr IV ASDIRECTED [facility] Last Admin: 09/22/18 14:59 Dose: 5 mls/hr Lactated Ringer's (Ringers, Lactated) 1,000 mls @ 25 mls/hr IV ASDIRECTED [facility] Last Admin: 09/18/18 21:11 Dose: 25 mls/hr Fluconazole/Sodium Chloride (400 mg/ Premix) 200 mls @ 100 mls/hr IV Q24H [facility] Last Admin: 09/24/18 20:22 Dose: 100 mls/hr Dextrose/Lactated Ringer's (Dextrose 5%-Lactated Ringers) 1,000 mls @ 40 mls/ hr IV ASDIRECTED [facility] Last Admin: 09/24/18 07:51 Dose: 40 mls/hr Sodium Chloride (Normal Saline) 1,000 mls @ 25 mls/hr IV ASDIRECTED [facility] Multivitamins/Minerals 10 ml/Chromium/Copper/Manganese/Seleni/Zn 1 ml/ Amino Ac/ Electrol/Dextrose/Calcium 1,011 mls @ 62 mls/hr IV .BY DURATION [facility] Amino Ac/Electrol/Dextrose/Calcium (Clinimix E 5/20) 1,000 mls @ 62 mls/hr IV .BY DURATION [facility] Last Admin: 09/24/18 21:03 Dose: 62 mls/hr Lorazepam (Ativan) 0.5 mg IVPUSH Q1H PRN PRN Reason: Anxiety Last Admin: 09/23/18 07:29 Dose: 0.5 mg Metoprolol Tartrate (Lopressor) 2.5 mg IVPUSH Q4H PRN PRN Reason: Hypertension Last Admin: 09/19/18 11:44 Dose: 2.5 mg Metoprolol Tartrate (Lopressor) 25 mg PO Q12H [facility] Last Admin: 09/24/18 21:13 Dose: 25 mg Nystatin (Nystop) 0 gm TOP QID [facility] Last Admin: 09/25/18 05:24 Dose: 1 applic Pantoprazole Sodium (Protonix) 40 mg PO BEDTIME [facility] Last Admin: 09/24/18 21:14 Dose: 40 mg Discontinued Medications Acetaminophen (Tylenol) 650 mg PO Q4H PRN PRN Reason: Pain (Mild 1-3)/fever Acetaminophen (Tylenol) 650 mg RECTAL Q4H PRN PRN Reason: Mild pain/fever Acetylcysteine (Mucomyst 20%) 200 mg NEB QIDRT [facility] Last Admin: 09/20/18 07:00 Dose: 200 mg Albuterol (Proventil Neb Soln) 2.5 mg NEB Q4H PRN PRN Reason: Shortness Of Breath/wheezing Albuterol/Ipratropium (Duoneb 3.0-0.5 Mg/3 Ml) 3 ml INH PREPRO ONE Stop: 09/03/18 17:01 Last Admin: 09/03/18 16:25 Dose: 3 ml Albuterol/Ipratropium (Duoneb 3.0-0.5 Mg/3 Ml) 3 ml NEB QID [facility] Last Admin: 09/13/18 21:11 Dose: 3 ml Aztreonam (Azactam) Confirm Administered Dose 1 gm .ROUTE .STK-MED ONE Stop: 09/03/18 21:44 Last Admin: 09/03/18 22:15 Dose: Not Given Benazepril HCl (Lotensin) 40 mg PO ONETIME ONE Stop: 09/03/18 10:41 Last Admin: 09/03/18 11:00 Dose: 40 mg Benazepril HCl (Lotensin) 40 mg NGTUBE DAILY [facility] Last Admin: 09/20/18 09:55 Dose: Not Given Bupivacaine HCl (Marcaine 0.5%) Confirm Administered Dose 50 ml .ROUTE .STK-MED ONE Stop: 09/07/18 06:48 Last Admin: 09/07/18 10:53 Dose: 18 ml Bupivacaine HCl (Marcaine 0.5%) Confirm Administered Dose 50 ml .ROUTE .STK-MED ONE Stop: 09/11/18 09:07 Last Admin: 09/11/18 10:49 Dose: 2 ml Ropivacaine 22 ml/Dexamethasone 8 mg/Epinephrine HCl 0.4 mg/ Sodium Chloride 55.6 ml 0 ml NERVRT ASDIRECTED [facility] Ropivacaine 22 ml/Dexamethasone 8 mg/Epinephrine HCl 0.4 mg/ Sodium Chloride 55.6 ml 0 ml NERVRT ASDIRECTED [facility] Last Admin: 09/04/18 14:03 Dose: 80 syringe Ropivacaine 22 ml/Dexamethasone 8 mg/Epinephrine HCl 0.4 mg/ Sodium Chloride 55.6 ml 0 ml NERVRT ASDIRECTED [facility] Last Admin: 09/07/18 11:07 Dose: 80 syringe Dexamethasone (Dexamethasone) Confirm Administered Dose 4 mg .ROUTE .STK-MED ONE Stop: 09/03/18 14:41 Dexamethasone (Dexamethasone) Confirm Administered Dose 4 mg .ROUTE .STK-MED ONE Stop: 09/04/18 09:47 Fentanyl (Sublimaze) 25 mcg IVPUSH ONETIME ONE Stop: 09/03/18 13:57 Last Admin: 09/03/18 14:16 Dose: 25 mcg Fentanyl (Sublimaze) 25 mcg IVPUSH Q2H PRN PRN Reason: Pain (severe 7-10) Fentanyl (Sublimaze) Confirm Administered Dose 250 mcg .ROUTE .STK-MED ONE Stop: 09/03/18 14:41 Fentanyl (Sublimaze) Confirm Administered Dose 250 mcg .ROUTE .STK-MED ONE Stop: 09/04/18 09:46 Fentanyl (Sublimaze) Confirm Administered Dose 250 mcg .ROUTE .STK-MED ONE Stop: 09/04/18 13:57 Fentanyl (Sublimaze) Confirm Administered Dose 100 mcg .ROUTE .STK-MED ONE Stop: 09/11/18 10:36 Fentanyl (Sublimaze) Confirm Administered Dose 250 mcg .ROUTE .STK-MED ONE Stop: 09/20/18 07:50 Furosemide (Lasix) 20 mg IVPUSH ONETIME ONE Stop: 09/04/18 15:10 Last Admin: 09/04/18 15:18 Dose: 20 mg Furosemide (Lasix) 40 mg IV ONETIME ONE Stop: 09/06/18 08:16 Last Admin: 09/06/18 08:26 Dose: 40 mg Furosemide (Lasix) 20 mg IV Q12H [facility] Stop: 09/07/18 20:01 Last Admin: 09/07/18 20:10 Dose: 20 mg Furosemide (Lasix) 20 mg IVPUSH Q12H [facility] Stop: 09/08/18 19:01 Last Admin: 09/08/18 19:50 Dose: 20 mg Furosemide (Lasix) 20 mg IVPUSH ONETIME ONE Stop: 09/09/18 07:01 Last Admin: 09/09/18 08:14 Dose: 20 mg Furosemide (Lasix) 20 mg IVPUSH ONETIME ONE Stop: 09/09/18 11:01 Last Admin: 09/09/18 12:38 Dose: 20 mg Furosemide (Lasix) 20 mg IVPUSH ONETIME ONE Stop: 09/09/18 20:01 Furosemide (Lasix) 20 mg IV Q8H [facility] Stop: 09/11/18 00:31 Last Admin: 09/10/18 23:50 Dose: 20 mg Furosemide (Lasix) 20 mg IV Q8H [facility] Stop: 09/12/18 00:01 Last Admin: 09/11/18 23:34 Dose: 20 mg Furosemide (Lasix) 20 mg IVPUSH Q8H [facility] Stop: 09/13/18 02:31 Last Admin: 09/13/18 02:39 Dose: 20 mg Furosemide (Lasix) 20 mg IVPUSH Q8H [facility] Stop: 09/14/18 02:31 Last Admin: 09/14/18 02:29 Dose: 20 mg Furosemide (Lasix) 40 mg IVPUSH ONETIME ONE Stop: 09/14/18 10:01 Last Admin: 09/14/18 13:28 Dose: 40 mg Furosemide (Lasix) 20 mg IVPUSH BID [facility] Furosemide (Lasix) 20 mg IVPUSH ONETIME ONE Stop: 09/15/18 06:34 Last Admin: 09/15/18 06:48 Dose: 20 mg Furosemide (Lasix) 40 mg IVPUSH Q8H [facility] Stop: 09/15/18 20:31 Last Admin: 09/15/18 20:39 Dose: 40 mg Furosemide (Lasix) 40 mg IV BID [facility] Stop: 09/16/18 21:01 Last Admin: 09/16/18 21:19 Dose: 40 mg Furosemide (Lasix) 40 mg IV Q12H [facility] Stop: 09/17/18 21:01 Last Admin: 09/17/18 21:11 Dose: 40 mg Furosemide (Lasix) 40 mg IV Q8H [facility] Stop: 09/18/18 16:01 Last Admin: 09/18/18 16:00 Dose: 40 mg Furosemide (Lasix) 40 mg IV Q12H [facility] Stop: 09/19/18 20:01 Last Admin: 09/19/18 19:23 Dose: 40 mg Furosemide (Lasix) 20 mg IVPUSH Q12H [facility] Stop: 09/20/18 22:01 Last Admin: 09/20/18 21:52 Dose: 20 mg Furosemide (Lasix) 20 mg IVPUSH Q8H [facility] Stop: 09/21/18 20:01 Last Admin: 09/21/18 19:37 Dose: 20 mg Furosemide (Lasix) 20 mg IVPUSH Q6H [facility] Stop: 09/22/18 14:01 Last Admin: 09/22/18 13:54 Dose: 20 mg Furosemide (Lasix) Confirm Administered Dose 40 mg .ROUTE .STK-MED ONE Stop: 09/23/18 06:19 Last Admin: 09/23/18 07:04 Dose: Not Given Furosemide (Lasix) 40 mg IVPUSH ONETIME ONE Stop: 09/23/18 06:21 Last Admin: 09/23/18 06:15 Dose: 40 mg Furosemide (Lasix) 40 mg IV ONETIME ONE Stop: 09/23/18 14:31 Last Admin: 09/23/18 14:05 Dose: 40 mg Furosemide (Lasix) 40 mg IVPUSH NOW ONE Stop: 09/23/18 18:01 Last Admin: 09/23/18 17:12 Dose: 40 mg Furosemide (Lasix) 40 mg IV NOW ONE Stop: 09/24/18 08:01 Last Admin: 09/24/18 07:57 Dose: 40 mg Furosemide (Lasix) 40 mg IV ONETIME ONE Stop: 09/24/18 16:01 Last Admin: 09/24/18 15:49 Dose: 40 mg Gentamicin Sulfate (Gentamicin) 1 mg IV .Pharmacy to Dose [facility] Stop: 09/08/18 14:31 Glycopyrrolate (Robinul) Confirm Administered Dose 1 mg .ROUTE .STK-MED ONE Stop: 09/03/18 14:41 Glycopyrrolate (Robinul) Confirm Administered Dose 1 mg .ROUTE .STK-MED ONE Stop: 09/04/18 09:47 Heparin Sodium (Porcine) (Heparin Sodium) Confirm Administered Dose 5,000 units .ROUTE .STK-MED ONE Stop: 09/03/18 18:32 Heparin Sodium (Porcine) (Heparin Lock Flush 100 Units/Ml) Confirm Administered Dose 500 units .ROUTE .STK-MED ONE Stop: 09/04/18 13:14 Heparin Sodium (Porcine) (Heparin Lock Flush 100 Units/Ml) Confirm Administered Dose 1,000 units .ROUTE .STK-MED ONE Stop: 09/11/18 09:07 Last Admin: 09/11/18 10:58 Dose: 1,000 units Heparin Sodium (Porcine) (Heparin Lock Flush 100 Units/Ml) Confirm Administered Dose 500 units .ROUTE .ST-MED ONE Stop: 09/11/18 10:44 Last Admin: 09/11/18 10:58 Dose: 500 units Hydromorphone HCl (Dilaudid) 0.5 mg IVPUSH ONETIME ONE Stop: 09/03/18 10:48 Last Admin: 09/03/18 11:00 Dose: 0.5 mg Hydromorphone HCl (Dilaudid) 0.5 mg IVPUSH ONETIME ONE Stop: 09/03/18 11:22 Last Admin: 09/03/18 11:25 Dose: 0.5 mg Hydromorphone HCl (Dilaudid) 0.5 mg IVPUSH ONETIME ONE Stop: 09/03/18 12:10 Last Admin: 09/03/18 12:12 Dose: 0.5 mg Hydromorphone HCl (Dilaudid) 0.5 mg IVPUSH ONETIME ONE Stop: 09/03/18 12:40 Last Admin: 09/03/18 12:44 Dose: 0.5 mg Hydromorphone HCl (Dilaudid) 1 mg IVPUSH ONETIME ONE Stop: 09/03/18 12:57 Last Admin: 09/03/18 13:00 Dose: 1 mg Hydromorphone HCl (Dilaudid [employer] 15 Mg In Ns 30 Ml) 0 mg IV ASDIRECTED PRN; Protocol PRN Reason: 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 Last Admin: 09/09/18 05:52 Dose: 15 mg Sodium Chloride (Normal Saline) 1,000 mls @ 1,000 mls/hr IV .BOLUS ONE Stop: 09/03/18 12:17 Last Admin: 09/03/18 11:25 Dose: 1,000 mls/hr Piperacillin/Tazobactam/ (Dextrose 4.5 gm/ Premix) 100 mls @ 200 mls/hr IV ONETIME ONE Stop: 09/03/18 13:29 Last Admin: 09/03/18 13:04 Dose: 200 mls/hr Sodium Chloride (Normal Saline) 1,000 mls @ 500 mls/hr IV ASDIRECTED [facility] Last Admin: 09/03/18 13:00 Dose: 500 mls/hr Lactated Ringer's (Ringers, Lactated) 1,000 mls @ 125 mls/hr IV ASDIRECTED [facility] Last Admin: 09/03/18 16:07 Dose: 125 mls/hr Aztreonam 2 gm/ Sodium (Chloride) 100 mls @ 200 mls/hr IV NOW ONE Stop: 09/03/18 15:29 Last Admin: 09/03/18 14:56 Dose: 200 mls/hr Meropenem 500 mg/ Sodium (Chloride) 50 mls @ 100 mls/hr IV ONCALL ONE Stop: 09/03/18 17:29 Last Admin: 09/03/18 16:25 Dose: 100 mls/hr Piperacillin/Tazobactam/ (Dextrose 3.375 gm/ Premix) 50 mls @ 100 mls/hr IV Q6H [facility] Last Admin: 09/03/18 22:15 Dose: Not Given Sodium Chloride (Normal Saline) Confirm Administered Dose 500 mls @ as directed .ROUTE .STK-MED ONE Stop: 09/03/18 18:33 Aztreonam/Dextrose 1 gm/ (Premix) 50 mls @ 100 mls/hr IV Q8HR [facility] Meropenem 500 mg/ Sodium (Chloride) 50 mls @ 100 mls/hr IV Q8H [facility] Last Admin: 09/10/18 05:17 Dose: 100 mls/hr Sodium Chloride (Normal Saline) Confirm Administered Dose 50 mls @ as directed .ROUTE .STK-MED ONE Stop: 09/03/18 22:01 Last Admin: 09/03/18 22:21 Dose: Not Given Aztreonam/Dextrose 1 gm/ (Premix) 50 mls @ 100 mls/hr IV Q8H [facility] Last Admin: 09/04/18 07:30 Dose: Not Given Dextrose/Lactated Ringer's (Dextrose 5%-Lactated Ringers) 1,000 mls @ 100 mls/ hr IV ASDIRECTED PRN PRN Reason: Hypotension Dextrose/Lactated Ringer's (Dextrose 5%-Lactated Ringers) 1,000 mls @ 100 mls/ hr IV ASDIRECTED [facility] Last Admin: 09/05/18 02:13 Dose: 100 mls/hr Lactated Ringer's (Ringers, Lactated) 1,000 mls @ 100 mls/hr IV ASDIRECTED [facility] Last Admin: 09/04/18 04:20 Dose: 100 mls/hr Lactated Ringer's (Ringers, Lactated) 500 mls @ 500 mls/hr IV .BOLUS [facility] Last Admin: 09/04/18 01:10 Dose: 500 mls/hr Lactated Ringer's (Ringers, Lactated) 500 mls @ 500 mls/hr IV .BOLUS [facility] Last Admin: 09/04/18 03:13 Dose: 500 mls/hr Propofol (Diprivan 100 Ml) 100 mls @ 1.361 mls/hr IV TITRATE [facility]; Protocol Last Titration: 09/04/18 07:52 Dose: 14 mcg/kg/min, 3.81 mls/hr Propofol (Diprivan 100 Ml) Confirm Administered Dose 100 mls @ as directed .ROUTE .[facility] ONE Stop: 09/04/18 03:45 Last Admin: 09/04/18 03:59 Dose: Not Given Lactated Ringer's (Ringers, Lactated) 500 mls @ 999 mls/hr IV .BOLUS [facility] Last Admin: 09/04/18 06:10 Dose: 999 mls/hr Aztreonam/Dextrose 1 gm/ (Premix) 50 mls @ 100 mls/hr IV Q8H [facility] Last Admin: 09/07/18 08:15 Dose: 100 mls/hr Lactated Ringer's (Ringers, Lactated) 500 mls @ 500 mls/hr IV ASDIRECTED [facility] Last Admin: 09/04/18 21:04 Dose: 500 mls/hr Lactated Ringer's (Ringers, Lactated) Confirm Administered Dose 1,000 mls @ as directed .ROUTE .[facility] ONE Stop: 09/04/18 13:11 Lactated Ringer's (Ringers, Lactated) Confirm Administered Dose 1,000 mls @ as directed .ROUTE .[facility] ONE Stop: 09/04/18 13:11 Sodium Chloride (Normal Saline) Confirm Administered Dose 10 mls @ as directed .ROUTE .[facility] ONE Stop: 09/04/18 13:15 Magnesium Sulfate 2 gm/ Premix 50 mls @ 25 mls/hr IV Q6H [facility] Stop: 09/06/18 11:59 Last Admin: 09/06/18 10:17 Dose: 25 mls/hr Lactated Ringer's (Ringers, Lactated) 500 mls @ [facility]: 09/04/18 17:46 Heparin Sodium (Porcine) 5,000 (units/ Sodium Chloride) 501 mls @ 5 mls/hr IV ASDIRECTED [facility] Last Admin: 09/22/18 12:58 Dose: 5 mls/hr Lactated Ringer's (Ringers, Lactated) 500 mls @ 500 mls/hr IV ONETIME ONE Stop: 09/04/18 19:29 Last Admin: 09/04/18 18:37 Dose: 500 mls/hr Lactated Ringer's (Ringers, Lactated) 500 mls @ 1,000 mls/hr IV ONETIME ONE Stop: 09/04/18 23:30 Last Admin: 09/04/18 23:18 Dose: 1,000 mls/hr Lactated Ringer's (Ringers, Lactated) 500 mls @ 1,000 mls/hr IV ONETIME ONE Stop: 09/05/18 01:44 Last Admin: 09/05/18 01:15 Dose: 1,000 mls/hr Lactated Ringer's (Ringers, Lactated) 1,000 mls @ [facility] Last Admin: 09/05/18 02:13 Dose: 150 mls/hr Lactated Ringer's (Ringers, Lactated) 500 mls @ 1,000 mls/hr IV ONETIME ONE Stop: 09/05/18 03:38 Last Admin: 09/05/18 03:15 Dose: 1,000 mls/hr Multivitamins/Minerals 10 ml/Chromium/Copper/Manganese/Seleni/Zn 1 ml/ Amino Ac/ Electrol/Dextrose/Calcium 2,011 mls @ 82 mls/hr IV .BY DURATION [facility] Stop: 09/05/18 13:25 Last Admin: 09/05/18 13:32 Dose: Not Given Amino Ac/Electrol/Dextrose/Calcium (Clinimix E 5/15) 2,000 mls @ 82 mls/hr IV .BY DURATION [facility] Stop: 09/05/18 13:25 Vancomycin HCl 1 gm/ Sodium (Chloride) 250 mls @ 167 mls/hr IV Q24H [facility] Last Admin: 09/05/18 12:34 Dose: 167 mls/hr Sodium Chloride (Normal Saline) 1,000 mls @ 50 mls/hr IV ASDIRECTED [facility] Last Admin: 09/05/18 12:51 Dose: 50 mls/hr Multivitamins/Minerals 10 ml/Chromium/Copper/Manganese/Seleni/Zn 1 ml/ Amino Ac/ Electrol/Dextrose/Calcium 2,011 mls @ 82 mls/hr IV .BY DURATION [facility] Stop: 09/08/18 13:20 Last Admin: 09/07/18 15:09 Dose: 82 mls/hr Amino Ac/Electrol/Dextrose/Calcium (Clinimix E 5/15) 2,000 mls @ 82 mls/hr IV .BY DURATION [facility] Stop: 09/08/18 13:20 Vancomycin HCl 1 gm/ Sodium (Chloride) 250 mls @ 167 mls/hr IV Q24H [facility] Last Admin: 09/06/18 12:00 Dose: 167 mls/hr Sodium Chloride (Normal Saline) 500 mls @ 500 mls/hr IV ASDIRECTED ONE Stop: 09/05/18 16:29 Last Admin: 09/05/18 15:40 Dose: 500 mls/hr Sodium Chloride (Normal Saline) 1,000 mls @ 100 mls/hr IV ASDIRECTED [facility] Last Admin: 09/07/18 07:31 Dose: 100 mls/hr Propofol (Diprivan 100 Ml) 100 mls @ 1.361 mls/hr IV TITRATE [facility]; Protocol Last Titration: 09/17/18 03:30 Dose: 25 mcg/kg/min, 6.804 mls/hr Potassium Phosphate 20 mmole/ (Sodium Chloride) 106.6667 mls @ 35 mls/hr IV Q3H [facility] Stop: 09/07/18 17:29 Last Admin: 09/07/18 15:01 Dose: 35 mls/hr Albumin Human (Albumin 25%) 25 gm in 100 mls @ 25 mls/hr IV DAILY [facility] Stop: 09/09/18 12:59 Last Admin: 09/09/18 08:25 Dose: 25 mls/hr Albumin Human (Albumin 25%) 25 gm in 100 mls @ 25 mls/hr IV Q24H [facility] Stop: 09/09/18 17:59 Last Admin: 09/09/18 14:32 Dose: 25 mls/hr Sodium Chloride (Normal Saline) 1,000 mls @ 0 mls/hr IV ASDIRECTED [facility] Last Admin: 09/19/18 05:15 Dose: 12.5 mls/hr Aztreonam 1 gm/ Sodium (Chloride) 50 mls @ 100 mls/hr IV Q8H [facility] Last Admin: 09/08/18 09:41 Dose: 100 mls/hr Vancomycin HCl 1 gm/ Sodium (Chloride) 250 mls @ 167 mls/hr IV Q18H [facility] Last Admin: 09/09/18 18:42 Dose: 167 mls/hr Sodium Chloride (Normal Saline) 1,000 mls @ 999 mls/hr IV .BOLUS ONE Stop: 09/07/18 17:39 Last Admin: 09/07/18 17:26 Dose: 999 mls/hr Potassium Acetate 40 meq/ (Sodium Chloride) 120 mls @ 30 mls/hr IV ONETIME ONE Stop: 09/08/18 13:59 Last Admin: 09/08/18 09:44 Dose: 30 mls/hr Multivitamins/Minerals 10 ml/Chromium/Copper/Manganese/Seleni/Zn 1 ml/ Amino Ac/ Electrol/Dextrose/Calcium 1,011 mls @ 62 mls/hr IV .BY DURATION NAHED Stop: 09/20/18 17:00 Last Admin: 09/19/18 09:10 Dose: 62 mls/hr Amino Ac/Electrol/Dextrose/Calcium (Clinimix E 09/28) 1,000 mls @ 62 mls/hr IV .BY DURATION [facility] Stop: 09/20/18 17:00 Last Admin: 09/20/18 01:21 Dose: 62 mls/hr Sodium Chloride (Normal Saline) 100 mls @ 3 mls/sec IV ASDIRECTED [facility] Stop: 09/08/18 15:00 Last Admin: 09/08/18 14:17 Dose: 3 mls/sec Azithromycin 500 mg/ Sodium (Chloride) 250 mls @ 250 mls/hr IV Q24H [facility] Last Admin: 09/09/18 15:27 Dose: 250 mls/hr Gentamicin Sulfate 228 mg/ (Sodium Chloride) 105.7 mls @ 100 mls/hr IV ONETIME ONE Stop: 09/08/18 17:03 Last Admin: 09/08/18 16:19 Dose: 100 mls/hr Potassium Phosphate 15 mmole/ (Sodium Chloride) 105 mls @ 55 mls/hr IV Q2H [facility] Stop: 09/09/18 12:55 Last Admin: 09/09/18 15:27 Dose: 55 mls/hr Gentamicin Sulfate 228 mg/ (Sodium Chloride) 105.7 mls @ 100 mls/hr IV Q36H [facility] Last Admin: 09/10/18 03:55 Dose: 100 mls/hr Sodium Chloride (Normal Saline) 500 mls @ 999 mls/hr IV .BOLUS ONE Stop: 09/09/18 16:34 Last Admin: 09/09/18 16:18 Dose: 999 mls/hr Sodium Chloride (Normal Saline) 500 mls @ 999 mls/hr IV .BOLUS ONE Stop: 09/09/18 17:35 Last Admin: 09/09/18 17:18 Dose: 999 mls/hr Sodium Chloride (Normal Saline) 1,000 mls @ 125 mls/hr IV ASDIRECTED [facility] Last Admin: 09/10/18 01:41 Dose: 125 mls/hr Lactated Ringer's (Ringers, Lactated) 1,000 mls @ 125 mls/hr IV ASDIRECTED [facility] Last Admin: 09/11/18 01:06 Dose: 125 mls/hr Meropenem 500 mg/ Sodium (Chloride) 25 mls @ 50 mls/hr IV Q8H [facility] Last Admin: 09/20/18 13:05 Dose: 50 mls/hr Gentamicin Sulfate 228 mg/ (Sodium Chloride) 55.7 mls @ 55 mls/hr IV Q36H [facility] Last Admin: 09/14/18 16:49 Dose: 55 mls/hr Azithromycin 500 mg/ Dextrose/ (Water) 250 mls @ 250 mls/hr IV Q24H [facility] Stop: 09/17/18 17:00 Last Admin: 09/14/18 15:42 Dose: 250 mls/hr Vancomycin HCl 1 gm/ Dextrose/ (Water) 250 mls @ 167 mls/hr IV Q24H [facility] Last Admin: 09/13/18 17:48 Dose: 167 mls/hr Fluconazole/Sodium Chloride (200 mg/ Premix) 100 mls @ 100 mls/hr IV Q24H [facility] Last Admin: 09/15/18 20:38 Dose: 100 mls/hr Magnesium Sulfate 2 gm/ Premix 50 mls @ 25 mls/hr IV Q6H [facility] Stop: 09/13/18 05:59 Last Admin: 09/13/18 03:31 Dose: 25 mls/hr Potassium Phosphate 22.5 mmole (/ Dextrose/Water) 107.5 mls @ 27 mls/hr IV Q4H [facility] Stop: 09/11/18 17:29 Last Admin: 09/11/18 14:45 Dose: 27 mls/hr Lactated Ringer's (Ringers, Lactated) 1,000 mls @ 75 mls/hr IV ASDIRECTED [facility] Last Admin: 09/13/18 22:27 Dose: 75 mls/hr Sodium Chloride (Normal Saline) Confirm Administered Dose 10 mls @ as directed .ROUTE .STK-MED ONE Stop: 09/11/18 10:41 Potassium Chloride 40 meq/ (Premix) 100 mls @ 25 mls/hr IV ONETIME ONE Stop: 09/13/18 12:59 Last Admin: 09/13/18 09:31 Dose: 25 mls/hr Potassium Chloride 40 meq/ (Premix) 100 mls @ 25 mls/hr IV ONETIME ONE Stop: 09/13/18 17:59 Last Admin: 09/13/18 13:11 Dose: 25 mls/hr Albumin Human (Albumin 25%) 25 gm in 100 mls @ 25 mls/hr IV Q24H [facility] Stop: 09/16/18 11:59 Last Admin: 09/16/18 09:02 Dose: 25 mls/hr Albumin Human (Albumin 25%) 25 gm in 100 mls @ 25 mls/hr IV Q24H [facility] Stop: 09/16/18 15:59 Last Admin: 09/16/18 12:33 Dose: 25 mls/hr Potassium Chloride 40 meq/ (Premix) 100 mls @ 25 mls/hr IV ONETIME ONE Stop: 09/16/18 11:59 Last Admin: 09/16/18 08:02 Dose: 25 mls/hr Potassium Chloride 20 meq/ (Premix) 100 mls @ 50 mls/hr IV ONETIME ONE Stop: 09/16/18 13:59 Last Admin: 09/16/18 11:36 Dose: 50 mls/hr Potassium Chloride 40 meq/ (Premix) 100 mls @ 25 mls/hr IV ONETIME ONE Stop: 09/17/18 11:59 Last Admin: 09/17/18 08:43 Dose: 25 mls/hr Magnesium Sulfate 2 gm/ Premix 50 mls @ 25 mls/hr IV Q6H [facility] Stop: 09/19/18 05:59 Last Admin: 09/19/18 03:26 Dose: 25 mls/hr Potassium Chloride 40 meq/ (Premix) 100 mls @ 25 mls/hr IV ONETIME ONE Stop: 09/18/18 12:59 Last Admin: 09/18/18 08:34 Dose: 25 mls/hr Potassium Chloride 40 meq/ (Premix) 100 mls @ 25 mls/hr IV ONETIME ONE Stop: 09/19/18 11:59 Last Admin: 09/19/18 08:19 Dose: 25 mls/hr Potassium Chloride 20 meq/ (Premix) 100 mls @ 50 mls/hr IV ONETIME ONE Stop: 09/19/18 13:59 Last Admin: 09/19/18 11:05 Dose: 50 mls/hr Propofol (Diprivan 100 Ml) 100 mls @ 2.354 mls/hr IV TITRATE NAHED; Protocol Last Admin: 09/20/18 05:35 Dose: 15 mcg/kg/min, 7.062 mls/hr Multivitamins/Minerals 10 ml/Chromium/Copper/Manganese/Seleni/Zn 1 ml/ Amino Ac/ Electrol/Dextrose/Calcium 2,011 mls @ 100 mls/hr IV .BY DURATION [facility] Amino Ac/Electrol/Dextrose/Calcium (Clinimix E 5/20) 2,000 mls @ 100 mls/hr IV .BY DURATION [facility] Multivitamins/Minerals 10 ml/Chromium/Copper/Manganese/Seleni/Zn 1 ml/ Amino Ac/ Electrol/Dextrose/Calcium 2,011 mls @ 62 mls/hr IV .BY DURATION [facility] Stop: 09/21/18 16:50 Last Admin: 09/20/18 17:31 Dose: 62 mls/hr Amino Ac/Electrol/Dextrose/Calcium (Clinimix E 5/20) 2,000 mls @ 62 mls/hr IV .BY DURATION [facility] Stop: 09/21/18 16:50 Potassium Chloride 40 meq/ (Premix) 100 mls @ 25 mls/hr IV ONETIME ONE Stop: 09/21/18 12:59 Last Admin: 09/21/18 09:38 Dose: 25 mls/hr Multivitamins/Minerals 10 ml/Chromium/Copper/Manganese/Seleni/Zn 1 ml/ Amino Ac/ Electrol/Dextrose/Calcium 2,011 mls @ 62 mls/hr IV .BY DURATION [facility] Last Admin: 09/23/18 16:06 Dose: 62 mls/hr Amino Ac/Electrol/Dextrose/Calcium (Clinimix E 5/20) 2,000 mls @ 62 mls/hr IV .BY DURATION [facility] Potassium Phosphate 22.5 mmole (/ Sodium Chloride) 257.5 mls @ 86 mls/hr IV Q3H [facility] Stop: 09/22/18 20:59 Last Admin: 09/22/18 17:50 Dose: 86 mls/hr Magnesium Sulfate 2 gm/ Premix 50 mls @ 25 mls/hr IV Q6H NAHED Stop: 09/25/18 05:59 Last Admin: 09/25/18 04:29 Dose: 25 mls/hr Potassium Chloride 40 meq/ (Premix) 100 mls @ 25 mls/hr IV ONETIME ONE Stop: 09/24/18 12:59 Potassium Chloride 40 meq/ (Premix) 100 mls @ 25 mls/hr IV ONETIME ONE Stop: 09/24/18 17:59 Last Admin: 09/24/18 21:05 Dose: 25 mls/hr Potassium Phosphate 22.5 mmole (/ Sodium Chloride) 107.5 mls @ 27 mls/hr IV Q4H [facility] Stop: 09/25/18 01:59 Last Admin: 09/25/18 04:43 Dose: 27 mls/hr Multivitamins/Minerals 10 ml/Chromium/Copper/Manganese/Seleni/Zn 1 ml/ Amino Ac/ Electrol/Dextrose/Calcium 1,011 mls @ 62 mls/hr IV .BY DURATION [facility] Amino Ac/Electrol/Dextrose/Calcium (Clinimix E 5/20) 1,000 mls @ 62 mls/hr IV .BY DURATION [facility] Iopamidol (Isovue-300 (61%)) 100 ml IV . DIRECTED PRN PRN Reason: RADIOLOGY EXAM Stop: 09/09/18 11:03 Last Admin: 09/08/18 14:16 Dose: 100 ml Ketoconazole (Nizoral 2% Crm) 0 gm TOP TID [facility] Last Admin: 09/24/18 13:53 Dose: Not Given Lidocaine HCl (Xylocaine 2% Viscous) Confirm Administered Dose 15 ml .ROUTE .STK -MED ONE Stop: 09/12/18 11:15 Lidocaine HCl (Xylocaine 4% Top Soln) Confirm Administered Dose 50 ml .ROUTE .STK-MED ONE Stop: 09/12/18 11:15 Lidocaine HCl (Xylocaine 4% Top Soln) Confirm Administered Dose 50 ml .ROUTE .STK-MED ONE Stop: 09/14/18 06:57 Last Admin: 09/14/18 07:20 Dose: 20 ml Lidocaine HCl (Xylocaine-Mpf 1%) 5 ml INJECT ONETIME ONE Stop: 09/17/18 06:31 Last Admin: 09/17/18 06:52 Dose: 5 ml Lidocaine HCl (Xylocaine 2% Viscous) Confirm Administered Dose 15 ml .ROUTE .STK -MED ONE Stop: 09/20/18 06:37 Lidocaine HCl (Xylocaine 4% Top Soln) Confirm Administered Dose 50 ml .ROUTE .STK-MED ONE Stop: 09/20/18 06:38 Last Admin: 09/20/18 09:05 Dose: 50 ml Lidocaine/Epinephrine (Xylocaine 1% With Epinephrine 1:100,000) Confirm Administered Dose 50 ml .ROUTE .STK-MED ONE Stop: 09/07/18 06:48 Last Admin: 09/07/18 10:54 Dose: 18 ml Lidocaine/Epinephrine (Xylocaine 1% With Epinephrine 1:100,000) Confirm Administered Dose 50 ml .ROUTE .STK-MED ONE Stop: 09/11/18 09:07 Last Admin: 09/11/18 10:49 Dose: 2 ml Lidocaine/Epinephrine (Xylocaine 1% With Epinephrine 1:100,000) Confirm Administered Dose 50 ml .ROUTE .STK-MED ONE Stop: 09/20/18 06:38 Lorazepam (Ativan) 0.5 mg IVPUSH Q4H PRN PRN Reason: Nausea/Vomiting Lorazepam (Ativan) 0.5 mg IVPUSH Q3H PRN PRN Reason: AGITATION Last Admin: 09/18/18 13:47 Dose: 0.5 mg Meropenem (Merrem) Confirm Administered Dose 1,000 mg .ROUTE .STK-MED ONE Stop: 09/03/18 17:54 Last Admin: 09/03/18 18:32 Dose: 3,500 mg Meropenem (Merrem) Confirm Administered Dose 1,000 mg .ROUTE .STK-MED ONE Stop: 09/03/18 18:04 Meropenem (Merrem) Confirm Administered Dose 2,000 mg .ROUTE .STK-MED ONE Stop: 09/03/18 18:18 Meropenem (Merrem) Confirm Administered Dose 500 mg .ROUTE .STK-MED ONE Stop: 09/07/18 06:48 Last Admin: 09/07/18 10:53 Dose: 500 mg Metoprolol Tartrate (Lopressor) 25 mg PO ONETIME ONE Stop: 09/03/18 10:41 Last Admin: 09/03/18 11:00 Dose: 25 mg Metoprolol Tartrate (Lopressor) 5 mg IVPUSH Q6H [facility] Last Admin: 09/08/18 09:25 Dose: 5 mg Metoprolol Tartrate (Lopressor) 2.5 mg IVPUSH Q6H NAHED Last Admin: 09/10/18 03:55 Dose: 2.5 mg Metoprolol Tartrate (Lopressor) Confirm Administered Dose 5 mg .ROUTE .STK-MED ONE Stop: 09/08/18 21:53 Last Admin: 09/08/18 22:19 Dose: Not Given Metoprolol Tartrate (Lopressor) 2.5 mg IVPUSH Q4H [facility] Last Admin: 09/11/18 21:25 Dose: Not Given Morphine Sulfate (Morphine) 2 mg IVPUSH Q1H PRN PRN Reason: Anxiety Last Admin: 09/19/18 16:04 Dose: 2 mg Naloxone HCl (Narcan) 0.1 mg IV ASDIRECTED PRN PRN Reason: decreased respiratory rate Neostigmine Methylsulfate (Neostigmine) Confirm Administered Dose 5 mg .ROUTE .STK-MED ONE Stop: 09/03/18 14:41 Neostigmine Methylsulfate (Neostigmine) Confirm Administered Dose 5 mg .ROUTE .STK-MED ONE Stop: 09/04/18 09:47 Non-Formulary Medication (Total Parenteral Nutrition, Central) 0 ml IV ASDIRECTED [facility] Stop: 09/12/18 13:31 Non-Formulary Medication (Total Parenteral Nutrition, Central) 0 ml IV ASDIRECTED [facility] Stop: 09/13/18 13:00 Ondansetron HCl (Zofran Odt) 4 mg PO Q6H PRN PRN Reason: Nausea able to take PO Ondansetron HCl (Zofran) 4 mg IV Q6H PRN PRN Reason: Nausea/Vomiting Ondansetron HCl (Zofran) Confirm Administered Dose 4 mg .ROUTE .STK-MED ONE Stop: 09/03/18 14:41 Ondansetron HCl (Zofran) Confirm Administered Dose 4 mg .ROUTE .STK-MED ONE Stop: 09/04/18 09:47 Pantoprazole Sodium (Protonix Iv) 40 mg IV Q12H [facility] Last Admin: 09/03/18 16:07 Dose: 40 mg Pantoprazole Sodium (Protonix Iv) 40 mg IV Q24H [facility] Last Admin: 09/22/18 22:21 Dose: 40 mg Piperacillin Sod/Tazobactam Sod (Zosyn) 10.125 gm .XX ASDIRECTED [facility] Stop: 09/04/18 15:00 Last Admin: 09/04/18 14:04 Dose: 10.125 gm Potassium Chloride (Klor-Con M20) 40 meq PO ONETIME ONE Stop: 09/24/18 10:31 Last Admin: 09/24/18 10:36 Dose: 40 meq Propofol (Diprivan 20 Ml) Confirm Administered Dose 200 mg .ROUTE .STK-MED ONE Stop: 09/03/18 14:41 Propofol (Diprivan 20 Ml) Confirm Administered Dose 200 mg .ROUTE .STK-MED ONE Stop: 09/04/18 09:47 Propofol (Diprivan 20 Ml) Confirm Administered Dose 200 mg .ROUTE .STK-MED ONE Stop: 09/06/18 07:01 Propofol (Diprivan 20 Ml) Confirm Administered Dose 200 mg .ROUTE .STK-MED ONE Stop: 09/19/18 14:22 Rocuronium [place] (Zemuron) Confirm Administered Dose 50 mg .ROUTE .STK-MED ONE Stop: 09/03/18 14:41 Rocuronium [place] (Zemuron) Confirm Administered Dose 50 mg .ROUTE .STK-MED ONE Stop: 09/04/18 09:47 Rocuronium [place] (Zemuron) Confirm Administered Dose 50 mg .ROUTE .STK-MED ONE Stop: 09/20/18 07:50 Succinylcholine Chloride (Quelicin) Confirm Administered Dose 200 mg .ROUTE .STK -MED ONE Stop: 09/03/18 14:41 Succinylcholine Chloride (Quelicin) Confirm Administered Dose 200 mg .ROUTE .STK -MED ONE Stop: 09/04/18 09:47 Succinylcholine Chloride (Quelicin) Confirm Administered Dose 200 mg .ROUTE .STK -MED ONE Stop: 09/06/18 07:01 - Exam General: Lethargic Lungs: Normal Respiratory Effort, Decreased Breath Sounds Cardiovascular: Regular Rate, Regular Rhythm, No Murmurs GI/Abdominal Exam: Soft, No Distention Extremities: Other (Erythematous rash located on bilateral upper thigh area) Skin: Warm Wound/Incisions: Healing Well - Problem List Review Problem List Initiated/Reviewed/Updated: Yes - Assessment Assessment:: 1. 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 Exploratory laparotomy with a. sigmoid colon resection with end colotomy plus Rosa procedure b. drainage of pericolonic abscess plus diffuse peritoneal cavity washout c. small bowel resection Date of procedure: 09/03/2018, Surgeon Christiano Estrada MD 3.Indication of central venous access 4. Diffuse feculent perforation with second look laparotomy showing: a. pelvic right subphrenic with fluid collection b. segment small bowel with increasing necrosis adjacent mesentery 5. Insertion Left subclavian triple-lumen catheter 6. Second look laparotomy with: a. drainage peritoneal inflammatory fluid collection b. drainage right subphrenic inflammatory fluid collection d. plus small bowel resection 7. Date of procedure: 09/04/2018, Surgeon, Christiano Estrada MD 8. Hypoalbuminemia 9. Ventilator dependence: remains ventilator dependent 10. SP Bronchoscopy. Bony Olson MD on 09/12/2018 11. Large volume mucoid pulmonary secretions, cleaned by bronchoscopy; scant 12. Bronchial sputum culture: yeast isolated 13. Hypomagnesemia 14. Permanent ventilator dependence with: I. Placement of percutaneous 8 [place] tracheostomy tube. Date of surgery 09/20. Surgeon, Christiano Estrada MD 16. Hyperkalemia - Plan Plan:: 1. Administer Lasix 40 mg IV push at 8 AM and 8 PM, to facilitate diuresis 2. AM labs: CBC, CMP, Mg, ABG, Phosphorous and BNP 3. Ventilator weaning as tolerated 4. May benefit from transfer to a senior living critical care facility in the near future 5. Keep D5LR open for IV access 6. Administer Dulcolax suppository through ostomy bag to help resolve ileus 7. Continue TPN; discuss G-tube placement with son; probable placement of G tube tomorrow, 09/26/2018
[2018-09-25] MEDS: Furosemide 40 MG/4 ML VIAL IV SCH ×2 (07:56→20:09)
[2018-09-25] MEDS: Metoprolol Tartrate 25 MG Tab PO SCH ×2 (10:15→21:03)
[2018-09-25] MEDS: Bisacodyl 10 MG Supp SCH ×2 (10:15→21:05)
[2018-09-25] MEDS: Citalopram 20 MG Tab PO SCH (10:15)
--- NOTE | 2018-09-25 10:16 | PCM.PN ---
- General Info Date of Service: 09/25/18 Subjective Update: Ms. Muniz is continued to show slow improvement in overall strength, vital signs have remained stable and she has been afebrile. 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 She is unable to provide meaningful history concerning symptoms or review of systems. - Patient Data Vitals - Most Recent: Last Vital Signs Temp 96.6 F 09/25/18 07:59 Pulse 79 09/25/18 07:59 Resp 16 09/25/18 07:59 BP 126/61 09/25/18 07:59 Pulse Ox 100 09/25/18 07:59 Weight - Most Recent: 165 lb I&O - Last 24 Hours: Intake & Output 09/24/18 09/25/18 09/25/18 22:59 06:59 14:59 Intake Total 893 1416 Output Total 2029 675 Balance -1132 741 Lab Results Last 24 Hours: Laboratory Results - last 24 hr 09/25/18 09/25/18 09/25/18 Range/Units 05:00 05:00 05:00 WBC 7.9 (4.5-11.0) K/uL RBC 3.09 L (3.30-5.50) M/uL Hgb 9.9 L (12.0-15.0) g/dL Hct 29.8 L (36.0-48.0) % MCV 96 (80-98) fL MCH 32 H (27-31) pg MCHC 33 (32-36) % Plt Count 289 (150-400) K/uL Puncture Site R brachial ABG pH 7.462 H (7.350-7.450) ABG pCO2 42.3 H (35.0-42.0) mmHg ABG pO2 116.0 H (75.0-100.0) mmHg ABG HCO3 29.8 H (22.0-26.0) mmol/L ABG Total CO2 27.1 H (21.0-25.0) mmol/L ABG O2 Saturation 98.2 H (95.0-98.0) % ABG O2 Content 14.8 L (15.0-23.0) %vol ABG Base Excess 5.8 mm/L ABG Hemoglobin 10.7 L (12.0-16.0) g/dL ABG Oxyhemoglobin 97.1 % ABG Carboxyhemoglobin 0.5 (0.0-1.6) % ABG Methemoglobin 0.6 % O2 Delivery Device Ventilator Oxygen Flow Rate L Sodium 144 (140-148) mmol/L Potassium 4.5 (3.6-5.2) mmol/L Chloride 106 (100-108) mmol/L Carbon Dioxide 32 (21-32) mmol/L Anion Gap 6.5 (5.0-14.0) mmol/L BUN 42 H (7-18) mg/dL Creatinine 1.0 (0.6-1.0) mg/dL Est Cr Clr Drug Dosing 35.11 mL/min Estimated GFR (MDRD) 53 L (>60) Glucose 132 H (74-106) mg/dL Calcium 9.6 (8.5-10.1) mg/dL Phosphorus 6.9 H (2.5-4.9) mg/dL Magnesium 3.7 H D (1.8-2.4) mg/dL Total Bilirubin 0.7 (0.2-1.0) mg/dL AST 79 H (15-37) U/L ALT 196 H (12-78) U/L Alkaline Phosphatase 323 H (46-116) U/L NT-Pro-B Natriuret Pep 5664 H (5-450) pg/mL Total Protein 6.4 (6.4-8.2) g/dL Albumin 2.2 L (3.4-5.0) g/dL Globulin 4.2 H (2.3-3.5) g/dL Albumin/Globulin Ratio 0.5 L (1.2-2.2) Med Orders - Current: Current Medications Albuterol (Proventil Neb Soln) 2.5 mg NEB Q4H PRN PRN Reason: Dyspnea Albuterol/Ipratropium (Duoneb 3.0-0.5 Mg/3 Ml) 3 ml NEB QIDRT [facility] Last Admin: 09/25/18 07:17 Dose: 3 ml Bisacodyl (Dulcolax) 10 mg .XX BID [facility] Citalopram Hydrobromide (Celexa) 20 mg PO DAILY [facility] Last Admin: 09/24/18 09:32 Dose: 20 mg Dimethicone/Zinc Oxide (Rash Relief-Zinc Oxide [place]) 0 gm TOP ASDIRECTED PRN PRN Reason: Inflammation Last Admin: 09/21/18 15:28 Dose: 2 spray Furosemide (Lasix) 40 mg IV Q12H [facility] Stop: 09/25/18 20:01 Last Admin: 09/25/18 07:56 Dose: 40 mg Hydralazine HCl (Apresoline) 5 mg IVPUSH Q4H PRN PRN Reason: Hypertension Last Admin: 09/19/18 13:41 Dose: 5 mg Hydromorphone HCl (Dilaudid) 0.5 mg IVPUSH Q2H PRN PRN Reason: Pain Last Admin: 09/25/18 07:55 Dose: 0.5 mg Hydroxyzine HCl (Vistaril) 50 mg IM Q4H PRN PRN Reason: Pain Heparin Sodium (Porcine) 5,000 (units/ Sodium Chloride) 501 mls @ 5 mls/hr IV ASDIRECTED [facility] Last Admin: 09/22/18 14:59 Dose: 5 mls/hr Lactated Ringer's (Ringers, Lactated) 1,000 mls @ 25 mls/hr IV ASDIRECTED [facility] Last Admin: 09/18/18 21:11 Dose: 25 mls/hr Multivitamins/Minerals 10 ml/Chromium/Copper/Manganese/Seleni/Zn 1 ml/ Amino Ac/ Electrol/Dextrose/Calcium 1,011 mls @ 62 mls/hr IV .BY DURATION [facility] Amino Ac/Electrol/Dextrose/Calcium (Clinimix E 5/20) 1,000 mls @ 62 mls/hr IV .BY DURATION [facility] Last Admin: 09/24/18 21:03 Dose: 62 mls/hr Dextrose/Lactated Ringer's (Dextrose 5%-Lactated Ringers) 1,000 mls @ 25 mls/ hr IV ASDIRECTED [facility] Lorazepam (Ativan) 0.5 mg IVPUSH Q1H PRN PRN Reason: Anxiety Last Admin: 09/23/18 07:29 Dose: 0.5 mg Metoprolol Tartrate (Lopressor) 2.5 mg IVPUSH Q4H PRN PRN Reason: Hypertension Last Admin: 09/19/18 11:44 Dose: 2.5 mg Metoprolol Tartrate (Lopressor) 25 mg PO Q12H [facility] Last Admin: 09/24/18 21:13 Dose: 25 mg Nystatin (Nystop) 0 gm TOP QID [facility] Last Admin: 09/25/18 05:24 Dose: 1 applic Pantoprazole Sodium (Protonix) 40 mg PO BEDTIME [facility] Last Admin: 09/24/18 21:14 Dose: 40 mg Discontinued Medications Acetaminophen (Tylenol) 650 mg PO Q4H PRN PRN Reason: Pain (Mild 1-3)/fever Acetaminophen (Tylenol) 650 mg RECTAL Q4H PRN PRN Reason: Mild pain/fever Acetylcysteine (Mucomyst 20%) 200 mg NEB QIDRT [facility] Last Admin: 09/20/18 07:00 Dose: 200 mg Albuterol (Proventil Neb Soln) 2.5 mg NEB Q4H PRN PRN Reason: Shortness Of Breath/wheezing Albuterol/Ipratropium (Duoneb 3.0-0.5 Mg/3 Ml) 3 ml INH PREPRO ONE Stop: 09/03/18 17:01 Last Admin: 09/03/18 16:25 Dose: 3 ml Albuterol/Ipratropium (Duoneb 3.0-0.5 Mg/3 Ml) 3 ml NEB QID [facility] Last Admin: 09/13/18 21:11 Dose: 3 ml Aztreonam (Azactam) Confirm Administered Dose 1 gm .ROUTE .STK-MED ONE Stop: 09/03/18 21:44 Last Admin: 09/03/18 22:15 Dose: Not Given Benazepril HCl (Lotensin) 40 mg PO ONETIME ONE Stop: 09/03/18 10:41 Last Admin: 09/03/18 11:00 Dose: 40 mg Benazepril HCl (Lotensin) 40 mg NGTUBE DAILY [facility] Last Admin: 09/20/18 09:55 Dose: Not Given Bupivacaine HCl (Marcaine 0.5%) Confirm Administered Dose 50 ml .ROUTE .STK-MED ONE Stop: 09/07/18 06:48 Last Admin: 09/07/18 10:53 Dose: 18 ml Bupivacaine HCl (Marcaine 0.5%) Confirm Administered Dose 50 ml .ROUTE .STK-MED ONE Stop: 09/11/18 09:07 Last Admin: 09/11/18 10:49 Dose: 2 ml Ropivacaine 22 ml/Dexamethasone 8 mg/Epinephrine HCl 0.4 mg/ Sodium Chloride 55.6 ml 0 ml NERVRT ASDIRECTED NAHED Ropivacaine 22 ml/Dexamethasone 8 mg/Epinephrine HCl 0.4 mg/ Sodium Chloride 55.6 ml 0 ml NERVRT ASDIRECTED [facility] Last Admin: 09/04/18 14:03 Dose: 80 syringe Ropivacaine 22 ml/Dexamethasone 8 mg/Epinephrine HCl 0.4 mg/ Sodium Chloride 55.6 ml 0 ml NERVRT ASDIRECTED [facility] Last Admin: 09/07/18 11:07 Dose: 80 syringe Dexamethasone (Dexamethasone) Confirm Administered Dose 4 mg .ROUTE .STK-MED ONE Stop: 09/03/18 14:41 Dexamethasone (Dexamethasone) Confirm Administered Dose 4 mg .ROUTE .STK-MED ONE Stop: 09/04/18 09:47 Fentanyl (Sublimaze) 25 mcg IVPUSH ONETIME ONE Stop: 09/03/18 13:57 Last Admin: 09/03/18 14:16 Dose: 25 mcg Fentanyl (Sublimaze) 25 mcg IVPUSH Q2H PRN PRN Reason: Pain (severe 7-10) Fentanyl (Sublimaze) Confirm Administered Dose 250 mcg .ROUTE .STK-MED ONE Stop: 09/03/18 14:41 Fentanyl (Sublimaze) Confirm Administered Dose 250 mcg .ROUTE .STK-MED ONE Stop: 09/04/18 09:46 Fentanyl (Sublimaze) Confirm Administered Dose 250 mcg .ROUTE .STK-MED ONE Stop: 09/04/18 13:57 Fentanyl (Sublimaze) Confirm Administered Dose 100 mcg .ROUTE .STK-MED ONE Stop: 09/11/18 10:36 Fentanyl (Sublimaze) Confirm Administered Dose 250 mcg .ROUTE .STK-MED ONE Stop: 09/20/18 07:50 Furosemide (Lasix) 20 mg IVPUSH ONETIME ONE Stop: 09/04/18 15:10 Last Admin: 09/04/18 15:18 Dose: 20 mg Furosemide (Lasix) 40 mg IV ONETIME ONE Stop: 09/06/18 08:16 Last Admin: 09/06/18 08:26 Dose: 40 mg Furosemide (Lasix) 20 mg IV Q12H [facility] Stop: 09/07/18 20:01 Last Admin: 09/07/18 20:10 Dose: 20 mg Furosemide (Lasix) 20 mg IVPUSH Q12H [facility] Stop: 09/08/18 19:01 Last Admin: 09/08/18 19:50 Dose: 20 mg Furosemide (Lasix) 20 mg IVPUSH ONETIME ONE Stop: 09/09/18 07:01 Last Admin: 09/09/18 08:14 Dose: 20 mg Furosemide (Lasix) 20 mg IVPUSH ONETIME ONE Stop: 09/09/18 11:01 Last Admin: 09/09/18 12:38 Dose: 20 mg Furosemide (Lasix) 20 mg IVPUSH ONETIME ONE Stop: 09/09/18 20:01 Furosemide (Lasix) 20 mg IV Q8H NAHED Stop: 09/11/18 00:31 Last Admin: 09/10/18 23:50 Dose: 20 mg Furosemide (Lasix) 20 mg IV Q8H [facility] Stop: 09/12/18 00:01 Last Admin: 09/11/18 23:34 Dose: 20 mg Furosemide (Lasix) 20 mg IVPUSH Q8H [facility] Stop: 09/13/18 02:31 Last Admin: 09/13/18 02:39 Dose: 20 mg Furosemide (Lasix) 20 mg IVPUSH Q8H [facility] Stop: 09/14/18 02:31 Last Admin: 09/14/18 02:29 Dose: 20 mg Furosemide (Lasix) 40 mg IVPUSH ONETIME ONE Stop: 09/14/18 10:01 Last Admin: 09/14/18 13:28 Dose: 40 mg Furosemide (Lasix) 20 mg IVPUSH BID [facility] Furosemide (Lasix) 20 mg IVPUSH ONETIME ONE Stop: 09/15/18 06:34 Last Admin: 09/15/18 06:48 Dose: 20 mg Furosemide (Lasix) 40 mg IVPUSH Q8H [facility] Stop: 09/15/18 20:31 Last Admin: 09/15/18 20:39 Dose: 40 mg Furosemide (Lasix) 40 mg IV BID [facility] Stop: 09/16/18 21:01 Last Admin: 09/16/18 21:19 Dose: 40 mg Furosemide (Lasix) 40 mg IV Q12H [facility] Stop: 09/17/18 21:01 Last Admin: 09/17/18 21:11 Dose: 40 mg Furosemide (Lasix) 40 mg IV Q8H [facility] Stop: 09/18/18 16:01 Last Admin: 09/18/18 16:00 Dose: 40 mg Furosemide (Lasix) 40 mg IV Q12H [facility] Stop: 09/19/18 20:01 Last Admin: 09/19/18 19:23 Dose: 40 mg Furosemide (Lasix) 20 mg IVPUSH Q12H [facility] Stop: 09/20/18 22:01 Last Admin: 09/20/18 21:52 Dose: 20 mg Furosemide (Lasix) 20 mg IVPUSH Q8H [facility] Stop: 09/21/18 20:01 Last Admin: 09/21/18 19:37 Dose: 20 mg Furosemide (Lasix) 20 mg IVPUSH Q6H [facility] Stop: 09/22/18 14:01 Last Admin: 09/22/18 13:54 Dose: 20 mg Furosemide (Lasix) Confirm Administered Dose 40 mg .ROUTE .STK-MED ONE Stop: 09/23/18 06:19 Last Admin: 09/23/18 07:04 Dose: Not Given Furosemide (Lasix) 40 mg IVPUSH ONETIME ONE Stop: 09/23/18 06:21 Last Admin: 09/23/18 06:15 Dose: 40 mg Furosemide (Lasix) 40 mg IV ONETIME ONE Stop: 09/23/18 14:31 Last Admin: 09/23/18 14:05 Dose: 40 mg Furosemide (Lasix) 40 mg IVPUSH NOW ONE Stop: 09/23/18 18:01 Last Admin: 09/23/18 17:12 Dose: 40 mg Furosemide (Lasix) 40 mg IV NOW ONE Stop: 09/24/18 08:01 Last Admin: 09/24/18 07:57 Dose: 40 mg Furosemide (Lasix) 40 mg IV ONETIME ONE Stop: 09/24/18 16:01 Last Admin: 09/24/18 15:49 Dose: 40 mg Gentamicin Sulfate (Gentamicin) 1 mg IV .Pharmacy to Dose [facility] Stop: 09/08/18 14:31 Glycopyrrolate (Robinul) Confirm Administered Dose 1 mg .ROUTE .STK-MED ONE Stop: 09/03/18 14:41 Glycopyrrolate (Robinul) Confirm Administered Dose 1 mg .ROUTE .STK-MED ONE Stop: 09/04/18 09:47 Heparin Sodium (Porcine) (Heparin Sodium) Confirm Administered Dose 5,000 units .ROUTE .STK-MED ONE Stop: 09/03/18 18:32 Heparin Sodium (Porcine) (Heparin Lock Flush 100 Units/Ml) Confirm Administered Dose 500 units .ROUTE .STK-MED ONE Stop: 09/04/18 13:14 Heparin Sodium (Porcine) (Heparin Lock Flush 100 Units/Ml) Confirm Administered Dose 1,000 units .ROUTE .STK-MED ONE Stop: 09/11/18 09:07 Last Admin: 09/11/18 10:58 Dose: 1,000 units Heparin Sodium (Porcine) (Heparin Lock Flush 100 Units/Ml) Confirm Administered Dose 500 units .ROUTE .STK-MED ONE Stop: 09/11/18 10:44 Last Admin: 09/11/18 10:58 Dose: 500 units Hydromorphone HCl (Dilaudid) 0.5 mg IVPUSH ONETIME ONE Stop: 09/03/18 10:48 Last Admin: 09/03/18 11:00 Dose: 0.5 mg Hydromorphone HCl (Dilaudid) 0.5 mg IVPUSH ONETIME ONE Stop: 09/03/18 11:22 Last Admin: 09/03/18 11:25 Dose: 0.5 mg Hydromorphone HCl (Dilaudid) 0.5 mg IVPUSH ONETIME ONE Stop: 09/03/18 12:10 Last Admin: 09/03/18 12:12 Dose: 0.5 mg Hydromorphone HCl (Dilaudid) 0.5 mg IVPUSH ONETIME ONE Stop: 09/03/18 12:40 Last Admin: 09/03/18 12:44 Dose: 0.5 mg Hydromorphone HCl (Dilaudid) 1 mg IVPUSH ONETIME ONE Stop: 09/03/18 12:57 Last Admin: 09/03/18 13:00 Dose: 1 mg Hydromorphone HCl (Dilaudid Plate Glass Polisher 15 Mg In Ns 30 Ml) 0 mg IV ASDIRECTED PRN; Protocol PRN Reason: 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 Last Admin: 09/09/18 05:52 Dose: 15 mg Sodium Chloride (Normal Saline) 1,000 mls @ 1,000 mls/hr IV .BOLUS ONE Stop: 09/03/18 12:17 Last Admin: 09/03/18 11:25 Dose: 1,000 mls/hr Piperacillin/Tazobactam/ (Dextrose 4.5 gm/ Premix) 100 mls @ 200 mls/hr IV ONETIME ONE Stop: 09/03/18 13:29 Last Admin: 09/03/18 13:04 Dose: 200 mls/hr Sodium Chloride (Normal Saline) 1,000 mls @ 500 mls/hr IV ASDIRECTED [facility] Last Admin: 09/03/18 13:00 Dose: 500 mls/hr Lactated Ringer's (Ringers, Lactated) 1,000 mls @ 125 mls/hr IV ASDIRECTED [facility] Last Admin: 09/03/18 16:07 Dose: 125 mls/hr Aztreonam 2 gm/ Sodium (Chloride) 100 mls @ 200 mls/hr IV NOW ONE Stop: 09/03/18 15:29 Last Admin: 09/03/18 14:56 Dose: 200 mls/hr Meropenem 500 mg/ Sodium (Chloride) 50 mls @ 100 mls/hr IV ONCALL ONE Stop: 09/03/18 17:29 Last Admin: 09/03/18 16:25 Dose: 100 mls/hr Piperacillin/Tazobactam/ (Dextrose 3.375 gm/ Premix) 50 mls @ 100 mls/hr IV Q6H [facility] Last Admin: 09/03/18 22:15 Dose: Not Given Sodium Chloride (Normal Saline) Confirm Administered Dose 500 mls @ as directed .ROUTE .STK-MED ONE Stop: 09/03/18 18:33 Aztreonam/Dextrose 1 gm/ (Premix) 50 mls @ 100 mls/hr IV Q8HR [facility] Meropenem 500 mg/ Sodium (Chloride) 50 mls @ 100 mls/hr IV Q8H [facility] Last Admin: 09/10/18 05:17 Dose: 100 mls/hr Sodium Chloride (Normal Saline) Confirm Administered Dose 50 mls @ as directed .ROUTE .STK-MED ONE Stop: 09/03/18 22:01 Last Admin: 09/03/18 22:21 Dose: Not Given Aztreonam/Dextrose 1 gm/ (Premix) 50 mls @ 100 mls/hr IV Q8H [facility] Last Admin: 09/04/18 07:30 Dose: Not Given Dextrose/Lactated Ringer's (Dextrose 5%-Lactated Ringers) 1,000 mls @ 100 mls/ hr IV ASDIRECTED PRN PRN Reason: Hypotension Dextrose/Lactated Ringer's (Dextrose 5%-Lactated Ringers) 1,000 mls @ 100 mls/ hr IV ASDIRECTED NAHED Last Admin: 09/05/18 02:13 Dose: 100 mls/hr Lactated Ringer's (Ringers, Lactated) 1,000 mls @ 100 mls/hr IV ASDIRECTED NAHED Last Admin: 09/04/18 04:20 Dose: 100 mls/hr Lactated Ringer's (Ringers, Lactated) 500 mls @ 500 mls/hr IV .BOLUS NAHED Last Admin: 09/04/18 01:10 Dose: 500 mls/hr Lactated Ringer's (Ringers, Lactated) 500 mls @ 500 mls/hr IV .BOLUS NAHED Last Admin: 09/04/18 03:13 Dose: 500 mls/hr Propofol (Diprivan 100 Ml) 100 mls @ 1.361 mls/hr IV TITRATE NAHED; Protocol Last Titration: 09/04/18 07:52 Dose: 14 mcg/kg/min, 3.81 mls/hr Propofol (Diprivan 100 Ml) Confirm Administered Dose 100 mls @ as directed .ROUTE .STK-MED ONE Stop: 09/04/18 03:45 Last Admin: 09/04/18 03:59 Dose: Not Given Lactated Ringer's (Ringers, Lactated) 500 mls @ 999 mls/hr IV .BOLUS NAHED Last Admin: 09/04/18 06:10 Dose: 999 mls/hr Aztreonam/Dextrose 1 gm/ (Premix) 50 mls @ 100 mls/hr IV Q8H NAHED Last Admin: 09/07/18 08:15 Dose: 100 mls/hr Lactated Ringer's (Ringers, Lactated) 500 mls @ 500 mls/hr IV ASDIRECTED NAHED Last Admin: 09/04/18 21:04 Dose: 500 mls/hr Lactated Ringer's (Ringers, Lactated) Confirm Administered Dose 1,000 mls @ as directed .ROUTE .STK-MED ONE Stop: 09/04/18 13:11 Lactated Ringer's (Ringers, Lactated) Confirm Administered Dose 1,000 mls @ as directed .ROUTE .[email or web address] ONE Stop: 09/04/18 13:11 Sodium Chloride (Normal Saline) Confirm Administered Dose 10 mls @ as directed .ROUTE .K-MED ONE Stop: 09/04/18 13:15 Magnesium Sulfate 2 gm/ Premix 50 mls @ 25 mls/hr IV Q6H [facility] Stop: 09/06/18 11:59 Last Admin: 09/06/18 10:17 Dose: 25 mls/hr Lactated Ringer's (Ringers, Lactated) 500 mls @ 500 mls/hr IV ASDIRECTED [facility] Stop: 09/04/18 17:46 Heparin Sodium (Porcine) 5,000 (units/ Sodium Chloride) 501 mls @ 5 mls/hr IV ASDIRECTED [facility] Last Admin: 09/22/18 12:58 Dose: 5 mls/hr Lactated Ringer's (Ringers, Lactated) 500 mls @ 500 mls/hr IV ONETIME ONE Stop: 09/04/18 19:29 Last Admin: 09/04/18 18:37 Dose: 500 mls/hr Lactated Ringer's (Ringers, Lactated) 500 mls @ 1,000 mls/hr IV ONETIME ONE Stop: 09/04/18 23:30 Last Admin: 09/04/18 23:18 Dose: 1,000 mls/hr Lactated Ringer's (Ringers, Lactated) 500 mls @ 1,000 mls/hr IV ONETIME ONE Stop: 09/05/18 01:44 Last Admin: 09/05/18 01:15 Dose: 1,000 mls/hr Lactated Ringer's (Ringers, Lactated) 1,000 mls @ 150 mls/hr IV ASDIRECTED [facility] Last Admin: 09/05/18 02:13 Dose: 150 mls/hr Lactated Ringer's (Ringers, Lactated) 500 mls @ 1,000 mls/hr IV ONETIME ONE Stop: 09/05/18 03:38 Last Admin: 09/05/18 03:15 Dose: 1,000 mls/hr Multivitamins/Minerals 10 ml/Chromium/Copper/Manganese/Seleni/Zn 1 ml/ Amino Ac/ Electrol/Dextrose/Calcium 2,011 mls @ 82 mls/hr IV .BY DURATION [facility] Stop: 09/05/18 13:25 Last Admin: 09/05/18 13:32 Dose: Not Given Amino Ac/Electrol/Dextrose/Calcium (Clinimix E 515) 2,000 mls @ 82 mls/hr IV .BY DURATION NAHED Stop: 09/05/18 13:25 Vancomycin HCl 1 gm/ Sodium (Chloride) 250 mls @ 167 mls/hr IV Q24H NAH[facility] Last Admin: 09/05/18 12:34 Dose: 167 mls/hr Sodium Chloride (Normal Saline) 1,000 mls @ 50 mls/hr IV ASDIRECTED NAHED Last Admin: 09/05/18 12:51 Dose: 50 mls/hr Multivitamins/Minerals 10 ml/Chromium/Copper/Manganese/Seleni/Zn 1 ml/ Amino Ac/ Electrol/Dextrose/Calcium 2,011 mls @ 82 mls/hr IV .BY DURATION [facility] Stop: 09/08/18 13:20 Last Admin: 09/07/18 15:09 Dose: 82 mls/hr Amino Ac/Electrol/Dextrose/Calcium (Clinimix E 15) 2,000 mls @ 82 mls/hr IV .BY DURATION NAH[facility] Stop: 09/08/18 13:20 Vancomycin HCl 1 gm/ Sodium (Chloride) 250 mls @ 167 mls/hr IV Q24H NAHED Last Admin: 09/06/18 12:00 Dose: 167 mls/hr Sodium Chloride (Normal Saline) 500 mls @ 500 mls/hr IV ASDIRECTED ONE Stop: 09/05/18 16:29 Last Admin: 09/05/18 15:40 Dose: 500 mls/hr Sodium Chloride (Normal Saline) 1,000 mls @ 100 mls/hr IV ASDIRECTED NAHED Last Admin: 09/07/18 07:31 Dose: 100 mls/hr Propofol (Diprivan 100 Ml) 100 mls @ 1.361 mls/hr IV TITRATE NAHED; Protocol Last Titration: 09/17/18 03:30 Dose: 25 mcg/kg/min, 6.804 mls/hr Potassium Phosphate 20 mmole/ (Sodium Chloride) 106.6667 mls @ 35 mls/hr IV Q3H NA[facility] Stop: 09/07/18 17:29 Last Admin: 09/07/18 15:01 Dose: 35 mls/hr Albumin Human (Albumin 25%) 25 gm in 100 mls @ 25 mls/hr IV DAILY NAHED Stop: 09/09/18 12:59 Last Admin: 09/09/18 08:25 Dose: 25 mls/hr Albumin Human (Albumin 25%) 25 gm in 100 mls @ 25 mls/hr IV Q24H NAH[facility] Stop: 09/09/18 17:59 Last Admin: 09/09/18 14:32 Dose: 25 mls/hr Sodium Chloride (Normal Saline) 1,000 mls @ 0 mls/hr IV ASDIRECTED [facility] Last Admin: 09/19/18 05:15 Dose: 12.5 mls/hr Aztreonam 1 gm/ Sodium (Chloride) 50 mls @ 100 mls/hr IV Q8H [facility] Last Admin: 09/08/18 09:41 Dose: 100 mls/hr Vancomycin HCl 1 gm/ Sodium (Chloride) 250 mls @ 167 mls/hr IV Q18H [facility] Last Admin: 09/09/18 18:42 Dose: 167 mls/hr Sodium Chloride (Normal Saline) 1,000 mls @ 999 mls/hr IV .BOLUS ONE Stop: 09/07/18 17:39 Last Admin: 09/07/18 17:26 Dose: 999 mls/hr Potassium Acetate 40 meq/ (Sodium Chloride) 120 mls @ 30 mls/hr IV ONETIME ONE Stop: 09/08/18 13:59 Last Admin: 09/08/18 09:44 Dose: 30 mls/hr Multivitamins/Minerals 10 ml/Chromium/Copper/Manganese/Seleni/Zn 1 ml/ Amino Ac/ Electrol/Dextrose/Calcium 1,011 mls @ 62 mls/hr IV .BY DURATION [facility] Stop: 09/20/18 17:00 Last Admin: 09/19/18 09:10 Dose: 62 mls/hr Amino Ac/Electrol/Dextrose/Calcium (Clinimix E 09/28) 1,000 mls @ 62 mls/hr IV .BY DURATION [facility] Stop: 09/20/18 17:00 Last Admin: 09/20/18 01:21 Dose: 62 mls/hr Sodium Chloride (Normal Saline) 100 mls @ 3 mls/sec IV ASDIRECTED [facility] Stop: 09/08/18 15:00 Last Admin: 09/08/18 14:17 Dose: 3 mls/sec Azithromycin 500 mg/ Sodium (Chloride) 250 mls @ 250 mls/hr IV Q24H [facility] Last Admin: 09/09/18 15:27 Dose: 250 mls/hr Gentamicin Sulfate 228 mg/ (Sodium Chloride) 105.7 mls @ 100 mls/hr IV ONETIME ONE Stop: 09/08/18 17:03 Last Admin: 09/08/18 16:19 Dose: 100 mls/hr Potassium Phosphate 15 mmole/ (Sodium Chloride) 105 mls @ 55 mls/hr IV Q2H [facility] Stop: 09/09/18 12:55 Last Admin: 09/09/18 15:27 Dose: 55 mls/hr Gentamicin Sulfate 228 mg/ (Sodium Chloride) 105.7 mls @ 100 mls/hr IV Q36H [facility] Last Admin: 09/10/18 03:55 Dose: 100 mls/hr Sodium Chloride (Normal Saline) 500 mls @ 999 mls/hr IV .BOLUS ONE Stop: 09/09/18 16:34 Last Admin: 09/09/18 16:18 Dose: 999 mls/hr Sodium Chloride (Normal Saline) 500 mls @ 999 mls/hr IV .BOLUS ONE Stop: 09/09/18 17:35 Last Admin: 09/09/18 17:18 Dose: 999 mls/hr Sodium Chloride (Normal Saline) 1,000 mls @ 125 mls/hr IV ASDIRECTED [facility] Last Admin: 09/10/18 01:41 Dose: 125 mls/hr Lactated Ringer's (Ringers, Lactated) 1,000 mls @ 125 mls/hr IV ASDIRECTED [facility] Last Admin: 09/11/18 01:06 Dose: 125 mls/hr Meropenem 500 mg/ Sodium (Chloride) 25 mls @ 50 mls/hr IV Q8H [facility] Last Admin: 09/20/18 13:05 Dose: 50 mls/hr Gentamicin Sulfate 228 mg/ (Sodium Chloride) 55.7 mls @ 55 mls/hr IV Q36H [facility] Last Admin: 09/14/18 16:49 Dose: 55 mls/hr Azithromycin 500 mg/ Dextrose/ (Water) 250 mls @ 250 mls/hr IV Q24H [facility] Stop: 09/17/18 17:00 Last Admin: 09/14/18 15:42 Dose: 250 mls/hr Vancomycin HCl 1 gm/ Dextrose/ (Water) 250 mls @ 167 mls/hr IV Q24H [facility] Last Admin: 09/13/18 17:48 Dose: 167 mls/hr Fluconazole/Sodium Chloride (200 mg/ Premix) 100 mls @ 100 mls/hr IV Q24H [facility] Last Admin: 09/15/18 20:38 Dose: 100 mls/hr Magnesium Sulfate 2 gm/ Premix 50 mls @ 25 mls/hr IV Q6H [facility] Stop: 09/13/18 05:59 Last Admin: 09/13/18 03:31 Dose: 25 mls/hr Potassium Phosphate 22.5 mmole (/ Dextrose/Water) 107.5 mls @ 27 mls/hr IV Q4H [facility] Stop: 09/11/18 17:29 Last Admin: 09/11/18 14:45 Dose: 27 mls/hr Lactated Ringer's (Ringers, Lactated) 1,000 mls @ 75 mls/hr IV ASDIRECTED [facility] Last Admin: 09/13/18 22:27 Dose: 75 mls/hr Sodium Chloride (Normal Saline) Confirm Administered Dose 10 mls @ as directed .ROUTE .STK-MED ONE Stop: 09/11/18 10:41 Potassium Chloride 40 meq/ (Premix) 100 mls @ 25 mls/hr IV ONETIME ONE Stop: 09/13/18 12:59 Last Admin: 09/13/18 09:31 Dose: 25 mls/hr Potassium Chloride 40 meq/ (Premix) 100 mls @ 25 mls/hr IV ONETIME ONE Stop: 09/13/18 17:59 Last Admin: 09/13/18 13:11 Dose: 25 mls/hr Albumin Human (Albumin 25%) 25 gm in 100 mls @ 25 mls/hr IV Q24H [facility] Stop: 09/16/18 11:59 Last Admin: 09/16/18 09:02 Dose: 25 mls/hr Albumin Human (Albumin 25%) 25 gm in 100 mls @ 25 mls/hr IV Q24H [facility] Stop: 09/16/18 15:59 Last Admin: 09/16/18 12:33 Dose: 25 mls/hr Fluconazole/Sodium Chloride (400 mg/ Premix) 200 mls @ 100 mls/hr IV Q24H [facility] Last Admin: 09/24/18 20:22 Dose: 100 mls/hr Potassium Chloride 40 meq/ (Premix) 100 mls @ 25 mls/hr IV ONETIME ONE Stop: 09/16/18 11:59 Last Admin: 09/16/18 08:02 Dose: 25 mls/hr Potassium Chloride 20 meq/ (Premix) 100 mls @ 50 mls/hr IV ONETIME ONE Stop: 09/16/18 13:59 Last Admin: 09/16/18 11:36 Dose: 50 mls/hr Potassium Chloride 40 meq/ (Premix) 100 mls @ 25 mls/hr IV ONETIME ONE Stop: 09/17/18 11:59 Last Admin: 09/17/18 08:43 Dose: 25 mls/hr Magnesium Sulfate 2 gm/ Premix 50 mls @ 25 mls/hr IV Q6H NAHED Stop: 09/19/18 05:59 Last Admin: 09/19/18 03:26 Dose: 25 mls/hr Potassium Chloride 40 meq/ (Premix) 100 mls @ 25 mls/hr IV ONETIME ONE Stop: 09/18/18 12:59 Last Admin: 09/18/18 08:34 Dose: 25 mls/hr Potassium Chloride 40 meq/ (Premix) 100 mls @ 25 mls/hr IV ONETIME ONE Stop: 09/19/18 11:59 Last Admin: 09/19/18 08:19 Dose: 25 mls/hr Potassium Chloride 20 meq/ (Premix) 100 mls @ 50 mls/hr IV ONETIME ONE Stop: 09/19/18 13:59 Last Admin: 09/19/18 11:05 Dose: 50 mls/hr Propofol (Diprivan 100 Ml) 100 mls @ 2.354 mls/hr IV TITRATE NAHED; Protocol Last Admin: 09/20/18 05:35 Dose: 15 mcg/kg/min, 7.062 mls/hr Multivitamins/Minerals 10 ml/Chromium/Copper/Manganese/Seleni/Zn 1 ml/ Amino Ac/ Electrol/Dextrose/Calcium 2,011 mls @ 100 mls/hr IV .BY DURATION NAHED Amino Ac/Electrol/Dextrose/Calcium (Clinimix E 09/28) 2,000 mls @ 100 mls/hr IV .BY DURATION [facility] Multivitamins/Minerals 10 ml/Chromium/Copper/Manganese/Seleni/Zn 1 ml/ Amino Ac/ Electrol/Dextrose/Calcium 2,011 mls @ 62 mls/hr IV .BY DURATION [facility] Stop: 09/21/18 16:50 Last Admin: 09/20/18 17:31 Dose: 62 mls/hr Amino Ac/Electrol/Dextrose/Calcium (Clinimix E 5/20) 2,000 mls @ 62 mls/hr IV .BY DURATION [facility] Stop: 09/21/18 16:50 Potassium Chloride 40 meq/ (Premix) 100 mls @ 25 mls/hr IV ONETIME ONE Stop: 09/21/18 12:59 Last Admin: 09/21/18 09:38 Dose: 25 mls/hr Multivitamins/Minerals 10 ml/Chromium/Copper/Manganese/Seleni/Zn 1 ml/ Amino Ac/ Electrol/Dextrose/Calcium 2,011 mls @ 62 mls/hr IV .BY DURATION [facility] Last Admin: 09/23/18 16:06 Dose: 62 mls/hr Amino Ac/Electrol/Dextrose/Calcium (Clinimix E 5/20) 2,000 mls @ 62 mls/hr IV .BY DURATION [facility] Potassium Phosphate 22.5 mmole (/ Sodium Chloride) 257.5 mls @ 86 mls/hr IV Q3H [facility] Stop: 09/22/18 20:59 Last Admin: 09/22/18 17:50 Dose: 86 mls/hr Magnesium Sulfate 2 gm/ Premix 50 mls @ 25 mls/hr IV Q6H [facility] Stop: 09/25/18 05:59 Last Admin: 09/25/18 04:29 Dose: 25 mls/hr Dextrose/Lactated Ringer's (Dextrose 5%-Lactated Ringers) 1,000 mls @ 40 mls/ hr IV ASDIRECTED [facility] Last Admin: 09/24/18 07:51 Dose: 40 mls/hr Potassium Chloride 40 meq/ (Premix) 100 mls @ 25 mls/hr IV ONETIME ONE Stop: 09/24/18 12:59 Potassium Chloride 40 meq/ (Premix) 100 mls @ 25 mls/hr IV ONETIME ONE Stop: 09/24/18 17:59 Last Admin: 09/24/18 21:05 Dose: 25 mls/hr Potassium Phosphate 22.5 mmole (/ Sodium Chloride) 107.5 mls @ 27 mls/hr IV Q4H [facility] Stop: 09/25/18 01:59 Last Admin: 09/25/18 04:43 Dose: 27 mls/hr Multivitamins/Minerals 10 ml/Chromium/Copper/Manganese/Seleni/Zn 1 ml/ Amino Ac/ Electrol/Dextrose/Calcium 1,011 mls @ 62 mls/hr IV .BY DURATION [facility] Amino Ac/Electrol/Dextrose/Calcium (Clinimix E 5/20) 1,000 mls @ 62 mls/hr IV .BY DURATION [facility] Sodium Chloride (Normal Saline) 1,000 mls @ 25 mls/hr IV ASDIRECTED [facility] Iopamidol (Isovue-300 (61%)) 100 ml IV . DIRECTED PRN PRN Reason: RADIOLOGY EXAM Stop: 09/09/18 11:03 Last Admin: 09/08/18 14:16 Dose: 100 ml Ketoconazole (Nizoral 2% Crm) 0 gm TOP TID [facility] Last Admin: 09/24/18 13:53 Dose: Not Given Lidocaine HCl (Xylocaine 2% Viscous) Confirm Administered Dose 15 ml .ROUTE .STK -MED ONE Stop: 09/12/18 11:15 Lidocaine HCl (Xylocaine 4% Top Soln) Confirm Administered Dose 50 ml .ROUTE .STK-MED ONE Stop: 09/12/18 11:15 Lidocaine HCl (Xylocaine 4% Top Soln) Confirm Administered Dose 50 ml .ROUTE .STK-MED ONE Stop: 09/14/18 06:57 Last Admin: 09/14/18 07:20 Dose: 20 ml Lidocaine HCl (Xylocaine-Mpf 1%) 5 ml INJECT ONETIME ONE Stop: 09/17/18 06:31 Last Admin: 09/17/18 06:52 Dose: 5 ml Lidocaine HCl (Xylocaine 2% Viscous) Confirm Administered Dose 15 ml .ROUTE .STK -MED ONE Stop: 09/20/18 06:37 Lidocaine HCl (Xylocaine 4% Top Soln) Confirm Administered Dose 50 ml .ROUTE .STK-MED ONE Stop: 09/20/18 06:38 Last Admin: 09/20/18 09:05 Dose: 50 ml Lidocaine/Epinephrine (Xylocaine 1% With Epinephrine 1:100,000) Confirm Administered Dose 50 ml .ROUTE .STK-MED ONE Stop: 09/07/18 06:48 Last Admin: 09/07/18 10:54 Dose: 18 ml Lidocaine/Epinephrine (Xylocaine 1% With Epinephrine 1:100,000) Confirm Administered Dose 50 ml .ROUTE .STK-MED ONE Stop: 09/11/18 09:07 Last Admin: 09/11/18 10:49 Dose: 2 ml Lidocaine/Epinephrine (Xylocaine 1% With Epinephrine 1:100,000) Confirm Administered Dose 50 ml .ROUTE .STK-MED ONE Stop: 09/20/18 06:38 Lorazepam (Ativan) 0.5 mg IVPUSH Q4H PRN PRN Reason: Nausea/Vomiting Lorazepam (Ativan) 0.5 mg IVPUSH Q3H PRN PRN Reason: AGITATION Last Admin: 09/18/18 13:47 Dose: 0.5 mg Meropenem (Merrem) Confirm Administered Dose 1,000 mg .ROUTE .STK-MED ONE Stop: 09/03/18 17:54 Last Admin: 09/03/18 18:32 Dose: 3,500 mg Meropenem (Merrem) Confirm Administered Dose 1,000 mg .ROUTE .STK-MED ONE Stop: 09/03/18 18:04 Meropenem (Merrem) Confirm Administered Dose 2,000 mg .ROUTE .STK-MED ONE Stop: 09/03/18 18:18 Meropenem (Merrem) Confirm Administered Dose 500 mg .ROUTE .STK-MED ONE Stop: 09/07/18 06:48 Last Admin: 09/07/18 10:53 Dose: 500 mg Metoprolol Tartrate (Lopressor) 25 mg PO ONETIME ONE Stop: 09/03/18 10:41 Last Admin: 09/03/18 11:00 Dose: 25 mg Metoprolol Tartrate (Lopressor) 5 mg IVPUSH Q6H NAHED Last Admin: 09/08/18 09:25 Dose: 5 mg Metoprolol Tartrate (Lopressor) 2.5 mg IVPUSH Q6H NAHED Last Admin: 09/10/18 03:55 Dose: 2.5 mg Metoprolol Tartrate (Lopressor) Confirm Administered Dose 5 mg .ROUTE .STK-MED ONE Stop: 09/08/18 21:53 Last Admin: 09/08/18 22:19 Dose: Not Given Metoprolol Tartrate (Lopressor) 2.5 mg IVPUSH Q4H [facility] Last Admin: 09/11/18 21:25 Dose: Not Given Morphine Sulfate (Morphine) 2 mg IVPUSH Q1H PRN PRN Reason: Anxiety Last Admin: 09/19/18 16:04 Dose: 2 mg Naloxone HCl (Narcan) 0.1 mg IV ASDIRECTED PRN PRN Reason: decreased respiratory rate Neostigmine Methylsulfate (Neostigmine) Confirm Administered Dose 5 mg .ROUTE .STK-MED ONE Stop: 09/03/18 14:41 Neostigmine Methylsulfate (Neostigmine) Confirm Administered Dose 5 mg .ROUTE .K-MED ONE Stop: 09/04/18 09:47 Non-Formulary Medication (Total Parenteral Nutrition, Central) 0 ml IV ASDIRECTED [facility] Stop: 09/12/18 13:31 Non-Formulary Medication (Total Parenteral Nutrition, Central) 0 ml IV ASDIRECTED [facility] Stop: 09/13/18 13:00 Ondansetron HCl (Zofran Odt) 4 mg PO Q6H PRN PRN Reason: Nausea able to take PO Ondansetron HCl (Zofran) 4 mg IV Q6H PRN PRN Reason: Nausea/Vomiting Ondansetron HCl (Zofran) Confirm Administered Dose 4 mg .ROUTE .K-MED ONE Stop: 09/03/18 14:41 Ondansetron HCl (Zofran) Confirm Administered Dose 4 mg .ROUTE .STK-MED ONE Stop: 09/04/18 09:47 Pantoprazole Sodium (Protonix Iv) 40 mg IV Q12H [facility] Last Admin: 09/03/18 16:07 Dose: 40 mg Pantoprazole Sodium (Protonix Iv) 40 mg IV Q24H [facility] Last Admin: 09/22/18 22:21 Dose: 40 mg Piperacillin Sod/Tazobactam Sod (Zosyn) 10.125 gm .XX ASDIRECTED [facility] Stop: 09/04/18 15:00 Last Admin: 09/04/18 14:04 Dose: 10.125 gm Potassium Chloride (Klor-Con M20) 40 meq PO ONETIME ONE Stop: 09/24/18 10:31 Last Admin: 09/24/18 10:36 Dose: 40 meq Propofol (Diprivan 20 Ml) Confirm Administered Dose 200 mg .ROUTE .STK-MED ONE Stop: 09/03/18 14:41 Propofol (Diprivan 20 Ml) Confirm Administered Dose 200 mg .ROUTE .STK-MED ONE Stop: 09/04/18 09:47 Propofol (Diprivan 20 Ml) Confirm Administered Dose 200 mg .ROUTE .STK-MED ONE Stop: 09/06/18 07:01 Propofol (Diprivan 20 Ml) Confirm Administered Dose 200 mg .ROUTE .STK-MED ONE Stop: 09/19/18 14:22 Rocuronium Belden (Zemuron) Confirm Administered Dose 50 mg .ROUTE .STK-MED ONE Stop: 09/03/18 14:41 Rocuronium Belden (Zemuron) Confirm Administered Dose 50 mg .ROUTE .STK-MED ONE Stop: 09/04/18 09:47 Rocuronium Belden (Zemuron) Confirm Administered Dose 50 mg .ROUTE .STK-MED ONE Stop: 09/20/18 07:50 Succinylcholine Chloride (Quelicin) Confirm Administered Dose 200 mg .ROUTE .STK -MED ONE Stop: 09/03/18 14:41 Succinylcholine Chloride (Quelicin) Confirm Administered Dose 200 mg .ROUTE .STK -MED ONE Stop: 09/04/18 09:47 Succinylcholine Chloride (Quelicin) Confirm Administered Dose 200 mg .ROUTE .STK -MED ONE Stop: 09/06/18 07:01 - Exam Quality Assessment: Supplemental Oxygen (Ventilator), Central Line/PICC, Urine Catheter, DVT Prophylaxis General: Alert, Cooperative, Mild Distress Lungs: Clear to Auscultation, Decreased Breath Sounds. No: Rales, Rhonchi, Wheezing Cardiovascular: Regular Rate, Regular Rhythm, No Murmurs GI/Abdominal Exam: Soft, No Organomegaly, Tender. No: Distended, Guarding, Rigid, Rebound Extremities: Non-Tender, No Pedal Edema - Problem List Review Problem List Initiated/Reviewed/Updated: Yes - My Orders Last 24 Hours: My Active Orders 09/24/18 10:30 Nystatin [Nystop] See Dose Instructions TOP QID 09/25/18 10:11 Remove Rubin Catheter [Urinary Catheter Removal] [RC] Per Unit Routine - Plan Plan:: ASSESSMENT AND PLAN Acute respiratory failure with hypoxia and hypercapnia - status post placement of tracheostomy 09/20, -To need to work towards weaning from ventilator; IMV with pressure support during the day, assist control at night for rest -Furosemide 40 mg IV twice daily today -Up to chair 4 times daily -Physical therapy twice daily -Discontinue fluconazole -treat anxiety as indicated -Daily chest x-rays Perforated sigmoid colon with sepsis - Initial surgical resection on 09/03 and Second Look laparotomy on 09/04. Sepsis has resolved. Cultures grew out Klebsiella, Escherichia coli and anaerobic bacteria. stable from this standpoint and she has completed adequate anabiotic for this infection. Malnourished with essentially no oral intake in the last 2 weeks. -Pain control as indicated -TPN -PEG feeding tube placement, plan to begin enteral feedings Hypertension - no longer has NG. blood pressure has been stable. -Metoprolol 25 mg by mouth twice a day -PRN meds if SBP >175 Anemia of critical illness - hemoglobin now stable with no evidence for bleeding. -Transfuse if less than 8 since she is currently hemodynamically stable and oxygenating well Acute kidney injury - renal function back to normal and stable. She does have an elevated BUN out of proportion to her creatinine but this is slowly trending down. -Management as above -Repeat labs in the morning Mixed delirium - more alert and interactive off of sedation -Symptomatically management and treatment of the above conditions Maintenance issues - - DVT prophylaxis - mechanical - GI prophylaxis - PPI - Nutrition - nothing by mouth - Rubin catheter -will be removed today Disposition - I would anticipate discharge to an LTAC for ventilator weaning
[2018-09-25] MEDS: 1: AA 5%/Calcium/D20W/Lytes 1,000 ML with MVI, Adult with Vitamin K 10 ML, Chromium/Copp IV SCH ×3 (12:50)
[2018-09-25] MEDS: Dextrose 5%-Lactated Ringers 1,000 ML IV SCH (19:30)
[2018-09-25] MEDS: Pantoprazole 40 MG Tab.CR PO SCH (21:04)
[2018-09-26] MEDS: LORazepam 2 MG/ML SDV IVPUSH PRN (01:30)
[2018-09-26] MEDS: HYDROmorphone 0.5 MG/0.5 ML Syringe IVPUSH PRN ×3 (02:33→23:16)
[2018-09-26] MEDS: Nystatin Topical Powder 15 GM Bottle TOP SCH ×4 (05:29→21:35)
[2018-09-26] MEDS: Albuterol/Ipratropium 3.0-0.5 MG/3 ML Neb Soln NEB SCH ×4 (07:20→21:34)
[2018-09-26] MEDS: 1: AA 5%/Calcium/D20W/Lytes 1,000 ML with MVI, Adult with Vitamin K 10 ML, Chromium/Copp IV SCH ×3 (07:43)
[2018-09-26] MEDS ORDERED: Rocuronium 50 MG/5 ML Vial ONE (08:13)
[2018-09-26] MEDS ORDERED: Loperamide 1 MG/5 ML ML Solution 120 ML Bottle PO PRN (09:18)
--- NOTE | 2018-09-26 09:49 | PCM.PN ---
- General Info Date of Service: 09/26/18 Subjective Update: Ms. Muniz is status post gastrostomy feeding tube placed this morning by Dr. Estrada. 2 feedings will be initiated at 20 mL per hour and we will monitor for tolerance over the next 24 hours. She tolerated IMV of 8 with 10 of pressure support throughout the day yesterday. After she is recovered from sedation for gastrostomy, we'll go back to IMV today through the day and rest on assist control again at night. She continues to experience difficulty with communication because of her tracheostomy and weakness, unable to provide meaningful history concerning symptoms or review of systems. - Patient Data Vitals - Most Recent: Last Vital Signs Temp 97.7 F 09/26/18 07:43 Pulse 86 09/26/18 07:21 Resp 12 09/26/18 07:43 BP 151/59 H 09/26/18 07:43 Pulse Ox 97 09/26/18 07:43 Weight - Most Recent: 165 lb I&O - Last 24 Hours: Intake & Output 09/25/18 09/26/18 09/26/18 22:59 06:59 14:59 Intake Total 1096 989 Balance 1096 989 Lab Results Last 24 Hours: Laboratory Results - last 24 hr 09/26/18 09/26/18 09/26/18 Range/Units 03:55 03:55 04:00 WBC 7.9 (4.5-11.0) K/uL RBC 3.27 L (3.30-5.50) M/uL Hgb 10.0 L (12.0-15.0) g/dL Hct 32.6 L (36.0-48.0) % MCV 100 H (80-98) fL MCH 31 (27-31) pg MCHC 31 L (32-36) % Plt Count 289 (150-400) K/uL Puncture Site Lt radial ABG pH 7.450 (7.350-7.450) ABG pCO2 47.4 H (35.0-42.0) mmHg ABG pO2 94.0 (75.0-100.0) mmHg ABG HCO3 32.5 H (22.0-26.0) mmol/L ABG Total CO2 29.8 H (21.0-25.0) mmol/L ABG O2 Saturation 97.1 (95.0-98.0) % ABG O2 Content 14.1 L (15.0-23.0) %vol ABG Base Excess 7.9 mm/L ABG Hemoglobin 10.4 L (12.0-16.0) g/dL ABG Oxyhemoglobin 95.9 % ABG Carboxyhemoglobin 0.6 (0.0-1.6) % ABG Methemoglobin 0.6 % Woody Test Passed O2 Delivery Device Ventilator Oxygen Flow Rate L Sodium 146 (140-148) mmol/L Potassium 3.6 (3.6-5.2) mmol/L Chloride 106 (100-108) mmol/L Carbon Dioxide 33 H (21-32) mmol/L Anion Gap 10.6 (5.0-14.0) mmol/L BUN 44 H (7-18) mg/dL Creatinine 1.0 (0.6-1.0) mg/dL Est Cr Clr Drug Dosing 35.11 mL/min Estimated GFR (MDRD) 53 L (>60) Glucose 113 H (74-106) mg/dL Calcium 9.3 (8.5-10.1) mg/dL Phosphorus 6.2 H (2.5-4.9) mg/dL Total Bilirubin 0.6 (0.2-1.0) mg/dL AST 64 H (15-37) U/L ALT 158 H (12-78) U/L Alkaline Phosphatase 308 H (46-116) U/L NT-Pro-B Natriuret Pep 3880 H (5-450) pg/mL Total Protein 6.4 (6.4-8.2) g/dL Albumin 2.1 L (3.4-5.0) g/dL Globulin 4.3 H (2.3-3.5) g/dL Albumin/Globulin Ratio 0.5 L (1.2-2.2) Med Orders - Current: Current Medications Albuterol (Proventil Neb Soln) 2.5 mg NEB Q4H PRN PRN Reason: Dyspnea Albuterol/Ipratropium (Duoneb 3.0-0.5 Mg/3 Ml) 3 ml NEB QIDRT [facility] Last Admin: 09/26/18 07:20 Dose: 3 ml Bisacodyl (Dulcolax) 10 mg .XX BID [facility] Last Admin: 09/25/18 21:05 Dose: 10 mg Citalopram Hydrobromide (Celexa) 20 mg PO DAILY [facility] Last Admin: 09/25/18 10:15 Dose: 20 mg Dimethicone/Zinc Oxide (Rash Relief-Zinc Oxide [place]) 0 gm TOP ASDIRECTED PRN PRN Reason: Inflammation Last Admin: 09/21/18 15:28 Dose: 2 spray Erythromycin Ethylsuccinate (Eryped 200) 125 mg GTUBE Q6H [facility] Furosemide (Lasix) 40 mg IVPUSH NOW ONE Stop: 09/26/18 09:44 Hydralazine HCl (Apresoline) 5 mg IVPUSH Q4H PRN PRN Reason: Hypertension Last Admin: 09/19/18 13:41 Dose: 5 mg Hydromorphone HCl (Dilaudid) 0.5 mg IVPUSH Q2H PRN PRN Reason: Pain Last Admin: 09/26/18 02:33 Dose: 0.5 mg Hydroxyzine HCl (Vistaril) 50 mg IM Q4H PRN PRN Reason: Pain Heparin Sodium (Porcine) 5,000 (units/ Sodium Chloride) 501 mls @ 5 mls/hr IV ASDIRECTED [facility] Last Admin: 09/22/18 14:59 Dose: 5 mls/hr Lactated Ringer's (Ringers, Lactated) 1,000 mls @ 25 mls/hr IV ASDIRECTED [facility] Last Admin: 09/18/18 21:11 Dose: 25 mls/hr Multivitamins/Minerals 10 ml/Chromium/Copper/Manganese/Seleni/Zn 1 ml/ Amino Ac/ Electrol/Dextrose/Calcium 1,011 mls @ 62 mls/hr IV .BY DURATION [facility] Last Admin: 09/25/18 12:50 Dose: 62 mls/hr Amino Ac/Electrol/Dextrose/Calcium (Clinimix E 520) 1,000 mls @ 62 mls/hr IV .BY DURATION [facility] Last Admin: 09/26/18 07:43 Dose: 62 mls/hr Dextrose/Lactated Ringer's (Dextrose 5%-Lactated Ringers) 1,000 mls @ 25 mls/ hr IV ASDIRECTED [facility] Last Admin: 09/25/18 19:30 Dose: 25 mls/hr Loperamide HCl (Imodium) 2 mg PO ASDIRECTED PRN PRN Reason: LOOSE STOOLS Lorazepam (Ativan) 0.5 mg IVPUSH Q1H PRN PRN Reason: Anxiety Last Admin: 09/26/18 01:30 Dose: 0.5 mg Metoprolol Tartrate (Lopressor) 2.5 mg IVPUSH Q4H PRN PRN Reason: Hypertension Last Admin: 09/19/18 11:44 Dose: 2.5 mg Metoprolol Tartrate (Lopressor) 25 mg PO Q12H [facility] Last Admin: 09/25/18 21:03 Dose: 25 mg Nystatin (Nystop) 0 gm TOP QID [facility] Last Admin: 09/26/18 05:29 Dose: 1 applic Pantoprazole Sodium (Protonix) 40 mg PO BEDTIME [facility] Last Admin: 09/25/18 21:04 Dose: 40 mg Discontinued Medications Acetaminophen (Tylenol) 650 mg PO Q4H PRN PRN Reason: Pain (Mild 1-3)/fever Acetaminophen (Tylenol) 650 mg RECTAL Q4H PRN PRN Reason: Mild pain/fever Acetylcysteine (Mucomyst 20%) 200 mg NEB QIDRT [facility] Last Admin: 09/20/18 07:00 Dose: 200 mg Albuterol (Proventil Neb Soln) 2.5 mg NEB Q4H PRN PRN Reason: Shortness Of Breath/wheezing Albuterol/Ipratropium (Duoneb 3.0-0.5 Mg/3 Ml) 3 ml INH PREPRO ONE Stop: 09/03/18 17:01 Last Admin: 09/03/18 16:25 Dose: 3 ml Albuterol/Ipratropium (Duoneb 3.0-0.5 Mg/3 Ml) 3 ml NEB QID [facility] Last Admin: 09/13/18 21:11 Dose: 3 ml Aztreonam (Azactam) Confirm Administered Dose 1 gm .ROUTE .STK-MED ONE Stop: 09/03/18 21:44 Last Admin: 09/03/18 22:15 Dose: Not Given Benazepril HCl (Lotensin) 40 mg PO ONETIME ONE Stop: 09/03/18 10:41 Last Admin: 09/03/18 11:00 Dose: 40 mg Benazepril HCl (Lotensin) 40 mg NGTUBE DAILY [facility] Last Admin: 09/20/18 09:55 Dose: Not Given Bupivacaine HCl (Marcaine 0.5%) Confirm Administered Dose 50 ml .ROUTE .STK-MED ONE Stop: 09/07/18 06:48 Last Admin: 09/07/18 10:53 Dose: 18 ml Bupivacaine HCl (Marcaine 0.5%) Confirm Administered Dose 50 ml .ROUTE .STK-MED ONE Stop: 09/11/18 09:07 Last Admin: 09/11/18 10:49 Dose: 2 ml Ropivacaine 22 ml/Dexamethasone 8 mg/Epinephrine HCl 0.4 mg/ Sodium Chloride 55.6 ml 0 ml NERVRT ASDIRECTED [facility] Ropivacaine 22 ml/Dexamethasone 8 mg/Epinephrine HCl 0.4 mg/ Sodium Chloride 55.6 ml 0 ml NERVRT ASDIRECTED [facility] Last Admin: 09/04/18 14:03 Dose: 80 syringe Ropivacaine 22 ml/Dexamethasone 8 mg/Epinephrine HCl 0.4 mg/ Sodium Chloride 55.6 ml 0 ml NERVRT ASDIRECTED [facility] Last Admin: 09/07/18 11:07 Dose: 80 syringe Dexamethasone (Dexamethasone) Confirm Administered Dose 4 mg .ROUTE .STK-MED ONE Stop: 09/03/18 14:41 Dexamethasone (Dexamethasone) Confirm Administered Dose 4 mg .ROUTE .STK-MED ONE Stop: 09/04/18 09:47 Erythromycin Ethylsuccinate (Eryped 200) 125 mg PO Q6H [facility] Fentanyl (Sublimaze) 25 mcg IVPUSH ONETIME ONE Stop: 09/03/18 13:57 Last Admin: 09/03/18 14:16 Dose: 25 mcg Fentanyl (Sublimaze) 25 mcg IVPUSH Q2H PRN PRN Reason: Pain (severe 7-10) Fentanyl (Sublimaze) Confirm Administered Dose 250 mcg .ROUTE .STK-MED ONE Stop: 09/03/18 14:41 Fentanyl (Sublimaze) Confirm Administered Dose 250 mcg .ROUTE .STK-MED ONE Stop: 09/04/18 09:46 Fentanyl (Sublimaze) Confirm Administered Dose 250 mcg .ROUTE .STK-MED ONE Stop: 09/04/18 13:57 Fentanyl (Sublimaze) Confirm Administered Dose 100 mcg .ROUTE .STK-MED ONE Stop: 09/11/18 10:36 Fentanyl (Sublimaze) Confirm Administered Dose 250 mcg .ROUTE .STK-MED ONE Stop: 09/20/18 07:50 Furosemide (Lasix) 20 mg IVPUSH ONETIME ONE Stop: 09/04/18 15:10 Last Admin: 09/04/18 15:18 Dose: 20 mg Furosemide (Lasix) 40 mg IV ONETIME ONE Stop: 09/06/18 08:16 Last Admin: 09/06/18 08:26 Dose: 40 mg Furosemide (Lasix) 20 mg IV Q12H [facility] Stop: 09/07/18 20:01 Last Admin: 09/07/18 20:10 Dose: 20 mg Furosemide (Lasix) 20 mg IVPUSH Q12H [facility] Stop: 09/08/18 19:01 Last Admin: 09/08/18 19:50 Dose: 20 mg Furosemide (Lasix) 20 mg IVPUSH ONETIME ONE Stop: 09/09/18 07:01 Last Admin: 09/09/18 08:14 Dose: 20 mg Furosemide (Lasix) 20 mg IVPUSH ONETIME ONE Stop: 09/09/18 11:01 Last Admin: 09/09/18 12:38 Dose: 20 mg Furosemide (Lasix) 20 mg IVPUSH ONETIME ONE Stop: 09/09/18 20:01 Furosemide (Lasix) 20 mg IV Q8H [facility] Stop: 09/11/18 00:31 Last Admin: 09/10/18 23:50 Dose: 20 mg Furosemide (Lasix) 20 mg IV Q8H [facility] Stop: 09/12/18 00:01 Last Admin: 09/11/18 23:34 Dose: 20 mg Furosemide (Lasix) 20 mg IVPUSH Q8H [facility] Stop: 09/13/18 02:31 Last Admin: 09/13/18 02:39 Dose: 20 mg Furosemide (Lasix) 20 mg IVPUSH Q8H [facility] Stop: 09/14/18 02:31 Last Admin: 09/14/18 02:29 Dose: 20 mg Furosemide (Lasix) 40 mg IVPUSH ONETIME ONE Stop: 09/14/18 10:01 Last Admin: 09/14/18 13:28 Dose: 40 mg Furosemide (Lasix) 20 mg IVPUSH BID [facility] Furosemide (Lasix) 20 mg IVPUSH ONETIME ONE Stop: 09/15/18 06:34 Last Admin: 09/15/18 06:48 Dose: 20 mg Furosemide (Lasix) 40 mg IVPUSH Q8H [facility] Stop: 09/15/18 20:31 Last Admin: 09/15/18 20:39 Dose: 40 mg Furosemide (Lasix) 40 mg IV BID [facility] Stop: 09/16/18 21:01 Last Admin: 09/16/18 21:19 Dose: 40 mg Furosemide (Lasix) 40 mg IV Q12H [facility] Stop: 09/17/18 21:01 Last Admin: 09/17/18 21:11 Dose: 40 mg Furosemide (Lasix) 40 mg IV Q8H [facility] Stop: 09/18/18 16:01 Last Admin: 09/18/18 16:00 Dose: 40 mg Furosemide (Lasix) 40 mg IV Q12H [facility] Stop: 09/19/18 20:01 Last Admin: 09/19/18 19:23 Dose: 40 mg Furosemide (Lasix) 20 mg IVPUSH Q12H [facility] Stop: 09/20/18 22:01 Last Admin: 09/20/18 21:52 Dose: 20 mg Furosemide (Lasix) 20 mg IVPUSH Q8H [facility] Stop: 09/21/18 20:01 Last Admin: 09/21/18 19:37 Dose: 20 mg Furosemide (Lasix) 20 mg IVPUSH Q6H [facility] Stop: 09/22/18 14:01 Last Admin: 09/22/18 13:54 Dose: 20 mg Furosemide (Lasix) Confirm Administered Dose 40 mg .ROUTE .STK-MED ONE Stop: 09/23/18 06:19 Last Admin: 09/23/18 07:04 Dose: Not Given Furosemide (Lasix) 40 mg IVPUSH ONETIME ONE Stop: 09/23/18 06:21 Last Admin: 09/23/18 06:15 Dose: 40 mg Furosemide (Lasix) 40 mg IV ONETIME ONE Stop: 09/23/18 14:31 Last Admin: 09/23/18 14:05 Dose: 40 mg Furosemide (Lasix) 40 mg IVPUSH NOW ONE Stop: 09/23/18 18:01 Last Admin: 09/23/18 17:12 Dose: 40 mg Furosemide (Lasix) 40 mg IV NOW ONE Stop: 09/24/18 08:01 Last Admin: 09/24/18 07:57 Dose: 40 mg Furosemide (Lasix) 40 mg IV ONETIME ONE Stop: 09/24/18 16:01 Last Admin: 09/24/18 15:49 Dose: 40 mg Furosemide (Lasix) 40 mg IV Q12H [facility] Stop: 09/25/18 20:01 Last Admin: 09/25/18 20:09 Dose: 40 mg Gentamicin Sulfate (Gentamicin) 1 mg IV .Pharmacy to Dose [facility] Stop: 09/08/18 14:31 Glycopyrrolate (Robinul) Confirm Administered Dose 1 mg .ROUTE .STK-MED ONE Stop: 09/03/18 14:41 Glycopyrrolate (Robinul) Confirm Administered Dose 1 mg .ROUTE .STK-MED ONE Stop: 09/04/18 09:47 Heparin Sodium (Porcine) (Heparin Sodium) Confirm Administered Dose 5,000 units .ROUTE .STK-MED ONE Stop: 09/03/18 18:32 Heparin Sodium (Porcine) (Heparin Lock Flush 100 Units/Ml) Confirm Administered Dose 500 units .ROUTE .STK-MED ONE Stop: 09/04/18 13:14 Heparin Sodium (Porcine) (Heparin Lock Flush 100 Units/Ml) Confirm Administered Dose 1,000 units .ROUTE .STK-MED ONE Stop: 09/11/18 09:07 Last Admin: 09/11/18 10:58 Dose: 1,000 units Heparin Sodium (Porcine) (Heparin Lock Flush 100 Units/Ml) Confirm Administered Dose 500 units .ROUTE .STK-MED ONE Stop: 09/11/18 10:44 Last Admin: 09/11/18 10:58 Dose: 500 units Hydromorphone HCl (Dilaudid) 0.5 mg IVPUSH ONETIME ONE Stop: 09/03/18 10:48 Last Admin: 09/03/18 11:00 Dose: 0.5 mg Hydromorphone HCl (Dilaudid) 0.5 mg IVPUSH ONETIME ONE Stop: 09/03/18 11:22 Last Admin: 09/03/18 11:25 Dose: 0.5 mg Hydromorphone HCl (Dilaudid) 0.5 mg IVPUSH ONETIME ONE Stop: 09/03/18 12:10 Last Admin: 09/03/18 12:12 Dose: 0.5 mg Hydromorphone HCl (Dilaudid) 0.5 mg IVPUSH ONETIME ONE Stop: 09/03/18 12:40 Last Admin: 09/03/18 12:44 Dose: 0.5 mg Hydromorphone HCl (Dilaudid) 1 mg IVPUSH ONETIME ONE Stop: 09/03/18 12:57 Last Admin: 09/03/18 13:00 Dose: 1 mg Hydromorphone HCl (Dilaudid Director Of [employer] Service 15 Mg In Ns 30 Ml) 0 mg IV ASDIRECTED PRN; Protocol PRN Reason: [facility] DIRECT[facility] 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 Last Admin: 09/09/18 05:52 Dose: 15 mg Sodium Chloride (Normal Saline) 1,000 mls @ 1,000 mls/hr IV .BOLUS ONE Stop: 09/03/18 12:17 Last Admin: 09/03/18 11:25 Dose: 1,000 mls/hr Piperacillin/Tazobactam/ (Dextrose 4.5 gm/ Premix) 100 mls @ 200 mls/hr IV ONETIME ONE Stop: 09/03/18 13:29 Last Admin: 09/03/18 13:04 Dose: 200 mls/hr Sodium Chloride (Normal Saline) 1,000 mls @ 500 mls/hr IV ASDIRECTED [facility] Last Admin: 09/03/18 13:00 Dose: 500 mls/hr Lactated Ringer's (Ringers, Lactated) 1,000 mls @ 125 mls/hr IV ASDIRECTED [facility] Last Admin: 09/03/18 16:07 Dose: 125 mls/hr Aztreonam 2 gm/ Sodium (Chloride) 100 mls @ 200 mls/hr IV NOW ONE Stop: 09/03/18 15:29 Last Admin: 09/03/18 14:56 Dose: 200 mls/hr Meropenem 500 mg/ Sodium (Chloride) 50 mls @ 100 mls/hr IV ONCALL ONE Stop: 09/03/18 17:29 Last Admin: 09/03/18 16:25 Dose: 100 mls/hr Piperacillin/Tazobactam/ (Dextrose 3.375 gm/ Premix) 50 mls @ 100 mls/hr IV Q6H [facility] Last Admin: 09/03/18 22:15 Dose: Not Given Sodium Chloride (Normal Saline) Confirm Administered Dose 500 mls @ as directed .ROUTE .STK-MED ONE Stop: 09/03/18 18:33 Aztreonam/Dextrose 1 gm/ (Premix) 50 mls @ 100 mls/hr IV Q8HR [facility] Meropenem 500 mg/ Sodium (Chloride) 50 mls @ 100 mls/hr IV Q8H [facility] Last Admin: 09/10/18 05:17 Dose: 100 mls/hr Sodium Chloride (Normal Saline) Confirm Administered Dose 50 mls @ as directed .ROUTE .[facility] ONE Stop: 09/03/18 22:01 Last Admin: 09/03/18 22:21 Dose: Not Given Aztreonam/Dextrose 1 gm/ (Premix) 50 mls @ 100 mls/hr IV Q8H [facility] Last Admin: 09/04/18 07:30 Dose: Not Given Dextrose/Lactated Ringer's (Dextrose 5%-Lactated Ringers) 1,000 mls @ 100 mls/ hr IV ASDIRECTED PRN PRN Reason: Hypotension Dextrose/Lactated Ringer's (Dextrose 5%-Lactated Ringers) 1,000 mls @ 100 mls/ hr IV ASDIRECTED [facility] Last Admin: 09/05/18 02:13 Dose: 100 mls/hr Lactated Ringer's (Ringers, Lactated) 1,000 mls @ 100 mls/hr IV ASDIRECTED [facility] Last Admin: 09/04/18 04:20 Dose: 100 mls/hr Lactated Ringer's (Ringers, Lactated) 500 mls @ 500 mls/hr IV .BOLUS [facility] Last Admin: 09/04/18 01:10 Dose: 500 mls/hr Lactated Ringer's (Ringers, Lactated) 500 mls @ 500 mls/hr IV .BOLUS [facility] Last Admin: 09/04/18 03:13 Dose: 500 mls/hr Propofol (Diprivan 100 Ml) 100 mls @ 1.361 mls/hr IV TITRATE [facility]; Protocol Last Titration: 09/04/18 07:52 Dose: 14 mcg/kg/min, 3.81 mls/hr Propofol (Diprivan 100 Ml) Confirm Administered Dose 100 mls @ as directed .ROUTE [email or web address] ONE Stop: 09/04/18 03:45 Last Admin: 09/04/18 03:59 Dose: Not Given Lactated Ringer's (Ringers, Lactated) 500 mls @ 999 mls/hr IV .BOLUS [facility] Last Admin: 09/04/18 06:10 Dose: 999 mls/hr Aztreonam/Dextrose 1 gm/ (Premix) 50 mls @ 100 mls/hr IV Q8H [facility] Last Admin: 09/07/18 08:15 Dose: 100 mls/hr Lactated Ringer's (Ringers, Lactated) 500 mls @ 500 mls/hr IV ASDIRECTED [facility] Last Admin: 09/04/18 21:04 Dose: 500 mls/hr Lactated Ringer's (Ringers, Lactated) Confirm Administered Dose 1,000 mls @ as directed .ROUTE .[facility] ONE Stop: 09/04/18 13:11 Lactated Ringer's (Ringers, Lactated) Confirm Administered Dose 1,000 mls @ as directed .ROUTE .[facility] ONE Stop: 09/04/18 13:11 Sodium Chloride (Normal Saline) Confirm Administered Dose 10 mls @ as directed .ROUTE .[facility] ONE Stop: 09/04/18 13:15 Magnesium Sulfate 2 gm/ Premix 50 mls @ 25 mls/hr IV Q6H [facility] Stop: 09/06/18 11:59 Last Admin: 09/06/18 10:17 Dose: 25 mls/hr Lactated Ringer's (Ringers, Lactated) 500 mls @ 500 mls/hr IV ASDIRECTED [facility] Stop: 09/04/18 17:46 Heparin Sodium (Porcine) 5,000 (units/ Sodium Chloride) 501 mls @ 5 mls/hr IV ASDIRECTED [facility] Last Admin: 09/22/18 12:58 Dose: 5 mls/hr Lactated Ringer's (Ringers, Lactated) 500 mls @ 500 mls/hr IV ONETIME ONE Stop: 09/04/18 19:29 Last Admin: 09/04/18 18:37 Dose: 500 mls/hr Lactated Ringer's (Ringers, Lactated) 500 mls @ 1,000 mls/hr IV ONETIME ONE Stop: 09/04/18 23:30 Last Admin: 09/04/18 23:18 Dose: 1,000 mls/hr Lactated Ringer's (Ringers, Lactated) 500 mls @ 1,000 mls/hr IV ONETIME ONE Stop: 09/05/18 01:44 Last Admin: 09/05/18 01:15 Dose: 1,000 mls/hr Lactated Ringer's (Ringers, Lactated) 1,000 mls @ 150 mls/hr IV ASDIRECTED [facility] Last Admin: 09/05/18 02:13 Dose: 150 mls/hr Lactated Ringer's (Ringers, Lactated) 500 mls @ 1,000 mls/hr IV ONETIME ONE Stop: 09/05/18 03:38 Last Admin: 09/05/18 03:15 Dose: 1,000 mls/hr Multivitamins/Minerals 10 ml/Chromium/Copper/Manganese/Seleni/Zn 1 ml/ Amino Ac/ Electrol/Dextrose/Calcium 2,011 mls @ 82 mls/hr IV .BY DURATION [facility] Stop: 09/05/18 13:25 Last Admin: 09/05/18 13:32 Dose: Not Given Amino Ac/Electrol/Dextrose/Calcium (Clinimix E 5/15) 2,000 mls @ 82 mls/hr IV .BY DURATION [facility] Stop: 09/05/18 13:25 Vancomycin HCl 1 gm/ Sodium (Chloride) 250 mls @ 167 mls/hr IV Q24H [facility] Last Admin: 09/05/18 12:34 Dose: 167 mls/hr Sodium Chloride (Normal Saline) 1,000 mls @ 50 mls/hr IV ASDIRECTED [facility] Last Admin: 09/05/18 12:51 Dose: 50 mls/hr Multivitamins/Minerals 10 ml/Chromium/Copper/Manganese/Seleni/Zn 1 ml/ Amino Ac/ Electrol/Dextrose/Calcium 2,011 mls @ 82 mls/hr IV .BY DURATION [facility] Stop: 09/08/18 13:20 Last Admin: 09/07/18 15:09 Dose: 82 mls/hr Amino Ac/Electrol/Dextrose/Calcium (Clinimix E 5/15) 2,000 mls @ 82 mls/hr IV .BY DURATION [facility] Stop: 09/08/18 13:20 Vancomycin HCl 1 gm/ Sodium (Chloride) 250 mls @ 167 mls/hr IV Q24H [facility] Last Admin: 09/06/18 12:00 Dose: 167 mls/hr Sodium Chloride (Normal Saline) 500 mls @ 500 mls/hr IV ASDIRECTED ONE Stop: 09/05/18 16:29 Last Admin: 09/05/18 15:40 Dose: 500 mls/hr Sodium Chloride (Normal Saline) 1,000 mls @ 100 mls/hr IV ASDIRECTED [facility] Last Admin: 09/07/18 07:31 Dose: 100 mls/hr Propofol (Diprivan 100 Ml) 100 mls @ 1.361 mls/hr IV TITRATE [facility]; Protocol Last Titration: 09/17/18 03:30 Dose: 25 mcg/kg/min, 6.804 mls/hr Potassium Phosphate 20 mmole/ (Sodium Chloride) 106.6667 mls @ 35 mls/hr IV Q3H [facility] Stop: 09/07/18 17:29 Last Admin: 09/07/18 15:01 Dose: 35 mls/hr Albumin Human (Albumin 25%) 25 gm in 100 mls @ 25 mls/hr IV DAILY [facility] Stop: 09/09/18 12:59 Last Admin: 09/09/18 08:25 Dose: 25 mls/hr Albumin Human (Albumin 25%) 25 gm in 100 mls @ 25 mls/hr IV Q24H [facility] Stop: 09/09/18 17:59 Last Admin: 09/09/18 14:32 Dose: 25 mls/hr Sodium Chloride (Normal Saline) 1,000 mls @ 0 mls/hr IV ASDIRECTED [facility] Last Admin: 09/19/18 05:15 Dose: 12.5 mls/hr Aztreonam 1 gm/ Sodium (Chloride) 50 mls @ 100 mls/hr IV Q8H [facility] Last Admin: 09/08/18 09:41 Dose: 100 mls/hr Vancomycin HCl 1 gm/ Sodium (Chloride) 250 mls @ 167 mls/hr IV Q18H [facility] Last Admin: 09/09/18 18:42 Dose: 167 mls/hr Sodium Chloride (Normal Saline) 1,000 mls @ 999 mls/hr IV .BOLUS ONE Stop: 09/07/18 17:39 Last Admin: 09/07/18 17:26 Dose: 999 mls/hr Potassium Acetate 40 meq/ (Sodium Chloride) 120 mls @ 30 mls/hr IV ONETIME ONE Stop: 09/08/18 13:59 Last Admin: 09/08/18 09:44 Dose: 30 mls/hr Multivitamins/Minerals 10 ml/Chromium/Copper/Manganese/Seleni/Zn 1 ml/ Amino Ac/ Electrol/Dextrose/Calcium 1,011 mls @ 62 mls/hr IV .BY DURATION [facility] Stop: 09/20/18 17:00 Last Admin: 09/19/18 09:10 Dose: 62 mls/hr Amino Ac/Electrol/Dextrose/Calcium (Clinimix E 09/28) 1,000 mls @ 62 mls/hr IV .BY DURATION [facility] Stop: 09/20/18 17:00 Last Admin: 09/20/18 01:21 Dose: 62 mls/hr Sodium Chloride (Normal Saline) 100 mls @ 3 mls/sec IV ASDIRECTED [facility] Stop: 09/08/18 15:00 Last Admin: 09/08/18 14:17 Dose: 3 mls/sec Azithromycin 500 mg/ Sodium (Chloride) 250 mls @ 250 mls/hr IV Q24H [facility] Last Admin: 09/09/18 15:27 Dose: 250 mls/hr Gentamicin Sulfate 228 mg/ (Sodium Chloride) 105.7 mls @ 100 mls/hr IV ONETIME ONE Stop: 09/08/18 17:03 Last Admin: 09/08/18 16:19 Dose: 100 mls/hr Potassium Phosphate 15 mmole/ (Sodium Chloride) 105 mls @ 55 mls/hr IV Q2H [facility] Stop: 09/09/18 12:55 Last Admin: 09/09/18 15:27 Dose: 55 mls/hr Gentamicin Sulfate 228 mg/ (Sodium Chloride) 105.7 mls @ 100 mls/hr IV Q36H [facility] Last Admin: 09/10/18 03:55 Dose: 100 mls/hr Sodium Chloride (Normal Saline) 500 mls @ 999 mls/hr IV .BOLUS ONE Stop: 09/09/18 16:34 Last Admin: 09/09/18 16:18 Dose: 999 mls/hr Sodium Chloride (Normal Saline) 500 mls @ 999 mls/hr IV .BOLUS ONE Stop: 09/09/18 17:35 Last Admin: 09/09/18 17:18 Dose: 999 mls/hr Sodium Chloride (Normal Saline) 1,000 mls @ 125 mls/hr IV ASDIRECTED [facility] Last Admin: 09/10/18 01:41 Dose: 125 mls/hr Lactated Ringer's (Ringers, Lactated) 1,000 mls @ 125 mls/hr IV ASDIRECTED [facility] Last Admin: 09/11/18 01:06 Dose: 125 mls/hr Meropenem 500 mg/ Sodium (Chloride) 25 mls @ 50 mls/hr IV Q8H [facility] Last Admin: 09/20/18 13:05 Dose: 50 mls/hr Gentamicin Sulfate 228 mg/ (Sodium Chloride) 55.7 mls @ 55 mls/hr IV Q36H [facility] Last Admin: 09/14/18 16:49 Dose: 55 mls/hr Azithromycin 500 mg/ Dextrose/ (Water) 250 mls @ 250 mls/hr IV Q24H [facility] Stop: 09/17/18 17:00 Last Admin: 09/14/18 15:42 Dose: 250 mls/hr Vancomycin HCl 1 gm/ Dextrose/ (Water) 250 mls @ 167 mls/hr IV Q24H [facility] Last Admin: 09/13/18 17:48 Dose: 167 mls/hr Fluconazole/Sodium Chloride (200 mg/ Premix) 100 mls @ 100 mls/hr IV Q24H [facility] Last Admin: 09/15/18 20:38 Dose: 100 mls/hr Magnesium Sulfate 2 gm/ Premix 50 mls @ 25 mls/hr IV Q6H [facility] Stop: 09/13/18 05:59 Last Admin: 09/13/18 03:31 Dose: 25 mls/hr Potassium Phosphate 22.5 mmole (/ Dextrose/Water) 107.5 mls @ 27 mls/hr IV Q4H [facility] Stop: 09/11/18 17:29 Last Admin: 09/11/18 14:45 Dose: 27 mls/hr Lactated Ringer's (Ringers, Lactated) 1,000 mls @ 75 mls/hr IV ASDIRECTED [facility] Last Admin: 09/13/18 22:27 Dose: 75 mls/hr Sodium Chloride (Normal Saline) Confirm Administered Dose 10 mls @ as directed .ROUTE .STK-MED ONE Stop: 09/11/18 10:41 Potassium Chloride 40 meq/ (Premix) 100 mls @ 25 mls/hr IV ONETIME ONE Stop: 09/13/18 12:59 Last Admin: 09/13/18 09:31 Dose: 25 mls/hr Potassium Chloride 40 meq/ (Premix) 100 mls @ 25 mls/hr IV ONETIME ONE Stop: 09/13/18 17:59 Last Admin: 09/13/18 13:11 Dose: 25 mls/hr Albumin Human (Albumin 25%) 25 gm in 100 mls @ 25 mls/hr IV Q24H [facility] Stop: 09/16/18 11:59 Last Admin: 09/16/18 09:02 Dose: 25 mls/hr Albumin Human (Albumin 25%) 25 gm in 100 mls @ 25 mls/hr IV Q24H [facility] Stop: 09/16/18 15:59 Last Admin: 09/16/18 12:33 Dose: 25 mls/hr Fluconazole/Sodium Chloride (400 mg/ Premix) 200 mls @ 100 mls/hr IV Q24H [facility] Last Admin: 09/24/18 20:22 Dose: 100 mls/hr Potassium Chloride 40 meq/ (Premix) 100 mls @ 25 mls/hr IV ONETIME ONE Stop: 09/16/18 11:59 Last Admin: 09/16/18 08:02 Dose: 25 mls/hr Potassium Chloride 20 meq/ (Premix) 100 mls @ 50 mls/hr IV ONETIME ONE Stop: 09/16/18 13:59 Last Admin: 09/16/18 11:36 Dose: 50 mls/hr Potassium Chloride 40 meq/ (Premix) 100 mls @ 25 mls/hr IV ONETIME ONE Stop: 09/17/18 11:59 Last Admin: 09/17/18 08:43 Dose: 25 mls/hr Magnesium Sulfate 2 gm/ Premix 50 mls @ 25 mls/hr IV Q6H [facility] Stop: 09/19/18 05:59 Last Admin: 09/19/18 03:26 Dose: 25 mls/hr Potassium Chloride 40 meq/ (Premix) 100 mls @ 25 mls/hr IV ONETIME ONE Stop: 09/18/18 12:59 Last Admin: 09/18/18 08:34 Dose: 25 mls/hr Potassium Chloride 40 meq/ (Premix) 100 mls @ 25 mls/hr IV ONETIME ONE Stop: 09/19/18 11:59 Last Admin: 09/19/18 08:19 Dose: 25 mls/hr Potassium Chloride 20 meq/ (Premix) 100 mls @ 50 mls/hr IV ONETIME ONE Stop: 09/19/18 13:59 Last Admin: 09/19/18 11:05 Dose: 50 mls/hr Propofol (Diprivan 100 Ml) 100 mls @ 2.354 mls/hr IV TITRATE NAHED; Protocol Last Admin: 09/20/18 05:35 Dose: 15 mcg/kg/min, 7.062 mls/hr Multivitamins/Minerals 10 ml/Chromium/Copper/Manganese/Seleni/Zn 1 ml/ Amino Ac/ Electrol/Dextrose/Calcium 2,011 mls @ 100 mls/hr IV .BY DURATION NAHED Amino Ac/Electrol/Dextrose/Calcium (Clinimix E 5/20) 2,000 mls @ 100 mls/hr IV .BY DURATION NAHED Multivitamins/Minerals 10 ml/Chromium/Copper/Manganese/Seleni/Zn 1 ml/ Amino Ac/ Electrol/Dextrose/Calcium 2,011 mls @ 62 mls/hr IV .BY DURATION NAHED Stop: 09/21/18 16:50 Last Admin: 09/20/18 17:31 Dose: 62 mls/hr Amino Ac/Electrol/Dextrose/Calcium (Clinimix E 5/20) 2,000 mls @ 62 mls/hr IV .BY DURATION NAHED Stop: 09/21/18 16:50 Potassium Chloride 40 meq/ (Premix) 100 mls @ 25 mls/hr IV ONETIME ONE Stop: 09/21/18 12:59 Last Admin: 09/21/18 09:38 Dose: 25 mls/hr Multivitamins/Minerals 10 ml/Chromium/Copper/Manganese/Seleni/Zn 1 ml/ Amino Ac/ Electrol/Dextrose/Calcium 2,011 mls @ 62 mls/hr IV .BY DURATION NAHED Last Admin: 09/23/18 16:06 Dose: 62 mls/hr Amino Ac/Electrol/Dextrose/Calcium (Clinimix E 5/20) 2,000 mls @ 62 mls/hr IV .BY DURATION NAHED Potassium Phosphate 22.5 mmole (/ Sodium Chloride) 257.5 mls @ 86 mls/hr IV Q3H [facility] Stop: 09/22/18 20:59 Last Admin: 09/22/18 17:50 Dose: 86 mls/hr Magnesium Sulfate 2 gm/ Premix 50 mls @ 25 mls/hr IV Q6H [facility] Stop: 09/25/18 05:59 Last Admin: 09/25/18 04:29 Dose: 25 mls/hr Dextrose/Lactated Ringer's (Dextrose 5%-Lactated Ringers) 1,000 mls @ 40 mls/ hr IV ASDIRECTED [facility] Last Admin: 09/24/18 07:51 Dose: 40 mls/hr Potassium Chloride 40 meq/ (Premix) 100 mls @ 25 mls/hr IV ONETIME ONE Stop: 09/24/18 12:59 Potassium Chloride 40 meq/ (Premix) 100 mls @ 25 mls/hr IV ONETIME ONE Stop: 09/24/18 17:59 Last Admin: 09/24/18 21:05 Dose: 25 mls/hr Potassium Phosphate 22.5 mmole (/ Sodium Chloride) 107.5 mls @ 27 mls/hr IV Q4H [facility] Stop: 09/25/18 01:59 Last Admin: 09/25/18 04:43 Dose: 27 mls/hr Multivitamins/Minerals 10 ml/Chromium/Copper/Manganese/Seleni/Zn 1 ml/ Amino Ac/ Electrol/Dextrose/Calcium 1,011 mls @ 62 mls/hr IV .BY DURATION [facility] Amino Ac/Electrol/Dextrose/Calcium (Clinimix E 5/20) 1,000 mls @ 62 mls/hr IV .BY DURATION [facility] Sodium Chloride (Normal Saline) 1,000 mls @ 25 mls/hr IV ASDIRECTED [facility] Iopamidol (Isovue-300 (61%)) 100 ml IV . DIRECTED PRN PRN Reason: RADIOLOGY EXAM Stop: 09/09/18 11:03 Last Admin: 09/08/18 14:16 Dose: 100 ml Ketoconazole (Nizoral 2% Crm) 0 gm TOP TID [facility] Last Admin: 09/24/18 13:53 Dose: Not Given Lidocaine HCl (Xylocaine 2% Viscous) Confirm Administered Dose 15 ml .ROUTE .STK -MED ONE Stop: 09/12/18 11:15 Lidocaine HCl (Xylocaine 4% Top Soln) Confirm Administered Dose 50 ml .ROUTE .STK-MED ONE Stop: 09/12/18 11:15 Lidocaine HCl (Xylocaine 4% Top Soln) Confirm Administered Dose 50 ml .ROUTE .STK-MED ONE Stop: 09/14/18 06:57 Last Admin: 09/14/18 07:20 Dose: 20 ml Lidocaine HCl (Xylocaine-Mpf 1%) 5 ml INJECT ONETIME ONE Stop: 09/17/18 06:31 Last Admin: 09/17/18 06:52 Dose: 5 ml Lidocaine HCl (Xylocaine 2% Viscous) Confirm Administered Dose 15 ml .ROUTE .STK -MED ONE Stop: 09/20/18 06:37 Lidocaine HCl (Xylocaine 4% Top Soln) Confirm Administered Dose 50 ml .ROUTE .STK-MED ONE Stop: 09/20/18 06:38 Last Admin: 09/20/18 09:05 Dose: 50 ml Lidocaine/Epinephrine (Xylocaine 1% With Epinephrine 1:100,000) Confirm Administered Dose 50 ml .ROUTE .STK-MED ONE Stop: 09/07/18 06:48 Last Admin: 09/07/18 10:54 Dose: 18 ml Lidocaine/Epinephrine (Xylocaine 1% With Epinephrine 1:100,000) Confirm Administered Dose 50 ml .ROUTE .STK-MED ONE Stop: 09/11/18 09:07 Last Admin: 09/11/18 10:49 Dose: 2 ml Lidocaine/Epinephrine (Xylocaine 1% With Epinephrine 1:100,000) Confirm Administered Dose 50 ml .ROUTE .STK-MED ONE Stop: 09/20/18 06:38 Lorazepam (Ativan) 0.5 mg IVPUSH Q4H PRN PRN Reason: Nausea/Vomiting Lorazepam (Ativan) 0.5 mg IVPUSH Q3H PRN PRN Reason: AGITATION Last Admin: 09/18/18 13:47 Dose: 0.5 mg Meropenem (Merrem) Confirm Administered Dose 1,000 mg .ROUTE .STK-MED ONE Stop: 09/03/18 17:54 Last Admin: 09/03/18 18:32 Dose: 3,500 mg Meropenem (Merrem) Confirm Administered Dose 1,000 mg .ROUTE .STK-MED ONE Stop: 09/03/18 18:04 Meropenem (Merrem) Confirm Administered Dose 2,000 mg .ROUTE .STK-MED ONE Stop: 09/03/18 18:18 Meropenem (Merrem) Confirm Administered Dose 500 mg .ROUTE .STK-MED ONE Stop: 09/07/18 06:48 Last Admin: 09/07/18 10:53 Dose: 500 mg Metoprolol Tartrate (Lopressor) 25 mg PO ONETIME ONE Stop: 09/03/18 10:41 Last Admin: 09/03/18 11:00 Dose: 25 mg Metoprolol Tartrate (Lopressor) 5 mg IVPUSH Q6H [facility] Last Admin: 09/08/18 09:25 Dose: 5 mg Metoprolol Tartrate (Lopressor) 2.5 mg IVPUSH Q6H [facility] Last Admin: 09/10/18 03:55 Dose: 2.5 mg Metoprolol Tartrate (Lopressor) Confirm Administered Dose 5 mg .ROUTE .STK-MED ONE Stop: 09/08/18 21:53 Last Admin: 09/08/18 22:19 Dose: Not Given Metoprolol Tartrate (Lopressor) 2.5 mg IVPUSH Q4H [facility] Last Admin: 09/11/18 21:25 Dose: Not Given Morphine Sulfate (Morphine) 2 mg IVPUSH Q1H PRN PRN Reason: Anxiety Last Admin: 09/19/18 16:04 Dose: 2 mg Naloxone HCl (Narcan) 0.1 mg IV ASDIRECTED PRN PRN Reason: decreased respiratory rate Neostigmine Methylsulfate (Neostigmine) Confirm Administered Dose 5 mg .ROUTE .STK-MED ONE Stop: 09/03/18 14:41 Neostigmine Methylsulfate (Neostigmine) Confirm Administered Dose 5 mg .ROUTE .STK-MED ONE Stop: 09/04/18 09:47 Non-Formulary Medication (Total Parenteral Nutrition, Central) 0 ml IV ASDIRECTED [facility] Stop: 09/12/18 13:31 Non-Formulary Medication (Total Parenteral Nutrition, Central) 0 ml IV ASDIRECTED [facility] Stop: 09/13/18 13:00 Ondansetron HCl (Zofran Odt) 4 mg PO Q6H PRN PRN Reason: Nausea able to take PO Ondansetron HCl (Zofran) 4 mg IV Q6H PRN PRN Reason: Nausea/Vomiting Ondansetron HCl (Zofran) Confirm Administered Dose 4 mg .ROUTE .STK-MED ONE Stop: 09/03/18 14:41 Ondansetron HCl (Zofran) Confirm Administered Dose 4 mg .ROUTE .STK-MED ONE Stop: 09/04/18 09:47 Pantoprazole Sodium (Protonix Iv) 40 mg IV Q12H [facility] Last Admin: 09/03/18 16:07 Dose: 40 mg Pantoprazole Sodium (Protonix Iv) 40 mg IV Q24H [facility] Last Admin: 09/22/18 22:21 Dose: 40 mg Piperacillin Sod/Tazobactam Sod (Zosyn) 10.125 gm .XX ASDIRECTED [facility] Stop: 09/04/18 15:00 Last Admin: 09/04/18 14:04 Dose: 10.125 gm Potassium Chloride (Klor-Con M20) 40 meq PO ONETIME ONE Stop: 09/24/18 10:31 Last Admin: 09/24/18 10:36 Dose: 40 meq Propofol (Diprivan 20 Ml) Confirm Administered Dose 200 mg .ROUTE .STK-MED ONE Stop: 09/03/18 14:41 Propofol (Diprivan 20 Ml) Confirm Administered Dose 200 mg .ROUTE .STK-MED ONE Stop: 09/04/18 09:47 Propofol (Diprivan 20 Ml) Confirm Administered Dose 200 mg .ROUTE .STK-MED ONE Stop: 09/06/18 07:01 Propofol (Diprivan 20 Ml) Confirm Administered Dose 200 mg .ROUTE .STK-MED ONE Stop: 09/19/18 14:22 Rocuronium Pedro (Zemuron) Confirm Administered Dose 50 mg .ROUTE .STK-MED ONE Stop: 09/03/18 14:41 Rocuronium Pedro (Zemuron) Confirm Administered Dose 50 mg .ROUTE .STK-MED ONE Stop: 09/04/18 09:47 Rocuronium Pedro (Zemuron) Confirm Administered Dose 50 mg .ROUTE .STK-MED ONE Stop: 09/20/18 07:50 Rocuronium Pedro (Zemuron) Confirm Administered Dose 50 mg .ROUTE .STK-MED ONE Stop: 09/26/18 08:14 Succinylcholine Chloride (Quelicin) Confirm Administered Dose 200 mg .ROUTE .STK -MED ONE Stop: 09/03/18 14:41 Succinylcholine Chloride (Quelicin) Confirm Administered Dose 200 mg .ROUTE .STK -MED ONE Stop: 09/04/18 09:47 Succinylcholine Chloride (Quelicin) Confirm Administered Dose 200 mg .ROUTE .STK -MED ONE Stop: 09/06/18 07:01 - Exam Quality Assessment: Supplemental Oxygen (Ventilator), Central Line/PICC, Urine Catheter, DVT Prophylaxis General: Alert, Cooperative, Mild Distress Lungs: Clear to Auscultation, Normal Respiratory Effort, Decreased Breath Sounds Cardiovascular: Regular Rate, Regular Rhythm, No Murmurs GI/Abdominal Exam: Soft, No Organomegaly, Tender. No: Distended, Guarding, Rigid, Rebound Extremities: Non-Tender, No Pedal Edema - Problem List Review Problem List Initiated/Reviewed/Updated: Yes - My Orders Last 24 Hours: My Active Orders 09/26/18 09:43 Furosemide [Lasix] 40 mg IVPUSH NOW ONE - Plan Plan:: ASSESSMENT AND PLAN Acute respiratory failure with hypoxia and hypercapnia - status post placement of tracheostomy 09/20, she has tolerated IMV with a rate of 8 and 10 of pressure support throughout the day yesterday. Was rested on full ventilatory support during the night. -To need to work towards weaning from ventilator; IMV with pressure support during the day, assist control at night for rest. If she tolerates IMV throughout the day today, consider trial of trach collar during the day tomorrow. -Furosemide 40 mg IV now -Up to chair 4 times daily -Physical therapy twice daily -treat anxiety as indicated -Daily chest x-rays Perforated sigmoid colon with sepsis - Initial surgical resection on 09/03 and Second Look laparotomy on 09/04. Sepsis has resolved. Cultures grew out Klebsiella, Escherichia coli and anaerobic bacteria. stable from this standpoint and she has completed adequate anabiotic for this infection. PEG feeding tube placed earlier today. -TPN-decrease rate with initiation of tube feedings -PEG feeding tube placement, plan to begin enteral feedings today at 20 mL per hour Hypertension - no longer has NG. blood pressure has been stable. -Metoprolol 25 mg by mouth twice a day -PRN meds if SBP >175 Anemia of critical illness - hemoglobin now stable with no evidence for bleeding. -Transfuse if less than 8 since she is currently hemodynamically stable and oxygenating well Acute kidney injury - renal function back to normal and stable. She does have an elevated BUN out of proportion to her creatinine but this is slowly trending down. -Management as above -Repeat labs in the morning Mixed delirium - more alert and interactive off of sedation -Symptomatically management and treatment of the above conditions Maintenance issues - - DVT prophylaxis - mechanical - GI prophylaxis - PPI - Nutrition - TPN/tube feedings - Rubin catheter -will be removed today Disposition - I would anticipate discharge to an LTAC for ventilator weaning
[2018-09-26] MEDS ORDERED: Furosemide 40 MG/4 ML VIAL IVPUSH ONE (09:50)
[2018-09-26] MEDS ORDERED: Erythromycin Ethylsuccinate Susp 200 MG/5 ML 100 ML Bottle PO SCH (10:00)
[2018-09-26] MEDS: Citalopram 20 MG Tab PO SCH (10:09)
[2018-09-26] MEDS: Metoprolol Tartrate 25 MG Tab PO SCH ×2 (10:09→21:34)
[2018-09-26] MEDS: Erythromycin Ethylsuccinate Susp 200 MG/5 ML 100 ML Bottle GTUBE SCH ×3 (10:09→21:35)
[2018-09-26] MEDS: Bisacodyl 10 MG Supp SCH ×2 (10:10→21:35)
--- NOTE | 2018-09-26 17:59 | OR ---
DATE OF PROCEDURE: 09/26/2018 PREOPERATIVE DIAGNOSIS: Indications for enteral feeding. POSTOPERATIVE DIAGNOSIS: Indications for enteral feeding. OPERATIVE PROCEDURE: Percutaneous endoscopic gastrostomy tube placement (52038). ANESTHESIA: Local plus IV sedation. INDICATION FOR PROCEDURE: A 78-year-old chronically ventilated, who thus far has not been reestablishing much in the way of oral intake and has been relying on TPN for her nutritional sustenance. Given this, at this point, a gastrostomy tube is to be placed with initiation of gastrostomy tube feedings thereafter. Potential risks of the procedure including bleeding, infection, injury to the viscera in the area, possible dislodgement of the tube over time were reviewed with the patient's son, and he wishes to proceed. DETAILS OF PROCEDURE: The patient was taken to the operating room and placed in a supine position. IV sedation was administered, after which the upper abdomen was prepped and draped. The upper GI endoscope was passed orally through the length of the esophagus and into the stomach. The patient was noted to have no significant problems with gastritis. A small amount of clear liquid was present in the stomach within no bile per se. The was then identified in the left subcostal area, just to the left of the midline, and the skin overlying that then anesthetized with 1% lidocaine. The aspiration needle was then passed through the abdominal wall and into the stomach. Once that was recovered, guidewire was placed in the stomach. This was then retrieved with the gastroscope, which was then withdrawn, allowing the wire back out of the mouth. A 1 cm incision was then made at the skin puncture site and gastrostomy tube complex was attached to the wire and gastrostomy tube then pulled down into position without difficulty and was secured with some 2-0 nylon stitch. Endoscopic confirmation of adequate placement of the tube was then undertaken. Dressing was applied. The patient was taken to the recovery room in a satisfactory condition. Christiano Estrada MD /[id number]
[2018-09-26] MEDS: Pantoprazole 40 MG Tab.CR PO SCH (21:35)
[2018-09-27] MEDS: Erythromycin Ethylsuccinate Susp 200 MG/5 ML 100 ML Bottle GTUBE SCH ×4 (04:34→21:31)
[2018-09-27] MEDS: Nystatin Topical Powder 15 GM Bottle TOP SCH ×4 (05:49→21:32)
[2018-09-27] MEDS: Dextrose 5%-Lactated Ringers 1,000 ML IV SCH (05:50)
[2018-09-27] MEDS ORDERED: 1: AA 5%/Calcium/D20W/Lytes 1,000 ML with MVI, Adult with Vitamin K 10 ML, Chromium/Copp IV SCH ×6 (06:30)
[2018-09-27] MEDS: Albuterol/Ipratropium 3.0-0.5 MG/3 ML Neb Soln NEB SCH ×4 (07:24→21:33)
[2018-09-27] MEDS: Metoprolol Tartrate 25 MG Tab PO SCH ×2 (09:34→21:31)
[2018-09-27] MEDS: Bisacodyl 10 MG Supp SCH ×2 (09:36→21:33)
[2018-09-27] MEDS: Citalopram 20 MG Tab PO SCH (09:36)
[2018-09-27] MEDS: Potassium Phosphates 22.5 MMOLE in Sodium Chloride 0.9% 100 ML IV SCH ×2 (09:37→13:53)
--- NOTE | 2018-09-27 09:52 | PCM.PN ---
- General Info Date of Service: 09/27/18 Subjective Update: Ms. Muniz failed a trial of trach collar this morning, she became moderately agitated and started to slide out of her chair but did not fall. She is back resting on assist control at the present time and we'll plan to transition back to IMV with a rate of 6 later this morning. She is otherwise remained hemodynamically stable and is afebrile. Urinary catheter was removed yesterday so we currently do not have accurate I's and O's, renal function is stable. She remains unable to provide meaningful information concerning symptoms review systems because of tracheostomy and mechanical ventilation. - Patient Data Vitals - Most Recent: Last Vital Signs Temp 98.8 F 09/27/18 04:00 Pulse 110 H 09/27/18 09:34 Resp 18 09/27/18 08:00 BP 193/98 H 09/27/18 09:34 Pulse Ox 94 L 09/27/18 09:05 Weight - Most Recent: 145 lb 8 oz I&O - Last 24 Hours: Intake & Output 09/26/18 09/27/18 09/27/18 22:59 06:59 14:59 Intake Total 1144 1130 107 Output Total 50 25 Balance 1094 1130 82 Lab Results Last 24 Hours: Laboratory Results - last 24 hr 09/26/18 09/27/18 09/27/18 Range/Units 10:20 03:59 03:59 WBC 9.1 (4.5-11.0) K/uL RBC 3.35 (3.30-5.50) M/uL Hgb 10.4 L (12.0-15.0) g/dL Hct 33.7 L (36.0-48.0) % MCV 101 H (80-98) fL MCH 31 (27-31) pg MCHC 31 L (32-36) % Plt Count 275 (150-400) K/uL Puncture Site Lt brachial ABG pH 7.472 H (7.350-7.450) ABG pCO2 43.9 H (35.0-42.0) mmHg ABG pO2 99.0 (75.0-100.0) mmHg ABG HCO3 31.7 H (22.0-26.0) mmol/L ABG Total CO2 28.8 H (21.0-25.0) mmol/L ABG O2 Saturation 97.4 (95.0-98.0) % ABG O2 Content 14.7 L (15.0-23.0) %vol ABG Base Excess 7.6 mm/L ABG Hemoglobin 10.8 L (12.0-16.0) g/dL ABG Oxyhemoglobin 96.3 % ABG Carboxyhemoglobin 0.4 (0.0-1.6) % ABG Methemoglobin 0.7 % Woody Test N/a O2 Delivery Device Ventilator Oxygen Flow Rate L Sodium 145 (140-148) mmol/L Potassium 3.3 L (3.6-5.2) mmol/L Chloride 105 (100-108) mmol/L Carbon Dioxide 34 H (21-32) mmol/L Anion Gap 9.3 (5.0-14.0) mmol/L BUN 42 H (7-18) mg/dL Creatinine 1.0 (0.6-1.0) mg/dL Est Cr Clr Drug Dosing 35.11 mL/min Estimated GFR (MDRD) 53 L (>60) Glucose 118 H (74-106) mg/dL Calcium 9.2 (8.5-10.1) mg/dL Phosphorus 4.1 (2.5-4.9) mg/dL Magnesium 1.9 D (1.8-2.4) mg/dL Total Bilirubin 0.8 (0.2-1.0) mg/dL AST 171 H D (15-37) U/L ALT 260 H (12-78) U/L Alkaline Phosphatase 355 H (46-116) U/L NT-Pro-B Natriuret Pep 4950 H (5-450) pg/mL Total Protein 6.6 (6.4-8.2) g/dL Albumin 2.2 L (3.4-5.0) g/dL Globulin 4.4 H (2.3-3.5) g/dL Albumin/Globulin Ratio 0.5 L (1.2-2.2) Med Orders - Current: Current Medications Albuterol (Proventil Neb Soln) 2.5 mg NEB Q4H PRN PRN Reason: Dyspnea Albuterol/Ipratropium (Duoneb 3.0-0.5 Mg/3 Ml) 3 ml NEB QIDRT [facility] Last Admin: 09/27/18 07:24 Dose: 3 ml Bisacodyl (Dulcolax) 10 mg .XX BID [facility] Last Admin: 09/27/18 09:36 Dose: 10 mg Citalopram Hydrobromide (Celexa) 20 mg PO DAILY [facility] Last Admin: 09/27/18 09:36 Dose: 20 mg Dimethicone/Zinc Oxide (Rash Relief-Zinc Oxide [place]) 0 gm TOP ASDIRECTED PRN PRN Reason: Inflammation Last Admin: 09/21/18 15:28 Dose: 2 spray Erythromycin Ethylsuccinate (Eryped 200) 125 mg GTUBE Q6H [facility] Last Admin: 09/27/18 09:36 Dose: 125 mg Hydralazine HCl (Apresoline) 5 mg IVPUSH Q4H PRN PRN Reason: Hypertension Last Admin: 09/19/18 13:41 Dose: 5 mg Hydromorphone HCl (Dilaudid) 0.5 mg IVPUSH Q2H PRN PRN Reason: Pain Last Admin: 09/26/18 23:16 Dose: 0.5 mg Hydroxyzine HCl (Vistaril) 50 mg IM Q4H PRN PRN Reason: Pain Heparin Sodium (Porcine) 5,000 (units/ Sodium Chloride) 501 mls @ 5 mls/hr IV ASDIRECTED [facility] Last Admin: 09/22/18 14:59 Dose: 5 mls/hr Lactated Ringer's (Ringers, Lactated) 1,000 mls @ 25 mls/hr IV ASDIRECTED [facility] Last Admin: 09/18/18 21:11 Dose: 25 mls/hr Dextrose/Lactated Ringer's (Dextrose 5%-Lactated Ringers) 1,000 mls @ 25 mls/ hr IV ASDIRECTED [facility] Last Admin: 09/27/18 05:50 Dose: 25 mls/hr Multivitamins/Minerals 10 ml/Chromium/Copper/Manganese/Seleni/Zn 1 ml/ Amino Ac/ Electrol/Dextrose/Calcium 1,011 mls @ 40 mls/hr IV .BY DURATION [facility] Last Admin: 09/27/18 05:54 Dose: 40 mls/hr Amino Ac/Electrol/Dextrose/Calcium (Clinimix E 09/28) 1,000 mls @ 40 mls/hr IV .BY DURATION [facility] Potassium Phosphate 22.5 mmole (/ Sodium Chloride) 107.5 mls @ 27 mls/hr IV Q4H [facility] Stop: 09/27/18 17:29 Last Admin: 09/27/18 09:37 Dose: 27 mls/hr Loperamide HCl (Imodium) 2 mg PO ASDIRECTED PRN PRN Reason: LOOSE STOOLS Lorazepam (Ativan) 0.5 mg IVPUSH Q1H PRN PRN Reason: Anxiety Last Admin: 09/26/18 01:30 Dose: 0.5 mg Metoprolol Tartrate (Lopressor) 2.5 mg IVPUSH Q4H PRN PRN Reason: Hypertension Last Admin: 09/19/18 11:44 Dose: 2.5 mg Metoprolol Tartrate (Lopressor) 25 mg PO Q12H [facility] Last Admin: 09/27/18 09:34 Dose: 25 mg Nystatin (Nystop) 0 gm TOP QID [facility] Last Admin: 09/27/18 09:36 Dose: 1 applic Pantoprazole Sodium (Protonix) 40 mg PO BEDTIME [facility] Last Admin: 09/26/18 21:35 Dose: 40 mg Discontinued Medications Acetaminophen (Tylenol) 650 mg PO Q4H PRN PRN Reason: Pain (Mild 1-3)/fever Acetaminophen (Tylenol) 650 mg RECTAL Q4H PRN PRN Reason: Mild pain/fever Acetylcysteine (Mucomyst 20%) 200 mg NEB QIDRT [facility] Last Admin: 09/20/18 07:00 Dose: 200 mg Albuterol (Proventil Neb Soln) 2.5 mg NEB Q4H PRN PRN Reason: Shortness Of Breath/wheezing Albuterol/Ipratropium (Duoneb 3.0-0.5 Mg/3 Ml) 3 ml INH PREPRO ONE Stop: 09/03/18 17:01 Last Admin: 09/03/18 16:25 Dose: 3 ml Albuterol/Ipratropium (Duoneb 3.0-0.5 Mg/3 Ml) 3 ml NEB QID [facility] Last Admin: 09/13/18 21:11 Dose: 3 ml Aztreonam (Azactam) Confirm Administered Dose 1 gm .ROUTE .STK-MED ONE Stop: 09/03/18 21:44 Last Admin: 09/03/18 22:15 Dose: Not Given Benazepril HCl (Lotensin) 40 mg PO ONETIME ONE Stop: 09/03/18 10:41 Last Admin: 09/03/18 11:00 Dose: 40 mg Benazepril HCl (Lotensin) 40 mg NGTUBE DAILY [facility] Last Admin: 09/20/18 09:55 Dose: Not Given Bupivacaine HCl (Marcaine 0.5%) Confirm Administered Dose 50 ml .ROUTE .STK-MED ONE Stop: 09/07/18 06:48 Last Admin: 09/07/18 10:53 Dose: 18 ml Bupivacaine HCl (Marcaine 0.5%) Confirm Administered Dose 50 ml .ROUTE .STK-MED ONE Stop: 09/11/18 09:07 Last Admin: 09/11/18 10:49 Dose: 2 ml Ropivacaine 22 ml/Dexamethasone 8 mg/Epinephrine HCl 0.4 mg/ Sodium Chloride 55.6 ml 0 ml NERVRT ASDIRECTED [facility] Ropivacaine 22 ml/Dexamethasone 8 mg/Epinephrine HCl 0.4 mg/ Sodium Chloride 55.6 ml 0 ml NERVRT ASDIRECTED [facility] Last Admin: 09/04/18 14:03 Dose: 80 syringe Ropivacaine 22 ml/Dexamethasone 8 mg/Epinephrine HCl 0.4 mg/ Sodium Chloride 55.6 ml 0 ml NERVRT ASDIRECTED [facility] Last Admin: 09/07/18 11:07 Dose: 80 syringe Dexamethasone (Dexamethasone) Confirm Administered Dose 4 mg .ROUTE .STK-MED ONE Stop: 09/03/18 14:41 Dexamethasone (Dexamethasone) Confirm Administered Dose 4 mg .ROUTE .STK-MED ONE Stop: 09/04/18 09:47 Fentanyl (Sublimaze) 25 mcg IVPUSH ONETIME ONE Stop: 09/03/18 13:57 Last Admin: 09/03/18 14:16 Dose: 25 mcg Fentanyl (Sublimaze) 25 mcg IVPUSH Q2H PRN PRN Reason: Pain (severe 7-10) Fentanyl (Sublimaze) Confirm Administered Dose 250 mcg .ROUTE .STK-MED ONE Stop: 09/03/18 14:41 Fentanyl (Sublimaze) Confirm Administered Dose 250 mcg .ROUTE .STK-MED ONE Stop: 09/04/18 09:46 Fentanyl (Sublimaze) Confirm Administered Dose 250 mcg .ROUTE .STK-MED ONE Stop: 09/04/18 13:57 Fentanyl (Sublimaze) Confirm Administered Dose 100 mcg .ROUTE .STK-MED ONE Stop: 09/11/18 10:36 Fentanyl (Sublimaze) Confirm Administered Dose 250 mcg .ROUTE .STK-MED ONE Stop: 09/20/18 07:50 Furosemide (Lasix) 20 mg IVPUSH ONETIME ONE Stop: 09/04/18 15:10 Last Admin: 09/04/18 15:18 Dose: 20 mg Furosemide (Lasix) 40 mg IV ONETIME ONE Stop: 09/06/18 08:16 Last Admin: 09/06/18 08:26 Dose: 40 mg Furosemide (Lasix) 20 mg IV Q12H NAHED Stop: 09/07/18 20:01 Last Admin: 09/07/18 20:10 Dose: 20 mg Furosemide (Lasix) 20 mg IVPUSH Q12H [facility] Stop: 09/08/18 19:01 Last Admin: 09/08/18 19:50 Dose: 20 mg Furosemide (Lasix) 20 mg IVPUSH ONETIME ONE Stop: 09/09/18 07:01 Last Admin: 09/09/18 08:14 Dose: 20 mg Furosemide (Lasix) 20 mg IVPUSH ONETIME ONE Stop: 09/09/18 11:01 Last Admin: 09/09/18 12:38 Dose: 20 mg Furosemide (Lasix) 20 mg IVPUSH ONETIME ONE Stop: 09/09/18 20:01 Furosemide (Lasix) 20 mg IV Q8H NAHED Stop: 09/11/18 00:31 Last Admin: 09/10/18 23:50 Dose: 20 mg Furosemide (Lasix) 20 mg IV Q8H NAHED Stop: 09/12/18 00:01 Last Admin: 09/11/18 23:34 Dose: 20 mg Furosemide (Lasix) 20 mg IVPUSH Q8H NAH[facility] Stop: 09/13/18 02:31 Last Admin: 09/13/18 02:39 Dose: 20 mg Furosemide (Lasix) 20 mg IVPUSH Q8H [facility] Stop: 09/14/18 02:31 Last Admin: 09/14/18 02:29 Dose: 20 mg Furosemide (Lasix) 40 mg IVPUSH ONETIME ONE Stop: 09/14/18 10:01 Last Admin: 09/14/18 13:28 Dose: 40 mg Furosemide (Lasix) 20 mg IVPUSH BID [facility] Furosemide (Lasix) 20 mg IVPUSH ONETIME ONE Stop: 09/15/18 06:34 Last Admin: 09/15/18 06:48 Dose: 20 mg Furosemide (Lasix) 40 mg IVPUSH Q8H [facility] Stop: 09/15/18 20:31 Last Admin: 09/15/18 20:39 Dose: 40 mg Furosemide (Lasix) 40 mg IV BID [facility] Stop: 09/16/18 21:01 Last Admin: 09/16/18 21:19 Dose: 40 mg Furosemide (Lasix) 40 mg IV Q12H [facility] Stop: 09/17/18 21:01 Last Admin: 09/17/18 21:11 Dose: 40 mg Furosemide (Lasix) 40 mg IV Q8H [facility] Stop: 09/18/18 16:01 Last Admin: 09/18/18 16:00 Dose: 40 mg Furosemide (Lasix) 40 mg IV Q12H [facility] Stop: 09/19/18 20:01 Last Admin: 09/19/18 19:23 Dose: 40 mg Furosemide (Lasix) 20 mg IVPUSH Q12H [facility] Stop: 09/20/18 22:01 Last Admin: 09/20/18 21:52 Dose: 20 mg Furosemide (Lasix) 20 mg IVPUSH Q8H [facility] Stop: 09/21/18 20:01 Last Admin: 09/21/18 19:37 Dose: 20 mg Furosemide (Lasix) 20 mg IVPUSH Q6H [facility] Stop: 09/22/18 14:01 Last Admin: 09/22/18 13:54 Dose: 20 mg Furosemide (Lasix) Confirm Administered Dose 40 mg .ROUTE .STK-MED ONE Stop: 09/23/18 06:19 Last Admin: 09/23/18 07:04 Dose: Not Given Furosemide (Lasix) 40 mg IVPUSH ONETIME ONE Stop: 09/23/18 06:21 Last Admin: 09/23/18 06:15 Dose: 40 mg Furosemide (Lasix) 40 mg IV ONETIME ONE Stop: 09/23/18 14:31 Last Admin: 09/23/18 14:05 Dose: 40 mg Furosemide (Lasix) 40 mg IVPUSH NOW ONE Stop: 09/23/18 18:01 Last Admin: 09/23/18 17:12 Dose: 40 mg Furosemide (Lasix) 40 mg IV NOW ONE Stop: 09/24/18 08:01 Last Admin: 09/24/18 07:57 Dose: 40 mg Furosemide (Lasix) 40 mg IV ONETIME ONE Stop: 09/24/18 16:01 Last Admin: 09/24/18 15:49 Dose: 40 mg Furosemide (Lasix) 40 mg IV Q12H NAHED Stop: 09/25/18 20:01 Last Admin: 09/25/18 20:09 Dose: 40 mg Furosemide (Lasix) 40 mg IVPUSH NOW ONE Stop: 09/26/18 09:51 Last Admin: 09/26/18 09:52 Dose: 40 mg Gentamicin Sulfate (Gentamicin) 1 mg IV .Pharmacy to Dose [facility] Stop: 09/08/18 14:31 Glycopyrrolate (Robinul) Confirm Administered Dose 1 mg .ROUTE .STK-MED ONE Stop: 09/03/18 14:41 Glycopyrrolate (Robinul) Confirm Administered Dose 1 mg .ROUTE .STK-MED ONE Stop: 09/04/18 09:47 Heparin Sodium (Porcine) (Heparin Sodium) Confirm Administered Dose 5,000 units .ROUTE .STK-MED ONE Stop: 09/03/18 18:32 Heparin Sodium (Porcine) (Heparin Lock Flush 100 Units/Ml) Confirm Administered Dose 500 units .ROUTE .STK-MED ONE Stop: 09/04/18 13:14 Heparin Sodium (Porcine) (Heparin Lock Flush 100 Units/Ml) Confirm Administered Dose 1,000 units .ROUTE .STK-MED ONE Stop: 09/11/18 09:07 Last Admin: 09/11/18 10:58 Dose: 1,000 units Heparin Sodium (Porcine) (Heparin Lock Flush 100 Units/Ml) Confirm Administered Dose 500 units .ROUTE .STK-MED ONE Stop: 09/11/18 10:44 Last Admin: 09/11/18 10:58 Dose: 500 units Hydromorphone HCl (Dilaudid) 0.5 mg IVPUSH ONETIME ONE Stop: 09/03/18 10:48 Last Admin: 09/03/18 11:00 Dose: 0.5 mg Hydromorphone HCl (Dilaudid) 0.5 mg IVPUSH ONETIME ONE Stop: 09/03/18 11:22 Last Admin: 09/03/18 11:25 Dose: 0.5 mg Hydromorphone HCl (Dilaudid) 0.5 mg IVPUSH ONETIME ONE Stop: 09/03/18 12:10 Last Admin: 09/03/18 12:12 Dose: 0.5 mg Hydromorphone HCl (Dilaudid) 0.5 mg IVPUSH ONETIME ONE Stop: 09/03/18 12:40 Last Admin: 09/03/18 12:44 Dose: 0.5 mg Hydromorphone HCl (Dilaudid) 1 mg IVPUSH ONETIME ONE Stop: 09/03/18 12:57 Last Admin: 09/03/18 13:00 Dose: 1 mg Hydromorphone HCl (Dilaudid Insurance Defense Attorney 15 Mg In Ns 30 Ml) 0 mg IV ASDIRECTED PRN; Protocol PRN Reason: [employer] B[employer]ING 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 Last Admin: 09/09/18 05:52 Dose: 15 mg Sodium Chloride (Normal Saline) 1,000 mls @ 1,000 mls/hr IV .BOLUS ONE Stop: 09/03/18 12:17 Last Admin: 09/03/18 11:25 Dose: 1,000 mls/hr Piperacillin/Tazobactam/ (Dextrose 4.5 gm/ Premix) 100 mls @ 200 mls/hr IV ONETIME ONE Stop: 09/03/18 13:29 Last Admin: 09/03/18 13:04 Dose: 200 mls/hr Sodium Chloride (Normal Saline) 1,000 mls @ 500 mls/hr IV ASDIRECTED [facility] Last Admin: 09/03/18 13:00 Dose: 500 mls/hr Lactated Ringer's (Ringers, Lactated) 1,000 mls @ 125 mls/hr IV ASDIRECTED [facility] Last Admin: 09/03/18 16:07 Dose: 125 mls/hr Aztreonam 2 gm/ Sodium (Chloride) 100 mls @ 200 mls/hr IV NOW ONE Stop: 09/03/18 15:29 Last Admin: 09/03/18 14:56 Dose: 200 mls/hr Meropenem 500 mg/ Sodium (Chloride) 50 mls @ 100 mls/hr IV ONCALL ONE Stop: 09/03/18 17:29 Last Admin: 09/03/18 16:25 Dose: 100 mls/hr Piperacillin/Tazobactam/ (Dextrose 3.375 gm/ Premix) 50 mls @ 100 mls/hr IV Q6H NAHED Last Admin: 09/03/18 22:15 Dose: Not Given Sodium Chloride (Normal Saline) Confirm Administered Dose 500 mls @ as directed .ROUTE .STK-MED ONE Stop: 09/03/18 18:33 Aztreonam/Dextrose 1 gm/ (Premix) 50 mls @ 100 mls/hr IV Q8HR NAHED Meropenem 500 mg/ Sodium (Chloride) 50 mls @ 100 mls/hr IV Q8H NAHED Last Admin: 09/10/18 05:17 Dose: 100 mls/hr Sodium Chloride (Normal Saline) Confirm Administered Dose 50 mls @ as directed .ROUTE .STK-MED ONE Stop: 09/03/18 22:01 Last Admin: 09/03/18 22:21 Dose: Not Given Aztreonam/Dextrose 1 gm/ (Premix) 50 mls @ 100 mls/hr IV Q8H NAHED Last Admin: 09/04/18 07:30 Dose: Not Given Dextrose/Lactated Ringer's (Dextrose 5%-Lactated Ringers) 1,000 mls @ 100 mls/ hr IV ASDIRECTED PRN PRN Reason: Hypotension Dextrose/Lactated Ringer's (Dextrose 5%-Lactated Ringers) 1,000 mls @ 100 mls/ hr IV ASDIRECTED NAHED Last Admin: 09/05/18 02:13 Dose: 100 mls/hr Lactated Ringer's (Ringers, Lactated) 1,000 mls @ 100 mls/hr IV ASDIRECTED NAHED Last Admin: 09/04/18 04:20 Dose: 100 mls/hr Lactated Ringer's (Ringers, Lactated) 500 mls @ 500 mls/hr IV .BOLUS NAHED Last Admin: 09/04/18 01:10 Dose: 500 mls/hr Lactated Ringer's (Ringers, Lactated) 500 mls @ 500 mls/hr IV .BOLUS NAHED Last Admin: 09/04/18 03:13 Dose: 500 mls/hr Propofol (Diprivan 100 Ml) 100 mls @ 1.361 mls/hr IV TITRATE NAHED; Protocol Last Titration: 09/04/18 07:52 Dose: 14 mcg/kg/min, 3.81 mls/hr Propofol (Diprivan 100 Ml) Confirm Administered Dose 100 mls @ as directed .ROUTE .[facility] ONE Stop: 09/04/18 03:45 Last Admin: 09/04/18 03:59 Dose: Not Given Lactated Ringer's (Ringers, Lactated) 500 mls @ 999 mls/hr IV .BOLUS [facility] Last Admin: 09/04/18 06:10 Dose: 999 mls/hr Aztreonam/Dextrose 1 gm/ (Premix) 50 mls @ 100 mls/hr IV Q8H [facility] Last Admin: 09/07/18 08:15 Dose: 100 mls/hr Lactated Ringer's (Ringers, Lactated) 500 mls @ 500 mls/hr IV ASDIRECTED [facility] Last Admin: 09/04/18 21:04 Dose: 500 mls/hr Lactated Ringer's (Ringers, Lactated) Confirm Administered Dose 1,000 mls @ as directed .ROUTE .[facility] ONE Stop: 09/04/18 13:11 Lactated Ringer's (Ringers, Lactated) Confirm Administered Dose 1,000 mls @ as directed .ROUTE .[facility] ONE Stop: 09/04/18 13:11 Sodium Chloride (Normal Saline) Confirm Administered Dose 10 mls @ as directed .ROUTE .[facility] ONE Stop: 09/04/18 13:15 Magnesium Sulfate 2 gm/ Premix 50 mls @ 25 mls/hr IV Q6H [facility] Stop: 09/06/18 11:59 Last Admin: 09/06/18 10:17 Dose: 25 mls/hr Lactated Ringer's (Ringers, Lactated) 500 mls @ 500 mls/hr IV ASDIRECTED [facility] Stop: 09/04/18 17:46 Heparin Sodium (Porcine) 5,000 (units/ Sodium Chloride) 501 mls @ 5 mls/hr IV ASDIRECTED [facility] Last Admin: 09/22/18 12:58 Dose: 5 mls/hr Lactated Ringer's (Ringers, Lactated) 500 mls @ 500 mls/hr IV ONETIME ONE Stop: 09/04/18 19:29 Last Admin: 09/04/18 18:37 Dose: 500 mls/hr Lactated Ringer's (Ringers, Lactated) 500 mls @ 1,000 mls/hr IV ONETIME ONE Stop: 09/04/18 23:30 Last Admin: 09/04/18 23:18 Dose: 1,000 mls/hr Lactated Ringer's (Ringers, Lactated) 500 mls @ 1,000 mls/hr IV ONETIME ONE Stop: 09/05/18 01:44 Last Admin: 09/05/18 01:15 Dose: 1,000 mls/hr Lactated Ringer's (Ringers, Lactated) 1,000 mls @ 150 mls/hr IV ASDIRECTED [facility] Last Admin: 09/05/18 02:13 Dose: 150 mls/hr Lactated Ringer's (Ringers, Lactated) 500 mls @ 1,000 mls/hr IV ONETIME ONE Stop: 09/05/18 03:38 Last Admin: 09/05/18 03:15 Dose: 1,000 mls/hr Multivitamins/Minerals 10 ml/Chromium/Copper/Manganese/Seleni/Zn 1 ml/ Amino Ac/ Electrol/Dextrose/Calcium 2,011 mls @ 82 mls/hr IV .BY DURATION [facility] Stop: 09/05/18 13:25 Last Admin: 09/05/18 13:32 Dose: Not Given Amino Ac/Electrol/Dextrose/Calcium (Clinimix E 5/15) 2,000 mls @ 82 mls/hr IV .BY DURATION [facility] Stop: 09/05/18 13:25 Vancomycin HCl 1 gm/ Sodium (Chloride) 250 mls @ 167 mls/hr IV Q24H [facility] Last Admin: 09/05/18 12:34 Dose: 167 mls/hr Sodium Chloride (Normal Saline) 1,000 mls @ 50 mls/hr IV ASDIRECTED [facility] Last Admin: 09/05/18 12:51 Dose: 50 mls/hr Multivitamins/Minerals 10 ml/Chromium/Copper/Manganese/Seleni/Zn 1 ml/ Amino Ac/ Electrol/Dextrose/Calcium 2,011 mls @ 82 mls/hr IV .BY DURATION [facility] Stop: 09/08/18 13:20 Last Admin: 09/07/18 15:09 Dose: 82 mls/hr Amino Ac/Electrol/Dextrose/Calcium (Clinimix E 5/15) 2,000 mls @ 82 mls/hr IV .BY DURATION NAHED Stop: 09/08/18 13:20 Vancomycin HCl 1 gm/ Sodium (Chloride) 250 mls @ 167 mls/hr IV Q24H NAHED Last Admin: 09/06/18 12:00 Dose: 167 mls/hr Sodium Chloride (Normal Saline) 500 mls @ 500 mls/hr IV ASDIRECTED ONE Stop: 09/05/18 16:29 Last Admin: 09/05/18 15:40 Dose: 500 mls/hr Sodium Chloride (Normal Saline) 1,000 mls @ 100 mls/hr IV ASDIRECTED NAHED Last Admin: 09/07/18 07:31 Dose: 100 mls/hr Propofol (Diprivan 100 Ml) 100 mls @ 1.361 mls/hr IV TITRATE NAHED; Protocol Last Titration: 09/17/18 03:30 Dose: 25 mcg/kg/min, 6.804 mls/hr Potassium Phosphate 20 mmole/ (Sodium Chloride) 106.6667 mls @ 35 mls/hr IV Q3H NAHED Stop: 09/07/18 17:29 Last Admin: 09/07/18 15:01 Dose: 35 mls/hr Albumin Human (Albumin 25%) 25 gm in 100 mls @ 25 mls/hr IV DAILY NAHED Stop: 09/09/18 12:59 Last Admin: 09/09/18 08:25 Dose: 25 mls/hr Albumin Human (Albumin 25%) 25 gm in 100 mls @ 25 mls/hr IV Q24H NAHED Stop: 09/09/18 17:59 Last Admin: 09/09/18 14:32 Dose: 25 mls/hr Sodium Chloride (Normal Saline) 1,000 mls @ 0 mls/hr IV ASDIRECTED NAHED Last Admin: 09/19/18 05:15 Dose: 12.5 mls/hr Aztreonam 1 gm/ Sodium (Chloride) 50 mls @ 100 mls/hr IV Q8H NAHED Last Admin: 09/08/18 09:41 Dose: 100 mls/hr Vancomycin HCl 1 gm/ Sodium (Chloride) 250 mls @ 167 mls/hr IV Q18H NAHED Last Admin: 09/09/18 18:42 Dose: 167 mls/hr Sodium Chloride (Normal Saline) 1,000 mls @ 999 mls/hr IV .BOLUS ONE Stop: 09/07/18 17:39 Last Admin: 09/07/18 17:26 Dose: 999 mls/hr Potassium Acetate 40 meq/ (Sodium Chloride) 120 mls @ 30 mls/hr IV ONETIME ONE Stop: 09/08/18 13:59 Last Admin: 09/08/18 09:44 Dose: 30 mls/hr Multivitamins/Minerals 10 ml/Chromium/Copper/Manganese/Seleni/Zn 1 ml/ Amino Ac/ Electrol/Dextrose/Calcium 1,011 mls @ 62 mls/hr IV .BY DURATION NAHED Stop: 09/20/18 17:00 Last Admin: 09/19/18 09:10 Dose: 62 mls/hr Amino Ac/Electrol/Dextrose/Calcium (Clinimix E 09/28) 1,000 mls @ 62 mls/hr IV .BY DURATION [facility] Stop: 09/20/18 17:00 Last Admin: 09/20/18 01:21 Dose: 62 mls/hr Sodium Chloride (Normal Saline) 100 mls @ 3 mls/sec IV ASDIRECTED [facility] Stop: 09/08/18 15:00 Last Admin: 09/08/18 14:17 Dose: 3 mls/sec Azithromycin 500 mg/ Sodium (Chloride) 250 mls @ 250 mls/hr IV Q24H [facility] Last Admin: 09/09/18 15:27 Dose: 250 mls/hr Gentamicin Sulfate 228 mg/ (Sodium Chloride) 105.7 mls @ 100 mls/hr IV ONETIME ONE Stop: 09/08/18 17:03 Last Admin: 09/08/18 16:19 Dose: 100 mls/hr Potassium Phosphate 15 mmole/ (Sodium Chloride) 105 mls @ 55 mls/hr IV Q2H [facility] Stop: 09/09/18 12:55 Last Admin: 09/09/18 15:27 Dose: 55 mls/hr Gentamicin Sulfate 228 mg/ (Sodium Chloride) 105.7 mls @ 100 mls/hr IV Q36H [facility] Last Admin: 09/10/18 03:55 Dose: 100 mls/hr Sodium Chloride (Normal Saline) 500 mls @ 999 mls/hr IV .BOLUS ONE Stop: 09/09/18 16:34 Last Admin: 09/09/18 16:18 Dose: 999 mls/hr Sodium Chloride (Normal Saline) 500 mls @ 999 mls/hr IV .BOLUS ONE Stop: 09/09/18 17:35 Last Admin: 09/09/18 17:18 Dose: 999 mls/hr Sodium Chloride (Normal Saline) 1,000 mls @ 125 mls/hr IV ASDIRECTED [facility] Last Admin: 09/10/18 01:41 Dose: 125 mls/hr Lactated Ringer's (Ringers, Lactated) 1,000 mls @ 125 mls/hr IV ASDIRECTED [facility] Last Admin: 09/11/18 01:06 Dose: 125 mls/hr Meropenem 500 mg/ Sodium (Chloride) 25 mls @ 50 mls/hr IV Q8H [facility] Last Admin: 09/20/18 13:05 Dose: 50 mls/hr Gentamicin Sulfate 228 mg/ (Sodium Chloride) 55.7 mls @ 55 mls/hr IV Q36H [facility] Last Admin: 09/14/18 16:49 Dose: 55 mls/hr Azithromycin 500 mg/ Dextrose/ (Water) 250 mls @ 250 mls/hr IV Q24H [facility] Stop: 09/17/18 17:00 Last Admin: 09/14/18 15:42 Dose: 250 mls/hr Vancomycin HCl 1 gm/ Dextrose/ (Water) 250 mls @ 167 mls/hr IV Q24H [facility] Last Admin: 09/13/18 17:48 Dose: 167 mls/hr Fluconazole/Sodium Chloride (200 mg/ Premix) 100 mls @ 100 mls/hr IV Q24H [facility] Last Admin: 09/15/18 20:38 Dose: 100 mls/hr Magnesium Sulfate 2 gm/ Premix 50 mls @ 25 mls/hr IV Q6H [facility] Stop: 09/13/18 05:59 Last Admin: 09/13/18 03:31 Dose: 25 mls/hr Potassium Phosphate 22.5 mmole (/ Dextrose/Water) 107.5 mls @ 27 mls/hr IV Q4H [facility] Stop: 09/11/18 17:29 Last Admin: 09/11/18 14:45 Dose: 27 mls/hr Lactated Ringer's (Ringers, Lactated) 1,000 mls @ 75 mls/hr IV ASDIRECTED [facility] Last Admin: 09/13/18 22:27 Dose: 75 mls/hr Sodium Chloride (Normal Saline) Confirm Administered Dose 10 mls @ as directed .ROUTE .STK-MED ONE Stop: 09/11/18 10:41 Potassium Chloride 40 meq/ (Premix) 100 mls @ 25 mls/hr IV ONETIME ONE Stop: 09/13/18 12:59 Last Admin: 09/13/18 09:31 Dose: 25 mls/hr Potassium Chloride 40 meq/ (Premix) 100 mls @ 25 mls/hr IV ONETIME ONE Stop: 09/13/18 17:59 Last Admin: 09/13/18 13:11 Dose: 25 mls/hr Albumin Human (Albumin 25%) 25 gm in 100 mls @ 25 mls/hr IV Q24H [facility] Stop: 09/16/18 11:59 Last Admin: 09/16/18 09:02 Dose: 25 mls/hr Albumin Human (Albumin 25%) 25 gm in 100 mls @ 25 mls/hr IV Q24H [facility] Stop: 09/16/18 15:59 Last Admin: 09/16/18 12:33 Dose: 25 mls/hr Fluconazole/Sodium Chloride (400 mg/ Premix) 200 mls @ 100 mls/hr IV Q24H [facility] Last Admin: 09/24/18 20:22 Dose: 100 mls/hr Potassium Chloride 40 meq/ (Premix) 100 mls @ 25 mls/hr IV ONETIME ONE Stop: 09/16/18 11:59 Last Admin: 09/16/18 08:02 Dose: 25 mls/hr Potassium Chloride 20 meq/ (Premix) 100 mls @ 50 mls/hr IV ONETIME ONE Stop: 09/16/18 13:59 Last Admin: 09/16/18 11:36 Dose: 50 mls/hr Potassium Chloride 40 meq/ (Premix) 100 mls @ 25 mls/hr IV ONETIME ONE Stop: 09/17/18 11:59 Last Admin: 09/17/18 08:43 Dose: 25 mls/hr Magnesium Sulfate 2 gm/ Premix 50 mls @ 25 mls/hr IV Q6H [facility] Stop: 09/19/18 05:59 Last Admin: 09/19/18 03:26 Dose: 25 mls/hr Potassium Chloride 40 meq/ (Premix) 100 mls @ 25 mls/hr IV ONETIME ONE Stop: 09/18/18 12:59 Last Admin: 09/18/18 08:34 Dose: 25 mls/hr Potassium Chloride 40 meq/ (Premix) 100 mls @ 25 mls/hr IV ONETIME ONE Stop: 09/19/18 11:59 Last Admin: 09/19/18 08:19 Dose: 25 mls/hr Potassium Chloride 20 meq/ (Premix) 100 mls @ 50 mls/hr IV ONETIME ONE Stop: 09/19/18 13:59 Last Admin: 09/19/18 11:05 Dose: 50 mls/hr Propofol (Diprivan 100 Ml) 100 mls @ 2.354 mls/hr IV TITRATE NAHED; Protocol Last Admin: 09/20/18 05:35 Dose: 15 mcg/kg/min, 7.062 mls/hr Multivitamins/Minerals 10 ml/Chromium/Copper/Manganese/Seleni/Zn 1 ml/ Amino Ac/ Electrol/Dextrose/Calcium 2,011 mls @ 100 mls/hr IV .BY DURATION NAHED Amino Ac/Electrol/Dextrose/Calcium (Clinimix E 5/20) 2,000 mls @ 100 mls/hr IV .BY DURATION NAHED Multivitamins/Minerals 10 ml/Chromium/Copper/Manganese/Seleni/Zn 1 ml/ Amino Ac/ Electrol/Dextrose/Calcium 2,011 mls @ 62 mls/hr IV .BY DURATION NAHED Stop: 09/21/18 16:50 Last Admin: 09/20/18 17:31 Dose: 62 mls/hr Amino Ac/Electrol/Dextrose/Calcium (Clinimix E 5/20) 2,000 mls @ 62 mls/hr IV .BY DURATION NAHED Stop: 09/21/18 16:50 Potassium Chloride 40 meq/ (Premix) 100 mls @ 25 mls/hr IV ONETIME ONE Stop: 09/21/18 12:59 Last Admin: 09/21/18 09:38 Dose: 25 mls/hr Multivitamins/Minerals 10 ml/Chromium/Copper/Manganese/Seleni/Zn 1 ml/ Amino Ac/ Electrol/Dextrose/Calcium 2,011 mls @ 62 mls/hr IV .BY DURATION NAHED Last Admin: 09/23/18 16:06 Dose: 62 mls/hr Amino Ac/Electrol/Dextrose/Calcium (Clinimix E 5/20) 2,000 mls @ 62 mls/hr IV .BY DURATION [facility] Potassium Phosphate 22.5 mmole (/ Sodium Chloride) 257.5 mls @ 86 mls/hr IV Q3H [facility] Stop: 09/22/18 20:59 Last Admin: 09/22/18 17:50 Dose: 86 mls/hr Magnesium Sulfate 2 gm/ Premix 50 mls @ 25 mls/hr IV Q6H [facility] Stop: 09/25/18 05:59 Last Admin: 09/25/18 04:29 Dose: 25 mls/hr Dextrose/Lactated Ringer's (Dextrose 5%-Lactated Ringers) 1,000 mls @ 40 mls/ hr IV ASDIRECTED [facility] Last Admin: 09/24/18 07:51 Dose: 40 mls/hr Potassium Chloride 40 meq/ (Premix) 100 mls @ 25 mls/hr IV ONETIME ONE Stop: 09/24/18 12:59 Potassium Chloride 40 meq/ (Premix) 100 mls @ 25 mls/hr IV ONETIME ONE Stop: 09/24/18 17:59 Last Admin: 09/24/18 21:05 Dose: 25 mls/hr Potassium Phosphate 22.5 mmole (/ Sodium Chloride) 107.5 mls @ 27 mls/hr IV Q4H [facility] Stop: 09/25/18 01:59 Last Admin: 09/25/18 04:43 Dose: 27 mls/hr Multivitamins/Minerals 10 ml/Chromium/Copper/Manganese/Seleni/Zn 1 ml/ Amino Ac/ Electrol/Dextrose/Calcium 1,011 mls @ 62 mls/hr IV .BY DURATION [facility] Amino Ac/Electrol/Dextrose/Calcium (Clinimix E 5/20) 1,000 mls @ 62 mls/hr IV .BY DURATION [facility] Sodium Chloride (Normal Saline) 1,000 mls @ 25 mls/hr IV ASDIRECTED [facility] Multivitamins/Minerals 10 ml/Chromium/Copper/Manganese/Seleni/Zn 1 ml/ Amino Ac/ Electrol/Dextrose/Calcium 1,011 mls @ 62 mls/hr IV .BY DURATION [facility] Stop: 09/26/18 16:00 Last Admin: 09/25/18 12:50 Dose: 62 mls/hr Amino Ac/Electrol/Dextrose/Calcium (Clinimix E 20) 1,000 mls @ 62 mls/hr IV .BY DURATION [facility] Stop: 09/26/18 16:00 Last Admin: 09/26/18 07:43 Dose: 62 mls/hr Iopamidol (Isovue-300 (61%)) 100 ml IV . DIRECTED PRN PRN Reason: RADIOLOGY EXAM Stop: 09/09/18 11:03 Last Admin: 09/08/18 14:16 Dose: 100 ml Ketoconazole (Nizoral 2% Crm) 0 gm TOP TID [facility] Last Admin: 09/24/18 13:53 Dose: Not Given Lidocaine HCl (Xylocaine 2% Viscous) Confirm Administered Dose 15 ml .ROUTE .STK -MED ONE Stop: 09/12/18 11:15 Lidocaine HCl (Xylocaine 4% Top Soln) Confirm Administered Dose 50 ml .ROUTE .STK-MED ONE Stop: 09/12/18 11:15 Lidocaine HCl (Xylocaine 4% Top Soln) Confirm Administered Dose 50 ml .ROUTE .STK-MED ONE Stop: 09/14/18 06:57 Last Admin: 09/14/18 07:20 Dose: 20 ml Lidocaine HCl (Xylocaine-Mpf 1%) 5 ml INJECT ONETIME ONE Stop: 09/17/18 06:31 Last Admin: 09/17/18 06:52 Dose: 5 ml Lidocaine HCl (Xylocaine 2% Viscous) Confirm Administered Dose 15 ml .ROUTE .STK -MED ONE Stop: 09/20/18 06:37 Lidocaine HCl (Xylocaine 4% Top Soln) Confirm Administered Dose 50 ml .ROUTE .STK-MED ONE Stop: 09/20/18 06:38 Last Admin: 09/20/18 09:05 Dose: 50 ml Lidocaine/Epinephrine (Xylocaine 1% With Epinephrine 1:100,000) Confirm Administered Dose 50 ml .ROUTE .STK-MED ONE Stop: 09/07/18 06:48 Last Admin: 09/07/18 10:54 Dose: 18 ml Lidocaine/Epinephrine (Xylocaine 1% With Epinephrine 1:100,000) Confirm Administered Dose 50 ml .ROUTE .STK-MED ONE Stop: 09/11/18 09:07 Last Admin: 09/11/18 10:49 Dose: 2 ml Lidocaine/Epinephrine (Xylocaine 1% With Epinephrine 1:100,000) Confirm Administered Dose 50 ml .ROUTE .STK-MED ONE Stop: 09/20/18 06:38 Lorazepam (Ativan) 0.5 mg IVPUSH Q4H PRN PRN Reason: Nausea/Vomiting Lorazepam (Ativan) 0.5 mg IVPUSH Q3H PRN PRN Reason: AGITATION Last Admin: 09/18/18 13:47 Dose: 0.5 mg Meropenem (Merrem) Confirm Administered Dose 1,000 mg .ROUTE .STK-MED ONE Stop: 09/03/18 17:54 Last Admin: 09/03/18 18:32 Dose: 3,500 mg Meropenem (Merrem) Confirm Administered Dose 1,000 mg .ROUTE .STK-MED ONE Stop: 09/03/18 18:04 Meropenem (Merrem) Confirm Administered Dose 2,000 mg .ROUTE .STK-MED ONE Stop: 09/03/18 18:18 Meropenem (Merrem) Confirm Administered Dose 500 mg .ROUTE .STK-MED ONE Stop: 09/07/18 06:48 Last Admin: 09/07/18 10:53 Dose: 500 mg Metoprolol Tartrate (Lopressor) 25 mg PO ONETIME ONE Stop: 09/03/18 10:41 Last Admin: 09/03/18 11:00 Dose: 25 mg Metoprolol Tartrate (Lopressor) 5 mg IVPUSH Q6H [facility] Last Admin: 09/08/18 09:25 Dose: 5 mg Metoprolol Tartrate (Lopressor) 2.5 mg IVPUSH Q6H [facility] Last Admin: 09/10/18 03:55 Dose: 2.5 mg Metoprolol Tartrate (Lopressor) Confirm Administered Dose 5 mg .ROUTE .STK-MED ONE Stop: 09/08/18 21:53 Last Admin: 09/08/18 22:19 Dose: Not Given Metoprolol Tartrate (Lopressor) 2.5 mg IVPUSH Q4H [facility] Last Admin: 09/11/18 21:25 Dose: Not Given Morphine Sulfate (Morphine) 2 mg IVPUSH Q1H PRN PRN Reason: Anxiety Last Admin: 09/19/18 16:04 Dose: 2 mg Naloxone HCl (Narcan) 0.1 mg IV ASDIRECTED PRN PRN Reason: decreased respiratory rate Neostigmine Methylsulfate (Neostigmine) Confirm Administered Dose 5 mg .ROUTE .STK-MED ONE Stop: 09/03/18 14:41 Neostigmine Methylsulfate (Neostigmine) Confirm Administered Dose 5 mg .ROUTE .STK-MED ONE Stop: 09/04/18 09:47 Non-Formulary Medication (Total Parenteral Nutrition, Central) 0 ml IV ASDIRECTED [facility] Stop: 09/12/18 13:31 Non-Formulary Medication (Total Parenteral Nutrition, Central) 0 ml IV ASDIRECTED [facility] Stop: 09/13/18 13:00 Ondansetron HCl (Zofran Odt) 4 mg PO Q6H PRN PRN Reason: Nausea able to take PO Ondansetron HCl (Zofran) 4 mg IV Q6H PRN PRN Reason: Nausea/Vomiting Ondansetron HCl (Zofran) Confirm Administered Dose 4 mg .ROUTE .STK-MED ONE Stop: 09/03/18 14:41 Ondansetron HCl (Zofran) Confirm Administered Dose 4 mg .ROUTE .STK-MED ONE Stop: 09/04/18 09:47 Pantoprazole Sodium (Protonix Iv) 40 mg IV Q12H [facility] Last Admin: 09/03/18 16:07 Dose: 40 mg Pantoprazole Sodium (Protonix Iv) 40 mg IV Q24H [facility] Last Admin: 09/22/18 22:21 Dose: 40 mg Piperacillin Sod/Tazobactam Sod (Zosyn) 10.125 gm .XX ASDIRECTED [facility] Stop: 09/04/18 15:00 Last Admin: 09/04/18 14:04 Dose: 10.125 gm Potassium Chloride (Klor-Con M20) 40 meq PO ONETIME ONE Stop: 09/24/18 10:31 Last Admin: 09/24/18 10:36 Dose: 40 meq Propofol (Diprivan 20 Ml) Confirm Administered Dose 200 mg .ROUTE .STK-MED ONE Stop: 09/03/18 14:41 Propofol (Diprivan 20 Ml) Confirm Administered Dose 200 mg .ROUTE .STK-MED ONE Stop: 09/04/18 09:47 Propofol (Diprivan 20 Ml) Confirm Administered Dose 200 mg .ROUTE .STK-MED ONE Stop: 09/06/18 07:01 Propofol (Diprivan 20 Ml) Confirm Administered Dose 200 mg .ROUTE .K-MED ONE Stop: 09/19/18 14:22 Rocuronium Nye (Zemuron) Confirm Administered Dose 50 mg .ROUTE .STK-MED ONE Stop: 09/03/18 14:41 Rocuronium Nye (Zemuron) Confirm Administered Dose 50 mg .ROUTE .K-MED ONE Stop: 09/04/18 09:47 Rocuronium Nye (Zemuron) Confirm Administered Dose 50 mg .ROUTE .STK-MED ONE Stop: 09/20/18 07:50 Rocuronium Nye (Zemuron) Confirm Administered Dose 50 mg .ROUTE .[facility]-MED ONE Stop: 09/26/18 08:14 Succinylcholine Chloride (Quelicin) Confirm Administered Dose 200 mg .ROUTE .STK -MED ONE Stop: 09/03/18 14:41 Succinylcholine Chloride (Quelicin) Confirm Administered Dose 200 mg .ROUTE .[facility] -MED ONE Stop: 09/04/18 09:47 Succinylcholine Chloride (Quelicin) Confirm Administered Dose 200 mg .ROUTE .[facility] -MED ONE Stop: 09/06/18 07:01 - Exam Quality Assessment: Supplemental Oxygen (Mechanical ventilation), Central Line/ PICC, DVT Prophylaxis. No: Urine Catheter General: Alert, Cooperative, Mild Distress Lungs: Normal Respiratory Effort, Decreased Breath Sounds, Rhonchi Cardiovascular: Regular Rate, Regular Rhythm, No Murmurs GI/Abdominal Exam: Soft, No Organomegaly, Tender. No: Distended, Guarding, Rigid, Rebound Extremities: Non-Tender, No Pedal Edema - Problem List Review Problem List Initiated/Reviewed/Updated: Yes - Assessment Assessment:: x - Plan Plan:: ASSESSMENT AND PLAN Acute respiratory failure with hypoxia and hypercapnia - she failed a trial of trach collar this morning. Fluid status ears to be fairly stable -Transition back to IMV later today, rate of 6 and pressure support of 10, plan to rest tonight on before meals, back to IMV in a.m. -Up to chair 4 times daily -Physical therapy twice daily -treat anxiety as indicated Perforated sigmoid colon with sepsis - Initial surgical resection on 09/03 and Second Look laparotomy on 09/04. Sepsis has resolved. Cultures grew out Klebsiella, Escherichia coli and anaerobic bacteria. stable from this standpoint and she has completed adequate anabiotic for this infection. PEG feeding tube placed earlier today. -TPN-decrease rate to 20 mL today -PEG feeding tube placement, intraoral feeding rate increased to 35 mL/h Hypertension - no longer has NG. blood pressure has been stable. -Metoprolol 25 mg by mouth twice a day -PRN meds if SBP >175 Anemia of critical illness - hemoglobin now stable with no evidence for bleeding. -Transfuse if less than 8 since she is currently hemodynamically stable and oxygenating well Acute kidney injury - renal function back to normal and stable. She does have an elevated BUN out of proportion to her creatinine but this is slowly trending down. -Management as above -Repeat labs in the morning Mixed delirium - more alert and interactive off of sedation -Symptomatically management and treatment of the above conditions Maintenance issues - - DVT prophylaxis - mechanical - GI prophylaxis - PPI - Nutrition - TPN/tube feedings - Rubin catheter -will be removed today Disposition - I would anticipate discharge to an LTAC for ventilator weaning on September 29
[2018-09-27] MEDS: LORazepam 2 MG/ML SDV IVPUSH PRN ×3 (11:18→20:30)
[2018-09-27] MEDS ORDERED: Furosemide 40 MG/4 ML VIAL IVPUSH ONE (11:30)
[2018-09-27] MEDS: HYDROmorphone 0.5 MG/0.5 ML Syringe IVPUSH PRN ×2 (15:52→23:29)
[2018-09-27] MEDS: Pantoprazole 40 MG Tab.CR PO SCH (21:31)
[2018-09-28] MEDS: HYDROmorphone 0.5 MG/0.5 ML Syringe IVPUSH PRN ×2 (03:00→20:37)
[2018-09-28] MEDS: Erythromycin Ethylsuccinate Susp 200 MG/5 ML 100 ML Bottle GTUBE SCH ×4 (04:51→21:33)
[2018-09-28] MEDS: Albuterol/Ipratropium 3.0-0.5 MG/3 ML Neb Soln NEB SCH ×4 (07:13→21:30)
[2018-09-28] MEDS: Nystatin Topical Powder 15 GM Bottle TOP SCH ×4 (07:25→21:33)
[2018-09-28] MEDS: Citalopram 20 MG Tab PO SCH (08:18)
[2018-09-28] MEDS: Metoprolol Tartrate 25 MG Tab PO SCH ×2 (08:19→21:31)
[2018-09-28] MEDS: Bisacodyl 10 MG Supp SCH ×2 (08:19→21:34)
[2018-09-28] MEDS ORDERED: Potassium Chloride 10% 20 MEQ/15 ML Soln 15 ML UD Cup GTUBE ONE (09:00)
[2018-09-28] MEDS ORDERED: Furosemide 40 MG/4 ML VIAL IV ONE (09:00)
[2018-09-28] MEDS ORDERED: LORazepam 0.5 MG Tab PO PRN (09:58)
--- NOTE | 2018-09-28 10:00 | PCM.PN ---
- General Info Date of Service: 09/28/18 Subjective Update: There were no acute events overnight. Respiratory status has remained stable. The patient is alert and somewhat interactive. She is able to follow simple commands and nod and shake her head to answer simple questions. She does not report any pain at this time. She remains very weak but is able to move all 4 extremities against gravity. She has not had any fevers. She was recently transitioned to IMV with with the ventilator after resting and using assist control overnight. Functional Status: Reports: Pain Controlled, Tolerating Diet - Review of Systems General: Denies: Fever - Patient Data Vitals - Most Recent: Last Vital Signs Temp 36.5 C 09/28/18 08:00 Pulse 95 09/28/18 08:19 Resp 16 09/28/18 08:00 BP 157/71 H 09/28/18 08:19 Pulse Ox 100 09/28/18 08:00 Weight - Most Recent: 65.998 kg I&O - Last 24 Hours: Intake & Output 09/27/18 09/28/18 09/28/18 22:59 06:59 14:59 Intake Total 535 1163 Output Total 1 Balance 535 1162 Lab Results Last 24 Hours: Laboratory Results - last 24 hr 09/21/18 09/28/18 09/28/18 Range/Units 06:48 04:44 04:45 WBC 12.2 H (4.5-11.0) K/uL RBC 3.13 L (3.30-5.50) M/uL Hgb 10.0 L (12.0-15.0) g/dL Hct 30.6 L (36.0-48.0) % MCV 98 (80-98) fL MCH 32 H (27-31) pg MCHC 33 (32-36) % Plt Count 284 (150-400) K/uL Puncture Site R brachial ABG pH 7.493 H (7.350-7.450) ABG pCO2 40.8 (35.0-42.0) mmHg ABG pO2 91.4 (75.0-100.0) mmHg ABG HCO3 31.0 H (22.0-26.0) mmol/L ABG Total CO2 28.0 H (21.0-25.0) mmol/L ABG O2 Saturation 97.3 (95.0-98.0) % ABG O2 Content 14.6 L (15.0-23.0) %vol ABG Base Excess 7.3 mm/L ABG Hemoglobin 10.7 L (12.0-16.0) g/dL ABG Oxyhemoglobin 96.0 % ABG Carboxyhemoglobin 0.8 (0.0-1.6) % ABG Methemoglobin 0.5 % O2 Delivery Device Ventilator Oxygen Flow Rate L Sodium (140-148) mmol/L Potassium (3.6-5.2) mmol/L Chloride (100-108) mmol/L Carbon Dioxide (21-32) mmol/L Anion Gap (5.0-14.0) mmol/L BUN (7-18) mg/dL Creatinine (0.6-1.0) mg/dL Est Cr Clr Drug Dosing mL/min Estimated GFR (MDRD) (>60) Glucose (74-106) mg/dL Calcium (8.5-10.1) mg/dL Phosphorus (2.5-4.9) mg/dL Magnesium (1.8-2.4) mg/dL Total Bilirubin (0.2-1.0) mg/dL AST (15-37) U/L ALT (12-78) U/L Alkaline Phosphatase (46-116) U/L NT-Pro-B Natriuret Pep (5-450) pg/mL Total Protein (6.4-8.2) g/dL Albumin (3.4-5.0) g/dL Globulin (2.3-3.5) g/dL Albumin/Globulin Ratio (1.2-2.2) TSH, Ultra Sensitive (0.358-3.740) uIU/mL Crossmatch See Detail 09/28/18 Range/Units 04:45 WBC (4.5-11.0) K/uL RBC (3.30-5.50) M/uL Hgb (12.0-15.0) g/dL Hct (36.0-48.0) % MCV (80-98) fL MCH (27-31) pg MCHC (32-36) % Plt Count (150-400) K/uL Puncture Site ABG pH (7.350-7.450) ABG pCO2 (35.0-42.0) mmHg ABG pO2 (75.0-100.0) mmHg ABG HCO3 (22.0-26.0) mmol/L ABG Total CO2 (21.0-25.0) mmol/L ABG O2 Saturation (95.0-98.0) % ABG O2 Content (15.0-23.0) %vol ABG Base Excess mm/L ABG Hemoglobin (12.0-16.0) g/dL ABG Oxyhemoglobin % ABG Carboxyhemoglobin (0.0-1.6) % ABG Methemoglobin % O2 Delivery Device Oxygen Flow Rate L Sodium 144 (140-148) mmol/L Potassium 3.4 L (3.6-5.2) mmol/L Chloride 105 (100-108) mmol/L Carbon Dioxide 32 (21-32) mmol/L Anion Gap 10.4 (5.0-14.0) mmol/L BUN 39 H (7-18) mg/dL Creatinine 1.1 H (0.6-1.0) mg/dL Est Cr Clr Drug Dosing 31.92 mL/min Estimated GFR (MDRD) 48 L (>60) Glucose 115 H (74-106) mg/dL Calcium 9.4 (8.5-10.1) mg/dL Phosphorus 4.8 (2.5-4.9) mg/dL Magnesium 1.7 L (1.8-2.4) mg/dL Total Bilirubin 0.8 (0.2-1.0) mg/dL AST 135 H (15-37) U/L ALT 250 H (12-78) U/L Alkaline Phosphatase 331 H (46-116) U/L NT-Pro-B Natriuret Pep 27719 H (5-450) pg/mL Total Protein 6.6 (6.4-8.2) g/dL Albumin 2.1 L (3.4-5.0) g/dL Globulin 4.5 H (2.3-3.5) g/dL Albumin/Globulin Ratio 0.5 L (1.2-2.2) TSH, Ultra Sensitive 3.414 (0.358-3.740) uIU/mL Crossmatch Joseph Results Last 24 Hours: Microbiology 09/14/18 08:06 Fungal Culture - Preliminary Transbronchial Aspirate YEAST 09/12/18 12:57 Fungal Culture - Preliminary Bronchial Aspirate - Mixed YEAST Med Orders - Current: Current Medications Albuterol (Proventil Neb Soln) 2.5 mg NEB Q4H PRN PRN Reason: Dyspnea Albuterol/Ipratropium (Duoneb 3.0-0.5 Mg/3 Ml) 3 ml NEB QIDRT [facility] Last Admin: 09/28/18 07:13 Dose: 3 ml Bisacodyl (Dulcolax) 10 mg .XX BID [facility] Last Admin: 09/28/18 08:19 Dose: 10 mg Citalopram Hydrobromide (Celexa) 20 mg PO DAILY [facility] Last Admin: 09/28/18 08:18 Dose: 20 mg Dimethicone/Zinc Oxide (Rash Relief-Zinc Oxide Froid) 0 gm TOP ASDIRECTED PRN PRN Reason: Inflammation Last Admin: 09/21/18 15:28 Dose: 2 spray Erythromycin Ethylsuccinate (Eryped 200) 125 mg GTUBE Q6H [facility] Last Admin: 09/28/18 09:35 Dose: 125 mg Hydromorphone HCl (Dilaudid) 0.5 mg IVPUSH Q2H PRN PRN Reason: Pain Last Admin: 09/28/18 03:00 Dose: 0.5 mg Hydroxyzine HCl (Vistaril) 50 mg IM Q4H PRN PRN Reason: Pain Lactated Ringer's (Ringers, Lactated) 1,000 mls @ 25 mls/hr IV ASDIRECTED [facility] Last Admin: 09/18/18 21:11 Dose: 25 mls/hr Dextrose/Lactated Ringer's (Dextrose 5%-Lactated Ringers) 1,000 mls @ 25 mls/ hr IV ASDIRECTED [facility] Last Admin: 09/27/18 05:50 Dose: 25 mls/hr Loperamide HCl (Imodium) 2 mg PO ASDIRECTED PRN PRN Reason: LOOSE STOOLS Metoprolol Tartrate (Lopressor) 25 mg PO Q12H [facility] Last Admin: 09/28/18 08:19 Dose: 25 mg Nystatin (Nystop) 0 gm TOP QID [facility] Last Admin: 09/28/18 09:36 Dose: 1 applic Pantoprazole Sodium (Protonix) 40 mg PO BEDTIME [facility] Last Admin: 09/27/18 21:31 Dose: 40 mg Discontinued Medications Acetaminophen (Tylenol) 650 mg PO Q4H PRN PRN Reason: Pain (Mild 1-3)/fever Acetaminophen (Tylenol) 650 mg RECTAL Q4H PRN PRN Reason: Mild pain/fever Acetylcysteine (Mucomyst 20%) 200 mg NEB QIDRT [facility] Last Admin: 09/20/18 07:00 Dose: 200 mg Albuterol (Proventil Neb Soln) 2.5 mg NEB Q4H PRN PRN Reason: Shortness Of Breath/wheezing Albuterol/Ipratropium (Duoneb 3.0-0.5 Mg/3 Ml) 3 ml INH PREPRO ONE Stop: 09/03/18 17:01 Last Admin: 09/03/18 16:25 Dose: 3 ml Albuterol/Ipratropium (Duoneb 3.0-0.5 Mg/3 Ml) 3 ml NEB QID [facility] Last Admin: 09/13/18 21:11 Dose: 3 ml Aztreonam (Azactam) Confirm Administered Dose 1 gm .ROUTE .STK-MED ONE Stop: 09/03/18 21:44 Last Admin: 09/03/18 22:15 Dose: Not Given Benazepril HCl (Lotensin) 40 mg PO ONETIME ONE Stop: 09/03/18 10:41 Last Admin: 09/03/18 11:00 Dose: 40 mg Benazepril HCl (Lotensin) 40 mg NGTUBE DAILY [facility] Last Admin: 09/20/18 09:55 Dose: Not Given Bupivacaine HCl (Marcaine 0.5%) Confirm Administered Dose 50 ml .ROUTE .STK-MED ONE Stop: 09/07/18 06:48 Last Admin: 09/07/18 10:53 Dose: 18 ml Bupivacaine HCl (Marcaine 0.5%) Confirm Administered Dose 50 ml .ROUTE .STK-MED ONE Stop: 09/11/18 09:07 Last Admin: 09/11/18 10:49 Dose: 2 ml Ropivacaine 22 ml/Dexamethasone 8 mg/Epinephrine HCl 0.4 mg/ Sodium Chloride 55.6 ml 0 ml NERVRT ASDIRECTED [facility] Ropivacaine 22 ml/Dexamethasone 8 mg/Epinephrine HCl 0.4 mg/ Sodium Chloride 55.6 ml 0 ml NERVRT ASDIRECTED [facility] Last Admin: 09/04/18 14:03 Dose: 80 syringe Ropivacaine 22 ml/Dexamethasone 8 mg/Epinephrine HCl 0.4 mg/ Sodium Chloride 55.6 ml 0 ml NERVRT ASDIRECTED [facility] Last Admin: 09/07/18 11:07 Dose: 80 syringe Dexamethasone (Dexamethasone) Confirm Administered Dose 4 mg .ROUTE .STK-MED ONE Stop: 09/03/18 14:41 Dexamethasone (Dexamethasone) Confirm Administered Dose 4 mg .ROUTE .STK-MED ONE Stop: 09/04/18 09:47 Fentanyl (Sublimaze) 25 mcg IVPUSH ONETIME ONE Stop: 09/03/18 13:57 Last Admin: 09/03/18 14:16 Dose: 25 mcg Fentanyl (Sublimaze) 25 mcg IVPUSH Q2H PRN PRN Reason: Pain (severe 7-10) Fentanyl (Sublimaze) Confirm Administered Dose 250 mcg .ROUTE .STK-MED ONE Stop: 09/03/18 14:41 Fentanyl (Sublimaze) Confirm Administered Dose 250 mcg .ROUTE .STK-MED ONE Stop: 09/04/18 09:46 Fentanyl (Sublimaze) Confirm Administered Dose 250 mcg .ROUTE .STK-MED ONE Stop: 09/04/18 13:57 Fentanyl (Sublimaze) Confirm Administered Dose 100 mcg .ROUTE .STK-MED ONE Stop: 09/11/18 10:36 Fentanyl (Sublimaze) Confirm Administered Dose 250 mcg .ROUTE .STK-MED ONE Stop: 09/20/18 07:50 Furosemide (Lasix) 20 mg IVPUSH ONETIME ONE Stop: 09/04/18 15:10 Last Admin: 09/04/18 15:18 Dose: 20 mg Furosemide (Lasix) 40 mg IV ONETIME ONE Stop: 09/06/18 08:16 Last Admin: 09/06/18 08:26 Dose: 40 mg Furosemide (Lasix) 20 mg IV Q12H [facility] Stop: 09/07/18 20:01 Last Admin: 09/07/18 20:10 Dose: 20 mg Furosemide (Lasix) 20 mg IVPUSH Q12H [facility] Stop: 09/08/18 19:01 Last Admin: 09/08/18 19:50 Dose: 20 mg Furosemide (Lasix) 20 mg IVPUSH ONETIME ONE Stop: 09/09/18 07:01 Last Admin: 09/09/18 08:14 Dose: 20 mg Furosemide (Lasix) 20 mg IVPUSH ONETIME ONE Stop: 09/09/18 11:01 Last Admin: 09/09/18 12:38 Dose: 20 mg Furosemide (Lasix) 20 mg IVPUSH ONETIME ONE Stop: 09/09/18 20:01 Furosemide (Lasix) 20 mg IV Q8H [facility] Stop: 09/11/18 00:31 Last Admin: 09/10/18 23:50 Dose: 20 mg Furosemide (Lasix) 20 mg IV Q8H [facility] Stop: 09/12/18 00:01 Last Admin: 09/11/18 23:34 Dose: 20 mg Furosemide (Lasix) 20 mg IVPUSH Q8H [facility] Stop: 09/13/18 02:31 Last Admin: 09/13/18 02:39 Dose: 20 mg Furosemide (Lasix) 20 mg IVPUSH Q8H [facility] Stop: 09/14/18 02:31 Last Admin: 09/14/18 02:29 Dose: 20 mg Furosemide (Lasix) 40 mg IVPUSH ONETIME ONE Stop: 09/14/18 10:01 Last Admin: 09/14/18 13:28 Dose: 40 mg Furosemide (Lasix) 20 mg IVPUSH BID [facility] Furosemide (Lasix) 20 mg IVPUSH ONETIME ONE Stop: 09/15/18 06:34 Last Admin: 09/15/18 06:48 Dose: 20 mg Furosemide (Lasix) 40 mg IVPUSH Q8H [facility] Stop: 09/15/18 20:31 Last Admin: 09/15/18 20:39 Dose: 40 mg Furosemide (Lasix) 40 mg IV BID [facility] Stop: 09/16/18 21:01 Last Admin: 09/16/18 21:19 Dose: 40 mg Furosemide (Lasix) 40 mg IV Q12H [facility] Stop: 09/17/18 21:01 Last Admin: 09/17/18 21:11 Dose: 40 mg Furosemide (Lasix) 40 mg IV Q8H [facility] Stop: 09/18/18 16:01 Last Admin: 09/18/18 16:00 Dose: 40 mg Furosemide (Lasix) 40 mg IV Q12H [facility] Stop: 09/19/18 20:01 Last Admin: 09/19/18 19:23 Dose: 40 mg Furosemide (Lasix) 20 mg IVPUSH Q12H [facility] Stop: 09/20/18 22:01 Last Admin: 09/20/18 21:52 Dose: 20 mg Furosemide (Lasix) 20 mg IVPUSH Q8H [facility] Stop: 09/21/18 20:01 Last Admin: 09/21/18 19:37 Dose: 20 mg Furosemide (Lasix) 20 mg IVPUSH Q6H [facility] Stop: 09/22/18 14:01 Last Admin: 09/22/18 13:54 Dose: 20 mg Furosemide (Lasix) Confirm Administered Dose 40 mg .ROUTE .STK-MED ONE Stop: 09/23/18 06:19 Last Admin: 09/23/18 07:04 Dose: Not Given Furosemide (Lasix) 40 mg IVPUSH ONETIME ONE Stop: 09/23/18 06:21 Last Admin: 09/23/18 06:15 Dose: 40 mg Furosemide (Lasix) 40 mg IV ONETIME ONE Stop: 09/23/18 14:31 Last Admin: 09/23/18 14:05 Dose: 40 mg Furosemide (Lasix) 40 mg IVPUSH NOW ONE Stop: 09/23/18 18:01 Last Admin: 09/23/18 17:12 Dose: 40 mg Furosemide (Lasix) 40 mg IV NOW ONE Stop: 09/24/18 08:01 Last Admin: 09/24/18 07:57 Dose: 40 mg Furosemide (Lasix) 40 mg IV ONETIME ONE Stop: 09/24/18 16:01 Last Admin: 09/24/18 15:49 Dose: 40 mg Furosemide (Lasix) 40 mg IV Q12H [facility] Stop: 09/25/18 20:01 Last Admin: 09/25/18 20:09 Dose: 40 mg Furosemide (Lasix) 40 mg IVPUSH NOW ONE Stop: 09/26/18 09:51 Last Admin: 09/26/18 09:52 Dose: 40 mg Furosemide (Lasix) 40 mg IVPUSH ONETIME ONE Stop: 09/27/18 11:31 Last Admin: 09/27/18 11:53 Dose: 40 mg Furosemide (Lasix) 40 mg IV ONETIME ONE Stop: 09/28/18 09:01 Last Admin: 09/28/18 08:19 Dose: 40 mg Furosemide (Lasix) 20 mg IVPUSH ONETIME ONE Stop: 09/28/18 17:01 Gentamicin Sulfate (Gentamicin) 1 mg IV .Pharmacy to Dose [facility] Stop: 09/08/18 14:31 Glycopyrrolate (Robinul) Confirm Administered Dose 1 mg .ROUTE .STK-MED ONE Stop: 09/03/18 14:41 Glycopyrrolate (Robinul) Confirm Administered Dose 1 mg .ROUTE .STK-MED ONE Stop: 09/04/18 09:47 Heparin Sodium (Porcine) (Heparin Sodium) Confirm Administered Dose 5,000 units .ROUTE .STK-MED ONE Stop: 09/03/18 18:32 Heparin Sodium (Porcine) (Heparin Lock Flush 100 Units/Ml) Confirm Administered Dose 500 units .ROUTE .STK-MED ONE Stop: 09/04/18 13:14 Heparin Sodium (Porcine) (Heparin Lock Flush 100 Units/Ml) Confirm Administered Dose 1,000 units .ROUTE .STK-MED ONE Stop: 09/11/18 09:07 Last Admin: 09/11/18 10:58 Dose: 1,000 units Heparin Sodium (Porcine) (Heparin Lock Flush 100 Units/Ml) Confirm Administered Dose 500 units .ROUTE .STK-MED ONE Stop: 09/11/18 10:44 Last Admin: 09/11/18 10:58 Dose: 500 units Hydralazine HCl (Apresoline) 5 mg IVPUSH Q4H PRN PRN Reason: Hypertension Last Admin: 09/19/18 13:41 Dose: 5 mg Hydromorphone HCl (Dilaudid) 0.5 mg IVPUSH ONETIME ONE Stop: 09/03/18 10:48 Last Admin: 09/03/18 11:00 Dose: 0.5 mg Hydromorphone HCl (Dilaudid) 0.5 mg IVPUSH ONETIME ONE Stop: 09/03/18 11:22 Last Admin: 09/03/18 11:25 Dose: 0.5 mg Hydromorphone HCl (Dilaudid) 0.5 mg IVPUSH ONETIME ONE Stop: 09/03/18 12:10 Last Admin: 09/03/18 12:12 Dose: 0.5 mg Hydromorphone HCl (Dilaudid) 0.5 mg IVPUSH ONETIME ONE Stop: 09/03/18 12:40 Last Admin: 09/03/18 12:44 Dose: 0.5 mg Hydromorphone HCl (Dilaudid) 1 mg IVPUSH ONETIME ONE Stop: 09/03/18 12:57 Last Admin: 09/03/18 13:00 Dose: 1 mg Hydromorphone HCl (Dilaudid [employer] 15 Mg In Ns 30 Ml) 0 mg IV ASDIRECTED PRN; Protocol PRN Reason: [employer] 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 Last Admin: 09/09/18 05:52 Dose: 15 mg Sodium Chloride (Normal Saline) 1,000 mls @ 1,000 mls/hr IV .BOLUS ONE Stop: 09/03/18 12:17 Last Admin: 09/03/18 11:25 Dose: 1,000 mls/hr Piperacillin/Tazobactam/ (Dextrose 4.5 gm/ Premix) 100 mls @ 200 mls/hr IV ONETIME ONE Stop: 09/03/18 13:29 Last Admin: 09/03/18 13:04 Dose: 200 mls/hr Sodium Chloride (Normal Saline) 1,000 mls @ 500 mls/hr IV ASDIRECTED [facility] Last Admin: 09/03/18 13:00 Dose: 500 mls/hr Lactated Ringer's (Ringers, Lactated) 1,000 mls @ 125 mls/hr IV ASDIRECTED [facility] Last Admin: 09/03/18 16:07 Dose: 125 mls/hr Aztreonam 2 gm/ Sodium (Chloride) 100 mls @ 200 mls/hr IV NOW ONE Stop: 09/03/18 15:29 Last Admin: 09/03/18 14:56 Dose: 200 mls/hr Meropenem 500 mg/ Sodium (Chloride) 50 mls @ 100 mls/hr IV ONCALL ONE Stop: 09/03/18 17:29 Last Admin: 09/03/18 16:25 Dose: 100 mls/hr Piperacillin/Tazobactam/ (Dextrose 3.375 gm/ Premix) 50 mls @ 100 mls/hr IV Q6H [facility] Last Admin: 09/03/18 22:15 Dose: Not Given Sodium Chloride (Normal Saline) Confirm Administered Dose 500 mls @ as directed .ROUTE .STK-MED ONE Stop: 09/03/18 18:33 Aztreonam/Dextrose 1 gm/ (Premix) 50 mls @ 100 mls/hr IV Q8HR [facility] Meropenem 500 mg/ Sodium (Chloride) 50 mls @ 100 mls/hr IV Q8H [facility] Last Admin: 09/10/18 05:17 Dose: 100 mls/hr Sodium Chloride (Normal Saline) Confirm Administered Dose 50 mls @ as directed .ROUTE .[facility] ONE Stop: 09/03/18 22:01 Last Admin: 09/03/18 22:21 Dose: Not Given Aztreonam/Dextrose 1 gm/ (Premix) 50 mls @ 100 mls/hr IV Q8H [facility] Last Admin: 09/04/18 07:30 Dose: Not Given Dextrose/Lactated Ringer's (Dextrose 5%-Lactated Ringers) 1,000 mls @ 100 mls/ hr IV ASDIRECTED PRN PRN Reason: Hypotension Dextrose/Lactated Ringer's (Dextrose 5%-Lactated Ringers) 1,000 mls @ 100 mls/ hr IV ASDIRECTED [facility] Last Admin: 09/05/18 02:13 Dose: 100 mls/hr Lactated Ringer's (Ringers, Lactated) 1,000 mls @ 100 mls/hr IV ASDIRECTED [facility] Last Admin: 09/04/18 04:20 Dose: 100 mls/hr Lactated Ringer's (Ringers, Lactated) 500 mls @ 500 mls/hr IV .BOLUS [facility] Last Admin: 09/04/18 01:10 Dose: 500 mls/hr Lactated Ringer's (Ringers, Lactated) 500 mls @ 500 mls/hr IV .BOLUS [facility] Last Admin: 09/04/18 03:13 Dose: 500 mls/hr Propofol (Diprivan 100 Ml) 100 mls @ 1.361 mls/hr IV TITRATE [facility]; Protocol Last Titration: 09/04/18 07:52 Dose: 14 mcg/kg/min, 3.81 mls/hr Propofol (Diprivan 100 Ml) Confirm Administered Dose 100 [facility]ls @ [facility] Stop: 09/04/18 03:45 Last Admin: 09/04/18 03:59 Dose: Not Given Lactated Ringer's (Ringers, Lactated) 500 mls @ 999 mls/hr IV .BOLUS [facility] Last Admin: 09/04/18 06:10 Dose: 999 mls/hr Aztreonam/Dextrose 1 gm/ (Premix) 50 mls @ 100 mls/hr IV Q8H [facility] Last Admin: 09/07/18 08:15 Dose: 100 mls/hr Lactated Ringer's (Ringers, Lactated) 500 mls @ 500 mls/hr IV ASDIRECTED [facility] Last Admin: 09/04/18 21:04 Dose: 500 mls/hr Lactated Ringer's (Ringers, Lactated) Confirm Administered Dose 1,000 mls @ as directed .ROUTE .STK-MED ONE Stop: 09/04/18 13:11 Lactated Ringer's (Ringers, Lactated) Confirm Administered Dose 1,000 mls @ as directed .ROUTE .STK-[facility] ONE Stop: 09/04/18 13:11 Sodium Chloride (Normal Saline) Confirm Administered Dose 10 mls @ as directed .ROUTE .K-[facility] ONE Stop: 09/04/18 13:15 Magnesium Sulfate 2 gm/ Premix 50 mls @ 25 mls/hr IV Q6H [facility] Stop: 09/06/18 11:59 Last Admin: 09/06/18 10:17 Dose: 25 mls/hr Lactated Ringer's (Ringers, Lactated) 500 mls @ 500 mls/hr IV ASDIRECTED [facility] Stop: 09/04/18 17:46 Heparin Sodium (Porcine) 5,000 (units/ Sodium Chloride) 501 [facility]ls [facility] Admin: 09/22/18 12:58 Dose: 5 mls/hr Lactated Ringer's (Ringers, Lactated) 500 mls @ 500 mls/hr IV ONETIME ONE Stop: 09/04/18 19:29 Last Admin: 09/04/18 18:37 Dose: 500 mls/hr Lactated Ringer's (Ringers, Lactated) 500 mls @ 1,000 mls/hr IV ONETIME ONE Stop: 09/04/18 23:30 Last Admin: 09/04/18 23:18 Dose: 1,000 mls/hr Lactated Ringer's (Ringers, Lactated) 500 mls @ 1,000 mls/hr IV ONETIME ONE Stop: 09/05/18 01:44 Last Admin: 09/05/18 01:15 Dose: 1,000 mls/hr Lactated Ringer's (Ringers, Lactated) 1,000 mls @ 150 mls/hr IV ASDIRECTED [facility] Last Admin: 09/05/18 02:13 Dose: 150 mls/hr Lactated Ringer's (Ringers, Lactated) 500 mls @ 1,000 mls/hr IV ONETIME ONE Stop: 09/05/18 03:38 Last Admin: 09/05/18 03:15 Dose: 1,000 mls/hr Multivitamins/Minerals 10 ml/Chromium/Copper/Manganese/Seleni/Zn 1 ml/ Amino Ac/ Electrol/Dextrose/Calcium 2,011 mls @ 82 mls/hr IV .BY DURATION [facility] Stop: 09/05/18 13:25 Last Admin: 09/05/18 13:32 Dose: Not Given Amino Ac/Electrol/Dextrose/Calcium (Clinimix E 5/15) 2,000 mls @ 82 mls/hr IV .BY DURATION [facility] Stop: 09/05/18 13:25 Vancomycin HCl 1 gm/ Sodium (Chloride) 250 mls @ 167 mls/hr IV Q24H [facility] Last Admin: 09/05/18 12:34 Dose: 167 mls/hr Sodium Chloride (Normal Saline) 1,000 mls @ 50 mls/hr IV ASDIRECTED [facility] Last Admin: 09/05/18 12:51 Dose: 50 mls/hr Multivitamins/Minerals 10 ml/Chromium/Copper/Manganese/Seleni/Zn 1 ml/ Amino Ac/ Electrol/Dextrose/Calcium 2,011 mls @ 82 mls/hr IV .BY DURATION [facility] Stop: 09/08/18 13:20 Last Admin: 09/07/18 15:09 Dose: 82 mls/hr Amino Ac/Electrol/Dextrose/Calcium (Clinimix E 5/15) 2,000 mls @ 82 mls/hr IV .BY DURATION [facility] Stop: 09/08/18 13:20 Vancomycin HCl 1 gm/ Sodium (Chloride) 250 mls @ 167 mls/hr IV Q24H [facility] Last Admin: 09/06/18 12:00 Dose: 167 mls/hr Sodium Chloride (Normal Saline) 500 mls @ 500 mls/hr IV ASDIRECTED ONE Stop: 09/05/18 16:29 Last Admin: 09/05/18 15:40 Dose: 500 mls/hr Sodium Chloride (Normal Saline) 1,000 mls @ 100 mls/hr IV ASDIRECTED [facility] Last Admin: 09/07/18 07:31 Dose: 100 mls/hr Heparin Sodium (Porcine) 5,000 (units/ Sodium Chloride) 501 mls @ 5 mls/hr IV ASDIRECTED [facility] Last Admin: 09/22/18 14:59 Dose: 5 mls/hr Propofol (Diprivan 100 Ml) 100 mls @ 1.361 mls/hr IV TITRATE [facility]; Protocol Last Titration: 09/17/18 03:30 Dose: 25 mcg/kg/min, 6.804 mls/hr Potassium Phosphate 20 mmole/ (Sodium Chloride) 106.6667 mls @ 35 mls/hr IV Q3H [facility] Stop: 09/07/18 17:29 Last Admin: 09/07/18 15:01 Dose: 35 mls/hr Albumin Human (Albumin 25%) 25 gm in 100 mls @ 25 mls/hr IV DAILY NAHED Stop: 09/09/18 12:59 Last Admin: 09/09/18 08:25 Dose: 25 mls/hr Albumin Human (Albumin 25%) 25 gm in 100 mls @ 25 mls/hr IV Q24H NAH[facility] Stop: 09/09/18 17:59 Last Admin: 09/09/18 14:32 Dose: 25 mls/hr Sodium Chloride (Normal Saline) 1,000 mls @ 0 mls/hr IV ASDIRECTED [facility] Last Admin: 09/19/18 05:15 Dose: 12.5 mls/hr Aztreonam 1 gm/ Sodium (Chloride) 50 mls @ 100 mls/hr IV Q8H [facility] Last Admin: 09/08/18 09:41 Dose: 100 mls/hr Vancomycin HCl 1 gm/ Sodium (Chloride) 250 mls @ 167 mls/hr IV Q18H [facility] Last Admin: 09/09/18 18:42 Dose: 167 mls/hr Sodium Chloride (Normal Saline) 1,000 mls @ 999 mls/hr IV .BOLUS ONE Stop: 09/07/18 17:39 Last Admin: 09/07/18 17:26 Dose: 999 mls/hr Potassium Acetate 40 meq/ (Sodium Chloride) 120 mls @ 30 mls/hr IV ONETIME ONE Stop: 09/08/18 13:59 Last Admin: 09/08/18 09:44 Dose: 30 mls/hr Multivitamins/Minerals 10 ml/Chromium/Copper/Manganese/Seleni/Zn 1 ml/ Amino Ac/ Electrol/Dextrose/Calcium 1,011 mls @ 62 mls/hr IV .BY DURATION [facility] Stop: 09/20/18 17:00 Last Admin: 09/19/18 09:10 Dose: 62 mls/hr Amino Ac/Electrol/Dextrose/Calcium (Clinimix E /20) 1,000 mls @ 62 mls/hr IV .BY DURATION [facility] Stop: 09/20/18 17:00 Last Admin: 09/20/18 01:21 Dose: 62 mls/hr Sodium Chloride (Normal Saline) 100 mls @ 3 mls/sec IV ASDIRECTED [facility] Stop: 09/08/18 15:00 Last Admin: 09/08/18 14:17 Dose: 3 mls/sec Azithromycin 500 mg/ Sodium (Chloride) 250 mls @ 250 mls/hr IV Q24H [facility] Last Admin: 09/09/18 15:27 Dose: 250 mls/hr Gentamicin Sulfate 228 mg/ (Sodium Chloride) 105.7 mls @ 100 mls/hr IV ONETIME ONE Stop: 09/08/18 17:03 Last Admin: 09/08/18 16:19 Dose: 100 mls/hr Potassium Phosphate 15 mmole/ (Sodium Chloride) 105 mls @ 55 mls/hr IV Q2H [facility] Stop: 09/09/18 12:55 Last Admin: 09/09/18 15:27 Dose: 55 mls/hr Gentamicin Sulfate 228 mg/ (Sodium Chloride) 105.7 mls @ 100 mls/hr IV Q36H [facility] Last Admin: 09/10/18 03:55 Dose: 100 mls/hr Sodium Chloride (Normal Saline) 500 mls @ 999 mls/hr IV .BOLUS ONE Stop: 09/09/18 16:34 Last Admin: 09/09/18 16:18 Dose: 999 mls/hr Sodium Chloride (Normal Saline) 500 mls @ 999 mls/hr IV .BOLUS ONE Stop: 09/09/18 17:35 Last Admin: 09/09/18 17:18 Dose: 999 mls/hr Sodium Chloride (Normal Saline) 1,000 mls @ 125 mls/hr IV ASDIRECTED [facility] Last Admin: 09/10/18 01:41 Dose: 125 mls/hr Lactated Ringer's (Ringers, Lactated) 1,000 mls @ 125 mls/hr IV ASDIRECTED [facility] Last Admin: 09/11/18 01:06 Dose: 125 mls/hr Meropenem 500 mg/ Sodium (Chloride) 25 mls @ 50 mls/hr IV Q8H [facility] Last Admin: 09/20/18 13:05 Dose: 50 mls/hr Gentamicin Sulfate 228 mg/ (Sodium Chloride) 55.7 mls @ 55 mls/hr IV Q36H [facility] Last Admin: 09/14/18 16:49 Dose: 55 mls/hr Azithromycin 500 mg/ Dextrose/ (Water) 250 mls @ 250 mls/hr IV Q24H [facility] Stop: 09/17/18 17:00 Last Admin: 09/14/18 15:42 Dose: 250 mls/hr Vancomycin HCl 1 gm/ Dextrose/ (Water) 250 mls @ 167 mls/hr IV Q24H [facility] Last Admin: 09/13/18 17:48 Dose: 167 mls/hr Fluconazole/Sodium Chloride (200 mg/ Premix) 100 mls @ 100 mls/hr IV Q24H [facility] Last Admin: 09/15/18 20:38 Dose: 100 mls/hr Magnesium Sulfate 2 gm/ Premix 50 mls @ 25 mls/hr IV Q6H [facility] Stop: 09/13/18 05:59 Last Admin: 09/13/18 03:31 Dose: 25 mls/hr Potassium Phosphate 22.5 mmole (/ Dextrose/Water) 107.5 mls @ 27 mls/hr IV Q4H [facility] Stop: 09/11/18 17:29 Last Admin: 09/11/18 14:45 Dose: 27 mls/hr Lactated Ringer's (Ringers, Lactated) 1,000 mls @ 75 mls/hr IV ASDIRECTED [facility] Last Admin: 09/13/18 22:27 Dose: 75 mls/hr Sodium Chloride (Normal Saline) Confirm Administered Dose 10 mls @ as directed .ROUTE .STK-MED ONE Stop: 09/11/18 10:41 Potassium Chloride 40 meq/ (Premix) 100 mls @ 25 mls/hr IV ONETIME ONE Stop: 09/13/18 12:59 Last Admin: 09/13/18 09:31 Dose: 25 mls/hr Potassium Chloride 40 meq/ (Premix) 100 mls @ 25 mls/hr IV ONETIME ONE Stop: 09/13/18 17:59 Last Admin: 09/13/18 13:11 Dose: 25 mls/hr Albumin Human (Albumin 25%) 25 gm in 100 mls @ 25 mls/hr IV Q24H [facility] Stop: 09/16/18 11:59 Last Admin: 09/16/18 09:02 Dose: 25 mls/hr Albumin Human (Albumin 25%) 25 gm in 100 mls @ 25 mls/hr IV Q24H [facility] Stop: 09/16/18 15:59 Last Admin: 09/16/18 12:33 Dose: 25 mls/hr Fluconazole/Sodium Chloride (400 mg/ Premix) 200 mls @ 100 mls/hr IV Q24H [facility] Last Admin: 09/24/18 20:22 Dose: 100 mls/hr Potassium Chloride 40 meq/ (Premix) 100 mls @ 25 mls/hr IV ONETIME ONE Stop: 09/16/18 11:59 Last Admin: 09/16/18 08:02 Dose: 25 mls/hr Potassium Chloride 20 meq/ (Premix) 100 mls @ 50 mls/hr IV ONETIME ONE Stop: 09/16/18 13:59 Last Admin: 09/16/18 11:36 Dose: 50 mls/hr Potassium Chloride 40 meq/ (Premix) 100 mls @ 25 mls/hr IV ONETIME ONE Stop: 09/17/18 11:59 Last Admin: 09/17/18 08:43 Dose: 25 mls/hr Magnesium Sulfate 2 gm/ Premix 50 mls @ 25 mls/hr IV Q6H [facility] Stop: 09/19/18 05:59 Last Admin: 09/19/18 03:26 Dose: 25 mls/hr Potassium Chloride 40 meq/ (Premix) 100 mls @ 25 mls/hr IV ONETIME ONE Stop: 09/18/18 12:59 Last Admin: 09/18/18 08:34 Dose: 25 mls/hr Potassium Chloride 40 meq/ (Premix) 100 mls @ 25 mls/hr IV ONETIME ONE Stop: 09/19/18 11:59 Last Admin: 09/19/18 08:19 Dose: 25 mls/hr Potassium Chloride 20 meq/ (Premix) 100 mls @ 50 mls/hr IV ONETIME ONE Stop: 09/19/18 13:59 Last Admin: 09/19/18 11:05 Dose: 50 mls/hr Propofol (Diprivan 100 Ml) 100 mls @ 2.354 mls/hr IV TITRATE [facility]; Protocol Last Admin: 09/20/18 05:35 Dose: 15 mcg/kg/min, 7.062 mls/hr Multivitamins/Minerals 10 ml/Chromium/Copper/Manganese/Seleni/Zn 1 ml/ Amino Ac/ Electrol/Dextrose/Calcium 2,011 mls @ 100 mls/hr IV .BY DURATION [facility] Amino Ac/Electrol/Dextrose/Calcium (Clinimix E 5/20) 2,000 mls @ 100 mls/hr IV .BY DURATION [facility] Multivitamins/Minerals 10 ml/Chromium/Copper/Manganese/Seleni/Zn 1 ml/ Amino Ac/ Electrol/Dextrose/Calcium 2,011 mls @ 62 mls/hr IV .BY DURATION [facility] Stop: 09/21/18 16:50 Last Admin: 09/20/18 17:31 Dose: 62 mls/hr Amino Ac/Electrol/Dextrose/Calcium (Clinimix E 5/20) 2,000 mls @ 62 mls/hr IV .BY DURATION [facility] Stop: 09/21/18 16:50 Potassium Chloride 40 meq/ (Premix) 100 mls @ 25 mls/hr IV ONETIME ONE Stop: 09/21/18 12:59 Last Admin: 09/21/18 09:38 Dose: 25 mls/hr Multivitamins/Minerals 10 ml/Chromium/Copper/Manganese/Seleni/Zn 1 ml/ Amino Ac/ Electrol/Dextrose/Calcium 2,011 mls @ 62 mls/hr IV .BY DURATION [facility] Last Admin: 09/23/18 16:06 Dose: 62 mls/hr Amino Ac/Electrol/Dextrose/Calcium (Clinimix E 5/20) 2,000 mls @ 62 mls/hr IV .BY DURATION [facility] Potassium Phosphate 22.5 mmole (/ Sodium Chloride) 257.5 mls @ 86 mls/hr IV Q3H [facility] Stop: 09/22/18 20:59 Last Admin: 09/22/18 17:50 Dose: 86 mls/hr Magnesium Sulfate 2 gm/ Premix 50 mls @ 25 mls/hr IV Q6H [facility] Stop: 09/25/18 05:59 Last Admin: 09/25/18 04:29 Dose: 25 mls/hr Dextrose/Lactated Ringer's (Dextrose 5%-Lactated Ringers) 1,000 mls @ 40 mls/ hr IV ASDIRECTED [facility] Last Admin: 09/24/18 07:51 Dose: 40 mls/hr Potassium Chloride 40 meq/ (Premix) 100 mls @ 25 mls/hr IV ONETIME ONE Stop: 09/24/18 12:59 Potassium Chloride 40 meq/ (Premix) 100 mls @ 25 mls/hr IV ONETIME ONE Stop: 09/24/18 17:59 Last Admin: 09/24/18 21:05 Dose: 25 mls/hr Potassium Phosphate 22.5 mmole (/ Sodium Chloride) 107.5 mls @ 27 mls/hr IV Q4H [facility] Stop: 09/25/18 01:59 Last Admin: 09/25/18 04:43 Dose: 27 mls/hr Multivitamins/Minerals 10 ml/Chromium/Copper/Manganese/Seleni/Zn 1 ml/ Amino Ac/ Electrol/Dextrose/Calcium 1,011 mls @ 62 mls/hr IV .BY DURATION [facility] Amino Ac/Electrol/Dextrose/Calcium (Clinimix E 5/20) 1,000 mls @ 62 mls/hr IV .BY DURATION [facility] Sodium Chloride (Normal Saline) 1,000 mls @ 25 mls/hr IV ASDIRECTED [facility] Multivitamins/Minerals 10 ml/Chromium/Copper/Manganese/Seleni/Zn 1 ml/ Amino Ac/ Electrol/Dextrose/Calcium 1,011 mls @ 62 mls/hr IV .BY DURATION [facility] Stop: 09/26/18 16:00 Last Admin: 09/25/18 12:50 Dose: 62 mls/hr Amino Ac/Electrol/Dextrose/Calcium (Clinimix E 5/20) 1,000 mls @ 62 mls/hr IV .BY DURATION [facility] Stop: 09/26/18 16:00 Last Admin: 09/26/18 07:43 Dose: 62 mls/hr Multivitamins/Minerals 10 ml/Chromium/Copper/Manganese/Seleni/Zn 1 ml/ Amino Ac/ Electrol/Dextrose/Calcium 1,011 mls @ 40 mls/hr IV .BY DURATION [facility] Last Admin: 09/27/18 05:54 Dose: 40 mls/hr Amino Ac/Electrol/Dextrose/Calcium (Clinimix E 20) 1,000 mls @ 40 mls/hr IV .BY DURATION [facility] Potassium Phosphate 22.5 mmole (/ Sodium Chloride) 107.5 mls @ 27 mls/hr IV Q4H [facility] Stop: 09/27/18 17:29 Last Admin: 09/27/18 13:53 Dose: 27 mls/hr Iopamidol (Isovue-300 (61%)) 100 ml IV . DIRECTED PRN PRN Reason: RADIOLOGY EXAM Stop: 09/09/18 11:03 Last Admin: 09/08/18 14:16 Dose: 100 ml Ketoconazole (Nizoral 2% Crm) 0 gm TOP TID [facility] Last Admin: 09/24/18 13:53 Dose: Not Given Lidocaine HCl (Xylocaine 2% Viscous) Confirm Administered Dose 15 ml .ROUTE .STK -MED ONE Stop: 09/12/18 11:15 Lidocaine HCl (Xylocaine 4% Top Soln) Confirm Administered Dose 50 ml .ROUTE .STK-MED ONE Stop: 09/12/18 11:15 Lidocaine HCl (Xylocaine 4% Top Soln) Confirm Administered Dose 50 ml .ROUTE .STK-MED ONE Stop: 09/14/18 06:57 Last Admin: 09/14/18 07:20 Dose: 20 ml Lidocaine HCl (Xylocaine-Mpf 1%) 5 ml INJECT ONETIME ONE Stop: 09/17/18 06:31 Last Admin: 09/17/18 06:52 Dose: 5 ml Lidocaine HCl (Xylocaine 2% Viscous) Confirm Administered Dose 15 ml .ROUTE .STK -MED ONE Stop: 09/20/18 06:37 Lidocaine HCl (Xylocaine 4% Top Soln) Confirm Administered Dose 50 ml .ROUTE .STK-MED ONE Stop: 09/20/18 06:38 Last Admin: 09/20/18 09:05 Dose: 50 ml Lidocaine/Epinephrine (Xylocaine 1% With Epinephrine 1:100,000) Confirm Administered Dose 50 ml .ROUTE .STK-MED ONE Stop: 09/07/18 06:48 Last Admin: 09/07/18 10:54 Dose: 18 ml Lidocaine/Epinephrine (Xylocaine 1% With Epinephrine 1:100,000) Confirm Administered Dose 50 ml .ROUTE .STK-MED ONE Stop: 09/11/18 09:07 Last Admin: 09/11/18 10:49 Dose: 2 ml Lidocaine/Epinephrine (Xylocaine 1% With Epinephrine 1:100,000) Confirm Administered Dose 50 ml .ROUTE .STK-MED ONE Stop: 09/20/18 06:38 Lorazepam (Ativan) 0.5 mg IVPUSH Q4H PRN PRN Reason: Nausea/Vomiting Lorazepam (Ativan) 0.5 mg IVPUSH Q3H PRN PRN Reason: AGITATION Last Admin: 09/18/18 13:47 Dose: 0.5 mg Lorazepam (Ativan) 0.5 mg IVPUSH Q1H PRN PRN Reason: Anxiety Last Admin: 09/27/18 20:30 Dose: 0.5 mg Meropenem (Merrem) Confirm Administered Dose 1,000 mg .ROUTE .STK-MED ONE Stop: 09/03/18 17:54 Last Admin: 09/03/18 18:32 Dose: 3,500 mg Meropenem (Merrem) Confirm Administered Dose 1,000 mg .ROUTE .STK-MED ONE Stop: 09/03/18 18:04 Meropenem (Merrem) Confirm Administered Dose 2,000 mg .ROUTE .STK-MED ONE Stop: 09/03/18 18:18 Meropenem (Merrem) Confirm Administered Dose 500 mg .ROUTE .STK-MED ONE Stop: 09/07/18 06:48 Last Admin: 09/07/18 10:53 Dose: 500 mg Metoprolol Tartrate (Lopressor) 25 mg PO ONETIME ONE Stop: 09/03/18 10:41 Last Admin: 09/03/18 11:00 Dose: 25 mg Metoprolol Tartrate (Lopressor) 5 mg IVPUSH Q6H [facility] Last Admin: 09/08/18 09:25 Dose: 5 mg Metoprolol Tartrate (Lopressor) 2.5 mg IVPUSH Q6H [facility] Last Admin: 09/10/18 03:55 Dose: 2.5 mg Metoprolol Tartrate (Lopressor) Confirm Administered Dose 5 mg .ROUTE .STK-MED ONE Stop: 09/08/18 21:53 Last Admin: 09/08/18 22:19 Dose: Not Given Metoprolol Tartrate (Lopressor) 2.5 mg IVPUSH Q4H [facility] Last Admin: 09/11/18 21:25 Dose: Not Given Metoprolol Tartrate (Lopressor) 2.5 mg IVPUSH Q4H PRN PRN Reason: Hypertension Last Admin: 09/19/18 11:44 Dose: 2.5 mg Morphine Sulfate (Morphine) 2 mg IVPUSH Q1H PRN PRN Reason: Anxiety Last Admin: 09/19/18 16:04 Dose: 2 mg Naloxone HCl (Narcan) 0.1 mg IV ASDIRECTED PRN PRN Reason: decreased respiratory rate Neostigmine Methylsulfate (Neostigmine) Confirm Administered Dose 5 mg .ROUTE .STK-MED ONE Stop: 09/03/18 14:41 Neostigmine Methylsulfate (Neostigmine) Confirm Administered Dose 5 mg .ROUTE .STK-MED ONE Stop: 09/04/18 09:47 Non-Formulary Medication (Total Parenteral Nutrition, Central) 0 ml IV ASDIRECTED [facility] Stop: 09/12/18 13:31 Non-Formulary Medication (Total Parenteral Nutrition, Central) 0 ml IV ASDIRECTED [facility] Stop: 09/13/18 13:00 Ondansetron HCl (Zofran Odt) 4 mg PO Q6H PRN PRN Reason: Nausea able to take PO Ondansetron HCl (Zofran) 4 mg IV Q6H PRN PRN Reason: Nausea/Vomiting Ondansetron HCl (Zofran) Confirm Administered Dose 4 mg .ROUTE .STK-MED ONE Stop: 09/03/18 14:41 Ondansetron HCl (Zofran) Confirm Administered Dose 4 mg .ROUTE .STK-MED ONE Stop: 09/04/18 09:47 Pantoprazole Sodium (Protonix Iv) 40 mg IV Q12H [facility] Last Admin: 09/03/18 16:07 Dose: 40 mg Pantoprazole Sodium (Protonix Iv) 40 mg IV Q24H [facility] Last Admin: 09/22/18 22:21 Dose: 40 mg Piperacillin Sod/Tazobactam Sod (Zosyn) 10.125 gm .XX ASDIRECTED [facility] Stop: 09/04/18 15:00 Last Admin: 09/04/18 14:04 Dose: 10.125 gm Potassium Chloride (Klor-Con M20) 40 meq PO ONETIME ONE Stop: 09/24/18 10:31 Last Admin: 09/24/18 10:36 Dose: 40 meq Potassium Chloride (Potassium Chloride Solution) 80 meq GTUBE ONETIME ONE Stop: 09/28/18 09:01 Last Admin: 09/28/18 08:19 Dose: 80 meq Propofol (Diprivan 20 Ml) Confirm Administered Dose 200 mg .ROUTE .STK-MED ONE Stop: 09/03/18 14:41 Propofol (Diprivan 20 Ml) Confirm Administered Dose 200 mg .ROUTE .STK-MED ONE Stop: 09/04/18 09:47 Propofol (Diprivan 20 Ml) Confirm Administered Dose 200 mg .ROUTE .STK-MED ONE Stop: 09/06/18 07:01 Propofol (Diprivan 20 Ml) Confirm Administered Dose 200 mg .ROUTE .STK-MED ONE Stop: 09/19/18 14:22 Rocuronium [place] (Zemuron) Confirm Administered Dose 50 mg .ROUTE .STK-MED ONE Stop: 09/03/18 14:41 Rocuronium [place] (Zemuron) Confirm Administered Dose 50 mg .ROUTE .STK-MED ONE Stop: 09/04/18 09:47 Rocuronium [place] (Zemuron) Confirm Administered Dose 50 mg .ROUTE .STK-MED ONE Stop: 09/20/18 07:50 Rocuronium [place] (Zemuron) Confirm Administered Dose 50 mg .ROUTE .STK-MED ONE Stop: 09/26/18 08:14 Succinylcholine Chloride (Quelicin) Confirm Administered Dose 200 mg .ROUTE .STK -MED ONE Stop: 09/03/18 14:41 Succinylcholine Chloride (Quelicin) Confirm Administered Dose 200 mg .ROUTE .STK -MED ONE Stop: 09/04/18 09:47 Succinylcholine Chloride (Quelicin) Confirm Administered Dose 200 mg .ROUTE .STK -MED ONE Stop: 09/06/18 07:01 - Exam Quality Assessment: Supplemental Oxygen General: Alert, Cooperative, No Acute Distress Neck: Other (trach site clean) Lungs: Clear to Auscultation, Normal Respiratory Effort Cardiovascular: Regular Rate, Regular Rhythm GI/Abdominal Exam: Soft, No Distention, Other (small brown stool in ostomy) Extremities: No Pedal Edema. No: Increased Warmth Skin: Warm, Dry, Rash (mild erythema in the groin ) Psy/Mental Status: Alert. No: Anxious - Problem List & Annotations (1) Diverticulitis of colon with perforation SNOMED Code(s): 54315699 Code(s): K57.20 - DVTRCLI OF LG INT W PERFORATION AND ABSCESS W/O BLEEDING Status: Acute Current Visit: Yes Qualifiers: Diverticulitis bleeding: without bleeding Qualified Code(s): K57.20 - Diverticulitis of large intestine with perforation and abscess without bleeding (2) Sepsis SNOMED Code(s): 08217348 Code(s): A41.9 - SEPSIS, UNSPECIFIED ORGANISM Status: Acute Current Visit : Yes Qualifiers: Sepsis type: sepsis due to unspecified organism Qualified Code(s): A41.9 - Sepsis, unspecified organism (3) Acute kidney injury SNOMED Code(s): 99695854, 38306771 Code(s): N17.9 - ACUTE KIDNEY FAILURE, UNSPECIFIED Status: Acute Current Visit: Yes (4) Leukopenia SNOMED Code(s): 79317370, 167609064 Code(s): D72.819 - DECREASED WHITE BLOOD CELL COUNT, UNSPECIFIED Status: Acute Current Visit: Yes Qualifiers: Leukopenia type: neutropenia Neutropenia type: other Qualified Code(s): D70.8 - Other neutropenia - Problem List Review Problem List Initiated/Reviewed/Updated: Yes - My Orders Last 24 Hours: My Active Orders 09/28/18 09:58 LORazepam [Ativan] 0.5 mg PO Q4H PRN - Plan Plan:: ASSESSMENT AND PLAN Acute respiratory failure with hypoxia and hypercapnia - she did not do with trach collar yesterday but did tolerate IMV. Rested well overnight. -Transition back to IMV today and continue as long as tolerated today before owing back to assist control overnight -Up to chair 4 times daily -Physical therapy twice daily -treat anxiety as indicated Perforated sigmoid colon with sepsis - Initial surgical resection on 09/03 and Second Look laparotomy on 09/04. Sepsis has resolved. Cultures grew out Klebsiella, Escherichia coli and anaerobic bacteria. stable from this standpoint and she has completed adequate anabiotic for this infection. PEG feeding tube placed 09/27 and she is tolerating tube feedings. -Continue tube feedings Hypertension - mild to moderate elevation of blood pressure with some normal readings. -Metoprolol 25 mg by mouth twice a day -Consider restarting her FERNANDA inhibitor if indicated -PRN meds if SBP >175 Anemia of critical illness - hemoglobin now stable with no evidence for bleeding. -Transfuse if less than 8 since she is currently hemodynamically stable and oxygenating well Acute kidney injury - renal function back to normal and stable. -Management as above -Repeat labs in the morning Mixed delirium - more alert and interactive off of sedation -Symptomatically management and treatment of the above conditions Maintenance issues - - DVT prophylaxis - mechanical - GI prophylaxis - PPI - Nutrition - TPN/tube feedings - Rubin catheter -removed 09/27 Disposition - I would anticipate discharge to an LTAC for ventilator weaning on September 29 Santana Cunningham M.D.
--- NOTE | 2018-09-28 10:44 | PN ---
DATE OF SERVICE: 09/26/2018 The patient has been afebrile with stable vital signs. She tolerated IMV of 8 for several hours yesterday and will restart the weaning after she wakes up. She did have a percutaneous gastrostomy tube placed today, and we will begin tube feedings at 20 mL an hour. I don't think we will try to advance from that, as she is not really putting much out of her colostomy and is fairly distended. We will add some erythromycin to the G-tube feedings to try to encourage some GI tract motility. Otherwise, we will back down the TPN rate to 40 mL an hour and continue care with the assistance of Dr. Vazquez. Christiano Estrada MD /[id number]
[2018-09-28] MEDS ORDERED: Furosemide 20 MG/2 ML VIAL IVPUSH ONE (17:00)
[2018-09-28] MEDS: Pantoprazole 40 MG Tab.CR PO SCH (21:33)
[2018-09-29] MEDS: HYDROmorphone 0.5 MG/0.5 ML Syringe IVPUSH PRN ×2 (00:54→04:04)
[2018-09-29] MEDS: Erythromycin Ethylsuccinate Susp 200 MG/5 ML 100 ML Bottle GTUBE SCH ×2 (04:05→11:20)
[2018-09-29] MEDS: Nystatin Topical Powder 15 GM Bottle TOP SCH ×2 (06:13→11:33)
[2018-09-29] MEDS: Albuterol/Ipratropium 3.0-0.5 MG/3 ML Neb Soln NEB SCH ×2 (07:16→10:56)
[2018-09-29] MEDS ORDERED: oxyCODONE 5 MG Tab PO PRN (08:38)
[2018-09-29] MEDS: Citalopram 20 MG Tab PO SCH (08:42)
[2018-09-29] MEDS: Metoprolol Tartrate 25 MG Tab PO SCH (08:42)
[2018-09-29] MEDS: Bisacodyl 10 MG Supp SCH (08:43)
--- NOTE | 2018-09-29 09:27 | PN ---
DATE OF SERVICE: 09/27/2018 The patient has been afebrile with stable vital signs and is much more alert. She is tolerating the tube feedings at 20 mL an hour rate but has only had a limited amount out of her colostomy. She does not appear to be uncomfortable from abdominal standpoint, and we are moving it up 35 mL an hour and continue the ventilator weaning. She had been up in the chair most of the day the last couple of days, and we will plan to transfer her to [facility] on Friday. Christiano Estrada MD /[id number]
--- NOTE | 2018-09-29 10:05 | PCM.DCSUM1 ---
Discharge Summary - Hospital Course Brief History: 78-year-old female with history of hypertension and tonsillar cancer who presented with acute abdominal pain. She was admitted for management of presumed perforated sigmoid diverticulitis with sepsis syndrome. Diagnosis: Stroke: No - Discharge Data Discharge Date: 09/29/18 Discharge Disposition: DC/Tfer to [place] [id number] Condition: Fair - Discharge Diagnosis/Problem(s) (1) Diverticulitis of colon with perforation SNOMED Code(s): 60009256 ICD Code: K57.20 - DVTRCLI OF LG INT W PERFORATION AND ABSCESS W/O BLEEDING Status: Acute Current Visit: Yes Qualifiers: Diverticulitis bleeding: without bleeding Qualified Code(s): K57.20 - Diverticulitis of large intestine with perforation and abscess without bleeding (2) Sepsis SNOMED Code(s): 77822188 ICD Code: A41.9 - SEPSIS, UNSPECIFIED ORGANISM Status: Acute Current Visit: Yes Qualifiers: Sepsis type: Escherichia coli Qualified Code(s): A41.51 - Sepsis due to Escherichia coli [E. coli] (3) Acute kidney injury SNOMED Code(s): 59436986, 71898076 ICD Code: N17.9 - ACUTE KIDNEY FAILURE, UNSPECIFIED Status: Acute Current Visit: Yes (4) Leukopenia SNOMED Code(s): 20795624, 290256461 ICD Code: D72.819 - DECREASED WHITE BLOOD CELL COUNT, UNSPECIFIED Status: Acute Current Visit: Yes Qualifiers: Leukopenia type: neutropenia Neutropenia type: other Qualified Code(s): D70.8 - Other neutropenia (5) Acute respiratory failure with hypoxia and hypercapnia SNOMED Code(s): 594146707 ICD Code: J96.01 - ACUTE RESPIRATORY FAILURE WITH HYPOXIA; J96.02 - ACUTE RESPIRATORY FAILURE WITH HYPERCAPNIA Status: Acute Current Visit: Yes (6) Hypokalemia SNOMED Code(s): 49659288 ICD Code: E87.6 - HYPOKALEMIA Status: Acute Current Visit: Yes (7) Anemia due to blood loss SNOMED Code(s): 972024655 ICD Code: D50.0 - IRON DEFICIENCY ANEMIA SECONDARY TO BLOOD LOSS (CHRONIC) Status: Acute Current Visit: Yes (8) Yeast dermatitis SNOMED Code(s): 92948373 ICD Code: B37.2 - CANDIDIASIS OF SKIN AND NAIL Status: Acute Current Visit: Yes (9) Status post tracheostomy SNOMED Code(s): 982781866, 599763651 ICD Code: Z93.0 - TRACHEOSTOMY STATUS Status: Acute Current Visit: Yes (10) S/P percutaneous endoscopic gastrostomy (PEG) tube placement SNOMED Code(s): 236950766 ICD Code: Z93.1 - GASTROSTOMY STATUS Status: Acute Current Visit: Yes (11) Status post colostomy SNOMED Code(s): 573816473, 836038063, 903558528 ICD Code: Z93.3 - COLOSTOMY STATUS Status: Acute Current Visit: Yes (12) Status post small bowel resection SNOMED Code(s): 405223570545513, 144539189, 109589143381516 ICD Code: Z90.49 - ACQUIRED ABSENCE OF OTHER SPECIFIED PARTS OF DIGESTIVE TRACT Status: Acute Current Visit: Yes (13) Status post colon resection SNOMED Code(s): 866561490, 02256390, 89274988, 893001763 ICD Code: Z90.49 - ACQUIRED ABSENCE OF OTHER SPECIFIED PARTS OF DIGESTIVE TRACT Status: Acute Current Visit: Yes Problem Details: With Omentectomy - Patient Summary/Data Operative Procedure(s) Performed: 09/03 - exploratory laparotomy with sigmoid resection, end colostomy and Rosa pouch formation. There was drainage of a pericolonic abscess and diffuse peritoneal washout as well as a partial small bowel resection. 09/04 - Second Look exploratory laparotomy with drainage of several pockets of inflammatory fluid and a central line placement. / - delayed primary closure. 09/12 - flexible bronchoscopy with mucous plug removal. 09/13 - second bronchoscopy with additional mucous plug removal. 09/14 - third bronchoscopy with additional mucous plug removal. 09/20 - tracheostomy placement. 09/26 - placement of PEG tube for tube feeding Consults: Consultations 09/03/18 14:37 Consult to Physician [CONS] Routine Consulting Provider: Christiano Estrada Courtesy Call Completed to Consulting Physician: Yes Reason for Consult: ruptured viscus Person Notified: MOULTON Date Notified: 09/03/18 Special Instructions: surgery this afternoon 09/03/18 22:19 Respiratory Care Assess and Treatment [CONS] Routine Comment: Physician Instructions: Post -Op Pneumonia Prevention 09/03/18 22:27 Respiratory Care Assess and Treatment [CONS] Routine Comment: Physician Instructions: Post -Op Pneumonia Prevention 09/07/18 06:43 Consult to Physician [CONS] Routine Consulting Provider: Haile Vazquez Call Completed to Consulting Physician: Gloria 09/21/18 11:00 Consult to Physical Therapy [PT Evaluation and Treatment] [CONS] Routine Please Evaluate and Treat. PT Reason for Consult: Strengthening This query below is only for informational purposes and is not editable. Admission Diagnosis/Problem: Perforation of intestine 09/28/18 10:04 OT Evaluation and Treatment [CONS] Routine Please Evaluate and Treat. OT Reason for Consult: Splinting Special Instructions: left wrist This query below is only for informational purposes and is not editable. Admission Diagnosis/Problem: Perforation of intestine Hospital Course: Tina Presented to the emergency room on 09/03 with 36 hours of abdominal pain. Workup in the emergency room was suggestive of sepsis with tachycardia, hypotension and elevated lactic acid. White blood cell count was mildly decreased. Creatinine was elevated at 1.7 with a GFR of 30. The CT scan of the abdomen and pelvis was suggestive of perforated sigmoid diverticulitis with stranding around the sigmoid colon and several small pockets of free air inside the abdomen. She received aggressive IV fluids as well as broad-spectrum antibiotics (Pip/Tazo) and was admitted to the intensive care unit. Lactic acid level trended down initially while we are waiting for the surgical suite to be open. Later in the afternoon after admission she went to the operating room with Dr. Estrada and had an exploratory laparotomy with sigmoid and partial small bowel resection. A colostomy was formed as well as a Rosa pouch. A pericolonic abscess was drained at that time as well. She was left intubated and returned to the intensive care unit. She continued to receive broad- spectrum antibiotics. With additional fluids her lactic acid level continued to decrease and it normalized by the morning after admission. On 09/04 she went back to the operating room with Dr. Estrada for a second look laparotomy. Several pockets of inflammatory fluid were drained and she had a second large volume peritoneal lavage. A central line was placed during that trip to the operating room as well. She returned to the operating room intubated and remained so overnight. She did receive 1 unit of packed red blood cells after the second surgery. Antibiotics were broadened at this point to meropenem, aztreonam and vancomycin. Blood and wound Cultures were showing gram-negative rods and gram- positive cocci. Overnight there were some difficulty with low urine output and low blood pressures and she received several fluid challenges. On 09/05 she was extubated with a favorable weaning parameters. Her sepsis had improved dramatically by this point and her kidney function was starting to improve. Cultures returned on this day with pansensitive Klebsiella and Escherichia coli as well as an anaerobic gram-positive cocci. On 09/06 the patient had difficulty with increased tachycardia and agitation. Blood gases were obtained and showed respiratory acidosis with CO2 retention. She was reintubated. At this point she had a very elevated BNP of more than 30, 000 but examination and bedside ultrasound both suggested intravascular volume depletion. TPN was started for nutritional support. On 09/07 she had a formal echocardiogram which showed a normal ejection fraction and mild LVH but no significant valvular abnormalities or a good reason to explain her very elevated BNP. On 09/08 the patient had increased tachycardia and labile blood pressures. This prompted a CT scan of the abdomen and pelvis with concern may be an infection. Fortunately there is no evidence for abscess or abnormality in the abdomen. We did note bilateral lower lobe infiltrates that were concerning for a developing pneumonia. She was started on gentamicin and azithromycin in addition to the meropenem and vancomycin. Chest x-ray on 09/09 was concerning for ARDS with diffuse bilateral infiltrates. She did have increasing respiratory distress as well as increasing FiO2 needs. On 09/10 she went to the operating room for a delayed primary closure. With ventilator adjustments in the change in antibiotics respiratory status did seem to be slowly improving. There were ongoing improvements and 09/11. On 09/12 she had increasing secretions again and was taken to the operating room for a flexible bronchoscopy. This revealed multiple areas of mucous plugging. These were suctioned and the affected areas that could be reached were irrigated and again suctioned. On 09/13 she had a second bronchoscopy with additional mucous plug removal. The chest x-ray showed some improvements in her infiltrates at this point. She did receive a unit of packed red blood cells on this day as well. On 09/14 she had a third bronchoscopy which did not show much in the way of mucous plugging with only minimal abnormalities noted. Aggressive diuresis was started on this day. The culture from the first bronchoscopy returned with small quantities of a germ tube negative yeast. Fluconazole was initiated though it was suspected that this was a contaminant with recent antibiotics. Most of her antibiotics were discontinued at this point other than the fluconazole. From 09/14 through 09/17 aggressive diuresis was undertaken. Daily weaning trials were undertaken but patient quickly failed them with tachycardia and tachypnea as well as agitation. On 09/17 we had a better day with weaning trials and she tolerated SIMV for a good portion of the day. On 09/18 she had another day with excellent diuresis as well as excellent weaning parameters. Weaning parameters were favorable and she was successfully extubated. She did well with nasal cannula for most of the day but started to [place] towards the end of the day. She was placed on noninvasive positive pressure ventilation that evening. She rested well for part of the night but by the morning of 09/19 she had increased respiratory rate and tachycardia. Unfortunately she was very weak and I believe this was the reason she failed extubation. She was reintubated on 09/19. Diuresis continued at this point. On 09/20 she was taken to the operating room for a tracheostomy placement. For the next 4 days gentle diuresis was continued with ongoing slow respiratory improvement. Peripheral 2 was weaned down and PEEP was able to be decreased to 5. Fluconazole was discontinued on 09/25 after completing adequate treatment. A PEG tube was placed on 09/26 for enteral feedings. She has tolerated tube feeds well with no difficulties. There have been no large volume residuals. We have been making slow progress with vent weaning using SIMV. We did try trach collar one morning which did not go very well and was terminated after she developed tachypnea and tachycardia. This point I believe she is safe for transfer to a long-term acute care facility for additional ventilator weaning. She is off all of her antibiotics and fluconazole. She has been tolerating her tube feedings. She has a PICC line in the right upper arm. She has a colostomy in the left lower quadrant. She has a PEG tube in the left upper quadrant. Tracheostomy is in place. At this time the benefits of transfer outweigh the risks. The patient is stable for transfer but will need [facility] ambulance for mechanical ventilation. - Patient Instructions Diet: Full Liquid Diet Activity: As Tolerated Showering/Bathing: May Shower Wound/Incision Care: Keep Operative Site/Wound Site Clean and Dry, Change Dressing Daily (PEG site) Other/Special Instructions: 1. Tube feeding Osmolite 1.2 lissette, continuous feedings at 55 ml/hr with 100 ml free water flushes every 4 hours. 2. Picc line cares - right upper arm. 3. Colostomy cares. 4. Tracheostomy cares. 5. Mechanical ventilation via trach. We have been using AC at night with. RR 16, TV 450 PEEP +5 and 35% FiO2. During the day we have been using SIMV with rate of 10, TV 450 and PS of 10. 6. PT and OT. 7. FULL CODE. 8. Full liquid diet - Discharge Plan *PRESCRIPTION DRUG MONITORING PROGRAM REVIEWED*: No *COPY OF PRESCRIPTION DRUG MONITORING REPORT IN PATIENT ESTIVEN: No Home Medications: Home Meds Alendronate Sodium 70 mg PO DAILY 09/03/18 [History] Benazepril [Lotensin] 40 mg PO ASDIRECTED 09/03/18 [History] Citalopram [Citalopram HBr] 20 mg PO DAILY 09/03/18 [History] Metoprolol Tartrate 25 mg PO BID 09/03/18 [History] Oxygen Therapy Mode: Mechanical Ventilation Referrals: PCP,None [Primary Care Provider] - - Discharge Summary/Plan Comment DC Time >30 min.: Yes (90 - P2P call, transfer to LTAC, document long hospital stay ) - Patient Data Vitals - Most Recent: Last Vital Signs Temp 36.0 C 09/29/18 04:00 Pulse 95 09/29/18 08:42 Resp 15 09/29/18 08:00 BP 145/60 H 09/29/18 08:42 Pulse Ox 98 09/29/18 08:00 Weight - Most Recent: 65.998 kg I&O - Last 24 hours: Intake & Output 09/28/18 09/29/18 09/29/18 22:59 06:59 14:59 Intake Total 1020 1776 Output Total 1 Balance 1020 1775 Lab Results - Last 24 hrs: Laboratory Results - last 24 hr 09/29/18 09/29/18 09/29/18 Range/Units 05:00 05:00 05:00 WBC 10.1 (4.5-11.0) K/uL RBC 3.08 L (3.30-5.50) M/uL Hgb 9.7 L (12.0-15.0) g/dL Hct 30.5 L (36.0-48.0) % MCV 99 H (80-98) fL MCH 32 H (27-31) pg MCHC 32 (32-36) % Plt Count 257 (150-400) K/uL Puncture Site R brachial ABG pH 7.472 H (7.350-7.450) ABG pCO2 41.9 (35.0-42.0) mmHg ABG pO2 82.0 (75.0-100.0) mmHg ABG HCO3 30.3 H (22.0-26.0) mmol/L ABG Total CO2 27.8 H (21.0-25.0) mmol/L ABG O2 Saturation 96.1 (95.0-98.0) % ABG O2 Content 13.3 L (15.0-23.0) %vol ABG Base Excess 6.4 mm/L ABG Hemoglobin 9.9 L (12.0-16.0) g/dL ABG Oxyhemoglobin 94.8 % ABG Carboxyhemoglobin 0.7 (0.0-1.6) % ABG Methemoglobin 0.7 % O2 Delivery Device Ventilator Oxygen Flow Rate L Sodium 142 (140-148) mmol/L Potassium 4.0 (3.6-5.2) mmol/L Chloride 108 (100-108) mmol/L Carbon Dioxide 29 (21-32) mmol/L Anion Gap 5.5 (5.0-14.0) mmol/L BUN 42 H (7-18) mg/dL Creatinine 1.1 H (0.6-1.0) mg/dL Est Cr Clr Drug Dosing 31.92 mL/min Estimated GFR (MDRD) 48 L (>60) Glucose 117 H (74-106) mg/dL Calcium 7.7 L D (8.5-10.1) mg/dL Phosphorus 4.0 (2.5-4.9) mg/dL Magnesium 1.8 (1.8-2.4) mg/dL Total Bilirubin 0.7 (0.2-1.0) mg/dL AST 157 H (15-37) U/L ALT 290 H (12-78) U/L Alkaline Phosphatase 302 H (46-116) U/L NT-Pro-B Natriuret Pep 8119 H (5-450) pg/mL Total Protein 6.5 (6.4-8.2) g/dL Albumin 2.0 L (3.4-5.0) g/dL Globulin 4.5 H (2.3-3.5) g/dL Albumin/Globulin Ratio 0.4 L (1.2-2.2) DERECK Results - Last 24 hrs: Microbiology 09/14/18 08:06 Fungal Culture - Preliminary Transbronchial Aspirate YEAST 09/12/18 12:57 Fungal Culture - Preliminary Bronchial Aspirate - Mixed YEAST Med Orders - Current: Current Medications Albuterol (Proventil Neb Soln) 2.5 mg NEB Q4H PRN PRN Reason: Dyspnea Albuterol/Ipratropium (Duoneb 3.0-0.5 Mg/3 Ml) 3 ml NEB QIDRT [facility] Last Admin: 09/29/18 07:16 Dose: 3 ml Bisacodyl (Dulcolax) 10 mg .XX BID [facility] Last Admin: 09/29/18 08:43 Dose: Not Given Citalopram Hydrobromide (Celexa) 20 mg PO DAILY [facility] Last Admin: 09/29/18 08:42 Dose: 20 mg Dimethicone/Zinc Oxide (Rash Relief-Zinc Oxide Dilliner) 0 gm TOP ASDIRECTED PRN PRN Reason: Inflammation Last Admin: 09/21/18 15:28 Dose: 2 spray Erythromycin Ethylsuccinate (Eryped 200) 125 mg GTUBE Q6H [facility] Last Admin: 09/29/18 04:05 Dose: 125 mg Hydroxyzine HCl (Vistaril) 50 mg IM Q4H PRN PRN Reason: Pain Lactated Ringer's (Ringers, Lactated) 1,000 mls @ 25 mls/hr IV ASDIRECTED [facility] Last Admin: 09/18/18 21:11 Dose: 25 mls/hr Dextrose/Lactated Ringer's (Dextrose 5%-Lactated Ringers) 1,000 mls @ 25 mls/ hr IV ASDIRECTED [facility] Last Admin: 09/27/18 05:50 Dose: 25 mls/hr Loperamide HCl (Imodium) 2 mg PO ASDIRECTED PRN PRN Reason: LOOSE STOOLS Lorazepam (Ativan) 0.5 mg PO Q4H PRN PRN Reason: Anxiety Last Admin: 09/28/18 20:25 Dose: 0.5 mg Metoprolol Tartrate (Lopressor) 25 mg PO Q12H [facility] Last Admin: 09/29/18 08:42 Dose: 25 mg Nystatin (Nystop) 0 gm TOP QID [facility] Last Admin: 09/29/18 06:13 Dose: 1 applic Oxycodone HCl (Oxycodone) 5 mg PO Q4H PRN PRN Reason: Pain (moderate 4-6) Pantoprazole Sodium (Protonix) 40 mg PO BEDTIME [facility] Last Admin: 09/28/18 21:33 Dose: 40 mg Discontinued Medications Acetaminophen (Tylenol) 650 mg PO Q4H PRN PRN Reason: Pain (Mild 1-3)/fever Acetaminophen (Tylenol) 650 mg RECTAL Q4H PRN PRN Reason: Mild pain/fever Acetylcysteine (Mucomyst 20%) 200 mg NEB QIDRT [facility] Last Admin: 09/20/18 07:00 Dose: 200 mg Albuterol (Proventil Neb Soln) 2.5 mg NEB Q4H PRN PRN Reason: Shortness Of Breath/wheezing Albuterol/Ipratropium (Duoneb 3.0-0.5 Mg/3 Ml) 3 ml INH PREPRO ONE Stop: 09/03/18 17:01 Last Admin: 09/03/18 16:25 Dose: 3 ml Albuterol/Ipratropium (Duoneb 3.0-0.5 Mg/3 Ml) 3 ml NEB QID [facility] Last Admin: 09/13/18 21:11 Dose: 3 ml Aztreonam (Azactam) Confirm Administered Dose 1 gm .ROUTE .STK-MED ONE Stop: 09/03/18 21:44 Last Admin: 09/03/18 22:15 Dose: Not Given Benazepril HCl (Lotensin) 40 mg PO ONETIME ONE Stop: 09/03/18 10:41 Last Admin: 09/03/18 11:00 Dose: 40 mg Benazepril HCl (Lotensin) 40 mg NGTUBE DAILY [facility] Last Admin: 09/20/18 09:55 Dose: Not Given Bupivacaine HCl (Marcaine 0.5%) Confirm Administered Dose 50 ml .ROUTE .STK-MED ONE Stop: 09/07/18 06:48 Last Admin: 09/07/18 10:53 Dose: 18 ml Bupivacaine HCl (Marcaine 0.5%) Confirm Administered Dose 50 ml .ROUTE .STK-MED ONE Stop: 09/11/18 09:07 Last Admin: 09/11/18 10:49 Dose: 2 ml Ropivacaine 22 ml/Dexamethasone 8 mg/Epinephrine HCl 0.4 mg/ Sodium Chloride 55.6 ml 0 ml NERVRT ASDIRECTED NAHED Ropivacaine 22 ml/Dexamethasone 8 mg/Epinephrine HCl 0.4 mg/ Sodium Chloride 55.6 ml 0 ml NERVRT ASDIRECTED NAHED Last Admin: 09/04/18 14:03 Dose: 80 syringe Ropivacaine 22 ml/Dexamethasone 8 mg/Epinephrine HCl 0.4 mg/ Sodium Chloride 55.6 ml 0 ml NERVRT ASDIRECTED NAHED Last Admin: 09/07/18 11:07 Dose: 80 syringe Dexamethasone (Dexamethasone) Confirm Administered Dose 4 mg .ROUTE .STK-MED ONE Stop: 09/03/18 14:41 Dexamethasone (Dexamethasone) Confirm Administered Dose 4 mg .ROUTE .STK-MED ONE Stop: 09/04/18 09:47 Fentanyl (Sublimaze) 25 mcg IVPUSH ONETIME ONE Stop: 09/03/18 13:57 Last Admin: 09/03/18 14:16 Dose: 25 mcg Fentanyl (Sublimaze) 25 mcg IVPUSH Q2H PRN PRN Reason: Pain (severe 7-10) Fentanyl (Sublimaze) Confirm Administered Dose 250 mcg .ROUTE .STK-MED ONE Stop: 09/03/18 14:41 Fentanyl (Sublimaze) Confirm Administered Dose 250 mcg .ROUTE .STK-MED ONE Stop: 09/04/18 09:46 Fentanyl (Sublimaze) Confirm Administered Dose 250 mcg .ROUTE .STK-MED ONE Stop: 09/04/18 13:57 Fentanyl (Sublimaze) Confirm Administered Dose 100 mcg .ROUTE .STK-MED ONE Stop: 09/11/18 10:36 Fentanyl (Sublimaze) Confirm Administered Dose 250 mcg .ROUTE .STK-MED ONE Stop: 09/20/18 07:50 Furosemide (Lasix) 20 mg IVPUSH ONETIME ONE Stop: 09/04/18 15:10 Last Admin: 09/04/18 15:18 Dose: 20 mg Furosemide (Lasix) 40 mg IV ONETIME ONE Stop: 09/06/18 08:16 Last Admin: 09/06/18 08:26 Dose: 40 mg Furosemide (Lasix) 20 mg IV Q12H NAHED Stop: 09/07/18 20:01 Last Admin: 09/07/18 20:10 Dose: 20 mg Furosemide (Lasix) 20 mg IVPUSH Q12H [facility] Stop: 09/08/18 19:01 Last Admin: 09/08/18 19:50 Dose: 20 mg Furosemide (Lasix) 20 mg IVPUSH ONETIME ONE Stop: 09/09/18 07:01 Last Admin: 09/09/18 08:14 Dose: 20 mg Furosemide (Lasix) 20 mg IVPUSH ONETIME ONE Stop: 09/09/18 11:01 Last Admin: 09/09/18 12:38 Dose: 20 mg Furosemide (Lasix) 20 mg IVPUSH ONETIME ONE Stop: 09/09/18 20:01 Furosemide (Lasix) 20 mg IV Q8H [facility] Stop: 09/11/18 00:31 Last Admin: 09/10/18 23:50 Dose: 20 mg Furosemide (Lasix) 20 mg IV Q8H [facility] Stop: 09/12/18 00:01 Last Admin: 09/11/18 23:34 Dose: 20 mg Furosemide (Lasix) 20 mg IVPUSH Q8H [facility] Stop: 09/13/18 02:31 Last Admin: 09/13/18 02:39 Dose: 20 mg Furosemide (Lasix) 20 mg IVPUSH Q8H [facility] Stop: 09/14/18 02:31 Last Admin: 09/14/18 02:29 Dose: 20 mg Furosemide (Lasix) 40 mg IVPUSH ONETIME ONE Stop: 09/14/18 10:01 Last Admin: 09/14/18 13:28 Dose: 40 mg Furosemide (Lasix) 20 mg IVPUSH BID [facility] Furosemide (Lasix) 20 mg IVPUSH ONETIME ONE Stop: 09/15/18 06:34 Last Admin: 09/15/18 06:48 Dose: 20 mg Furosemide (Lasix) 40 mg IVPUSH Q8H [facility] Stop: 09/15/18 20:31 Last Admin: 09/15/18 20:39 Dose: 40 mg Furosemide (Lasix) 40 mg IV BID [facility] Stop: 09/16/18 21:01 Last Admin: 09/16/18 21:19 Dose: 40 mg Furosemide (Lasix) 40 mg IV Q12H [facility] Stop: 09/17/18 21:01 Last Admin: 09/17/18 21:11 Dose: 40 mg Furosemide (Lasix) 40 mg IV Q8H [facility] Stop: 09/18/18 16:01 Last Admin: 09/18/18 16:00 Dose: 40 mg Furosemide (Lasix) 40 mg IV Q12H NAHED Stop: 09/19/18 20:01 Last Admin: 09/19/18 19:23 Dose: 40 mg Furosemide (Lasix) 20 mg IVPUSH Q12H NAHED Stop: 09/20/18 22:01 Last Admin: 09/20/18 21:52 Dose: 20 mg Furosemide (Lasix) 20 mg IVPUSH Q8H [facility] Stop: 09/21/18 20:01 Last Admin: 09/21/18 19:37 Dose: 20 mg Furosemide (Lasix) 20 mg IVPUSH Q6H [facility] Stop: 09/22/18 14:01 Last Admin: 09/22/18 13:54 Dose: 20 mg Furosemide (Lasix) Confirm Administered Dose 40 mg .R[address]TE .[facility] ONE Stop: 09/23/18 06:19 Last Admin: 09/23/18 07:04 Dose: Not Given Furosemide (Lasix) 40 mg IVPUSH ONETIME ONE Stop: 09/23/18 06:21 Last Admin: 09/23/18 06:15 Dose: 40 mg Furosemide (Lasix) 40 mg IV ONETIME ONE Stop: 09/23/18 14:31 Last Admin: 09/23/18 14:05 Dose: 40 mg Furosemide (Lasix) 40 mg IVPUSH NOW ONE Stop: 09/23/18 18:01 Last Admin: 09/23/18 17:12 Dose: 40 mg Furosemide (Lasix) 40 mg IV NOW ONE Stop: 09/24/18 08:01 Last Admin: 09/24/18 07:57 Dose: 40 mg Furosemide (Lasix) 40 mg IV ONETIME ONE Stop: 09/24/18 16:01 Last Admin: 09/24/18 15:49 Dose: 40 mg Furosemide (Lasix) 40 mg IV Q12H [facility] Stop: 09/25/18 20:01 Last Admin: 09/25/18 20:09 Dose: 40 mg Furosemide (Lasix) 40 mg IVPUSH NOW ONE Stop: 09/26/18 09:51 Last Admin: 09/26/18 09:52 Dose: 40 mg Furosemide (Lasix) 40 mg IVPUSH ONETIME ONE Stop: 09/27/18 11:31 Last Admin: 09/27/18 11:53 Dose: 40 mg Furosemide (Lasix) 40 mg IV ONETIME ONE Stop: 09/28/18 09:01 Last Admin: 09/28/18 08:19 Dose: 40 mg Furosemide (Lasix) 20 mg IVPUSH ONETIME ONE Stop: 09/28/18 17:01 Gentamicin Sulfate (Gentamicin) 1 mg IV .Pharmacy to Dose NAHED Stop: 09/08/18 14:31 Glycopyrrolate (Robinul) Confirm Administered Dose 1 mg .ROUTE .STK-MED ONE Stop: 09/03/18 14:41 Glycopyrrolate (Robinul) Confirm Administered Dose 1 mg .ROUTE .STK-MED ONE Stop: 09/04/18 09:47 Heparin Sodium (Porcine) (Heparin Sodium) Confirm Administered Dose 5,000 units .ROUTE .STK-MED ONE Stop: 09/03/18 18:32 Heparin Sodium (Porcine) (Heparin Lock Flush 100 Units/Ml) Confirm Administered Dose 500 units .ROUTE .STK-MED ONE Stop: 09/04/18 13:14 Heparin Sodium (Porcine) (Heparin Lock Flush 100 Units/Ml) Confirm Administered Dose 1,000 units .ROUTE .STK-MED ONE Stop: 09/11/18 09:07 Last Admin: 09/11/18 10:58 Dose: 1,000 units Heparin Sodium (Porcine) (Heparin Lock Flush 100 Units/Ml) Confirm Administered Dose 500 units .ROUTE .STK-MED ONE Stop: 09/11/18 10:44 Last Admin: 09/11/18 10:58 Dose: 500 units Hydralazine HCl (Apresoline) 5 mg IVPUSH Q4H PRN PRN Reason: Hypertension Last Admin: 09/19/18 13:41 Dose: 5 mg Hydromorphone HCl (Dilaudid) 0.5 mg IVPUSH ONETIME ONE Stop: 09/03/18 10:48 Last Admin: 09/03/18 11:00 Dose: 0.5 mg Hydromorphone HCl (Dilaudid) 0.5 mg IVPUSH ONETIME ONE Stop: 09/03/18 11:22 Last Admin: 09/03/18 11:25 Dose: 0.5 mg Hydromorphone HCl (Dilaudid) 0.5 mg IVPUSH ONETIME ONE Stop: 09/03/18 12:10 Last Admin: 09/03/18 12:12 Dose: 0.5 mg Hydromorphone HCl (Dilaudid) 0.5 mg IVPUSH ONETIME ONE Stop: 09/03/18 12:40 Last Admin: 09/03/18 12:44 Dose: 0.5 mg Hydromorphone HCl (Dilaudid) 1 mg IVPUSH ONETIME ONE Stop: 09/03/18 12:57 Last Admin: 09/03/18 13:00 Dose: 1 mg Hydromorphone HCl (Dilaudid Hospice Educator 15 Mg In Ns 30 Ml) 0 mg IV ASDIRECTED PRN; Protocol PRN Reason: [employer] 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 Last Admin: 09/09/18 05:52 Dose: 15 mg Hydromorphone HCl (Dilaudid) 0.5 mg IVPUSH Q2H PRN PRN Reason: Pain Last Admin: 09/29/18 04:04 Dose: 0.5 mg Sodium Chloride (Normal Saline) 1,000 mls @ 1,000 mls/hr IV .BOLUS ONE Stop: 09/03/18 12:17 Last Admin: 09/03/18 11:25 Dose: 1,000 mls/hr Piperacillin/Tazobactam/ (Dextrose 4.5 gm/ Premix) 100 mls @ 200 mls/hr IV ONETIME ONE Stop: 09/03/18 13:29 Last Admin: 09/03/18 13:04 Dose: 200 mls/hr Sodium Chloride (Normal Saline) 1,000 mls @ 500 mls/hr IV ASDIRECTED [facility] Last Admin: 09/03/18 13:00 Dose: 500 mls/hr Lactated Ringer's (Ringers, Lactated) 1,000 mls @ 125 mls/hr IV ASDIRECTED [facility] Last Admin: 09/03/18 16:07 Dose: 125 mls/hr Aztreonam 2 gm/ Sodium (Chloride) 100 mls @ 200 mls/hr IV NOW ONE Stop: 09/03/18 15:29 Last Admin: 09/03/18 14:56 Dose: 200 mls/hr Meropenem 500 mg/ Sodium (Chloride) 50 mls @ 100 mls/hr IV ONCALL ONE Stop: 09/03/18 17:29 Last Admin: 09/03/18 16:25 Dose: 100 mls/hr Piperacillin/Tazobactam/ (Dextrose 3.375 gm/ Premix) 50 mls @ 100 mls/hr IV Q6H [facility] Last Admin: 09/03/18 22:15 Dose: Not Given Sodium Chloride (Normal Saline) Confirm Administered Dose 500 mls @ as directed .ROUTE .STK-MED ONE Stop: 09/03/18 18:33 Aztreonam/Dextrose 1 gm/ (Premix) 50 mls @ 100 mls/hr IV Q8HR NAHED Meropenem 500 mg/ Sodium (Chloride) 50 mls @ 100 mls/hr IV Q8H [facility] Last Admin: 09/10/18 05:17 Dose: 100 mls/hr Sodium Chloride (Normal Saline) Confirm Administered Dose 50 mls @ as directed .ROUTE .STK-MED ONE Stop: 09/03/18 22:01 Last Admin: 09/03/18 22:21 Dose: Not Given Aztreonam/Dextrose 1 gm/ (Premix) 50 mls @ 100 mls/hr IV Q8H [facility] Last Admin: 09/04/18 07:30 Dose: Not Given Dextrose/Lactated Ringer's (Dextrose 5%-Lactated Ringers) 1,000 mls @ 100 mls/ hr IV ASDIRECTED PRN PRN Reason: Hypotension Dextrose/Lactated Ringer's (Dextrose 5%-Lactated Ringers) 1,000 mls @ 100 mls/ hr IV ASDIRECTED NAHED Last Admin: 09/05/18 02:13 Dose: 100 mls/hr Lactated Ringer's (Ringers, Lactated) 1,000 mls @ 100 mls/hr IV ASDIRECTED NAHED Last Admin: 09/04/18 04:20 Dose: 100 mls/hr Lactated Ringer's (Ringers, Lactated) 500 mls @ 500 mls/hr IV .BOLUS NAHED Last Admin: 09/04/18 01:10 Dose: 500 mls/hr Lactated Ringer's (Ringers, Lactated) 500 mls @ 500 mls/hr IV .BOLUS NAHED Last Admin: 09/04/18 03:13 Dose: 500 mls/hr Propofol (Diprivan 100 Ml) 100 mls @ 1.361 mls/hr IV TITRATE NAHED; Protocol Last Titration: 09/04/18 07:52 Dose: 14 mcg/kg/min, 3.81 mls/hr Propofol (Diprivan 100 Ml) Confirm Administered Dose 100 mls @ as directed .ROUTE .[facility] ONE Stop: 09/04/18 03:45 Last Admin: 09/04/18 03:59 Dose: Not Given Lactated Ringer's (Ringers, Lactated) 500 mls @ 999 mls/hr IV .BOLUS NAHED Last Admin: 09/04/18 06:10 Dose: 999 mls/hr Aztreonam/Dextrose 1 gm/ (Premix) 50 mls @ 100 mls/hr IV Q8H NAHED Last Admin: 09/07/18 08:15 Dose: 100 mls/hr Lactated Ringer's (Ringers, Lactated) 500 mls @ 500 mls/hr IV ASDIRECTED [facility] Last Admin: 09/04/18 21:04 Dose: 500 mls/hr Lactated Ringer's (Ringers, Lactated) Confirm Administered Dose 1,000 mls @ as directed .ROUTE .[facility] ONE Stop: 09/04/18 13:11 Lactated Ringer's (Ringers, Lactated) Confirm Administered Dose 1,000 mls @ as directed .ROUTE .[facility] ONE Stop: 09/04/18 13:11 Sodium Chloride (Normal Saline) Confirm Administered Dose 10 mls @ as directed .ROUTE .[facility] ONE Stop: 09/04/18 13:15 Magnesium Sulfate 2 gm/ Premix 50 mls @ 25 mls/hr IV Q6H NAHED Stop: 09/06/18 11:59 Last Admin: 09/06/18 10:17 Dose: 25 mls/hr Lactated Ringer's (Ringers, Lactated) 500 mls @ 500 mls/hr IV ASDIRECTED [facility] Stop: 09/04/18 17:46 Heparin Sodium (Porcine) 5,000 (units/ Sodium Chloride) 501 mls @ 5 mls/hr IV ASDIRECTED [facility] Last Admin: 09/22/18 12:58 Dose: 5 mls/hr Lactated Ringer's (Ringers, Lactated) 500 mls @ 500 mls/hr IV ONETIME ONE Stop: 09/04/18 19:29 Last Admin: 09/04/18 18:37 Dose: 500 mls/hr Lactated Ringer's (Ringers, Lactated) 500 mls @ 1,000 mls/hr IV ONETIME ONE Stop: 09/04/18 23:30 Last Admin: 09/04/18 23:18 Dose: 1,000 mls/hr Lactated Ringer's (Ringers, Lactated) 500 mls @ 1,000 mls/hr IV ONETIME ONE Stop: 09/05/18 01:44 Last Admin: 09/05/18 01:15 Dose: 1,000 mls/hr Lactated Ringer's (Ringers, Lactated) 1,000 mls @ 150 mls/hr IV ASDIRECTED [facility] Last Admin: 09/05/18 02:13 Dose: 150 mls/hr Lactated Ringer's (Ringers, Lactated) 500 mls @ 1,000 mls/hr IV ONETIME ONE Stop: 09/05/18 03:38 Last Admin: 09/05/18 03:15 Dose: 1,000 mls/hr Multivitamins/Minerals 10 ml/Chromium/Copper/Manganese/Seleni/Zn 1 ml/ Amino Ac/ Electrol/Dextrose/Calcium 2,011 mls @ 82 mls/hr IV .BY DURATION [facility] Stop: 09/05/18 13:25 Last Admin: 09/05/18 13:32 Dose: Not Given Amino Ac/Electrol/Dextrose/Calcium (Clinimix E 09/23) 2,000 mls @ 82 mls/hr IV .BY DURATION [facility] Stop: 09/05/18 13:25 Vancomycin HCl 1 gm/ Sodium (Chloride) 250 mls @ 167 mls/hr IV Q24H [facility] Last Admin: 09/05/18 12:34 Dose: 167 mls/hr Sodium Chloride (Normal Saline) 1,000 mls @ 50 mls/hr IV ASDIRECTED [facility] Last Admin: 09/05/18 12:51 Dose: 50 mls/hr Multivitamins/Minerals 10 ml/Chromium/Copper/Manganese/Seleni/Zn 1 ml/ Amino Ac/ Electrol/Dextrose/Calcium 2,011 mls @ 82 mls/hr IV .BY DURATION [facility] Stop: 09/08/18 13:20 Last Admin: 09/07/18 15:09 Dose: 82 mls/hr Amino Ac/Electrol/Dextrose/Calcium (Clinimix E 09/23) 2,000 mls @ 82 mls/hr IV .BY DURATION NAHED Stop: 09/08/18 13:20 Vancomycin HCl 1 gm/ Sodium (Chloride) 250 mls @ 167 mls/hr IV Q24H NAHED Last Admin: 09/06/18 12:00 Dose: 167 mls/hr Sodium Chloride (Normal Saline) 500 mls @ 500 mls/hr IV ASDIRECTED ONE Stop: 09/05/18 16:29 Last Admin: 09/05/18 15:40 Dose: 500 mls/hr Sodium Chloride (Normal Saline) 1,000 mls @ 100 mls/hr IV ASDIRECTED NAHED Last Admin: 09/07/18 07:31 Dose: 100 mls/hr Heparin Sodium (Porcine) 5,000 (units/ Sodium Chloride) 501 mls @ 5 mls/hr IV ASDIRECTED NAHED Last Admin: 09/22/18 14:59 Dose: 5 mls/hr Propofol (Diprivan 100 Ml) 100 mls @ 1.361 mls/hr IV TITRATE NAHED; Protocol Last Titration: 09/17/18 03:30 Dose: 25 mcg/kg/min, 6.804 mls/hr Potassium Phosphate 20 mmole/ (Sodium Chloride) 106.6667 mls @ 35 mls/hr IV Q3H NAHED Stop: 09/07/18 17:29 Last Admin: 09/07/18 15:01 Dose: 35 mls/hr Albumin Human (Albumin 25%) 25 gm in 100 mls @ 25 mls/hr IV DAILY NAHED Stop: 09/09/18 12:59 Last Admin: 09/09/18 08:25 Dose: 25 mls/hr Albumin Human (Albumin 25%) 25 gm in 100 mls @ 25 mls/hr IV Q24H NAHED Stop: 09/09/18 17:59 Last Admin: 09/09/18 14:32 Dose: 25 mls/hr Sodium Chloride (Normal Saline) 1,000 mls @ 0 mls/hr IV ASDIRECTED NAHED Last Admin: 09/19/18 05:15 Dose: 12.5 mls/hr Aztreonam 1 gm/ Sodium (Chloride) 50 mls @ 100 mls/hr IV Q8H [facility] Last Admin: 09/08/18 09:41 Dose: 100 mls/hr Vancomycin HCl 1 gm/ Sodium (Chloride) 250 mls @ 167 mls/hr IV Q18H [facility] Last Admin: 09/09/18 18:42 Dose: 167 mls/hr Sodium Chloride (Normal Saline) 1,000 mls @ 999 mls/hr IV .BOLUS ONE Stop: 09/07/18 17:39 Last Admin: 09/07/18 17:26 Dose: 999 mls/hr Potassium Acetate 40 meq/ (Sodium Chloride) 120 mls @ 30 mls/hr IV ONETIME ONE Stop: 09/08/18 13:59 Last Admin: 09/08/18 09:44 Dose: 30 mls/hr Multivitamins/Minerals 10 ml/Chromium/Copper/Manganese/Seleni/Zn 1 ml/ Amino Ac/ Electrol/Dextrose/Calcium 1,011 mls @ 62 mls/hr IV .BY DURATION [facility] Stop: 09/20/18 17:00 Last Admin: 09/19/18 09:10 Dose: 62 mls/hr Amino Ac/Electrol/Dextrose/Calcium (Clinimix E 09/28) 1,000 mls @ 62 mls/hr IV .BY DURATION [facility] Stop: 09/20/18 17:00 Last Admin: 09/20/18 01:21 Dose: 62 mls/hr Sodium Chloride (Normal Saline) 100 mls @ 3 mls/sec IV ASDIRECTED [facility] Stop: 09/08/18 15:00 Last Admin: 09/08/18 14:17 Dose: 3 mls/sec Azithromycin 500 mg/ Sodium (Chloride) 250 mls @ 250 mls/hr IV Q24H [facility] Last Admin: 09/09/18 15:27 Dose: 250 mls/hr Gentamicin Sulfate 228 mg/ (Sodium Chloride) 105.7 mls @ 100 mls/hr IV ONETIME ONE Stop: 09/08/18 17:03 Last Admin: 09/08/18 16:19 Dose: 100 mls/hr Potassium Phosphate 15 mmole/ (Sodium Chloride) 105 mls @ 55 mls/hr IV Q2H [facility] Stop: 09/09/18 12:55 Last Admin: 09/09/18 15:27 Dose: 55 mls/hr Gentamicin Sulfate 228 mg/ (Sodium Chloride) 105.7 mls @ 100 mls/hr IV Q36H [facility] Last Admin: 09/10/18 03:55 Dose: 100 mls/hr Sodium Chloride (Normal Saline) 500 mls @ 999 mls/hr IV .BOLUS ONE Stop: 09/09/18 16:34 Last Admin: 09/09/18 16:18 Dose: 999 mls/hr Sodium Chloride (Normal Saline) 500 mls @ 999 mls/hr IV .BOLUS ONE Stop: 09/09/18 17:35 Last Admin: 09/09/18 17:18 Dose: 999 mls/hr Sodium Chloride (Normal Saline) 1,000 mls @ 125 mls/hr IV ASDIRECTED [facility] Last Admin: 09/10/18 01:41 Dose: 125 mls/hr Lactated Ringer's (Ringers, Lactated) 1,000 mls @ 125 mls/hr IV ASDIRECTED [facility] Last Admin: 09/11/18 01:06 Dose: 125 mls/hr Meropenem 500 mg/ Sodium (Chloride) 25 mls @ 50 mls/hr IV Q8H [facility] Last Admin: 09/20/18 13:05 Dose: 50 mls/hr Gentamicin Sulfate 228 mg/ (Sodium Chloride) 55.7 mls @ 55 mls/hr IV Q36H [facility] Last Admin: 09/14/18 16:49 Dose: 55 mls/hr Azithromycin 500 mg/ Dextrose/ (Water) 250 mls @ 250 mls/hr IV Q24H [facility] Stop: 09/17/18 17:00 Last Admin: 09/14/18 15:42 Dose: 250 mls/hr Vancomycin HCl 1 gm/ Dextrose/ (Water) 250 mls @ 167 mls/hr IV Q24H [facility] Last Admin: 09/13/18 17:48 Dose: 167 mls/hr Fluconazole/Sodium Chloride (200 mg/ Premix) 100 mls @ 100 mls/hr IV Q24H [facility] Last Admin: 09/15/18 20:38 Dose: 100 mls/hr Magnesium Sulfate 2 gm/ Premix 50 mls @ 25 mls/hr IV Q6H [facility] Stop: 09/13/18 05:59 Last Admin: 09/13/18 03:31 Dose: 25 mls/hr Potassium Phosphate 22.5 mmole (/ Dextrose/Water) 107.5 mls @ 27 mls/hr IV Q4H [facility] Stop: 09/11/18 17:29 Last Admin: 09/11/18 14:45 Dose: 27 mls/hr Lactated Ringer's (Ringers, Lactated) 1,000 mls @ 75 mls/hr IV ASDIRECTED [facility] Last Admin: 09/13/18 22:27 Dose: 75 mls/hr Sodium Chloride (Normal Saline) Confirm Administered Dose 10 mls @ as directed .ROUTE .STK-MED ONE Stop: 09/11/18 10:41 Potassium Chloride 40 meq/ (Premix) 100 mls @ 25 mls/hr IV ONETIME ONE Stop: 09/13/18 12:59 Last Admin: 09/13/18 09:31 Dose: 25 mls/hr Potassium Chloride 40 meq/ (Premix) 100 mls @ 25 mls/hr IV ONETIME ONE Stop: 09/13/18 17:59 Last Admin: 09/13/18 13:11 Dose: 25 mls/hr Albumin Human (Albumin 25%) 25 gm in 100 mls @ 25 mls/hr IV Q24H [facility] Stop: 09/16/18 11:59 Last Admin: 09/16/18 09:02 Dose: 25 mls/hr Albumin Human (Albumin 25%) 25 gm in 100 mls @ 25 mls/hr IV Q24H [facility] Stop: 09/16/18 15:59 Last Admin: 09/16/18 12:33 Dose: 25 mls/hr Fluconazole/Sodium Chloride (400 mg/ Premix) 200 mls @ 100 mls/hr IV Q24H [facility] Last Admin: 09/24/18 20:22 Dose: 100 mls/hr Potassium Chloride 40 meq/ (Premix) 100 mls @ 25 mls/hr IV ONETIME ONE Stop: 09/16/18 11:59 Last Admin: 09/16/18 08:02 Dose: 25 mls/hr Potassium Chloride 20 meq/ (Premix) 100 mls @ 50 mls/hr IV ONETIME ONE Stop: 09/16/18 13:59 Last Admin: 09/16/18 11:36 Dose: 50 mls/hr Potassium Chloride 40 meq/ (Premix) 100 mls @ 25 mls/hr IV ONETIME ONE Stop: 09/17/18 11:59 Last Admin: 09/17/18 08:43 Dose: 25 mls/hr Magnesium Sulfate 2 gm/ Premix 50 mls @ 25 mls/hr IV Q6H NAHED Stop: 09/19/18 05:59 Last Admin: 09/19/18 03:26 Dose: 25 mls/hr Potassium Chloride 40 meq/ (Premix) 100 mls @ 25 mls/hr IV ONETIME ONE Stop: 09/18/18 12:59 Last Admin: 09/18/18 08:34 Dose: 25 mls/hr Potassium Chloride 40 meq/ (Premix) 100 mls @ 25 mls/hr IV ONETIME ONE Stop: 09/19/18 11:59 Last Admin: 09/19/18 08:19 Dose: 25 mls/hr Potassium Chloride 20 meq/ (Premix) 100 mls @ 50 mls/hr IV ONETIME ONE Stop: 09/19/18 13:59 Last Admin: 09/19/18 11:05 Dose: 50 mls/hr Propofol (Diprivan 100 Ml) 100 mls @ 2.354 mls/hr IV TITRATE NAHED; Protocol Last Admin: 09/20/18 05:35 Dose: 15 mcg/kg/min, 7.062 mls/hr Multivitamins/Minerals 10 ml/Chromium/Copper/Manganese/Seleni/Zn 1 ml/ Amino Ac/ Electrol/Dextrose/Calcium 2,011 mls @ 100 mls/hr IV .BY DURATION NAHED Amino Ac/Electrol/Dextrose/Calcium (Clinimix E 5/20) 2,000 mls @ 100 mls/hr IV .BY DURATION NAHED Multivitamins/Minerals 10 ml/Chromium/Copper/Manganese/Seleni/Zn 1 ml/ Amino Ac/ Electrol/Dextrose/Calcium 2,011 mls @ 62 mls/hr IV .BY DURATION NAHED Stop: 09/21/18 16:50 Last Admin: 09/20/18 17:31 Dose: 62 mls/hr Amino Ac/Electrol/Dextrose/Calcium (Clinimix E 5/20) 2,000 mls @ 62 mls/hr IV .BY DURATION NAHED Stop: 09/21/18 16:50 Potassium Chloride 40 meq/ (Premix) 100 mls @ 25 mls/hr IV ONETIME ONE Stop: 09/21/18 12:59 Last Admin: 09/21/18 09:38 Dose: 25 mls/hr Multivitamins/Minerals 10 ml/Chromium/Copper/Manganese/Seleni/Zn 1 ml/ Amino Ac/ Electrol/Dextrose/Calcium 2,011 mls @ 62 mls/hr IV .BY DURATION [facility] Last Admin: 09/23/18 16:06 Dose: 62 mls/hr Amino Ac/Electrol/Dextrose/Calcium (Clinimix E 5/20) 2,000 mls @ 62 mls/hr IV .BY DURATION [facility] Potassium Phosphate 22.5 mmole (/ Sodium Chloride) 257.5 mls @ 86 mls/hr IV Q3H [facility] Stop: 09/22/18 20:59 Last Admin: 09/22/18 17:50 Dose: 86 mls/hr Magnesium Sulfate 2 gm/ Premix 50 mls @ 25 mls/hr IV Q6H [facility] Stop: 09/25/18 05:59 Last Admin: 09/25/18 04:29 Dose: 25 mls/hr Dextrose/Lactated Ringer's (Dextrose 5%-Lactated Ringers) 1,000 mls @ 40 mls/ hr IV ASDIRECTED [facility] Last Admin: 09/24/18 07:51 Dose: 40 mls/hr Potassium Chloride 40 meq/ (Premix) 100 mls @ 25 mls/hr IV ONETIME ONE Stop: 09/24/18 12:59 Potassium Chloride 40 meq/ (Premix) 100 mls @ 25 mls/hr IV ONETIME ONE Stop: 09/24/18 17:59 Last Admin: 09/24/18 21:05 Dose: 25 mls/hr Potassium Phosphate 22.5 mmole (/ Sodium Chloride) 107.5 mls @ 27 mls/hr IV Q4H [facility] Stop: 09/25/18 01:59 Last Admin: 09/25/18 04:43 Dose: 27 mls/hr Multivitamins/Minerals 10 ml/Chromium/Copper/Manganese/Seleni/Zn 1 ml/ Amino Ac/ Electrol/Dextrose/Calcium 1,011 mls @ 62 mls/hr IV .BY DURATION [facility] Amino Ac/Electrol/Dextrose/Calcium (Clinimix E 5/20) 1,000 mls @ 62 mls/hr IV .BY DURATION [facility] Sodium Chloride (Normal Saline) 1,000 mls @ 25 mls/hr IV ASDIRECTED [facility] Multivitamins/Minerals 10 ml/Chromium/Copper/Manganese/Seleni/Zn 1 ml/ Amino Ac/ Electrol/Dextrose/Calcium 1,011 mls @ 62 mls/hr IV .BY DURATION [facility] Stop: 09/26/18 16:00 Last Admin: 09/25/18 12:50 Dose: 62 mls/hr Amino Ac/Electrol/Dextrose/Calcium (Clinimix E 5/20) 1,000 mls @ 62 mls/hr IV .BY DURATION [facility] Stop: 09/26/18 16:00 Last Admin: 09/26/18 07:43 Dose: 62 mls/hr Multivitamins/Minerals 10 ml/Chromium/Copper/Manganese/Seleni/Zn 1 ml/ Amino Ac/ Electrol/Dextrose/Calcium 1,011 mls @ 40 mls/hr IV .BY DURATION [facility] Last Admin: 09/27/18 05:54 Dose: 40 mls/hr Amino Ac/Electrol/Dextrose/Calcium (Clinimix E 5/20) 1,000 mls @ 40 mls/hr IV .BY DURATION [facility] Potassium Phosphate 22.5 mmole (/ Sodium Chloride) 107.5 mls @ 27 mls/hr IV Q4H [facility] Stop: 09/27/18 17:29 Last Admin: 09/27/18 13:53 Dose: 27 mls/hr Iopamidol (Isovue-300 (61%)) 100 ml IV . DIRECTED PRN PRN Reason: RADIOLOGY EXAM Stop: 09/09/18 11:03 Last Admin: 09/08/18 14:16 Dose: 100 ml Ketoconazole (Nizoral 2% Crm) 0 gm TOP TID [facility] Last Admin: 09/24/18 13:53 Dose: Not Given Lidocaine HCl (Xylocaine 2% Viscous) Confirm Administered Dose 15 ml .ROUTE .STK -MED ONE Stop: 09/12/18 11:15 Lidocaine HCl (Xylocaine 4% Top Soln) Confirm Administered Dose 50 ml .ROUTE .STK-MED ONE Stop: 09/12/18 11:15 Lidocaine HCl (Xylocaine 4% Top Soln) Confirm Administered Dose 50 ml .ROUTE .STK-MED ONE Stop: 09/14/18 06:57 Last Admin: 09/14/18 07:20 Dose: 20 ml Lidocaine HCl (Xylocaine-Mpf 1%) 5 ml INJECT ONETIME ONE Stop: 09/17/18 06:31 Last Admin: 09/17/18 06:52 Dose: 5 ml Lidocaine HCl (Xylocaine 2% Viscous) Confirm Administered Dose 15 ml .ROUTE .STK -MED ONE Stop: 09/20/18 06:37 Lidocaine HCl (Xylocaine 4% Top Soln) Confirm Administered Dose 50 ml .ROUTE .STK-MED ONE Stop: 09/20/18 06:38 Last Admin: 09/20/18 09:05 Dose: 50 ml Lidocaine/Epinephrine (Xylocaine 1% With Epinephrine 1:100,000) Confirm Administered Dose 50 ml .ROUTE .STK-MED ONE Stop: 09/07/18 06:48 Last Admin: 09/07/18 10:54 Dose: 18 ml Lidocaine/Epinephrine (Xylocaine 1% With Epinephrine 1:100,000) Confirm Administered Dose 50 ml .ROUTE .STK-MED ONE Stop: 09/11/18 09:07 Last Admin: 09/11/18 10:49 Dose: 2 ml Lidocaine/Epinephrine (Xylocaine 1% With Epinephrine 1:100,000) Confirm Administered Dose 50 ml .ROUTE .STK-MED ONE Stop: 09/20/18 06:38 Lorazepam (Ativan) 0.5 mg IVPUSH Q4H PRN PRN Reason: Nausea/Vomiting Lorazepam (Ativan) 0.5 mg IVPUSH Q3H PRN PRN Reason: AGITATION Last Admin: 09/18/18 13:47 Dose: 0.5 mg Lorazepam (Ativan) 0.5 mg IVPUSH Q1H PRN PRN Reason: Anxiety Last Admin: 09/27/18 20:30 Dose: 0.5 mg Meropenem (Merrem) Confirm Administered Dose 1,000 mg .ROUTE .STK-MED ONE Stop: 09/03/18 17:54 Last Admin: 09/03/18 18:32 Dose: 3,500 mg Meropenem (Merrem) Confirm Administered Dose 1,000 mg .ROUTE .STK-MED ONE Stop: 09/03/18 18:04 Meropenem (Merrem) Confirm Administered Dose 2,000 mg .ROUTE .STK-MED ONE Stop: 09/03/18 18:18 Meropenem (Merrem) Confirm Administered Dose 500 mg .ROUTE .STK-MED ONE Stop: 09/07/18 06:48 Last Admin: 09/07/18 10:53 Dose: 500 mg Metoprolol Tartrate (Lopressor) 25 mg PO ONETIME ONE Stop: 09/03/18 10:41 Last Admin: 09/03/18 11:00 Dose: 25 mg Metoprolol Tartrate (Lopressor) 5 mg IVPUSH Q6H NAHED Last Admin: 09/08/18 09:25 Dose: 5 mg Metoprolol Tartrate (Lopressor) 2.5 mg IVPUSH Q6H NAHED Last Admin: 09/10/18 03:55 Dose: 2.5 mg Metoprolol Tartrate (Lopressor) Confirm Administered Dose 5 mg .ROUTE .STK-MED ONE Stop: 09/08/18 21:53 Last Admin: 09/08/18 22:19 Dose: Not Given Metoprolol Tartrate (Lopressor) 2.5 mg IVPUSH Q4H NAHED Last Admin: 09/11/18 21:25 Dose: Not Given Metoprolol Tartrate (Lopressor) 2.5 mg IVPUSH Q4H PRN PRN Reason: Hypertension Last Admin: 09/19/18 11:44 Dose: 2.5 mg Morphine Sulfate (Morphine) 2 mg IVPUSH Q1H PRN PRN Reason: Anxiety Last Admin: 09/19/18 16:04 Dose: 2 mg Naloxone HCl (Narcan) 0.1 mg IV ASDIRECTED PRN PRN Reason: decreased respiratory rate Neostigmine Methylsulfate (Neostigmine) Confirm Administered Dose 5 mg .ROUTE .STK-MED ONE Stop: 09/03/18 14:41 Neostigmine Methylsulfate (Neostigmine) Confirm Administered Dose 5 mg .ROUTE .STK-MED ONE Stop: 09/04/18 09:47 Non-Formulary Medication (Total Parenteral Nutrition, Central) 0 ml IV ASDIRECTED NAHED Stop: 09/12/18 13:31 Non-Formulary Medication (Total Parenteral Nutrition, Central) 0 ml IV ASDIRECTED NAHED Stop: 09/13/18 13:00 Ondansetron HCl (Zofran Odt) 4 mg PO Q6H PRN PRN Reason: Nausea able to take PO Ondansetron HCl (Zofran) 4 mg IV Q6H PRN PRN Reason: Nausea/Vomiting Ondansetron HCl (Zofran) Confirm Administered Dose 4 mg .ROUTE .STK-MED ONE Stop: 09/03/18 14:41 Ondansetron HCl (Zofran) Confirm Administered Dose 4 mg .ROUTE .STK-MED ONE Stop: 09/04/18 09:47 Pantoprazole Sodium (Protonix Iv) 40 mg IV Q12H [facility] Last Admin: 09/03/18 16:07 Dose: 40 mg Pantoprazole Sodium (Protonix Iv) 40 mg IV Q24H [facility] Last Admin: 09/22/18 22:21 Dose: 40 mg Piperacillin Sod/Tazobactam Sod (Zosyn) 10.125 gm .XX ASDIRECTED [facility] Stop: 09/04/18 15:00 Last Admin: 09/04/18 14:04 Dose: 10.125 gm Potassium Chloride (Klor-Con M20) 40 meq PO ONETIME ONE Stop: 09/24/18 10:31 Last Admin: 09/24/18 10:36 Dose: 40 meq Potassium Chloride (Potassium Chloride Solution) 80 meq GTUBE ONETIME ONE Stop: 09/28/18 09:01 Last Admin: 09/28/18 08:19 Dose: 80 meq Propofol (Diprivan 20 Ml) Confirm Administered Dose 200 mg .ROUTE .STK-MED ONE Stop: 09/03/18 14:41 Propofol (Diprivan 20 Ml) Confirm Administered Dose 200 mg .ROUTE .STK-MED ONE Stop: 09/04/18 09:47 Propofol (Diprivan 20 Ml) Confirm Administered Dose 200 mg .ROUTE .STK-MED ONE Stop: 09/06/18 07:01 Propofol (Diprivan 20 Ml) Confirm Administered Dose 200 mg .ROUTE .STK-MED ONE Stop: 09/19/18 14:22 Rocuronium [place] (Zemuron) Confirm Administered Dose 50 mg .ROUTE .STK-MED ONE Stop: 09/03/18 14:41 Rocuronium [place] (Zemuron) Confirm Administered Dose 50 mg .ROUTE .STK-MED ONE Stop: 09/04/18 09:47 Rocuronium [place] (Zemuron) Confirm Administered Dose 50 mg .ROUTE .STK-MED ONE Stop: 09/20/18 07:50 Rocuronium [place] (Zemuron) Confirm Administered Dose 50 mg .ROUTE .STK-MED ONE Stop: 09/26/18 08:14 Succinylcholine Chloride (Quelicin) Confirm Administered Dose 200 mg .ROUTE .STK -MED ONE Stop: 09/03/18 14:41 Succinylcholine Chloride (Quelicin) Confirm Administered Dose 200 mg .ROUTE .STK -MED ONE Stop: 09/04/18 09:47 Succinylcholine Chloride (Quelicin) Confirm Administered Dose 200 mg .ROUTE .STK -MED ONE Stop: 09/06/18 07:01 - Exam Quality Assessment: Reports: Supplemental Oxygen, Central Line/PICC (right upper arm ) General: Reports: Alert, Cooperative, No Acute Distress HEENT: Reports: Pupils Equal. Denies: Mucous Membr. Moist/Pax (dry) Neck: Reports: Other (tracheostomy ) Lungs: Reports: Clear to Auscultation, Normal Respiratory Effort Cardiovascular: Reports: Regular Rate, Regular Rhythm GI/Abdominal Exam: Soft, No Distention, Other (colostomy with small brown stool in LLQ. PEG with clean site in LUQ) Extremities: No Pedal Edema. No: Increased Warmth Skin: Reports: Warm, Dry Wound/Incisions: Reports: Healing Well, No Drainage Psy/Mental Status: Reports: Alert, Anxious (mild) *Q Meaningful Use (DIS) - VTE *Q VTE Pharmacological Contraindications *Q: Patient Scheduled Surgery
--- NOTE | 2018-09-29 13:27 | PN ---
DATE OF SERVICE: 09/28/2018 The patient has been clinically quite stable overnight, tolerating some weaning with IMV and pressor support today. She did not tolerate the trach mask. Otherwise, G-tube appears to be working satisfactorily and did move her bowels. Labs showed BNP to be quite high at 10,000, up from around 5000 yesterday, so we gave her some Lasix at this point, and we can move the tube feedings up to 55 mL an hour with the TPN now to be discontinued. She is tentatively planned to proceed with a transfer to [facility] tomorrow. Potassium is marginally low at 3.4, and we will supplement that with some KCl through the G-tube today. Christiano Estrada MD /[id number]
== END 2018-09-29 12:01 | DRG 3 ==
LOC: JP.ED 10:21 → JP.ICU 13:57
PROVIDERS: ADMIT Internal Medicine; ATTEND Internal Medicine
PROC: 0DB80ZZ Excision of Small Intestine, Open Approach (ICD-10-PCS; 2018-09-03)
PROC: 0DBU0ZZ Excision of Omentum, Open Approach (ICD-10-PCS; 2018-09-03)
PROC: 0DBV0ZZ Excision of Mesentery, Open Approach (ICD-10-PCS; 2018-09-03)
PROC: 0D1N0Z4 Bypass Sigmoid Colon to Cutaneous, Open Approach (ICD-10-PCS; 2018-09-03)
PROC: 0DBN0ZZ Excision of Sigmoid Colon, Open Approach (ICD-10-PCS; 2018-09-03)
PROC: 0DB80ZZ Excision of Small Intestine, Open Approach (ICD-10-PCS; 2018-09-04)
PROC: 0W9G0ZZ Drainage of Peritoneal Cavity, Open Approach (ICD-10-PCS; 2018-09-04)
PROC: 0DU Gastrointestinal System, Supplement (ICD-10-PCS; 2018-09-04)
PROC: 05HY32Z Insertion of Monitoring Device into Upper Vein, Percutaneous Approach (ICD-10-PCS; 2018-09-04)
PROC: 30233N1 Transfusion of Nonautologous Red Blood Cells into Peripheral Vein, Percutaneous Approach (ICD-10-PCS; 2018-09-05)
PROC: 3E0336Z Introduction of Nutritional Substance into Peripheral Vein, Percutaneous Approach (ICD-10-PCS; 2018-09-05)
PROC: 5A1955Z Respiratory Ventilation, Greater than 96 Consecutive Hours (ICD-10-PCS; 2018-09-06)
PROC: 0BH17EZ Insertion of Endotracheal Airway into Trachea, Via Natural or Artificial Opening (ICD-10-PCS; 2018-09-06)
PROC: 03HY32Z Insertion of Monitoring Device into Upper Artery, Percutaneous Approach (ICD-10-PCS; 2018-09-06)
PROC: 0WQF0ZZ Repair Abdominal Wall, Open Approach (ICD-10-PCS; 2018-09-07)
PROC: 0WQFXZZ Repair Abdominal Wall, External Approach (ICD-10-PCS; 2018-09-11)
PROC: 02HV33Z Insertion of Infusion Device into Superior Vena Cava, Percutaneous Approach (ICD-10-PCS; 2018-09-11)
PROC: 0WCQ8ZZ Extirpation of Matter from Respiratory Tract, Via Natural or Artificial Opening Endoscopic (ICD-10-PCS; 2018-09-12)
PROC: 0BC78ZZ Extirpation of Matter from Left Main Bronchus, Via Natural or Artificial Opening Endoscopic (ICD-10-PCS; 2018-09-13)
PROC: 0BC38ZZ Extirpation of Matter from Right Main Bronchus, Via Natural or Artificial Opening Endoscopic (ICD-10-PCS; 2018-09-13)
PROC: 0WCQ8ZZ Extirpation of Matter from Respiratory Tract, Via Natural or Artificial Opening Endoscopic (ICD-10-PCS; 2018-09-14)
PROC: 0BH17EZ Insertion of Endotracheal Airway into Trachea, Via Natural or Artificial Opening (ICD-10-PCS; 2018-09-19)
PROC: 5A1955Z Respiratory Ventilation, Greater than 96 Consecutive Hours (ICD-10-PCS; 2018-09-19)
PROC: 0B113F4 Bypass Trachea to Cutaneous with Tracheostomy Device, Percutaneous Approach (ICD-10-PCS; principal; 2018-09-20)
PROC: 0B918ZZ Drainage of Trachea, Via Natural or Artificial Opening Endoscopic (ICD-10-PCS; 2018-09-20)
PROC: 05HY33Z Insertion of Infusion Device into Upper Vein, Percutaneous Approach (ICD-10-PCS; 2018-09-24)
PROC: 0DH63UZ Insertion of Feeding Device into Stomach, Percutaneous Approach (ICD-10-PCS; 2018-09-26)
PROC: 3E0G76Z Introduction of Nutritional Substance into Upper GI, Via Natural or Artificial Opening (ICD-10-PCS; 2018-09-26)
DX: A41.9 Sepsis, unspecified organism (principal); J96.01 Acute respiratory failure with hypoxia; J96.02 Acute respiratory failure with hypercapnia; K55.021 Focal (segmental) acute infarction of small intestine; J18.9 Pneumonia, unspecified organism; K57.20 Diverticulitis of large intestine with perforation and abscess without bleeding; E87.1 Hypo-osmolality and hyponatremia; N17.9 Acute kidney failure, unspecified; E87.2 Acidosis; F05 Delirium due to known physiological condition; R50.9 Fever, unspecified; R10.30 Lower abdominal pain, unspecified; D70.9 Neutropenia, unspecified; T17.890A Other foreign object in other parts of respiratory tract causing asphyxiation, initial encounter; B37.89 Other sites of candidiasis; I10 Essential (primary) hypertension; K59.09 Other constipation; F41.9 Anxiety disorder, unspecified; R65.20 Severe sepsis without septic shock; B96.1 Klebsiella pneumoniae [K. pneumoniae] as the cause of diseases classified elsewhere; B96.20 Unspecified Escherichia coli [E. coli] as the cause of diseases classified elsewhere; E88.09 Other disorders of plasma-protein metabolism, not elsewhere classified; E83.42 Hypomagnesemia; D64.89 Other specified anemias; E87.6 Hypokalemia; D50.0 Iron deficiency anemia secondary to blood loss (chronic); E86.9 Volume depletion, unspecified; Z78.1 Physical restraint status; Z88.8 Allergy status to other drugs, medicaments and biological substances; Z79.899 Other long term (current) drug therapy; Z92.3 Personal history of irradiation; Z85.89 Personal history of malignant neoplasm of other organs and systems
CPT/HCPCS: 36415; 74176; 80048; 82272; 83605; 85027; 86140; 87040 ×2; 87077; 96361; 96365; 96375; 96376; 99285 ×2; A9270 ×2; C1751 ×2; J1170 ×5; J2543; J7030 ×2; 36430; 36600; 51702; 71045; 74177; 80053; 80076; 80170; 80202; 82803; 83615; 83735; 83880; 84100; 84443; 85025; 86850; 86900; 86901; 86920; 86922; 87015; 87070; 87075; 87102; 87116; 87186; 87205; 87206; 87220; 88112; 88305; 88307; 93306; 94002; 94003; 94640; 94660; 94799; 97110-GP; 97163-GP; 97165-GO; 97530-GP; 97760-GO; C9113; J0171; J0330; J0360; J0456; J1100; J1450; J1580; J1642; J1644; J1940; J2001; J2060; J2185; J2270; J2405; J2704; J2710; J2795; J3010; J3370; J3475; J3480; J3490; J7040; J7042; J7050; J7060; J7120; J7620-GY; P9016; P9047; Q9967

== ENCOUNTER 2018-11-15 13:20 | Emergency (ER) | payer MEDICARE, OTHER ==
[2018-11-15] MEDS ORDERED: Sodium Chloride 0.9% 1,000 ML IV SCH ×2 (14:15→16:00)
--- NOTE | 2018-11-15 15:07 | EDM.PDOC ---
<Cheyenne Moreira - Last Filed: 11/15/18 17:58> ED HPI GENERAL MEDICAL PROBLEM - General Chief Complaint: Gastrointestinal Problem Stated Complaint: UNABLE TO DEFECATE Time Seen by Provider: 11/15/18 15:04 Source of Information: Reports: Patient History Limitations: Reports: No Limitations - History of Present Illness INITIAL COMMENTS - FREE TEXT/NARRATIVE: pt arrived distended and not having stools in the colostomy bag. She has not been having alot of discomfort. Onset: Other ( this started yesterday -- she did not have any stools either today ofr yesterday. ) Duration: Hour(s): Location: Reports: Abdomen Associated Symptoms: Reports: No Other Symptoms Right Abdominal Pain Score (Numeric/FACES): 4 - Related Data Allergies Allergy/AdvReac Type Severity Reaction Status Date / Time naproxen [From Aleve] Allergy Nausea and Verified 11/15/18 14:19 Vomiting Home Meds: Home Meds Metoprolol Tartrate 25 mg PO BID 09/03/18 [History] Acetaminophen 650 mg PO Q4H 11/15/18 [History] Albuterol Sulfate 1 dose INH Q6H PRN 11/15/18 [History] ClonazePAM [KlonoPIN] 0.25 mg PO BEDTIME 11/15/18 [History] ClonazePAM [KlonoPIN] 1 tab PO BID 11/15/18 [History] Enoxaparin [Lovenox] 40 mg SUBCUT DAILY 11/15/18 [History] Melatonin 5 mg PO BEDTIME 11/15/18 [History] Omeprazole 1 tab PO DAILY 11/15/18 [History] Selenium Sulfide [Selrx] 1 dose TOP ASDIRECTED 11/15/18 [History] amLODIPine [Norvasc] 1 tab PO DAILY 11/15/18 [History] Past Medical History Cardiovascular History: Reports: Hypertension, Other (See Below) Other Cardiovascular History: son reports patient had to be defibrillated after at anti-anxiety medication caused her QR interval to be too long. 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 She has a emopty colostomy bag. She has not had stools for 2 days. ) : Reports: No Symptoms ED EXAM, GI/ABD - Physical Exam Exam: See Below Text/Narrative:: pt arrived with no stools in the colostomy for the past 2 days. She has become mildly distended. Exam Limited By: No Limitations General Appearance: Alert, Moderate Distress Ears: Normal TMs Nose: Normal Inspection Throat/Mouth: Normal Inspection Head: Atraumatic Neck: Normal Inspection Respiratory/Chest: No Respiratory Distress Cardiovascular: Regular Rate, Rhythm GI/Abdominal Exam: Tender (Female) Exam: Deferred Rectal (Female) Exam: Other (pt has a colostomy) Back Exam: Normal Inspection Extremities: Normal Inspection Neurological: Alert, Oriented, Normal Cognition Course - Vital Signs Last Recorded V/S: Last Vital Signs Temp 96.9 F 11/15/18 14:16 Pulse 79 11/15/18 14:45 Resp 20 11/15/18 14:16 BP 166/66 H 11/15/18 14:45 Pulse Ox 96 11/15/18 14:16 - Orders/Labs/Meds Orders: Active Orders 24 hr Category Date Time Status Enema [RC] ASDIRECTED Care 11/15/18 16:24 Active Enema [RC] ASDIRECTED Care 11/15/18 17:15 Active Iopamidol [Isovue-300 (61%)] Med 11/15/18 15:30 Active 77 ml IV . DIRECTED Sodium Chloride 0.9% [Normal Saline] 1,000 ml Med 11/15/18 14:15 Active IV ASDIRECTED Sodium Chloride 0.9% [Normal Saline] 1,000 ml Med 11/15/18 16:00 Active IV ASDIRECTED Medication Orders Sodium Chloride (Normal Saline) 1,000 mls @ 999 mls/hr IV ASDIRECTED [facility] Last Admin: 11/15/18 15:09 Dose: 999 mls/hr Sodium Chloride (Normal Saline) 1,000 mls @ 250 mls/hr IV ASDIRECTED NAHED Last Admin: 11/15/18 16:50 Dose: 250 mls/hr Iopamidol (Isovue-300 (61%)) 77 ml IV . DIRECTED NAHED Last Admin: 11/15/18 16:03 Dose: 100 ml Labs: Laboratory Tests 11/15/18 11/15/18 11/15/18 Range/Units 14:18 14:18 14:18 WBC 5.6 (4.5-11.0) K/uL RBC 2.78 L (3.30-5.50) M/uL Hgb 8.4 L (12.0-15.0) g/dL Hct 26.8 L (36.0-48.0) % MCV 96 (80-98) fL MCH 30 (27-31) pg MCHC 31 L (32-36) % Plt Count 348 (150-400) K/uL Neut % (Auto) 56 (36-66) % Lymph % (Auto) 24 (24-44) % Baker % (Auto) 17 H (2-6) % Eos % (Auto) 3 (2-4) % Baso % (Auto) 1 (0-1) % Sodium 133 L (140-148) mmol/L Potassium 4.5 (3.6-5.2) mmol/L Chloride 98 L (100-108) mmol/L Carbon Dioxide 29 (21-32) mmol/L Anion Gap 10.5 (5.0-14.0) mmol/L BUN 18 (7-18) mg/dL Creatinine 0.9 (0.6-1.0) mg/dL Est Cr Clr Drug Dosing 37.45 mL/min Estimated GFR (MDRD) > 60 (>60) Glucose 95 (74-106) mg/dL Lactic Acid 1.5 (0.4-2.0) mmol/L Calcium 9.3 (8.5-10.1) mg/dL Total Bilirubin 0.5 (0.2-1.0) mg/dL AST 20 D (15-37) U/L ALT 24 D (12-78) U/L Alkaline Phosphatase 99 (46-116) U/L C-Reactive Protein 0.29 (0.0-0.3) mg/dL Total Protein 7.0 (6.4-8.2) g/dL Albumin 2.7 L (3.4-5.0) g/dL Globulin 4.3 H (2.3-3.5) g/dL Albumin/Globulin Ratio 0.6 L (1.2-2.2) Urine Color Urine Appearance Urine pH (4.5-8.0) Ur Specific [place] (1.008-1.030) Urine Protein (NEGATIVE) mg/dL Urine Glucose (UA) (NEGATIVE) mg/dL Urine Ketones (NEGATIVE) mg/dL Urine Occult Blood (NEGATIVE) Urine Nitrite (NEGATIVE) Urine Bilirubin (NEGATIVE) Urine Urobilinogen (NORMAL) mg/dL Ur Leukocyte Esterase (NEGATIVE) Urine RBC (0-5) Urine WBC (0-5) Ur Epithelial Cells Amorphous Sediment Urine Bacteria Urine Mucus 11/15/18 Range/Units 14:46 WBC (4.5-11.0) K/uL RBC (3.30-5.50) M/uL Hgb (12.0-15.0) g/dL Hct (36.0-48.0) % MCV (80-98) fL MCH (27-31) pg MCHC (32-36) % Plt Count (150-400) K/uL Neut % (Auto) (36-66) % Lymph % (Auto) (24-44) % Baker % (Auto) (2-6) % Eos % (Auto) (2-4) % Baso % (Auto) (0-1) % Sodium (140-148) mmol/L Potassium (3.6-5.2) mmol/L Chloride (100-108) mmol/L Carbon Dioxide (21-32) mmol/L Anion Gap (5.0-14.0) mmol/L BUN (7-18) mg/dL Creatinine (0.6-1.0) mg/dL Est Cr Clr Drug Dosing mL/min Estimated GFR (MDRD) (>60) Glucose (74-106) mg/dL Lactic Acid (0.4-2.0) mmol/L Calcium (8.5-10.1) mg/dL Total Bilirubin (0.2-1.0) mg/dL AST (15-37) U/L ALT (12-78) U/L Alkaline Phosphatase (46-116) U/L C-Reactive Protein (0.0-0.3) mg/dL Total Protein (6.4-8.2) g/dL Albumin (3.4-5.0) g/dL Globulin (2.3-3.5) g/dL Albumin/Globulin Ratio (1.2-2.2) Urine Color Yellow Urine Appearance Clear Urine pH 8.0 (4.5-8.0) Ur Specific [place] 1.005 L (1.008-1.030) Urine Protein Negative (NEGATIVE) mg/dL Urine Glucose (UA) Normal (NEGATIVE) mg/dL Urine Ketones Negative (NEGATIVE) mg/dL Urine Occult Blood Negative (NEGATIVE) Urine Nitrite Negative (NEGATIVE) Urine Bilirubin Negative (NEGATIVE) Urine Urobilinogen Normal (NORMAL) mg/dL Ur Leukocyte Esterase Negative (NEGATIVE) Urine RBC Not seen (0-5) Urine WBC Not seen (0-5) Ur Epithelial Cells Rare Amorphous Sediment Not seen Urine Bacteria Rare Urine Mucus Not seen Meds: Medications Generic Name Dose Route Start Last Admin Trade Name Freq PRN Reason Stop Dose Admin Sodium Chloride 1,000 mls @ 999 mls/hr 11/15/18 14:15 11/15/18 15:09 Normal Saline IV 999 mls/hr ASDIRECTED NAHED Administration Sodium Chloride 1,000 mls @ 250 mls/hr 11/15/18 16:00 11/15/18 16:50 Normal Saline IV 250 mls/hr ASDIRECTED NAHED Administration Iopamidol 77 ml 11/15/18 15:30 11/15/18 16:03 Isovue-300 (61%) IV 100 ml . DIRECTED NAHED Administration Discontinued Medications Generic Name Dose Route Start Last Admin Trade Name Freq PRN Reason Stop Dose Admin Sodium Chloride 100 mls @ 3 mls/sec 11/15/18 15:23 11/15/18 16:03 Normal Saline IV 11/15/18 15:24 3 mls/sec ONETIME ONE Administration Magnesium Citrate 296 ml 11/15/18 17:15 11/15/18 17:25 Citrate Of Magnesia PO 11/15/18 17:16 296 ml ONETIME ONE Administration - Re-Assessments/Exams Free Text/Narrative Re-Assessment/Exam: 11/15/18 17:55 lab work looks good except she had persistent anemia . Cat scan showed no obstruction present. Will start enemeas on the pt. Pt was hydrated with 2 liters of fluid. 11/15/18 17:58 Departure - Departure Time of Disposition: 18:00 Disposition: Home, Self-Care 01 Clinical Impression: Constipation due to slow transit - Discharge Information Instructions: Constipation, Adult, [id number] Referrals: PCP,None [Primary Care Provider] - Forms: ED Department Discharge Care Plan Goals: Recheck in 2-3 days if not returning to normal bowel pattern. Return sooner if abdominal distention or pain. Continue regular medications. Stay hydrated with water. <Christophe Rico - Last Filed: 11/15/18 18:39> Course - Re-Assessments/Exams Free Text/Narrative Re-Assessment/Exam: 11/15/18 18:39 Patient care turned over from Dr. Moreira. Waiting results from several enemas. A small amount of return was acquired with the last enema, CT scan was reviewed and appears normal. Patient was relatively asymptomatic. She was discharged to continue with hydration, and return if worsening.
--- NOTE | 2018-11-15 15:10 | CRLCR ---
INDICATION: Pain TECHNIQUE: Frontal radiograph of the chest, and 2 frontal radiographs of the abdomen and pelvis. COMPARISON: None FINDINGS AND IMPRESSION: Chest: Cardiomediastinal silhouette is within normal limits. No focal consolidation. No pleural effusions or pneumothorax. Abdomen: Percutaneous gastrostomy tube projects over the left upper quadrant. Nonobstructive bowel gas pattern. No free air beneath the diaphragm. 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 Degenerative changes of the lower lumbar spine. Dictated by Yeimi Brown MD @ 11/15/2018 3:08:38 PM Dictated by: Yeimi Brown MD @ 11/15/2018 15:08:44 (Electronically Signed)
[2018-11-15] MEDS ORDERED: Sodium Chloride 0.9% 100 ML IV ONE (15:23)
[2018-11-15] MEDS ORDERED: Iopamidol 612 MG/ML 100 ML Bottle IV SCH (15:30)
--- NOTE | 2018-11-15 16:37 | CRLCT ---
INDICATION: Possible bowel obstruction. Abdominal pain TECHNIQUE: 3 mm axial imaging has been performed through the abdomen and pelvis without contrast. Sagittal and coronal reconstructions have been obtained. COMPARISON: 09/08/2018 CT. FINDINGS: Previous infiltrate and pleural fluid in the lung bases has resolved. The enhancement of the liver is within normal limits. Tiny hypodensity right lobe is noted. The gallbladder is relatively decompressed. Borderline prominent extrahepatic bile duct is noted, no filling defect noted. The spleen, pancreas, bilateral adrenal glands are within normal limits. The kidneys demonstrate symmetric enhancement bilaterally. No hydronephrosis is noted. The retrocrural region retroperitoneum demonstrates no lymphadenopathy. Gastrostomy tube is in place. There is postsurgical changes within the midline small bowel. Questionable wall thickening is noted. Colostomy left lower quadrant is identified. Small parastomal hernia noted. Retained stool noted within the colon. No findings to suggest bowel obstruction. No abscess is seen. No free fluid noted. Urinary bladder is fluid filled and unremarkable. Stable mild compression fracture of T12. Degenerative change lumbar spine noted. IMPRESSION: 1. No evidence for acute bowel obstruction. 2. Interval placement gastrostomy tube. 3. Colostomy left lower quadrant is identified. Parastomal hernia noted. Retained stool noted within the colon. 4. Postsurgical changes small bowel midline abdomen. Questionable wall thickening of the small bowel noted. 5. Previous pleural fluid and consolidation lung bases has resolved. Dictated by Cruzito Hobbs MD @ 11/15/2018 4:36:17 PM Please note that all CT scans at this facility use dose modulation, iterative reconstruction, and/or weight-based dosing when appropriate to reduce radiation dose to as low as reasonably achievable. Dictated by: Cruzito Hobbs MD @ 11/15/2018 16:36:23 (Electronically Signed)
[2018-11-15] MEDS ORDERED: Magnesium Citrate Solution 296 ML Bottle PO ONE (17:15)
== END 2018-11-15 19:11 | disposition home or self-care (01) ==
LOC: JP.ED 13:20
DX: K59.01 Slow transit constipation (principal); I10 Essential (primary) hypertension; F41.9 Anxiety disorder, unspecified; Z88.6 Allergy status to analgesic agent; Z79.899 Other long term (current) drug therapy; Z93.3 Colostomy status
CPT/HCPCS: 36415; 74022; 74177; 80053; 81001; 83605; 85025; 86140; 96360; 99284; A9270; J7030; Q9967; 99283

== ENCOUNTER 2018-12-03 12:31 | Emergency (ER) | payer MEDICARE, OTHER ==
--- NOTE | 2018-12-03 13:03 | EDM.PDOC ---
ED HPI GENERAL MEDICAL PROBLEM - General Chief Complaint: Neuro Symptoms/Deficits Stated Complaint: POSSIBLE STROKE Time Seen by Provider: 12/03/18 12:35 Source of Information: Reports: Patient, Family History Limitations: Reports: No Limitations - History of Present Illness INITIAL COMMENTS - FREE TEXT/NARRATIVE: 78-year-old female had an episode of expressive aphasia for about 10-15 minutes this morning. She had no other symptoms. It is completely resolved but they wanted her checked out for a "stroke". She has no peripheral symptoms, no facial weakness, no visual complaints. No fever or chills. No headache. Onset: Sudden Duration: Minutes: (Lasted 10-20 minutes) Associated Symptoms: Reports: No Other Symptoms - Related Data Allergies Allergy/AdvReac Type Severity Reaction Status Date / Time naproxen [From Aleve] Allergy Nausea and Verified 12/03/18 12:37 Vomiting Home Meds: Home Meds Metoprolol Tartrate 25 mg PO BID 09/03/18 [History] Acetaminophen 650 mg PO Q4H 11/15/18 [History] Albuterol Sulfate 1 dose INH Q6H PRN 11/15/18 [History] ClonazePAM [KlonoPIN] 0.25 mg PO BEDTIME 11/15/18 [History] ClonazePAM [KlonoPIN] 1 tab PO BID 11/15/18 [History] Enoxaparin [Lovenox] 40 mg SUBCUT DAILY 11/15/18 [History] Melatonin 5 mg PO BEDTIME 11/15/18 [History] Omeprazole 1 tab PO DAILY 11/15/18 [History] Selenium Sulfide [Selrx] 1 dose TOP ASDIRECTED 11/15/18 [History] amLODIPine [Norvasc] 1 tab PO DAILY 11/15/18 [History] Past Medical History Cardiovascular History: Reports: Hypertension, Other (See Below) Other Cardiovascular History: son reports patient had to be defibrillated after at anti-anxiety medication caused her QR interval to be too long. 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: Psychiatric History: Reports: Anxiety - Past Surgical History Other HEENT Surgeries/Procedures: 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l GI Surgical History: Reports: Other (See Below) Musculoskeletal Surgical History: Reports: Joint Replacement Social & Family History - Family History Oncologic: Reports: Hodgkin's Lymphoma - Tobacco Use Smoking Status *Q: Never Smoker - Caffeine Use Caffeine Use: Reports: Coffee - Recreational Drug Use Recreational Drug Use: No ED ROS GENERAL - Review of Systems Review Of Systems: See Below Constitutional: Denies: Fever, Chills, Malaise HEENT: Denies: Vision Change Respiratory: Denies: Shortness of Breath, Cough Cardiovascular: Denies: Chest Pain, Palpitations GI/Abdominal: Denies: Nausea, Vomiting Neurological: Reports: Trouble Speaking. Denies: Confusion, Dizziness, Headache ED EXAM, NEURO - Physical Exam Exam: See Below Exam Limited By: No Limitations General Appearance: Alert, No Apparent Distress Eye Exam: Bilateral Eye: EOMI Throat/Mouth: Normal Inspection Head Exam: Atraumatic Neck: No: Carotid Bruit Respiratory/Chest: No Respiratory Distress, Lungs Clear Cardiovascular: Regular Rate, Rhythm, Extra Beats (Occasional extra beat) Neurological: Alert, Normal Mood/Affect, No Motor/Sensory Deficits, Oriented x 3 Psychiatric: Normal Affect, Normal Mood Skin Exam: Warm, Dry Course - Vital Signs Last Recorded V/S: Last Vital Signs Temp 97.2 F 12/03/18 12:36 Pulse 71 12/03/18 12:36 Resp 16 12/03/18 12:36 BP 149/60 H 12/03/18 12:36 Pulse Ox 98 12/03/18 12:36 - Re-Assessments/Exams Free Text/Narrative Re-Assessment/Exam: 12/03/18 13:01 This patient had about 10-15 minutes of expressive aphasia as an isolated symptom. This very well may have been central, such as a TIA, but her symptoms are completely resolved, she is in a normal sinus rhythm, and she is on Lovenox daily. She does not want aggressive evaluation. If symptoms recur and are persisting she can return but no further workup is necessary at this time. Departure - Departure Time of Disposition: 13:11 Disposition: DC/Tfer to [facility] Clinical Impression: TIA (transient ischemic attack) - Discharge Information Instructions: Transient Ischemic Attack, [id number] Referrals: Suzanne Moffett MD [Primary Care Provider] - Forms: ED Department Discharge Care Plan Goals: Continue your current medications including Lovenox. If symptoms recur and are persistent return for additional evaluation.
== END 2018-12-03 13:11 ==
LOC: JP.ED 12:31
DX: G45.9 Transient cerebral ischemic attack, unspecified (principal); F41.9 Anxiety disorder, unspecified; I10 Essential (primary) hypertension; Z79.899 Other long term (current) drug therapy; Z88.8 Allergy status to other drugs, medicaments and biological substances
CPT/HCPCS: 99284; 99285

== ENCOUNTER 2019-05-18 07:47 | Inpatient (IN) | payer MEDICARE, OTHER ==
[~2019-05-18 07:47] MED LIST: Dexamethasone 4 MG/ML SDV ONE; Glycopyrrolate 0.2 MG/ML 5 ML MDV ONE; Neostigmine Methylsulfate 1 MG/ML 5 ML Syringe ONE; Ondansetron 4 MG/2 ML SDV ONE; Propofol 200 MG/20 ML SDV ONE; Rocuronium 50 MG/5 ML Vial ONE; Succinylcholine 200 MG/10 ML MDV ONE; fentaNYL 250 MCG/5 ML SDV ONE
[2019-05-18] MEDS ORDERED: Acetaminophen 500 MG Tab PO ONE (08:00)
[2019-05-18] MEDS: POLYMYXIN B SODIUM CHLORIDE ONE ×4 (08:25→15:30)
[2019-05-18] MEDS: Neomycin/Polymyxin B 1 ML, Sodium Chloride 0.9% 750 ML IRR ONE ×4 (08:25→15:30)
[2019-05-18] MEDS: NEOMYCIN ONE ×4 (08:25→15:30)
[2019-05-18] MEDS ORDERED: Meropenem 500 MG SDV ONE (08:53)
[2019-05-18] MEDS ORDERED: Albuterol/Ipratropium 3.0-0.5 MG/3 ML Neb Soln NEB ONE (09:00)
[2019-05-18] MEDS ORDERED: Dextrose 5%-Lactated Ringers 1,000 ML IV SCH ×2 (09:00→15:00)
[2019-05-18] MEDS ORDERED: Naloxone 0.4 MG/ML SDV IVPUSH PRN (09:30)
[2019-05-18] MEDS ORDERED: Sodium Chloride 0.9% 10 ML ONE (10:14)
[2019-05-18] MEDS ORDERED: fentaNYL 100 MCG/2 ML SDV ONE (10:14)
[2019-05-18] MEDS: cefOXitin 2 GM in Sodium Chloride 0.9% 50 ML IV ONE ×2 (11:00→17:37)
[2019-05-18] MEDS ORDERED: Lactated Ringers 1,000 ML ONE (11:49)
[2019-05-18] MEDS ORDERED: hydrOXYzine HCL 100 MG/2 ML SDV IM ONE (13:31)
[2019-05-18] MEDS ORDERED: Albuterol/Ipratropium 3.0-0.5 MG/3 ML Neb Soln INH PRN (14:51)
[2019-05-18] MEDS ORDERED: hydrOXYzine HCL 100 MG/2 ML SDV IM PRN (14:51)
[2019-05-18] MEDS: Albuterol/Ipratropium 3.0-0.5 MG/3 ML Neb Soln INH SCH ×2 (15:10→20:07)
[2019-05-18] MEDS: fentaNYL 2,500 MCG in Sodium Chloride 0.9% 200 ML EPIDUR SCH (15:28)
[2019-05-18] MEDS ORDERED: Naloxone 0.4 MG/ML SDV IVPUSH ONE (15:47)
[2019-05-18] MEDS ORDERED: Lactated Ringers 500 ML IV ONE (16:47)
[2019-05-18] MEDS: Dextrose 5%-Lactated Ringers 1,000 ML with Naloxone 0.4 MG IV SCH ×2 (16:49)
[2019-05-18] MEDS: Acetaminophen 325 MG Tab PO SCH ×2 (16:57→22:46)
[2019-05-18] MEDS: Pantoprazole 40 MG Vial IVPUSH SCH (16:57)
[2019-05-18] MEDS ORDERED: Lactated Ringers 500 ML IV SCH (17:45)
[2019-05-18] MEDS: ClonazePAM 0.5 MG Tab PO SCH (20:06)
[2019-05-18] MEDS: Cyclobenzaprine 10 MG Tab PO PRN (20:07)
[2019-05-18] MEDS: Metoprolol Tartrate 25 MG Tab PO SCH (20:08)
[2019-05-19] MEDS: Dextrose 5%-Lactated Ringers 1,000 ML with Naloxone 0.4 MG IV SCH ×8 (00:35→18:14)
[2019-05-19] MEDS ORDERED: Lactated Ringers 500 ML IV SCH (02:45)
[2019-05-19] MEDS: Acetaminophen 325 MG Tab PO SCH ×4 (04:29→23:23)
[2019-05-19] MEDS: Albuterol/Ipratropium 3.0-0.5 MG/3 ML Neb Soln INH SCH ×4 (06:59→21:36)
[2019-05-19] MEDS: Metoprolol Tartrate 25 MG Tab PO SCH ×2 (08:03→21:29)
[2019-05-19] MEDS: amLODIPine 5 MG Tab PO SCH (08:03)
[2019-05-19] MEDS: Magnesium Sulfate/Water 2 GM in Premix Bag 1 BAG IV SCH ×3 (08:31→21:26)
[2019-05-19] MEDS: Citalopram 10 MG Tab PO SCH (08:33)
--- NOTE | 2019-05-19 08:33 | PN ---
DATE OF SERVICE: 05/19/2019 SUBJECTIVE: Tina is postoperative day #1. She is alert, orientated. States pain is controlled. Vital signs have been stable. Blood pressure diastolic has been running, the last 2 have been 105/39 and 101/31. Pulse is 76 to 90. Oral intake 230. She has a Rbuin catheter in which put out 365 since surgery. She has had 2 boluses of lactated Ringer's. REMY drains have put out 20 and 20 respectively. LABORATORY DATA: Labs this morning, hemoglobin 8.7, and BNP 1890. REVIEW OF SYSTEMS: Remainder of review of systems negative for any pertinent positives and negatives. OBJECTIVE: GENERAL: Tina Muniz is a pleasant 78-year-old female. She is alert, orientated. VITAL SIGNS: TPR is 97.4, 90, 16, blood pressure 101/31. HEENT: Negative. NECK: Supple. HEART: Regular rate and rhythm. LUNGS: Clear. ABDOMEN: Dressings dry and intact. Abdominal binder is on. EXTREMITIES: Without peripheral edema. ASSESSMENT: 1. Exploratory laparotomy with lysis of adhesions. a. Takedown of colostomy. b. Left colon resection, coloproctostomy. c. Left salpingo-oophorectomy. d. Mobilization of splenic flexure. e. Mobilization of omentum into pelvis, supported by Interceed mesh. f. Repair of incarcerated paracolostomy hernia for status endocolostomy, paracolostomy hernia, extensive diverticulum, extensive intraabdominal adhesions, left tube and ovary adherent to pelvic sidewall. 2. Date of surgery: 05/18/2019. 3. Surgeon: Christiano Estrada MD. PLAN: 1. Schedule and have consent signed for delayed primary closure with IV and local sedation, TAP block on May 20 at 07:15. Surgeon: Christiano Estrada MD. 2. TAP block orders, pharmacy to dose. 3. Type and crossmatch 2 units of packed red blood cells. 4. Transfuse 1 unit of packed red blood cells. 5. Give Lasix 10 mg IV 1 time after packed red blood cells are infused. 6. Check CBC after 1 unit of packed red blood cells are infused. 7. Decrease IV to 100 mL per hour when packed red blood cells have been started. 8. Give Lasix 10 mg IV 1 time after packed red blood cells are infused. Check CBC, CMP, phos, and BNP in a.m. 9. Magnesium 2 g IV q.6 hours x72 hours. 10.Dietary supplements, clear Ensure 3 times daily. 11.Good pulmonary toilet. 12.We will evaluate p.r.n. or in a.m. Aleta Harper PA-C /[id number]
[2019-05-19] MEDS ORDERED: Dextrose 5%-Lactated Ringers 1,000 ML IV SCH (10:00)
[2019-05-19] MEDS ORDERED: Furosemide 20 MG/2 ML VIAL IVPUSH ONE (11:30)
[2019-05-19] MEDS: fentaNYL 2,500 MCG in Sodium Chloride 0.9% 200 ML EPIDUR SCH (14:55)
[2019-05-19] MEDS: Pantoprazole 40 MG Vial IVPUSH SCH (15:18)
[2019-05-19] MEDS ORDERED: Dextrose 5%-Lactated Ringers 1,000 ML with Naloxone 0.4 MG IV SCH ×2 (15:40)
[2019-05-19] MEDS: ClonazePAM 0.5 MG Tab PO SCH (21:36)
[2019-05-19] MEDS: Ondansetron 4 MG/2 ML SDV IVPUSH PRN (22:32)
[2019-05-20] MEDS: Magnesium Sulfate/Water 2 GM in Premix Bag 1 BAG IV SCH ×4 (03:00→21:58)
[2019-05-20] MEDS: Dextrose 5%-Lactated Ringers 1,000 ML with Naloxone 0.4 MG IV SCH ×2 (04:31)
[2019-05-20] MEDS: Acetaminophen 325 MG Tab PO SCH ×4 (04:33→22:02)
[2019-05-20] MEDS ORDERED: Meropenem 500 MG SDV ONE (06:40)
[2019-05-20] MEDS ORDERED: Bupivacaine 0.5% 50 ML MDV ONE ×2 (06:40→06:41)
[2019-05-20] MEDS ORDERED: Lidocaine 1% with EPINEPHrine 1:100,000 50 ML MDV ONE (06:41)
[2019-05-20] MEDS ORDERED: Propofol 200 MG/20 ML SDV ONE (07:18)
[2019-05-20] MEDS ORDERED: Furosemide 20 MG/2 ML VIAL IVPUSH ONE ×2 (08:00→14:00)
[2019-05-20] MEDS ORDERED: Ropivacaine 22 ML, dexAMETHasone 8 MG, EPINEPHrine 0.4 MG, Sodium Chloride 0.9% 55.6 ML NERVRT SCH ×4 (08:00)
[2019-05-20] MEDS: Albuterol/Ipratropium 3.0-0.5 MG/3 ML Neb Soln INH SCH ×4 (08:00→22:04)
[2019-05-20] MEDS: Metoprolol Tartrate 25 MG Tab PO SCH ×2 (08:45→22:03)
[2019-05-20] MEDS: Citalopram 10 MG Tab PO SCH (08:45)
[2019-05-20] MEDS: amLODIPine 5 MG Tab PO SCH (08:45)
[2019-05-20] MEDS ORDERED: Potassium Chloride 20 MEQ, Lidocaine 1% 2 ML in Sodium Chloride 0.9% 100 ML IV ONE (10:00)
[2019-05-20] MEDS: DEXTROSE IV SCH ×4 (10:15→22:39)
[2019-05-20] MEDS: KCL IV SCH ×4 (10:15→22:39)
[2019-05-20] MEDS: NACL IV SCH ×4 (10:15→22:39)
[2019-05-20] MEDS: NALOXONE IV SCH ×4 (10:15→22:39)
[2019-05-20] MEDS ORDERED: POTASSIUM CHLORIDE IV SCH ×3 (11:00)
[2019-05-20] MEDS ORDERED: NACL IV SCH ×3 (11:00)
[2019-05-20] MEDS ORDERED: NALOXONE IV SCH ×3 (11:00)
[2019-05-20] MEDS ORDERED: DEXTROSE IV SCH ×3 (11:00)
--- NOTE | 2019-05-20 11:01 | PN ---
DATE OF SERVICE: 05/20/2019 The patient has been afebrile with stable vital signs. Respiratory status is okay. She still has a little nausea and minor emesis. Did have delayed primary closure done of both the colostomy site and the midline incision without incident. Her sodium, chloride, and potassium are all a little low, and we will change the IV to D5 normal saline with 20 mEq of potassium chloride per liter. Otherwise, her BNP is up fairly high today. She did receive 2 units of packed RBCs yesterday and has a hemoglobin of 10.0 this morning. We will give her some IV Lasix in the recovery room and then repeat that in 6 hours. Recheck some labs in the morning. Otherwise, awaiting GI tract to augment gastric emptying. We will add some IV erythromycin as well. This may also facilitate bowel activity. Christiano Estrada MD /[id number]
--- NOTE | 2019-05-20 11:34 | PN ---
DATE OF SERVICE: 05/20/2019 SUBJECTIVE: Tina is n.p.o. She will be having delayed primary closure today. She remains to be on 2 L of O2. Had 1 episode of nausea with small amount of emesis. This morning, hemoglobin is 10. She received 1 unit of packed red blood cells yesterday. Her KCl is 3.4 and BNP is 3316. REVIEW OF SYSTEMS: Remainder of review of systems negative for any pertinent positives and negatives. OBJECTIVE: GENERAL: Tina Muniz is a pleasant 78-year-old female. She is alert and orientated. VITAL SIGNS: TPR is 98.4, 111, 16, blood pressure 118/67. HEENT: Negative. NECK: Supple. HEART: Regular rate and rhythm. LUNGS: Clear. ABDOMEN: Dressings dry and intact. Abdominal binder is on. EXTREMITIES: Without peripheral edema. ASSESSMENT: 1. Exploratory laparotomy with lysis of adhesions. a. Takedown of colostomy. b. Left colon resection, coloproctostomy. c. Left salpingo-oophorectomy. d. Mobilization of splenic flexure. e. Mobilization of omentum into pelvis, supported by Interceed mesh. f. Repair of incarcerated paracolostomy hernia for status endocolostomy, paracolostomy hernia, extensive diverticulum, extensive intraabdominal adhesions, left tube and ovary adherent to pelvic sidewall. 2. Date of surgery: 05/18/2019. Surgeon: Christiano Estrada MD. PLAN: Orders to be written after delayed primary closure, and we will evaluate p.r.n. or in a.m. Aleta Harper PA-C /[id number]
[2019-05-20] MEDS: Azithromycin 125 MG in Sodium Chloride 0.9% 100 ML IV SCH (13:06)
[2019-05-20] MEDS: Pantoprazole 40 MG Vial IVPUSH SCH (16:04)
--- NOTE | 2019-05-20 16:36 | OR ---
DATE OF PROCEDURE: 05/20/2019 SURGEON: Christiano Estrada MD PREOPERATIVE DIAGNOSIS: Open abdominal incision x2. POSTOPERATIVE DIAGNOSIS: Open abdominal incision x2. OPERATIVE PROCEDURE: Delayed primary closure of open abdominal incision x2. ANESTHESIA: Local plus IV sedation. INDICATION FOR PROCEDURE: The patient is status post a takedown of colostomy along with a more extensive colon resection with colorectal anastomosis 48 hours ago. The skin and subcutaneous tissue at both the primary midline incision and colostomy site incision were felt to be a high risk for wound infection if these were closed. These were therefore packed open for primary closure at this time. Potential risks including bleeding and infection were reviewed, and the patient wishes to proceed. DETAILS OF PROCEDURE: The patient was taken to the operating room and placed in a semi- sitting position with the upright posture maintained to minimize chances of aspiration. IV sedation was administered, after which, the operative dressing was taken down and found to be clean. The abdomen was then prepped and draped. Initially, bilateral transversus abdominis plane blocks were placed with ultrasound guidance. Following this then, the incision was anesthetized with 1% lidocaine mixed with Marcaine. This included both the midline and the colostomy site incisions. These were then irrigated with antibiotic- containing saline solution. Both incisions were then closed sequentially with 3-0 Vicryl stitch deep, along with some subdermal 4-0 Vicryl stitches, and then yassine for the skin. Dressings were applied. The patient was taken to the recovery room in satisfactory condition. Christiano Estrada MD /[id number]
[2019-05-20] MEDS: fentaNYL 2,500 MCG in Sodium Chloride 0.9% 200 ML EPIDUR SCH (21:55)
[2019-05-20] MEDS: ClonazePAM 0.5 MG Tab PO SCH (22:02)
[2019-05-21] MEDS: Azithromycin 125 MG in Sodium Chloride 0.9% 100 ML IV SCH ×2 (00:35→13:00)
[2019-05-21] MEDS: Magnesium Sulfate/Water 2 GM in Premix Bag 1 BAG IV SCH ×4 (05:20→20:42)
[2019-05-21] MEDS: Acetaminophen 325 MG Tab PO SCH ×4 (05:21→22:55)
[2019-05-21] MEDS: Albuterol/Ipratropium 3.0-0.5 MG/3 ML Neb Soln INH SCH ×4 (07:08→22:57)
[2019-05-21] MEDS ORDERED: HYDROmorphone 2 MG Tab PO PRN (07:30)
[2019-05-21] MEDS ORDERED: Furosemide 20 MG/2 ML VIAL IVPUSH ONE ×3 (07:45→12:00)
[2019-05-21] MEDS: Bisacodyl 5 MG Tab PO SCH ×2 (09:20→20:41)
[2019-05-21] MEDS: Ibuprofen 400 MG Tab PO SCH ×4 (09:20→20:39)
[2019-05-21] MEDS: Docusate Sodium 100 MG Cap PO SCH ×2 (09:21→20:40)
[2019-05-21] MEDS: Citalopram 10 MG Tab PO SCH (09:21)
[2019-05-21] MEDS: Metoprolol Tartrate 25 MG Tab PO SCH ×2 (09:22→20:41)
[2019-05-21] MEDS: amLODIPine 5 MG Tab PO SCH (09:22)
[2019-05-21] MEDS: DEXTROSE IV SCH ×2 (13:13)
[2019-05-21] MEDS: KCL IV SCH ×2 (13:13)
[2019-05-21] MEDS: NALOXONE IV SCH ×2 (13:13)
[2019-05-21] MEDS: NACL IV SCH ×2 (13:13)
[2019-05-21] MEDS ORDERED: Dextrose 5%-0.9% NaCl with KCl 1,000 ML IV SCH (13:30)
--- NOTE | 2019-05-21 13:56 | OR ---
DATE OF PROCEDURE: 05/18/2019 SURGEON: Christiano Estrada MD PREOPERATIVE DIAGNOSES: 1. Status end colostomy and Rosa's pouch. 2. Paracolostomy hernia. POSTOPERATIVE DIAGNOSES: 1. Status end colostomy and Rosa's pouch. 2. Paracolostomy hernia. 3. Extensive diverticular disease involving descending colon. 4. Extensive intraabdominal adhesions. 5. Left tube and ovary adherent to pelvic sidewall. INDICATIONS: Patient underwent a sigmoid colon resection for perforated diverticulitis last August. She was greatly ill for a period of time and required tracheostomy and was able to get off the ventilator, but did from that point forward do well, and at this point presents for takedown of her colostomy. Potential risks including bleeding, infection, injury to underlying viscera, possible leaks from the colorectal anastomosis that might in turn require another colostomy were all reviewed along with the remote possibility of cardiopulmonary, septic, or hemorrhagic complications leading to , and the patient wishes to proceed. DETAILS OF PROCEDURE: The patient was taken to the operating room, and after an epidural catheter was placed, general endotracheal anesthetic was induced, and the epidural infusion initiated. A Rubin catheter was inserted. The patient was converted to a lithotomy position and the abdomen prepped and draped. The previous midline incision in this case just above the umbilicus to the pubis was made carried down through the skin and subcutaneous tissue, and the peritoneal cavity entered. The patient had fairly extensive adhesions in the lower half of the abdomen including small bowel, the large bowel, and pelvic and abdominal wall. These were actually taken down, and at that point, this was able to be retracted out of the pelvis. The attention was then taken to the colostomy. The peritoneum along the fascial edges from within, where it was initially divided with electrocautery and this then allowed dissection of the peritoneum away from the subcutaneous tissue around the colon circumferentially. That then allowed traction of the colostomy back into the abdomen. As noted, it had been sutured off with Prolene stitch so as to avoid spill into the operative field during the course of the dissection. The colostomy was then amputated with a GRACE purple load and that specimen delivered from the field. The colon proximal to this was quite stenotic and edematous and infected by considerable diverticular disease and it was felt to be not overtly satisfactory to anastomose to the rectum. Given this, the remainder of the sigmoid colon, descending colon, and portion of the splenic flexure were then resected. During the course of the resection, the splenic flexure was taken down. This then allowed what would be basically the junction of the descending colon and distal aspect of the splenic flexure to be mobilized down into the pelvis with absolutely no tension, in fact there was a considerable moderate redundancy mobilizing the neck going down to the level of the divided rectum. Bladder had been at this point dissected free and identified, and some attachments to the uterus and the rectal stump were . During the course of the initial pelvic dissection, the left tube and ovary were densely adherent to the pelvic sidewall. This was more or less where the diverticulitis had perforated. As these were dissected free, it was noted that these were not well vascularized at this point, and the tube and ovary excised with a GRACE stapler and delivered from the field. Of note, the right tube and ovary were unremarkable and with a normal postmenopausal appearance. At this point, the anvil of a 28 mm EEA stapler was passed into an opening made in the end of the divided colon, and this was then re-stapled and the anvil was brought out through the most dependent portion of the colon. The blood supply to this segment of colon appeared to be very good at this point with a well-developed fan of artery and veins coming down toward the end of the divided colon. Main body of the stapler was then brought up through the rectum. The patient did have some remaining stool in there, which was manually disimpacted. With this done, we then brought up the apex of the rectal stump. This was connected to the anvil and fired, thus creating the coloproctostomy. Upon removal of the stapler, double donuts of mucosa were noted within it. While including the more proximal colon, the pelvis was irrigated with antibiotic-containing saline solution, and while the solution was in place, the colonoscope was passed rectally up to the level of the anastomosis. Insufflation showed good blood supply on both sides of an intact anastomosis, and no air bubbles were seen. The scope was then withdrawn. The coloproctostomy was then reinforced with some 3-0 Vicryl seromuscular stitch on its anterior two thirds of the circumference. At this point, the paracolostomy hernia was closed. This was closed with a transverse orientation. Two layers of #1 Vicryl stitch were used, one from inside, including the peritoneum and the deeper layers of the musculature, and then the second layer on the outer aspect of the fascia, again with a running 0 Vicryl stitch. At that point, hernia appeared to be satisfactorily repaired. Two Jesus-Chavarria drains were then placed in stab wounds of the left mid abdomen, one taken up along the area of the paracolic gutter up toward the spleen where the splenic flexure had been taken down, and the other brought down to the area adjacent to the coloproctostomy within the pelvis, so as to limit recurrent adhesion formation. The omentum was then mobilized down in the pelvis. This was somewhat scant and did not completely separate the small bowel from the lower abdominal incision and some of the pelvic sidewall, so an additional Interceed mesh was also placed to supplement the omentum. At this point, the midline fascia was approximated with #2 Vicryl stitch, the skin and subcutaneous tissue were left open at both colostomy site and midline incision for planned delayed primary closure in 48 hours given the high risk for a wound infection if primary closure was undertaken today. At this point, no further problems noted. The patient was taken to the recovery room in satisfactory condition. There were no evident complications. Christiano Estrada MD /[id number]
--- NOTE | 2019-05-21 14:53 | PN ---
DATE OF SERVICE: 05/21/2019 SUBJECTIVE: Tina had a delayed primary closure yesterday. She had no complications. Vital signs have been stable. Pain has been controlled with epidural. Oral intake having sips of clears is 740. Urine output via Rubin catheter 2600. REVIEW OF SYSTEMS: Remainder of review of systems negative for any pertinent positives and negatives. OBJECTIVE: GENERAL: Tina Muniz is a pleasant 78-year-old female. VITAL SIGNS: TPR is 97, 76, 85. Blood pressure 141/57. HEENT: Negative. NECK: Supple. HEART: Regular rate and rhythm. LUNGS: Clear. ABDOMEN: Dressings dry and intact. Abdominal binder is on. EXTREMITIES: Without peripheral edema. ASSESSMENT: 1. Exploratory laparotomy with lysis of adhesions. a. Takedown of colostomy. b. Left colon resection, coloproctostomy. c. Left salpingo-oophorectomy. d. Mobilization of splenic flexure. e. Mobilization of omentum into pelvis, supported by Interceed mesh. f. Repair of incarcerated paracolostomy hernia for status endocolostomy, paracolostomy hernia, extensive diverticulum, extensive intraabdominal adhesions, left tube and ovary adherent to pelvic sidewall. 2. Date of surgery: 05/18/2019. Surgeon: Christiano Estrada MD. 3. Delayed primary closure, 05/20/2019, Christiano Estrada MD. PLAN: 1. Remain to be n.p.o. with sips of clear liquids. 2. Discontinue Ensure. 3. Ibuprofen 400 mg every 6 hours with food scheduled. 4. Dulcolax 5 mg 1 tablet b.i.d. until the patient has bowel movement and then discontinue. 5. Colace 100 mg b.i.d. scheduled. 6. Dilaudid 2 mg every 4 hours p.r.n. severe pain. 7. Discontinue epidural this afternoon. 8. Give Lasix 20 mg IV now. 9. Give Lasix 20 mg IV 12 noon. 10.Discontinue Rubin catheter when the epidural is discontinued. 11.Decrease IV to 60 mL per hour. 12.Check CBC, CMP, phosphorus, and BNP in a.m. 13.Continue good pulmonary toilet. 14.We will evaluate p.r.n. or in a.m. Aleta Harper PA-C /[id number]
[2019-05-21] MEDS: Pantoprazole 40 MG Vial IVPUSH SCH (15:26)
[2019-05-21] MEDS: Ondansetron 4 MG/2 ML SDV IVPUSH PRN (17:45)
[2019-05-21] MEDS: ClonazePAM 0.5 MG Tab PO SCH (22:57)
[2019-05-22] MEDS: Azithromycin 125 MG in Sodium Chloride 0.9% 100 ML IV SCH ×2 (00:30→12:26)
[2019-05-22] MEDS: Ondansetron 4 MG/2 ML SDV IVPUSH PRN ×3 (00:31→20:30)
[2019-05-22] MEDS: Ibuprofen 400 MG Tab PO SCH ×4 (02:25→20:05)
[2019-05-22] MEDS: Magnesium Sulfate/Water 2 GM in Premix Bag 1 BAG IV SCH (02:50)
[2019-05-22] MEDS: Acetaminophen 325 MG Tab PO SCH ×4 (04:17→22:06)
[2019-05-22] MEDS ORDERED: Furosemide 20 MG/2 ML VIAL IVPUSH ONE ×2 (06:41→12:00)
[2019-05-22] MEDS: Albuterol/Ipratropium 3.0-0.5 MG/3 ML Neb Soln INH SCH ×4 (07:25→20:13)
[2019-05-22] MEDS ORDERED: Dextrose 5%-0.9% NaCl with KCl 1,000 ML IV SCH (07:45)
[2019-05-22] MEDS: Potassium Chloride 20 MEQ Tab.ER PO SCH ×3 (08:39→17:38)
[2019-05-22] MEDS: amLODIPine 5 MG Tab PO SCH (08:41)
[2019-05-22] MEDS: Bisacodyl 5 MG Tab PO SCH ×2 (08:42→20:05)
[2019-05-22] MEDS: Metoprolol Tartrate 25 MG Tab PO SCH ×2 (08:42→20:07)
[2019-05-22] MEDS: Citalopram 10 MG Tab PO SCH (08:43)
[2019-05-22] MEDS: Docusate Sodium 100 MG Cap PO SCH ×2 (08:43→20:07)
[2019-05-22] MEDS ORDERED: Potassium Chloride 20 MEQ, Lidocaine 1% 2 ML in Sodium Chloride 0.9% 100 ML IV ONE (10:00)
[2019-05-22] MEDS: Pantoprazole 40 MG Vial IVPUSH SCH (15:21)
[2019-05-22] MEDS: ClonazePAM 0.5 MG Tab PO SCH (20:12)
[2019-05-22] MEDS ORDERED: Metoclopramide 10 MG/2 ML SDV IVPUSH SCH (23:00)
[2019-05-23] MEDS: Azithromycin 125 MG in Sodium Chloride 0.9% 100 ML IV SCH ×2 (00:53→11:48)
[2019-05-23] MEDS: Ibuprofen 400 MG Tab PO SCH ×4 (01:11→20:06)
[2019-05-23] MEDS: Acetaminophen 325 MG Tab PO SCH ×4 (03:23→21:31)
[2019-05-23] MEDS: Albuterol/Ipratropium 3.0-0.5 MG/3 ML Neb Soln INH SCH ×4 (07:28→21:37)
[2019-05-23] MEDS ORDERED: Saliva Substitute Oral Spray 120 ML Bottle MUCMEM PRN (07:59)
[2019-05-23] MEDS: Potassium Chloride 20 MEQ Tab.ER PO SCH ×2 (09:09→16:52)
[2019-05-23] MEDS: Metoclopramide 10 MG/2 ML SDV IVPUSH SCH ×3 (09:09→23:48)
[2019-05-23] MEDS: Furosemide 20 MG/2 ML VIAL IVPUSH SCH ×2 (09:10→16:51)
[2019-05-23] MEDS: Loratadine 10 MG Tab.DIS PO SCH (09:10)
[2019-05-23] MEDS: Citalopram 10 MG Tab PO SCH (09:10)
[2019-05-23] MEDS: amLODIPine 5 MG Tab PO SCH (09:11)
[2019-05-23] MEDS: Docusate Sodium 100 MG Cap PO SCH ×2 (09:11→21:31)
[2019-05-23] MEDS: Metoprolol Tartrate 25 MG Tab PO SCH ×4 (09:11→21:30)
[2019-05-23] MEDS: Potassium Chloride 20 MEQ, Lidocaine 1% 2 ML in Sodium Chloride 0.9% 100 ML IV SCH ×3 (09:25→13:51)
[2019-05-23] MEDS ORDERED: Adenosine 6 MG/2 ML SDV ONE (09:43)
--- NOTE | 2019-05-23 10:35 | PN ---
DATE OF SERVICE: 05/23/2019 The patient has been afebrile with stable vital signs. She did move her bowels, and we will back down on dulcolax tablets at this point. She has been somewhat nauseated overnight, and this appeared to be improving. There seemed to be some gagging on tabs. Her BNP remains quite high. We will give her two doses of Lasix today. Her potassium chloride and sodium are all low, and we will supplement the potassium in normal saline rather than D5 water, and recheck some labs in the morning. We will try a full liquid diet today to see how that goes. Christiano Estrada MD /[id number]
--- NOTE | 2019-05-23 11:59 | PCM.CONS ---
H&P History of Present Illness - General Date of Service: 05/23/19 Admit Problem/Dx: Admission Diagnosis/Problem Admission Diagnosis/Problem Colostomy Source of Information: Patient, Provider, RN Notes Reviewed History Limitations: Reports: No Limitations - History of Present Illness Initial Comments - Free Text/Narative: Ms. Muniz is a 78-year-old woman who I been asked to see by Dr. Estrada for further suggestions concerning evaluation and management of supraventricular tachycardia. She was admitted to this facility on Friday of this past week for surgical reconnection of a colostomy. She is done well during the postoperative period until today when she was noted to have a heart rate of 150 bpm. She was hospitalized at this facility last spring with a perforated diverticuli requiring emergency surgery. Postoperative course was complicated by septic shock and respiratory failure. Since then she is slowly recovered and has been functioning fairly well prior to this surgery. She denies any history of significant cardiac disease and is currently asymptomatic with her rapid heart rate. Denies any symptoms of shortness of breath, chest pain, or lightheadedness. Middle Abdomen Pain Score (Numeric/FACES): 5 - Related Data Allergies/Adverse Reactions: Allergies Allergy/AdvReac Type Severity Reaction Status Date / Time naproxen [From Aleve] AdvReac Nausea and Verified 05/21/19 07:39 Vomiting Home Medications: Home Meds Metoprolol Tartrate 12.5 mg PO BID 09/03/18 [History] Acetaminophen 650 mg PO Q4H PRN 11/15/18 [History] Albuterol Sulfate 3 ml INH Q6H PRN 11/15/18 [History] ClonazePAM [KlonoPIN] 0.25 mg PO BEDTIME 11/15/18 [History] Melatonin 5 mg PO BEDTIME 11/15/18 [History] Omeprazole 20 mg PO DAILY 11/15/18 [History] amLODIPine [Norvasc] 5 mg PO DAILY 11/15/18 [History] Alendronate Sodium [Fosamax] 70 mg PO WEEKLY 05/13/19 [History] Citalopram Hydrobromide [Celexa] 10 mg PO DAILY 05/13/19 [History] Cyanocobalamin/FA/Pyridoxine [B Complex-Folic Acid] 1 each PO DAILY 05/13/19 [ History] Psyllium Husk/Aspartame [Metamucil Fiber Singles Packet] 1 pack PO DAILY [History] Aspirin [Halfprin] 81 mg PO DAILY 05/18/19 [History] Calcium Carbonate/Vitamin D3 [Calcium 600-Vit D3 800 Tablet] 1 each PO DAILY 11/28 [History] Glucosam/Chondr/Collagn/Hyalur [Glucosamine & Chondroitin Cap] 1 each PO BID 11/28 [History] Magnesium Oxide 400 mg PO DAILY 05/18/19 [History] Vit C/E/Zn/Coppr/Lutein/Zeaxan [Preservision Areds 2 Softgel] 1 each PO BID 11/28 [History] Past Medical History HEENT History: Reports: Cataract, Impaired Vision, Macular Degeneration Cardiovascular History: Reports: Hypertension, Other (See Below) Other Cardiovascular History: son reports patient had to be defibrillated after at anti-anxiety medication caused her QR interval to be too long. Gastrointestinal History: Reports: Chronic Constipation, Diverticulosis, Other ( See Below) Other Gastrointestinal History: colostomy, hernia under ostomy Genitourinary History: Reports: None [employer] REPA[employer]ER History: Reports: Musculoskeletal History: Reports: Arthritis, Fracture Psychiatric History: Reports: Anxiety Endocrine/Metabolic History: Reports: Hypothyroidism Hematologic History: Reports: Blood Transfusion(s) Oncologic (Cancer) History: Reports: Other (See Below) Other Oncologic History: tonsil/oral - Infectious Disease History Infectious Disease History: Reports: Chicken Pox, Measles, Mumps - Past Surgical History HEENT Surgical History: Reports: Cataract Surgery Other HEENT Surgeries/Procedures: 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l Cardiovascular Surgical History: Reports: None GI Surgical History: Reports: Colonoscopy, Other (See Below) Female Surgical History: Reports: Breast Biopsy Endocrine Surgical History: Reports: None Musculoskeletal Surgical History: Reports: Other (See Below) Other Musculoskeletal Surgeries/Procedures:: pins in left hip Social & Family History - Family History Oncologic: Reports: Hodgkin's Lymphoma - Tobacco Use Smoking Status *Q: Former Smoker Packs/Tins Daily: 0.4 Used Tobacco, but Quit: Yes Month/Year Tobacco Last Used: 2015 Second Hand Smoke Exposure: No - Caffeine Use Caffeine Use: Reports: Coffee, Soda - Alcohol Use Days Per Week of Alcohol Use: 7 Number of Drinks Per Day: 1 Total Drinks Per Week: 7 Date of Last Drink: 01/06/20 Time of Last Drink: 10:00 - Recreational Drug Use Recreational Drug Use: No H&P Review of Systems - Review of Systems: Review Of Systems: See Below General: Denies: Fever, Chills, Weakness, Fatigue Pulmonary: Reports: No Symptoms Cardiovascular: Reports: No Symptoms Gastrointestinal: Reports: Abdominal Pain. Denies: Constipation, Diarrhea, Difficulty Swallowing, Distension, Hematemesis, Hematochezia, Melena, Nausea, Vomiting Genitourinary: Reports: No Symptoms Exam - Exam Exam: See Below - Vital Signs Vital Signs: Last Vital Signs Temp 99.8 F 05/23/19 07:03 Pulse 116 H 05/23/19 10:15 Resp 18 05/23/19 07:03 BP 154/79 H 05/23/19 10:15 Pulse Ox 94 L 05/23/19 07:30 Weight: 98 lb - Exam Quality Assessment: DVT Prophylaxis General: Alert, Oriented, Cooperative, Mild Distress Neck: Supple, Trachea Midline, +2 Carotid Pulse wo Bruit Lungs: Clear to Auscultation, Normal Respiratory Effort Cardiovascular: Regular Rhythm, Normal S1, Normal S2, Tachycardia. No: Systolic Murmur, Diastolic Murmur GI/Abdominal Exam: Soft, Non-Tender, No Organomegaly, No Distention Extremities: Non-Tender, No Pedal Edema - Patient Data Lab Results Last 24 hrs: Laboratory Results - last 24 hr 05/19/19 05/23/19 05/23/19 Range/Units 07:59 04:20 04:20 WBC 10.1 (4.5-11.0) K/uL RBC 2.99 L (3.30-5.50) M/uL Hgb 10.1 L (12.0-15.0) g/dL Hct 30.2 L (36.0-48.0) % MCV 101 H (80-98) fL MCH 34 H (27-31) pg MCHC 33 (32-36) % Plt Count 228 (150-400) K/uL Sodium 130 L (140-148) mmol/L Potassium 3.1 L (3.6-5.2) mmol/L Chloride 95 L (100-108) mmol/L Carbon Dioxide 28 (21-32) mmol/L Anion Gap 10.1 (5.0-14.0) mmol/L BUN 7 (7-18) mg/dL Creatinine 0.6 (0.6-1.0) mg/dL Est Cr Clr Drug Dosing 53.35 mL/min Estimated GFR (MDRD) > 60 (>60) Glucose 116 H (74-106) mg/dL Calcium 8.4 L (8.5-10.1) mg/dL Phosphorus 2.0 L (2.5-4.9) mg/dL Magnesium (1.8-2.4) mg/dL Total Bilirubin 0.9 (0.2-1.0) mg/dL AST 32 (15-37) U/L ALT 29 (12-78) U/L Alkaline Phosphatase 98 (46-116) U/L NT-Pro-B Natriuret Pep 49698 H (5-450) pg/mL Total Protein 6.6 (6.4-8.2) g/dL Albumin 2.9 L (3.4-5.0) g/dL Globulin 3.7 H (2.3-3.5) g/dL Albumin/Globulin Ratio 0.8 L (1.2-2.2) Crossmatch See Detail 05/23/19 Range/Units 08:44 WBC (4.5-11.0) K/uL RBC (3.30-5.50) M/uL Hgb (12.0-15.0) g/dL Hct (36.0-48.0) % MCV (80-98) fL MCH (27-31) pg MCHC (32-36) % Plt Count (150-400) K/uL Sodium (140-148) mmol/L Potassium (3.6-5.2) mmol/L Chloride (100-108) mmol/L Carbon Dioxide (21-32) mmol/L Anion Gap (5.0-14.0) mmol/L BUN (7-18) mg/dL Creatinine (0.6-1.0) mg/dL Est Cr Clr Drug Dosing mL/min Estimated GFR (MDRD) (>60) Glucose (74-106) mg/dL Calcium (8.5-10.1) mg/dL Phosphorus (2.5-4.9) mg/dL Magnesium 1.8 (1.8-2.4) mg/dL Total Bilirubin (0.2-1.0) mg/dL AST (15-37) U/L ALT (12-78) U/L Alkaline Phosphatase (46-116) U/L NT-Pro-B Natriuret Pep (5-450) pg/mL Total Protein (6.4-8.2) g/dL Albumin (3.4-5.0) g/dL Globulin (2.3-3.5) g/dL Albumin/Globulin Ratio (1.2-2.2) Crossmatch Result Diagrams: 05/23/19 04:20 05/23/19 04:20 Sepsis Event Note - Evaluation Sepsis Screening Result: No Definite Risk - Focused Exam Vital Signs: Vital Signs Temp Pulse Pulse Resp BP BP BP 05/23/19 10:15 116 H 154/79 H 05/23/19 09:11 160 H 151/69 H 05/23/19 07:30 05/23/19 07:29 111 H 05/23/19 07:03 99.8 F 108 H 18 151/69 H 05/23/19 02:52 98.1 F 111 H 18 119/74 05/23/19 01:37 Pulse Ox Pulse Ox 05/23/19 10:15 05/23/19 09:11 05/23/19 07:30 94 L 05/23/19 07:29 97 05/23/19 07:03 94 L 05/23/19 02:52 94 L 05/23/19 01:37 97 Date Exam was Performed: 05/23/19 Time Exam was Performed: 12:07 Consult PN Assessment/Plan Procedures: Procedures AIRWAY INHALATION TREATMENT (09/03/18) ASSAY OF GENTAMICIN (09/03/18) ASSAY OF LACTIC ACID (11/15/18) ASSAY OF MAGNESIUM (09/03/18) ASSAY OF NATRIURETIC PEPTIDE (09/03/18) ASSAY OF PHOSPHORUS (09/03/18) ASSAY OF VANCOMYCIN (09/03/18) ASSAY THYROID STIM HORMONE (09/03/18) BLOOD CULTURE FOR BACTERIA (09/03/18) BLOOD GASES ANY COMBINATION (09/03/18) BLOOD TRANSFUSION SERVICE (09/03/18) BLOOD TYPING SEROLOGIC ABO (09/03/18) BLOOD TYPING SEROLOGIC RH(D) (09/03/18) C-REACTIVE PROTEIN (11/15/18) COMPATIBILITY TEST ANTIGLOB (09/03/18) COMPATIBILITY TEST SPIN (09/03/18) COMPLETE CBC AUTOMATED (11/10/18) COMPLETE CBC W/AUTO DIFF WBC (11/15/18) COMPREHEN METABOLIC PANEL (11/15/18) CT ABD & PELV W/CONTRAST (11/15/18) CT ABD & PELVIS W/O CONTRAST (09/03/18) CULTR BACTERIA EXCEPT BLOOD (09/03/18) CULTURE AEROBIC IDENTIFY (09/03/18) CULTURE OTHR SPECIMN AEROBIC (09/03/18) CYTOPATH CELL ENHANCE TECH (09/03/18) EMERGENCY DEPT VISIT (12/03/18) EMERGENCY DEPT VISIT (11/15/18) EMERGENCY DEPT VISIT (09/03/18) FUNGUS ISOLATION CULTURE (09/03/18) HEPATIC FUNCTION PANEL (09/03/18) HYDRATE IV INFUSION ADD-ON (09/03/18) HYDRATION IV INFUSION INIT (11/15/18) INSERT TEMP BLADDER CATH (09/03/18) LACTATE (LD) (LDH) ENZYME (09/03/18) METABOLIC PANEL TOTAL CA (11/10/18) MICROBE SUSCEPTIBLE DERECK (09/03/18) MYCOBACTERIA CULTURE (09/03/18) OCCULT BLD FECES 1-3 TESTS (09/03/18) ORTHOTIC MGMT&TRAING 1ST ENC (09/03/18) OT EVAL LOW COMPLEX 30 MIN (09/03/18) POS AIRWAY PRESSURE CPAP (09/03/18) PT EVAL HIGH COMPLEX 45 MIN (09/03/18) PULMONARY SERVICE/PROCEDURE (09/03/18) RBC ANTIBODY SCREEN (09/03/18) ROUTINE VENIPUNCTURE (11/15/18) SMEAR FLUORESCENT/ACID STAI (09/03/18) SMEAR GRAM STAIN (09/03/18) SPECIMEN INFECT AGNT CONCNTJ (09/03/18) THER/PROPH/DIAG IV INF INIT (09/03/18) THERAPEUTIC ACTIVITIES (09/03/18) THERAPEUTIC EXERCISES (09/03/18) TISSUE EXAM BY PATHOLOGIST (09/03/18) TISSUE EXAM BY PATHOLOGIST (09/03/18) TISSUE EXAM FOR FUNGI (09/03/18) TTE W/DOPPLER COMPLETE (09/03/18) TX/PRO/DX INJ NEW DRUG ADDON (09/03/18) TX/PRO/DX INJ SAME DRUG SPECIALTY DEPARTMENT SUPERVISOR (09/03/18) URINALYSIS AUTO W/SCOPE (11/15/18) VENT MGMT INPAT INIT DAY (09/03/18) VENT MGMT INPAT SUBQ DAY (09/03/18) WITHDRAWAL OF ARTERIAL BLOOD (09/03/18) X-RAY EXAM CHEST 1 VIEW (09/03/18) X-RAY EXAM COMPLETE ABDOMEN (11/15/18) Problem List Initiated/Reviewed/Updated: Yes My Orders Last 24 Hours: My Active Orders 05/23/19 09:09 Patient Status [ADT] Routine 05/23/19 09:12 Convert IV to Saline Lock [OM.PC] Routine 05/23/19 10:00 Metoprolol Tartrate [Lopressor] 12.5 mg PO Q6H Plan: ASSESSMENT AND RECOMMENDATIONS SUPRAVENTRICULAR TACHYCARDIA-abrupt onset this morning and currently asymptomatic, cannot rule out atrial flutter with 2-1 conduction. Patient was transferred to the intensive care unit with the intention of proceeding with IV Adenocard. The time she was settled in the intensive care unit she had spontaneously converted to sinus rhythm, still mildly tachycardic with heart rates in the 1 10-1 20 range. -Monitor in ICU -Increase metoprolol to 12.5 mg p.o. every 6 hours -Correct hypokalemia -Echocardiogram in a.m. STATUS POST COLOSTOMY TAKEDOWN -Postoperative care per Dr. Estrada HYPOKALEMIA -Potassium replacement as ordered by Dr. Estrada -Assess potassium level in a.m. FLUID OVERLOAD-intake is exceeded output during hospital stay -IV diuretic therapy as ordered by Dr. Estrada Requesting Provider: KENNEY Date Consult Requested: 05/23/19 Reason for Consult: Supraventricular tachycardia Patient History Reviewed: Yes
[2019-05-23] MEDS: Cyclobenzaprine 10 MG Tab PO PRN ×2 (15:09→23:45)
[2019-05-23] MEDS: Pantoprazole 40 MG Tab.CR PO SCH (15:57)
[2019-05-23] MEDS: ClonazePAM 0.5 MG Tab PO SCH (21:31)
[2019-05-24] MEDS: Azithromycin 125 MG in Sodium Chloride 0.9% 100 ML IV SCH ×3 (02:44→22:08)
[2019-05-24] MEDS: Ibuprofen 400 MG Tab PO SCH (02:47)
[2019-05-24] MEDS: Acetaminophen 325 MG Tab PO SCH ×4 (04:23→22:10)
[2019-05-24] MEDS: Metoprolol Tartrate 25 MG Tab PO SCH ×3 (04:24→20:21)
[2019-05-24] MEDS: Albuterol/Ipratropium 3.0-0.5 MG/3 ML Neb Soln INH SCH ×4 (07:04→20:15)
[2019-05-24] MEDS: Metoclopramide 10 MG/2 ML SDV IVPUSH SCH ×2 (07:44→15:59)
[2019-05-24] MEDS: Potassium Phos in 0.9 % NaCl 15 MMOL in Premix Bag 1 BAG IV SCH ×8 (07:46→13:45)
[2019-05-24] MEDS: Magnesium Sulfate/Water 2 GM in Premix Bag 1 BAG IV SCH ×3 (07:50→20:19)
[2019-05-24] MEDS: Potassium Chloride 20 MEQ Tab.ER PO SCH ×2 (07:53→17:11)
[2019-05-24] MEDS: Furosemide 20 MG/2 ML VIAL IVPUSH SCH ×3 (07:58→17:11)
[2019-05-24] MEDS: Docusate Sodium 100 MG Cap PO SCH ×2 (08:06→20:21)
[2019-05-24] MEDS: Citalopram 10 MG Tab PO SCH (08:06)
[2019-05-24] MEDS: Loratadine 10 MG Tab.DIS PO SCH (08:06)
[2019-05-24] MEDS: amLODIPine 5 MG Tab PO SCH (08:06)
--- NOTE | 2019-05-24 08:15 | PN ---
DATE OF SERVICE: 05/22/2019 The patient has been afebrile with stable vital signs. She did move her bowels this morning. She was a little bit nauseated overnight, this appears better today, and will start a clear liquid diet today. If she tolerates this, we will add some Ensure High Protein this afternoon and then progress from there. We will continue to augment the bowel activity with the IV Zithromax. Otherwise, her BNP is quite high. At this point, we will give her some Lasix twice this morning. Potassium is marginally low and that will be supplemented as well. We will back down the IV rate to near keep open. Otherwise, maximize activity and work with pulmonary toilet. Christiano Estrada MD /[id number]
--- NOTE | 2019-05-24 09:17 | PCM.CONSN ---
- General Info Date of Service: 05/24/19 Subjective Update: There were no acute events overnight. The patient has remained in a sinus rhythm with rates in the 90s and 100s. She has not had any fevers. She has not had a recurrence of her SVT. Abdominal pain is well controlled. She is tolerating her diet. Blood pressures have been stable. Functional Status: Reports: Pain Controlled, Tolerating Diet - Review of Systems General: Denies: Fever - Patient Data Vitals - Most Recent: Last Vital Signs Temp 36.4 C 05/24/19 08:00 Pulse 108 H 05/24/19 07:04 Resp 12 05/24/19 08:00 BP 146/78 H 05/24/19 08:06 Pulse Ox 98 05/24/19 08:00 Weight - Most Recent: 44.452 kg I&O - Last 24 Hours: Intake & Output 05/23/19 05/24/19 05/24/19 22:59 06:59 14:59 Intake Total 841 636 Output Total 100 450 Balance 741 186 Lab Results Last 24 Hours: Laboratory Results - last 24 hr 05/24/19 05/24/19 Range/Units 04:30 04:30 WBC 9.7 (4.5-11.0) K/uL RBC 3.67 (3.30-5.50) M/uL Hgb 12.3 D (12.0-15.0) g/dL Hct 37.1 (36.0-48.0) % MCV 101 H (80-98) fL MCH 34 H (27-31) pg MCHC 33 (32-36) % Plt Count 283 (150-400) K/uL Sodium 131 L (140-148) mmol/L Potassium 3.8 (3.6-5.2) mmol/L Chloride 93 L (100-108) mmol/L Carbon Dioxide 26 (21-32) mmol/L Anion Gap 15.8 H (5.0-14.0) mmol/L BUN 10 (7-18) mg/dL Creatinine 0.7 (0.6-1.0) mg/dL Est Cr Clr Drug Dosing 45.73 mL/min Estimated GFR (MDRD) > 60 (>60) Glucose 102 (74-106) mg/dL Calcium 9.2 (8.5-10.1) mg/dL Phosphorus 2.3 L (2.5-4.9) mg/dL Magnesium 1.6 L (1.8-2.4) mg/dL Total Bilirubin 0.9 (0.2-1.0) mg/dL AST 24 (15-37) U/L ALT 29 (12-78) U/L Alkaline Phosphatase 108 (46-116) U/L NT-Pro-B Natriuret Pep 81713 H (5-450) pg/mL Total Protein 7.2 (6.4-8.2) g/dL Albumin 2.9 L (3.4-5.0) g/dL Globulin 4.3 H (2.3-3.5) g/dL Albumin/Globulin Ratio 0.7 L (1.2-2.2) Med Orders - Current: Current Medications Acetaminophen (Tylenol) 650 mg PO Q6H [facility] Last Admin: 05/24/19 04:23 Dose: 650 mg Albuterol/Ipratropium (Duoneb 3.0-0.5 Mg/3 Ml) 3 ml INH QIDRT [facility] Last Admin: 05/24/19 07:04 Dose: 3 ml Albuterol/Ipratropium (Duoneb 3.0-0.5 Mg/3 Ml) 3 ml INH ASDIRECTED PRN PRN Reason: BREATHING Last Admin: 05/20/19 09:06 Dose: 3 ml Amlodipine Besylate (Norvasc) 5 mg PO DAILY [facility] Last Admin: 05/24/19 08:06 Dose: 5 mg Citalopram Hydrobromide (Celexa) 10 mg PO DAILY [facility] Last Admin: 05/24/19 08:06 Dose: 10 mg Clonazepam (Klonopin) 0.25 mg PO BEDTIME [facility] Last Admin: 05/23/19 21:31 Dose: 0.25 mg Cyclobenzaprine HCl (Flexeril) 10 mg PO Q8H PRN PRN Reason: Muscle Spasm Last Admin: 05/23/19 23:45 Dose: 10 mg Docusate Sodium (Colace) 100 mg PO BID [facility] Last Admin: 05/24/19 08:06 Dose: 100 mg Furosemide (Lasix) 20 mg IVPUSH Q5H [facility] Stop: 05/24/19 18:01 Last Admin: 05/24/19 07:58 Dose: 20 mg Hydromorphone HCl (Dilaudid) 2 mg PO Q4H PRN PRN Reason: Pain Hydroxyzine HCl (Vistaril) 75 mg IM Q4H PRN PRN Reason: pain Azithromycin 125 mg/ Sodium (Chloride) 100 mls @ 100 mls/hr IV Q12H [facility] Last Admin: 05/24/19 02:44 Dose: 100 mls/hr Potassium Phosphate 15 mmol/ (Premix) 250 mls @ 125 mls/hr IV Q2H [facility] Stop: 05/24/19 15:59 Last Admin: 05/24/19 07:46 Dose: 125 mls/hr Magnesium Sulfate 2 gm/ Premix 50 mls @ 25 mls/hr IV Q6H [facility] Stop: 05/26/19 03:59 Last Admin: 05/24/19 07:50 Dose: 25 mls/hr Loratadine (Claritin Reditabs) 10 mg PO DAILY [facility] Last Admin: 05/24/19 08:06 Dose: 10 mg Metoclopramide HCl (Reglan) 10 mg IVPUSH Q8H [facility] Last Admin: 05/24/19 07:44 Dose: 10 mg Metoprolol Tartrate (Lopressor) 25 mg PO BID [facility] Ondansetron HCl (Zofran) 4 mg IVPUSH Q4H PRN PRN Reason: Nausea/Vomiting Last Admin: 05/22/19 20:30 Dose: 4 mg Pantoprazole Sodium (Protonix) 40 mg PO Q24H [facility] Last Admin: 05/23/19 15:57 Dose: 40 mg Potassium Chloride (Klor-Con M20) 20 meq PO BIDMEALS [facility] Stop: 05/24/19 17:01 Last Admin: 05/24/19 07:53 Dose: 20 meq Saliva Substitute (Kalen-Stir Oral Swisher) 0 ml MUCMEM ASDIRECTED PRN PRN Reason: DRY MOUTH Discontinued Medications Acetaminophen (Tylenol Extra Strength) 1,000 mg PO ONETIME ONE Stop: 05/18/19 08:01 Last Admin: 05/18/19 08:23 Dose: 1,000 mg Adenosine (Adenocard) Confirm Administered Dose 18 mg .ROUTE .STK-MED ONE Stop: 05/23/19 09:44 Last Admin: 05/23/19 10:05 Dose: Not Given Albuterol/Ipratropium (Duoneb 3.0-0.5 Mg/3 Ml) 3 ml NEB ONETIME ONE Stop: 05/18/19 09:01 Last Admin: 05/18/19 08:25 Dose: 3 ml Alvimopan (Entereg) 12 mg PO ONETIME ONE Stop: 05/18/19 08:01 Last Admin: 05/18/19 08:36 Dose: 12 mg Alvimopan (Entereg) 12 mg PO BID [facility] Stop: 05/25/19 09:01 Last Admin: 05/21/19 20:41 Dose: 12 mg Bisacodyl (Dulcolax) 5 mg PO BID [facility] Last Admin: 05/22/19 20:05 Dose: Not Given Bupivacaine HCl (Marcaine 0.5%) Confirm Administered Dose 50 ml .ROUTE .STK-MED ONE Stop: 05/20/19 06:41 Last Admin: 05/20/19 11:02 Dose: 20 ml Bupivacaine HCl (Marcaine 0.5%) Confirm Administered Dose 50 ml .ROUTE .STK-MED ONE Stop: 05/20/19 06:42 Neomycin/Polymyxin 1 ml/ (Sodium Chloride 200 ml) 0 ml .XX ONETIME ONE Stop: 05/18/19 10:01 Last Admin: 05/18/19 15:30 Dose: Not Given Neomycin/Polymyxin 1 ml/ (Sodium Chloride 750 ml) 0 ml IRR ONETIME ONE Stop: 05/18/19 10:01 Last Admin: 05/18/19 15:30 Dose: Not Given Ropivacaine 22 ml/Dexamethasone 8 mg/Epinephrine HCl 0.4 mg/ Sodium Chloride 55.6 ml 0 ml NERVRT ASDIRECTED [facility] Last Admin: 05/20/19 11:04 Dose: 80 syringe Dexamethasone (Dexamethasone) Confirm Administered Dose 4 mg .ROUTE .STK-MED ONE Stop: 05/18/19 07:08 Fentanyl (Sublimaze) Confirm Administered Dose 250 mcg .ROUTE .STK-MED ONE Stop: 05/18/19 07:11 Fentanyl (Sublimaze) Confirm Administered Dose 100 mcg .ROUTE .STK-MED ONE Stop: 05/18/19 10:15 Furosemide (Lasix) 10 mg IVPUSH ONETIME ONE Stop: 05/19/19 11:31 Last Admin: 05/19/19 11:46 Dose: 10 mg Furosemide (Lasix) 10 mg IVPUSH ONETIME ONE Stop: 05/20/19 08:01 Last Admin: 05/20/19 08:02 Dose: 10 mg Furosemide (Lasix) 10 mg IVPUSH ONETIME ONE Stop: 05/20/19 14:01 Last Admin: 05/20/19 13:06 Dose: 10 mg Furosemide (Lasix) 20 mg IVPUSH ONETIME ONE Stop: 05/21/19 07:46 Furosemide (Lasix) 20 mg IVPUSH ONETIME ONE Stop: 05/21/19 12:01 Last Admin: 05/21/19 11:46 Dose: 20 mg Furosemide (Lasix) 20 mg IVPUSH ONETIME ONE Stop: 05/22/19 06:42 Last Admin: 05/22/19 08:39 Dose: 20 mg Furosemide (Lasix) 20 mg IVPUSH ONETIME ONE Stop: 05/22/19 12:01 Last Admin: 05/22/19 12:26 Dose: 20 mg Furosemide (Lasix) 20 mg IVPUSH Q7H [facility] Stop: 05/23/19 16:01 Last Admin: 05/23/19 16:51 Dose: 20 mg Glycopyrrolate (Robinul) Confirm Administered Dose 1 mg .ROUTE .STK-MED ONE Stop: 05/18/19 07:08 Hydroxyzine HCl (Vistaril) 50 mg IM ONETIME ONE Stop: 05/18/19 13:32 Last Admin: 05/18/19 13:37 Dose: 50 mg Dextrose/Lactated Ringer's (Dextrose 5%-Lactated Ringers) 1,000 mls @ 100 mls/ hr IV ASDIRECTED [facility] Last Admin: 05/18/19 08:23 Dose: 100 mls/hr Cefoxitin Sodium 2 gm/ Sodium (Chloride) 50 mls @ 100 mls/hr IV ONETIME ONE Stop: 05/18/19 09:59 Last Admin: 05/18/19 17:37 Dose: Not Given Fentanyl 2,500 mcg/ Sodium (Chloride) 250 mls @ 0 mls/hr EPIDUR TITRATE NAH[facility]; Protocol Last Admin: 05/20/19 21:55 Dose: 8 mls/hr, 8 mls/hr Sodium Chloride (Normal Saline) Confirm Administered Dose 10 mls @ as directed .ROUTE .STK-MED ONE Stop: 05/18/19 10:15 Lactated Ringer's (Ringers, Lactated) Confirm Administered Dose 1,000 mls @ as directed .ROUTE .STK-MED ONE Stop: 05/18/19 11:50 Dextrose/Lactated Ringer's (Dextrose 5%-Lactated Ringers) 1,000 mls @ 150 mls/ hr IV ASDIRECTED [facility] Naloxone HCl 0.4 mg/ Dextrose/ (Lactated Ringer's) 1,001 mls @ 100 mls/hr IV .Q10H1M [facility] Stop: 05/19/19 15:30 Last Admin: 05/19/19 18:14 Dose: Not Given Lactated Ringer's (Ringers, Lactated) 500 mls @ 500 mls/hr IV .BOLUS ONE Stop: 05/18/19 17:46 Last Admin: 05/18/19 16:54 Dose: 500 mls/hr Lactated Ringer's (Ringers, Lactated) 500 mls @ 500 mls/hr IV .BOLUS [facility] Stop: 05/18/19 18:00 Last Admin: 05/18/19 17:52 Dose: 500 mls/hr Lactated Ringer's (Ringers, Lactated) 500 mls @ 500 mls/hr IV .BOLUS [facility] Last Admin: 05/19/19 02:52 Dose: 500 mls/hr Magnesium Sulfate 2 gm/ Premix 50 mls @ 25 mls/hr IV Q6H [facility] Stop: 05/22/19 04:59 Last Admin: 05/22/19 02:50 Dose: 25 mls/hr Naloxone HCl 0.4 mg/ Dextrose/ (Lactated Ringer's) 1,001 mls @ 100 mls/hr IV .Q10H1M [facility] Last Admin: 05/19/19 19:41 Dose: Not Given Naloxone HCl 0.4 mg/ Dextrose/ (Lactated Ringer's) 1,001 mls @ 100 mls/hr IV .Q10H1M [facility] Stop: 05/20/19 10:45 Last Admin: 05/20/19 04:31 Dose: 100 mls/hr Potassium Chloride 20 meq/Lidocaine HCl 2 ml/ Sodium Chloride 112 mls @ 56 mls/ hr IV ONETIME ONE Stop: 05/20/19 11:59 Last Admin: 05/20/19 10:55 Dose: 56 mls/hr Naloxone HCl 0.4 mg/ Potassium (Chloride/Dextrose/Sod Cl) 1,001 mls @ 80 mls/ hr IV .[id number] [facility] Last Admin: 05/21/19 13:13 Dose: Not Given Potassium Chloride/Dextrose/Sod Cl (D5 Ns With 20 Meq Kcl) 1,000 mls @ 60 mls/ hr IV ASDIRECTED [facility] Last Admin: 05/21/19 13:30 Dose: 60 mls/hr Potassium Chloride/Dextrose/Sod Cl (D5 Ns With 20 Meq Kcl) 1,000 mls @ 40 mls/ hr IV ASDIRECTED [facility] Potassium Chloride 20 meq/Lidocaine HCl 2 ml/ Sodium Chloride 112 mls @ 56 mls/ hr IV ONETIME ONE Stop: 05/22/19 11:59 Last Admin: 05/22/19 09:53 Dose: 56 mls/hr Potassium Chloride 20 meq/Lidocaine HCl 2 ml/ Sodium Chloride 112 mls @ 56 mls/ hr IV Q2H [facility] Stop: 05/23/19 14:59 Last Admin: 05/23/19 13:51 Dose: 56 mls/hr Ibuprofen (Motrin) 400 mg PO Q6H [facility] Last Admin: 05/24/19 02:47 Dose: Not Given Lidocaine/Epinephrine (Xylocaine 1% With Epinephrine 1:100,000) Confirm Administered Dose 50 ml .ROUTE .STK-MED ONE Stop: 05/20/19 06:42 Last Admin: 05/20/19 11:02 Dose: 20 ml Meropenem (Merrem) Confirm Administered Dose 500 mg .ROUTE .STK-MED ONE Stop: 05/18/19 08:54 Last Admin: 05/18/19 11:16 Dose: 500 mg Meropenem (Merrem) Confirm Administered Dose 500 mg .ROUTE .STK-MED ONE Stop: 05/20/19 06:41 Last Admin: 05/20/19 11:03 Dose: 500 mg Metoclopramide HCl (Reglan) 10 mg IVPUSH Q8H [facility] Last Admin: 05/22/19 22:06 Dose: 10 mg Metoprolol Tartrate (Lopressor) 12.5 mg PO BID [facility] Last Admin: 05/23/19 09:11 Dose: 12.5 mg Metoprolol Tartrate (Lopressor) 12.5 mg PO Q6H [facility] Last Admin: 05/24/19 04:24 Dose: 12.5 mg Naloxone HCl (Narcan) 0.1 mg IVPUSH Q5M PRN PRN Reason: RESP RATE LESS THAN 6/MINUTE Naloxone HCl (Narcan) 0.2 mg IVPUSH ONETIME ONE Stop: 05/18/19 15:48 Last Admin: 05/18/19 15:45 Dose: 0.2 mg Neostigmine Methylsulfate (Neostigmine) Confirm Administered Dose 5 mg .ROUTE .STK-MED ONE Stop: 05/18/19 07:08 Ondansetron HCl (Zofran) Confirm Administered Dose 4 mg .ROUTE .STK-MED ONE Stop: 05/18/19 07:08 Pantoprazole Sodium (Protonix Iv) 40 mg IVPUSH Q24H [facility] Last Admin: 05/22/19 15:21 Dose: 40 mg Potassium Chloride (Klor-Con M20) 20 meq PO TIDMEALS [facility] Stop: 05/22/19 17:01 Last Admin: 05/22/19 17:38 Dose: 20 meq Potassium Chloride (Klor-Con M20) 20 meq PO BIDMEALS [facility] Stop: 05/23/19 17:01 Last Admin: 05/23/19 16:52 Dose: 20 meq Propofol (Diprivan 20 Ml) Confirm Administered Dose 200 mg .ROUTE .STK-MED ONE Stop: 05/18/19 07:08 Propofol (Diprivan 20 Ml) Confirm Administered Dose 200 mg .ROUTE .STK-MED ONE Stop: 05/20/19 07:19 Rocuronium [place] (Zemuron) Confirm Administered Dose 50 mg .ROUTE .STK-MED ONE Stop: 05/18/19 07:08 Succinylcholine Chloride (Quelicin) Confirm Administered Dose 200 mg .ROUTE .STK -MED ONE Stop: 05/18/19 07:08 - Exam Quality Assessment: No: Supplemental Oxygen General: Alert, Oriented, Cooperative Lungs: Clear to Auscultation, Normal Respiratory Effort Cardiovascular: Regular Rhythm, Tachycardia GI/Abdominal Exam: Soft, No Distention Extremities: No Pedal Edema Psy/Mental Status: Alert, Normal Affect Sepsis Event Note - Evaluation Sepsis Screening Result: No Definite Risk - Focused Exam Vital Signs: Vital Signs Temp Pulse Pulse Resp BP BP Pulse Ox 05/24/19 08:06 146/78 H 05/24/19 08:00 36.4 C 12 146/78 H 98 05/24/19 07:04 108 H 05/24/19 06:00 24 H 156/79 H 99 05/24/19 04:24 99 149/78 H 05/24/19 04:00 36.6 C 23 H 149/78 H 97 05/24/19 02:00 24 H 140/79 98 05/24/19 00:00 36.1 C 21 H 144/81 H 97 05/23/19 22:00 24 H 151/87 H 97 05/23/19 21:30 104 H 143/83 H Pulse Ox 05/24/19 08:06 05/24/19 08:00 05/24/19 07:04 98 05/24/19 06:00 05/24/19 04:24 05/24/19 04:00 05/24/19 02:00 05/24/19 00:00 05/23/19 22:00 05/23/19 21:30 Date Exam was Performed: 05/24/19 Time Exam was Performed: 10:34 Consult PN Assessment/Plan Procedures: Procedures AIRWAY INHALATION TREATMENT (09/03/18) ASSAY OF GENTAMICIN (09/03/18) ASSAY OF LACTIC ACID (11/15/18) ASSAY OF MAGNESIUM (09/03/18) ASSAY OF NATRIURETIC PEPTIDE (09/03/18) ASSAY OF PHOSPHORUS (09/03/18) ASSAY OF VANCOMYCIN (09/03/18) ASSAY THYROID STIM HORMONE (09/03/18) BLOOD CULTURE FOR BACTERIA (09/03/18) BLOOD GASES ANY COMBINATION (09/03/18) BLOOD TRANSFUSION SERVICE (09/03/18) BLOOD TYPING SEROLOGIC ABO (09/03/18) BLOOD TYPING SEROLOGIC RH(D) (09/03/18) C-REACTIVE PROTEIN (11/15/18) COMPATIBILITY TEST ANTIGLOB (09/03/18) COMPATIBILITY TEST SPIN (09/03/18) COMPLETE CBC AUTOMATED (11/10/18) COMPLETE CBC W/AUTO DIFF WBC (11/15/18) COMPREHEN METABOLIC PANEL (11/15/18) CT ABD & PELV W/CONTRAST (11/15/18) CT ABD & PELVIS W/O CONTRAST (09/03/18) CULTR BACTERIA EXCEPT BLOOD (09/03/18) CULTURE AEROBIC IDENTIFY (09/03/18) CULTURE OTHR SPECIMN AEROBIC (09/03/18) CYTOPATH CELL ENHANCE TECH (09/03/18) EMERGENCY DEPT VISIT (12/03/18) EMERGENCY DEPT VISIT (11/15/18) EMERGENCY DEPT VISIT (09/03/18) FUNGUS ISOLATION CULTURE (09/03/18) HEPATIC FUNCTION PANEL (09/03/18) HYDRATE IV INFUSION ADD-ON (09/03/18) HYDRATION IV INFUSION INIT (11/15/18) INSERT TEMP BLADDER CATH (09/03/18) LACTATE (LD) (LDH) ENZYME (09/03/18) METABOLIC PANEL TOTAL CA (11/10/18) MICROBE SUSCEPTIBLE DERECK (09/03/18) MYCOBACTERIA CULTURE (09/03/18) OCCULT BLD FECES 1-3 TESTS (09/03/18) ORTHOTIC MGMT&TRAING 1ST ENC (09/03/18) OT EVAL LOW COMPLEX 30 MIN (09/03/18) POS AIRWAY PRESSURE CPAP (09/03/18) PT EVAL HIGH COMPLEX 45 MIN (09/03/18) PULMONARY SERVICE/PROCEDURE (09/03/18) RBC ANTIBODY SCREEN (09/03/18) ROUTINE VENIPUNCTURE (11/15/18) SMEAR FLUORESCENT/ACID STAI (09/03/18) SMEAR GRAM STAIN (09/03/18) SPECIMEN INFECT AGNT CONCNTJ (09/03/18) THER/PROPH/DIAG IV INF INIT (09/03/18) THERAPEUTIC ACTIVITIES (09/03/18) THERAPEUTIC EXERCISES (09/03/18) TISSUE EXAM BY PATHOLOGIST (09/03/18) TISSUE EXAM BY PATHOLOGIST (09/03/18) TISSUE EXAM FOR FUNGI (09/03/18) TTE W/DOPPLER COMPLETE (09/03/18) TX/PRO/DX INJ NEW DRUG ADDON (09/03/18) TX/PRO/DX INJ SAME DRUG TECHNICAL MANAGER CHEMICAL PLANT (09/03/18) URINALYSIS AUTO W/SCOPE (11/15/18) VENT MGMT INPAT INIT DAY (09/03/18) VENT MGMT INPAT SUBQ DAY (09/03/18) WITHDRAWAL OF ARTERIAL BLOOD (09/03/18) X-RAY EXAM CHEST 1 VIEW (09/03/18) X-RAY EXAM COMPLETE ABDOMEN (11/15/18) Problem List Initiated/Reviewed/Updated: Yes My Orders Last 24 Hours: My Active Orders 05/24/19 09:00 Metoprolol Tartrate [Lopressor] 25 mg PO BID 05/24/19 09:15 Transfer Patient (Change bed) [ADT] Routine 05/24/19 09:16 Telemetry Monitoring [Cardiac Monitoring] [RC] .As Directed Plan: ASSESSMENT AND RECOMMENDATIONS SUPRAVENTRICULAR TACHYCARDIA-abrupt onset 05/23 with resolution prior to any intervention. There has been no recurrence. She is tolerating an increase in her beta-hank. Volume status improving and potassium level is normal today. -Continue cardiac monitoring overnight -Metoprolol 25 mg twice daily -Diuresis as below -Echocardiogram planned for today to rule out structural heart disease STATUS POST COLOSTOMY TAKEDOWN-doing well postoperatively -Postoperative care per Dr. Estrada HYPOKALEMIA-still low but improved with supplementation. -Potassium replacement as ordered by Dr. Estrada -Repeat potassium level in a.m. FLUID OVERLOAD-still mild volume overload, mostly in the form of pulmonary vascular congestion. Aggressive diuresis ordered today. -IV diuretic therapy as ordered by Dr. Estrada Patient is safe for transfer out of the intensive care unit. Medically she is stable and improving and the hospitalist service will sign off at this time. I would anticipate discharge to home in the near future. Santana Cunningham MD
[2019-05-24] MEDS: Pantoprazole 40 MG Tab.CR PO SCH (15:58)
[2019-05-24] MEDS: ClonazePAM 0.5 MG Tab PO SCH (20:27)
[2019-05-25] MEDS: Metoclopramide 10 MG/2 ML SDV IVPUSH SCH ×4 (00:49→23:41)
[2019-05-25] MEDS: Magnesium Sulfate/Water 2 GM in Premix Bag 1 BAG IV SCH ×4 (01:05→19:25)
[2019-05-25] MEDS: Acetaminophen 325 MG Tab PO SCH ×4 (04:27→23:10)
[2019-05-25] MEDS: Albuterol/Ipratropium 3.0-0.5 MG/3 ML Neb Soln INH SCH ×4 (07:19→20:52)
[2019-05-25] MEDS: Docusate Sodium 100 MG Cap PO SCH ×2 (08:30→20:52)
[2019-05-25] MEDS: Loratadine 10 MG Tab.DIS PO SCH (08:30)
[2019-05-25] MEDS: Citalopram 10 MG Tab PO SCH (08:30)
[2019-05-25] MEDS: amLODIPine 5 MG Tab PO SCH (08:31)
[2019-05-25] MEDS: traMADol 50 MG Tab PO SCH ×3 (08:31→19:24)
[2019-05-25] MEDS: Metoprolol Tartrate 25 MG Tab PO SCH ×2 (08:31→20:53)
[2019-05-25] MEDS: Potassium Chloride 20 MEQ, Lidocaine 1% 2 ML in Sodium Chloride 0.9% 100 ML IV SCH ×3 (08:44→12:24)
[2019-05-25] MEDS: Azithromycin 125 MG in Sodium Chloride 0.9% 100 ML IV SCH ×2 (08:45→21:46)
--- NOTE | 2019-05-25 09:52 | PN ---
DATE OF SERVICE: 05/25/2019 SUBJECTIVE: Tina is passing flatus. She has had a bowel movement. Vital signs have been stable with a temperature max of 100.2 at 2200 on 05/24/2019. Up, ambulating. Oral intake 720. REVIEW OF SYSTEMS: Remainder of review of systems negative for any pertinent positives and negatives. LABORATORY DATA: Hemoglobin 11.1. Sodium 129. BNP is 21,538. Albumin 2.6. OBJECTIVE: GENERAL: Tina Muniz is a pleasant 78-year-old female. She is quite uncomfortable right now, having quite a bit of pain. VITAL SIGNS: TPR is 99.4, 110, 18, blood pressure 131/56. HEENT: Negative. NECK: Supple. HEART: Regular rate and rhythm. LUNGS: Clear. ABDOMEN: Aquacel dressing is on. Abdominal binder on. EXTREMITIES: Without peripheral edema. ASSESSMENT: 1. Extensive diverticular disease involving descending colon: 2. Extensive intraabdominal adhesions. 3. Left tube and ovary adherent to pelvic sidewall. 4. 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 Date of surgery: 05/18/2019. 5. Delayed primary closure for open abdominal incision x2, 05/20/2019. PLAN: 1. Consult dietitian for increasing protein supplements. 2. Physical therapy evaluation and treat for postop weakness, strength and conditioning. 3. Check CBC, CMP, phos, and BNP in a.m. 4. Lasix 20 mg IV push b.i.d. today. 5. Potassium chloride 20 mEq with lidocaine and normal saline IV x3 for a total of 60 mEq. 6. Tramadol 50 mg p.o. q.6 hours scheduled. 7. We will evaluate p.r.n. or in a.m. Aleta Harper PA-C /[id number]
[2019-05-25] MEDS: Furosemide 20 MG/2 ML VIAL IVPUSH SCH ×2 (10:10→20:52)
[2019-05-25] MEDS: Pantoprazole 40 MG Tab.CR PO SCH (16:42)
[2019-05-25] MEDS: ClonazePAM 0.5 MG Tab PO SCH (20:52)
[2019-05-26] MEDS: Magnesium Sulfate/Water 2 GM in Premix Bag 1 BAG IV SCH (02:23)
[2019-05-26] MEDS: traMADol 50 MG Tab PO SCH ×4 (02:23→20:21)
[2019-05-26] MEDS: Acetaminophen 325 MG Tab PO SCH ×4 (03:54→22:15)
[2019-05-26] MEDS: Albuterol/Ipratropium 3.0-0.5 MG/3 ML Neb Soln INH SCH ×4 (07:15→20:20)
[2019-05-26] MEDS ORDERED: Potassium Chloride 40 MEQ, Lidocaine 1% 2 ML in Sodium Chloride 0.9% 100 ML IV ONE (08:00)
[2019-05-26] MEDS ORDERED: Furosemide 20 MG/2 ML VIAL IVPUSH ONE (08:00)
[2019-05-26] MEDS: Azithromycin 125 MG in Sodium Chloride 0.9% 100 ML IV SCH ×2 (08:56→20:22)
[2019-05-26] MEDS: Metoclopramide 10 MG/2 ML SDV IVPUSH SCH ×3 (09:00→23:48)
[2019-05-26] MEDS: Citalopram 10 MG Tab PO SCH (09:05)
[2019-05-26] MEDS: Loratadine 10 MG Tab.DIS PO SCH (09:05)
[2019-05-26] MEDS: Docusate Sodium 100 MG Cap PO SCH ×2 (09:09→20:21)
[2019-05-26] MEDS: amLODIPine 5 MG Tab PO SCH (09:10)
[2019-05-26] MEDS: Metoprolol Tartrate 25 MG Tab PO SCH ×2 (09:11→20:21)
--- NOTE | 2019-05-26 09:38 | PN ---
DATE OF SERVICE: 05/24/2019 The patient has been afebrile with heart rate at around 100. She developed atrial fibrillation with a rate around 150 yesterday, was moved down to the ICU. By the time she got down there, she converted then. Dr. Vazquez moved up the Lopressor dose to 12.5 mg q.6 hours and she is, at this point, stable. She appears to be diuresing quite actively, although her BNP still is higher again, but from a respiratory standpoint looks quite good. We will continue to augment diuresis today. She had 640 mL of liquids in yesterday and no significant nausea. With this, I think we will order a regular diet, so she can simply order what appears to be palatable off of the menu. The labs showed hemoglobin up to 12.3, white count is 9.7. Sodium and chloride are still low but improving. Phosphate is low and we will give her some K-Phos today, as well as some additional KCl while she is receiving the Lasix. She may be able to go upstairs today, per the hospitalist. Christiano Estrada MD /[id number]
[2019-05-26] MEDS: Potassium Chloride 20 MEQ, Lidocaine 1% 2 ML in Sodium Chloride 0.9% 100 ML IV SCH ×2 (09:54→12:10)
--- NOTE | 2019-05-26 13:02 | PN ---
DATE OF SERVICE: 05/26/2019 SUBJECTIVE: Tina's vital signs have been stable. She has had a temperature max of 99.3. Oral intake has greatly improved. Her oral intake was 1235 and urine output is 1850. Up ambulating in her room. She has no other concerns or questions. LABORATORY DATA: White count is 17.2. Potassium 3.4. BNP is 8330. OBJECTIVE: GENERAL: Tina Muniz is a 78-year-old female. She is alert and orientated. VITAL SIGNS: TPR from 02:25; 99.3, 90, 18, blood pressure 140/68. HEENT: Negative. NECK: Supple. HEART: Regular rate and rhythm. LUNGS: Revealed decreased breath sounds in bases, a few rales bilaterally. ABDOMEN: Aquacel dressings were taken off over former colostomy site. There is some superficial bruising. [place] intact. Incision is healing well. Abdomen is rounded, which is normal for her and soft. Abdominal binder has been on. EXTREMITIES: Without peripheral edema. ASSESSMENT: 1. Extensive diverticular disease involving descending colon. 2. Extensive intraabdominal adhesions. 3. Left tube and ovary adherent to pelvic sidewall. 4. 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 Date of surgery: 05/18/2019. 5. Delayed primary closure for open abdominal incision x2, 05/20/2019. PLAN: 1. Discharge to home tentatively, 05/29/2019, with home health care. 2. Lasix 20 mg IV 1 time now. 3. KCl 40 mEq IV in normal saline with lidocaine 1 time today. 4. Check CBC, CMP, phosphorus, and BNP in a.m. Check UA, culture and sensitivity today. 5. Good pulmonary toilet. 6. We will evaluate p.r.n. or in a.m. Aleta Harper PA-C /[id number]
[2019-05-26] MEDS: Pantoprazole 40 MG Tab.CR PO SCH (16:28)
[2019-05-26] MEDS: ClonazePAM 0.5 MG Tab PO SCH (20:20)
[2019-05-27] MEDS: traMADol 50 MG Tab PO SCH ×4 (02:36→19:56)
[2019-05-27] MEDS: Acetaminophen 325 MG Tab PO SCH ×4 (03:15→21:48)
[2019-05-27] MEDS: Albuterol/Ipratropium 3.0-0.5 MG/3 ML Neb Soln INH SCH ×4 (07:21→20:38)
[2019-05-27] MEDS: Metoclopramide 10 MG/2 ML SDV IVPUSH SCH ×2 (07:28→17:10)
[2019-05-27] MEDS ORDERED: Furosemide 20 MG/2 ML VIAL IVPUSH ONE (08:00)
[2019-05-27] MEDS ORDERED: Potassium Chloride 20 MEQ, Lidocaine 1% 2 ML in Sodium Chloride 0.9% 100 ML IV ONE (10:00)
[2019-05-27] MEDS: Docusate Sodium 100 MG Cap PO SCH ×2 (10:07→20:17)
[2019-05-27] MEDS: Citalopram 10 MG Tab PO SCH (10:07)
[2019-05-27] MEDS: Loratadine 10 MG Tab.DIS PO SCH (10:07)
[2019-05-27] MEDS: Metoprolol Tartrate 25 MG Tab PO SCH ×2 (10:08→20:39)
[2019-05-27] MEDS: amLODIPine 5 MG Tab PO SCH (10:09)
--- NOTE | 2019-05-27 14:47 | PN ---
[place]DATE OF SERVICE: 05/27/2019 SUBJECTIVE: Tina has been up, had a large bowel movement yesterday. She has been up, ambulating. Pain has been controlled. Temperature max 99.4. She has no concerns or questions today. LABORATORY DATA: White count 17,000, hemoglobin is 10. Sodium 131, potassium 3.9. BNP is 7082. REVIEW OF SYSTEMS: Remainder of review of systems negative for any pertinent positives and negatives. OBJECTIVE: GENERAL: Tina Muniz is a 78-year-old female. She is alert and orientated. VITAL SIGNS: TPR 99.2. 95, 18, blood pressure 142/66. HEENT: Negative. NECK: Supple. HEART: Regular rate and rhythm. LUNGS: Clear. ABDOMEN: Jonnathan intact. Incisions healing well. Soft, minimally tender. EXTREMITIES: Without peripheral edema. ASSESSMENT: 1. Extensive diverticular disease involving descending colon. 2. Extensive intraabdominal adhesions. 3. Left tube and ovary adherent to pelvic sidewall. 4. Status end colostomy and Rsoa pouch and paracolostomy hernia. Date of surgery: 05/18/2019. 5. Delayed primary closure for open abdominal incision x2, 05/20/2019. PLAN: 1. Check CBC, CMP, mag, phos, and BNP in a.m. 2. Lasix 20 mg IV 1 time. 3. KCl 20 mEq IV to mix the normal saline 1 time. 4. Plan discharge to [facility] with home health care in a.m. 5. We will evaluate p.r.n. or in a.m. Aleta Harper PA-C /[id number]
[2019-05-27] MEDS: Pantoprazole 40 MG Tab.CR PO SCH (17:11)
[2019-05-27] MEDS: ClonazePAM 0.5 MG Tab PO SCH (20:38)
[2019-05-28] MEDS: Metoclopramide 10 MG/2 ML SDV IVPUSH SCH ×2 (00:30→08:08)
[2019-05-28] MEDS: traMADol 50 MG Tab PO SCH ×3 (01:18→12:57)
[2019-05-28] MEDS: Acetaminophen 325 MG Tab PO SCH ×2 (04:14→10:42)
[2019-05-28] MEDS: Albuterol/Ipratropium 3.0-0.5 MG/3 ML Neb Soln INH SCH (07:44)
[2019-05-28] MEDS: Docusate Sodium 100 MG Cap PO SCH (08:10)
[2019-05-28] MEDS: Metoprolol Tartrate 25 MG Tab PO SCH (08:10)
[2019-05-28] MEDS: amLODIPine 5 MG Tab PO SCH (08:11)
[2019-05-28] MEDS: Citalopram 10 MG Tab PO SCH (08:18)
[2019-05-28] MEDS: Loratadine 10 MG Tab.DIS PO SCH (08:18)
--- NOTE | 2019-05-28 15:28 | DISCH ---
ADMISSION DIAGNOSES: 1. 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 2. Essential hypertension. 3. Generalized anxiety disorder. 4. Chronic hyponatremia. 5. Osteoporosis. 6. Bilateral nonexudative macular degeneration. DISCHARGE DIAGNOSES: 1. Status end colostomy and Rosa pouch. 2. Paracolostomy hernia. POSTOPERATIVE DIAGNOSES: 1. Status end colostomy and Rosa pouch. 2. Paracolostomy hernia. 3. Extensive diverticular disease involving descending colon. 4. Extensive intraabdominal adhesions. 5. Left tube and ovary adherent to pelvic sidewall. 6. Date of surgery: 05/18/2019. Surgeon: Christiano Estrada MD. HISTORY: The patient underwent a sigmoid colon resection for perforated diverticulitis last August. She was acutely ill for a period of time, required a tracheostomy and was able to get off the ventilator. She presents for takedown of her colostomy. After preoperative evaluation and discussion of possible risks and possible complications, she wished to proceed with surgical procedure. HOSPITAL COURSE: Tina had her surgery on 05/18/2019. She had no operative complications. On 05/20/2019, she had a delayed primary closure for open abdominal incisions x2. Vital signs did remain stable, and her pain was controlled. On 05/23/2019, she developed an episode of supraventricular tachycardia and she was monitored by the hospitalist in ICU. She was asymptomatic. Her metoprolol was increased and hypokalemia was corrected with IV potassium. Throughout her hospitalization, labs were monitored. She was given Lasix for an elevated BNP, along with replacement of potassium. Vital signs remained stable, labs were adjusted appropriately, and she started having bowel movements. Oral intake was adequate as well as urine output. On 05/28/2019, she was able to be discharged to home with home health care, physical therapy and occupational therapy. PHYSICAL EXAMINATION: GENERAL: Tina Muniz is a pleasant 78-year-old female. VITAL SIGNS: Height is 5 feet 2 inches. Weight is 98 pounds. 98.9, 95, 16, blood pressure 159/75. HEENT: Negative. NECK: Supple. HEART: Regular rate and rhythm. LUNGS: Clear. ABDOMEN: Two stapled incisions look good. The staple line is superficially bruised, but very soft. Abdomen is very soft. Abdominal binder has been on. EXTREMITIES: Without peripheral edema. DISPOSITION: Discharged to home. CONDITION: Stable and improving. FOLLOWUP: Appointment with Christiano Estrada MD, at [facility] on 06/02/2019 at 9:15 a.m. She is to have a CBC, CMP, and BNP prior to that appointment. HOME MEDICATIONS: 1. Tylenol 650 mg every 6 hours p.r.n. pain. 2. Colace 100 mg oral twice daily #60 with 11 refills. 3. Tramadol 50 mg q.6 hours p.r.n. severe pain, #30. 4. Lasix 20 mg p.o. daily for 7 days. 5. Micro K 40 mEq p.o. daily x7 days. 6. To resume home medications of: a. Albuterol sulfate 3 mL inhalation every 6 hours p.r.n. wheezing. b. Fosamax 70 mg oral weekly. c. Aspirin 81 mg oral daily. d. Calcium with vitamin D3 1 daily. e. Citalopram hydrobromide/Celexa 10 mg daily. f. Clonazepam 0.25 mg oral at bedtime. g. Vitamin B complex 1 oral daily. h. Glucosamine chondroitin twice daily. i. Magnesium oxide 400 mg oral daily. j. Melatonin 5 mg oral at bedtime. k. Metoprolol tartrate 12.5 mg oral twice daily. l. Omeprazole 20 mg oral daily. m. Metamucil fiber single packet 1 packet daily. n. Vitamin C. o. Vitamin E. p. Zinc. q. Copper. r. Lutein. s. Zeaxan. t. Preservision. u. Softgels 1 oral twice daily. I. Norvasc 5 mg oral daily. DIET: Usual diet as tolerated. Drink 8 to 10 glasses of water a day. ACTIVITY: No lifting greater than 10 pounds for 6 weeks. Other activity: Walk at least 6 times daily. Driving: Do not drive for 1 week and while on tramadol. Shower/bathing: May shower. No tub bathing or swimming for 8 weeks. DISCHARGE INSTRUCTIONS: Notify provider if any fever, increased pain, drainage, nausea, or vomiting. Wound incision: Keep site clean and dry. Wear abdominal binder for 6 weeks. Use incentive spirometer 10 times every hour while awake.
== END 2019-05-28 13:00 | disposition home health service (06) | DRG 345 ==
LOC: JP.SDS 07:47 → JP.SDSSCHI 07:47 → EDSTATUS 10:15 → JP.2SS 13:20 → JP.ICU 05-23 09:09 → JP.MS 05-24 15:16
PROVIDERS: ADMIT Hospitalist; ATTEND Hospitalist
PROC: 0DSN0ZZ Reposition Sigmoid Colon, Open Approach (ICD-10-PCS; principal; 2019-05-18)
PROC: 0WQF0ZZ Repair Abdominal Wall, Open Approach (ICD-10-PCS; 2019-05-18)
PROC: 30233N1 Transfusion of Nonautologous Red Blood Cells into Peripheral Vein, Percutaneous Approach (ICD-10-PCS; 2019-05-19)
DX: Z43.3 Encounter for attention to colostomy (principal); I47.1 Supraventricular tachycardia; K43.5 Parastomal hernia without obstruction or gangrene; H54.7 Unspecified visual loss; I10 Essential (primary) hypertension; M81.0 Age-related osteoporosis without current pathological fracture; I48.91 Unspecified atrial fibrillation; M19.90 Unspecified osteoarthritis, unspecified site; E03.9 Hypothyroidism, unspecified; H35.3130 Nonexudative age-related macular degeneration, bilateral, stage unspecified; E87.6 Hypokalemia; E87.70 Fluid overload, unspecified; E83.39 Other disorders of phosphorus metabolism; K66.0 Peritoneal adhesions (postprocedural) (postinfection); Z98.49 Cataract extraction status, unspecified eye; Z85.819 Personal history of malignant neoplasm of unspecified site of lip, oral cavity, and pharynx; Z79.51 Long term (current) use of inhaled steroids; Z88.8 Allergy status to other drugs, medicaments and biological substances; Z87.891 Personal history of nicotine dependence; Z79.899 Other long term (current) drug therapy; Z79.82 Long term (current) use of aspirin
CPT/HCPCS: 36415; 36430; 80053; 81001; 83735; 83880; 84100; 85025; 85027; 85610; 86850; 86900; 86901; 86920; 86922; 87086; 88302; 88304; 88305; 88307; 93005; 94640; 94667; 94668; 94762; 97110-GP; 97162-GP; 97530-GP; A9270-GY; C9113; J0171; J0330; J0456; J0694; J1100; J1940; J2001; J2185; J2310; J2405; J2704; J2710; J2765; J2795; J3010; J3410; J3475; J3480; J3490; J7050; J7120; J7121; J7620-GY; P9016

== ENCOUNTER 2021-03-20 06:59 | Observation (INO) | payer MEDICARE, OTHER ==
[2021-03-20] MEDS ORDERED: HYDROmorphone 0.5 MG/0.5 ML Syringe IVPUSH ONE ×2 (07:06→10:53)
--- NOTE | 2021-03-20 07:51 | EDM.PDOC ---
ED HPI GENERAL MEDICAL PROBLEM - General Chief Complaint: Lower Extremity Injury/Pain Stated Complaint: MEDICAL [facility] Time Seen by Provider: 03/20/21 07:05 Source of Information: Reports: Patient, RN Notes Reviewed History Limitations: Reports: No Limitations - History of Present Illness INITIAL COMMENTS - FREE TEXT/NARRATIVE: 80-year-old female presents emergency department today complaint of right hip pain, she states she fell last night worried she may have broken her hip she has pain in her right hip leg area. She states she laid on the ground all of last night. Right Hip Pain Score (Numeric/FACES): 10 - Related Data Allergies Allergy/AdvReac Type Severity Reaction Status Date / Time naproxen [From Aleve] AdvReac Nausea and Verified 03/20/21 09:05 Vomiting Home Meds: Home Meds Acetaminophen 650 mg PO Q4H PRN 11/15/18 [History] Omeprazole 20 mg PO DAILY 11/15/18 [History] amLODIPine [Norvasc] 2.5 mg PO DAILY 11/15/18 [History] Citalopram Hydrobromide [Celexa] 10 mg PO DAILY 05/13/19 [History] Cyanocobalamin/FA/Pyridoxine [B Complex-Folic Acid] 1 each PO DAILY 05/13/19 [History] Aspirin [Halfprin] 81 mg PO DAILY 05/18/19 [History] Calcium Carbonate/Vitamin D3 [Calcium 600-Vit D3 800 Tablet] 1 each PO DAILY 05/18/19 [History] Glucosam/Chondr/Collagn/Hyalur [Glucosamine & Chondroitin Cap] 1 each PO BID 05/18/19 [History] Magnesium Oxide 400 mg PO DAILY 05/18/19 [History] Vit C/E/Zn/Coppr/Lutein/Zeaxan [Preservision Areds 2 Softgel] 1 each PO BID 05/18/19 [History] Docusate Sodium [Colace] 100 mg PO BID #60 cap 05/27/19 [Rx] Metoprolol Succinate 25 mg PO DAILY 03/20/21 [History] Past Medical History HEENT History: Reports: Cataract, Impaired Vision, Macular Degeneration Cardiovascular History: Reports: Hypertension, Other (See Below) Other Cardiovascular History: son reports patient had to be defibrillated after at anti-anxiety medication caused her QR interval to be too long. 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: Musculoskeletal History: Reports: Arthritis, Fracture Psychiatric History: Reports: Anxiety Endocrine/Metabolic History: Reports: Hypothyroidism Hematologic History: Reports: Blood Transfusion(s) Oncologic (Cancer) History: Reports: Other (See Below) Other Oncologic History: tonsil/oral - Infectious Disease History Infectious Disease History: Reports: Chicken Pox, Measles, Mumps - Past Surgical History HEENT Surgical History: Reports: Cataract Surgery Other HEENT Surgeries/Procedures: 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l Cardiovascular Surgical History: Reports: None GI Surgical History: Reports: Colonoscopy, Other (See Below) Female Surgical History: Reports: Breast Biopsy Endocrine Surgical History: Reports: None Musculoskeletal Surgical History: Reports: Other (See Below) Other Musculoskeletal Surgeries/Procedures:: pins in left hip Social & Family History - Family History Oncologic: Reports: Hodgkin's Lymphoma - Caffeine Use Caffeine Use: Reports: Coffee, Soda Review of Systems - Review of Systems Review Of Systems: See Below Respiratory: Reports: No Symptoms Cardiovascular: Reports: No Symptoms Genitourinary: Reports: Incontinence Musculoskeletal: Reports: Joint Pain ED EXAM, GENERAL - Physical Exam Exam: See Below Free Text/Narrative:: Examination of the right hip there is some bruising over the greater trochanter she complains of tenderness to palpation of the greater trochanter as well as the femur midshaft will not tolerate any flexion extension or rotation of that leg Exam Limited By: No Limitations General Appearance: Alert, Mild Distress Respiratory/Chest: No Respiratory Distress, Lungs Clear, Normal Breath Sounds, No Accessory Muscle Use Cardiovascular: Regular Rate, Rhythm, No Murmur Course - Vital Signs Last Recorded V/S: Last Vital Signs Temp 98.7 F 03/21/21 02:55 Pulse 83 03/21/21 02:55 Resp 18 03/21/21 02:55 BP 147/63 H 03/21/21 02:55 Pulse Ox 96 03/21/21 02:55 - Orders/Labs/Meds Orders: Active Orders 24 hr Category Date Time Status Up With Assistance [RC] ASDIRECTED Care 03/20/21 11:15 Active Vital Signs [RC] Q4H Care 03/20/21 11:15 Active Consult to Occupational Therapy [OT Evaluation and Cons 03/20/21 12:29 Active Treatment] [CONS] Routine PT Evaluation and Treatment [CONS] Routine Cons 03/20/21 12:29 Active Regular Diet [DIET] Diet 03/20/21 Lunch Active Acetaminophen [Tylenol] Med 03/20/21 11:18 Active 650 mg PO Q4H PRN Acetaminophen/oxyCODONE [Percocet 325-5 MG] Med 03/20/21 16:56 Active 1 tab PO Q6H PRN Aspirin [Halfprin] Med 03/20/21 11:30 Active 81 mg PO DAILY Calcium Carbonate/Vitamin D3 [Caltrate 600+D 1500 MG- Med 03/20/21 12:00 Active 400 Units] 1 tab PO DAILY Citalopram [Celexa] Med 03/20/21 12:00 Active 10 mg PO DAILY Cyanocobalamin (Vitamin B12) [Vitamin B12] Med 03/20/21 11:00 Active 1,000 mcg PO DAILY Docusate Sodium [Colace] Med 03/20/21 11:30 Active 100 mg PO BID Glucosam/Chondr/Collagn/Hyalur [Glucosamine & Med 03/20/21 11:30 Active Chondroitin Cap] 1 each PO BID HYDROmorphone [Dilaudid] Med 03/20/21 11:21 Active 0.5 mg IVPUSH Q4H PRN Magnesium Oxide Med 03/20/21 11:30 Active 400 mg PO DAILY Metoprolol Succinate [Toprol XL] Med 03/20/21 12:00 Active 25 mg PO DAILY Pantoprazole [ProTONIX] Med 03/20/21 12:00 Active 40 mg PO ACBREAKFAST Vit C/E/Zn/Coppr/Lutein/Zeaxan [Preservision Areds 2 Med 03/20/21 11:30 Active Softgel] 1 each PO BID amLODIPine [Norvasc] Med 03/20/21 11:30 Active 2.5 mg PO DAILY Medication Orders Acetaminophen (Acetaminophen Soln 650 Mg/20.3 Ml Ud Cup) 650 mg PO Q4H PRN PRN Reason: Pain Amlodipine Besylate (Amlodipine 5 Mg Tab) 2.5 mg PO DAILY [facility] Last Admin: 03/20/21 12:27 Dose: 5 mg Documented by: PREILOR Aspirin (Aspirin 81 Mg Tab.Ec) 81 mg PO DAILY [facility] Last Admin: 03/20/21 12:26 Dose: 81 mg Documented by: PREILOR Calcium Carbonate (Calcium Carbonate/Vitamin D3 1500 Mg-400 Units Tab) 1 tab PO DAILY [facility] Last Admin: 03/20/21 12:26 Dose: 1 tab Documented by: PREILOR Citalopram Hydrobromide (Citalopram 10 Mg Tab) 10 mg PO DAILY [facility] Last Admin: 03/20/21 12:26 Dose: 10 mg Documented by: PREILOR Cyanocobalamin (Cyanocobalamin (Vitamin B12) 1,000 Mcg Tab) 1,000 mcg PO DAILY [facility] Last Admin: 03/20/21 12:26 Dose: 1,000 mcg Documented by: PREILOR Diphenhydramine HCl (Diphenhydramine 25 Mg Cap) 25 mg PO BEDTIME PRN PRN Reason: Insomnia Docusate Sodium (Docusate Sodium 100 Mg Cap) 100 mg PO BID [facility] Last Admin: 03/20/21 20:43 Dose: Not Given Documented by: Admin: 03/20/21 12:26 Dose: 100 mg Documented by: PREILOR Hydromorphone HCl (Hydromorphone 0.5 Mg/0.5 Ml Syringe) 0.5 mg IVPUSH Q4H PRN PRN Reason: Pain Last Admin: 03/20/21 17:06 Dose: 0.5 mg Documented by: PREILOR Sodium Chloride (Normal Saline) 1,000 mls @ 125 mls/hr IV ASDIRECTED [facility] Last Admin: 03/21/21 03:47 Dose: 125 mls/hr Documented by: Infusion: 03/21/21 03:47 Dose: 125 mls/hr Documented by: Admin: 03/20/21 20:45 Dose: 125 mls/hr Documented by: JUANITA Magnesium Oxide (Magnesium Oxide 400 Mg Tab) 400 mg PO DAILY [facility] Last Admin: 03/20/21 12:26 Dose: 400 mg Documented by: PREILOR Melatonin (Melatonin 3 Mg Tab) 6 mg PO BEDTIME PRN PRN Reason: Insomnia Last Admin: 03/20/21 20:51 Dose: 6 mg Documented by: JUANITA Metoprolol Succinate (Metoprolol Succinate 25 Mg Tab.Er) 25 mg PO DAILY [facility] Last Admin: 03/20/21 12:27 Dose: 25 mg Documented by: PREILOR Morphine Sulfate (Morphine 2 Mg/Ml Syringe) 2 mg IVPUSH Q2H PRN PRN Reason: Pain (severe 7-10) Non-Formulary Medication (Glucosam/Chondr/Collagn/Hyalur [Glucosamine & Chondroitin Cap]) 1 each PO BID [facility] Last Admin: 03/20/21 20:44 Dose: 1 each Documented by: JUANITA Non-Formulary Medication (Vit C/E/Zn/Coppr/Lutein/Zeaxan [Preservision Areds 2 Softgel]) 1 each PO BID [facility] Last Admin: 03/20/21 20:44 Dose: 1 each Documented by: JUANITA Oxycodone/Acetaminophen (Acetaminophen/Oxycodone 325-5 Mg Tab) 1 tab PO Q6H PRN PRN Reason: Pain Last Admin: 03/21/21 03:46 Dose: 1 tab Documented by: Admin: 03/20/21 18:57 Dose: 1 tab Documented by: BLAKEILMAXIMUS Pantoprazole Sodium (Pantoprazole 40 Mg Tab.Cr) 40 mg PO ACBREAKFAST [facility] Last Admin: 03/20/21 12:26 Dose: 40 mg Documented by: BLAKEILMAXIMUS Labs: Laboratory Tests 03/20/21 03/20/21 03/20/21 Range/Units 07:06 07:15 07:15 WBC 11.0 (4.5-11.0) K/uL RBC 2.40 L (3.30-5.50) M/uL Hgb 8.4 L D (12.0-15.0) g/dL Hct 24.2 L (36.0-48.0) % MCV 101 H (80-98) fL MCH 35 H (27-31) pg MCHC 35 (32-36) % Plt Count 126 L (150-400) K/uL Neut % (Auto) 88.2 H (36-66) % Lymph % (Auto) 2.0 L (24-44) % [place] % (Auto) 9.7 H (2-6) % Eos % (Auto) 0.0 L (2-4) % Baso % (Auto) 0.1 (0-1) % Sodium (140-148) mmol/L Potassium (3.6-5.2) mmol/L Chloride (100-108) mmol/L Carbon Dioxide (21-32) mmol/L Anion Gap (5.0-14.0) mmol/L BUN (7-18) mg/dL Creatinine (0.6-1.0) mg/dL Est Cr Clr Drug Dosing mL/min Estimated GFR (MDRD) (>60) Glucose (74-106) mg/dL Calcium (8.5-10.1) mg/dL Total Bilirubin (0.2-1.0) mg/dL AST (15-37) U/L ALT (12-78) U/L Alkaline Phosphatase (46-116) U/L Creatine Kinase 461 H (26-192) U/L Total Protein (6.4-8.2) g/dL Albumin (3.4-5.0) g/dL Globulin (2.3-3.5) g/dL Albumin/Globulin Ratio (1.2-2.2) Influenza Type A RNA Negative (NEGATIVE) RSV RNA (INAAT) Negative (NEGATIVE) Influenza Type B RNA Negative (NEGATIVE) SARS-CoV-2 RNA (TIFF) Negative (NEGATIVE) 03/20/21 Range/Units 07:15 WBC (4.5-11.0) K/uL RBC (3.30-5.50) M/uL Hgb (12.0-15.0) g/dL Hct (36.0-48.0) % MCV (80-98) fL MCH (27-31) pg MCHC (32-36) % Plt Count (150-400) K/uL Neut % (Auto) (36-66) % Lymph % (Auto) (24-44) % [place] % (Auto) (2-6) % Eos % (Auto) (2-4) % Baso % (Auto) (0-1) % Sodium 130 L (140-148) mmol/L Potassium 4.3 (3.6-5.2) mmol/L Chloride 89 L (100-108) mmol/L Carbon Dioxide 24 (21-32) mmol/L Anion Gap 21.3 H (5.0-14.0) mmol/L BUN 14 (7-18) mg/dL Creatinine 0.9 (0.6-1.0) mg/dL Est Cr Clr Drug Dosing 35.10 mL/min Estimated GFR (MDRD) > 60 (>60) Glucose 160 H (74-106) mg/dL Calcium 9.4 (8.5-10.1) mg/dL Total Bilirubin 2.7 H D (0.2-1.0) mg/dL AST 72 H D (15-37) U/L ALT 59 (12-78) U/L Alkaline Phosphatase 81 (46-116) U/L Creatine Kinase (26-192) U/L Total Protein 7.1 (6.4-8.2) g/dL Albumin 3.9 (3.4-5.0) g/dL Globulin 3.2 (2.3-3.5) g/dL Albumin/Globulin Ratio 1.2 (1.2-2.2) Influenza Type A RNA (NEGATIVE) RSV RNA (INAAT) (NEGATIVE) Influenza Type B RNA (NEGATIVE) SARS-CoV-2 RNA (TIFF) (NEGATIVE) Meds: Medications Generic Name Dose Route Start Last Admin Trade Name Freq PRN Reason Stop Dose Admin Acetaminophen 650 mg 03/20/21 11:18 Acetaminophen Soln 650 Mg/20.3 Ml Ud Cup PO Q4H PRN Pain Amlodipine Besylate 2.5 mg 03/20/21 11:30 03/20/21 12:27 Amlodipine 5 Mg Tab PO 5 mg DAILY NAHED Administration Aspirin 81 mg 03/20/21 11:30 03/20/21 12:26 Aspirin 81 Mg Tab.Ec PO 81 mg DAILY NAHED Administration Calcium Carbonate 1 tab 03/20/21 12:00 03/20/21 12:26 Calcium Carbonate/Vitamin D3 1500 Mg-400 Units Tab PO 1 tab DAILY NAHED Administration Citalopram Hydrobromide 10 mg 03/20/21 12:00 03/20/21 12:26 Citalopram 10 Mg Tab PO 10 mg DAILY NAHED Administration Cyanocobalamin 1,000 mcg 03/20/21 11:00 03/20/21 12:26 Cyanocobalamin (Vitamin B12) 1,000 Mcg Tab PO 1,000 mcg DAILY NAHED Administration Diphenhydramine HCl 25 mg 03/20/21 20:14 Diphenhydramine 25 Mg Cap PO BEDTIME PRN Insomnia Docusate Sodium 100 mg 03/20/21 11:30 03/20/21 20:43 Docusate Sodium 100 Mg Cap PO Not Given BID NAHED Hydromorphone HCl 0.5 mg 03/20/21 11:21 03/20/21 17:06 Hydromorphone 0.5 Mg/0.5 Ml Syringe IVPUSH 0.5 mg Q4H PRN Administration Pain Sodium Chloride 1,000 mls @ 125 mls/hr 03/20/21 20:14 03/21/21 03:47 Normal Saline IV 125 mls/hr ASDIRECTED NAHED Administration Magnesium Oxide 400 mg 03/20/21 11:30 03/20/21 12:26 Magnesium Oxide 400 Mg Tab PO 400 mg DAILY NAHED Administration Melatonin 6 mg 03/20/21 20:14 03/20/21 20:51 Melatonin 3 Mg Tab PO 6 mg BEDTIME PRN Administration Insomnia Metoprolol Succinate 25 mg 03/20/21 12:00 03/20/21 12:27 Metoprolol Succinate 25 Mg Tab.Er PO 25 mg DAILY NAHED Administration Morphine Sulfate 2 mg 03/20/21 20:14 Morphine 2 Mg/Ml Syringe IVPUSH Q2H PRN Pain (severe 7-10) Non-Formulary Medication 1 each 03/20/21 11:30 03/20/21 20:44 Glucosam/Chondr/Collagn/Hyalur [Glucosamine & Chondroitin Cap] PO 1 each BID NAHED Administration Non-Formulary Medication 1 each 03/20/21 11:30 03/20/21 20:44 Vit C/E/Zn/Coppr/Lutein/Zeaxan [Preservision Areds 2 Softgel] PO 1 each BID NAHED Administration Oxycodone/Acetaminophen 1 tab 03/20/21 16:56 03/21/21 03:46 Acetaminophen/Oxycodone 325-5 Mg Tab PO 1 tab Q6H PRN Administration Pain Pantoprazole Sodium 40 mg 03/20/21 12:00 03/20/21 12:26 Pantoprazole 40 Mg Tab.Cr PO 40 mg ACBREAKFAST NAHED Administration Discontinued Medications Generic Name Dose Route Start Last Admin Trade Name Freq PRN Reason Stop Dose Admin Hydromorphone HCl 0.5 mg 03/20/21 07:06 03/20/21 07:35 Hydromorphone 0.5 Mg/0.5 Ml Syringe IVPUSH 03/20/21 07:07 0.5 mg ONETIME ONE Administration Hydromorphone HCl 0.5 mg 03/20/21 10:53 03/20/21 11:06 Hydromorphone 0.5 Mg/0.5 Ml Syringe IVPUSH 03/20/21 10:54 0.5 mg ONETIME ONE Administration Sodium Chloride 1,000 mls @ 250 mls/hr 03/20/21 09:15 03/20/21 10:30 Normal Saline IV 250 mls/hr ASDIRECTED NAHED Administration Oxycodone/Acetaminophen 1 tab 03/20/21 12:30 03/20/21 12:38 Acetaminophen/Oxycodone 325-5 Mg Tab PO 1 tab Q6H PRN Administration Pain Departure - Departure Time of Disposition: 07:15 Disposition: Admitted As Inpatient 65 Clinical Impression: Pelvic fracture Qualifiers: Encounter type: initial encounter Pelvic bone location: other part of pelvis Fracture type: closed Qualified Code(s): S32.89XA - Fracture of other parts of pelvis, initial encounter for closed fracture - Discharge Information - My Orders Last 24 Hours: My Active Orders 03/20/21 11:00 Cyanocobalamin (Vitamin B12) [Vitamin B12] 1,000 mcg PO DAILY 03/20/21 11:15 Up With Assistance [RC] ASDIRECTED Vital Signs [RC] Q4H 03/20/21 11:18 Acetaminophen [Tylenol] 650 mg PO Q4H PRN 03/20/21 11:21 HYDROmorphone [Dilaudid] 0.5 mg IVPUSH Q4H PRN 03/20/21 11:30 Aspirin [Halfprin] 81 mg PO DAILY Docusate Sodium [Colace] 100 mg PO BID Glucosam/Chondr/Collagn/Hyalur [Glucosamine & Chondroitin Cap] 1 each PO BID Magnesium Oxide 400 mg PO DAILY Vit C/E/Zn/Coppr/Lutein/Zeaxan [Preservision Areds 2 Softgel] 1 each PO BID amLODIPine [Norvasc] 2.5 mg PO DAILY 03/20/21 Lunch Regular Diet [DIET] Calcium Carbonate/Vitamin D3 [Caltrate 600+D 1500 MG-400 Units] 1 tab PO DAILY Citalopram [Celexa] 10 mg PO DAILY Metoprolol Succinate [Toprol XL] 25 mg PO DAILY Pantoprazole [ProTONIX] 40 mg PO ACBREAKFAST 03/20/21 12:29 Consult to Occupational Therapy [OT Evaluation and Treatment] [CONS] Routine PT Evaluation and Treatment [CONS] Routine 03/20/21 16:56 Acetaminophen/oxyCODONE [Percocet 325-5 MG] 1 tab PO Q6H PRN - Assessment/Plan Last 24 Hours: My Active Orders 03/20/21 11:00 Cyanocobalamin (Vitamin B12) [Vitamin B12] 1,000 mcg PO DAILY 03/20/21 11:15 Up With Assistance [RC] ASDIRECTED Vital Signs [RC] Q4H 03/20/21 11:18 Acetaminophen [Tylenol] 650 mg PO Q4H PRN 03/20/21 11:21 HYDROmorphone [Dilaudid] 0.5 mg IVPUSH Q4H PRN 03/20/21 11:30 Aspirin [Halfprin] 81 mg PO DAILY Docusate Sodium [Colace] 100 mg PO BID Glucosam/Chondr/Collagn/Hyalur [Glucosamine & Chondroitin Cap] 1 each PO BID Magnesium Oxide 400 mg PO DAILY Vit C/E/Zn/Coppr/Lutein/Zeaxan [Preservision Areds 2 Softgel] 1 each PO BID amLODIPine [Norvasc] 2.5 mg PO DAILY 03/20/21 Lunch Regular Diet [DIET] Calcium Carbonate/Vitamin D3 [Caltrate 600+D 1500 MG-400 Units] 1 tab PO DAILY Citalopram [Celexa] 10 mg PO DAILY Metoprolol Succinate [Toprol XL] 25 mg PO DAILY Pantoprazole [ProTONIX] 40 mg PO ACBREAKFAST 03/20/21 12:29 Consult to Occupational Therapy [OT Evaluation and Treatment] [CONS] Routine PT Evaluation and Treatment [CONS] Routine 03/20/21 16:56 Acetaminophen/oxyCODONE [Percocet 325-5 MG] 1 tab PO Q6H PRN Plan: assessment: pelvic fx plan: admit
[2021-03-20 08:22] LABS: CORONAVIRUS COVID-19 NAA NEGATIVE (NEGATIVE)
--- NOTE | 2021-03-20 08:37 | CRLCR ---
For Patients: As a result of the Century Cures Act, medical imaging exams and procedure reports are released immediately into your electronic medical record. You may view this report before your referring provider. If you have questions, please contact your health care provider. Indication: Fall, pain Comparison: None available. Technique: Single AP view pelvis with AP view right hip Findings: There are mildly comminuted fractures of the right superior inferior pubic rami. Otherwise, the femoral heads are seated in the acetabulum with prior internal fixation of the proximal left femur. Degenerative changes seen of the bilateral hips in sacroiliac joints are seen. The soft tissues are unremarkable. Impression: Mildly comminuted fractures of the right superior inferior pubic rami with associated soft tissue swelling. Dictated by Beto Duffy MD @ 03/20/2021 8:36:32 AM (Electronically Signed)
[2021-03-20] MEDS ORDERED: Sodium Chloride 0.9% 1,000 ML IV SCH (09:15)
[2021-03-20] MEDS ORDERED: Cyanocobalamin (Vitamin B12) 1,000 MCG Tab PO SCH (11:00)
[2021-03-20] MEDS ORDERED: Acetaminophen Soln 650 MG/20.3 ML UD Cup PO PRN (11:18)
[2021-03-20] MEDS ORDERED: CALCIUM CARBONATE PO SCH (11:30)
[2021-03-20] MEDS ORDERED: CITALOPRAM HYDROBROMIDE 20 MG PO SCH (11:30)
[2021-03-20] MEDS ORDERED: Metoprolol Tartrate 25 MG Tab PO SCH (11:30)
[2021-03-20] MEDS ORDERED: Aspirin 81 MG Tab.EC PO SCH (11:30)
[2021-03-20] MEDS ORDERED: Non-Formulary Medication 1 Each (Cyanocobalamin/Fa/Pyridoxine [B Complex-Folic Acid] 1 EAC PO SCH (11:30)
[2021-03-20] MEDS ORDERED: amLODIPine 5 MG Tab PO SCH (11:30)
[2021-03-20] MEDS ORDERED: Magnesium Oxide 400 MG Tab PO SCH (11:30)
[2021-03-20] MEDS ORDERED: Non-Formulary Medication 1 Each (Vit C/E/Zn/Coppr/Lutein/Zeaxan [Preservision Areds 2 Soft PO SCH (11:30)
[2021-03-20] MEDS ORDERED: Non-Formulary Medication 1 Each (Glucosam/Chondr/Collagn/Hyalur [Glucosamine & Chondroitin PO SCH (11:30)
[2021-03-20] MEDS ORDERED: [UNRECOGNIZED DRUG - OTHER] PO SCH (11:30)
[2021-03-20] MEDS ORDERED: VITAMIN D3 PO SCH (11:30)
[2021-03-20] MEDS ORDERED: Pantoprazole 40 MG Tab.CR PO SCH (12:00)
[2021-03-20] MEDS ORDERED: Citalopram 10 MG Tab PO SCH (12:00)
[2021-03-20] MEDS ORDERED: Metoprolol Succinate 25 MG Tab.ER PO SCH (12:00)
[2021-03-20] MEDS ORDERED: Calcium Carbonate/Vitamin D3 1500 MG-400 Units Tab PO SCH (12:00)
[2021-03-20] MEDS: Docusate Sodium 100 MG Cap PO SCH ×2 (12:26→20:43)
[2021-03-20] MEDS ORDERED: Acetaminophen/oxyCODONE 325-5 MG Tab PO PRN (12:30)
[2021-03-20] MEDS: HYDROmorphone 0.5 MG/0.5 ML Syringe IVPUSH PRN (17:06)
[2021-03-20] MEDS: Acetaminophen/oxyCODONE 325-5 MG Tab PO PRN (18:57)
--- NOTE | 2021-03-20 19:25 | PCM.HP.2 ---
H&P History of Present Illness - General Date of Service: 03/20/21 Admit Problem/Dx: Admission Diagnosis/Problem Admission Diagnosis/Problem Pelvic ring fracture Source of Information: Patient, EMS, Provider, RN History Limitations: Reports: No Limitations - History of Present Illness Initial Comments - Free Text/Narative: chief complaint: fall at [facility], pain in right hip. This is a 80 year old female presents to the ER by EMS after a fall at [facility]. Ms. Muniz reports she slipped and fell at 4:30 pm. in the afternoon and laying on the floor til 6 am, when a Nurse heard her calls for help. She has pain on the right hip/buttocks and right arm. Reports no other concerns, she did not have any injury to her head, no LOC. denies any nausea, vomiting, headache, or other concerns. The Emergency Department worked up shows a mild comminuted fractures right superior inferior pubic rami with associated soft tissue swelling. Symptom Onset Date: 03/19/21 Symptom Onset Time: 16:30 Duration of Symptoms: Reports: Constant Location: Reports: Lower Extremity, Right Quality: Reports: Ache, Sharp Severity: Severe Improves with: Reports: Immobilization Worsens with: Reports: Movement Context: Reports: Trauma (fall at [facility]isted Living [facility]) Associated Symptoms: Reports: Other (right upper arm and elbow pain) Right Hip Pain Score (Numeric/FACES): 4 - Related Data Allergies/Adverse Reactions: Allergies Allergy/AdvReac Type Severity Reaction Status Date / Time naproxen [From Aleve] AdvReac Nausea and Verified 03/20/21 09:05 Vomiting Home Medications: Home Meds Acetaminophen 650 mg PO Q4H PRN 11/15/18 [History] Omeprazole 20 mg PO DAILY 11/15/18 [History] amLODIPine [Norvasc] 2.5 mg PO DAILY 11/15/18 [History] Citalopram Hydrobromide [Celexa] 10 mg PO DAILY 05/13/19 [History] Cyanocobalamin/FA/Pyridoxine [B Complex-Folic Acid] 1 each PO DAILY 05/13/19 [History] Aspirin [Halfprin] 81 mg PO DAILY 05/18/19 [History] Calcium Carbonate/Vitamin D3 [Calcium 600-Vit D3 800 Tablet] 1 each PO DAILY 05/18/19 [History] Glucosam/Chondr/Collagn/Hyalur [Glucosamine & Chondroitin Cap] 1 each PO BID 05/18/19 [History] Magnesium Oxide 400 mg PO DAILY 05/18/19 [History] Vit C/E/Zn/Coppr/Lutein/Zeaxan [Preservision Areds 2 Softgel] 1 each PO BID 05/18/19 [History] Docusate Sodium [Colace] 100 mg PO BID #60 cap 05/27/19 [Rx] Metoprolol Succinate 25 mg PO DAILY 03/20/21 [History] Past Medical History HEENT History: Reports: Cataract, Impaired Vision, Macular Degeneration Cardiovascular History: Reports: Hypertension, Other (See Below) Other Cardiovascular History: son reports patient had to be defibrillated after at anti-anxiety medication caused her QR interval to be too long. 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: Musculoskeletal History: Reports: Arthritis, Fracture Psychiatric History: Reports: Anxiety Endocrine/Metabolic History: Reports: Hypothyroidism Hematologic History: Reports: Blood Transfusion(s) Oncologic (Cancer) History: Reports: Other (See Below) Other Oncologic History: tonsil/oral - Infectious Disease History Infectious Disease History: Reports: Chicken Pox, Measles, Mumps - Past Surgical History HEENT Surgical History: Reports: Cataract Surgery Other HEENT Surgeries/Procedures: 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l Cardiovascular Surgical History: Reports: None GI Surgical History: Reports: Colonoscopy, Other (See Below) Female Surgical History: Reports: Breast Biopsy Endocrine Surgical History: Reports: None Musculoskeletal Surgical History: Reports: Other (See Below) Other Musculoskeletal Surgeries/Procedures:: pins in left hip Social & Family History - Family History Oncologic: Reports: Hodgkin's Lymphoma - Tobacco Use Tobacco Use Status *Q: Never Tobacco User - Caffeine Use Caffeine Use: Reports: Coffee - Living Situation & Occupation Living situation: Reports: Single, Assisted Living Occupation: Retired (has lived at [facility] for the past two and half years. 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.) H&P Review of Systems - Review of Systems: Review Of Systems: See Below General: Reports: Other (right hip, buttocks and right elbow, right upper arm pain) HEENT: Reports: Glasses (difficulty seeing due to eye disease.) Pulmonary: Reports: No Symptoms Cardiovascular: Reports: No Symptoms Gastrointestinal: Reports: No Symptoms Genitourinary: Reports: Frequency Musculoskeletal: Reports: Arm Pain (right elbow and right upper arm pain and bruising.), Other (right hip and buttocks.) Skin: Reports: Bruising, Wound (skin tear to right elbow) Psychiatric: Reports: No Symptoms Neurological: Reports: No Symptoms Hematologic/Lymphatic: Reports: No Symptoms Immunologic: Reports: No Symptoms Exam - Exam Exam: See Below - Vital Signs Vital Signs: Last Vital Signs Temp 97.3 F 03/20/21 07:03 Pulse 86 03/20/21 18:53 Resp 16 03/20/21 10:33 BP 132/56 L 03/20/21 18:53 Pulse Ox 99 03/20/21 17:53 Weight: 100 lb - Exam Quality Assessment: Supplemental Oxygen, DVT Prophylaxis General: Alert, Oriented, Cooperative, Mild Distress, Other (pleasant, polite, frail appearance.) HEENT: PERRLA, Conjunctiva Clear, EACs Clear, EOMI, Hearing Intact, Mucosa Moist & Opal, Nares Patent, Normal Nasal Septum, Posterior Pharynx Clear, TMs Clear, Glasses, Other (upper dentures) Neck: Supple, Trachea Midline, 2 Lungs: Clear to Auscultation, Normal Respiratory Effort Cardiovascular: Regular Rate, Regular Rhythm GI/Abdominal Exam: Normal Bowel Sounds, Soft, No Organomegaly, No Distention, No Abnormal Bruit, No Mass, Tender, Other (right pelvis and low abdomen pain with palpation) (Female) Exam: Normal External Exam Rectal (Female) Exam: Normal Exam Back Exam: Normal Inspection, Full Range of Motion Extremities: Normal Inspection, No Pedal Edema, Normal Capillary Refill, Arm Pain (right elbow with skin tear and bruising, right upper arm with redness, pain and edema. 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), Normal Speech Neuro Extensive - Mental Status: Alert, Oriented x3, Normal Mood/Affect, Normal Cognition, Memory Intact Neuro Extensive - Motor, Sensory, Reflexes: Motor/Sensory Deficits Psychiatric: Alert, Normal Affect, Normal Mood (pleasant, polite ) - Patient Data Lab Results Last 24 hrs: Laboratory Results - last 24 hr 03/20/21 03/20/21 03/20/21 Range/Units 07:06 07:15 07:15 WBC 11.0 (4.5-11.0) K/uL RBC 2.40 L (3.30-5.50) M/uL Hgb 8.4 L D (12.0-15.0) g/dL Hct 24.2 L (36.0-48.0) % MCV 101 H (80-98) fL MCH 35 H (27-31) pg MCHC 35 (32-36) % Plt Count 126 L (150-400) K/uL Neut % (Auto) 88.2 H (36-66) % Lymph % (Auto) 2.0 L (24-44) % [place] % (Auto) 9.7 H (2-6) % Eos % (Auto) 0.0 L (2-4) % Baso % (Auto) 0.1 (0-1) % Sodium (140-148) mmol/L Potassium (3.6-5.2) mmol/L Chloride (100-108) mmol/L Carbon Dioxide (21-32) mmol/L Anion Gap (5.0-14.0) mmol/L BUN (7-18) mg/dL Creatinine (0.6-1.0) mg/dL Est Cr Clr Drug Dosing mL/min Estimated GFR (MDRD) (>60) Glucose (74-106) mg/dL Calcium (8.5-10.1) mg/dL Total Bilirubin (0.2-1.0) mg/dL AST (15-37) U/L ALT (12-78) U/L Alkaline Phosphatase (46-116) U/L Creatine Kinase 461 H (26-192) U/L Total Protein (6.4-8.2) g/dL Albumin (3.4-5.0) g/dL Globulin (2.3-3.5) g/dL Albumin/Globulin Ratio (1.2-2.2) Influenza Type A RNA Negative (NEGATIVE) RSV RNA (INAAT) Negative (NEGATIVE) Influenza Type B RNA Negative (NEGATIVE) SARS-CoV-2 RNA (TIFF) Negative (NEGATIVE) 03/20/21 Range/Units 07:15 WBC (4.5-11.0) K/uL RBC (3.30-5.50) M/uL Hgb (12.0-15.0) g/dL Hct (36.0-48.0) % MCV (80-98) fL MCH (27-31) pg MCHC (32-36) % Plt Count (150-400) K/uL Neut % (Auto) (36-66) % Lymph % (Auto) (24-44) % [place] % (Auto) (2-6) % Eos % (Auto) (2-4) % Baso % (Auto) (0-1) % Sodium 130 L (140-148) mmol/L Potassium 4.3 (3.6-5.2) mmol/L Chloride 89 L (100-108) mmol/L Carbon Dioxide 24 (21-32) mmol/L Anion Gap 21.3 H (5.0-14.0) mmol/L BUN 14 (7-18) mg/dL Creatinine 0.9 (0.6-1.0) mg/dL Est Cr Clr Drug Dosing 35.10 mL/min Estimated GFR (MDRD) > 60 (>60) Glucose 160 H (74-106) mg/dL Calcium 9.4 (8.5-10.1) mg/dL Total Bilirubin 2.7 H D (0.2-1.0) mg/dL AST 72 H D (15-37) U/L ALT 59 (12-78) U/L Alkaline Phosphatase 81 (46-116) U/L Creatine Kinase (26-192) U/L Total Protein 7.1 (6.4-8.2) g/dL Albumin 3.9 (3.4-5.0) g/dL Globulin 3.2 (2.3-3.5) g/dL Albumin/Globulin Ratio 1.2 (1.2-2.2) Influenza Type A RNA (NEGATIVE) RSV RNA (INAAT) (NEGATIVE) Influenza Type B RNA (NEGATIVE) SARS-CoV-2 RNA (TIFF) (NEGATIVE) Result Diagrams: 03/20/21 07:15 03/20/21 07:15 Sepsis Event Note - Focused Exam Vital Signs: Vital Signs Pulse Pulse Resp BP BP Pulse Ox 03/20/21 18:53 86 132/56 L 03/20/21 17:53 88 99/47 L 99 03/20/21 16:16 85 125/59 L 99 03/20/21 14:51 86 153/60 H 03/20/21 12:35 92 139/65 90 L 03/20/21 12:27 95 150/51 H 03/20/21 11:34 136/58 L 03/20/21 10:33 92 16 117/63 92 L 03/20/21 09:28 90 16 135/71 88 L - Problem List (1) Closed pelvic ring fracture SNOMED Code(s): 01260937 ICD Code: S32.810A - MULTIPLE FX OF PELVIS W STABLE DISRUPT OF PELVIC RING, INIT Status: Acute Priority: High Current Visit: Yes Qualifiers: Encounter type: initial encounter Qualified Code(s): S32.810A - Multiple fractures of pelvis with stable disruption of pelvic ring, initial encounter for closed fracture (2) Status post tracheostomy SNOMED Code(s): 529189050, 774189365 ICD Code: Z93.0 - TRACHEOSTOMY STATUS Status: Acute Priority: Low Current Visit: Yes (3) Essential hypertension SNOMED Code(s): 95230874 ICD Code: I10 - ESSENTIAL (PRIMARY) HYPERTENSION Status: Chronic Priority: Low Current Visit: Yes (4) HAO (generalized anxiety disorder) SNOMED Code(s): 34349425 ICD Code: F41.1 - GENERALIZED ANXIETY DISORDER Status: Chronic Priority: Low Current Visit: Yes (5) Anemia SNOMED Code(s): 679833177 ICD Code: D64.9 - ANEMIA, UNSPECIFIED Status: Acute Priority: Low Current Visit: Yes Qualifiers: Anemia type: unspecified type Qualified Code(s): D64.9 - Anemia, unspecified Problem List Initiated/Reviewed/Updated: Yes Orders Last 24hrs: Active Orders 24 hr Category Date Time Status Patient Status Manage Transfer [TRANSFER] Routine ADT 03/20/21 19:09 Active Patient Status [ADT] Routine ADT 03/20/21 11:15 Active Intake and Output [RC] PER UNIT ROUTINE Care 03/20/21 11:17 Active Oxygen Therapy [RC] PRN Care 03/20/21 11:15 Active Up With Assistance [RC] ASDIRECTED Care 03/20/21 11:15 Active Vital Signs [RC] Q4H Care 03/20/21 11:15 Active Consult to Occupational Therapy [OT Evaluation and Cons 03/20/21 12:29 Active Treatment] [CONS] Routine PT Evaluation and Treatment [CONS] Routine Cons 03/20/21 12:29 Active Regular Diet [DIET] Diet 03/20/21 Lunch Active Acetaminophen [Tylenol] Med 03/20/21 11:18 Active 650 mg PO Q4H PRN Acetaminophen/oxyCODONE [Percocet 325-5 MG] Med 03/20/21 12:30 Active 1 tab PO Q6H PRN Acetaminophen/oxyCODONE [Percocet 325-5 MG] Med 03/20/21 16:56 Active 1 tab PO Q6H PRN Aspirin [Halfprin] Med 03/20/21 11:30 Active 81 mg PO DAILY Calcium Carbonate/Vitamin D3 [Caltrate 600+D 1500 MG- Med 03/20/21 12:00 Active 400 Units] 1 tab PO DAILY Citalopram [Celexa] Med 03/20/21 12:00 Active 10 mg PO DAILY Cyanocobalamin (Vitamin B12) [Vitamin B12] Med 03/20/21 11:00 Active 1,000 mcg PO DAILY Docusate Sodium [Colace] Med 03/20/21 11:30 Active 100 mg PO BID Glucosam/Chondr/Collagn/Hyalur [Glucosamine & Med 03/20/21 11:30 Hold Chondroitin Cap] 1 each PO BID HYDROmorphone [Dilaudid] Med 03/20/21 11:21 Active 0.5 mg IVPUSH Q4H PRN Magnesium Oxide Med 03/20/21 11:30 Active 400 mg PO DAILY Metoprolol Succinate [Toprol XL] Med 03/20/21 12:00 Active 25 mg PO DAILY Pantoprazole [ProTONIX] Med 03/20/21 12:00 Active 40 mg PO ACBREAKFAST Sodium Chloride 0.9% [Normal Saline] 1,000 ml Med 03/20/21 09:15 Active IV ASDIRECTED Vit C/E/Zn/Coppr/Lutein/Zeaxan [Preservision Areds 2 Med 03/20/21 11:30 Hold Softgel] 1 each PO BID amLODIPine [Norvasc] Med 03/20/21 11:30 Active 2.5 mg PO DAILY Isolation [COMM] Stat Oth 03/20/21 07:07 Ordered Resuscitation Status Routine Resus Stat 03/20/21 19:16 Ordered Medication Orders Acetaminophen (Acetaminophen Soln 650 Mg/20.3 Ml Ud Cup) 650 mg PO Q4H PRN PRN Reason: Pain Amlodipine Besylate (Amlodipine 5 Mg Tab) 2.5 mg PO DAILY [facility] Last Admin: 03/20/21 12:27 Dose: 5 mg Documented by: PREILOR Aspirin (Aspirin 81 Mg Tab.Ec) 81 mg PO DAILY [facility] Last Admin: 03/20/21 12:26 Dose: 81 mg Documented by: PREILOR Calcium Carbonate (Calcium Carbonate/Vitamin D3 1500 Mg-400 Units Tab) 1 tab PO DAILY [facility] Last Admin: 03/20/21 12:26 Dose: 1 tab Documented by: PREILOR Citalopram Hydrobromide (Citalopram 10 Mg Tab) 10 mg PO DAILY [facility] Last Admin: 03/20/21 12:26 Dose: 10 mg Documented by: PREILOR Cyanocobalamin (Cyanocobalamin (Vitamin B12) 1,000 Mcg Tab) 1,000 mcg PO DAILY [facility] Last Admin: 03/20/21 12:26 Dose: 1,000 mcg Documented by: PREILOR Docusate Sodium (Docusate Sodium 100 Mg Cap) 100 mg PO BID [facility] Last Admin: 03/20/21 12:26 Dose: 100 mg Documented by: PREILOR Hydromorphone HCl (Hydromorphone 0.5 Mg/0.5 Ml Syringe) 0.5 mg IVPUSH Q4H PRN PRN Reason: Pain Last Admin: 03/20/21 17:06 Dose: 0.5 mg Documented by: PREILOR Sodium Chloride (Normal Saline) 1,000 mls @ 250 mls/hr IV ASDIRECTED [facility] Last Admin: 03/20/21 10:30 Dose: 250 mls/hr Documented by: PREILOR Magnesium Oxide (Magnesium Oxide 400 Mg Tab) 400 mg PO DAILY [facility] Last Admin: 03/20/21 12:26 Dose: 400 mg Documented by: PREILOR Metoprolol Succinate (Metoprolol Succinate 25 Mg Tab.Er) 25 mg PO DAILY [facility] Last Admin: 03/20/21 12:27 Dose: 25 mg Documented by: PREILOR Non-Formulary Medication (Glucosam/Chondr/Collagn/Hyalur [Glucosamine & Chondroitin Cap]) 1 each PO BID NAHED Non-Formulary Medication (Vit C/E/Zn/Coppr/Lutein/Zeaxan [Preservision Areds 2 Softgel]) 1 each PO BID NAHED Oxycodone/Acetaminophen (Acetaminophen/Oxycodone 325-5 Mg Tab) 1 tab PO Q6H PRN PRN Reason: Pain Last Admin: 03/20/21 12:38 Dose: 1 tab Documented by: PREILOR Oxycodone/Acetaminophen (Acetaminophen/Oxycodone 325-5 Mg Tab) 1 tab PO Q6H PRN PRN Reason: Pain Last Admin: 03/20/21 18:57 Dose: 1 tab Documented by: PREILOR Pantoprazole Sodium (Pantoprazole 40 Mg Tab.Cr) 40 mg PO ACBREAKFAST NAHED Last Admin: 03/20/21 12:26 Dose: 40 mg Documented by: PREILOR Assessment/Plan Comment:: ASSESSMENT AND PLAN OF CARE: PELVIC RING FRACTURE, HX OF TRACHEOSTOMY, HYPERTENSION, ANXIETY Pelvic ring fracture from fall at [facility] on 03/19/2021, during exam for admission reports pain in right elbow and right upper arm. examination shows multi bruising and edema. skin tear to right elbow. -consult for Jail placement -consult to PT and OT -pain control- PO and IV -IV fluids for hydration, Normal Saline 125 ml/hr -Protonix 40 mg IV daily -Imaging- pending Xrays of right humerus and right elbow. -am labs cbc, bmp, ua pending. History of Tracheostomy - reports difficulty swallowing pills. does eat a regular diet at home. -needs to have pills crush due to choking hazard Hypertension -continue Outpatient medication Anxiety -continue Outpatient medications Anemia -hemoglobin 8.4, hct 24.2 -recheck CBC in am MAINTENANCE ISSUES -DVT Prophylaxis SCD -GI prophylaxis- Protonix as above -Rubin catheter not indicated -Nutrition Consistent Carb diet -Tobacco- quit smoking 10 years ago. -Consult to OT/PT CODE STATUS DNR/DNI ADMISSION This patient will be admitted to observation status, expect no more than two night hospital stay for evaluation and management of problems outline above. DISPOSITION anticipate discharge to Jail after the hospital stay PRIMARY CARE PROVIDER Dr. Suzanne Moffett. [facility] HOSPITALIST Dr. Vazquez - Mortality Measure Prognosis:: Good
[2021-03-20] MEDS ORDERED: Morphine 2 MG/ML SYRINGE IVPUSH PRN (20:14)
[2021-03-20] MEDS ORDERED: diphenhydrAMINE 25 MG Cap PO PRN (20:14)
[2021-03-20] MEDS ORDERED: Melatonin 3 MG Tab PO PRN (20:14)
[2021-03-20] MEDS: Sodium Chloride 0.9% 1,000 ML IV SCH (20:45)
--- NOTE | 2021-03-20 22:12 | CRLCR ---
For Patients: As a result of the Century Cures Act, medical imaging exams and procedure reports are released immediately into your electronic medical record. You may view this report before your referring provider. If you have questions, please contact your health care provider. HISTORY: Pain and hematoma fall. COMPARISON: Right humerus from today. FINDINGS: The right elbow is examined with AP, lateral, and oblique views. There is no sign of fracture, dislocation, or joint effusion. The soft tissues are normal in appearance without sign of radio-opaque foreign body. No degenerative disease is seen. IMPRESSION: Normal right elbow. Dictated by Maged Parrish MD @ 03/20/2021 10:11:26 PM (Electronically Signed)
--- NOTE | 2021-03-20 22:12 | CRLCR ---
For Patients: As a result of the Cures Act, medical imaging exams and procedure reports are released immediately into your electronic medical record. You may view this report before your referring provider. If you have questions, please contact your health care provider. INDICATION: Pain after fall. COMPARISON: None available. TECHNIQUE: AP and lateral views of the right humerus were obtained for a total of two views. There is no sign of fracture or dislocation. The right shoulder shows no sign of fracture or dislocation. 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 The visualized right elbow is incompletely examined, but appears to be intact. The soft tissue planes are preserved. There is no opaque foreign body. IMPRESSION: No sign of acute osseous injury. 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 Dictated by Maged Parrish MD @ 03/20/2021 10:10:21 PM (Electronically Signed)
[2021-03-21] MEDS: Acetaminophen/oxyCODONE 325-5 MG Tab PO PRN ×3 (03:46→17:35)
[2021-03-21] MEDS: Sodium Chloride 0.9% 1,000 ML IV SCH ×2 (03:47→13:18)
[2021-03-21] MEDS: HYDROmorphone 0.5 MG/0.5 ML Syringe IVPUSH PRN (08:16)
[2021-03-21] MEDS ORDERED: DOCUSATE SODIUM 100 MG PO SCH (09:00)
[2021-03-21] MEDS ORDERED: Metoprolol Succinate 25 MG Tab.ER PO SCH (09:00)
[2021-03-21] MEDS: [UNRECOGNIZED DRUG - OTHER] PO SCH (09:11)
[2021-03-21] MEDS: CHOND PO SCH (09:12)
[2021-03-21] MEDS: SUPER B COMPLEX PO SCH (09:12)
[2021-03-21] MEDS: CITALOPRAM 10 MG PO SCH (09:12)
[2021-03-21] MEDS: OMEPRAZOLE 20MG CAP (PTOM) PO SCH (09:12)
[2021-03-21] MEDS: AMLODIPINE 2.5 MG PO SCH (09:12)
[2021-03-21] MEDS: GLUC PO SCH (09:12)
[2021-03-21] MEDS: Aspirin 81 MG Tab.EC (PTOM) PO SCH (09:12)
[2021-03-21] MEDS: METOPROLOL SUCC 25 MG PO SCH (09:13)
[2021-03-21] MEDS: SYSTANE EYE EYEBOTH SCH ×3 (09:17→20:09)
[2021-03-21] MEDS ORDERED: Potassium Chloride 20 MEQ Tab.ER PO ONE ×2 (09:30→17:00)
--- NOTE | 2021-03-21 13:55 | PCM.PN ---
- General Info Date of Service: 03/21/21 Subjective Update: Ms. Muniz is an 80-year-old woman who is admitted to observation status through the emergency department because of a pelvic fracture. She fell yesterday margret ugarte and was brought into the emergency department. X-rays have documented fractures of the right superior and inferior pubic rami. X-rays have been reviewed by orthopedic surgery. She does not require surgical intervention and can be weightbearing as tolerated. Because of severe pain she is unable to return home and will require senior living placement. Follow-up hemoglobin level has shown a drop to less than 7 and she was transfused 1 unit of red blood cells earlier in her today. - Review of Systems General: Reports: No Symptoms Pulmonary: Reports: No Symptoms Cardiovascular: Reports: No Symptoms Gastrointestinal: Reports: No Symptoms Musculoskeletal: Reports: Other (Pelvic pain) - Patient Data Vitals - Most Recent: Last Vital Signs Temp 98.1 F 03/21/21 10:52 Pulse 80 03/21/21 10:52 Resp 18 03/21/21 10:52 BP 139/62 03/21/21 10:52 Pulse Ox 92 L 03/21/21 10:52 Weight - Most Recent: 105 lb I&O - Last 24 Hours: Intake & Output 03/20/21 03/21/21 03/21/21 22:59 06:59 14:59 Intake Total 1444 572 Output Total 50 Balance 1394 572 Lab Results Last 24 Hours: Laboratory Results - last 24 hr 03/21/21 03/21/21 03/21/21 Range/Units 00:17 05:00 05:06 WBC 8.1 (4.5-11.0) K/uL RBC 1.87 L (3.30-5.50) M/uL Hgb 6.8 L* (12.0-15.0) g/dL Hct 19.6 L (36.0-48.0) % MCV 105 H (80-98) fL MCH 36 H (27-31) pg MCHC 35 (32-36) % Plt Count 96 L (150-400) K/uL Neut % (Auto) (36-66) % Lymph % (Auto) (24-44) % [place] % (Auto) (2-6) % Eos % (Auto) (2-4) % Baso % (Auto) (0-1) % Add Manual Diff Yes Neutrophils % (Manual) 76 H (36-66) % Band Neutrophils % 12 H (5-11) % Lymphocytes % (Manual) 4 L (24-44) % Monocytes % (Manual) 8 H (2-6) % Polychromasia Few Hypochromasia Moderate H Anisocytosis Moderate H Macrocytosis Moderate H Sodium (140-148) mmol/L Potassium (3.6-5.2) mmol/L Chloride (100-108) mmol/L Carbon Dioxide (21-32) mmol/L Anion Gap (5.0-14.0) mmol/L BUN (7-18) mg/dL Creatinine (0.6-1.0) mg/dL Est Cr Clr Drug Dosing mL/min Estimated GFR (MDRD) (>60) Glucose (74-106) mg/dL Calcium (8.5-10.1) mg/dL Urine Color Yellow (YELLOW) Urine Appearance Clear (CLEAR) Urine pH 5.5 (5.0-8.0) Ur Specific [place] 1.020 (1.008-1.030) Urine Protein 100 H (NEGATIVE) mg/dL Urine Glucose (UA) Negative (NEGATIVE) mg/dL Urine Ketones 15 H (NEGATIVE) mg/dL Urine Occult Blood Negative (NEGATIVE) Urine Nitrite Negative (NEGATIVE) Urine Bilirubin Moderate H (NEGATIVE) Urine Urobilinogen 1.0 (0.2-1.0) EU/dL Ur Leukocyte Esterase Trace H (NEGATIVE) Urine RBC 0-5 (0-5) Urine WBC 5-10 H (0-5) Ur Epithelial Cells Few Amorphous Sediment Few Urine Bacteria Moderate Urine Mucus Few Blood Type O POSITIVE Gel Antibody Screen Negative Crossmatch See Detail 03/21/21 03/21/21 Range/Units 05:06 13:00 WBC 9.5 (4.5-11.0) K/uL RBC 2.54 L (3.30-5.50) M/uL Hgb 8.7 L (12.0-15.0) g/dL Hct 25.4 L (36.0-48.0) % MCV 100 H (80-98) fL MCH 34 H (27-31) pg MCHC 34 (32-36) % Plt Count 106 L (150-400) K/uL Neut % (Auto) 85.9 H (36-66) % Lymph % (Auto) 4.9 L (24-44) % [place] % (Auto) 8.7 H (2-6) % Eos % (Auto) 0.4 L (2-4) % Baso % (Auto) 0.1 (0-1) % Add Manual Diff Neutrophils % (Manual) (36-66) % Band Neutrophils % (5-11) % Lymphocytes % (Manual) (24-44) % Monocytes % (Manual) (2-6) % Polychromasia Hypochromasia Anisocytosis Macrocytosis Sodium 136 L (140-148) mmol/L Potassium 3.4 L (3.6-5.2) mmol/L Chloride 98 L (100-108) mmol/L Carbon Dioxide 26 (21-32) mmol/L Anion Gap 15.4 H (5.0-14.0) mmol/L BUN 16 (7-18) mg/dL Creatinine 1.0 (0.6-1.0) mg/dL Est Cr Clr Drug Dosing 33.33 mL/min Estimated GFR (MDRD) 53 L (>60) Glucose 115 H (74-106) mg/dL Calcium 8.5 (8.5-10.1) mg/dL Urine Color (YELLOW) Urine Appearance (CLEAR) Urine pH (5.0-8.0) Ur Specific [place] (1.008-1.030) Urine Protein (NEGATIVE) mg/dL Urine Glucose (UA) (NEGATIVE) mg/dL Urine Ketones (NEGATIVE) mg/dL Urine Occult Blood (NEGATIVE) Urine Nitrite (NEGATIVE) Urine Bilirubin (NEGATIVE) Urine Urobilinogen (0.2-1.0) EU/dL Ur Leukocyte Esterase (NEGATIVE) Urine RBC (0-5) Urine WBC (0-5) Ur Epithelial Cells Amorphous Sediment Urine Bacteria Urine Mucus Blood Type Gel Antibody Screen Crossmatch Med Orders - Current: Current Medications Acetaminophen (Acetaminophen Soln 650 Mg/20.3 Ml Ud Cup) 650 mg PO Q4H PRN PRN Reason: Pain Aspirin (Aspirin 81 Mg Tab.Ec (Ptom)) 81 mg PO DAILY [facility] Last Admin: 03/21/21 09:12 Dose: 81 mg Documented by: Citalopram Hydrobromide (Citalopram 10 Mg Tab (Ptom)) 10 mg PO DAILY [facility] Last Admin: 03/21/21 09:12 Dose: 10 mg Documented by: Diphenhydramine HCl (Diphenhydramine 25 Mg Cap) 25 mg PO BEDTIME PRN PRN Reason: Insomnia Hydromorphone HCl (Hydromorphone 0.5 Mg/0.5 Ml Syringe) 0.5 mg IVPUSH Q4H PRN PRN Reason: Pain Last Admin: 03/21/21 08:16 Dose: 0.5 mg Documented by: Magnesium Oxide (Magnesium Oxide 400 Mg Tab (Ptom)) 400 mg PO BEDTIME NAHED Melatonin (Melatonin 3 Mg Tab) 6 mg PO BEDTIME PRN PRN Reason: Insomnia Last Admin: 03/20/21 20:51 Dose: 6 mg Documented by: Metoprolol Succinate (Metoprolol Succ 25 Mg Tab.Er (Ptom)) 25 mg PO DAILY [facility] Last Admin: 03/21/21 09:13 Dose: 25 mg Documented by: Morphine Sulfate (Morphine 2 Mg/Ml Syringe) 2 mg IVPUSH Q2H PRN PRN Reason: Pain (severe 7-10) Oxycodone/Acetaminophen (Acetaminophen/Oxycodone 325-5 Mg Tab) 1 tab PO Q6H PRN PRN Reason: Pain Last Admin: 03/21/21 10:59 Dose: 1 tab Documented by: Amlodipine 2.5mg Tab ((Ptom)) 1 each PO DAILY [facility] Last Admin: 03/21/21 09:12 Dose: 1 each Documented by: Calcium + D 600/800 (Tab (Ptom)) 1 each PO BEDTIME NAHED Omeprazole 20mg Cap ((Ptom)) 1 each PO DAILY [facility] Last Admin: 03/21/21 09:12 Dose: 1 each Documented by: Super Vision Cap ( (Ptom)) 1 each PO DAILY [facility] Last Admin: 03/21/21 09:11 Dose: 1 each Documented by: Super B Complex ( (Ptom)) 1 each PO DAILY [facility] Last Admin: 03/21/21 09:12 Dose: 1 each Documented by: Gluc/Chond 500/400 (Cap (Ptom)) 1 each PO DAILY [facility] Last Admin: 03/21/21 09:12 Dose: 1 each Documented by: Systane Eye Drops (Ptom) 0 each EYEBOTH TID [facility] Last Admin: 03/21/21 13:19 Dose: 1 each Documented by: Potassium Chloride (Potassium Chloride 20 Meq Tab.Er) 40 meq PO ONETIME ONE Stop: 03/21/21 17:01 Senna/Docusate Sodium (Docusate Sodium/Sennosides 50-8.6 Mg Tab) 2 tab PO BID [facility] Discontinued Medications Amlodipine Besylate (Amlodipine 5 Mg Tab) 2.5 mg PO DAILY [facility] Last Admin: 03/20/21 12:27 Dose: 5 mg Documented by: Aspirin (Aspirin 81 Mg Tab.Ec) 81 mg PO DAILY [facility] Last Admin: 03/20/21 12:26 Dose: 81 mg Documented by: Calcium Carbonate (Calcium Carbonate/Vitamin D3 1500 Mg-400 Units Tab) 1 tab PO DAILY [facility] Last Admin: 03/20/21 12:26 Dose: 1 tab Documented by: Citalopram Hydrobromide (Citalopram 10 Mg Tab) 10 mg PO DAILY [facility] Last Admin: 03/20/21 12:26 Dose: 10 mg Documented by: Cyanocobalamin (Cyanocobalamin (Vitamin B12) 1,000 Mcg Tab) 1,000 mcg PO DAILY [facility] Last Admin: 03/20/21 12:26 Dose: 1,000 mcg Documented by: Docusate Sodium (Docusate Sodium 100 Mg Cap) 100 mg PO BID [facility] Last Admin: 03/20/21 20:43 Dose: Not Given Documented by: Docusate Sodium (Docusate Sodium 100 Mg Cap (Ptom)) 100 mg PO BID [facility] Last Admin: 03/21/21 09:11 Dose: 100 mg Documented by: Hydromorphone HCl (Hydromorphone 0.5 Mg/0.5 Ml Syringe) 0.5 mg IVPUSH ONETIME ONE Stop: 03/20/21 07:07 Last Admin: 03/20/21 07:35 Dose: 0.5 mg Documented by: Hydromorphone HCl (Hydromorphone 0.5 Mg/0.5 Ml Syringe) 0.5 mg IVPUSH ONETIME ONE Stop: 03/20/21 10:54 Last Admin: 03/20/21 11:06 Dose: 0.5 mg Documented by: Sodium Chloride (Normal Saline) 1,000 mls @ 250 mls/hr IV ASDIRECTED [facility] Last Admin: 03/20/21 10:30 Dose: 250 mls/hr Documented by: Sodium Chloride (Normal Saline) 1,000 mls @ 125 mls/hr IV ASDIRECTED [facility] Last Admin: 03/21/21 13:18 Dose: 125 mls/hr Documented by: Magnesium Oxide (Magnesium Oxide 400 Mg Tab) 400 mg PO DAILY [facility] Last Admin: 03/20/21 12:26 Dose: 400 mg Documented by: Metoprolol Succinate (Metoprolol Succinate 25 Mg Tab.Er) 25 mg PO DAILY [facility] Last Admin: 03/20/21 12:27 Dose: 25 mg Documented by: Non-Formulary Medication (Glucosam/Chondr/Collagn/Hyalur [Glucosamine & Chondroitin Cap]) 1 each PO BID [facility] Last Admin: 03/20/21 20:44 Dose: 1 each Documented by: Non-Formulary Medication (Vit C/E/Zn/Coppr/Lutein/Zeaxan [Preservision Areds 2 Softgel]) 1 each PO BID [facility] Last Admin: 03/20/21 20:44 Dose: 1 each Documented by: Oxycodone/Acetaminophen (Acetaminophen/Oxycodone 325-5 Mg Tab) 1 tab PO Q6H PRN PRN Reason: Pain Last Admin: 03/20/21 12:38 Dose: 1 tab Documented by: Pantoprazole Sodium (Pantoprazole 40 Mg Tab.Cr) 40 mg PO ACBREAKFAST [facility] Last Admin: 03/20/21 12:26 Dose: 40 mg Documented by: Potassium Chloride (Potassium Chloride 20 Meq Tab.Er) 40 meq PO ONETIME ONE Stop: 03/21/21 09:31 Last Admin: 03/21/21 09:22 Dose: 40 meq Documented by: - Exam Quality Assessment: DVT Prophylaxis General: Alert, Oriented, Cooperative, Moderate Distress Lungs: Clear to Auscultation, Normal Respiratory Effort Cardiovascular: Regular Rate, Regular Rhythm, No Murmurs GI/Abdominal Exam: Soft, Non-Tender, No Organomegaly, No Distention Extremities: Non-Tender, No Pedal Edema - Patient Data Lab Results Last 24 hrs: Laboratory Results - last 24 hr 03/21/21 03/21/21 03/21/21 Range/Units 00:17 05:00 05:06 WBC 8.1 (4.5-11.0) K/uL RBC 1.87 L (3.30-5.50) M/uL Hgb 6.8 L* (12.0-15.0) g/dL Hct 19.6 L (36.0-48.0) % MCV 105 H (80-98) fL MCH 36 H (27-31) pg MCHC 35 (32-36) % Plt Count 96 L (150-400) K/uL Neut % (Auto) (36-66) % Lymph % (Auto) (24-44) % [place] % (Auto) (2-6) % Eos % (Auto) (2-4) % Baso % (Auto) (0-1) % Add Manual Diff Yes Neutrophils % (Manual) 76 H (36-66) % Band Neutrophils % 12 H (5-11) % Lymphocytes % (Manual) 4 L (24-44) % Monocytes % (Manual) 8 H (2-6) % Polychromasia Few Hypochromasia Moderate H Anisocytosis Moderate H Macrocytosis Moderate H Sodium (140-148) mmol/L Potassium (3.6-5.2) mmol/L Chloride (100-108) mmol/L Carbon Dioxide (21-32) mmol/L Anion Gap (5.0-14.0) mmol/L BUN (7-18) mg/dL Creatinine (0.6-1.0) mg/dL Est Cr Clr Drug Dosing mL/min Estimated GFR (MDRD) (>60) Glucose (74-106) mg/dL Calcium (8.5-10.1) mg/dL Urine Color Yellow (YELLOW) Urine Appearance Clear (CLEAR) Urine pH 5.5 (5.0-8.0) Ur Specific [place] 1.020 (1.008-1.030) Urine Protein 100 H (NEGATIVE) mg/dL Urine Glucose (UA) Negative (NEGATIVE) mg/dL Urine Ketones 15 H (NEGATIVE) mg/dL Urine Occult Blood Negative (NEGATIVE) Urine Nitrite Negative (NEGATIVE) Urine Bilirubin Moderate H (NEGATIVE) Urine Urobilinogen 1.0 (0.2-1.0) EU/dL Ur Leukocyte Esterase Trace H (NEGATIVE) Urine RBC 0-5 (0-5) Urine WBC 5-10 H (0-5) Ur Epithelial Cells Few Amorphous Sediment Few Urine Bacteria Moderate Urine Mucus Few Blood Type O POSITIVE Gel Antibody Screen Negative Crossmatch See Detail 03/21/21 03/21/21 Range/Units 05:06 13:00 WBC 9.5 (4.5-11.0) K/uL RBC 2.54 L (3.30-5.50) M/uL Hgb 8.7 L (12.0-15.0) g/dL Hct 25.4 L (36.0-48.0) % MCV 100 H (80-98) fL MCH 34 H (27-31) pg MCHC 34 (32-36) % Plt Count 106 L (150-400) K/uL Neut % (Auto) 85.9 H (36-66) % Lymph % (Auto) 4.9 L (24-44) % [place] % (Auto) 8.7 H (2-6) % Eos % (Auto) 0.4 L (2-4) % Baso % (Auto) 0.1 (0-1) % Add Manual Diff Neutrophils % (Manual) (36-66) % Band Neutrophils % (5-11) % Lymphocytes % (Manual) (24-44) % Monocytes % (Manual) (2-6) % Polychromasia Hypochromasia Anisocytosis Macrocytosis Sodium 136 L (140-148) mmol/L Potassium 3.4 L (3.6-5.2) mmol/L Chloride 98 L (100-108) mmol/L Carbon Dioxide 26 (21-32) mmol/L Anion Gap 15.4 H (5.0-14.0) mmol/L BUN 16 (7-18) mg/dL Creatinine 1.0 (0.6-1.0) mg/dL Est Cr Clr Drug Dosing 33.33 mL/min Estimated GFR (MDRD) 53 L (>60) Glucose 115 H (74-106) mg/dL Calcium 8.5 (8.5-10.1) mg/dL Urine Color (YELLOW) Urine Appearance (CLEAR) Urine pH (5.0-8.0) Ur Specific [place] (1.008-1.030) Urine Protein (NEGATIVE) mg/dL Urine Glucose (UA) (NEGATIVE) mg/dL Urine Ketones (NEGATIVE) mg/dL Urine Occult Blood (NEGATIVE) Urine Nitrite (NEGATIVE) Urine Bilirubin (NEGATIVE) Urine Urobilinogen (0.2-1.0) EU/dL Ur Leukocyte Esterase (NEGATIVE) Urine RBC (0-5) Urine WBC (0-5) Ur Epithelial Cells Amorphous Sediment Urine Bacteria Urine Mucus Blood Type Gel Antibody Screen Crossmatch Result Diagrams: 03/21/21 13:00 03/21/21 05:06 Sepsis Event Note - Evaluation Sepsis Screening Result: No Definite Risk - Focused Exam Vital Signs: Vital Signs Temp Temp Pulse Pulse Resp BP BP 03/21/21 10:52 98.1 F 80 18 139/62 03/21/21 09:13 80 145/56 H 03/21/21 09:02 97.9 F 82 18 03/21/21 08:35 96.6 F L 78 18 03/21/21 08:05 96.8 F L 83 16 03/21/21 07:50 96.1 F L 82 18 03/21/21 07:34 96.4 F L 87 18 03/21/21 07:20 97.2 F 81 18 03/21/21 07:00 96.6 F L 84 17 133/61 03/21/21 02:55 98.7 F 83 18 BP Pulse Ox 03/21/21 10:52 92 L 03/21/21 09:13 03/21/21 09:02 145/56 H 03/21/21 08:35 123/101 H 03/21/21 08:05 156/70 H 03/21/21 07:50 167/71 H 03/21/21 07:34 163/68 H 03/21/21 07:20 159/61 H 03/21/21 07:00 94 L 03/21/21 02:55 147/63 H 96 - Problem List Review Problem List Initiated/Reviewed/Updated: Yes - My Orders Last 24 Hours: My Active Orders 03/21/21 08:53 Consult to Physical Therapy [PT Evaluation and Treatment] [CONS] Routine OT Evaluation and Treatment [CONS] Routine 03/21/21 09:00 Patient's Own Medication [Ptom] 0 each EYEBOTH TID 03/21/21 13:45 Convert IV to Saline Lock [OM.PC] Routine 03/21/21 14:00 Docusate Sodium/Sennosides [Senna Plus] 2 tab PO BID 03/21/21 17:00 Potassium Chloride [Klor-Con M20] 40 meq PO ONETIME ONE 03/22/21 05:00 BASIC METABOLIC PANEL,BMP [CHEM] Timed CBC WITH AUTO DIFF [HEME] Timed - Plan Plan:: ASSESSMENT AND PLAN Pelvic ring [facility], during exam for admission reports pain in right elbow and right upper arm. examination shows multi bruising and edema. skin tear to right elbow. -consult for Long Term placement -consult to PT and OT -pain control- PO and IV -Saline lock IV -Protonix 40 mg IV daily -Imaging- pending Xrays of right humerus and right elbow. History of Tracheostomy - reports difficulty swallowing pills. does eat a regular diet at home. -needs to have pills crush due to choking hazard Hypertension -continue Outpatient medication Anxiety -continue Outpatient medications Acute on chronic anemia-secondary to likely bleeding from her injury and fractures. Hemoglobin this morning did drop below 7 and she has been transfused 1 unit of red blood cells -recheck CBC in am MAINTENANCE ISSUES -DVT Prophylaxis SCD -GI prophylaxis- Protonix as above -Rubin catheter not indicated -Nutrition Consistent Carb diet -Tobacco- quit smoking 10 years ago. -Consult to OT/PT CODE STATUS DNR/DNI ADMISSION This patient will be admitted to observation status, expect no more than two night hospital stay for evaluation and management of problems outline above. DISPOSITION anticipate discharge to Long Term after the hospital stay PRIMARY CARE PROVIDER Dr. Suzanne Moffett. [facility] HOSPITALIST Dr. Vazquez
[2021-03-21] MEDS ORDERED: CALCIUM PO SCH (21:00)
[2021-03-21] MEDS ORDERED: MAGNESIUM OXIDE 400 MG PO SCH (21:00)
[2021-03-21] MEDS ORDERED: [UNRECOGNIZED DRUG - OTHER] PO SCH (21:00)
[2021-03-22] MEDS: Acetaminophen/oxyCODONE 325-5 MG Tab PO PRN ×2 (01:19→08:05)
[2021-03-22] MEDS: SYSTANE EYE EYEBOTH SCH (09:06)
--- NOTE | 2021-03-22 09:07 | PCM.DCSUM1 ---
Discharge Summary - Hospital Course Brief History: Ms. Muniz is an 80-year-old woman who was admitted through the emergency department observation status with severe pelvic pain secondary to right superior and inferior pubic rami fracture. - Discharge Data Discharge Date: 03/22/21 Discharge Disposition: Home, Self-Care 01 Condition: Stable - Referral to Home Health Primary Care Physician: Suzanne Moffett MD - Discharge Diagnosis/Problem(s) (1) Anemia SNOMED Code(s): 281615405 ICD Code: D64.9 - ANEMIA, UNSPECIFIED Status: Acute Priority: Low Current Visit: Yes Qualifiers: Anemia type: unspecified type Qualified Code(s): D64.9 - Anemia, unspecified (2) Pelvic fracture SNOMED Code(s): 25361039 ICD Code: S32.9XXA - FRACTURE OF UNSP PARTS OF LUMBOSACRAL SPINE AND PELVIS, INIT Status: Acute Current Visit: Yes Qualifiers: Encounter type: initial encounter Pelvic bone location: other part of pelvis Fracture type: closed Qualified Code(s): S32.89XA - Fracture of other parts of pelvis, initial encounter for closed fracture (3) Essential hypertension SNOMED Code(s): 19200224 ICD Code: I10 - ESSENTIAL (PRIMARY) HYPERTENSION Status: Chronic Priority: Low Current Visit: Yes - Patient Summary/Data Consults: Consultations 03/21/21 08:53 Consult to Physical Therapy [PT Evaluation and Treatment] [CONS] Routine Please Evaluate and Treat. PT Reason for Consult: Pelvic ring fracture Pending Discharge: Yes This query below is only for informational purposes and is not editable. Admission Diagnosis/Problem: Pelvic ring fracture OT Evaluation and Treatment [CONS] Routine Please Evaluate and Treat. OT Reason for Consult: Pelvic ring fracture Pending Discharge: Yes This query below is only for informational purposes and is not editable. Admission Diagnosis/Problem: Pelvic ring fracture Hospital Course: Ms. Muniz is an 80-year-old woman who is admitted to observation status through the emergency department because of a pelvic fracture. She fell yesterday morning and was brought into the emergency department. X-rays have documented fractures of the right superior and inferior pubic rami. X-rays have been reviewed by orthopedic surgery. She does not require surgical intervention and can be weightbearing as tolerated. Because of severe pain she is unable to return home and will require custodial placement. Follow-up hemoglobin level has shown a drop to less than 7 and she was transfused 1 unit of red blood cells earlier in the day today. She did receive physical therapy and Occupational Therapy while hospitalized. She will be discharged to the custodial for ongoing care as well as restorative physical therapy and Occupational Therapy. She is nonweightbearing as tolerated for activity and will be on a heart healthy diet. Follow-up with primary care will be as needed. - Patient Instructions Diet: Heart Healthy Diet Activity, Other: Weightbearing as tolerated Other/Special Instructions: Daily physical therapy and Occupational Therapy while at the custodial - Discharge Plan *PRESCRIPTION DRUG MONITORING PROGRAM REVIEWED*: Not Applicable *COPY OF PRESCRIPTION DRUG MONITORING REPORT IN PATIENT ESTIVEN: Not Applicable Prescriptions/Med Rec: oxyCODONE 5 mg PO Q4H PRN #30 tab PRN Reason: Pain Docusate Sodium/Sennosides [Senna Plus] 2 tab PO BID #120 tablet Home Medications: Home Meds Acetaminophen 650 mg PO Q4H PRN 11/15/18 [History] Omeprazole 20 mg PO DAILY 11/15/18 [History] amLODIPine [Norvasc] 2.5 mg PO DAILY 11/15/18 [History] Citalopram Hydrobromide [Celexa] 10 mg PO DAILY 05/13/19 [History] Cyanocobalamin/FA/Pyridoxine [B Complex-Folic Acid] 1 each PO DAILY 05/13/19 [History] Aspirin [Halfprin] 81 mg PO DAILY 05/18/19 [History] Calcium Carbonate/Vitamin D3 [Calcium 600-Vit D3 800 Tablet] 1 each PO DAILY 05/18/19 [History] Glucosam/Chondr/Collagn/Hyalur [Glucosamine & Chondroitin Cap] 1 each PO BID 05/18/19 [History] Magnesium Oxide 400 mg PO DAILY 05/18/19 [History] Vit C/E/Zn/Coppr/Lutein/Zeaxan [Preservision Areds 2 Softgel] 1 each PO BID 05/18/19 [History] Docusate Sodium [Colace] 100 mg PO BID #60 cap 05/27/19 [Rx] Metoprolol Succinate 25 mg PO DAILY 03/20/21 [History] Alendronate Sodium 70 mg PO WEEKLY 03/21/21 [History] PEG 400/Propylene Glycol [Systane Lubricant] 1 p [facility] T[facility] 03/21/21 [History] Docusate Sodium/Sennosides [Senna Plus] 2 tab PO BID #120 tablet 03/22/21 [Rx] oxyCODONE 5 mg PO Q4H PRN #30 tab 03/22/21 [Rx] Referrals: Suzanne Moffett MD [Primary Care Provider] - - Discharge Summary/Plan Comment DC Time >30 min.: No Total # of Minutes for Discharge Time: 15 - Patient Data Vitals - Most Recent: Last Vital Signs Temp 96.3 F L 03/22/21 02:00 Pulse 81 03/22/21 02:00 Resp 18 03/22/21 02:00 BP 133/60 03/22/21 02:00 Pulse Ox 95 03/22/21 02:00 Weight - Most Recent: 105 lb Lab Results - Last 24 hrs: Laboratory Results - last 24 hr 03/21/21 03/21/21 03/22/21 Range/Units 05:00 13:00 04:25 WBC 9.5 9.7 (4.5-11.0) K/uL RBC 2.54 L 2.58 L (3.30-5.50) M/uL Hgb 8.7 L 8.8 L (12.0-15.0) g/dL Hct 25.4 L 25.6 L (36.0-48.0) % MCV 100 H 99 H (80-98) fL MCH 34 H 34 H (27-31) pg MCHC 34 34 (32-36) % Plt Count 106 L 104 L (150-400) K/uL Neut % (Auto) 85.9 H 83.3 H (36-66) % Lymph % (Auto) 4.9 L 5.7 L (24-44) % [place] % (Auto) 8.7 H 9.8 H (2-6) % Eos % (Auto) 0.4 L 1.0 L (2-4) % Baso % (Auto) 0.1 0.2 (0-1) % Sodium (140-148) mmol/L Potassium (3.6-5.2) mmol/L Chloride (100-108) mmol/L Carbon Dioxide (21-32) mmol/L Anion Gap (5.0-14.0) mmol/L BUN (7-18) mg/dL Creatinine (0.6-1.0) mg/dL Est Cr Clr Drug Dosing mL/min Estimated GFR (MDRD) (>60) Glucose (74-106) mg/dL Calcium (8.5-10.1) mg/dL Crossmatch See Detail 03/22/21 Range/Units 04:25 WBC (4.5-11.0) K/uL RBC (3.30-5.50) M/uL Hgb (12.0-15.0) g/dL Hct (36.0-48.0) % MCV (80-98) fL MCH (27-31) pg MCHC (32-36) % Plt Count (150-400) K/uL Neut % (Auto) (36-66) % Lymph % (Auto) (24-44) % [place] % (Auto) (2-6) % Eos % (Auto) (2-4) % Baso % (Auto) (0-1) % Sodium 136 L (140-148) mmol/L Potassium 4.0 (3.6-5.2) mmol/L Chloride 102 (100-108) mmol/L Carbon Dioxide 24 (21-32) mmol/L Anion Gap 14.0 (5.0-14.0) mmol/L BUN 14 (7-18) mg/dL Creatinine 0.7 (0.6-1.0) mg/dL Est Cr Clr Drug Dosing 47.39 mL/min Estimated GFR (MDRD) > 60 (>60) Glucose 102 (74-106) mg/dL Calcium 9.0 (8.5-10.1) mg/dL Crossmatch Med Orders - Current: Current Medications Acetaminophen (Acetaminophen Soln 650 Mg/20.3 Ml Ud Cup) 650 mg PO Q4H PRN PRN Reason: Pain Last Admin: 03/21/21 20:07 Dose: 650 mg Documented by: Aspirin (Aspirin 81 Mg Tab.Ec (Ptom)) 81 mg PO DAILY [facility] Last Admin: 03/21/21 09:12 Dose: 81 mg Documented by: Citalopram Hydrobromide (Citalopram 10 Mg Tab (Ptom)) 10 mg PO DAILY [facility] Last Admin: 03/21/21 09:12 Dose: 10 mg Documented by: Diphenhydramine HCl (Diphenhydramine 25 Mg Cap) 25 mg PO BEDTIME PRN PRN Reason: Insomnia Hydromorphone HCl (Hydromorphone 0.5 Mg/0.5 Ml Syringe) 0.5 mg IVPUSH Q4H PRN PRN Reason: Pain Last Admin: 03/21/21 08:16 Dose: 0.5 mg Documented by: Magnesium Oxide (Magnesium Oxide 400 Mg Tab (Ptom)) 400 mg PO BEDTIME [facility] Last Admin: 03/21/21 20:09 Dose: 400 mg Documented by: Melatonin (Melatonin 3 Mg Tab) 6 mg PO BEDTIME PRN PRN Reason: Insomnia Last Admin: 03/20/21 20:51 Dose: 6 mg Documented by: Metoprolol Succinate (Metoprolol Succ 25 Mg Tab.Er (Ptom)) 25 mg PO DAILY [facility] Last Admin: 03/21/21 09:13 Dose: 25 mg Documented by: Morphine Sulfate (Morphine 2 Mg/Ml Syringe) 2 mg IVPUSH Q2H PRN PRN Reason: Pain (severe 7-10) Oxycodone/Acetaminophen (Acetaminophen/Oxycodone 325-5 Mg Tab) 1 tab PO Q6H PRN PRN Reason: Pain Last Admin: 03/22/21 08:05 Dose: 1 tab Documented by: Amlodipine 2.5mg Tab ((Ptom)) 1 each PO DAILY [facility] Last Admin: 03/21/21 09:12 Dose: 1 each Documented by: Calcium + D 600/800 (Tab (Ptom)) 1 each PO BEDTIME [facility] Last Admin: 03/21/21 20:09 Dose: 1 each Documented by: Omeprazole 20mg Cap ((Ptom)) 1 each PO DAILY [facility] Last Admin: 03/21/21 09:12 Dose: 1 each Documented by: Super Vision Cap ( (Ptom)) 1 each PO DAILY [facility] Last Admin: 03/21/21 09:11 Dose: 1 each Documented by: Super B Complex ( (Ptom)) 1 each PO DAILY [facility] Last Admin: 03/21/21 09:12 Dose: 1 each Documented by: Gluc/Chond 500/400 (Cap (Ptom)) 1 each PO DAILY [facility] Last Admin: 03/21/21 09:12 Dose: 1 each Documented by: Systane Eye Drops (Ptom) 0 each EYEBOTH TID [facility] Last Admin: 03/21/21 20:09 Dose: 1 each Documented by: Senna/Docusate Sodium (Docusate Sodium/Sennosides 50-8.6 Mg Tab) 2 tab PO BID [facility] Last Admin: 03/21/21 20:15 Dose: Not Given Documented by: Discontinued Medications Amlodipine Besylate (Amlodipine 5 Mg Tab) 2.5 mg PO DAILY [facility] Last Admin: 03/20/21 12:27 Dose: 5 mg Documented by: Aspirin (Aspirin 81 Mg Tab.Ec) 81 mg PO DAILY [facility] Last Admin: 03/20/21 12:26 Dose: 81 mg Documented by: Calcium Carbonate (Calcium Carbonate/Vitamin D3 1500 Mg-400 Units Tab) 1 tab PO DAILY [facility] Last Admin: 03/20/21 12:26 Dose: 1 tab Documented by: Citalopram Hydrobromide (Citalopram 10 Mg Tab) 10 mg PO DAILY [facility] Last Admin: 03/20/21 12:26 Dose: 10 mg Documented by: Cyanocobalamin (Cyanocobalamin (Vitamin B12) 1,000 Mcg Tab) 1,000 mcg PO DAILY [facility] Last Admin: 03/20/21 12:26 Dose: 1,000 mcg Documented by: Docusate Sodium (Docusate Sodium 100 Mg Cap) 100 mg PO BID [facility] Last Admin: 03/20/21 20:43 Dose: Not Given Documented by: Docusate Sodium (Docusate Sodium 100 Mg Cap (Ptom)) 100 mg PO BID [facility] Last Admin: 03/21/21 09:11 Dose: 100 mg Documented by: Hydromorphone HCl (Hydromorphone 0.5 Mg/0.5 Ml Syringe) 0.5 mg IVPUSH ONETIME ONE Stop: 03/20/21 07:07 Last Admin: 03/20/21 07:35 Dose: 0.5 mg Documented by: Hydromorphone HCl (Hydromorphone 0.5 Mg/0.5 Ml Syringe) 0.5 mg IVPUSH ONETIME ONE Stop: 03/20/21 10:54 Last Admin: 03/20/21 11:06 Dose: 0.5 mg Documented by: Sodium Chloride (Normal Saline) 1,000 mls @ 250 mls/hr IV ASDIRECTED [facility] Last Admin: 03/20/21 10:30 Dose: 250 mls/hr Documented by: Sodium Chloride (Normal Saline) 1,000 mls @ 125 mls/hr IV ASDIRECTED [facility] Last Admin: 03/21/21 13:18 Dose: 125 mls/hr Documented by: Magnesium Oxide (Magnesium Oxide 400 Mg Tab) 400 mg PO DAILY [facility] Last Admin: 03/20/21 12:26 Dose: 400 mg Documented by: Metoprolol Succinate (Metoprolol Succinate 25 Mg Tab.Er) 25 mg PO DAILY [facility] Last Admin: 03/20/21 12:27 Dose: 25 mg Documented by: Non-Formulary Medication (Glucosam/Chondr/Collagn/Hyalur [Glucosamine & Chondroitin Cap]) 1 each PO BID [facility] Last Admin: 03/20/21 20:44 Dose: 1 each Documented by: Non-Formulary Medication (Vit C/E/Zn/Coppr/Lutein/Zeaxan [Preservision Areds 2 Softgel]) 1 each PO BID [facility] Last Admin: 03/20/21 20:44 Dose: 1 each Documented by: Oxycodone/Acetaminophen (Acetaminophen/Oxycodone 325-5 Mg Tab) 1 tab PO Q6H PRN PRN Reason: Pain Last Admin: 03/20/21 12:38 Dose: 1 tab Documented by: Pantoprazole Sodium (Pantoprazole 40 Mg Tab.Cr) 40 mg PO ACBREAKFAST [facility] Last Admin: 03/20/21 12:26 Dose: 40 mg Documented by: Potassium Chloride (Potassium Chloride 20 Meq Tab.Er) 40 meq PO ONETIME ONE Stop: 03/21/21 09:31 Last Admin: 03/21/21 09:22 Dose: 40 meq Documented by: Potassium Chloride (Potassium Chloride 20 Meq Tab.Er) 40 meq PO ONETIME ONE Stop: 03/21/21 17:01 Last Admin: 03/21/21 17:32 Dose: 40 meq Documented by: - Exam Quality Assessment: Reports: DVT Prophylaxis General: Reports: Alert, Oriented, Cooperative, Moderate Distress Lungs: Reports: Clear to Auscultation, Normal Respiratory Effort, Decreased Breath Sounds Cardiovascular: Reports: Regular Rate, Regular Rhythm, No Murmurs GI/Abdominal Exam: Soft, Non-Tender, No Organomegaly, No Distention Extremities: No Pedal Edema
[2021-03-22] MEDS: Aspirin 81 MG Tab.EC (PTOM) PO SCH (09:13)
[2021-03-22] MEDS: CITALOPRAM 10 MG PO SCH (09:13)
[2021-03-22] MEDS: [UNRECOGNIZED DRUG - OTHER] PO SCH (09:14)
[2021-03-22] MEDS: AMLODIPINE 2.5 MG PO SCH (09:14)
[2021-03-22] MEDS: GLUC PO SCH (09:14)
[2021-03-22] MEDS: CHOND PO SCH (09:14)
[2021-03-22] MEDS: OMEPRAZOLE 20MG CAP (PTOM) PO SCH (09:14)
[2021-03-22] MEDS: SUPER B COMPLEX PO SCH (09:14)
[2021-03-22] MEDS: METOPROLOL SUCC 25 MG PO SCH (09:14)
== END 2021-03-22 13:35 | disposition home or self-care (01) ==
LOC: JP.ED 06:59 → JP.MS 19:09
PROVIDERS: ADMIT Hospitalist; ATTEND Hospitalist
DX: S32.89XA Fracture of other parts of pelvis, initial encounter for closed fracture (principal); I10 Essential (primary) hypertension; F41.1 Generalized anxiety disorder; D64.9 Anemia, unspecified; Z88.8 Allergy status to other drugs, medicaments and biological substances; Z79.899 Other long term (current) drug therapy; Z79.82 Long term (current) use of aspirin; Z98.890 Other specified postprocedural states; Z93.0 Tracheostomy status; W01.0XXA Fall on same level from slipping, tripping and stumbling without subsequent striking against object, initial encounter; Z20.822 Contact with and (suspected) exposure to COVID-19
CPT/HCPCS: 0241U; 36415; 36430; 73060; 73080; 73501; 80048; 80053; 81001; 82550; 85025; 86850; 86900; 86901; 86920; 86922; 96374; 96376; 97110; 97162; 97165; 97530; 99285; A9270; G0378; J1170; J7030; P9016; 99217; 99220; 99225

== ENCOUNTER 2021-05-05 10:06 | Emergency (ER) | payer MEDICARE, OTHER ==
--- NOTE | 2021-05-05 10:36 | EDM.PDOC ---
ED HPI GENERAL MEDICAL PROBLEM - General Chief Complaint: Lower Extremity Injury/Pain Stated Complaint: MEDICAL [facility]IA [facility] Time Seen by Provider: 05/05/21 10:31 Source of Information: Reports: Patient, Family History Limitations: Reports: No Limitations - History of Present Illness INITIAL COMMENTS - FREE TEXT/NARRATIVE: FOR THE PAST 2 DAYS PT HAS HAD SEVERE LEFT HIP PAIN. sHE IS HAVING DIFFICULTY WEIGHT BEARING. sHE HAS HAD RECENT PELVIC FRACTURE. Onset: Gradual, Other ( LAST 2 DAYS. ) Duration: Hour(s): Location: Reports: Lower Extremity, Left Associated Symptoms: Reports: No Other Symptoms - Related Data Allergies Allergy/AdvReac Type Severity Reaction Status Date / Time naproxen [From Aleve] AdvReac Nausea and Verified 05/05/21 10:12 Vomiting Home Meds: Home Meds Omeprazole 20 mg PO DAILY 11/15/18 [History] amLODIPine [Norvasc] 2.5 mg PO DAILY 11/15/18 [History] Citalopram Hydrobromide [Celexa] 10 mg PO DAILY 05/13/19 [History] Cyanocobalamin/FA/Pyridoxine [B Complex-Folic Acid] 1 each PO DAILY 05/13/19 [History] Aspirin [Halfprin] 81 mg PO DAILY 05/18/19 [History] Calcium Carbonate/Vitamin D3 [Calcium 600-Vit D3 800 Tablet] 1 each PO DAILY 05/18/19 [History] Glucosam/Chondr/Collagn/Hyalur [Glucosamine & Chondroitin Cap] 1 each PO BID 05/18/19 [History] Magnesium Oxide 400 mg PO DAILY 05/18/19 [History] Vit C/E/Zn/Coppr/Lutein/Zeaxan [Preservision Areds 2 Softgel] 1 each PO BID 05/18/19 [History] Metoprolol Succinate 25 mg PO DAILY 03/20/21 [History] Alendronate Sodium 70 mg PO WEEKLY 03/21/21 [History] PEG 400/Propylene Glycol [Systane Lubricant] 1 drp EYEBOTH TID 03/21/21 [History] Docusate Sodium/Sennosides [Senna Plus] 2 tab PO BID #120 tablet 03/22/21 [Rx] oxyCODONE 5 mg PO Q4H PRN #30 tab 03/22/21 [Rx] Acetaminophen [Tylenol Extra Strength] 1,000 mg PO TID 12/25/21 [History] Past Medical History HEENT History: Reports: Cataract, Impaired Vision, Macular Degeneration Cardiovascular History: Reports: Hypertension, Other (See Below) Other Cardiovascular History: son reports patient had to be defibrillated after at anti-anxiety medication caused her QR interval to be too long. Gastrointestinal History: Reports: Chronic Constipation, Diverticulosis, Other (See Below) Other Gastrointestinal History: colostomy, hernia under ostomy, reversal of ostomy Spring 2019 [employer] History: Reports: Musculoskeletal History: Reports: Arthritis, Fracture, Other (See Below) Other Musculoskeletal History: R superior/inferior pubic rami mildly comminuted fractures (03/19/2021) Psychiatric History: Reports: Anxiety Endocrine/Metabolic History: Reports: Hypothyroidism Hematologic History: Reports: Blood Transfusion(s) Oncologic (Cancer) History: Reports: Other (See Below) Other Oncologic History: tonsil/oral - Infectious Disease History Infectious Disease History: Reports: Chicken Pox, Measles, Mumps - Past Surgical History HEENT Surgical History: Reports: Cataract Surgery Other HEENT Surgeries/Procedures: 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 Cardiovascular Surgical History: Reports: None GI Surgical History: Reports: Colonoscopy Female Surgical History: Reports: Breast Biopsy Endocrine Surgical History: Reports: None Musculoskeletal Surgical History: Reports: Other (See Below) Other Musculoskeletal Surgeries/Procedures:: pins in left hip Social & Family History - Family History Family Medical History: No Pertinent Family History Oncologic: Reports: Hodgkin's Lymphoma - Tobacco Use Tobacco Use Status *Q: Never Tobacco User - Caffeine Use Caffeine Use: Reports: Coffee, Soda - Recreational Drug Use Recreational Drug Use: No - Living Situation & Occupation Living situation: Reports: Single, Assisted Living Occupation: Retired (has lived at [facility] for the past two and half years. Has two Sons, retired from [employer] in [facility] 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 She is now having pain in the left hip and ia not able to weight bear on it. ) Skin: Reports: No Symptoms ED EXAM, GENERAL - Physical Exam Exam: See Below Free Text/Narrative:: pt arrived with pain in the left hip and she is not able to weight bear. She does live in assisted living at [facility] and her assisstance from [facility] will need to be stepped up. Exam Limited By: No Limitations General Appearance: Alert, Anxious, Moderate Distress, Other (pt is having difficulty moving and tuening, ) Ears: Normal TMs Nose: Normal Inspection Throat/Mouth: Normal Inspection Head: Atraumatic Neck: Normal Inspection Respiratory/Chest: No Respiratory Distress Cardiovascular: Other (pt is very pale and does have a history of anemia) GI/Abdominal: Soft, Non-Tender Rectal (Female) Exam: Deferred Back Exam: Normal Inspection Extremities: Other (pt is very tender over the left hip joint when she goes to move she is very uncomfortable. ) Neurological: Alert, Oriented, Normal Cognition Psychiatric: Normal Affect Course - Vital Signs Last Recorded V/S: Last Vital Signs Temp 36.2 C 05/05/21 10:09 Pulse 78 05/05/21 10:09 Resp 16 05/05/21 10:09 BP 155/56 H 05/05/21 10:09 Pulse Ox 98 05/05/21 10:09 - Orders/Labs/Meds Orders: Active Orders 24 hr Category Date Time Status Hip Min 2V or 3V w Pelvis Lt [CR] Stat Exams 05/05/21 10:29 Taken - Re-Assessments/Exams Free Text/Narrative Re-Assessment/Exam: 05/05/21 13:41 xrays show the pelvic fracture. She does not have evidenxce of a hip fracture. A cat scan of the hip was obtained which also did not show a fracture. There is articular cut out that projects into the joint space. Departure - Departure Time of Disposition: 13:43 Disposition: Home, Self-Care 01 Condition: Fair Clinical Impression: Left hip pain - Discharge Information Referrals: PCP,None [Ordering Only Provider] - Forms: ED Department Discharge Care Plan Goals: at assisted living pt should temprarly use a wheel chair, She will need increased care to get in and out of bed, Orthopedic consult on Friday or friday with Dr Alan at the hosp. Will call with a appointment, oxycodone 5 mg q8hprn for severe pain tylenol as previosly ordered. Sepsis Event Note (ED) - Evaluation Sepsis Screening Result: No Definite Risk - Focused Exam Vital Signs: Vital Signs Temp Pulse Resp BP Pulse Ox 05/05/21 10:09 36.2 C 78 16 155/56 H 98 - My Orders Last 24 Hours: My Active Orders 05/05/21 10:29 Hip Min 2V or 3V w Pelvis Lt [CR] Stat - Assessment/Plan Last 24 Hours: My Active Orders 05/05/21 10:29 Hip Min 2V or 3V w Pelvis Lt [CR] Stat
--- NOTE | 2021-05-05 12:32 | CRLCT ---
For Patients: As a result of the Century Cures Act, medical imaging exams and procedure reports are released immediately into your electronic medical record. You may view this report before your referring provider. If you have questions, please contact your health care provider. INDICATION: Left hip pain. TECHNIQUE: Pelvic CT without intravenous contrast. Coronal and sagittal formats. COMPARISON: Same date left hip x-rays and CT 11/15/2018. FINDINGS: Diffuse demineralization. Redemonstrated left proximal femur intramedullary nail construct, which is incompletely imaged distally. The proximal interlocking screw re-demonstrates articular cut-out at the superior femoral head (series 8, image 34), not substantially changed from prior. Chronic posttraumatic deformity of the left proximal femur. Right pubic body comminuted fracture with extension to involve the central aspect of the right superior pubic ramus. Right inferior pubic ramus comminuted fracture with mild displacement and angulation. Right sacral wing demonstrates extensive patchy sclerosis and lucency as well as a well-defined vertically oriented fracture line without displacement. No dislocation or additional fracture identified. The hips are intact bilaterally with mild-moderate left-sided degenerative changes. The pubic symphysis and sacroiliac joints are intact. Advanced spondylosis of the imaged inferior lumbar spine. Postsurgical changes involving the bowel within the left lower abdomen and pelvis. Multiple noninflamed small-bowel loops contained within a ventral suprapubic hernia. Heavy aortic bi-iliac atherosclerotic calcification. IMPRESSION: 1. Comminuted right pubic fractures, as above. 2. Right sacral wing demonstrates an acute-appearing nondisplaced fracture, possibly superimposed on chronic insufficiency changes. 3. Left hip screw demonstrates persistent articular cut out, projecting into the superior hip joint space. 4. Suprapubic hernia containing multiple noninflamed appearing small bowel loops. Dictated by Bryson Melendez MD @ 05/05/2021 12:31:36 PM Please note that all CT scans at this facility use dose modulation, iterative reconstruction, and/or weight-based dosing when appropriate to reduce radiation dose to as low as reasonably achievable. Dictated by: Bryson Melendez MD @ 05/05/2021 12:31:43 (Electronically Signed)
[2021-05-05] MEDS ORDERED: oxyCODONE 5 MG Tab PO ONE (13:47)
--- NOTE | 2021-05-07 11:07 | CR ---
Hip Min 2V or 3V w Pelvis Lt CLINICAL HISTORY: Left hip pain with weightbearing FINDINGS: Patient has known comminuted fractures of the right pubic ramus. Patient has had a previous intertrochanteric fracture left hip with open reduction. The compression screw extends just beyond the superior femoral articular cortex. Bones are osteopenic IMPRESSION: Known right superior and inferior pubic rami fractures Previous left intertrochanteric fracture with open reduction. Compression screw extends slightly beyond the superior femoral articular cortex into the joint space
== END 2021-05-05 14:12 | disposition home or self-care (01) ==
LOC: JP.ED 10:06
DX: M25.552 Pain in left hip (principal); I10 Essential (primary) hypertension; E03.9 Hypothyroidism, unspecified; Z88.5 Allergy status to narcotic agent; Z79.899 Other long term (current) drug therapy; Z79.82 Long term (current) use of aspirin
CPT/HCPCS: 73502; 73700; 99284; A9270

== ENCOUNTER 2021-05-21 07:31 | Inpatient (IN) | payer MEDICARE, OTHER ==
[~2021-05-21 07:31] MED LIST changes: +Bupivacaine 0.5%/EPINEPHrine 1:200,000 50 ML MDV ONE; -Dexamethasone 4 MG/ML SDV ONE; -Glycopyrrolate 0.2 MG/ML 5 ML MDV ONE; -Neostigmine Methylsulfate 1 MG/ML 5 ML Syringe ONE; -Ondansetron 4 MG/2 ML SDV ONE; -Propofol 200 MG/20 ML SDV ONE; -Rocuronium 50 MG/5 ML Vial ONE; -Succinylcholine 200 MG/10 ML MDV ONE; -fentaNYL 250 MCG/5 ML SDV ONE
[2021-05-21] MEDS ORDERED: Nozin Nasal Sanitizer NASBOTH ONE (07:45)
[2021-05-21] MEDS ORDERED: Lactated Ringers 1,000 ML IV SCH (08:45)
[2021-05-21] MEDS ORDERED: ceFAZolin 1 GM in Premix Bag 1 BAG IV ONE (09:00)
[2021-05-21 09:08] LABS: CORONAVIRUS COVID-19 NAA NEGATIVE (NEGATIVE)
[2021-05-21] MEDS ORDERED: Propofol 200 MG/20 ML SDV ONE (10:39)
[2021-05-21] MEDS ORDERED: Midazolam 1 MG/ML 2 ML SDV ONE (10:39)
[2021-05-21] MEDS ORDERED: fentaNYL 100 MCG/2 ML SDV ONE (10:39)
[2021-05-21] MEDS ORDERED: Lactated Ringers 1,000 ML ONE (11:28)
[2021-05-21] MEDS ORDERED: Sodium Chloride 0.9% 10 ML ONE ×2 (11:55→12:13)
[2021-05-21] MEDS ORDERED: ePHEDrine 50 MG/ML SDV ONE (11:55)
[2021-05-21] MEDS ORDERED: Phenylephrine 1% 10 MG/ML SDV ONE (12:13)
[2021-05-21] MEDS ORDERED: Ondansetron 4 MG/2 ML SDV IVPUSH PRN (12:46)
[2021-05-21] MEDS ORDERED: traMADol 50 MG Tab PO PRN (12:46)
[2021-05-21] MEDS ORDERED: Ondansetron 4 MG Tab.DIS PO PRN (12:46)
[2021-05-21] MEDS ORDERED: HYDROmorphone 0.5 MG/0.5 ML Syringe IVPUSH PRN (12:53)
[2021-05-21] MEDS ORDERED: ceFAZolin 1 GM in Sodium Chloride 0.9% 50 ML IV SCH (13:00)
[2021-05-21] MEDS: Acetaminophen 325 MG Tab PO SCH ×2 (16:05→22:32)
[2021-05-21] MEDS: Ketorolac 30 MG/ML SDV IVPUSH SCH ×2 (16:05→22:33)
[2021-05-21] MEDS: oxyCODONE 5 MG Tab PO PRN ×2 (16:12→20:43)
[2021-05-21] MEDS: Sodium Chloride 0.9% 1,000 ML IV SCH (16:17)
[2021-05-21] MEDS: ceFAZolin 1 GM in Premix Bag 1 BAG IV SCH (18:07)
[2021-05-21] MEDS: Nozin Nasal Sanitizer NASBOTH SCH (20:43)
[2021-05-21] MEDS: Docusate Sodium 100 MG Cap PO SCH (20:43)
[2021-05-22] MEDS: Sodium Chloride 0.9% 1,000 ML IV SCH ×2 (00:55→11:16)
[2021-05-22] MEDS: oxyCODONE 5 MG Tab PO PRN ×2 (00:57→15:32)
[2021-05-22] MEDS: ceFAZolin 1 GM in Premix Bag 1 BAG IV SCH ×2 (02:46→11:14)
[2021-05-22] MEDS: Acetaminophen 325 MG Tab PO SCH ×2 (05:38→09:44)
[2021-05-22] MEDS: Enoxaparin 30 MG/0.3 ML Syringe SUBCUT SCH (08:07)
[2021-05-22] MEDS: Docusate Sodium 100 MG Cap PO SCH ×2 (08:08→20:02)
[2021-05-22] MEDS: Celecoxib 200 MG Cap PO SCH ×3 (08:08→20:01)
[2021-05-22] MEDS: Nozin Nasal Sanitizer NASBOTH SCH ×2 (08:08→20:02)
[2021-05-22] MEDS: Citalopram 10 MG Tab PO SCH (08:11)
[2021-05-22] MEDS: Pantoprazole 40 MG Tab.CR PO SCH (09:43)
[2021-05-22] MEDS: Metoprolol Succinate 25 MG Tab.ER PO SCH (14:05)
[2021-05-22] MEDS: amLODIPine 5 MG Tab PO SCH (14:07)
[2021-05-22] MEDS: Acetaminophen 500 MG Tab PO SCH ×2 (17:10→21:38)
[2021-05-23] MEDS: Acetaminophen 500 MG Tab PO SCH ×2 (04:28→10:52)
[2021-05-23] MEDS: Celecoxib 200 MG Cap PO SCH (08:28)
[2021-05-23] MEDS: Enoxaparin 30 MG/0.3 ML Syringe SUBCUT SCH (08:28)
[2021-05-23] MEDS: amLODIPine 5 MG Tab PO SCH (08:28)
[2021-05-23] MEDS: Pantoprazole 40 MG Tab.CR PO SCH (08:29)
[2021-05-23] MEDS: Nozin Nasal Sanitizer NASBOTH SCH (08:29)
[2021-05-23] MEDS: Docusate Sodium 100 MG Cap PO SCH (08:30)
[2021-05-23] MEDS: Citalopram 10 MG Tab PO SCH (08:30)
[2021-05-23] MEDS: Metoprolol Succinate 25 MG Tab.ER PO SCH (08:31)
[2021-05-23] MEDS ORDERED: amLODIPine 5 MG Tab PO SCH (09:00)
[2021-05-23] MEDS ORDERED: Metoprolol Succinate 25 MG Tab.ER PO SCH (09:00)
[2021-05-23] MEDS: oxyCODONE 5 MG Tab PO PRN (14:09)
== END 2021-05-23 15:30 | disposition home health service (06) | DRG 499 ==
LOC: JP.SDS 07:31 → JP.MS 13:45 → JP.SDS 05-22 08:10 → JP.MS 05-22 08:12
PROVIDERS: ADMIT Specialist; ATTEND Specialist
PROC: 30233N1 Transfusion of Nonautologous Red Blood Cells into Peripheral Vein, Percutaneous Approach (ICD-10-PCS; principal; 2021-05-21)
PROC: 0QP704Z Removal of Internal Fixation Device from Left Upper Femur, Open Approach (ICD-10-PCS; principal; 2021-05-21)
DX: T84.195A Other mechanical complication of internal fixation device of left femur, initial encounter (principal); D64.9 Anemia, unspecified; I10 Essential (primary) hypertension; F41.1 Generalized anxiety disorder; Z66 Do not resuscitate; Y83.8 Other surgical procedures as the cause of abnormal reaction of the patient, or of later complication, without mention of misadventure at the time of the procedure; Z20.822 Contact with and (suspected) exposure to COVID-19; Y92.89 Other specified places as the place of occurrence of the external cause; Z85.819 Personal history of malignant neoplasm of unspecified site of lip, oral cavity, and pharynx; Z98.42 Cataract extraction status, left eye; Z98.41 Cataract extraction status, right eye; Z87.19 Personal history of other diseases of the digestive system; Z88.8 Allergy status to other drugs, medicaments and biological substances; Z79.899 Other long term (current) drug therapy; Z79.1 Long term (current) use of non-steroidal anti-inflammatories (NSAID)
CPT/HCPCS: 0241U; 36415; 36430; 76000; 85027; 86850; 86900; 86901; 86920; 86922; 97110-GP; 97116-GP; 97162-GP; 97165-GO; 97530-GP; A9270-GY; J0690; J1650; J1885; J2250; J2370; J2704; J3010; J3490; J7030; J7120; P9016

== ENCOUNTER 2022-01-01 09:23 | Emergency (ER) | payer MEDICARE, OTHER ==
[2022-01-01] MEDS ORDERED: Sodium Chloride 0.9% 10 ML Syringe FLUSH PRN (09:44)
[2022-01-01] MEDS ORDERED: HYDROmorphone 0.5 MG/0.5 ML Syringe IVPUSH ONE (09:44)
[2022-01-01] MEDS ORDERED: Sodium Chloride 0.9% 10 ML Syringe FLUSH ONE (10:09)
[2022-01-01] MEDS ORDERED: Iopamidol 612 MG/ML 100 ML Bottle IV SCH (10:15)
[2022-01-01] MEDS ORDERED: Sodium Chloride 0.9% 50 ML IV SCH (10:15)
[2022-01-01 10:20] LABS: ESTIMATED GFR 50 mL/min (>60)
== END 2022-01-01 13:35 | disposition home or self-care (01) ==
LOC: JP.ED 09:23
DX: K46.9 Unspecified abdominal hernia without obstruction or gangrene (principal); K86.89 Other specified diseases of pancreas; I10 Essential (primary) hypertension; Z88.6 Allergy status to analgesic agent; Z88.8 Allergy status to other drugs, medicaments and biological substances; Z79.899 Other long term (current) drug therapy; Z79.82 Long term (current) use of aspirin
CPT/HCPCS: 36415; 74177; 80053; 81001; 83605; 85025; 86140; 99283; 99285; J3490; Q9967

== ENCOUNTER 2022-05-04 16:54 | Emergency (ER) | payer MEDICARE, OTHER ==
[2022-05-04] MEDS ORDERED: Sodium Chloride 0.9% 10 ML Syringe FLUSH PRN (17:18)
[2022-05-04] MEDS ORDERED: fentaNYL 100 MCG/2 ML SDV IVPUSH ONE (17:20)
[2022-05-04] MEDS ORDERED: Sodium Chloride 0.9% 10 ML Syringe FLUSH ONE (17:25)
[2022-05-04] MEDS ORDERED: Sodium Chloride 0.9% 50 ML IV ONE (17:25)
[2022-05-04] MEDS ORDERED: Iopamidol 612 MG/ML 100 ML Bottle IV ONE (17:25)
[2022-05-04 17:57] LABS: ESTIMATED GFR 41 mL/min (>60)
[2022-05-04] MEDS ORDERED: fentaNYL 50 MCG/ML SDV IVPUSH ONE (19:19)
== END 2022-05-04 19:37 | disposition home or self-care (01) ==
LOC: JP.ED 16:54
DX: R22.1 Localized swelling, mass and lump, neck (principal); I10 Essential (primary) hypertension; M19.90 Unspecified osteoarthritis, unspecified site; Z88.6 Allergy status to analgesic agent; Z79.82 Long term (current) use of aspirin; Z79.899 Other long term (current) drug therapy
CPT/HCPCS: 36415; 70491; 80053; 83605; 85025; 86140; 96374; 96376; 99283; J3010; J3490; Q9967

== ENCOUNTER 2022-05-09 07:40 | Emergency (ER) | payer MEDICARE, OTHER ==
[2022-05-09] MEDS ORDERED: Sodium Chloride 0.9% 10 ML Syringe FLUSH PRN (07:43)
[2022-05-09 08:25] LABS: ESTIMATED GFR 28 mL/min (>60)
[2022-05-09] MEDS ORDERED: Sodium Chloride 0.9% 500 ML IV ONE ×2 (08:53→10:03)
[2022-05-09] MEDS ORDERED: Lidocaine 2% 30 ML, Alum Hydrox/Mag Hydrox/Simeth 30 ML, diphenhydrAMINE 75 MG PO ONE ×6 (08:59→10:00)
== END 2022-05-09 12:00 | disposition home or self-care (01) ==
LOC: JP.ED 07:40
DX: N17.9 Acute kidney failure, unspecified (principal); E86.0 Dehydration; D64.9 Anemia, unspecified; E88.09 Other disorders of plasma-protein metabolism, not elsewhere classified; E46 Unspecified protein-calorie malnutrition; E87.20 Acidosis, unspecified; I10 Essential (primary) hypertension; E03.9 Hypothyroidism, unspecified; Z88.8 Allergy status to other drugs, medicaments and biological substances; Z79.899 Other long term (current) drug therapy; Z79.82 Long term (current) use of aspirin; Z68.1 Body mass index [BMI] 19.9 or less, adult
CPT/HCPCS: 36415; 70450; 80053; 81001; 85025; 85610; 85730; 93005; 99284; A9270; J3490; J7040